=== PATIENT | female | born 1940 | race Caucasian/White ===

== ENCOUNTER → 2016-12-28 | Outpatient (REF) | payer MEDICARE | LOC: M LAB REF 08:30 | PROVIDERS: ATTEND Podiatrist | DX: E11.51 Type 2 diabetes mellitus with diabetic peripheral angiopathy without gangrene (principal) ==

== ENCOUNTER → 2017-03-21 | Outpatient (REF) | payer MEDICARE | LOC: M LAB REF 13:59 | PROVIDERS: ATTEND Internal Medicine Nephrology | DX: N39.0 Urinary tract infection, site not specified (principal) ==

== ENCOUNTER → 2017-03-23 | Outpatient (CLI) | payer MEDICARE ==
[2017-03-23 19:10] LABS: CALCIUM LEVEL 9.7 MG/DL (8.8-10.2); CREATININE FOR GFR 1.75 MG/DL (0.55-1.02); POTASSIUM SERUM 4.7 MEQ/L (3.5-5.1)
== END ==
LOC: M SMT 14:33
PROVIDERS: ATTEND Nurse Practitioner Women's Health
DX: R31.0 Gross hematuria (principal)
CPT/HCPCS: 36415; 80048; G0463

== ENCOUNTER → 2017-04-10 | Outpatient (REF) | payer MEDICARE | LOC: M SMT 17:11 | PROVIDERS: ATTEND Urology | DX: R31.0 Gross hematuria (principal) ==

== ENCOUNTER → 2017-11-16 | Outpatient (REF) | payer MEDICARE | LOC: M LAB REF 13:34 | DX: N39.0 Urinary tract infection, site not specified (principal) | CPT/HCPCS: 87086 ==

== ENCOUNTER → 2019-05-29 | Outpatient (REF) | payer MEDICARE | LOC: M LAB REF 13:35 | PROVIDERS: ATTEND Nurse Practitioner Family | DX: D50.9 Iron deficiency anemia, unspecified (principal); N18.3 Chronic kidney disease, stage 3 (moderate) ==

== ENCOUNTER → 2019-08-28 | Outpatient (REF) | payer MEDICARE | LOC: M LAB REF 16:33 | PROVIDERS: ATTEND Nurse Practitioner Family | DX: N39.0 Urinary tract infection, site not specified (principal) ==

== ENCOUNTER 2020-05-15 19:56 | Emergency (ER) | payer MEDICARE ==
[~2020-05-15] VITALS: Ht 157.5 cm; Wt 94.5 kg
[2020-05-15 23:05] VITALS: BP 160/90
== END 2020-05-15 23:11 | disposition home or self-care (01) ==
LOC: M ED 21:11
DX: F43.0 Acute stress reaction (principal); F33.9 Major depressive disorder, recurrent, unspecified; I11.0 Hypertensive heart disease with heart failure; E11.9 Type 2 diabetes mellitus without complications; J44.9 Chronic obstructive pulmonary disease, unspecified; Z88.0 Allergy status to penicillin

== ENCOUNTER → 2020-06-07 | Outpatient (CLI) | payer MEDICARE | LOC: M LABSMTC 10:26 | PROVIDERS: ATTEND Internal Medicine Cardiovascular Disease | DX: Z20.822 Contact with and (suspected) exposure to COVID-19 (principal) ==

== ENCOUNTER → 2020-06-29 | Outpatient (REF) | payer MEDICARE | LOC: M LAB REF 15:10 | PROVIDERS: ATTEND Podiatrist | DX: M79.672 Pain in left foot (principal); L03.039 Cellulitis of unspecified toe ==

== ENCOUNTER 2020-08-21 12:18 | Observation (INO) | payer MEDICARE ==
[~2020-08-21] VITALS: Ht 154.9 cm; Wt 86.5 kg
[2020-08-21] MEDS ORDERED: TRAD5TAB PO ×2 (12:45→14:43)
[2020-08-21] MEDS ORDERED: CLOP75TA2 PO (12:45)
[2020-08-21] MEDS ORDERED: WARF-58 (12:45)
[2020-08-21] MEDS ORDERED: CALC1CAP31 PO (12:45)
[2020-08-21] MEDS ORDERED: BUSP1TAB PO (12:45)
[2020-08-21] MEDS ORDERED: ALLO100T PO (12:45)
[2020-08-21] MEDS ORDERED: HUMA100I3 SC (12:45)
[2020-08-21] MEDS ORDERED: CARV6.25 PO (12:45)
[2020-08-21] MEDS ORDERED: LEVO100T5 PO (12:45)
[2020-08-21] MEDS ORDERED: OMEP-218 PO (12:45)
[2020-08-21] MEDS ORDERED: DOXY100C (12:45)
[2020-08-21] MEDS ORDERED: VALS40TA9 PO (12:45)
[2020-08-21] MEDS ORDERED: ATOR80TA59 PO (12:45)
[2020-08-21] MEDS ORDERED: PREG75CA2 PO (12:45)
[2020-08-21] MEDS ORDERED: BUME1TAB3 PO (12:45)
--- NOTE | 2020-08-21 12:50 | REP ---
INDICATION: left sided weakness. COMPARISON: Comparison is made with MRI images of the brain from August 27, 2013.. TECHNIQUE: Helical scanning is acquired. 5 mm axial images were reformatted. Coronal MPR images were generated. 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 Bone window settings demonstrate intact bony calvarium. Visualized paranasal sinuses are clear. Vascular calcification is noted heavily involving the carotid siphons bilaterally. On soft tissue window settings, there is moderate generalized volume loss. There are areas of old encephalomalacia in the right and left parietal and bilateral frontal lobes corresponding with areas of encephalomalacia on the August 27, 2013 MRI study. Through consistent with old infarcts. There is also a focal area of encephalomalacia in the right occipital lobe consistent with a lacunar infarct in this location also old. There is no evidence of intracranial hemorrhage. No definite acute infarct is seen. No extra-axial fluid collection or midline shift is observed. IMPRESSION: Diffuse atrophy vascular calcification and multiple old cortical infarcts as above. No acute infarct, hemorrhage, or mass seen.. <Electronically signed by Dennis Christian > 08/21/20 [id number]
[2020-08-21 13:09] LABS: BASO % 0.5 % (0.0-1.0); EOS # 0.2 10^3/uL (0.0-0.5); EOS % 2.4 % (0.0-3.0); HEMATOCRIT 39.9 % (36.0-47.0); HEMOGLOBIN 12.5 g/dl (12.0-15.5); LYMPH % 12.9 % (24.0-44.0); MEAN CORPUSCULAR HEMOGLOBIN 31.1 pg (27.0-33.0); MEAN CORPUSCULAR HGB CONC 31.3 g/dl (32.0-36.5); MEAN CORPUSCULAR VOLUME 99.3 fl (80.0-96.0); MONO # 0.7 10^3/uL (0.0-0.8); MONO % 8.5 % (2.0-8.0); NEUTROPHILS % 75.2 % (36.0-66.0); PLATELET COUNT, AUTOMATED 173 10^3/uL (150-450); RED BLOOD COUNT 4.02 10^6/uL (4.00-5.40)
[2020-08-21 13:21] LABS: PARTIAL THROMBOPLASTIN TIME 41.9 SECONDS (24.2-38.5); PROTHROMBIN TIME 63.5 SECONDS (12.5-14.3)
[2020-08-21 13:37] LABS: INR 7.21
[2020-08-21 13:43] LABS: ALBUMIN 3.3 GM/DL (3.2-5.2); BILIRUBIN,DIRECT 0.5 MG/DL (0.0-0.2); CALCIUM LEVEL 9.7 MG/DL (8.8-10.2); CK-MB VALUE MASS 2.1 NG/ML (<3.6); CREATININE FOR GFR 1.3 MG/DL (0.55-1.30); POTASSIUM SERUM 4.6 MEQ/L (3.5-5.1); THYROID STIMULATING HORMONE 5.34 uIU/ML (0.358-3.740); TOTAL PROTEIN 6.8 GM/DL (6.4-8.2); TROPONIN I 0.05 NG/ML (< 0.10)
--- NOTE | 2020-08-21 13:47 | REP ---
INDICATION: Altered Mental Status. COMPARISON: None. TECHNIQUE: Portable FINDINGS: The technique utilized in obtaining the radiograph has magnified the cardiac silhouette and accentuated the interstitial markings. There is cardiomegaly accentuated by technique. There has been previous median sternotomy. There is a dual chamber bipolar pacemaker device in place. There is a subtle diffuse increase in the interstitial markings throughout the lung masters with a haziness seen throughout the pulmonary vascularity. The osseous structures are intact. IMPRESSION: 1. Cardiomegaly. 2. Mild fibrotic changes with or without mild interstitial edema. The examination is portable and there are no priors for comparison. <Electronically signed by Shant Lynch > 08/21/20 [id number]
[2020-08-21] MEDS ORDERED: WARF4TAB52 PO ×2 (14:43→14:45)
[2020-08-21] MEDS ORDERED: ASPI81TA26 PO (14:45)
[2020-08-21] MEDS ORDERED: CARVedilol 6.25 MG TAB PO ONE (15:50)
[2020-08-21] MEDS ORDERED: VALSARTAN 40MG TABLET (DIOVAN) PO ONE (15:50)
[2020-08-21] MEDS ORDERED: MAALOX 30 ML SUSP *UDC PO PRN (16:15)
[2020-08-21] MEDS ORDERED: MOM 30ML SUSPENSION UDC PO PRN (16:15)
[2020-08-21] MEDS ORDERED: ACETAMINOPHEN TAB 650MG DOSE (2X325MG) PO PRN (16:15)
[2020-08-21] MEDS ORDERED: TOUJ1.2I SC (16:33)
[2020-08-21] MEDS ORDERED: GLUCAGON INJ 1MG VIAL SC PRN (16:50)
[2020-08-21] MEDS ORDERED: GLUCOSE 4GM CHEW TABLET PO PRN (16:50)
[2020-08-21] MEDS ORDERED: DEXTROSE 50% 50 ML SYRINGE IV PRN (16:50)
[2020-08-21] MEDS: HumaLOG INSULIN (NovoLOG) PER UNIT SC SCH (17:30)
--- NOTE | 2020-08-21 18:26 | HPEPDOC ---
[facility] Medical History & Physical Date of Admission Aug 21, 2020 Date of Service: Aug 21, 2020 Primary Care Physician: Akash Cm MD Attending Physician: SHARON TAVAREZ MD History and Physical CHIEF COMPLAINT: Episode of disorientation HISTORY OF PRESENT ILLNESS: Patient is a 80 y/o F with MHx of CAD (s/p multiple stents placements: done in 2014,2016, 2018, followed by Dr. Sotomayor at [facility] cardiology), Chronic A-fib (s/p pacemaker in 12/23/2014), systolic CHF (last echo 05/2020, LVEF 40-50%), CKD, DM2, HLD, CARTER (not on CPAP due to fitting issues, on 2L/min O2 28/11), valvular heart disease (s/p mitral valve replacement and tricuspid valve repair in 2014, on coumadin with INR goal of 2.5-3.5), hx of TIA and CVA, presenting to the ED via EMS c/o episode of disorientation. Per patient, around 1120am today, she was getting in the car and maneuvering her ambulatory oxygen tank between front passenger seats when she suddenly developed an acute episode disorientation/dizziness, prompting patient to call for her daughter. Her daughter reported that she then found patient sitting in the car confused, lips and face turning purple, slumping towards her left side, drooling and unable to respond to questions, prompting daughter to call for EMS. Daughter denied patient with loss of consciousness, shaking movement, loss of bowel or bladder control, fall or head injury during this episode. The episode lasted for 15 minutes and patient returned back to baseline spontaneously (foggy at first but fully recover). She was subsequently brought to ED for evaluation by EMS. Patient reported that she has had 2 other similar episodes over the past 2-3 yrs, most recently in 05/2020, pt was found by her daughter with similar symptoms of confusion, lips turning purple, drooling and unable to respond to questions in the bathroom, with spontaneous recover after approx. 15 minutes, she also sustained an injury in her L foot at that time. Pt did not seek emergency medical evaluation for her prior episodes because she returned to her baseline afterwards. Patient reported that she has no recollection of her episodes. Patient also denied recent fever, chills, CP, cough, palpitation, flu like symptoms, blood in sputum, urine or stool. She reported her BPs were usually in 130s/80s during clinic visits and denied dizziness upon getting up or standing. Of note, patient was recently started on 100mg doxycycline BID two weeks ago for her unhealed L big toe ulcer that was 2/2 injury she sustained during her 05/2020 confusion episode. Patient took Abx for 5 days but was then found with supratherapeutic INR of 8.0. Patient was instructed to stop her coumadin and took 1x5mg Vitamin K on 08/16. Patient reported her INR subsequently improved to 3 on re-evaluation. She has not taken any more Vitamin K since 08/16. Patient is followed by Dr. Sotomayor at [place] and has extensive cardiac history. Her last visit was 1 month ago. Her last nuclear stress test was in 04/2020 showing po ssible lateral wall ischemia with EF of 33%, prompting cardiac catheterization in 05/2020 which revealed findings unchanged from previous. She had an unremarkable pacemaker interrogated in 01/2020 and her most recent echo was in 05/2020 showing LVEF 40-50%. In the ED, patient was at her mental baseline. She was found with supratherapeutic INR (7.21) with negative trop and otherwise unremarkable w orkup. Her head CT revealed no acute infarct, hemorrhage or mass seen. Her CXR was unremarkable. EKG showed atrial sensed paced rhythm at rate of 60 bpm. However, patient was found hypertensive (182/114). Patient was subsequently admitted for her episode of disorientation. PAST MEDICAL HISTORY: 1. CAD (s/p multiple stents placements: done in 2014,2016, 2018) 2. Chronic A-fib (s/p pacemaker in 12/23/2014) 2. Systolic CHF 3. CKD 4. DM2 5. Hypothyroidism 6. Hyperlipidemia 7. Glaucoma 8. CARTER (Pt was told CPAP does not fit her face, unable to use) 9. Valvular heart disease (s/p mitral valve replacement and tricuspid valve repair) 10. PAD 11. Hx of TIA and CVA PAST SURGICAL HISTORY: 1. Coronary angioplasty and stents placements: done in 2014,2016, 2018 2. Pacemaker placement in 12/23/2014 (no defibrillator) 3. Mitral valve replacement and tricuspid valve repair in 2014 4. Cataract extraction 5. Multiple cardiac catheterization (last done in 05/2020) 6. Cholecystectomy 7. Hysterectomy 8. Renal stone surgery 9. Oral surgery 10. Appendectomy 11. Tubal ligation SOCIAL HISTORY: Employment: Retired Tobacco use: Nonsmoker ETOH: Denied Illicit drug use: Denied IV drug use: Denied FAMILY HISTORY: Father: Heart disease with heart surgery Mother: Breast cancer Siblings: 4 sister and 2 brothers Children: 7 children ALLERGIES: Please see below. REVIEW OF SYSTEMS: CONSTITUTIONAL: Denies chills, fever, weakness, fatigue, unexpected weight change, loss of appetite HEENT: Denies headaches, vision changes, hearing changes or throat pain, noted dizziness episode CARDIOVASCULAR: Denies chest pain, palpitations, edema RESPIRATORY: Denies wheezing, dyspnea, cough or hemoptysis GASTROINTESTINAL: Denies nausea, vomiting, abdominal pain, diarrhea, constipation, melena, hematochezia GENITAOURINARY: Denies dysuria, hematuria, urinary frequency, incontinence or retention. SKIN: Denies skin changes, rash, lesions, jaundice, bruising MUSCULOSKELETAL: Denies weakness, muscle or joint pain. NEUROLOGICAL: Denies focal weakness, numbness, tingling, change in Speech PSYCHIATRIC: Denies SI, HI, audio/visual hallucination HEMATOLOGICAL: Denies bruising, excessive bleeding, petechiae HOME MEDICATIONS: Please see below. PHYSICAL EXAMINATION: VITAL SIGNS: See below GENERAL APPEARANCE: Revealed cheerful 80 y/o F sitting upright on ED cot, alert & oriented x3, in no Acute Distress. HEENT Exam: Normocephalic and atraumatic, PERRLA, conjunctiva & lids normal, EOMI, without sclera icteric, mucous membr. moist/pink, pharynx normal, nares patent. NECK: Supple without lymphadenopathy, JVD, thyromegaly LUNGS: Clear to auscultation bilaterally with full breath sounds without rales, wheezing, and crackles. CARDIOVASCULAR: Regular rate and rhythm, normal S1 & S2 without gallops, murmurs, rubs. Pacemaker noted. ABDOMEN: Obese abdomen, soft, non-tender, non-distended with normal bowel sounds. No masses or ecchymosis or hepatosplenomegaly. EXTREMITIES: 1+ pulses in all extremities. No clubbing, cyanosis, edema, tenderness. Ulceration noted on right side of the Left great toe with scab and surrounding warmth and erythema without discharge. 1+ pitting edema distal to L mid tibia, 2+ pitting edema distal to R mid tibia. SKIN: Normal turgor and temperature. Multiple small ecchymosis throughout the body. MUSCULOSKELETAL: Strength +5/5 in all extremities without tenderness. NEUROLOGICAL: Normal speech with intact sensation, cranial nerves III-XII normal, negative pronator drift. PSYCHIATRIC: Normal mood and affect LABORATORY DATA: See below. IMAGIN. CT Head without contrast 08/21/2020 Reported IMPRESSION: Diffuse atrophy vascular calcification and multiple old cortical infarcts as above. No acute infarct, hemorrhage, or mass seen. 2. PORTABLE CHEST X-RAY 08/21/2020 Reported IMPRESSION: 1. Cardiomegaly. 2. Mild fibrotic changes with or without mild interstitial edema. The examination is portable and there are no priors for comparison. MICROBIOLOGY: Please see below. ASSESSMENT: Patient is a 80 y/o F with MHx of CAD (s/p multiple stents placements: done in 2014,2016, 2018, followed by Dr. Sotomayor at [facility] cardiology), Chronic A-fib (s/p pacemaker in 12/23/2014), systolic CHF (last echo 05/2020, LVEF 40-50%), CKD, DM2, HLD, CARTER (not on CPAP due to fitting issues, on 2L/min O2 28/11), valvular heart disease (s/p mitral valve replacement and tricuspid valve repair, on coumadin with INR goal of 2.5-3.5), hx of TIA and CVA, presenting to the ED via EMS c/o episode of disorientation. In the ED, patient was at her mental baseline. She was found with supratherapeutic INR (7.21) with negative trop and otherwise unremarkable workup. Her head CT revealed no acute infarct, hemorrhage or mass seen. Her CXR was unremarkable. EKG showed atrial sensed paced rhythm at rate of 60 bpm. However, patient was found hypertensive (182/114). Patient was subsequently admitted for her episode of disorientation. PLAN: 1. Episode of confusion/ loss of awareness - CVA/TIA vs. possible seizure vs. Hypertensive encephalopathy vs. orthostatic hypertension - Patient was confused for 15 minutes, unable to respond to questioning - Given reported lost of awareness and supratherapeutic INR in ED, unlikely CVA/TIA - Patient's CT head negative for acute infarct, hemorrhage or mass. Contraindicated for MRI due to pacemaker. - EEG to r/o possible seizure given patient was witnessed in a post-ictal state. - EKG in ED showed atrial sensed paced rhythm at rate of 60bpm - Pacemaker interrogated 08/21 and revealed "dual chamber VVI paced, no arrhythmia, battery good for 10 years". - Nursing order for orthostatic hypotension assessment placed, if orthostat assessment negative, will focus on controlling hypertension. - Control hypertension with home dose coreg, Bumex and valsartan. - Echo not indicated since patient's last echo was in 05/2020 with LVEF 40-50% - Check B1, B12, folate level, lipid panel and Hgb a1c 2. Supratherapeutic INR - INR 7.2 in ED - Hold coumadin - No obvious signs of bleeding at this time and INR <9, vitamin K not indicated - Repeat coag panel in am. 3. Hypertension - Patient hypertensive in ED 182/114 but has not taken her morning BP medication - Patient reported baseline BP at 130s/80s - Patient received 1 dose of coreg and valsartan in the ED. - Cont home dose bumex, coreg and valsartan 4. Hx of CAD and valvular heart disease - s/p multiple stents placements: done in 2014,2017, 2019 - s/p mitral valve replacement and tricuspid valve repair in 2014 - s/p pacemaker in 12/23/2014 - Discontinue ASA - Cont atorvastatin and plavix 5. Systolic heart failure - last echo 05/2020, LVEF 40-50% - Cont bumex 6. DM2 - Hold linagliptin - Check Hgb a1c - Cont levemir 36 units qhs - Cont SSI 7. L great toe ulcer - Does not appear infected - Hold doxycycline 8. Hypothyroidism - TSH elevated at 5.34 - Cont levothyroxine, may need recheck outpatient adjustment 9. CARTER - Patient not using CPAP due to fitting issue, has home O2 24/7 prn at 2L/min - Patient O2 saturation at 95% on RA - Cont to monitor DVT Prophylaxis: Patient's INR supratherapeutic, JEANA stocking Diet: 2 gram sodium diet, consistent carbohydrate Baseline ambulatory status: Ambulatory with walker Code status: In discussion with the patient, patient expressed that she does not want to be resuscitated or intubated. After explanation of the procedures with her, she continued to confirm DNR/DNI status. Vital Signs Vital Signs Date Time Temp Pulse Resp B/P (MAP) Pulse Ox O2 Delivery O2 Flow Rate FiO2 08/21/20 15:46 60 95 08/21/20 15:31 232/121 (158) 08/21/20 13:48 16 Room Air 08/21/20 12:49 97.2 Laboratory Data Labs 24H Laboratory Tests 2 08/21/20 12:59: Immature Granulocyte % (Auto) 0.5, Neutrophils (%) (Auto) 75.2H, Lymphocytes (%) (Auto) 12.9L, Monocytes (%) (Auto) 8.5H, Eosinophils (%) (Auto) 2.4, Basophils (%) (Auto) 0.5, Neutrophils # (Auto) 6.0, Lymphocytes # (Auto) 1.0L, Monocytes # (Auto) 0.7, Eosinophils # (Auto) 0.2, Basophils # (Auto) 0.0, Nucleated Red Blood Cells % (auto) 0.0, Prothrombin Time 63.5H, Prothromb Time International Ratio 7.21*H, Activated Partial Thromboplast Time 41.9H, Anion Gap 4L, Glomerular Filtration Rate 42.0, Calcium Level 9.7, Total Bilirubin 1.0, Direct Bilirubin 0.5H, Aspartate Amino Transf (AST/SGOT) 20, Alanine Aminotransferase (ALT/SGPT) 18, Alkaline Phosphatase 210H, Total Creatine Kinase 105, Creatine Kinase MB 2.1, Creatine Kinase MB Relative Index 2.00, Troponin I 0.05, Total Protein 6.8, Albumin 3.3, Albumin/Globulin Ratio 0.9L, Thyroid Stimulating Hormone (TSH) 5.340H CBC/BMP Laboratory Tests 08/21/20 12:59 Microbiology Microbiology 08/21/20 Respiratory Virus Panel (PCR) ([facility]) - Final, Complete Home Medications Scheduled Allopurinol (Allopurinol) 100 Mg Tablet, 100 MG PO BID Aspirin (Aspirin EC) 81 Mg Tablet.dr, 81 MG PO DAILY Atorvastatin Calcium (Atorvastatin Calcium) 80 Mg Tablet, 80 MG PO QHS Bumetanide (Bumetanide) 1 Mg Tablet, 1 MG PO BID Buspirone HCl (Buspirone HCl) 7.5 Mg Tablet, 7.5 MG PO BID Calcitriol (Calcitriol) 0.25 Mcg Capsule, 0.25 MG PO DAILY Carvedilol (Carvedilol) 6.25 Mg Tablet, 6.25 MG PO BID Clopidogrel Bisulfate (Clopidogrel) 75 Mg Tablet, 75 MG PO DAILY Insulin Lispro (Humalog) 100 Unit/1 Ml Cartridge, 45 UNITS SC QHS Levothyroxine Sodium (Levothyroxine Sodium) 100 Mcg Tablet, 100 MCG PO DAILY Linagliptin (Tradjenta) 5 Mg Tablet, 5 MG PO QHS Omeprazole (Omeprazole) 20 Mg Capsule.dr, 20 MG PO DAILY Pregabalin (Pregabalin) 75 Mg Capsule, 75 MG PO BID Valsartan (Valsartan) 40 Mg Tablet, 40 MG PO DAILY Warfarin Sodium (Warfarin Sodium) 1 Mg Tablet, 3 MG PO 5XW monday, ,mon, mon,monday Warfarin Sodium (Warfarin Sodium) 1 Mg Tablet, 1 MG PO 2XW monday and monday Allergies Coded Allergies: Penicillins (Verified Allergy, Intermediate, N/V, 05/15/20) aloe vera (Verified Allergy, Intermediate, N/V skin burning, 05/15/20) A-FIB/CHADSVASC A-FIB History Current/History of A-Fib/PAF?: Yes Current PO Anticoag Therapy: Yes GME ATTESTATION GME ATTESTATION My faculty preceptor for this patient encounter was physically present during the encounter and was fully available. All aspects of the patient interview, examination, medical decision making process, and medical care plan development were reviewed and approved by the faculty preceptor. The faculty preceptor is aware and concurs with the plan as stated in the body of this note and will attest to such by his/her cosignature. KATIA GRANT OMS-3 Aug 21, 2020 18:18
[2020-08-21 19:20] VITALS: BP 139/59
--- NOTE | 2020-08-21 19:57 | ECGEPIP ---
[facility] - ED Test Date: 2020-08-21 Pat Name: TIFFANY CASTILLO Department: Room: - Gender: Female Clinical Biochemist: SHELDON : 1940 Requested By: PASQUALE Mar Order Number: [id number] Reading MD: Eloisa Patterson Measurements Intervals Helen Rate: 60 P: MO: 360 QRS: -85 QRSD: 204 T: 105 QT: 580 QTc: 580 Interpretive Statements Atrial-sensed ventricular-paced rhythm with prolonged AV conduction No prior Electronically Signed on 08-21-2020 19:57:52 EDT by Eloisa Patterson
[2020-08-21] MEDS: allopurinoL 100 MG TAB PO SCH (20:30)
[2020-08-21] MEDS: BUMETANIDE 1 MG TAB PO SCH (20:30)
[2020-08-21] MEDS: PREGABALIN 75 MG CAP(LYRICA) PO SCH (20:30)
[2020-08-21] MEDS: busPIRone 5 MG TAB PO SCH (20:31)
[2020-08-21] MEDS ORDERED: ATORVASTATIN 20 MG TAB PO SCH (21:00)
[2020-08-21] MEDS ORDERED: LEVEMIR (INSULIN DETEMIR) 1 UNITS/0.01ML SC SCH (21:00)
[2020-08-21] MEDS ORDERED: HumaLOG INSULIN (NovoLOG) PER UNIT SC SCH (21:00)
[2020-08-21] MEDS: CARVedilol 6.25 MG TAB PO SCH (21:00)
[2020-08-22] VITALS: BP 169/63
[2020-08-22 04:00] VITALS: BP_SYST 147; BP_SYST 190; BP_DIAS 65; BP_DIAS 77
[2020-08-22] MEDS ORDERED: VALSARTAN 80 MG TAB (DIOVAN) PO ONE (05:25)
[2020-08-22] MEDS: CARVedilol 6.25 MG TAB PO SCH (05:30)
[2020-08-22] MEDS ORDERED: VALSARTAN 40MG TABLET (DIOVAN) PO ONE (05:50)
[2020-08-22] MEDS ORDERED: LEVOTHYROXINE 100MCG TABLET (0.1MG) PO SCH (06:00)
[2020-08-22 06:15] VITALS: BP 195/78
[2020-08-22 06:39] LABS: HEMATOCRIT 36.5 % (36.0-47.0); HEMOGLOBIN 11.5 g/dl (12.0-15.5); MEAN CORPUSCULAR HEMOGLOBIN 31.3 pg (27.0-33.0); MEAN CORPUSCULAR HGB CONC 31.5 g/dl (32.0-36.5); MEAN CORPUSCULAR VOLUME 99.5 fl (80.0-96.0); PLATELET COUNT, AUTOMATED 158 10^3/uL (150-450); RED BLOOD COUNT 3.67 10^6/uL (4.00-5.40); WHITE BLOOD COUNT 6.4 10^3/uL (4.0-10.0)
[2020-08-22 06:49] LABS: PROTHROMBIN TIME 66.8 SECONDS (12.5-14.3)
[2020-08-22 06:55] LABS: INR 7.7
[2020-08-22 06:58] LABS: HEMOGLOBIN A1c 8.4 %
[2020-08-22 07:01] LABS: ALBUMIN 3.1 GM/DL (3.2-5.2); BILIRUBIN,TOTAL 0.9 MG/DL (0.2-1.0); CALCIUM LEVEL 8.6 MG/DL (8.8-10.2); CHOLESTEROL RISK RATIO 3.062 (<5); CREATININE FOR GFR 1.22 MG/DL (0.55-1.30); GLOMERULAR FILTRATION RATE 45.1 (>32); MAGNESIUM LEVEL 2.1 MG/DL (1.8-2.4)
[2020-08-22 08:00] VITALS: BP 141/66
[2020-08-22] MEDS: HumaLOG INSULIN (NovoLOG) PER UNIT SC SCH ×2 (08:32→12:43)
[2020-08-22] MEDS: BUMETANIDE 1 MG TAB PO SCH (08:33)
[2020-08-22] MEDS: busPIRone 5 MG TAB PO SCH (08:33)
[2020-08-22] MEDS: allopurinoL 100 MG TAB PO SCH (08:34)
[2020-08-22] MEDS: PREGABALIN 75 MG CAP(LYRICA) PO SCH (08:34)
[2020-08-22] MEDS ORDERED: OMEPRAZOLE 20 MG CAP PO SCH (09:00)
[2020-08-22] MEDS ORDERED: CLOPIDOGREL 75 MG TAB PO SCH (09:00)
[2020-08-22] MEDS ORDERED: VALSARTAN 80 MG TAB (DIOVAN) PO SCH (09:00)
[2020-08-22] MEDS ORDERED: CALCITRIOL 0.25 MCG CAP (S0169) PO SCH (09:00)
[2020-08-22 12:00] VITALS: BP_SYST 119; BP_SYST 201; BP_DIAS 63; BP_DIAS 77
[2020-08-22 16:00] VITALS: BP 162/72
--- NOTE | 2020-08-22 18:54 | DS.PDOC ---
Discharge Summary General Date of Admission Aug 21, 2020 at 12:19 Date of Discharge 08/22/2020 Attending Physician: DARREL SEARS MD Discharge Summary PROCEDURES PERFORMED DURING STAY: None. ADMITTING DIAGNOSES: - Episode of confusion/loss of awareness. CAD (s/p multiple stents placements: done in 2014,2016, 2018) Chronic A-fib (s/p pacemaker in 12/23/2014) Systolic CHF CKD DM2 Hypothyroidism Hyperlipidemia Glaucoma CARTER (Pt was told CPAP does not fit her face, unable to use) Valvular heart disease (s/p mitral valve replacement and tricuspid valve rep air) . PAD Hx of TIA and CVA DISCHARGE DIAGNOSES: CAD (s/p multiple stents placements: done in 2014,2016, 2018) Chronic A-fib (s/p pacemaker in 12/23/2014) Systolic CHF CKD DM2 Hypothyroidism Hyperlipidemia Glaucoma CARTER (Pt was told CPAP does not fit her face, unable to use) Valvular heart disease (s/p mitral valve replacement and tricuspid valve repair) . PAD Hx of TIA and CVA COMPLICATIONS/CHIEF COMPLAINT: Altered Consciousness Elevated Blood Pressure/Inr. HISTORY OF PRESENT ILLNESS: Carina is an 80-year-old female with past medical history of CAD status post multiple stent placement done in 2014, 2016, 2018, chronic A. fib status post pacemaker in 2014, systolic CHF last echo 2020 ejection fraction of 40-50%, CK 80, DM 2, HDL, CARTER, not on CPAP 2-15 issues on 2 L of oxygen, valvular heart disease, status post mitral valve replacement and tricuspid valve repair on Coumadin INR goal of 2.5-3.5, history of TIA and CVA presented to ED via EMS complaining of episodes of disorientation. In the ED patient was at her mental baseline. She was found with supratherapeutic INR of 7.2 and negative control present otherwise unremarkable workup. Heart head CT revealed no acute infarct, hemorrhage or mass. Chest CT was unremarkable. EKG shows atrial paced rhythm at a rate of 60. However patient was found hypertensive 1 82 x 1 14 and was subsequently admitted. HOSPITAL COURSE: After admission she was given her blood pressure medication Coreg 6.25, valsartan 40 mg and her blood pressure dropped to 120/80 mmHg up sequentially her night dose of medications were held. As a result of which overnight she had an high blood pressure which was treated by her morning dose o f blood pressure medication at 6:30 AM and her blood pressure was normal throughout the day and was subsequently decided to discharge her as her blood pressure stabilized. DISCHARGE MEDICATIONS: Please see below. ALLERGIES: Please see below. PHYSICAL EXAMINATION ON DISCHARGE: VITAL SIGNS: Please see below. General: to let and oriented 3, no acute distress, sitting in bed. Cardiac: Regular rate and rhythm, normal S1 and S2 heard, no murmurs or gallops appreciated. She does have a pacemaker in place. Respiratory: Clear to auscultation bilaterally, normal bed sounds appreciated, no wheezes or rhonchi. Abdomen: Soft, nontender to palpation, normal bowel sounds appreciated. Extremities: 1+ pulses and lower extremity, no pedal edema, she does have an ulcer on left great toe with scab and no surrounding redness or erythema and without any discharge. Neurological: Cranial nerves lll to Xll normal, 4+ strength in bilateral extremities. LABORATORY DATA: Please see below. IMAGING: Head CT done on 08/21/2020 reported as: Diffuse atrophic vascular calcification and multiple old cortical infarcts. No acute infarct, hemorrhage or masses seen Chest x-ray done on 08/21/2020 reported as: Cardiomegaly, mild fibrotic changes with or without mild interstitial edema. The exam is portable and there is no prior for comparison. PROGNOSIS: Good ACTIVITY: As tolerated. DIET: Consistent carbohydrate diet, 2 g sodium diet DISCHARGE PLAN: DISPOSITION: Home DISCHARGE INSTRUCTIONS: 1. Please follow with PCP in one week. 2. Follow with PCP for check of INR and restarting of Coumadin and aspirin. ITEMS TO FOLLOWUP ON ON OUTPATIENT: 1. Follow with PCP in one week 2. Continue taking medication medications regularly DISCHARGE CONDITION: Stable. TIME SPENT ON DISCHARGE: Greater than 30 minutes. Vital Signs/I&Os Vital Signs Date Time Temp Pulse Resp B/P (MAP) Pulse Ox O2 Delivery O2 Flow Rate FiO2 08/22/20 08:00 97.3 60 17 141/66 (91) 99 Nasal Cannula 2.0 I&O- Last 24 Hours up to 6 AM 08/22/20 06:00 Intake Total 0 ml Output Total 400 ml Balance -400 ml Laboratory Data Labs 24H Laboratory Tests 2 08/21/20 12:59: Immature Granulocyte % (Auto) 0.5, Neutrophils (%) (Auto) 75.2H, Lymphocytes (%) (Auto) 12.9L, Monocytes (%) (Auto) 8.5H, Eosinophils (%) (Auto) 2.4, Basophils (%) (Auto) 0.5, Neutrophils # (Auto) 6.0, Lymphocytes # (Auto) 1.0L, Monocytes # (Auto) 0.7, Eosinophils # (Auto) 0.2, Basophils # (Auto) 0.0, Nucleated Red Blood Cells % (auto) 0.0, Prothrombin Time 63.5H, Prothromb Time International Ratio 7.21*H, Activated Partial Thromboplast Time 41.9H, Anion Gap 4L, Glomerular Filtration Rate 42.0, Calcium Level 9.7, Total Bilirubin 1.0, Direct Bilirubin 0.5H, Aspartate Amino Transf (AST/SGOT) 20, Alanine Aminotransferase (ALT/SGPT) 18, Alkaline Phosphatase 210H, Total Creatine Kinase 105, Creatine Kinase MB 2.1, Creatine Kinase MB Relative Index 2.00, Troponin I 0.05, Total Protein 6.8, Albumin 3.3, Albumin/Globulin Ratio 0.9L, Thyroid Stimulating Hormone (TSH) 5.340H 08/21/20 20:04: Bedside Glucose (Misc Panel) 157H 08/22/20 06:01: Nucleated Red Blood Cells % (auto) 0.0, Prothrombin Time 66.8H, Prothromb Time International Ratio 7.70*H, Anion Gap 2L, Glomerular Filtration Rate 45.1, Calcium Level 8.6L, Total Bilirubin 0.9, Aspartate Amino Transf (AST/SGOT) 25, Alanine Aminotransferase (ALT/SGPT) 20, Alkaline Phosphatase 204H, Total Protein 6.0L, Albumin 3.1L, Albumin/Globulin Ratio 1.1L, Estimated Mean Plasma Glucose 194H, Hemoglobin A1c 8.4, Magnesium Level 2.1, Triglycerides Level 91, Total Cholesterol 98, LDL Cholesterol 48, Non-HDL Cholesterol (LDL + VLDL) 66, Total HDL Cholesterol 32L, Cholesterol/HDL Ratio 3.062 08/22/20 12:24: Bedside Glucose (Misc Panel) 104 CBC/BMP Laboratory Tests 08/21/20 12:59 08/22/20 06:01 FSBS Laboratory Tests Test 08/21/20 20:04 08/22/20 12:24 Range/Units Bedside Glucose (Misc Panel) 157 104 83-110 MG/DL Microbiology Microbiology 08/21/20 Respiratory Virus Panel (PCR) ([facility]) - Final, Complete Discharge Medications Scheduled Allopurinol (Allopurinol) 100 Mg Tablet, 100 MG PO BID, (Reported) Atorvastatin Calcium (Atorvastatin Calcium) 80 Mg Tablet, 80 MG PO QHS, (Reported) Bumetanide (Bumetanide) 1 Mg Tablet, 1 MG PO BID, (Reported) Buspirone HCl (Buspirone HCl) 7.5 Mg Tablet, 7.5 MG PO BID, (Reported) Calcitriol (Calcitriol) 0.25 Mcg Capsule, 0.25 MG PO DAILY, (Reported) Carvedilol (Carvedilol) 6.25 Mg Tablet, 6.25 MG PO BID, (Reported) Clopidogrel Bisulfate (Clopidogrel) 75 Mg Tablet, 75 MG PO DAILY, (Reported) Insulin Glargine,Hum.rec.anlog (Toujeo Solostar) 300 Unit/1 Ml Insuln.pen, 45 UNIT SC QHS, (Reported) Levothyroxine Sodium (Levothyroxine Sodium) 100 Mcg Tablet, 100 MCG PO DAILY, (Reported) Linagliptin (Tradjenta) 5 Mg Tablet, 5 MG PO QHS, (Reported) Omeprazole (Omeprazole) 20 Mg Capsule.dr, 20 MG PO DAILY, (Reported) Pregabalin (Pregabalin) 75 Mg Capsule, 75 MG PO BID, (Reported) Valsartan (Valsartan) 40 Mg Tablet, 40 MG PO DAILY, (Reported) Allergies Coded Allergies: Penicillins (Verified Allergy, Intermediate, N/V, 05/15/20) aloe vera (Verified Allergy, Intermediate, N/V skin burning, 05/15/20) GME ATTESTATION My faculty preceptor for this patient encounter was physically present during the encounter and was fully available. All aspects of the patient interview, examination, medical decision making process, and medical care plan development were reviewed and approved by the faculty preceptor. The faculty preceptor is aware and concurs with the plan as stated in the body of this note and will attest to such by his/her cosignature. ATTENDING NOTE I personally examined the patient and the clinical data and discussed the plan as noted by the resident physician detailed above. We are now discharging Ms Dent and emphasized medication compliance especially as her BP was labile with any missed doses. Marisa Fenton MD Aug 22, 2020 12:49 DARREL SEARS MD Aug 23, 2020 07:38
[2020-08-23] MEDS ORDERED: VALSARTAN 40MG TABLET (DIOVAN) PO SCH (09:00)
[2020-08-24 15:00] LABS: FOLATE 20.1 NG/ML
== END 2020-08-22 17:16 | disposition home or self-care (01) ==
LOC: M ED 12:18 → M ED INP 12:19 → ENRESERV 18:32 → M PCU 19:14
PROVIDERS: ADMIT Internal Medicine; ATTEND Internal Medicine
DX: R41.0 Disorientation, unspecified (principal); I25.10 Atherosclerotic heart disease of native coronary artery without angina pectoris; Z98.61 Coronary angioplasty status; I48.20 Chronic atrial fibrillation, unspecified; Z95.0 Presence of cardiac pacemaker; I50.20 Unspecified systolic (congestive) heart failure; N18.9 Chronic kidney disease, unspecified; I11.9 Hypertensive heart disease without heart failure; E11.9 Type 2 diabetes mellitus without complications; E78.49 Other hyperlipidemia; G47.33 Obstructive sleep apnea (adult) (pediatric); I73.9 Peripheral vascular disease, unspecified; Z86.73 Personal history of transient ischemic attack (TIA), and cerebral infarction without residual deficits; Z88.0 Allergy status to penicillin; Z79.4 Long term (current) use of insulin; Z79.01 Long term (current) use of anticoagulants; Z79.899 Other long term (current) drug therapy
CPT/HCPCS: 36415; 70450; 71045; 80048; 80053; 80061; 80076; 82550; 82553; 82607; 82746; 83036; 83735; 84425; 84443; 84484; 85025; 85027; 85610; 85730; 86850; 86900; 86901; 87798; 93005; 93041; 94760; 99285; G0378

== ENCOUNTER → 2021-02-01 | Outpatient (REF) | payer MEDICARE ==
[~2021-02-01] MED LIST: ALLO100T PO; ASPI81TA26 PO; ATOR80TA59 PO; BUME1TAB3 PO; BUSP1TAB PO; CALC1CAP31 PO; CARV6.25 PO; CLOP75TA2 PO; DOXY100C3; HUMA100I3 SC; LEVO100T5 PO; OMEP-218 PO; PREG75CA2 PO; TOUJ1.2I SC; TRAD5TAB PO; VALS40TA9 PO; WARF-58; WARF4TAB52 PO
== END ==
LOC: M LAB REF 16:35
PROVIDERS: ATTEND Surgery
DX: T14.8XXA Other injury of unspecified body region, initial encounter (principal)
CPT/HCPCS: 11044; 11730; 88304; 88311; G0463

== ENCOUNTER 2021-02-20 20:41 | Inpatient (IN) | payer MEDICARE ==
[~2021-02-20] VITALS: Ht 154.9 cm; Wt 84.5 kg
--- OUTSIDE RECORDS SUMMARY | 2021-02-20 20:46 | CCD | Continuity of Care Document ---
Author Author [facility] Organization Unknown Address [address] [place] [id number] Phone [phone] Care Team Providers Care Home Economics Expert Name Role Phone Akash Cm M.D. AUTM [phone] NAN SOTOMAYOR M.D. PMariferCMarifer AUTM [phone] Akash Cm M.D. PCP [phone] Social History Type Date Description Comments Sex Unknown Allergies, Adverse Reactions, Alerts Active Allergies Reaction Severity Comments Date Penicillin V 04/16/2020 Aloe Vera [place] Extract 04/16 Adhesives 04/16/2020 Medications Active Medications SIG Qnty Indications Ordering Provide r Date Potassium Chloride ER 10Meq Capsul es ER take one tablet by mouth twice daily 60caps Nan araiza M.D[facility] 10/20/2020 Ciprofloxacin HCL 250mg Tablets take one tablet by mouth bid x 1 week 14tabs Nan Sotomayor M.D[facility] 10/13/2020 Doxycycline Hyclate 100mg Capsules Take One Tablet By Mouth Twice Daily 20caps Johnnie Brown, P.C. 08/06/2020 Levofloxacin 500mg Tablets 1 by mouth every day 5tabs Nan Sotomayor M.D[facility] 020 Culturelle Capsules 1 by mouth twice a day 30caps Nan Sotomayor M[facility] 020 Valsartan 40mg Tablets 1 by mouth every day 90taflor Sotomayor M.D., P.C. 020 Lumigan 0.01% Solution Tristian Ward DR Simbrinza 1-0.2% Suspension Instill 1 Drop In Each Eye Two Times A Day Unknown Ketorolac Tromethamine 0.5% Soluti on Instill 1 Drop Into The Right Eye Four Times A Day as Directed For 5 Days Unknown BD Pen Needle/Short/Ultra-Fine/31G X 8mm 31G X 8 mm Misc Use as Directed Two Times A Day Unknown Sana Mckenna Solostar 300Unit/ML Solution Pen-Inject Inject 45 Units Under The Skin Once Daily Unknown Atorvastatin Calcium 80mg Tablets Take One Tablet By Mouth Every Day AT Bedtime 90tabs Nan araiza M.D[facility] Bumetanide 1mg Tablets Take One Tablet By Mouth Twice A Day 180tabs Nan Sotomayor M[facility] Calcitriol 0.25mcg Capsules Take One Capsule By Mouth Every Day Unknown Carvedilol 6.25mg Tablets Take One Tablet By Mouth AT Bedtime 180tabs Nan Sotomayor M[facility] Clopidogrel Bisulfate 75mg Tablets Take One Tablet By Mouth Every Day 90tabs Nan Sotomayor M.D. , P.C[facility] Omeprazole 20mg Capsules Akash Hernandez M.D. Levothyroxine Sodium 100mcg Tablets Akash Cm M.D. Buspirone HCL 7.5mg Tablets [facility] Allopurinol 100mg Tablets Trish DockeryBUD Warfarin Sodium 1mg Tablets take 3 mg qd with 1 mg one day of the week only Akash Cm M.D. Pregabalin 75mg Capsules Sol Vera Medications Administered in Office Medication SIG Qnty Indications Ordering Provider Date Lexiscan Injection Nan Sotomayor M.D[facility] 04/09/2020 Technetium TC 99M Sestamibi Injection Nan Sotomayor M.D[facility] 04/09/2020 Technetium TC 99M Sestamibi Injection Nan Sotomayor M.D[facility] 07/25/2017 Technetium TC 99M Sestamibi Injection Nan Sotomayor M.D[facility] 10/07/2016 Vital Signs Date Vital Result Comment 12/14/2020 2:02pm Height 60 inches 5'0" Body Temperature 98.1 F BP Systolic 94 mmHg by palp BP Diastolic 48 mmHg by palp Heart Rate 60 /min O2 % BldC Oximetry 98 % O2@2 L Respiratory Rate 22 /min 11/19/2020 11:15am Height 60 inches 5'0" Body Temperature 97.0 F BP Systolic 105 mmHg BP Diastolic 43 mmHg Heart Rate 60 /min O2 % BldC Oximetry 96 % Results Test Acquired Date Facility Test Result H/L Range Note Laboratory test finding 10/13/2020 [facility] [address] [place] [address] [phone] Magnesium Serum 2.2 mg/dL 1.7 - 2.2 Comprehensive Metabolic Panel 10/13/2020 [facility] [address] [place] [address] [phone] Comprehensive Metabo (SEE NOTE) 1 Sodium 139 mEq/L 134 - 153 Potassium 4.4 mEq/L 3.6 - 5.0 Chloride 96 mEq/L Low 98 - 107 Co2 36 mEq/L High 22 - 30 Glucose 126 mg/dL High 70 - 99 BUN 26 mg/dL High 7 - 21 Creatinine 1.2 mg/dL 0.7 - 1.5 BUN/Creat 22 8 - 27 Total Protein 5.6 g/dL Low 6.3 - 8.2 Albumin 3.4 g/dL Low 3.9 - 5.0 Globulin 2.2 GM/DL Low 2.4 - 3.2 A/G Ratio 1.5 0.8 - 2.0 Calcium 8.7 mg/dL 8.4 - 10.2 Total Bili 0.9 mg/dL 0.2 - 1.3 Alkaline Phos 292 U/L High 38 - 126 Sgot/Ast 17 U/L 5 - 40 SGPT/Alt 12 U/L 7 - 56 Anion Gap 7.0 mmol/L Low 8.0 - 16.0 Age 80 yrs Non-Aa GFR 46 mL/min Afr Amer GFR >60 2 CBC W/Automated Diff 10/13/[address] [address] [phone] CBC W/Automated Diff (SEE NOTE) 3 WBC 8.6 10^3/uL 4.2 - 11.0 RBC 3.74 10^6/uL Low 4.20 - 5.40 Hemoglobin 11.7 g/dL Low 12.0 - 16.0 Hematocrit 35.7 % Low 37.0 - 47.0 MCV 95.5 fL 81.0 - 101 MCH 31.3 pg 27.0 - 34.0 MCHC 32.8 g/dL 31.0 - 36.0 RDW 16.5 % High 11.5 - 14.5 Platelets 171 10^3/uL 150 - 450 MPV 11.5 fL High 7.4 - 10.4 Neut 70.1 % 37.0 - 80.0 Lymph 12.8 % Low 25.0 - 40.0 Lamoure 13.5 % High 3.0 - 8.0 Eos 3.1 % 0.0 - 7.0 Baso 0.3 % 0.0 - 2.5 %Ig 0.2 % High 0.0 - 0.0 %NRBC 0.0 % 0.0 - 0.0 #Neut 6.04 10^3/uL 2.00 - 6.90 #Lymph 1.10 10^3/uL 0.60 - 3.40 #Lamoure 1.16 10^3/uL High 0.00 - 0.90 #Eos 0.27 10^3/uL 0.00 - 0.70 #Baso 0.03 10^3/uL 0.00 - 0.20 #Ig 0.02 10^3/uL 0.00 - 0.10 #NRBC 0.00 10^3/uL 0.00 - 0.00 Manual Diff SEE BELOW Segs 72 % 37 - 80 %Lymph 13 % Low 25 - 40 %Lamoure 14 % High 3 - 8 %Eos 1 % 0 - 7 RBC Morph NOT INDICATED Protime 10/13/[address] [address] [phone] Protime 19.6 seconds High 11.0 - 15.5 Inr 1.64 High 0.93 - 1.23 4 Protime 10/12/[address] [address] [phone] Protime 20.8 seconds High 11.0 - 15.5 Inr 1.76 High 0.93 - 1.23 5 Laboratory test finding 10/12/2020 [facility] [address] [place] [phone] Magnesium Serum 1.9 mg/dL 1.7 - 2.2 Comprehensive Metabolic Panel 10/12/2020 [facility] [address] [place] [phone] Comprehensive Metabo (SEE NOTE) 6 Sodium 140 mEq/L 134 - 153 Potassium 4.0 mEq/L 3.6 - 5.0 Chloride 98 mEq/L 98 - 107 Co2 36 mEq/L High 22 - 30 Glucose 51 mg/dL Low 70 - 99 BUN 24 mg/dL High 7 - 21 Creatinine 1.3 mg/dL 0.7 - 1.5 BUN/Creat 18 8 - 27 Total Protein 5.6 g/dL Low 6.3 - 8.2 Albumin 3.3 g/dL Low 3.9 - 5.0 Globulin 2.3 GM/DL Low 2.4 - 3.2 A/G Ratio 1.4 0.8 - 2.0 Calcium 8.4 mg/dL 8.4 - 10.2 Total Bili 1.0 mg/dL 0.2 - 1.3 Alkaline Phos 244 U/L High 38 - 126 Sgot/Ast 16 U/L 5 - 40 SGPT/Alt 11 U/L 7 - 56 Anion Gap 6.0 mmol/L Low 8.0 - 16.0 Age 80 yrs Non-Aa GFR 42 mL/min Afr Amer GFR >60 7 CBC W/Automated Diff 10/12/[address] [address] [phone] CBC W/Automated Diff (SEE NOTE) 8 WBC 8.1 10^3/uL 4.2 - 11.0 RBC 3.78 10^6/uL Low 4.20 - 5.40 Hemoglobin 11.7 g/dL Low 12.0 - 16.0 Hematocrit 35.8 % Low 37.0 - 47.0 MCV 94.7 fL 81.0 - 101 MCH 31.0 pg 27.0 - 34.0 MCHC 32.7 g/dL 31.0 - 36.0 RDW 16.4 % High 11.5 - 14.5 Platelets 170 10^3/uL 150 - 450 MPV 11.0 fL High 7.4 - 10.4 Neut 66.6 % 37.0 - 80.0 Lymph 15.8 % Low 25.0 - 40.0 Lamoure 13.1 % High 3.0 - 8.0 Eos 3.9 % 0.0 - 7.0 Baso 0.5 % 0.0 - 2.5 %Ig 0.1 % High 0.0 - 0.0 %NRBC 0.0 % 0.0 - 0.0 #Neut 5.41 10^3/uL 2.00 - 6.90 #Lymph 1.28 10^3/uL 0.60 - 3.40 #Lamoure 1.06 10^3/uL High 0.00 - 0.90 #Eos 0.32 10^3/uL 0.00 - 0.70 #Baso 0.04 10^3/uL 0.00 - 0.20 #Ig 0.01 10^3/uL 0.00 - 0.10 #NRBC 0.00 10^3/uL 0.00 - 0.00 Manual Diff SEE BELOW Segs 62 % 37 - 80 Band 0 % 0 - 5 %Lymph 26 % 25 - 40 %Lamoure 9 % High 3 - 8 %Eos 3 % 0 - 7 %Baso 0 % 0 - 2 RBC Morph NOT INDICATED Comprehensive Metabolic Panel 10/11/2020 [facility] [address] [place] [address] [phone] Comprehensive Metabo (SEE NOTE) 9 Sodium 143 mEq/L 134 - 153 Potassium 3.9 mEq/L 3.6 - 5.0 Chloride 97 mEq/L Low 98 - 107 Co2 37 mEq/L High 22 - 30 Glucose 133 mg/dL High 70 - 99 BUN 21 mg/dL 7 - 21 Creatinine 1.3 mg/dL 0.7 - 1.5 BUN/Creat 16 8 - 27 Total Protein 6.1 g/dL Low 6.3 - 8.2 Albumin 3.6 g/dL Low 3.9 - 5.0 Globulin 2.5 GM/DL 2.4 - 3.2 A/G Ratio 1.4 0.8 - 2.0 Calcium 8.3 mg/dL Low 8.4 - 10.2 Total Bili 1.0 mg/dL 0.2 - 1.3 Alkaline Phos 280 U/L High 38 - 126 Sgot/Ast 21 U/L 5 - 40 SGPT/Alt 14 U/L 7 - 56 Anion Gap 9.0 mmol/L 8.0 - 16.0 Age 80 yrs Non-Aa GFR 42 mL/min Afr Amer GFR >60 10 Laboratory test finding 10/11/2020 [facility] [address] [place] [address] [phone] Iron 31 g/dL Low 42 - 135 Laboratory test finding 10/11/2020 [facility] [address] [place] [address] [phone] Magnesium Serum 2.0 mg/dL 1.7 - 2.2 Protime 10/11/2020 [place] [address] [phone] Protime 23.4 seconds High 11.0 - 15.5 Inr 2.05 High 0.93 - 1.23 11 CBC W/Automated Diff 10/11/2020 [place] [address] [phone] CBC W/Automated Diff (SEE NOTE) 12 WBC 7.8 10^3/uL 4.2 - 11.0 RBC 3.93 10^6/uL Low 4.20 - 5.40 Hemoglobin 12.3 g/dL 12.0 - 16.0 Hematocrit 37.7 % 37.0 - 47.0 MCV 95.9 fL 81.0 - 101 MCH 31.3 pg 27.0 - 34.0 MCHC 32.6 g/dL 31.0 - 36.0 RDW 16.8 % High 11.5 - 14.5 Platelets 184 10^3/uL 150 - 450 MPV 10.8 fL High 7.4 - 10.4 Neut 69.8 % 37.0 - 80.0 Lymph 15.2 % Low 25.0 - 40.0 Lamoure 11.7 % High 3.0 - 8.0 Eos 2.8 % 0.0 - 7.0 Baso 0.4 % 0.0 - 2.5 %Ig 0.1 % High 0.0 - 0.0 %NRBC 0.0 % 0.0 - 0.0 #Neut 5.42 10^3/uL 2.00 - 6.90 #Lymph 1.18 10^3/uL 0.60 - 3.40 #Lamoure 0.91 10^3/uL High 0.00 - 0.90 #Eos 0.22 10^3/uL 0.00 - 0.70 #Baso 0.03 10^3/uL 0.00 - 0.20 #Ig 0.01 10^3/uL 0.00 - 0.10 #NRBC 0.00 10^3/uL 0.00 - 0.00 Manual Diff NOT INDICATED RBC Morph NOT INDICATED Protime 10/10/2020 [place] [address] [phone] Protime 29.4 seconds High 11.0 - 15.5 Inr 2.74 High 0.93 - 1.23 13 Laboratory test finding 10/10/2020 [place] [address] [phone] D-Dimer 2.91 ug/mL High 0.27 - 0.50 CBC W/Automated Diff 10/10/2020 [place] [address] [phone] CBC W/Automated Diff (SEE NOTE) 14 WBC 7.1 10^3/uL 4.2 - 11.0 RBC 3.83 10^6/uL Low 4.20 - 5.40 Hemoglobin 12.0 g/dL 12.0 - 16.0 Hematocrit 37.2 % 37.0 - 47.0 MCV 97.1 fL 81.0 - 101 MCH 31.3 pg 27.0 - 34.0 MCHC 32.3 g/dL 31.0 - 36.0 RDW 17.0 % High 11.5 - 14.5 Platelets 185 10^3/uL 150 - 450 MPV 11.7 fL High 7.4 - 10.4 Neut 67.7 % 37.0 - 80.0 Lymph 14.4 % Low 25.0 - 40.0 Lamoure 13.5 % High 3.0 - 8.0 Eos 4.0 % 0.0 - 7.0 Baso 0.3 % 0.0 - 2.5 %Ig 0.1 % High 0.0 - 0.0 %NRBC 0.0 % 0.0 - 0.0 #Neut 4.78 10^3/uL 2.00 - 6.90 #Lymph 1.02 10^3/uL 0.60 - 3.40 #Lamoure 0.95 10^3/uL High 0.00 - 0.90 #Eos 0.28 10^3/uL 0.00 - 0.70 #Baso 0.02 10^3/uL 0.00 - 0.20 #Ig 0.01 10^3/uL 0.00 - 0.10 #NRBC 0.00 10^3/uL 0.00 - 0.00 Manual Diff NOT INDICATED RBC Morph NOT INDICATED Laboratory test finding 10/10/2020 [facility] [address] [place], [place] [id number] [phone] Magnesium Serum 2.2 mg/dL 1.7 - 2.2 Vitamin B12 Serum 587 pg/mL 232 - 1245 Pro-BNP 7701 pg/mL High 0 - 450 Iron 33 g/dL Low 42 - 135 Comprehensive Metabolic Panel 10/10/2020 [facility] [address] [place] [address] [phone] Comprehensive Metabo (SEE NOTE) 15 Sodium 144 mEq/L 134 - 153 Potassium 3.4 mEq/L Low 3.6 - 5.0 Chloride 98 mEq/L 98 - 107 Co2 40 mEq/L High 22 - 30 Glucose 87 mg/dL 70 - 99 BUN 22 mg/dL High 7 - 21 Creatinine 1.3 mg/dL 0.7 - 1.5 BUN/Creat 17 8 - 27 Total Protein 5.5 g/dL Low 6.3 - 8.2 Albumin 3.3 g/dL Low 3.9 - 5.0 Globulin 2.2 GM/DL Low 2.4 - 3.2 A/G Ratio 1.5 0.8 - 2.0 Calcium 8.2 mg/dL Low 8.4 - 10.2 Total Bili 0.7 mg/dL 0.2 - 1.3 Alkaline Phos 247 U/L High 38 - 126 Sgot/Ast 21 U/L 5 - 40 SGPT/Alt 14 U/L 7 - 56 Anion Gap 6.0 mmol/L Low 8.0 - 16.0 Age 80 yrs Non-Aa GFR 42 mL/min Afr Amer GFR >60 16 Cve Panel 10/10/2020 [place] [address] [phone] Cve Panel (SEE NOTE) 17 Cholesterol 83 mg/dL Low 131 - 200 Triglycerides 72 mg/dL 35 - 160 HDL 30 mg/dL 29 - 86 LDL 45 mg/dL Low 65 - 175 Risk Factor 2.8 Low 3.2 - 4.4 LDL/HDL 1.50 1.47 - 3.22 18 Laboratory test finding 10/10/[address] [address] [phone] Troponin T 0.06 NG/ML 0.00 - 0.10 19 TSH Highly Sensitive 16.18 uIU/mL High 0.47 - 5.01 T4 - Free 0.90 ng/dL Low 0.93 - 1.70 Protime 10/09/2020 [place] [address] [phone] Protime 29.0 seconds High 11.0 - 15.5 Inr 2.69 High 0.93 - 1.23 20 Laboratory test finding 10/09/[address] [address] [phone] Magnesium Serum 2.2 mg/dL 1.7 - 2.2 Hgba1c 8.7 % High 4.4 - 6.1 21 Troponin T 0.05 NG/ML 0.00 - 0.10 22 Culture Urine 10/09/[address] [address] [phone] Culture Urine (SEE NOTE) 23 1 COMPREHENSIVE METABOLIC PANE L 2 Male GFR Interprentation 20-49 yrs >60 mL/min Normal 50-59 yrs >56 mL/min Normal 60-69 yrs >49 mL/min Normal 70-79yrs >42 mL/min Normal 80 and above >35 mL/min Normal Female GFR Interpretation 20-39 yrs >60 mL/min Normal 40-49 yrs >58 mL/min Normal 50-59 yrs >51 mL/min Normal 60-69 yrs >45 mL/min Normal 70-79 yrs >39 mL/min Normal 80 and above >32 mL/min Normal 3 COMPLETE BLOOD COUNT 4 \\BLDo\\INR INTERPRETATION\\BLD x\\ Therapeutic range for Coumadin and related oral anticoagulants. -International Normalized Ratio (INR): 2 .0 - 3.0 for Venous Thrombosis, Pulmonary Embolus, Tissue heart valves, Acute PA, Atrial Fibrillation, Valvular heart disease and recurrent Systemic Embolism. -International Normalized Ratio (INR): 2 .5 - 3.5 for Mechanical Prosthetic valve. 5 \\BLDo\\INR INTERPRETATION\\BLD x\\ Therapeutic range for Coumadin and related oral anticoagulants. -International Normalized Ratio (INR): 2 .0 - 3.0 for Venous Thrombosis, Pulmonary Embolus, Tissue heart valves, Acute PA, Atrial Fibrillation, Valvular heart disease and recurrent Systemic Embolism. -International Normalized Ratio (INR): 2 .5 - 3.5 for Mechanical Prosthetic valve. 6 COMPREHENSIVE METABOLIC PANE L 7 Male GFR Interprentation 20-49 yrs >60 mL/min Normal 50-59 yrs >56 mL/min Normal 60-69 yrs >49 mL/min Normal 70-79yrs >42 mL/min Normal 80 and above >35 mL/min Normal Female GFR Interpretation 20-39 yrs >60 mL/min Normal 40-49 yrs >58 mL/min Normal 50-59 yrs >51 mL/min Normal 60-69 yrs >45 mL/min Normal 70-79 yrs >39 mL/min Normal 80 and above >32 mL/min Normal 8 COMPLETE BLOOD COUNT 9 COMPREHENSIVE METABOLIC PANE L 10 Male GFR Interprentation 20-49 yrs >60 mL/min Normal 50-59 yrs >56 mL/min Normal 60-69 yrs >49 mL/min Normal 70-79yrs >42 mL/min Normal 80 and above >35 mL/min Normal Female GFR Interpretation 20-39 yrs >60 mL/min Normal 40-49 yrs >58 mL/min Normal 50-59 yrs >51 mL/min Normal 60-69 yrs >45 mL/min Normal 70-79 yrs >39 mL/min Normal 80 and above >32 mL/min Normal 11 \\BLDo\\INR INTERPRETATION\\BLD x\\ Therapeutic range for Coumadin and related oral anticoagulants. -International Normalized Ratio (INR): 2 .0 - 3.0 for Venous Thrombosis, Pulmonary Embolus, Tissue heart valves, Acute PA, Atrial Fibrillation, Valvular heart disease and recurrent Systemic Embolism. -International Normalized Ratio (INR): 2 .5 - 3.5 for Mechanical Prosthetic valve. 12 COMPLETE BLOOD COUNT 13 \\BLDo\\INR INTERPRETATION\\BLD x\\ Therapeutic range for Coumadin and related oral anticoagulants. -International Normalized Ratio (INR): 2 .0 - 3.0 for Venous Thrombosis, Pulmonary Embolus, Tissue heart valves, Acute PA, Atrial Fibrillation, Valvular heart disease and recurrent Systemic Embolism. -International Normalized Ratio (INR): 2 .5 - 3.5 for Mechanical Prosthetic valve. 14 COMPLETE BLOOD COUNT 15 COMPREHENSIVE METABOLIC PANE L 16 Male GFR Interprentation 20-49 yrs >60 mL/min Normal 50-59 yrs >56 mL/min Normal 60-69 yrs >49 mL/min Normal 70-79yrs >42 mL/min Normal 80 and above >35 mL/min Normal Female GFR Interpretation 20-39 yrs >60 mL/min Normal 40-49 yrs >58 mL/min Normal 50-59 yrs >51 mL/min Normal 60-69 yrs >45 mL/min Normal 70-79 yrs >39 mL/min Normal 80 and above >32 mL/min Normal 17 LIPID PANEL 18 CVE RISK CHOL/HDL LDL/HDL MEN: 1/2 AVERAGE 3.43 1.00 AVERAGE 4.97 3.55 2X AVERAGE 9.55 6.25 3X AVERAGE 23.99 7.99 WOMEN: 1/2 AVERAGE 3.27 1.47 AVERAGE 4.44 3.22 2X AVERAGE 7.05 5.03 3X AVERAGE 11.04 6.14 19 TROPONIN T 0.1 ng/ml Recommended as the clinical th reshold value for Troponin T. 20 \\BLDo\\INR INTERPRETATION\\BLD x\\ Therapeutic range for Coumadin and related oral anticoagulants. -International Normalized Ratio (INR): 2 .0 - 3.0 for Venous Thrombosis, Pulmonary Embolus, Tissue heart valves, Acute PA, Atrial Fibrillation, Valvular heart disease and recurrent Systemic Embolism. -International Normalized Ratio (INR): 2 .5 - 3.5 for Mechanical Prosthetic valve. 21 {A1] {HB] 22 TROPONIN T 0.1 ng/ml Recommended as the clinical th reshold value for Troponin T. 23 _CULTURE URINE_ ^$[id number] ^^[id number] $$714479 ^^527640 $$662985 $$699116 $$629490 $$144637 $$512725 $$792620 $$586577 $$780521 $$340086 $$464880 $$424779 $$478267 $$240922 $$575894 $$128907 $$264954 $$569605 $$256087 $$598813 $$062637 $$878817 $$075789 $$705312 ^^285120 $$809571 $$095964 $$595724 -- Continued on next page -- Patient: ANNA [place] Order: Page 2 Culture: CULTURE URINE Status: Final -- Continued on next page -- Patient: ANNA [place] Order: Page 2 Culture: CULTURE URINE Status: Prelim $$[id number] $$[id number] REPORTED DATE/TIME: 10/13/2020 14:07 Culture: CULTURE URINE Status: Final Isolate 1 Escherichia coli Flag: A . . . . . . .1 10,000-25,000 colony forming units per m L Cefazolin <=4 ug/mL Cefazolin with an KACI <=16 predicts susceptibility to the oral agents cefaclor, cefdinir, cefpodoxime, cefprozil, cefuroxime, cephalexin, and loracarbef when used for therapy of uncomplicated urinary tract infections due to E. coli, Klebsiella pneumoniae, and Proteus mirabilis. Previous result entered on 10/12/2020 07:27 ET Gram negative rods Urine Culture,Comprehensive: P1 Escherichia coli Flag: A Patient: ANNA [place] Order: [id number] Page 3 Culture: CULTURE URINE Status: Final ISOLATE 1 Escherichia coli Isolate 1 Antibiotic KACI Int Units ug/mL Amoxicillin/Clavulanic Acid S S . . . . . .20-8 Ampicillin S S . . . . . .28-1 Cefepime S S . . . . . .6644-9 Ceftriaxone S S . . . . . .141-2 Cefuroxime S S . . . . . .145-3 Ciprofloxacin S S . . . . . .185-9 Ertapenem S S . . . . . .63560-1 Gentamicin S S . . . . . .267-5 Imipenem S S . . . . . .279-0 Levofloxacin S S . . . . . .53531-6 Meropenem S S . . . . . .6652-2 Nitrofurantoin S S . . . . . .363-2 Piperacillin/Tazobactam S S . . . . . .412-7 Tetracycline S S . . . . . .496-0 Tobramycin S S . . . . . .508-2 Trimethoprim/Sulfa S S . . . . . .516-5 P1 Test performed by: [facility] #: [id number] [address] [place] [address] [phone] [facility] [phone] Curriculum Development Specialist : Sae Pena MD NPI #: Locker Room Manager : 10/12/20.XMT.SENT REF 10/13/20.XMT.SENT REF 10/13/20. .to MANUEL HERRMANN via mode m 10/13/20. .to NAUN MTZ via fax Procedures Date Code Description Status 12/14/2020 29330 Office/Outpatient Established Lo w MDM 20-29 Min Completed 12/14/2020 70500 Pacemaker Inerrogation Completed 11/19/2020 37782 Office/Outpatient Established Mo d MDM 30-39 Min Completed 10/20/2020 50611 Office/Outpatient Established Mo d MDM 30-39 Min Completed 10/20/2020 80903 EKG Completed 10/13/2020 94643 Hospital Disch MGMT Completed 10/12/2020 52415 Hospital Care Low Completed 10/11/2020 62150 Hospital Care Low Completed 10/10/2020 15188 Hospital Care Moderate Completed 10/09/2020 32808 Hospital Care Initial Level 2 Co mpleted 09/10/2020 84851 Office/Outpatient Established Lo w MDM 20-29 Min Completed 09/10/2020 87963 Pacemaker Inerrogation Completed 08/06/2020 73044 Office/Outpatient Established Mo d MDM 30-39 Min Completed 07/15/2020 94703 Office/Outpatient Established Mo d MDM 30-39 Min Completed 07/15/2020 07112 EKG Completed Encounters Type Date Location Provider Dx Diagnosis Office Visit 12/14/2020 1:30p [facility] I11.9 Hypertensive heart disease without heart failure E11.9 Type 2 diabetes mellitus wit hout complications I95.9 Hypotension, unspecified Z95.0 Presence of cardiac pacemake r Office Visit 11/19/2020 11:15a [facility] I11.9 Hypertensive heart disease without heart failure E10.9 Type 1 diabetes mellitus wit hout complications I50.20 Unspecified systolic (conges tive) heart failure I34.0 Nonrheumatic mitral (valve) insufficiency Office Visit 10/20/2020 1:15p [facility] I50.20 Unspecified systolic (congestive) heart failure I48.0 Paroxysmal atrial fibrillati on I11.9 Hypertensive heart disease w ithout heart failure I49.49 Other premature depolarizati on Office Visit 09/10/2020 1:30p [facility] I11.9 Hypertensive heart disease without heart failure I48.0 Paroxysmal atrial fibrillati on G45.9 Transient cerebral ischemic attack, unspecified Z95.0 Presence of cardiac pacemake r Office Visit 08/06/2020 11:30a [facility] 466.0 Bronchitis Acute I48.0 Paroxysmal atrial fibrillati on E10.9 Type 1 diabetes mellitus wit hout complications I11.9 Hypertensive heart disease w [facility] heart failure Office Visit 07/15/2020 11:30a [facility] I48.0 Paroxysmal atrial fibrillation E10.9 Type 1 diabetes mellitus wit hout complications I11.9 Hypertensive heart disease w [facility] heart failure I50.20 Unspecified systolic (conges tive) heart failure I49.49 Other premature depolarizati on Assessments Date Code Description Provider 12/14/2020 I11.9 Hypertensive heart disease witho ut heart failure [facility] 12/14/2020 E11.9 Type 2 diabetes mellitus without complications [facility] 12/14/2020 I95.9 Hypotension, unspecified [facility] puentes [facility] 12/14/2020 Z95.0 Presence of cardiac pacemaker Mi susan [facility] 11/19/2020 I11.9 Hypertensive heart disease witho ut heart failure [facility] 11/19/2020 E10.9 Type 1 diabetes mellitus without complications [facility] 11/19/2020 I50.20 Unspecified systolic (congestive ) heart failure [facility] 11/19/2020 I34.0 Nonrheumatic mitral (valve) insu fficiency [facility] 10/20/2020 I50.20 Unspecified systolic (congestive ) heart failure [facility] 10/20/2020 I48.0 Paroxysmal atrial fibrillation Love [facility] 10/20/2020 I11.9 Hypertensive heart disease witho ut heart failure Nan [facility] 10/20/2020 I49.49 Other premature depolarization Love [facility] 10/13/2020 I50.20 Unspecified systolic (congestive ) heart failure Nan [facility] 10/13/2020 E11.9 Type 2 diabetes mellitus without complications Nan [facility]or [facility] 10/13/2020 I10 Essential (primary) hypertension Nan [facility]or [facility] 10/13/2020 I34.0 Nonrheumatic mitral (valve) insu fficiency Nan [facility]otomayor [facility] 10/12/2020 I50.20 Unspecified systolic (congestive ) heart failure Nan [facility]otomayor [facility] 10/12/2020 E11.9 Type 2 diabetes mellitus without complications Nan [facility]otomayor [facility] 10/12/2020 I10 Essential (primary) hypertension Nan [facility]otomayor [facility] 10/12/2020 I34.0 Nonrheumatic mitral (valve) insu fficiency Nan [facility]otomayor [facility] 10/11/2020 I50.20 Unspecified systolic (congestive ) heart failure Nan [facility] 10/11/2020 E11.9 Type 2 diabetes mellitus without complications Nan Sotomayor [facility] 10/11/2020 I10 Essential (primary) hypertension Nan Sotomayor [facility] 10/11/2020 I34.0 Nonrheumatic mitral (valve) insu fficiency Nan [facility]otomayor [facility] 10/10/2020 I50.20 Unspecified systolic (congestive ) heart failure Nan [facility] 10/10/2020 E11.9 Type 2 diabetes mellitus without complications Nan [facility]otomayor [facility] 10/10/2020 I10 Essential (primary) hypertension Nan Sotomayor [facility] 10/10/2020 I34.0 Nonrheumatic mitral (valve) insu fficiency Nan [facility]otomayor [facility] 10/09/2020 I50.20 Unspecified systolic (congestive ) heart failure Nan [facility]or [facility] 10/09/2020 E11.9 Type 2 diabetes mellitus without complications Nan Sotomayor [facility] 10/09/2020 I10 Essential (primary) hypertension Nan Sotomayor [facility] 10/09/2020 I34.0 Nonrheumatic mitral (valve) insu fficiency Nan [facility]or [facility] 09/10/2020 I11.9 Hypertensive heart disease witho ma heart failure Nan [facility]or [facility] 09/10/2020 I48.0 Paroxysmal atrial fibrillation Love Sotomayor [facility] 09/10/2020 G45.9 Transient cerebral ischemic juan antonio ck, unspecified Nan [facility]otomayor M[facility] 09/10/2020 Z95.0 Presence of cardiac pacemaker Mi susan Sotomayor M[facility] 08/06/2020 466.0 Bronchitis Acute Love [facility] 08/06/2020 I48.0 Paroxysmal atrial fibrillation [facility] 08/06/2020 E10.9 Type 1 diabetes mellitus without complications Nan [facility] 08/06/2020 I11.9 Hypertensive heart disease witho ma heart failure [facility] 07/15/2020 I48.0 Paroxysmal atrial fibrillation [facility] 07/15/2020 E10.9 Type 1 diabetes mellitus without complications [facility] 07/15/2020 I11.9 Hypertensive heart disease witho ut heart failure [facility] 07/15/2020 I50.20 Unspecified systolic (congestive ) heart failure [facility] 07/15/2020 I49.49 Other premature depolarization M maurilio [facility] Plan of Treatment Future Appointment(s):* 03/16/2021 1:30 pm - [facility] at [facility]
--- OUTSIDE RECORDS SUMMARY | 2021-02-20 20:46 | CCD ---
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 L97.524 Active confirmed [id number] ALLERGIES Allergen (clinical drug ingredient) Drug/Non Drug Allergy do cumented on EMR Reaction Allergy Type Onset Date Status Penicillin (For Allergies Use Only) Unknown Drug Allerg y Active NASID Unknown Non Drug Allergy Active Motrin Unknown Drug Allergy Active Aloe Unknown Drug Allergy Active Sulfa (for allergy use only) Unknown Drug Allergy Active ENCOUNTERS from 1940 to 2021-02-16 Encounter Location Date Provider Diagnosis [facility] [address] [facility] [phone] [place] [address] Feb, Jayro Cooper Atherosclerosis of [place] of left leg with ulceration of unspecified site I70.249 ; Non-pressure chronic ulcer of other part of left foot with necrosis of bone L97.524 and Tinea unguium B35.1 IMMUNIZATIONS No Information SOCIAL HISTORY Tobacco Use: Social History Observation Description Date Details (start date - stop date) Never Smoker Sex Assigned At : Social History Observation Description Sex Assigned At Unknown Language: Question Answer Notes Languages spoken: Chinese Presybeterian: Question Answer Notes Presybeterian No amish beliefs that would impact health care. Sexual Hx: Question Answer Notes Had sex in the last 12 months (vaginal, oral, or anal)? No LMP: hyster Have you ever had an STD? No Alcohol Screening: Question Answer Notes Did you have a drink containing alcohol in the past year? No Points 0 Interpretation Negative Tobacco Use: Question Answer Notes Are you a: never smoker REASON FOR REFERRAL No Information VITAL SIGNS Weight 189 lbs Feb, Weight-kg 85.73 kg Feb, Height 61 in Feb, BMI 35.71 kg/m2 Feb, Heart Rate 68 /min Feb, Respiratory Rate 20 /min Feb, Temperature 97.8 degrees Fahrenheit Feb, Oximetry 97% ON 2 L Feb, Blood pressure systolic 146 mm Hg Feb, Blood pressure diastolic 57 mm Hg Feb, MEDICATIONS Medication SIG (Take, Route, Frequency, Duration) Notes Start Da te End Date Status Albuterol Sulfate (2.5 MG/3ML) 0.083% 3 ml Inhalation Three times a d ay Active Vitamin C 500 MG Orally Active Plavix 75 MG 1 tablet Orally Once a day Active Potassium Chloride ER 10 MEQ 1 tablet with food Orally Twice a day Active Lumigan 0.01 % 1 drop into affected eye in the evening Ophthalm ic Once a day Active Ferrous Sulfate 324 (65 Fe) MG 1 tablet Orally Once a day Active Bumetanide 2 MG 1 tablet Orally Once a day Active Lyrica 75 MG 1 capsule Orally Twice a day Active Calcium 600-200 MG-UNIT Orally A ctive busPIRone HCl 7.5 MG 1 tablet Orally Twice a day Active Doxycycline Monohydrate 100 MG 1 capsule Orally every 12 hrs Active Tradjenta 5 MG 1 tablet Orally Once a day Active Omeprazole 20 MG 1 capsule Orally Once a day Active Lipitor 20 MG 1 tablet Orally Once a day Active Calcitriol 0.25 MCG 1 capsule Orally Once a day Active Co Q 10 100 MG 1 capsule with a meal Orally Once a day Active Vitamin D 1000 UNIT 1 tablet Orally Once a day Active ProAir HFA 108 (90 Base) mcg/act 2 puffs as needed Inhalation qid prn Active Toujeo SoloStar 300 UNIT/ML as directed Subcutaneous Active Carvedilol 6.25 MG Orally Active Valsartan 40 MG 1 tablet Orally Twice a day for 30 day(s) Active Warfarin Sodium 3 MG 1 tablet Orally Once a day for 30 day(s) Active Levothyroxine Sodium 100 MCG 1 tablet on an empty stom ach in the morning Orally Once a day Active Aspirin 81 MG 1 tablet Orally Once a day for 30 day(s) Active Nitrostat 0.4 MG Sublingual Active Allopurinol 100 MG 1 tablet Orally Once a day Active PROCEDURES from 1940 to 2021-02-16 Procedure Date Ordered Result Body Site Med: Cadexomer Iodine gel topical IODOSORB 10gm 2021-02-10 N/A Medication: 4% Lidocaine topical cream (Anecream) 5gm 2021-02-10 N/A RESULTS No Results REASON FOR VISIT LLE Wound MEDICAL (GENERAL) HISTORY Type Description Date Medical History chronic a-fib Medical History gout Medical History CHF Medical History HTN Medical History HAS PACEMAKER Medical History SPINAL STENOSIS Medical History HEARING LOSS Medical History CHRONIC KIDNEY DISEASE Medical History PVD Medical History DM Medical History SLEEP APNEA Medical History OA Surgical History TUBAL LIGATION 1970 Surgical History HYSTER Surgical History GALLLADDER REMOVED Surgical History BUNIONECTOMY Surgical History REPAIR OF ASD Surgical History MV REPLACEMENT Surgical History pace maker Surgical History Cystoscopy 04/10/17 Hospitalization History SURGERY RELATED Hospitalization History pneumonia/fluid build [facility] [place] No Information Health Concerns No Information MEDICAL EQUIPMENT No Information MENTAL STATUS No Information FUNCTIONAL STATUS No Information ASSESSMENTS Encounter Date Diagnosis Assessment Notes Treatment Notes Treatm ent Clinical Notes Feb, Atherosclerosis of [place] of left leg with ulceration of unspecified site (ICD-10 - I70.249) Feb, 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 (ICD-10 - L97.524) Feb, Tinea unguium (ICD-10 - B35.1) PLAN OF TREATMENT Next Appt Details 10 days Reason: Provider Name:Jayro Raglandjake, 08:45:00 AM, [address], , [place], [address], Insurance Providers Payer Name Payer Address Payer Phone Insured Name Patient Relati onship to Insured Coverage Start Date Coverage End Date [facility] [employer]IONS [facility] CLAIM DIV [address] [facility] [id number] TIFFANY CASTILLO MEDICARE Part A and B [address] [facility] [id number] [phone] TIFFANY CASTILLO self
--- OUTSIDE RECORDS SUMMARY | 2021-02-20 20:46 | CCD | Continuity of Care Document ---
Author Author Joy LOPEZ MD Organization Unknown Address [address] [place] [id number] Phone [phone] Care Team Providers Care Data Processing Specialist Name Role Phone Bolivar Sotomayor M.D. AUTM [phone] Akash Cm D.O. AUTM [phone] [facility] Care Everywhere AUTM Problems Active Problems Provider Date Carotid artery occlusion Bandar Grigsby M.D. Onset: 08/26/19 11 Cerebrovascular disease Bandar Grigsby M.D. Onset: 1 Peripheral vascular disease Bandar Grigsby M.D. Onset: 08/25 Sleep disorder Onset: 10/21/2011 Coronary arteriosclerosis Onset: 013 Abnormal results of cardiovascular function studies Onset: 08/08/2017 Acute on chronic systolic heart failure Onset: 11/09/2016 Body mass index 40+ - severely obese Ons et: 01/05/2017 Carotid artery occlusion Onset: 11/29/19 15 Cerebrovascular accident Onset: 12/18/19 21 Chronic kidney disease Onset: 12/17/2020 Note: Overview: renal calculi Chronic kidney disease stage 3 Onset: Congestive heart failure Onset: 01/07/20 17 Note: Overview: acute on chronic left an d right systolic and diastolic CHF Coronary arteriosclerosis Onset: 021 Coronary arteriosclerosis Onset: 015 Diabetes mellitus Onset: 12/17/2020 Note: Overview: Type 2, insulin requirin g Essential hypertension Onset: 12/17/2020 H/O: rheumatic fever Onset: 11/28/2014 Hearing loss Onset: 12/17/2020 Heart valve disorder Onset: 01/06/2017 Note: Overview: Mitral stenosis, aortic stenosis Hypertensive disorder Onset: 01/06/2017 Hypothyroidism Onset: 12/17/2020 Intermittent claudication Onset: 015 Long-term current use of anticoagulant O nset: 12/17/2020 Note: Overview: coumadin Mitral valve regurgitation Onset: 2014 Non-rheumatic mitral valve stenosis Onse t: 09/01/2017 Osteoarthritis Onset: 12/17/2020 Peripheral arterial disease Onset: 12/17 Peripheral vascular disease Onset: 01/06 Pulmonary hypertension Onset: 01/06/2017 Sciatica Onset: 11/28/2014 Sleep apnea Onset: 12/17/2020 Transient cerebral ischemia Onset: 01/05 Trauma and postoperative pulmonary insufficiency Onset: 03/27/2015 Urinary incontinence Onset: 12/17/2020 Social History Type Date Description Comments Sex Unknown ETOH Use Denies alcohol use Tobacco Use Reviewed: 01/22/21 Patient has never smoked Smoking Status Reviewed: 01/22/21 Patient has never smoked Allergies and adverse reactions Active Allergies Criticality Reaction | Severity Comments Date Penicillin Unable to assess criticality Nausea and Vomiting 10/14/2009 Aloe Unable to assess criticality Nausea and Vomiting 10/21/2011 Penicillins Unable to assess criticality Nausea Only 12/22/2020 Medications Active Medications SIG Qnty Indications Ordering Provide r Date Doxycycline Hyclate 100mg Capsules take one tab twice daily for 10 days 20caps L97.524 Johnnie Marshall 2021 Oxycodone HCL 5mg Tablets Take 1 tablet (5 mg total) by mouth every 4 (four) hours as needed Max Daily Amount: 30 mg 30tabs Unknown 12/19/2020 Hydrocodone-Acetaminophen 5-325mg Tablets 1 tablet by mouth every 4 hours as needed for pain Reference #:[id number] 30tabs Johnnie Lopez M.D. 12/15/2020 Levothyroxine Sodium 88mcg Tablets qd Bandar Grigsby M.D. 2016 Bumetanide 1mg Tablets Take 1 mg by mouth 2 (two) times a day Unknown Buspirone HCL 7.5mg Tablets Take 7.5 mg by mouth 2 (two) times a day Unknown Potassium Chloride Jaky ER 10Meq Tablets ER Take 10 mEq by mouth 2 (two) times a day Unknown Valsartan 40mg Tablets Take 40 mg by mouth daily Unknown Coenzyme Q10 100mg Capsules Take 1 mg by mouth daily Unknown Carvedilol 6.25mg Tablets Take 6.25 mg by mouth once daily Unknown Aspirin Ec Low Dose 81mg Tablets D R Take 81 mg by mouth daily Unknown Albuterol Sulfate (2 .5mg/3ML) 0.083% Nebulizer Take 2.5 mg by nebulization every 6 (six ) hours as needed for shortness of breath Unknown Clopidogrel Bisulfate 75mg Tablets Take 75 mg by mouth daily Unknown Oyster Shell Calcium/D 254-331mi-Yuzt Tablets Take 1 tablet by mouth 2 (two) times a day Unknown Calcitriol 0.25mcg Capsules Take 0.25 mcg by mouth daily Unknown Warfarin Sodium 3mg Tablets Take 3 mg by mouth 5 (five) times a week 5 times weekly on Monday, Monday, Monday, Monday, and Monday Unknown Ascorbic Acid 500mg Tablets Take 500 mg by mouth daily Unknown Nitroglycerin 0.4mg Tablets Sub Place 0.4 mg under the tongue every 5 (five) minutes as needed for chest pain Unknown Allopurinol 100mg Tablets Take 100 mg by mouth 2 (two) times a day Unknown Pregabalin 75mg Capsules Take 75 mg by mouth 2 (two) times a day Unknown [facility] D3 25mcg (1000 Ut) Capsules Take 2,000 Units by mouth daily Unknown Lumigan 0.01% Solution Administer 1 drop to both eyes nightly Unknown Quetiapine Fumarate 25mg Tablets bedtime as needed Unknown Acetaminophen 325mg Tablets take 2 tablets (650 mg total) by mouth every 4 (four) hours as needed Unknown Sana Hart 300U nit/ML Solution Pen-Inject Inject 40 Units Under The Skin Once Daily Unknown Omeprazole 20mg Capsules DR e very day Unknown Vitamin C 500mg Tablets 1 by mouth every day Unknown Vitamin D-3 2000Units Capsules 1 by mouth every day Unknown Atorvastatin Calcium 80mg Tablets every day Unknown Ferrous Gluconate 324(37.5Fe) mg T ablets 1 tab by mouth twice a day Unknown 000 Tradjenta 5mg Tablets every d ay Unknown Lyrica 75mg Capsules twice a day Unknown History Medications Amoxicillin/Clavulanate Potassium 875-125mg Tablets Take 1 tablet by mouth 2 (two) times a day for 10 days 40tabs Unknown 12/19/2020 - 01/19/2021 Doxycycline Hyclate 100mg Tablets 1 tab by mouth twice a day 14tabs Bandar Grigsby M.D. 11/23/2020 - 01/19/2021 Immunizations CPT Code Status Date Vaccine Lot # [id number] Given 01/06/2015 Influenza Virus Vaccine, Quadrivalent, Split, Preservative Free [id number] Given 02/05/2011 Pneumococcal Vaccine 2Yrs Or Older Vital Signs Date Vital Result Comment 2021 9:34am BP Systolic Left Arm 125 mmHg BP Diastolic Left Arm 60 mmHg Heart Rate 64 /min Height 61 inches 5'1" Weight 180.00 lb Weight 81.648 kg BMI (Body Mass Index) 34.0 kg/m2 12/19/2020 3:03pm Heart Rate 60 /min Body Temperature 98.8 F Respiratory Rate 18 /min O2 % BldC Oximetry 99 % Results Test Acquired Date Facility Test Result H/L Range Note Poct glucose 12/19/2020 N2N/CCD Import Glucose, Poc 180 mg/dL High 70 - 99 1 Protime-Inr 12/19/2020 N2N/CCD Import Protime 24.6 s High 9.20 - 11.90 Inr 2.47 2 BMP 12/19/2020 N2N/CCD Import Sodium 142 mmol/L 136 - 145 Potassium 4.2 mmol/L 3.6 - 5.2 Chloride 105 mmol/L 100 - 108 Co2 35 mmol/L High 22 - 31 Anion Gap 2 mmol/L Low 7 - 16 Urea nitrogen 25 mg/dL High 7 - 24 Creatinine 1.43 mg/dL High 0.60 - 1.00 BUN/Creatinine Ratio 17.5 10.0 - 20.0 Ratio Glucose 96 mg/dL 70 - 99 Calcium 8.9 mg/dL 8.4 - 10.2 GFR MDRD Non Af Amer 35 Low >59 ml/min/1.73m2 GFR MDRD Af Amer 43 Low >59 ml/min/1.73m2 Glom Filt Rate, Est See Notes 3 CBC 12/19/2020 N2N/CCD Import WBC 7.2 10*3/uL 4.10 - 11.00 RBC 3.52 10*6/uL Low 4.00 - 5.40 Hemoglobin 10.7 g/dL Low 12.0 - 16.0 Hematocrit 32.1 % Low 36.00 - 47.00 MCV 91.0 fL 80.0 - 95.0 MCH 30.5 pg 27.0 - 32.0 MCHC 33.5 g/dL 32 - 36 RDW 19.0 % High 10.5 - 14.5 Platelets 154 10*3/uL 150 - 450 MPV 9.6 fL 7.1 - 10.7 Type and screen 12/18/2020 N2N/CCD Import Specimen Expiration Date 12/21/2020 Patient Abo/Rh B Positive Antibody Screen Negative Testing site Performed AT [address] [place] [address] Blood bank comment See Notes 4 aPTT 12/18/2020 N2N/CCD Import aPTT 130.9 s Critical high 22.0 - 34.3 5 Covid/Flu AB/RSV PCR 12/17/2020 N2N/CCD Import Specimen Description Nasopharyngeal Influenza A Negative Negative Influenza B Negative Negative RSV Negative Negative Comment See Notes 6 Covid19 Result Not Detected Not Detected 7 First Test Unknown Employed In [employer] [facility] [employer] Unknown Symptomatic No Date Of Sympt Onset Not Applicable Hospitalized Yes Icu No Congregate Care Set Unknown No PT/PTT 12/11/2020 [facility] [address] [place] [address] [phone] Protime 29.8 seconds High 11.0 - 15.5 8 Inr 2.79 High 0.93 - 1.23 PTT 49.2 seconds High 24.8 - 36.7 9 CBC W/Automated Diff 12/11/2020 [facility] [address] [place] [address] [phone] CBC W/Automated Diff (SEE NOTE) 10 WBC 8.1 10^3/uL 4.2 - 11.0 RBC 3.62 10^6/uL Low 4.20 - 5.40 Hemoglobin 11.1 g/dL Low 12.0 - 16.0 Hematocrit 33.6 % Low 37.0 - 47.0 MCV 92.8 fL 81.0 - 101 MCH 30.7 pg 27.0 - 34.0 MCHC 33.0 g/dL 31.0 - 36.0 RDW 17.7 % High 11.5 - 14.5 Platelets 175 10^3/uL 150 - 450 MPV 11.7 fL High 7.4 - 10.4 Neut 69.3 % 37.0 - 80.0 Lymph 15.9 % Low 25.0 - 40.0 [place] 10.5 % High 3.0 - 8.0 Eos 3.6 % 0.0 - 7.0 Baso 0.5 % 0.0 - 2.5 %Ig 0.2 % High 0.0 - 0.0 %NRBC 0.0 % 0.0 - 0.0 #Neut 5.62 10^3/uL 2.00 - 6.90 #Lymph 1.29 10^3/uL 0.60 - 3.40 #[place] 0.85 10^3/uL 0.00 - 0.90 #Eos 0.29 10^3/uL 0.00 - 0.70 #Baso 0.04 10^3/uL 0.00 - 0.20 #Ig 0.02 10^3/uL 0.00 - 0.10 #NRBC 0.00 10^3/uL 0.00 - 0.00 Manual Diff NOT INDICATED RBC Morph NOT INDICATED Basic Metabolic Panel 12/11/2020 [facility] [address] [place] [address] [phone] Basic Metabolic Pane (SEE NOTE) 11 Sodium 139 mEq/L 134 - 153 Potassium 4.4 mEq/L 3.6 - 5.0 Chloride 95 mEq/L Low 98 - 107 Co2 34 mEq/L High 22 - 30 Glucose 226 mg/dL High 70 - 99 BUN 31 mg/dL High 7 - 21 Creatinine 1.5 mg/dL 0.7 - 1.5 BUN/Creat 21 8 - 27 Calcium 9.2 mg/dL 8.4 - 10.2 Anion Gap 10.0 mmol/L 8.0 - 16.0 Age 80 yrs Afr Amer GFR >60 Non-Aa GFR 36 mL/min 12 CBC W/Automated Diff 09/04/2020 [facility] [address] [place] [id number] [phone] CBC W/Automated Diff (SEE NOTE) 13 WBC 8.2 10^3/uL 4.2 - 11.0 RBC 3.84 10^6/uL Low 4.20 - 5.40 Hemoglobin 12.1 g/dL 12.0 - 16.0 Hematocrit 38.0 % 37.0 - 47.0 MCV 99.0 fL 81.0 - 101 MCH 31.5 pg 27.0 - 34.0 MCHC 31.8 g/dL 31.0 - 36.0 RDW 16.4 % High 11.5 - 14.5 Platelets 150 10^3/uL 150 - 450 MPV 11.8 fL High 7.4 - 10.4 Neut 69.3 % 37.0 - 80.0 Lymph 17.8 % Low 25.0 - 40.0 [place] 8.9 % High 3.0 - 8.0 Eos 3.2 % 0.0 - 7.0 Baso 0.4 % 0.0 - 2.5 %Ig 0.4 % High 0.0 - 0.0 %NRBC 0.0 % 0.0 - 0.0 #Neut 5.66 10^3/uL 2.00 - 6.90 #Lymph 1.45 10^3/uL 0.60 - 3.40 #[place] 0.73 10^3/uL 0.00 - 0.90 #Eos 0.26 10^3/uL 0.00 - 0.70 #Baso 0.03 10^3/uL 0.00 - 0.20 #Ig 0.03 10^3/uL 0.00 - 0.10 #NRBC 0.00 10^3/uL 0.00 - 0.00 Manual Diff NOT INDICATED RBC Morph NOT INDICATED [facility] [address] [place], [place] [id number] [phone] Protime 20.0 seconds High 11.0 - 15.5 Inr 1.62 High 0.93 - 1.23 PTT 38.6 seconds High 24.8 - 36.7 14 Basic Metabolic Panel 09/04/[address] [address] [phone] Basic Metabolic Pane (SEE NOTE) 15 Sodium 141 mEq/L 134 - 153 Potassium 4.3 mEq/L 3.6 - 5.0 Chloride 97 mEq/L Low 98 - 107 Co2 35 mEq/L High 22 - 30 Glucose 198 mg/dL High 70 - 99 BUN 25 mg/dL High 7 - 21 Creatinine 1.4 mg/dL 0.7 - 1.5 BUN/Creat 18 8 - 27 Calcium 9.7 mg/dL 8.4 - 10.2 Anion Gap 9.0 mmol/L 8.0 - 16.0 Age 80 yrs Afr Amer GFR >60 Non-Aa GFR 38 mL/min 16 Xray 08/03/2020 Main Office [phone] Arterial Ultrasound Lower Extremity Left <pending> [address] [facility] AFF 2 SUGGESTED THERAPEUTIC RANGES USING INR FOR STABILIZED ANTICOAGULATED PATIENTS: STANDARD DOSE THERAPY INR 2.0-3.0 DVT, PE, PREVENT DVT OR EMBOLISM HIGH DOSE THERAPY INR 2.5-3.5 PREVENT EMBOLISM FROM MECHANICAL HEART VALVE 3 NORMAL KIDNEY FUNCTION OR MILD DISEASE - GFR >OR= 60 CHRONIC KIDNEY DISEASE - GFR 15 - 59 RENAL FAILURE - GFR <15 Est. GFR calculation based on the MDRD study equation, which assumes a steady state for creatinine. Est. GFR should not be used for medication dosing. 4 BLOOD TYPE CONFIRMED. 5 ALERTED CRITICAL RESULT TO A LERTED CRITICAL RESULT TO ALONZO [id number] ON D4 [id number] [place] [id number] 6 SEE NOTE: THE [place] FDA HAS M SHERMAN THIS TEST AVAILABLE UNDER AN EMERGENCY USE AUTHORIZATION (EUA) FOR THE DETECTION AND/OR DIAGNOSIS OF THE VIRUS THAT CAUSES COVID-19. PERFORMED AT [address] [place] [address] 7 THIS ASSAY AMPLIFIES AND DET ECTS THE TARGET RNA USING REAL-TIME PCR. TESTING PERFORMED ON [employer] NEGATIVE 2019_NCOV RT-PCR RESULTS DO NOT PRECLUDE 2019_NCOV INFECTION AND SHOULD NOT BE USED THE SOLE BASIS FOR PATIENT MANAGEMENT DECISIONS. [address]K Cm(he follows her Coumadin) 9 \\BLDo\\INR INTERPRETATION\\BLD x\\ Therapeutic range for Coumadin and related oral anticoagulants. -International Normalized Ratio (INR): 2 .0 - 3.0 for Venous Thrombosis, Pulmonary Embolus, Tissue heart valves, Acute MD Atrial Fibrillation, Valvular heart disease and recurrent Systemic Embolism. -International Normalized Ratio (INR): 2 .5 - 3.5 for Mechanical Prosthetic valve. 10 COMPLETE BLOOD COUNT 11 BASIC METABOLIC PANEL 12 Male GFR Interprentation 20-49 yrs >60 mL/min Normal 50-59 yrs >56 mL/min Normal 60-69 yrs >49 mL/min Normal 70-79yrs >42 mL/min Normal 80 and above >35 mL/min Normal Female GFR Interpretation 20-39 yrs >60 mL/min Normal 40-49 yrs >58 mL/min Normal 50-59 yrs >51 mL/min Normal 60-69 yrs >45 mL/min Normal 70-79 yrs >39 mL/min Normal 80 and above >32 mL/min Normal 13 COMPLETE BLOOD COUNT 14 \\BLDo\\INR INTERPRETATION\\BLD x\\ Therapeutic range for Coumadin and related oral anticoagulants. -International Normalized Ratio (INR): 2 .0 - 3.0 for Venous Thrombosis, Pulmonary Embolus, Tissue heart valves, Acute MD Atrial Fibrillation, Valvular heart disease and recurrent Systemic Embolism. -International Normalized Ratio (INR): 2 .5 - 3.5 for Mechanical Prosthetic valve. 15 BASIC METABOLIC PANEL 16 Male GFR Interprentation 20-49 yrs >60 mL/min Normal 50-59 yrs >56 mL/min Normal 60-69 yrs >49 mL/min Normal 70-79yrs >42 mL/min Normal 80 and above >35 mL/min Normal Female GFR Interpretation 20-39 yrs >60 mL/min Normal 40-49 yrs >58 mL/min Normal 50-59 yrs >51 mL/min Normal 60-69 yrs >45 mL/min Normal 70-79 yrs >39 mL/min Normal 80 and above >32 mL/min Normal Procedures Date Code Description Status 2021 92662 Office/Outpatient Established Mo d MDM 30-39 Min Completed 12/18/2020 07082 Moderate Sedation Se rvices; Same Phys Intl 15 Mins; PT >= 5 Years Completed 12/18/2020 19989 Ultrasound Guidance Completed 12/18/2020 44015 Angiography-Extremity Unilateral Completed 12/18/2020 73297 Catheter Placement A rterial System Init 2ND Ord Abdom/Pel/Low Ext Completed 12/17/2020 14904 Electrocardiogram Tracing Only C ompleted 11/23/2020 24080 Office/Outpatient Established Mo d MDM 30-39 Min Completed 11/23/2020 86696 Duplex Scan Extracranial Arterie s, Complete Bilateral Study Completed 10/14/2020 64769 Office/Outpatient Established Lo w MDM 20-29 Min Completed 09/23/2020 87167 Office/Outpatient Established Lo w MDM 20-29 Min Completed 09/14/2020 16176 Moderate Sedation Se rvices; Same Phys Intl 15 Mins; PT >= 5 Years Completed 09/14/2020 57354 Angiography-Extremity Unilateral Completed 09/14/2020 89135 Femoral-Popliteal Angioplasty Co mpleted 08/03/2020 41241 Office/Outpatient Established Lo w MDM 20-29 Min Completed 08/03/2020 94130 Duplex Scan Lower Extremity, Fol low-Up Or Limited Completed 08/03/2020 54748 Duplex Scan Lower Extremity, Fol low-Up Or Limited Completed Medical Devices Description No Information Available Encounters Type Date Location Provider Dx Diagnosis Office Visit 2021 9:30a Main Office Johnnie Lopez M.D. L03.116 Cellulitis of left lower limb L97.524 Non-prs chronic ulcer oth pr t left foot w necrosis of bone Office Visit 11/23/2020 10:00a Main Office Bandar Grigsby M.D. I65.21 Occlusion and stenosis of right carotid artery I70.245 [place] [place] arteries of le ft leg w ulceration oth prt foot Office Visit 10/14/2020 10:15a Main Office Bandar Grigsby M.D. I70.26 2 [place]scl [place] arteries of extremities w gangrene, left leg Office Visit 09/23/2020 10:15a Main Office Bandar Grigsby M.D. Z95.82 0 Peripheral vascular angioplasty status w implants and grafts Office Visit 08/03/2020 9:30a Main Office Bandar Grigsby M.D. I70.21 2 [place]scl [place] arteries of extrm w intrmt walter, left leg I65.23 Occlusion and stenosis of bi lateral carotid arteries Z48.812 [facility] sys Assessments Date Code Description Provider 2021 L03.116 Cellulitis of left lower limb Johnnie Lopez M.D. 2021 L97.524 Non-pressure chronic ulcer of other part of left foot with necrosis of bone Johnnie Lopez M.D. 12/18/2020 I70.212 Atherosclerosis of n ative arteries of extremities with intermittent claudication, left leg Johnnie Lopez M.D. 11/23/2020 I65.21 Occlusion and stenosis of right carotid artery Bandar Grigsby M.D. 11/23/2020 I65.23 Occlusion and stenosis of bilate ral carotid arteries Bandar Grigsby M.D. 11/23/2020 I70.245 Atherosclerosis of n ative arteries of left leg with ulceration of other part of foot Bandar Grigsby M.D. 11/23/2020 I65.23 Occlusion and stenosis of bilate ral carotid arteries Vascular Lab 10/14/2020 I70.262 Atherosclerosis of n ative arteries of extremities with gangrene, left leg Bandar Grigsby M.D. 09/23/2020 Z95.820 Peripheral vascular angioplasty status with implants and grafts Bandar Grigsby M.D. 09/14/2020 I70.222 Atherosclerosis of n ative arteries of extremities with rest pain, left leg Johnnie Lopez M.D. 08/03/2020 I70.212 Atherosclerosis of n ative arteries of extremities with intermittent claudication, left leg Bandar Grigsby M.D. 08/03/2020 I70.212 Atherosclerosis of n ative arteries of extremities with intermittent claudication, left leg Bandar Grigsby M.D. 08/03/2020 I65.23 Occlusion and stenosis of bilate ral carotid arteries Bandar Grigsby M.D. 08/03/2020 I70.212 Atherosclerosis of n ative arteries of extremities with intermittent claudication, left leg Vascular Lab 08/03/2020 Z48.812 Encounter for surgic al aftercare following surgery on the circulatory system Bandar Grigsby M.D. 08/03/2020 Z48.812 Encounter for surgic al aftercare following surgery on the circulatory system Bandar Grigsby M.D. 08/03/2020 Z48.812 Encounter for surgic al aftercare following surgery on the circulatory system Vascular Lab Plan of Treatment 2021 - Johnnie Lopez M.D.* L03.116 Cellulitis of left lower limb * L97.524 Non-prs chronic ulcer oth prt left foot w necrosis of bone * * Follow up:* pt scheduled for surgery Functional Status Description No Information Available Mental Status Description No Information Available Referrals Description No Information Available
--- OUTSIDE RECORDS SUMMARY | 2021-02-20 20:46 | CCD ---
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 I70.249 Active confirmed 738162034 Problem Tinea unguium B35.1 Active confirmed 008041 005 Problem Gross hematuria R31.0 Active confirmed 1978 91989 Problem 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 Wound Care [address] [facility] [facility] [phone] [place] [address] Jan, Jayro Cooper Atherosclerosis of burns pai[place] ar teries of left leg with ulceration [...] Unknown Language: Question Answer Notes Languages spoken: Lithuanian Muslim: Question Answer Notes Muslim No mormon beliefs that would impact health care. Sexual [...] No Information VITAL SIGNS Weight 189 lbs Jan, Weight-kg 85.73 kg Jan, Height 61 in Jan, BMI 35.71 kg/m2 Jan, Heart Rate 76 /min Jan, Respiratory Rate 20 /min Jan, Temperature 98.4 degrees Fahrenheit Jan, Oximetry 96 on 2L Jan, Blood pressure systolic 93 mm Hg Jan, Blood pressure diastolic 40 mm Hg Jan, MEDICATIONS Medication SIG (Take, Route, Frequency, Duration) Notes Start Da te End Date Status Bumetanide 2 MG 1 tablet Orally Once a day Active ProAir HFA 108 (90 Base) mcg/act 2 puffs as needed Inhalation qid prn Active busPIRone HCl 7.5 MG 1 tablet Orally Twice a day Active Plavix 75 MG 1 tablet Orally Once a day Active Calcium 600-200 MG-UNIT Orally A ctive Potassium Chloride ER 10 MEQ 1 tablet with food Orally Twice a day Active Vitamin D 1000 UNIT 1 tablet Orally Once a day Active Lipitor 20 MG 1 tablet Orally Once a day Active Warfarin Sodium 3 MG 1 tablet Orally Once a day for 30 day(s) Active Nitrostat 0.4 MG Sublingual Active Co Q 10 100 MG 1 capsule with a meal Orally Once a day Active Vitamin C 500 MG Orally Active Omeprazole 20 MG 1 capsule Orally Once a day Active Valsartan 40 MG 1 tablet Orally Twice a day for 30 day(s) Active Carvedilol 6.25 MG Orally Active Doxycycline Monohydrate 100 MG 1 capsule Orally every 12 hrs Active Aspirin 81 MG 1 tablet Orally Once a day for 30 day(s) Active Toujeo SoloStar 300 UNIT/ML as directed Subcutaneous Active Lyrica 75 MG 1 capsule Orally Twice a day Active Lumigan 0.01 % 1 drop into affected eye in the evening Ophthalm ic Once a day Active Levothyroxine Sodium 100 MCG 1 tablet on an empty stom ach in the morning Orally Once a day Active Tradjenta 5 MG 1 tablet Orally Once a day Active Calcitriol 0.25 MCG 1 capsule Orally Once a day Active Allopurinol 100 MG 1 tablet Orally Once a day Active Ferrous Sulfate 324 (65 Fe) MG 1 tablet Orally Once a day Active Albuterol Sulfate (2.5 MG/3ML) 0.083% 3 ml Inhalation Three times a d ay Active PROCEDURES from 1940 to 2021-02-02 Procedure Date Ordered Result Body Site Medication: 2% Lidocaine intradermal 2021-02-01 N/A Medication: 4% Lidocaine topical cream (Anecream) 5gm 2021-02-01 N/A Medication: Silver Nitrate Stick topically 2021-02-01 N/A Med: Cadexomer Iodine gel topical IODOSORB 10gm 2021-02-01 N/A RESULTS No Results REASON FOR VISIT Left great toe MEDICAL (GENERAL) HISTORY Type Description Date Medical [...] History SURGERY RELATED Hospitalization History pneumonia/fluid build [facility] 08[facility]2020 Goals Section No Information Health Concerns No Information MEDICAL EQUIPMENT No Information MENTAL STATUS No Information FUNCTIONAL STATUS No Information ASSESSMENTS Encounter Date Diagnosis Assessment Notes Treatment Notes Treatm ent Clinical Notes Jan, 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 Cooper. I have reviewed the above order, written by Inge Cartwright, chakaibpolo, and I verify that it is accurate. 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 Cooper. I have reviewed the above order, written by kingsley James, and I verify that it is accurate.Iodosorb and Hydrofera Blue rope to be utilized 3 times a week to the left great toe covering foam dressing 4 x 4 Future Test Test Name Order Date Pathology Request For Service [id number] Next Appt Details 10 days Reason: Provider Name:Jayro Cooper, 08:15:00 AM, [address], , [place], [address], Provider Name:Jayro Cooper, 09:15:00 AM, [address], , [place], [address], Insurance Providers Payer Name Payer Address Payer Phone Insured Name Patient Relati onship to Insured Coverage Start Date Coverage End Date MEDICARE Part A and B [address] [facility] [phone] [facility] CLAIM DIV [address] [facility] [id number] TIFFANY CASTILLO
--- OUTSIDE RECORDS SUMMARY | 2021-02-20 20:46 | CCD | Continuity of Care Document ---
Author Author Joy LOPEZ MD Organization Unknown Address [address] [place] [address] Phone [phone] Care Team Providers Care Molding Technician Name Role Phone Bolivar Sotomayor M.D. AUTM [phone] Akash Cm D.O. AUTM [phone] [facility] Care Everywhere AUTM [phone] Problems Active Problems Provider Date Carotid artery [...] Status Reviewed: 01/22/21 Patient has never smoked Allergies, Adverse Reactions, Alerts Active Allergies Reaction Severity Comments Date Penicillin Nausea and Vomiting 10/15/19 10 Aloe Nausea and Vomiting 10/21/19 12 Penicillins Nausea Only 12/22/2020 Medications Active Medications SIG [...] 4 hours as needed for pain Reference #:[id number] 30tabs Johnnie Lopez M.D. 12/15/2020 Levothyroxine Sodium 88mcg Tablets qd Bandar Grigsby M.D. 2016 Allopurinol 100mg Tablets Take 100 mg by mouth 2 (two) times a day Unknown Ascorbic Acid 500mg Tablets Take 500 mg by mouth daily Unknown Warfarin Sodium 3mg Tablets Take 3 mg by mouth 5 (five) times a week 5 times weekly on Monday, Monday, Monday, Monday, and Monday Unknown Calcitriol 0.25mcg Capsules Take 0.25 mcg by mouth daily Unknown Oyster Shell Calcium/D [id number] Tablets Take 1 tablet by mouth 2 (two) times a day Unknown Clopidogrel Bisulfate 75mg Tablets Take 75 mg by mouth daily Unknown Albuterol Sulfate (2 .5mg/3ML) 0.083% Nebulizer Take 2.5 mg by nebulization every 6 (six ) hours as needed for shortness of breath Unknown Aspirin Ec Low Dose 81mg Tablets D R Take 81 mg by mouth daily Unknown Carvedilol 6.25mg Tablets Take 6.25 mg by mouth once daily Unknown Coenzyme Q10 100mg Capsules Take 1 mg by mouth daily Unknown Valsartan 40mg Tablets Take 40 mg by mouth daily Unknown Potassium Chloride Jaky ER 10Meq Tablets ER Take 10 mEq by mouth 2 (two) times a day Unknown Buspirone HCL 7.5mg Tablets Take 7.5 mg by mouth 2 (two) times a day Unknown Bumetanide 1mg Tablets Take 1 mg by mouth 2 (two) times a day Unknown Nitroglycerin 0.4mg Tablets Sub Place 0.4 mg under the tongue every 5 (five) minutes as needed for chest pain Unknown Pregabalin 75mg Capsules Take 75 mg [...] Once Daily Unknown Omeprazole 20mg Capsules DR cuellar Unknown Vitamin C 500mg Tablets 1 by [...] CPT Code Status Date Vaccine Lot # [id number] Given 01/06/2015 Influenza Virus Vaccine, Quadrivalent, Split, Preservative Free [id number] Given 02/05/2011 Pneumococcal Vaccine 2Yrs Or Older [...] Antibody Screen Negative Testing site Performed AT [address] [place] [address] Blood bank comment See Notes 4 aPTT 12/18/2020 N2N/CCD Import aPTT 130.9 s Critical high 22.0 - 34.3 5 Covid/Flu AB/RSV PCR 12/17/2020 N2N/CCD Import Specimen Description Nasopharyngeal Influenza A Negative Negative Influenza B Negative Negative RSV Negative Negative Comment See Notes 6 Covid19 Result Not Detected Not Detected 7 First Test Unknown [facility]ed [facility] Unknown Symptomatic No Date Of Sympt Onset Not Applicable Hospitalized Yes Icu No Congregate Care Set Unknown No PT/PTT 12/11/2020 [facility] [address] [place] [address] [phone] Protime 29.8 seconds High 11.0 - 15.5 8 Inr 2.79 High 0.93 - 1.23 PTT 49.2 seconds High 24.8 - 36.7 9 CBC W/Automated Diff 12/11/2020 [facility] [address] [place] [address] [phone] CBC W/Automated Diff (SEE NOTE) 10 WBC [...] Lymph 15.9 % Low 25.0 - 40.0 Beaver 10.5 % High 3.0 - 8.0 Eos 3.6 % 0.0 - 7.0 Baso 0.5 % 0.0 - 2.5 %Ig 0.2 % High 0.0 - 0.0 %NRBC 0.0 % 0.0 - 0.0 #Neut 5.62 10^3/uL 2.00 - 6.90 #Lymph 1.29 10^3/uL 0.60 - 3.40 #Beaver 0.85 10^3/uL 0.00 - 0.90 #Eos 0.29 10^3/uL 0.00 - 0.70 #Baso 0.04 10^3/uL 0.00 - 0.20 #Ig 0.02 10^3/uL 0.00 - 0.10 #NRBC 0.00 10^3/uL 0.00 - 0.00 Manual Diff NOT INDICATED RBC Morph NOT INDICATED Basic Metabolic Panel 12/11/2020 [facility] [address] [place] [id number] [phone] Basic Metabolic Pane (SEE NOTE) 11 Sodium [...] 36 mL/min 12 CBC W/Automated Diff 09/04/2020 [facility] [address] [place] [address] [phone] CBC W/Automated Diff (SEE NOTE) 13 WBC [...] Lymph 17.8 % Low 25.0 - 40.0 Beaver 8.9 % High 3.0 - 8.0 Eos 3.2 % 0.0 - 7.0 Baso 0.4 % 0.0 - 2.5 %Ig 0.4 % High 0.0 - 0.0 %NRBC 0.0 % 0.0 - 0.0 #Neut 5.66 10^3/uL 2.00 - 6.90 #Lymph 1.45 10^3/uL 0.60 - 3.40 #Beaver 0.73 10^3/uL 0.00 - 0.90 #Eos 0.26 10^3/uL 0.00 - 0.70 #Baso 0.03 10^3/uL 0.00 - 0.20 #Ig 0.03 10^3/uL 0.00 - 0.10 #NRBC 0.00 10^3/uL 0.00 - 0.00 Manual Diff NOT INDICATED RBC Morph NOT INDICATED [facility] [address] [place] [address] [phone] Protime 20.0 seconds High 11.0 - 15.5 Inr 1.62 High 0.93 - 1.23 PTT 38.6 seconds High 24.8 - 36.7 14 Basic Metabolic Panel 09/04/2020 [facility] [address] [place] [address] [phone] Basic Metabolic Pane (SEE NOTE) 15 Sodium [...] 38 mL/min 16 Xray 08/03/2020 Main Office [phone] Arterial Ultrasound Lower Extremity Left <pending> 1 PERFORMED BY [facility] 2 SUGGESTED THERAPEUTIC RANGES USING INR FOR [...] TO A LERTED CRITICAL RESULT TO ALONZO [id number] [place] D4 [id number] [id number] 6 SEE NOTE: THE [place] FDA HAS M SHERMAN THIS TEST AVAILABLE UNDER AN EMERGENCY USE AUTHORIZATION (EUA) FOR THE DETECTION AND/OR DIAGNOSIS OF THE VIRUS THAT CAUSES COVID-19. PERFORMED AT [address] [place] [address] 7 THIS ASSAY AMPLIFIES AND DET ECTS THE TARGET RNA USING REAL-TIME PCR. TESTING PERFORMED ON Fib[employer] NEGATIVE 2019_NCOV RT-PCR RESULTS DO NOT PRECLUDE 2019_NCOV INFECTION AND SHOULD NOT BE USED THE SOLE BASIS FOR PATIENT MANAGEMENT DECISIONS. [address]K Cm(he follows her Coumadin) 9 \\BLDo\\INR INTERPRETATION\\BLD x\\ Therapeutic range for Coumadin and related oral anticoagulants. -International Normalized Ratio (INR): 2 .0 - 3.0 for Venous Thrombosis, Pulmonary Embolus, Tissue heart valves, Acute MT Atrial Fibrillation, Valvular heart disease and recurrent [...] Thrombosis, Pulmonary Embolus, Tissue heart valves, Acute MT Atrial Fibrillation, Valvular heart disease and recurrent [...] mL/min Normal Procedures Date Code Description Status 12/18/2020 95033 Moderate Sedation Se rvices; Same Phys Intl 15 Mins; PT >= 5 Years Completed 12/18/2020 85497 Ultrasound Guidance Completed 12/18/2020 39339 Angiography-Extremity Unilateral Completed 12/18/2020 50834 Catheter Placement A rterial System Init 2ND Ord Abdom/Pel/Low Ext Completed 12/17/2020 41755 Electrocardiogram Tracing Only C ompleted 11/23/2020 27860 Duplex Scan Extracranial Arterie s, Complete Bilateral Study Completed 09/14/2020 34072 Moderate Sedation Se rvices; Same Phys Intl 15 Mins; PT >= 5 Years Completed 09/14/2020 30641 Angiography-Extremity Unilateral Completed 09/14/2020 89493 Femoral-Popliteal Angioplasty Co mpleted 08/03/2020 57110 Duplex Scan Lower Extremity, Fol low-Up Or Limited Completed 08/03/2020 89994 Duplex Scan Lower Extremity, Fol low-Up Or Limited Completed Medical Devices Description No Information Available Encounters Type Date Location Provider Dx Diagnosis Office Visit 11/23/2020 10:00a Main Office Bandar Grigsby M.D. I65.21 Occlusion and stenosis of right carotid artery I70.245 [facility] [place] arteries of le ft leg w ulceration oth prt foot Office Visit 10/14/2020 10:15a Main Office Bandar Grigsby M.D. 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 Z95.82 0 Peripheral vascular angioplasty status w implants and grafts Office Visit 08/03/2020 9:30a Main Office Bandar Grigsby M.D. I70.21 2 [facility] [place] arteries of extrm w intrmt walter, left leg I65.23 Occlusion and stenosis of bi lateral carotid arteries Z48.812 Encntr for surgical aftcr fo llowing surgery on the circ sys Assessments Date [...] Vascular Lab Plan of Treatment 2021 - Love Marshall.D.* L03.116 Cellulitis of left lower limb * L97.524 Non-prs chronic ulcer oth prt left foot w necrosis of bone * * Follow up:* pt scheduled for surgery Functional Status Description No Information Available Mental Status Description No Information Available Referrals Description No Information Available
--- OUTSIDE RECORDS SUMMARY | 2021-02-20 20:46 | CCD | Continuity of Care Document ---
Author Author [facility] Organization Unknown Address [address] [place] [address] Phone [phone] Care Team Providers Care Hvac Manager Name Role Phone Akash Cm M.D. AUTM [phone] NAN SOTOMAYOR M.D. PMariferCMarifer AUTM [phone] Akash Cm M.D. PCP [phone] Social History Type Date Description Comments Sex Unknown Allergies, Adverse Reactions, Alerts Active Allergies Reaction Severity Comments Date Penicillin V 04/16/2020 Aloe Vera [place] Extract 04/16 Adhesives 04/16/2020 Medications Active Medications [...] M.D. Buspirone HCL 7.5mg Tablets Trish Dockery [facility] Allopurinol 100mg Tablets Trish DockeryBUD [...] H/L Range Note Laboratory test finding 10/13/2020 [facility] [address] [place] [address] [phone] Magnesium Serum 2.2 mg/dL 1.7 - 2.2 Comprehensive Metabolic Panel 10/13/2020 [facility] [address] [place] [address] [phone] Comprehensive Metabo (SEE NOTE) 1 Sodium 139 [...] GFR >60 2 CBC W/Automated Diff 10/13/[address] [address] [phone] CBC W/Automated Diff (SEE NOTE) 3 WBC [...] Lymph 12.8 % Low 25.0 - 40.0 [place] 13.5 % High 3.0 - 8.0 Eos 3.1 % 0.0 - 7.0 Baso 0.3 % 0.0 - 2.5 %Ig 0.2 % High 0.0 - 0.0 %NRBC 0.0 % 0.0 - 0.0 #Neut 6.04 10^3/uL 2.00 - 6.90 #Lymph 1.10 10^3/uL 0.60 - 3.40 #[place] 1.16 10^3/uL High 0.00 - 0.90 #Eos 0.27 10^3/uL 0.00 - 0.70 #Baso 0.03 10^3/uL 0.00 - 0.20 #Ig 0.02 10^3/uL 0.00 - 0.10 #NRBC 0.00 10^3/uL 0.00 - 0.00 Manual Diff SEE BELOW Segs 72 % 37 - 80 %Lymph 13 % Low 25 - 40 %[place] 14 % High 3 - 8 %Eos 1 % 0 - 7 RBC Morph NOT INDICATED Protime 10/13/[address] [address] [phone] Protime 19.6 seconds High 11.0 - 15.5 Inr 1.64 High 0.93 - 1.23 4 Protime 10/12/[address] [address] [phone] Protime 20.8 seconds High 11.0 - 15.5 Inr 1.76 High 0.93 - 1.23 5 Laboratory test finding 10/12/2020 [facility] [address] [place] [address] [phone] Magnesium Serum 1.9 mg/dL 1.7 - 2.2 Comprehensive Metabolic Panel 10/12/2020 [facility] [address] [place] [address] [phone] Comprehensive Metabo (SEE NOTE) 6 Sodium 140 [...] GFR >60 7 CBC W/Automated Diff 10/12/[address] [address] [phone] CBC W/Automated Diff (SEE NOTE) 8 WBC [...] Lymph 15.8 % Low 25.0 - 40.0 [place] 13.1 % High 3.0 - 8.0 Eos 3.9 % 0.0 - 7.0 Baso 0.5 % 0.0 - 2.5 %Ig 0.1 % High 0.0 - 0.0 %NRBC 0.0 % 0.0 - 0.0 #Neut 5.41 10^3/uL 2.00 - 6.90 #Lymph 1.28 10^3/uL 0.60 - 3.40 #[place] 1.06 10^3/uL High 0.00 - 0.90 #Eos 0.32 10^3/uL 0.00 - 0.70 #Baso 0.04 10^3/uL 0.00 - 0.20 #Ig 0.01 10^3/uL 0.00 - 0.10 #NRBC 0.00 10^3/uL 0.00 - 0.00 Manual Diff SEE BELOW Segs 62 % 37 - 80 Band 0 % 0 - 5 %Lymph 26 % 25 - 40 %[place] 9 % High 3 - 8 %Eos 3 % 0 - 7 %Baso 0 % 0 - 2 RBC Morph NOT INDICATED Comprehensive Metabolic Panel 10/11/2020 [facility] [address] [place] [address] [phone] Comprehensive Metabo (SEE NOTE) 9 Sodium 143 [...] GFR >60 10 Laboratory test finding 10/11/2020 [facility] [address] [place] [address] [phone] Iron 31 g/dL Low 42 - 135 Laboratory test finding 10/11/2020 [facility] [address] [place] [address] [phone] Magnesium Serum 2.0 mg/dL 1.7 - 2.2 Protime 10/11/2020 [place] [address] [phone] Protime 23.4 seconds High 11.0 - 15.5 Inr 2.05 High 0.93 - 1.23 11 CBC W/Automated Diff 10/11/2020 [place] [address] [phone] CBC W/Automated Diff (SEE NOTE) 12 WBC [...] Lymph 15.2 % Low 25.0 - 40.0 [place] 11.7 % High 3.0 - 8.0 Eos 2.8 % 0.0 - 7.0 Baso 0.4 % 0.0 - 2.5 %Ig 0.1 % High 0.0 - 0.0 %NRBC 0.0 % 0.0 - 0.0 #Neut 5.42 10^3/uL 2.00 - 6.90 #Lymph 1.18 10^3/uL 0.60 - 3.40 #[place] 0.91 10^3/uL High 0.00 - 0.90 #Eos 0.22 10^3/uL 0.00 - 0.70 #Baso 0.03 10^3/uL 0.00 - 0.20 #Ig 0.01 10^3/uL 0.00 - 0.10 #NRBC 0.00 10^3/uL 0.00 - 0.00 Manual Diff NOT INDICATED RBC Morph NOT INDICATED Protime 10/10/2020 [place] [address] [phone] Protime 29.4 seconds High 11.0 - 15.5 Inr 2.74 High 0.93 - 1.23 13 Laboratory test finding 10/10/2020 [place] [address] [phone] D-Dimer 2.91 ug/mL High 0.27 - 0.50 CBC W/Automated Diff 10/10/2020 [place] [address] [phone] CBC W/Automated Diff (SEE NOTE) 14 WBC [...] Lymph 14.4 % Low 25.0 - 40.0 [place] 13.5 % High 3.0 - 8.0 Eos 4.0 % 0.0 - 7.0 Baso 0.3 % 0.0 - 2.5 %Ig 0.1 % High 0.0 - 0.0 %NRBC 0.0 % 0.0 - 0.0 #Neut 4.78 10^3/uL 2.00 - 6.90 #Lymph 1.02 10^3/uL 0.60 - 3.40 #[place] 0.95 10^3/uL High 0.00 - 0.90 #Eos 0.28 10^3/uL 0.00 - 0.70 #Baso 0.02 10^3/uL 0.00 - 0.20 #Ig 0.01 10^3/uL 0.00 - 0.10 #NRBC 0.00 10^3/uL 0.00 - 0.00 Manual Diff NOT INDICATED RBC Morph NOT INDICATED Laboratory test finding 10/10/2020 [facility] [address] [place], [place] [address] [phone] Magnesium Serum 2.2 mg/dL 1.7 - 2.2 Vitamin B12 Serum 587 pg/mL 232 - 1245 Pro-BNP 7701 pg/mL High 0 - 450 Iron 33 g/dL Low 42 - 135 Comprehensive Metabolic Panel 10/10/2020 [facility] [address] [place] [address] [phone] Comprehensive Metabo (SEE NOTE) 15 Sodium 144 [...] Amer GFR >60 16 Cve Panel 10/10/2020 [place] [address] [phone] Cve Panel (SEE NOTE) 17 Cholesterol 83 mg/dL Low 131 - 200 Triglycerides 72 mg/dL 35 - 160 HDL 30 mg/dL 29 - 86 LDL 45 mg/dL Low 65 - 175 Risk Factor 2.8 Low 3.2 - 4.4 LDL/HDL 1.50 1.47 - 3.22 18 Laboratory test finding 10/10/[address] [address] [phone] Troponin T 0.06 NG/ML 0.00 - 0.10 19 TSH Highly Sensitive 16.18 uIU/mL High 0.47 - 5.01 T4 - Free 0.90 ng/dL Low 0.93 - 1.70 Protime 10/09/2020 [place] [address] [phone] Protime 29.0 seconds High 11.0 - 15.5 Inr 2.69 High 0.93 - 1.23 20 Laboratory test finding 10/09/[address] [address] [phone] Magnesium Serum 2.2 mg/dL 1.7 - 2.2 Hgba1c 8.7 % High 4.4 - 6.1 21 Troponin T 0.05 NG/ML 0.00 - 0.10 22 Culture Urine 10/09/[address] [address] [phone] Culture Urine (SEE NOTE) 23 1 COMPREHENSIVE [...] Thrombosis, Pulmonary Embolus, Tissue heart valves, Acute MT, Atrial Fibrillation, Valvular heart disease and recurrent Systemic Embolism. -International Normalized Ratio (INR): 2 .5 - 3.5 for Mechanical Prosthetic valve. 5 \\BLDo\\INR INTERPRETATION\\BLD x\\ Therapeutic range for Coumadin and related oral anticoagulants. -International Normalized Ratio (INR): 2 .0 - 3.0 for Venous Thrombosis, Pulmonary Embolus, Tissue heart valves, Acute MT, Atrial Fibrillation, Valvular heart disease and recurrent [...] Thrombosis, Pulmonary Embolus, Tissue heart valves, Acute MT, Atrial Fibrillation, Valvular heart disease and recurrent Systemic Embolism. -International Normalized Ratio (INR): 2 .5 - 3.5 for Mechanical Prosthetic valve. 12 COMPLETE BLOOD COUNT 13 \\BLDo\\INR INTERPRETATION\\BLD x\\ Therapeutic range for Coumadin and related oral anticoagulants. -International Normalized Ratio (INR): 2 .0 - 3.0 for Venous Thrombosis, Pulmonary Embolus, Tissue heart valves, Acute MT, Atrial Fibrillation, Valvular heart disease and recurrent [...] Thrombosis, Pulmonary Embolus, Tissue heart valves, Acute MT, Atrial Fibrillation, Valvular heart disease and recurrent Systemic Embolism. -International Normalized Ratio (INR): 2 .5 - 3.5 for Mechanical Prosthetic valve. 21 {A1] {HB] 22 TROPONIN T 0.1 ng/ml Recommended as the clinical th reshold value for Troponin T. 23 _CULTURE URINE_ ^$[id number] ^^032129 $$792494 ^^421295 $$807011 $$545998 $$008968 $$076881 $$522116 $$171224 $$570956 $$437750 $$293492 $$220654 $$206955 $$072615 $$989025 $$239220 $$650071 $$282219 $$997807 $$233026 $$800348 $$876079 $$046131 $$171629 $$704332 ^^656517 $$336044 $$948074 $$860120 -- Continued on next page -- Patient: ANNA Medina Order: Page 2 Culture: CULTURE URINE Status: Final -- Continued on next page -- Patient: ANNA Medina Order: Page 2 Culture: CULTURE URINE Status: Prelim $$[id number] $$[id number] REPORTED DATE/TIME: 10/13/2020 14:07 Culture: CULTURE URINE [...] coli Flag: A Patient: ANNA Medina Order: [id number] Page 3 Culture: CULTURE URINE Status: Final [...] S S . . . . . .12190-7 Gentamicin S S . . . . . .267-5 Imipenem S S . . . . . .279-0 Levofloxacin S S . . . . . .25468-5 Meropenem S S . . . . . .6652-2 Nitrofurantoin S S . . . . . .363-2 Piperacillin/Tazobactam S S . . . . . .412-7 Tetracycline S S . . . . . .496-0 Tobramycin S S . . . . . .508-2 Trimethoprim/Sulfa S S . . . . . .516-5 P1 Test performed by: [facility] #: [id number] [address] [place] [address] [id number] [facility] [address] Rn Rehab : Sae Pena MD NPI #: Hospitalist Nocturnist Physician : 10/12/20.XMT.SENT REF 10/13/20.XMT.SENT REF 10/13/20. .to MANUEL HERRMANN via mode m 10/13/20. .to NAUN MTZ via fax Procedures Date Code Description Status 11/19/2020 66861 Office/Outpatient Established Mo d MDM 30-39 Min Completed 10/20/2020 40060 Office/Outpatient Established Mo d MDM 30-39 Min Completed 10/20/2020 85555 EKG Completed 10/13/2020 23094 Hospital Disch MGMT Completed 10/12/2020 39199 Hospital Care Low Completed 10/11/2020 09013 Hospital Care Low Completed 10/10/2020 30409 Hospital Care Moderate Completed 10/09/2020 90313 Hospital Care Initial Level 2 Co mpleted 09/10/2020 61071 Office/Outpatient Established Lo w MDM 20-29 Min Completed 09/10/2020 50669 Pacemaker Inerrogation Completed 08/06/2020 05389 Office/Outpatient Established Mo d MDM 30-39 Min Completed 07/15/2020 22566 Office/Outpatient Established Mo d MDM 30-39 Min Completed 07/15/2020 43629 EKG Completed 06/17/2020 70467 Office/Outpatient Established Mo d MDM 30-39 Min Completed Encounters Type Date Location Provider Dx Diagnosis Office Visit 11/19/2020 11:15a [facility] Nan [facility]ayor [facility] I11.9 Hypertensive heart disease without heart failure E10.9 Type 1 diabetes mellitus wit hout complications I50.20 Unspecified systolic (conges tive) heart failure I34.0 Nonrheumatic mitral (valve) insufficiency Office Visit 10/20/2020 1:15p [facility] Nan [facility]otomayor M[facility] I50.20 Unspecified systolic (congestive) heart failure I48.0 Paroxysmal atrial fibrillati on I11.9 Hypertensive heart disease w ithout heart failure I49.49 Other premature depolarizati on Office Visit 09/10/2020 1:30p [facility] Nan Sotomayor M[facility] I11.9 Hypertensive heart disease without heart failure I48.0 Paroxysmal atrial fibrillati on G45.9 Transient cerebral ischemic attack, unspecified Z95.0 Presence of cardiac pacemake r Office Visit 08/06/2020 11:30a [facility] Nan [facility]ayor M[facility] 466.0 Bronchitis Acute I48.0 Paroxysmal atrial fibrillati on E10.9 Type 1 diabetes mellitus wit hout complications I11.9 Hypertensive heart disease w [facility] heart failure Office Visit 07/15/2020 11:30a [facility] Nan Sotomayor M[facility] I48.0 Paroxysmal atrial fibrillation E10.9 Type 1 diabetes mellitus wit hout complications I11.9 Hypertensive heart disease w [facility] heart failure I50.20 Unspecified systolic (conges tive) heart failure I49.49 Other premature depolarizati on Office Visit 06/17/2020 10:00a [facility] Nan Sotomayor M[facility] .[facility] I48.0 Paroxysmal atrial fibrillation E10.9 Type 1 diabetes mellitus wit hout complications I11.9 Hypertensive heart disease w [facility] heart failure E78.5 Hyperlipidemia, unspecified Assessments Date Code Description Provider 11/19/2020 I11.9 Hypertensive heart disease witho ut [...] P.C. 09/10/2020 I11.9 Hypertensive heart disease witho sd heart failure Nan Sotomayor M.D[facility] 09/10/2020 I48.0 Paroxysmal atrial fibrillation Love Sotomayor M.D[facility] 09/10/2020 G45.9 Transient cerebral ischemic juan antonio ck, unspecified Nan Sotomayor M.D[facility] 09/10/2020 Z95.0 Presence of cardiac pacemaker Jonelle Sotomayor M.D., P.C. 08/06/2020 466.0 Bronchitis Acute Love Brown, P.C. 08/06/2020 I48.0 Paroxysmal atrial fibrillation Love Sotomayor M.D[facility] 08/06/2020 E10.9 Type 1 diabetes mellitus without complications Nan Sotomayor M.D[facility] 08/06/2020 I11.9 Hypertensive heart disease witho sd heart failure Nan Sotomayor M.D[facility] 07/15/2020 I48.0 Paroxysmal atrial fibrillation Love Sotomayor M.D[facility] 07/15/2020 E10.9 Type 1 diabetes mellitus without complications Nan Sotomayor M.D[facility] 07/15/2020 I11.9 Hypertensive heart disease witho sd heart failure Nan Sotomayor M.D[facility] 07/15/2020 I50.20 Unspecified systolic (congestive ) heart failure Nan Sotomayor M.D[facility] 07/15/2020 I49.49 Other premature depolarization Love Sotomayor M.D[facility] 06/17/2020 I48.0 Paroxysmal atrial fibrillation Love Sotomayor M.D[facility] 06/17/2020 E10.9 Type 1 diabetes mellitus without complications Nan Sotomayor M.D[facility] 06/17/2020 I11.9 Hypertensive heart disease witho ut heart failure Nan Sotomayor M.D[facility] 06/17/2020 E78.5 Hyperlipidemia, unspecified Renetta Sotomayor M.D[facility] P.C[facility] Plan of Treatment Future Appointment(s):* 03/16/2021 1:30 pm - Nan S[facility]or [facility] at [facility]
--- OUTSIDE RECORDS SUMMARY | 2021-02-20 20:46 | CCD ---
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 Active confirmed 485393813 ALLERGIES Allergen (clinical drug ingredient) Drug/Non Drug Allergy do cumented on EMR Reaction Allergy Type Onset Date Status Penicillin (For Allergies Use Only) Unknown Drug Allerg y Active NASID Unknown Non Drug Allergy Active Motrin Unknown Drug Allergy Active Aloe Unknown Drug Allergy Active Sulfa (for allergy use only) Unknown Drug Allergy Active ENCOUNTERS from 1940 to 2021-02-02 Encounter Location Date Provider Diagnosis [facility] [address] [facility] [phone] [place] [address] Jan, Jayro Cooper IMMUNIZATIONS No Information SOCIAL HISTORY Tobacco Use: Social History Observation Description Date Details (start date - stop date) Never Smoker Sex Assigned At : Social History Observation Description Sex Assigned At Unknown Language: Question Answer Notes Languages spoken: Cymraes Hindu: Question Answer Notes Hindu No yarsani beliefs that would impact health care. Sexual [...] REASON FOR REFERRAL No Information VITAL SIGNS No information MEDICATIONS Medication SIG (Take, Route, Frequency, Duration) [...] Three times a d ay Active PROCEDURES No Information RESULTS No Results REASON FOR VISIT Packing fell out MEDICAL (GENERAL) HISTORY Type Description Date Medical [...] History SURGERY RELATED Hospitalization History pneumonia/fluid build up-[place] [facility] 08/2020 Goals Section No Information Health Concerns No Information MEDICAL EQUIPMENT No Information MENTAL STATUS No Information FUNCTIONAL STATUS No Information ASSESSMENTS No Information PLAN OF TREATMENT Next Appt Details Provider Name:Jayro Cooper, 08:15:00 AM, [address], , [place], [address], Provider Name:Jayro Cooper, 09:15:00 AM, [address], , [place], [address], Insurance Providers Payer Name Payer Address Payer Phone Insured Name Patient Relati onship to Insured Coverage Start Date Coverage End Date MEDICARE Part A and B [address] [facility] [phone] TI[employer] [facility] OPTIONS [facility] CLAIM [facility] [address] [facility] [phone] TIFFANY CASTILLO
--- OUTSIDE RECORDS SUMMARY | 2021-02-20 20:46 | CCD ---
Author Author [facility] Organization [facility] Address Unknown Phone Unavailable Care Team Providers Care Brimming Machine Operator Name Role Phone Jayro Cooper Unavailable PROBLEMS Type Condition ICD9-CM Code [id number] Code Onset Dates Condition S tatus W/U Status Risk SNOMED Code Notes Problem Gross hematuria R31.0 Active confirmed 197805 ALLERGIES Allergen (clinical drug ingredient) Drug/Non Drug Allergy do cumented on EMR Reaction Allergy Type Onset Date Status Sulfa (for allergy use only) Unknown Drug Allergy Active Penicillin (For Allergies Use Only) Unknown Drug Allerg y Active Motrin Unknown Drug Allergy Active Aloe Unknown Drug Allergy Active ENCOUNTERS from 1940 to 2020-12-24 Encounter Location Date Provider Diagnosis [facility] [address] [facility] [phone] [place] [address] Dec, Jayro Cooper IMMUNIZATIONS No Information SOCIAL HISTORY Tobacco Use: Social History Observation Description Date Details (start date - stop date) Never Smoker Sex Assigned At : Social History Observation Description Sex Assigned At Unknown Sexual Hx: Question Answer Notes Had sex [...] Notes Start Da te End Date Status Vitamin D 1000 UNIT 1 tablet Orally Once a day Active Omeprazole 20 MG 1 capsule Orally Once a day Active Calcitriol 0.25 MCG 1 capsule Orally Once a day Active Mupirocin 2 % 1 application to affected area Externally Three times a day Active Doxycycline Monohydrate 100 MG 1 capsule Orally every 12 hrs Active Plavix 75 MG 1 tablet Orally Once a day Active HumaLOG Mix 75/25 (75-25) 100 UNIT/ML Subcutaneous Active Carvedilol 6.25 MG Orally Active Bumetanide 2 MG 1 tablet Orally Once a day Active Nitrostat 0.4 MG Sublingual Active Ramipril 2.5 MG 1 capsule Orally Once a day Active Lumigan 0.01 % 1 drop into affected eye in the evening Ophthalm ic Once a day Active Ferrous Sulfate 324 (65 Fe) MG 1 tablet Orally Once a day Active Lyrica 75 MG 1 capsule Orally Twice a day Active Potassium Chloride ER 10 MEQ 1 tablet with food Orally Twice a day Active Cipro 500 MG 1 tablet Orally as directed- 1 hour prior to cystoscopy for 1 dose(s) Mar, Active Levothyroxine Sodium 88 MCG 1 tablet on an empty stoma ch in the morning Orally Once a day Active Vitamin C 500 MG Orally Active CPAP Machine Not-Taking Co Q 10 100 MG 1 capsule with a meal Orally Once a day Active Glimepiride 1 MG 1 tablet with breakfast or t he first main meal of the day Orally Once a day Active Calcium 600-200 MG-UNIT Orally A ctive Coumadin 1 MG 1 tablet Orally Once a day Active Tradjenta 5 MG 1 tablet Orally Once a day Active Folic Acid 1 MG 1 tablet Orally Once a day Active Cipro 500 MG 1 tablet Orally Twice a day for 3 days Active Lipitor 20 MG 1 tablet Orally Once a day Active ProAir HFA 108 (90 Base) mcg/act 2 puffs as needed Inhalation qid prn Active Allopurinol 100 MG 1 tablet Orally Once a day Active Albuterol Sulfate (2.5 MG/3ML) 0.083% 3 ml Inhalation Three times a d ay Active PROCEDURES No Information RESULTS No Results REASON FOR VISIT OUTREACH ASSISTANT REFERRAL [facility] MEDICAL (GENERAL) HISTORY Type Description Date Medical [...] History Cystoscopy 04/10/17 Hospitalization History SURGERY RELATED Goals Section No Information Health Concerns No Information MEDICAL EQUIPMENT No Information MENTAL STATUS No Information FUNCTIONAL STATUS No Information ASSESSMENTS No Information PLAN OF TREATMENT Medication Medication Name Sig Start Date Stop Date Cipro 500 MG 1 tablet Orally Twice a day for 3 days Insurance Providers Payer Name Payer Address Payer Phone Insured Name Patient Relati onship to Insured Coverage Start Date Coverage End Date MEDICARE Part A and B [address] [facility] [id number] [phone] TIFFANY CASTILLO [facility] HEALTH CARE OPTIONS [facility] CLAIM DIV [id number] [facility] [phone] TIFFANY CASTILLO
--- OUTSIDE RECORDS SUMMARY | 2021-02-20 20:46 | CCD | Continuity of Care Document ---
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 AUTM [phone] Akash Cm D.O. AUTM [phone] [facility] Care Everywhere AUTM Problems Active Problems [...] Use Denies alcohol use Tobacco Use Reviewed: 11/23/20 Patient has never smoked Smoking Status Reviewed: 11/23/20 Patient has never smoked Allergies, Adverse Reactions, Alerts Active Allergies Reaction Severity Comments Date Penicillin Nausea and Vomiting 10/15/19 10 Aloe Nausea and Vomiting 10/21/19 12 Penicillins Nausea Only 12/22/2020 Medications Active Medications SIG Qnty Indications Ordering Provide r Date Oxycodone HCL 5mg Tablets Take 1 tablet (5 mg total) by mouth every 4 (four) hours as needed Max Daily Amount: 30 mg 30tabs Unknown 12/19/2020 Amoxicillin/Clavulanate Potassium 875-125mg Tablets Take 1 tablet by mouth 2 (two) times a day for 10 days 40tabs Unknown 12/19/2020 Hydrocodone-Acetaminophen 5-325mg Tablets 1 tablet by mouth every 4 hours as needed for pain Reference #[id number] 30tabs Johnnie Lopez M.D. 12/15/2020 Doxycycline Hyclate 100mg Tablets 1 tab by mouth twice a day 14tabs Bandar Grigsby M.D. 11/23/2020 Levothyroxine Sodium 88mcg Tablets qd Bandar Grigsby M.D. 2016 Tradjenta 5mg Tablets Take 5 mg by mouth daily Unknown Allopurinol 100mg Tablets Take 100 mg by mouth 2 (two) times a day Unknown Ascorbic Acid 500mg Tablets Take 500 mg by mouth daily Unknown Warfarin Sodium 1mg Tablets Take 1 mg by mouth 2 (two) times a week With 3 mg on Monday and Unknown Warfarin Sodium 3mg Tablets Take 3 mg by mouth 5 (five) times a week 5 times weekly on Monday, Monday, Monday, Monday, and Monday Unknown Calcitriol 0.25mcg Capsules Take 0.25 mcg by mouth daily Unknown Atorvastatin Calcium 80mg Tablets Take 80 mg by mouth daily Unknown Levothyroxine Sodium 100mcg Tablet s Take 100 mcg by mouth daily Unknown 0 Ferrous Gluconate 324(37.5Fe) mg T ablets Take 324 mg by mouth 2 (two) times a day Unknown Oyster Shell Calcium/D [id number] Tablets Take 1 tablet by mouth 2 [...] Take 1 mg by mouth daily Unknown Omeprazole Magnesium 20.6(20Base) mg Capsules DR Take 20 mg by mouth daily Unknown Valsartan 40mg Tablets Take 40 mg by mouth daily Unknown Potassium Chloride Jaky ER 10Meq Tablets ER Take 10 mEq by mouth 2 (two) times a day Unknown Acetaminophen 325mg Tablets Take 650 mg by mouth every 6 (six) hours as needed for pain Unk nown Buspirone HCL 7.5mg Tablets Take 7.5 mg by mouth 2 (two) times a day Unknown Bumetanide 1mg Tablets Take 1 mg by mouth 2 (two) times a day Unknown Plavix 75mg Tablets 1 po qd 30tabs Unknown Lyrica 75mg Capsules twice a day Unknown Tradjenta 5mg Tablets every d ay Unknown Ferrous Gluconate 324(37.5Fe) mg T ablets 1 tab by mouth twice a day Unknown Atorvastatin Calcium 80mg Tablets every day Unknown Vitamin D-3 2000Units Capsules 1 by mouth every day Unknown Vitamin C 500mg Tablets 1 by mouth every day Unknown Allopurinol 100mg Tablets bid Unknown Warfarin Sodium 5mg Tablets every day, as directed Akash Cm D.O. Calcitriol 0.25mcg Capsules e Unknown Omeprazole 20mg Capsules DR cuellar Unknown Aspirin [address] rollins Unknown Carvedilol 6.25mg Tablets twi Unknown Toualex Solostar 300U nit/ML Solution Pen-Inject Inject 40 Units Under The Skin Once Daily Unknown Buspirone HCL 7.5mg Tablets take 1 tablet (7.5 mg total) by mouth twice daily after meals Unknown Acetaminophen 325mg Tablets take 2 tablets (650 mg total) by mouth every 4 (four) hours as needed Unknown Quetiapine Fumarate 25mg Tablets bedtime as needed Unknown Albuterol Sulfate (2 .5mg/3ML) 0.083% Nebulizer 1 unit dose via nebulizer every 6 hours for sob or wheezing Unknown Lumigan 0.01% Solution Administer 1 drop to both eyes nightly Unknown [facility] D3 25mcg (1000 Ut) Capsules Take 2,000 Units by mouth daily Unknown Pregabalin 75mg Capsules Take 75 mg by mouth 2 (two) times a day Unknown Nitroglycerin 0.4mg Tablets Sub Place 0.4 mg under the tongue every 5 (five) minutes as needed for chest pain Unknown Immunizations CPT Code Status Date Vaccine Lot # [id number] Given 01/06/2015 Influenza Virus Vaccine, Quadrivalent, Split, Preservative Free [id number] Given 02/05/2011 Pneumococcal Vaccine 2Yrs Or Older Vital Signs Date Vital Result Comment 12/19/2020 3:03pm Heart Rate 60 /min Body Temperature 98.8 F Respiratory Rate 18 /min O2 % BldC Oximetry 99 % 12/17/2020 7:00pm Height 60.98 inches 5'0.98" Weight 180.06 lb Weight 81.700 kg BMI (Body Mass Index) 34.03 kg/m2 Results Test Acquired Date Facility Test Result [...] Antibody Screen Negative Testing site Performed AT [address] [place] [address] Blood bank comment See Notes 4 aPTT 12/18/2020 N2N/CCD Import aPTT 130.9 s Critical high 22.0 - 34.3 5 Covid/Flu AB/RSV PCR 12/17/2020 N2N/CCD Import Specimen Description Nasopharyngeal Influenza A Negative Negative Influenza B Negative Negative RSV Negative Negative Comment See Notes 6 Covid19 Result Not Detected Not Detected 7 First Test Unknown Employed In [employer] Unknown Symptomatic No Date Of Sympt Onset Not Applicable Hospitalized Yes Icu No Congregate Care Set Unknown No PT/PTT 12/11/2020 [facility] [address] [place] [address] [phone] Protime 29.8 seconds High 11.0 - 15.5 8 Inr 2.79 High 0.93 - 1.23 PTT 49.2 seconds High 24.8 - 36.7 9 CBC W/Automated Diff 12/11/2020 [facility] [address] [place] [address] [phone] CBC W/Automated Diff (SEE NOTE) 10 WBC [...] Lymph 15.9 % Low 25.0 - 40.0 Rush 10.5 % High 3.0 - 8.0 Eos 3.6 % 0.0 - 7.0 Baso 0.5 % 0.0 - 2.5 %Ig 0.2 % High 0.0 - 0.0 %NRBC 0.0 % 0.0 - 0.0 #Neut 5.62 10^3/uL 2.00 - 6.90 #Lymph 1.29 10^3/uL 0.60 - 3.40 #Rush 0.85 10^3/uL 0.00 - 0.90 #Eos 0.29 10^3/uL 0.00 - 0.70 #Baso 0.04 10^3/uL 0.00 - 0.20 #Ig 0.02 10^3/uL 0.00 - 0.10 #NRBC 0.00 10^3/uL 0.00 - 0.00 Manual Diff NOT INDICATED RBC Morph NOT INDICATED Basic Metabolic Panel 12/11/2020 [facility] [address] [place] [phone] Basic Metabolic Pane (SEE NOTE) 11 Sodium [...] 36 mL/min 12 CBC W/Automated Diff [facility] [address] [place] [address] [phone] CBC W/Automated Diff (SEE NOTE) 13 WBC [...] Lymph 17.8 % Low 25.0 - 40.0 Rush 8.9 % High 3.0 - 8.0 Eos 3.2 % 0.0 - 7.0 Baso 0.4 % 0.0 - 2.5 %Ig 0.4 % High 0.0 - 0.0 %NRBC 0.0 % 0.0 - 0.0 #Neut 5.66 10^3/uL 2.00 - 6.90 #Lymph 1.45 10^3/uL 0.60 - 3.40 #Rush 0.73 10^3/uL 0.00 - 0.90 #Eos 0.26 10^3/uL 0.00 - 0.70 #Baso 0.03 10^3/uL 0.00 - 0.20 #Ig 0.03 10^3/uL 0.00 - 0.10 #NRBC 0.00 10^3/uL 0.00 - 0.00 Manual Diff NOT INDICATED RBC Morph NOT INDICATED PT/PTT 09/04/2020 [facility] [address] [place] [address] [phone] Protime 20.0 seconds High 11.0 - 15.5 Inr 1.62 High 0.93 - 1.23 PTT 38.6 seconds High 24.8 - 36.7 14 Basic Metabolic Panel 09/04/2020 [facility] [address] [place] [phone] Basic Metabolic Pane (SEE NOTE) 15 Sodium [...] 38 mL/min 16 Xray 08/03/2020 Main Office [phone] Arterial Ultrasound Lower Extremity Left <pending> 1 PERFORMED BY [facility] 2 SUGGESTED THERAPEUTIC RANGES [...] TO A LERTED CRITICAL RESULT TO ALONZO [id number] ON D4 [id number] [place] [id number] 6 SEE NOTE: THE [place] FDA HAS M SHERMAN THIS TEST AVAILABLE UNDER AN EMERGENCY USE AUTHORIZATION (EUA) FOR THE DETECTION AND/OR DIAGNOSIS OF THE VIRUS THAT CAUSES COVID-19. PERFORMED AT [address] [place] [address] 7 THIS ASSAY AMPLIFIES AND DET ECTS THE TARGET RNA USING REAL-TIME PCR. TESTING PERFORMED ON [employer] NEGATIVE 2019_NCOV RT-PCR RESULTS DO NOT PRECLUDE 2019_NCOV INFECTION AND SHOULD NOT BE USED THE SOLE BASIS FOR PATIENT MANAGEMENT DECISIONS. [address]K Cm(he follows her Coumadin) 9 \\BLDo\\INR INTERPRETATION\\BLD x\\ Therapeutic range for Coumadin and related oral anticoagulants. -International Normalized Ratio (INR): 2 .0 - 3.0 for Venous Thrombosis, Pulmonary Embolus, Tissue heart valves, Acute [place] Atrial Fibrillation, Valvular heart disease and recurrent [...] Thrombosis, Pulmonary Embolus, Tissue heart valves, Acute [place] Atrial Fibrillation, Valvular heart disease and recurrent [...] Normal Procedures Date Code Description Status 12/18/2020 42549 Moderate Sedation Se rvices; Same Phys Intl 15 Mins; PT >= 5 Years Completed 12/18/2020 01774 Ultrasound Guidance Completed 12/18/2020 70407 Angiography-Extremity Unilateral Completed 12/18/2020 99202 Catheter Placement A rterial System Init 2ND Ord Abdom/Pel/Low Ext Completed 12/17/2020 25423 Electrocardiogram Tracing Only C ompleted 11/23/2020 45807 Duplex Scan Extracranial Arterie s, Complete Bilateral Study Completed 09/14/2020 10939 Moderate Sedation Se rvices; Same Phys Intl 15 Mins; PT >= 5 Years Completed 09/14/2020 70901 Angiography-Extremity Unilateral Completed 09/14/2020 63023 Femoral-Popliteal Angioplasty Co mpleted 08/03/2020 21776 Duplex Scan Lower Extremity, Fol low-Up Or Limited Completed 08/03/2020 67366 Duplex Scan Lower Extremity, Fol low-Up Or Limited Completed Medical Devices Description No Information Available Encounters Type Date Location Provider Dx Diagnosis Office Visit 11/23/2020 10:00a Main Office Bandar Grigsby M.D. I65.21 Occlusion and stenosis of right carotid artery I70.245 [facility] [place] [facility] of le ft leg w ulceration oth prt foot Office Visit 10/14/2020 10:15a Main Office Bandar Grigsby M.D. 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 Z95.82 0 Peripheral vascular angioplasty status w implants and grafts Office Visit 08/03/2020 9:30a Main Office Bandar Grigsby M.D. I70.21 2 [facility] [place] [facility] of extrm w intrmt walter, left leg I65.23 Occlusion and stenosis of bi lateral carotid arteries Z48.812 Encntr for surgical aftcr fo llowing surgery on the circ sys Assessments Date Code Description Provider 12/18/2020 I70.212 Atherosclerosis of n ative arteries [...] circulatory system Vascular Lab Plan of Treatment Future Appointment(s):* 2021 9:30 am - Johnnie Lopez M.D. at Main Office 11/23/2020 - Bandar Grigbsy M.D.* I65.21 Occlusion and stenosis of right carotid artery * I70.245 [facility] [place] [facility] of left leg w ulceration oth prt foot * Functional Status Description No Information Available Mental Status Description No Information Available Referrals Description No Information Available
--- OUTSIDE RECORDS SUMMARY | 2021-02-20 20:47 | CCD | Continuity of Care Document ---
Author Author Joy BROWN M[facility] P.[facility] 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 AUTM [phone] NAN SOTOMAYOR M.D. PMariferCMarifer AUTM [phone] Akash Cm M.D. PCP [phone] Social History Type Date Description Comments Sex Unknown Allergies, Adverse Reactions, Alerts Active Allergies Reaction Severity Comments Date Penicillin V 04/16/2020 Aloe Vera Economy Extract 04/16 Adhesives 04/16/2020 Medications Active Medications [...] 6.25mg Tablets Take One Tablet By Mouth Twice A Day 180tabs Nan Sotomayor M[facility] Clopidogrel Bisulfate 75mg Tablets Take One Tablet By Mouth Every Day 90tabs Nan Sotomayor M[facility] , P.C[facility] Omeprazole 20mg Capsules Akash Hernandez M.D. Levothyroxine Sodium 100mcg Tablets Akash Cm M.D. Buspirone HCL 7.5mg Tablets [facility]ish [facility] Allopurinol 100mg Tablets Trish DockeryBUD Warfarin Sodium 1mg Tablets take 3 mg qd with 1 mg one day of the week only Akash Cm M.D. Pregabalin 75mg Capsules Sol Vera Medications Administered in Office Medication SIG Qnty Indications Ordering Provider Date Lexiscan Injection Nan Sotomayor M.D[facility] 04/09/2020 Technetium TC 99M Sestamibi Injection Nan Sootmayor M.D., P.C. 04/09/2020 Technetium TC 99M Sestamibi Injection Nan Sotomayor M[facility] 07/25/2017 Technetium TC 99M Sestamibi Injection Nan Sotomayor M.D[facility] P.[facility] 10/07/2016 Vital Signs Date Vital Result Comment 11/19/2020 11:15am Height 60 inches 5'0" Body Temperature 97.0 F BP Systolic 105 mmHg BP Diastolic 43 mmHg Heart Rate 60 /min O2 % BldC Oximetry 96 % 10/20/2020 1:29pm Height 60 inches 5'0" Weight 200.00 lb stated BMI (Body Mass Index) 39.1 kg/m2 Body Temperature 97.7 F BP Systolic 151 mmHg BP Diastolic 67 mmHg Heart Rate 60 /min O2 % BldC Oximetry 98 % Results Test Acquired Date Facility Test Result H/L Range Note Laboratory test finding 10/13/2020 [facility] [address] [place] [address] [phone] Magnesium Serum 2.2 mg/dL 1.7 - 2.2 Comprehensive Metabolic Panel 10/13/2020 [facility] [address] [place] [address] [phone] Comprehensive Metabo (SEE NOTE) 1 Sodium 139 [...] GFR >60 2 CBC W/Automated Diff 10/13/[address] [address] [phone] CBC W/Automated Diff (SEE NOTE) 3 WBC [...] Lymph 12.8 % Low 25.0 - 40.0 Coles 13.5 % High 3.0 - 8.0 Eos 3.1 % 0.0 - 7.0 Baso 0.3 % 0.0 - 2.5 %Ig 0.2 % High 0.0 - 0.0 %NRBC 0.0 % 0.0 - 0.0 #Neut 6.04 10^3/uL 2.00 - 6.90 #Lymph 1.10 10^3/uL 0.60 - 3.40 #Coles 1.16 10^3/uL High 0.00 - 0.90 #Eos 0.27 10^3/uL 0.00 - 0.70 #Baso 0.03 10^3/uL 0.00 - 0.20 #Ig 0.02 10^3/uL 0.00 - 0.10 #NRBC 0.00 10^3/uL 0.00 - 0.00 Manual Diff SEE BELOW Segs 72 % 37 - 80 %Lymph 13 % Low 25 - 40 %Coles 14 % High 3 - 8 %Eos 1 % 0 - 7 RBC Morph NOT INDICATED Protime 10/13/[address] [address] [phone] Protime 19.6 seconds High 11.0 - 15.5 Inr 1.64 High 0.93 - 1.23 4 Protime 10/12/[address] [address] [phone] Protime 20.8 seconds High 11.0 - 15.5 Inr 1.76 High 0.93 - 1.23 5 Laboratory test finding 10/12/2020 [facility] [address] [place] [address] [phone] Magnesium Serum 1.9 mg/dL 1.7 - 2.2 Comprehensive Metabolic Panel 10/12/2020 [facility] [address] [place] [address] [phone] Comprehensive Metabo (SEE NOTE) 6 Sodium 140 [...] GFR >60 7 CBC W/Automated Diff 10/12/[address] [address] [phone] CBC W/Automated Diff (SEE NOTE) 8 WBC [...] Lymph 15.8 % Low 25.0 - 40.0 Coles 13.1 % High 3.0 - 8.0 Eos 3.9 % 0.0 - 7.0 Baso 0.5 % 0.0 - 2.5 %Ig 0.1 % High 0.0 - 0.0 %NRBC 0.0 % 0.0 - 0.0 #Neut 5.41 10^3/uL 2.00 - 6.90 #Lymph 1.28 10^3/uL 0.60 - 3.40 #Coles 1.06 10^3/uL High 0.00 - 0.90 #Eos 0.32 10^3/uL 0.00 - 0.70 #Baso 0.04 10^3/uL 0.00 - 0.20 #Ig 0.01 10^3/uL 0.00 - 0.10 #NRBC 0.00 10^3/uL 0.00 - 0.00 Manual Diff SEE BELOW Segs 62 % 37 - 80 Band 0 % 0 - 5 %Lymph 26 % 25 - 40 %Coles 9 % High 3 - 8 %Eos 3 % 0 - 7 %Baso 0 % 0 - 2 RBC Morph NOT INDICATED Comprehensive Metabolic Panel 10/11/2020 [facility] [address] [place], [place] [id number] [phone] Comprehensive Metabo (SEE NOTE) 9 Sodium 143 [...] GFR >60 10 Laboratory test finding 10/11/2020 [facility] [address] [place] [address] [phone] Iron 31 g/dL Low 42 - 135 Laboratory test finding 10/11/2020 [facility] [address] [place] [address] [phone] Magnesium Serum 2.0 mg/dL 1.7 - 2.2 Protime 10/11/2020 [place] [address] [phone] Protime 23.4 seconds High 11.0 - 15.5 Inr 2.05 High 0.93 - 1.23 11 CBC W/Automated Diff 10/11/2020 [place] [address] [phone] CBC W/Automated Diff (SEE NOTE) 12 WBC [...] Lymph 15.2 % Low 25.0 - 40.0 Coles 11.7 % High 3.0 - 8.0 Eos 2.8 % 0.0 - 7.0 Baso 0.4 % 0.0 - 2.5 %Ig 0.1 % High 0.0 - 0.0 %NRBC 0.0 % 0.0 - 0.0 #Neut 5.42 10^3/uL 2.00 - 6.90 #Lymph 1.18 10^3/uL 0.60 - 3.40 #Coles 0.91 10^3/uL High 0.00 - 0.90 #Eos 0.22 10^3/uL 0.00 - 0.70 #Baso 0.03 10^3/uL 0.00 - 0.20 #Ig 0.01 10^3/uL 0.00 - 0.10 #NRBC 0.00 10^3/uL 0.00 - 0.00 Manual Diff NOT INDICATED RBC Morph NOT INDICATED Protime 10/10/2020 [place] [address] [phone] Protime 29.4 seconds High 11.0 - 15.5 Inr 2.74 High 0.93 - 1.23 13 Laboratory test finding 10/10/2020 [place] [address] [phone] D-Dimer 2.91 ug/mL High 0.27 - 0.50 CBC W/Automated Diff 10/10/2020 [place] [address] [phone] CBC W/Automated Diff (SEE NOTE) 14 WBC [...] Lymph 14.4 % Low 25.0 - 40.0 Coles 13.5 % High 3.0 - 8.0 Eos 4.0 % 0.0 - 7.0 Baso 0.3 % 0.0 - 2.5 %Ig 0.1 % High 0.0 - 0.0 %NRBC 0.0 % 0.0 - 0.0 #Neut 4.78 10^3/uL 2.00 - 6.90 #Lymph 1.02 10^3/uL 0.60 - 3.40 #Coles 0.95 10^3/uL High 0.00 - 0.90 #Eos 0.28 10^3/uL 0.00 - 0.70 #Baso 0.02 10^3/uL 0.00 - 0.20 #Ig 0.01 10^3/uL 0.00 - 0.10 #NRBC 0.00 10^3/uL 0.00 - 0.00 Manual Diff NOT INDICATED RBC Morph NOT INDICATED Laboratory test finding 10/10/2020 [facility] [address] [place] [address] [phone] Magnesium Serum 2.2 mg/dL 1.7 - 2.2 Vitamin B12 Serum 587 pg/mL 232 - 1245 Pro-BNP 7701 pg/mL High 0 - 450 Iron 33 g/dL Low 42 - 135 Comprehensive Metabolic Panel 10/10/2020 [facility] [address] [place] [address] [phone] Comprehensive Metabo (SEE NOTE) 15 Sodium 144 [...] Amer GFR >60 16 Cve Panel 10/10/2020 [place] [address] [phone] Cve Panel (SEE NOTE) 17 Cholesterol 83 mg/dL Low 131 - 200 Triglycerides 72 mg/dL 35 - 160 HDL 30 mg/dL 29 - 86 LDL 45 mg/dL Low 65 - 175 Risk Factor 2.8 Low 3.2 - 4.4 LDL/HDL 1.50 1.47 - 3.22 18 Laboratory test finding 10/10/[address] [address] [phone] Troponin T 0.06 NG/ML 0.00 - 0.10 19 TSH Highly Sensitive 16.18 uIU/mL High 0.47 - 5.01 T4 - Free 0.90 ng/dL Low 0.93 - 1.70 Protime 10/09/[address] [address] [phone] Protime 29.0 seconds High 11.0 - 15.5 Inr 2.69 High 0.93 - 1.23 20 Laboratory test finding 10/09/[address] [address] [phone] Magnesium Serum 2.2 mg/dL 1.7 - 2.2 Hgba1c 8.7 % High 4.4 - 6.1 21 Troponin T 0.05 NG/ML 0.00 - 0.10 22 Culture Urine 10/09/[address] [address] [phone] Culture Urine (SEE NOTE) 23 1 COMPREHENSIVE [...] Thrombosis, Pulmonary Embolus, Tissue heart valves, Acute DE, Atrial Fibrillation, Valvular heart disease and recurrent Systemic Embolism. -International Normalized Ratio (INR): 2 .5 - 3.5 for Mechanical Prosthetic valve. 5 \\BLDo\\INR INTERPRETATION\\BLD x\\ Therapeutic range for Coumadin and related oral anticoagulants. -International Normalized Ratio (INR): 2 .0 - 3.0 for Venous Thrombosis, Pulmonary Embolus, Tissue heart valves, Acute DE, Atrial Fibrillation, Valvular heart disease and recurrent [...] Thrombosis, Pulmonary Embolus, Tissue heart valves, Acute DE, Atrial Fibrillation, Valvular heart disease and recurrent Systemic Embolism. -International Normalized Ratio (INR): 2 .5 - 3.5 for Mechanical Prosthetic valve. 12 COMPLETE BLOOD COUNT 13 \\BLDo\\INR INTERPRETATION\\BLD x\\ Therapeutic range for Coumadin and related oral anticoagulants. -International Normalized Ratio (INR): 2 .0 - 3.0 for Venous Thrombosis, Pulmonary Embolus, Tissue heart valves, Acute DE, Atrial Fibrillation, Valvular heart disease and recurrent [...] Thrombosis, Pulmonary Embolus, Tissue heart valves, Acute DE, Atrial Fibrillation, Valvular heart disease and recurrent Systemic Embolism. -International Normalized Ratio (INR): 2 .5 - 3.5 for Mechanical Prosthetic valve. 21 {A1] {HB] 22 TROPONIN T 0.1 ng/ml Recommended as the clinical th reshold value for Troponin T. 23 _CULTURE URINE_ ^$[id number] ^^711123 $$217841 ^^578750 $$309680 $$870553 $$566450 $$882624 $$501750 $$010143 $$000891 $$585125 $$625980 $$281469 $$807247 $$844437 $$157073 $$609025 $$396278 $$373373 $$041859 $$274757 $$342362 $$219459 $$078822 $$554593 $$489147 ^^485193 $$177341 $$231335 $$219328 -- Continued on next page -- Patient: ANNA Medina Order: Page 2 Culture: CULTURE URINE Status: Final -- Continued on next page -- Patient: ANNA Medina Order: Page 2 Culture: CULTURE URINE Status: Prelim $$[id number] $$[id number] REPORTED DATE/TIME: 10/13/2020 14:07 Culture: CULTURE URINE [...] coli Flag: A Patient: ANNA Medina Order: [id number] Page 3 Culture: CULTURE URINE Status: Final [...] S S . . . . . .89135-3 Gentamicin S S . . . . . .267-5 Imipenem S S . . . . . .279-0 Levofloxacin S S . . . . . .45681-9 Meropenem S S . . . . . .6652-2 Nitrofurantoin S S . . . . . .363-2 Piperacillin/Tazobactam S S . . . . . .412-7 Tetracycline S S . . . . . .496-0 Tobramycin S S . . . . . .508-2 Trimethoprim/Sulfa S S . . . . . .516-5 P1 Test performed by: [facility] SANDERS #: [id number] [address] [place] [phone] [facility] [address] Intellectual Property Counsel : Sea Pena MD NPI #: Diver Pumper : 10/12/[email or web address].SENT REF 10/13/20.1419.XMT.SENT REF 10/13/20. .to MANUEL HERRMANN via mode m 10/13/20. .to NAUN CHAIDEZJASSON via fax Procedures Date Code Description Status 11/19/2020 92622 Office/Outpatient Established Mo d MDM 30-39 Min Completed 10/20/2020 72677 Office/Outpatient Established Mo d MDM 30-39 Min Completed 10/20/2020 89377 EKG Completed 10/13/2020 73872 Hospital Disch MGMT Completed 10/12/2020 23281 Hospital Care Low Completed 10/11/2020 13605 Hospital Care Low Completed 10/10/2020 48977 Hospital Care Moderate Completed 10/09/2020 18845 Hospital Care Initial Level 2 Co mpleted 09/10/2020 60163 Office/Outpatient Established Lo w MDM 20-29 Min Completed 09/10/2020 19424 Pacemaker Inerrogation Completed 08/06/2020 22227 Office/Outpatient Established Mo d MDM 30-39 Min Completed 07/15/2020 75672 Office/Outpatient Established Mo d MDM 30-39 Min Completed 07/15/2020 12344 EKG Completed 06/17/2020 91452 Office/Outpatient Established Mo d MDM 30-39 Min Completed Encounters Type Date Location Provider Dx Diagnosis Office Visit 11/19/2020 11:15a [facility] Nan Sotomayor M[facility] .[facility] I11.9 Hypertensive heart disease without heart failure E10.9 Type 1 diabetes mellitus wit hout complications I50.20 Unspecified systolic (conges tive) heart failure I34.0 Nonrheumatic mitral (valve) insufficiency Office Visit 10/20/2020 1:15p [facility] Nan Sotomayor M[facility] .[facility] I50.20 Unspecified systolic (congestive) heart failure I48.0 Paroxysmal atrial fibrillati on I11.9 Hypertensive heart disease w ithout heart failure I49.49 Other premature depolarizati on Office Visit 09/10/2020 1:30p [facility] Nan Sotomayor M.D[facility] .[facility] 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 466.0 Bronchitis Acute I48.0 Paroxysmal atrial fibrillati on E10.9 Type 1 diabetes mellitus wit hout complications I11.9 Hypertensive heart disease w [facility] heart failure Office Visit 07/15/2020 11:30a [facility] Nan Sotomayor M.D[facility] .[facility] I48.0 Paroxysmal atrial fibrillation E10.9 Type 1 diabetes mellitus wit hout complications I11.9 Hypertensive heart disease w [facility] heart failure I50.20 Unspecified systolic (conges tive) heart failure I49.49 Other premature depolarizati on Office Visit 06/17/2020 10:00a [facility] Nan Sotomayor M.D[facility] .[facility] I48.0 Paroxysmal atrial fibrillation E10.9 Type 1 diabetes mellitus wit hout complications I11.9 Hypertensive heart disease w [facility] heart failure E78.5 Hyperlipidemia, unspecified Assessments Date Code Description Provider 11/19/2020 I11.9 Hypertensive heart disease witho ms heart failure Nan Sotomayor M.D[facility]. 11/19/2020 [...] P.C. 09/10/2020 I11.9 Hypertensive heart disease witho ms heart failure Nan Sotomayor M.D[facility]. 09/10/2020 [...] P.C. 08/06/2020 I11.9 Hypertensive heart disease witho ms heart failure Nan Sotomayor M.D[facility] 07/15/2020 I48.0 Paroxysmal atrial fibrillation Love Sotomayor M.D., P.C. 07/15/2020 E10.9 Type 1 diabetes mellitus without complications Nan Sotomayor M.D[facility] 07/15/2020 I11.9 Hypertensive heart disease witho ms heart failure Nan Sotomayor M.D[facility]. 07/15/2020 [...] M.D., P.C. Plan of Treatment Future Appointment(s):* 12/22/2020 11:30 am - Nan Sotomayor [facility] at [facility] * 12/14/2020 1:30 pm - Nan Sotomayor M[facility] at [facility]
--- OUTSIDE RECORDS SUMMARY | 2021-02-20 20:47 | CCD | Continuity of Care Document ---
Author Author Joy GARCIA Organization Unknown Address [address] [place] [address] Phone [phone] Care Team Providers Care Md Do [facility] Name Role Phone Sol Vera AUTM [phone] Problems Description No Information Available Social History Type Date Description Comments Sex Unknown Tobacco Use Start: Unknown Never Smoked Cigarettes Tobacco Use Start: Unknown Non-smoker, Non-drinker, Non-mary g User Smoking Status Reviewed: 11/27/20 Non-smoker, Non-drinker, Non- drug User Tobacco Use Start: Unknown Patient has never smoked Exercise Type/Frequency Does not exercise Allergies, Adverse Reactions, Alerts Active Allergies Reaction Severity Comments Date Penicillin V 11/27/2020 Aloe Extract 11/27/2020 sulfa 11/27/2020 NSAIDS 11/27/2020 Medications Active Medications SIG Qnty Indications Ordering Provide r Date Pregabalin 75 MG. Twice A Day Unknown 00/00/ 0000 Immunizations Description No Information Available Vital Signs Date Vital Result Comment 11/27/2020 2:26pm BP Systolic 108 mmHg BP Diastolic 60 mmHg Height 58 inches 4'10" Weight 178.00 lb BMI (Body Mass Index) 37.2 kg/m2 BSA (Body Surface Area) 1.73 m2 Results Description No Information Available Procedures Date Code Description Status 11/27/2020 93690 Office/Outpatient New Moderate M DM 45-59 Minutes Completed Medical Devices Description No Information Available Encounters Type Date Location Provider Dx Diagnosis Office Visit 11/27/2020 2:00p [facility] code and test clerk Purvi Garcia MD N9 5.0 Postmenopausal bleeding N95.2 Postmenopausal atrophic vagi nitis Z91.89 Oth personal risk factors, n ot elsewhere classified R15.9 Full incontinence of feces K64.8 Other hemorrhoids N32.81 Overactive bladder N39.41 Urge incontinence R35.1 Nocturia Assessments Date Code Description Provider 11/27/2020 N95.0 Postmenopausal bleeding Purvi Garcia MD 11/27/2020 N95.2 Postmenopausal atrophic vaginiti s Purvi Garcia MD 11/27/2020 Z91.89 Other specified pers onal risk factors, not elsewhere classified Purvi Garcia MD 11/27/2020 R15.9 Full incontinence of feces Purvi Lainez MD 11/27/2020 K64.8 Other hemorrhoids Purvi Garcia MD 11/27/2020 N32.81 Overactive bladder Paul Garcia i, MD 11/27/2020 N39.41 Urge incontinence Purvi Garcia MD 11/27/2020 R35.1 Nocturia Purvi Garcia Plan of Treatment Future Appointment(s):* 02/26/2021 2:30 pm - Purvi Garcia MD at [facility] code and test clerk 11/27/2020 - Purvi Garcia MD* N95.0 Postmenopausal bleeding * N95.2 Postmenopausal atrophic vaginitis * Z91.89 Other specified personal risk factors, not elsewhere classified * R15.9 Full incontinence of feces * K64.8 Other hemorrhoids * N32.81 Overactive bladder * N39.41 Urge incontinence * R35.1 Nocturia Functional Status Description No Information Available Mental Status Description No Information Available Referrals Description No Information Available
--- OUTSIDE RECORDS SUMMARY | 2021-02-20 20:47 | CCD | Continuity of Care Document ---
Author Author Joy GARCIA Organization Unknown Address [address] [place] [address] Phone [phone] Care Team Providers Care Automobile Bumper Straightener Name Role Phone Jody Sol BRETT AUTM [phone] Problems Description No Information Available Social History Type Date Description Comments Sex Unknown Tobacco Use Start: Unknown Never Smoked Cigarettes Tobacco Use Start: Unknown Non-smoker, Non-drinker, Non-mary g User Smoking Status Reviewed: 11/27/20 Non-smoker, Non-drinker, Non- drug User Exercise Type/Frequency Does not exercise Allergies, Adverse [...] m2 Results Description No Information Available Procedures Description No Information Available Medical Devices Description No Information Available Encounters Description No Information Available Assessments Description No Information Available Plan of Treatment Future Appointment(s):* 02/26/2021 2:30 pm - Purvi Garcia MD at [facility] stunt man Functional Status Description No Information Available Mental Status Description No Information Available Referrals Description No Information Available
--- OUTSIDE RECORDS SUMMARY | 2021-02-20 20:47 | CCD | Continuity of Care Document ---
Author Author Joy GARCIA Organization Unknown Address [address] [place] [address] Phone [phone] Care Team Providers Care Office Chair Assembler Name Role Phone Sol Vera AUTM [phone] Problems Description No Information Available Social History [...] BSA (Body Surface Area) 1.73 m2 Results Test Acquired Date Facility Test Result H/L Range Note Thinprep W/Reflex HR HPV If Asc-US 11/27/2020 Propa th TP Reflex HPV ASCUS Normal Normal 1 TP Reflex HPV ASCUS SEE IMAGE 1 SPECIME N PART A. 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 SPECIMEN ADEQUACY:Satisfactory for evaluation. Endocervical/transformation zone component present. ADDITIONAL FINDINGS:Fungal organisms consistent with Mirian spp. Procedures Date Code Description Status 11/27/2020 97384 Office/Outpatient New Moderate M DM 45-59 Minutes Completed Medical Devices Description No Information Available Encounters Type Date Location Provider Dx Diagnosis Office Visit 11/27/2020 2:00p [facility] printed circuit board drafter Purvi Garcia MD N9 5.0 Postmenopausal bleeding [...] 2:30 pm - Purvi Garcia MD at [facility] printed circuit board drafter 11/27/2020 - Purvi Garcia MD* N95.0 Postmenopausal [...]
--- OUTSIDE RECORDS SUMMARY | 2021-02-20 20:53 | CCD ---
Author Author [facility] Address Unknown Phone Unavailable Care Team Providers Care Hand Marker Name Role Phone KIRSCHMAN, L JOSELIN DIRECTOR SKILLS Unavailable Unavailable KIRSCHMAN, L JOSELIN DIRECTOR SKILLS Unavailable Unavailable KIRSCHMAN, L JOSELIN DIRECTOR SKILLS Unavailable Unavailable KIRSCHMAN, L JOSELIN DIRECTOR SKILLS Unavailable Unavailable KIRSCHMAN, L JOSELIN DIRECTOR SKILLS Unavailable Unavailable KIRSCHMAN, L JOSELIN DIRECTOR SKILLS Unavailable Unavailable KIRSCHMAN, L JOSELIN DIRECTOR SKILLS Unavailable Unavailable KIRSCHMAN, L JOSELIN DIRECTOR SKILLS Unavailable Unavailable KIRSCHMAN, L JOSELIN DIRECTOR SKILLS Unavailable Unavailable KIRSCHMAN, L JOSELIN DIRECTOR SKILLS Unavailable Unavailable KIRSCHMAN, L JOSELIN DIRECTOR SKILLS Unavailable Unavailable KIRSCHMAN, L JOSELIN DIRECTOR SKILLS Unavailable Unavailable KIRSCHMAN, L JOSELIN DIRECTOR SKILLS Unavailable Unavailable KIRSCHMAN, L JOSELIN DIRECTOR SKILLS Unavailable Unavailable KIRSCHMAN, L JOSELIN DIRECTOR SKILLS Unavailable Unavailable KIRSCHMAN, L JOSELIN DIRECTOR SKILLS Unavailable Unavailable KIRSCHMAN, L JOSELIN DIRECTOR SKILLS Unavailable Unavailable KIRSCHMAN, L JOSELIN DIRECTOR SKILLS Unavailable Unavailable KIRSCHMAN, L JOSELIN DIRECTOR SKILLS Unavailable Unavailable KIRSCHMAN, L JOSELIN DIRECTOR SKILLS Unavailable Unavailable KIRSCHMAN, L JOSELIN DIRECTOR SKILLS Unavailable Unavailable KIRSCHMAN, L JOSELIN DIRECTOR SKILLS Unavailable Unavailable KIRSCHMAN, L JOSELIN DIRECTOR SKILLS Unavailable Unavailable KIRSCHMAN, L JOSELIN DIRECTOR SKILLS Unavailable Unavailable KIRSCHMAN, L JOSELIN DIRECTOR SKILLS Unavailable Unavailable KIRSCHMAN, L JOSELIN DIRECTOR SKILLS Unavailable Unavailable KIRSCHMAN, L JOSELIN DIRECTOR SKILLS Unavailable Unavailable KIRSCHMAN, L JOSELIN DIRECTOR SKILLS Unavailable Unavailable KIRSCHMAN, L JOSELIN DIRECTOR SKILLS Unavailable Unavailable KIRSCHMAN, L JOSELIN DIRECTOR SKILLS Unavailable Unavailable KIRSCHMAN, L JOSELIN DIRECTOR SKILLS Unavailable Unavailable KIRSCHMAN, L JOSELIN DIRECTOR SKILLS Unavailable Unavailable KIRSCHMAN, L JOSELIN DIRECTOR SKILLS Unavailable Unavailable KIRSCHMAN, L JOSELIN DIRECTOR SKILLS Unavailable Unavailable KIRSCHMAN, L JOSELIN DIRECTOR SKILLS Unavailable Unavailable KIRSCHMAN, L JOSELIN DIRECTOR SKILLS Unavailable Unavailable KIRSCHMAN, L JOSELIN DIRECTOR SKILLS Unavailable Unavailable KIRSCHMAN, L JOSELIN DIRECTOR SKILLS Unavailable Unavailable KIRSCHMAN, L JOSELIN DIRECTOR SKILLS Unavailable Unavailable KIRSCHMAN, L JOSELIN DIRECTOR SKILLS Unavailable Unavailable KIRSCHMAN, L JOSELIN DIRECTOR SKILLS Unavailable Unavailable KIRSCHMAN, L JOSELIN DIRECTOR SKILLS Unavailable Unavailable KIRSCHMAN, L JOSELIN DIRECTOR SKILLS Unavailable Unavailable KIRSCHMAN, L JOSELIN DIRECTOR SKILLS Unavailable Unavailable KIRSCHMAN, L JOSELIN DIRECTOR SKILLS Unavailable Unavailable KIRSCHMAN, L JOSELIN DIRECTOR SKILLS Unavailable Unavailable KIRSCHMAN, L JOSELIN DIRECTOR SKILLS Unavailable Unavailable Trickey, J Sol PA Unavailable Unavailable Trickey, J Sol PA Unavailable Unavailable Trickey, J Sol PA Unavailable Unavailable Trickey, J Sol PA Unavailable Unavailable Trickey, J Sol PA Unavailable Unavailable Trickey, J Sol PA Unavailable Unavailable Trickey, J Sol PA Unavailable Unavailable Trickey, J Sol PA Unavailable Unavailable Trickey, J Sol PA Unavailable Unavailable Trickey, J Sol PA Unavailable Unavailable Trickey, J Sol PA Unavailable Unavailable Trickey, J Sol PA Unavailable Unavailable Trickey, J Sol PA Unavailable Unavailable Trickey, J Sol PA Unavailable Unavailable Trickey, J Sol PA Unavailable Unavailable Trickey, J Sol PA Unavailable Unavailable Trickey, J Sol PA Unavailable Unavailable Trickey, J Sol PA Unavailable Unavailable Trickey, J Sol PA Unavailable Unavailable Trickey, J Sol PA Unavailable Unavailable Trickey, J Sol PA Unavailable Unavailable Trickey, J Sol PA Unavailable Unavailable Trickey, J Sol PA Unavailable Unavailable Trickey, J Sol PA Unavailable Unavailable Trickey, J Sol PA Unavailable Unavailable Trickey, J Sol PA Unavailable Unavailable Trickey, J Sol PA Unavailable Unavailable Trickey, J Sol PA Unavailable Unavailable Trickey, J Sol PA Unavailable Unavailable Trickey, J Sol PA Unavailable Unavailable Trickey, J Sol PA Unavailable Unavailable Trickey, J Sol PA Unavailable Unavailable Trickey, J Sol PA Unavailable Unavailable Trickey, J Sol PA Unavailable Unavailable Trickey, J Sol PA Unavailable Unavailable Trickey, J Sol PA Unavailable Unavailable Trickey, J Slo PA Unavailable Unavailable Trickey, J Sol PA Unavailable Unavailable Trickey, J Sol PA Unavailable Unavailable Trickey, J Sol PA Unavailable Unavailable Trickey, J Sol PA Unavailable Unavailable Trickey, J Sol PA Unavailable Unavailable Trickey, J Sol PA Unavailable Unavailable Trickey, J Sol PA Unavailable Unavailable Trickey, J Sol PA Unavailable Unavailable Trickey, J Sol PA Unavailable Unavailable Trickey, J Sol PA Unavailable Unavailable Trickey, J Sol PA Unavailable Unavailable Trickey, J Sol PA Unavailable Unavailable Yanna GARCIA MD Unavailable Unavailable Yanna GARCIA MD Unavailable Unavailable Yanna GARCIA MD Unavailable Unavailable Yanna GARCIA MD Unavailable Unavailable Yanna GARCIA MD Unavailable Unavailable Yanna GARCIA MD Unavailable Unavailable Yanna GARCIA MD Unavailable Unavailable Yanna GARCIA MD Unavailable Unavailable Yanna GARCIA MD Unavailable Unavailable Yanna GARCIA MD Unavailable Unavailable Yanna GARCIA MD Unavailable Unavailable Yanna GARCIA MD Unavailable Unavailable Yanna GARCIA MD Unavailable Unavailable Yanna GARCIA MD Unavailable Unavailable Yanna GARCIA MD Unavailable Unavailable Yanna GARCIA MD Unavailable Unavailable Yanna GARCIA MD Unavailable Unavailable Yanna GARCIA MD Unavailable Unavailable Yanna GARCIA MD Unavailable Unavailable Yanna GARCIA MD Unavailable Unavailable Yanna GARCIA MD Unavailable Unavailable Yanan GARCIA MD Unavailable Unavailable Yanna GARCIA MD Unavailable Unavailable Yanna GARCIA MD Unavailable Unavailable Yanna GARCIA MD Unavailable Unavailable Yanna GARCIA MD Unavailable Unavailable Yanna GARCIA MD Unavailable Unavailable Yanna GARCIA MD Unavailable Unavailable Yanna GARCIA MD Unavailable Unavailable Yanna GARCIA MD Unavailable Unavailable Yanna GARCIA MD Unavailable Unavailable Yanna GARCIA MD Unavailable Unavailable Yanna GARCIA MD Unavailable Unavailable Yanna GARCIA MD Unavailable Unavailable Yanna AGRCIA MD Unavailable Unavailable Yanna GARCIA MD Unavailable Unavailable Yanna GARCIA MD Unavailable Unavailable Yanna GARCIA MD Unavailable Unavailable Yanna GARCIA MD Unavailable Unavailable Yanna GARCIA MD Unavailable Unavailable Yanna GARCIA MD Unavailable Unavailable Yanna GARCIA MD Unavailable Unavailable Yanna GARCIA MD Unavailable Unavailable Yanna GARCIA MD Unavailable Unavailable Yanna GARCIA MD Unavailable Unavailable Bandar, N Deal Unavailable Unavailable Bandar, N Deal Unavailable Unavailable Trickey, J Sol PA Unavailable Unavailable Trickey, J Sol PA Unavailable Unavailable Trickey, J Sol PA Unavailable Unavailable Trickey, J Sol PA Unavailable Unavailable Trickey, J Sol PA Unavailable Unavailable Trickey, J Sol PA Unavailable Unavailable Trickey, J Sol PA Unavailable Unavailable Trickey, J Sol PA Unavailable Unavailable Trickey, J Sol PA Unavailable Unavailable Trickey, J Sol PA Unavailable Unavailable Trickey, J Sol PA Unavailable Unavailable Trickey, J Sol PA Unavailable Unavailable Trickey, J Sol PA Unavailable Unavailable Trickey, J Sol PA Unavailable Unavailable Trickey, J Sol PA Unavailable Unavailable Trickey, J Sol PA Unavailable Unavailable Trickey, J Sol PA Unavailable Unavailable Trickey, J Sol PA Unavailable Unavailable Trickey, J Sol PA Unavailable Unavailable Trickey, J Sol PA Unavailable Unavailable Trickey, J Sol PA Unavailable Unavailable Trickey, J Sol PA Unavailable Unavailable Trickey, J Sol PA Unavailable Unavailable Trickey, J Sol PA Unavailable Unavailable Trickey, J Sol PA Unavailable Unavailable Trickey, J Sol PA Unavailable Unavailable Trickey, J Sol PA Unavailable Unavailable Trickey, J Sol PA Unavailable Unavailable Trickey, J Sol PA Unavailable Unavailable Trickey, J Sol PA Unavailable Unavailable Trickey, J Sol PA Unavailable Unavailable Trickey, J Sol PA Unavailable Unavailable Trickey, J Sol PA Unavailable Unavailable Trickey, J Sol PA Unavailable Unavailable Trickey, J Sol PA Unavailable Unavailable Trickey, J Sol PA Unavailable Unavailable Trickey, J Sol PA Unavailable Unavailable Trickey, J Sol PA Unavailable Unavailable Trickey, J Sol PA Unavailable Unavailable Trickey, J Sol PA Unavailable Unavailable Trickey, J Sol PA Unavailable Unavailable Trickey, J Sol PA Unavailable Unavailable Trickey, J Sol PA Unavailable Unavailable Trickey, J Sol PA Unavailable Unavailable Trickey, J Sol PA Unavailable Unavailable Trickey, J Sol PA Unavailable Unavailable Trickey, J Sol PA Unavailable Unavailable Trickey, J Sol PA Unavailable Unavailable Trickey, J Sol PA Unavailable Unavailable MANUEL, MAQBOOL BOLIVAR MD Unavailable Unavailable MANUEL, MAQBOOL BOLIVAR MD Unavailable Unavailable MANUEL, MAQBOOL BOLIVAR MD Unavailable Unavailable MANUEL, MAQBOOL BOLIVAR MD Unavailable Unavailable MANUEL, MAQBOOL BOLIVAR MD Unavailable Unavailable MANUEL, MAQBOOL BOLIVAR MD Unavailable Unavailable MANUEL, MAQBOOL BOLIVAR MD Unavailable Unavailable MANUEL, MAQBOOL BOLIVAR MD Unavailable Unavailable MANUEL, MAQBOOL BOLIVAR MD Unavailable Unavailable MANUEL, MAQBOOL BOLIVAR MD Unavailable Unavailable MANUEL, MAQBOOL BOLIVAR MD Unavailable Unavailable MANUEL, MAQBOOL BOLIVAR MD Unavailable Unavailable MANUEL, MAQBOOL BOLIVAR MD Unavailable Unavailable MANUEL, MAQBOOL BOLIVAR MD Unavailable Unavailable MANUEL, MAQBOOL BOLIVAR MD Unavailable Unavailable MANUEL, MAQBOOL BOLIVAR MD Unavailable Unavailable MANUEL, MAQBOOL BOLIVAR MD Unavailable Unavailable MANUEL, MAQBOOL BOLIVAR MD Unavailable Unavailable MANUEL, MAQBOOL BOLIVAR MD Unavailable Unavailable MANUEL, MAQBOOL BOLIVAR MD Unavailable Unavailable MANUEL, MAQBOOL BOLIVAR MD Unavailable Unavailable MANUEL, MAQBOOL BOLIVAR MD Unavailable Unavailable MANUEL, MAQBOOL BOLIVAR MD Unavailable Unavailable MANUEL, MAQBOOL BOLIVAR MD Unavailable Unavailable MANUEL, MAQBOOL BOLIVAR MD Unavailable Unavailable MANUEL, MAQBOOL BOLIVAR MD Unavailable Unavailable MANUEL, MAQBOOL BOLIVAR MD Unavailable Unavailable MANUEL, MAQBOOL BOLIVAR MD Unavailable Unavailable MANUEL, MAQBOOL BOLIVAR MD Unavailable Unavailable MANUEL, MAQBOOL BOLIVAR MD Unavailable Unavailable MANUEL, MAQBOOL BOLIVAR MD Unavailable Unavailable MANUEL, MAQBOOL BOLIVAR MD Unavailable Unavailable MANUEL, MAQBOOL BOLIVAR MD Unavailable Unavailable MANUEL, MAQBOOL BOLIVAR MD Unavailable Unavailable MANUEL, MAQBOOL BOLIVAR MD Unavailable Unavailable MANUEL, MAQBOOL BOLIVAR MD Unavailable Unavailable MANUEL, MAQBOOL BOLIVAR MD Unavailable Unavailable MANUEL, MAQBOOL BOLIVAR MD Unavailable Unavailable MANUEL, MAQBOOL BOLIVAR MD Unavailable Unavailable MANUEL, MAQBOOL BOLIVAR MD Unavailable Unavailable MANUEL, MAQBOOL BOLIVAR MD Unavailable Unavailable MANUEL, MAQBOOL BOLIVAR MD Unavailable Unavailable MANUEL, MAQBOOL BOLIVAR MD Unavailable Unavailable MANUEL, MAQBOOL BOLIVAR MD Unavailable Unavailable MANUEL, MAQBOOL BOLIVAR MD Unavailable Unavailable MANUEL, MAQBOOL BOLIVAR MD Unavailable Unavailable MANUEL, MAQBOOL BOLIVAR MD Unavailable Unavailable MANUEL, MAQBOOL BOLIVAR MD Unavailable Unavailable MANUEL, MAQBOOL BOLIVAR MD Unavailable Unavailable MANUEL, MAQBOOL BOLIVAR MD Unavailable Unavailable MANUEL, MAQBOOL BOLIVAR MD Unavailable Unavailable MANUEL, MAQBOOL BOLIVAR MD Unavailable Unavailable MANUEL, MAQBOOL BOLIVAR MD Unavailable Unavailable MANUEL, MAQBOOL BOLIVAR MD Unavailable Unavailable MANUEL, MAQBOOL BOLIVAR MD Unavailable Unavailable MANUEL, MAQBOOL BOLIVAR MD Unavailable Unavailable MANUEL, MAQBOOL BOLIVAR MD Unavailable Unavailable MANUEL, MAQBOOL BOLIVAR MD Unavailable Unavailable MANUEL, MAQBOOL BOLIVAR MD Unavailable Unavailable MANUEL, MAQBOOL BOLIVAR MD Unavailable Unavailable MANUEL, MAQBOOL BOLIVAR MD Unavailable Unavailable MANUEL, MAQBOOL BOLIVAR MD Unavailable Unavailable MANUEL, MAQBOOL BOLIVAR MD Unavailable Unavailable MANUEL, MAQBOOL BOLIVAR MD Unavailable Unavailable MANUEL, MAQBOOL BOLIVAR MD Unavailable Unavailable MANUEL, MAQBOOL BOLIVAR MD Unavailable Unavailable MANUEL, MAQBOOL BOLIVAR MD Unavailable Unavailable MANUEL, MAQBOOL BOLIVAR MD Unavailable Unavailable MANUEL, MAQBOOL BOLIVAR MD Unavailable Unavailable MANUEL, MAQBOOL BOLIVAR MD Unavailable Unavailable MANUEL, MAQBOOL BOLIVAR MD Unavailable Unavailable MANUEL, MAQBOOL BOLIVAR MD Unavailable Unavailable MANUEL, MAQBOOL BOLIVAR MD Unavailable Unavailable MANUEL, MAQBOOL BOLIVAR MD Unavailable Unavailable MANUEL, MAQBOOL BOLIVAR MD Unavailable Unavailable MANUEL, MAQBOOL BOLIVAR MD Unavailable Unavailable MANUEL, MAQBOOL BOLIVAR MD Unavailable Unavailable MANUEL, MAQBOOL BOLIVAR MD Unavailable Unavailable Calista, N Bandar MD Unavailable Unavailable Calista, N Bandar MD Unavailable Unavailable Calista, N Bandar MD Unavailable Unavailable Calista N Bandar MD Unavailable Unavailable Calista N Bandar MD Unavailable Unavailable Calista N Bandar MD Unavailable Unavailable Calista N Bandar MD Unavailable Unavailable Calista N Bandar MD Unavailable Unavailable Calista N Bandar MD Unavailable Unavailable Calista N Bandar MD Unavailable Unavailable Calista N Bandar MD Unavailable Unavailable Calista, N Bandar MD Unavailable Unavailable Calista N Bandar MD Unavailable Unavailable Calista N Bandar MD Unavailable Unavailable Calista N Bandar MD Unavailable Unavailable Calista N Bandar MD Unavailable Unavailable Calista N Bandar MD Unavailable Unavailable Calista N Bandar MD Unavailable Unavailable Calista, N Bandar MD Unavailable Unavailable Calista N Bandar MD Unavailable Unavailable Calista N Bandar MD Unavailable Unavailable Calista N Bandar MD Unavailable Unavailable Calista N Bandar MD Unavailable Unavailable Calista N Bandar MD Unavailable Unavailable Calista N Bandar MD Unavailable Unavailable Calista, N Bandar MD Unavailable Unavailable Calista N Bandar MD Unavailable Unavailable Calista N Bandar MD Unavailable Unavailable Calista N Bandar MD Unavailable Unavailable Calista N Bandar MD Unavailable Unavailable Calista, N Bandar MD Unavailable Unavailable Calista N Bandar MD Unavailable Unavailable Calista, N Bandar MD Unavailable Unavailable Calista, N Bandar MD Unavailable Unavailable Calista N Bandar MD Unavailable Unavailable Calista N Bandar MD Unavailable Unavailable Calista N Bandar MD Unavailable Unavailable Calista N Bandar MD Unavailable Unavailable Calista, N Bandar MD Unavailable Unavailable Calista N Bandar MD Unavailable Unavailable Calista, N Bandar MD Unavailable Unavailable Calista N Bandar MD Unavailable Unavailable Calista N Bandar MD Unavailable Unavailable Calista N Bandar MD Unavailable Unavailable Calista, N Bandar MD Unavailable Unavailable Tiffanie Grigsby Bandar MD Unavailable Unavailable Tiffanie Grigsby Bandar MD Unavailable Unavailable iTffanie Grigsby Bandar MD Unavailable Unavailable Tiffanie Grigsby Bandar MD Unavailable Unavailable Tiffanie Grigsby Bandar MD Unavailable Unavailable Tiffanie Grigsby Bandar MD Unavailable Unavailable Tiffanie Grigsby Bandar MD Unavailable Unavailable Tiffanie Grigsby Bandar MD Unavailable Unavailable Tiffanie Grigsby Bandar MD Unavailable Unavailable Tiffanie Grigsby Bandar MD Unavailable Unavailable Tiffanie Grigsby Bandar MD Unavailable Unavailable Tiffanie Grigsby Bandar MD Unavailable Unavailable Tiffanie Grigsby Bandar MD Unavailable Unavailable Calista N Bandar MD Unavailable Unavailable Calitsa N Bandar MD Unavailable Unavailable Calista N Bandar MD Unavailable Unavailable Tiffanie Grigsby Bandar MD Unavailable Unavailable Tiffanie Grigsby Bandar MD Unavailable Unavailable Tiffanie Grigsby Bandar MD Unavailable Unavailable Tiffanie Grigsby Bandar MD Unavailable Unavailable Calista N Bandar MD Unavailable Unavailable Calista N Bandar MD Unavailable Unavailable Tiffanie Grigsby Bandar MD Unavailable Unavailable Tiffanie Grigsby Bandar MD Unavailable Unavailable Tiffanie Grigsby Bandar MD Unavailable Unavailable Tiffanie Grigsby Bandar MD Unavailable Unavailable Calista N Bandar MD Unavailable Unavailable Tiffanie Grigsby Bandar MD Unavailable Unavailable Calista N Bandar MD Unavailable Unavailable Tiffanie Grigsby Bandar MD Unavailable Unavailable Tiffanie Grigsby Bandar MD Unavailable Unavailable Tiffanie Grigsby Bandar MD Unavailable Unavailable Tiffanie Grigsby Bandar MD Unavailable Unavailable Tiffanie Grigsby Bandar MD Unavailable Unavailable Tiffanie Grigsby Bandar MD Unavailable Unavailable Tiffanie Grigsby Bandar MD Unavailable Unavailable Tiffanie Grigsby Bandar MD Unavailable Unavailable Tiffanie Grigsby Bandar MD Unavailable Unavailable Calista N Bandar MD Unavailable Unavailable Feola, T Mary PA Unavailable Unavailable Feola, T Mary PA Unavailable Unavailable Feola, T Mary PA Unavailable Unavailable Feola, T Mary PA Unavailable Unavailable Feola, T Mary PA Unavailable Unavailable Feola, T Mary PA Unavailable Unavailable Feola, T Mary PA Unavailable Unavailable Feola, T Mary PA Unavailable Unavailable Feola, T Mary PA Unavailable Unavailable Feola, T Mary PA Unavailable Unavailable Feola, T Mary PA Unavailable Unavailable Feola, T Mary PA Unavailable Unavailable Feola, T Mary PA Unavailable Unavailable Feola, T Mary PA Unavailable Unavailable Feola, T Mary PA Unavailable Unavailable Feola, T Mary PA Unavailable Unavailable Feola, T Mary PA Unavailable Unavailable Feola, T Mary PA Unavailable Unavailable Feola, T Mary PA Unavailable Unavailable Feola, T Mary PA Unavailable Unavailable Feola, T Mary PA Unavailable Unavailable Feola, T Mary PA Unavailable Unavailable Feola, T Mary PA Unavailable Unavailable Feola, T Mary PA Unavailable Unavailable Feola, T Mary PA Unavailable Unavailable Feola, T Mary PA Unavailable Unavailable Feola, T Mary PA Unavailable Unavailable Feola, T Mary PA Unavailable Unavailable Feola, T Mary PA Unavailable Unavailable Feola, T Mary PA Unavailable Unavailable Feola, T Mary PA Unavailable Unavailable Feola, T Mary PA Unavailable Unavailable Feola, T Mary PA Unavailable Unavailable Feola, T Mary PA Unavailable Unavailable Feola, T Mary PA Unavailable Unavailable Feola, T Mary PA Unavailable Unavailable Feola, T Mary PA Unavailable Unavailable Feola, T Mary PA Unavailable Unavailable Feola, T Mary PA Unavailable Unavailable Feola, T Mary PA Unavailable Unavailable Feola, T Mary PA Unavailable Unavailable MANUEL, MAQBOOL BOLIVAR MD Unavailable Unavailable MANUEL, MAQBOOL BOLIVAR MD Unavailable Unavailable MANUEL, MAQBOOL BOLIVAR MD Unavailable Unavailable MANUEL, MAQBOOL BOLIVAR MD Unavailable Unavailable MANUEL, MAQBOOL BOLIVAR MD Unavailable Unavailable MANUEL, MAQBOOL BOLIVAR MD Unavailable Unavailable MANUEL, MAQBOOL BOLIVAR MD Unavailable Unavailable MANUEL, MAQBOOL BOLIVAR MD Unavailable Unavailable MANUEL, MAQBOOL BOLIVAR MD Unavailable Unavailable MANUEL, MAQBOOL BOLIVAR MD Unavailable Unavailable MANUEL, MAQBOOL BOLIVAR MD Unavailable Unavailable MANUEL, MAQBOOL BOLIVAR MD Unavailable Unavailable MANUEL, MAQBOOL BOLIVAR MD Unavailable Unavailable MANUEL, MAQBOOL BOLIVAR MD Unavailable Unavailable MANUEL, MAQBOOL BOLIVAR MD Unavailable Unavailable MANUEL, MAQBOOL BOLIVAR MD Unavailable Unavailable MANUEL, MAQBOOL BOLIVAR MD Unavailable Unavailable MANUEL, MAQBOOL BOLIVAR MD Unavailable Unavailable MANUEL, MAQBOOL BOLIVAR MD Unavailable Unavailable MANUEL, MAQBOOL BOLIVAR MD Unavailable Unavailable MANUEL, MAQBOOL BOLIVAR MD Unavailable Unavailable MANUEL, MAQBOOL BOLIVAR MD Unavailable Unavailable MANUEL, MAQBOOL BOLIVAR MD Unavailable Unavailable MANUEL, MAQBOOL BOLIVAR MD Unavailable Unavailable MANUEL, MAQBOOL BOLIVAR MD Unavailable Unavailable MANUEL, MAQBOOL BOLIVAR MD Unavailable Unavailable MANUEL, MAQBOOL BOLIVAR MD Unavailable Unavailable MANUEL, MAQBOOL BOLIVAR MD Unavailable Unavailable MANUEL, MAQBOOL BOLIVAR MD Unavailable Unavailable MANUEL, MAQBOOL BOLIVAR MD Unavailable Unavailable MANUEL, MAQBOOL BOLIVAR MD Unavailable Unavailable MANUEL, MAQBOOL BOLIVAR MD Unavailable Unavailable MANUEL, MAQBOOL BOLIVAR MD Unavailable Unavailable MANUEL, MAQBOOL BOLIVAR MD Unavailable Unavailable MANUEL, MAQBOOL BOLIVAR MD Unavailable Unavailable MANUEL, MAQBOOL BOLIVAR MD Unavailable Unavailable MANUEL, MAQBOOL BOLIVAR MD Unavailable Unavailable MANUEL, MAQBOOL BOLIVAR MD Unavailable Unavailable MANUEL, MAQBOOL BOLIVAR MD Unavailable Unavailable MANUEL, MAQBOOL BOLIVAR MD Unavailable Unavailable MANUEL, MAQBOOL BOLIVAR MD Unavailable Unavailable MANUEL, MAQBOOL BOLIVAR MD Unavailable Unavailable MANUEL, MAQBOOL BOLIVAR MD Unavailable Unavailable MANUEL, MAQBOOL BOLIVAR MD Unavailable Unavailable MANUEL, MAQBOOL BOLIVAR MD Unavailable Unavailable MANUEL, MAQBOOL BOLIVAR MD Unavailable Unavailable MANUEL, MAQBOOL BOLIVAR MD Unavailable Unavailable MANUEL, MAQBOOL BOLIVAR MD Unavailable Unavailable MANUEL, MAQBOOL BOLIVAR MD Unavailable Unavailable MANUEL, MAQBOOL BOLIVAR MD Unavailable Unavailable MANUEL, MAQBOOL BOLIVAR MD Unavailable Unavailable MANUEL, MAQBOOL BOLIVAR MD Unavailable Unavailable MANUEL, MAQBOOL BOLIVAR MD Unavailable Unavailable MANUEL, MAQBOOL BOLIVAR MD Unavailable Unavailable MANUEL, MAQBOOL BOLIVAR MD Unavailable Unavailable MANUEL, MAQBOOL BOLIVAR MD Unavailable Unavailable MANUEL, MAQBOOL BOLIVAR MD Unavailable Unavailable MANUEL, MAQBOOL BOLIVAR MD Unavailable Unavailable MANUEL, MAQBOOL BOLIVAR MD Unavailable Unavailable MANUEL, MAQBOOL BOLIVAR MD Unavailable Unavailable MANUEL, MAQBOOL BOLIVAR MD Unavailable Unavailable MANUEL, MAQBOOL BOLIVAR MD Unavailable Unavailable MANUEL, MAQBOOL BOLIVAR MD Unavailable Unavailable MANUEL, MAQBOOL BOLIVAR MD Unavailable Unavailable MANUEL, MAQBOOL BOLIVAR MD Unavailable Unavailable MANUEL, MAQBOOL BOLIVAR MD Unavailable Unavailable MANUEL, MAQBOOL BOLIVAR MD Unavailable Unavailable MANUEL, MAQBOOL BOLIVAR MD Unavailable Unavailable MANUEL, MAQBOOL BOLIVAR MD Unavailable Unavailable MANUEL, MAQBOOL BOLIVAR MD Unavailable Unavailable MANUEL, MAQBOOL BOLIVAR MD Unavailable Unavailable MANUEL, MAQBOOL BOLIVAR MD Unavailable Unavailable AMNUEL, MAQBOOL BOLIVAR MD Unavailable Unavailable MANUEL, MAQBOOL BOLIVAR MD Unavailable Unavailable MANUEL, MAQBOOL BOLIVAR MD Unavailable Unavailable MANUEL, MAQBOOL BOLIVAR MD Unavailable Unavailable MANUEL, MAQBOOL BOLIVAR MD Unavailable Unavailable MANUEL, MAQBOOL BOLIVAR MD Unavailable Unavailable Sandy Zamora INFANTRY INDIRECT FIRE CREWMEMBER Unavailable Unavailable TURRIN, SIRIA Unavailable Unavailable TURRIN, SIRIA Unavailable Unavailable TURRIN, SIRIA Unavailable Unavailable TURRIN, SIRIA Unavailable Unavailable Tiffanie Grigsby MD Unavailable Unavailable Tiffanie Grigsby MD Unavailable Unavailable Tiffanie Grigsby MD Unavailable Unavailable Tiffanie Grigsby MD Unavailable Unavailable Tiffanie Grigbsy MD Unavailable Unavailable Tiffanie Grigsby MD Unavailable Unavailable Tiffanie Grigsby MD Unavailable Unavailable Tiffanie Grigsby MD Unavailable Unavailable Tiffanie Grigsby MD Unavailable Unavailable Tiffanie Grigsby MD Unavailable Unavailable Tiffanie Grigsby MD Unavailable Unavailable Tiffanie Grigsby MD Unavailable Unavailable Tiffanie Grigsby Bandarhaider BANG Unavailable Unavailable Tiffanie Grigsby MD Unavailable Unavailable Tiffanie Grigsby MD Unavailable Unavailable Tiffanie Grigsby MD Unavailable Unavailable Tiffanie Grigsby MD Unavailable Unavailable Tiffanie Grigsby MD Unavailable Unavailable Tiffanie Grigsby MD Unavailable Unavailable Tiffanie Grigsby MD Unavailable Unavailable Tiffanie Grigsby MD Unavailable Unavailable Tiffanie Grigsby MD Unavailable Unavailable Tiffanie Grigsby Bandarhaider BANG Unavailable Unavailable Calista, N Bandar MD Unavailable Unavailable Calista, N Bandar MD Unavailable Unavailable Calista, N Bandar MD Unavailable Unavailable Calista, N Bandar MD Unavailable Unavailable Calista, N Bandar MD Unavailable Unavailable Calista, N Bandar MD Unavailable Unavailable Calista, N Bandar MD Unavailable Unavailable Calista, N Bandar MD Unavailable Unavailable Calista, N Bandar MD Unavailable Unavailable Calista, N Bandar MD Unavailable Unavailable Calista, N Bandar MD Unavailable Unavailable Calista, N Bandar MD Unavailable Unavailable Calista, N Bandar MD Unavailable Unavailable Calista, N Bandar MD Unavailable Unavailable Calista, N Bandar MD Unavailable Unavailable Calista, N Bandar MD Unavailable Unavailable Calista, N Bandar MD Unavailable Unavailable Calista, N Bandar MD Unavailable Unavailable Calista, N Bandar MD Unavailable Unavailable Calista, N Bandar MD Unavailable Unavailable Calista, N Bandar MD Unavailable Unavailable Calista, N Bandar MD Unavailable Unavailable Calista, N Bandar MD Unavailable Unavailable Calista, N Bandar MD Unavailable Unavailable Calista, N Bandar MD Unavailable Unavailable Calista, N Bandar MD Unavailable Unavailable Calista, N Bandar MD Unavailable Unavailable Calista, N Bandar MD Unavailable Unavailable Calista, N Bandar MD Unavailable Unavailable Calista, N Bandar MD Unavailable Unavailable Calista, N Bandar MD Unavailable Unavailable Calista, N Bandar MD Unavailable Unavailable Calista, N Bandar MD Unavailable Unavailable Calista, N Bandar MD Unavailable Unavailable Calista, N Bandar MD Unavailable Unavailable Calista, N Bandar MD Unavailable Unavailable Calista, N Bandar MD Unavailable Unavailable Calista, N Bandar MD Unavailable Unavailable Calista, N Bandar MD Unavailable Unavailable Calista, N Bandar MD Unavailable Unavailable Calista, N Bandar MD Unavailable Unavailable Calista, N Bandar MD Unavailable Unavailable Calista, N Bandar MD Unavailable Unavailable Calista, N Bandar MD Unavailable Unavailable Calista, N Bandar MD Unavailable Unavailable Calista, N Bandar MD Unavailable Unavailable Calista, N Bandar MD Unavailable Unavailable Calista, N Bandar MD Unavailable Unavailable Calista, N Bandar MD Unavailable Unavailable Calista, N Bandar MD Unavailable Unavailable Calista, N Badnar MD Unavailable Unavailable Calista, N Bandar MD Unavailable Unavailable Calista, N Bandar MD Unavailable Unavailable Calista, N Bandar MD Unavailable Unavailable Calista, N Bandar MD Unavailable Unavailable Calista, N Bandar MD Unavailable Unavailable Calista, N Bandar MD Unavailable Unavailable Tiffanie Grigsby MD Unavailable Unavailable Tiffanie Grigsby MD Unavailable Unavailable Tiffanie Grigsby MD Unavailable Unavailable Tiffanie Grigsby MD Unavailable Unavailable Randy Lopez MD Unavailable Unavailable Randy Lopez MD Unavailable Unavailable Randy Lopez MD Unavailable Unavailable Randy Lopez MD Unavailable Unavailable Randy Lopze MD Unavailable Unavailable Randy Lopez MD Unavailable Unavailable Randy Lopez MD Unavailable Unavailable Randy Lopez MD Unavailable Unavailable Randy Lopez MD Unavailable Unavailable Randy Lopez MD Unavailable Unavailable Randy Lopez MD Unavailable Unavailable Randy Lopez MD Unavailable Unavailable Randy Lopez MD Unavailable Unavailable Randy Lopez MD Unavailable Unavailable Randy Lopez MD Unavailable Unavailable Randy Lopez MD Unavailable Unavailable Randy Lopez MD Unavailable Unavailable Randy Lopez MD Unavailable Unavailable Randy Lopez MD Unavailable Unavailable Randy Lopez MD Unavailable Unavailable Randy Lopez MD Unavailable Unavailable Randy Lopez MD Unavailable Unavailable Randy Lopez MD Unavailable Unavailable Randy Lopez MD Unavailable Unavailable Randy Lopez MD Unavailable Unavailable Randy Lopez MD Unavailable Unavailable Randy Lopez MD Unavailable Unavailable Randy Lopez MD Unavailable Unavailable Randy Lopez MD Unavailable Unavailable Randy Lopez MD Unavailable Unavailable Randy Lopez MD Unavailable Unavailable Randy Lopez MD Unavailable Unavailable Randy Loepz MD Unavailable Unavailable Randy Lopez MD Unavailable Unavailable Randy Lopez MD Unavailable Unavailable Randy Lopez MD Unavailable Unavailable Randy Lopez MD Unavailable Unavailable Randy Lopez MD Unavailable Unavailable Randy Lopez MD Unavailable Unavailable Randy Lopez MD Unavailable Unavailable Randy Lopez MD Unavailable Unavailable Randy Lopez MD Unavailable Unavailable Randy Lopez MD Unavailable Unavailable Randy Lopez MD Unavailable Unavailable Randy Lopez MD Unavailable Unavailable Randy Lopez MD Unavailable Unavailable Randy Lopez MD Unavailable Unavailable Randy Lopez MD Unavailable Unavailable Randy Lopez MD Unavailable Unavailable Randy Lopez MD Unavailable Unavailable Randy Lopez MD Unavailable Unavailable Randy Lopez MD Unavailable Unavailable Randy Lopez MD Unavailable Unavailable Randy Lopez MD Unavailable Unavailable Randy Lopez MD Unavailable Unavailable Randy Lopez MD Unavailable Unavailable Randy Lopez MD Unavailable Unavailable Randy Lopez MD Unavailable Unavailable Randy Lopez MD Unavailable Unavailable Randy Lopez MD Unavailable Unavailable Randy Lopez MD Unavailable Unavailable Randy Lopez MD Unavailable Unavailable Randy Lopez MD Unavailable Unavailable Randy Lopez MD Unavailable Unavailable Randy Lopez MD Unavailable Unavailable Randy Lopez MD Unavailable Unavailable Randy Lopez MD Unavailable Unavailable Randy Lopez MD Unavailable Unavailable Randy Lopez MD Unavailable Unavailable Randy Lopez MD Unavailable Unavailable Randy Lopez MD Unavailable Unavailable Randy Lopez MD Unavailable Unavailable Randy Lopez MD Unavailable Unavailable Randy Lopez MD Unavailable Unavailable Randy Lopez MD Unavailable Unavailable Fish, J Akash Unavailable Unavailable Fish, J Akash Unavailable Unavailable Fish, J Akash Unavailable Unavailable Fish, J Akash Unavailable Unavailable Fish, J Akash Unavailable Unavailable Fish, J Akash Unavailable Unavailable Fish, J Akash Unavailable Unavailable Fish, J Akash Unavailable Unavailable Fish, J Akash Unavailable Unavailable Fish, J Akash Unavailable Unavailable Fish, J Akash Unavailable Unavailable Fish, J Akash Unavailable Unavailable Fish, J Akash Unavailable Unavailable Fish, J Akash Unavailable Unavailable Fish, J Akash Unavailable Unavailable Fish, J Akash Unavailable Unavailable Fish, J Akash Unavailable Unavailable Fish, J Akash Unavailable Unavailable Fish, J Akash Unavailable Unavailable Fish, J Akash Unavailable Unavailable Fish, J Akash Unavailable Unavailable Fish, J Akash Unavailable Unavailable Fish, J Akash Unavailable Unavailable Fish, J Akash Unavailable Unavailable Fish, J Akash Unavailable Unavailable Fish, J Akash Unavailable Unavailable Fish, J Akash Unavailable Unavailable Fish, J Akash Unavailable Unavailable Fish, J Akash Unavailable Unavailable Fish, J Akash Unavailable Unavailable Fish, J Akash Unavailable Unavailable Fish, J Akash Unavailable Unavailable Fish, J Akash Unavailable Unavailable Fish, J Akash Unavailable Unavailable Fish, J Akash Unavailable Unavailable Fish, J Akash Unavailable Unavailable Fish, J Akash Unavailable Unavailable Fish, J Akash Unavailable Unavailable Fish, J Akash Unavailable Unavailable Fish, J Akash Unavailable Unavailable Fish, J Akash Unavailable Unavailable Fish, J Akash Unavailable Unavailable Fish, J Akash Unavailable Unavailable Fish, J Akash Unavailable Unavailable Fish, J Akash Unavailable Unavailable Fish, J Akash Unavailable Unavailable Fish, J Akash Unavailable Unavailable Fish, J Akash Unavailable Unavailable Fish, J Akash Unavailable Unavailable Fish, J Akash Unavailable Unavailable Fish, J Akash Unavailable Unavailable Fish, J Akash Unavailable Unavailable Fish, J Akash Unavailable Unavailable Fish, J Akash Unavailable Unavailable Fish, J Akash Unavailable Unavailable Fish, J Akash Unavailable Unavailable Fish, J Akash Unavailable Unavailable Fish, J Akash Unavailable Unavailable Fish, J Akash Unavailable Unavailable Fish, J Akash Unavailable Unavailable Fish, J Akash Unavailable Unavailable Fish, J Akash Unavailable Unavailable Fish, J Akash Unavailable Unavailable Fish, J Akash Unavailable Unavailable Fish, J Akash Unavailable Unavailable Fish, J Akash Unavailable Unavailable Fish, J Akash Unavailable Unavailable Fish, J Akash Unavailable Unavailable Fish, J Akash Unavailable Unavailable Fish, J Akash Unavailable Unavailable Fish, J Akash Unavailable Unavailable Fish, J Akash Unavailable Unavailable Fish, J Akash Unavailable Unavailable Fish, J Akash Unavailable Unavailable Fish, J Akash Unavailable Unavailable Fish, J Akahs Unavailable Unavailable Fish, J Akash Unavailable Unavailable Fish, J Akash Unavailable Unavailable Fish, J Akash Unavailable Unavailable Fish, J Akash Unavailable Unavailable Fish, J Akash Unavailable Unavailable Fish, J Akash Unavailable Unavailable Fish, J Akash Unavailable Unavailable Fish, J Akash Unavailable Unavailable Randy Lopez MD Unavailable Unavailable Randy Lopez MD Unavailable Unavailable Randy Lopez MD Unavailable Unavailable Randy Lopez MD Unavailable Unavailable Randy Lopez MD Unavailable Unavailable Randy Lopez MD Unavailable Unavailable Randy Lopez MD Unavailable Unavailable Randy Lopez MD Unavailable Unavailable Randy Lopez MD Unavailable Unavailable Randy Lopez MD Unavailable Unavailable Randy Lopez MD Unavailable Unavailable Randy Lopez MD Unavailable Unavailable Randy Lopez MD Unavailable Unavailable Randy Lopez MD Unavailable Unavailable Randy Lopez MD Unavailable Unavailable Randy Lopez MD Unavailable Unavailable Randy Lopez MD Unavailable Unavailable Randy Lopez MD Unavailable Unavailable Randy Lopez MD Unavailable Unavailable Randy Lopez MD Unavailable Unavailable Randy Lopez MD Unavailable Unavailable Randy Lopez MD Unavailable Unavailable Randy Lopez MD Unavailable Unavailable Randy Lopez MD Unavailable Unavailable Randy Lopez MD Unavailable Unavailable Randy Lopez MD Unavailable Unavailable Randy Lopez MD Unavailable Unavailable Randy Lopez MD Unavailable Unavailable Randy Lopez MD Unavailable Unavailable Randy Lopez MD Unavailable Unavailable Randy Lopez MD Unavailable Unavailable Randy Lopez MD Unavailable Unavailable Randy Lopez MD Unavailable Unavailable Randy Lopez MD Unavailable Unavailable Randy Lopez MD Unavailable Unavailable Randy Lopez MD Unavailable Unavailable Randy Lopez MD Unavailable Unavailable Randy Lopez MD Unavailable Unavailable Randy Lopez MD Unavailable Unavailable Randy Lopez MD Unavailable Unavailable Randy Lopez MD Unavailable Unavailable Randy Lopez MD Unavailable Unavailable Randy Lopez MD Unavailable Unavailable Randy Lopez MD Unavailable Unavailable Randy Lopez MD Unavailable Unavailable Randy Lopez MD Unavailable Unavailable Randy Lopez MD Unavailable Unavailable Randy Lopez MD Unavailable Unavailable Randy Lopez MD Unavailable Unavailable Randy Lopez MD Unavailable Unavailable Randy Lopez MD Unavailable Unavailable Randy Lopez MD Unavailable Unavailable Randy Lopez MD Unavailable Unavailable Randy Lopez MD Unavailable Unavailable Randy Lopez MD Unavailable Unavailable Randy Lopez MD Unavailable Unavailable Randy Lopez MD Unavailable Unavailable Randy Lopez MD Unavailable Unavailable Randy Lopez MD Unavailable Unavailable Randy Lopez MD Unavailable Unavailable aRndy Lopez MD Unavailable Unavailable Randy Lopez MD Unavailable Unavailable Randy Lopez MD Unavailable Unavailable Randy Lopez MD Unavailable Unavailable Randy Lopez MD Unavailable Unavailable Randy Lopez MD Unavailable Unavailable Randy Lopez MD Unavailable Unavailable Randy Lopez MD Unavailable Unavailable Randy Lopez MD Unavailable Unavailable Randy Lopez MD Unavailable Unavailable Randy Lopez MD Unavailable Unavailable Randy Lopez MD Unavailable Unavailable Randy Lopez MD Unavailable Unavailable Randy Lopez MD Unavailable Unavailable Randy Lopez MD Unavailable Unavailable Fish, J Akash Unavailable Unavailable Fish, J Akash Unavailable Unavailable Fish, J Akash Unavailable Unavailable Fish, J Akash Unavailable Unavailable Fish, J Akash Unavailable Unavailable Fish, J Akash Unavailable Unavailable Fish, J Akash Unavailable Unavailable Fish, J Akash Unavailable Unavailable Fish, J Akash Unavailable Unavailable Fish, J Akash Unavailable Unavailable Fish, J Akash Unavailable Unavailable Fish, J Akash Unavailable Unavailable Fish, J Akash Unavailable Unavailable Fish, J Akash Unavailable Unavailable Fish, J Akash Unavailable Unavailable Fish, J Akash Unavailable Unavailable Fish, J Akash Unavailable Unavailable Fish, J Akash Unavailable Unavailable Fish, J Akash Unavailable Unavailable Fish, J Akash Unavailable Unavailable Fish, J Akash Unavailable Unavailable Fish, J Akash Unavailable Unavailable Fish, J Akash Unavailable Unavailable Fish, J Akash Unavailable Unavailable Fish, J Akash Unavailable Unavailable Fish, J Akash Unavailable Unavailable Fish, J Akash Unavailable Unavailable Fish, J Akash Unavailable Unavailable Fish, J Akash Unavailable Unavailable Fish, J Akash Unavailable Unavailable Fish, J Akash Unavailable Unavailable Fish, J Akash Unavailable Unavailable Fish, J Akash Unavailable Unavailable Fish, J Akash Unavailable Unavailable Fish, J Akash Unavailable Unavailable Fish, J Akash Unavailable Unavailable Fish, J Akash Unavailable Unavailable Fish, J Akash Unavailable Unavailable Fish, J Akash Unavailable Unavailable Fish, J Akash Unavailable Unavailable Fish, J Akash Unavailable Unavailable Fish, J Akash Unavailable Unavailable Fish, J Akash Unavailable Unavailable Fish, J Akash Unavailable Unavailable Fish, J Akash Unavailable Unavailable Fish, J Akash Unavailable Unavailable Fish, J Akash Unavailable Unavailable Fish, J Akash Unavailable Unavailable Fish, J Akash Unavailable Unavailable Fish, J Akash Unavailable Unavailable Fish, J Akash Unavailable Unavailable Fish, J Akash Unavailable Unavailable Fish, J Akash Unavailable Unavailable Fish, J Akash Unavailable Unavailable Fish, J Akash Unavailable Unavailable Fish, J Akash Unavailable Unavailable Fish, J Akash Unavailable Unavailable Fish, J Akash Unavailable Unavailable Fish, J Akash Unavailable Unavailable Fish, J Akash Unavailable Unavailable Fish, J Akash Unavailable Unavailable Fish, J Akash Unavailable Unavailable Fish, J Akash Unavailable Unavailable Fish, J Akash Unavailable Unavailable Fish, J Akash Unavailable Unavailable Fish, J Akash Unavailable Unavailable Fish, J Akash Unavailable Unavailable Fish, J Akash Unavailable Unavailable Fish, J Akash Unavailable Unavailable Fish, J Akash Unavailable Unavailable Fish, J Akash Unavailable Unavailable Fish, J Akash Unavailable Unavailable Fish, J Akash Unavailable Unavailable Fish, J Akash Unavailable Unavailable Fish, J Akash Unavailable Unavailable Fish, J Akash Unavailable Unavailable Fish, J Akash Unavailable Unavailable Fish, J Akash Unavailable Unavailable Fish, J Akash Unavailable Unavailable Fish, J Akash Unavailable Unavailable Fish, J Akash Unavailable Unavailable Fish, J Akash Unavailable Unavailable Fish, J Akash Unavailable Unavailable Fish, J Akash Unavailable Unavailable Charlie EVANS MD Unavailable Unavailable Charlie EVANS MD Unavailable Unavailable Charlie EVANS MD Unavailable Unavailable Charlie EVANS MD Unavailable Unavailable Charlie EVANS MD Unavailable Unavailable Charlie EVANS MD Unavailable Unavailable Charlie EVANS MD Unavailable Unavailable ERICKCharlie VELARDE MD Unavailable Unavailable Charlie EVANS MD Unavailable Unavailable Charlie EVANS MD Unavailable Unavailable ERICKCharlie VELARDE MD Unavailable Unavailable ERICKCharlie VELARDE MD Unavailable Unavailable ERICKCharlie VELARDE MD Unavailable Unavailable ERICKCharlie VELARDE MD Unavailable Unavailable Charlie EVANS MD Unavailable Unavailable Charlie EVANS MD Unavailable Unavailable ERICKCharlie VELARDE MD Unavailable Unavailable ERICK, S BENJAMIN BANG Unavailable Unavailable ERICK, S BENJAMIN BANG Unavailable Unavailable ERICK, S BENJAMIN BANG Unavailable Unavailable ERICKCharlie VELARDE MD Unavailable Unavailable ERICKCharlie VELARDE MD Unavailable Unavailable ERICKCharlie VELARDE MD Unavailable Unavailable ERICK, S BENJAMIN BANG Unavailable Unavailable ERICKCharlie VELARDE MD Unavailable Unavailable ERICK, S BENJAMIN BANG Unavailable Unavailable ERICKCharlie VELARDE MD Unavailable Unavailable ERICK, S BENJAMIN BANG Unavailable Unavailable ERICK, S AYMAN MD Unavailable Unavailable ERICK, S AYMAN MD Unavailable Unavailable ERICK, S AYMAN MD Unavailable Unavailable ERICK, S AYMAN MD Unavailable Unavailable ERICK, S AYMAN MD Unavailable Unavailable ERICK, S AYMAN MD Unavailable Unavailable ERICK, S AYMAN MD Unavailable Unavailable ERICK, S AYMAN MD Unavailable Unavailable ERICK, S AYMAN MD Unavailable Unavailable ERICK, S AYMAN MD Unavailable Unavailable ERICK, S AYMAN MD Unavailable Unavailable ERICK, S AYMAN MD Unavailable Unavailable ERICK, S AYMAN MD Unavailable Unavailable ERICK, S AYMAN MD Unavailable Unavailable ERICK, S AYMAN MD Unavailable Unavailable ERICK, S AYMAN MD Unavailable Unavailable ERIKC, S AYMAN MD Unavailable Unavailable ERICK, S AYMAN MD Unavailable Unavailable ERICK, S AYMAN MD Unavailable Unavailable ERICK, S AYMAN MD Unavailable Unavailable ERICK, S AYMAN MD Unavailable Unavailable ERICK, S AYMAN MD Unavailable Unavailable ERICK, S AYMAN MD Unavailable Unavailable ERICK, S AYMAN MD Unavailable Unavailable ERICK, S AYMAN MD Unavailable Unavailable ERICK, S AYMAN MD Unavailable Unavailable ERICK, S AYMAN MD Unavailable Unavailable ERICK, S AYMAN MD Unavailable Unavailable ERICK, S AYMAN MD Unavailable Unavailable ERICK, S AYMAN MD Unavailable Unavailable ERICK, S AYMAN MD Unavailable Unavailable ERICK, S AYMAN MD Unavailable Unavailable ERICK, S AYMAN MD Unavailable Unavailable ERICK, S AYMAN MD Unavailable Unavailable ERICK, S AYMAN MD Unavailable Unavailable ERICK, S AYMAN MD Unavailable Unavailable ERICK, S AYMAN MD Unavailable Unavailable ERICK, S AYMAN MD Unavailable Unavailable ERICK, S AYMAN MD Unavailable Unavailable ERICK, S AYMAN MD Unavailable Unavailable ERICK, S AYMAN MD Unavailable Unavailable ERICK, S AYMAN MD Unavailable Unavailable ERICK, S AYMAN MD Unavailable Unavailable ERICK, S AYMAN MD Unavailable Unavailable ERICK, S AYMAN MD Unavailable Unavailable ERICK, S AYMAN MD Unavailable Unavailable ERICK, S AYMAN MD Unavailable Unavailable ERICK, S AYMAN MD Unavailable Unavailable ERICK, S AYMAN MD Unavailable Unavailable ERICK, S AYMAN MD Unavailable Unavailable ERICK, S AYMAN MD Unavailable Unavailable ERICK, S AYMAN MD Unavailable Unavailable ERICK, S AYMAN MD Unavailable Unavailable ERICK, S AYMAN MD Unavailable Unavailable ERICK, S AYMAN MD Unavailable Unavailable ERICK, S AYMAN MD Unavailable Unavailable ERICK, S AYMAN MD Unavailable Unavailable ERICK, S AYMAN MD Unavailable Unavailable ERICK, S AYMAN MD Unavailable Unavailable CHANLIECCO, C AMARA MD Unavailable Unavailable CHANLIECCO, C AMARA MD Unavailable Unavailable CHANLIECCO, C AMARA MD Unavailable Unavailable CHANLIECCO, C AMARA MD Unavailable Unavailable CHANLIECCO, C AMARA MD Unavailable Unavailable CHANLIECCO, C AMARA MD Unavailable Unavailable CHANLIECCO, C AMARA MD Unavailable Unavailable CHANLIECCO, C AMARA MD Unavailable Unavailable CHANLIECCO, C AMARA MD Unavailable Unavailable CHANLIECCO, C AMARA MD Unavailable Unavailable CHANLIECCO, C AMARA MD Unavailable Unavailable Re-disclosure Warning The records that you are about to access may contain information from federally-assisted alcohol or drug abuse programs. If such information is present, then the following federally mandated warning applies: This information has been disclosed to you from records protected by federal confidentiality rules (42 CFR part 2). The federal rules prohibit you from making any further disclosure of this information unless further disclosure is expressly permitted by the written consent of the person to whom it pertains or as otherwise permitted by 42 CFR part 2. A general authorization for the release of medical or other information is NOT sufficient for this purpose. The Federal rules restrict any use of the information to criminally investigate or prosecute any alcohol or drug abuse patient.The records that you are about to access may contain highly sensitive health information, the redisclosure of which is protected by Article 27-F of the [place] [facility] Public [employer] law. If you continue you may have access to information: Regarding HIV / AIDS; Provided by facilities licensed or operated by the [facility] Office of Mental Health; or Provided by the [facility] Office for People With Developmental Disabilities. If such information is present, then the following [facility] mandated warning applies: This information has been disclosed to you from confidential records which are protected by state law. State law prohibits you from making any further disclosure of this information without the specific written consent of the person to whom it pertains, or as otherwise permitted by law. Any unauthorized further disclosure in violation of state law may result in a fine or usp sentence or both. A general authorization for the release of medical or other information is NOT sufficient authorization for further disc losure. Allergies and Adverse Reactions Type Description Substance Reaction Status Data Source(s ) Propensity to adverse reactions ALOE VERA ALOE VERA [facility] Propensity to adverse reactions PENICILLINS (CLASS) PENICILLINS (CLAS S) [facility] Family History Family Member Name Family Member Gender Family Member Status Date o f Status Description Data Source(s) Unknown Male Problem MEDENT ([facility]) () Unknown Male Problem [facility] ([facility] () Encounters Encounter Providers Location Date Indications Data Source(s ) ([id number]) For Template [place] [address] [place] [address] 02/10/2021 12:00:00 AM EDT eCW1 ([facility]) Unknown [address] [facility] [address] 02/02/2021 12:00:00 AM EDT eCW1 ([facility]) (WND NP120) New Patient [address] [place] [address] 02/01/2021 12:00:00 AM EDT eCW1 ([facility]) Outpatient Attender: Toyin Lopez MD Main Office 2021 09:30:00 AM EDT [facility] ([facility]) Unknown [address] [facility] [address] 12/24/2020 12:00:00 AM EDT eCW1 ([facility]) Inpatient Attender: Toyin Lopez MDAdmitter: Toyin cisneros MD [id number] 12/17/2020 11:58:00 AM EDT - 12/19/2020 05:09:00 PM EDT [facility] Patient discharged. Outpatient Attender: BOLIVAR SOTOMAYOR MD Medical Building 12/14 01:30:00 PM EDT [facility] (Bolivar Sotomayor MD) Outpatient Attender: Bandar Aldana melia: Toyin SyedConsultant: Akash Cm 12/11/2020 10:41:00 AM EDT - 12/11/2020 11:41:00 AM EDT [facility] Outpatient Attender: JYOTI GARCIA MD [facility]/photographer 02:00:00 PM EDT [facility] ([facility]) Outpatient Attender: Bandar Grigsby MD Main Office 11/23/2020 10:00:00 AM EDT [facility] ([facility]) Outpatient Attender: BOLIVAR SOTOMAYOR MD Medical [facility] 11/19 11:15:00 AM EDT [facility] (Bolivar Sotomayor MD) Outpatient Attender: BOLIVAR SOTOMAYOR MD Medical [facility] 10/20 01:15:00 PM EDT [facility] (Bolivar Sotomayor MD) Outpatient Attender: Bandar Grigsby MD Main Office 10/14/2020 10:15:00 AM EDT [facility] ([facility]) Inpatient Attender: BOLIVAR Temple george: AMARA MACIAS MDConsultant: Akash Cm 10/09/2020 03:14:00 PM EDT - 10/13/2020 01:00:00 PM EDT [facility] Patient discharged. Emergency Attender: AMARA MACIAS MD 10/09/2020 12:19:00 PM EDT - 10/09/2020 03:14:00 PM EDT [facility] Outpatient Attender: Bandar Grigsby MD Main Office 09/23/2020 10:15:00 AM EDT [facility] ([facility]) Outpatient Attender: BOLIVAR SOTOMAYOR MD Medical [facility] 09/10 01:30:00 PM EDT [facility] ([facility]olivar Sotomayor MD) Outpatient Attender: Mary WEST 021 10:08:13 AM EDT - 09/09/2020 10:25:46 AM EDT [facility] ([facility] ) Outpatient Attender: Bandar Grigsby MDConsultant: Akashmarie Cm 09/04/2020 10:36:00 AM EDT - 09/04/2020 11:36:00 AM EDT [facility] [place] Outpatient Attender: Toyin Lopez MDAdmitter: Toyin cisneros MD [id number] 08/27/2020 02:05:28 PM EDT - 09/14/2020 06:15:00 PM EDT [facility] Patient discharged. Outpatient Attender: BOLIVAR SOTOMAYOR MD Medical [facility] 08/06 11:30:00 AM EDT [facility] (Bolivar Sotomayor MD) Outpatient Attender: Bandar Grigsby MD Main Office 08/03/2020 09:30:00 AM EDT [facility] ([facility]) Outpatient Attender: BOLIVAR SOTOMAYOR MD Medical [facility] 07/15 10:30:00 AM EST [facility] (Bolivar Sotomayor MD) Outpatient Attender: BOLIVAR SOTOMAYOR MD Medical [facility] 06/17 09:00:00 AM EST [facility] ([facility]olivar Sotomayor MD) Outpatient Attender: BENJAMIN EVANS MDAdmitter: BENJAMIN GUEVARA MD [id number] 06/12/2020 09:59:00 AM EST - 06/12/2020 04:37:00 PM EST [facility] Patient discharged. Outpatient Attender: Akash CmConsultant: Akash Cm 06/10/2020 11:30:00 AM EST - 06/10/2020 12:30:00 PM EST [facility] [place] Outpatient Attender: Monse Zamora LMSWConsultant: Akash Cm 06/02/2020 09:04:00 AM EST - 06/02/2020 09:04:00 AM EST [facility] Outpatient Attender: BOLIVAR SOTOMAYOR MD Medical [facility] 05/21 01:45:00 PM EST [facility] (Bolivar Sotomayor MD) Outpatient Attender: JOSELIN LEON DIRECTOR SKILLS Referrer: BOLIVAR SOTOMAYOR MDConsultant: Akash Fish 05/19/2020 10:54:00 AM EST - 05/19/2020 11:54:00 AM [facility] Inpatient Attender: AMARA Messina MDAttender: BOLIVAR SOTOMAYOR MDConsultant: Akash Fish 05/09/2020 06:50:00 PM EST - 05/15/2020 07:17:00 PM [facility] Patient discharged. Outpatient Attender: BOLIVAR SOTOMAYOR MD 2019 04:16:00 PM EST - 05/09/2020 06:50:00 PM [facility] Outpatient 03/29/2020 06:05:00 AM [facility] Inpatient Attender: BOLIVAR SOTOMAYOR MDAtt george: SIRIA EAVNSConsultant: Akash Fish 03/25/2020 09:00:00 AM [facility] - 03/30/2020 01:38:00 PM [facility] Patient discharged. Outpatient Attender: BOLIVAR SOTOMAYOR MD 2019 02:25:00 PM EST - 03/25/2020 09:00:00 AM [facility] Outpatient Attender: Sol WEST [facility] office - [facility] 03/09/2020 09:00:00 AM EST [facility] ([facility], ) Outpatient Attender: Akash Cm [place] Office 02/04/2020 10:30:0 0 AM EDT [facility] ([facility] Outpatient Attender: BOLIVAR SOTOMAYOR MD [facility] 01/27 02:30:00 PM EDT [facility] (Bolivar Sotomayor MD) Outpatient Attender: Sol Vera PAConsultant: Akash Fis h 12/11/2019 12:47:10 PM EDT - 12/12/2019 09:31:00 AM EDT [facility] Patient discharged. Immunizations Vaccine Date Status Description Data Source(s) COVID-19 VACCINE Moderna 07/28/2020 12:00:00 AM EDT completed [facility] Vaccine Series Complete: YESThis Data wa s Submitted to [facility] Via [email or web address]. COVID-19 VACCINE Moderna 07/03/2020 12:00:00 AM EST completed [facility] Vaccine Series Complete: NOThis Data was Submitted to [facility] Via [employer] in 2013. IIV4 02/04/2020 11:18:00 AM EDT completed [facility] ([facility] Medications Medication Brand Name Start Date Product Form Dose Route Admi nistrative Instructions Pharmacy Instructions Status Indications Reaction Description Data Source(s) doxycycline hyclate 100 MG Oral Capsule DOXYCYCLINE HYCLATE 2021 12:00:00 AM EDT capsule 20 TAKE ONE CAPSULE BY MOUTH TW ICE A DAY FOR 10 DAYS TAKE ONE CAPSULE BY MOUTH TWICE A DAY FOR 10 DAYS SOLD: 01/24/2021 [facility] doxycycline hyclate 100 MG Oral Capsule Doxycycline Hyclate 2021 12:00:00 AM EDT active [facility] ([facility]) Calcitriol 0.80806 MG Oral Capsule 0.25 mcg CALCITRIOL 01/13/2021 12:00:00 AM EDT capsule 90 TAKE ONE CAPSULE BY MOUTH EV ART DAY TAKE ONE CAPSULE BY MOUTH EVERY DAY SOLD: 01/14/2021 [facility] Potassium Chloride 10 MEQ Extended Release Oral Tablet POTAS SIUM CHLORIDE 01/13/2021 12:00:00 AM EDT tablet extended release 60 TAKE ONE TABLET BY MOUTH TWICE A DAY TAKE ONE TABLET BY MOUTH TWICE A DAY SOLD: 01/14/2021 [facility] 75 mg 01/13/2021 12:00:00 AM EDT tablet 90 TAKE ONE TABLET BY MOUTH EVERY DAY TAKE ONE TABLET BY MOUTH EVERY DAY SOLD: 01/14/2021 [facility] Bumetanide 1 MG Oral Tablet BUMETANIDE 01/13/2021 12:00:00 AM EDT tabl et 180 TAKE ONE TABLET BY MOUTH TWICE A DAY TAKE ONE TABLET BY MOUTH TWICE A DAY SOLD: 01/14/2021 [facility] 80 mg 01/13/2021 12:00:00 AM EDT tablet 90 TAKE ONE TABLET BY MOUTH EVERY DAY AT BEDTIME TAKE ONE TABLET BY MOUTH EVERY DAY AT BEDTIME SOLD: 01/14/2021 [facility] carvedilol 6.25 MG Oral Tablet CARVEDILOL 01/13/2021 12:00:00 AM EDT tablet 180 TAKE ONE TABLET BY MOUTH TWICE A DAY TAKE ONE TABLET BY MOUT H TWICE A DAY SOLD: 01/14/2021 [facility] 100 mcg 01/11/2021 12:00:00 AM EDT tablet 90 TAKE ONE TABLET BY MOUTH EVERY DAY TAKE ONE TABLET BY MOUTH EVERY DAY SOLD: 01/14/2021 [facility] 100 mg 01/09/2021 12:00:00 AM EDT tablet 180 TAKE 1 TABLET BY MOUTH TWICE A DAY TAKE 1 TABLET BY MOUTH TWICE A DAY SOLD: 01/14/2021 [facility] 20 mg 01/09/2021 12:00:00 AM EDT capsule,delayed release (DR/EC) 90 TAKE 1 CAPSULE BY MOUTH EVERY DAY TAKE 1 CAPSULE BY MOUTH EVERY DAY SOLD: 01/14/2021 [facility] 5 mg 12/20/2020 12:00:00 AM EDT tablet 30 TAKE ONE TABLET BY MOUTH EVERY 4 HOURS NEEDED MAXIMUM DAILY DOSE = 6 TABLETS TAKE ONE TABLET BY MOUTH EVERY 4 HOURS NEEDED MAXIMUM DAILY DOSE = 6 TABLETS SOLD: 12/20/2020 [employer] [facility] Insulin Glargine 100 UNT/ML Injectable S olution [Lantus] insulin glargine (LANTUS) injection 8 Units insulin glargine (LANTUS) injection 8 Units 12/19/2020 09:00:00 PM EDT 8 U Subcutaneous active 8 Units, Subcutaneous, Nightly (Lantus), First dose (after last modification) on 12/19/20 at 2100
Basal Insulin (Lantus) Adjustments based on AM Blood Glucose Blood Glucose&nbs p; Adjustment Less than 70 mg/dl Nursing to initiate hypoglycemia protocol 70 to 100 mg/dl &nb sp; Pharmacy to decrease total daily dose by 20% 101 to 200 mg/dl &nb sp; No Change
[facility] Medication administered onsite atorvastatin 80 MG Oral Tablet atorvastatin (LIPITOR) tablet 80 mg atorvastatin (LIPITOR) tablet 80 mg 12/19/2020 09:00:00 AM EDT 80 mg Oral active 80 mg, Oral, Daily, First dose (after last modification) on 12/19/20 at 0900
As per home regimen
[facility] Medication administered onsite Oxycodone Hydrochloride 5 MG Oral Tablet oxyCODONE (ROXICODONE) 5 MG immediate release tablet oxyCODONE (ROXICODONE) 5 MG immediate release tablet 0 12/19/2020 12:00:00 AM EDT 5 mg Oral active Take 1 tablet (5 mg total) by mouth every 4 (four) hours as needed Max Daily Amount: 30 mg [facility] Amoxicillin 875 MG / Clavulanate 125 MG Oral Tablet amoxicillin-clavulanate (AUGMENTIN) 875-125 MG per tablet amoxicillin-clavulanate (AUGMENTIN) 875- 125 MG per tablet 12/19/2020 12:00:00 AM EDT 1 {tbl} Oral activ e Take 1 tablet by mouth 2 (two) times a day for 10 days [facility] Oxycodone Hydrochloride 5 MG Oral Tablet Oxycodone HCL 12/19/2020 12:00:00 AM EDT ORAL active [facility] ([facility]) Amoxicillin 875 MG / Clavulanate 125 MG Oral Tablet Am oxicillin/Clavulanate Potassium 12/19/2020 12:00:00 AM EDT ORAL completed [facility] ([facility]) Amoxicillin 875 MG / Clavulanate 125 MG Oral Tablet 87 5-125 mg AMOXICILLIN/POTASSIUM CLAV 12/19/2020 12:00:00 AM EDT tablet 40 TAKE ONE TABLET BY MOUTH TWICE A DAY FOR 10 DAYS TAKE ONE TABLET BY MOUTH TWICE A DAY FOR 10 DAYS SOLD: 12/20/2020 [facility] Insulin Glargine 100 UNT/ML Injectable S olution [Lantus] insulin glargine (LANTUS) injection 10 Units insulin glargine (LANTUS) injection 10 Units 12/18/2020 09:00:00 PM EDT 10 U Subcutaneous aborted 10 Units, Subcutaneous, Nightly (Lantus), First dose (after last modification) on Mon12/18/20 at 2100
Basal Insulin (Lantus) Adjustments based on AM Blood Glucose Blood Glucose&nbs p; Adjustment Less than 70 mg/dl Nursing to initiate hypoglycemia protocol 70 to 100 mg/dl &nb sp; Pharmacy to decrease total daily dose by 20% 101 to 200 mg/dl &nb sp; No Change
[facility] Medication administered onsite piperacillin-tazobactam (ZOSYN) 3.375 g in sodium chloride (NS) 0.9 % 100 mL IV pigtail 12/18/2020 03:00:00 PM EDT 3.375 g Intravenous active Skin and Soft Tissue Infection 3.375 g, Intravenous, Admini ster over 4 Hours, Every 8 hours (relative), First dose (after last modification) on Mon12/18/20 at 1500
Extended infusion: administer each dose over 4 hours
[facility] Skin and Soft Tissue Infection Medication administered onsite iodixanol (VISIPAQUE) 320 MG/ML injection 200 mL [id number] 12/18/2020 02:25:38 PM EDT 200 mL Intra-arterial completed 200 mL, Intra-arterial, Once in imaging, contrast, Starting on Mon12/18/20 at 1425, For 1 dose [facility] Medication administered onsite 2 ML Midazolam 1 MG/ML Injection midazolam (VERSED) in jection midazolam (VERSED) injection 12/18/2020 02:06:34 PM EDT Intravenous co mpleted Intravenous, Code/trauma/sedation medication, Starting on Mon12/18/20 at 1406 [facility] Medication administered onsite fentaNYL Citrate (PF) (SUBLIMAZE) injection 2848-3433-70 12/18/2020 02:06:28 PM EDT Intravenous completed In travenous, Code/trauma/sedation medication, Starting on Mon12/18/20 at 1406 [facility] Medication administered onsite Insulin Lispro 100 UNT/ML Injectable Analisa ution insulin lispro (HumaLOG) injection 1-8 Units insulin lispro (HumaLOG) injection 1-8 Units 12:00:00 PM EDT U Subcutaneous active 1-8 Units, Subcutaneous, MEALSS, First dose on Mon12/18/20 at 1200
4 units Nutritional and Correction Insulin Scale Blood Glucose (mg/dl) <70 start hypoglycemia protocol Glucose &nbsp ; Eats >=50% Eats <50%& amp;nbsp; Eats Nothing (mg/dl) of meal of meal or NPO &am p;nbsp;70- 120 3 units 1 units 0 units 121-170 & amp;nbsp; 4 units 2 units 0 units 171-220 & nbsp; 5 units 3 units 1 units 221-270 &nbsp ; 5 units 3 units 1 units 271- 320 6 u nits 4 units 2 units 321- 370 7 units 5 units 3 units 371- 420 7 units 5 units 3 units >420 call MD 8 units 6 units 4 units Test glucose within 30 minutes of insulin administration. Administer insulin within 15 minutes (before or after) of the patient starting to eat. For patients that are NPO, use the NPO (correction) scale to cover POC glucose at 08:00, 12:00, 17:00.
[facility] Medication administered onsite dextrose 10 % infusion [id number] 12/18/2020 11:00:00 AM EDT 50 mL/h Intravenous aborted 50 mL/hr, Int ravenous, at 50 mL/hr, Continuous, Starting on Mon12/18/20 at 1100 [facility] Medication administered onsite Acetaminophen 500 MG Oral Tablet acetaminophen (TYLENO L) tablet 1,000 mg acetaminophen (TYLENOL) tablet 1,000 mg 12/18/2020 11:00:00 AM EDT 1000 mg Oral active 1,000 mg, Oral , Every 6 hours PRN, mild pain (1-3), Starting on Mon12/18/20 at 1100
"Maximum dose of acetaminophen is 4,000 mg from all sources in 24 hours."
[facility] Medication administered onsite Levothyroxine Sodium 0.1 MG Oral Tablet levothyroxine (SYNTHROID, LEVOTHROID) tablet 100 mcg levothyroxine (SYNTHROID, LEVOTHROID) tablet 100 mcg 0 12/18/2020 09:00:00 AM EDT 100 ug Oral active 100 mcg, Oral, Daily, First dose on Mon12/18/20 at 0900 [facility] Medication administered onsite clopidogrel 75 MG Oral Tablet clopidogrel (PLAVIX) tab let 75 mg clopidogrel (PLAVIX) tablet 75 mg 12/18/2020 09:00:00 AM EDT 75 mg Oral active 75 mg, Oral, Daily, First dose on Mon12/18/20 at 0900 [facility] Medication administered onsite Aspirin 81 MG Delayed Release Oral Tablet aspirin EC t ablet 81 mg aspirin EC tablet 81 mg 12/18/2020 09:00:00 AM EDT 81 mg Oral activ e 81 mg, Oral, Daily, First dose on Mon12/18/20 at 0900 [facility] Medication administered onsite Docusate Sodium 50 MG / sennosides, PRISON 8.6 MG Oral Tablet senna-docusate (PERICOLACE) 8.6-50 MG 2 tablet senna-docusate (PERICOLACE) 8.6-50 MG 2 tablet 12/17/2020 09:00:00 PM EDT 2 {tbl} Oral active 2 tablet, Oral, Nightly, First dose on Mon12/17/20 at 2100
hold for loose stools
[facility] Medication administered onsite Insulin Glargine 100 UNT/ML Injectable S olution [Lantus] insulin glargine (LANTUS) injection 25 Units insulin glargine (LANTUS) injection 25 Units 12/17/2020 09:00:00 PM EDT 25 U Subcutaneous aborted 25 Units, Subcutaneous, Nightly (Lantus), First dose on Mon12/17/20 at 2100
Basal Insulin (Lantus) Adjustments based on AM Blood Glucose Blood Glucose&nbs p; Adjustment Less than 70 mg/dl Nursing to initiate hypoglycemia protocol 70 to 100 mg/dl &nb sp; Pharmacy to decrease total daily dose by 20% 101 to 200 mg/dl &nb sp; No Change
[facility] Medication administered onsite carvedilol 6.25 MG Oral Tablet carvedilol (COREG) tabl et 6.25 mg carvedilol (COREG) tablet 6.25 mg 12/17/2020 09:00:00 PM EDT 6.25 mg Oral active 6.25 mg, Oral, 2 times daily, First dose on Mon12/17/20 at 2100 [facility] Medication administered onsite quetiapine 25 MG Oral Tablet QUEtiapine (SEROquel) tab let 25 mg QUEtiapine (SEROquel) tablet 25 mg 12/17/2020 09:00:00 PM EDT 25 mg Oral aborted 25 mg, Oral, Nightly, First dose on Sherrie 12/17/20 at 2100 [facility] Medication administered onsite potassium chloride SA (K-DUR,KLOR-CON) CR tablet 10 mEq [id number] 12/17/2020 09:00:00 PM EDT 10 meq Oral active 10 mEq, Oral, 2 times daily, First dose on Sherrie 12/17/20 at 2100 [facility] Medication administered onsite pregabalin 75 MG Oral Capsule pregabalin (LYRICA) caps ule 75 mg pregabalin (LYRICA) capsule 75 mg 12/17/2020 09:00:00 PM EDT 75 mg Oral active 75 mg, Oral, 2 times daily, First dose on Mon12/17/20 at 2100, For 7 days [facility] Medication administered onsite latanoprost 0.05 MG/ML Ophthalmic Soluti on latanoprost (XALATAN) 0.005 % ophthalmic solution 1 drop latanoprost (XALATAN) 0.005 % ophthalmic solution 1 drop 12/17/2020 09:00:00 PM EDT 1 [drp] active 1 drop, Both Eyes, Nightly, First dose on Sherrie 12/17/20 at 2100
Therapeutic substitution for home medication: JAYDEN
[facility] Medication administered onsite Allopurinol 100 MG Oral Tablet allopurinol (ZYLOPRIM) tablet 100 mg allopurinol (ZYLOPRIM) tablet 100 mg 12/17/2020 09:00:00 PM EDT 100 mg Oral active 100 mg, Oral, 2 times daily, First dose on Sherrie 12/17/20 at 2100 [facility] Medication administered onsite ferrous gluconate 324 MG Oral Tablet ferrous gluconate (FERGON) tablet 324 mg ferrous gluconate (FERGON) tablet 324 mg 12/17/2020 09:00:00 PM EDT 324 mg Oral active 324 mg, Oral, 2 times daily, First dose on Sherrie 12/17/20 at 2100
separate as far as possible from antacids, take with food
[facility] Medication administered onsite Calcium Carbonate 1250 MG / Cholecalcife rol 200 UNT Oral Tablet calcium-vitamin D (OSCAL-500) 500-200 MG-UNIT per tablet 1 tablet calcium-vitamin D (OSCAL-500) 500-200 MG-UNIT per tablet 1 tablet 12/17/2020 09:00:00 PM EDT 1 {tbl } Oral active 1 tablet, Oral, 2 times lia y, First dose on Sherrie 12/17/20 at 2100 [facility] Medication administered onsite 500 ML heparin sodium, porcine 50 UNT/ML Injection heparin infusion 25,000 units in 500 mL 0.45% NaCl heparin infusion 25,000 units in 500 mL 0.45% NaCl 12/17/2020 08:00:00 PM EDT 9 U/kg/h Intravenous aborted 9 Units/kg/hr 81.7 kg (14.706 mL/hr, rounded to 14.7 mL/hr), Intravenous, at 14.7 mL/hr, Continuous, Starting on Sherrie 12/17/20 at 2000
For Cardiac/BridgeaPTT (seconds) Heparin Dose (weight based)< 34 Bolus: 60 units/kg IV (Maximum bolus: 5,000 units) and increase infusion 3 units/kg/hr IV34 - 50 Bolus: 30 units/kg IV (Maximum bolus: 5,000 units) and increase infusion 2 units/kg/hr IV50.1 - 58 No bolus. Increase infusion 1 unit/kg/hr IV58.1 - 87 Therapeutic, No Gppkil70.1 - 97 Decrease infusion 1 unit/kg/hr IV 97.1 - 110Hold infusion for 30 minutes & decrease infusion 2 units/kg/hr IV> 110 Call MD if patient is bleeding. Hold infusion for 60 minutes & decrease infusion 3 units/kg/hr IVInitial heparin IV infusion rate:Do not exceed 1000 units/hr or 12 units/kg/hr initially (whichever is less)Infuse this medication only through single port tubing ([facility] Infusion Set ref [id number]). Medication and tubing is to be discarded if infusion off for 4 hours.
[facility] Medication administered onsite Insulin Lispro 100 UNT/ML Injectable Analisa ution insulin lispro (HumaLOG) injection 1-16 Units insulin lispro (HumaLOG) injection 1-16 Units 12/18/19 05:00:00 PM EDT U Subcutaneous aborted 1-1 6 Units, Subcutaneous, MEALSS, First dose on Sherrie 12/17/20 at 1700
8 units Nutritional and Correction Insulin Scale Blood Glucose (mg/dl) <70 start hypoglycemia protocol Glucose &nbsp ; Eats >=50% Eats <50%& amp;nbsp; Eats Nothing (mg/dl) of meal of meal or NPO &am p;nbsp;70- 120 5 units 3 units 0 units 121-170 & amp;nbsp; 8 units 4 units 0 units 171-220 & nbsp; 9 units 5 units 1 units 221-270 &nbsp ; 11 units 7 units 3 units 271- 320 12 units 8 units 4 units 321- 370 13 units 9 units 5 units 371-420 &n bsp; 15 units 11 units 7 units >420 call MD 16 units 12 units 8 units Test glucose within 30 minutes of insulin administration.&n bsp;Administer insulin within 15 minutes (before or after) of the patient starting to eat. For patients that are NPO, use the NPO (correction) scale to cover POC glucose at 08:00, 12:00, 17:00.
[facility] Medication administered onsite valsartan 80 MG Oral Tablet valsartan (DIOVAN) tablet 40 mg valsartan (DIOVAN) tablet 40 mg 12/17/2020 03:00:00 PM EDT 40 mg Oral activ e 40 mg, Oral, Daily, First dose on Sherrie 12/17/20 at 1500 [facility] Medication administered onsite Calcitriol 0.65723 MG Oral Capsule calcitriol (ROCALTR OL) capsule 0.25 mcg calcitriol (ROCALTROL) capsule 0.25 mcg 12/17/2020 03:00:00 PM EDT 0.25 ug Oral active 0.25 mcg, Oral, Lia y, First dose on Sherrie 12/17/20 at 1500 [facility] Medication administered onsite atorvastatin 80 MG Oral Tablet atorvastatin (LIPITOR) tablet 80 mg atorvastatin (LIPITOR) tablet 80 mg 12/17/2020 03:00:00 PM EDT 80 mg Oral aborted 80 mg, Oral, Daily, First dose on Sherrie 12/17/20 at 1500 [facility] Medication administered onsite pantoprazole 40 MG Delayed Release Oral Tablet pantoprazole (PROTONIX) EC tablet 40 mg pantoprazole (PROTONIX) EC tablet 40 mg 12/17/2020 03:00:00 PM E DT 40 mg Oral active Gastroesophageal Reflux Diseas e 40 mg, Oral, Daily, Indications: Gastroesophageal Reflux Disease, First dose on Sherrie 12/17/20 at 1500
Therapeutic substitution for home medication: omeprazole
[facility] Gastroesophageal Reflux Disease Medication administered onsite piperacillin-tazobactam (ZOSYN) 3.375 g in sodium chloride (NS) 0.9 % 100 mL IV pigtail 12/17/2020 03:00:00 PM EDT 3.375 g Intravenous aborted Skin and Soft Tissue Infection 3.375 g, Intravenous, Admini ster over 30 Minutes, Every 6 hours (relative), First dose on Sherrie 12/17/20 at 1500 [facility] Skin and Soft Tissue Infection Medication administered onsite Oxycodone Hydrochloride 5 MG Oral Tablet oxyCODONE (ROXICODONE) immediate release tablet 5 mg oxyCODONE (ROXICODONE) immediate release tablet 5 mg 12/17/2020 02:43:41 PM EDT 5 mg Oral active 5 mg, Oral, Every 4 hours PRN, moderate pain (4-6), severe pain (7-10), Starting on Sherrie 12/17/20 at 1443, For 7 days [facility] Medication administered onsite normal saline flush 0.9 % injection 3 mL [id number] 12/17/2020 02:00:00 PM EDT 3 mL Intravenous active 3 mL , Intravenous, Every 8 hours (scheduled), First dose on Sherrie 12/17/20 at 1400
flush per protocol, D/C Main IV fluid if appropriate
[facility] Medication administered onsite sodium chloride 0.9% (NS) infusion [id number] 12/17/2020 02:00:00 P M EDT Intravenous aborted at 50 mL/hr, Intravenous, Continuous, Starting on Sherrie 12/17/20 at 1400 [facility] Medication administered onsite Nitroglycerin 0.4 MG Sublingual Tablet n itroglycerin (NITROSTAT) SL tablet 0.4 mg nitroglycerin (NITROSTAT) SL tablet 0.4 mg 12/17/2020 01:55:32 P M EDT 0.4 mg Sublingual active 0.4 mg, S ublingual, Every 5 min PRN, chest pain, Starting on Sherrie 12/17/20 at 1355
May administer up to 3 doses per episode.
[facility] Medication administered onsite Albuterol 0.83 MG/ML Inhalant Solution a lbuterol (PROVENTIL) nebulizer solution 2.5 mg albuterol (PROVENTIL) nebulizer solution 2.5 mg 2020 01:55:14 PM EDT 2.5 mg active 2.5 mg, Nebulization, Every 6 hours PRN, shortness of breath, Starting on Sherrie 12/17/20 at 1355 [facility] Medication administered onsite Bisacodyl 10 MG Rectal Suppository bisacodyl (DULCOLAX ) suppository 10 mg bisacodyl (DULCOLAX) suppository 10 mg 12/17/2020 01:18:58 PM EDT 10 mg Rectal active 10 mg, Rectal, Daily PRN, constipation, Starting on Sherrie 12/17/20 at 1318
Hold for BM. If senna-docusate and milk of magnesia are not effective
[facility] Medication administered onsite ondansetron (ZOFRAN) injection 4 mg [id number] 12/17/2020 01:18:5 8 PM EDT 4 mg Intravenous active 4 mg, In travenous, Every 4 hours PRN, nausea, vomiting, Starting on Sherrie 12/17/20 at 1318 [facility] Medication administered onsite Acetaminophen 325 MG / Hydrocodone Bitartrate 5 MG Ora l Tablet Hydrocodone-Acetaminophen 12/15/2020 12:00:00 AM EDT ORAL active [facility] ([facility]) Acetaminophen 325 MG / Hydrocodone Bitartrate 5 MG Ora l Tablet 5-325 mg HYDROCODONE/ACETAMINOPHEN 12/15/2020 12:00:00 AM EDT tablet 30 TAKE ONE TABLET BY MOUTH EVERY 4 HOURS NEEDED FOR PAIN MAXIMUM DAILY DOSE = 6 TAKE ONE TABLET BY MOUTH EVERY 4 HOURS NEEDED FOR PAIN MAXIMUM DAILY DOSE = 6 SOLD: 12/20/2020 [facility] doxycycline hyclate 100 MG Oral Tablet Doxycycline Hyclate 0 11/23/2020 12:00:00 AM EDT ORAL completed [facility] ([facility]) doxycycline hyclate 100 MG Oral Tablet DOXYCYCLINE HYCLATE 0 11/23/2020 12:00:00 AM EDT tablet 14 TAKE ONE TABLET BY MOUTH TWI CE A DAY TAKE ONE TABLET BY MOUTH TWICE A DAY SOLD: 11/24/2020 [facility] 40 mg 10/22/2020 12:00:00 AM EDT tablet 90 TAKE ONE TABLET BY MOUTH EVERY DAY TAKE ONE TABLET BY MOUTH EVERY DAY SOLD: 01/24/2021 [facility] 5 mg 10/22/2020 12:00:00 AM EDT tablet 30 TAKE ONE TABLET BY MOUTH EVERY DAY TAKE ONE TABLET BY MOUTH EVERY DAY SOLD: 01/24/2021 [facility] 5 mg 10/22/2020 12:00:00 AM EDT tablet 30 TAKE ONE TABLET BY MOUTH EVERY DAY TAKE ONE TABLET BY MOUTH EVERY DAY SOLD: 12/20/2020 [facility] 40 mg 10/22/2020 12:00:00 AM EDT tablet 90 TAKE ONE TABLET BY MOUTH EVERY DAY TAKE ONE TABLET BY MOUTH EVERY DAY SOLD: 10/24/2020 [facility] 5 mg 10/22/2020 12:00:00 AM EDT tablet 30 TAKE ONE TABLET BY MOUTH EVERY DAY TAKE ONE TABLET BY MOUTH EVERY DAY SOLD: 11/14/2020 [facility] 5 mg 10/22/2020 12:00:00 AM EDT tablet 30 TAKE ONE TABLET BY MOUTH EVERY DAY TAKE ONE TABLET BY MOUTH EVERY DAY SOLD: 10/24/2020 [facility] Potassium Chloride 10 MEQ Extended Release Oral Capsule Pota ssium Chloride ER 10/20/2020 12:00:00 AM EDT ORAL active [facility] (Bolivar Sotomayor MD) Potassium Chloride 10 MEQ Extended Release Oral Capsule POTA SSIUM CHLORIDE 10/20/2020 12:00:00 AM EDT capsule, extended release 60 TAKE ONE CAPSULE BY MOUTH TWICE A DAY TAKE ONE CAPSULE BY MOUTH TWICE A DAY SOLD: 12/20/2020 [facility] Potassium Chloride 10 MEQ Extended Release Oral Capsule POTA SSIUM CHLORIDE 10/20/2020 12:00:00 AM EDT capsule, extended release 60 TAKE ONE CAPSULE BY MOUTH TWICE A DAY TAKE ONE CAPSULE BY MOUTH TWICE A DAY SOLD: 11/14/2020 [facility] Potassium Chloride 10 MEQ Extended Release Oral Capsule POTA SSIUM CHLORIDE 10/20/2020 12:00:00 AM EDT capsule, extended release 60 TAKE ONE CAPSULE BY MOUTH TWICE A DAY TAKE ONE CAPSULE BY MOUTH TWICE A DAY SOLD: 10/21/2020 [facility] 7.5 mg 10/17/2020 12:00:00 AM EDT tablet 180 TAKE 1 TABLET BY MOUTH TWICE A DAY TAKE 1 TABLET BY MOUTH TWICE A DAY SOLD: 10/20/2020 [facility] 7.5 mg 10/17/2020 12:00:00 AM EDT tablet 180 TAKE 1 TABLET BY MOUTH TWICE A DAY TAKE 1 TABLET BY MOUTH TWICE A DAY SOLD: 01/14/2021 [facility] carvedilol 6.25 MG Oral Tablet CARVEDILOL 10/14/2020 12:00:00 AM EDT tablet 180 TAKE ONE TABLET BY MOUTH TWICE A DAY TAKE ONE TABLET BY MOUT H TWICE A DAY SOLD: 10/16/2020 [facility] 250 mg 10/14/2020 12:00:00 AM EDT tablet 14 TAKE 1 TABLET BY MOUTH TWICE A DAY FOR ONE WEEK TAKE 1 TABLET BY MOUTH TWICE A DAY FOR ONE WEEK SOLD: 10/16/2020 [facility] 80 mg 10/14/2020 12:00:00 AM EDT tablet 90 TAKE ONE TABLET BY MOUTH EVERY DAY AT BEDTIME TAKE ONE TABLET BY MOUTH EVERY DAY AT BEDTIME SOLD: 10/16/2020 [facility] Ciprofloxacin 250 MG Oral Tablet Ciprofloxacin HCL 10/13/2020 12:00 :00 AM EDT ORAL active MEDENT (Bolivar Sotomayor MD) 100 mg 10/12/2020 12:00:00 AM EDT tablet 180 TAKE ONE TABLET BY MOUTH TWICE A DAY TAKE ONE TABLET BY MOUTH TWICE A DAY SOLD: 10/16/2020 [facility] 20 mg 10/12/2020 12:00:00 AM EDT capsule,delayed release (DR/EC) 90 TAKE ONE CAPSULE BY MOUTH EVERY DAY TAKE ONE CAPSULE BY MOUTH EVERY DAY SOLD: 10/16/2020 [facility] 100 mcg 10/12/2020 12:00:00 AM EDT tablet 90 TAKE ONE TABLET BY MOUTH EVERY DAY TAKE ONE TABLET BY MOUTH EVERY DAY SOLD: 10/16/2020 [facility] 75 mg 09/24/2020 12:00:00 AM EDT capsule 180 TAKE ONE CAPSULE BY MOUTH TWICE A DAY, MAXIMUM DAILY DOSE = 2 CAPSULES TAKE ONE CAPSULE BY MOUTH TWICE A DAY, MAXIMUM DAILY DOSE = 2 CAPSULES SOLD: 12/31/2020 [facility] 75 mg 09/24/2020 12:00:00 AM EDT capsule 180 TAKE ONE CAPSULE BY MOUTH TWICE A DAY, MAXIMUM DAILY DOSE = 2 CAPSULES TAKE ONE CAPSULE BY MOUTH TWICE A DAY, MAXIMUM DAILY DOSE = 2 CAPSULES SOLD: 09/26/2020 [facility] sodium chloride 0.9% (NS) infusion 9488-3192-94 09/14/2020 02:00:00 P M EDT Intravenous active at 100 mL/hr, Intravenous, Continuous, Starting on Mon09/14/20 at 1400, Pre-op [facility] Medication administered onsite iodixanol (VISIPAQUE) 320 MG/ML injection 150 mL [id number] 09/14/2020 12:21:01 PM EDT 150 mL Intra-arterial completed 150 mL, Intra-arterial, Once in imaging, contrast, Starting on Mon09/14/20 at 1221, For 1 dose [facility] Medication administered onsite protamine injection [id number] 09/14/2020 12:05:31 PM EDT completed Code/trauma/sedation medication, Startin g on Mon09/14/20 at 1205 [facility] Medication administered onsite heparin (porcine) injection 41277-688-29 09/14/2020 11:45:23 AM EDT completed Code/trauma/sedation medication, Starting on Mon09/14/20 at 1145 [facility] Medication administered onsite 2 ML Midazolam 1 MG/ML Injection midazolam (VERSED) in jection midazolam (VERSED) injection 09/14/2020 11:38:47 AM EDT Intravenous co mpleted Intravenous, Code/trauma/sedation medication, Starting on Mon09/14/20 at 1138 [facility] Medication administered onsite fentaNYL Citrate (PF) (SUBLIMAZE) injection [id number] 09/14/2020 11:38:43 AM EDT Intravenous completed In travenous, Code/trauma/sedation medication, Starting on Mon09/14/20 at 1138 [facility] Medication administered onsite sodium chloride 0.9% (NS) infusion 8352-7501-13 09/14/2020 10:00:00 A M EDT Intravenous active at 75 mL/hr, Intravenous, Continuous, Starting on Mon09/14/20 at 1000, Pre-op [facility] Medication administered onsite normal saline flush 0.9 % injection 3 mL [id number] 09/14/2020 10:00:00 AM EDT 3 mL Intravenous active 3 mL , Intravenous, Every 8 hours (scheduled), First dose on Mon09/14/20 at 1000, Pre-op
Rapid push positive pressure flushing shall be performed with a 10 cc normal saline syringe to check the PATENCY of a PIV site prior to any infusion therapy initiation unless resistance is met.
[facility] Medication administered onsite 1 % 09/08/2020 12:00:00 AM EDT cream 50 APPLY TOPICALLY TO ULCER TWO TIMES A DAY APPLY TOPICALLY TO ULCER TWO TIMES A DAY SOLD: 09/10/2020 [facility] Vitamin K 1 5 MG Oral Tablet PHYTONADIONE (VIT K1) 08/16/2020 12 :00:00 AM EDT tablet 2 TAKE ONE TABLET BY MOUTH NOW AND TAKE ONE TOMMOROW TAKE ONE TABLET BY MOUTH NOW AND TAKE ONE TOMMOROW SOLD: 08/16/2020 [facility] doxycycline hyclate 100 MG Oral Capsule DOXYCYCLINE HYCLATE 08/06/2020 12:00:00 AM EDT capsule 20 TAKE ONE CAPSULE BY MOUTH TW ICE A DAY TAKE ONE CAPSULE BY MOUTH TWICE A DAY SOLD: 08/08/2020 [facility] doxycycline hyclate 100 MG Oral Capsule Doxycycline Hyclate 08/06/2020 12:00:00 AM EDT active MEDENT (Jonelle Sotomayor MD) 1 mg 07/28/2020 12:00:00 AM EDT tablet 180 TAKE 3MG ( 3 TABLETS) BY MOUTH ONCE DAILY TAKE 3MG ( 3 TABLETS) BY MOUTH ONCE DAILY SOLD: 08/04/2020 [facility] 3 mg 07/19/2020 12:00:00 AM EST tablet 120 TAKE THREE TABLETS BY MOUTH EVERY DAY MAXIMUM DAILY DOSE = 3 TABLETS TAKE THREE TABLETS BY MOUTH EVERY DAY MAXIMUM DAILY DOSE = 3 TABLETS SOLD: 07/21/2020 [facility] 3 mg 07/19/2020 12:00:00 AM EST tablet 120 TAKE THREE TABLETS BY MOUTH EVERY DAY MAXIMUM DAILY DOSE = 3 TABLETS TAKE THREE TABLETS BY MOUTH EVERY DAY MAXIMUM DAILY DOSE = 3 TABLETS SOLD: 11/14/2020 [facility] 75 mg 07/17/2020 12:00:00 AM EST tablet 90 TAKE ONE TABLET BY MOUTH EVERY DAY TAKE ONE TABLET BY MOUTH EVERY DAY SOLD: 07/21/2020 [facility] 80 mg 07/17/2020 12:00:00 AM EST tablet 90 TAKE ONE TABLET BY MOUTH EVERY DAY AT BEDTIME TAKE ONE TABLET BY MOUTH EVERY DAY AT BEDTIME SOLD: 07/21/2020 [facility] Bumetanide 1 MG Oral Tablet BUMETANIDE 07/17/2020 12:00:00 AM EST tabl et 180 TAKE ONE TABLET BY MOUTH TWICE A DAY TAKE ONE TABLET BY MOUTH TWICE A DAY SOLD: 07/21/2020 [facility] Bumetanide 1 MG Oral Tablet BUMETANIDE 07/17/2020 12:00:00 AM EST tabl et 180 TAKE ONE TABLET BY MOUTH TWICE A DAY TAKE ONE TABLET BY MOUTH TWICE A DAY SOLD: 10/20/2020 [facility] carvedilol 6.25 MG Oral Tablet CARVEDILOL 07/17/2020 12:00:00 AM EST tablet 180 TAKE ONE TABLET BY MOUTH TWICE A DAY TAKE ONE TABLET BY MOUT H TWICE A DAY SOLD: 07/21/2020 [facility] 75 mg 07/17/2020 12:00:00 AM EST tablet 90 TAKE ONE TABLET BY MOUTH EVERY DAY TAKE ONE TABLET BY MOUTH EVERY DAY SOLD: 10/20/2020 [facility] Sulfamethoxazole 800 MG / Trimethoprim 160 MG Oral Tab let 800-160 mg SULFAMETHOXAZOLE/TRIMETHOPRIM 06/29/2020 12:00:00 AM EST tablet 20 TAKE ONE TABLET BY MOUTH TWICE A DAY TAKE ONE TABLET BY MOUTH TWICE A DAY SOLD: 07/01/2020 [facility] 75 mg 06/26/2020 12:00:00 AM EST capsule 180 TAKE ONE CAPSULE BY MOUTH TWICE A DAY MAXIMUM DAILY DOSE = 2 TAKE ONE CAPSULE BY MOUTH TWICE A DAY SANTY MIRANDA DAILY DOSE = 2 SOLD: 06/28/2020 [facility] normal saline flush 0.9 % injection 3 mL [id number] 06/12/2020 02:00:00 PM EST 3 mL Intravenous active 3 mL , Intravenous, Every 8 hours (scheduled), First dose on Mon06/12/20 at 1400, Pre-op
Rapid push positive pressure flushing shall be performed with a 10 cc normal saline syringe to check the PATENCY of a PIV site prior to any infusion therapy initiation unless resistance is met.
[facility] Medication administered onsite normal saline flush 0.9 % injection 3 mL [id number] 06/12/2020 02:00:00 PM EST 3 mL Intravenous active 3 mL , Intravenous, PROTOCOL, First dose on Mon06/12/20 at 1400, Pre-op
flush per protocol, D/C Main IV fluid if appropriate
[facility] Medication administered onsite iopamidol (ISOVUE-370) 76 % [id number] 06/12/2020 01:05:15 PM EST active As needed, Starting Mon06/12/20 at 1305, Intra-Procedur e [facility] Medication administered onsite lidocaine 1 % injection [id number] 06/12/2020 12:50:16 PM EST active As needed, Starting Mon06/12/20 a t 1250, Intra-Procedure [facility] Medication administered onsite fentaNYL Citrate (PF) (SUBLIMAZE) injection [id number] 06/12/2020 12:49:27 PM EST active As neede d, Starting Mon06/12/20 at 1249, Intra-Procedure [facility] Medication administered onsite 2 ML Midazolam 1 MG/ML Injection midazolam (VERSED) in jection midazolam (VERSED) injection 06/12/2020 12:49:08 PM EST active As needed, Starting Mon06/12/20 at 1249, Intra-Procedure [facility] Medication administered onsite sodium chloride 0.9% (NS) infusion [id number] 06/12/2020 11:00:00 AM EST 100 mL/h Intravenous active at 100 m L/hr, 100 mL/hr, Intravenous, Continuous, Starting Mon06/12/20 at 1100, Pre-op
Start two hours prior to scheduled start time
[facility] Medication administered onsite Acetaminophen 325 MG Oral Tablet acetaminophen (TYLENO L) 325 MG tablet 650 mg acetaminophen (TYLENOL) 325 MG tablet 650 mg 06/12/2020 10:07:53 AM EST 650 mg Oral active 650 mg, Or al, Every 4 hours PRN, headaches, and non cardiac pain, Starting Mon06/12/20 at 1007, Pre-op
"Maximum dose of acetaminophen is 4,000 mg from all sources in 24 hours."
[facility] Medication administered onsite clopidogrel 75 MG Oral Tablet [Plavix] Plavix 06/02/2020 12:00:00 AM EST ORAL active [facility] ([facility]) 2 % 05/29/2020 12:00:00 AM EST cream 60 APPLY TO RASH ON GROIN TWO TIMES A DAY APPLY TO RASH ON GROIN TWO TIMES A DAY SOLD: 05/29/2020 [facility] Potassium Chloride 10 MEQ Extended Release Oral Capsule POTA SSIUM CHLORIDE 05/16/2020 12:00:00 AM EST capsule, extended release 90 TAKE ONE CAPSULE BY MOUTH THREE TIMES A DAY WITH MEALS TAKE ONE CAPSULE BY MOUTH THREE TIMES A DAY WITH MEALS SOLD: 05/16/2020 [facility] 25 mg 05/16/2020 12:00:00 AM EST tablet 30 TAKE ONE TABLET BY MOUTH EVERY DAY AT BEDTIME NEEDED FOR AGITATION/PARANOIA TAKE ONE TABLET BY MOUTH EVERY DAY AT BEDTIME NEEDED FOR AGITATION/PARANOIA SOLD: 05/16/2020 [facility] doxycycline hyclate 100 MG Oral Capsule DOXYCYCLINE HYCLATE 05/16/2020 12:00:00 AM EST capsule 14 TAKE ONE CAPSULE BY MOUTH TW ICE A DAY FOR 7 DAYS TAKE ONE CAPSULE BY MOUTH TWICE A DAY FOR 7 DAYS SOLD: 05/16/2020 [facility] 20 mg 04/22/2020 12:00:00 AM EST capsule,delayed release (DR/EC) 90 TAKE ONE CAPSULE BY MOUTH EVERY DAY TAKE ONE CAPSULE BY MOUTH EVERY DAY SOLD: 04/26/2020 [facility] 100 mcg 04/22/2020 12:00:00 AM EST tablet 90 TAKE ONE TABLET BY MOUTH EVERY DAY TAKE ONE TABLET BY MOUTH EVERY DAY SOLD: 04/26/2020 [facility] 100 mg 04/19/2020 12:00:00 AM EST tablet 180 TAKE ONE TABLET BY MOUTH TWICE A DAY TAKE ONE TABLET BY MOUTH TWICE A DAY SOLD: 04/26/2020 [facility] Calcitriol 0.06182 MG Oral Capsule 0.25 mcg CALCITRIOL 04/19/2020 12:00:00 AM EST capsule 90 TAKE ONE CAPSULE BY MOUTH EV ART DAY TAKE ONE CAPSULE BY MOUTH EVERY DAY SOLD: 07/21/2020 [facility] 0.25 mcg 04/19/2020 12:00:00 AM EST capsule 90 TAKE ONE CAPSULE BY MOUTH EVERY DAY TAKE ONE CAPSULE BY MOUTH EVERY DAY SOLD: 10/20/2020 [facility] 0.25 mcg 04/19/2020 12:00:00 AM EST capsule 90 TAKE ONE CAPSULE BY MOUTH EVERY DAY TAKE ONE CAPSULE BY MOUTH EVERY DAY SOLD: 04/26/2020 [facility] 80 mg 04/19/2020 12:00:00 AM EST tablet 90 TAKE ONE TABLET BY MOUTH EVERY DAY AT BEDTIME TAKE ONE TABLET BY MOUTH EVERY DAY AT BEDTIME SOLD: 04/26/2020 [facility] carvedilol 6.25 MG Oral Tablet CARVEDILOL 04/19/2020 12:00:00 AM EST tablet 180 TAKE ONE TABLET BY MOUTH TWICE A DAY TAKE ONE TABLET BY MOUT H TWICE A DAY SOLD: 04/26/2020 [facility] Technetium TC 99M Sestamibi 04/09/2020 12:00:00 AM EST completed [facility] (Bolivar Sotomayor MD) Medication administered onsite Lexiscan 04/09/2020 12:00:00 AM EST completed [facility] (Bolivar Sotomayor MD) Medication administered onsite 40 mg 03/31/2020 12:00:00 AM EST tablet 90 TAKE ONE TABLET BY MOUTH EVERY DAY TAKE ONE TABLET BY MOUTH EVERY DAY SOLD: 04/09/2020 [facility] 40 mg 03/31/2020 12:00:00 AM EST tablet 90 TAKE ONE TABLET BY MOUTH EVERY DAY TAKE ONE TABLET BY MOUTH EVERY DAY SOLD: 07/21/2020 [facility] Levofloxacin 500 MG Oral Tablet Levofloxacin 03/30/2020 12:00:[address] ORAL active [facility] (Jonelle Sotomayor MD) Lactobacillus rhamnosus GG [id number] UNT Oral Capsule Cult urelle 03/30/2020 12:00:00 AM EST ORAL active M [facility] (Bolivar Sotomayor MD) valsartan 40 MG Oral Tablet Valsartan 03/30/2020 12:00:00 AM EST ORAL active [facility] (Bolivar Sotomayor MD) 500 mg 03/30/2020 12:00:00 AM EST tablet 5 TAKE ONE TABLET BY MOUTH EVERY DAY TAKE ONE TABLET BY MOUTH EVERY DAY SOLD: 04/01/2020 [facility] 100 mcg 01/27/2020 12:00:00 AM EDT tablet 90 TAKE ONE TABLET BY MOUTH EVERY DAY TAKE ONE TABLET BY MOUTH EVERY DAY SOLD: 01/28/2020 [facility] 20 mg 01/27/2020 12:00:00 AM EDT capsule,delayed release (DR/EC) 90 TAKE ONE CAPSULE BY MOUTH EVERY DAY TAKE ONE CAPSULE BY MOUTH EVERY DAY SOLD: 01/28/2020 [facility] 100 mg 01/26/2020 12:00:00 AM EDT tablet 180 TAKE ONE TABLET BY MOUTH TWICE A DAY TAKE ONE TABLET BY MOUTH TWICE A DAY SOLD: 01/28/2020 [facility] 31 gauge x 5/16" 01/26/2020 12:00:00 AM EDT needle 200 USE DIRECTED TO INJECT INSULIN DAILY USE DIRECTED TO INJECT INSULIN DAILY SOLD: 10/20/2020 [facility] 31 gauge x 5/16" 01/26/2020 12:00:00 AM EDT needle 100 USE DIRECTED TO INJECT INSULIN DAILY USE DIRECTED TO INJECT INSULIN DAILY SOLD: 01/28/2020 [facility] 7.5 mg 01/26/2020 12:00:00 AM EDT tablet 180 TAKE ONE TABLET BY MOUTH TWICE A DAY TAKE ONE TABLET BY MOUTH TWICE A DAY SOLD: 07/21/2020 [facility] 7.5 mg 01/26/2020 12:00:00 AM EDT tablet 180 TAKE ONE TABLET BY MOUTH TWICE A DAY TAKE ONE TABLET BY MOUTH TWICE A DAY SOLD: 04/26/2020 [facility] 31 gauge x 5/16" 01/26/2020 12:00:00 AM EDT needle 200 USE DIRECTED TO INJECT INSULIN DAILY USE DIRECTED TO INJECT INSULIN DAILY SOLD: 07/21/2020 [facility] 7.5 mg 01/26/2020 12:00:00 AM EDT tablet 180 TAKE ONE TABLET BY MOUTH TWICE A DAY TAKE ONE TABLET BY MOUTH TWICE A DAY SOLD: 01/28/2020 [facility] 31 gauge x 5/16" 01/26/2020 12:00:00 AM EDT needle 100 USE DIRECTED TO INJECT INSULIN DAILY USE DIRECTED TO INJECT INSULIN DAILY SOLD: 04/26/2020 [facility] BD Pen Needle/Short/Ultra-Fine/31G X 8mm 01/24/2020 12:00:00 AM EDT active [facility] ([facility] Bumetanide 1 MG Oral Tablet BUMETANIDE 01/14/2020 12:00:00 AM EDT tabl et 180 TAKE ONE TABLET BY MOUTH TWICE A DAY TAKE ONE TABLET BY MOUTH TWICE A DAY SOLD: 01/23/2020 [facility] 80 mg 01/14/2020 12:00:00 AM EDT tablet 90 TAKE ONE TABLET BY MOUTH EVERY DAY AT BEDTIME TAKE ONE TABLET BY MOUTH EVERY DAY AT BEDTIME SOLD: 01/23/2020 [facility] 75 mg 01/14/2020 12:00:00 AM EDT tablet 90 TAKE ONE TABLET BY MOUTH EVERY DAY TAKE ONE TABLET BY MOUTH EVERY DAY SOLD: 04/26/2020 [facility] 75 mg 01/14/2020 12:00:00 AM EDT tablet 90 TAKE ONE TABLET BY MOUTH EVERY DAY TAKE ONE TABLET BY MOUTH EVERY DAY SOLD: 01/23/2020 [facility] Bumetanide 1 MG Oral Tablet BUMETANIDE 01/14/2020 12:00:00 AM EDT tabl et 180 TAKE ONE TABLET BY MOUTH TWICE A DAY TAKE ONE TABLET BY MOUTH TWICE A DAY SOLD: 04/26/2020 [facility] carvedilol 6.25 MG Oral Tablet CARVEDILOL 01/14/2020 12:00:00 AM EDT tablet 180 TAKE ONE TABLET BY MOUTH TWICE A DAY TAKE ONE TABLET BY MOUT H TWICE A DAY SOLD: 01/23/2020 [facility] 75 mg 12/06/2019 12:00:00 AM EDT capsule 180 TAKE ONE CAPSULE BY MOUTH TWICE A DAY - MAXIMUM DAILY DOSE = 2 TAKE ONE CAPSULE BY MOUTH TWICE A DAY - MAXIMUM DAILY DOSE = 2 SOLD: 03/07/2020 [facility] Warfarin Sodium 1 MG Oral Tablet WARFARIN SODIUM 10/21/2019 12:0 0:00 AM EDT tablet 120 TAKE THREE TABLETS BY MOUTH EVER Y DAY TAKE THREE TABLETS BY MOUTH EVERY DAY SOLD: 01/10/2020 [facility] 1 mg 10/21/2019 12:00:00 AM EDT tablet 120 TAKE THREE TABLETS BY MOUTH EVERY DAY TAKE THREE TABLETS BY MOUTH EVERY DAY SOLD: 04/09/2020 [facility] 1 mg 10/21/2019 12:00:00 AM EDT tablet 120 TAKE THREE TABLETS BY MOUTH EVERY DAY TAKE THREE TABLETS BY MOUTH EVERY DAY SOLD: 05/29/2020 [facility] 1 mg 10/21/2019 12:00:00 AM EDT tablet 120 TAKE THREE TABLETS BY MOUTH EVERY DAY TAKE THREE TABLETS BY MOUTH EVERY DAY SOLD: 02/18/2020 [facility] 300 unit/mL (3 mL) 10/09/2019 12:00:00 AM EDT insulin pen 12 INJECT 45 UNITS UNDER THE SKIN ONCE DAILY INJECT 45 UNITS UNDER THE SKIN ONCE DAILY SOLD: 04/30/2020 [facility] 300 unit/mL (3 mL) 10/09/2019 12:00:00 AM EDT insulin pen 12 INJECT 45 UNITS UNDER THE SKIN ONCE DAILY INJECT 45 UNITS UNDER THE SKIN ONCE DAILY SOLD: 01/04/2020 [facility] Calcitriol 0.82620 MG Oral Capsule 0.25 mcg CALCITRIOL 07/22/2019 12:00:00 AM EDT capsule 90 TAKE ONE CAPSULE BY MOUTH EV ART DAY TAKE ONE CAPSULE BY MOUTH EVERY DAY SOLD: 01/23/2020 [facility] torsemide 10 MG Oral Tablet torsemide (DEMADEX) 10 MG tablet torsemide (DEMADEX) 10 MG tablet 40 mg Oral aborted Ta ke 40 mg by mouth 2 (two) times a day [facility] quetiapine 25 MG Oral Tablet QUEtiapine (SEROQUEL) 25 MG tablet QUEtiapine (SEROQUEL) 25 MG tablet 25 mg Oral aborted Take 25 mg by mouth nightly [facility] Insurance Providers Payer name Policy type / Coverage type Policy ID Covered constitution party ID Covered constitution party's relationship to estrella Policy Estrella Plan Information Medicare Medicare Primary [id number] Family Dependent [id number] Medicare Medicare Primary [id number] .[id number] Family Dependent [id number] Medicare Medicare Primary [id number] Family Dependent [id number] MEDICARE [id number] xxxxxxxxxxx [id number] Medicare Medicare Primary [id number] Family Dependent [id number] MEDICARE [id number] Keerthi [id number] A MEDICARE [id number] Keerthi [id number] Medicare Medicare Primary [id number] .[id number] Family Dependent [id number] MEDICARE A [id number] Self [id number] A [facility] HEALTH CARE OPTIONS [id number] SP [id number] [facility] [id number] Keerthi [id number] [facility] 2 [id number] 1 [id number] 1 [facility] [id number] xxxxxxxxxxx [id number] AAR U [id number] Self [id number] [employer] [id number] Self [id number] [employer] [id number] Self [id number] [employer] [id number] Self [id number] [employer] [id number] Self [id number] [employer] [id number] Self [id number] [facility] [employer] [id number] Self [id number] [place] Medicare Part B [id number] Self [id number] INSURANCE COVID-19 COVID Keerthi C OVID MEDICARE C [id number] S [id number] A [facility] Medigap Part B [id number] Self [id number] Medicare Part B Medicare Primary [id number] Self [id number] [facility] PI PI MEDICARE PI PI [employer] Medigap Part B [id number] Family Dependent [id number] [facility] Health Care Options Medigap Part B [id number] Self [id number] [place] Part A [place] Primary [id number] .[id number] Self [id number] [employer] [place] [place] [id number] 18 [id number] MEDICARE PART A [facility] [id number] 18 [id number] [employer] Medigap Part B [id number] Family Dependent [id number] [employer] Medigap Part B [id number] 1255.0 Self [id number] Medicare Part B Medicare Primary [id number] Self [id number] [employer] Medigap Part B [id number] 1255.0 Self [id number] Medicare Part B Medicare Primary [id number] Self [id number] [employer] [id number] Self Medicare Part B Medicare Primary [id number] Self MEDICARE [id number] SP [id number] MEDICARE -O/P [id number] 18 [id number] SELF PAY UNAVAILABLE UNAVAILA BLE MEDICARE PART A -RECURRING [id number] 18 [id number] [employer] OPTIONS [id number] SP [id number] SELF PAY 2 UNAVAILABLE 1 UNAVAILA BLE MEDICARE -RECURRING [id number] 18 [id number] [employer] OPTIONS [id number] SP [id number] MEDICARE PART A-O/P [id number] 18 [id number] [employer] C[employer] OPTIONS-O/P [id number] 18 [id number] MEDICARE PART A -I/P [id number] 18 [id number] [facility] [id number] 18 [id number] MEDICARE [place] [id number] 18 [id number] MEDICARE PART A [facility] [id number] 18 [id number] MEDICARE PART A-O/P [id number] 18 [id number] [facility] Part B [id number] 1255.0 Self [id number] Medicare Part B Medicare Primary [id number] Self [id number] MEDICARE -RECURRING [id number] 18 [id number] [facility] HEALTH CARE OPTIONS -RECURRING [id number] 18 [id number] [facility] Part B [id number] Family Dependent [id number] MEDICARE -SWING BED [id number] 18 [id number] [facility] Part B [id number] Family Dependent [id number] MEDICARE PART A -I/P [id number] 18 [id number] [facility] Part B [id number] 1255.0 Self [id number] Medicare Part B Medicare Primary [id number] Self [id number] [facility] Part B [id number] Family Dependent [id number] MEDICARE [id number] SP [id number] A AAR O [id number] S [id number] Problems, Conditions, and Diagnoses Code Display Name Description Problem Type Effective Dates Data Source(s) I73.9 Peripheral vascular disease, unspecified Peripheral vascular disease, unspecified Diagnosis 12/17/2020 11:58:00 AM EDT [facility] I99.8 Other disorder of circulatory system Other disor emlia of circulatory system Diagnosis 12/17/2020 11:58:[address] [facility] I6523 Occlusion and stenosis of bilateral rao tid arteries Occlusion and stenosis of bilateral carotid arteries Diagnosis 12/11/2020 10:41:00 A M EDT [facility] D698 Other specified hemorrhagic conditions O ther specified hemorrhagic conditions Diagnosis 12/11/2020 10:41:00 AM EDT [facility] [id number] Encounter for other preprocedural examin ation Encounter for other preprocedural examination Diagnosis 12/11/2020 10:41:00 AM EDT [facility] E039 Hypothyroidism, unspecified Hypothyroidism, unspecifie d Diagnosis 10/09/2020 03:14:00 PM EDT [facility] [id number] Muscle weakness (generalized) Muscle weakness (general ized) Diagnosis 10/09/2020 03:14:00 PM EDT [facility] I2510 Atherosclerotic heart diseas e of [place] coronary artery without angina pectoris Atherosclerotic heart disease of [place] coronary artery without angina pectoris Diagnosis 10/09/2020 03:14:00 PM EDT [facility] Z794 ambulatory care (current) use of insulin ambulatory care (cu rrent) use of insulin Diagnosis 10/09/2020 03:14:00 PM EDT [facility] E119 Type 2 diabetes mellitus without complic ations Type 2 diabetes mellitus without complications Diagnosis 10/09/2020 03:14:00 PM EDT [facility] J449 Chronic obstructive pulmonary disease, u nspecified Chronic obstructive pulmonary disease, unspecified Diagnosis 10/09/2020 03:14:00 PM EDT [facility] Z952 Presence of prosthetic heart valve Presence of p rosthetic heart valve Diagnosis 10/09/2020 03:14:00 PM EDT [facility] I110 Hypertensive heart disease with heart fa ilure Hypertensive heart disease with heart failure Diagnosis 10/09/2020 03:14:00 PM EDT [facility] L308 Other specified dermatitis Other specified dermatitis Diagnosis 10/09/2020 03:14:00 PM EDT [facility] [id number] Unspecified atherosclerosis of [place] arteries of extremities, unspecified extremity Unspecified atherosclerosis of [place] ar teries of extremities, unspecified extremity Diagnosis 10/09/2020 03:14:00 PM ED T [facility] E785 Hyperlipidemia, unspecified Hyperlipidemia, unspecifie d Diagnosis 10/09/2020 03:14:00 PM EDT [facility] I5020 Unspecified systolic (congestive) heart failure Unspecified systolic (congestive) heart failure Diagnosis 10/09/2020 03:14:00 PM EDT [facility] I509 Heart failure, unspecified Heart failure, unspecified Diagnosis 10/09/2020 03:14:00 PM EDT [facility] Z1152 ENCOUNTER FOR SCREENING FOR COVID-19 ENCOUNTER F OR SCREENING FOR COVID-19 Diagnosis 10/09/2020 12:19:00 PM EDT [facility] M7989 Other specified soft tissue disorders Ot her specified soft tissue disorders Diagnosis 10/09/2020 12:19:00 PM EDT [facility] I5021 Acute systolic (congestive) heart failur e Acute systolic (congestive) heart failure Diagnosis 10/09/2020 12:19:00 PM EDT [facility] 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, left leg Atherosclerosis of [place] arteries of ex Diagnosis 09/14/2020 09:19:00 AM EDT [facility] R94.39 Abnormal result of other cardiovascular function study Abnormal result of other cardiovascular Diagnosis 06/12/2020 09:59:00 AM [facility] 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 Acute on chronic combined systolic (antoinette Diagnosis 06/12/2020 09:59:00 AM EST [facility] 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, thoracic region Other intervertebral disc degeneration, thoracic region Diagnosis 07/2020 11:30:00 AM [facility] 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, lumbar region Other intervertebral disc degeneration, lumbar region Diagnosis 06/10/2020 11:30:00 AM [facility] M8588 Other specified disorders of bone densit y and structure, other site Other specified disorders of bone density and structure, other site Diagnosis 06/10/2020 11:30:00 AM [facility] Z711 Person with feared health complaint in w cathleen no diagnosis is made Person with feared health complaint in whom no diagnosis is made Diagnosis 06/02/2020 09:04:00 AM [facility] Z7901 retirement (current) use of anticoagulant s ambulatory care (current) use of anticoagulants Diagnosis 05/19/2020 10:54:00 AM [facility] I4891 Unspecified atrial fibrillation Unspecified atrial fib rillation Diagnosis 05/19/2020 10:54:00 AM [facility] N390 Urinary tract infection, site not specif ied Urinary tract infection, site not specified Diagnosis 05/19/2020 10:54:00 AM [facility] Z9981 Dependence on supplemental oxygen Dependence on supplemental oxygen Diagnosis 05/09/2020 06:50:00 PM [facility] B9629 Other Escherichia coli [E. c dirk] as the cause of diseases classified elsewhere Other Escherichia coli [E. coli] as the cause of diseases classified elsewhere Diagnosis 05/09/2020 06:50:00 PM [facility] G4700 Insomnia, unspecified Insomnia, unspecified Diagnosis 05/09/2020 06:50:00 PM [facility] F22 Delusional disorders Delusional disorders Diagnosis 05/09/2020 06:50:00 PM [facility] J189 Pneumonia, unspecified organism Pneumonia, unspecified organism Diagnosis 05/09/2020 06:50:00 PM [facility] E876 Hypokalemia Hypokalemia Diagnosis 05/06/2020 04:16:00 PM [facility] E559 Vitamin D deficiency, unspecified Vitamin D defi ciency, unspecified Diagnosis 05/06/2020 04:16:00 PM [facility] K17538 Atherosclerotic heart diseas e of [place] coronary artery with other forms of angina pectoris 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 of angina pectoris Diagnosis 05/06/2020 04:16:00 PM [facility] E7800 Pure hypercholesterolemia, unspecified P ure hypercholesterolemia, unspecified Diagnosis 05/06/2020 04:16:00 PM [facility] M109 Gout, unspecified Gout, unspecified Diagnosis 03/25/2020 09:00:00 AM [facility] Z950 Presence of cardiac pacemaker Presence of cardiac pace maker Diagnosis 03/25/2020 09:00:00 AM [facility] J181 Lobar pneumonia, unspecified organism Lo bar pneumonia, unspecified organism Diagnosis 03/25/2020 09:00:00 AM [facility] E1165 Type 2 diabetes mellitus with hyperglyce luis Type 2 diabetes mellitus with hyperglycemia Diagnosis 03/23/2020 02:25:00 PM [facility] L97.524 [id number] Non-pressure chronic ulcer of other part of left foot with necrosis of bone Problem 02/01/2021 12:00:00 AM EDT eCW1 ([facility]) B35.1 [id number] Tinea unguium Problem 02/01/2021 12:00:00 AM EDT eCW1 ([facility]) I70.249 [id number] Atherosclerosis of n ative arteries of left leg with ulceration of unspecified site Problem 02/01/2021 12:00:00 AM EDT eCW1 ([facility]) [id number] Urinary incontinence Urinary incontinence Problem 12/17/2020 12:00:00 AM EDT [facility] ([facility]) [id number] Sleep apnea Sleep apnea Problem 12/17/2020 12:00:00 AM EDT [facility] ([facility]) [id number] Peripheral arterial disease Peripheral arterial diseas e Problem 12/17/2020 12:00:00 AM EDT [facility] ([facility]) [id number] Osteoarthritis Osteoarthritis Problem 12/17/2020 12:00: 00 AM EDT [facility] ([facility]) [id number] Long-term current use of anticoagulant L gayathri-term current use of anticoagulant Problem 12/17/2020 12:00:00 AM EDT [facility] ([facility]) Note: Overview: coumadin [id number] Hypothyroidism Hypothyroidism Problem 12/17/2020 12:00: 00 AM EDT [facility] ([facility]) [id number] Hearing loss Hearing loss Problem 12/17/2020 12:00:00 A M EDT [facility] ([facility]) 03249054 Essential hypertension Essential hypertension Problem 12/17/2020 12:00:00 AM EDT [facility] ([facility]) 72186908 Diabetes mellitus Diabetes mellitus Problem 12/17/2020 12:00:00 AM EDT [facility] ([facility]) Note: Overview: Type 2, insulin requirin g [id number] Coronary arteriosclerosis Coronary arteriosclerosis Pr oblem 12/17/2020 12:00:00 AM EDT [facility] ([facility]) [id number] Chronic kidney disease Chronic kidney disease Problem 12/17/2020 12:00:00 AM EDT [facility] ([facility]) Note: Overview: renal calculi [id number] Cerebrovascular accident Cerebrovascular accident Prob lore 12/17/2020 12:00:00 AM EDT [facility] ([facility]) N18.9 Chronic kidney disease Chronic kidney disease 08162940 12/17/2020 12:00:00 AM EDT [facility] E03.9 Hypothyroidism Hypothyroidism 03250101 12/17/2020 12:00: 00 AM EDT [facility] R32 Urinary incontinence Urinary incontinence 67293545 12/17/2020 12:00:00 AM EDT [facility] Z79.01 ambulatory care current use of anticoagulant L gayathri term current use of anticoagulant 65268150 12/17/2020 12:00:00 AM EDT [facility] I63.9 Stroke Stroke 98441265 12/17/2020 12:00:00 AM ED T [facility] H91.90 Hearing loss Hearing loss 85926417 12/17/2020 12:00:00 A M EDT [facility] G47.30 Sleep apnea Sleep apnea 94291512 12/17/2020 12:00:00 AM EDT [facility] M19.90 Osteoarthritis Osteoarthritis 91550235 12/17/2020 12:00: 00 AM EDT [facility] E11.9 Diabetes mellitus Diabetes mellitus 89539662 12/17/2020 12:00:00 AM EDT [facility] I10 Hypertension, essential Hypertension, essential 923769 12/17/2020 12:00:00 AM EDT [facility] I25.10 Coronary artery disease Coronary artery disease 480339 01 12/17/2020 12:00:00 AM EDT [facility] I73.9 PAD (peripheral artery disease) PAD (peripheral artery disease) 08079532 12/17/2020 12:00:00 AM EDT [facility] 92800508 Type 2 diabetes mellitus Type 2 diabetes mellitus Prob lore 02/04/2020 12:00:00 AM EDT [facility] ([facility] ) Surgeries/Procedures Procedure Description Date Indications Data Source(s) FINE NEEDLE ASPIRATION W/O IMAGING GUIDANCE 02/10/2021 12:00:00 AM EDT eCW1 ([facility]) Med: Cadexomer Iodine gel topical IODOSORB 10 2020 12:00:00 AM EDT eCW1 ([facility]) Med: Cadexomer Iodine gel topical IODOSORB 10 2020 12:00:00 AM EDT eCW1 ([facility]) Medication: Silver Nitrate Stick topically 02/01/2021 12:00:00 AM EDT eCW1 ([facility]) FINE NEEDLE ASPIRATION W/O IMAGING GUIDANCE 02/01/2021 12:00:00 AM EDT eCW1 ([facility]) Medication: 2% Lidocaine intradermal 02/01/2021 12:00: 00 AM EDT eCW1 ([facility]) OFFICE OUTPATIENT VISIT 25 MINUTES 2021 12:00:00 AM EDT [facility] ([facility]) GLUC BLD GLUC MNTR DEV CLEARED FDA SPEC HOME USE <td>P OCT GLUCOSE</td><td>Routine</td><td>12/19/2020 1:59 PM EDT</td><td></td><td> </td> 12/19/2020 01:59:00 PM EDT [facility] GLUC BLD GLUC MNTR DEV CLEARED FDA SPEC HOME USE <td>P OCT GLUCOSE</td><td>Routine</td><td>12/19/2020 9:44 AM EDT</td><td></td><td> </td> 12/19/2020 09:44:00 AM EDT [facility] PROTHROMBIN TIME <td>PROTIME-INR</td><td>Rout ine</td><td>12/19/2020 9:14 AM EDT</td><td></td><td> </td> 12/19/2020 09:14:00 AM EDT [facility] BLOOD COUNT COMPLETE AUTOMATED <td>CBC</td><td>Timed</ td><td>12/19/2020 9:14 AM EDT</td><td></td><td> </td> 12/19/2020 09:14:00 AM EDT [facility] BASIC METABOLIC PANEL CALCIUM TOTAL <td>BASIC METABOLI C PANEL</td><td>Timed</td><td>12/19/2020 9:14 AM EDT</td><td></td><td> </td> 12/19/2020 09:14:00 AM EDT [facility] GLUC BLD GLUC MNTR DEV CLEARED FDA SPEC HOME USE <td>P OCT GLUCOSE</td><td>Routine</td><td>12/18/2020 6:41 PM EDT</td><td></td><td> </td> 12/18/2020 06:41:00 PM EDT [facility] GLUC BLD GLUC MNTR DEV CLEARED FDA SPEC HOME USE <td>P OCT GLUCOSE</td><td>Routine</td><td>12/18/2020 4:11 PM EDT</td><td></td><td> </td> 12/18/2020 04:11:00 PM EDT [facility] US VASC ACCESS SITS VSL PATENCY NDL ENTRY <td>IR IS AR TERIOGRAM EXTREMITY SINGLE LEFT</td><td>Routine</td><td>12/18/2020 2:24 PM EDT</td><td></td><td> </td> 12/18/2020 02:24:58 PM EDT [facility] GLUC BLD GLUC MNTR DEV CLEARED FDA SPEC HOME USE <td>P OCT GLUCOSE</td><td>Routine</td><td>12/18/2020 11:19 AM EDT</td><td></td><td> </td> 12/18/2020 11:19:00 AM EDT [facility] GLUC BLD GLUC MNTR DEV CLEARED FDA SPEC HOME USE <td>P OCT GLUCOSE</td><td>Routine</td><td>12/18/2020 10:54 AM EDT</td><td></td><td> </td> 12/18/2020 10:54:00 AM EDT [facility] GLUC BLD GLUC MNTR DEV CLEARED FDA SPEC HOME USE <td>P OCT GLUCOSE</td><td>Routine</td><td>12/18/2020 10:35 AM EDT</td><td></td><td> </td> 12/18/2020 10:35:00 AM EDT [facility] GLUC BLD GLUC MNTR DEV CLEARED FDA SPEC HOME USE <td>P OCT GLUCOSE</td><td>Routine</td><td>12/18/2020 10:12 AM EDT</td><td></td><td> </td> 12/18/2020 10:12:00 AM EDT [facility] GLUC BLD GLUC MNTR DEV CLEARED FDA SPEC HOME USE <td>P OCT GLUCOSE</td><td>Routine</td><td>12/18/2020 9:51 AM EDT</td><td></td><td> </td> 12/18/2020 09:51:00 AM EDT [facility] THROMBOPLASTIN TIME PARTIAL PLASMA/WHOLE BLOOD <td>APTT</td><td>STAT</td><td>12/18/2020 7:27 AM EDT</td><td></td><td> </td> 12/18/2020 07:27:00 AM EDT [facility] PROTHROMBIN TIME <td>PROTIME-INR</td><td>Add- On</td><td>12/18/2020 7:27 AM EDT</td><td></td><td> </td> 12/18/2020 07:27:00 AM EDT [facility] BLOOD COUNT COMPLETE AUTOMATED <td>CBC</td><td>Timed</ td><td>12/18/2020 7:27 AM EDT</td><td></td><td> </td> 12/18/2020 07:27:00 AM EDT [facility] BLOOD TYPING ABO <td>TYPE AND SCREEN</td><td> Routine</td><td>12/18/2020 7:27 AM EDT</td><td></td><td> </td> 12/18/2020 07:27:00 AM EDT [facility] BASIC METABOLIC PANEL CALCIUM TOTAL <td>BASIC METABOLI C PANEL</td><td>Timed</td><td>12/18/2020 7:27 AM EDT</td><td></td><td> </td> 12/18/2020 07:27:00 AM EDT [facility] Catheter Placement Arterial System Init 2ND Ord Abdom/Pel/Lo w Ext 12/18/2020 12:00:00 AM EDT [facility]) Angiography-Extremity Unilateral 12/18/2020 12:00:00 A M EDT [facility] ([facility]) Ultrasound Guidance 12/18/2020 12:00:00 AM EDT [facility] ([facility]) Moderate Sedation Services; Same Phys Intl 15 Mins; PT >= 5 Years 12/18/2020 12:00:00 AM EDT [facility] ([facility]) HEMOGLOBIN GLYCOSYLATED A1C <td>HEMOGLOBIN A1C</td><td>Routine</td><td>12/17/2020 8:29 PM EDT</td><td></td><td> </td> 12/17/2020 08:29:00 PM EDT [facility] THROMBOPLASTIN TIME PARTIAL PLASMA/WHOLE BLOOD <td>APTT</td><td>Routine</td><td>12/17/2020 8:28 PM EDT</td><td></td><td> </td> 12/17/2020 08:28:00 PM EDT [facility] COVID/FLU AB/RSV PCR <td>COVID/FLU AB/RSV PCR</td ><td>STAT</td><td>12/17/2020 3:10 PM EDT</td><td></td><td> </td> 12/17/2020 03:10:00 PM EDT [facility] ECG ROUTINE ECG W/LEAST 12 LDS TRCG ONLY W/O I&R <td>E CG 12- LEAD</td><td>Routine</td><td>12/17/2020 3:02 PM EDT</td><td></td><td></td> 12/17/2020 03:02:25 PM EDT [facility] THROMBOPLASTIN TIME PARTIAL PLASMA/WHOLE BLOOD <td>APTT</td><td>Routine</td><td>12/17/2020 1:36 PM EDT</td><td></td><td> </td> 12/17/2020 01:36:00 PM EDT [facility] PROTHROMBIN TIME <td>PROTIME-INR</td><td>Rout ine</td><td>12/17/2020 1:36 PM EDT</td><td></td><td> </td> 12/17/2020 01:36:00 PM EDT [facility] BLOOD COUNT COMPLETE AUTOMATED <td>CBC</td><td>Routine </td><td>12/17/2020 1:36 PM EDT</td><td></td><td> </td> 12/17/2020 01:36:00 PM EDT [facility] HEMOGLOBIN GLYCOSYLATED A1C <td>HEMOGLOBIN A1C</td><td >Add-On</td><td>12/17/2020 1:36 PM EDT</td><td></td><td> </td> 12/17/2020 01:36:00 PM EDT [facility] BASIC METABOLIC PANEL CALCIUM TOTAL <td>BASIC METABOLI C PANEL</td><td>Routine</td><td>12/17/2020 1:36 PM EDT</td><td></td><td> </td> 12/17/2020 01:36:00 PM EDT [facility] Electrocardiogram Tracing Only 12/17/2020 12:00:00 AM EDT [facility] ([facility]) INTERROGATION EVAL IN PERSON 1/DUAL/PATIENT FINANCIAL SERVICES MANAGER LEAD PM 2020 12:00:00 AM EDT [facility] ([facility]) OFFICE OUTPATIENT VISIT 15 MINUTES 12/14/2020 12:00:00 AM EDT [facility] ([facility]) OFFICE OUTPATIENT NEW 45 MINUTES 11/27/2020 12:00:00 A M EDT [facility] ([facility] DIEM INTERPRETER) DUPLEX SCAN EXTRACRANIAL ART COMPL BI STUDY 11/23/2020 12:00:00 AM EDT [facility] ([facility]) OFFICE OUTPATIENT VISIT 25 MINUTES 11/23/2020 12:00:00 AM EDT [facility] ([facility]) OFFICE OUTPATIENT VISIT 25 MINUTES 11/19/2020 12:00:00 AM EDT [facility] ([facility]) ECG ROUTINE ECG W/LEAST 12 LDS W/I&R 10/20/2020 12:00: 00 AM EDT [facility] ([facility]) OFFICE OUTPATIENT VISIT 25 MINUTES 10/20/2020 12:00:00 AM EDT [facility] ([facility]) OFFICE OUTPATIENT VISIT 15 MINUTES 10/14/2020 12:00:00 AM EDT [facility] ([facility]) HOSPITAL DISCHARGE DAY MANAGEMENT 30 MIN/< 10/13/2020 12:00:00 AM EDT [facility] ([facility] Sotomayor MD) [facility] HOSPITAL CARE/DAY 15 MINUTES 10/12/2020 12:00:00 AM EDT [facility] ([facility] Sotomayor MD) [facility] HOSPITAL CARE/DAY 15 MINUTES 10/11/2020 12:00:00 AM EDT [facility] ([facility] Sotomayor MD) Plain Radiography of Chest Plain Radiography of Chest 2020 12:00:00 AM EDT [facility] HOSPITAL CARE/DAY 25 MINUTES 10/10/2020 12:00:00 AM EDT [facility] ([facility]) INITIAL HOSPITAL CARE/DAY 50 MINUTES 10/09/2020 12:00: 00 AM EDT [facility] ([facility]) Monitoring of Cardiac Electrical Activity, External Ap proach Monitoring of Cardiac Electrical Activity, External Approach 10/09/2020 12:00:00 AM EDT [facility] Introduction of Vasopressor into Peripheral Vein, Perc utaneous Approach Introduction of Vasopressor into Peripheral Vein, Percutaneous Approach 10/09/2020 12:00:00 AM EDT [facility] OFFICE OUTPATIENT VISIT 15 MINUTES 09/23/2020 12:00:00 AM EDT [facility] ([facility]) SLCTV CATHJ 2ND ORDER ABDL PEL/LXTR ART BRNCH <td>IR I S ARTERIOGRAM EXTREMITY SINGLE LEFT</td><td>Routine</td><td>09/14/2020 12:20 PM EDT</td><td> Atherosclerosis of [place] arteries of extremities with intermittent claudication, left leg</td><td> </td> 09/14/2020 12:20:36 PM EDT Atherosclerosis of [place] arteries of ex tremities with intermittent claudication, left leg [facility] Atherosclerosis of [place] arteries of ex tremities with intermittent claudication, left leg GLUC BLD GLUC MNTR DEV CLEARED FDA SPEC HOME USE <td>P OCT GLUCOSE</td><td>Routine</td><td>09/14/2020 10:13 AM EDT</td><td></td><td> </td> 09/14/2020 10:13:00 AM EDT [facility] PROTHROMBIN TIME <td>POCT INR</td><td>Routine </td><td>09/14/2020 10:00 AM EDT</td><td></td><td> </td> 09/14/2020 10:00:00 AM EDT [facility] Femoral-Popliteal Angioplasty 09/14/2020 12:00:00 AM E DT [facility] ([facility]) Angiography-Extremity Unilateral 09/14/2020 12:00:00 A M EDT [facility] ([facility]) Moderate Sedation Services; Same Phys Intl 15 Mins; PT >= 5 Years 09/14/2020 12:00:00 AM EDT [facility] ([facility]) INTERROGATION EVAL IN PERSON 1/DUAL/PATIENT FINANCIAL SERVICES MANAGER LEAD PM 2020 12:00:00 AM EDT [facility] ([facility]) OFFICE OUTPATIENT VISIT 15 MINUTES 09/10/2020 12:00:00 AM EDT [facility] ([facility]) OFFICE OUTPATIENT VISIT 25 MINUTES 08/06/2020 12:00:00 AM EDT [facility] ([facility]) DUP-SCAN LXTR ART/ARTL BPGS UNI/LMTD STUDY 08/03/2020 12:00:00 AM EDT [facility] ([facility]) DUP-SCAN LXTR ART/ARTL BPGS UNI/LMTD STUDY 08/03/2020 12:00:00 AM EDT [facility] ([facility]) OFFICE OUTPATIENT VISIT 15 MINUTES 08/03/2020 12:00:00 AM EDT [facility] ([facility]) ECG ROUTINE ECG W/LEAST 12 LDS W/I&R 07/15/2020 12:00: 00 AM EST [facility] ([facility]) OFFICE OUTPATIENT VISIT 25 MINUTES 07/15/2020 12:00:00 AM EST [facility] ([facility]) OFFICE OUTPATIENT VISIT 25 MINUTES 06/17/2020 12:00:00 AM EST [facility] ([facility]) CARDIAC CATHETERIZATION <td>CARDIAC CATHETERIZATION</td><td>Routine</td><td>06/12/2020 1:07 PM EST</td><td> Abnormal result of other cardiovascular function study</td><td> </td> 06/12/2020 06:07:27 PM EST Abnormal result of other cardiovascular function study [facility] Abnormal result of other cardiovascular function study GLUC BLD GLUC MNTR DEV CLEARED FDA SPEC HOME USE <td>P OCT GLUCOSE</td><td>Routine</td><td>06/12/2020 10:34 AM EST</td><td></td><td> </td> 06/12/2020 03:34:00 PM EST [facility] PROTHROMBIN TIME <td>POCT INR</td><td>Routine </td><td>06/12/2020 10:33 AM EST</td><td></td><td> </td> 06/12/2020 03:33:00 PM EST [facility] ECG ROUTINE ECG W/LEAST 12 LDS TRCG ONLY W/O I&R <td>E CG 12- LEAD</td><td>Routine</td><td>06/12/2020 10:25 AM EST</td><td></td><td></td> 06/12/2020 03:25:30 PM EST [facility] Left Heart Cath W/Wo LV & Coronary Angiography 021 12:00:00 AM EST [facility] ([facility]) Interactive Complexity 06/02/2020 12:00:00 AM EST [facility] ([facility]) Psychiatric Diagnostic Evaluation 06/02/2020 12:00:00 AM EST [facility] ([facility]) OFFICE OUTPATIENT VISIT 15 MINUTES 05/21/2020 12:00:00 AM EST [facility] ([facility]) HOSPITAL DISCHARGE DAY MANAGEMENT 30 MIN/< 05/14/2020 12:00:00 AM EST [facility] ([facility]otomayor [facility]) [facility] HOSPITAL CARE/DAY 15 MINUTES 05/13/2020 12:00:00 AM EST [facility] ([facility]) [facility] HOSPITAL CARE/DAY 15 MINUTES 05/12/2020 12:00:00 AM EST [facility] ([facility]) [facility]PITAL CARE/DAY 15 MINUTES 05/11/2020 12:00:00 AM EST [facility] ([facility]) [facility] CARE/DAY 15 MINUTES 05/10/2020 12:00:00 AM EST [facility] ([facility]) [facility]PITAL CARE/DAY 15 MINUTES 05/09/2020 12:00:00 AM EST [facility] ([facility]) Computerized Tomography (CT Scan) of Head Computerized Tomography (CT Scan) of Head 05/09/2020 12:00:00 AM [facility] Introduction of Other Anti-infective int o Peripheral Vein, Percutaneous Approach Introduction of Other Anti-infective int o Peripheral Vein, Percutaneous Approach 05/09/2020 12:00:00 AM [facility] HOSPITAL CARE/DAY 15 MINUTES 05/08/2020 12:00:00 AM EST [facility] ([facility]ol[facility]ar Sotomayor MD) [facility]PITAL CARE/DAY 25 MINUTES 05/07/2020 12:00:00 AM EST [facility] ([facility] S[facility]ayor [facility]) INITIAL HOSPITAL CARE/DAY 50 MINUTES 05/06/2020 12:00: 00 AM EST [facility] ([facility] Sotomayor [facility]) MYOCARDIAL SPECT MULTIPLE STUDIES 04/09/2020 12:00:00 AM EST [facility] ([facility]) Computerized Tomography (CT Scan) of Chest and Abdomen Computerized Tomography (CT Scan) of Chest and Abdomen 03/25/2020 12:00:00 AM [facility] Capillary Blood Collection Finger, Heel, Ear Stick 03/10/2020 12:00:00 AM EST [facility] ([facility] FALLS RISK ASSESSMENT DOCUMENTED 03/09/2020 12:00:00 A M EST [facility] ([facility]) Capillary Blood Collection Finger, Heel, Ear Stick 02/04/2020 12:00:00 AM EDT [facility] ([facility] ) INTERROGATION EVAL IN PERSON 1/DUAL/PATIENT FINANCIAL SERVICES MANAGER LEAD PM 2019 12:00:00 AM EDT [facility] ([facility]) Results ID Date Data Source [id number] 01/12/2021 09:49:02 AM [facility]FORMATION[facility] MRN Name Date of Age Gend*PT [id number] Joy Dent 1940 80 years F IPPT Location Admission Date/Time Visit ID Attending [id number] 12/17/20 1158 --- --- EPI ID CSN Admitting Prov ider [id number] Toyin Lopez MD([id number])NAME: Joy Dent Skinny#: [id number] #: [id number] DATE: 12/18/2020 PT TYPE: C SHONDAT #: [id number] : 1940 SEX: femaleReferring Physician:Primary Care Physician: AKASH CM, MDDISCHARGE DATE: 12/18/2020URGEON: Toyin Lopez [facility]ORTSSISTANT: NonePREOPERATIVE DX:left lower extremity arterial atherosclerosis with lifelimiting claudication.POSTOPERATIVE DX:left lower extremity arterial atherosclerosis with lifelimiting claudication.PROCEDURE:1.right common femoral artery ultrasound-guided access.2. Aortogram.3. left lower extremity runoff.4. Closure of right common femoral artery using Mynx closure device.ANESTHESIA: Monitored sedation (Duration 45 minutes).COMPLICATIONS: None.SPECIMEN: None.ESTIMATED BLOOD LOSS: MinimalINDICATION: This is a 80 years year old female with a history of left lowerextremity arterial atherosclerosis with life limiti ng claudication and wasplanned for angiogram and possible endovascular intervention.DESCRIPTION OF PROCEDURE: After explaining the procedure to the patient andtaking written consent, the patient was taken to the endovascular suite.Patient was placed under conscious sedation using IV Versed and IV fentanyl.The right common femoral artery was accessed using 5-Japanese micropuncture kit,which was switched to a 5-Japanese sheath and Omni flush catheter was placed intothe aorta. Aortogram was performed, which showed patent distal aorta,patent bilateral common, internal, and external iliac artery. The catheter wasplaced up and over the bifurcation into the left common femoral artery. leftleg runoff was done, which showed patent common femoral, patent profunda femorisartery. The superficial femoral artery is diseased but patent. The poplitealartery is patent with a 2 -vessel runoff distally which is calcified anddiseased. Moderate pedal disease is present.A Mynx closure device was used to close the right groin arteriotomy. There wasnobleeding or hematoma present. Patient was stable throughout the procedure Muriel was present throughout.Toyin Lopez MD Name Value Range Interpretation Code Description Data Vivian rce(s) Supporting Document(s) ID Date Data Source [id number] 12/20/2020 08:26:05 AM [facility]T [facility] INFORMATIONPatient MRN Name Date of Age Gend*PT [id number] Joy Dent 1940 80 years F IPPT Location Admission Date/Time Visit ID Attending [id number] 12/17/20 1158 --- --- EPI ID CSN Admitting Prov ider [id number] Toyin Lopez MD([id number]) Attestation signed by Toyin Lopez MD at 12/20/2020 8:26 AMI saw and evaluated the patient and reviewed note. I agree with the history,physical and medical decision makingSignature: EDUARDO Huangate: December 20, 2020Time: 8:25 AM --Surgical Discharge Vinnie Carol DentMRN: [id number] date: 021Admitting Physician: EDUARDO Huangischarge date and time: Pt being discharged on December 19, 2020 to home.Discharge Physician: Greg Wood Diagnosis: PAD (peripheral artery disease) right great toe woundAdmission H&P:HPI:80 years White or female with a past medical history significantfor peripheral vascular disease, DM 2, CAD, hypertension, osteoarthritis, sleepapnea, hearing loss, prior CVA, CHF, pulmonaryhypertension, prostetic mitral valve, tricuspid repaired, pacemaker inplace, right carotid stenosis, on Coumadin presents with complaints of ongoingworsening pain, redness, and smell from the left great toe. Wound has been present for several months and in the past 1 to 2 weeks it hasdeveloped a foul smell. She has not recently been on antibiotics due to itsinteraction with Coumadin according to the patient. She previously underwentangio in September of this year with successful revascularization of the left lowerextremity at that time (SFA stenting). She reports that the foot had beenfeeling much better at that time, but now is again painful, burning, aching.She generally is able to ambulate with the assistance of a walker and the toecauses only mild difficulty with that. Arterial US 11/25 with common femoralartery stenosis 50 to 79%Prior vascular procedure history: Left common femoralartery & SFA 12/04/14, Left SFA angioplasty 01/07/17. Left superficialfemoral artery stent 12/17/18. Left SFA angioplasty 09/14/20." Hospital Course:Admitted to the vascular surgery service, started on a heparin drip. Betadinepainting to the left great toe. Started on Zosyn. The morning of 12/18 underwentangiogram, no obstruction found.Coumadin held, to resume on discharge. Peripheral vascular disease with left lower extremity pain, patent vessels foundon angiogram today, pain attributed to pedal disease, no interventionPlaced on heparin drip on admission, taken to the angio suite, no obstructivedisease found. Treated with IV Zosyn.Heparin drip discontinued after angiogram. she reported improved pain in thefoot postprocedure, then intermittent overnight and the next day. Willdischarge with prescription for oxycodone to be used as needed for pain.+ Pulses on Doppler, mild edema/erythema of the foot.Continued on Plavix and aspirin Left great toe ulcerDischarged on Augmentin x2 weeks with follow up in local wound center.Painted with Betadine, provided with betadine to have daughter apply to thewound daily on discharge. May leave open to air or cover for comfort.CHF/hypertension/hyperlipidemia/CAD /history of ME/history of mitral valvereplacement/history of CVACoumadin on hold post procedure. Resume tonight. Will take 1mg nightly untilfollow up INR Monday. Monitor closely while on abx.INR 2.47 today after held 3 days.Home meds ordered:Carvedilol, Diovan, atorvastatin FT0Caiizpi of asymptomatic hypoglycemia 12/18. Glucose 180 at the time of admissionafter receiving lantus 10U at bedtime. Tolerating a diet, feeling well.Resume home meds. Normally takes toujeo 45 u bid.A1c 9.3. Needs close f/u with PCP on d/c CKDCreatinine 1.43, at baseline. 1.65 on admission. Chronic anemiaContinue home ironStable Pulmonary hypertension/sleep apneaNo events on admission.HypothyroidismHome levothyroxine 100 mcg Case management to assist with follow up in wound care center near [place].F/u with Dr Lopez/ Calista in 1-2 months or as needed. Secondary Diagnoses:Active Hospital Problems Diagnosis Date Noted Pulmonary hypertension 01/06/2017 ambulatory care current use of anticoagulant coumadin Urinary incontinence Hypothyroidism Chronic kidney disease renal calculi Acute on chronic systolic congestive heart failure 11/09/2016 Mitral regurgitation 04/09/2015 PAD (peripheral artery disease) Coronary artery disease Hypertension, essential Diabetes mellitus Type 2, insulin requiring Sleep apnea Osteoarthritis Hearing loss Stroke Coronary artery disease involving point hope ira heart without angina vqmfxpeh63/17/2015Resolved Hospital ProblemsNo resolved problems to display.Discharge Medications:Your medication listSTART taking these medications Instructions Last Dose Given Morning Afternoon Evening Bedtime As Neededamoxicillin-clavulanate 875-125 MG per tabletCommonly known as: AUGMENTIN Take 1 tablet by mouth 2 (two) times a day for 10 daysoxyCODONE 5 MG immediate release tabletCommonly known as: ROXICODONE Take 1 tablet (5 mg total) by mouth every 4 (four) hours as needed Max DailyAmount: 30 mgCONTINUE taking these medications Instructions Last Dose Given Morning Afternoon Evening Bedtime As Neededacetaminophen 325 MG tabletCommonly known as: TYLENOL Take 650 mg by mouth every 6 (six) hours as needed for painalbuterol (2.5 MG/3ML) 0.083% nebulizer solutionCommonly known as: PROVENTIL Take 2.5 mg by nebulization every 6 (six) hours as needed for shortness ofbreathallopurinol 100 MG tabletCommonly known as: ZYLOPRIM Take 100 mg by mouth 2 (two) times a dayascorbic acid 500 MG tabletCommonly known as: VITAMIN C Take 500 mg by mouth dailyaspirin EC 81 MG EC tablet Take 81 mg by mouth dailyatorvastatin 80 MG tabletCommonly known as: LIPITOR Take 80 mg by mouth dailybimatoprost 0.01 % SolnCommonly known as: LUMIGAN Administer 1 drop to both eyes nightlybumetanide 1 MG tabletCommonly known as: BUMEX Take 1 mg by mouth 2 (two) times a daybusPIRone 7.5 MG tabletCommonly known as: BUSPAR Take 7.5 mg by mouth 2 (two) times a daycalcitriol 0.25 MCG capsuleCommonly known as: ROCALTROL Take 0.25 mcg by mouth dailycalcium-vitamin D 500-400 MG-UNIT per tabletCommonly known as: OSCAL- 500 Take 1 tablet by mouth 2 (two) times a daycarvedilol 6.25 MG tabletCommonly known as: COREG Take 6.25 mg by mouth once dailycholecalciferol 25 MCG (1000 UT) capsuleCommonly known as: VITAMIN D3 Take 2,000 Units by mouth dailyclopidogrel 75 MG tabletCommonly known as: PLAVIX Take 75 mg by mouth dailyCoQ-10 100 MG Caps Take 1 mg by mouth dailyferrous gluconate 324 MG tabletCommonly known as: FERGON Take 324 mg by mouth 2 (two) times a daylevothyroxine 100 MCG tabletCommonly known as: SYNTHROID, LEVOTHROID Take 100 mcg by mouth dailynitroglycerin 0.4 MG SL tabletCommonly known as: NITROSTAT Place 0.4 mg under the tongue every 5 (five) minutes as needed for chest painomeprazole 20 MG capsuleCommonly known as: PriLOSEC Take 20 mg by mouth dailypotassium chloride SA 10 MEQ tabletCommonly known as: K-DUR,KLOR-CON Take 10 mEq by mouth 2 (two) times a daypregabalin 75 MG capsuleCommonly known as: LYRICA Take 75 mg by mouth 2 (two) times a dayTOUJEO SOLOSTAR SC Inject 45 Units under the skin nightlyTradjenta 5 MG TabsGeneric drug: linaGLIPtin Take 5 mg by mouth dailyvalsartan 40 MG tabletCommonly known as: DIOVAN Take 40 mg by mouth dailywarfarin 1 MG tabletCommonly known as: COUMADIN Take 1 mg by mouth 2 (two) times a week With 3 mg on Monday and warfarin 3 MG tabletCommonly known as: COUMADIN Take 3 mg by mouth 5 (five) times a week 5 times weekly on Monday, Monday,Monday, Monday, and MondayWhere to Get Your MedicationsThese medications were sent to [facility] [address] [place] [phone] amoxicillin-clavulanate 875-125 MG per tablet oxyCODONE 5 MG immediate release tabletPast Medical History:Past Medical History:Diagnosis Date BMI 40.0-44.9, adult CHF (congestive heart failure) acute on chronic left and right systolic and diastolic CHF Chronic kidney disease renal calculi CKD (chronic kidney disease) stage 3, GFR 30-59 ml/min Claudication Coronary artery disease Diabetes mellitus Type 2, 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 History of rheumatic fever Hypertension Hypothyroidism on replacement retirement current use of anticoagulant coumadin Osteoarthritis PAD (peripheral artery disease) Peripheral vascular disease Pulmonary hypertension 01/06/2017 Sciatica Sleep apnea does not tolerate CPAP Sleep apnea does not use CPAP Stroke residual left upper extrem weakness TIA (transient ischemic attack) Urinary incontinence Valvular disease Mitral stenosis, aortic stenosisSignificant Diagnostic Studies:IR VS Arteriogram Extremity Single LEFTThis exam is not reported by a radiologist and is not available in PACS.Please see Operative Reports in [facility] for reports on this exam.Labs:BMP:Lab ResultsComponent Value Date NA 142 12/19/2020 K 4.2 12/19/2020 CL 105 12/19/2020 CO2 35 (H) 12/19/2020 ANIONGAP 2 (L) 12/19/2020 CALCIUM 8.9 12/19/2020 GLU 96 12/19/2020 BUN 25 (H) 12/19/2020 CREATININE 1.43 (H) 12/19/2020 GFRAA 43 (L) 12/19/2020 GFRNONAA 35 (L) 12/19/2020BC Brief:Lab ResultsComponent Value Date WBC 7.2 12/19/2020 HGB 10.7 (L) 12/19/2020 HCT 32.1 (L) 12/19/2020 PLT 154 12/19/2020oags:Lab ResultsComponent Value Date PROTIME 24.6 (H) 12/19/2020 INR 2.47 12/19/2020 APTT 130.9 (HH) 12/18/2020ischarge Exam:Most Recent Vital SignsTemp: [96.6 F-99.7 F] 98 FHeart Rate: [60] 60Resp: [9-30] 15BP: (113-170)/(51-72) 132/69Physical Exam:General: WDWN 80 years White or female, comfortable eating in bedHead: NC/AT, without obvious deformity.Heart: RRR S1S2, without audible M/R/G.Lungs: CTAB without W/R/R or cough. Without increased inspiratory effort. Not onSPO2.Abdomen: Soft, NT, ND.Right groin dressing clean. No ecchymosis.Extremities:R: warm and well perfusedL: erythema of the great toe to the midfoot. 2 ulcerations on the great toepainted with betadine. Necrotic black tissue in the base, wet. Not tender.Normal sensory/motor.DP/PT bilaterallyNeuro: AAOx3, answers questions appropriatelyDischarged Condition:goodDisposition: Home or Self CareSignature: NAKIA Woodate: December 19, 2020Time: 7:51 AM Name Value Range Interpretation Code Description Data Vivian rce(s) Supporting Document(s) ID Date Data Source [id number] 12/19/2020 06:01:00 PM EDT [facility] ([facility]) Name Value Range Interpretation Code Description Data Vivian rce(s) Supporting Document(s) Laboratory test finding (navigational concept) 180 mg/dL 70-99 [facility] ([facility]) PERFORMED BY [facility]INICAL STAFF ID Date Data Source [id number] 12/19/2020 04:08:00 PM EDT [facility] ([facility]) Name Value Range Interpretation Code Description Data Viivan rce(s) Supporting Document(s) Prothrombin time (PT) in control Platelet poor plasma by Coagulation assay 24.6 s 9.20-11.90 [facility] ([facility]) INR in Platelet poor plasma by Coagulation assay 2.47 [facility] ([facility]) SUGGESTED THERAPEUTIC RANGES USING INR F OR STABILIZED ANTICOAGULATED PATIENTS: STANDARD DOSE THERAPY INR 2.0-3.0 DVT, PE, PREVENT DVT OR EMBOLISM HIGH DOSE THERAPY INR 2.5-3.5 PREVENT EMBOLISM FROM MECHANICAL HEART VALVE ID Date Data Source [id number] 12/19/2020 04:01:00 PM EDT [facility] ([facility]) Name Value Range Interpretation Code Description Data Vivian rce(s) Supporting Document(s) Sodium [Moles/volume] in Serum or Plasma 142 mmol/L 136-145 [facility] ([facility]) Potassium [Moles/volume] in Serum or Plasma 4.2 mmol/L 3.6-5.2 [facility] ([facility]) Chloride [Moles/volume] in Serum or Plasma 105 mmol/L 100-108 [facility] ([facility]) Urea nitrogen [Mass/volume] in Serum or Plasma 25 mg/dL 7-24 [facility] ([facility]) Anion gap in Serum or Plasma 2 mmol/L 7-16 [facility] ([facility]) Carbon dioxide, total [Moles/volume] in Serum or Plasma 35 mmol/L 22 -31 [facility] ([facility]) Creatinine [Mass/volume] in Serum or Plasma 1.43 mg/dL 0.60-1.00 [facility] ([facility]) Urea nitrogen/Creatinine [Mass Ratio] in Serum or Plasma 17.5 1 0.0-20.0 [facility] ([facility]) Calcium [Mass/volume] in Serum or Plasma 8.9 mg/dL 8.4-10.2 [facility] ([facility]) Glucose [Mass/volume] in Serum or Plasma 96 mg/dL 70-99 [facility] ([facility]) Glomerular filtration rate/1.73 sq M pre dicted among non-blacks [Volume Rate/Area] in Serum or Plasma by Creatinine-based formula (MDRD) 35 [facility] ([facility]) Glomerular filtration rate/1.73 sq M pre dicted among blacks [Volume Rate/Area] in Serum or Plasma by Creatinine-based formula (MDRD) 43 [facility] Glomerular filtration rate/1.73 sq M pre dicted among non-blacks [Volume Rate/Area] in Serum or Plasma by Creatinine-based formula (MDRD) Laboratory test result [facility] ([facility]) -- NORMAL KIDNEY FUNCTION OR MILD DISEASE - GFR >OR= 60 CHRONIC KIDNEY DISEASE - GFR 15 - 59 RENAL FAILURE - GFR <15 Est. GFR calculation based on the MDRD study equation, which assumes a steady state for creatinine. Est. GFR should not be used for medication dosing. ID Date Data Source [id number] 12/19/2020 03:29:00 PM EDT [facility]) Name Value Range Interpretation Code Description Data Vivian rce(s) Supporting Document(s) Leukocytes [#/volume] in Blood by Automated count 7.2 10*3/uL 4.10-11 .00 [facility] ([facility]) Erythrocytes [#/volume] in Blood by Automated count 3.52 10*6/uL 4.00 -5.40 [facility]) Hemoglobin [Mass/volume] in Blood 10.7 g/dL 12.0-16.0 [facility] ([facility]) Erythrocyte mean corpuscular hemoglobin [Entitic mass] by Automated count 30.5 pg 27.0-32.0 [facility] ([facility]) Erythrocyte mean corpuscular volume [Entitic volume] by Auto mated count 91.0 fL 80.0-95.0 [facility] ([facility] ) Hematocrit [Volume Fraction] of Blood by Automated count 32.1 % 3 6.00-47.00 [facility] ([facility]) Erythrocyte mean corpuscular hemoglobin concentration [Mass/volume] by Automated count 33.5 g/dL 32-36 [facility] ([facility]) Erythrocyte distribution width [Ratio] by Automated count 19.0 % 10.5-14.5 [facility] ([facility]) Platelet mean volume [Entitic volume] in Blood by Ann 9.6 fL 7.1-10.7 [facility] ([facility]) Platelets [#/volume] in Blood by Automated count 154 10*3/uL 150-450 [facility] ([facility]) ID Date Data Source [id number] 12/19/2020 02:02:28 PM EDT [facility] Name Value Range Interpretation Code Description Data Vivian rce(s) Supporting Document(s) POC NOVA GLU 180 mg/dL (70-99) H [facility] [place] PERFORMED BY [facility] CLINICAL STAFF ID Date Data Source [id number] 12/19/2020 09:48:23 AM EDT [facility] Name Value Range Interpretation Code Description Data Vivian rce(s) Supporting Document(s) POC NOVA GLU 95 mg/dL (70-99) [facility] [place] [facility]FOR[facility]IN[facility] STAFF ID Date Data Source [id number] 12/19/2020 12:09:01 PM EDT [facility] Name Value Range Interpretation Code Description Data Vivian rce(s) Supporting Document(s) PT 24.6 s (9.2-11.9) H [facility] INR 2.47 [facility] SUGGESTED THERAPEUTIC RANGES USING INR F ORSTABILIZED ANTICOAGULATED PATIENTS:STANDARD DOSE THERAPY INR 2.0-3.0 DVT, PE, PREVENT DVT OR EMBOLISMHIGH DOSE THERAPY INR 2.5-3.5 PREVENT EMBOLISM FROM MECHANICAL HEART VALVE ID Date Data Source [id number] 12/19/2020 12:01:40 PM EDT [facility] Name Value Range Interpretation Code Description Data Vivian rce(s) Supporting Document(s) SODIUM 142 mmol/L (136-145) [facility] POTASSIUM 4.2 mmol/L (3.6-5.2) [facility] CHLORIDE 105 mmol/L (100-108) [facility] CO2 35 mmol/L (22-31) H [facility] ANION GAP 2 mmol/L (7-16) L [facility] UREA NITROGEN 25 mg/dL (7-24) H [facility] CREATININE 1.43 mg/dL (0.60-1.00) H [facility] BUN/CREAT RATIO 17.5 RATIO (10.0-20.0) [facility] GLUCOSE 96 mg/dL (70-99) [facility] CALCIUM 8.9 mg/dL (8.4-10.2) [facility] GFR 35 ml/min/1.73m2 (>59) L [facility] GFR ( AMER) 43 ml/min/1.73m2 (>59) L [facility] GFR INTERPRETATION [facility] --NORMAL KIDNEY FUNCTION OR MILD DISEASE - GFR >OR= 60CHRONIC KIDNEY DISEASE - GFR 15 - 59RENAL FAILURE - GFR <15 Est. GFR calculation based on the MDRDstudy equation, which assumes a steadystate for creatinine. Est. GFR should notbe used for medication dosing. ID Date Data Source [id number] 12/19/2020 11:29:47 AM EDT [facility] Name Value Range Interpretation Code Description Data Vivian rce(s) Supporting Document(s) WBC 7.2 10*3/uL (4.1-11.0) [facility] [place] RBC 3.52 10*6/uL (4.00-5.40) L [facility] HGB 10.7 g/dL (12.0-16.0) L [facility] HCT 32.1 % (36.0-47.0) L [facility] MCV 91.0 fL (80.0-95.0) [facility] MCH 30.5 pg (27.0-32.0) [facility] MCHC 33.5 g/dL (32.0-36.0) [facility] RDW 19.0 % (10.5-14.5) H [facility] PLT 154 10*3/uL (150-450) [facility] MPV 9.6 fL (7.1-10.7) [facility] ID Date Data Source [id number] 12/18/2020 06:45:05 PM EDT [facility] Name Value Range Interpretation Code Description Data Vivian rce(s) Supporting Document(s) POC NOVA GLU 138 mg/dL (70-99) H [facility] [place] PERFORMED BY [facility]INICAL STAFF ID Date Data Source [id number] 12/18/2020 04:14:32 PM EDT [facility] Name Value Range Interpretation Code Description Data Vivian rce(s) Supporting Document(s) POC NOVA GLU 94 mg/dL (70-99) [facility] [place] PERFOR[facility]IN[facility] STAFF ID Date Data Source [id number] 12/18/2020 04:10:00 PM EDT [facility] ([facility]) Name Value Range Interpretation Code Description Data Vivian rce(s) Supporting Document(s) Patient Abo/Rh Laboratory test result [facility] ([facility]) Specimen Expiration Date Laboratory test result [facility] ([facility]) Antibody Screen Laboratory test result M [facility] ([facility]) Testing site Laboratory test result [facility] NT ([facility]) Blood bank comment Laboratory test result [facility] ([facility]) BLOOD TYPE CONFIRMED. ID Date Data Source [id number] 12/18/2020 03:31:00 PM EDT [facility] ([facility]) Name Value Range Interpretation Code Description Data Vivian rce(s) Supporting Document(s) aPTT in Platelet poor plasma by Coagulation assay 130.9 s 22.0-34.3 Above upper panic limits [facility] ([facility]) ALERTED CRITICAL RESULT TO ALERTED CRITI MILLIE RESULT TO ALONZO [id number] [place] D4 [id number] [id number] ID Date Data Source [id number] 12/18/2020 02:36:54 PM EDT [facility] Name Value Range Interpretation Code Description Data Vivian rce(s) Supporting Document(s) IR IS ARTERIOGRAM EXTREMITY SINGLE LEFT [facility] ID Date Data Source [id number] 12/18/2020 01:11:27 PM EDT [facility] Name Value Range Interpretation Code Description Data Vivian rce(s) Supporting Document(s) POC NOVA GLU 89 mg/dL (70-99) [facility] [place] [facility]IN[facility] STAFF ID Date Data Source [id number] 12/18/2020 01:10:57 PM EDT [facility] Name Value Range Interpretation Code Description Data Vivian rce(s) Supporting Document(s) POC NOVA GLU 72 mg/dL (70-99) [facility] [place] [facility] STAFF ID Date Data Source [id number] 12/18/2020 10:38:25 AM EDT [facility] Name Value Range Interpretation Code Description Data Vivian rce(s) Supporting Document(s) POC NOVA GLU 67 mg/dL (70-99) L [facility] [place] [facility]IN[facility] STAFF ID Date Data Source [id number] 12/18/2020 10:15:23 AM EDT [facility] Name Value Range Interpretation Code Description Data Vivian rce(s) Supporting Document(s) POC NOVA GLU 62 mg/dL (70-99) L [facility] [place] [facility] STAFF ID Date Data Source [id number] 12/18/2020 09:55:00 AM EDT [facility] Name Value Range Interpretation Code Description Data Vivian rce(s) Supporting Document(s) POC NOVA GLU 64 mg/dL (70-99) L [facility] [place] [facility] STAFF ID Date Data Source [id number] 12/18/2020 02:05:42 PM EDT [facility] Name Value Range Interpretation Code Description Data Vivian rce(s) Supporting Document(s) SODIUM 143 mmol/L (136-145) [facility] POTASSIUM 3.7 mmol/L (3.6-5.2) [facility] CHLORIDE 104 mmol/L (100-108) [facility] CO2 32 mmol/L (22-31) H [facility] ANION GAP 7 mmol/L (7-16) [facility] UREA NITROGEN 30 mg/dL (7-24) H [facility] CREATININE 1.37 mg/dL (0.60-1.00) H [facility] BUN/CREAT RATIO 21.9 RATIO (10.0-20.0) H [facility] GLUCOSE 36 mg/dL (70-99) L [facility] ALERTED CRITICAL RESULT HOLLIE([id number]) ON D.4([id number]) AT 1402 ON [id number] BY [id number] CALCIUM 8.6 mg/dL (8.4-10.2) [facility] GFR 37 ml/min/1.73m2 (>59) L [facility] GFR ( AMER) 45 ml/min/1.73m2 (>59) L [facility] GFR INTERPRETATION [facility] --NORMAL KIDNEY FUNCTION OR MILD DISEASE - GFR >OR= 60CHRONIC KIDNEY DISEASE - GFR 15 - 59RENAL FAILURE - GFR <15 Est. GFR calculation based on the MDRDstudy equation, which assumes a steadystate for creatinine. Est. GFR should notbe used for medication dosing. ID Date Data Source [id number] 12/18/2020 12:35:41 PM EDT [facility] Name Value Range Interpretation Code Description Data Vivian rce(s) Supporting Document(s) PT 25.4 s (9.2-11.9) H [facility] INR 2.55 [facility] SUGGESTED THERAPEUTIC RANGES USING INR F ORSTABILIZED ANTICOAGULATED PATIENTS:STANDARD DOSE THERAPY INR 2.0-3.0 DVT, PE, PREVENT DVT OR EMBOLISMHIGH DOSE THERAPY INR 2.5-3.5 PREVENT EMBOLISM FROM MECHANICAL HEART VALVE ID Date Data Source [id number] 12/18/2020 12:10:53 PM EDT Max Vogel SPEC EXP DATE 1PATI ENT ABO/Rh B POSITIVEANTIBODY SCREEN NEGATIVETESTING SITE PERFORMED AT [address] [place], [place] [address]BLOOD BANK COMMENT BLOOD TYPE CONFIRMED. Name Value Range Interpretation Code Description Data Vivian rce(s) Supporting Document(s) TYPE AND SCREEN [facility] ID Date Data Source [id number] 12/18/2020 12:03:29 PM EDT [facility] Name Value Range Interpretation Code Description Data Vivian rce(s) Supporting Document(s) APTT 130.9 s (22.0-34.3) H [facility] ALERTED CRITICAL RESULT TOALERTED CRITIC AL RESULT [place]NA [id number] ON D4 [id number] ID Date Data Source [id number] 12/18/2020 10:57:24 AM EDT [facility] Name Value Range Interpretation Code Description Data Vivian rce(s) Supporting Document(s) WBC 8.8 10*3/uL (4.1-11.0) [facility] [place] RBC 3.57 10*6/uL (4.00-5.40) L [facility] HGB 10.8 g/dL (12.0-16.0) L [facility] HCT 32.5 % (36.0-47.0) L [facility] MCV 91.1 fL (80.0-95.0) [facility] MCH 30.3 pg (27.0-32.0) [facility] MCHC 33.3 g/dL (32.0-36.0) [facility] RDW 18.7 % (10.5-14.5) H [facility] PLT 173 10*3/uL (150-450) [facility] MPV 9.7 fL (7.1-10.7) [facility] ID Date Data Source [id number] 12/17/2020 10:03:40 PM EDT [facility] Name Value Range Interpretation Code Description Data Vivian rce(s) Supporting Document(s) HEMOGLOBIN A1C @ 9.6 % (4.0-6.0) H [facility] Performed using Siemens [place] immuno[employer] y.Care must be taken when interpreting KuD0tokqgadc in patients with a hemoglobin variantor decreased erythrocyte lifespan. Values 5.7 - 6.4% suggest prediabetes.Values >=6.5% are diagnostic for diabetes.REFERENCE: DIABETES CARE 2018: 41(S13-S27).PERFORMED AT [address] [place] [address] 21717 EST AVERAGE GLUCOSE 229 mg/dL [facility] ID Date Data Source [id number] 12/17/2020 09:27:21 PM EDT [facility] Name Value Range Interpretation Code Description Data Vivian rce(s) Supporting Document(s) APTT 37.3 s (22.0-34.3) H Lab [facility] ID Date Data Source [id number] 12/17/2020 08:24:00 PM EDT [facility]) Name Value Range Interpretation Code Description Data Vivian rce(s) Supporting Document(s) Specimen Description Laboratory test result [facility] ([facility]) Influenza virus A Ab [Titer] in Serum by Complement fi xation Laboratory test result [facility] ([facility]) Respiratory syncytial virus Ab [Titer] in Serum by Com plement fixation Laboratory test result [facility] ([facility]) Influenza virus B Ab [Titer] in Serum by Complement fi xation Laboratory test result [facility] ([facility]) Laboratory comment [Text] in Report Narrative Laboratory test result [facility] ([facility]) SEE NOTE: THE U.S. FDA HAS MADE THIS CHARITO T AVAILABLE UNDER AN EMERGENCY USE AUTHORIZATION (EUA) FOR THE DETECTION AND/OR DIAGNOSIS OF THE VIRUS THAT CAUSES COVID-19. PERFORMED AT [address] [place] [address] Laboratory test finding (navigational concept) Laboratory test result [facility] ([facility]) THIS ASSAY AMPLIFIES AND DETECTS THE TAR GET RNA USING REAL-TIME PCR. TESTING PERFORMED ON [employer] NEGATIVE 2019_NCOV RT-PCR RESULTS DO NOT PRECLUDE 2019_NCOV INFECTION AND SHOULD NOT BE USED THE SOLE BASIS FOR PATIENT MANAGEMENT DECISIONS. First Test Laboratory test result [facility] ([facility]) Employed In [facility] Laboratory test result [facility] ([facility]) Illness or injury onset date and time Laboratory test result [facility] ([facility]) Symptomatic Laboratory test result MEDEN T ([facility]) Icu Laboratory test result [facility] ([facility]) Hospitalized Laboratory test result [facility]E NT ([facility]) Laboratory test result [facility] ([facility]) Congregate Care Set Laboratory test result [facility] ([facility]) ID Date Data Source [id number] 12/17/2020 07:18:14 PM EDT [facility] NT INFORMATIONPatient MRN Name Date of Age Gend*PT [id number] Joy Dent 1940 80 years F IPPT Location Admission Date/Time Visit ID Attending [id number] 12/17/20 1158 --- Toyin Lopez MD([id number]) EPI ID CSN Admitting Provider [id number] Toyin Lopez MD([id number]) Attestation signed by Toyin Lopez MD at 12/17/2020 7:18 PMI saw and evaluated the patient and reviewed note. I agree with the history,physical and medical decision makingSignature: Toyin Lopez MDDate: December 17, 2020Time: 7:18 PM VASCULAR SURGERYADMISSION HISTORY AND PHYSICALJoy Carol DentMRN:[id number]: 1940Informant: The patient who is reliable as well as old medical recordsPrimary Care Provider: AKASH CM MDAttending: TEJAS HuangubjectiveCC: Left lower extremity ischemia with great toe gangreneHPI:80 years White or female with a past medical history significantfor peripheral vascular disease, DM 2, CAD, hypertension, osteoarthritis, sleepapnea, hearing loss, prior CVA, CHF, pulmonary hypertension, prostetic mitralvalve, tricuspid repaired, pacemaker in place, right carotid stenosis, onCoumadin presents with complaints of ongoing worsening pain, redness, and smellfrom the left great toe.Wound has been present for several months and in the past 1 to 2 weeks it hasdeveloped a foul smell. She has not recently been on antibiotics due to itsinteraction with Coumadin according to the patient. She previously underwentangio in September of this year with successful revascularization of the left lowerextremity at that time (SFA stenting). She reports that the foot had beenfeeling much better at that time, but now is again painful, burning, aching.She generally is able to ambulate with the assistance of a walker and the toecauses only mild difficulty with that.Arterial US 11/25 with common femoral artery stenosis 50 to 79%.Prior vascular procedure history: Left common femoral artery & SFA 12/04/14, LeftSFA angioplasty 01/07/17. Left superficialfemoral artery stent 12/17/18. Left SFA angioplasty 09/14/20.Last echo with ejection fraction of 33% in May per previous cardiologynotes. 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 History of rheumatic fever Hypertension Hypothyroidism on replacement ambulatory care current use of anticoagulant coumadin Osteoarthritis PAD (peripheral artery disease) Peripheral vascular disease Pulmonary hypertension 01/06/2017 Sciatica Sleep apnea does not tolerate CPAP Sleep apnea does not use CPAP Stroke residual left upper extrem weakness TIA (transient ischemic attack) Urinary incontinence Valvular disease Mitral stenosis, aortic stenosisPast Surgical History:Past Surgical History:Procedure Laterality Date ABDOMINAL SURGERY APPENDECTOMY CARDIAC CATHETERIZATION CARDIAC CATHETERIZATION N/A 08/08/2017 Procedure: Cardiac catheterization; Surgeon: Robbie Vallecillo MD; Laterality:N/A; CARDIAC CATHETERIZATION N/A 08/08/2017 Procedure: Angioplasty-coronary; Surgeon: Robbie Vallecillo MD; Laterality: N/A; CARDIAC CATHETERIZATION N/A 06/12/2020 Procedure: CATHETERIZATION, HEART, LEFT; Surgeon: Benjamin Evans MD;Laterality: N/A; CARDIAC PACEMAKER PLACEMENT CARDIAC VALVE SURGERY N/A 03/25/2015 Procedure: median sternotomy, REPLACE MITRAL VALVE #29mm mosaic, repairtricuspid valve, atrial septal defect closure, ROB; Surgeon: Elda Dinero MD; Location: [facility]; Service: Cardiac/ Open Heart; Laterality: N/A; cataract extractions 2003 and 2004 CHOLECYSTECTOMY CORONARY ANGIOPLASTY CORONARY STENT PLACEMENT CFX, RCA, LAD and PDA; most recent is PDA on EYE SURGERY cataract removaql with IOL's HYSTERECTOMY KIDNEY STONE SURGERY MULTIPLE TOOTH EXTRACTIONS full upper and lower dentures REFRACTIVE SURGERY TUBAL LIGATION VASCULAR SURGERY WISDOM TOOTH EXTRACTION [id number]:Medications Prior to AdmissionMedication Sig Dispense Refill Last Dose acetaminophen (TYLENOL) 325 MG tablet Take 650 mg by mouth every 6 (six) hoursas needed for pain albuterol (PROVENTIL) (2.5 MG/3ML) 0.083% nebulizer solution Take 2.5 mg bynebulization every 6 (six) hours as needed for shortness of breath allopurinol (ZYLOPRIM) 100 MG tablet Take 100 mg by mouth 2 (two) times a day ascorbic acid (VITAMIN C) 500 MG tablet Take 500 mg by mouth daily aspirin EC 81 MG EC tablet Take 81 mg by mouth daily atorvastatin (LIPITOR) 80 MG tablet Take 80 mg by mouth daily bimatoprost (LUMIGAN) 0.01 % SOLN Administer 1 drop to both eyes nightly calcitriol (ROCALTROL) 0.25 MCG capsule Take 0.25 mcg by mouth daily calcium-vitamin D (OSCAL-500) 500-400 MG-UNIT per tablet Take 1 tablet bymouth 2 (two) times a day carvedilol (COREG) 6.25 MG tablet Take 6.25 mg by mouth 2 (two) times a day cholecalciferol (VITAMIN D3) 1000 UNITS capsule Take 2,000 Units by mouthdaily clopidogrel (PLAVIX) 75 MG tablet Take 75 mg by mouth daily Coenzyme Q10 (COQ-10) 100 MG CAPS Take 1 mg by mouth daily ferrous gluconate (FERGON) 324 MG tablet Take 324 mg by mouth 2 (two) times aday Insulin Glargine (TOUZO SOLOSTAR SC) Inject 40 Units under the skin 2 (two)times a day levothyroxine (SYNTHROID, LEVOTHROID) 88 MCG tablet Take 100 mcg by mouthdaily Linagliptin (TRADJENTA) 5 MG TABS Take 5 mg by mouth daily nitroglycerin (NITROSTAT) 0.[address] 0.4 mg under the tongue every5 (five) minutes as needed for chest pain OMEPRAZOLE PO Take 20 mg by mouth daily potassium chloride SA (K-DUR,KLOR-CON) 10 MEQ tablet Take 10 mEq by mouth 2(two) times a day pregabalin (LYRICA) 75 MG capsule Take 75 mg by mouth 2 (two) times a day QUEtiapine (SEROQUEL) 25 MG tablet Take 25 mg by mouth nightly valsartan (DIOVAN) 80 MG tablet Take 40 mg by mouth daily warfarin (COUMADIN) 1 MG tablet Take 2 mg by mouth 2 times weekly on Mondayand Monday warfarin (COUMADIN) 1 MG tablet Take 3.5 mg by mouth 5 times weekly on Monday,Monday, Monday, , and MondayAllergies:Aloe, Penicillins, and Adhesive tapeFamily History:Family HistoryProblem Relation Age of Onset Breast cancer Mother Heart disease FatherSocial History:Social HistoryTobacco Use Smoking status: Never Smoker Smokeless tobacco: Never UsedVaping Use Vaping Use: Never usedSubstance Use Topics Alcohol use: No Drug use: NoReview of SystemsConstitutional: Denies fever, chills, night sweats and weight changes.HEENT: Denies visual changes, hearing limited, stableExtremities/Musculoskeletal: Intermittent back pain/sciaticaRespiratory: Denies cough, shortness of breath,wheezing, chronic cough or sputumproduction, no hemoptysis.Cardiovascular: Denies chest pain, pressure, tightness, heaviness discomfort andpalpitation.Gastrointestinal: Denies nausea, vomiting, abdominal pain, diarrhea,constipation or blood in stool or vomit.Genitourinary: Denies urinary urgency, frequency, odor and pain.Skin: Denies rashes or lesions other than the left toeNeurological: Denies dizziness, seizures, speech difficulty, weakness,light-headedness, numbness. Prior history of stroke/TIAEndocrine: She does have diabetes and hypothyroidismHematological: On Coumadin bleeds moderately easyPhysical ExamVital Signs: BP 124/54 (BP Location: Left upper arm, Patient Position: Sitting)| Temp 97.8 F (Oral) | Resp 16 | LMP (LMP Unknown) | SpO2 98%General Appearance: well appearing 80 years female who is in no acute distress,appears state age, pleasant and cooperative.Skin: Warm, dry, unremarkable.HEENT:Head: NC/AT.Eyes: PERRLA/EOMI. Sclerae anicteric, conjunctivae clear.Ears: Hearing is intact,external ears normal.Nose: Patent, without deviated septum.Mouth/Throat: Dentition is in good repair, oropharynx is without exudates orlesionsNeck: Supple without masses. Trachea is midline. Thyroid is not palpable, noJVD, no lymphadenopathy, No carotid bruits appreciated.Lungs: clear to auscultation, respiratory effort is good, no adventitious soundsHeart: regular rate and rhythm. Faint murmurAbdomen: Obese, non-tender, non distended, no masses, no organomegalyappreciated no pulsatile masses, positive bowel soundsPalpable femoral pulses bilaterally, no scarring in the groin, deep groincreases due to obesity. Did you get your epic set up in your phoneExtremities:Normal right lower extremity with normal sensation and motor function,well-perfused.Left lower extremity: There is edema in the foot, it is erythematous to themidfoot. Not significantly tender. 2 ulcerations on the great toe anterior andmedial 1.5 cm each. Black in the base very foul-smelling.Pulses:RLE: DP: Biphasic. PT: BiphasicLLE: DP: Biphasic. PT: BiphasicNeurological: Alert and oriented x 3, speech clear, cranial nerves II-XII aregrossly intact. Sensation is intact.Media InformationDocument InformationMisc Administration: Patient PhotoLeft foot12/17/2020 13:30Attached To:Hospital Encounter on 12/17/20SoBRETT Rollins [facility] Surgery UnitPhoto taken with patient's verbal consent.Imagining and other DiagnosticsDiagnostic tests reviewed:Lab ResultsComponent Value Date WBC 9.8 09/02/2017 HGB 14.0 09/02/2017 HCT 41.3 09/02/2017 PLT 127 (L) 09/02/2017 ALT 25 09/01/2017 AST 22 09/01/2017 NA 139 09/02/2017 K 4.3 09/02/2017 CL 96 (L) 09/02/2017 CREATININE 1.57 (H) 09/02/2017 BUN 35 (H) 09/02/2017 CO2 32 (H) 09/02/2017 INR 1.3 09/14/2020 HGBA1C 7.7 (H) US1. 50-75% left METAL BUILDINGS ASSEMBLER stenosis (204 cm/s).2. Areas of mildly increased velocities throughout the left SFA suggestive of<50% stenosis.3. Mildly increased velocities proximal popliteal artery suggestive of <50%stenosis.4. Runoff via DATA BASE ADMINISTRATOR and peroneal arteries. Anterior tibial artery visualized midcalf, but not distally.5. Areas of calcific shadowing and nonvisualization throughout the left lowerextremity.Assessment and PlanJoy Dent is a 80 years female who presents to the hospital today with left toegangrene.Active Problems: Coronary artery disease involving [place] heart without angina pectoris PAD (peripheral artery disease) Coronary artery disease Hypertension, essential Diabetes mellitus Osteoarthritis Sleep apnea Hearing loss Stroke Mitral regurgitation Acute on chronic systolic congestive heart failure retirement current use of anticoagulant Urinary incontinence Hypothyroidism Chronic kidney disease Pulmonary hypertensionPeripheral vascular disease with left lower extremity ischemia with worseningrest painUltrasound at last clinic visit in November indicates METAL BUILDINGS ASSEMBLER stenosis+ Pulses on Doppler, mild edema of the foot.Plan for left lower extremity angiogram tomorrow.N.p.o. after midnight, IV hydration to mitigate contrast burdenOn Plavix and aspirinPain control with Tylenol and oxycodoneLeft great toe ulcerPainted with Betadine and wrapped with dry gauzeZosynCHF/hypertension/hyperlipidemia/CAD /history of ME/history of mitral valvereplacement/history of CVACoumadin on hold. INR 2.38 todayHome meds ordered:Carvedilol, Diovan, khvxtduosqgjFV4Ldvhmwm over 200 on admission, on home insulinSliding scale insulin, Lantus with home meds on nfgrI9l in the morningCKDCreatinine 1.65 on admission, GFR 30BMP daily, monitor closely, avoid nephrotoxinsMild hyponatremia, will treat with normal saline IV 50 cc/h.Chronic anemiaContinue home ironStable, admission H&H 11.5/34.8Pulmonary hypertension/s leep apneaSupplemental oxygen as needed patient does not have home device with her.hypothyroidismHome levothyroxine 100 mcgDVT Prophylaxis: sub q heparin for DVT prophylaxis.Code Status: FullADOD: unknownPatient condition and plan of care discussed with Toyin Lopez MD and maria g. Further adjustments to the plan will come from him.Signature: BRETT Wood-CDepartment of Vascular SurgeryDate: December 17, 2020Time: 1:49 PM Name Value Range Interpretation Code Description Data Vivian rce(s) Supporting Document(s) ID Date Data Source [id number] 12/17/2020 03:10:00 PM EDT [facility] Name Value Range Interpretation Code Description Data Vivian rce(s) Supporting Document(s) SARS coronavirus 2 RNA [Presence] in Res piratory specimen by KIET with probe detection NOT DETECTED [facility] This lab was reported by [facility]. ID Date Data Source [id number] 12/17/2020 04:25:18 PM EDT [facility] Name Value Range Interpretation Code Description Data Vivian rce(s) Supporting Document(s) SPECIMEN DESCRIPTION [facility] INFLUENZA A (NEG) [facility] INFLUENZA B (NEG) [facility] RSV (NEG) [facility] COMMENT [facility] THE U.S. FDA HAS MADE THIS TEST AVAILABL EUNDER AN EMERGENCY USE AUTHORIZATION(EUA) FOR THE DETECTION AND/OR DIAGNOSISOF THE VIRUS THAT CAUSES COVID-19.PERFORMED AT [address] [place] [address] COVID19 RESULT (NDET) [facility] THIS ASSAY AMPLIFIES AND DETECTSTHE TARG ET RNA USING REAL-TIME PCR.TESTING PERFORMED ON [employer] GENEXPERTNEGATIVE 2019_NCOV RT-PCR RESULTS DONOT PRECLUDE 2019_NCOV INFECTION ANDSHOULD NOT BE USED THE SOLE BASISFOR PATIENT MANAGEMENT DECISIONS. FIRST TEST [facility] EMPLOYED IN THCARE [facility] SYMPTOMATIC [facility] DATE OF SYMPT ONSET [facility] HOSPITALIZED [facility] [place] [facility] CONGREGATE CARE SET [facility] ID Date Data Source [id number] 12/17/2020 03:05:45 PM EDT [facility] Name Value Range Interpretation Code Description Data Vivian rce(s) Supporting Document(s) EKG [facility] UIXKKs1sGvGIEwMbz6XjFxIrGYSaXG6otmp2U8R8iLKoZ1CmeBKcv1tmN8IqR0IyAOMwHLYHWW7BeMRd jb2 [file] 4/fvz3/eF//blue 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 clerk//pX//8L//63/+ViU518//zz//6r3/Sr1gS9/sD72tSx//lP//V2hKe2g+ff/cPw605 [file] EQV/BQF4ce8IKVqg+PsJxkBz8xLbjH/j2Zyr41qBxAe/thjzeiz1G3/H3tUmgOG6x8ID/brusher machine/9PNI1Dr [file] bmRvYmoKeHJlZgogICAgIDAgICAgMjQKMDAwMDAwMD DaMHE4OJTfFHGgDJuaAIDnRKC9DFX7ROWhHFDbGE6kFdKtPLAsUAB8SFQaDDVvAZKokqUVIMHoOZZiVV O7KVNzVRXySMFaCDguTCAfQONzYPOyUPG9KCC0YBRmVfXjNXBuEJSdLVEeHPUsMTBdanOZRIWoSNBoQF F8KYHvXVAwRXPfBJvpBFEvNXGdMUmeFSPiLCMkJB6a BeGwAJBjKTAeYFfkGYLfSMVnuoJUUFFhJTKqELOxBVAcWRYiDVDjUCfvKFOpTOMaOBDdWYHoTFZbFK8j QhCvOIJkYEE4APYfIDNwCRVlepCRLDPbIPLbBHs6RKSxTDNuHWXqNRrwSYLkGRQcHLS5AUWwIVRtCB2l AjZqEUZjKUC6DvJhLHVgLKByyxPRJOBuJSVnRDL4Wt KyNWDtDHFoKZzcESJqPVCgQMzeUFPtVQCeGY6fNyAjFLEaSGHuVGnbHRPqTVDuapWOIELfDVOwGOApLz NcHRXxIBPcXZojYQPrGAJ2Kab3FUEgQXMbCH4sXkJxMAEsVKR7PCvhBDNxLMCdllNRPAUjHTIkRPqiVX VkNCBeICIqZRbqORLwKTAjBZG8YQEmLDIpHV0dHpKc QMTfECFmIISuHyZ5CoTzAvRBrIGnlCwkaly7BMgwP7x2XDKaWZjkWW0wlfOyGMPuIgjaTg5wiES0MLRn AgsWJp8Jc6AvtzG3qqVsQzMsGAn9AirpHIUGNp== ID Date Data Source [id number] 12/17/2020 08:31:39 PM EDT [facility] Name Value Range Interpretation Code Description Data Vivian rce(s) Supporting Document(s) HEMOGLOBIN A1C @ 9.3 % (4.0-6.0) H [facility] Performed using [employer] [employer] y.Care must be taken when interpreting YyU3ivjtmvsc in patients with a hemoglobin variantor decreased erythrocyte lifespan. Values 5.7 - 6.4% suggest prediabetes.Values >=6.5% are diagnostic for diabetes.REFERENCE: DIABETES CARE 2018: 41(S13-S27).PERFORMED AT [address] [place] [address] EST AVERAGE GLUCOSE 220 mg/dL [facility] ID Date Data Source [id number] 12/17/2020 02:40:26 PM EDT [facility] Name Value Range Interpretation Code Description Data [facility] [place](s) Supporting Document(s) SODIUM 135 mmol/L (136-145) L [facility] POTASSIUM 4.9 mmol/L (3.6-5.2) [facility] CHLORIDE 96 mmol/L (100-108) L [facility] CO2 36 mmol/L (22-31) H [facility] ANION GAP 3 mmol/L (7-16) L [facility] UREA NITROGEN 36 mg/dL (7-24) H [facility] CREATININE 1.65 mg/dL (0.60-1.00) H [facility] BUN/CREAT RATIO 21.8 RATIO (10.0-20.0) H [facility] GLUCOSE 216 mg/dL (70-99) H [facility] CALCIUM 8.9 mg/dL (8.4-10.2) [facility] GFR 30 ml/min/1.73m2 (>59) L [facility] GFR ( AMER) 36 ml/min/1.73m2 (>59) L [facility] GFR INTERPRETATION [facility] --NORMAL KIDNEY FUNCTION OR MILD DISEASE - GFR >OR= 60CHRONIC KIDNEY DISEASE - GFR 15 - 59RENAL FAILURE - GFR <15 Est. GFR calculation based on the MDRDstudy equation, which assumes a steadystate for creatinine. Est. GFR should notbe used for medication dosing. ID Date Data Source [id number] 12/17/2020 02:16:38 PM EDT [facility] Name Value Range Interpretation Code Description Data Vivian rce(s) Supporting Document(s) APTT 37.8 s (22.0-34.3) H [facility] ID Date Data Source [id number] 12/17/2020 02:16:38 PM EDT [facility] Name Value Range Interpretation Code Description Data Vivian rce(s) Supporting Document(s) PT 23.8 s (9.2-11.9) H [facility] INR 2.38 [facility] SUGGESTED THERAPEUTIC RANGES USING INR F ORSTABILIZED ANTICOAGULATED PATIENTS:STANDARD DOSE THERAPY INR 2.0-3.0 DVT, PE, PREVENT DVT OR EMBOLISMHIGH DOSE THERAPY INR 2.5-3.5 PREVENT EMBOLISM FROM MECHANICAL HEART VALVE ID Date Data Source [id number] 12/17/2020 02:07:30 PM EDT [facility] Name Value Range Interpretation Code Description Data Vivian rce(s) Supporting Document(s) WBC 8.6 10*3/uL (4.1-11.0) [facility] [place] RBC 3.85 10*6/uL (4.00-5.40) L [facility] HGB 11.5 g/dL (12.0-16.0) L [facility] HCT 34.8 % (36.0-47.0) L [facility] MCV 90.5 fL (80.0-95.0) [facility] MCH 30.0 pg (27.0-32.0) [facility] MCHC 33.1 g/dL (32.0-36.0) [facility] RDW 18.6 % (10.5-14.5) H [facility] PLT 179 10*3/uL (150-450) [facility] MPV 9.4 fL (7.1-10.7) [facility] ID Date Data Source [id number] 12/11/2020 10:47:00 AM EDT [facility] ([facility]) Name Value Range Interpretation Code Description Data Vivian rce(s) Supporting Document(s) Laboratory test finding (navigational concept) Laboratory test result [facility] ([facility]) Sent to DR.K Cm(he follows her Coumadi n) Sodium 139 meq/L 134-153 [facility]) Sent to DR.K Cm(he follows her Coumadi n) Potassium 4.4 meq/L 3.6-5.0 [facility]) Sent to DR.K Cm(he follows her Coumadi n) Glucose 226 mg/dL 70-99 [facility] ([facility]) Sent to DR.K Cm(he follows her Coumadi n) Chloride 95 meq/L 98-107 [facility]) Sent to DR.K Cm(he follows her Coumadi n) Co2 34 meq/L 22-30 [facility]) Sent to DR.K Cm(he follows her Coumadi n) BUN 31 mg/dL 7-21 [facility] ([facility]) Sent to DR.K Cm(he follows her Coumadi n) Creatinine 1.5 mg/dL 0.7-1.5 [facility] ([facility]) Sent to DR.K Cm(he follows her Coumadi n) Calcium 9.2 mg/dL 8.4-10.2 [facility] ([facility] Sent to DR.K Cm(he follows her Coumadi n) BUN/Creat 21 8-27 [facility] ([facility]) Sent to DR.K Cm(he follows her Coumadi n) Anion Gap 10.0 mmol/L 8.0-16.0 [facility] ([facility]) Sent to DR.K Cm(he follows her Coumadi n) Laboratory test finding (navigational concept) Laboratory test result [facility] ([facility]) Sent to DR.K Cm(he follows her Coumadi n) Laboratory test finding (navigational concept) 80 yrs [facility] ([facility]) Sent to DR.K Cm(he follows her Coumadi n) Laboratory test finding (navigational concept) 36 mL/min [facility] ([facility]) Sent to DR.K Cm(he follows her Coumadi n) ID Date Data Source [id number] 12/11/2020 10:47:00 AM EDT [facility] ([facility]) Name Value Range Interpretation Code Description Data Vivian rce(s) Supporting Document(s) Laboratory test finding (navigational concept) Laboratory test result [facility] ([facility]) Sent to DR.K Cm(he follows her Coumadi n) WBC 8.1 10^3/uL 4.2-11.0 [facility] ([facility]) Sent to DR.K Cm(he follows her Coumadi n) Hemoglobin 11.1 g/dL 12.0-16.0 [facility] ([facility]) Sent to DR.K Cm(he follows her Coumadi n) Hematocrit 33.6 % 37.0-47.0 [facility] ([facility]) Sent to DR.K Cm(he follows her Coumadi n) RBC 3.62 10^6/uL 4.20-5.40 [facility] ([facility]) Sent to DR.K Cm(he follows her Coumadi n) MCV 92.8 fL 81.0-101 [facility] ([facility]) Sent to DR.K Cm(he follows her Coumadi n) MCH 30.7 pg 27.0-34.0 [facility] ([facility]) Sent to DR.K Cm(he follows her Coumadi n) MCHC 33.0 g/dL 31.0-36.0 [facility] ([facility]) Sent to DR.K Cm(he follows her Coumadi n) Platelets 175 10^3/uL 150-450 [facility] ([facility]) Sent to DR.K Cm(he follows her Coumadi n) RDW 17.7 % 11.5-14.5 [facility] ([facility] Sent to DR.K Cm(he follows her Coumadi n) Neut 69.3 % 37.0-80.0 [facility] ([facility]) Sent to DR.K Cm(he follows her Coumadi n) MPV 11.7 fL 7.4-10.4 [facility] ([facility]) Sent to DR.K Cm(he follows her Coumadi n) Lymph 15.9 % 25.0-40.0 [facility] ([facility] Sent to DR.K Cm(he follows her Coumadi n) Mcnairy 10.5 % 3.0-8.0 [facility] ([facility] Sent to DR.K Cm(he follows her Coumadi n) Eos 3.6 % 0.0-7.0 [facility] ([facility] Sent to DR.K Cm(he follows her Coumadi n) Laboratory test finding (navigational concept) 0.0 % 0.0-0.0 [facility] ([facility]) Sent to DR.K Cm(he follows her Coumadi n) Baso 0.5 % 0.0-2.5 [facility] ([facility] Sent to DR.K Cm(he follows her Coumadi n) Laboratory test finding (navigational concept) 0.2 % 0.0-0.0 [facility] ([facility]) Sent to DR.K Cm(he follows her Coumadi n) Laboratory test finding (navigational concept) 5.62 10^3/uL 2.00-6.90 [facility] ([facility]) Sent to DR.K Cm(he follows her Coumadi n) Laboratory test finding (navigational concept) 1.29 10^3/uL 0.60-3.40 [facility] ([facility]) Sent to DR.K Cm(he follows her Coumadi n) Laboratory test finding (navigational concept) 0.29 10^3/uL 0.00-0.70 [facility] ([facility]) Sent to DR.K Cm(he follows her Coumadi n) Laboratory test finding (navigational concept) 0.04 10^3/uL 0.00-0.20 [facility] ([facility] Sent to DR.K Cm(he follows her Coumadi n) Laboratory test finding (navigational concept) 0.85 10^3/uL 0.00-0.90 [facility] ([facility] Sent to DR.K Cm(he follows her Coumadi n) Laboratory test finding (navigational concept) 0.02 10^3/uL 0.00-0.10 [facility] ([facility]) Sent to DR.K Cm(he follows her Coumadi n) Laboratory test finding (navigational concept) 0.00 10^3/uL 0.00-0.00 [facility] ([facility]) Sent to DR.K Cm(he follows her Coumadi n) Manual Diff Laboratory test result [facility] ([facility]) Sent to DR.K Cm(he follows her Coumadi n) Laboratory test finding (navigational concept) Laboratory test result [facility] ([facility]) Sent to DR.K Cm(he follows her Coumadi n) ID Date Data Source [id number] 12/11/2020 10:47:00 AM EDT [facility] ([facility]) Name Value Range Interpretation Code Description Data Vivian rce(s) Supporting Document(s) Protime 29.8 s 11.0-15.5 [facility] ([facility]) Sent to DR.K Cm(he follows her Coumadi n) Inr 2.79 0.93-1.23 [facility] ([facility] Sent to DR.K Cm(he follows her Coumadi n) PTT 49.2 s 24.8-36.7 [facility] ([facility]) Sent to DR.K Cm(he follows her Coumadi n) ID Date Data Source [id number] 12/11/2020 11:31:00 AM EDT [facility] Name Value Range Interpretation Code Description Data Vivian rce(s) Supporting Document(s) BASIC METABOLIC PANEL [facility] BASIC METABOLIC PANEL Sodium [Moles/volume] in Serum or Plasma 139 mEq/L 134 - 153 [facility] Potassium [Moles/volume] in Serum or Plasma 4.4 mEq/L 3.6 - 5.0 [facility] Chloride [Moles/volume] in Serum or Plasma 95 mEq/L 98 - 107 L [facility] Carbon dioxide, total [Moles/volume] in Serum or Plasma 34 MEQ/L 22 - 30 H [facility] Glucose [Mass/volume] in Serum or Plasma 226 MG/DL 70 - 99 H [facility] BUN 31 MG/DL 7 - 21 [facility] Creatinine [Mass/volume] in Serum or Plasma 1.5 MG/DL 0.7 - 1.5 [facility] BUN/CREAT 21 8 - 27 [facility] Calcium [Mass/volume] in Serum or Plasma 9.2 MG/DL 8.4 - 10.2 [facility] Anion gap 3 in Serum or Plasma 10.0 mmol/L 8.0 - 16.0 [facility] AGE 80 yrs [facility] AFR AMER GFR >60 [facility] NON-AA GFR 36 mL/min [facility] Male GFR Inter prentation 20-49 yrs >60 mL/min Normal 50-59 yrs >56 mL/min Normal 60-69 yrs >49 mL/min Normal 70-79yrs >42 mL/min Normal 80 and above >35 mL/min Normal Female GFR Interpretation 20-39 yrs >60 mL/min Normal 40-49 yrs >58 mL/min Normal 50-59 yrs >51 mL/min Normal 60-69 yrs >45 mL/min Normal 70-79 yrs >39 mL/min Normal 80 and above >32 mL/min Normal ID Date Data Source [id number] 12/11/2020 11:09:00 AM EDT [facility] Name Value Range Interpretation Code Description Data Vivian rce(s) Supporting Document(s) CBC W/AUTOMATED DIFF [facility] COMPLETE BLOOD COUNT Leukocytes [#/volume] in Blood by Automated count 8.1 10^3/uL 4.2 - 1 1.0 [facility] Erythrocytes [#/volume] in Blood by Automated count 3.62 10^6/uL 4. 20 - 5.40 L [facility] Hemoglobin [Mass/volume] in Blood 11.1 g/dL 12.0 - 16.0 L [facility] Hematocrit [Volume Fraction] of Blood by Automated count 33.6 % 3 7.0 - 47.0 L [facility] Erythrocyte mean corpuscular volume [Entitic volume] by Auto mated count 92.8 fL 81.0 - 101 [facility] Erythrocyte mean corpuscular hemoglobin [Entitic mass] by Automated count 30.7 pg 27.0 - 34.0 [facility] Erythrocyte mean corpuscular hemoglobin concentration [Mass/volume] by Automated count 33.0 g/dL 31.0 - 36.0 [facility] Erythrocyte distribution width [Ratio] by Automated count 17.7 % 11.5 - 14.5 H [facility] Platelets [#/volume] in Blood by Automated count 175 10^3/uL 150 - 45 0 [facility] Platelet mean volume [Entitic volume] in Blood by Automated count 11.7 fL 7.4 - 10.4 H [facility] Neutrophils/100 leukocytes in Blood by Automated count 69.3 % 37. 0 - 80.0 [facility] Lymphocytes/100 leukocytes in Blood by Manual count 15.9 % 25.0 - 40.0 L [facility] Monocytes/100 leukocytes in Blood by Automated count 10.5 % 3.0 - 8.0 H [facility] Eosinophils/100 leukocytes in Blood by Automated count 3.6 % 0.0 - 7.0 [facility] Basophils/100 leukocytes in Blood by Automated count 0.5 % 0.0 - 2.5 [facility] %IG 0.2 % 0.0 - 0.0 [facility] %NRBC 0.0 % 0.0 - 0.0 [facility] Neutrophils [#/volume] in Blood by Automated count 5.62 10^3/uL 2.00 - 6.90 [facility] Lymphocytes [#/volume] in Blood by Automated count 1.29 10^3/uL 0.60 - 3.40 [facility] Monocytes [#/volume] in Blood by Automated count 0.85 10^3/uL 0.00 - 0.90 [facility] Eosinophils [#/volume] in Blood by Automated count 0.29 10^3/uL 0.00 - 0.70 [facility] Basophils [#/volume] in Blood by Automated count 0.04 10^3/uL 0.00 - 0.20 [facility] #IG 0.02 10^3/uL 0.00 - 0.10 [facility] #NRBC 0.00 10^3/uL 0.00 - 0.00 [facility] MANUAL DIFF NOT INDICATED [facility] RBC MORPH NOT INDICATED [facility] spital ID Date Data Source [id number] 12/11/2020 11:18:00 AM EDT [facility] Name Value Range Interpretation Code Description Data Vivian rce(s) Supporting Document(s) Prothrombin time (PT) 29.8 SECONDS 11.0 - 15.5 H [facility] INR in Platelet poor plasma by Coagulation assay 2.79 0.93 - 1. 23 H [facility] aPTT in Blood by Coagulation assay 49.2 SECONDS 24.8 - 36.7 H [facility] \\BLDo\\INR INTERPRETATION\\BLDx\\ Therapeutic range for Coumadin and related oral anticoagulants. - International Normalized Ratio (INR): 2.0 - 3.0 for Venous Thrombosis, Pulmonary Embolus, Tissue heart valves, Acute ME Atrial Fibrillation, Valvular heart disease and recurrent Systemic Embolism. - International Normalized Ratio (INR): 2.5 - 3.5 for Mechanical Prosthetic valve. ID Date Data Source [id number] 11/27/2020 12:00:00 PM EDT [facility] ([facility] Deepak PER DIEM INTERPRETER) Name Value Range Interpretation Code Description Data Vivian rce(s) Supporting Document(s) TP Reflex HPV ASCUS Laboratory test result [facility] ([facility] PER DIEM INTERPRETER) SPECIMEN PART------ A. Cervical, Endocervical, ThinPrep Pap (Purchasing Supervisor) CYTOLOGY HX-------- Other Information: Post-menopausal FINAL DIAGNOSIS---- INTERPRETATION: Negative for Intraepithelial Lesion or Malignancy. SPECIMEN ADEQUACY:Satisfactory for evaluation. Endocervical/transformation zone component present. ADDITIONAL FINDINGS:Fungal organisms consistent with Mirian spp. TP Reflex HPV ASCUS Laboratory test result [facility] ([facility] Woman PER DIEM INTERPRETER) ID Date Data Source [id number] 10/12/2020 09:42:00 [place] [address] PROGRESS NOTENAME: ANNA Medina ROOM#: [id number] OF : 1940 MR#: [id number] DATE: 10/09/20 OF SERVICE: 10/12/2020UBJECTIVE:Patient has known congestive heart failure. Dyspnea has improved. Denies any chest pain. Orthopneahas improved. She is quite deconditioned. ROS: Does not notice any dizziness, syncope, diplopia,headache. No orthopnea or paroxysmal nocturnal dyspnea. No chills or fever. No cough or hemoptysis.No bowel disturbance. No ankle edema.OBJECTIVE:On exam, moderately built. Blood pressure 130/80. Head is normal. Heart regular sinus rhythm. Noedema of the leg.LABORATORY DATA:Blood test was done. Sodium 140, potassium 4, BUN 24, creatinine 1.3, hemoglobin 11.7. Iron was 31.ASSESSMENT/PLAN:The patient has the following issues:1. Congestive heart failure. Patient is on Lasix 40 mg bid IV.2. Her iron is low, last hemoglobin was 11.7. We will give IV Venofer to improve that.3. PT/OT is being done. Once she is ambulating, we will do discharge planning.DD: Bolivar Sotomayor MD, 10/12/20 09:06DT: [facility] 10/12/20 09:42DS: Bolivar Sotomayor MD, PC 10/26/20 08:33 1 Name Value Range Interpretation Code Description Data Vivian rce(s) Supporting Document(s) ID Date Data Source [id number] 10/13/2020 02:15:00 [place] [address] DISCHARGE SUMMARYNAME: ANNA Medina ROOM#: [id number] OF : 1940 MR#: [id number] PHYS: Bolivar Sotomayor MD, PC DATE: 10/09/20 DISCHARGED: 10/13/20HISTORY OF PRESENT ILLNESS:This is an 80-year-old white female who presented with dyspnea, orthopnea, marked fatigue, anddizziness. This patient had been for one week short of breath. She could hardly walk. She hadorthopnea and paroxysmal nocturnal dyspnea. She had some ankle edema. She has known peripheralvascular disease and goes to Dr. Grigsby. She also had a small ulcer on the left big toe. On my exam,blood pressure was 150/80. Head was normal. Heart rate was 70. Lungs had rales at the bases. Neckveins were d istended. Admission impression was congestive heart failure, systolic, history of mitralvalve prosthesis, diabetes, hypertension.LABORATORY STUDIES:Lab tests showed that the EKG showed paced rhythm. CAT scan of the chest was negative for PE, butsmall bilateral pleural effusions were noted. Troponin was normal. INR 2.54, hemoglobin 12.7, [id number], potassium 4.2, BUN 26, creatinine 1.4. Repeat INR was 2.69. On 10/13, sodium 139, potassium4.4, BUN 26, creatinine 1.2, mag level 2.2, INR 1.64.COURSE DURING HOSPITALIZATION:Patient was put on Telemetry monitoring. Was given Coreg 6.25 bid, Entresto 25 bid. Patient wasmaintained on Lasix drip on 10 mg/hour IV. She diuresed very well and lost 5 pounds of weight.Lungs became clear. She was treated with beta-lily, Entresto, diuretic, JASMIN inhibitors. On 10/13,she was discharged stable to follow in the office.DISCHARGE MEDICATIONS:1. Albuterol inhaler with handheld nebulized treatment.2. Allopurinol 100 mg bid.3. Ascorbic acid 500 mg daily.4. Aspirin 81 mg daily.5. Lipitor 80 mg daily.6. Bumex 1 mg bid.7. Plavix 75 mg daily.8. Coreg 6.25 mg bid.9. Synthroid 100 mcg daily.10. Lyrica 75 mg daily.11. Prilosec 20 mg daily.12. Potassium daily.13. Seroquel 25 mg at bedtime.14. Toujeo insulin 40 units daily.15. Tradjenta 5 mg daily.16. Valsartan 40 mg daily. 1 [place] [address] DISCHARGE SUMMARYNAME: ANNA Medina ROOM#: [id number] OF : 1940 MR#: [id number] PHYS: Bolivar Sotomayor MD, DATE: 10/09/20 DISCHARGED: 10/13/20 17. Warfarin 1 mg Monday, Monday, Monday. 18. Warfarin 3 mg Monday, Monday, , Monday. 19. Buspirone 7.5 mg bid.DISCHARGE PLAN:Follow up in two weeks by primary physician.FINAL DIAGNOSES:1. CONGESTIVE HEART FAILURE, SYSTOLIC, EJECTION FRACTION 30-40%.2. 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 HISTORY OF DIABETES.4. HISTORY OF HYPERTENSION.5. HISTORY OF CORONARY ARTERY DISEASE.6. HISTORY OF PERIPHERAL ARTERY DISEASE.7. 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 HISTORY OF HYPERLIPIDEMIA.DD: Bolivar Sotomayor MD, 10/13/20 12:25DT: [facility] 10/13/20 14:15DS: Bolivar Sotomayor MD, PC 10/26/20 08:33 2 Name Value Range Interpretation Code Description Data Vivian rce(s) Supporting Document(s) ID Date Data Source [id number] 10/19/2020 11:42:00 [place] [address] PHONE: [phone] FAX: [phone] Name .................. : ANNA Medina Acct Number.................. : [id number] ROOM. ................. : 107-1 MR Number ................... : [id number] Stay type ............. : I/P Discharge Date......... ... : Admit Date ......... : 10/09/20 Admit Phys .................... : MANUEL HERRMANN Date of ....... : 1940 Family Phys ................... : NAUN MTZ Phone .................. : [phone] Age ................................ : 80 Film# .................. .:[id number] Sex ................................. : F Unsigned transcriptions are preliminary reports and do not represent a medical or legal document CHEST 2 VIEWS 37919 COMPLETE:10/11/20 06:31 RLB [id number] Reason for Exam: CHF CHEST X-RAY: 2-VIEWS INDICATION: 80-year-old female with shortness of breath. COMPARISON: May 2020 FINDINGS: Frontal and lateral views of the chest were obtained. The lungs are free of consolidation with no effusion or pneumothorax. Scarring along the right minor fissure, unchanged. Stable cardiomegaly. Pacemaker leads intact, unchanged in location. Prior midline sternotomy. Mild fullness of the hilar vessels. No evidence of bony fracture. IMPRESSION: Stable cardiomegaly. Possible mild central vascular congestion. Lung otherwise clear. Elect ronically Reviewed and Signed By Srinivas Lazo MD , 10/19/20 11:42, MAMADOU Transcribe Initials: MILLY , Transcribe Date: 10/11/20 08:41, Dictation Date: Copy for: 710 [facility] REC DISCHARGED Page 1 of 1 Name Value Range Interpretation Code Description Data Vivian rce(s) Supporting Document(s) ID Date Data Source [id number] 10/13/2020 10:14:00 AM EDT [facility] [address] [place] [address] PHONE: [phone] FAX: [phone] Name .................. : ANNA Medina Acct Number.................. : [id number] ROOM. ................. : 107 MR Number ................... : [id number] Stay type ............. : I/P Discharge Date......... ... : Admit Date ......... : 10/09/20 Admit Phys .................... : MANUEL ALIZE Date of ....... : 1940 Family Phys ................... : NAUN MTZ Phone .................. : [phone] Age ................................ : 80 Film# .................. .:[id number] Sex ................................. : F Unsigned transcriptions are preliminary reports and do not represent a medical or legal document CHEST 2 VIEWS 13021 COMPLETE:10/12/20 06:22 RLB [id number] Reason for Exam: CHF CHEST X-RAY: 2-VIEWS COMPARISON: 10/11/20 FINDINGS: There is worsening pulmonary vascular congestion. There is both sides bilateral pleural effusion. The heart is enlarged. There is no hilar adenopathy, although the hilar region is prominent and some of it is vascular. The aorta is unfolded, tortuous and calcified. There are small size bilateral pleural effusions. The bones are demineralized with degenerative changes. A left-sided permanent pacemaker remains in place. Upper spine median sternotomy. IMPRESSION: Worsening pulmonary vascular congestion. Electronically Reviewed and Signed By Florencio Luciano MD , 10/13/20 10:14, AML Transcribe Initials: DZ , Transcribe Date: 10/12/20 16:38, Dictation Date: Copy for: 002 [facility] Copy for: 710 MED REC Page 1 of 1 Name Value Range Interpretation Code Description Data Vivian rce(s) Supporting Document(s) ID Date Data Source [id number] 10/13/2020 05:46:00 AM EDT [facility] (Bolivar Sotomayor MD) Name Value Range Interpretation Code Description Data Vivian rce(s) Supporting Document(s) Laboratory test finding (navigational concept) 19.6 s 1 1.0-15.5 Above high normal [facility] (Bolivar Sotomayor MD) Laboratory test finding (navigational concept) 1.64 0 .93-1.23 Above high normal [facility] (Bolivar Sotomayor MD) \\BLDo\\INR INTERPRETATION\\BLDx\\ Therapeutic range for Coumadin and related oral anticoagulants. -International Normalized Ratio (INR): 2 .0 - 3.0 for Venous Thrombosis, Pulmonary Embolus, Tissue heart valves, Acute ME, Atrial Fibrillation, Valvular heart disease and recurrent Systemic Embolism. -International Normalized Ratio (INR): 2 .5 - 3.5 for Mechanical Prosthetic valve. ID Date Data Source [id number] 10/13/2020 05:46:00 AM EDT [facility] (Bolivar Sotomayor MD) Name Value Range Interpretation Code Description Data Vivian rce(s) Supporting Document(s) Laboratory test finding (navigational concept) 8.6 10^3/uL 4.2-11.0 [facility] (Bolivar Sotomayor MD) Laboratory test finding (navigational concept) Laboratory test result [facility] (Bolivar Sotomayor MD) COMPLETE BLOOD COUNT Laboratory test finding (navigational concept) 3.74 10^6/uL 4 .20-5.40 Below low normal [facility] (Bolivar Sotomayor MD) Laboratory test finding (navigational concept) 11.7 g/dL 1 2.0-16.0 Below low normal [facility] (Bolivar Sotomayor MD) Laboratory test finding (navigational concept) 95.5 fL 81.0-101 [facility] (Bolivar Sotomayor MD) Laboratory test finding (navigational concept) 35.7 % 3 7.0-47.0 Below low normal [facility] (Bolivar Sotomayor MD) Laboratory test finding (navigational concept) 32.8 g/dL 31.0-36.0 [facility] (Bolivar Sotomayor MD) Laboratory test finding (navigational concept) 31.3 pg 27.0-34.0 [facility] (Bolivar Sotomayor MD) Laboratory test finding (navigational concept) 11.5 fL 7 .4-10.4 Above high normal [facility] (Bolivar Sotomayor MD) Laboratory test finding (navigational concept) 171 10^3/uL 150-450 [facility] (Bolivar Sotomayor MD) Laboratory test finding (navigational concept) 16.5 % 1 1.5-14.5 Above high normal [facility] (Bolivar Sotomayor MD) Laboratory test finding (navigational concept) 12.8 % 2 5.0-40.0 Below low normal [facility] (Bolivar Sotomayor MD) Laboratory test finding (navigational concept) 70.1 % 37.0-80.0 [facility] (Bolivar Sotomayor MD) Laboratory test finding (navigational concept) 13.5 % 3.0-8.0 Above high normal [facility] (Bolivar Sotomayor MD) Laboratory test finding (navigational concept) 3.1 % 0.0-7.0 [facility] (Bolivar Sotomayor MD) Laboratory test finding (navigational concept) 0.0 % 0.0-0.0 [facility] (Bolivar Sotomayor MD) Laboratory test finding (navigational concept) 0.3 % 0.0-2.5 [facility] (Bolivar Sotomayor MD) Laboratory test finding (navigational concept) 0.2 % 0.0-0.0 Above high normal [facility] (Bolivar Sotomayor MD) Laboratory test finding (navigational concept) 6.04 10^3/uL 2.00-6.90 [facility] (Bolivar Sotomayor MD) Laboratory test finding (navigational concept) 1.10 10^3/uL 0.60-3.40 [facility] (Bolivar Sotomayor MD) Laboratory test finding (navigational concept) 1.16 10^3/uL 0 .00-0.90 Above high normal [facility] (Bolivar Sotomayor MD) Laboratory test finding (navigational concept) 0.27 10^3/uL 0.00-0.70 [facility] (Bolivar Sotomayor MD) Laboratory test finding (navigational concept) 0.02 10^3/uL 0.00-0.10 [facility] (Bolivar Sotomayor MD) Laboratory test finding (navigational concept) 0.00 10^3/uL 0.00-0.00 [facility] (Bolivar Sotomayor MD) Laboratory test finding (navigational concept) 0.03 10^3/uL 0.00-0.20 [facility] (Bolivar Sotomayor MD) Laboratory test finding (navigational concept) Laboratory test result [facility] (Bolivar Sotomayor MD) Laboratory test finding (navigational concept) 72 % 37-80 [facility] (Bolivar Sotomayor MD) Laboratory test finding (navigational concept) 13 % 25-40 Below low normal [facility] (Bolivar Sotomayor MD) Laboratory test finding (navigational concept) 14 % 3-8 Above high normal [facility] (Bolivar Sotomayor MD) Laboratory test finding (navigational concept) Laboratory test result [facility] (Bolivar Sotomayor MD) Laboratory test finding (navigational concept) 1 % 0-7 [facility] (Bolivar Sotomayor MD) ID Date Data Source [id number] 10/13/2020 05:46:00 AM EDT [facility] (Bolivar Sotomayor MD) Name Value Range Interpretation Code Description Data Vivian rce(s) Supporting Document(s) Laboratory test finding (navigational concept) Laboratory test result [facility] (Bolivar Sotomayor MD) COMPREHENSIVE METABOLIC PANEL Laboratory test finding (navigational concept) 139 meq/L 134-153 [facility] (Bolivar Sotomayor MD) Laboratory test finding (navigational concept) 4.4 meq/L 3.6-5.0 [facility] (Bolivar Sotomayor MD) Laboratory test finding (navigational concept) 96 meq/L 98-107 Below low normal [facility] (Bolivar Sotomayor MD) Laboratory test finding (navigational concept) 36 meq/L 22-30 Above high normal [facility] (Bolivar Sotomayor MD) Laboratory test finding (navigational concept) 26 mg/dL 7-21 Above high normal [facility] (Bolivar Sotomayor MD) Laboratory test finding (navigational concept) 126 mg/dL 7 0-99 Above high normal [facility] (Bolivar Sotomayor MD) Laboratory test finding (navigational concept) 1.2 mg/dL 0.7-1.5 [facility] (Bolivar Sotomayor MD) Laboratory test finding (navigational concept) 22 8-27 [facility] (Bolivar Sotomayor MD) Laboratory test finding (navigational concept) 5.6 g/dL 6 .3-8.2 Below low normal [facility] (Bolivar Sotomayor MD) Laboratory test finding (navigational concept) 3.4 g/dL 3 .9-5.0 Below low normal [facility] (Bolivar Sotomayor MD) Laboratory test finding (navigational concept) 2.2 GM/DL 2 .4-3.2 Below low normal [facility] (Bolivar Sotomayor MD) Laboratory test finding (navigational concept) 1.5 0.8-2.0 [facility] (oBlivar Sotomayor MD) Laboratory test finding (navigational concept) 0.9 mg/dL 0.2-1.3 [facility] (Bolivar Sotomayor MD) Laboratory test finding (navigational concept) 8.7 mg/dL 8.4-10.2 [facility] (Bolivar Sotomayor MD) Laboratory test finding (navigational concept) 292 U/L 38-126 Above high normal [facility] (Bolivar Sotomayor MD) Laboratory test finding (navigational concept) 12 U/L 7-56 [facility] (Bolivar Sotomayor MD) Laboratory test finding (navigational concept) 17 U/L 5-40 [facility] (Bolivar Sotomayor MD) Laboratory test finding (navigational concept) 80 yrs [facility] (Bolivar Sotomayor MD) Laboratory test finding (navigational concept) 7.0 mmol/L 8 .0-16.0 Below low normal [facility] (Bolivar Sotomayor MD) Laboratory test finding (navigational concept) 46 mL/min [facility] (Bolivar Sotomayor MD) Laboratory test finding (navigational concept) Laboratory test result [facility] (Bolivar Sotomayor MD) Male GFR Interprentation 20-49 yrs >60 mL/min Normal 50-59 yrs >56 mL/min Normal 60-69 yrs >49 mL/min Normal 70-79yrs >42 mL/min Normal 80 and above >35 mL/min Normal Female GFR Interpretation 20-39 yrs >60 mL/min Normal 40-49 yrs >58 mL/min Normal 50-59 yrs >51 mL/min Normal 60-69 yrs >45 mL/min Normal 70-79 yrs >39 mL/min Normal 80 and above >32 mL/min Normal ID Date Data Source [id number] 10/13/2020 05:46:00 AM EDT [facility] (Bolivar Sotomayor MD) Name Value Range Interpretation Code Description Data Vivian rce(s) Supporting Document(s) Magnesium [Mass/volume] in Serum or Plasma 2.2 mg/dL 1.7-2.2 [facility] (Bolivar Sotomayor MD) ID Date Data Source [id number] 10/13/2020 07:15:00 AM EDT [facility] Name Value Range Interpretation Code Description Data Vivian rce(s) Supporting Document(s) CBC W/AUTOMATED DIFF [facility] COMPLETE BLOOD COUNT Leukocytes [#/volume] in Blood by Automated count 8.6 10^3/uL 4.2 - 1 1.0 [facility] Erythrocytes [#/volume] in Blood by Automated count 3.74 10^6/uL 4. 20 - 5.40 L [facility] Hemoglobin [Mass/volume] in Blood 11.7 g/dL 12.0 - 16.0 L [facility] Hematocrit [Volume Fraction] of Blood by Automated count 35.7 % 3 7.0 - 47.0 L [facility] Erythrocyte mean corpuscular volume [Entitic volume] by Auto mated count 95.5 fL 81.0 - 101 [facility] Erythrocyte mean corpuscular hemoglobin [Entitic mass] by Automated count 31.3 pg 27.0 - 34.0 [facility] Erythrocyte mean corpuscular hemoglobin concentration [Mass/volume] by Automated count 32.8 g/dL 31.0 - 36.0 [facility] Erythrocyte distribution width [Ratio] by Automated count 16.5 % 11.5 - 14.5 H [facility] Platelets [#/volume] in Blood by Automated count 171 10^3/uL 150 - 45 0 [facility] Platelet mean volume [Entitic volume] in Blood by Automated count 11.5 fL 7.4 - 10.4 H [facility] Neutrophils/100 leukocytes in Blood by Automated count 70.1 % 37. 0 - 80.0 [facility] Lymphocytes/100 leukocytes in Blood by Manual count 12.8 % 25.0 - 40.0 L [facility] Monocytes/100 leukocytes in Blood by Automated count 13.5 % 3.0 - 8.0 H [facility] Eosinophils/100 leukocytes in Blood by Automated count 3.1 % 0.0 - 7.0 [facility] Basophils/100 leukocytes in Blood by Automated count 0.3 % 0.0 - 2.5 [facility] %IG 0.2 % 0.0 - 0.0 [facility] %NRBC 0.0 % 0.0 - 0.0 [facility] al Neutrophils [#/volume] in Blood by Automated count 6.04 10^3/uL 2.00 - 6.90 [facility] Lymphocytes [#/volume] in Blood by Automated count 1.10 10^3/uL 0.60 - 3.40 [facility] Monocytes [#/volume] in Blood by Automated count 1.16 10^3/uL 0.00 - 0.90 H [facility] Eosinophils [#/volume] in Blood by Automated count 0.27 10^3/uL 0.00 - 0.70 [facility] Basophils [#/volume] in Blood by Automated count 0.03 10^3/uL 0.00 - 0.20 [facility] #IG 0.02 10^3/uL 0.00 - 0.10 [facility] #NRBC 0.00 10^3/uL 0.00 - 0.00 [facility]ital MANUAL DIFF SEE BELOW [facility] ital Segmented neutrophils/100 leukocytes in Blood by Manual count 72 % 37 - 80 [facility] %LYMPH 13 % 25 - 40 L [facility] al %MONO 14 % 3 - 8 [facility] %EOS 1 % 0 - 7 [facility] al RBC MORPH NOT INDICATED [facility] ID Date Data Source [id number] 10/13/2020 07:14:00 AM EDT [facility] Name Value Range Interpretation Code Description Data Vivian rce(s) Supporting Document(s) COMPREHENSIVE METABOLIC PANEL [facility] COMPREHENSIVE METABOLIC PANEL Sodium [Moles/volume] in Serum or Plasma 139 mEq/L 134 - 153 [facility] Potassium [Moles/volume] in Serum or Plasma 4.4 mEq/L 3.6 - 5.0 [facility] Chloride [Moles/volume] in Serum or Plasma 96 mEq/L 98 - 107 L [facility] Carbon dioxide, total [Moles/volume] in Serum or Plasma 36 MEQ/L 22 - 30 H [facility] Glucose [Mass/volume] in Serum or Plasma 126 MG/DL 70 - 99 H [facility] BUN 26 MG/DL 7 - 21 H [facility] al Creatinine [Mass/volume] in Serum or Plasma 1.2 MG/DL 0.7 - 1.5 [facility] BUN/CREAT 22 8 - 27 [facility] al Protein [Mass/volume] in Serum or Plasma 5.6 G/DL 6.3 - 8.2 L [facility] Albumin [Mass/volume] in Serum or Plasma 3.4 G/DL 3.9 - 5.0 L [facility] Globulin [Mass/volume] in Serum by calculation 2.2 GM/DL 2.4 - 3.2 L [facility] A/G RATIO 1.5 0.8 - 2.0 [facility] Calcium [Mass/volume] in Serum or Plasma 8.7 MG/DL 8.4 - 10.2 [facility] Bilirubin.total [Mass/volume] in Serum or Plasma 0.9 MG/DL 0.2 - 1.3 [facility] Alkaline phosphatase [Enzymatic activity/volume] in Serum or Plasma 292 U/L 38 - 126 H [facility] Aspartate aminotransferase [Enzymatic activity/volume] in Serum or Plasma 17 U/L 5 - 40 [facility] Alanine aminotransferase [Enzymatic activity/volume] in Seru m or Plasma 12 U/L 7 - 56 [facility] Anion gap 3 in Serum or Plasma 7.0 mmol/L 8.0 - 16.0 L [facility] AGE 80 yrs [facility] NON-AA GFR 46 mL/min [facility] iggy AFR AMER GFR >60 [facility] Male GFR In terprentation 20-49 yrs >60 mL/min Normal 50-59 yrs >56 mL/min Normal 60-69 yrs >49 mL/min Normal 70-79yrs >42 mL/min Normal 80 and above >35 mL/min Normal Female GFR Interpretation 20-39 yrs >60 mL/min Normal 40-49 yrs >58 mL/min Normal 50-59 yrs >51 mL/min Normal 60-69 yrs >45 mL/min Normal 70-79 yrs >39 mL/min Normal 80 and above >32 mL/min Normal ID Date Data Source [id number] 10/13/2020 07:13:00 AM [facility] Name Value Range Interpretation Code Description Data Vivian rce(s) Supporting Document(s) Magnesium [Mass/volume] in Serum or Plasma 2.2 MG/DL 1.7 - 2.2 [facility] ID Date Data Source [id number] 10/13/2020 06:40:00 AM [facility] Name Value Range Interpretation Code Description Data Vivian rce(s) Supporting Document(s) Prothrombin time (PT) 19.6 SECONDS 11.0 - 15.5 H [facility] INR in Platelet poor plasma by Coagulation assay 1.64 0.93 - 1. 23 H [facility] \\BLDo\\INR INTERPRETATION\\BLDx\\ Therapeutic range for Coumadin and related oral anticoagulants. - International Normalized Ratio (INR): 2.0 - 3.0 for Venous Thrombosis, Pulmonary Embolus, Tissue heart valves, Acute ME, Atrial Fibrillation, Valvular heart disease and recurrent Systemic Embolism. -International Normalized Ratio (INR): 2.5 - 3.5 for Mechanical Prosthetic valve. ID Date Data Source [id number] 10/12/2020 07:08:00 [place] [address] RESPIRATORY CARE REPORT ==== ---------NAME------- NUMBER SEX AGE ADMIT DISC. XRAY# F/C BRENNON Medina [id number] F 80 10/09/20 [id number] M4 I/P DATE OF : 1940 M/R# [id number] PH#: [phone] [id number] LOCATION: EMERGENCY DEPT EKG [id number] COMP LETE:10/12/20 08:[address] [place] [address] PHYSICIAN: MANUEL HERRMANN Name Value Range Interpretation Code Description Data Vivian rce(s) Supporting Document(s) ID Date Data Source [id number] 10/12/2020 10:12:00 [place] [address] PHONE: [phone] FAX: [phone] Name .................. : ANNA Medina Acct Number.................. : [id number] ROOM. ................. : 107-1 Number ................... : [id number] Stay type ............. : I/P Discharge Date......... ... : Admit Date ......... : 10/09/20 Admit Phys .................... : MANUEL HERRMANN Date of ....... : 1940 Family Phys ................... : NAUN MTZ Phone .................. : [phone] Age ................................ : 80 Film# .................. .:[id number] Sex ................................. : F Unsigned transcriptions are preliminary reports and do not represent a medical or legal document CT CTA CHEST NON-CORONARY W 19098 COMPLETE:10/09/20 15:44 MICHELLE [address]76 Reason(s): shortness of breath elevated d dimer r/o PE CTA OF THE CHEST WITH CONTRAST: INDICATION: Shortness of breath and elevated D-dimer. FINDINGS: The neck base is clear. Evaluation of the lungs is limited due to expiratory phase of the examination and respiratory motion artifact. There are small bilateral pleural effusions, right greater than left. The heart is enlarged. There is no pulmonary embolism. Severe coronary artery calcifications are noted. No lymphadenopathy. The visualized upper abdomen demonstrates a cirrhotic liver and mild ascites. No acute osseous abnormality. IMPRESSION: 1. No pulmonary embolism. 2. Small bilateral pleural effusions, right greater than left. 3. Cardiomegaly, coronary artery disease. 4. Partially visualized cirrhosis and mild ascites. While performing the above CT examination, radiation dose reduction was accomplished utilizing automated exposure control, adjusting of the mA and kV based on the patient's body size and/or the use of imperative reconstructive techniques. CT dose: 864.5 mGycm Contrast agent in mL: 75 Isovue 370 Page 1 of 2 [facility] [address] [place] [address] [place] [address] PHONE: [phone] FAX: [phone] Name .................. : ANNA Medina Acct Number.................. : [id number] ROOM. ................. : 107- 1 MR Number ................... : [id number] Stay type ............. : I/P Discharge Date......... ... : Admit Date ......... : 10/09/20 Admit Phys .................... : MANUEL ALIZE Date of ....... : 1940 Family Phys ................... : [facility] Phone .................. : [phone] Age ................................ : 80 Film# .................. .:[id number] Sex ................................. : F Unsigned transcriptions are preliminary reports and do not represent a medical or legal document CT CTA CHEST NON- CORONARY W C [id number] COMPLETE:10/09/20 15:44 MICHELLE [address]81 Reason(s): shortness of breath elevated d dimer r/o PE Method of administration: Intravenous Electronically Reviewed and Signed By Anselmo Bernstein M.D. , 10/12/20 10:12, [place] Transcribe Initials: MILLY , Transcribe Date: 10/09/20 18:24, Dictation Date: Copy for: 002 [facility] Copy for: 710 MED REC Page 2 of 2 Name Value Range Interpretation Code Description Data Vivian rce(s) Supporting Document(s) ID Date Data Source [id number] 10/11/2020 10:07:00 PM EDT [address] [address] PROGRESS NOTENAME: ANNA Medina ROOM#: [id number] OF : 1940 MR#: [id number] DATE: 10/09/20 OF SERVICE: 10/11/20SUBJECTIVE: This patient came in with congestive heart failure. The dyspnea and wheezing haveimproved. She is on a Lasix drip. Plan is to discontinue the Lasix drip as the dyspnea has improved. Sheappears more cheerful. ROS: There is no history of any dizziness, syncope, visual loss, diplopia or headache.There is no orthopnea or paroxysmal nocturnal dyspnea. No chills or fever. No cough or hemoptysis. Nobowel disturbance. No urinary problem. No ankle edema.OBJECTIVE: On exam, moderately built. Blood pressure is 140/80. Head is normal. Heart is regular sinusrhythm. Lungs are clear. Abdomen is soft. Extremities are normal.LABORATORY DATA: Patient's INR is 2.05. Hemoglobin is 12.3. Magnesium is 2.0. BUN is 20.Creatinine is 1.3.ASSESSMENT/PLAN: Patient has the following issues:1. Congestive heart failure. She responded well. She diuresed well and lost 5 pounds of weight. Plan to discontinue the Lasix drip and give her Lasix 40 mg b.i.d. IV and see the response to that. A repeat x- ray of the chest will be done tomorrow.DD: oBlivar Sotomayor MD, PC 10/11/20 11:10DT: JAMEE 10/11/20 22:02DS: Bolivar Sotomayor MD, PC 10/12/20 09:22 1 Name Value Range Interpretation Code Description Data Vivian rce(s) Supporting Document(s) ID Date Data Source [id number] 10/11/2020 02:37:00 AM EDT [address] [place] [address] PROGRESS NOTENAME: ANNA Medina ROOM#: [id number] OF : 1940 MR#: [id number] DATE: 10/09/20 OF SERVICE: 10/10/20SUBJECTIVE: This patient came in with congestive heart failure. She has bilateral pleural effusion. Thedyspnea and wheezing is better. She denies any chest pain. She has some orthopnea and paroxysmal nocturnaldyspnea. ROS: There is no history of any dizziness, syncope, visual loss, diplopia or headache. She hasorthopnea. No chest pain. No chills or fever. No cough or hemoptysis. No bowel disturbance. No urinaryproblem. No ankle edema. She has a rash on the legs, possible dermatitis.OBJECTIVE: On exam, blood pressure is 147/60. Head is normal. Heart is regular sinus rhythm. Lungs areclear. Abdomen is soft. Patient has redness over the legs, possible cellulitis. Hemoglobin was 12. Thyroidpanel was done and her TSH is high at 16.18. T4 is low, being 0.09.ASSESSMENT/PLAN: Patient has the following issues:1. Congestive heart failure. Plan to continue Lasix drip 20 mg/hr IV.2. Dermatitis to both legs. Plan to give 0.05% betamethasone ointment on both legs.3. Hypothyroidism. Will give Synthroid 100 mcg daily.DD: Bolivar Sotomayor MD, PC 10/10/20 11:24DT: DMZ 10/11/20 02:33DS: Bolivar Sotomayor MD, PC 10/12/20 09:22 1 Name Value Range Interpretation Code Description Data Vivian rce(s) Supporting Document(s) ID Date Data Source [id number] 10/10/2020 05:28:00 [place] [address] HISTORY AND PHYSICALNAME: ANNA Medina ROOM#: [id number] OF : 1940 MR#: [id number] PHYS: Bolivar Sotomayor MD, PC DATE: 10/09/20CHIEF COMPLAINT: This 80-year-old white female presented with severe dyspnea, orthopnea, markedfatigue, dizziness.HISTORY OF PRESENT ILLNESS:This patient has not been doing well for the last one week. She is short of breath. She hardly can walk. She hasorthopnea and paroxysmal nocturnal dyspnea. She also has some ankle edema. She also has peripheralvascular disease and goes to Dr. Grigsby, the vascular surgery. She has a possible small ulcer on the left big toefrom PAD. The patient complains of tiredness and fatigue. She has history of coronary artery disease,coronary angioplasty, cardiac surgery, ICD device, pacemaker, stent to the left leg, aortic valve prosthesis.There is no history of any chest pain. No chills or fever. No cough or hemoptysis. She cannot lie flat. She hassignificant orthopnea and paroxysmal nocturnal dyspnea.PAST MEDICAL HISTORY:The patient has COPD. She has known congestive heart failure, COPD, cystitis, atrial fibrillation,nephropathy.MEDICATIONS: 1. Iron 324 mg daily 2. Lipitor 80 mg daily 3. Lyrica 75 mg b.i.d. 4. Prilosec 20 mg daily 5. Plavix 75 mg daily 6. Synthroid 100 mcg daily 7. Toujeo insulin 36 daily 8. Vitamin C 9. Vitamin D 10. Warfarin 3 mg dailyREVIEW OF SYSTEMS:The patient denies any chest pain. She has tightness in the chest, orthopnea, paroxysmal nocturnaldyspnea. No chills or fever. No cough or hemoptysis. No bowel disturbance. No urinary problem. Nohematemesis or melena. No hematuria.PERSONAL HISTORY:Nonsmoker.FAMILY HISTORY: [address] [place] [address] HISTORY AND PHYSICALNAME: ANNA Medina ROOM#: [id number] OF : 1940 MR#: [id number] PHYS: Bolivar Sotomayor MD, PC [facility] [id number] DATE: 10/09/20Father of hypertension and stroke. Mother of hypertension and cancer of the breast, tobaccoabuse.PAST SURGICAL HISTORY:The patient has history of tubal ligation in 1969, hysterectomy in the past, cholecystectomy,bunionectomy in 1999, cataract surgery left eye in 2003 and on the right in 2004, coronary angiogramon 04/08/07 and 05/21/2009, coronary stent in 04/08/07. She had a repeat and 2 stents in 10/2012,sigmoidoscopy, left common femoral artery angioplasty in 11/2014, left superficial femoral arteryangioplasty, mitral valve replacement on 08/23/14, tricuspid valve repair and repair of ASD, cardiacsurgery, diabetes, hyperlipidemia, hypertension.PHYSICAL EXAMINATION:GENERAL: Moderately-built.VITAL SIGNS: Blood pressure is 150/80. Pulse was 60. Temperature 98. Respirations 18. [id number] is 98%.HEENT: Head is normal. Pupils and fundus reveal grade 2 changes. Mouth normal. Tongue dry.NECK: Supple. No lymphadenopathy. Thyroid not enlarged. Neck veins are distended. No carotidbruits.CHEST: Symmetrical.HEART: Regular sinus rhythm. No murmur or gallop.LUNGS: Rales at the bases.ABDOMEN: Soft and nontender. No visceromegaly.EXTREMITIES: Some cellulitis of the left leg noted. There is a small ulcer on the big toe due to PAD.Peripheral artery is not palpable.NEUROLOGICAL: There is dullness to pinprick in the distal toes and dullness to filament. Reflexes arenormal.LABORATORY DATA:Lab tests with the CT scan of the chest showed no PE. INR is 2.54. Sodium is 141, potassium is 4.2, BU N 26,creatinine is 1.4. White count is 8.6.IMPRESSION: 1. Congestive heart failure, systolic ejection fraction of 30-40%. 2. History of mitral valve prosthesis status post tricuspid valve repair. 3. History of diabetes. 4. History of hypertension. 5. History of carotid artery disease. 6. History of PAD. [address] [place] [address] HISTORY AND PHYSICALNAME: ANNA Medina ROOM#: [id number] OF : 1940 MR#: [id number] PHYS: Bolivar Sotomayor MD, PC [facility] [id number] DATE: 10/09/20 7. History of stent to the left common femoral artery and superficial artery. 8. History of hyperlipidemia.PLAN:This patient will be put on a Lasix drip at 10 mg/hr. Vasodilator therapy will be used. Probably we will useEntresto to improve cardiac function as a vasodilator and Coreg will be used too.DD: Bolivar Sotomayor MD, PC 10/09/20 18:07DT: JAMEE 10/10/20 04:38DS: Bolivar Sotomayor MD, PC 10/12/20 09:22 3 Name Value Range Interpretation Code Description Data Vivian rce(s) Supporting Document(s) ID Date Data Source [id number] 10/12/2020 05:43:00 AM EDT [facility] (Bolivar Sotomayor MD) Name Value Range Interpretation Code Description Data Vivian rce(s) Supporting Document(s) Laboratory test finding (navigational concept) Laboratory test result [facility] (Bolivar Sotomayor MD) COMPLETE BLOOD COUNT Laboratory test finding (navigational concept) 8.1 10^3/uL 4.2-11.0 [facility] (Bolivar Sotomayor MD) Laboratory test finding (navigational concept) 11.7 g/dL 1 2.0-16.0 Below low normal [facility] (Bolivar Sotomayor MD) Laboratory test finding (navigational concept) 3.78 10^6/uL 4 .20-5.40 Below low normal [facility] (Bolivar Sotomayor MD) Laboratory test finding (navigational concept) 94.7 fL 81.0-101 [facility] (Bolivar Sotomayor MD) Laboratory test finding (navigational concept) 35.8 % 3 7.0-47.0 Below low normal [facility] (Bolivar Sotomayor MD) Laboratory test finding (navigational concept) 31.0 pg 27.0-34.0 [facility] (Bolivar Sotomayor MD) Laboratory test finding (navigational concept) 32.7 g/dL 31.0-36.0 [facility] (Bolivar Sotomayor MD) Laboratory test finding (navigational concept) 16.4 % 1 1.5-14.5 Above high normal [facility] (Bolivar Sotomayor MD) Laboratory test finding (navigational concept) 170 10^3/uL 150-450 [facility] (Bolivar Sotomayor MD) Laboratory test finding (navigational concept) 15.8 % 2 5.0-40.0 Below low normal [facility] (Bolivar Sotomayor MD) Laboratory test finding (navigational concept) 66.6 % 37.0-80.0 [facility] (Bolivar Sotomayor MD) Laboratory test finding (navigational concept) 11.0 fL 7 .4-10.4 Above high normal [facility] (Bolivar Sotomayor MD) Laboratory test finding (navigational concept) 13.1 % 3.0-8.0 Above high normal [facility] (Bolivar Sotomayor MD) Laboratory test finding (navigational concept) 3.9 % 0.0-7.0 [facility] (Bolivar Sotomayor MD) Laboratory test finding (navigational concept) 0.1 % 0.0-0.0 Above high normal [facility] (Bolivar Sotomayor MD) Laboratory test finding (navigational concept) 0.5 % 0.0-2.5 [facility] (Bolivar Sotomayor MD) Laboratory test finding (navigational concept) 5.41 10^3/uL 2.00-6.90 [facility] (Bolivar Sotomayor MD) Laboratory test finding (navigational concept) 0.0 % 0.0-0.0 [facility] (Bolivar Sotomayor MD) Laboratory test finding (navigational concept) 1.28 10^3/uL 0.60-3.40 [facility] (Bolivar Sotomayor MD) Laboratory test finding (navigational concept) 1.06 10^3/uL 0 .00-0.90 Above high normal [facility] (Bolivar Sotomayor MD) Laboratory test finding (navigational concept) 0.32 10^3/uL 0.00-0.70 [facility] (Bolivar Sotomayor MD) Laboratory test finding (navigational concept) 0.04 10^3/uL 0.00-0.20 [facility] (Bolivar Sotomayor MD) Laboratory test finding (navigational concept) 0.01 10^3/uL 0.00-0.10 [facility] (Bolivar Sotomayor MD) Laboratory test finding (navigational concept) 0.00 10^3/uL 0.00-0.00 [facility] (Bolivar Sotomayor MD) Laboratory test finding (navigational concept) Laboratory test result [facility] (Bolivar Sotomayor MD) Laboratory test finding (navigational concept) 62 % 37-80 [facility] (Bolivar Sotomayor MD) Laboratory test finding (navigational concept) 0 % 0-5 [facility] (Bolivar Sotomayor MD) Laboratory test finding (navigational concept) 26 % 25-40 [facility] (Bolivar Sotomayor MD) Laboratory test finding (navigational concept) 9 % 3-8 Above high normal [facility] (Bolivar Sotomayor MD) Laboratory test finding (navigational concept) 3 % 0-7 [facility] (Bolivar Sotomayor MD) Laboratory test finding (navigational concept) Laboratory test result [facility] (Bolivar Sotomayor MD) Laboratory test finding (navigational concept) 0 % 0-2 [facility] (Bolivar Sotomayor MD) ID Date Data Source [id number] 10/12/2020 05:43:00 AM EDT [facility] (Bolivar Sotomayor MD) Name Value Range Interpretation Code Description Data Vivian rce(s) Supporting Document(s) Laboratory test finding (navigational concept) Laboratory test result [facility] (Bolivar Sotomayor MD) COMPREHENSIVE METABOLIC PANEL Laboratory test finding (navigational concept) 140 meq/L 134-153 [facility] (Bolivar Sotomayor MD) Laboratory test finding (navigational concept) 98 meq/L 98-107 [facility] (Bolivar Sotomayor MD) Laboratory test finding (navigational concept) 4.0 meq/L 3.6-5.0 [facility] (Bolivar Sotomayor MD) Laboratory test finding (navigational concept) 36 meq/L 22-30 Above high normal [facility] (Bolivar Sotomayor MD) Laboratory test finding (navigational concept) 51 mg/dL 70-99 Below low normal [facility] (Bolivar Sotomayor MD) Laboratory test finding (navigational concept) 24 mg/dL 7-21 Above high normal [facility] (Bolivar Sotomayor MD) Laboratory test finding (navigational concept) 1.3 mg/dL 0.7-1.5 [facility] (Bolivar Sotomayor MD) Laboratory test finding (navigational concept) 18 8-27 [facility] (Bolivar Sotomayor MD) Laboratory test finding (navigational concept) 5.6 g/dL 6 .3-8.2 Below low normal [facility] (Bolivar Sotomayor MD) Laboratory test finding (navigational concept) 3.3 g/dL 3 .9-5.0 Below low normal [facility] (Bolivar Sotomayor MD) Laboratory test finding (navigational concept) 2.3 GM/DL 2 .4-3.2 Below low normal [facility] (Bolivar Sotomayor MD) Laboratory test finding (navigational concept) 1.4 0.8-2.0 [facility] (Bolivar Sotomayor MD) Laboratory test finding (navigational concept) 8.4 mg/dL 8.4-10.2 [facility] (Bolivar Sotomayor MD) Laboratory test finding (navigational concept) 244 U/L 38-126 Above high normal [facility] (Bolivar Sotomayor MD) Laboratory test finding (navigational concept) 1.0 mg/dL 0.2-1.3 [facility] (Bolivar Sotomayor MD) Laboratory test finding (navigational concept) 16 U/L 5-40 [facility] (Bolivar Sotomayor MD) Laboratory test finding (navigational concept) 11 U/L 7-56 [facility] (Bolivar Sotomayor MD) Laboratory test finding (navigational concept) 6.0 mmol/L 8 .0-16.0 Below low normal [facility] (Bolivar Sotomayor MD) Laboratory test finding (navigational concept) 42 mL/min [facility] (Bolivar Sotomayor MD) Laboratory test finding (navigational concept) 80 yrs [facility] (Bolivar Sotomayor MD) Laboratory test finding (navigational concept) Laboratory test result [facility] (Bolivar Sotomayor MD) Male GFR Interprentation 20-49 yrs >60 mL/min Normal 50-59 yrs >56 mL/min Normal 60-69 yrs >49 mL/min Normal 70-79yrs >42 mL/min Normal 80 and above >35 mL/min Normal Female GFR Interpretation 20-39 yrs >60 mL/min Normal 40-49 yrs >58 mL/min Normal 50-59 yrs >51 mL/min Normal 60-69 yrs >45 mL/min Normal 70-79 yrs >39 mL/min Normal 80 and above >32 mL/min Normal ID Date Data Source [id number] 10/12/2020 05:43:00 AM EDT [facility] (Bolivar Sotomayor MD) Name Value Range Interpretation Code Description Data Vivian rce(s) Supporting Document(s) Magnesium [Mass/volume] in Serum or Plasma 1.9 mg/dL 1.7-2.2 [facility] (Bolivar Sotomayor MD) ID Date Data Source [id number] 10/12/2020 05:43:00 AM EDT [facility] (Bolivar Sotomayor MD) Name Value Range Interpretation Code Description Data Vivian rce(s) Supporting Document(s) Laboratory test finding (navigational concept) 1.76 0 .93-1.23 Above high normal [facility] (Bolivar Sotomayor MD) \\BLDo\\INR INTERPRETATION\\BLDx\\ Therapeutic range for Coumadin and related oral anticoagulants. -International Normalized Ratio (INR): 2 .0 - 3.0 for Venous Thrombosis, Pulmonary Embolus, Tissue heart valves, Acute ME, Atrial Fibrillation, Valvular heart disease and recurrent Systemic Embolism. -International Normalized Ratio (INR): 2 .5 - 3.5 for Mechanical Prosthetic valve. Laboratory test finding (navigational concept) 20.8 s 1 1.0-15.5 Above high normal [facility] (Bolivar Sotomayor MD) ID Date Data Source [id number] 10/12/2020 07:47:00 AM T [facility] Name Value Range Interpretation Code Description Data Vivian e(s) Supporting Document(s) CBC W/AUTOMATED DIFF [facility] COMPLETE BLOOD COUNT Leukocytes [#/volume] in Blood by Automated count 8.1 10^3/uL 4.2 - 1 1.0 [facility] Erythrocytes [#/volume] in Blood by Automated count 3.78 10^6/uL 4. 20 - 5.40 L [facility] Hemoglobin [Mass/volume] in Blood 11.7 g/dL 12.0 - 16.0 L [facility] Hematocrit [Volume Fraction] of Blood by Automated count 35.8 % 3 7.0 - 47.0 L [facility] Erythrocyte mean corpuscular volume [Entitic volume] by Auto mated count 94.7 fL 81.0 - 101 [facility] Erythrocyte mean corpuscular hemoglobin [Entitic mass] by Automated count 31.0 pg 27.0 - 34.0 [facility] Erythrocyte mean corpuscular hemoglobin concentration [Mass/volume] by Automated count 32.7 g/dL 31.0 - 36.0 [facility] Erythrocyte distribution width [Ratio] by Automated count 16.4 % 11.5 - 14.5 H [facility] Platelets [#/volume] in Blood by Automated count 170 10^3/uL 150 - 45 0 [facility] Platelet mean volume [Entitic volume] in Blood by Automated count 11.0 fL 7.4 - 10.4 H [facility] Neutrophils/100 leukocytes in Blood by Automated count 66.6 % 37. 0 - 80.0 [facility] Lymphocytes/100 leukocytes in Blood by Manual count 15.8 % 25.0 - 40.0 L [facility] Monocytes/100 leukocytes in Blood by Automated count 13.1 % 3.0 - 8.0 H [facility] Eosinophils/100 leukocytes in Blood by Automated count 3.9 % 0.0 - 7.0 [facility] 0.5 %IG 0.1 % 0.0 - 0.0 H [facility] %NRBC 0.0 % 0.0 - 0.0 [facility] al Neutrophils [#/volume] in Blood by Automated count 5.41 10^3/uL 2.00 - 6.90 [facility] Lymphocytes [#/volume] in Blood by Automated count 1.28 10^3/uL 0.60 - 3.40 [facility] Monocytes [#/volume] in Blood by Automated count 1.06 10^3/uL 0.00 - 0.90 H [facility] Eosinophils [#/volume] in Blood by Automated count 0.32 10^3/uL 0.00 - 0.70 [facility] Basophils [#/volume] in Blood by Automated count 0.04 10^3/uL 0.00 - 0.20 [facility] #IG 0.01 10^3/uL 0.00 - 0.10 [facility] ospital #NRBC 0.00 10^3/uL 0.00 - 0.00 [facility] MANUAL DIFF SEE BELOW [facility] Segmented neutrophils/100 leukocytes in Blood by Manual count 62 % 37 - 80 [facility] BAND 0 % 0 - 5 [facility] %LYMPH 26 % 25 - 40 [facility] al %MONO 9 % 3 - 8 H [facility] al %EOS 3 % 0 - 7 [facility] al 0 RBC MORPH NOT INDICATED [facility] spital ID Date Data Source [id number] 10/12/2020 07:32:00 AM EDT [facility] Name Value Range Interpretation Code Description Data Vivian rce(s) Supporting Document(s) COMPREHENSIVE METABOLIC PANEL [facility] COMPREHENSIVE METABOLIC PANEL Sodium [Moles/volume] in Serum or Plasma 140 mEq/L 134 - 153 [facility] Potassium [Moles/volume] in Serum or Plasma 4.0 mEq/L 3.6 - 5.0 [facility] Chloride [Moles/volume] in Serum or Plasma 98 mEq/L 98 - 107 [facility] Carbon dioxide, total [Moles/volume] in Serum or Plasma 36 MEQ/L 22 - 30 H [facility] Glucose [Mass/volume] in Serum or Plasma 51 MG/DL 70 - 99 L [facility] BUN 24 MG/DL 7 - 21 H [facility] al Creatinine [Mass/volume] in Serum or Plasma 1.3 MG/DL 0.7 - 1.5 [facility] BUN/CREAT 18 8 - 27 [facility] al Protein [Mass/volume] in Serum or Plasma 5.6 G/DL 6.3 - 8.2 L [facility] Albumin [Mass/volume] in Serum or Plasma 3.3 G/DL 3.9 - 5.0 L [facility] Globulin [Mass/volume] in Serum by calculation 2.3 GM/DL 2.4 - 3.2 L [facility] A/G RATIO 1.4 0.8 - 2.0 [facility] Calcium [Mass/volume] in Serum or Plasma 8.4 MG/DL 8.4 - 10.2 [facility] Bilirubin.total [Mass/volume] in Serum or Plasma 1.0 MG/DL 0.2 - 1.3 [facility] Alkaline phosphatase [Enzymatic activity/volume] in Serum or Plasma 244 U/L 38 - 126 H [facility] Aspartate aminotransferase [Enzymatic activity/volume] in Serum or Plasma 16 U/L 5 - 40 [facility] Alanine aminotransferase [Enzymatic activity/volume] in Seru m or Plasma 11 U/L 7 - 56 [facility] Anion gap 3 in Serum or Plasma 6.0 mmol/L 8.0 - 16.0 L [facility] AGE 80 yrs [facility] NON-AA GFR 42 mL/min [facility] iggy AFR AMER GFR >60 [facility] Male GFR In terprentation 20-49 yrs >60 mL/min Normal 50-59 yrs >56 mL/min Normal 60-69 yrs >49 mL/min Normal 70-79yrs >42 mL/min Normal 80 and above >35 mL/min Normal Female GFR Interpretation 20-39 yrs >60 mL/min Normal 40-49 yrs >58 mL/min Normal 50-59 yrs >51 mL/min Normal 60-69 yrs >45 mL/min Normal 70-79 yrs >39 mL/min Normal 80 and above >32 mL/min Normal ID Date Data Source [id number] 10/12/2020 07:12:00 AM EDT [facility] Name Value Range Interpretation Code Description Data Vivian rce(s) Supporting Document(s) Magnesium [Mass/volume] in Serum or Plasma 1.9 MG/DL 1.7 - 2.2 [facility] ID Date Data Source [id number] 10/12/2020 06:32:00 AM [facility] Name Value Range Interpretation Code Description Data Vivian rce(s) Supporting Document(s) Prothrombin time (PT) 20.8 SECONDS 11.0 - 15.5 H [facility] INR in Platelet poor plasma by Coagulation assay 1.76 0.93 - 1. 23 H [facility] \\BLDo\\INR INTERPRETATION\\BLDx\\ Therapeutic range for Coumadin and related oral anticoagulants. - International Normalized Ratio (INR): 2.0 - 3.0 for Venous Thrombosis, Pulmonary Embolus, Tissue heart valves, Acute ME, Atrial Fibrillation, Valvular heart disease and recurrent Systemic Embolism. -International Normalized Ratio (INR): 2.5 - 3.5 for Mechanical Prosthetic valve. ID Date Data Source [id number] 10/11/2020 01:10:00 [place] [address] RESPIRATORY CARE REPORT ==== ---------NAME------- NUMBER SEX AGE ADMIT DISC. XRAY# F/C BRENNON Medina [id number] F 80 10/09/20 [id number] M4 I/P DATE OF : 1940 M/R# [id number] PH#: [phone] LOCATION: EMERGENCY DEPT EKG [id number] COMP LETE:10/11/20 08:31 [facility] [id number] PHYSICIAN: MANUEL HERRMANN Name Value Range Interpretation Code Description Data Vivian rce(s) Supporting Document(s) ID Date Data Source [id number] 10/11/2020 12:25:00 [place] [address] RESPIRATORY CARE REPORT ==== ---------NAME------- NUMBER SEX AGE ADMIT DISC. XRAY# F/C BRENNON Medina [id number] F 80 10/09/20 [id number] M4 I/P DATE OF : 1940 M/R# [id number] PH#: [phone] LOCATION: EMERGENCY DEPT EKG [id number] COMP LETE:10/09/20 14:14 [facility] [address] PHYSICIAN: MANUEL MACIAS Name Value Range Interpretation Code Description Data Vivian rce(s) Supporting Document(s) ID Date Data Source [id number] 10/11/2020 06:39:00 AM EDT [facility] (Bolivar Sotomayor MD) Name Value Range Interpretation Code Description Data Vivian rce(s) Supporting Document(s) Laboratory test finding (navigational concept) 7.8 10^3/uL 4.2-11.0 [facility] (Bolivar Sotomayor MD) Laboratory test finding (navigational concept) Laboratory test result [facility] (Bolivar Sotomayor MD) COMPLETE BLOOD COUNT Laboratory test finding (navigational concept) 37.7 % 37.0-47.0 [facility] (Bolivar Sotomayor MD) Laboratory test finding (navigational concept) 3.93 10^6/uL 4 .20-5.40 Below low normal [facility] (Bolivar Sotomayor MD) Laboratory test finding (navigational concept) 12.3 g/dL 12.0-16.0 [facility] (Bolivar Sotomayor MD) Laboratory test finding (navigational concept) 31.3 pg 27.0-34.0 [facility] (Bolivar Sotomayor MD) Laboratory test finding (navigational concept) 95.9 fL 81.0-101 [facility] (Bolivar Sotomayor MD) Laboratory test finding (navigational concept) 32.6 g/dL 31.0-36.0 [facility] (Bolivar Sotomayor MD) Laboratory test finding (navigational concept) 16.8 % 1 1.5-14.5 Above high normal [facility] (Bolivar Sotomayor MD) Laboratory test finding (navigational concept) 184 10^3/uL 150-450 [facility] (Bolivar Sotomayor MD) Laboratory test finding (navigational concept) 10.8 fL 7 .4-10.4 Above high normal [facility] (Bolivar Sotomayor MD) Laboratory test finding (navigational concept) 15.2 % 2 5.0-40.0 Below low normal [facility] (Bolivar Sotomayor MD) Laboratory test finding (navigational concept) 11.7 % 3.0-8.0 Above high normal [facility] (Bolivar Sotomayor MD) Laboratory test finding (navigational concept) 69.8 % 37.0-80.0 [facility] (Bolivar Sotomayor MD) Laboratory test finding (navigational concept) 0.4 % 0.0-2.5 [facility] (Bolivar Sotomayor MD) Laboratory test finding (navigational concept) 2.8 % 0.0-7.0 [facility] (Bolivar Sotomayor MD) Laboratory test finding (navigational concept) 0.0 % 0.0-0.0 [facility] (Bolivar Sotomayor MD) Laboratory test finding (navigational concept) 0.1 % 0.0-0.0 Above high normal [facility] (Bolivar Sotomayor MD) Laboratory test finding (navigational concept) 5.42 10^3/uL 2.00-6.90 [facility] (Bolivar Sotomayor MD) Laboratory test finding (navigational concept) 1.18 10^3/uL 0.60-3.40 [facility] (Bolivar Sotomayor MD) Laboratory test finding (navigational concept) 0.91 10^3/uL 0 .00-0.90 Above high normal [facility] (Bolivar Sotomayor MD) Laboratory test finding (navigational concept) 0.22 10^3/uL 0.00-0.70 [facility] (Bolivar Sotomayor MD) Laboratory test finding (navigational concept) 0.03 10^3/uL 0.00-0.20 [facility] (Bolivar Sotomayor MD) Laboratory test finding (navigational concept) 0.01 10^3/uL 0.00-0.10 [facility] (Bolivar Sotomayor MD) Laboratory test finding (navigational concept) Laboratory test result [facility] (Bolivar Sotomayor MD) Laboratory test finding (navigational concept) 0.00 10^3/uL 0.00-0.00 [facility] (Bolivar Sotomayor MD) Laboratory test finding (navigational concept) Laboratory test result [facility] (Bolivar Sotomayor MD) ID Date Data Source [id number] 10/11/2020 06:39:00 AM EDT [facility] (Bolivar Sotomayor MD) Name Value Range Interpretation Code Description Data Vivian rce(s) Supporting Document(s) Laboratory test finding (navigational concept) 2.05 0 .93-1.23 Above high normal [facility] (Bolivar Sotomayor MD) \\BLDo\\INR INTERPRETATION\\BLDx\\ Therapeutic range for Coumadin and related oral anticoagulants. -International Normalized Ratio (INR): 2 .0 - 3.0 for Venous Thrombosis, Pulmonary Embolus, Tissue heart valves, Acute ME, Atrial Fibrillation, Valvular heart disease and recurrent Systemic Embolism. -International Normalized Ratio (INR): 2 .5 - 3.5 for Mechanical Prosthetic valve. Laboratory test finding (navigational concept) 23.4 s 1 1.0-15.5 Above high normal [facility] (Bolivar Sotomayor MD) ID Date Data Source [id number] 10/11/2020 06:39:00 AM EDT [facility] (Bolivar Sotomayor MD) Name Value Range Interpretation Code Description Data Vivian rce(s) Supporting Document(s) Magnesium [Mass/volume] in Serum or Plasma 2.0 mg/dL 1.7-2.2 [facility] (Bolivar Sotomayor MD) ID Date Data Source [id number] 10/11/2020 06:39:00 AM EDT [facility] (Bolivar Sotomayor MD) Name Value Range Interpretation Code Description Data Vivian rce(s) Supporting Document(s) Iron [Mass/volume] in Serum or Plasma 31 ug/dL 42-135 Below low normal [facility] (Bolivar Sotomayor MD) ID Date Data Source [id number] 10/11/2020 06:39:00 AM EDT [facility] (Bolivar Sotomayor MD) Name Value Range Interpretation Code Description Data Vivian rce(s) Supporting Document(s) Laboratory test finding (navigational concept) Laboratory test result [facility] (Bolivar Sotomayor MD) COMPREHENSIVE METABOLIC PANEL Laboratory test finding (navigational concept) 143 meq/L 134-153 [facility] (Bolivar Sotomayor MD) Laboratory test finding (navigational concept) 37 meq/L 22-30 Above high normal [facility] (Bolivar Sotomayor MD) Laboratory test finding (navigational concept) 3.9 meq/L 3.6-5.0 [facility] (Bolivar Sotomayor MD) Laboratory test finding (navigational concept) 97 meq/L 98-107 Below low normal [facility] (Bolivar Sotomayor MD) Laboratory test finding (navigational concept) 133 mg/dL 7 0-99 Above high normal [facility] (Bolivar Sotomayor MD) Laboratory test finding (navigational concept) 21 mg/dL 7-21 [facility] (Bolivar Sotomayor MD) Laboratory test finding (navigational concept) 1.3 mg/dL 0.7-1.5 [facility] (Bolivar Sotomayor MD) Laboratory test finding (navigational concept) 16 8-27 [facility] (Bolivar Sotomayor MD) Laboratory test finding (navigational concept) 3.6 g/dL 3 .9-5.0 Below low normal [facility] (Bolivar Sotomayor MD) Laboratory test finding (navigational concept) 6.1 g/dL 6 .3-8.2 Below low normal [facility] (Bolivar Sotomayor MD) Laboratory test finding (navigational concept) 2.5 GM/DL 2.4-3.2 [facility] (Bolivar Sotomayor MD) Laboratory test finding (navigational concept) 8.3 mg/dL 8 .4-10.2 Below low normal [facility] (Bolivar Sotomayor MD) Laboratory test finding (navigational concept) 1.4 0.8-2.0 [facility] (Bolivar Sotomayor MD) Laboratory test finding (navigational concept) 280 U/L 38-126 Above high normal [facility] (Bolivar Sotomayor MD) Laboratory test finding (navigational concept) 1.0 mg/dL 0.2-1.3 [facility] (Bolivar Sotomayor MD) Laboratory test finding (navigational concept) 14 U/L 7-56 [facility] (Bolivar Sotomayor MD) Laboratory test finding (navigational concept) 21 U/L 5-40 [facility] (Bolivar Sotomayor MD) Laboratory test finding (navigational concept) 42 mL/min [facility] (Bolivar Sotomayor MD) Laboratory test finding (navigational concept) 9.0 mmol/L 8.0-16.0 [facility] (Bolivar Sotomayor MD) Laboratory test finding (navigational concept) 80 yrs [facility] (Bolivar Sotomayor MD) Laboratory test finding (navigational concept) Laboratory test result [facility] (Bolivar Sotomayor MD) Male GFR Interprentation 20-49 yrs >60 mL/min Normal 50-59 yrs >56 mL/min Normal 60-69 yrs >49 mL/min Normal 70-79yrs >42 mL/min Normal 80 and above >35 mL/min Normal Female GFR Interpretation 20-39 yrs >60 mL/min Normal 40-49 yrs >58 mL/min Normal 50-59 yrs >51 mL/min Normal 60-69 yrs >45 mL/min Normal 70-79 yrs >39 mL/min Normal 80 and above >32 mL/min Normal ID Date Data Source [id number] 10/11/2020 12:12:00 PM EDT [facility] Name Value Range Interpretation Code Description Data Vivian rce(s) Supporting Document(s) Iron [Mass/volume] in Serum or Plasma 31 UG/DL 42 - 135 L [facility] ID Date Data Source [id number] 10/11/2020 07:43:00 AM EDT [facility] Name Value Range Interpretation Code Description Data Vivian rce(s) Supporting Document(s) COMPREHENSIVE METABOLIC PANEL [facility] COMPREHENSIVE METABOLIC PANEL Sodium [Moles/volume] in Serum or Plasma 143 mEq/L 134 - 153 [facility] Potassium [Moles/volume] in Serum or Plasma 3.9 mEq/L 3.6 - 5.0 [facility] Chloride [Moles/volume] in Serum or Plasma 97 mEq/L 98 - 107 L [facility] Carbon dioxide, total [Moles/volume] in Serum or Plasma 37 MEQ/L 22 - 30 H [facility] Glucose [Mass/volume] in Serum or Plasma 133 MG/DL 70 - 99 H [facility] BUN 21 MG/DL 7 - 21 [facility] Creatinine [Mass/volume] in Serum or Plasma 1.3 MG/DL 0.7 - 1.5 [facility] BUN/CREAT 16 8 - 27 [facility] Protein [Mass/volume] in Serum or Plasma 6.1 G/DL 6.3 - 8.2 L [facility] Albumin [Mass/volume] in Serum or Plasma 3.6 G/DL 3.9 - 5.0 L [facility] Globulin [Mass/volume] in Serum by calculation 2.5 GM/DL 2.4 - 3.2 [facility] A/G RATIO 1.4 0.8 - 2.0 [facility] Calcium [Mass/volume] in Serum or Plasma 8.3 MG/DL 8.4 - 10.2 L [facility] Bilirubin.total [Mass/volume] in Serum or Plasma 1.0 MG/DL 0.2 - 1.3 [facility] Alkaline phosphatase [Enzymatic activity/volume] in Serum or Plasma 280 U/L 38 - 126 H [facility] Aspartate aminotransferase [Enzymatic activity/volume] in Serum or Plasma 21 U/L 5 - 40 [facility] Alanine aminotransferase [Enzymatic activity/volume] in Seru m or Plasma 14 U/L 7 - 56 [facility] Anion gap 3 in Serum or Plasma 9.0 mmol/L 8.0 - 16.0 [facility] AGE 80 yrs [facility] al NON-AA GFR 42 mL/min [facility] iggy AFR AMER GFR >60 [facility] Male GFR In terprentation 20-49 yrs >60 mL/min Normal 50-59 yrs >56 mL/min Normal 60-69 yrs >49 mL/min Normal 70-79yrs >42 mL/min Normal 80 and above >35 mL/min Normal Female GFR Interpretation 20-39 yrs >60 mL/min Normal 40-49 yrs >58 mL/min Normal 50-59 yrs >51 mL/min Normal 60-69 yrs >45 mL/min Normal 70-79 yrs >39 mL/min Normal 80 and above >32 mL/min Normal ID Date Data Source [id number] 10/11/2020 07:40:00 AM EDT [facility] Name Value Range Interpretation Code Description Data Vivian rce(s) Supporting Document(s) Magnesium [Mass/volume] in Serum or Plasma 2.0 MG/DL 1.7 - 2.2 [facility] ID Date Data Source [id number] 10/11/2020 07:13:00 AM EDT [facility] Name Value Range Interpretation Code Description Data Vivian rce(s) Supporting Document(s) Prothrombin time (PT) 23.4 SECONDS 11.0 - 15.5 [facility] INR in Platelet poor plasma by Coagulation assay 2.05 0.93 - 1. 23 H [facility] \\BLDo\\INR INTERPRETATION\\BLDx\\ Therapeutic range for Coumadin and related oral anticoagulants. - International Normalized Ratio (INR): 2.0 - 3.0 for Venous Thrombosis, Pulmonary Embolus, Tissue heart valves, Acute ME, Atrial Fibrillation, Valvular heart disease and recurrent Systemic Embolism. -International Normalized Ratio (INR): 2.5 - 3.5 for Mechanical Prosthetic valve. ID Date Data Source [id number] 10/11/2020 07:11:00 AM EDT [facility] Name Value Range Interpretation Code Description Data [facility](s) Supporting Document(s) CBC W/AUTOMATED DIFF [facility] COMPLETE BLOOD COUNT Leukocytes [#/volume] in Blood by Automated count 7.8 10^3/uL 4.2 - 1 1.0 [facility] Erythrocytes [#/volume] in Blood by Automated count 3.93 10^6/uL 4. 20 - 5.40 L [facility] Hemoglobin [Mass/volume] in Blood 12.3 g/dL 12.0 - 16.0 [facility] Hematocrit [Volume Fraction] of Blood by Automated count 37.7 % 3 7.0 - 47.0 [facility] Erythrocyte mean corpuscular volume [Entitic volume] by Auto mated count 95.9 fL 81.0 - 101 [facility] Erythrocyte mean corpuscular hemoglobin [Entitic mass] by Automated count 31.3 pg 27.0 - 34.0 [facility] Erythrocyte mean corpuscular hemoglobin concentration [Mass/volume] by Automated count 32.6 g/dL 31.0 - 36.0 [facility] Erythrocyte distribution width [Ratio] by Automated count 16.8 % 11.5 - 14.5 H [facility] Platelets [#/volume] in Blood by Automated count 184 10^3/uL 150 - 45 0 [facility] Platelet mean volume [Entitic volume] in Blood by Automated count 10.8 fL 7.4 - 10.4 H [facility] Neutrophils/100 leukocytes in Blood by Automated count 69.8 % 37. 0 - 80.0 [facility] Lymphocytes/100 leukocytes in Blood by Manual count 15.2 % 25.0 - 40.0 L [facility] Monocytes/100 leukocytes in Blood by Automated count 11.7 % 3.0 - 8.0 H [facility] Eosinophils/100 leukocytes in Blood by Automated count 2.8 % 0.0 - 7.0 [facility] Basophils/100 leukocytes in Blood by Automated count 0.4 % 0.0 - 2.5 [facility] %IG 0.1 % 0.0 - 0.0 H [facility] %NRBC 0.0 % 0.0 - 0.0 [facility] al Neutrophils [#/volume] in Blood by Automated count 5.42 10^3/uL 2.00 - 6.90 [facility] Lymphocytes [#/volume] in Blood by Automated count 1.18 10^3/uL 0.60 - 3.40 [facility] Monocytes [#/volume] in Blood by Automated count 0.91 10^3/uL 0.00 - 0.90 H [facility] Eosinophils [#/volume] in Blood by Automated count 0.22 10^3/uL 0.00 - 0.70 [facility] Basophils [#/volume] in Blood by Automated count 0.03 10^3/uL 0.00 - 0.20 [facility] #IG 0.01 10^3/uL 0.00 - 0.10 [facility] ospital #NRBC 0.00 10^3/uL 0.00 - 0.00 [facility] MANUAL DIFF NOT INDICATED [facility] RBC MORPH NOT INDICATED [facility] spital ID Date Data Source [id number] 10/10/2020 06:31:00 AM EDT [facility] (Bolivar Sotomayor MD) Name Value Range Interpretation Code Description Data [facility](s) Supporting Document(s) Troponin T.cardiac [Mass/volume] in Serum or Plasma 0.06 ng/mL 0.00-0 .10 [facility] (Bolivar Sotomayor MD) TROPONIN T 0.1 ng/ml Recommended as the clinical th reshold value for Troponin T. Thyrotropin [Units/volume] in Serum or Plasma by Detec tion limit <= 0.005 mIU/L 16.18 uIU/mL 0.47-5.01 Above high normal [facility] (Bolivar Sotomayor MD) Thyroxine (T4) free [Mass/volume] in Serum or Plasma 0.90 ng/dL 0.93-1.70 Below low normal [facility] (Bolivar Sotomayor MD) ID Date Data Source [id number] 10/10/2020 06:31:00 AM EDT [facility] (Bolivar Sotomayor MD) Name Value Range Interpretation Code Description Data [facility](s) Supporting Document(s) Laboratory test finding (navigational concept) Laboratory test result [facility] (Bolivar Sotomayor MD) LIPID PANEL Laboratory test finding (navigational concept) 83 mg/dL 1 31-200 Below low normal [facility] (Bolivar Sotomayor MD) Laboratory test finding (navigational concept) 72 mg/dL 35-160 [facility] (Bolivar Sotomayor MD) Laboratory test finding (navigational concept) 30 mg/dL 29-86 [facility] (Bolivar Sotomayor MD) Laboratory test finding (navigational concept) 45 mg/dL 65-175 Below low normal [facility] (Bolivar Sotomayor MD) Laboratory test finding (navigational concept) 1.50 1.47-3.22 [facility] (Bolivar Sotomayor MD) CVE RISK CHOL/HDL LDL/HDL MEN: 1/2 AVERAGE 3.43 1.00 AVERAGE 4.97 3.55 2X AVERAGE 9.55 6.25 3X AVERAGE 23.99 7.99 WOMEN: 1/2 AVERAGE 3.27 1.47 AVERAGE 4.44 3.22 2X AVERAGE 7.05 5.03 3X AVERAGE 11.04 6.14 Laboratory test finding (navigational concept) 2.8 3.2-4.4 Below low normal [facility] (Bolivar Sotomayor MD) ID Date Data Source [id number] 10/10/2020 06:31:00 AM EDT [facility] (Bolivar Sotomayor MD) Name Value Range Interpretation Code Description Data Vivian rce(s) Supporting Document(s) Laboratory test finding (navigational concept) Laboratory test result [facility] (Bolivar Sotomayor MD) COMPREHENSIVE METABOLIC PANEL Laboratory test finding (navigational concept) 3.4 meq/L 3 .6-5.0 Below low normal [facility] (Bolivar Sotomayor MD) Laboratory test finding (navigational concept) 144 meq/L 134-153 [facility] (Bolivar Sotomayor MD) Laboratory test finding (navigational concept) 40 meq/L 22-30 Above high normal [facility] (Bolivar Sotomayor MD) Laboratory test finding (navigational concept) 98 meq/L 98-107 [facility] (Bolivar Sotomayor MD) Laboratory test finding (navigational concept) 87 mg/dL 70-99 [facility] (Bolivar Sotomayor MD) Laboratory test finding (navigational concept) 1.3 mg/dL 0.7-1.5 [facility] (Bolivar Sotomayor MD) Laboratory test finding (navigational concept) 22 mg/dL 7-21 Above high normal [facility] (Bolivar Sotomayor MD) Laboratory test finding (navigational concept) 5.5 g/dL 6 .3-8.2 Below low normal [facility] (Bolivar Sotomayor MD) Laboratory test finding (navigational concept) 17 8-27 [facility] (Bolivar Sotomayor MD) Laboratory test finding (navigational concept) 2.2 GM/DL 2 .4-3.2 Below low normal [facility] (Bolivar Sotomayor MD) Laboratory test finding (navigational concept) 3.3 g/dL 3 .9-5.0 Below low normal [facility] (Bolivar Sotomayor MD) Laboratory test finding (navigational concept) 8.2 mg/dL 8 .4-10.2 Below low normal [facility] (Bolivar Sotomayor MD) Laboratory test finding (navigational concept) 1.5 0.8-2.0 [facility] (Bolivar Sotomayor MD) Laboratory test finding (navigational concept) 0.7 mg/dL 0.2-1.3 [facility] (Bolivar Sotomayor MD) Laboratory test finding (navigational concept) 247 U/L 38-126 Above high normal [facility] (Bolivar Sotomayor MD) Laboratory test finding (navigational concept) 21 U/L 5-40 [facility] (Bolivar Sotomayor MD) Laboratory test finding (navigational concept) 14 U/L 7-56 [facility] (Bolivar Sotomayor MD) Laboratory test finding (navigational concept) 6.0 mmol/L 8 .0-16.0 Below low normal [facility] (Bolivar Sotomayor MD) Laboratory test finding (navigational concept) 80 yrs [facility] (Bolivar Sotomayor MD) Laboratory test finding (navigational concept) 42 mL/min [facility] (Bolivar Sotomayor MD) Laboratory test finding (navigational concept) Laboratory test result [facility] (Bolivar Sotomayor MD) Male GFR Interprentation 20-49 yrs >60 mL/min Normal 50-59 yrs >56 mL/min Normal 60-69 yrs >49 mL/min Normal 70-79yrs >42 mL/min Normal 80 and above >35 mL/min Normal Female GFR Interpretation 20-39 yrs >60 mL/min Normal 40-49 yrs >58 mL/min Normal 50-59 yrs >51 mL/min Normal 60-69 yrs >45 mL/min Normal 70-79 yrs >39 mL/min Normal 80 and above >32 mL/min Normal ID Date Data Source [id number] 10/10/2020 06:31:00 AM EDT [facility] (Bolivar Sotomayor MD) Name Value Range Interpretation Code Description Data Vivian rce(s) Supporting Document(s) Natriuretic peptide.B prohormone N-Terminal [Mass/volu me] in Serum or Plasma 7701 pg/mL 0-450 Above high normal [facility] (Bolivar Sotomayor MD) Cobalamin (Vitamin B12) [Mass/volume] in Serum or Plasma 587 pg/mL 2 32-1245 [facility] (Bolivar Sotomayor MD) Magnesium [Mass/volume] in Serum or Plasma 2.2 mg/dL 1.7-2.2 [facility] (Bolivar Sotomayor MD) Iron [Mass/volume] in Serum or Plasma 33 ug/dL 42-135 Below low normal [facility] (Bolivar Sotomayor MD) ID Date Data Source [id number] 10/10/2020 06:31:00 AM EDT [facility] (Bolivar Sotomayor MD) Name Value Range Interpretation Code Description Data Vivian rce(s) Supporting Document(s) Laboratory test finding (navigational concept) Laboratory test result [facility] (Bolivar Sotomayor MD) COMPLETE BLOOD COUNT Laboratory test finding (navigational concept) 3.83 10^6/uL 4 .20-5.40 Below low normal [facility] (Bolivar Sotomayor MD) Laboratory test finding (navigational concept) 7.1 10^3/uL 4.2-11.0 [facility] (Bolivar Sotomayor MD) Laboratory test finding (navigational concept) 12.0 g/dL 12.0-16.0 [facility] (Bolivar Sotomayor MD) Laboratory test finding (navigational concept) 37.2 % 37.0-47.0 [facility] (Bolivar Sotomayor MD) Laboratory test finding (navigational concept) 97.1 fL 81.0-101 [facility] (Bolivar Sotomayor MD) Laboratory test finding (navigational concept) 31.3 pg 27.0-34.0 [facility] (Bolivar Sotomayor MD) Laboratory test finding (navigational concept) 32.3 g/dL 31.0-36.0 [facility] (Bolivar Sotomayor MD) Laboratory test finding (navigational concept) 17.0 % 1 1.5-14.5 Above high normal [facility] (Bolivar Sotomayor MD) Laboratory test finding (navigational concept) 185 10^3/uL 150-450 [facility] (Bolivar Sotomayor MD) Laboratory test finding (navigational concept) 67.7 % 37.0-80.0 [facility] (Bolivar Sotomayor MD) Laboratory test finding (navigational concept) 11.7 fL 7 .4-10.4 Above high normal [facility] (Bolivar Sotomayor MD) Laboratory test finding (navigational concept) 14.4 % 2 5.0-40.0 Below low normal [facility] (Bolivar Sotomayor MD) Laboratory test finding (navigational concept) 13.5 % 3.0-8.0 Above high normal [facility] (Bolivar Sotomayor MD) Laboratory test finding (navigational concept) 0.3 % 0.0-2.5 [facility] (Bolivar Sotomayor MD) Laboratory test finding (navigational concept) 4.0 % 0.0-7.0 [facility] (Bolivar Sotomayor MD) Laboratory test finding (navigational concept) 0.0 % 0.0-0.0 [facility] (Bolivar Sotomayor MD) Laboratory test finding (navigational concept) 4.78 10^3/uL 2.00-6.90 [facility] (Bolivar Sotomayor MD) Laboratory test finding (navigational concept) 0.1 % 0.0-0.0 Above high normal [facility] (Bolivar Sotomayor MD) Laboratory test finding (navigational concept) 1.02 10^3/uL 0.60-3.40 [facility] (Bolivar Sotomayor MD) Laboratory test finding (navigational concept) 0.95 10^3/uL 0 .00-0.90 Above high normal [facility] (Bolivar Sotomayor MD) Laboratory test finding (navigational concept) 0.28 10^3/uL 0.00-0.70 [facility] (Bolivar Sotomayor MD) Laboratory test finding (navigational concept) 0.02 10^3/uL 0.00-0.20 [facility] (Bolivar Sotomayor MD) Laboratory test finding (navigational concept) 0.01 10^3/uL 0.00-0.10 [facility] (Bolivar Sotomayor MD) Laboratory test finding (navigational concept) 0.00 10^3/uL 0.00-0.00 [facility] (Bolivar Sotomayor MD) Laboratory test finding (navigational concept) Laboratory test result [facility] (Bolivar Sotomayor MD) Laboratory test finding (navigational concept) Laboratory test result [facility] (Bolivar Sotomayor MD) ID Date Data Source [id number] 10/10/2020 06:31:00 AM EDT [facility] (Bolivar Sotomayor MD) Name Value Range Interpretation Code Description Data Vivian rce(s) Supporting Document(s) Fibrin D-dimer [Presence] in Platelet poor plasma 2.91 ug/mL 0.27-0.50 Above high normal [facility] (Bolivar Sotomayor MD) ID Date Data Source [id number] 10/10/2020 06:31:00 AM EDT [facility] (Bolivar Sotomayor MD) Name Value Range Interpretation Code Description Data Vivina rce(s) Supporting Document(s) Laboratory test finding (navigational concept) 29.4 s 1 1.0-15.5 Above high normal [facility] (Bolivar Sotomayor MD) Laboratory test finding (navigational concept) 2.74 0 .93-1.23 Above high normal [facility] (Bolivar Sotomayor MD) \\BLDo\\INR INTERPRETATION\\BLDx\\ Therapeutic range for Coumadin and related oral anticoagulants. -International Normalized Ratio (INR): 2 .0 - 3.0 for Venous Thrombosis, Pulmonary Embolus, Tissue heart valves, Acute ME, Atrial Fibrillation, Valvular heart disease and recurrent Systemic Embolism. -International Normalized Ratio (INR): 2 .5 - 3.5 for Mechanical Prosthetic valve. ID Date Data Source [id number] 10/10/2020 11:06:00 AM EDT [facility] Name Value Range Interpretation Code Description Data Vivian rce(s) Supporting Document(s) Thyroxine (T4) free index in Serum or Plasma by calculation 0.90 NG/DL 0.93 - 1.70 L [facility] ID Date Data Source [id number] 10/10/2020 11:06:00 AM T [facility] Value Range Interpretation Code Description Data Vivian rce(s) Supporting Document(s) Thyrotropin [Units/volume] in Serum or Plasma by Detec tion limit <= 0.05 mIU/L 16.18 uIU/mL 0.47 - 5.01 H [facility] ID Date Data Source [id number] 10/10/2020 08:09:00 AM EDT [facility] Value Range Interpretation Code Description Data Vivian rce(s) Supporting Document(s) TROPONIN T 0.06 NG/ML 0.00 - 0.10 [facility] TROPONIN T0.1 ng/ml Recommended as the c linical threshold value forTroponin T. ID Date Data Source [id number] 10/10/2020 07:57:00 AM T [facility] Name Value Range Interpretation Code Description Data Vivian rce(s) Supporting Document(s) BNP 7701 PG/ML 0 - 450 H [facility] ID Date Data Source [id number] 10/10/2020 07:57:00 AM EDT [facility] Name Value Range Interpretation Code Description Data Vivian rce(s) Supporting Document(s) COMPREHENSIVE METABOLIC PANEL [facility] COMPREHENSIVE METABOLIC PANEL Sodium [Moles/volume] in Serum or Plasma 144 mEq/L 134 - 153 [facility] Potassium [Moles/volume] in Serum or Plasma 3.4 mEq/L 3.6 - 5.0 L [facility] Chloride [Moles/volume] in Serum or Plasma 98 mEq/L 98 - 107 [facility] Carbon dioxide, total [Moles/volume] in Serum or Plasma 40 MEQ/L 22 - 30 H [facility] Glucose [Mass/volume] in Serum or Plasma 87 MG/DL 70 - 99 [facility] BUN 22 MG/DL 7 - 21 H [facility] al Creatinine [Mass/volume] in Serum or Plasma 1.3 MG/DL 0.7 - 1.5 [facility] BUN/CREAT 17 8 - 27 [facility] Protein [Mass/volume] in Serum or Plasma 5.5 G/DL 6.3 - 8.2 L [facility] Albumin [Mass/volume] in Serum or Plasma 3.3 G/DL 3.9 - 5.0 L [facility] Globulin [Mass/volume] in Serum by calculation 2.2 GM/DL 2.4 - 3.2 L [facility] A/G RATIO 1.5 0.8 - 2.0 [facility] Calcium [Mass/volume] in Serum or Plasma 8.2 MG/DL 8.4 - 10.2 L [facility] Bilirubin.total [Mass/volume] in Serum or Plasma 0.7 MG/DL 0.2 - 1.3 [facility] Alkaline phosphatase [Enzymatic activity/volume] in Serum or Plasma 247 U/L 38 - 126 H [facility] Aspartate aminotransferase [Enzymatic activity/volume] in Serum or Plasma 21 U/L 5 - 40 [facility] Alanine aminotransferase [Enzymatic activity/volume] in Seru m or Plasma 14 U/L 7 - 56 [facility] Anion gap 3 in Serum or Plasma 6.0 mmol/L 8.0 - 16.0 L [facility] AGE 80 yrs [facility] al NON-AA GFR 42 mL/min [facility] AFR AMER GFR >60 [facility] Male GFR In terprentation 20-49 yrs >60 mL/min Normal 50-59 yrs >56 mL/min Normal 60-69 yrs >49 mL/min Normal 70-79yrs >42 mL/min Normal 80 and above >35 mL/min Normal Female GFR Interpretation 20-39 yrs >60 mL/min Normal 40-49 yrs >58 mL/min Normal 50-59 yrs >51 mL/min Normal 60-69 yrs >45 mL/min Normal 70-79 yrs >39 mL/min Normal 80 and above >32 mL/min Normal ID Date Data Source [id number] 10/10/2020 07:57:00 AM EDT [facility] Name Value Range Interpretation Code Description Data Vivian rce(s) Supporting Document(s) CVE PANEL [facility] al LIPID PANEL Cholesterol [Mass/volume] in Serum or Plasma 83 MG/DL 131 - 200 L [facility] Deprecated Triglyceride [Mass/volume] in Serum or Plasma 72 MG/DL 3 5 - 160 [facility] HDL 30 MG/DL 29 - 86 [facility] Cholesterol in LDL [Mass/volume] in Serum or Plasma by Direc t assay 45 mg/dL 65 - 175 L [facility] Cholesterol.total/Cholesterol in HDL [Mass Ratio] in Serum o r Plasma 2.8 3.2 - 4.4 L [facility] LDL/HDL 1.50 1.47 - 3.22 [facility] ital CVE RISK CHOL/HDL LDL/HDLMEN: 1/2 AVERAGE 3.43 1.00 AVERAGE 4.97 3.55 2X AVERAGE 9.55 6.25 3X AVERAGE 23.99 7.99WOMEN: 1/2 AVERAGE 3.27 1.47 AVERAGE 4.44 3.22 2X AVERAGE 7.05 5.03 3X AVERAGE 11.04 6.14 ID Date Data Source [id number] 10/10/2020 07:57:00 AM EDT [facility] Name Value Range Interpretation Code Description Data Vivian rce(s) Supporting Document(s) Iron [Mass/volume] in Serum or Plasma 33 UG/DL 42 - 135 L [facility] ID Date Data Source [id number] 10/10/2020 07:51:00 AM EDT [facility] Name Value Range Interpretation Code Description Data Vivian rce(s) Supporting Document(s) Cobalamin (Vitamin B12) [Mass/volume] in Serum or Plasma 587 PG/ML 232 - 1245 [facility] ID Date Data Source [id number] 10/10/2020 07:44:00 AM EDT [facility] Name Value Range Interpretation Code Description Data Vivian rce(s) Supporting Document(s) Magnesium [Mass/volume] in Serum or Plasma 2.2 MG/DL 1.7 - 2.2 [facility] ID Date Data Source [id number] 10/10/2020 07:21:00 AM EDT [facility] Name Value Range Interpretation Code Description Data Vivian rce(s) Supporting Document(s) CBC W/AUTOMATED DIFF [facility] COMPLETE BLOOD COUNT Leukocytes [#/volume] in Blood by Automated count 7.1 10^3/uL 4.2 - 1 1.0 [facility] Erythrocytes [#/volume] in Blood by Automated count 3.83 10^6/uL 4. 20 - 5.40 L [facility] Hemoglobin [Mass/volume] in Blood 12.0 g/dL 12.0 - 16.0 [facility] Hematocrit [Volume Fraction] of Blood by Automated count 37.2 % 3 7.0 - 47.0 [facility] Erythrocyte mean corpuscular volume [Entitic volume] by Auto mated count 97.1 fL 81.0 - 101 [facility] Erythrocyte mean corpuscular hemoglobin [Entitic mass] by Automated count 31.3 pg 27.0 - 34.0 [facility] Erythrocyte mean corpuscular hemoglobin concentration [Mass/volume] by Automated count 32.3 g/dL 31.0 - 36.0 [facility] Erythrocyte distribution width [Ratio] by Automated count 17.0 % 11.5 - 14.5 H [facility] Platelets [#/volume] in Blood by Automated count 185 10^3/uL 150 - 45 0 [facility] Platelet mean volume [Entitic volume] in Blood by Automated count 11.7 fL 7.4 - 10.4 H [facility] Neutrophils/100 leukocytes in Blood by Automated count 67.7 % 37. 0 - 80.0 [facility] Lymphocytes/100 leukocytes in Blood by Manual count 14.4 % 25.0 - 40.0 L [facility] Monocytes/100 leukocytes in Blood by Automated count 13.5 % 3.0 - 8.0 H [facility] Eosinophils/100 leukocytes in Blood by Automated count 4.0 % 0.0 - 7.0 [facility] Basophils/100 leukocytes in Blood by Automated count 0.3 % 0.0 - 2.5 [facility] %IG 0.1 % 0.0 - 0.0 H [facility] %NRBC 0.0 % 0.0 - 0.0 [facility] al Neutrophils [#/volume] in Blood by Automated count 4.78 10^3/uL 2.00 - 6.90 [facility] Lymphocytes [#/volume] in Blood by Automated count 1.02 10^3/uL 0.60 - 3.40 [facility] Monocytes [#/volume] in Blood by Automated count 0.95 10^3/uL 0.00 - 0.90 H [facility] Eosinophils [#/volume] in Blood by Automated count 0.28 10^3/uL 0.00 - 0.70 [facility] Basophils [#/volume] in Blood by Automated count 0.02 10^3/uL 0.00 - 0.20 [facility] #IG 0.01 10^3/uL 0.00 - 0.10 [facility]ital #NRBC 0.00 10^3/uL 0.00 - 0.00 [facility] MANUAL DIFF NOT INDICATED [facility] RBC MORPH NOT INDICATED [facility] ID Date Data Source [id number] 10/10/2020 07:20:00 AM EDT [facility] Name Value Range Interpretation Code Description Data Vivian rce(s) Supporting Document(s) Fibrin D-dimer FEU [Mass/volume] in Platelet poor plasma 2.91 ug /mL 0.27 - 0.50 H [facility] ID Date Data Source [id number] 10/10/2020 07:20:00 AM EDT [facility] Name Value Range Interpretation Code Description Data Vivian rce(s) Supporting Document(s) Prothrombin time (PT) 29.4 SECONDS 11.0 - 15.5 H [facility] INR in Platelet poor plasma by Coagulation assay 2.74 0.93 - 1. 23 H [facility] \\BLDo\\INR INTERPRETATION\\BLDx\\ Therapeutic range for Coumadin and related oral anticoagulants. - International Normalized Ratio (INR): 2.0 - 3.0 for Venous Thrombosis, Pulmonary Embolus, Tissue heart valves, Acute ME, Atrial Fibrillation, Valvular heart disease and recurrent Systemic Embolism. -International Normalized Ratio (INR): 2.5 - 3.5 for Mechanical Prosthetic valve. ID Date Data Source [id number] 10/09/2020 06:55:00 PM EDT [facility] (Bolivar Sotomayor MD) Name Value Range Interpretation Code Description Data Vivian rce(s) Supporting Document(s) Laboratory test finding (navigational concept) Laboratory test result [facility] (Bolivar Sotomayor MD) <content>_CULTURE URINE_</content>
<content>^$526036</content>
<content>^^368580</content>
<content>$$968468</content>
<content>^^360950</content>
<content>$$ 167875</content>
<content>$$926532</content>
<content>$$944095</content>
<content>$$ 131475</content>
<content>$$105981</content>
<content>$$408038</content>
<content> $$512311</content>
<content>$$113228</content>
<content>$$395485</conten t>
<content>$$481165</content>
<content>$$758109</content>
<content> $$901632</content>
<content>$$792820</content>
<content>$$243655</content>
<content>$$54030 0</content>
<content>$$180508</content>
<content>$$446780</content>
<content>$$892194</content>
<content>$$705495</content>
<content>$$882921</content>
<content>$$ 900845</content>
<content>$$890466</content>
<content>$$357116</content>
<content> ^^332621</content>
<content>$$778355</content>
<content>$$592167</conten t>
<content>$$807809</content>
<content></content>
<content>-- Continued on next page --</content>
<content>Patient: ANNA TOLigia Medina Order: [id number] Page 2</content>
<content>Culture: CULTURE URINE Status: Final</keira nt>
<content> < /content>
<content></content>
<content></content>
<content>-- Continued on next page --</content>
<content>Patient: ANNA ALLEN Carol Order: [id number] Page 2</content>
<content>Culture: CULTURE URINE Status: Prelim</content>
<content> < /content>
<content></content>
<content>$$749958</content>
<content>$ $886528</content>
<content></content>
<content>REPORTED DATE/TIME: 10/13/2020 14:07</content>
<content>Culture: CULTURE URINE Status: Final</content>
<content></content>
<content>Isolate 1 Escherichia coli Flag: A . . . . . . .1</content>
<content>10,000-25,000 colony forming units per mL</content>
<content>Cefazolin <=4 ug/mL</content>
<content>Cefazolin with an KACI <=16 predicts susceptibility to the oral agents</content>
<content>cefaclor, cefdinir, cefpodoxime, cefprozil, cefuroxime, cephalexin,</content>
<content>and loracarbef when used for therapy of uncomplicated urinary tract</content>
<content>infections due to E. coli, Klebsiella pneumoniae, and Proteus</content>
<content>mirabilis.</content>
<content> Previous result entered on 10/12/2020 07:27 ET </content>
<content>Gram negative rods</content>
<content>Urine Culture,Comprehensive: P1</content>
<content>Escherichia coli Flag: A</content>
<content></content>
<content></content>
<content> Patient: ANNA Medina Order: [id number] Page 3</content>
<content>Culture: CULTURE URINE Status: Final</content>
<content> < /content>
<content></content>
<content>ISOLATE 1 Escherichia coli</content>
<content></content>
<content>Isolate 1</content>
<content>Antibiotic KACI Int</content>
<content>Units ug/mL</content>
<content> < /content>
<content></content>
<content>Amoxicillin/Clavulanic Acid S S . . . . . .20-8</content>
<content>Ampicillin S S . . . . . .28-1</content>
<content>Cefepime S S . . . . . .6644-9</content>
<content>Ceftriaxone S S . . . . . .141-2</content>
<content>Cefuroxime S S . . . . . .145-3</content>
<content>Ciprofloxacin S S . . . . . .185-9</content>
<content>Ertapenem S S . . . . . .66706-1</content>
<content>Gentamicin S S . . . . . .267-5</content>
<content>Imipenem S S . . . . . .279-0</content>
<content>Levofloxacin S S . . . . . .21982-6</content>
<content>Meropenem S S . . . . . .6652-2</content>
<content>Nitrofurantoin S S . . . . . .363-2</content>
<content>Piperacillin/Tazobactam S S . . . . . .412-7</content>
<content>Tetracycline S S . . . . . .496-0</content>
<content>Tobramycin S S . . . . . .508-2</content>
<content>Trimethoprim/Sulfa S S . . . . . .516-5</content>
<content></content>
<content>P1 Test performed by: [facility] Karla SANDERS #: [id number]</content>
<content>[address]</content>
<content>[id number]</content>
<content>[place] [id number]</content>
<content>[employer] : Sae Pena MD NPI #:</content>
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
<content>10/12/20.28.XMT.SENT REF</content>
<content>10/13/20.1418.XMT.SENT REF</content>
<content>10/13/20.1418. .to MANUEL HERRMANN via modem</content>
<content>10/13/20.1418. .to NAUN MTZ via fax</content>
<content></content>
<content></content> ID Date Data Source [id number] 10/09/2020 06:55:00 PM EDT [facility] (Bolivar Sotomayor MD) Name Value Range Interpretation Code Description Data Vivian rce(s) Supporting Document(s) Hemoglobin A1c/Hemoglobin.total in Blood 8.7 % 4.4-6.1 Above high normal [facility] (Bolivar Sotomayor MD) {A1] {HB] Magnesium [Mass/volume] in Serum or Plasma 2.2 mg/dL 1.7-2.2 [facility] (Bolivar Sotomayor MD) Troponin T.cardiac [Mass/volume] in Serum or Plasma 0.05 ng/mL 0.00-0 .10 [facility] (Bolivar Sotomayor MD) TROPONIN T 0.1 ng/ml Recommended as the clinical th reshold value for Troponin T. ID Date Data Source [id number] 10/09/2020 06:55:00 PM EDT [facility] (Bolivar Sotomayor MD) Name Value Range Interpretation Code Description Data Vivian rce(s) Supporting Document(s) Laboratory test finding (navigational concept) 29.0 s 1 1.0-15.5 Above high normal [facility] (Bolivar Sotomayor MD) Laboratory test finding (navigational concept) 2.69 0 .93-1.23 Above high normal [facility] (Bolivar Sotomayor MD) \\BLDo\\INR INTERPRETATION\\BLDx\\ Therapeutic range for Coumadin and related oral anticoagulants. -International Normalized Ratio (INR): 2 .0 - 3.0 for Venous Thrombosis, Pulmonary Embolus, Tissue heart valves, Acute ME, Atrial Fibrillation, Valvular heart disease and recurrent Systemic Embolism. -International Normalized Ratio (INR): 2 .5 - 3.5 for Mechanical Prosthetic valve. ID Date Data Source [id number] 10/13/2020 02:19:00 PM EDT [facility] Name Value Range Interpretation Code Description Data Vivian rce(s) Supporting Document(s) CULTURE URINE [facility] spital _CULTURE URINE_$$[id number]$$[id number]$$[id number]$$448845$$123116$$348691$$844362$$612111$$470223$$ 757924$$824189$$446605$$712762$$663417$$858470$$520418$$213516$$588698$$182005$$ 432808$$843791$$211870$$363566$$339187$$049316$$798535$$292458 -- Continued on next page --Patient: ANNA Medina Order: Page 2Culture: CULTURE URINE Status: Final ==== -- Continued on next page --Patient: ANNA Medina Order: Page 2Culture: CULTURE URINE Status: Prelim =====$$[id number]$$[id number] DATE/TIME: 10/13/2020 14:07Culture: CULTURE URINE Status: FinalIsolate 1 Escherichia coli Flag: A . . . . . . .110,000-25,000 colony forming units per mLCefazolin <=4 ug/mLCefazolin with an KACI <=16 predicts susceptibility to the oral agentscefaclor, cefdinir, cefpodoxime, cefprozil, cefuroxime, cephalexin,and loracarbef when used for therapy of uncomplicated urinary tractinfections due to E. coli, Klebsiella pneumoniae, and Proteusmirabilis. Previous result entered on 10/12/2020 07:27 ET Gram negative rodsUrine Culture,Comprehensive: [id number] coli Flag: APatient: ANNA Medina Order: Page 3Culture: CULTURE URINE Status: Final ISOLATE 1 Escherichia coli Isolate 1Antibiotic KACI IntUnits ug/mL ----Amoxicillin/Clavulanic Acid S S . . . . . .20-8Ampicillin S S . . . . . .28-1Cefepime S S . . . . . .6644-9Ceftriaxone S S . . . . . .141-2Cefuroxime S S . . . . . .145- 3Ciprofloxacin S S . . . . . .185-9Ertapenem S S . . . . . .62789-1Rbrwmkvczg S S . . . . . .267-5Imipenem S S . . . . . .279-0Levofloxacin S S . . . . . .17395-2Vyzlsjwrq S S . . . . . .6652-2Nitrofurantoin S S . . . . . .363-2Piperacillin/Tazobactam S S . . . . . .412-7Tetracycline S S . . . . . .496-0Tobramycin S S . . . . . .508-2Trimethoprim/Sulfa S S . . . . . 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 .to MANUEL HERRMANN via modem 10/13/20 .to NAUN MTZ via fax ID Date Data Source [id number] 10/09/2020 07:45:00 PM EDT [facility] Name Value Range Interpretation Code Description Data Vivian rce(s) Supporting Document(s) TROPONIN T 0.05 NG/ML 0.00 - 0.10 [facility] spital TROPONIN T0.1 ng/ml Recommended as the c linical threshold value forTroponin T. ID Date Data Source [id number] 10/09/2020 07:45:00 PM EDT [facility] Name Value Range Interpretation Code Description Data Vivian rce(s) Supporting Document(s) Hemoglobin A1c/Hemoglobin.total in Blood 8.7 % 4.4 - 6.1 H [facility] {A1]{HB] ID Date Data Source [id number] 10/09/2020 07:32:00 PM EDT [facility] Name Value Range Interpretation Code Description Data Vivian rce(s) Supporting Document(s) Magnesium [Mass/volume] in Serum or Plasma 2.2 MG/DL 1.7 - 2.2 [facility] ID Date Data Source [id number] 10/09/2020 07:27:00 PM EDT [facility] Name Value Range Interpretation Code Description Data Vivian rce(s) Supporting Document(s) Prothrombin time (PT) 29.0 SECONDS 11.0 - 15.5 H [facility] INR in Platelet poor plasma by Coagulation assay 2.69 0.93 - 1. 23 H [facility] \\BLDo\\INR INTERPRETATION\\BLDx\\ Therapeutic range for Coumadin and related oral anticoagulants. - International Normalized Ratio (INR): 2.0 - 3.0 for Venous Thrombosis, Pulmonary Embolus, Tissue heart valves, Acute ME, Atrial Fibrillation, Valvular heart disease and recurrent Systemic Embolism. -International Normalized Ratio (INR): 2.5 - 3.5 for Mechanical Prosthetic valve. ID Date Data Source [id number] 10/09/2020 01:49:00 PM EDT [facility] [address] [place] [address] PHONE: [phone] FAX: [phone] Name .................. : ANNA Medina Acct Number.................. : [id number] ROOM. ................. : [facility]02 MR Number ................... : [id number] Stay type ............. : E/R Discharge Date......... ... : Admit Date ......... : 10/09/20 Admit Phys .................... : SHALONDA Date of ....... : 1940 Family Phys ................... : [facility] Phone .................. : [phone] Age ................................ : 80 Film# .................. .:[id number] Sex ................................. : F Unsigned transcriptions are preliminary reports and do not represent a medical or legal document CHEST PORTABLE [id number] COMPLETE:10/09/20 12:36 04115 Reason(s): shortnessof breath CHEST PORTABLE, 10/09/20: INDICATION: Shortness of breath. Comparison 05/06/20. FINDINGS: No infiltrate or effusion. Stable mild cardiomegaly. Left-sided pacemaker. Patient is status post sternotomy. Atherosclerotic changes along the aorta. IMPRESSION: No significant change. No acute infiltrate. Stable cardiomegaly. Electronically Reviewed and Signed By Angel Luis Novoa DO , 10/09/20 13:49, TOÑA Transcribe Initials: SSR, Transcribe Date: 10/09/20 13:24, Dictation Date: Copy for: 010 EMERGENCY SRV Copy for: NAUN HARTLEY via fax Copy for: EMERGENCY DEPT via modem Copy for: [facility] REC Page 1 of 1 Name Value Range Interpretation Code Description Data Vivian rce(s) Supporting Document(s) ID Date Data Source [id number] 10/09/2020 12:19:00 PM EDT [facility] 1 OrderSheet [facility] Emergency Department [address] [place] [address] Phone #: ext- [phone] 10/09/2020 12:18 Patient: JOY DENT Sex: F : 1940 Age: 80yWEIGHT:94.3 kg (M) HEIGHT:61 inches BMI:39.3ALLERGIES: Aloe, PCN, PenicillinsCHIEF COMPLAINT: dyspnea, CHFDIAGNOSIS: Congestive heart failureLAB ORDERSOrder Description Priority Entered Acknowledged InitialedCBC w Diff STAT 12:36 10/09/2020 12:41 Gilberto Long Victoria John R.N. ;CMP STAT 12:36 10/09/2020 12:41 Gilberto Long Victoria John R.N. ;Lipase ST AT 12:36 10/09/2020 12:41 Gilberto Long Victoria John R.N. ;PT/PTT STAT 12:36 10/09/2020 12:41 Gilberto Long Victoria John R.N. ;Troponin-T STAT 12:36 10/09/2020 12:41 Gilberto Long Victoria John R.N. ;D- Dimer STAT 12:36 10/09/2020 12:41 Gilberto Long Victoria John R.N. ;BNP STAT 12:36 10/09/2020 12:41 Gilberto Long Victoria John R.N. 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 Amara Macias R.N.(Yes)) ; Reason for Study: shortnessof breathUS Lower Ext STAT 12:37 10/09/2020 12:41 Ethan,Venous Left Amara Macias R.N.(Oxygen? (Yes)) ; Reason for Study: Discolored Extremity, Swelling, LimbCT CTA CHEST STAT 13:39 10/09/2020 14:19 Ethan,(NONCOR) W CON Amara Macias R.N.INC PP (Oxygen? ;(Yes)) (IV?(Yes)) Reason for Study: shortness of breath elevaed d dimer r/o PEMEDICATION/IV/DRIP/FLUID ORDERSOrder Description Priority Entered Acknowledged InitialedLasix IVP 40 mg 14:26 10/09/2020 14:33 Ethan(NOW) Amara Macias R.N. ;GENERAL ORDERSOrder Description Priority Entered Acknowledged InitialedBlood Pressure 12:36 10/09/2020 12:37 Amara [facility] ; [id number] Monitor 12:36 10/09/2020 12:37 [place] [facility](continuous) [facility] ; [id number] 12:36 10/09/2020 12:37 [place] [facility] ; [id number] 12:36 10/09/2020 12:40 Gilberto Mcfarland Victoria Lisa RN ;Obtain Old EKG 12:36 10/09/2020 12:40 Gilberto Mcfarland Victoria Lisa RN ;Obtain Old Records 12:36 10/09/2020 12:40 Bartolo, 3 OrderSheet [facility] Emergency Department [address] [place] [address] Phone #: ext- [phone] 10/09/2020 12:18 Patient: JOY DENT Sex: F : 1940 Age: 80y Amara Macias RN ;Oxygen (2 L/min) 12:36 10/09/2020 12:41 Ethan(NC) (Titrate to O2 Amara Macias R.N.Sat >95%) ;Oxygen titrate to 12:10/09/2020 12:41 Ethan,92% Amara Macias R.N. ;Pulse oximeter 12:36 10/09/2020 12:41 Ethan(Continuous) Amara Macias R.N. ;Saline Lock 12:36 10/09/2020 12:42 Gilberto Long Victoria John R.N. ;Vitals 12:10/09/2020 12:37 [place] ED Amara Macias [facility] ER ; Tech1[Electronically signed by Srinivas Long R.N. (16:27 10/09/2020)][Electronically signed by Amara Macias (16:44 10/09/2020)][Electronically locked by Srinivas Long R.N. (16:27 10/09/2020)] Name Value Range Interpretation Code Description Data Vivian rce(s) Supporting Document(s) ID Date Data Source [id number] 10/09/2020 12:19:00 PM EDT [facility] 1 Medication Reconciliation Report [facility] Emergency Department [address] [place] [address] Phone #: ext- [phone] 10/09/2020 12:18 Patient: JOY DENT Sex: F : 1940 Age: 80yWeight: 94.3 kgHeight/Length: 61 in.BMI: 39.3ALLERGIES: Aloe, PCN, PenicillinsThe patient's Home Medications are listed below:THE FOLLOWING MEDICATIONS NEED TO BE RECONCILED: Allopurinol Oral 100 mg, 2x a day Aspirin Oral 81 mg, daily Bumetanide Oral (1 mg) 1 tablet, 2x a day busPIR one HCl Oral (7.5 mg) 1 tablet, 2x a day Calcitriol Oral (0.25 mcg) 1 capsule, daily Carvedilol Oral (6.25 mg) 1 tablet, 2x a day CoQ-10 Oral (100 mg) 1 capsule, daily Ferrous Gluconate Oral (324 (38 Fe) mg) 1 tablet, 2x a day Lipitor Oral (80 mg) 1 tablet, daily, at bedtime Lyrica Oral (75 mg) 1 capsule, 2x a day Omeprazole Oral 20 mg, daily Plavix Oral 75 mg, daily Synthroid Oral (100 mcg) 1 tablet, daily Toujeo SoloStar Subcutaneous (300 unit/mL) 35 units, daily Vitamin c Oral (500 mg) 1 tablet, daily 2 Medication Reconciliation Report [facility] Emergency Department [address] [place] [address] Phone #: ext- [phone] 10/09/2020 12:18 [id number] Sex: F : 1940 Age: 80y Vitamin D-3 Oral 2000, daily Warfarin Sodium Oral (3 mg) 1 tablet, dailyThe source(s) of the original Home Medication information:patientEMSThe following Medications were given to the patient in the Emergency Department:Lasix [IVP] IVP 40 mg, administered: 14:33 10/09/2020The following Medications were prescribed to the patient:None. Name Value Range Interpretation Code Description Data Vivian rce(s) Supporting Document(s) ID Date Data Source [id number] 10/09/2020 12:19:00 PM EDT [facility] 1 Medication Administration Record [facility] Emergency Department [address] [place] [address] Phone #: ext- [phone] 10/09/2020 12:18 Patient: JOY DENT Sex: F : 1940 Age: 80yWeight: 94.3 kgHeight/Length: 61 inBMI: 39.3ALLERGIES: Aloe, PCN, Penicillins Date/Time Medication Administered Medication OrderedGiven LASIX [IVP] Lasix IVP 40 mg (NOW)14:33 10/09/2020 Dose: 40 mg Srinivas Yoo R.N. Site: 1 [facility] Name Value Range Interpretation Code Description Data Vivian rce(s) Supporting Document(s) ID Date Data Source [id number] 10/09/2020 12:19:00 PM EDT [facility] 1 General Instructions [facility] Emergency Department [address] [place] [address] Phone #: ext- [phone] 10/09/2020 12:18 Patient: JOY DENT Sex: F : 1940 Age: 80yAcute moderate systolic, left ventricular congestive heart failure.(Electronically signed by Amara Macias 10/09/2020 16:44) Name Value Range Interpretation Code Description Data Vivian rce(s) Supporting Document(s) ID Date Data Source [id number] 10/09/2020 12:19:00 PM EDT [place] [address] Clinical Report - Nurses [facility] Emergency Department [address] [place] [address] Phone #: [phone]- [phone] 10/09/2020 12:18 Patient: JOY DENT Sex: F : 1940 Age: 80yTRIAGEArrived by EMS. Historian: patient. ( pt arrives via [facility]. Pt c/o SOB and some confusion x a fw dayswith worsening sx today. Pt has some b/l lower ext edema present. Pt also c/o dizziness with movement. Ptarrives with a 20g inright AC.).Triage time: 12:20 10/09/2020. Acuity: LEVEL 2.Chief Complaint: SHORTNESS OF BREATH.Alert. No acute distress.Onset. (a few days but worse today). ( pt alert and oriented. pt has paced rhythm noted on monitor).Treatment DATA BASE ADMINISTRATOR:None. --12:26 10/09/20 Leni Parks RDulce Maria12:20 10/09/20. BP: 153/47. HR: 60. RR: 13. O2 saturation: 98%. Temp: 96.9 F. Pain level now 0/10.--12:26 10/09/20 Leni Parks R.N.Weight: 94.3 kg measured. Height/Length: 61 inches. BMI: 39.3. --12:20 10/09/20 Leni Parks R.N.MedicationsAllopurinol Oral 100 mg, 2x a day. --12:23 10/09/20 Leni Parks R.N. Aspirin Oral 81 mg, daily. Bumetanide Oral (Tablet 1 mg) 1 tablet, 2x a day. busPIRone HCl Oral (Tablet 7.5 mg) 1 tablet, 2x a day. Calcitriol Oral (Capsule 0.25 mcg) 1 capsule, daily. Carvedilol Oral (Tablet 6.25 mg) 1 tablet, 2x a day. CoQ-10 Oral (Capsule 100 mg) 1 capsule, daily. Ferrous Gluconate Oral (Tablet 324 (38 Fe) mg) 1 tablet, 2x a day. Lipitor Oral (Tablet 80 mg) 1 tablet, daily at bedtime. Lyrica Oral (Capsule 75 mg) 1 capsule, 2x a day. Omeprazole Oral 20 mg, daily. Plavix Oral 75 mg, daily. Synthroid Oral (Tablet 100 mcg) 1 tablet, daily. Toujeo SoloStar Subcutaneous (Solution Pen-injector 300 unit/mL) 35 units, daily. Vitamin c Oral (Tablet 500 mg) 1 tablet, daily. Vitamin D-3 Oral 2000, daily. Warfarin Sodium Oral (Tablet 3 mg) 1 tablet, daily. --12:23 10/09/20 Leni Parks R.N.AllergiesAloe. 2 Clinical Report - Nurses [facility] Emergency Department [address] [place] [address] Phone #: ext- [phone] 10/09/2020 12:18 [id number] Sex[facility] F : 1940 Age: 80y PCN. Penicillins. --12:23 10/09/20 Leni Parks R.N. Medication/allergy information source: the patient and patient's previous visit record and EMS. --12:26 10/09/20 Leni Parks R.N. History PAST MEDICAL HX: Immunizations: status is unknown. SOCIAL HX: Never smoker. No alcohol use or drug use. She was offered HIV testing but declined and hepatitis C testing but declined. She has not traveled outside the [place] Infectious disease exposure: No infectious disease exposure. SELF HARM ASSESSMENT: Self harm assessment was performed. The patient answered "no" to the question(s) "Have you recently felt down, depressed, or hopeless?", "Do you have thoughts of harming or killing yourself?", "Do you have a plan for harming or killing yourself?", "Have you recently had thoughts about harming or killing others?", "Do you have any dangerous items in your possession?", "Have you noticed less interest or pleasure in doing things?", "Are you here because you tried to hurt yourself?" and "Have you ever tried to hurt yourself before today?". ABUSE ASSESSMENT: Abuse assessment. No suspicion of abuse. No report of abuse. NUTRITIONAL RISK ASSESSMENT: The nutritional risk assessment revealed no deficiencies. FUNCTIONAL ASSESSMENT: Functional assessment: no impairments noted. LEARNING NEEDS ASSESSMENT: The learning needs assessment revealed no barriers. FALL RISK ASSESSMENT: Fall risk assessment completed per protocol; uses walker at home. SKIN INTEGRITY ASSESSMENT: Skin integrity risk assessment completed. No skin integrity risk identified. --12:26 10/09/20 Leni Parks R.N.PHYSICAL ASSESSMENTGENERAL / NEURO / PSYCH: Alert. Oriented X 4. Appears in no acute distress.RESPIRATORY: Mild respiratory distress. Respirations not labored. Breath sounds within normal limits.CVS: Cardiac rhythm: ventricular pacing.SKIN: Skin is warm and dry. --12:31 10/09/20 Srinivas Long R.N.NURSING PROGRESS NOTESThe plan of care for this patient has been created. Monitoring of patient in place. Patient gowned. Headof bed elevated. Reassurance given. Two patient identifiers checked. Call light placed in reach. Siderails up x 1. Bed placed in lowest position. Brakes of bed on. Patient ready for evaluation. --12: Leni Parks R.N. 3 Clinical Report - Nurses [facility] Emergency Department [address] [place] [address] Phone #: ext- [phone] 10/09/2020 12:18 Patient: JOY DENT Sex: F : 1940 Age: 80yReassurance given to the patient. The patient is calm and resting quietly. ( found both pedal pulses withdoppler left leg feels warmer than right.).RESPIRATORY: No respiratory distress. Call light placed in reach of patient. Bed placed in lowestposition. Brakes of chair on. --12:43 10/09/20 Srinivas Long R.N.12:43 10/09/20. BP: 153/47. MAP: 82. HR: 60. RR: 16. O2 saturation: 99% at 2 liters/minute. Temp:deferred. Pain level now: 0/10. --12:43 10/09/20 Srinivas Long R.N.13:17 10/09/20. BP: 161/90. MAP: 113. HR: 60. RR: 15. O2 saturation: 100%. --13:18 10/09/20 Milka Oliva ER Ybdn433:26 10/09/20. BP: 165/56. MAP: 92. HR: 60. RR: 14. O2 saturation: 100%. --13:26 10/09/20 Milka Oliva ER Icoi1Osa patient is calm and resting quietly. Overall patient status is the same- she states feels the same.Side rails up x 2. Bed placed in lowest position. --13:44 10/09/20 Srinivas Long R.N.13:57 10/09/20. HR: 60. RR: 17. O2 saturation: 100%. --13:58 10/09/20 [facility] [id number] is resting quietly and sleeping. Overall patient status is improved. --14:24 10/09/20 Srinivas Long R.N.14:33 10/09/2020 Site #1 started prior to arrival by EMS via IV in the left antecubital space with an 20gangiocath; one attempt. --14:33 10/09/20 Srinivas Long R.N.14:33 10/09/2020 Lasix IVP 40 mg given over 3 minute(s) via site #1. --14:33 10/09/20 Srinivas Long R.N.14:35 10/09/20. BP: 109/53. MAP: 71. HR: 60. RR: 13. O2 saturation: 100%. --14:35 10/09/20 [facility] Milka, ER Tech1( up to restorrom with ass). --14:47 10/09/20 Srinivas Long R.N.15:01 10/09/20. BP: 162/80. MAP: 107. HR: 60. RR: 12. O2 saturation: 100%. --15:01 10/09/20 [facility], ER Copp325:30 10/09/20. BP: 164/67. MAP: 99. HR: 66. RR: 13. O2 saturation: 100%. --15:53 10/09/20 [facility] Milka, ER Njka329:58 10/09/20. BP: 159/74. MAP: 102. HR: 60. RR: 19. O2 saturation: 97%. --15:58 10/09/20 [facility] Milka ER Tech1.Intake OutputUrine output: 250 mL with return of yellow-colored urine. --14:59 10/09/20 Srinivas Lnog R.N. 4 Clinical Report - Nurses [facility] Emergency Department [address] [place] [address] Phone #: ext- [phone] 10/09/2020 12:18 - [facility]: [id number] Sex: F : 1940 Age: 80yDISPOSITION / DISCHARGE Report was given to a nurse in person. Report included information regarding patient's treatment and condition including: recent changes and current vital signs. Report included treatment information regarding medications given or pending. All questions were answered. Report was acknowledged. --16:27 10/09/20 Srinivas Long R.N. 16:26 10/09/20. BP: 114/74. MAP: 87. HR: 60. RR: 16. O2 saturation: 98% at 2 liters/minute. Temp: deferred. Pain level now: 0/10. --16:27 10/09/20 Srinivas Long R.N. Departure time: 16:27 10/09/2020. --16:27 10/09/20 Srinivas Long R.N.Locked/Released at 10/09/2020 16:27 by Srinivas Long R.N. Name Value Range Interpretation Code Description Data Vivian rce(s) Supporting Document(s) ID Date Data Source [id number] 10/09/2020 12:19:00 PM EDT [facility] 1 Clinical Report - Physicians/Mid Levels [facility] Emergency Department [address] [place] [address] Phone #: ext- [phone] 10/09/2020 12:18 [facility]: [id number] Sex: F : 1940 Age: 80y Time Seen: 12:31 10/09/2020; initial patient contact, initial documentation. Arrived- By ambulance. Historian- patient and EMS personnel. Disposition decision: 14:31 10/09/2020.HISTORY OF PRESENT ILLNESS Chief Complaint: DYSPNEA and HISTORY OF CONGESTIVE HEART FAILURE. 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 It was gradual in onset and has been constant. The dyspnea is described as moderate and is worsened by cough and is improved with oxygen. The patient has had a cough, chest discomfort, dyspnea on exertion, foot swelling and paroxysmal nocturnal dyspnea. No sputum production, fever, sweating episodes, wheezing or chills. No calf pain, anxiety, dizziness, tingling or numbness. (patient has a history of CHF and is on 2 liters of o2 daily has been increasing shortnessof breath x 1 week and has been confused x 2 weeks when she wakes up in the morning. she denies any chest pains. she states that her legs were also swollen left > right and is warm to touch. she is not ambulatory).REVIEW OF SYSTEMSThe patient has not had weight loss. No muscle aches, eye irritation, sore throat, sinus drainage ornausea. No vomiting, abdominal pain, diarrhea, black stools or bloody stools. No headache, faintingepisodes, blurred vision, difficulty with urination or excessive urination. No skin rash, joint pain, missedperiods, abnormal bleeding or irregular periods. Denies current . All other systems reviewedand are negative.PAST HISTORYSee nurses notes. Problems: Dizziness. Diabetes Mellitus. Cystitis. Arrhythmia. 8 cardiac stents. Anxiety Reaction. Carotid artery occlusion. Congestive Heart Failure. Chest Pain. Neurological Disease. Nephropathy. Peripheral Vascular Disease. Renal Failure. Heart Disease. Fever. 2 Clinical Report - Physicians/Mid Levels [facility] Emergency Department [address] [place] [address] Phone #: ext- [phone] 10/09/2020 12:18 Patient: JOY DENT Sex: F : 1940 Age: 80y Emphysema. Hypercholesterolemia. Lung Disease. Irregular heart rate. Hypertension. Additional Surgeries: Angioplasty of vein. (Left leg) Cardiac stents 10. Cardiac Surgery. (Stents) Cholecystectomy. Hysterectomy. Pacemaker. PPM. Stents in left leg [12/18/2018]. Valve Replacement. Medications: Aspirin Oral 81 mg, daily. Bumetanide Oral (Tablet 1 mg) 1 tablet, 2x a day. busPIRone HCl Oral (Tablet 7.5 mg) 1 tablet, 2x a day. Calcitriol Oral (Capsule 0.25 mcg) 1 capsule, daily. Carvedilol Oral (Tablet 6.25 mg) 1 tablet, 2x a day. CoQ-10 Oral (Capsule 100 mg) 1 capsule, daily. Ferrous Gluconate Oral (Tablet 324 (38 Fe) mg) 1 tablet, 2x a day. Lipitor Oral (Tablet 80 mg) 1 tablet, daily at bedtime. Lyrica Oral (Capsule 75 mg) 1 capsule, 2x a day. Omeprazole Oral 20 mg, daily. Plavix Oral 75 mg, daily. Synthroid Oral (Tablet 100 mcg) 1 tablet, daily. Toujeo SoloStar Subcutaneous (Solution Pen-injector 300 unit/mL) 35 units, daily. Vitamin c Oral (Tablet 500 mg) 1 tablet, daily. Vitamin D-3 Oral 2000, daily. Warfarin Sodium Oral (Tablet 3 mg) 1 tablet, daily. Allopurinol Oral 100 mg, 2x a day. Allergies: Aloe. PCN. Penicillins.SOCIAL HISTORYNever smoker. No alcohol use or drug use.ADDITIONAL NOTES 3 Clinical Report - Physicians/Mid Levels [facility] Emergency Department [address] [place] [address] Phone #: ext- [phone] 10/09/2020 12:18 Patient: JOY DENT Sex: F : 1940 Age: 80y The nursing notes have been reviewed.PHYSICAL EXAMVital Signs: 10/09/2020 12:43 BP: 153/47. MAP: 82. HR: 60. RR: 16. O2 saturation: 99% at 2liters/minute. Pain level now: 0/10.10/09/2020 12:20 BP: 153/47. MAP: 82. HR: 60. RR: 13. O2 saturation: 98%. Temp: 96.9 F. Have beenreviewed. Oxygen saturation normal.Appearance: Alert. No acute distress.Eyes: Pupils equal, round and reactive to light. Eyes normal inspection.Neck: Normal inspection. No jugular venous distention. Neck supple.CVS: Normal heart rate and rhythm. Heart sounds normal. Pulses normal.Respiratory: No respiratory distress. Mildly decreased air movement in the bases bilaterally. Painlessinspiration. No splinting, wheezes, stridor, crackles or chest wall tenderness.Abdomen: Soft and nontender. No organomegaly. Obese.Back: Normal inspection. No CVA tenderness.Skin: Skin warm and dry. Normal skin color. No rash. Normal skin turgor.Extremities: Extremities exhibit normal ROM. (the left lower extremity is warmer compared to the right.this is also more swollen. intact dorsalis pedis B/l. no calf tenderness).Neuro: Oriented X 3. No motor deficit. No sensory deficit.LABS, X- RAYS, AND EKGEKG: EKG time: 12:25 10/09/2020. ventricular paced @ 60/min. EKG unchanged when compared withprior EKG. (05/07/2020). The study has been interpreted contemporaneously by me. The EKG appearsto be a good tracing. The study has not been independently viewed by me. Interpretation time: 12:.Chest X-ray: (Bright garcia Brian - 10/09/2020 1:12:16 PM No significant change. No infiltrate. Stable mild cardiomegaly). The X-rays were interpreted by the radiologist. CTA Pulmonary Arteries: Jorge tabares Neal - 10/09/2020 2:22:09 PM 1. No pulmonary embolism 2. Small bilateral pleural effusions, right greater than left. 3. Cardiomegaly, coronary disease 4. Partially visualized cirrhosis and mild ascites. The study was interpreted by the radiologist. Laboratory Tests: US Lower Ext Venous Left: (KATELYN: 10/09/2020 12:37) ( MsgRcvd 10/09/2020 13:51) Final results Exam* * [place] [address] PHONE: [phone] FAX: [phone] Clinical Report - Physicians/Mid Levels [facility] Emergency Department [address] [place] [address] Phone #: ext- [phone] 10/09/2020 12:18 Patient: JOY DENT Sex: F : 1940 Age: 80y Name .................. : ANNA Medina Acct Number.................. : [id number] ROOM. ................. : TR- 02 MR Number ................... : [id number] Stay type ............. : E/R Discharge Date......... ... : Admit Date ......... : 10/09/20 Admit Phys .................... : GILBERTO Date of ....... : 1940 Family Phys ................... : NAUN MTZ Phone .................. : [phone] Age ................................ : 80 Film# .................. .:[id number] Sex ................................. : F Unsigned transcriptions are preliminary reports and do not represent a medical or legal document US DOPPLER UNILATERAL VENOUS [id number] COMPLETE:10/09/20 13:06 KNB [id number] Reason(s): Discolored Extremity Swelling, Limb LEFT LEG VENOUS DOPPLER, 10/09/20: INDICATION: Discolored extremity, swelling. Comparison 07/08/14. FINDINGS: There is normal compressibility of the deep venous system from the external iliac through the popliteal vein with normal augmentation identified. IMPRESSION: No evidence for any underlying DVT. Electronically Reviewed and Signed By Angel Luis Novoa DO , 10/09/20 13:49, TOÑA Transcribe Initials: SSR, Transcribe Date: 10/09/20 13:22, Dictation Date: Copy for: 010 EMERGENCY SRV Copy for: NAUN HARTLEY via fax Copy for: EMERGENCY DEPT via modem Copy for: [facility] MED REC Page 1of 1CBC w Diff: (KATELYN: 10/09/2020 12:44) ( MsgRcvd 10/09/2020 13:03) Final results Test Result Flag Units (Reference) CBC W/AUTOMATED DIFF COMPLETE BLOOD COUNT WBC 8.3 10/uL (4.2 - 11.0) RBC 4.08 L 10/uL (4.20 - 5.40) HEMOGLOBIN 12.7 g/dL (12.0 - 16.0) HEMATOCRIT 39.3 % (37.0 - 47.0) MCV 96.3 fL (81.0 - 101) MCH 31.1 pg (27.0 - 34.0) MCHC 32.3 g/dL (31.0 - 36.0) 5 Clinical Report - Physicians/Mid Levels [facility] Emergency Department [address] [place] [address] Phone #: ext- [phone] 10/09/2020 12:18 Patient: JOY DENT Sex: F : 1940 Age: 80y RDW 16.9 H % (11.5 - 14.5) PLATELETS 187 10/uL (150 - 450) MPV 11.6 H fL (7.4 - 10.4) NEUT 73.7 % (37.0 - 80.0) LYMPH 13.8 L % (25.0 - 40.0) MONO 10.8 H % (3.0 - 8.0) EOS 0.5 % (0.0 - 7.0) BASO 0.5 % (0.0 - 2.5) %IG 0.7 H % (0.0 - 0.0) %NRBC 0.0 % (0.0 - 0.0) #NEUT 6.12 10/uL (2.00 - 6.90) #LYMPH 1.15 10/uL (0.60 - 3.40) #MONO 0.90 10/uL (0.00 - 0.90) #EOS 0.04 10/uL (0.00 - 0.70) #BASO 0.04 10/uL (0.00 - 0.20) #IG 0.06 10/uL (0.00 - 0.10) #NRBC 0.00 10/uL (0.00 - 0.00) MANUAL DIFF NOT INDICATED RBC MORPH NOT INDICATEDCMP: (KATELYN: 10/09/2020 12:44) ( MsgRcvd 10/09/2020 13:41) Final results Test Result Flag Units (Reference) COMPREHENSIVE METABOLIC PANEL COMPREHENSIVE METABOLIC PANEL SODIUM 141 mEq/L (134 - 153) POTASSIUM 4.2 mEq/L (3.6 - 5.0) CHLORIDE 96 L mEq/L (98 - 107) CO2 35 H MEQ/L (22 - 30) GLUCOSE 140 H MG/DL (70 - 99) BUN 26 H MG/DL (7 - 21) CREATININE 1.4 MG/DL (0.7 - 1.5) BUN /CREAT 19 (8 - 27) TOTAL PROTEIN 6.0 L G/DL (6.3 - 8.2) ALBUMIN 3.8 L G/DL (3.9 - 5.0) GLOBULIN 2.2 L GM/DL (2.4 - 3.2) A/G RATIO 1.7 (0.8 - 2.0) CALCIUM 8.8 MG/DL (8.4 - 10.2) TOTAL BILI 0.9 MG/DL (0.2 - 1.3) ALKALINE PHOS 304 H U/L (38 - 126) SGOT/AST 28 U/L (5 - 40) SGPT/ALT 17 U/L (7 - 56) ANION GAP 10.0 mmol/L (8.0 - 16.0) AGE 80 yrs NON-AA GFR 38 mL/min AFR AMER GFR >60 Male GFR Interprentation 20-49 yrs >60 mL/min Uarkgz49-95 yrs >56 mL/min Normal 60-69 yrs >49 mL/min Normal 70-79yrs>42 mL/min Normal 80 and above >35 mL/min Normal Female GFRInterpretation 20-39 yrs >60 mL/min Normal 40-49 yrs >58 mL/minNormal 50-59 yrs >51 mL/min Normal 60-69 yrs >45 mL/min Mqbksu74-00 yrs >39 mL/min Normal 80 and above >32 mL/min NormalLipase: (KATELYN: 10/09/2020 12:44) ( MsgRcvd 10/09/2020 13:36) Final results Test Result Flag Units (Reference) LIPASE 18 U/L (13 - 60)PT/PTT: (KATELYN: 10/09/2020 12:44) ( MsgRcvd 10/09/2020 13:03) Final results 6 Clinical Report - Physicians/Mid Levels [facility] Emergency Department [address] [place] [address] Phone #: ext- [phone] 10/09/2020 12:18 Patient: JOY DENT Sex: F : 1940 Age: 80y Test Result Flag Units (Reference) PROTIME 27.7 H SECONDS (11.0 - 15.5) INR 2.54 H (0.93 - 1.23) PTT 45.4 H SECONDS (24.8 - 36.7) \\BLDo\\INR INTERPRETATION\\BLDx\\ Therapeutic range for Coumadin andrelated oral anticoagulants. -International Normalized Ratio (INR): 2.0 - 3.0 for VenousThrombosis, Pulmonary Embolus, Tissue heart valves, Acute ME Atrial Fibrillation, Valvular heart diseaseand recurrent Systemic E mbolism. -International Normalized Ratio (INR): 2.5 - 3.5 forMechanical Prosthetic valve.Troponin-T: (KATELYN: 10/09/2020 12:44) ( [facility] 10/09/2020 13:10) Final results Test Result Flag Units (Reference) TROPONIN T 0.05 NG/ML (0.00 - 0.10) TROPONIN T0.1 ng/ml Recommended as the clinical threshold value forTroponin T.D-Dimer: (KATELYN: 10/09/2020 12:44) ( [facility] 10/09/2020 13:03) Final results Test Result Flag Units (Reference) D- DIMER QUANT 3.05 H ug/mL (0.27 - 0.50)BNP: (KATELYN: 10/09/2020 12:44) ( [facility] 10/09/2020 13:42) Final results Test Result Flag Units (Reference) BNP 9595 H PG/ML (0 - 450)Chest Portable 1 View: (KATELYN: 10/09/2020 12:36) ( MsgRcvd 10/09/2020 13:51) Final results Exam CHEST PORTABLE [facility] [address] [place] [address] PHONE: [phone] FAX: [phone] Name .................. : ANNA Medina Acct Number.................. : [id number] ROOM. ................. : TR-02 MR Number ................... : [id number] Stay type ............. : E/R Discharge Date......... ... : Admit Date ......... : 10/09/20 [facility] Date of ....... : 1940 Family Phys ................... : NAUN MTZ Phone .................. : [phone] Age ................................ : 80 Film# .................. .:[id number] Sex ................................. : F Unsigned transcriptions are preliminary reports and do not represent a medical or legal document CHEST PORTABLE [id number] COMPLETE:08/26 12:36 [id number] Reason(s): shortnessof breath CHEST PORTABLE, 10/09/20: INDICATION: Shortness of breath. Comparison 05/06/20. FINDINGS: No infiltrate or effusion. Stable mild cardiomegaly. Left-sided pacemaker. Patient is status post sternotomy. Atherosclerotic changes along the aorta. IMPRESSION: 7 Clinical Report - Physicians/Mid Levels [facility] Emergency Department [address] [place] [address] Phone #: ext- [phone] 10/09/2020 12:18 Patient: JOY DENT Sex: F : 1940 Age: 80y No significant change. No acute infiltrate. Stable cardiomegaly. Electronically Reviewed and Signed By Angel Luis Novoa DO , 10/09/20 13:49, TOÑA Transcribe Initials: SSR, Transcribe Date: 10/09/20 13:24, Dictation Date: Copy for: 010 EMERGENCY SRV Copy for: NAUN CONLEYH via fax Copy for: EMERGENCY DEPT via modem Copy for: 710 MED REC Page 1 of 1.PROGRESS AND PROCEDURESCourse of Care: 12:58 10/09/20. states that she had angioplasty on the left leg recently 14:26 10/09/20. patient has an elevated BNP as well as d dimer Us of the left lower extremity did not show DVT. sent her for CTA of the chest and given lasix 40 mg IVP 14:30 10/09/20. CTA showed B/l plural effusion r>left no PE. will call Dr Condon to admit the patient. Critical care performed (45 minutes). Time is exclusive of separately billable procedures. Time includes: direct patient care, patient reassessment, interpretation of data (pulse oximetry and chest xrays), review of patient's medical records, medical consultation, family consultation regarding treatment decisions and documentation of patient care- see progress notes. Disposition: Observation in the Acute Inpatient Unit, Monitored. UTI (catheter associated) was not present prior to being placed in observation. Surgical site infection was not present prior to being placed in observation. Blood incompatibility was not present prior to being placed in observation. Condition: good and stable. Observation decision based on lack of improvement, further evaluation and monitoring.CLINICAL IMPRESSION Acute moderate systolic, left ventricular congestive heart failure. 8 Clinical Report - Physicians/Mid Levels [facility] Emergency Department [address] [place] [address] Phone #: ext- [phone] 10/09/2020 12:18 Patient: JOY DENT Sex: F : 1940 Age: 80y(Electronically signed by Amara Macias 10/09/2020 16:44) Name Value Range Interpretation Code Description Data Vivian rce(s) Supporting Document(s) ID Date Data Source [id number] 10/09/2020 12:19:00 PM EDT [facility] Addenda for JOY DENT Carol Aleman RN: [id number] VisitID: [id number] Date: 15:27faxed med rec to remote solutions @ 15:25 with T systems ovewrview(Electronically signed by Hai Fung 10/09/2020 15:27)10/09/2020 16:19faxed med rec with T system over view @ 15:38(Electronically signed by Hai Fung 10/09/2020 16:19) Name Value Range Interpretation Code Description Data Vivian rce(s) Supporting Document(s) ID Date Data Source [id number] 10/09/2020 02:38:00 PM EDT [facility] Name Value Range Interpretation Code Description Data Vivian rce(s) Supporting Document(s) COVID19 Case rprt NOT DETECTED [facility] This lab was ordered by [facility] and reported by [facility]. ID Date Data Source [id number] 10/09/2020 02:59:00 PM EDT [facility] NOT DETECTEDNOT DETECTED{ PROC EDURAL CONTROL VALID KIT LOT # _[id number] 10/09/20.1458.DW . KIT EXP DATE _26-34-13 10/09/20.1458.DW . NORMAL RANGE IS NOT DETECTEDNEGATIVE RESULTS SHOULD BE TREATED PRESUMPTIVE AND, IF INCONSISTENT WITHCLINICAL SIGNS AND SYMPTOMS OR NECESSARY FOR PATIENT MANAGEMENT, SHOULD BETESTED WITH DIFFERENT AUTHORIZED OR CLEARED MOLECULAR TESTS. NEGATIVE RESULTSDO NOT PRECLUDE SARS-CoV-2 INFECTION AND SHOULD NOT BE USED THE SOLE BASISFOR PATIENT MANAGEMENT DECISIONS. Name Value Range Interpretation Code Description Data Vivian rce(s) Supporting Document(s) ID Date Data Source [id number] 10/09/2020 01:49:00 PM EDT [facility] [address] [place] [address] PHONE: [phone] FAX: [phone] Name .................. : ANNA Medina Acct Number.................. : [id number] ROOM. ................. : TR-02 Number ................... : [id number] Stay type ............. : E/R Discharge Date......... ... : Admit Date ......... : 10/09/20 Admit Phys .................... : GILBERTO Date of ....... : 1940 Family Phys ................... : NAUN MTZ Phone .................. : [phone] Age ................................ : 80 Film# .................. .:[id number] Sex ................................. : F Unsigned transcriptions are preliminary reports and do not represent a medical or legal document DOPPLER UNILATERAL VENOUS [id number] COMPLETE:10/09/20 13:06 KNB [id number] Reason(s): Discolored Ext remity LEFT LEG VENOUS DOPPLER, 10/09/20: INDICATION: Discolored extremity, swelling. Comparison 07/08/14. FINDINGS: There is normal compressibility of the deep venous system from the external iliac through the popliteal vein with normal augmentation identified. IMPRESSION: No evidence for any underlying DVT. Electronically Reviewed and Signed By Angel Luis Novoa DO , 10/09/20 13:49, TOÑA Transcribe Initials: [place], Transcribe Date: 10/09/20 13:22, Dictation Date: Copy for: 010 EMERGENCY SRV Copy for: NAUN HARTLEY via fax Copy for: EMERGENCY DEPT via modem Copy for: [facility] MED REC Page 1 of 1 Name Value Range Interpretation Code Description Data Vivian rce(s) Supporting Document(s) ID Date Data Source [id number] 10/09/2020 01:41:00 PM EDT [facility] Name Value Range Interpretation Code Description Data Vivian rce(s) Supporting Document(s) BNP 9595 PG/ML 0 - 450 H [facility] ID Date Data Source [id number] 10/09/2020 01:41:00 PM EDT [facility] Name Value Range Interpretation Code Description Data Vivian rce(s) Supporting Document(s) COMPREHENSIVE METABOLIC PANEL [facility] COMPREHENSIVE METABOLIC PANEL Sodium [Moles/volume] in Serum or Plasma 141 mEq/L 134 - 153 [facility] Potassium [Moles/volume] in Serum or Plasma 4.2 mEq/L 3.6 - 5.0 [facility] Chloride [Moles/volume] in Serum or Plasma 96 mEq/L 98 - 107 L [facility] Carbon dioxide, total [Moles/volume] in Serum or Plasma 35 MEQ/L 22 - 30 H [facility] Glucose [Mass/volume] in Serum or Plasma 140 MG/DL 70 - 99 H [facility] BUN 26 MG/DL 7 - 21 H [facility] Creatinine [Mass/volume] in Serum or Plasma 1.4 MG/DL 0.7 - 1.5 [facility] BUN/CREAT 19 8 - 27 [facility] al Protein [Mass/volume] in Serum or Plasma 6.0 G/DL 6.3 - 8.2 L [facility] Albumin [Mass/volume] in Serum or Plasma 3.8 G/DL 3.9 - 5.0 L [facility] Globulin [Mass/volume] in Serum by calculation 2.2 GM/DL 2.4 - 3.2 L [facility] A/G RATIO 1.7 0.8 - 2.0 [facility] Calcium [Mass/volume] in Serum or Plasma 8.8 MG/DL 8.4 - 10.2 [facility] Bilirubin.total [Mass/volume] in Serum or Plasma 0.9 MG/DL 0.2 - 1.3 [facility] Alkaline phosphatase [Enzymatic activity/volume] in Serum or Plasma 304 U/L 38 - 126 H [facility] Aspartate aminotransferase [Enzymatic activity/volume] in Serum or Plasma 28 U/L 5 - 40 [facility] Alanine aminotransferase [Enzymatic activity/volume] in Seru m or Plasma 17 U/L 7 - 56 [facility] Anion gap 3 in Serum or Plasma 10.0 mmol/L 8.0 - 16.0 [facility]GE 80 [facility]rs [facility] NON-AA [facility] 38 mL/min [facility] AFR AMER GFR >60 [facility] Male GFR In terprentation 20-49 yrs >60 mL/min Normal 50-59 yrs >56 mL/min Normal 60-69 yrs >49 mL/min Normal 70-79yrs >42 mL/min Normal 80 and above >35 mL/min Normal Female GFR Interpretation 20-39 yrs >60 mL/min Normal 40-49 yrs >58 mL/min Normal 50-59 yrs >51 mL/min Normal 60-69 yrs >45 mL/min Normal 70-79 yrs >39 mL/min Normal 80 and above >32 mL/min Normal ID Date Data Source [id number] 10/09/2020 01:36:00 PM EDT [facility] Name Value Range Interpretation Code Description Data Vivian rce(s) Supporting Document(s) Lipase [Enzymatic activity/volume] in Serum or Plasma 18 U/L 13 - 60 [facility] ID Date Data Source [id number] 10/09/2020 01:09:00 PM EDT [facility] Name Value Range Interpretation Code Description Data Vivian rce(s) Supporting Document(s) TROPONIN T 0.05 NG/ML 0.00 - 0.10 [facility] spital TROPONIN T0.1 ng/ml Recommended as the c linical threshold value forTroponin T. ID Date Data Source [id number] 10/09/2020 01:03:00 PM EDT [facility] Name Value Range Interpretation Code Description Data Vivian rce(s) Supporting Document(s) CBC W/AUTOMATED DIFF [facility] COMPLETE BLOOD COUNT Leukocytes [#/volume] in Blood by Automated count 8.3 10^3/uL 4.2 - 1 1.0 [facility] Erythrocytes [#/volume] in Blood by Automated count 4.08 10^6/uL 4. 20 - 5.40 L [facility] Hemoglobin [Mass/volume] in Blood 12.7 g/dL 12.0 - 16.0 [facility] Hematocrit [Volume Fraction] of Blood by Automated count 39.3 % 3 7.0 - 47.0 [facility] Erythrocyte mean corpuscular volume [Entitic volume] by Auto mated count 96.3 fL 81.0 - 101 [facility] Erythrocyte mean corpuscular hemoglobin [Entitic mass] by Automated count 31.1 pg 27.0 - 34.0 [facility] Erythrocyte mean corpuscular hemoglobin concentration [Mass/volume] by Automated count 32.3 g/dL 31.0 - 36.0 [facility] Erythrocyte distribution width [Ratio] by Automated count 16.9 % 11.5 - 14.5 H [facility] Platelets [#/volume] in Blood by Automated count 187 10^3/uL 150 - 45 0 [facility] Platelet mean volume [Entitic volume] in Blood by Automated count 11.6 fL 7.4 - 10.4 H [facility] Neutrophils/100 leukocytes in Blood by Automated count 73.7 % 37. 0 - 80.0 [facility] Lymphocytes/100 leukocytes in Blood by Manual count 13.8 % 25.0 - 40.0 L [facility] Monocytes/100 leukocytes in Blood by Automated count 10.8 % 3.0 - 8.0 H [facility] Eosinophils/100 leukocytes in Blood by Automated count 0.5 % 0.0 - 7.0 [facility] Basophils/100 leukocytes in Blood by Automated count 0.5 % 0.0 - 2.5 [facility] %IG 0.7 % 0.0 - 0.0 H [facility] %NRBC 0.0 % 0.0 - 0.0 [facility] al Neutrophils [#/volume] in Blood by Automated count 6.12 10^3/uL 2.00 - 6.90 [facility] Lymphocytes [#/volume] in Blood by Automated count 1.15 10^3/uL 0.60 - 3.40 [facility] Monocytes [#/volume] in Blood by Automated count 0.90 10^3/uL 0.00 - 0.90 [facility] Eosinophils [#/volume] in Blood by Automated count 0.04 10^3/uL 0.00 - 0.70 [facility] Basophils [#/volume] in Blood by Automated count 0.04 10^3/uL 0.00 - 0.20 [facility] #IG 0.06 10^3/uL 0.00 - 0.10 [facility] ospital #NRBC 0.00 10^3/uL 0.00 - 0.00 [facility] ospital MANUAL DIFF NOT INDICATED [facility] RBC MORPH NOT INDICATED [facility] spital ID Date Data Source [id number] 10/09/2020 01:03:00 PM EDT [facility] Name Value Range Interpretation Code Description Data Vivian rce(s) Supporting Document(s) Fibrin D-dimer FEU [Mass/volume] in Platelet poor plasma 3.05 ug /mL 0.27 - 0.50 H [facility] ID Date Data Source [id number] 10/09/2020 01:02:00 PM EDT [facility] Name Value Range Interpretation Code Description Data Vivian rce(s) Supporting Document(s) Prothrombin time (PT) 27.7 SECONDS 11.0 - 15.5 H [facility] INR in Platelet poor plasma by Coagulation assay 2.54 0.93 - 1. 23 H [facility] aPTT in Blood by Coagulation assay 45.4 SECONDS 24.8 - 36.7 H [facility] \\BLDo\\INR INTERPRETATION\\BLDx\\ Therapeutic range for Coumadin and related oral anticoagulants. - International Normalized Ratio (INR): 2.0 - 3.0 for Venous Thrombosis, Pulmonary Embolus, Tissue heart valves, Acute ME Atrial Fibrillation, Valvular heart disease and recurrent Systemic Embolism. - International Normalized Ratio (INR): 2.5 - 3.5 for Mechanical Prosthetic valve. ID Date Data Source [id number] 10/01/2020 08:39:42 AM EDT [facility] INFORMATIONPatient MRN Name Date of Age Gend*PT [id number] Joy Dent 1940 80 years F HOPPT Location Admission Date/Time Visit ID Attending Provider09/14/20 0919 --- --- EPI ID CSN Admitting Provider [id number] Toyin Lopez MD([id number])NAME: Joy Babb#: [id number] #: DATE: 09/14/2020 PT TYPE: C SURACCT #: [id number] : 1940 SEX: femaleReferring Physician:Primary Care Physician: AKASH CM, MDDISCHARGE DATE: 09/14/2020URGEON: Toyin Lopez MDASSISTANT: NonePREOPERATIVE DX: left lower extremity arterial atherosclerosis with rest pain.POSTOPERATIVE DX: left lower extremity arterial atherosclerosis with rest pain.PROCEDURE:1. right common femoral artery ultrasound-guided access.2. left lower extremity runoff.3. left superficial femoral artery balloon angioplasty, 4 mm balloon.4. left superficial femoral artery balloon angioplasty drug alluding ballloon, 4x 80 mm balloon.5. Completion angiogram.6. Closure of right common femoral artery using Mynx closure device.ANESTHESIA: Monitored sedation (Duration 30 minutes).COMPLICATIONS: None.SPECIMEN: None.ESTIMATED BLOOD LOSS: MinimalINDICATION: This is a 80 years year old female with a history of left arterialatherosclerosis, who presented with rest pain and was planned for angiogram andpossible endovascular intervention.DESCRIPTION OF PROCEDURE: After explaining the procedure to the patient andtaking written consent, the patient was taken to the endovascular suite.Patient was placed under conscious sedation using IV Versed and IV fentanyl.The right common femoral artery was accessed using 5-Japanese micropuncture kit,which was switched to a 5-Japanese sheath and Omni flush catheter was placed upand over the bifurcation into the left common femoral artery. left leg runoffwas done, which showed patent common femoral, patent profunda femoris artery.The superficial femoral artery has a proximal highly diseased area with 85%stenosi. The popliteal artery is diseased with a 2 -vessel diseased runoffdistally. Patient was given 5000 units ofheparin and up and over 5-Japanese sheath was placed and wire access was obtainedthrough the diseased region intothe left above-knee popliteal artery. Left superficial femoral artery balloonangioplasty was done with 4 mm balloon. Left superficial femoral artery balloonangioplasty was repeated with drug alluding ballloon, 4 x 80 mm balloon.Completion film showed resolution ofthat diseased area, patent popliteal artery with unchanged distal runoff. Thesheath was exchanged for a short 5-Japanese sheath. A Mynxclosure device was used to close the right groin arteriotomy. There was nobleeding or hematoma present. Patient was stable throughout the procedure Muriel was present throughout.Contrast : 14 Sandra Lopez MD Name Value Range Interpretation Code Description Data Vivian rce(s) Supporting Document(s) ID Date Data Source [id number] 09/14/2020 12:22:31 PM EDT [facility] Name Value Range Interpretation Code Description Data Vivian rce(s) Supporting Document(s) IR IS ARTERIOGRAM EXTREMITY SINGLE LEFT [facility] ID Date Data Source [id number] 09/14/2020 10:15:15 AM EDT [facility] Name Value Range Interpretation Code Description Data Vivian rce(s) Supporting Document(s) POC NOVA GLU 222 mg/dL (70-99) H [facility] [place] PERFORMED BY [facility] CLINICAL STAFF ID Date Data Source [id number] 09/14/2020 10:10:47 AM EDT [facility] Name Value Range Interpretation Code Description Data Vivian rce(s) Supporting Document(s) POC PTINR 1.3 [facility] judah CROOK SUGGESTED THERAPEUTIC RANGES USING INR F ORSTABILIZED ANTICOAGULATED PATIENTS:STANDARD DOSE THERAPY INR 2.0-3.0 DVT, PE, PREVENT DVT OR EMBOLISMHIGH DOSE THERAPY INR 2.5-3.5 PREVENT EMBOLISM FROM [facility]AN[facility]PER[facility] BY [facility] CLINICAL STAFF ID Date Data Source [id number] 09/10/2020 09:01:00 AM EDT [facility] Name Value Range Interpretation Code Description Data Vivian rce(s) Supporting Document(s) COVID-19 RT-PCR NASAL SWAB Not Detected Not Detected [facility] A not detected (negative) test result fo r this test means that SARS-CoV-2 RNA was not present in the specimen above the limit ofdetection. Laboratory test results should always be considered in thecontext of clinical observations and epidemiological data in making afinal diagnosis and patient management decisions. Results will bereported to government agencies as required.This test has received Emergency Use Authorization (EUA). We will continue to follow federal and state requirements for COVID-19 reporting. This test has been authorized only for the detection of RNAfrom SARS-CoV-2 virus and diagnosis of SARS-CoV-2 virus infection, notfor any other viruses or pathogens. This test is only authorized for the duration of the declaration that circumstances exist justifying the authorization of the emergency use of in vitro diagnostic tests for detection of SARS-CoV-2 virus and/or diagnosis of SARS-CoV-2 virusinfection under section 564(b)(1) of the Act, 21 U.S.C. section 360bbb-3(b)(1), unless the authorization is terminated or revoked sooner. We will continue to follow federal and state requirements for both notification of results and any confirmatory testing that is required by another agency. This test was developed and its performance characteristics determined by [facility] and verified at [employer]. It has not been cleared or approved by the U.S. Food and Drug Administration for diagnostic use. This test has been authorized by FDA under an EUA for use by authorized laboratories. Results should be used in conjunction with clinical findings, and should not form the sole basis for a diagnosis or treatment decision. Methods: SARS-CoV-2 Multiplex RT-PCR Assay ID Date Data Source [id number] 09/09/2020 10:15:00 AM EDT [facility] Name Value Range Interpretation Code Description Data Vivian rce(s) Supporting Document(s) SARS-CoV-2 (COVID-19) N gene [Presence] in Respiratory specimen by KIET with probe detection NEGATIVE [facility] This lab was ordered by Enrique Brock and reported by [employer]. ID Date Data Source [id number] 09/04/2020 10:41:00 AM EDT [facility] ([facility]) Name Value Range Interpretation Code Description Data Vivian rce(s) Supporting Document(s) Laboratory test finding (navigational concept) Laboratory test result [facility] ([facility]) BASIC METABOLIC PANEL Sodium 141 meq/L 134-153 [facility] ([facility] Chloride 97 meq/L 98-107 [facility] ([facility] Potassium 4.3 meq/L 3.6-5.0 [facility] ([facility] Co2 35 meq/L 22-30 [facility] ([facility] Glucose 198 mg/dL 70-99 [facility] ([facility] Creatinine 1.4 mg/dL 0.7-1.5 [facility] ([facility] BUN 25 mg/dL 7-21 [facility] ([facility] BUN/Creat 18 8-27 [facility] ([facility] Calcium 9.7 mg/dL 8.4-10.2 [facility] ([facility] Anion Gap 9.0 mmol/L 8.0-16.0 [facility] ([facility] Laboratory test finding (navigational concept) Laboratory test result [facility] ([facility]) Laboratory test finding (navigational concept) 80 yrs [facility] ([facility]) Laboratory test finding (navigational concept) 38 mL/min [facility] ([facility]) Male GFR Interprentation 20-49 yrs >60 mL/min Normal 50-59 yrs >56 mL/min Normal 60-69 yrs >49 mL/min Normal 70-79yrs >42 mL/min Normal 80 and above >35 mL/min Normal Female GFR Interpretation 20-39 yrs >60 mL/min Normal 40-49 yrs >58 mL/min Normal 50-59 yrs >51 mL/min Normal 60-69 yrs >45 mL/min Normal 70-79 yrs >39 mL/min Normal 80 and above >32 mL/min Normal ID Date Data Source [id number] 09/04/2020 10:41:00 AM EDT [facility]) Name Value Range Interpretation Code Description Data Vivian rce(s) Supporting Document(s) Protime 20.0 s 11.0-15.5 [facility] ([facility] PTT 38.6 s 24.8-36.7 [facility] ([facility]) \\BLDo\\INR INTERPRETATION\\BLDx\\ Therapeutic range for Coumadin and related oral anticoagulants. -International Normalized Ratio (INR): 2 .0 - 3.0 for Venous Thrombosis, Pulmonary Embolus, Tissue heart valves, Acute ME Atrial Fibrillation, Valvular heart disease and recurrent Systemic Embolism. -International Normalized Ratio (INR): 2 .5 - 3.5 for Mechanical Prosthetic valve. Inr 1.62 0.93-1.23 [facility] ([facility] ID Date Data Source [id number] 09/04/2020 10:41:00 AM EDT [facility] ([facility]) Name Value Range Interpretation Code Description Data Vivian rce(s) Supporting Document(s) Laboratory test finding (navigational concept) Laboratory test result [facility] ([facility]) COMPLETE BLOOD COUNT WBC 8.2 10^3/uL 4.2-11.0 [facility] ([facility] RBC 3.84 10^6/uL 4.20-5.40 [facility] ([facility]) Hemoglobin 12.1 g/dL 12.0-16.0 [facility] ([facility]) Hematocrit 38.0 % 37.0-47.0 [facility] ([facility] MCV 99.0 fL 81.0-101 [facility] ([facility] MCH 31.5 pg 27.0-34.0 [facility] ([facility] MCHC 31.8 g/dL 31.0-36.0 [facility] ([facility] RDW 16.4 % 11.5-14.5 [facility] ([facility] Neut 69.3 % 37.0-80.0 [facility] ([facility] MPV 11.8 fL 7.4-10.4 [facility] ([facility] Platelets 150 10^3/uL 150-450 [facility] ([facility]) Mcnairy 8.9 % 3.0-8.0 [facility] ([facility] Eos 3.2 % 0.0-7.0 [facility] ([facility] Lymph 17.8 % 25.0-40.0 [facility] ([facility] Baso 0.4 % 0.0-2.5 [facility] ([facility]) Laboratory test finding (navigational concept) 0.4 % 0.0-0.0 [facility] ([facility]) Laboratory test finding (navigational concept) 0.0 % 0.0-0.0 [facility] ([facility]) Laboratory test finding (navigational concept) 0.73 10^3/uL 0.00-0.90 [facility] ([facility]) Laboratory test finding (navigational concept) 1.45 10^3/uL 0.60-3.40 [facility] ([facility]) Laboratory test finding (navigational concept) 5.66 10^3/uL 2.00-6.90 [facility] ([facility]) Laboratory test finding (navigational concept) 0.03 10^3/uL 0.00-0.10 [facility] ([facility]) Laboratory test finding (navigational concept) 0.03 10^3/uL 0.00-0.20 [facility] ([facility]) Laboratory test finding (navigational concept) 0.26 10^3/uL 0.00-0.70 [facility] ([facility]) Laboratory test finding (navigational concept) Laboratory test result [facility] ([facility]) Laboratory test finding (navigational concept) 0.00 10^3/uL 0.00-0.00 [facility] ([facility]) Manual Diff Laboratory test result [facility] ([facility]) ID Date Data Source [id number] 09/04/2020 11:47:00 AM EDT [facility] Name Value Range Interpretation Code Description Data Vivian rce(s) Supporting Document(s) BASIC METABOLIC PANEL [facility] BASIC METABOLIC PANEL Sodium [Moles/volume] in Serum or Plasma 141 mEq/L 134 - 153 [facility] Potassium [Moles/volume] in Serum or Plasma 4.3 mEq/L 3.6 - 5.0 [facility] Chloride [Moles/volume] in Serum or Plasma 97 mEq/L 98 - 107 L [facility] Carbon dioxide, total [Moles/volume] in Serum or Plasma 35 MEQ/L 22 - 30 H [facility] Glucose [Mass/volume] in Serum or Plasma 198 MG/DL 70 - 99 H [facility] BUN 25 MG/DL 7 - 21 H [facility] Creatinine [Mass/volume] in Serum or Plasma 1.4 MG/DL 0.7 - 1.5 [facility] BUN/CREAT 18 8 - 27 [facility] Calcium [Mass/volume] in Serum or Plasma 9.7 MG/DL 8.4 - 10.2 [facility] Anion gap 3 in Serum or Plasma 9.0 mmol/L 8.0 - 16.0 [facility] AGE 80 yrs [facility] AFR AMER GFR >60 [facility] NON-AA GFR 38 mL/min [facility] Male GFR Inter prentation 20-49 yrs >60 mL/min Normal 50-59 yrs >56 mL/min Normal 60-69 yrs >49 mL/min Normal 70-79yrs >42 mL/min Normal 80 and above >35 mL/min Normal Female GFR Interpretation 20-39 yrs >60 mL/min Normal 40-49 yrs >58 mL/min Normal 50-59 yrs >51 mL/min Normal 60-69 yrs >45 mL/min Normal 70-79 yrs >39 mL/min Normal 80 and above >32 mL/min Normal ID Date Data Source [id number] 09/04/2020 11:02:00 AM EDT [facility] Name Value Range Interpretation Code Description Data Vivian rce(s) Supporting Document(s) Prothrombin time (PT) 20.0 SECONDS 11.0 - 15.5 H [facility] INR in Platelet poor plasma by Coagulation assay 1.62 0.93 - 1. 23 H [facility] aPTT in Blood by Coagulation assay 38.6 SECONDS 24.8 - 36.7 H [facility] \\BLDo\\INR INTERPRETATION\\BLDx\\ Therapeutic range for Coumadin and related oral anticoagulants. - International Normalized Ratio (INR): 2.0 - 3.0 for Venous Thrombosis, Pulmonary Embolus, Tissue heart valves, Acute ME Atrial Fibrillation, Valvular heart disease and recurrent Systemic Embolism. - International Normalized Ratio (INR): 2.5 - 3.5 for Mechanical Prosthetic valve. ID Date Data Source [id number] 09/04/2020 10:51:00 AM EDT [facility] Name Value Range Interpretation Code Description Data [facility]) Supporting Document(s) CBC W/AUTOMATED DIFF [facility] COMPLETE BLOOD COUNT Leukocytes [#/volume] in Blood by Automated count 8.2 10^3/uL 4.2 - 1 1.0 [facility] Erythrocytes [#/volume] in Blood by Automated count 3.84 10^6/uL 4. 20 - 5.40 L [facility] Hemoglobin [Mass/volume] in Blood 12.1 g/dL 12.0 - 16.0 [facility] Hematocrit [Volume Fraction] of Blood by Automated count 38.0 % 3 7.0 - 47.0 [facility] Erythrocyte mean corpuscular volume [Entitic volume] by Auto mated count 99.0 fL 81.0 - 101 [facility] Erythrocyte mean corpuscular hemoglobin [Entitic mass] by Automated count 31.5 pg 27.0 - 34.0 [facility] Erythrocyte mean corpuscular hemoglobin concentration [Mass/volume] by Automated count 31.8 g/dL 31.0 - 36.0 [facility] Erythrocyte distribution width [Ratio] by Automated count 16.4 % 11.5 - 14.5 H [facility] Platelets [#/volume] in Blood by Automated count 150 10^3/uL 150 - 45 0 [facility] Platelet mean volume [Entitic volume] in Blood by Automated count 11.8 fL 7.4 - 10.4 H [facility] Neutrophils/100 leukocytes in Blood by Automated count 69.3 % 37. 0 - 80.0 [facility] Lymphocytes/100 leukocytes in Blood by Manual count 17.8 % 25.0 - 40.0 L [facility] Monocytes/100 leukocytes in Blood by Automated count 8.9 % 3.0 - 8.0 H [facility] Eosinophils/100 leukocytes in Blood by Automated count 3.2 % 0.0 - 7.0 [facility] Basophils/100 leukocytes in Blood by Automated count 0.4 % 0.0 - 2.5 [facility] %IG 0.4 % 0.0 - 0.0 [facility] %NRBC 0.0 % 0.0 - 0.0 [facility] Neutrophils [#/volume] in Blood by Automated count 5.66 10^3/uL 2.00 - 6.90 [facility] Lymphocytes [#/volume] in Blood by Automated count 1.45 10^3/uL 0.60 - 3.40 [facility] Monocytes [#/volume] in Blood by Automated count 0.73 10^3/uL 0.00 - 0.90 [facility] Eosinophils [#/volume] in Blood by Automated count 0.26 10^3/uL 0.00 - 0.70 [facility] Basophils [#/volume] in Blood by Automated count 0.03 10^3/uL 0.00 - 0.20 [facility] #IG 0.03 10^3/uL 0.00 - 0.10 [facility] #NRBC 0.00 10^3/uL 0.00 - 0.00 [facility] MANUAL DIFF NOT INDICATED [facility] RBC MORPH NOT INDICATED [facility] ID Date Data Source [id number] 08/21/2020 01:49:00 PM EDT [facility] Name Value Range Interpretation Code Description Data Vivian rce(s) Supporting Document(s) SARS-CoV-2 (COVID 19) NEGATIVE - SARS-CoV-2 (COVID19) [facility] This lab was ordered by [facility] a nd reported by . ID Date Data Source [id number] 08/03/2020 10:28:00 AM EDT [facility] ([facility]) Name Value Range Interpretation Code Description Data Vivian rce(s) Supporting Document(s) Arterial Ultrasound Lower Extremity Left Laboratory test result [facility] ([facility]) ID Date Data Source [id number] 06/12/2020 01:22:23 PM EST [facility] Name Value Range Interpretation Code Description Data Vivian rce(s) Supporting Document(s) &PDF [facility] WVSNMh4eOcUPRjBv05/KODroTJDpm8UdWKynTEe6TWkqJSXhS7TumQmcRQZVBMpsIi9IMSSaVUZiCfGs gU3 [file] /5b9IuaKUbpMAHS2AU6qh9YJKBiHFI909uk/ZxG [file] JzOtkoLSpvRcgmPi9oXZPGVh0+JUztkJCtuZexHTHLOcq1YwhnXSivTWJYMm1M ID Date Data Source [id number] 06/12/2020 11:30:20 AM EST [facility]E NT INFORMATIONPatient MRN Name Date of Age Gend*PT [id number] Joy Dent 1940 80 years F HOPPT Location Admission Date/Time Visit ID Attending ProviderCV-27 06/12/20 0959 --- Benjamin Evans MD([id number]) EPI ID CSN Admitting Provider [id number] Benjamin Evans MD([id number])Updated H&PPlease see the scanned/dictated outpatient note.I have reviewed the note, clinical history and physical exam findings. Therehave been no significant changes.Plan as outlined in the outpatient note.Risk/benifit/alternative of cardiac catheterization was discussed withpatient/family. Risks included, but not limited to; ME, CVA, , renalimpairment, vascular complication, and need for emergency surgery were discussedand accepted by patient.Benjamin Evans MD, [facility] [employer] Name Value Range Interpretation Code Description Data Vivian rce(s) Supporting Document(s) ID Date Data Source [id number] 06/12/2020 11:24:05 AM EST [facility] Name Value Range Interpretation Code Description Data Vivian rce(s) Supporting Document(s) EKG [facility] SOLWIt4vSbEZJmTnj0OcAyPvDUGzJB8whjz7O7Q7kFWlP7ElfCMgk0gyW1DmU1HiLYFlWFSDEA2OmNZi jb2 [file] z4HPf3/+wx38z7/+3d/++n/+9p//dG9//vY//vp production///kZdD6hFC8/Watch Mechanic///sv/+QpGwnfp52///xzhjM/ [file] wTw7SFJOtyxkpF6Q+Robert+b+84gtQI4YzlcgIGrUqlVkxzx7UI6BGxtFRQKs37Z2ee1spri3fspj4osrsC gMrWN1ION1ggSeA11hzuOJDP6XxDZk4uhhZuO+bCA0hXu1JkX2rKNf9lccPbq2YNtXhBxQ6SsT7UsFTS cTfIJ1zXWm+cQQM/8Ld8KK7uIo6aGzluui77Tj8x0L kOrNNBGiH9o9V/j+vgs2H0d233TF+g8O8nUJIL3XY4H8jgTQq3lfQvn20Eb9S0xIQIX0cxoBl0PxdInp Rnv1dIJXlifMtWh6VITMPdzEkWVTvyOudGhjXPpcDpPBTxdM8SIpKj5MmAbCyOTDE4vpk8TGHTbfVpAh y1XGFJph012OzVRurMDp78yaGdvREOrOVWqF2sCXXS MnW9aPsa/Twun5WZ2EXQPxfDjoZNiYzZ6t9pFT73PoYzCmKxIUrhjMFxRngWUtc/6z//z3//xP6hhC5i /ff//vu//lf5v//++//9+x//rb7cH/60Tl/uD6f/Uhl4Du06Uc9urux+vd/m819W+WH5+lx1vLN64D1O +VJ4RxA1S/1lkz+3jJ2QXCPQ3DGG0EK0zk7RLxPtof iS53O2644o5RKZRGIbQ/MRCWXp8HvX4XMiYVyjQfhVujeA3psZ2lRgx0mo5+a+8YA3ajwaFkzBbb1+We GVbeBT5Q2tW/z69wJPQvF1UrBkMBN/A/l1gC3M10nm5il0Ysz5D/BBLAYT1Yrh+jl32FS2ln29/hPrvL C/C/u7sL8L+0ebixz0u9R/C/f2gX2a8yhvAV2tw999 uI1sI5x516j0nuCogke8Zx+1Vjyt6ERhM9gvkle1dOV+Q9vRWVC4SQ67MY5A9/2R63cMMOlBVnIjoM+6 HT/wrFyjwt0v0vw7C7CyT/73HHekOCl+JYeA+ZO4quES5KFsLpFD67nrhQ3Gfk9RaJKzfdXO+la7ZxDK +U26qCg87/ns1s1cbI+m5Pgvv/qoSjnPL7/0kYu7ty +/+fz9y1l227Mq9Mo5A37hFve9mJy4ydSZthawg9Nl/GRr5wpv5Ux+kB4N9A5+Veey/i3cc6WyW92K78 w/8gYa2MqFZ3i1a/jSLSWFL7+qrVqp+rC07Duyy7n+R26P30qD/g2Gi7Vkqp5Zgq80poUK7re2W7cW/K q6p/f4kGqDO/jW6fUtd+q+5rvOXXuU/XzlTPr29LmW COTTON AGENT/s39gy2FMmdeS47YbaAncTisal/tjyI3g6WyyEV1F4BlYQp7Adiy/tNJx2obEEpaT/95xc5NTnAk9z +zOoO20NjFddb+uQ/MrXJ7/6fFWT/o77fYH+qS/3h9a/A3Tf2iyCE/YA1lvGkr+Tyckpe1Yyyhar6vPN OsfVmie/NmTxqf6XlG7hv6R2I53T4ddTb4I0D/mVzn q1YU69Mba5E/dHsxp/4fw27qJNl/tyf1Qp/ft33M+Vf+1D7XCp36ofOouYx2wt+bzpuvhoUfvPfbk/et P8SuYw5uFMGS/HrTn/jRw9dm2v20zp+F70BC6LRu12g89+2k/CBngO4tE+uS/353XPuSW/+jCsP/fl/i p1IjnmTe6Gk5txbixfv+3R490vX8gSRPZe5Ub5lyrl n02vX2gnXjkXIbdTfqAD09MmCJmc7y5OviscC+mg+Stkek8oifml/vkdLS5B6yH1TEhpHfm3Y+6zjw37 m/RK5i3fB54P1Op5zhKe5oqc9LQphVqqROdR7Vsc67D1QObgZtuDym7IG3xHEs2fgqOB+BuR3gh/I9IZ 4W9T+gD2KRfCvV+A1Ecdd6QHfcvZp/LfLV+PRnOR7V Ag0hXzmfpiSQaJavuxocTrlKuUGYYYywuG361+7xPY5NuKS6Lr1DK6xrnEnyJ+cjt0Z9S/cV/nY43VK7 w/8spvG4UEZ2rYhVq2N/vaQ3PtfwQlZ5NO134i/cB9Ju6/PZ41sv4C4AY3MX/5qlm+Ix1mvoOJ3ZE6Nz 8bupFj5EU1jZ5dY1hGSeGqdusD9fzCCba3UO1ai9lA 0o/kk8YcS2QyfHlekm/EhGTd86bklfLZa73q3HRKI+yLotU3XBrLVrNlDLajI5mRxwgY4zxP2yBxu3En a1d+yjACQjMj9VxkI6/yc+x1DHavjZ5Tam6uG3/p9IS7Vz2bGNzscouabZ1M65L+8WPv4p9v3Uop0kmw l3FrtIuh42I4tt20xkNwCt6c90w4syfSnoif+FV+C9 Ps4VjSLBtEmIy4qSA8qsPgf4q6dFL6JfN+l3LxVj4E2GXz/Nzphmmw7F6QS8Dx0IzzS72Anw5nr09FcN UAfauc93wF8fIOr/kEnUVn8PNl5mLSYbI35f16UTI+O+V29f3+6ywL2ht5l0+b+3J/zrrus/P+379N0/ +HEbY/9+S87FCr1nZrda7/hf+9payu6/W1uB6Z1ct3 TZv/2xNhuhPl5Mn4r92+B+J3jeN104n5J/dn0/af+3J/HjHvmfarNdTHu/30r17u/nbzq7x/uQE1R2wv Tzt/v04NPc7NNexer4aVEq2BxzuM+nrP0AnpmQH/Rw/OC1NLO35/m+YlhQDjNIlC7tqy/OSZFEl/dAPd Qee4U3+w9166j87hwO6+VMn3yBQzpQmbXi+DvuXwtO aq8xhqoqYpjOX/OiA3TF0ZJ9Jq7/Obb97Pdko8ctH4PUQ/Tck8p0hX8iwdNl6LN06l9GKa7zE6O/dnkf TvV25P+30a1eRal84Dau89iH6Qt6minlg/PGiek+RXkm/Bxg27tWnp3dcKf6s1d1tmXyxX7Ic2f4fnCx cVHEFx2Z60Ku5BcJkBq/dSTY11Un6XW/xtjqvzk/qg 6Mq32UukyfOQaqKu16h6QEN4Y2yi9Ze6XghLOglPH/8Tb3DAyf1wL6g/Lq4Nat7Q+s+G9D5Xfbhh+srt fV+5vW+cZ+mDer/21UPTMm/dtku+4bZxZ4kN39zm21dd+8jy3X0zQ3gVzKrS/95/831wIEOF6FO4Sh91 9KuX4BWiPoxOml/kqzz/Q/VP4TA96fjoq+s++z4L7F vB4gqRwE5Ly4e78U74vZVFTP/keUDZQ5w0tPe85qQGzsp/v6M2/BzKmQ6nO+Kahb+3jp2MiAG0pY8ZMG RQHSlX1YP2QX/Q+9V6htPjJ4y+0tyVlk37BP6thZ1Uz/J3OQwKnsQTRHiDX+ukEFrX2eAebFsfUMucRe Eqsi6vjl7y+7i73sfCF+gKuoHuoAdojDuxv/PqZUP2 sdOIOR7AdepmOQVTtuNoWIj3quNuCrKUsWn/WuFhZ54SD216D6Xpx063Jhetn10m+4A+ODb2V/wqec58 1l7O313K81aUS79WzlNrcRqyPSuIysMrTAk9wzKPHiZR8mvCD++dOiSai0b93W+o3w9gjFpcIUbEQ/yD M+66C4VN6y9A38dce/typ/EwoegC14hjhI0O8w9da5 +br9206fFGn0t+ZW/KwUHoW38b92u0j2Oo9yq22afnv6910i68OK/Ge42Bpj/lii5lShp4uc8dLervpj 0CiM0k7e8sj6zKma2o65eb7g4jQx2qYk+x6yQp3EGLHhr8ba+xcIOUAiyhix7okpikz3curo4bf6Ahf+ 911m/6KHl5/6F1Vv/tlNtTZpiyt+y7F5Xx5e1kv1Vi Sx/QVek2y2e9Trj06+/6KmRlz6OVgrAusDyjq2Le83+quJim3q5BTsxgrT1zQ+aiG0tN321Hu5/Z2/Vc tfeXqhx9gYx19AyogPM3m/lmVW8SwI7Z7p80zk87dj6sgR+yt+p1zYm06q1xyt+kW45P3jp/SnRP2QY/ k2Ak4ruA27tg2anWJ/u6Uwhrjq921XSOFqXv45siWH 1eQaA4zm1ujn23039L4i7tsrIbj/SXzlokYcvB41sq57mqyA/Z2/TaVbV1d/495XbNU/o0gJAD3M52/r MGf59sIFXRgqQMzL26WId34yz/boK9bvOqr0pQwTd7zq6y3wyXfu/AB9xc7X/kKkY0WA85jz1lkhJijj fX25xA77wrhj/ayd934sMnn1lrT7T8b71vlLqNO0gZ +xi2p37YNLt9mt723393l58S7ndur56/2XE5aTeHsPUbRF8vN3P/Wv1+NykbW2nz4+Dq9/u7+gA9QS/Q X75j0cYlQZuuHyuYoyeNt1mYpDYfLl3eGQ2vQX6epjklX/PKdWte+/QSf8L1iLm0e4g94XG/Cy96ixEe ahusF3scgwtXxtxpGbeRebFZdMrpp0xrjvW/sLevje jjRbEPjfsenrM7fgNnayfXQ/rtxL4hH4NJ2LJr/d3P/V5i5By4m/WFrJRk+EOENo1nEklwgVnt9Zd16k 17+5s5qlFjmayG75z273oGlkxb5YRtNosZzvT64XS0hk2ofz389iOf62wOHxPy5J4g0mWVt/qZcD4Ko4 +20ldfS35MY17BE16CM28HW20ur/5b7C/q1Vg35f03 [file] Pvv/787k9+uw21jL6x/iVz96nkIO206B523A46Be46C06gmw7qdi/v3may8huSC16tFj3/6QI724UztG X28z8KcK4/TTcYKe095Y3Vhxf0A7iCc1/u754/e3Jz +D076e9pl6cqyi4yHY6b05i+c/6441sE9+uXp/N/3hU3C55int4tsIY2+smXd0+ePr2+f/L82Z/s+/zk PO/08lT9m897+O500j/+uvt5n11/vi2v7iMvT+//4uJBsp7uDm7//OX0gx/+evjw/hBf1C/GNUvpKvLV aYJy/c0f+cnDnermVe416gqsUg2rK3viNv3t834Q0x O+t+zt5fj4/6M3Rs5f3/z43zZU3rM56ehpJ22b8OdnMOJDuPT4PcR3vxmW3F1efsXfzKpjuw684yipol 2sQSAop0g2lwieda56tt9wbQF0Q+AZs2ehyxU+yxc95Nmgp20wn2gdgyxm8E083JOdB1p/m7nb0bXf8i Dm/a+blue 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 clerk/7Pw9s/2vhuvfhde8/UW1uk/unuZ+O3dy8P P/36Ib2Qh/ef7n/UVn6yf+1ia/v2/otv71+h/kR3E8Tw8x6owA7b9Q1SIHsaIeWZzr2OcuK6jJP7iWf6 010s537mev73pdh4d3f521j//BW8o6csvXulH0bnHK/98JfT0/j3jz/63WGe57J8+zK6o8gKS1l6eG52 +I9Lpv2cFk1/bA2nO7j7+VIl2yz7C7E7xxkI+umHV1 c83/HtUdqXc/P961c/v3/z9oZXu1WP70qa3hXzustuay1Wr4+atZk0tuXBoa+rFw//en1Ihw//PPBwZy Bphq0va0On5W58nnkh9on7Pf6JKbwfiC9fl5tEz88+4ZZR0KT2l/H9a2vkjT6QUi3vvAa6+/8HqvnOAQ zeepTlbTWtTT3NLD2tg0UpTkC7NCJdc8CsGKifDPe3 fLShVWbkzeIzl7YbaiyyF9Nkg6ZaUqYbYRSfNmLkDrz4NKWpQiK5vASoBrZmZXXjH7TfSOCsPiW0VdRx EAYSZD3GUCAsqcUvBcEnBED+IxRrDX5kuyblKIXfm4HyWLjlCNcpKJRlF3L0uJzvUBCeP9BirO51TXEq R7WldgR4NEJ2FNVoPcKeQTVoyUWmONQoIQN+PmVuZG 0hnbrvIPCag0MxURnvROB4bX9uTOqIVRPQUSqKBGibHkU1d74rfvNSBKJhGKExYJ9BfaVzoRrkewOelR PxTJV1PdOaTJTpCPOyEZU4LCQILRLtYMXgHQCbBADdH2DtjKjjEXwVTCKDNCtRPDbzBwUzl5E6GKBflo JWDSQhSIEBW5rhAVCfGNjaNIo7FAGxZ0ZjzrYyrMKm ZEWCVNjfZpeuLFApqM9arOsfX7LqXDD0p7XqOA8DP4SdAUMgTVFUYQA2t4TbKYBjyjujendgIiBoVITq AMEvNKZcYF1Kzf1qzNGjshEfXUBJUMgiWszsGE7prLbhztxrJ8NmbTWqAZB+UkViLI2oiv1+CjEgMCBv Mps4FNFtRCuqWKJkZCEkFTPjJ6svGVAuUaJvEUOsLo ZdAS7Yo7YdeTCsJq2kkgRkKsjYeYEsCyrtWVJeERWxYJPnYmFJZCEsPEUnMHFqORW8UUYzDJXhZTcoXG IqGZT0DFq3ARCaQRCnXD9bDwViLQDmPND3MRyaDEXsHTJbnjQQFLSyFWG4DfmhKbVcELHmSQMyZWogHF PlGEZjGAZfWRM2SFI6YTMqAuOaDVEnTFCtWCPmOGPn USKksnZHIUUlLIYmLEB1NIYjVRLeDEBoKPqvILZpQXZhQDfhEAOqRAWaDX9wCnNhSOGnKWSmVCxyPCBr QIFxdaXXRWJlUNCoSXEjGNJnZJCfTVWaXYvdQJNbZTCnZLFgUOJxOKZkGD2bZmPfQAXwWEY3PMSpNAId AIRnnhGZBIThLHBrGZe7ZIPaWQZkBURhSOvkGFLjYA CsKDS0WELmZKFnKV4qHxEoCCJrJUB0WeNgWKNnRTHegmLNSTWgERVnZHZ5IyRbCLJcQMHqYVbeEHIsCP OnFHkfSTBdEKUcLH8yTgVnJBXxLORmDCcaBVNoYBTphsYUHRVqTLQjTVZdPiAgHYQsSBLpRAdhJVWiTL V2IsJ7VAPhHBOyNH6wCxBcXAZaISO3GWhqFXQwUTFc lhBPBGXpFHQsKXmqAGQsXQPpYVFiOXsxFDGjVTFfLUF2UXZsHLXvDX4iLnNaQEVxZJMuWVEuRgR1FaSr PtMYrDFyfPxgeca7SXajH6l0FUYoZZmqYM0fidOnGJIpXfazSo0dqOF6CPZqBcsIQw0Mb7OblmO2jfYa OxS7ZMW1XhDkGU1E ID Date Data Source [id number] 06/12/2020 10:35:57 AM EST [facility] Name Value Range Interpretation Code Description Data Vivian rce(s) Supporting Document(s) POC NOVA GLU 79 mg/dL (70-99) [facility] [place] PERFORMED BY [facility] CLINICAL STAFF ID Date Data Source [id number] 06/12/2020 10:36:28 AM EST [facility] Name Value Range Interpretation Code Description Data Vivian rce(s) Supporting Document(s) POC PTINR 1.4 [facility] SUGGESTED THERAPEUTIC RANGES USING INR F ORSTABILIZED ANTICOAGULATED PATIENTS:STANDARD DOSE THERAPY INR 2.0-3.0 DVT, PE, PREVENT DVT OR EMBOLISMHIGH DOSE THERAPY INR 2.5-3.5 PREVENT EMBOLISM FROM [facility] CLIN[facility] STAFF ID Date Data Source [id number] 06/11/2020 09:53:00 AM EST [facility] [address] [place] [address] PHONE: [phone] FAX: [phone] Name .................. : ANNA JOY Medina Acct Number.................. : [id number] ROOM. ................. : Number ................... : [id number] Stay type ............. : O/P Discharge Date......... ... : 06/10/20 Admit Date ......... : 06/10/20 Admit Phys .................... : NAUN MTZ Date of ....... : 1940 Family Phys ................... : NAUN MTZ Phone .................. : [phone] Age ................................ : 80 Film# .................. .:[id number] Sex ................................. : F Unsigned transcriptions are preliminary reports and do not represent a medical or legal document SPINE THORACIC [id number] COMPLETE:06/10/20 11:34 5589 (SPINE PROC REASON: PAIN THORACIC SPINE, 06/10/20: FINDINGS: Status post median sternotomy. Pacer leads in good position. 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 IMPRESSION: DJD. No definite fracture seen. Electronically Reviewed and Signed By KVNG CABRERA MD , 06/11/20 09:53, [facility] Transcribe Initials: SSR, Transcribe Date: 06/10/20 14:45, Dictation Date: Copy for: NAUN HARTLEY via fax Copy for: 71 [phone] [facility] REC Page 1 of 1 Name Value Range Interpretation Code Description Data Vivian rce(s) Supporting Document(s) ID Date Data Source [id number] 06/11/2020 09:37:00 AM EST [facility] [address] [place] [address] PHONE: [phone] FAX: [phone] Name .................. : ANNA Medina Acct Number.................. : [id number] ROOM. ................. : MR Number ................... : [id number] Stay type ............. : O/P Discharge Date......... ... : 06/10/20 Admit Date ......... : 06/10/20 Admit Phys .................... : NAUN MTZ Date of ....... : 1940 Family Phys ................... : NAUN MTZ Phone .................. : [phone] Age ................................ : 80 Film# .................. .:[id number] Sex ................................. : F Unsigned transcriptions are preliminary reports and do not represent a medical or legal document SPINE LS COMPLETE [id number] COMPLETE:06/10/20 11:34 3548 (SPINE PROC REASON: PAIN LUMBAR SPINE SERIES: COMPARISON: 07/06/18 FINDINGS: The bones are osteopenic. No fracture or dislocation is identified. Severe spurring is present at T12 through L3. There is some moderate spurring at L4. The spurring appears worse. There is severe disc space narrowing at T12-L1 and at L2-3. There is anterolisthesis of L4 on L5 by about 0.3 cm, which is stable. Moderate disc space narrowing is present at L5-S1. Severe calcified plaque is seen in the aorta. Median sternotomy wires are present. A pacemaker lead is seen at the level of the right ventricle. IMPRESSION: No fracture or dislocation. Osteopenia. Mild anterolisthesis of L4 on L5. Severe degenerative disc disease of the lumbar spine and lower thoracic spine. Electronically Reviewed and Signed By Sushil Carlton MD , 06/11/20 09:37, [facility] Transcribe Initials: MILLY , Transcribe Date: 06/10/20 17:37, Dictation Date: Copy for: NAUN HARTLEY via fax Copy for: [address] [place] [address] REC Page 1 of 1 Name Value Range Interpretation Code Description Data Vivian rce(s) Supporting Document(s) ID Date Data Source [id number] 06/07/2020 10:45:00 AM EST [facility] ([facility]) Name Value Range Interpretation Code Description Data Vivian rce(s) Supporting Document(s) Laboratory test finding (navigational concept) Laboratory test result [facility] ([facility]) This nucleic acid amplification test was developed and its performance characteristics determined by [employer]. Nucleic acid amplification tests include RT- PCR and TMA. This test has not been FDA cleared or approved. This test has been authorized by FDA under an Emergency Use Authorization (EUA). This test is only authorized for the duration of time the declaration that circumstances exist justifying the authorization of the emergency use of in vitro diagnostic tests for detection of SARS-CoV-2 virus and/or diagnosis of COVID-19 infection under section 564(b)(1) of the Act, 21 U.S.C. 360bbb-3(b) (1), unless the authorization is termina pat or revoked sooner. When diagnostic testing is negative, the possibility of a false negative result should be considered in the context of a patient's recent exposures and the presence of clinical signs and symptoms consistent with COVID-19. An individual without symptoms of COVID-19 and who is not shedding SARS-CoV-2 virus would expect to have a negative (not detected) result in this assay. Performed at: [facility] [address] [id number] [employer]er: Clara Quevedo MD, Phone: [phone] Not Detected ID Date Data Source [id number] 06/07/2020 10:45:00 AM EST [facility] Name Value Range Interpretation Code Description Data Vivian rce(s) Supporting Document(s) SARS coronavirus 2 RNA Not Detected [facility] This lab was ordered by [facility] and reported by [facility]. ID Date Data Source [id number] 05/19/2020 11:00:00 AM EST [facility] ([facility]) Name Value Range Interpretation Code Description Data Vivian rce(s) Supporting Document(s) Laboratory test finding (navigational concept) Laboratory test result [facility] ([facility] Sotomayor MD) COMPREHENSIVE METABOLIC PANEL Laboratory test finding (navigational concept) 138 meq/L 134-153 [facility] ([facility] Sotomayor [facility]) Laboratory test finding (navigational concept) 4.9 meq/L 3.6-5.0 [facility] ([facility]) Laboratory test finding (navigational concept) 36 meq/L 22-30 Above high normal [facility] ([facility]otomay[facility]) Laboratory test finding (navigational concept) 95 meq/L 98-107 Below low normal [facility] ([facility]otom[facility]) Laboratory test finding (navigational concept) 259 mg/dL 6 5-110 Above high normal [facility] ([facility] Sotomayor MD) Laboratory test finding (navigational concept) 26 mg/dL 7-21 Above high normal [facility] ([facility] Sotomayor [facility]) Laboratory test finding (navigational concept) 1.5 mg/dL 0.7-1.5 [facility] ([facility] Sotom[facility]) Laboratory test finding (navigational concept) 3.8 g/dL 3 .9-5.0 Below low normal [facility] ([facility] Sotomayor [facility]) Laboratory test finding (navigational concept) 6.2 g/dL 6 .3-8.2 Below low normal [facility] ([facility] Sotomay[facility]) Laboratory test finding (navigational concept) 17 8-27 [facility] ([facility] Sotomay[facility]) Laboratory test finding (navigational concept) 9.4 mg/dL 8.4-10.2 [facility] ([facility] Sotomayor MD) Laboratory test finding (navigational concept) 2.4 GM/DL 2.4-3.2 [facility] ([facility] Sotomayor MD) Laboratory test finding (navigational concept) 1.6 0.8-2.0 [facility] ([facility] Sotomayor MD) Laboratory test finding (navigational concept) 27 U/L 5-40 [facility] ([facility] Sotomayor MD) Laboratory test finding (navigational concept) 1.3 mg/dL 0.2-1.3 [facility] ([facility] Sotomayor [facility]) Laboratory test finding (navigational concept) 209 U/L 38-126 Above high normal [facility] ([facility] Sotomayor [facility]) Laboratory test finding (navigational concept) 7.0 mmol/L 8 .0-16.0 Below low normal [facility] ([facility] Sotomayor [facility]) Laboratory test finding (navigational concept) 80 yrs [facility] ([facility] Sotomay[facility]) Laboratory test finding (navigational concept) 18 U/L 7-56 [facility] ([facility] Sotomayor MD) Laboratory test finding (navigational concept) 36 mL/min [facility] ([facility] Sotomayor MD) Laboratory test finding (navigational concept) Laboratory test result [facility] ([facility] Sotomayor MD) Male GFR Interprentation 20-49 yrs >60 mL/min Normal 50-59 yrs >56 mL/min Normal 60-69 yrs >49 mL/min Normal 70-79yrs >42 mL/min Normal 80 and above >35 mL/min Normal Female GFR Interpretation 20-39 yrs >60 mL/min Normal 40-49 yrs >58 mL/min Normal 50-59 yrs >51 mL/min Normal 60-69 yrs >45 mL/min Normal 70-79 yrs >39 mL/min Normal 80 and above >32 mL/min Normal ID Date Data Source [id number] 05/19/2020 11:00:00 AM EST [facility] ([facility]) Name Value Range Interpretation Code Description Data Vivian rce(s) Supporting Document(s) Laboratory test finding (navigational concept) Laboratory test result [facility] ([facility] Sotomayor MD) COMPLETE BLOOD COUNT Laboratory test finding (navigational concept) 10.4 10^3/uL 4.2-11.0 [facility] ([facility] Sotomayor MD) Laboratory test finding (navigational concept) 4.83 10^6/uL 4.20-5.40 [facility] ([facility] Sotomayor MD) Laboratory test finding (navigational concept) 44.9 % 37.0-47.0 [facility] ([facility] Sotomayor MD) Laboratory test finding (navigational concept) 14.8 g/dL 12.0-16.0 [facility] ([facility] Sotomayor MD) Laboratory test finding (navigational concept) 93.0 fL 81.0-101 [facility] ([facility] Sotomayor MD) Laboratory test finding (navigational concept) 30.6 pg 27.0-34.0 [facility] ([facility]ar Sotomayor MD) Laboratory test finding (navigational concept) 33.0 g/dL 31.0-36.0 [facility] ([facility] Sotomayor MD) Laboratory test finding (navigational concept) 11.7 fL 7 .4-10.4 Above high normal [facility] ([facility] Sotomayor MD) Laboratory test finding (navigational concept) 195 10^3/uL 150-450 [facility] ([facility] Sotomayor MD) Laboratory test finding (navigational concept) 16.2 % 1 1.5-14.5 Above high normal [facility] ([facility] Sotomayor MD) ID Date Data Source [id number] 05/19/2020 11:00:00 AM EST [facility] ([facility] Sotomay[facility]) Name Value Range Interpretation Code Description Data Vivian rce(s) Supporting Document(s) Laboratory test finding (navigational concept) 2.69 0 .93-1.23 Above high normal [facility] ([facility] Sotomayor MD) \\BLDo\\INR INTERPRETATION\\BLDx\\ Therapeutic range for Coumadin and related oral anticoagulants. -International Normalized Ratio (INR): 2 .0 - 3.0 for Venous Thrombosis, Pulmonary Embolus, Tissue heart valves, Acute ME, Atrial Fibrillation, Valvular heart disease and recurrent Systemic Embolism. -International Normalized Ratio (INR): 2 .5 - 3.5 for Mechanical Prosthetic valve. Laboratory test finding (navigational concept) 29.9 s 1 1.0-15.5 Above high normal [facility] ([facility]ivar Sotomayor MD) ID Date Data Source [id number] 05/19/2020 12:04:00 PM [facility] Name Value Range Interpretation Code Description Data Vivian rce(s) Supporting Document(s) COMPREHENSIVE METABOLIC PANEL [facility] COMPREHENSIVE METABOLIC PANEL Sodium [Moles/volume] in Serum or Plasma 138 mEq/L 134 - 153 [facility] Potassium [Moles/volume] in Serum or Plasma 4.9 mEq/L 3.6 - 5.0 [facility] Chloride [Moles/volume] in Serum or Plasma 95 mEq/L 98 - 107 L [facility] Carbon dioxide, total [Moles/volume] in Serum or Plasma 36 MEQ/L 22 - 30 H [facility] Glucose [Mass/volume] in Serum or Plasma 259 MG/DL 65 - 110 H [facility] BUN 26 MG/DL 7 - 21 H [facility] Creatinine [Mass/volume] in Serum or Plasma 1.5 MG/DL 0.7 - 1.5 [facility] BUN/CREAT 17 8 - 27 [facility] Protein [Mass/volume] in Serum or Plasma 6.2 G/DL 6.3 - 8.2 L [facility] Albumin [Mass/volume] in Serum or Plasma 3.8 G/DL 3.9 - 5.0 L [facility] Globulin [Mass/volume] in Serum by calculation 2.4 GM/DL 2.4 - 3.2 [facility] A/G RATIO 1.6 0.8 - 2.0 [facility] Calcium [Mass/volume] in Serum or Plasma 9.4 MG/DL 8.4 - 10.2 [facility] Bilirubin.total [Mass/volume] in Serum or Plasma 1.3 MG/DL 0.2 - 1.3 [facility] Alkaline phosphatase [Enzymatic activity/volume] in Serum or Plasma 209 U/L 38 - 126 H [facility] Aspartate aminotransferase [Enzymatic activity/volume] in Serum or Plasma 27 U/L 5 - 40 [facility] Alanine aminotransferase [Enzymatic activity/volume] in Seru m or Plasma 18 U/L 7 - 56 [facility] Anion gap 3 in Serum or Plasma 7.0 mmol/L 8.0 - 16.0 L [facility] AGE 80 yrs [facility] al NON-AA GFR 36 mL/min [facility] iggy AFR AMER GFR >60 [facility] Male GFR In terprentation 20-49 yrs >60 mL/min Normal 50-59 yrs >56 mL/min Normal 60-69 yrs >49 mL/min Normal 70-79yrs >42 mL/min Normal 80 and above >35 mL/min Normal Female GFR Interpretation 20-39 yrs >60 mL/min Normal 40-49 yrs >58 mL/min Normal 50-59 yrs >51 mL/min Normal 60-69 yrs >45 mL/min Normal 70-79 yrs >39 mL/min Normal 80 and above >32 mL/min Normal ID Date Data Source [id number] 05/19/2020 11:38:00 AM EST [facility] Name Value Range Interpretation Code Description Data Vivian rce(s) Supporting Document(s) CBC NO DIFF [facility] ital COMPLETE BLOOD COUNT Leukocytes [#/volume] in Blood by Automated count 10.4 10^3/uL 4.2 - 11.0 [facility] Erythrocytes [#/volume] in Blood by Automated count 4.83 10^6/uL 4. 20 - 5.40 [facility] Hemoglobin [Mass/volume] in Blood 14.8 g/dL 12.0 - 16.0 [facility] Hematocrit [Volume Fraction] of Blood by Automated count 44.9 % 3 7.0 - 47.0 [facility] Erythrocyte mean corpuscular volume [Entitic volume] by Auto mated count 93.0 fL 81.0 - 101 [facility] Erythrocyte mean corpuscular hemoglobin [Entitic mass] by Automated count 30.6 pg 27.0 - 34.0 [facility] Erythrocyte mean corpuscular hemoglobin concentration [Mass/volume] by Automated count 33.0 g/dL 31.0 - 36.0 [facility] Erythrocyte distribution width [Ratio] by Automated count 16.2 % 11.5 - 14.5 H [facility] Platelets [#/volume] in Blood by Automated count 195 10^3/uL 150 - 45 0 [facility] Platelet mean volume [Entitic volume] in Blood by Automated count 11.7 fL 7.4 - 10.4 H [facility] ID Date Data Source [id number] 05/19/2020 11:38:00 AM [facility] Name Value Range Interpretation Code Description Data Vivian rce(s) Supporting Document(s) Prothrombin time (PT) 29.9 SECONDS 11.0 - 15.5 H [facility] INR in Platelet poor plasma by Coagulation assay 2.69 0.93 - 1. 23 H [facility] \\BLDo\\INR INTERPRETATION\\BLDx\\ Therapeutic range for Coumadin and related oral anticoagulants. - International Normalized Ratio (INR): 2.0 - 3.0 for Venous Thrombosis, Pulmonary Embolus, Tissue heart valves, Acute ME, Atrial Fibrillation, Valvular heart disease and recurrent Systemic Embolism. -International Normalized Ratio (INR): 2.5 - 3.5 for Mechanical Prosthetic valve. ID Date Data Source [id number] 05/12/2020 02:44:00 PM [facility] [address] [place] [address] PROGRESS NOTENAME: ANNA Medina ROOM#: [id number] OF : 1940 MR#: [id number] DATE: 05/09/20 OF SERVICE: 05/12/2020The patient is very irritated. Does not want to take any medication. With a can of soda she tried to cutboth of her wrists, so there is a small superficial laceration on the right wrist, scratch on the left wrist,scratch on the right side of the neck. She is very agitated and does not want to take any medicine, sherefuses all the medicine. She was taking Lyrica 75 bid, which she has not been taking for the last 48hours. It is possible this is withdrawal side-effect so will give Valium 5 mg po STAT and see how sheresponds. If she cannot take po medicine, we will 5 mg IM. She also pulled her IV out. [facility] tendencies. I spoke to the ER doctor [facility].DD: Bolivar Sotomayor MD, PC 05/12/20 14:19DT: SSR 05/12/20 14:43DS: Bolivar Sotomayor MD, PC 05/19/20 09:33 1 Name Value Range Interpretation Code Description Data Vivian rce(s) Supporting Document(s) ID Date Data Source [id number] 05/11/2020 10:43:00 [place] [address] PROGRESS NOTENAME: ANNA Medina ROOM#: [id number] OF : 1940 MR#: [id number] DATE: 05/09/20 OF SERVICE: 05/11/2020UBJECTIVE:This patient came with congestive heart failure with pleural effusion, which is getting better. Patient isnow confused and irritated, agitated at times. She wants to go home. She did not sleep well the last twonights. ROS: The patient has dyspnea on exertion. She has orthopnea and paroxysmal nocturnaldyspnea. No chills or fever. No cough or hemoptysis. No bowel disturbance. No urinary problems. Noankle edema.OBJECTIVE:On exam, moderately built. Blood pressure was 115/50. Head is normal. Heart regular sinus rhythm.Lungs are diminished at the right base. Abdomen soft. Extremities normal.LABORATORY DATA:On 05/10, WBC 13.1, RBC 4.51, hemoglobin 13.8, hematocrit 41.0, MCV 90.9, MCH 30.6, MCHC33.7, RDW 16.0, platelets 183, MPV 11.9. On 05/10, sodium 138, potassium 3.8, chloride 93, CO2 38,glucose 168, BUN 34, creatinine 1.1, BUN/creatinine ratio 31, total protein 5.8, albumin 3.8, globulin2.0, A/G ratio 1.9, calcium 9.2.ASSESSM ENT/PLAN:Patient has the following problems:1. Congestive heart failure. We will continue the furosemide 40 mg daily IV. She has lost some weight. Edema in her leg is better.2. Pneumonic infiltrate. Patient is on IV antibiotic.3. She is quite agitated. Seroquel 25 mg po has been given today. She had insomnia, could not sleep, and is quite agitated.DD: Bolivar Sotomayor MD, PC 05/11/20 09:38DT: SSR 05/11/20 10:43DS: Bolivar Sotomayor MD, PC 05/19/20 09:33 1 [place] [address] PROGRESS NOTENAME: ANNA Medina ROOM#: [id number] OF : 1940 MR#: [id number] DATE: 05/09/20 2 Name Value Range Interpretation Code Description Data Vivian rce(s) Supporting Document(s) ID Date Data Source [id number] 05/07/2020 11:07:00 [place] [address] PROGRESS NOTENAME: ANNA Medina ROOM#: [id number] OF : 1940 MR#: [id number] DATE: 05/06/20 OF SERVICE: 05/07/2020SUBJECTIVE:This patient came with chest pain and congestive heart failure. Patient came to the emergency roomcomplaining that she had chest pressure and she was short of breath, she was dizzy. ROS: Dizziness isslightly better, she is on Lasix drip. Patient has some orthopnea and paroxysmal nocturnal dyspnea. Nochills or fever. No cough or hemoptysis. No bowel disturbance. There is 1+ ankle edema. The patientpreviously had coronary stents, pacemaker.OBJECTIVE:On exam, moderately built. Blood pressure 130/80. Head is normal. Heart regular sinus rhythm. Lungshave bibasilar rales at the bases. Abdomen soft. Extremities normal, 1+ edema.LABORATORY DATA:Lab tests showed BNP 9000, magnesium 1.8. Sodium 141, potassium 3.2, BUN 21, creatinine 1.2.TSH was high.ASSESSMENT:Patient has the following issues:1. Angina pectoris, stable.2. Congestive heart failure, ejection fraction 30-40%.PLAN:The plan is to give her Lasix drip 10 mg/hour IV. Serum potassium is on the low side, patient will begiven KCL 10 mEq tid. We will add valsartan 40 mg daily for congestive heart failure as ACEinhibitor. We will also get a CAT scan of the chest for pleural fluid. A Barrow catheter is also beinginserted to monitor the urine output. Her TSH is high. We will give Synthroid 0.05 mg daily po.DD: Bolivar Sotomayor MD, 05/07/20 09:47DT: [facility] 05/07/20 11:07DS: Bolivar Sotomayor MD, PC 05/19/20 09:33 1 [place] [address] PROGRESS NOTENAME: ANNA Medina ROOM#: [id number] OF : 1940 MR#: [id number] DATE: 05/06/20 2 Name Value Range Interpretation Code Description Data Vivian rce(s) Supporting Document(s) ID Date Data Source [id number] 05/14/2020 11:19:00 [place] [address] PROGRESS NOTENAME: ANNA Medina ROOM#: [id number] OF : 1940 MR#: [id number] DATE: 05/09/20 OF SERVICE: 05/14/20SUBJECTIVE: She was initially admitted with CHF. During her course here, she became quite paranoid. Shebegan refusing food, refusing medications. Urinalysis was clear and clean, but was sent for a culture. She wasa net negative. Her weight had gone down 7 pounds, but as previously noted, she became extremely paranoidto the point where she would not eat or drink. She had ripped out all her IVs and ultimately had taken the lidof a soda can and superficially cut her inner forearms. Her family has been with her. She had agreed to restarther medications. Her home medication bottles and medications were brought in, identified and she is takingthem without difficulty. Her Lyrica has been restarted, atorvastatin, aspirin, her buspirone, Plavix, Coreg, iron,levothyroxine and insulin. She is eating much better. Her INR had dropped secondary to refusing herCoumadin. It has improved. Urine culture came back today 50,000 E. coli and as she is on Coumadin, we didnot use Levaquin. Will give her doxycycline, as it is sensitive.LABORATORY STUDIES: White count up slightly at 13.2, hemoglobin 15.1, hematocrit 45.1, [id number]. Sodium is 144, potassium 3.7, chloride 101, CO2 is 33, glucose is 129. BUN is elevated at 46. Creatinineis 1.5. Her diuretic is being held and p.o. fluids encouraged. Total bilirubin was 2.5; it is down to 1.7. Patientis less paranoid today. I asked her if she had any thoughts of suicide ideations, feelings she no longer wantedto be here and she says at this time and that she was feeling much better. The family is with her. Plan ongetting a psych evaluation before discharge as well as she has been set up for outpatient behavioral health. Shehas a history of a positive nuclear test and will arrange for cardiac catheterization when she is felt to be stableto go for this.OBJECTIVE: Blood pressure today is 128/58. Pulse 60. Respirations 20. O2 saturation is 95% on room air.Patient is alert and oriented x3 today. Pupils equal and reactive to light. EOMs are intact. Pharynx, tongue, andgums pink and moist. Tongue is midline. Neck is supple without lymphadenopathy. No thyromegaly or goiter.Carotids 2+ without bruit. Chest is clear to auscultation without wheezes or retraction. Decreased breathsounds in the base. Heart is regular. Abdomen is benign. Bowel sounds positive. /rectal: Not done.Extremities: No cyanosis, clubbing or edema.ASSESSMENT/PLAN:1. Paranoia, improved. No suicidal ideations or tendencies at this time. Plan psychiatric evaluation.2. CHF, improved. Will get follow up chest x-ray. Hold di uretic as BUN is elevated. Encourage p.o. intake. Monitor I&O.3. UTI with E. coli 50,000. Antibiotics and probiotic.4. Hypertension, stable.5. History of atrial fibrillation, history of valve replacement. INR is increasing. It is up to 1.88. Will give 6 mg of Coumadin today. Recheck INR in the AM. If therapeutic in the AM, will resume her 3 mg a day. 1 [place] [address] PROGRESS NOTENAME: ANNA Medina ROOM#: 108-1DATE OF : 1940 MR#: [id number] DATE: 05/09/20 6. Noninsulin dependent diabetes type 2. Continue to monitor blood sugars. 7. Continue medications as ordered.DD: MARTHA Tobar 05/14/20 19:23DT: JAMEE 05/14/20 23:01DS: MARTHA Tobar 05/18/20 21:01 2 Name Value Range Interpretation Code Description Data Vivian rce(s) Supporting Document(s) ID Date Data Source [id number] 05/13/2020 11:05:00 [place] [address] PROGRESS NOTENAME: ANNA Medina ROOM#: 108-1DATE OF : 1940 MR#: [id number] DATE: 05/09/20 OF SERVICE: 05/13/20SUBJECTIVE: She was initially admitted with CHF. She diuresed well. She became very paranoid. Shewould not take any medication. She was paranoid that they were not hers. She was quite agitated. At onepoint, she took a flip top lid from a soda can and put superficial scratches on her arms. She has a sitter now.She is no longer stating or trying to make any harm to herself as we have her family sitting with her. She had apositive nuclear test and when stabilized, does need to have a cardiac catheterization. We have got her to takeher medications now that her family is with her and hopefully she will have an improved mentation. She didallow labs to be drawn today. White count was normal at 9.4, hemoglobin 15.3, hematocrit 45.5, platelets 205.Sodium is 137, potassium is 3.8, chloride 92, CO2 29, BUN 45, creatinine 1.2. Will stop her diuretic.Nonfasting glucose was 274. CPK is 216. BNP is 6,888. TSH was therapeutic at 4.47. She has no complaintsof increased shortness of breath, only trace bilateral lower extremity edema. She has history of atrialfibrillation and mitral valve replacement. Her protime was slightly low at 1.77. Will order an extra dose ofwarfarin.OBJECTIVE: Blood pressure is 115/62. Pulse 60. Respirations 16. O2 saturation is 95% on room air. Patientis alert and oriented to person and place. More cooperative, but still paranoid. Pharynx, tongue, and gums pinkand moist. Tongue is midline. Neck is supple without lymphadenopathy. No thyromegaly or goiter. Chest hasdecreased breath sounds. No wheeze or retraction. Heart is regular. Abdomen is benign. Bowel soundspositive. /rectal: Not done. Extremities: Trace cyanosis and clubbing. No edema.ASSESSMENT/PLAN:1. CHF, improving. Patient slightly dry from having not taken p.o. well for 2 days. Hold diuretic today. Get follow up chest x-ray. Weight is down 7 pounds.2. Diabetes. Fingerstick blood sugar-she did allow us to check it before lunch and it was 150. Will continue to monitor. If she begins taking more in by mouth, will reinstitute long acting insulin.3. Paranoid behavior. Try Seroquel.4. Questionable suicide attempt with superficial lacerations to the wrists. Will have a sitter until patient can be evaluated.5. Follow up chest x-ray in the AM.6. Continue other medications without change.DD: MARTHA Tobar 05/13/20 20:59DT: [facility] 05/13/20 22:51DS: Joselin Leon, MARTHA 05/18/20 21:01 1 Name Value Range Interpretation Code Description Data Vivian rce(s) Supporting Document(s) ID Date Data Source [id number] 05/15/2020 07:09:00 [place] [address] DISCHARGE SUMMARYNAME: ANNA Medina ROOM#: 108-1DATE OF : 1940 MR#: [id number] PHYS: Bolivar Sotomayor MD, PC DATE: 05/09/20 DISCHARGED:HISTORY OF PRESENT ILLNESS:This is an 80-year-old female who presented to the emergency room with lightheadedness and shortness ofbreath. She is O2 dependent. She normally wears O2 at 2 liters. She got out of the shower, she feltlightheaded, very short of breath, called EMS, came to the emergency room. O2 saturation was 88%. Work upand assessment were done and patient was admitted to the service of Dr. Sotomayor for CHF. She was started on aLasix drip, daily weights, case monitor, 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 She had had a positive nuclear test, but hadwanted to wait until after the holidays for further work up and cardiac catheterization. She states she has hadno chest pain, just the shortness of breath. She has history of valve replacement, history of atrial fibrillation.She continues on Coumadin. She has history of hypercholesteremia, on a statin, coronary artery disease onaspirin and Plavix, history of COPD on O2 and p.r.n. Albuterol for shortness of breath, history of Vitamin Don supplement, history of insulin dependent diabetes on Toujeo and history of hypertension.LABORATORY STUDIES:White count on admission was 7.6, hemoglobin 13.2, hematocrit 40.5. Platelets were slightly low at 135.Serial CBCs were done. On the , white count was up slightly at 13.1. Patient had had some confusion andaltered mental status, paranoia. Urine for culture had been sent. Urinalysis looked fairly clear, but culturecame back E. coli. Patient placed on antibiotic and on day of transfer/discharge, white count is 6.8,hemoglobin 15, hematocrit 44.4 and platelets improved to 166. On admission, sodium was 134, potassium was4.6, chloride 91, CO2 36, nonfasting glucose 304, BUN was 23, creatinine was 1.3. Total bilirubin was 1.5,alkaline phosphatase 257. BNP was 8942. Serial CMPs were done. Initial TSH was 8.43. She continued on herlevothyroxine and recheck TSH on 05/12 was 4.47. Magnesium was 1.9 on the , 1.8 on the , 1.9 on thet, 2.1 on the . It remained stable. Serial Troponins were done and were less than 0.01. Ammonia level wasnormal. Serial PT/INRs were done and her INR had dipped low when she had refused her Coumadin for 2days and it is now back up to 2.01 and she continues on 3 mg a day. Hemoglobin A1C was 10.7 and bloodsugars have been monitored. The importance of consistent carbs was explained to the family and patient. Lasixdrip was continued. BNP improved to 5359.RADIOLOGY STUDIES:Portable chest on 05/[address] of the thorax without contrast on the showed cardiomegaly withmild right pleural effusion, ground glass attenuation right upper lobe with increased markings throughout thelungs. Diagnostic considerations were acute inflammatory disease and/or congestive heart failure. CT of thehead was done on the as patient was having paranoia and some altered mental status and it showed noevidence for intracranial hemorrhage, mass, lesion, abnormal fluid collection or acute large vessel tertiaryischemia. Mild patchy periventricular and subcortical white matter low attenuation, nonspecific but mostlycommonly the sequelae of small vessel ischemic disease. 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 Chest x-ray 2- view on the showed CHF, cardiomegaly, underlying COPD. Follow up chest x-ray showedimproving CHF. 1 [place] [id number] DISCHARGE SUMMARYNAME: ANNA Medina ROOM#: [id number] OF : 1940 MR#: [id number] PHYS: Bolivar Sotomayor MD, PC [facility] [id number] DATE: 05/09/20 DISCHARGED:HOSPITAL COURSE:The patient was admitted, placed on a Lasix drip, monitored. She continued to show paced rhythm. On kvd32ms, she had no chest pain. Ejection fraction on her echo was 30-40%. On the 1st, she was feeling well, sittingup in the chair, felt her breathing was getting back to baseline. Weight was down 4 pounds. She was slightlyhypokalemic, but potassium was replaced. She was net negative about 3 liters. Treatments were continued.On the , she had become quite paranoid. She was given a dose of Seroquel, which she spit out. She was stilloriented to person and place, but inappropriate when discussing why she did not take her medications. Shewas vague, she wanted to go home. She felt everyone was spying on her. She did take her IV antibiotics andbreathing treatments, but refused the rest of her medications. CT of the head was done. She was cooperativefor it. It showed no abnormalities. On the , congestive heart failure was getting better, but she continued tohave periods of confusion, irritated, agitated at times, wanted to go home. She did not sleep well. Shecontinued to be agitated. Edema in her legs was better. On the , she was very irritated. With a can of sodalid, she tried to cut both her wrists. Small superficial lacerations on the right wrist and the left wrist. She had ascratch on the right side of her neck. She did not want to take any medications. She was assessed also by . She was given Valium 5. Her family was asked in as they calmed her. On the , her family wassitting with her. She was no longer trying to harm herself. She was having no chest pain. Her breathing wasimproved. Her home medications had been brought in and she was willing to take them and she had nocomplaints of chest pain. Her O2 saturations were 95%. Weight was now down 7 pounds. Diuretic was onhold. For paranoid behavior, Seroquel was tried. A sitter was still in place for evaluation after havingsuperficial lacerations to the wrists. She was denying that she was any longer suicidal. On the , her weightremained down. She was less paranoid. She had restarted her medications. She was eating better. Hermentation was improving. Urine culture had shown 50,000 of E. coli. She was on Doxycycline. When asked iftash had any thoughts of suicide ideations or feeling she "no longer wanted to be here", she says not at thistime. She was feeling much better. She was set up for outpatient behavioral health and we were investigating apsych evaluation before discharge. INR was improving. Today the , she is again improved. She is feelingbetter. She has no suicidal ideations. Her and her are going to go to her daughter's house for theweekend upon discharge. Discussed with Dr. Sotomayor. She will follow up with him next week in the office ifcleared for discharge by psych. She states her breathing is excellent. It is at baseline. Vitals have been stable.Labs are improving. Chest x-ray is improving. Discussed with ER, Dr. Garcia andsocial worker and the ER behavioral health and patient will be transferred for psych evaluation and if deemedsafe to go home, will be discharged to home. Patient will be transferred via ambulance. Patient is agreeable.DISCHARGE/TRANSFER DIAGNOSIS: 1. CHF, improved. 2. Altered mental status, improved. 3. Paranoia, improved. No suicidal ideations. 4. Insulin dependent diabetes type 2, continue diet, medication, insulin and fingersticks. 5. Hypertension, stable. 2 [place] [address] DISCHARGE SUMMARYNAME: ANNA Medina ROOM#: [id number] OF : 1940 MR#: [id number] PHYS: Bolivar Sotomayor MD, PC DATE: 05/09/20 DISCHARGED: 6. Coronary artery disease. Follow up with Dr. Sotomayor. Ultimately schedule for cardiac catheterization. 7. History of atrial fibrillation, history of pacemaker. Continues on Coumadin. PT/INR is ordered. 8. UTI. Finish Doxycycline.Patient will be transferred to [facility] via ambulance.TRANSFER/DISCHARGE PLANS:1. Transfer to [facility].2. Follow up with Dr. Sotomayor on Monday.3. Follow up 06/02/20 at 9 AM with behavioral health.4. Activity as tolerated.5. Call the office of Dr. Cm for a one week follow up.6. Labs on Monday: Protime, CBC, CMP.DISCHARGE MEDICATIONS: 1. Aspirin 81 mg p.o. daily 2. Lyrica 75 mg p.o. twice a day 3. Vitamin D 1000 units daily 4. Albuterol 0.83% 1 inhalation q 6 hours p.r.n. shortness of breath or wheeze 5. Allopurinol 100 mg p.o. twice a day 6. Ascorbic acid 500 mg p.o. daily 7. Coreg 6.25 mg p.o. twice a day 8. Atorvastatin 80 mg p.o. at bedtime 9. Calcitriol 0.25 mcg p.o. daily 10. Plavix 75 mg p.o. daily 11. Ferrous gluconate 325 mg p.o. daily 12. Levothyroxine 100 mcg p.o. daily 13. Tylenol 650 mg p.o. daily 14. Toujeo 40 units subcutaneous at bedtime 15. Warfarin sodium 3 mg daily in the evening 16. Buspirone 7.5 mg p.o. twice a day 17. Omeprazole 20 mg p.o. daily 18. Valsartan 40 mg p.o. q h.s. 19. Lumigan 0.01% 1 drop each eye daily 20. Doxycycline 100 mg p.o. twice a day for 7 days 21. Potassium 10 mEq 3x a day 22. Seroquel 25 mg at bedtime as needed 23. Tradjenta 5 mg p.o. daily 3 [place] [address] DISCHARGE SUMMARYNAME: ANNA Medina ROOM#: [id number] OF : 1940 MR#: [id number] PHYS: Bolivar Sotomayor MD, PC DATE: 05/09/20 DISCHARGED:No diuretic at this time. BUN is still elevated at 40, creatinine is 1.3.Patient transferred in stable condition.DD: Joselin Raines Edward, MARTHA 05/15/20 18:33DT: DMJewell 05/15/20 18:39DS: Joselin Raines Shawnaalo, MANAGER OF BROADCAST CONTENT 05/18/20 21:01 4 Name Value Range Interpretation Code Description Data Vivian rce(s) Supporting Document(s) ID Date Data Source [id number] 05/15/2020 11:45:00 AM EST [facility] [address] [place] [address] [place] [address] PHONE: [phone] FAX: [phone] Name .................. : ANNA Medina Acct Number.................. : [id number] ROOM. ................. : 108-1 MR Number ................... : [id number] Stay type ............. : I/P Discharge Date......... ... : Admit Date ......... : 05/09/20 Admit Phys .................... : MANUEL HERRMANN Date of ....... : 1940 Family Phys ................... : NAUN MTZ Phone .................. : [phone] Age ................................ : 80 Film# .................. .:[id number] Sex ................................. : F Unsigned transcriptions are preliminary reports and do not represent a medical or legal document CHEST 2 VIEWS [id number] COMPLETE:05/14/20 22:38 DLA 1688 (REASON FOR CHEST: f/u chf CHEST X-RAY: 2-VIEWS INDICATION: Follow up CHF. FINDINGS: There is improving CHF. Mild pulmonary vascular congestion is still noted. The cardiac silhouette is enlarged. There is evidence of prior cardiac surgery. A left-sided cardiac conduction device is visualized. No acute osseous abnormality. IMPRESSION: Improving CHF. Electronically Reviewed and Signed By Anselmo Bernstein M.D. , 05/15/20 11:45, DCLigia Transcribe Initials: MILLY , Transcribe Date: 05/15/20 00:57, Dictation Date: Copy for: 002 MSP Copy for: 710 MED REC Page 1 of 1 Name Value Range Interpretation Code Description Data Vivian rce(s) Supporting Document(s) ID Date Data Source [id number] 05/15/2020 05:33:00 AM EST [facility] (Bolivar Sotomayor MD) Name Value Range Interpretation Code Description Data Vivian rce(s) Supporting Document(s) Laboratory test finding (navigational concept) 139 meq/L 134-153 [facility] (Bolivar Sotomayor MD) Laboratory test finding (navigational concept) Laboratory test result [facility] (Bolivar Sotomayor MD) COMPREHENSIVE METABOLIC PANEL Laboratory test finding (navigational concept) 97 meq/L 98-107 Below low normal [facility] (Bolivar Sotomayor MD) Laboratory test finding (navigational concept) 3.6 meq/L 3.6-5.0 [facility] (Bolivar Sotomayor MD) Laboratory test finding (navigational concept) 35 meq/L 22-30 Above high normal [facility] (Bolivar Sotomayor MD) Laboratory test finding (navigational concept) 145 mg/dL 6 5-110 Above high normal [facility] (Bolivar Sotomayor MD) Laboratory test finding (navigational concept) 40 mg/dL 7-21 Above high normal [facility] (Bolivar Sotomayor MD) Laboratory test finding (navigational concept) 31 8-27 Above high normal [facility] (Bolivar Sotomayor MD) Laboratory test finding (navigational concept) 5.4 g/dL 6 .3-8.2 Below low normal [facility] (Bolivar Sotomayor MD) Laboratory test finding (navigational concept) 1.3 mg/dL 0.7-1.5 [facility] (Bolivar Sotomayor MD) Laboratory test finding (navigational concept) 2.0 GM/DL 2 .4-3.2 Below low normal [facility] (Bolivar Sotomayor MD) Laboratory test finding (navigational concept) 3.4 g/dL 3 .9-5.0 Below low normal [facility] (Bolivar Sotomayor MD) Laboratory test finding (navigational concept) 1.7 0.8-2.0 [facility] (Bolivar Sotomayor MD) Laboratory test finding (navigational concept) 8.7 mg/dL 8.4-10.2 [facility] (Bolivar Sotomayor MD) Laboratory test finding (navigational concept) 182 U/L 38-126 Above high normal [facility] (Bolivar Sotomayor MD) Laboratory test finding (navigational concept) 1.3 mg/dL 0.2-1.3 [facility] (Bolivar Sotomayor MD) Laboratory test finding (navigational concept) 7.0 mmol/L 8 .0-16.0 Below low normal [facility] (Bolivar Sotomayor MD) Laboratory test finding (navigational concept) 25 U/L 5-40 [facility] (Bolivar Sotomayor MD) Laboratory test finding (navigational concept) 12 U/L 7-56 [facility] (Bolivar Sotomayor MD) Laboratory test finding (navigational concept) Laboratory test result [facility] (Bolivar Sotomayor MD) Male GFR Interprentation 20-49 yrs >60 mL/min Normal 50-59 yrs >56 mL/min Normal 60-69 yrs >49 mL/min Normal 70-79yrs >42 mL/min Normal 80 and above >35 mL/min Normal Female GFR Interpretation 20-39 yrs >60 mL/min Normal 40-49 yrs >58 mL/min Normal 50-59 yrs >51 mL/min Normal 60-69 yrs >45 mL/min Normal 70-79 yrs >39 mL/min Normal 80 and above >32 mL/min Normal Laboratory test finding (navigational concept) 80 yrs [facility] (Bolivar Sotomayor MD) Laboratory test finding (navigational concept) 42 mL/min [facility] (Bolivar Sotomayor MD) ID Date Data Source [id number] 05/15/2020 05:33:00 AM EST [facility] (Bolivar Sotomayor MD) Name Value Range Interpretation Code Description Data Vivian rce(s) Supporting Document(s) Laboratory test finding (navigational concept) Laboratory test result [facility] (Bolivar Sotomayor MD) COMPLETE BLOOD COUNT Laboratory test finding (navigational concept) 6.8 10^3/uL 4.2-11.0 [facility] (Bolivar Sotomayor MD) Laboratory test finding (navigational concept) 4.84 10^6/uL 4.20-5.40 [facility] (Bolivar Sotomayor MD) Laboratory test finding (navigational concept) 44.4 % 37.0-47.0 [facility] (Bolivar Sotomayor MD) Laboratory test finding (navigational concept) 15.0 g/dL 12.0-16.0 [facility] (Bolivar Sotomayor MD) Laboratory test finding (navigational concept) 31.0 pg 27.0-34.0 [facility] (Bolivar Sotomayor MD) Laboratory test finding (navigational concept) 33.8 g/dL 31.0-36.0 [facility] (Bolivar Sotomayor MD) Laboratory test finding (navigational concept) 91.7 fL 81.0-101 [facility] (Bolivar Sotomayor MD) Laboratory test finding (navigational concept) 166 10^3/uL 150-450 [facility] (Bolivar Sotomayor MD) Laboratory test finding (navigational concept) 16.7 % 1 1.5-14.5 Above high normal [facility] (Bolivar Sotomayor MD) Laboratory test finding (navigational concept) 11.9 fL 7 .4-10.4 Above high normal [facility] (Bolivar Sotomayor MD) Laboratory test finding (navigational concept) 22.7 % 2 5.0-40.0 Below low normal [facility] (Bolivar Sotomayor MD) Laboratory test finding (navigational concept) 9.7 % 3.0-8.0 Above high normal [facility] (Bolivar Sotomayor MD) Laboratory test finding (navigational concept) 60.6 % 37.0-80.0 [facility] (Bolivar Sotomayor MD) Laboratory test finding (navigational concept) 6.2 % 0.0-7.0 [facility] (Bolivar Sotomayor MD) Laboratory test finding (navigational concept) 0.4 % 0.0-2.5 [facility] (Bolivar Sotomayor MD) Laboratory test finding (navigational concept) 4.10 10^3/uL 2.00-6.90 [facility] (Bolivar Sotomayor MD) Laboratory test finding (navigational concept) 0.4 % 0.0-0.0 Above high normal [facility] (Bolivar Sotomayor MD) Laboratory test finding (navigational concept) 0.0 % 0.0-0.0 [facility] (Bolivar Sotomayor MD) Laboratory test finding (navigational concept) 0.42 10^3/uL 0.00-0.70 [facility] (Bolivar Sotomayor MD) Laboratory test finding (navigational concept) 1.54 10^3/uL 0.60-3.40 [facility] (Bolivar Sotomayor MD) Laboratory test finding (navigational concept) 0.66 10^3/uL 0.00-0.90 [facility] (Bolivar Sotomayor MD) Laboratory test finding (navigational concept) 0.03 10^3/uL 0.00-0.10 [facility] (Bolivar Sotomayor MD) Laboratory test finding (navigational concept) 0.00 10^3/uL 0.00-0.00 [facility] (Bolivar Sotomayor MD) Laboratory test finding (navigational concept) 0.03 10^3/uL 0.00-0.20 [facility] (Bolivar Sotomayor MD) Laboratory test finding (navigational concept) Laboratory test result [facility] (Bolivar Sotomayor MD) Laboratory test finding (navigational concept) Laboratory test result [facility] (Bolivar Sotomayor MD) ID Date Data Source [id number] 05/15/2020 05:33:00 AM EST [facility] (Bolivar Sotomayor MD) Name Value Range Interpretation Code Description Data Vivian rce(s) Supporting Document(s) Laboratory test finding (navigational concept) 23.7 s 1 1.0-15.5 Above high normal [facility] (Bolivar Sotomayor MD) Laboratory test finding (navigational concept) 2.01 0 .93-1.23 Above high normal [facility] (Bolivar Sotomayor MD) \\BLDo\\INR INTERPRETATION\\BLDx\\ Therapeutic range for Coumadin and related oral anticoagulants. -International Normalized Ratio (INR): 2 .0 - 3.0 for Venous Thrombosis, Pulmonary Embolus, Tissue heart valves, Acute ME, Atrial Fibrillation, Valvular heart disease and recurrent Systemic Embolism. -International Normalized Ratio (INR): 2 .5 - 3.5 for Mechanical Prosthetic valve. ID Date Data Source [id number] 05/15/2020 07:20:00 AM EST [facility] Name Value Range Interpretation Code Description Data [facility](s) Supporting Document(s) COMPREHENSIVE METABOLIC PANEL [facility] COMPREHENSIVE METABOLIC PANEL Sodium [Moles/volume] in Serum or Plasma 139 mEq/L 134 - 153 [facility] Potassium [Moles/volume] in Serum or Plasma 3.6 mEq/L 3.6 - 5.0 [facility] Chloride [Moles/volume] in Serum or Plasma 97 mEq/L 98 - 107 L [facility] Carbon dioxide, total [Moles/volume] in Serum or Plasma 35 MEQ/L 22 - 30 H [facility] Glucose [Mass/volume] in Serum or Plasma 145 MG/DL 65 - 110 H [facility] BUN 40 MG/DL 7 - 21 H [facility] Creatinine [Mass/volume] in Serum or Plasma 1.3 MG/DL 0.7 - 1.5 [facility] BUN/CREAT 31 8 - 27 H [facility] Protein [Mass/volume] in Serum or Plasma 5.4 G/DL 6.3 - 8.2 L [facility] Albumin [Mass/volume] in Serum or Plasma 3.4 G/DL 3.9 - 5.0 L [facility] Globulin [Mass/volume] in Serum by calculation 2.0 GM/DL 2.4 - 3.2 L [facility] A/G RATIO 1.7 0.8 - 2.0 [facility] Calcium [Mass/volume] in Serum or Plasma 8.7 MG/DL 8.4 - 10.2 [facility] Bilirubin.total [Mass/volume] in Serum or Plasma 1.3 MG/DL 0.2 - 1.3 [facility] Alkaline phosphatase [Enzymatic activity/volume] in Serum or Plasma 182 U/L 38 - 126 H [facility] Aspartate aminotransferase [Enzymatic activity/volume] in Serum or Plasma 25 U/L 5 - 40 [facility] Alanine aminotransferase [Enzymatic activity/volume] in Seru m or Plasma 12 U/L 7 - 56 [facility] Anion gap 3 in Serum or Plasma 7.0 mmol/L 8.0 - 16.0 L [facility] AGE 80 yrs [facility] al NON-AA GFR 42 mL/min [facility] iggy AFR AMER GFR >60 [facility] Male GFR In terprentation 20-49 yrs >60 mL/min Normal 50-59 yrs >56 mL/min Normal 60-69 yrs >49 mL/min Normal 70-79yrs >42 mL/min Normal 80 and above >35 mL/min Normal Female GFR Interpretation 20-39 yrs >60 mL/min Normal 40-49 yrs >58 mL/min Normal 50-59 yrs >51 mL/min Normal 60-69 yrs >45 mL/min Normal 70-79 yrs >39 mL/min Normal 80 and above >32 mL/min Normal ID Date Data Source [id number] 05/15/2020 06:58:00 AM EST [facility] Name Value Range Interpretation Code Description Data Vivian rce(s) Supporting Document(s) CBC W/AUTOMATED DIFF [facility] COMPLETE BLOOD COUNT Leukocytes [#/volume] in Blood by Automated count 6.8 10^3/uL 4.2 - 1 1.0 [facility] Erythrocytes [#/volume] in Blood by Automated count 4.84 10^6/uL 4. 20 - 5.40 [facility] Hemoglobin [Mass/volume] in Blood 15.0 g/dL 12.0 - 16.0 [facility] Hematocrit [Volume Fraction] of Blood by Automated count 44.4 % 3 7.0 - 47.0 [facility] Erythrocyte mean corpuscular volume [Entitic volume] by Auto mated count 91.7 fL 81.0 - 101 [facility] Erythrocyte mean corpuscular hemoglobin [Entitic mass] by Automated count 31.0 pg 27.0 - 34.0 [facility] Erythrocyte mean corpuscular hemoglobin concentration [Mass/volume] by Automated count 33.8 g/dL 31.0 - 36.0 [facility] Erythrocyte distribution width [Ratio] by Automated count 16.7 % 11.5 - 14.5 H [facility] Platelets [#/volume] in Blood by Automated count 166 10^3/uL 150 - 45 0 [facility] Platelet mean volume [Entitic volume] in Blood by Automated count 11.9 fL 7.4 - 10.4 H [facility] Neutrophils/100 leukocytes in Blood by Automated count 60.6 % 37. 0 - 80.0 [facility] Lymphocytes/100 leukocytes in Blood by Manual count 22.7 % 25.0 - 40.0 L [facility] Monocytes/100 leukocytes in Blood by Automated count 9.7 % 3.0 - 8.0 H [facility] Eosinophils/100 leukocytes in Blood by Automated count 6.2 % 0.0 - 7.0 [facility] Basophils/100 leukocytes in Blood by Automated count 0.4 % 0.0 - 2.5 [facility] %IG 0.4 % 0.0 - 0.0 H [facility] al %NRBC 0.0 % 0.0 - 0.0 [facility] al Neutrophils [#/volume] in Blood by Automated count 4.10 10^3/uL 2.00 - 6.90 [facility] Lymphocytes [#/volume] in Blood by Automated count 1.54 10^3/uL 0.60 - 3.40 [facility] Monocytes [#/volume] in Blood by Automated count 0.66 10^3/uL 0.00 - 0.90 [facility] Eosinophils [#/volume] in Blood by Automated count 0.42 10^3/uL 0.00 - 0.70 [facility] Basophils [#/volume] in Blood by Automated count 0.03 10^3/uL 0.00 - 0.20 [facility] #IG 0.03 10^3/uL 0.00 - 0.10 [facility] #NRBC 0.00 10^3/uL 0.00 - 0.00 [facility] ospital MANUAL DIFF NOT INDICATED [facility] RBC MORPH NOT INDICATED [facility] ID Date Data Source [id number] 05/15/2020 06:57:00 AM EST [facility] Name Value Range Interpretation Code Description Data Vivian rce(s) Supporting Document(s) Prothrombin time (PT) 23.7 SECONDS 11.0 - 15.5 H [facility] INR in Platelet poor plasma by Coagulation assay 2.01 0.93 - 1. 23 H [facility] \\BLDo\\INR INTERPRETATION\\BLDx\\ Therapeutic range for Coumadin and related oral anticoagulants. - International Normalized Ratio (INR): 2.0 - 3.0 for Venous Thrombosis, Pulmonary Embolus, Tissue heart valves, Acute ME, Atrial Fibrillation, Valvular heart disease and recurrent Systemic Embolism. -International Normalized Ratio (INR): 2.5 - 3.5 for Mechanical Prosthetic valve. ID Date Data Source [id number] 05/14/2020 05:26:00 AM EST [facility] (Bolivar Sotomayor MD) Name Value Range Interpretation Code Description Data Vivian rce(s) Supporting Document(s) Laboratory test finding (navigational concept) Laboratory test result [facility] (Bolivar Sotomayor MD) COMPREHENSIVE METABOLIC PANEL Laboratory test finding (navigational concept) 3.7 meq/L 3.6-5.0 [facility] (Bolivar Sotomayor MD) Laboratory test finding (navigational concept) 144 meq/L 134-153 [facility] (Bolivar Sotomayor MD) Laboratory test finding (navigational concept) 33 meq/L 22-30 Above high normal [facility] (Bolivar Sotomayor MD) Laboratory test finding (navigational concept) 101 meq/L 98-107 [facility] (Bolivar Sotomayor MD) Laboratory test finding (navigational concept) 1.5 mg/dL 0.7-1.5 [facility] (Bolivar Sotomayor MD) Laboratory test finding (navigational concept) 46 mg/dL 7-21 Above high normal [facility] (Bolivar Sotomayor MD) Laboratory test finding (navigational concept) 129 mg/dL 6 5-110 Above high normal [facility] (Bolivar Sotomayor MD) Laboratory test finding (navigational concept) 31 8-27 Above high normal [facility] (Bolivar Sotomayor MD) Laboratory test finding (navigational concept) 5.5 g/dL 6 .3-8.2 Below low normal [facility] (Bolivar Sotomayor MD) Laboratory test finding (navigational concept) 3.5 g/dL 3 .9-5.0 Below low normal [facility] (Bolivar Sotomayor MD) Laboratory test finding (navigational concept) 2.0 GM/DL 2 .4-3.2 Below low normal [facility] (Bolivar Sotomayor MD) Laboratory test finding (navigational concept) 1.8 0.8-2.0 [facility] (Bolivar Sotomayor MD) Laboratory test finding (navigational concept) 9.0 mg/dL 8.4-10.2 [facility] (Bolivar Sotomayor MD) Laboratory test finding (navigational concept) 197 U/L 38-126 Above high normal [facility] (Bolivar Sotomayor MD) Laboratory test finding (navigational concept) 1.7 mg/dL 0 .2-1.3 Above high normal [facility] (Bolivar Sotomayor MD) Laboratory test finding (navigational concept) 14 U/L 7-56 [facility] (Bolivar Sotomayor MD) Laboratory test finding (navigational concept) 30 U/L 5-40 [facility] (Bolivar Sotomayor MD) Laboratory test finding (navigational concept) 10.0 mmol/L 8.0-16.0 [facility] (Bolivar Sotomayor MD) Laboratory test finding (navigational concept) 80 yrs [facility] (Bolivar Sotomayor MD) Laboratory test finding (navigational concept) Laboratory test result [facility] (Bolivar Sotomayor MD) Male GFR Interprentation 20-49 yrs >60 mL/min Normal 50-59 yrs >56 mL/min Normal 60-69 yrs >49 mL/min Normal 70-79yrs >42 mL/min Normal 80 and above >35 mL/min Normal Female GFR Interpretation 20-39 yrs >60 mL/min Normal 40-49 yrs >58 mL/min Normal 50-59 yrs >51 mL/min Normal 60-69 yrs >45 mL/min Normal 70-79 yrs >39 mL/min Normal 80 and above >32 mL/min Normal Laboratory test finding (navigational concept) 36 mL/min [facility] (Bolivar Sotomayor MD) ID Date Data Source [id number] 05/14/2020 05:26:00 AM EST [facility] (Bolivar Sotomayor MD) Name Value Range Interpretation Code Description Data Vivian rce(s) Supporting Document(s) Laboratory test finding (navigational concept) Laboratory test result [facility] (Bolivar Sotomayor MD) COMPLETE BLOOD COUNT Laboratory test finding (navigational concept) 5.02 10^6/uL 4.20-5.40 [facility] (Bolivar Sotomayor MD) Laboratory test finding (navigational concept) 13.2 10^3/uL 4 .2-11.0 Above high normal [facility] (Bolivar Sotomayor MD) Laboratory test finding (navigational concept) 45.1 % 37.0-47.0 [facility] (Bolivar Sotomayor MD) Laboratory test finding (navigational concept) 89.8 fL 81.0-101 [facility] (Bolivar Sotomayor MD) Laboratory test finding (navigational concept) 15.1 g/dL 12.0-16.0 [facility] (Bolivar Sotomayor MD) Laboratory test finding (navigational concept) 30.1 pg 27.0-34.0 [facility] (Bolivar Sotomayor MD) Laboratory test finding (navigational concept) 16.4 % 1 1.5-14.5 Above high normal [facility] (Bolivar Sotomayor MD) Laboratory test finding (navigational concept) 33.5 g/dL 31.0-36.0 [facility] (Bolivar Sotomayor MD) Laboratory test finding (navigational concept) 198 10^3/uL 150-450 [facility] (Bolivar Sotomayor MD) Laboratory test finding (navigational concept) 12.2 fL 7 .4-10.4 Above high normal [facility] (Bolivar Sotomayor MD) Laboratory test finding (navigational concept) 77.3 % 37.0-80.0 [facility] (Bolivar Sotomayor MD) Laboratory test finding (navigational concept) 8.9 % 3.0-8.0 Above high normal [facility] (Bolivar Sotomayor MD) Laboratory test finding (navigational concept) 11.3 % 2 5.0-40.0 Below low normal [facility] (Bolivar Sotomayor MD) Laboratory test finding (navigational concept) 2.1 % 0.0-7.0 [facility] (Bolivar Sotomayor MD) Laboratory test finding (navigational concept) 0.2 % 0.0-0.0 Above high normal [facility] (Bolivar Sotomayor MD) Laboratory test finding (navigational concept) 0.0 % 0.0-0.0 [facility] (Bolivar Sotomayor MD) Laboratory test finding (navigational concept) 0.2 % 0.0-2.5 [facility] (Bolivar Sotomayor MD) Laboratory test finding (navigational concept) 1.49 10^3/uL 0.60-3.40 [facility] (Bolivar Sotomayor MD) Laboratory test finding (navigational concept) 10.19 10^3/uL 2 .00-6.90 Above high normal [facility] (Bolivar Sotomayor MD) Laboratory test finding (navigational concept) 1.18 10^3/uL 0 .00-0.90 Above high normal [facility] (Bolivar Sotomayor MD) Laboratory test finding (navigational concept) 0.03 10^3/uL 0.00-0.20 [facility] (Bolivar Sotomayor MD) Laboratory test finding (navigational concept) 0.28 10^3/uL 0.00-0.70 [facility] (Bolivar Sotomayor MD) Laboratory test finding (navigational concept) Laboratory test result [facility] (Bolivar Sotomayor MD) Laboratory test finding (navigational concept) 0.03 10^3/uL 0.00-0.10 [facility] (Bolivar Sotomayor MD) Laboratory test finding (navigational concept) 0.00 10^3/uL 0.00-0.00 [facility] (Bolivar Sotomayor MD) Laboratory test finding (navigational concept) 85 % 37-80 Above high normal [facility] (Bolivar Sotomayor MD) Laboratory test finding (navigational concept) 5 % 3-8 [facility] (Bolivar Sotomayor MD) Laboratory test finding (navigational concept) 9 % 25-40 Below low normal [facility] (Bolivar Sotomayor MD) Laboratory test finding (navigational concept) Laboratory test result [facility] (Bolivar Sotomayor MD) Laboratory test finding (navigational concept) 1 % 0-7 [facility] (Bolivar Sotomayor MD) Laboratory test finding (navigational concept) Laboratory test r esult Abnormal (applies to non-numeric results) [facility] (Bolivar Sotomayor MD ) Laboratory test finding (navigational concept) Laboratory test r esult Abnormal (applies to non-numeric results) [facility] (Bolivar Sotomayor MD ) { SICKLE CELL (NORMAL: NONE SEEN ) Laboratory test finding (navigational concept) Laboratory test r esult Abnormal (applies to non-numeric results) [facility] (Bolivar Sotomayor MD ) Laboratory test finding (navigational concept) Laboratory test result [facility] (Bolivar Sotomayor MD) COMMENT: Laboratory test finding (navigational concept) Laboratory test r esult Abnormal (applies to non-numeric results) [facility] (Bolivar Sotomayor MD ) ID Date Data Source [id number] 05/14/2020 05:26:00 AM EST [facility] (Bolivar Sotomayor MD) Name Value Range Interpretation Code Description Data Vivian rce(s) Supporting Document(s) Laboratory test finding (navigational concept) 1.82 0 .93-1.23 Above high normal [facility] (Bolivar Sotomayor MD) \\BLDo\\INR INTERPRETATION\\BLDx\\ Therapeutic range for Coumadin and related oral anticoagulants. -International Normalized Ratio (INR): 2 .0 - 3.0 for Venous Thrombosis, Pulmonary Embolus, Tissue heart valves, Acute ME, Atrial Fibrillation, Valvular heart disease and recurrent Systemic Embolism. -International Normalized Ratio (INR): 2 .5 - 3.5 for Mechanical Prosthetic valve. Laboratory test finding (navigational concept) 22.0 s 1 1.0-15.5 Above high normal [facility] (Bolivar Sotomayor MD) ID Date Data Source [id number] 05/14/2020 08:11:00 AM [facility] Name Value Range Interpretation Code Description Data Vivian e(s) Supporting Document(s) CBC W/AUTOMATED DIFF [facility] COMPLETE BLOOD COUNT Leukocytes [#/volume] in Blood by Automated count 13.2 10^3/uL 4.2 - 11.0 H [facility] Erythrocytes [#/volume] in Blood by Automated count 5.02 10^6/uL 4. 20 - 5.40 [facility] Hemoglobin [Mass/volume] in Blood 15.1 g/dL 12.0 - 16.0 [facility] Hematocrit [Volume Fraction] of Blood by Automated count 45.1 % 3 7.0 - 47.0 [facility] Erythrocyte mean corpuscular volume [Entitic volume] by Auto mated count 89.8 fL 81.0 - 101 [facility] Erythrocyte mean corpuscular hemoglobin [Entitic mass] by Automated count 30.1 pg 27.0 - 34.0 [facility] Erythrocyte mean corpuscular hemoglobin concentration [Mass/volume] by Automated count 33.5 g/dL 31.0 - 36.0 [facility] Erythrocyte distribution width [Ratio] by Automated count 16.4 % 11.5 - 14.5 H [facility] Platelets [#/volume] in Blood by Automated count 198 10^3/uL 150 - 45 0 [facility] Platelet mean volume [Entitic volume] in Blood by Automated count 12.2 fL 7.4 - 10.4 H [facility] Neutrophils/100 leukocytes in Blood by Automated count 77.3 % 37. 0 - 80.0 [facility] Lymphocytes/100 leukocytes in Blood by Manual count 11.3 % 25.0 - 40.0 L [facility] Monocytes/100 leukocytes in Blood by Automated count 8.9 % 3.0 - 8.0 H [facility] Eosinophils/100 leukocytes in Blood by Automated count 2.1 % 0.0 - 7.0 [facility] Basophils/100 leukocytes in Blood by Automated count 0.2 % 0.0 - 2.5 [facility] %IG 0.2 % 0.0 - 0.0 [facility] %NRBC 0.0 % 0.0 - 0.0 [facility] al Neutrophils [#/volume] in Blood by Automated count 10.19 10^3/uL 2. 00 - 6.90 H [facility] Lymphocytes [#/volume] in Blood by Automated count 1.49 10^3/uL 0.60 - 3.40 [facility] Monocytes [#/volume] in Blood by Automated count 1.18 10^3/uL 0.00 - 0.90 H [facility] Eosinophils [#/volume] in Blood by Automated count 0.28 10^3/uL 0.00 - 0.70 [facility] Basophils [#/volume] in Blood by Automated count 0.03 10^3/uL 0.00 - 0.20 [facility] #IG 0.03 10^3/uL 0.00 - 0.10 [facility] #NRBC 0.00 10^3/uL 0.00 - 0.00 [facility] MANUAL DIFF SEE BELOW [facility] ital Segmented neutrophils/100 leukocytes in Blood by Manual count 85 % 37 - 80 H [facility] %LYMPH 9 % 25 - 40 L [facility] %MONO 5 % 3 - 8 [facility] %EOS 1 % 0 - 7 [facility] RBC MORPH SEE BELOW [facility] Anisocytosis [Presence] in Blood by Light microscopy 1+ MARITA L: NONE SEEN A [facility] Poikilocytosis [Presence] in Blood by Light microscopy 1+ NOR MAL: NONE SEEN A [facility] { SICKLE CELL (NORMAL: NONE SEEN ) Cadni cells [Presence] in Blood by Light microscopy 1+ NORMAL: NONE SEEN A [facility] Acanthocytes [Presence] in Blood by Light microscopy 1+ MARITA L: NONE SEEN A [facility] Platelet adequacy [Presence] in Blood by Light microscopy NORMAL NORMAL: NORMAL [facility] COMMENT: ID Date Data Source [id number] 05/14/2020 07:47:00 AM EST [facility] Name Value Range Interpretation Code Description Data Vivian rce(s) Supporting Document(s) COMPREHENSIVE METABOLIC PANEL [facility] COMPREHENSIVE METABOLIC PANEL Sodium [Moles/volume] in Serum or Plasma 144 mEq/L 134 - 153 [facility] Potassium [Moles/volume] in Serum or Plasma 3.7 mEq/L 3.6 - 5.0 [facility] Chloride [Moles/volume] in Serum or Plasma 101 mEq/L 98 - 107 [facility] Carbon dioxide, total [Moles/volume] in Serum or Plasma 33 MEQ/L 22 - 30 H [facility] Glucose [Mass/volume] in Serum or Plasma 129 MG/DL 65 - 110 H [facility] BUN 46 MG/DL 7 - 21 H [facility] Creatinine [Mass/volume] in Serum or Plasma 1.5 MG/DL 0.7 - 1.5 [facility] BUN/CREAT 31 8 - 27 H [facility] Protein [Mass/volume] in Serum or Plasma 5.5 G/DL 6.3 - 8.2 L [facility] Albumin [Mass/volume] in Serum or Plasma 3.5 G/DL 3.9 - 5.0 L [facility] Globulin [Mass/volume] in Serum by calculation 2.0 GM/DL 2.4 - 3.2 L [facility] A/G RATIO 1.8 0.8 - 2.0 [facility] Calcium [Mass/volume] in Serum or Plasma 9.0 MG/DL 8.4 - 10.2 [facility] Bilirubin.total [Mass/volume] in Serum or Plasma 1.7 MG/DL 0.2 - 1.3 H [facility] Alkaline phosphatase [Enzymatic activity/volume] in Serum or Plasma 197 U/L 38 - 126 H [facility] Aspartate aminotransferase [Enzymatic activity/volume] in Serum or Plasma 30 U/L 5 - 40 [facility] Alanine aminotransferase [Enzymatic activity/volume] in Seru m or Plasma 14 U/L 7 - 56 [facility] Anion gap 3 in Serum or Plasma 10.0 mmol/L 8.0 - 16.0 [facility] AGE 80 yrs [facility] NON-AA GFR 36 mL/min [facility] iggy AFR AMER GFR >60 [facility] Male GFR In terprentation 20-49 yrs >60 mL/min Normal 50-59 yrs >56 mL/min Normal 60-69 yrs >49 mL/min Normal 70-79yrs >42 mL/min Normal 80 and above >35 mL/min Normal Female GFR Interpretation 20-39 yrs >60 mL/min Normal 40-49 yrs >58 mL/min Normal 50-59 yrs >51 mL/min Normal 60-69 yrs >45 mL/min Normal 70-79 yrs >39 mL/min Normal 80 and above >32 mL/min Normal ID Date Data Source [id number] 05/14/2020 07:06:00 AM [facility] Name Value Range Interpretation Code Description Data Vivian rce(s) Supporting Document(s) Prothrombin time (PT) 22.0 SECONDS 11.0 - 15.5 H [facility] INR in Platelet poor plasma by Coagulation assay 1.82 0.93 - 1. 23 H [facility] \\BLDo\\INR INTERPRETATION\\BLDx\\ Therapeutic range for Coumadin and related oral anticoagulants. - International Normalized Ratio (INR): 2.0 - 3.0 for Venous Thrombosis, Pulmonary Embolus, Tissue heart valves, Acute ME, Atrial Fibrillation, Valvular heart disease and recurrent Systemic Embolism. -International Normalized Ratio (INR): 2.5 - 3.5 for Mechanical Prosthetic valve. ID Date Data Source [id number] 05/12/2020 11:48:00 [place] [address] PROGRESS NOTENAME: ANNA Medina ROOM#: [id number] OF : 1940 MR#: [id number] DATE: 05/09/20 OF SERVICE: 05/12/20SUBJECTIVE: She was admitted with CHF. She has a history of a positive nuclear test. She did not want tohave a cardiac catheterization until after the holidays. She developed CHF, was admitted and diuresed. Shethen began experiencing paranoia and refusal to take her medications, refusal to keep an IV in. She would nottake any Seroquel. For the last 48 hours, she has not taken any of her medications. She has taken 600 in [place]. She did urinate out 1000 cc. She has allowed us to check her oxygen saturation twice and it is 97-99%.Blood pressure is 164/67. She would only let us take it once. She has refused for 2 days her Allopurinol,aspirin, atorvastatin, Buspirone, iron. She has refused her insulin. She has not taken any food. She refused hervalsartan and her warfarin. She refused her Lasix, her levothyroxine, her potassium, her Lyrica. Today, herhusband came in. We allowed him to come in as she was so paranoid and uncooperative and was becomingaggressive toward herself and the nurses. She tried to cut herself with a soda can flip top and had a superficialscratch. Dr. Sotomayor was in. She did receive Valium, which calmed her some. The granddaughter is with her.She is more calm. Patient is with her granddaughter now and agrees to a lab draw. Will at least try and get aPT/INR as she is on Coumadin, CBC, CMP, Troponin to ascertain medical status. Will get an ammonia andrule out metabolic encephalopathy. Will try Haldol 1 mg IM if she becomes agitated again. Will try and ensuremedical stabilization and then consider transfer for psych evaluation. Will attempt to see if she will allow us achest x-ray. She is not complaining of any shortness of breath or chest pain.OBJECTIVE: She allowed only a limited examination. She was alert, oriented to person and place. Neckwas supple without lymphadenopathy. Chest had decreased breath sounds. No wheeze or retraction, rales orrhonchi. Heart is regular. Abdomen is benign. Bowel sounds are positive. /rectal: Not done. Extremities:Trace bilateral lower extremity pedal edema.ASSESSMENT/PLAN:1. CHF. No shortness of breath. Adequate O2 saturation.2. Hypertension. Blood pressure elevated secondary to not having taken medications.3. Will follow up on current STAT labs that were just drawn.4. She has a history of atrial fibrillation and a permanent pacemaker. She has history of a mitral valve prosthesis. Will see what her current Coumadin level is.5. Will continue to attempt to see if she will take her medications.DD: MARTHA Tobar 05/12/20 18:59DT: JAMEE 05/12/20 23:37DS: MARTHA Tobar 05/13/20 19:07 1 Name Value Range Interpretation Code Description Data Vivian rce(s) Supporting Document(s) ID Date Data Source [id number] 05/10/2020 09:33:00 [place] [address] PROGRESS NOTENAME: ANNA Medina ROOM#: [id number] OF : 1940 MR#: [id number] DATE: 05/09/20 OF SERVICE: 05/10/20SUBJECTIVE: She was admitted with CHF. She has been on a Lasix drip. She is down 4 pounds. L[place]vening, she became quite paranoid. She was given a dose of Seroquel, which she spit out. She is oriented toperson and place, but is inappropriate when discussing why she could not take her medications. She is veryvague. States that she wants to go home. Feels that everyone is spying on her. We have been unable to get herto take her meds this evening. She did take her IV antibiotic and her breathing treatments, but she has refusedthe rest of her medications. I tried to explain to her that she needed her blood thinner. She verbalizedunderstanding and still refused. CT of her head was done which showed no evidence for intracranialhemorrhage, mass lesion, abnormal fluid collection or acute large vessel tertiary ischemia. 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 CT of her chest on the showed cardiomegaly with mild right pleural effusion, ground glassattenuation in the right upper lobe, increased markings throughout the lungs. Diagnostic considerationsinclude acute inflammatory disease and congestive heart failure. She has been on a Lasix drip withimprovement in her breathing. Feel she is reaching her dry weight. Chest x-ray today shows CHF orpneumonic infiltrates, underlying COPD. She has been on an IV Lasix drip since the . Will go to bolus IVin the AM if she allows us to restart her IV.LABORATORY STUDIES: White count is 13.1, hemoglobin is 13.8, hematocrit 41, platelets 183. Sodiumis 138, potassium 3.8, chloride 93. CO2 is improved. It was 43 and 39 and now it is 38. BUN is elevated up to34. I feel she is approaching her dry weight. Have stopped the drip and will start bolus Lasix 40 IV in the AM.BNP is improved from 9000 down to 5300. Blood sugar this morning was 168. Continue her Levemir.OBJECTIVE: Patient is alert and oriented to person and place, but is paranoid, wants to go home, is refusingher medications. Will continue to attempt to administer them. Blood pressure is 116/58. Pulse 60. [id number]. Temperature 97.8. O2 saturation is 96% on 2 liters. Patient is alert and oriented to person and place.Pharynx, tongue, and gums pink and moist. Tongue is midline. Neck is supple without lymphadenopathy. Nothyromegaly or goiter. Chest has decreased breath sounds. No wheeze or retraction. Heart is regular. Abdomenis benign. Bowel sounds positive. /rectal: Not done. Extremities: Trace bilateral lower extremity edema.Peripheral pulses equal and palpable bilaterally.ASSESSMENT/PLAN:1. CHF, improving. Approaching dry weight. Will stop the drip and start bolus Lasix in the AM.2. Paranoia, refusing her medications. Continue to monitor. Give Seroquel. CT scan of her head negative. Urinalysis is clear.3. Pneumonia. Coverage with Levaquin, DuoNebs.4. Hypertension, stable.5. Diabetes. Continue to monitor blood sugars. Continue Levemir and coverage as needed.DD: MARTHA Tobar 05/10/20 20:18 1 [place] [address] PROGRESS NOTENAME: ANNA Medina ROOM#: [id number] OF : 1940 MR#: [id number] DATE: 05/09/20 : JAMEE 05/10/20 21:22DS: MARTHA Tobar 05/13/20 19:07 2 Name Value Range Interpretation Code Description Data Vivian rce(s) Supporting Document(s) ID Date Data Source [id number] 05/09/2020 11:55:00 [place] [address] PROGRESS NOTENAME: ANNA Medina ROOM#: [id number] OF : 1940 MR#: [id number] DATE: 05/06/20 OF SERVICE: 05/09/20SUBJECTIVE: She was admitted with CHF. Her weight is down 4 pounds. She continues on a Lasix drip.LABORATORY STUDIES: White count is 8.3. Hemoglobin is 13.8. Hematocrit is 41.6. Platelets are 173.Sodium is 137, potassium is 4.1, chloride 91, CO2 is improved to 32. Blood sugar was high at 348. Coveragewas given. BUN was elevated at 28. Creatinine 1.2. Will stop her IV Lasix drip as she is approaching dryweight. Will place her on bolus Lasix to start tomorrow. Yesterday, she was net negative approximately 1700.She states she is feeling much better, less short of breath. There is no lower extremity edema. Late evening,she became slightly confused and slightly paranoid. STAT CT head was ordered for altered mental status. INRtoday was 1.6. Gave an extra 5 mg of warfarin.ASSESSMENT: Follow up on CT scan. Recheck PT/INR in the AM. Discontinue Lasix drip and start bolusLasix.DD: MARTHA Tobar 05/09/19 23:16DT: JAMEE 05/09/20 23:51DS: MARTHA Tobar 05/13/20 19:07 1 Name Value Range Interpretation Code Description Data Vivian rce(s) Supporting Document(s) ID Date Data Source [id number] 05/08/2020 11:55:00 [place] [address] PROGRESS NOTENAME: ANNA Medina ROOM#: [id number] OF : 1940 MR#: [id number] DATE: 05/06/20 OF SERVICE: 05/08/20SUBJECTIVE: She is admitted with CHF. She states she fells well. She was sitting up in the chair. She feelsher breathing is about back to baseline.LABORATORY STUDIES: White count is 6.9. Hemoglobin is 12.9. Hematocrit is 39.3. Platelets are 155.Sodium is 142. Potassium is 3.4, replacement was given. Chloride is 96. CO2 43. Blood sugar 130. BUN was21. Creatinine was 1.2. BNP is down to 5,359. Magnesium is 1.9. INR is 1.94. O2 saturation at 2 liters showspH is 7.47, pCO2 is 51.4, pO2 is 98. O2 saturation is 98.2. Her weight is down 4 pounds.OBJECTIVE: Blood pressure is 135/56. Pulse 60. Respirations 18. Temperature 98.2. O2 saturation is 98%on 2 liters. Patient is alert and oriented x3. Pupils equal and reactive to light. EOMs are intact. Corneas andsclerae are clear. Conjunctivae are normal. No facial asymmetry. Pharynx, tongue, and gums pink and moist.Tongue is midline. Neck is supple without lymphadenopathy. No thyromegaly or goiter. Chest has decreasedbreath sounds. No wheeze or retraction. Heart is regular. Abdomen is benign. Bowel sounds positive./rectal: Not done. Extremities: +1 bilateral lower extremity edema. Peripheral pulses equal and palpablebilaterally.ASSESSMENT/PLAN:1. CHF. Net negative approximately 3 liters. Weight down 4 pounds. Will continue IV Lasix.2. Hypokalemia. Replaced potassium.3. Hypertension, stable.4. Continue IV Lasix.DD: MARTHA Tobar 05/08/20 23:12DT: JAMEE 05/08/20 23:49DS: MARTHA Tobar 05/13/20 19:07 1 Name Value Range Interpretation Code Description Data Vivian rce(s) Supporting Document(s) ID Date Data Source [id number] 05/06/2020 12:07:00 [place] [address] HISTORY AND PHYSICALNAME: ANNA Medina ROOM#: [id number] OF : 1940 MR#: [id number] PHYS: Bolivar Sotomayor MD, PC DATE: 05/06/20CHIEF COMPLAINT: Lightheadedness and shortness of breath.HISTORY OF PRESENT ILLNESS:This is an 80-year-old female who was at home. She normally wears O2 at 2 liters chronically. She states shehad got out of the shower and that she felt lightheaded and short of breath. EMS was called. Upon arrival, shewas not on her oxygen and O2 saturation was 88% on room air. She had diminished lung sounds. She wasbrought to the emergency room today. Upon arrival, blood pressure was 144/92. Heart rate was 60.Respirations 20. O2 saturation was 99%. Temperature was 97.6. EKG was done which showed paced rhythm.LABORATORY STUDIES:White count was 7.6, hemoglobin 13.2, hematocrit 40.5, platelets 135. Sodium was 134, potassium 4.6,chloride 91, CO2 36, nonfasting glucose 304, BUN 23, creatinine 1.3. Total bilirubin was 1.5. BNP was 8942.Lipase 28. Magnesium 1.9. INR was 2.06. VBG showed a pH of 7.39.RADIOLOGY STUDIES:Chest x-ray showed CHF. Troponin was less than 0.01. Per ER physician, she gave Lasix 40 mg IV push.Assessment was done and patient will be admitted observation status to the service of Dr. Sotomayor for CHF. Shewill be placed on telemetry, IV Lasix drip, continued monitoring and 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ALLERGIES:PENICILLIN and ALOE VERA.SOCIAL HISTORY:She is . She lives with her . She does not drink alcohol. She does not smoke cigarettes. She hashad no recent travel. She is on home oxygen. She uses a walker.PAST MEDICAL HISTORY: 1. Cardiovascular disease. She had 4 stents on 03/07/18. She has had a recent Lexiscan nuclear at the office of Dr. Sotomayor. She was advised just before that she needed a cardiac catheterization. She stated she would wait until after the holidays and then go. The risks and benefits to include cardiac arrest were explained, but she continued to defer to go until after the holidays. 2. History of hypertension. 3. History of COPD, on O2. 4. History of insulin dependent diabetes. 5. History of renal failure. 6. History of hypertension. 7. History of hypothyroidism. 8. History of gout. 1 [place] [address] HISTORY AND PHYSICALNAME: ANNA Medina ROOM#: [id number] OF : 1940 MR#: [id number] PHYS: Bolivar Sotomayor MD, PC [facility] [id number] DATE: 05/06/20PAST SURGICAL HISTORY: 1. She has had cardiac stents, mitral valve replacement. She is on Coumadin. 2. History of atrial fibrillation. 3. History of hysterectomy. 4. She has a cardiac pacemaker.HOME MEDICATIONS: 1. Albuterol sulfate 0.083 inhalation solution 1 vial q 6 hours p.r.n. for shortness of breath or wheeze. 2. Allopurinol 100 mg p.o. twice a day 3. Ascorbic acid 1 p.o. daily 4. Aspirin 81 mg p.o. daily 5. Atorvastatin 80 mg p.o. daily at bedtime 6. Bumetanide 1 mg p.o. twice a day 7. Ferrous gluconate 325 mg p.o. daily 8. Lyrica 75 mg p.o. b.i.d. 9. Buspirone 7.5 mg p.o. twice a day 10. Calcitriol 0.25 mcg p.o. daily 11. Clopidogrel 75 mg p.o. daily 12. Coreg 6.25 mg p.o. b.i.d. 13. Tylenol 650 mg p.o. q 4 hours p.r.n. pain, headache or temperature greater than 100.5. 14. Omeprazole 20 mg p.o. daily 15. Toujeo 40 units subcutaneous q h.s. 16. Valsartan 40 mg p.o. q h.s. 17. Vitamin D 1000 units p.o. daily 18. Warfarin 3 mg p.o. daily in the eveningREVIEW OF SYSTEMS:Ten systems review was done and other than the shortness of breath and the slight lightheadedness and shealso complained of lower extremity edema.PHYSICAL EXAMINATION:GENERAL: 80-year-old obese female in no acute distress. Weight is 207 pounds. Height is 61 inches. BMI is39.24.VITAL SIGNS: Patient is alert and oriented x3.HEENT: Pupils equal and reactive to l ight. EOMs are intact. Corneas and sclerae are clear. Conjunctivae arenormal. No facial asymmetry. Pharynx, tongue, and gums pink and moist. Tongue is midline.NECK: Supple without lymphadenopathy. No thyromegaly or goiter. Carotids 2+ without bruit. [address] [place] [address] HISTORY AND PHYSICALNAME: ANNA Medina ROOM#: [id number] OF : 1940 MR#: [id number] PHYS: Bolivar Sotomayor MD, PC DATE: 05/06/20venous pressure is at 2-4 at 45 degrees.CHEST: Decreased breath sounds, bibasilar rales. No wheeze. No retraction.HEART: Regular.ABDOMEN: Benign. Bowel sounds positive./RECTAL: Not done.EXTREMITIES: 1-2+ bilateral lower extremity pedal, ankle and tibial edema.IMPRESSION/PLAN: 1. Patient will be admitted to the service of Dr. Sotomayor observation status for CHF. She will be placed on a Lasix drip, daily weights, case monitor, 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 Patient had a recent cardiac nuclear scan. Will stabilize her and transfer for cardiac catheterization. 2. History of insulin dependent diabetes. Monitor blood sugars. Continue Toujeo. Coverage as needed. 3. History of hypertension. 4. History of valve replacement and atrial fibrillation. Continue Coumadin. Monitor PT/INR. 5. History of hypercholesteremia. Continue statin. 6. Coronary artery disease. Continue aspirin and Plavix. 7. History of COPD. Continue O2 and p.r.n. Albuterol for shortness of breath. 8. History of Vitamin D deficiency. Will continue supplement.Patient will be admitted to the service of Dr. Sotomayor observation status.DD: MARTHA Tobar [birth year] 21:19DT: JAMEE 05/06/20 23:47DS: MARTHA Tobar 05/13/20 19:07 3 Name Value Range Interpretation Code Description Data [facility](s) Supporting Document(s) ID Date Data Source [id number] 05/12/2020 06:28:00 PM EST [facility] (Bolivar Sotomayor MD) Name Value Range Interpretation Code Description Data [facility](s) Supporting Document(s) C reactive protein [Mass/volume] in Serum or Plasma by High sensitivity method 7.31 mg/L 1.00-3.00 Above high normal [facility] (Bolivar Sotomayor MD) <content>CDC/S HS-CRP CUT-OFF: RELATIVE RISK:</content>
<content><1.0 mg/L Low</content>
<content>1.0 - 3.0 mg/L Average</keira nt>
<content>>3.0 mg/L High</content>
<content>Optimally, the average of HS-CRP results repeated</content>
<content>two weeks apart should be used for risk assessment.</content>
<content></content> Thyroxine (T4) free [Mass/volume] in Serum or Plasma 1.28 ng/dL 0.93- 1.70 [facility] (Bolivar Sotomayor MD) Thyrotropin [Units/volume] in Serum or Plasma by Detec tion limit <= 0.005 mIU/L 4.47 uIU/mL 0.47-5.01 [facility] (Bolivar Sotomayor MD) Creatine kinase [Enzymatic activity/volume] in Serum or Plasma 2 16 U/L 30-170 Above high normal [facility] (Bolivar Sotomayor MD) Natriuretic peptide.B prohormone N-Terminal [Mass/volu me] in Serum or Plasma 6888 pg/mL 0-450 Above high normal [facility] (Bolivar Sotomayor MD) ID Date Data Source [id number] 05/12/2020 06:28:00 PM EST [facility] (Bolivar Sotomayor MD) Name Value Range Interpretation Code Description Data [facility](s) Supporting Document(s) Laboratory test finding (navigational concept) Laboratory test result [facility] (Bolivar Sotomayor MD) COMPREHENSIVE METABOLIC PANEL Laboratory test finding (navigational concept) 137 meq/L 134-153 [facility] (Bolivar Sotomayor MD) Laboratory test finding (navigational concept) 3.8 meq/L 3.6-5.0 [facility] (Bolivar Sotomayor MD) Laboratory test finding (navigational concept) 29 meq/L 22-30 [facility] (Bolivar Sotomayor MD) Laboratory test finding (navigational concept) 92 meq/L 98-107 Below low normal [facility] (Bolivar Sotomayor MD) Laboratory test finding (navigational concept) 274 mg/dL 6 5-110 Above high normal [facility] (Bolivar Sotomayor MD) Laboratory test finding (navigational concept) 45 mg/dL 7-21 Above high normal [facility] (Bolivar Sotomayor MD) Laboratory test finding (navigational concept) 5.9 g/dL 6 .3-8.2 Below low normal [facility] (Bolivar Sotomayor MD) Laboratory test finding (navigational concept) 1.2 mg/dL 0.7-1.5 [facility] (Bolivar Sotomayor MD) Laboratory test finding (navigational concept) 38 8-27 Above high normal [facility] (Bolivar Sotomayor MD) Laboratory test finding (navigational concept) 3.9 g/dL 3.9-5.0 [facility] (Bolivar Sotomayor MD) Laboratory test finding (navigational concept) 2.0 GM/DL 2 .4-3.2 Below low normal [facility] (Bolivar Sotomayor MD) Laboratory test finding (navigational concept) 9.0 mg/dL 8.4-10.2 [facility] (Bolivar Sotomayor MD) Laboratory test finding (navigational concept) 2.0 0.8-2.0 [facility] (Bolivar Sotomayor MD) Laboratory test finding (navigational concept) 2.5 mg/dL 0 .2-1.3 Above high normal [facility] (Bolivar Sotomayor MD) Laboratory test finding (navigational concept) 30 U/L 5-40 [facility] (Bolivar Sotomayor MD) Laboratory test finding (navigational concept) 214 U/L 38-126 Above high normal [facility] (Bolivar Sotomayor MD) Laboratory test finding (navigational concept) 14 U/L 7-56 [facility] (Bolivar Sotomayor MD) Laboratory test finding (navigational concept) 16.0 mmol/L 8.0-16.0 [facility] (Bolivar Sotomayor MD) Laboratory test finding (navigational concept) 80 yrs [facility] (Bolivar Sotomayor MD) Laboratory test finding (navigational concept) Laboratory test result [facility] (Bolivar Sotomayor MD) Male GFR Interprentation 20-49 yrs >60 mL/min Normal 50-59 yrs >56 mL/min Normal 60-69 yrs >49 mL/min Normal 70-79yrs >42 mL/min Normal 80 and above >35 mL/min Normal Female GFR Interpretation 20-39 yrs >60 mL/min Normal 40-49 yrs >58 mL/min Normal 50-59 yrs >51 mL/min Normal 60-69 yrs >45 mL/min Normal 70-79 yrs >39 mL/min Normal 80 and above >32 mL/min Normal Laboratory test finding (navigational concept) 46 mL/min [facility] (Bolivar Sotomayor MD) ID Date Data Source [id number] 05/12/2020 06:28:00 PM EST [facility] (Bolivar Sotomayor MD) Name Value Range Interpretation Code Description Data Vivian r[facility](s) Supporting Document(s) Magnesium [Mass/volume] in Serum or Plasma 2.1 mg/dL 1.7-2.2 [facility] (Bolivar Sotomayor MD) Troponin T.cardiac [Mass/volume] in Serum or Plasma Laborato ry test result 0.00-0.10 [facility] (Bolivar Sotomayor MD) TROPONIN T 0.1 ng/ml Recommended as the clinical th reshold value for Troponin T. ID Date Data Source [id number] 05/12/2020 06:28:00 PM EST [facility] (Bolivar Sotomayor MD) Name Value Range Interpretation Code Description Data [facility](s) Supporting Document(s) Laboratory test finding (navigational concept) 4.93 10^6/uL 4.20-5.40 [facility] (Bolivar Sotomayor MD) Laboratory test finding (navigational concept) Laboratory test result [facility] (Bolivar Sotomayor MD) COMPLETE BLOOD COUNT Laboratory test finding (navigational concept) 9.4 10^3/uL 4.2-11.0 [facility] (Bolivar Sotomayor MD) Laboratory test finding (navigational concept) 92.3 fL 81.0-101 [facility] (Bolivar Sotomayor MD) Laboratory test finding (navigational concept) 15.3 g/dL 12.0-16.0 [facility] (Bolivar Sotomayor MD) Laboratory test finding (navigational concept) 45.5 % 37.0-47.0 [facility] (Bolivar Sotomayor MD) Laboratory test finding (navigational concept) 31.0 pg 27.0-34.0 [facility] (Bolivar Sotomayor MD) Laboratory test finding (navigational concept) 33.6 g/dL 31.0-36.0 [facility] (Bolivar Sotomayor MD) Laboratory test finding (navigational concept) 12.0 fL 7 .4-10.4 Above high normal [facility] (Bolivar Sotomayor MD) Laboratory test finding (navigational concept) 16.5 % 1 1.5-14.5 Above high normal [facility] (Bolivar Sotomayor MD) Laboratory test finding (navigational concept) 205 10^3/uL 150-450 [facility] (Bolivar Sotomayor MD) Laboratory test finding (navigational concept) 15.7 % 2 5.0-40.0 Below low normal [facility] (Bolivar Sotomayor MD) Laboratory test finding (navigational concept) 9.9 % 3.0-8.0 Above high normal [facility] (Bolivar Sotomayor MD) Laboratory test finding (navigational concept) 73.4 % 37.0-80.0 [facility] (Bolivar Sotomayor MD) Laboratory test finding (navigational concept) 0.3 % 0.0-2.5 [facility] (Bolivar Sotomayor MD) Laboratory test finding (navigational concept) 0.5 % 0.0-0.0 Above high normal [facility] (Bolivar Sotomayor MD) Laboratory test finding (navigational concept) 0.2 % 0.0-7.0 [facility] (Bolivar Sotomayor MD) Laboratory test finding (navigational concept) 6.85 10^3/uL 2.00-6.90 [facility] (Bolivar Sotomayor MD) Laboratory test finding (navigational concept) 0.0 % 0.0-0.0 [facility] (Bolivar Sotomayor MD) Laboratory test finding (navigational concept) 0.93 10^3/uL 0 .00-0.90 Above high normal [facility] (Bolivar Sotomayor MD) Laboratory test finding (navigational concept) 1.47 10^3/uL 0.60-3.40 [facility] (Bolivar Sotomayor MD) Laboratory test finding (navigational concept) 0.02 10^3/uL 0.00-0.70 [facility] (Bolivar Sotomayor MD) Laboratory test finding (navigational concept) 0.00 10^3/uL 0.00-0.00 [facility] (Bolivar Sotomayor MD) Laboratory test finding (navigational concept) 0.03 10^3/uL 0.00-0.20 [facility] (Bolivar Sotomayor MD) Laboratory test finding (navigational concept) 0.05 10^3/uL 0.00-0.10 [facility] (Bolivar Sotomayor MD) Laboratory test finding (navigational concept) Laboratory test result [facility] (Bolivar Sotomayor MD) Laboratory test finding (navigational concept) Laboratory test result [facility] (Bolivar Sotomayor MD) ID Date Data Source [id number] 05/12/2020 06:28:00 PM EST [facility] (Bolivar Sotomayor MD) Name Value Range Interpretation Code Description Data [facility](s) Supporting Document(s) Ammonia [Moles/volume] in Serum 74.0 ug/dL 18.7-86.9 [facility] (Bolivar Sotomayor MD) ID Date Data Source [id number] 05/12/2020 06:28:00 PM EST [facility] (Bolivar Sotomayor MD) Name Value Range Interpretation Code Description Data [facility](s) Supporting Document(s) Laboratory test finding (navigational concept) 21.5 s 1 1.0-15.5 Above high normal [facility] (Bolivar Sotomayor MD) Laboratory test finding (navigational concept) 1.77 0 .93-1.23 Above high normal [facility] (Bolivar Sotomayor MD) \\BLDo\\INR INTERPRETATION\\BLDx\\ Therapeutic range for Coumadin and related oral anticoagulants. -International Normalized Ratio (INR): 2 .0 - 3.0 for Venous Thrombosis, Pulmonary Embolus, Tissue heart valves, Acute ME, Atrial Fibrillation, Valvular heart disease and recurrent Systemic Embolism. -International Normalized Ratio (INR): 2 .5 - 3.5 for Mechanical Prosthetic valve. ID Date Data Source [id number] 05/12/2020 07:37:00 PM [facility] Name Value Range Interpretation Code Description Data Vivian rce(s) Supporting Document(s) BNP 6888 PG/ML 0 - 450 H [facility] ID Date Data Source [id number] 05/12/2020 07:32:00 PM [facility] Name Value Range Interpretation Code Description Data [facility](s) Supporting Document(s) Thyroxine (T4) free index in Serum or Plasma by calculation 1.28 NG/DL 0.93 - 1.70 [facility] ID Date Data Source [id number] 05/12/2020 07:32:00 PM [facility] Name Value Range Interpretation Code Description Data Vivian rce(s) Supporting Document(s) Thyrotropin [Units/volume] in Serum or Plasma by Detec tion limit <= 0.05 mIU/L 4.47 uIU/mL 0.47 - 5.01 [facility] ID Date Data Source [id number] 05/12/2020 07:23:00 PM [facility] Name Value Range Interpretation Code Description Data [facility](s) Supporting Document(s) Creatine kinase [Enzymatic activity/volume] in Serum or Plasma 2 16 U/L 30 - 170 H [facility] ID Date Data Source [id number] 05/12/2020 07:23:00 PM [facility] Value Range Interpretation Code Description Data Vivian rce(s) Supporting Document(s) C reactive protein [Mass/volume] in Serum or Plasma by High sensitivity method 7.31 MG/L 1.00 - 3.[address] [facility]/S HS-CRP CUT-OFF: RELATIVE RISK: <1.0 mg/L Low 1.0 - 3.0 mg/L Average >3.0 mg/L High Optimally, the average of HS-CRP results repeated two weeks apart should be used for risk assessment. ID Date Data Source [id number] 05/12/2020 07:23:00 PM [facility] Name Value Range Interpretation Code Description Data Vivian rce(s) Supporting Document(s) COMPREHENSIVE METABOLIC PANEL [facility] COMPREHENSIVE METABOLIC PANEL Sodium [Moles/volume] in Serum or Plasma 137 mEq/L 134 - 153 [facility] Potassium [Moles/volume] in Serum or Plasma 3.8 mEq/L 3.6 - 5.0 [facility] Chloride [Moles/volume] in Serum or Plasma 92 mEq/L 98 - 107 L [facility] Carbon dioxide, total [Moles/volume] in Serum or Plasma 29 MEQ/L 22 - 30 [facility] Glucose [Mass/volume] in Serum or Plasma 274 MG/DL 65 - 110 H [facility] BUN 45 MG/DL 7 - 21 H [facility] al Creatinine [Mass/volume] in Serum or Plasma 1.2 MG/DL 0.7 - 1.5 [facility] BUN/CREAT 38 8 - 27 H [facility] al Protein [Mass/volume] in Serum or Plasma 5.9 G/DL 6.3 - 8.2 L [facility] Albumin [Mass/volume] in Serum or Plasma 3.9 G/DL 3.9 - 5.0 [facility] Globulin [Mass/volume] in Serum by calculation 2.0 GM/DL 2.4 - 3.2 L [facility] A/G RATIO 2.0 0.8 - 2.0 [facility] Calcium [Mass/volume] in Serum or Plasma 9.0 MG/DL 8.4 - 10.2 [facility] Bilirubin.total [Mass/volume] in Serum or Plasma 2.5 MG/DL 0.2 - 1.3 H [facility] Alkaline phosphatase [Enzymatic activity/volume] in Serum or Plasma 214 U/L 38 - 126 H [facility] Aspartate aminotransferase [Enzymatic activity/volume] in Serum or Plasma 30 U/L 5 - 40 [facility] Alanine aminotransferase [Enzymatic activity/volume] in Seru m or Plasma 14 U/L 7 - 56 [facility] Anion gap 3 in Serum or Plasma 16.0 mmol/L 8.0 - 16.0 [facility] AGE 80 yrs [facility] NON-AA GFR 46 mL/min [facility] AFR AMER GFR >60 [facility] Male GFR In terprentation 20-49 yrs >60 mL/min Normal 50-59 yrs >56 mL/min Normal 60-69 yrs >49 mL/min Normal 70-79yrs >42 mL/min Normal 80 and above >35 mL/min Normal Female GFR Interpretation 20-39 yrs >60 mL/min Normal 40-49 yrs >58 mL/min Normal 50-59 yrs >51 mL/min Normal 60-69 yrs >45 mL/min Normal 70-79 yrs >39 mL/min Normal 80 and above >32 mL/min Normal ID Date Data Source [id number] 05/12/2020 07:21:00 PM [facility] Name Value Range Interpretation Code Description Data Viv[facility](s) Supporting Document(s) Magnesium [Mass/volume] in Serum or Plasma 2.1 MG/DL 1.7 - 2.2 [facility] ID Date Data Source [id number] 05/12/2020 07:20:00 PM [facility] Name Value Range Interpretation Code Description Data Vivian rce(s) Supporting Document(s) TROPONIN T <0.01 NG/ML 0.00 - 0.10 [facility]ital TROPONIN T0.1 ng/ml Recommended as the c linical threshold value forTroponin T. ID Date Data Source [id number] 05/12/2020 07:09:00 PM [facility] Name Value Range Interpretation Code Description Data Vivian rce(s) Supporting Document(s) CBC W/AUTOMATED DIFF [facility] COMPLETE BLOOD COUNT Leukocytes [#/volume] in Blood by Automated count 9.4 10^3/uL 4.2 - 1 1.0 [facility] Erythrocytes [#/volume] in Blood by Automated count 4.93 10^6/uL 4. 20 - 5.40 [facility] Hemoglobin [Mass/volume] in Blood 15.3 g/dL 12.0 - 16.0 [facility] Hematocrit [Volume Fraction] of Blood by Automated count 45.5 % 3 7.0 - 47.0 [facility] Erythrocyte mean corpuscular volume [Entitic volume] by Auto mated count 92.3 fL 81.0 - 101 [facility] Erythrocyte mean corpuscular hemoglobin [Entitic mass] by Automated count 31.0 pg 27.0 - 34.0 [facility] Erythrocyte mean corpuscular hemoglobin concentration [Mass/volume] by Automated count 33.6 g/dL 31.0 - 36.0 [facility] Erythrocyte distribution width [Ratio] by Automated count 16.5 % 11.5 - 14.5 H [facility] Platelets [#/volume] in Blood by Automated count 205 10^3/uL 150 - 45 0 [facility] Platelet mean volume [Entitic volume] in Blood by Automated count 12.0 fL 7.4 - 10.4 H [facility] Neutrophils/100 leukocytes in Blood by Automated count 73.4 % 37. 0 - 80.0 [facility] Lymphocytes/100 leukocytes in Blood by Manual count 15.7 % 25.0 - 40.0 L [facility] Monocytes/100 leukocytes in Blood by Automated count 9.9 % 3.0 - 8.0 H [facility] Eosinophils/100 leukocytes in Blood by Automated count 0.2 % 0.0 - 7.0 [facility] Basophils/100 leukocytes in Blood by Automated count 0.3 % 0.0 - 2.5 [facility] %IG 0.5 % 0.0 - 0.0 H [facility] al %NRBC 0.0 % 0.0 - 0.0 [facility] al Neutrophils [#/volume] in Blood by Automated count 6.85 10^3/uL 2.00 - 6.90 [facility] Lymphocytes [#/volume] in Blood by Automated count 1.47 10^3/uL 0.60 - 3.40 [facility] Monocytes [#/volume] in Blood by Automated count 0.93 10^3/uL 0.00 - 0.90 H [facility] Eosinophils [#/volume] in Blood by Automated count 0.02 10^3/uL 0.00 - 0.70 [facility] Basophils [#/volume] in Blood by Automated count 0.03 10^3/uL 0.00 - 0.20 [facility] #IG 0.05 10^3/uL 0.00 - 0.10 [facility]ital #NRBC 0.00 10^3/uL 0.00 - 0.00 [facility] MANUAL DIFF NOT INDICATED [facility] RBC MORPH NOT INDICATED [facility] ID Date Data Source [id number] 05/12/2020 07:11:00 PM EST [facility] Name Value Range Interpretation Code Description Data [facility] rce(s) Supporting Document(s) Ammonia [Mass/volume] in Plasma 74.0 UG/DL 18.7 - 86.9 [facility] ID Date Data Source [id number] 05/12/2020 07:09:00 PM [facility] Name Value Range Interpretation Code Description Data [facility] rce(s) Supporting Document(s) Prothrombin time (PT) 21.5 SECONDS 11.0 - 15.5 H [facility] INR in Platelet poor plasma by Coagulation assay 1.77 0.93 - 1. 23 H [facility] \\BLDo\\INR INTERPRETATION\\BLDx\\ Therapeutic range for Coumadin and related oral anticoagulants. - International Normalized Ratio (INR): 2.0 - 3.0 for Venous Thrombosis, Pulmonary Embolus, Tissue heart valves, Acute ME, Atrial Fibrillation, Valvular heart disease and recurrent Systemic Embolism. -International Normalized Ratio (INR): 2.5 - 3.5 for Mechanical Prosthetic valve. ID Date Data Source [id number] 05/11/2020 09:25:00 [place] [address] PHONE: [phone] FAX: [phone] Name .................. : ANNA Medina Acct Number.................. : [id number] ROOM. ................. : 108-1 Number ................... : [id number] Stay type ............. : I/P Discharge Date......... ... : Admit Date ......... : 05/09/20 Admit Phys .................... : MANUEL HERRMANN Date of ....... : 1940 Family Phys ................... : FISH KENNE Phone .................. : [phone] Age ................................ : 80 Film# .................. .:[id number] Sex ................................. : F Unsigned transcriptions are preliminary reports and do not represent a medical or legal document CHEST 2 VIEWS [id number] COMPLETE:05/10/20 88:88 1326 (REASON FOR CHEST: SHORTNESS OF BREATH CHEST X-RAY: 2-VIEWS COMPARISON: 03/30/20 TECHNIQUE: Frontal and lateral views of the chest are performed. Underlying COPD changes are present. Bilateral air space disease suggestive of CHF and/or pneumonic infiltrates are noted. There is unchanged cardiomegaly with pacemaker leads in the right atrium and right ventricle. There is no pneumothorax or pleural effusion. IMPRESSION: CHF and/or pneumonic infiltrates. Cardiomegaly. Underlying COPD. Electronically Reviewed and Signed By Danish Ordonez MD , 05/11/20 09:25, KG Transcribe Initials: DZ , Transcribe Date: 05/10/20 08:36, Dictation Date: Copy for: 002 [facility] Copy for: [address] [place] [address] REC Page 1 of 1 Name Value Range Interpretation Code Description Data Vivian rce(s) Supporting Document(s) ID Date Data Source [id number] 05/11/2020 08:55:00 AM EST [facility] [address] [place] [address] PHONE: [phone] FAX: [phone] Name .................. : ANNA Medina Acct Number.................. : [id number] ROOM. ................. : 108-1 MR Number ................... : [id number] Stay type ............. : O/P Discharge Date......... ... : Admit Date ......... : 05/06/20 Admit Phys .................... : MANUEL ALIZE Date of ....... : 1940 Family Phys ................... : NAUN Etonkids Phone .................. : [phone] Age ................................ : 80 Film# .................. .:[id number] Sex ................................. : F Unsigned transcriptions are preliminary reports and do not represent a medical or legal document CT THORAX W/O CONTRAST [id number] COMPLETE:05/07/20 11:20 JEFFREY 1201 (REASON FOR CHEST: CHF CT THORAX WITHOUT CONTRAST, 05/07/20: INDICATION: CHF. Comparison previous 03/25/20. FINDINGS: The heart is enlarged. There is a mild right pleural effusion. There is ground-glass attenuation in the right upper lobe. There are increased markings throughout the lungs. Diagnostic considerations include acute inflammatory disease versus congestive heart failure. The soft tissues are intact. IMPRESSION: Cardiomegaly with mild right pleural effusion. There is ground-glass attenuation in the right upper lobe with increased markings throughout the lungs. Diagnostic considerations include acute inflammatory disease and/or congestive heart failure. While performing the above CT examination, radiation dose reduction was accomplished utilizing automated exposure control, adjusting of the mA and kV based on the patient's body size and/or the use of imperative reconstructive techniques. CT dose 629.4 mGycm. Page 1 of 2 [facility] [address] [place] [address] PHONE: [phone] FAX: [phone] Name .................. : ANNA Medina Acct Number.................. : [id number] ROOM. ................. : 108-1 MR Number ................... : [id number] Stay type ............. : O/P Discharge Date......... ... : Admit Date ......... : 05/06/20 Admit Phys .................... : MANUEL ALIZE Date of ....... : 1940 Family Phys ................... : NAUN MTZ Phone .................. : [phone] Age ................................ : 80 Film# .................. .:[id number] Sex ................................. : F Unsigned transcriptions are preliminary reports and do not represent a medical or legal document CT THORAX W/O CONTRAST [id number] COMPLETE:05/07/20 11:20 JEFFREY 1201 (REASON FOR CHEST: CHF Electronically Reviewed and Signed By Philipp Davis MD , 05/11/20 08:55, MRA Transcribe Initials: SSR, Transcribe Date: 05/07/20 13:09, Dictation Date: Copy for: 002 [facility] Copy for: 710 [facility] REC Page 2 of 2 Name Value Range Interpretation Code Description Data Vivian rce(s) Supporting Document(s) ID Date Data Source [id number] 05/10/2020 01:30:00 PM EST [facility] (Bolivar Sotomayor MD) Name Value Range Interpretation Code Description Data Vivian rce(s) Supporting Document(s) Laboratory test finding (navigational concept) Laboratory test result [facility] (Bolivar Sotomayor MD) {SOURCE: Random Void~NURSE COLLECTED? N Laboratory test finding (navigational concept) Laboratory test result [facility] (Bolivar Sotomayor MD) {SOURCE: Random Void~NURSE COLLECTED? N Laboratory test finding (navigational concept) Laboratory test result [facility] (Bolivar Sotomayor MD) {SOURCE: Random Void~NURSE COLLECTED? N Laboratory test finding (navigational concept) 1.010 1.001-1.030 [facility] (Bolivar Sotomayor MD) {SOURCE: Random Void~NURSE COLLECTED? N Laboratory test finding (navigational concept) 8 5-9 [facility] (Bolivar Sotomaoyr MD) {SOURCE: Random Void~NURSE COLLECTED? N Laboratory test finding (navigational concept) Laboratory test result [facility] (Bolivar Sotomayor MD) {SOURCE: Random Void~NURSE COLLECTED? N Laboratory test finding (navigational concept) Laboratory test result [facility] (Bolivar Sotomayor MD) {SOURCE: Random Void~NURSE COLLECTED? N Laboratory test finding (navigational concept) Laboratory test result [facility] (Bolivar Sotomayor MD) {SOURCE: Random Void~NURSE COLLECTED? N Laboratory test finding (navigational concept) Laboratory test result [facility] (Bolivar Sotoamyor MD) {SOURCE: Random Void~NURSE COLLECTED? N Laboratory test finding (navigational concept) Laboratory test result [facility] (Bolivar Sotomayor MD) {SOURCE: Random Void~NURSE COLLECTED? N Laboratory test finding (navigational concept) Laboratory test result [facility] (Bolivar Sotomayor MD) {SOURCE: Random Void~NURSE COLLECTED? N Laboratory test finding (navigational concept) Laboratory test result [facility] (Bolivar Sotomayor MD) {SOURCE: Random Void~NURSE COLLECTED? N Laboratory test finding (navigational concept) Laboratory test result [facility] (Bolivar Sotomayor MD) {SOURCE: Random Void~NURSE COLLECTED? N Laboratory test finding (navigational concept) Laboratory test result [facility] (Bolivar Sotomayor MD) {SOURCE: Random Void~NURSE COLLECTED? N Laboratory test finding (navigational concept) Laboratory test result [facility] (Bolivar Sotomayor MD) {SOURCE: Random Void~NURSE COLLECTED? N ID Date Data Source [id number] 05/10/2020 02:12:00 PM EST [facility] Name Value Range Interpretation Code Description Data Vivian rce(s) Supporting Document(s) URINALYSIS [facility] URINALYSIS SOURCE Clean Catch [facility] COLOR yellow NORMAL: Yellow [facility] CLARITY clear NORMAL: Clear [facility] Specific gravity of Urine by Test strip 1.010 1.001 - 1.030 [facility] pH 8 5 - 9 [facility] Glucose [Mass/volume] in Urine by Test strip NORM NORMAL: Negat [facility] Bilirubin.total [Presence] in Urine by Test strip NEG NORMAL: Negative [facility] Ketones [Presence] in Urine by Test strip NEG NORMAL: Negative [facility] Protein [Mass/volume] in Urine by Test strip NEG NORMAL: Negat [facility] Nitrite [Presence] in Urine by Test strip NEG NORMAL: Negative [facility] BLOOD NEG NORMAL: Negative [facility] Leukocyte esterase [Presence] in Urine by Test strip NEG MARITA L: Negative [facility] Urobilinogen [Mass/volume] in Urine by Test strip NOR less silvino n 1.0 mg/dL [facility] MICROSCOPIC Not Indicate [facility] ID Date Data Source [id number] 05/10/2020 01:20:00 PM EST [facility] (Bolivar Sotomayor MD) Name Value Range Interpretation Code Description Data Vivian rce(s) Supporting Document(s) Bacteria identified in Urine by Culture Laboratory test result [facility] (Bolivar Sotomayor MD) {SPECIMEN TYPE: CATH URINE ID Date Data Source [id number] 05/14/2020 04:11:00 PM EST [facility] Name Value Range Interpretation Code Description Data Vivian rce(s) Supporting Document(s) CULTURE URINE [facility] _CULTURE URINE_$$[id number]$$[id number]$$[id number]$$377698$$449770$$327587$$519877$$770993$$692407$$ 310249$$882251$$736284$$572098$$723591$$722917$$530686$$788428$$942520$$159189$$ 520156$$625205$$076425$$880105$$243325$$908418$$540668$$449980 -- Continued on next page --Patient: ANNA Medina Order: Page 2Culture: CULTURE URINE Status: Final ==== -- Continued on next page --Patient: ANNA Medina Order: Page 2Culture: CULTURE URINE Status: Prelim =====$$[id number] DATE/TIME: 05/14/2020 14:06Culture: CULTURE URINE Status: FinalIsolate 1 Escherichia coli Flag: A . . . . . . .150,000-100,000 colony forming units per mLCefazolin <=4 ug/mLCefazolin with an KACI <=16 predicts susceptibility to the oral agentscefaclor, cefdinir, cefpodoxime, cefprozil, cefuroxime, cephalexin,and loracarbef when used for therapy of uncomplicated urinary tractinfections due to E. coli, Klebsiella pneumoniae, and Proteusmirabilis. Previous result entered on 05/12/2020 23:36 ET Escherichia coliUrine Culture,Comprehensive: [id number] coli Flag: APatient: ANNA Medina Order: [id number] Page 3Culture: CULTURE URINE Status: Final ISOLATE 1 Escherichia coli Isolate 1Antibiotic KACI IntUnits ug/mL ----Amoxicillin/Clavulanic Acid S S . . . . . .20-8Ampicillin S S . . . . . .28-1Cefepime S S . . . . . .6644-9Ceftriaxone S S . . . . . .141-2Cefuroxime S S . . . . . .145- 3Ciprofloxacin S S . . . . . .185-9Ertapenem S S . . . . . .32950-1Rdhzqyzxjr S S . . . . . .267-5Imipenem S S . . . . . .279-0Levofloxacin S S . . . . . .92244-6Pcmpntcdw S S . . . . . .6652-2Nitrofurantoin S S . . . . . .363-2Piperacillin/Tazobactam S S . . . . . .412-7Tetracycline S S . . . . . .496-0Tobramycin S S . . . . . .508-2Trimethoprim/Sulfa S S . . . . . .516-5P1 Test performed by: Kami SANDERS #: [id number] [address] [place] [address] [id number] [facility] [id number] Director : Sae Pena MD NPI #:[employer] : 05/13/20.0713.XMT.SENT REF 05/14/20.1611.RASHIT.SENT REF 05/14/20.1611. .to [facility] modem ID Date Data Source [id number] 05/10/2020 06:19:00 AM EST [facility] (Bolivar Sotomayor MD) Name Value Range Interpretation Code Description Data Vivian rce(s) Supporting Document(s) Laboratory test finding (navigational concept) Laboratory test result [facility] (Bolivar Sotomayor MD) COMPREHENSIVE METABOLIC PANEL Laboratory test finding (navigational concept) 138 meq/L 134-153 [facility] (Bolivar Sotomayor MD) Laboratory test finding (navigational concept) 93 meq/L 98-107 Below low normal [facility] (Bolivar Sotomayor MD) Laboratory test finding (navigational concept) 3.8 meq/L 3.6-5.0 [facility] (Bolivar Sotomayor MD) Laboratory test finding (navigational concept) 34 mg/dL 7-21 Above high normal [facility] (Bolivar Sotomayor MD) Laboratory test finding (navigational concept) 168 mg/dL 6 5-110 Above high normal [facility] (Bolivar Sotomayor MD) Laboratory test finding (navigational concept) 38 meq/L 22-30 Above high normal [facility] (Bolivar Sotomayor MD) Laboratory test finding (navigational concept) 31 8-27 Above high normal [facility] (Bolivar Sotomayor MD) Laboratory test finding (navigational concept) 1.1 mg/dL 0.7-1.5 [facility] (Bolivar Sotomayor MD) Laboratory test finding (navigational concept) 5.8 g/dL 6 .3-8.2 Below low normal [facility] (Bolivar Sotomayor MD) Laboratory test finding (navigational concept) 3.8 g/dL 3 .9-5.0 Below low normal [facility] (Bolivar Sotomayor MD) Laboratory test finding (navigational concept) 2.0 GM/DL 2 .4-3.2 Below low normal [facility] (Bolivar Sotomayor MD) Laboratory test finding (navigational concept) 9.2 mg/dL 8.4-10.2 [facility] (Bolivar Sotomayor MD) Laboratory test finding (navigational concept) 1.9 0.8-2.0 [facility] (Bolivar Sotomayor MD) Laboratory test finding (navigational concept) 1.2 mg/dL 0.2-1.3 [facility] (Bolivar Sotomayor MD) Laboratory test finding (navigational concept) 10 U/L 7-56 [facility] (Bolivar Sotomayor MD) Laboratory test finding (navigational concept) 16 U/L 5-40 [facility] (Bolivar Sotomayor MD) Laboratory test finding (navigational concept) 224 U/L 38-126 Above high normal [facility] (Bolivar Sotomayor MD) Laboratory test finding (navigational concept) 7.0 mmol/L 8 .0-16.0 Below low normal [facility] (Bolivar Sotomayor MD) Laboratory test finding (navigational concept) 80 yrs [facility] (Bolivar Sotomayor MD) Laboratory test finding (navigational concept) 51 mL/min [facility] (Bolivar Sotomayor MD) Laboratory test finding (navigational concept) Laboratory test result [facility] (Bolivar Sotomayor MD) Male GFR Interprentation 20-49 yrs >60 mL/min Normal 50-59 yrs >56 mL/min Normal 60-69 yrs >49 mL/min Normal 70-79yrs >42 mL/min Normal 80 and above >35 mL/min Normal Female GFR Interpretation 20-39 yrs >60 mL/min Normal 40-49 yrs >58 mL/min Normal 50-59 yrs >51 mL/min Normal 60-69 yrs >45 mL/min Normal 70-79 yrs >39 mL/min Normal 80 and above >32 mL/min Normal ID Date Data Source [id number] 05/10/2020 06:19:00 AM EST [facility] (Bolivar Sotomayor MD) Name Value Range Interpretation Code Description Data Vivian rce(s) Supporting Document(s) Laboratory test finding (navigational concept) Laboratory test result [facility] (Bolivar Sotomayor MD) COMPLETE BLOOD COUNT Laboratory test finding (navigational concept) 4.51 10^6/uL 4.20-5.40 [facility] (Bolivar Sotomayor MD) Laboratory test finding (navigational concept) 13.1 10^3/uL 4 .2-11.0 Above high normal [facility] (Bolivar Sotomayor MD) Laboratory test finding (navigational concept) 13.8 g/dL 12.0-16.0 [facility] (Bolivar Sotomayor MD) Laboratory test finding (navigational concept) 90.9 fL 81.0-101 [facility] (Bolivar Sotomayor MD) Laboratory test finding (navigational concept) 41.0 % 37.0-47.0 [facility] (Bolivar Sotomayor MD) Laboratory test finding (navigational concept) 30.6 pg 27.0-34.0 [facility] (Bolivar Sotomayor MD) Laboratory test finding (navigational concept) 16.0 % 1 1.5-14.5 Above high normal [facility] (Bolivar Sotomayor MD) Laboratory test finding (navigational concept) 33.7 g/dL 31.0-36.0 [facility] (Bolivar Sotomayor MD) Laboratory test finding (navigational concept) 11.9 fL 7 .4-10.4 Above high normal [facility] (Bolivar Sotomayor MD) Laboratory test finding (navigational concept) 183 10^3/uL 150-450 [facility] (Bolivar Sotomayor MD) Laboratory test finding (navigational concept) 84.9 % 3 7.0-80.0 Above high normal [facility] (Bolivar Sotomayor MD) Laboratory test finding (navigational concept) 0.1 % 0.0-7.0 [facility] (Bolivar Sotomayor MD) Laboratory test finding (navigational concept) 7.8 % 25.0-40 .0 Below low normal [facility] (Bolivar Sotomayor MD) Laboratory test finding (navigational concept) 6.6 % 3.0-8.0 [facility] (Bolivar Sotomayor MD) Laboratory test finding (navigational concept) 0.5 % 0.0-0.0 Above high normal [facility] (Bolivar Sotomayor MD) Laboratory test finding (navigational concept) 0.1 % 0.0-2.5 [facility] (Bolivar Sotomayor MD) Laboratory test finding (navigational concept) 11.15 10^3/uL 2 .00-6.90 Above high normal [facility] (Bolivar Sotomayor MD) Laboratory test finding (navigational concept) 0.0 % 0.0-0.0 [facility] (Bolivar Sotomayor MD) Laboratory test finding (navigational concept) 1.03 10^3/uL 0.60-3.40 [facility] (Bolivar Sotomayor MD) Laboratory test finding (navigational concept) 0.87 10^3/uL 0.00-0.90 [facility] (Bolivar Sotomayor MD) Laboratory test finding (navigational concept) 0.01 10^3/uL 0.00-0.70 [facility] (Bolivar Sotomayor MD) Laboratory test finding (navigational concept) 0.00 10^3/uL 0.00-0.00 [facility] (Bolivar Sotomayor MD) Laboratory test finding (navigational concept) 0.06 10^3/uL 0.00-0.10 [facility] (Bolivar Sotomayor MD) Laboratory test finding (navigational concept) 0.01 10^3/uL 0.00-0.20 [facility] (Bolivar Sotomayor MD) Laboratory test finding (navigational concept) Laboratory test result [facility] (Bolivar Sotomayor MD) Laboratory test finding (navigational concept) Laboratory test result [facility] (Bolivar Sotomayor MD) ID Date Data Source [id number] 05/10/2020 06:19:00 AM EST [facility] (Bolivar Sotomayor MD) Name Value Range Interpretation Code Description Data Vivian rce(s) Supporting Document(s) Laboratory test finding (navigational concept) 19.6 s 1 1.0-15.5 Above high normal [facility] (Bolivar Sotomayor MD) Laboratory test finding (navigational concept) 1.58 0 .93-1.23 Above high normal [facility] (Bolivar Sotomayor MD) \\BLDo\\INR INTERPRETATION\\BLDx\\ Therapeutic range for Coumadin and related oral anticoagulants. -International Normalized Ratio (INR): 2 .0 - 3.0 for Venous Thrombosis, Pulmonary Embolus, Tissue heart valves, Acute ME, Atrial Fibrillation, Valvular heart disease and recurrent Systemic Embolism. -International Normalized Ratio (INR): 2 .5 - 3.5 for Mechanical Prosthetic valve. ID Date Data Source [id number] 05/10/2020 07:38:00 AM EST [facility] Name Value Range Interpretation Code Description Data Vivian rce(s) Supporting Document(s) COMPREHENSIVE METABOLIC PANEL [facility] COMPREHENSIVE METABOLIC PANEL Sodium [Moles/volume] in Serum or Plasma 138 mEq/L 134 - 153 [facility] Potassium [Moles/volume] in Serum or Plasma 3.8 mEq/L 3.6 - 5.0 [facility] Chloride [Moles/volume] in Serum or Plasma 93 mEq/L 98 - 107 L [facility] Carbon dioxide, total [Moles/volume] in Serum or Plasma 38 MEQ/L 22 - 30 H [facility] Glucose [Mass/volume] in Serum or Plasma 168 MG/DL 65 - 110 H [facility] BUN 34 MG/DL 7 - 21 H [facility] Creatinine [Mass/volume] in Serum or Plasma 1.1 MG/DL 0.7 - 1.5 [facility] BUN/CREAT 31 8 - 27 H [facility] al Protein [Mass/volume] in Serum or Plasma 5.8 G/DL 6.3 - 8.2 L [facility] Albumin [Mass/volume] in Serum or Plasma 3.8 G/DL 3.9 - 5.0 L [facility] Globulin [Mass/volume] in Serum by calculation 2.0 GM/DL 2.4 - 3.2 L [facility] A/G RATIO 1.9 0.8 - 2.0 [facility] Calcium [Mass/volume] in Serum or Plasma 9.2 MG/DL 8.4 - 10.2 [facility] Bilirubin.total [Mass/volume] in Serum or Plasma 1.2 MG/DL 0.2 - 1.3 [facility] Alkaline phosphatase [Enzymatic activity/volume] in Serum or Plasma 224 U/L 38 - 126 H [facility] Aspartate aminotransferase [Enzymatic activity/volume] in Serum or Plasma 16 U/L 5 - 40 [facility] Alanine aminotransferase [Enzymatic activity/volume] in Seru m or Plasma 10 U/L 7 - 56 [facility] Anion gap 3 in Serum or Plasma 7.0 mmol/L 8.0 - 16.0 L [facility] AGE 80 yrs [facility] NON-AA GFR 51 mL/min [facility] AFR AMER GFR >60 [facility] Male GFR In terprentation 20-49 yrs >60 mL/min Normal 50-59 yrs >56 mL/min Normal 60-69 yrs >49 mL/min Normal 70-79yrs >42 mL/min Normal 80 and above >35 mL/min Normal Female GFR Interpretation 20-39 yrs >60 mL/min Normal 40-49 yrs >58 mL/min Normal 50-59 yrs >51 mL/min Normal 60-69 yrs >45 mL/min Normal 70-79 yrs >39 mL/min Normal 80 and above >32 mL/min Normal ID Date Data Source [id number] 05/10/2020 07:25:00 AM EST [facility] Name Value Range Interpretation Code Description Data Vivian rce(s) Supporting Document(s) CBC W/AUTOMATED DIFF [facility] COMPLETE BLOOD COUNT Leukocytes [#/volume] in Blood by Automated count 13.1 10^3/uL 4.2 - 11.0 H [facility] Erythrocytes [#/volume] in Blood by Automated count 4.51 10^6/uL 4. 20 - 5.40 [facility] Hemoglobin [Mass/volume] in Blood 13.8 g/dL 12.0 - 16.0 [facility] Hematocrit [Volume Fraction] of Blood by Automated count 41.0 % 3 7.0 - 47.0 [facility] Erythrocyte mean corpuscular volume [Entitic volume] by Auto mated count 90.9 fL 81.0 - 101 [facility] Erythrocyte mean corpuscular hemoglobin [Entitic mass] by Automated count 30.6 pg 27.0 - 34.0 [facility] Erythrocyte mean corpuscular hemoglobin concentration [Mass/volume] by Automated count 33.7 g/dL 31.0 - 36.0 [facility] Erythrocyte distribution width [Ratio] by Automated count 16.0 % 11.5 - 14.5 H [facility] Platelets [#/volume] in Blood by Automated count 183 10^3/uL 150 - 45 0 [facility] Platelet mean volume [Entitic volume] in Blood by Automated count 11.9 fL 7.4 - 10.4 H [facility] Neutrophils/100 leukocytes in Blood by Automated count 84.9 % 37. 0 - 80.0 H [facility] Lymphocytes/100 leukocytes in Blood by Manual count 7.8 % 25.0 - 40.0 L [facility] Monocytes/100 leukocytes in Blood by Automated count 6.6 % 3.0 - 8.0 [facility] Eosinophils/100 leukocytes in Blood by Automated count 0.1 % 0.0 - 7.0 [facility] Basophils/100 leukocytes in Blood by Automated count 0.1 % 0.0 - 2.5 [facility] %IG 0.5 % 0.0 - 0.0 H [facility] %NRBC 0.0 % 0.0 - 0.0 [facility] al Neutrophils [#/volume] in Blood by Automated count 11.15 10^3/uL 2. 00 - 6.90 H [facility] Lymphocytes [#/volume] in Blood by Automated count 1.03 10^3/uL 0.60 - 3.40 [facility] Monocytes [#/volume] in Blood by Automated count 0.87 10^3/uL 0.00 - 0.90 [facility] Eosinophils [#/volume] in Blood by Automated count 0.01 10^3/uL 0.00 - 0.70 [facility] Basophils [#/volume] in Blood by Automated count 0.01 10^3/uL 0.00 - 0.20 [facility] #IG 0.06 10^3/uL 0.00 - 0.10 [facility]ital #NRBC 0.00 10^3/uL 0.00 - 0.00 [facility] MANUAL DIFF NOT INDICATED [facility] RBC MORPH NOT INDICATED [facility] spital ID Date Data Source [id number] 05/10/2020 07:24:00 AM EST [facility] Name Value Range Interpretation Code Description Data Vivian rce(s) Supporting Document(s) Prothrombin time (PT) 19.6 SECONDS 11.0 - 15.5 H [facility] INR in Platelet poor plasma by Coagulation assay 1.58 0.93 - 1. 23 H [facility] \\BLDo\\INR INTERPRETATION\\BLDx\\ Therapeutic range for Coumadin and related oral anticoagulants. - International Normalized Ratio (INR): 2.0 - 3.0 for Venous Thrombosis, Pulmonary Embolus, Tissue heart valves, Acute ME, Atrial Fibrillation, Valvular heart disease and recurrent Systemic Embolism. -International Normalized Ratio (INR): 2.5 - 3.5 for Mechanical Prosthetic valve. ID Date Data Source [id number] 05/10/2020 12:08:00 AM EST [facility] [address] [place] [address] ---------NAME--------- NUMBER SEX AGE ADMIT DISC. XRAY# F/C TYPE ANNA Medina [id number] F 80 05/06/20 [id number] MB4 O/P DATE OF : 1940 M/R# [id number] PH#: [phone] LOCATION: EMERGENCY DEPT TRANSCRIBED: 05/10/[address] HEAD W/O CONTRAST [id number] COMPLETED:05/09/20 22:51 KJE 1328 {REASON FOR PROCEDURE :ALTERED MENTAL STATUS PHYSICIAN: MANUEL LEON ======== R A D I O L O G Y R E P O R T PATIENT HISTORY:ALTERED MENTAL STATUS ACC DLP- 759.1mGy*cmPT HX OF HYSTERECTOMY. VERIFIED 2 IDENTIFIERS. Exam has been sent to [facility] - If further informationis needed, the number is . Report will be faxed to ED and/or Xray.KJE / BRAIN (DICOM Hx)EXAM: CT Head Without IV contrast.CLINICAL HISTORY:ALTERED MENTAL STATUS ACC DLP- 759.1mGy*cm PT HX OFHYSTERECTOMY. VERIFIED 2 IDENTIFIERS. Exam has been sent to [facility] - If further information is needed, the number is .Report will be faxed to ED and/or Xray. KJETECHNIQUE: Axial computed tomography images of the head/brain withoutintravenous contrast.COMPARISON:None provided.FINDINGS:BRAIN:No evidence for intracranial hemorrhage, mass lesion, abnormal fluidcollection, or acute large vessel territory ischemia. MRI with diffusion imagingis more sensitive in the assessment of acute infarction. Mild patchyperiventricular and subcortical white matter low attenuation is nonspecific butmost commonly the sequelae of chronic small vessel ischemic disease. 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 No evidence for intracranial hemorrhage, mass lesion, abnormal fluidcollection, or acute large vessel territory ischemia. MRI with diffusion imagingis more sensitive in the assessment of acute infarction.2. Mild patchy periventricular and subcortical white matter low attenuation isnonspecific but most commonly the sequelae of chronic small vessel ischemicdisease.3. 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.While performing the above CT examination, radiation dose reduction wasaccomplished utilizing automated exposure control, adjusting of the mA and kVbased on the patient's body size and/or the use of imperative reconstructivetechniques.Electronically Signed By:Andreas Doshi MD , RadiologistDate/Time: 05/10/20 00:08 Name Value Range Interpretation Code Description Data Vivian rce(s) Supporting Document(s) ID Date Data Source [id number] 05/09/2020 11:34:00 AM EST [facility] (Bolivar Sotomayor MD) Name Value Range Interpretation Code Description Data Vivian rce(s) Supporting Document(s) Laboratory test finding (navigational concept) 517 mg/dL 6 5-110 Above upper panic limits [facility] (Bolivar Sotomayor MD) Is patient fasting? N~STAT READ PLEASE Laboratory test finding (navigational concept) Laboratory test result [facility] (Bolivar Sotomayor MD) Is patient fasting? N~STAT READ PLEASE Laboratory test finding (navigational concept) Laboratory test result [facility] (Bolivar Sotomayor MD) Is patient fasting? N~STAT READ PLEASE Laboratory test finding (navigational concept) Laboratory test result [facility] (Bolivar Sotomayor MD) Is patient fasting? N~STAT READ PLEASE ID Date Data Source [id number] 05/09/2020 12:12:00 PM [facility] Name Value Range Interpretation Code Description Data Vivian rce(s) Supporting Document(s) Glucose [Mass/volume] in Serum or Plasma 517 MG/DL 65 - 110 [facility] CALL/ READ BACK CARLY DOLAN [facility] BY: LARRY [facility] DATE/TIME 05.09.20 121 [facility] ID Date Data Source [id number] 05/09/2020 06:28:00 AM EST [facility] (Bolivar Sotomayor MD) Name Value Range Interpretation Code Description Data Vivian rce(s) Supporting Document(s) Laboratory test finding (navigational concept) 1.63 0 .93-1.23 Above high normal [facility] (Bolivar Sotomayor MD) Laboratory test finding (navigational concept) 20.1 s 1 1.0-15.5 Above high normal [facility] (Bolivar Sotomayor MD) Laboratory test finding (navigational concept) 40.2 s 2 4.8-36.7 Above high normal [facility] (Bolivar Sotomayor MD) \\BLDo\\INR INTERPRETATION\\BLDx\\ Therapeutic range for Coumadin and related oral anticoagulants. -International Normalized Ratio (INR): 2 .0 - 3.0 for Venous Thrombosis, Pulmonary Embolus, Tissue heart valves, Acute ME Atrial Fibrillation, Valvular heart disease and recurrent Systemic Embolism. -International Normalized Ratio (INR): 2 .5 - 3.5 for Mechanical Prosthetic valve. ID Date Data Source [id number] 05/09/2020 06:28:00 AM EST [facility] (Bolivar Sotomayor MD) Name Value Range Interpretation Code Description Data Vivian rce(s) Supporting Document(s) Laboratory test finding (navigational concept) Laboratory test result [facility] (Bolivar Sotomayor MD) COMPLETE BLOOD COUNT Laboratory test finding (navigational concept) 8.3 10^3/uL 4.2-11.0 [facility] (Bolivar Sotomayor MD) Laboratory test finding (navigational concept) 13.8 g/dL 12.0-16.0 [facility] (Bolivar Sotomayor MD) Laboratory test finding (navigational concept) 4.52 10^6/uL 4.20-5.40 [facility] (Bolivar Sotomayor MD) Laboratory test finding (navigational concept) 41.6 % 37.0-47.0 [facility] (Bolivar Sotomayor MD) Laboratory test finding (navigational concept) 92.0 fL 81.0-101 [facility] (Bolivar Sotomayor MD) Laboratory test finding (navigational concept) 30.5 pg 27.0-34.0 [facility] (Bolivar Sotomayor MD) Laboratory test finding (navigational concept) 16.1 % 1 1.5-14.5 Above high normal [facility] (Bolivar Sotomayor MD) Laboratory test finding (navigational concept) 33.2 g/dL 31.0-36.0 [facility] (Bolivar Sotomayor MD) Laboratory test finding (navigational concept) 12.7 fL 7 .4-10.4 Above high normal [facility] (Bolivar Sotomayor MD) Laboratory test finding (navigational concept) 173 10^3/uL 150-450 [facility] (Bolivar Sotomayor MD) Laboratory test finding (navigational concept) 84.4 % 3 7.0-80.0 Above high normal [facility] (Bolivar Sotomayor MD) Laboratory test finding (navigational concept) 2.0 % 3.0-8.0 Below low normal [facility] (Bolivar Sotomayor MD) Laboratory test finding (navigational concept) 11.0 % 2 5.0-40.0 Below low normal [facility] (Bolivar Sotomayor MD) Laboratory test finding (navigational concept) 2.3 % 0.0-7.0 [facility] (Bolivar Sotomayor MD) Laboratory test finding (navigational concept) 0.1 % 0.0-2.5 [facility] (Bolivar Sotomayor MD) Laboratory test finding (navigational concept) 0.2 % 0.0-0.0 Above high normal [facility] (Bolivar Sotomayor MD) Laboratory test finding (navigational concept) 0.91 10^3/uL 0.60-3.40 [facility] (Bolivar Sotomayor MD) Laboratory test finding (navigational concept) 0.0 % 0.0-0.0 [facility] (Bolivar Sotomayor MD) Laboratory test finding (navigational concept) 7.01 10^3/uL 2 .00-6.90 Above high normal [facility] (Bolivar Sotomayor MD) Laboratory test finding (navigational concept) 0.17 10^3/uL 0.00-0.90 [facility] (Bolivar Sotomayor MD) Laboratory test finding (navigational concept) 0.19 10^3/uL 0.00-0.70 [facility] (Bolivar Sotomayor MD) Laboratory test finding (navigational concept) 0.02 10^3/uL 0.00-0.10 [facility] (Bolivar Sotomayor MD) Laboratory test finding (navigational concept) 0.01 10^3/uL 0.00-0.20 [facility] (Bolivar Sotomayor MD) Laboratory test finding (navigational concept) 82 % 37-80 Above high normal [facility] (Bolivar Sotomayor MD) Laboratory test finding (navigational concept) 0.00 10^3/uL 0.00-0.00 [facility] (Bolivar Sotomayor MD) Laboratory test finding (navigational concept) Laboratory test result [facility] (Bolivar Sotomayor MD) Laboratory test finding (navigational concept) 16 % 25-40 Below low normal [facility] (Bolivar Sotomayor MD) Laboratory test finding (navigational concept) 2 % 3-8 Below low normal [facility] (Bolivar Sotoamyor MD) Laboratory test finding (navigational concept) Laboratory test result [facility] (Bolivar Sotomayor MD) Laboratory test finding (navigational concept) Laboratory test result [facility] (Bolivar Sotomayor MD) COMMENT: Laboratory test finding (navigational concept) Laboratory test r esult Abnormal (applies to non-numeric results) [facility] (Bolivar Sotomayor MD ) { SICKLE CELL (NORMAL: NONE SEEN ) ID Date Data Source [id number] 05/09/2020 06:28:00 AM EST [facility] (Bolivar Sotomayor MD) Name Value Range Interpretation Code Description Data Vivian rce(s) Supporting Document(s) Laboratory test finding (navigational concept) Laboratory test result [facility] (Bolivar Sotomayor MD) COMPREHENSIVE METABOLIC PANEL Laboratory test finding (navigational concept) 4.1 meq/L 3.6-5.0 [facility] (Bolivar Sotomayor MD) Laboratory test finding (navigational concept) 137 meq/L 134-153 [facility] (Bolivar Sotomayor MD) Laboratory test finding (navigational concept) 39 meq/L 22-30 Above high normal [facility] (Boilvar Sotomayor MD) Laboratory test finding (navigational concept) 91 meq/L 98-107 Below low normal [facility] (Bolivar Sotomayor MD) Laboratory test finding (navigational concept) 348 mg/dL 6 5-110 Above high normal [facility] (Bolivar Sotomayor MD) Laboratory test finding (navigational concept) 1.2 mg/dL 0.7-1.5 [facility] (Bolivar Sotomayor MD) Laboratory test finding (navigational concept) 28 mg/dL 7-21 Above high normal [facility] (Bolivar Sotomayor MD) Laboratory test finding (navigational concept) 23 8-27 [facility] (Bolivar Sotomayor MD) Laboratory test finding (navigational concept) 3.9 g/dL 3.9-5.0 [facility] (Bolivar Sotomayor MD) Laboratory test finding (navigational concept) 5.9 g/dL 6 .3-8.2 Below low normal [facility] (Bolivar Sotomayor MD) Laboratory test finding (navigational concept) 9.0 mg/dL 8.4-10.2 [facility] (Bolivar Sotomayor MD) Laboratory test finding (navigational concept) 2.0 GM/DL 2 .4-3.2 Below low normal [facility] (Bolivar Sotomayor MD) Laboratory test finding (navigational concept) 2.0 0.8-2.0 [facility] (Bolivar Sotomayor MD) Laboratory test finding (navigational concept) 261 U/L 38-126 Above high normal [facility] (Bolivar Sotomayor MD) Laboratory test finding (navigational concept) 1.4 mg/dL 0 .2-1.3 Above high normal [facility] (Bolivar Sotomayor MD) Laboratory test finding (navigational concept) 12 U/L 7-56 [facility] (Bolivar Sotomayor MD) Laboratory test finding (navigational concept) 19 U/L 5-40 [facility] (Bolivar Sotomayor MD) Laboratory test finding (navigational concept) 7.0 mmol/L 8 .0-16.0 Below low normal [facility] (Bolivar Sotomayor MD) Laboratory test finding (navigational concept) 46 mL/min [facility] (Bolivar Sotomayor MD) Laboratory test finding (navigational concept) 80 yrs [facility] (Bolivar Sotomayor MD) Laboratory test finding (navigational concept) Laboratory test result [facility] (Bolivar Sotomayor MD) Male GFR Interprentation 20-49 yrs >60 mL/min Normal 50-59 yrs >56 mL/min Normal 60-69 yrs >49 mL/min Normal 70-79yrs >42 mL/min Normal 80 and above >35 mL/min Normal Female GFR Interpretation 20-39 yrs >60 mL/min Normal 40-49 yrs >58 mL/min Normal 50-59 yrs >51 mL/min Normal 60-69 yrs >45 mL/min Normal 70-79 yrs >39 mL/min Normal 80 and above >32 mL/min Normal ID Date Data Source [id number] 05/09/2020 08:11:00 AM EST [facility] Name Value Range Interpretation Code Description Data Vivian rce(s) Supporting Document(s) CBC W/AUTOMATED DIFF [facility] COMPLETE BLOOD COUNT Leukocytes [#/volume] in Blood by Automated count 8.3 10^3/uL 4.2 - 1 1.0 [facility] Erythrocytes [#/volume] in Blood by Automated count 4.52 10^6/uL 4. 20 - 5.40 [facility] Hemoglobin [Mass/volume] in Blood 13.8 g/dL 12.0 - 16.0 [facility] Hematocrit [Volume Fraction] of Blood by Automated count 41.6 % 3 7.0 - 47.0 [facility] Erythrocyte mean corpuscular volume [Entitic volume] by Auto mated count 92.0 fL 81.0 - 101 [facility] Erythrocyte mean corpuscular hemoglobin [Entitic mass] by Automated count 30.5 pg 27.0 - 34.0 [facility] Erythrocyte mean corpuscular hemoglobin concentration [Mass/volume] by Automated count 33.2 g/dL 31.0 - 36.0 [facility] Erythrocyte distribution width [Ratio] by Automated count 16.1 % 11.5 - 14.5 H [facility] Platelets [#/volume] in Blood by Automated count 173 10^3/uL 150 - 45 0 [facility] Platelet mean volume [Entitic volume] in Blood by Automated count 12.7 fL 7.4 - 10.4 H [facility] Neutrophils/100 leukocytes in Blood by Automated count 84.4 % 37. 0 - 80.0 H [facility] Lymphocytes/100 leukocytes in Blood by Manual count 11.0 % 25.0 - 40.0 L [facility] Monocytes/100 leukocytes in Blood by Automated count 2.0 % 3.0 - 8.0 L [facility] Eosinophils/100 leukocytes in Blood by Automated count 2.3 % 0.0 - 7.0 [facility] Basophils/100 leukocytes in Blood by Automated count 0.1 % 0.0 - 2.5 [facility] %IG 0.2 % 0.0 - 0.0 H [facility] %NRBC 0.0 % 0.0 - 0.0 [facility] Neutrophils [#/volume] in Blood by Automated count 7.01 10^3/uL 2.00 - 6.90 H [facility] Lymphocytes [#/volume] in Blood by Automated count 0.91 10^3/uL 0.60 - 3.40 [facility] Monocytes [#/volume] in Blood by Automated count 0.17 10^3/uL 0.00 - 0.90 [facility] Eosinophils [#/volume] in Blood by Automated count 0.19 10^3/uL 0.00 - 0.70 [facility] Basophils [#/volume] in Blood by Automated count 0.01 10^3/uL 0.00 - 0.20 [facility] #IG 0.02 10^3/uL 0.00 - 0.10 [facility] #NRBC 0.00 10^3/uL 0.00 - 0.00 [facility] MANUAL DIFF SEE BELOW [facility] ital Segmented neutrophils/100 leukocytes in Blood by Manual count 82 % 37 - 80 H [facility] %LYMPH 16 % 25 - 40 L [facility] %MONO 2 % 3 - 8 L [facility] RBC MORPH SEE BELOW [facility] Poikilocytosis [Presence] in Blood by Light microscopy 1+ NOR MAL: NONE SEEN A [facility] { SICKLE CELL (NORMAL: NONE SEEN ) Platelet adequacy [Presence] in Blood by Light microscopy NORMAL NORMAL: NORMAL [facility] COMMENT: ID Date Data Source [id number] 05/09/2020 07:56:00 AM EST [facility] Name Value Range Interpretation Code Description Data Vivian rce(s) Supporting Document(s) COMPREHENSIVE METABOLIC PANEL [facility] COMPREHENSIVE METABOLIC PANEL Sodium [Moles/volume] in Serum or Plasma 137 mEq/L 134 - 153 [facility] Potassium [Moles/volume] in Serum or Plasma 4.1 mEq/L 3.6 - 5.0 [facility] Chloride [Moles/volume] in Serum or Plasma 91 mEq/L 98 - 107 L [facility] Carbon dioxide, total [Moles/volume] in Serum or Plasma 39 MEQ/L 22 - 30 H [facility] Glucose [Mass/volume] in Serum or Plasma 348 MG/DL 65 - 110 H [facility] BUN 28 MG/DL 7 - 21 [facility] Creatinine [Mass/volume] in Serum or Plasma 1.2 MG/DL 0.7 - 1.5 [facility] BUN/CREAT 23 8 - 27 [facility] Protein [Mass/volume] in Serum or Plasma 5.9 G/DL 6.3 - 8.2 L [facility] Albumin [Mass/volume] in Serum or Plasma 3.9 G/DL 3.9 - 5.0 [facility] Globulin [Mass/volume] in Serum by calculation 2.0 GM/DL 2.4 - 3.2 L [facility] A/G RATIO 2.0 0.8 - 2.0 [facility] Calcium [Mass/volume] in Serum or Plasma 9.0 MG/DL 8.4 - 10.2 [facility] Bilirubin.total [Mass/volume] in Serum or Plasma 1.4 MG/DL 0.2 - 1.3 H [facility] Alkaline phosphatase [Enzymatic activity/volume] in Serum or Plasma 261 U/L 38 - 126 H [facility] Aspartate aminotransferase [Enzymatic activity/volume] in Serum or Plasma 19 U/L 5 - 40 [facility] Alanine aminotransferase [Enzymatic activity/volume] in Seru m or Plasma 12 U/L 7 - 56 [facility] Anion gap 3 in Serum or Plasma 7.0 mmol/L 8.0 - 16.0 L [facility] AGE 80 yrs [facility] al NON-AA GFR 46 mL/min [facility] iggy AFR AMER GFR >60 [facility] Male GFR In terprentation 20-49 yrs >60 mL/min Normal 50-59 yrs >56 mL/min Normal 60-69 yrs >49 mL/min Normal 70-79yrs >42 mL/min Normal 80 and above >35 mL/min Normal Female GFR Interpretation 20-39 yrs >60 mL/min Normal 40-49 yrs >58 mL/min Normal 50-59 yrs >51 mL/min Normal 60-69 yrs >45 mL/min Normal 70-79 yrs >39 mL/min Normal 80 and above >32 mL/min Normal ID Date Data Source [id number] 05/09/2020 07:38:00 AM EST [facility] Name Value Range Interpretation Code Description Data Vivian rce(s) Supporting Document(s) Prothrombin time (PT) 20.1 SECONDS 11.0 - 15.5 H [facility] INR in Platelet poor plasma by Coagulation assay 1.63 0.93 - 1. 23 H [facility] aPTT in Blood by Coagulation assay 40.2 SECONDS 24.8 - 36.7 H [facility] \\BLDo\\INR INTERPRETATION\\BLDx\\ Therapeutic range for Coumadin and related oral anticoagulants. - International Normalized Ratio (INR): 2.0 - 3.0 for Venous Thrombosis, Pulmonary Embolus, Tissue heart valves, Acute ME Atrial Fibrillation, Valvular heart disease and recurrent Systemic Embolism. - International Normalized Ratio (INR): 2.5 - 3.5 for Mechanical Prosthetic valve. ID Date Data Source [id number] 05/08/2020 12:50:00 PM EST [facility] (Bolivar Sotomayor MD) Name Value Range Interpretation Code Description Data Vivian rce(s) Supporting Document(s) Laboratory test finding (navigational concept) Laboratory test r esult Abnormal (applies to non-numeric results) [facility] (Bolivar Sotomayor MD) Laboratory test finding (navigational concept) Laboratory test result [facility] (Bolivar Sotomayor MD) Laboratory test finding (navigational concept) Laboratory test result [facility] (Bolivar Sotomayor MD) Laboratory test finding (navigational concept) 51.4 mm/HG 3 2.0-42.0 Above high normal [facility] (Bolivar Sotomayor MD) Laboratory test finding (navigational concept) 98.3 mm/HG 75.0-100 [facility] (Bolivar Sotomayor MD) Laboratory test finding (navigational concept) 7.47 7 .34-7.44 Above high normal [facility] (Bolivar Sotomayor MD) Laboratory test finding (navigational concept) 10.7 Above high normal [facility] (Bolivar Sotomayor MD) Laboratory test finding (navigational concept) 37.8 meq/L 2 1.0-25.0 Above high normal [facility] (Bolivar Sotomayor MD) Laboratory test finding (navigational concept) 36.2 meq/L 2 0.0-24.0 Above high normal [facility] (Bolivar Sotomayor MD) Laboratory test finding (navigational concept) 98.2 % 9 5.0-98.0 Above high normal [facility] (Bolivar Sotomayor MD) ID Date Data Source [id number] 05/08/2020 01:13:00 PM EST [facility] Name Value Range Interpretation Code Description Data Vivian rce(s) Supporting Document(s) ANCA TEST POSITIVE [facility] FiO2 2 LPM3 [facility] SITE RADIAL RT [facility] pH of Arterial blood 7.47 7.34 - 7.44 [facility] Carbon dioxide [Partial pressure] in Blood 51.4 mm/HG 32.0 - 42.0 H [facility] Oxygen [Partial pressure] in Blood 98.3 mm/HG 75.0 - 100 [facility] Bicarbonate [Moles/volume] in Blood 36.2 meq/L 20.0 - 24.0 H [facility] TCO2 37.8 meq/L 21.0 - 25.0 H [facility] Base excess in Blood by calculation 10.7 -2.0 - 2.0 H [facility] O2 SAT 98.2 % 95.0 - 98.0 H [facility] ital ID Date Data Source [id number] 05/08/2020 06:17:00 AM EST [facility] (Bolivar Sotomayor MD) Name Value Range Interpretation Code Description Data Vivian rce(s) Supporting Document(s) Natriuretic peptide.B prohormone N-Terminal [Mass/volu me] in Serum or Plasma 5359 pg/mL 0-450 Above high normal [facility] (Bolivar Sotomayor MD) Magnesium [Mass/volume] in Serum or Plasma 1.9 mg/dL 1.7-2.2 [facility] (Bolivar Sotomayor MD) ID Date Data Source [id number] 05/08/2020 06:17:00 AM EST [facility] (Bolivar Sotomayor MD) Name Value Range Interpretation Code Description Data Vivian rce(s) Supporting Document(s) Laboratory test finding (navigational concept) 142 meq/L 134-153 [facility] (Bolivar Sotomayor MD) Laboratory test finding (navigational concept) 3.4 meq/L 3 .6-5.0 Below low normal [facility] (Bolivar Sotomayor MD) Laboratory test finding (navigational concept) Laboratory test result [facility] (Bolivar Sotomayor MD) COMPREHENSIVE METABOLIC PANEL Laboratory test finding (navigational concept) 96 meq/L 98-107 Below low normal [facility] (Bolivar Sotomayor MD) Laboratory test finding (navigational concept) 43 meq/L 2 2-30 Above upper panic limits [facility] (Bolivar Sotomayor MD) Laboratory test finding (navigational concept) Laboratory test result [facility] (Bolivar Sotomayor MD) Laboratory test finding (navigational concept) Laboratory test result [facility] (Bolivar Sotomayor MD) Laboratory test finding (navigational concept) Laboratory test result [facility] (Bolivar Sotomayor MD) Laboratory test finding (navigational concept) 130 mg/dL 6 5-110 Above high normal [facility] (Bolivar Sotomayor MD) Laboratory test finding (navigational concept) 21 mg/dL 7-21 [facility] (Bolivar Sotomayor MD) Laboratory test finding (navigational concept) 5.5 g/dL 6 .3-8.2 Below low normal [facility] (Bolivar Sotomayor MD) Laboratory test finding (navigational concept) 18 8-27 [facility] (Bolivar Sotomayor MD) Laboratory test finding (navigational concept) 1.2 mg/dL 0.7-1.5 [facility] (Bolivar Sotomayor MD) Laboratory test finding (navigational concept) 3.7 g/dL 3 .9-5.0 Below low normal [facility] (Bolivar Sotomayor MD) Laboratory test finding (navigational concept) 2.1 0.8-2.0 Above high normal [facility] (Bolivar Sotomayor MD) Laboratory test finding (navigational concept) 1.8 GM/DL 2 .4-3.2 Below low normal [facility] (Bolivar Sotomayor MD) Laboratory test finding (navigational concept) 1.2 mg/dL 0.2-1.3 [facility] (Bolivar Sotomayor MD) Laboratory test finding (navigational concept) 8.8 mg/dL 8.4-10.2 [facility] (Bolivar Sotomayor MD) Laboratory test finding (navigational concept) 238 U/L 38-126 Above high normal [facility] (Bolivar Sotomayor MD) Laboratory test finding (navigational concept) 11 U/L 7-56 [facility] (Bolivar Sotomayor MD) Laboratory test finding (navigational concept) 20 U/L 5-40 [facility] (Bolivar Sotomayor MD) Laboratory test finding (navigational concept) 80 yrs [facility] (Bolivar Sotomayor MD) Laboratory test finding (navigational concept) 3.0 mmol/L 8 .0-16.0 Below low normal [facility] (Bolivar Sotomayor MD) Laboratory test finding (navigational concept) 46 mL/min [facility] (Bolivar Sotomayor MD) Laboratory test finding (navigational concept) Laboratory test result [facility] (Bolivar Sotomayor MD) Male GFR Interprentation 20-49 yrs >60 mL/min Normal 50-59 yrs >56 mL/min Normal 60-69 yrs >49 mL/min Normal 70-79yrs >42 mL/min Normal 80 and above >35 mL/min Normal Female GFR Interpretation 20-39 yrs >60 mL/min Normal 40-49 yrs >58 mL/min Normal 50-59 yrs >51 mL/min Normal 60-69 yrs >45 mL/min Normal 70-79 yrs >39 mL/min Normal 80 and above >32 mL/min Normal ID Date Data Source [id number] 05/08/2020 06:17:00 AM EST [facility] (Bolivar Sotomayor MD) Name Value Range Interpretation Code Description Data Vivian rce(s) Supporting Document(s) Laboratory test finding (navigational concept) 1.94 0 .93-1.23 Above high normal [facility] (Bolivar Sotomayor MD) Laboratory test finding (navigational concept) 23.1 s 1 1.0-15.5 Above high normal [facility] (Bolivar Sotomayor MD) Laboratory test finding (navigational concept) 40.9 s 2 4.8-36.7 Above high normal [facility] (Bolivar Sotomayor MD) \\BLDo\\INR INTERPRETATION\\BLDx\\ Therapeutic range for Coumadin and related oral anticoagulants. -International Normalized Ratio (INR): 2 .0 - 3.0 for Venous Thrombosis, Pulmonary Embolus, Tissue heart valves, Acute ME Atrial Fibrillation, Valvular heart disease and recurrent Systemic Embolism. -International Normalized Ratio (INR): 2 .5 - 3.5 for Mechanical Prosthetic valve. ID Date Data Source [id number] 05/08/2020 06:17:00 AM EST [facility] (Bolivar Sotomayor MD) Name Value Range Interpretation Code Description Data Vivian rce(s) Supporting Document(s) Laboratory test finding (navigational concept) 4.20 10^6/uL 4.20-5.40 [facility] (Bolivar Sotomayor MD) Laboratory test finding (navigational concept) Laboratory test result [facility] (Bolivar Sotomayor MD) COMPLETE BLOOD COUNT Laboratory test finding (navigational concept) 6.9 10^3/uL 4.2-11.0 [facility] (Bolivar Sotomayor MD) Laboratory test finding (navigational concept) 39.3 % 37.0-47.0 [facility] (Bolivar Sotomayor MD) Laboratory test finding (navigational concept) 93.6 fL 81.0-101 [facility] (Bolivar Sotomayor MD) Laboratory test finding (navigational concept) 12.9 g/dL 12.0-16.0 [facility] (Bolivar Sotomayor MD) Laboratory test finding (navigational concept) 32.8 g/dL 31.0-36.0 [facility] (Bolivar Sotomayor MD) Laboratory test finding (navigational concept) 30.7 pg 27.0-34.0 [facility] (Bolivar Sotomayor MD) Laboratory test finding (navigational concept) 12.6 fL 7 .4-10.4 Above high normal [facility] (Bolivar Sotomayor MD) Laboratory test finding (navigational concept) 155 10^3/uL 150-450 [facility] (Bolivar Sotomayor MD) Laboratory test finding (navigational concept) 16.5 % 1 1.5-14.5 Above high normal [facility] (Bolivar Sotomayor MD) Laboratory test finding (navigational concept) 10.2 % 3.0-8.0 Above high normal [facility] (Bolivar Sotomayor MD) Laboratory test finding (navigational concept) 69.2 % 37.0-80.0 [facility] (Bolivar Sotomayor MD) Laboratory test finding (navigational concept) 16.9 % 2 5.0-40.0 Below low normal [facility] (Bolivar Sotomayor MD) Laboratory test finding (navigational concept) 0.1 % 0.0-0.0 Above high normal [facility] (Bolivar Sotomayor MD) Laboratory test finding (navigational concept) 3.2 % 0.0-7.0 [facility] (Bolivar Sotomayor MD) Laboratory test finding (navigational concept) 0.4 % 0.0-2.5 [facility] (Bolivar Sotomayor MD) Laboratory test finding (navigational concept) 1.16 10^3/uL 0.60-3.40 [facility] (Bolivar Sotomayor MD) Laboratory test finding (navigational concept) 4.74 10^3/uL 2.00-6.90 [facility] (Bolivar Sotomayor MD) Laboratory test finding (navigational concept) 0.0 % 0.0-0.0 [facility] (Bolivar Sotomayor MD) Laboratory test finding (navigational concept) 0.22 10^3/uL 0.00-0.70 [facility] (Bolivar Sotomayor MD) Laboratory test finding (navigational concept) 0.70 10^3/uL 0.00-0.90 [facility] (Bolivar Sotomayor MD) Laboratory test finding (navigational concept) 0.01 10^3/uL 0.00-0.10 [facility] (Bolivar Sotomayor MD) Laboratory test finding (navigational concept) 0.00 10^3/uL 0.00-0.00 [facility] (Bolivar Sotomayor MD) Laboratory test finding (navigational concept) 0.03 10^3/uL 0.00-0.20 [facility] (Bolivar Sotomayor MD) Laboratory test finding (navigational concept) Laboratory test result [facility] (Bolivar Sotomayor MD) Laboratory test finding (navigational concept) Laboratory test result [facility] (Bolivar Sotomayor MD) ID Date Data Source [id number] 05/08/2020 07:21:00 AM EST [facility] Name Value Range Interpretation Code Description Data Vivian rce(s) Supporting Document(s) COMPREHENSIVE METABOLIC PANEL [facility] COMPREHENSIVE METABOLIC PANEL Sodium [Moles/volume] in Serum or Plasma 142 mEq/L 134 - 153 [facility] Potassium [Moles/volume] in Serum or Plasma 3.4 mEq/L 3.6 - 5.0 L [facility] Chloride [Moles/volume] in Serum or Plasma 96 mEq/L 98 - 107 L [facility] Carbon dioxide, total [Moles/volume] in Serum or Plasma 43 MEQ/L 22 - 30 HH [facility] CALL/ READ BACK CARLY JOHNSON RN [facility] BY: LARRY [facility] DATE/TIME 05.08.20719 [facility] Glucose [Mass/volume] in Serum or Plasma 130 MG/DL 65 - 110 H [facility] BUN 21 MG/DL 7 - 21 [facility] Creatinine [Mass/volume] in Serum or Plasma 1.2 MG/DL 0.7 - 1.5 [facility] BUN/CREAT 18 8 - 27 [facility] Protein [Mass/volume] in Serum or Plasma 5.5 G/DL 6.3 - 8.2 L [facility] Albumin [Mass/volume] in Serum or Plasma 3.7 G/DL 3.9 - 5.0 L [facility] Globulin [Mass/volume] in Serum by calculation 1.8 GM/DL 2.4 - 3.2 L [facility] A/G RATIO 2.1 0.8 - 2.0 H [facility] Calcium [Mass/volume] in Serum or Plasma 8.8 MG/DL 8.4 - 10.2 [facility] Bilirubin.total [Mass/volume] in Serum or Plasma 1.2 MG/DL 0.2 - 1.3 [facility] Alkaline phosphatase [Enzymatic activity/volume] in Serum or Plasma 238 U/L 38 - 126 H [facility] Aspartate aminotransferase [Enzymatic activity/volume] in Serum or Plasma 20 U/L 5 - 40 [facility] Alanine aminotransferase [Enzymatic activity/volume] in Seru m or Plasma 11 U/L 7 - 56 [facility] Anion gap 3 in Serum or Plasma 3.0 mmol/L 8.0 - 16.0 L [facility] AGE 80 yrs [facility] NON-AA GFR 46 mL/min [facility] ig[facility] AFR AMER GFR >60 [facility] Male GFR In terprentation 20-49 yrs >60 mL/min Normal 50-59 yrs >56 mL/min Normal 60-69 yrs >49 mL/min Normal 70-79yrs >42 mL/min Normal 80 and above >35 mL/min Normal Female GFR Interpretation 20-39 yrs >60 mL/min Normal 40-49 yrs >58 mL/min Normal 50-59 yrs >51 mL/min Normal 60-69 yrs >45 mL/min Normal 70-79 yrs >39 mL/min Normal 80 and above >32 mL/min Normal ID Date Data Source [id number] 05/08/2020 07:17:00 AM [facility] Name Value Range Interpretation Code Description Data Vivian rce(s) Supporting Document(s) Magnesium [Mass/volume] in Serum or Plasma 1.9 MG/DL 1.7 - 2.2 [facility] ID Date Data Source [id number] 05/08/2020 07:14:00 AM [facility] Name Value Range Interpretation Code Description Data Vivian rce(s) Supporting Document(s) BNP 5359 PG/ML 0 - 450 H [facility] ID Date Data Source [id number] 05/08/2020 07:04:00 AM [facility] Name Value Range Interpretation Code Description Data Vivian rce(s) Supporting Document(s) CBC W/AUTOMATED DIFF [facility] COMPLETE BLOOD COUNT Leukocytes [#/volume] in Blood by Automated count 6.9 10^3/uL 4.2 - 1 1.0 [facility] Erythrocytes [#/volume] in Blood by Automated count 4.20 10^6/uL 4. 20 - 5.40 [facility] Hemoglobin [Mass/volume] in Blood 12.9 g/dL 12.0 - 16.0 [facility] Hematocrit [Volume Fraction] of Blood by Automated count 39.3 % 3 7.0 - 47.0 [facility] Erythrocyte mean corpuscular volume [Entitic volume] by Auto mated count 93.6 fL 81.0 - 101 [facility] Erythrocyte mean corpuscular hemoglobin [Entitic mass] by Automated count 30.7 pg 27.0 - 34.0 [facility] Erythrocyte mean corpuscular hemoglobin concentration [Mass/volume] by Automated count 32.8 g/dL 31.0 - 36.0 [facility] Erythrocyte distribution width [Ratio] by Automated count 16.5 % 11.5 - 14.5 H [facility] Platelets [#/volume] in Blood by Automated count 155 10^3/uL 150 - 45 0 [facility] Platelet mean volume [Entitic volume] in Blood by Automated count 12.6 fL 7.4 - 10.4 H [facility] Neutrophils/100 leukocytes in Blood by Automated count 69.2 % 37. 0 - 80.0 [facility] Lymphocytes/100 leukocytes in Blood by Manual count 16.9 % 25.0 - 40.0 L [facility] Monocytes/100 leukocytes in Blood by Automated count 10.2 % 3.0 - 8.0 H [facility] Eosinophils/100 leukocytes in Blood by Automated count 3.2 % 0.0 - 7.0 [facility] Basophils/100 leukocytes in Blood by Automated count 0.4 % 0.0 - 2.5 [facility] %IG 0.1 % 0.0 - 0.0 [facility] %NRBC 0.0 % 0.0 - 0.0 [facility] al Neutrophils [#/volume] in Blood by Automated count 4.74 10^3/uL 2.00 - 6.90 [facility] Lymphocytes [#/volume] in Blood by Automated count 1.16 10^3/uL 0.60 - 3.40 [facility] Monocytes [#/volume] in Blood by Automated count 0.70 10^3/uL 0.00 - 0.90 [facility] Eosinophils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 day. Lipitor Oral (Tablet 80 mg) 1 tablet, daily at bedtime. Lyrica Oral (Capsule 75 mg) 1 capsule, 2x a day. Omeprazole Oral 20 mg, daily. Plavix Oral 75 mg, daily. Synthroid Oral (Tablet 100 mcg) 1 tablet, daily. Toujeo SoloStar Subcutaneous (Solution Pen-injector 300 unit/mL) 35 units, daily. Vitamin c Oral (Tablet 500 mg) 1 tablet, daily. Vitamin D-3 Oral 2000, daily. Warfarin Sodium Oral (Tablet 3 mg) 1 tablet, daily. Allergies: Aloe. PCN. Penicillins.SOCIAL HISTORYNever smoker. No alcohol use or drug use.ADDITIONAL NOTESThe nursing notes have been reviewed.PHYSICAL EXAM 3 Clinical Report - Physicians/Mid Levels [facility] Emergency Department [address] [place] [address] Phone #: ext- [phone] 05/06/2020 16:15 Patient: JOY DENT Sex: F : 1940 Age: 80y Vital Signs: 05/06/2020 16:17 BP: 144/92. MAP: 109. HR: 60. RR: 20. O2 saturation: 99%. Temp: 97.6 F. Oxygen saturation: on 2 liters of O2- oxygen saturation normal. Appearance: Alert. No acute distress. Anxious. Eyes: Pupils equal, round and reactive to light. No nystagmus. Extraocular movements normal. ENT: Normal ENT inspection. Moist mucous membranes. Pharynx normal. Neck: Normal inspection. Neck supple. CVS: Normal heart rate and rhythm. Heart sounds normal. Respiratory: No respiratory distress. Painless inspiration. Crackles present in the bases bilaterally. No wheezes or rhonchi. Abdomen: Soft and nontender. No organomegaly. Obese. Back: Normal inspection. CVA tenderness. Skin: Skin warm and dry. Normal skin color. No rash. Normal skin turgor. Extremities: Bilateral 1+ edema of the lower extremities involving both feet, both ankles and both lower legs. Extremities exhibit normal ROM. Neuro: Alert. Oriented X 3. Cranial nerves normal (as tested). No cerebellar findings. No motor deficit. No sensory deficit.LABS, X-RAYS, AND EKGEKG: EKG time: 16:05/06/2020. ventricular-paced rhythm. EKG unchanged when compared withprior EKG. (Mar 23). The study has been interpreted contemporaneously by me. The study hasbeen independently viewed by me. I agree with and confirm the computer reading of the EKG.Interpretation time: 16:05/06/2020.Chest X-ray: (Vic yadav Mike - [facility]06[facility]2020 [facility]47[facility] The X-rays were interpreted by the radiologist.Laboratory Tests: CBC w Diff: (KATELYN: 05/06/2020 16:35) ( MsgRcvd 05/06/2020 16:54) Final results Test Result Flag Units (Reference) CBC W/AUTOMATED DIFF COMPLETE BLOOD COUNT WBC 7.6 10/uL (4.2 - 11.0) RBC 4.30 10/uL (4.20 - 5.40) HEMOGLOBIN 13.2 g/dL (12.0 - 16.0) HEMATOCRIT 40.5 % (37.0 - 47.0) MCV 94.2 fL (81.0 - 101) MCH 30.7 pg (27.0 - 34.0) MCHC 32.6 g/dL (31.0 - 36.0) RDW 16.5 H % (11.5 - 14.5) PLATELETS 135 L 10/uL (150 - 450) MPV 11.7 H fL (7.4 - 10.4) NEUT 74.9 % (37.0 - 80.0) LYMPH 15.2 L % (25.0 - 40.0) MONO 9.0 H % (3.0 - 8.0) EOS 0.4 % (0.0 - 7.0) BASO 0.4 % (0.0 - 2.5) %IG 0.1 H % (0.0 - 0.0) %NRBC 0.0 % (0.0 - 0.0) #NEUT 5.67 10/uL (2.00 - 6.90) #LYMPH 1.15 10/uL (0.60 - 3.40) #MONO 0.68 10/uL (0.00 - 0.90) #EOS 0.03 10/uL (0.00 - 0.70) 4 Clinical Report - Physicians/Mid Levels [facility] Emergency Department [address] [place] [address] Phone #: ext- [phone] 05/06/2020 16:15 Patient: JOY DENT Sex: F : 1940 Age: 80y #BASO 0.03 10/uL (0.00 - 0.20) #IG 0.01 10/uL (0.00 - 0.10) #NRBC 0.00 10/uL (0.00 - 0.00) MANUAL DIFF NOT INDICATED RBC MORPH NOT INDICATEDCMP: (KATELYN: 05/06/2020 16:35) ( MsgRcvd 05/06/2020 17:22) Final results Test Result Flag Units (Reference) COMPREHENSIVE METABOLIC PANEL COMPREHENSIVE METABOLIC PANEL SODIUM 134 mEq/L (134 - 153) POTASSIUM 4.6 mEq/L (3.6 - 5.0) CHLORIDE 91 L mEq/L (98 - 107) CO2 36 H MEQ/L (22 - 30) GLUCOSE 304 H MG/DL (65 - 110) BUN 23 H MG/DL (7 - 21) CREATININE 1.3 MG/DL (0.7 - 1.5) BUN/CREAT 18 (8 - 27) TOTAL PROTEIN 6.0 L G/DL (6.3 - 8.2) ALBUMIN 4.1 G/DL (3.9 - 5.0) GLOBULIN 1.9 L GM/DL (2.4 - 3.2) A/G RATIO 2.2 H (0.8 - 2.0) CALCIUM 8.9 MG/DL (8.4 - 10.2) TOTAL BILI 1.5 H MG/DL (0.2 - 1.3) ALKALINE PHOS 257 H U/L (38 - 126) SGOT/AST 23 U/L (5 - 40) SGPT/ALT 13 U/L (7 - 56) ANION GAP 7.0 L mmol/L (8.0 - 16.0) AGE 80 yrs NON-AA GFR 42 mL/min AFR AMER GFR >60 Male GFR Interprentation 20-49 yrs >60 mL/min Nvpfon51-84 yrs >56 mL/min Normal 60-69 yrs >49 mL/min Normal 70-79yrs>42 mL/min Normal 80 and above >35 mL/min Normal Female GFRInterpretation 20-39 yrs >60 mL/min Normal 40-49 yrs >58 mL/minNormal 50-59 yrs >51 mL/min Normal 60-69 yrs >45 mL/min Tmudad19-94 yrs >39 mL/min Normal 80 and above >32 mL/min NormalLipase: (KATELYN: 05/06/2020 16:35) ( [facility] 05/06[facility] 17:21) Final results Test Result Flag Units (Reference) LIPASE 28 U/L (13 - 60)Troponin-T: (KATELYN: 05/06/2020 16:35) ( MsgRcvd 05/06/2020 17:21) Final results Test Result Flag Units (Reference) TROPONIN T <0.01 NG/ML (0.00 - 0.10) TROPONIN T0.1 ng/ml Recommended as the clinical threshold value forTroponin T.BNP: (KATELYN: 05/06/2020 16:35) ( MsgRcvd 05/06/2020 17:21) Final results Test Result Flag Units (Reference) BNP 8942 H PG/ML (0 - 450)PT/INR: (KATELYN: 05/06/2020 16 :35) ( [facility] 05/06/2020 17:15) Final results Test Result Flag Units (Reference) PROTIME 24.2 H SECONDS (11.0 - 15.5) 5 Clinical Report - Physicians/Mid Levels [facility] Emergency Department [address] [place] [address] Phone #: ext- [phone] 05/06/2020 16:15 Patient: JOY DENT Sex: F : 1940 Age: 80y INR 2.06 H (0.93 - 1.23) \\BLDo\\INR INTERPRETATION\\BLDx\\ Therapeutic range for Coumadin and related oral anticoagulants. -International Normalized Ratio (INR): 2.0 - 3.0 for Venous Thrombosis, Pulmonary Embolus, Tissue heart valves, Acute ME, Atrial Fibrillation, Valvular heart disease and recurrent Systemic Embolism. -International Normalized Ratio (INR): 2.5 - 3.5 for Mechanical Prosthetic valve. Chest Portable 1 View: (KATELYN: 05/06/2020 16:26) ( [facility] 05/06/2020 17:06) In Progress CHEST PORTABLE Reason(s): Chest Pain TRANSPORTATION: P IV? O2? Oxygen?(Yes) Room: E Venous Blood Gas: (KATELYN: 05/06/2020 16:35) ( [facility] 05/06/2020 17:02) Final results Test * *Result Flag Units (Reference) pH V 7.39 (7.32 - 7.43) pCO2 V 61.5 H mm/HG (38.0 - 51.0) pO2 V 34.3 mm/HG (30.0 - 55.0) HCO3 V 36.5 H meq/L (22.0 - 29.0) TCO2 V 38.4 H meq/L (22.0 - 29.0) BASE EXCESS 9.3 H (-2.0 - 2.0) O2 SAT V 67.1 % (40.0 - 85.0).PROGRESS AND PROCEDURESCourse of Care: 17:28 05/06/20. Patient noted to have elevated BNP, troponin normal. CXR w showedCHF. will give lasix 40 mg IVP. I called Dr Sotomayor who wanted me to call Joselin. Critical care performed (60 minutes). Time is exclusive of separately billable procedures. Time includes: direct patient care, patient reassessment, coordination of patient care, interpretation of data (laboratory data and chest xrays), review of patient's medical records, medical consultation and documentation of patient care- see progress notes. Discussed case with on-call health care provider. Reviewed test results. Agreed upon treatment plan and decision to place in observation. Health care provider will see patient in hospital. Disposition: Observation decision based on further evaluation, monitoring and IV therapy.CLINICAL IMPRESSION Acute dizziness. Acute moderate systolic, left ventricular congestive heart failure. 6 Clinical Report - Physicians/Mid Levels [facility] Emergency Department [address] [place] [address] Phone #: ext- [phone] 05/06/2020 16:15 Patient: JOY DENT Sex: F : 1940 Age: 80y(Electronically signed by Amara Macias 05/06/2020 22:28) Name Value Range Interpretation Code Description Data Vivian rce(s) Supporting Document(s) ID Date Data Source [id number] 05/06/2020 04:16:00 PM [facility] Addenda for JOY DENT MR N: [id number] VisitID: [id number] Date: 17:45MED REC REQUEST FAXED TO [employer] WITH [employer] @ 7041(Electronically signed by Hai Fung 05/06/2020 17:45) Name Value Range Interpretation Code Description Data Vivian rce(s) Supporting Document(s) ID Date Data Source [id number] 05/07/2020 05:37:00 AM EST [facility] (Bolivra Sotomayor MD) Name Value Range Interpretation Code Description Data [facility] rce(s) Supporting Document(s) Natriuretic peptide.B prohormone N-Terminal [Mass/volu me] in Serum or Plasma 9000 pg/mL 0-450 Above high normal [facility] (Bolivar Sotomayor MD) Thyroxine (T4) free [Mass/volume] in Serum or Plasma 1.40 ng/dL 0.93- 1.70 [facility] (Bolivar Sotomayor MD) Hemoglobin A1c/Hemoglobin.total in Blood 10.7 % 4.4-6.1 Above high normal [facility] (Bolivar Sotomayor MD) {A1] {HB] ID Date Data Source [id number] 05/07/2020 05:37:00 AM EST [facility] (Bolivar Sotomayor MD) Name Value Range Interpretation Code Description Data [facility] rce(s) Supporting Document(s) Laboratory test finding (navigational concept) Laboratory test result [facility] (Bolivar Sotomayor MD) LIPID PANEL Laboratory test finding (navigational concept) 90 mg/dL 1 31-200 Below low normal [facility] (Bolivar Sotomayor MD) Laboratory test finding (navigational concept) 89 mg/dL 35-160 [facility] (Bolivar Sotomayor MD) Laboratory test finding (navigational concept) 30 mg/dL 29-86 [facility] (Bolivar Sotomayor MD) Laboratory test finding (navigational concept) 1.50 1.47-3.22 [facility] (Bolivar Sotomayor MD) CVE RISK CHOL/HDL LDL/HDL MEN: 1/2 AVERAGE 3.43 1.00 AVERAGE 4.97 3.55 2X AVERAGE 9.55 6.25 3X AVERAGE 23.99 7.99 WOMEN: 1/2 AVERAGE 3.27 1.47 AVERAGE 4.44 3.22 2X AVERAGE 7.05 5.03 3X AVERAGE 11.04 6.14 Laboratory test finding (navigational concept) 45 mg/dL 65-175 Below low normal [facility] (Bolivar Sotomayor MD) Laboratory test finding (navigational concept) 3.0 3.2-4.4 Below low normal [facility] (Bolivar Sotomayor MD) ID Date Data Source [id number] 05/07/2020 05:37:00 AM EST [facility] (Bolivar Sotomayor MD) Name Value Range Interpretation Code Description Data Vivian rce(s) Supporting Document(s) Magnesium [Mass/volume] in Serum or Plasma 1.8 mg/dL 1.7-2.2 [facility] (Bolivar Sotomayor MD) ID Date Data Source [id number] 05/07/2020 05:37:00 AM EST [facility] (Bolivar Sotomayor MD) Name Value Range Interpretation Code Description Data Vivian rce(s) Supporting Document(s) Laboratory test finding (navigational concept) Laboratory test result [facility] (Bolivar Sotomayor MD) COMPREHENSIVE METABOLIC PANEL Laboratory test finding (navigational concept) 141 meq/L 134-153 [facility] (Bolivar Sotomayor MD) Laboratory test finding (navigational concept) 3.2 meq/L 3 .6-5.0 Below low normal [facility] (Bolivar Sotomayor MD) Laboratory test finding (navigational concept) 96 meq/L 98-107 Below low normal [facility] (Bolivar Sotomayor MD) Laboratory test finding (navigational concept) 93 mg/dL 65-110 [facility] (Bolivar Sotomayor MD) Laboratory test finding (navigational concept) 40 meq/L 22-30 Above high normal [facility] (Bolivar Sotomayor MD) Laboratory test finding (navigational concept) 1.2 mg/dL 0.7-1.5 [facility] (Bolivar Sotomayor MD) Laboratory test finding (navigational concept) 21 mg/dL 7-21 [facility] (Bolivar Sotomayor MD) Laboratory test finding (navigational concept) 18 8-27 [facility] (Bolivar Sotomayor MD) Laboratory test finding (navigational concept) 3.7 g/dL 3 .9-5.0 Below low normal [facility] (Bolivar oStomayor MD) Laboratory test finding (navigational concept) 5.4 g/dL 6 .3-8.2 Below low normal [facility] (Bolivar Sotomayor MD) Laboratory test finding (navigational concept) 1.7 GM/DL 2 .4-3.2 Below low normal [facility] (Bolivar Sotomayor MD) Laboratory test finding (navigational concept) 2.2 0.8-2.0 Above high normal [facility] (Bolivar Sotomayor MD) Laboratory test finding (navigational concept) 8.4 mg/dL 8.4-10.2 [facility] (Bolivar Sotomayor MD) Laboratory test finding (navigational concept) 1.5 mg/dL 0 .2-1.3 Above high normal [facility] (Bolivar Sotomayor MD) Laboratory test finding (navigational concept) 223 U/L 38-126 Above high normal [facility] (Bolivar Sotomayor MD) Laboratory test finding (navigational concept) 20 U/L 5-40 [facility] (Bolivar Sotomayor MD) Laboratory test finding (navigational concept) 80 yrs [facility] (Bolivar Sotomayor MD) Laboratory test finding (navigational concept) 5.0 mmol/L 8 .0-16.0 Below low normal [facility] (Bolivar Sotomayor MD) Laboratory test finding (navigational concept) 10 U/L 7-56 [facility] (Bolivar Sotomayor MD) Laboratory test finding (navigational concept) Laboratory test result [facility] (Bolivar Sotomayor MD) Male GFR Interprentation 20-49 yrs >60 mL/min Normal 50-59 yrs >56 mL/min Normal 60-69 yrs >49 mL/min Normal 70-79yrs >42 mL/min Normal 80 and above >35 mL/min Normal Female GFR Interpretation 20-39 yrs >60 mL/min Normal 40-49 yrs >58 mL/min Normal 50-59 yrs >51 mL/min Normal 60-69 yrs >45 mL/min Normal 70-79 yrs >39 mL/min Normal 80 and above >32 mL/min Normal Laboratory test finding (navigational concept) 46 mL/min [facility] (Bolivar Sotomayor MD) ID Date Data Source [id number] 05/07/2020 05:37:00 AM EST [facility] (Bolivar Sotomayor MD) Name Value Range Interpretation Code Description Data Vivian rce(s) Supporting Document(s) Laboratory test finding (navigational concept) Laboratory test result [facility] (Bolivar Sotomayor MD) COMPLETE BLOOD COUNT Laboratory test finding (navigational concept) 12.3 g/dL 12.0-16.0 [facility] (Bolivar Sotomayor MD) Laboratory test finding (navigational concept) 3.97 10^6/uL 4 .20-5.40 Below low normal [facility] (Bolivar Sotomayor MD) Laboratory test finding (navigational concept) 6.2 10^3/uL 4.2-11.0 [facility] (Bolivar Sotomayor MD) Laboratory test finding (navigational concept) 93.2 fL 81.0-101 [facility] (Bolivar Sotomayor MD) Laboratory test finding (navigational concept) 37.0 % 37.0-47.0 [facility] (Bolivar Sotomayor MD) Laboratory test finding (navigational concept) 31.0 pg 27.0-34.0 [facility] (Bolivar Sotomayor MD) Laboratory test finding (navigational concept) 16.2 % 1 1.5-14.5 Above high normal [facility] (Bolivar Sotoamyor MD) Laboratory test finding (navigational concept) 33.2 g/dL 31.0-36.0 [facility] (Bolivar Sotomayor MD) Laboratory test finding (navigational concept) 12.4 fL 7 .4-10.4 Above high normal [facility] (Bolivar Sotomayor MD) Laboratory test finding (navigational concept) 64.7 % 37.0-80.0 [facility] (Bolivar Sotomayor MD) Laboratory test finding (navigational concept) 133 10^3/uL 1 50-450 Below low normal [facility] (Bolivar Sotomayor MD) Laboratory test finding (navigational concept) 19.4 % 2 5.0-40.0 Below low normal [facility] (Bolivar Sotomayor MD) Laboratory test finding (navigational concept) 11.7 % 3.0-8.0 Above high normal [facility] (Bolivar Sotomayor MD) Laboratory test finding (navigational concept) 3.5 % 0.0-7.0 [facility] (Bolivar Sotomayor MD) Laboratory test finding (navigational concept) 0.5 % 0.0-2.5 [facility] (Bolivar Sotomayor MD) Laboratory test finding (navigational concept) 0.2 % 0.0-0.0 Above high normal [facility] (Bolivar Sotomayor MD) Laboratory test finding (navigational concept) 1.21 10^3/uL 0.60-3.40 [facility] (Bolivar Sotomayor MD) Laboratory test finding (navigational concept) 4.03 10^3/uL 2.00-6.90 [facility] (Bolivar Sotomayor MD) Laboratory test finding (navigational concept) 0.0 % 0.0-0.0 [facility] (Bolivar Sotomayor MD) Laboratory test finding (navigational concept) 0.03 10^3/uL 0.00-0.20 [facility] (Bolivar Sotomayor MD) Laboratory test finding (navigational concept) 0.22 10^3/uL 0.00-0.70 [facility] (Bolivar Sotomayor MD) Laboratory test finding (navigational concept) 0.73 10^3/uL 0.00-0.90 [facility] (Bolivar Sotomayor MD) Laboratory test finding (navigational concept) Laboratory test result [facility] (Bolivar Sotomayor MD) Laboratory test finding (navigational concept) 0.01 10^3/uL 0.00-0.10 [facility] (Bolivar Sotomayor MD) Laboratory test finding (navigational concept) 0.00 10^3/uL 0.00-0.00 [facility] (Bolivar Sotomayor MD) Laboratory test finding (navigational concept) Laboratory test result [facility] (Bolivar Sotomayor MD) ID Date Data Source [id number] 05/07/2020 05:37:00 AM EST [facility] (Bolivar Sotomayor MD) Name Value Range Interpretation Code Description Data Vivian rce(s) Supporting Document(s) Laboratory test finding (navigational concept) 23.1 s 1 1.0-15.5 Above high normal [facility] (Bolivar Sotomayor MD) Laboratory test finding (navigational concept) 1.94 0 .93-1.23 Above high normal [facility] (Bolivar Sotomayor MD) \\BLDo\\INR INTERPRETATION\\BLDx\\ Therapeutic range for Coumadin and related oral anticoagulants. -International Normalized Ratio (INR): 2 .0 - 3.0 for Venous Thrombosis, Pulmonary Embolus, Tissue heart valves, Acute ME, Atrial Fibrillation, Valvular heart disease and recurrent Systemic Embolism. -International Normalized Ratio (INR): 2 .5 - 3.5 for Mechanical Prosthetic valve. ID Date Data Source [id number] 05/07/2020 02:26:00 PM [facility] Name Value Range Interpretation Code Description Data Vivian rce(s) Supporting Document(s) Hemoglobin A1c/Hemoglobin.total in Blood 10.7 % 4.4 - 6.1 H [facility] {A1]{HB] ID Date Data Source [id number] 05/07/2020 06:50:00 AM [facility] Name Value Range Interpretation Code Description Data Vivian rce(s) Supporting Document(s) BNP 9000 PG/ML 0 - 450 H [facility] ID Date Data Source [id number] 05/07/2020 06:47:00 AM [facility] Name Value Range Interpretation Code Description Data Vivian rce(s) Supporting Document(s) Thyroxine (T4) free index in Serum or Plasma by calculation 1.40 NG/DL 0.93 - 1.70 [facility] ID Date Data Source [id number] 05/07/2020 06:43:00 AM [facility] Name Value Range Interpretation Code Description Data Vivian rce(s) Supporting Document(s) CVE PANEL [facility] al LIPID PANEL Cholesterol [Mass/volume] in Serum or Plasma 90 MG/DL 131 - 200 L [facility] Deprecated Triglyceride [Mass/volume] in Serum or Plasma 89 MG/DL 3 5 - 160 [facility] HDL 30 MG/DL 29 - 86 [facility] al Cholesterol in LDL [Mass/volume] in Serum or Plasma by Direc t assay 45 mg/dL 65 - 175 L [facility] Cholesterol.total/Cholesterol in HDL [Mass Ratio] in Serum o r Plasma 3.0 3.2 - 4.4 L [facility] LDL/HDL 1.50 1.47 - 3.22 [facility] ital CVE RISK CHOL/HDL LDL/HDLMEN: 1/2 AVERAGE 3.43 1.00 AVERAGE 4.97 3.55 2X AVERAGE 9.55 6.25 3X AVERAGE 23.99 7.99WOMEN: 1/2 AVERAGE 3.27 1.47 AVERAGE 4.44 3.22 2X AVERAGE 7.05 5.03 3X AVERAGE 11.04 6.14 ID Date Data Source [id number] 05/07/2020 06:43:00 AM EST [facility] Name Value Range Interpretation Code Description Data Vivian rce(s) Supporting Document(s) COMPREHENSIVE METABOLIC PANEL [facility] COMPREHENSIVE METABOLIC PANEL Sodium [Moles/volume] in Serum or Plasma 141 mEq/L 134 - 153 [facility] Potassium [Moles/volume] in Serum or Plasma 3.2 mEq/L 3.6 - 5.0 L [facility] Chloride [Moles/volume] in Serum or Plasma 96 mEq/L 98 - 107 L [facility] Carbon dioxide, total [Moles/volume] in Serum or Plasma 40 MEQ/L 22 - 30 H [facility] Glucose [Mass/volume] in Serum or Plasma 93 MG/DL 65 - 110 [facility] BUN 21 MG/DL 7 - 21 [facility] al Creatinine [Mass/volume] in Serum or Plasma 1.2 MG/DL 0.7 - 1.5 [facility] BUN/CREAT 18 8 - 27 [facility] Protein [Mass/volume] in Serum or Plasma 5.4 G/DL 6.3 - 8.2 L [facility] Albumin [Mass/volume] in Serum or Plasma 3.7 G/DL 3.9 - 5.0 L [facility] Globulin [Mass/volume] in Serum by calculation 1.7 GM/DL 2.4 - 3.2 L [facility] A/G RATIO 2.2 0.8 - 2.0 H [facility] Calcium [Mass/volume] in Serum or Plasma 8.4 MG/DL 8.4 - 10.2 [facility] Bilirubin.total [Mass/volume] in Serum or Plasma 1.5 MG/DL 0.2 - 1.3 H [facility] Alkaline phosphatase [Enzymatic activity/volume] in Serum or Plasma 223 U/L 38 - 126 H [facility] Aspartate aminotransferase [Enzymatic activity/volume] in Serum or Plasma 20 U/L 5 - 40 [facility] Alanine aminotransferase [Enzymatic activity/volume] in Seru m or Plasma 10 U/L 7 - 56 [facility] Anion gap 3 in Serum or Plasma 5.0 mmol/L 8.0 - 16.0 L [facility] AGE 80 yrs [facility] NON-AA GFR 46 mL/min [facility] AFR AMER GFR >60 [facility] Male GFR In terprentation 20-49 yrs >60 mL/min Normal 50-59 yrs >56 mL/min Normal 60-69 yrs >49 mL/min Normal 70-79yrs >42 mL/min Normal 80 and above >35 mL/min Normal Female GFR Interpretation 20-39 yrs >60 mL/min Normal 40-49 yrs >58 mL/min Normal 50-59 yrs >51 mL/min Normal 60-69 yrs >45 mL/min Normal 70-79 yrs >39 mL/min Normal 80 and above >32 mL/min Normal ID Date Data Source [id number] 05/07/2020 06:42:00 AM EST [facility] Name Value Range Interpretation Code Description Data Vivian rce(s) Supporting Document(s) CBC W/AUTOMATED DIFF [facility] COMPLETE BLOOD COUNT Leukocytes [#/volume] in Blood by Automated count 6.2 10^3/uL 4.2 - 1 1.0 [facility] Erythrocytes [#/volume] in Blood by Automated count 3.97 10^6/uL 4. 20 - 5.40 L [facility] Hemoglobin [Mass/volume] in Blood 12.3 g/dL 12.0 - 16.0 [facility] Hematocrit [Volume Fraction] of Blood by Automated count 37.0 % 3 7.0 - 47.0 [facility] Erythrocyte mean corpuscular volume [Entitic volume] by Auto mated count 93.2 fL 81.0 - 101 [facility] Erythrocyte mean corpuscular hemoglobin [Entitic mass] by Automated count 31.0 pg 27.0 - 34.0 [facility] Erythrocyte mean corpuscular hemoglobin concentration [Mass/volume] by Automated count 33.2 g/dL 31.0 - 36.0 [facility] Erythrocyte distribution width [Ratio] by Automated count 16.2 % 11.5 - 14.5 H [facility] Platelets [#/volume] in Blood by Automated count 133 10^3/uL 150 - 45 0 L [facility] Platelet mean volume [Entitic volume] in Blood by Automated count 12.4 fL 7.4 - 10.4 H [facility] Neutrophils/100 leukocytes in Blood by Automated count 64.7 % 37. 0 - 80.0 [facility] Lymphocytes/100 leukocytes in Blood by Manual count 19.4 % 25.0 - 40.0 L [facility] Monocytes/100 leukocytes in Blood by Automated count 11.7 % 3.0 - 8.0 H [facility] Eosinophils/100 leukocytes in Blood by Automated count 3.5 % 0.0 - 7.0 [facility] Basophils/100 leukocytes in Blood by Automated count 0.5 % 0.0 - 2.5 [facility] %IG 0.2 % 0.0 - 0.0 [facility] %NRBC 0.0 % 0.0 - 0.0 [facility] al Neutrophils [#/volume] in Blood by Automated count 4.03 10^3/uL 2.00 - 6.90 [facility] Lymphocytes [#/volume] in Blood by Automated count 1.21 10^3/uL 0.60 - 3.40 [facility] Monocytes [#/volume] in Blood by Automated count 0.73 10^3/uL 0.00 - 0.90 [facility] Eosinophils [#/volume] in Blood by Automated count 0.22 10^3/uL 0.00 - 0.70 [facility] Basophils [#/volume] in Blood by Automated count 0.03 10^3/uL 0.00 - 0.20 [facility] #IG 0.01 10^3/uL 0.00 - 0.10 [facility]ital #NRBC 0.00 10^3/uL 0.00 - 0.00 [facility] ospital MANUAL DIFF NOT INDICATED [facility] RBC MORPH NOT INDICATED [facility] spital ID Date Data Source [id number] 05/07/2020 06:41:00 AM [facility] Name Value Range Interpretation Code Description Data Vivian rce(s) Supporting Document(s) Magnesium [Mass/volume] in Serum or Plasma 1.8 MG/DL 1.7 - 2.2 [facility] ID Date Data Source [id number] 05/07/2020 06:20:00 AM [facility] Name Value Range Interpretation Code Description Data Vivian rce(s) Supporting Document(s) Prothrombin time (PT) 23.1 SECONDS 11.0 - 15.5 H [facility] INR in Platelet poor plasma by Coagulation assay 1.94 0.93 - 1. 23 H [facility] \\BLDo\\INR INTERPRETATION\\BLDx\\ Therapeutic range for Coumadin and related oral anticoagulants. - International Normalized Ratio (INR): 2.0 - 3.0 for Venous Thrombosis, Pulmonary Embolus, Tissue heart valves, Acute ME, Atrial Fibrillation, Valvular heart disease and recurrent Systemic Embolism. -International Normalized Ratio (INR): 2.5 - 3.5 for Mechanical Prosthetic valve. ID Date Data Source [id number] 05/06/2020 07:47:00 PM EST [facility] Name Value Range Interpretation Code Description Data Vivian rce(s) Supporting Document(s) COVID-19 [place] This lab was ordered by [facility] and reported by [facility]. ID Date Data Source [id number] 05/06/2020 07:47:00 PM EST [facility] Name Value Range Interpretation Code Description Data Vivian rce(s) Supporting Document(s) COVID-19 [place] This lab was ordered by [facility] and reported by [facility]. ID Date Data Source [id number] 05/06/2020 08:16:00 PM [facility] Name Value Range Interpretation Code Description Data Vivian rce(s) Supporting Document(s) COVID-19 NOT DETECTED [facility] COVID-19 [facility] NOT DETECTED [facility] { PROCEDURAL CONTROL VALID KIT LOT # _[id number] 05/06/20.TAD. KIT EXP DATE _8.21 05/06/20.TAD. NORMAL RANGE IS NOT DETECTEDNEGATIVE RESULTS SHOULD BE TREATED PREUMPTIVE AND, IF INCONSISTENT WITHCLINICAL SIGNS AND SYMPTOMS OR NECESSARY FOR PATIENT MANAGEMENT, SHOULD BETESTED WITH DIFFERENT AUTHORIZED OR CLEARED MOLECULAR TESTS. NEGATIVE RESULTSDO NOT PRECLUDE SARS-CoV-2 INFECTION AND SHOULD NOT BE USED THE SOLE BASISFOR PATIENT MANAGEMENT DECISIONS. ID Date Data Source [id number] 05/06/2020 04:35:00 PM EST [facility] (Bolivar Sotomayor MD) Name Value Range Interpretation Code Description Data Vivian rce(s) Supporting Document(s) Magnesium [Mass/volume] in Serum or Plasma 1.9 mg/dL 1.7-2.2 [facility] (Bolivar Sotomayor MD) can run on today blood Thyrotropin [Units/volume] in Serum or Plasma by Detec tion limit <= 0.005 mIU/L 8.43 uIU/mL 0.47-5.01 Above high normal [facility] (Bolivar Sotomayor MD) can run on blood ID Date Data Source [id number] 05/07/2020 01:44:00 AM [facility] Name Value Range Interpretation Code Description Data Vivian rce(s) Supporting Document(s) Thyrotropin [Units/volume] in Serum or Plasma by Detec tion limit <= 0.05 mIU/L 8.43 uIU/mL 0.47 - 5.01 H [facility] ID Date Data Source [id number] 05/06/2020 08:40:00 PM [facility] Name Value Range Interpretation Code Description Data Vivian rce(s) Supporting Document(s) Magnesium [Mass/volume] in Serum or Plasma 1.9 MG/DL 1.7 - 2.2 [facility] ID Date Data Source [id number] 05/06/2020 05:21:00 PM [facility] Name Value Range Interpretation Code Description Data Vivian rce(s) Supporting Document(s) COMPREHENSIVE METABOLIC PANEL [facility] COMPREHENSIVE METABOLIC PANEL Sodium [Moles/volume] in Serum or Plasma 134 mEq/L 134 - 153 [facility] Potassium [Moles/volume] in Serum or Plasma 4.6 mEq/L 3.6 - 5.0 [facility] Chloride [Moles/volume] in Serum or Plasma 91 mEq/L 98 - 107 L [facility] Carbon dioxide, total [Moles/volume] in Serum or Plasma 36 MEQ/L 22 - 30 H [facility] Glucose [Mass/volume] in Serum or Plasma 304 MG/DL 65 - 110 H [facility] BUN 23 MG/DL 7 - 21 H [facility] al Creatinine [Mass/volume] in Serum or Plasma 1.3 MG/DL 0.7 - 1.5 [facility] BUN/CREAT 18 8 - 27 [facility] al Protein [Mass/volume] in Serum or Plasma 6.0 G/DL 6.3 - 8.2 L [facility] Albumin [Mass/volume] in Serum or Plasma 4.1 G/DL 3.9 - 5.0 [facility] Globulin [Mass/volume] in Serum by calculation 1.9 GM/DL 2.4 - 3.2 L [facility] A/G RATIO 2.2 0.8 - 2.0 H [facility] Calcium [Mass/volume] in Serum or Plasma 8.9 MG/DL 8.4 - 10.2 [facility] Bilirubin.total [Mass/volume] in Serum or Plasma 1.5 MG/DL 0.2 - 1.3 H [facility] Alkaline phosphatase [Enzymatic activity/volume] in Serum or Plasma 257 U/L 38 - 126 H [facility] Aspartate aminotransferase [Enzymatic activity/volume] in Serum or Plasma 23 U/L 5 - 40 [facility] Alanine aminotransferase [Enzymatic activity/volume] in Seru m or Plasma 13 U/L 7 - 56 [facility] Anion gap 3 in Serum or Plasma 7.0 mmol/L 8.0 - 16.0 L [facility] AGE 80 yrs [facility] NON-AA GFR 42 mL/min [facility] iggy AFR AMER GFR >60 [facility] Male GFR In terprentation 20-49 yrs >60 mL/min Normal 50-59 yrs >56 mL/min Normal 60-69 yrs >49 mL/min Normal 70-79yrs >42 mL/min Normal 80 and above >35 mL/min Normal Female GFR Interpretation 20-39 yrs >60 mL/min Normal 40-49 yrs >58 mL/min Normal 50-59 yrs >51 mL/min Normal 60-69 yrs >45 mL/min Normal 70-79 yrs >39 mL/min Normal 80 and above >32 mL/min Normal ID Date Data Source [id number] 05/06/2020 05:21:00 PM [facility] Value Range Interpretation Code Description Data Vivian rce(s) Supporting Document(s) BNP 8942 PG/ML 0 - 450 H [facility] iggy ID Date Data Source [id number] 05/06/2020 05:21:00 PM [facility] Value Range Interpretation Code Description Data Vivian rce(s) Supporting Document(s) Lipase [Enzymatic activity/volume] in Serum or Plasma 28 U/L 13 - 60 [facility] ID Date Data Source [id number] 05/06/2020 05:21:00 PM [facility] Value Range Interpretation Code Description Data Vivian rce(s) Supporting Document(s) TROPONIN T <0.01 NG/ML 0.00 - 0.10 [facility] ospital TROPONIN T0.1 ng/ml Recommended as the c linical threshold value forTroponin T. ID Date Data Source [id number] 05/06/2020 05:15:00 PM [facility] Value Range Interpretation Code Description Data Vivian rce(s) Supporting Document(s) Prothrombin time (PT) 24.2 SECONDS 11.0 - 15.5 [facility] INR in Platelet poor plasma by Coagulation assay 2.06 0.93 - 1. 23 H [facility] \\BLDo\\INR INTERPRETATION\\BLDx\\ Therapeutic range for Coumadin and related oral anticoagulants. - International Normalized Ratio (INR): 2.0 - 3.0 for Venous Thrombosis, Pulmonary Embolus, Tissue heart valves, Acute ME, Atrial Fibrillation, Valvular heart disease and recurrent Systemic Embolism. -International Normalized Ratio (INR): 2.5 - 3.5 for Mechanical Prosthetic valve. ID Date Data Source [id number] 05/06/2020 05:02:00 PM [facility] Value Range Interpretation Code Description Data Vivian rce(s) Supporting Document(s) pH of Serum or Plasma 7.39 7.32 - 7.43 [facility] pCO2 V 61.5 mm/HG 38.0 - 51.0 H [facility] pO2 V 34.3 mm/HG 30.0 - 55.0 [facility] pital Bicarbonate [Moles/volume] in Venous blood 36.5 meq/L 22.0 - 29.0 H [facility] TCO2 V 38.4 meq/L 22.0 - 29.0 H [facility] Base excess in Blood by calculation 9.3 -2.0 - 2.0 H [facility] O2 SAT V 67.1 % 40.0 - 85.0 [facility] ID Date Data Source [id number] 05/06/2020 04:54:00 PM EST [facility] Name Value Range Interpretation Code Description Data Vivian rce(s) Supporting Document(s) CBC W/AUTOMATED DIFF [facility] COMPLETE BLOOD COUNT Leukocytes [#/volume] in Blood by Automated count 7.6 10^3/uL 4.2 - 1 1.0 [facility] Erythrocytes [#/volume] in Blood by Automated count 4.30 10^6/uL 4. 20 - 5.40 [facility] Hemoglobin [Mass/volume] in Blood 13.2 g/dL 12.0 - 16.0 [facility] Hematocrit [Volume Fraction] of Blood by Automated count 40.5 % 3 7.0 - 47.0 [facility] Erythrocyte mean corpuscular volume [Entitic volume] by Auto mated count 94.2 fL 81.0 - 101 [facility] Erythrocyte mean corpuscular hemoglobin [Entitic mass] by Automated count 30.7 pg 27.0 - 34.0 [facility] Erythrocyte mean corpuscular hemoglobin concentration [Mass/volume] by Automated count 32.6 g/dL 31.0 - 36.0 [facility] Erythrocyte distribution width [Ratio] by Automated count 16.5 % 11.5 - 14.5 H [facility] Platelets [#/volume] in Blood by Automated count 135 10^3/uL 150 - 45 0 L [facility] Platelet mean volume [Entitic volume] in Blood by Automated count 11.7 fL 7.4 - 10.4 H [facility] Neutrophils/100 leukocytes in Blood by Automated count 74.9 % 37. 0 - 80.0 [facility] Lymphocytes/100 leukocytes in Blood by Manual count 15.2 % 25.0 - 40.0 L [facility] Monocytes/100 leukocytes in Blood by Automated count 9.0 % 3.0 - 8.0 H [facility] Eosinophils/100 leukocytes in Blood by Automated count 0.4 % 0.0 - 7.0 [facility] Basophils/100 leukocytes in Blood by Automated count 0.4 % 0.0 - 2.5 [facility] %IG 0.1 % 0.0 - 0.0 H [facility] al %NRBC 0.0 % 0.0 - 0.0 [facility] Neutrophils [#/volume] in Blood by Automated count 5.67 10^3/uL 2.00 - 6.90 [facility] Lymphocytes [#/volume] in Blood by Automated count 1.15 10^3/uL 0.60 - 3.40 [facility] Monocytes [#/volume] in Blood by Automated count 0.68 10^3/uL 0.00 - 0.90 [facility] Eosinophils [#/volume] in Blood by Automated count 0.03 10^3/uL 0.00 - 0.70 [facility] Basophils [#/volume] in Blood by Automated count 0.03 10^3/uL 0.00 - 0.20 [facility] #IG 0.01 10^3/uL 0.00 - 0.10 [facility] #NRBC 0.00 10^3/uL 0.00 - 0.00 [facility] MANUAL DIFF NOT INDICATED [facility] RBC MORPH NOT INDICATED [facility] ID Date Data Source [id number] 03/27/2020 09:42:00 AM EST [facility] [address] [place] [id number] PROGRESS NOTENAME: ANNA Medina ROOM#: [id number] OF : 1940 MR#: [id number] DATE: 03/25/20 OF SERVICE: 03/27/2020SUBJECTIVE:Patient feels dyspneic. Denied any chest pain. ROS: No chills or fever. She has cough. She has someorthopnea. No bowel disturbance. No urinary problem. No ankle edema. She does not have anyexpectoration.OBJECTIVE:On exam, moderately built. Blood pressure was 140/80. Head is normal. Neck is supple. Heart regularsinus rhythm. Lungs have scattered rhonchi. Abdomen soft. Extremities no pitting edema of the leg.LABORATORY DATA:Lab tests showed white count 6.9, hemoglobin 13.2, potassium 5, BUN 34, creatinine 1.3, CO2 venouswas 41, which is high. CAT scan of the chest does show a moderate infiltrate in the right lower lobe,some mild infiltrate in the right middle lobe and lingula.ASSESSMENT/PLAN:Patient has the following issues:1. Pneumonia right lung. Plan is to add Levaquin 750 mg IV q48 hours, doxycycline 100 mg bid IV. Sputum culture will be obtained.2. Decreased saturation with ambulation. PT/OT will be done.3. Plan to continue L asix. Increase Lasix to 40 mg bid IV. We will get a lactic acid tomorrow.DD: Bolivar Sotomayor MD, PC 03/27/20 09:09DT: [place] 03/27/20 09:42DS: Bolivar Sotomayor MD, PC 04/07/20 09:10 1 Name Value Range Interpretation Code Description Data Vivian rce(s) Supporting Document(s) ID Date Data Source [id number] 03/30/2020 10:16:00 [place] [address] DISCHARGE SUMMARYNAME: ANNA Medina ROOM#: [id number] OF : 1940 MR#: [id number] PHYS: Bolivar Sotomayor MD, PC DATE: 03/25/20 DISCHARGED:HISTORY OF PRESENT ILLNESS:This is an 80-year-old white female came with dyspnea, orthopnea, paroxysmal nocturnal dyspnea. Shehas a known history of COPD. She complained of dyspnea, orthopnea. She came in with congestiveheart failure, COPD, and pneumonia right lung. On exam, blood pressure was 155/68, pulse was 61,respirations 20. SaO2 was on 2 liters 92%. Head was normal. Neck supple. Neck veins distended.Heart rate was 70. Lungs had scattered rhonchi. Abdomen soft. Extremities had 2+ edema. There wererales in the mid lung field.[place] BORATORY STUDIES:X-ray of the chest showed congestive heart failure, right pleural effusion. CAT scan showedpneumonia right middle lobe moderate, right lower lobe and lingula mild. Repeat x-ray did show muchclearing. On 03/23, her white count was 8.4, hemoglobin 13.7, sodium 139, potassium 5.3, blood , BNP 5816, magnesium 2.1. On 03/24, potassium was 3.7, troponin was normal. On 03/24,hemoglobin was 12.9, white count 9.0, INR 2.06. She was in atrial fibrillation on a permanentpacemaker. On 03/25, white count 11.9. On 03/26, LDL 51, cholesterol 99. On 03/27, sodium 142,blood sugar 180, CO2 41. On 03/30, sodium 139, potassium 4.2, blood sugar 286, BUN 33, creatinine1.5, hemoglobin 12.7, CO2 40. EKG previously done.COURSE DURING HOSPITALIZATION:Patient was given Lasix 80 mg bid IV, put on potassium 20 mEq bid, and put on Diovan 40 mg daily.She was put on antibiotic, Levaquin 70 IV for 48 hours, and 48-hour doxycycline for pneumonia rightlung. She did very well and improved. She was also on Coreg 6.25 mg bid. So, she was given Lasix,Coreg, and Diovan 40, a combination of ARBS and beta-lily for congestive heart failure withejection fraction was 40-50%. She improved, and is being discharged to follow in the office. Diet:Diabetic diet.DISCHARGE MEDICATIONS:1. Handheld DuoNeb with albuterol.2. Allopurinol 100 mg daily.3. Ascorbic acid 500 mg daily.4. Aspirin 81 mg daily.5. Lipitor 80 mg at bedtime.6. Bumex 1 mg bid.7. Plavix 75 mg daily.8. Coreg 6.125 mg bid.9. Ferrous gluconate one tablet daily, 325.10. Synthroid 100 mcg daily.11. Lumigan eye drops for glaucoma. [address] [place] [address] DISCHARGE SUMMARYNAME: ANNA Medina ROOM#: [id number] OF : 1940 MR#: [id number] PHYS: Bolivar Sotomayor MD, PC DATE: 03/25/20 DISCHARGED: 12. Lyrica 75 mg bid for leg aches. 13. Toujeo insulin 40 mg daily. 14. Warfarin 10 mg daily. 15. BuSpar 7.5 mg bid. 16. Levaquin 500 mg daily for five days. 17. Probiotic bid. 18. Diovan 40 mg daily.DISCHARGE PLAN:An echo and nuclear stress have been scheduled for Lexiscan, and follow up in three weeks.FINAL DIAGNOSES:1. CONGESTIVE HEART FAILURE, SYSTOLIC EJECTION FRACTION 40-50%.2. PNEUMONIA RIGHT LOWER LOBE, RIGHT MIDDLE LOBE AND LINGULA.3. HISTORY OF DIABETES.4. HISTORY OF HYPERTENSION.5. HISTORY OF ATRIAL FIBRILLATION WITH PERMANENT PACEMAKER.6. HISTORY OF CORONARY ARTERY DISEASE.7. HISTORY OF MITRAL VALVE PROSTHESIS.8. HISTORY OF HYPOTHYROIDISM.9. HISTORY OF GOUT.DD: Bolivar Sotomayor MD, 03/30/20 09:14DT: [facility] 03/30/20 10:15DS: Bolivar Sotomayor MD, PC 04/07/20 09:10 2 Name Value Range Interpretation Code Description Data Vivian rce(s) Supporting Document(s) ID Date Data Source [id number] 03/29/2020 08:50:00 [place] [address] PROGRESS NOTENAME: ANNA Medina ROOM#: [id number] OF : 1940 MR#: [id number] DATE: 03/25/20 OF SERVICE: 03/29/20UBJECTIVE: She was admitted with CHF and has pneumonia. She is feeling much better. Her lung soundsare greatly improved. X-ray still shows consolidation. Will add Acapella. She is not wheezing.LABORATORY STUDIES: Today, white count is 6.4, hemoglobin is 12.7, hematocrit is 38.6, platelets [id number]. Sodium is 139, potassium is 4.3, chloride is 93. CO2 was elevated at 42. BUN is 33. Creatinine is 1.4.She has been afebrile. O2 saturation has been 94-96% on 2 liters. She is net negative 1200. Weight is down 3pounds. No complaints of chest pain.OBJECTIVE: Blood pressure is 138/78. Pulse 60. Respirations 18. Temperature is 98. O2 saturation is 96%on 2 liters. Patient is alert and oriented x3. Pupils equal and reactive to light. EOMs are intact. Corneas andsclerae are clear. Conjunctivae are normal. No facial asymmetry. Pharynx, tongue, and gums pink and moist.Tongue is midline. Neck is supple without lymphadenopathy. No thyromegaly or goiter. Heart is regular.Chest has decreased breath sounds, no wheeze or retraction. Abdomen is benign. Bowel sounds positive./rectal: Not done. Extremities: Trace bilateral lower extremity edema. Peripheral pulses equal and palpablebilaterally.ASSESSMENT:1. CHF, improving.2. Pneumonia, improving.PLAN: Continue respiratory treatments, IV Lasix and antibiotics. Follow up chest x-ray.DD: MARTHA Tobar 03/29/20 20:31DT: JAMEE 03/29/20 20:42DS: MARTHA Tobar 04/06/20 10:11 1 Name Value Range Interpretation Code Description Data Vivian rce(s) Supporting Document(s) ID Date Data Source [id number] 03/28/2020 11:21:00 [place] [address] PROGRESS NOTENAME: ANNA Medina ROOM#: [id number] OF : 1940 MR#: [id number] DATE: 03/25/20 OF SERVICE: 03/28/20UBJECTIVE: Admitted with CHF. Most recent chest CT showed also some pneumonia. She is onDoxycycline and levofloxacin. Will follow up on sputum culture. White count had been 11.9. It is down to7.4. H&H is 13.2, hematocrit is 39.2. Platelets slightly low at 148. Will monitor. Sodium is 139, potassium3.9, chloride 94, CO2 is 40. Nonfasting glucose is 201. BUN is 31. INR on the was 2.71. She continues onCoumadin. Will recheck PT/INR in the AM. Serial Troponins were 0.01. She states her breathing is doingbetter. No complaints of shortness of breath or chest pain. She is sitting in the chair comfortable. Respirationsare even and unlabored. Her weight is down 3 pounds.OBJECTIVE: Patient is alert and oriented x3. Temperature is 97.6. Pulse 60-74, sinus rhythm. Bloodpressure is 121/65. Pulse 60. Respirations 20. O2 saturation is 97% on 2 liters nasal cannula. Pupils equal andreactive to light. EOMs are intact. Pharynx, tongue, and gums pink and moist. Tongue is midline. Neck issupple without lymphadenopathy. No thyromegaly or goiter. Carotids 2+ without bruit. Chest has decreasedbreath sounds. No wheeze or retraction. Heart is regular. Abdomen is benign. Bowel sounds positive./rectal: Not done. Extremities: Trace edema. Peripheral pulses equal and palpable bilaterally.ASSESSMENT/PLAN:1. CHF. Weight down 3 pounds. Continue IV Lasix.2. Pneumonia. Continue antibiotics. Continue DuoNeb treatments. Start Acapella. Follow up on sputum culture. Will get chest x-ray in the AM.3. Diabetes. Will continue Basaglar as ordered and sliding scale insulin coverage.4. Hypertension, stable.5. Hypercholesteremia, on statin.DD: MARTHA Tobar 03/28/20 20:06DT: JAMEE 03/28/20 23:12DS: MARTHA Tobar 04/06/20 10:11 1 Name Value Range Interpretation Code Description Data Vivian rce(s) Supporting Document(s) ID Date Data Source [id number] 03/30/2020 12:03:00 PM [facility] [address] [place] [address] PHONE: [phone] FAX: [phone] Name .................. : ANNA Medina Acct Number.................. : [id number] ROOM. ................. : CCU1 MR Number ................... : [id number] Stay type ............. : I/P Discharge Date......... ... : Admit Date ......... : 03/25/20 Admit Phys .................... : MANUEL ALIZE Date of ....... : 1940 Family Phys ................... : [facility] Phone ..... ............. : [phone] Age ................................ : 80 Film# .................. .:[id number] Sex ................................. : F Unsigned t ranscriptions are preliminary reports and do not represent a medical or legal document CHEST 2 VIEWS [id number] COMPLETE:03/29/20 07:29 [facility] [id number] (REASON FOR CHEST: PNEUMONIA CHEST X-RAY: 2-VIEWS INDICATION: Pneumonia. FINDINGS: The lungs are well- expanded with mild chronic interstitial changes. There is a retrocardiac pneumonia in the left lower lobe. The cardiac silhouette is enlarged. There is evidence of prior cardiac surgery. A left-sided cardiac conduction device is noted. No acute osseous abnormality. IMPRESSION: Dense left lower lobe pneumonia. Mild cardiomegaly. Electronically Reviewed and Signed By Anselmo Bernstein M.D. , 03/30/20 12:03, [place] Transcribe Initials: DZ , Transcribe Date: 03/29/20 09:53, Dictation Date: Copy for: 002 [facility] Copy for: 710 [facility] REC Page 1 of 1 Name Value Range Interpretation Code Description Data Vivian rce(s) Supporting Document(s) ID Date Data Source [id number] 03/30/2020 11:25:00 AM EST [facility] [address] [place] [address] PHONE: [phone] FAX: [phone] Name .................. : ANNA ALLEN Carol Acct Number.................. : [id number] ROOM. ................. : CCU1 MR Number ................... : [id number] Stay type ............. : I/P Discharge Date......... ... : Admit Date ......... : 03/25/20 Admit Phys .................... : MANUEL ALIZE Date of ....... : 1940 Family Phys ................... : NAUN MTZ Phone .................. : [phone] Age ................................ : 80 Film# .................. .:[id number] Sex ................................. : F Unsigned transcriptions are preliminary reports and do not represent a medical or legal document CHEST 2 VIEWS 68007 COMPLETE:03/30/20 06:56 [facility] [id number] (REASON FOR CHEST: f/u RLL,f/u LLL pneumonia, f/uchf CHEST TWO VIEWS, 03/30/20: INDICATION: Pneumonia. FINDINGS: Two views of the chest were submitted for evaluation. There is new mild diffuse pulmonary edema. Smaller left lower lung opacity. Cardiac silhouette within normal limits. Patient is status post sternotomy. Left-sided pacemaker. IMPRESSION: New pulmonary edema. Left lower lung infiltrate. Electronically Reviewed and Signed By Angel Luis Novoa MD , 03/30/20 11:25, [place] Transcribe Initials: [place], Transcribe Date: 03/30/20 07:04, Dictation Date: Copy for: 002 [facility] Copy for: 710 [facility] REC Page 1 of 1 Name Value Range Interpretation Code Description Data Vivian rce(s) Supporting Document(s) ID Date Data Source [id number] 03/30/2020 05:09:00 AM EST [facility] (Bolivar Sotomayor MD) Name Value Range Interpretation Code Description Data Vivian rce(s) Supporting Document(s) Laboratory test finding (navigational concept) Laboratory test result [facility] (Bolivar Sotmoayor MD) COMPREHENSIVE METABOLIC PANEL Laboratory test finding (navigational concept) 139 meq/L 134-153 [facility] (Bolivar Sotomayor MD) Laboratory test finding (navigational concept) 4.2 meq/L 3.6-5.0 [facility] (Bolivar Sotomayor MD) Laboratory test finding (navigational concept) 40 meq/L 22-30 Above high normal [facility] (Boliavr Sotomayor MD) Laboratory test finding (navigational concept) 93 meq/L 98-107 Below low normal [facility] (Bolivar Sotomayor MD) Laboratory test finding (navigational concept) 286 mg/dL 6 5-110 Above high normal [facility] (Bolivar Sotomayor MD) Laboratory test finding (navigational concept) 33 mg/dL 7-21 Above high normal [facility] (Bolivar Sotomayor MD) Laboratory test finding (navigational concept) 1.5 mg/dL 0.7-1.5 [facility] (Bolivar Sotomayor MD) Laboratory test finding (navigational concept) 3.8 g/dL 3 .9-5.0 Below low normal [facility] (Bolivar Sotomayor MD) Laboratory test finding (navigational concept) 22 8-27 [facility] (Bolivar Sotomayor MD) Laboratory test finding (navigational concept) 5.9 g/dL 6 .3-8.2 Below low normal [facility] (Bolivar Sotomayor MD) Laboratory test finding (navigational concept) 1.8 0.8-2.0 [facility] (Bolivar Sotomayor MD) Laboratory test finding (navigational concept) 2.1 GM/DL 2 .4-3.2 Below low normal [facility] (Bolivar Sotomayor MD) Laboratory test finding (navigational concept) 229 U/L 38-126 Above high normal [facility] (Bolivar Sotomayor MD) Laboratory test finding (navigational concept) 1.1 mg/dL 0.2-1.3 [facility] (Bolivar Sotomayor MD) Laboratory test finding (navigational concept) 10.0 mg/dL 8.4-10.2 [facility] (Bolivar Sotomayor MD) Laboratory test finding (navigational concept) 17 U/L 7-56 [facility] (Bolivar Sotomayor MD) Laboratory test finding (navigational concept) 24 U/L 5-40 [facility] (Bolivar Sotomayor MD) Laboratory test finding (navigational concept) 6.0 mmol/L 8 .0-16.0 Below low normal [facility] (Bolivar Sotomayor MD) Laboratory test finding (navigational concept) 36 mL/min [facility] (Bolivar Sotomayor MD) Laboratory test finding (navigational concept) 80 yrs [facility] (Bolivar Sotomayor MD) Laboratory test finding (navigational concept) Laboratory test result [facility] (Bolivar Sotomayor MD) Male GFR Interprentation 20-49 yrs >60 mL/min Normal 50-59 yrs >56 mL/min Normal 60-69 yrs >49 mL/min Normal 70-79yrs >42 mL/min Normal 80 and above >35 mL/min Normal Female GFR Interpretation 20-39 yrs >60 mL/min Normal 40-49 yrs >58 mL/min Normal 50-59 yrs >51 mL/min Normal 60-69 yrs >45 mL/min Normal 70-79 yrs >39 mL/min Normal 80 and above >32 mL/min Normal ID Date Data Source [id number] 03/30/2020 05:09:00 AM EST [facility] (Bolivar Sotomayor MD) Name Value Range Interpretation Code Description Data Vivian rce(s) Supporting Document(s) Laboratory test finding (navigational concept) 6.6 10^3/uL 4.2-11.0 [facility] (Bolivar Sotomayor MD) Laboratory test finding (navigational concept) Laboratory test result [facility] (Bolivar Sotomayor MD) COMPLETE BLOOD COUNT Laboratory test finding (navigational concept) 4.09 10^6/uL 4 .20-5.40 Below low normal [facility] (Bolivar Sotomayor MD) Laboratory test finding (navigational concept) 12.7 g/dL 12.0-16.0 [facility] (Bolivar Sotomayor MD) Laboratory test finding (navigational concept) 38.4 % 37.0-47.0 [facility] (Bolivar Sotomayor MD) Laboratory test finding (navigational concept) 93.9 fL 81.0-101 [facility] (Bolivar Sotomayor MD) Laboratory test finding (navigational concept) 31.1 pg 27.0-34.0 [facility] (Bolivar Sotomayor MD) Laboratory test finding (navigational concept) 33.1 g/dL 31.0-36.0 [facility] (Bolivar Sotomayor MD) Laboratory test finding (navigational concept) 140 10^3/uL 1 50-450 Below low normal [facility] (Bolivar Sotomayor MD) Laboratory test finding (navigational concept) 17.2 % 1 1.5-14.5 Above high normal [facility] (Bolivar Sotomayor MD) Laboratory test finding (navigational concept) 65.3 % 37.0-80.0 [facility] (Bolivar Sotomayor MD) Laboratory test finding (navigational concept) 12.3 fL 7 .4-10.4 Above high normal [facility] (Bolivar Sotomayor MD) Laboratory test finding (navigational concept) 17.0 % 2 5.0-40.0 Below low normal [facility] (Bolivar Sotomayor MD) Laboratory test finding (navigational concept) 11.6 % 3.0-8.0 Above high normal [facility] (Bolivar Sotomayor MD) Laboratory test finding (navigational concept) 5.3 % 0.0-7.0 [facility] (Bolivar Sotomayor MD) Laboratory test finding (navigational concept) 0.5 % 0.0-2.5 [facility] (Bolivar Sotomayor MD) Laboratory test finding (navigational concept) 0.3 % 0.0-0.0 Above high normal [facility] (Bolivar Sotomayor MD) Laboratory test finding (navigational concept) 0.0 % 0.0-0.0 [facility] (Bolivar Sotomayor MD) Laboratory test finding (navigational concept) 4.29 10^3/uL 2.00-6.90 [facility] (Bolivar Sotomayor MD) Laboratory test finding (navigational concept) 0.76 10^3/uL 0.00-0.90 [facility] (Bolivar Sotomayor MD) Laboratory test finding (navigational concept) 0.35 10^3/uL 0.00-0.70 [facility] (Bolivar Sotomayor MD) Laboratory test finding (navigational concept) 1.12 10^3/uL 0.60-3.40 [facility] (Bolivar Sotomayor MD) Laboratory test finding (navigational concept) 0.03 10^3/uL 0.00-0.20 [facility] (Bolivar Sotomayor MD) Laboratory test finding (navigational concept) 0.02 10^3/uL 0.00-0.10 [facility] (Bolivar Sotomayor MD) Laboratory test finding (navigational concept) Laboratory test result [facility] (Bolivar Sotomayor MD) Laboratory test finding (navigational concept) Laboratory test result [facility] (Bolivar Sotomayor MD) Laboratory test finding (navigational concept) 0.00 10^3/uL 0.00-0.00 [facility] (Bolivar Sotomayor MD) ID Date Data Source [id number] 03/30/2020 07:05:00 AM EST [facility] Name Value Range Interpretation Code Description Data Vivian rce(s) Supporting Document(s) COMPREHENSIVE METABOLIC PANEL [facility] COMPREHENSIVE METABOLIC PANEL Sodium [Moles/volume] in Serum or Plasma 139 mEq/L 134 - 153 [facility] Potassium [Moles/volume] in Serum or Plasma 4.2 mEq/L 3.6 - 5.0 [facility] Chloride [Moles/volume] in Serum or Plasma 93 mEq/L 98 - 107 L [facility] Carbon dioxide, total [Moles/volume] in Serum or Plasma 40 MEQ/L 22 - 30 H [facility] Glucose [Mass/volume] in Serum or Plasma 286 MG/DL 65 - 110 H [facility] BUN 33 MG/DL 7 - 21 H [facility] al Creatinine [Mass/volume] in Serum or Plasma 1.5 MG/DL 0.7 - 1.5 [facility] BUN/CREAT 22 8 - 27 [facility] al Protein [Mass/volume] in Serum or Plasma 5.9 G/DL 6.3 - 8.2 L [facility] Albumin [Mass/volume] in Serum or Plasma 3.8 G/DL 3.9 - 5.0 L [facility] Globulin [Mass/volume] in Serum by calculation 2.1 GM/DL 2.4 - 3.2 L [facility] A/G RATIO 1.8 0.8 - 2.0 [facility] Calcium [Mass/volume] in Serum or Plasma 10.0 MG/DL 8.4 - 10.2 [facility] Bilirubin.total [Mass/volume] in Serum or Plasma 1.1 MG/DL 0.2 - 1.3 [facility] Alkaline phosphatase [Enzymatic activity/volume] in Serum or Plasma 229 U/L 38 - 126 H [facility] Aspartate aminotransferase [Enzymatic activity/volume] in Serum or Plasma 24 U/L 5 - 40 [facility] Alanine aminotransferase [Enzymatic activity/volume] in Seru m or Plasma 17 U/L 7 - 56 [facility] Anion gap 3 in Serum or Plasma 6.0 mmol/L 8.0 - 16.0 L [facility] AGE 80 yrs [facility] NON[facility] GFR 36 mL/min [facility] AFR AMER GFR >60 [facility] Male GFR In terprentation 20-49 yrs >60 mL/min Normal 50-59 yrs >56 mL/min Normal 60-69 yrs >49 mL/min Normal 70-79yrs >42 mL/min Normal 80 and above >35 mL/min Normal Female GFR Interpretation 20-39 yrs >60 mL/min Normal 40-49 yrs >58 mL/min Normal 50-59 yrs >51 mL/min Normal 60-69 yrs >45 mL/min Normal 70-79 yrs >39 mL/min Normal 80 and above >32 mL/min Normal ID Date Data Source [id number] 03/30/2020 06:42:00 AM EST [facility] Name Value Range Interpretation Code Description Data Vivian rce(s) Supporting Document(s) CBC W/AUTOMATED DIFF [facility] COMPLETE BLOOD COUNT Leukocytes [#/volume] in Blood by Automated count 6.6 10^3/uL 4.2 - 1 1.0 [facility] Erythrocytes [#/volume] in Blood by Automated count 4.09 10^6/uL 4. 20 - 5.40 L [facility] Hemoglobin [Mass/volume] in Blood 12.7 g/dL 12.0 - 16.0 [facility] Hematocrit [Volume Fraction] of Blood by Automated count 38.4 % 3 7.0 - 47.0 [facility] Erythrocyte mean corpuscular volume [Entitic volume] by Auto mated count 93.9 fL 81.0 - 101 [facility] Erythrocyte mean corpuscular hemoglobin [Entitic mass] by Automated count 31.1 pg 27.0 - 34.0 [facility] Erythrocyte mean corpuscular hemoglobin concentration [Mass/volume] by Automated count 33.1 g/dL 31.0 - 36.0 [facility] Erythrocyte distribution width [Ratio] by Automated count 17.2 % 11.5 - 14.5 H [facility] Platelets [#/volume] in Blood by Automated count 140 10^3/uL 150 - 45 0 L [facility] Platelet mean volume [Entitic volume] in Blood by Automated count 12.3 fL 7.4 - 10.4 H [facility] Neutrophils/100 leukocytes in Blood by Automated count 65.3 % 37. 0 - 80.0 [facility] Lymphocytes/100 leukocytes in Blood by Manual count 17.0 % 25.0 - 40.0 L [facility] Monocytes/100 leukocytes in Blood by Automated count 11.6 % 3.0 - 8.0 H [facility] Eosinophils/100 leukocytes in Blood by Automated count 5.3 % 0.0 - 7.0 [facility] Basophils/100 leukocytes in Blood by Automated count 0.5 % 0.0 - 2.5 [facility] %IG 0.3 % 0.0 - 0.0 H [facility] %NRBC 0.0 % 0.0 - 0.0 [facility] al Neutrophils [#/volume] in Blood by Automated count 4.29 10^3/uL 2.00 - 6.90 [facility] Lymphocytes [#/volume] in Blood by Automated count 1.12 10^3/uL 0.60 - 3.40 [facility] Monocytes [#/volume] in Blood by Automated count 0.76 10^3/uL 0.00 - 0.90 [facility] Eosinophils [#/volume] in Blood by Automated count 0.35 10^3/uL 0.00 - 0.70 [facility] Basophils [#/volume] in Blood by Automated count 0.03 10^3/uL 0.00 - 0.20 [facility] #IG 0.02 10^3/uL 0.00 - 0.10 [facility] ospital #NRBC 0.00 10^3/uL 0.00 - 0.00 [facility] ospital MANUAL DIFF NOT INDICATED [facility] RBC MORPH NOT INDICATED [facility] spital ID Date Data Source [id number] 03/29/2020 08:52:00 AM EST [facility] Faxed to [facility] 03/29 @6012a. [facility] Name Value Range Interpretation Code Description Data Vivian rce(s) Supporting Document(s) Prothrombin Time (Patient) 19.3 s 9.6-12.3 Above high normal [facility] INR 1.9 0.9-1.1 Above high normal [facility] THE INR IS OPERATIONALLY DEFINED FOR ENA SH PLASMA FROMPATIENTS STABILIZED ON ORAL ANTICOAGULANTS.ROUTINE ANTICOAGULANT THERAPY 2.0-3.0RECURRENT SYSTEMIC EMBOLISM/HEART VALVE REPLACEMENT 2.5-3.5 ID Date Data Source [id number] 03/29/2020 06:05:00 AM EST [facility] (Bolivar Sotomayor MD) Name Value Range Interpretation Code Description Data Vivian rce(s) Supporting Document(s) Laboratory test finding (navigational concept) 19.3 s 1 1.0-15.5 Above high normal [facility] (Bolivar Sotomayor MD) TEST PERFORMED AT [facility] [address] [place] [address] CLIA# [id number] SEE SCANNED REPORT Laboratory test finding (navigational concept) 1.90 0 .93-1.23 Above high normal [facility] (Bolivar Sotomayor MD) \\BLDo\\INR INTERPRETATION\\BLDx\\ Therapeutic range for Coumadin and related oral anticoagulants. -International Normalized Ratio (INR): 2 .0 - 3.0 for Venous Thrombosis, Pulmonary Embolus, Tissue heart valves, Acute ME, Atrial Fibrillation, Valvular heart disease and recurrent Systemic Embolism. -International Normalized Ratio (INR): 2 .5 - 3.5 for Mechanical Prosthetic valve. ID Date Data Source [id number] 03/29/2020 06:05:00 AM EST [facility] (Bolivar Sotomayor MD) Name Value Range Interpretation Code Description Data Vivian rce(s) Supporting Document(s) Laboratory test finding (navigational concept) Laboratory test result [facility] (Bolivar Sotomayor MD) Is patient fasting? Y Laboratory test finding (navigational concept) 4.12 10^6/uL 4 .20-5.40 Below low normal [facility] (Bolivar Sotomayor MD) Is patient fasting? Y Laboratory test finding (navigational concept) 6.4 10^3/uL 4.2-11.0 [facility] (Bolivar Sotomayor MD) Is patient fasting? Y Laboratory test finding (navigational concept) 38.6 % 37.0-47.0 [facility] (Bolivar Sotomayor MD) Is patient fasting? Y Laboratory test finding (navigational concept) 12.7 g/dL 12.0-16.0 [facility] (Bolivar Sotomayor MD) Is patient fasting? Y Laboratory test finding (navigational concept) 93.7 fL 81.0-101 [facility] (Bolivar Sotomayor MD) Is patient fasting? Y Laboratory test finding (navigational concept) 30.8 pg 27.0-34.0 [facility] (Bolivar Sotomayor MD) Is patient fasting? Y Laboratory test finding (navigational concept) 32.9 g/dL 31.0-36.0 [facility] (Bolivar Sotomayor MD) Is patient fasting? Y Laboratory test finding (navigational concept) 17.0 % 1 1.5-14.5 Above high normal [facility] (Bolivar Sotomayor MD) Is patient fasting? Y Laboratory test finding (navigational concept) 150 10^3/uL 150-450 [facility] (Bolivar Sotomayor MD) Is patient fasting? Y Laboratory test finding (navigational concept) 12.8 fL 7 .4-10.4 Above high normal [facility] (Bolivar Sotomayor MD) Is patient fasting? Y Laboratory test finding (navigational concept) 17.0 % 2 5.0-40.0 Below low normal [facility] (Bolivar Sotomayor MD) Is patient fasting? Y Laboratory test finding (navigational concept) 64.6 % 37.0-80.0 [facility] (Bolivar Sotomayor MD) Is patient fasting? Y Laboratory test finding (navigational concept) 11.2 % 3.0-8.0 Above high normal [facility] (Bolivar Sotomayor MD) Is patient fasting? Y Laboratory test finding (navigational concept) 0.5 % 0.0-2.5 [facility] (Bolivar Sotomayor MD) Is patient fasting? Y Laboratory test finding (navigational concept) 6.4 % 0.0-7.0 [facility] (Bolivar Sotomayor MD) Is patient fasting? Y Laboratory test finding (navigational concept) 0.0 % 0.0-0.0 [facility] (Bolivar Sotomayor MD) Is patient fasting? Y Laboratory test finding (navigational concept) 0.3 % 0.0-0.0 Above high normal [facility] (Bolivar Sotomayor MD) Is patient fasting? Y Laboratory test finding (navigational concept) 4.15 10^3/uL 2.00-6.90 [facility] (Bolivar Sotomayor MD) Is patient fasting? Y Laboratory test finding (navigational concept) 1.09 10^3/uL 0.60-3.40 [facility] (Bolivar Sotomayor MD) Is patient fasting? Y Laboratory test finding (navigational concept) 0.72 10^3/uL 0.00-0.90 [facility] (Bolivar Sotomayor MD) Is patient fasting? Y Laboratory test finding (navigational concept) 0.41 10^3/uL 0.00-0.70 [facility] (Bolivar Sotomayor MD) Is patient fasting? Y Laboratory test finding (navigational concept) 0.03 10^3/uL 0.00-0.20 [facility] (Bolivar Sotomayor MD) Is patient fasting? Y Laboratory test finding (navigational concept) 0.02 10^3/uL 0.00-0.10 [facility] (Bolivar Sotomayor MD) Is patient fasting? Y Laboratory test finding (navigational concept) 0.00 10^3/uL 0.00-0.00 [facility] (Bolivar Sotomayor MD) Is patient fasting? Y Laboratory test finding (navigational concept) Laboratory test result [facility] (Bolivar Sotomayor MD) Is patient fasting? Y Laboratory test finding (navigational concept) Laboratory test result [facility] (Bolivar Sotomayor MD) Is patient fasting? Y ID Date Data Source [id number] 03/29/2020 06:05:00 AM EST [facility] (Bolivar Sotomayor MD) Name Value Range Interpretation Code Description Data Vivian rce(s) Supporting Document(s) Laboratory test finding (navigational concept) Laboratory test result [facility] (Bolivar Sotomayor MD) Is patient fasting? Y Laboratory test finding (navigational concept) 139 meq/L 134-153 [facility] (Bolivar Sotomayor MD) Is patient fasting? Y Laboratory test finding (navigational concept) 93 meq/L 98-107 Below low normal [facility] (Bolivar Sotomayor MD) Is patient fasting? Y Laboratory test finding (navigational concept) 4.3 meq/L 3.6-5.0 [facility] (Bolivar Sotomayor MD) Is patient fasting? Y Laboratory test finding (navigational concept) 42 meq/L 2 2-30 Above upper panic limits [facility] (Bolivar Sotomayor MD) Is patient fasting? Y Laboratory test finding (navigational concept) Laboratory test result [facility] (Bolivar Sotomayor MD) Is patient fasting? Y Laboratory test finding (navigational concept) Laboratory test result [facility] (Bolivar Sotomayor MD) Is patient fasting? Y Laboratory test finding (navigational concept) Laboratory test result [facility] (Bolivar Sotomayor MD) Is patient fasting? Y Laboratory test finding (navigational concept) 33 mg/dL 7-21 Above high normal [facility] (Bolivar Sotomayor MD) Is patient fasting? Y Laboratory test finding (navigational concept) 239 mg/dL 6 5-110 Above high normal [facility] (Bolivar Sotomayor MD) Is patient fasting? Y Laboratory test finding (navigational concept) 24 8-27 [facility] (Bolivar Sotomayor MD) Is patient fasting? Y Laboratory test finding (navigational concept) 1.4 mg/dL 0.7-1.5 [facility] (Bolivar Sotomayor MD) Is patient fasting? Y Laboratory test finding (navigational concept) 3.6 g/dL 3 .9-5.0 Below low normal [facility] (Bolivar Sotomayor MD) Is patient fasting? Y Laboratory test finding (navigational concept) 5.7 g/dL 6 .3-8.2 Below low normal [facility] (Bolivar Sotomayor MD) Is patient fasting? Y Laboratory test finding (navigational concept) 2.1 GM/DL 2 .4-3.2 Below low normal [facility] (Bolivar Sotomayor MD) Is patient fasting? Y Laboratory test finding (navigational concept) 1.7 0.8-2.0 [facility] (Bolivar Sotomayor MD) Is patient fasting? Y Laboratory test finding (navigational concept) 1.2 mg/dL 0.2-1.3 [facility] (Bolivar Sotomayor MD) Is patient fasting? Y Laboratory test finding (navigational concept) 9.8 mg/dL 8.4-10.2 [facility] (Bolivar Sotomayor MD) Is patient fasting? Y Laboratory test finding (navigational concept) 215 U/L 38-126 Above high normal [facility] (Bolivar Sotomayor MD) Is patient fasting? Y Laboratory test finding (navigational concept) 15 U/L 7-56 [facility] (Bolivar Sotomayor MD) Is patient fasting? Y Laboratory test finding (navigational concept) 21 U/L 5-40 [facility] (Bolivar Sotomayor MD) Is patient fasting? Y Laboratory test finding (navigational concept) 4.0 mmol/L 8 .0-16.0 Below low normal [facility] (Bolivar Sotomayor MD) Is patient fasting? Y Laboratory test finding (navigational concept) 80 yrs [facility] (Bolivar Sotomayor MD) Is patient fasting? Y Laboratory test finding (navigational concept) 38 mL/min [facility] (Bolivar Sotomayor MD) Is patient fasting? Y Laboratory test finding (navigational concept) Laboratory test result [facility] (Bolivar Sotomayor MD) Is patient fasting? Y ID Date Data Source [id number] 03/29/2020 10:16:00 AM [facility] Name Value Range Interpretation Code Description Data Vivian rce(s) Supporting Document(s) Prothrombin time (PT) 19.3 SECONDS 11.0 - 15.5 H [facility] [place] [address] CLIA# [id number] SEE SCANNED REPORT INR in Platelet poor plasma by Coagulation assay 1.90 0.93 - 1. 23 H [facility] \\BLDo\\INR INTERPRETATION\\BLDx\\ Therapeutic range for Coumadin and related oral anticoagulants. - International Normalized Ratio (INR): 2.0 - 3.0 for Venous Thrombosis, Pulmonary Embolus, Tissue heart valves, Acute ME, Atrial Fibrillation, Valvular heart disease and recurrent Systemic Embolism. -International Normalized Ratio (INR): 2.5 - 3.5 for Mechanical Prosthetic valve. ID Date Data Source [id number] 03/29/2020 07:40:00 AM [facility] Name Value Range Interpretation Code Description Data Vivian rce(s) Supporting Document(s) CBC W/AUTOMATED DIFF [facility] COMPLETE BLOOD COUNT Leukocytes [#/volume] in Blood by Automated count 6.4 10^3/uL 4.2 - 1 1.0 [facility] Erythrocytes [#/volume] in Blood by Automated count 4.12 10^6/uL 4. 20 - 5.40 L [facility] Hemoglobin [Mass/volume] in Blood 12.7 g/dL 12.0 - 16.0 [facility] Hematocrit [Volume Fraction] of Blood by Automated count 38.6 % 3 7.0 - 47.0 [facility] Erythrocyte mean corpuscular volume [Entitic volume] by Auto mated count 93.7 fL 81.0 - 101 [facility] Erythrocyte mean corpuscular hemoglobin [Entitic mass] by Automated count 30.8 pg 27.0 - 34.0 [facility] Erythrocyte mean corpuscular hemoglobin concentration [Mass/volume] by Automated count 32.9 g/dL 31.0 - 36.0 [facility] Erythrocyte distribution width [Ratio] by Automated count 17.0 % 11.5 - 14.5 H [facility] Platelets [#/volume] in Blood by Automated count 150 10^3/uL 150 - 45 0 [facility] Platelet mean volume [Entitic volume] in Blood by Automated count 12.8 fL 7.4 - 10.4 H [facility] Neutrophils/100 leukocytes in Blood by Automated count 64.6 % 37. 0 - 80.0 [facility] Lymphocytes/100 leukocytes in Blood by Manual count 17.0 % 25.0 - 40.0 L [facility] Monocytes/100 leukocytes in Blood by Automated count 11.2 % 3.0 - 8.0 H [facility] Eosinophils/100 leukocytes in Blood by Automated count 6.4 % 0.0 - 7.0 [facility] Basophils/100 leukocytes in Blood by Automated count 0.5 % 0.0 - 2.5 [facility] %IG 0.3 % 0.0 - 0.0 H [facility] %NRBC 0.0 % 0.0 - 0.0 [facility] al Neutrophils [#/volume] in Blood by Automated count 4.15 10^3/uL 2.00 - 6.90 [facility] Lymphocytes [#/volume] in Blood by Automated count 1.09 10^3/uL 0.60 - 3.40 [facility] Monocytes [#/volume] in Blood by Automated count 0.72 10^3/uL 0.00 - 0.90 [facility] Eosinophils [#/volume] in Blood by Automated count 0.41 10^3/uL 0.00 - 0.70 [facility] Basophils [#/volume] in Blood by Automated count 0.03 10^3/uL 0.00 - 0.20 [facility] #IG 0.02 10^3/uL 0.00 - 0.10 [facility] ospital #NRBC 0.00 10^3/uL 0.00 - 0.00 [facility] MANUAL DIFF NOT INDICATED [facility] RBC MORPH NOT INDICATED [facility] spital ID Date Data Source [id number] 03/29/2020 07:34:00 AM EST [facility] Name Value Range Interpretation Code Description Data Vivian rce(s) Supporting Document(s) COMPREHENSIVE METABOLIC PANEL [facility] COMPREHENSIVE METABOLIC PANEL Sodium [Moles/volume] in Serum or Plasma 139 mEq/L 134 - 153 [facility] Potassium [Moles/volume] in Serum or Plasma 4.3 mEq/L 3.6 - 5.0 [facility] Chloride [Moles/volume] in Serum or Plasma 93 mEq/L 98 - 107 L [facility] Carbon dioxide, total [Moles/volume] in Serum or Plasma 42 MEQ/L 22 - 30 HH [facility] CALL/ READ BACK OLIVER CARROLL [facility] BY: LARRY [facility] DATE/TIME 03.29.20 0735 [facility] Glucose [Mass/volume] in Serum or Plasma 239 MG/DL 65 - 110 H [facility] BUN 33 MG/DL 7 - 21 H [facility] Creatinine [Mass/volume] in Serum or Plasma 1.4 MG/DL 0.7 - 1.5 [facility] BUN/CREAT 24 8 - 27 [facility] Protein [Mass/volume] in Serum or Plasma 5.7 G/DL 6.3 - 8.2 L [facility] Albumin [Mass/volume] in Serum or Plasma 3.6 G/DL 3.9 - 5.0 L [facility] Globulin [Mass/volume] in Serum by calculation 2.1 GM/DL 2.4 - 3.2 L [facility] A/G RATIO 1.7 0.8 - 2.0 [facility] Calcium [Mass/volume] in Serum or Plasma 9.8 MG/DL 8.4 - 10.2 [facility] Bilirubin.total [Mass/volume] in Serum or Plasma 1.2 MG/DL 0.2 - 1.3 [facility] Alkaline phosphatase [Enzymatic activity/volume] in Serum or Plasma 215 U/L 38 - 126 H [facility] Aspartate aminotransferase [Enzymatic activity/volume] in Serum or Plasma 21 U/L 5 - 40 [facility] Alanine aminotransferase [Enzymatic activity/volume] in Seru m or Plasma 15 U/L 7 - 56 [facility] Anion gap 3 in Serum or Plasma 4.0 mmol/L 8.0 - 16.0 L [facility] AGE 80 yrs [facility] NON-AA GFR 38 mL/min [facility] AFR AMER GFR >60 [facility] Male GFR In terprentation 20-49 yrs >60 mL/min Normal 50-59 yrs >56 mL/min Normal 60-69 yrs >49 mL/min Normal 70-79yrs >42 mL/min Normal 80 and above >35 mL/min Normal Female GFR Interpretation 20-39 yrs >60 mL/min Normal 40-49 yrs >58 mL/min Normal 50-59 yrs >51 mL/min Normal 60-69 yrs >45 mL/min Normal 70-79 yrs >39 mL/min Normal 80 and above >32 mL/min Normal ID Date Data Source [id number] 03/28/2020 06:07:00 AM EST [facility] (Bolivar Sotomayor MD) Name Value Range Interpretation Code Description Data Vivian rce(s) Supporting Document(s) Lactate [Mass/volume] in Serum or Plasma 1.4 mmol/L 0.2-2.2 [facility] (Bolivar Sotomayor MD) ID Date Data Source [id number] 03/28/2020 06:07:00 AM EST [facility] (Bolivar Sotomayor MD) Name Value Range Interpretation Code Description Data Vivian rce(s) Supporting Document(s) Laboratory test finding (navigational concept) Laboratory test result [facility] (Bolivar Sotomayor MD) COMPREHENSIVE METABOLIC PANEL Laboratory test finding (navigational concept) 139 meq/L 134-153 [facility] (Bolivar Sotomayor MD) Laboratory test finding (navigational concept) 3.9 meq/L 3.6-5.0 [facility] (Bolivar Sotomayor MD) Laboratory test finding (navigational concept) 94 meq/L 98-107 Below low normal [facility] (Bolivar Sotomayor MD) Laboratory test finding (navigational concept) 201 mg/dL 6 5-110 Above high normal [facility] (Bolivar Sotomayor MD) Laboratory test finding (navigational concept) 40 meq/L 22-30 Above high normal [facility] (Bolivar Sotomayor MD) Laboratory test finding (navigational concept) 31 mg/dL 7-21 Above high normal [facility] (Bolivar Sotomayor MD) Laboratory test finding (navigational concept) 26 8-27 [facility] (Bolivar Sotomayor MD) Laboratory test finding (navigational concept) 1.2 mg/dL 0.7-1.5 [facility] (Bolivar Sotomayor MD) Laboratory test finding (navigational concept) 5.6 g/dL 6 .3-8.2 Below low normal [facility] (Bolivar Sotomayor MD) Laboratory test finding (navigational concept) 3.6 g/dL 3 .9-5.0 Below low normal [facility] (Bolivar Sotomayor MD) Laboratory test finding (navigational concept) 1.8 0.8-2.0 [facility] (Bolivar Sotomayor MD) Laboratory test finding (navigational concept) 2.0 GM/DL 2 .4-3.2 Below low normal [facility] (Bolivar Sotomayor MD) Laboratory test finding (navigational concept) 9.8 mg/dL 8.4-10.2 [facility] (Bolivar Sotomayor MD) Laboratory test finding (navigational concept) 1.1 mg/dL 0.2-1.3 [facility] (Bolivar Sotomayor MD) Laboratory test finding (navigational concept) 213 U/L 38-126 Above high normal [facility] (Bolivar Sotomayor MD) Laboratory test finding (navigational concept) 21 U/L 5-40 [facility] (Bolivar Sotomayor MD) Laboratory test finding (navigational concept) 14 U/L 7-56 [facility] (Bolivar Sotomayor MD) Laboratory test finding (navigational concept) 5.0 mmol/L 8 .0-16.0 Below low normal [facility] (Bolivar Sotomayor MD) Laboratory test finding (navigational concept) 80 yrs [facility] (Bolivar Sotomayor MD) Laboratory test finding (navigational concept) 46 mL/min [facility] (Bolivar Sotomayor MD) Laboratory test finding (navigational concept) Laboratory test result [facility] (Bolivar Sotomayor MD) Male GFR Interprentation 20-49 yrs >60 mL/min Normal 50-59 yrs >56 mL/min Normal 60-69 yrs >49 mL/min Normal 70-79yrs >42 mL/min Normal 80 and above >35 mL/min Normal Female GFR Interpretation 20-39 yrs >60 mL/min Normal 40-49 yrs >58 mL/min Normal 50-59 yrs >51 mL/min Normal 60-69 yrs >45 mL/min Normal 70-79 yrs >39 mL/min Normal 80 and above >32 mL/min Normal ID Date Data Source [id number] 03/28/2020 06:07:00 AM EST [facility] (Bolivar Sotomayor MD) Name Value Range Interpretation Code Description Data Vivian rce(s) Supporting Document(s) Laboratory test finding (navigational concept) 7.4 10^3/uL 4.2-11.0 [facility] (Bolivar Sotomayor MD) Laboratory test finding (navigational concept) Laboratory test result [facility] (Bolivar Sotomayor MD) COMPLETE BLOOD COUNT Laboratory test finding (navigational concept) 4.17 10^6/uL 4 .20-5.40 Below low normal [facility] (Bolivar Sotomayor MD) Laboratory test finding (navigational concept) 94.0 fL 81.0-101 [facility] (Bolivar Sotomayor MD) Laboratory test finding (navigational concept) 13.2 g/dL 12.0-16.0 [facility] (Bolivar Sotomayor MD) Laboratory test finding (navigational concept) 39.2 % 37.0-47.0 [facility] (Bolivar Sotomayor MD) Laboratory test finding (navigational concept) 31.7 pg 27.0-34.0 [facility] (Bolivar Sotomayor MD) Laboratory test finding (navigational concept) 33.7 g/dL 31.0-36.0 [facility] (Bolivar Sotomayor MD) Laboratory test finding (navigational concept) 17.2 % 1 1.5-14.5 Above high normal [facility] (Bolivar Sotomayor MD) Laboratory test finding (navigational concept) 12.1 fL 7 .4-10.4 Above high normal [facility] (Bolivar Sotomayor MD) Laboratory test finding (navigational concept) 148 10^3/uL 1 50-450 Below low normal [facility] (Bolivar Sotomayor MD) Laboratory test finding (navigational concept) 70.4 % 37.0-80.0 [facility] (Bolivar Sotomayor MD) Laboratory test finding (navigational concept) 14.2 % 2 5.0-40.0 Below low normal [facility] (Bolivar Sotomayor MD) Laboratory test finding (navigational concept) 8.6 % 3.0-8.0 Above high normal [facility] (Bolivar Sotomayor MD) Laboratory test finding (navigational concept) 0.4 % 0.0-2.5 [facility] (Bolivar Sotomayor MD) Laboratory test finding (navigational concept) 6.0 % 0.0-7.0 [facility] (Bolivar Sotomayor MD) Laboratory test finding (navigational concept) 0.0 % 0.0-0.0 [facility] (Bolivar Sotomayor MD) Laboratory test finding (navigational concept) 0.4 % 0.0-0.0 Above high normal [facility] (Bolivar Sotomayor MD) Laboratory test finding (navigational concept) 5.23 10^3/uL 2.00-6.90 [facility] (Bolivar Sotomayor MD) Laboratory test finding (navigational concept) 0.64 10^3/uL 0.00-0.90 [facility] (Bolivar Sotomayor MD) Laboratory test finding (navigational concept) 1.06 10^3/uL 0.60-3.40 [facility] (Bolivar Sotomayor MD) Laboratory test finding (navigational concept) 0.03 10^3/uL 0.00-0.20 [facility] (Bolivar Sotomayor MD) Laboratory test finding (navigational concept) 0.45 10^3/uL 0.00-0.70 [facility] (Bolivar Sotomayor MD) Laboratory test finding (navigational concept) 0.03 10^3/uL 0.00-0.10 [facility] (Bolivar Sotomayor MD) Laboratory test finding (navigational concept) 0.00 10^3/uL 0.00-0.00 [facility] (Bolivar Sotomayor MD) Laboratory test finding (navigational concept) Laboratory test result [facility] (Bolivar Sotomayor MD) Laboratory test finding (navigational concept) Laboratory test result [facility] (Bolivar Sotomayor MD) ID Date Data Source [id number] 03/28/2020 07:23:00 AM [facility] Name Value Range Interpretation Code Description Data Vivian rce(s) Supporting Document(s) Lactate [Moles/volume] in Serum or Plasma 1.4 MMOL/L 0.2 - 2.2 [facility] ID Date Data Source [id number] 03/28/2020 07:23:00 AM [facility] Name Value Range Interpretation Code Description Data Vivian rce(s) Supporting Document(s) COMPREHENSIVE METABOLIC PANEL [facility] COMPREHENSIVE METABOLIC PANEL Sodium [Moles/volume] in Serum or Plasma 139 mEq/L 134 - 153 [facility] Potassium [Moles/volume] in Serum or Plasma 3.9 mEq/L 3.6 - 5.0 [facility] Chloride [Moles/volume] in Serum or Plasma 94 mEq/L 98 - 107 L [facility] Carbon dioxide, total [Moles/volume] in Serum or Plasma 40 MEQ/L 22 - 30 H [facility] Glucose [Mass/volume] in Serum or Plasma 201 MG/DL 65 - 110 H [facility] BUN 31 MG/DL 7 - 21 H [facility] Creatinine [Mass/volume] in Serum or Plasma 1.2 MG/DL 0.7 - 1.5 [facility] BUN/CREAT 26 8 - 27 [facility] Protein [Mass/volume] in Serum or Plasma 5.6 G/DL 6.3 - 8.2 L [facility] Albumin [Mass/volume] in Serum or Plasma 3.6 G/DL 3.9 - 5.0 L [facility] Globulin [Mass/volume] in Serum by calculation 2.0 GM/DL 2.4 - 3.2 L [facility] A/G RATIO 1.8 0.8 - 2.0 [facility] Calcium [Mass/volume] in Serum or Plasma 9.8 MG/DL 8.4 - 10.2 [facility] Bilirubin.total [Mass/volume] in Serum or Plasma 1.1 MG/DL 0.2 - 1.3 [facility] Alkaline phosphatase [Enzymatic activity/volume] in Serum or Plasma 213 U/L 38 - 126 H [facility] Aspartate aminotransferase [Enzymatic activity/volume] in Serum or Plasma 21 U/L 5 - 40 [facility] Alanine aminotransferase [Enzymatic activity/volume] in Seru m or Plasma 14 U/L 7 - 56 [facility] Anion gap 3 in Serum or Plasma 5.0 mmol/L 8.0 - 16.0 L [facility] AGE 80 yrs [facility] NON-AA GFR 46 mL/min [facility] iggy AFR AMER GFR >60 [facility] Male GFR In terprentation 20-49 yrs >60 mL/min Normal 50-59 yrs >56 mL/min Normal 60-69 yrs >49 mL/min Normal 70-79yrs >42 mL/min Normal 80 and above >35 mL/min Normal Female GFR Interpretation 20-39 yrs >60 mL/min Normal 40-49 yrs >58 mL/min Normal 50-59 yrs >51 mL/min Normal 60-69 yrs >45 mL/min Normal 70-79 yrs >39 mL/min Normal 80 and above >32 mL/min Normal ID Date Data Source [id number] 03/28/2020 07:12:00 AM EST [facility] Name Value Range Interpretation Code Description Data Vivian rce(s) Supporting Document(s) CBC W/AUTOMATED DIFF [facility] COMPLETE BLOOD COUNT Leukocytes [#/volume] in Blood by Automated count 7.4 10^3/uL 4.2 - 1 1.0 [facility] Erythrocytes [#/volume] in Blood by Automated count 4.17 10^6/uL 4. 20 - 5.40 L [facility] Hemoglobin [Mass/volume] in Blood 13.2 g/dL 12.0 - 16.0 [facility] Hematocrit [Volume Fraction] of Blood by Automated count 39.2 % 3 7.0 - 47.0 [facility] Erythrocyte mean corpuscular volume [Entitic volume] by Auto mated count 94.0 fL 81.0 - 101 [facility] Erythrocyte mean corpuscular hemoglobin [Entitic mass] by Automated count 31.7 pg 27.0 - 34.0 [facility] Erythrocyte mean corpuscular hemoglobin concentration [Mass/volume] by Automated count 33.7 g/dL 31.0 - 36.0 [facility] Erythrocyte distribution width [Ratio] by Automated count 17.2 % 11.5 - 14.5 H [facility] Platelets [#/volume] in Blood by Automated count 148 10^3/uL 150 - 45 0 L [facility] Platelet mean volume [Entitic volume] in Blood by Automated count 12.1 fL 7.4 - 10.4 H [facility] Neutrophils/100 leukocytes in Blood by Automated count 70.4 % 37. 0 - 80.0 [facility] Lymphocytes/100 leukocytes in Blood by Manual count 14.2 % 25.0 - 40.0 L [facility] Monocytes/100 leukocytes in Blood by Automated count 8.6 % 3.0 - 8.0 H [facility] Eosinophils/100 leukocytes in Blood by Automated count 6.0 % 0.0 - 7.0 [facility] Basophils/100 leukocytes in Blood by Automated count 0.4 % 0.0 - 2.5 [facility] %IG 0.4 % 0.0 - 0.0 H [facility] %NRBC 0.0 % 0.0 - 0.0 [facility] Neutrophils [#/volume] in Blood by Automated count 5.23 10^3/uL 2.00 - 6.90 [facility] Lymphocytes [#/volume] in Blood by Automated count 1.06 10^3/uL 0.60 - 3.40 [facility] Monocytes [#/volume] in Blood by Automated count 0.64 10^3/uL 0.00 - 0.90 [facility] Eosinophils [#/volume] in Blood by Automated count 0.45 10^3/uL 0.00 - 0.70 [facility] Basophils [#/volume] in Blood by Automated count 0.03 10^3/uL 0.00 - 0.20 [facility] #IG 0.03 10^3/uL 0.00 - 0.10 [facility] #NRBC 0.00 10^3/uL 0.00 - 0.00 [facility] MANUAL DIFF NOT INDICATED [facility] RBC MORPH NOT INDICATED [facility] spital ID Date Data Source [id number] 03/26/2020 09:52:00 AM EST [facility] [address] [place] [address] PROGRESS NOTENAME: ANNA Medina ROOM#: [id number] OF : 1940 MR#: [id number] DATE: 03/25/20 OF SERVICE: 03/26/2020SUBJECTIVE:This patient came with congestive heart failure. She is feeling better. She is ambulating better.Dyspnea and orthopnea are better. ROS: Denies any dizziness, syncope, blurred vision, diplopia,headache. No orthopnea or paroxysmal nocturnal dyspnea. No bowel disturbance. No urinary problem.Ankle edema has improved.OBJECTIVE:On exam, moderately built. Blood pressure was 144/56. Head is normal. Neck is supple, neck veins notdistended. Heart is regular sinus rhythm, no murmur or gallop. Lungs clear. Abdomen soft. Extremitiesnormal.LABORATORY DATA:Lab tests showed hemoglobin 12.4, white count 8.4, hemoglobin A1c 8.8, INR 2.71, BUN 36,cr eatinine 1.4, potassium 4.7.ASSESSMENT/PLAN:History of heart failure, systolic, ejection fraction 40-50%. Patient is getting Lasix 40 mg daily. She isdiuresing better. Urine output was 1500 cc for the last 24 hours. She lost 2 pounds of weight.DD: Bolivar Sotomayor MD, PC 03/26/20 09:18DT: SSR 03/26/20 09:52DS: Bolivar Sotomayor MD, PC 03/27/20 09:20 1 Name Value Range Interpretation Code Description Data Vivian rce(s) Supporting Document(s) ID Date Data Source [id number] 03/25/2020 09:34:00 [place] [address] PROGRESS NOTENAME: ANNA Medina ROOM#: [id number] OF : 1940 MR#: [id number] DATE: 03/23/20 OF SERVICE: 03/25/2020SUBJECTIVE:Patient came with congestive heart failure, dyspnea. Dyspnea has improved. Orthopnea has improved.ROS: Does not notice any dizziness, syncope, blurred vision, diplopia, headache. There are no chills orfever. No cough or hemoptysis. No bowel disturbance. No urinary problem. Has some ankle edema.OBJECTIVE:On exam, moderately built. Blood pressure was 110/80. Head is normal. Neck is supple. Heart rate is70. Lungs mostly clear. Abdomen soft. Extremities have 1+ pitting edema.LABORATORY DATA:Lab tests showed white count 11.9, hemoglobin 13.1, INR 2.60, sodium 142, potassium 4.4, bloodsugar 330, BUN 32, creatinine 1.3.ASSESSMENT/PLAN:Patient has the following problems:1. Congestive heart failure. Patient was on Lasix 80 mg bid. Her blood pressure dropped to 100 systolic. The plan is to give Lasix only 40 mg daily IV.2. Uncontrolled diabetes. Blood sugar today is 330. She will take Levemir insulin 10 units daily. Plan to increase the Levemir insulin to 20 units at bedtime subcu and we will do the sliding scale coverage insulin protocol with regular insulin four times a day.3. A CAT scan of the chest is also being obtained for congestive heart failure. Patient's troponin is normal, there is no evidence of ME.4. We have add Diovan 40 mg daily as an ARBS inhibitor for congestive heart failure. See if a combination of Coreg and Diovan will work for the congestive heart failure. Ejection fraction is 40%.DD: Bolivar Sotomayor MD, PC 03/25/20 09:14DT: SSR 03/25/20 09:33DS: Bolivar Sotomayor MD, PC 03/27/20 09:20 [address] [place] [address] PROGRESS NOTENAME: ANNA Medina ROOM#: [id number] OF : 1940 MR#: [id number] DATE: 03/23/20 2 Name Value Range Interpretation Code Description Data Vivian rce(s) Supporting Document(s) ID Date Data Source [id number] 03/24/2020 09:11:00 [place] [address] PROGRESS NOTENAME: ANNA Medina ROOM#: [id number] OF : 1940 MR#: [id number] DATE: 03/23/20 OF SERVICE: 03/24/2020SUBJECTIVE:Patient came with congestive heart failure. Dyspnea and wheezing better today. ROS: There is nodizziness, syncope, blurred vision, diplopia, headache. She does have orthopnea and paroxysmalnocturnal dyspnea. No chills or fever. No cough or hemoptysis. No bowel disturbance. No urinaryproblem. Has ankle edema.OBJECTIVE:On exam, moderately built. Blood pressure is 150/60. Head is normal. Neck is supple, neck veins aredistended. Heart rate is 60. Lungs bibasilar rales. Abdomen soft. Extremities have 1+ edema.LABORATORY DATA:Lab tests showed sodium 140, potassium 3.4, BUN 27, creatinine 1.3, glucose 216.ASSESSMENT/PLAN: Patient has the following issues:1. Congestive heart failure. Plan to continue Lasix 80 bid.2. Hypokalemia, potassium 3.4. Add KCL 20 mEq bid. We will do a daily CMP panel.We will obtain an echo and see ejection fraction. Plan further therapy after evaluation of ejectionfraction.DD: Bolivar Sotomayor MD, PC 03/24/20 08:48DT: SSR 03/24/20 09:11DS: Bolivar Sotomayor MD, PC 03/27/20 09:20 1 Name Value Range Interpretation Code Description Data Vivian rce(s) Supporting Document(s) ID Date Data Source [id number] 03/27/2020 05:04:00 AM EST [facility] (Bolivar Sotomayor MD) Name Value Range Interpretation Code Description Data Vivian rce(s) Supporting Document(s) Laboratory test finding (navigational concept) Laboratory test result [facility] (Bolivar Sotomayor MD) COMPREHENSIVE METABOLIC PANEL Laboratory test finding (navigational concept) 142 meq/L 134-153 [facility] (Bolivar Sotomayor MD) Laboratory test finding (navigational concept) 5.0 meq/L 3.6-5.0 [facility] (Bolivar Sotomayor MD) Laboratory test finding (navigational concept) 41 meq/L 2 2-30 Above upper panic limits [facility] (Bolivar Sotomayor MD) Laboratory test finding (navigational concept) 96 meq/L 98-107 Below low normal [facility] (Bolivar Sotomayor MD) Laboratory test finding (navigational concept) Laboratory test result [facility] (Bolivar Sotomayor MD) Laboratory test finding (navigational concept) Laboratory test result [facility] (Bolivar Sotomayor MD) Laboratory test finding (navigational concept) Laboratory test result [facility] (Bolivar Sotomayor MD) Laboratory test finding (navigational concept) 180 mg/dL 6 5-110 Above high normal [facility] (Bolivar Sotomayor MD) Laboratory test finding (navigational concept) 1.3 mg/dL 0.7-1.5 [facility] (Bolivar Sotomayor MD) Laboratory test finding (navigational concept) 34 mg/dL 7-21 Above high normal [facility] (Bolivar Sotomayor MD) Laboratory test finding (navigational concept) 3.7 g/dL 3 .9-5.0 Below low normal [facility] (Bolivar Sotomayor MD) Laboratory test finding (navigational concept) 6.0 g/dL 6 .3-8.2 Below low normal [facility] (Bolivar Sotomayor MD) Laboratory test finding (navigational concept) 26 8-27 [facility] (Bolivar Sotomayor MD) Laboratory test finding (navigational concept) 2.3 GM/DL 2 .4-3.2 Below low normal [facility] (Bolivar Sotomayor MD) Laboratory test finding (navigational concept) 1.1 mg/dL 0.2-1.3 [facility] (Bolivar Sotomayor MD) Laboratory test finding (navigational concept) 1.6 0.8-2.0 [facility] (Bolivar Sotomayor MD) Laboratory test finding (navigational concept) 9.8 mg/dL 8.4-10.2 [facility] (Bolivar Sotomayor MD) Laboratory test finding (navigational concept) 237 U/L 38-126 Above high normal [facility] (Bolivar Sotomayor MD) Laboratory test finding (navigational concept) 20 U/L 5-40 [facility] (Bolivar Sotomayor MD) Laboratory test finding (navigational concept) 5.0 mmol/L 8 .0-16.0 Below low normal [facility] (Bolivar Sotomayor MD) Laboratory test finding (navigational concept) 16 U/L 7-56 [facility] (Bolivar Sotomayor MD) Laboratory test finding (navigational concept) Laboratory test result [facility] (Bolivar Sotomayor MD) Male GFR Interprentation 20-49 yrs >60 mL/min Normal 50-59 yrs >56 mL/min Normal 60-69 yrs >49 mL/min Normal 70-79yrs >42 mL/min Normal 80 and above >35 mL/min Normal Female GFR Interpretation 20-39 yrs >60 mL/min Normal 40-49 yrs >58 mL/min Normal 50-59 yrs >51 mL/min Normal 60-69 yrs >45 mL/min Normal 70-79 yrs >39 mL/min Normal 80 and above >32 mL/min Normal Laboratory test finding (navigational concept) 42 mL/min [facility] (Bolivar Sotomayor MD) Laboratory test finding (navigational concept) 80 yrs [facility] (Bolivar Sotomayor MD) ID Date Data Source [id number] 03/27/2020 05:04:00 AM EST [facility] (Bolivar Sotomayor MD) Name Value Range Interpretation Code Description Data Vivian rce(s) Supporting Document(s) Laboratory test finding (navigational concept) Laboratory test result [facility] (Bolivar Sotomayor MD) COMPLETE BLOOD COUNT Laboratory test finding (navigational concept) 6.9 10^3/uL 4.2-11.0 [facility] (Bolivar Sotomayor MD) Laboratory test finding (navigational concept) 4.24 10^6/uL 4.20-5.40 [facility] (Bolivar Sotomayor MD) Laboratory test finding (navigational concept) 40.5 % 37.0-47.0 [facility] (Bolivar Sotomayor MD) Laboratory test finding (navigational concept) 13.2 g/dL 12.0-16.0 [facility] (Bolivar Sotomayor MD) Laboratory test finding (navigational concept) 95.5 fL 81.0-101 [facility] (Bolivar Sotomayor MD) Laboratory test finding (navigational concept) 31.1 pg 27.0-34.0 [facility] (Bolivar Sotomayor MD) Laboratory test finding (navigational concept) 17.5 % 1 1.5-14.5 Above high normal [facility] (Bolivar Sotomayor MD) Laboratory test finding (navigational concept) 156 10^3/uL 150-450 [facility] (Bolivar Sotomayor MD) Laboratory test finding (navigational concept) 32.6 g/dL 31.0-36.0 [facility] (Bolivar Sotomayor MD) Laboratory test finding (navigational concept) 65.7 % 37.0-80.0 [facility] (Bolivar Sotomayor MD) Laboratory test finding (navigational concept) 12.3 fL 7 .4-10.4 Above high normal [facility] (Bolivar Sotomayor MD) Laboratory test finding (navigational concept) 15.5 % 2 5.0-40.0 Below low normal [facility] (Bolivar Sotomayor MD) Laboratory test finding (navigational concept) 11.6 % 3.0-8.0 Above high normal [facility] (Bolivar Sotomayor MD) Laboratory test finding (navigational concept) 6.5 % 0.0-7.0 [facility] (Bolivar Sotomayor MD) Laboratory test finding (navigational concept) 0.6 % 0.0-2.5 [facility] (Bolivar Sotomayor MD) Laboratory test finding (navigational concept) 0.0 % 0.0-0.0 [facility] (Bolivar Sotomayor MD) Laboratory test finding (navigational concept) 0.1 % 0.0-0.0 Above high normal [facility] (Bolivar Sotomayor MD) Laboratory test finding (navigational concept) 4.52 10^3/uL 2.00-6.90 [facility] (Bolivar Sotomayor MD) Laboratory test finding (navigational concept) 1.07 10^3/uL 0.60-3.40 [facility] (Bolivar Sotomayor MD) Laboratory test finding (navigational concept) 0.45 10^3/uL 0.00-0.70 [facility] (Bolivar Sotomayor MD) Laboratory test finding (navigational concept) 0.80 10^3/uL 0.00-0.90 [facility] (Bolivar Sotomayor MD) Laboratory test finding (navigational concept) 0.01 10^3/uL 0.00-0.10 [facility] (Bloivar Sotomayor MD) Laboratory test finding (navigational concept) 0.04 10^3/uL 0.00-0.20 [facility] (Bolivar Sotomayor MD) Laboratory test finding (navigational concept) 0.00 10^3/uL 0.00-0.00 [facility] (Bolivar Sotomayor MD) Laboratory test finding (navigational concept) Laboratory test result [facility] (Bolivar Sotomayor MD) Laboratory test finding (navigational concept) Laboratory test result [facility] (Bolivar Sotomayor MD) ID Date Data Source [id number] 03/27/2020 07:33:00 AM EST [facility] Name Value Range Interpretation Code Description Data Vivian rce(s) Supporting Document(s) COMPREHENSIVE METABOLIC PANEL [facility] COMPREHENSIVE METABOLIC PANEL Sodium [Moles/volume] in Serum or Plasma 142 mEq/L 134 - 153 [facility] Potassium [Moles/volume] in Serum or Plasma 5.0 mEq/L 3.6 - 5.0 [facility] Chloride [Moles/volume] in Serum or Plasma 96 mEq/L 98 - 107 L [facility] Carbon dioxide, total [Moles/volume] in Serum or Plasma 41 MEQ/L 22 - 30 HH [facility] CALL/ READ BACK ALEIDA ON [facility] BY: CM [facility] DATE/TIME 03/27/20 0729 [facility] spital Glucose [Mass/volume] in Serum or Plasma 180 MG/DL 65 - 110 H [facility] BUN 34 MG/DL 7 - 21 H [facility] Creatinine [Mass/volume] in Serum or Plasma 1.3 MG/DL 0.7 - 1.5 [facility] BUN/CREAT 26 8 - 27 [facility] Protein [Mass/volume] in Serum or Plasma 6.0 G/DL 6.3 - 8.2 L [facility] Albumin [Mass/volume] in Serum or Plasma 3.7 G/DL 3.9 - 5.0 L [facility] Globulin [Mass/volume] in Serum by calculation 2.3 GM/DL 2.4 - 3.2 L [facility] A/G RATIO 1.6 0.8 - 2.0 [facility] Calcium [Mass/volume] in Serum or Plasma 9.8 MG/DL 8.4 - 10.2 [facility] Bilirubin.total [Mass/volume] in Serum or Plasma 1.1 MG/DL 0.2 - 1.3 [facility] Alkaline phosphatase [Enzymatic activity/volume] in Serum or Plasma 237 U/L 38 - 126 H [facility] Aspartate aminotransferase [Enzymatic activity/volume] in Serum or Plasma 20 U/L 5 - 40 [facility] Alanine aminotransferase [Enzymatic activity/volume] in Seru m or Plasma 16 U/L 7 - 56 [facility] Anion gap 3 in Serum or Plasma 5.0 mmol/L 8.0 - 16.0 L [facility] AGE 80 yrs [facility] NON-AA GFR 42 mL/min [facility] iggy AFR AMER GFR >60 [facility] Male GFR In terprentation 20-49 yrs >60 mL/min Normal 50-59 yrs >56 mL/min Normal 60-69 yrs >49 mL/min Normal 70-79yrs >42 mL/min Normal 80 and above >35 mL/min Normal Female GFR Interpretation 20-39 yrs >60 mL/min Normal 40-49 yrs >58 mL/min Normal 50-59 yrs >51 mL/min Normal 60-69 yrs >45 mL/min Normal 70-79 yrs >39 mL/min Normal 80 and above >32 mL/min Normal ID Date Data Source [id number] 03/27/2020 06:33:00 AM EST [facility] Name Value Range Interpretation Code Description Data Vivian rce(s) Supporting Document(s) CBC W/AUTOMATED DIFF [facility] COMPLETE BLOOD COUNT Leukocytes [#/volume] in Blood by Automated count 6.9 10^3/uL 4.2 - 1 1.0 [facility] Erythrocytes [#/volume] in Blood by Automated count 4.24 10^6/uL 4. 20 - 5.40 [facility] Hemoglobin [Mass/volume] in Blood 13.2 g/dL 12.0 - 16.0 [facility] Hematocrit [Volume Fraction] of Blood by Automated count 40.5 % 3 7.0 - 47.0 [facility] Erythrocyte mean corpuscular volume [Entitic volume] by Auto mated count 95.5 fL 81.0 - 101 [facility] Erythrocyte mean corpuscular hemoglobin [Entitic mass] by Automated count 31.1 pg 27.0 - 34.0 [facility] Erythrocyte mean corpuscular hemoglobin concentration [Mass/volume] by Automated count 32.6 g/dL 31.0 - 36.0 [facility] Erythrocyte distribution width [Ratio] by Automated count 17.5 % 11.5 - 14.5 H [facility] Platelets [#/volume] in Blood by Automated count 156 10^3/uL 150 - 45 0 [facility] Platelet mean volume [Entitic volume] in Blood by Automated count 12.3 fL 7.4 - 10.4 H [facility] Neutrophils/100 leukocytes in Blood by Automated count 65.7 % 37. 0 - 80.0 [facility] Lymphocytes/100 leukocytes in Blood by Manual count 15.5 % 25.0 - 40.0 L [facility] Monocytes/100 leukocytes in Blood by Automated count 11.6 % 3.0 - 8.0 H [facility] Eosinophils/100 leukocytes in Blood by Automated count 6.5 % 0.0 - 7.0 [facility] Basophils/100 leukocytes in Blood by Automated count 0.6 % 0.0 - 2.5 [facility] %IG 0.1 % 0.0 - 0.0 [facility] %NRBC 0.0 % 0.0 - 0.0 [facility] Neutrophils [#/volume] in Blood by Automated count 4.52 10^3/uL 2.00 - 6.90 [facility] Lymphocytes [#/volume] in Blood by Automated count 1.07 10^3/uL 0.60 - 3.40 [facility] Monocytes [#/volume] in Blood by Automated count 0.80 10^3/uL 0.00 - 0.90 [facility] Eosinophils [#/volume] in Blood by Automated count 0.45 10^3/uL 0.00 - 0.70 [facility] Basophils [#/volume] in Blood by Automated count 0.04 10^3/uL 0.00 - 0.20 [facility] #IG 0.01 10^3/uL 0.00 - 0.10 [facility] #NRBC 0.00 10^3/uL 0.00 - 0.00 [facility] MANUAL DIFF NOT INDICATED [facility] RBC MORPH NOT INDICATED [facility] spital ID Date Data Source [id number] 03/26/2020 02:12:00 PM EST [facility] [address] [place] [address] PHONE: [phone] FAX: [phone] Name .................. : ANNA Markham Number.................. : [id number] ROOM. ................. : CCU1 Number ................... : [id number] Stay type ............. : I/P Discharge Date......... ... : Admit Date ......... : 03/25/20 Admit Phys .................... : MANUEL ALIZE Date of ....... : 1940 Family Phys ................... : NAUN MTZ Phone .................. : [phone] Age ................................ : 80 Film# .................. .:[id number] Sex ................................. : F Unsigned transcriptions are preliminary reports and do not represent a medical or legal document CT THORAX W/O CONTRAST [id number] COMPLETE:03/25/20 10:48 JEFFREY [id number] (REASON FOR CHEST: CHF CT OF THE CHEST WITHOUT CONTRAST: COMPARISON: 05/30/19 FINDINGS: There is cardiomegaly. No pericardial effusion is identified. There is moderate to severe calcified plaque present within the thoracic aorta without focal aneurysm. There is a stable enlarged right paratracheal node measuring about 1.3 cm. A small right- sided pleural effusion has developed. There is some mild to moderate infiltrate at the right lower lobe with some mild infiltrate/atelectasis at the right middle lobe and lingula. No pneumothorax is identified. There is no atelectasis at the left lower lobe. The airways are patent. Median sternotomy wires are present. At the upper abdomen, a small amount of free fluid is seen around the liver and spleen. A left-sided pacemaker is present with leads at the right atrium and ventricle. There is some severe spurring at the lower thoracic spine/upper lumbar spine. IMPRESSION: Cardiomegaly. Small right side pleural effusion. Stable enlarged right paratracheal lymph node. Moderate infiltrate at the right lower lobe. There is some mild infiltrate/atelectasis at the right middle lobe and lingula. Minimal atelectasis at the left lower lobe. Small amount of free fluid in the upper abdomen. While performing the above CT examination, radiation dose reduction was accomplished utilizing automated exposure control, adjusting of the mA and kV based on the patient's body size and/or the use of imperative reconstructive techniques. CT dose: 763.0 mGycm Electronically Reviewed and Signed By Sushil Carlton MD , 03/26/20 14:12, TDS Page 1 of 2 [facility] [address] [place] [address] [place] [address] PHONE: [phone] FAX: [phone] Name .................. : ANNA Carol Acct Number.................. : [id number] ROOM. ................. : CCU1 Number ................... : [id number] Stay type ............. : I/P Discharge Date......... ... : Admit Date ......... : 03/25/20 Admit Phys .................... : MANUEL HERRMANN Date of ....... : 1940 Family Phys ................... : NAUN MTZ Phone .................. : [phone] Age ................................ : 80 Film# .................. .:[id number] Sex ................................. : F Unsigned transcriptions are preliminary reports and do not represent a medical or legal document CT THORAX W/O CONTRAST [id number] COMPLETE:03/25/20 10:48 JEFFREY [id number] (REASON FOR CHEST: CHF Transcribe Initials: DZ , Transcribe Date: 03/26/20 00:55, Dictation Date: Copy for: 002 MSP Copy for: 710 MED REC Page 2 of 2 Name Value Range Interpretation Code Description Data Vivian rce(s) Supporting Document(s) ID Date Data Source [id number] 03/26/2020 05:12:00 AM EST [facility] (Bolivar Sotomayor MD) Name Value Range Interpretation Code Description Data Vivian rce(s) Supporting Document(s) Laboratory test finding (navigational concept) 2.71 0 .93-1.23 Above high normal [facility] (Bolivar Sotomayor MD) \\BLDo\\INR INTERPRETATION\\BLDx\\ Therapeutic range for Coumadin and related oral anticoagulants. -International Normalized Ratio (INR): 2 .0 - 3.0 for Venous Thrombosis, Pulmonary Embolus, Tissue heart valves, Acute ME, Atrial Fibrillation, Valvular heart disease and recurrent Systemic Embolism. -International Normalized Ratio (INR): 2 .5 - 3.5 for Mechanical Prosthetic valve. Laboratory test finding (navigational concept) 29.2 s 1 1.0-15.5 Above high normal [facility] (Bolivar Sotomayor MD) ID Date Data Source [id number] 03/26/2020 05:12:00 AM EST [facility] (Bolivar Sotomayor MD) Name Value Range Interpretation Code Description Data Vivian rce(s) Supporting Document(s) Laboratory test finding (navigational concept) Laboratory test result [facility] (Bolivar Sotomayor MD) COMPLETE BLOOD COUNT Laboratory test finding (navigational concept) 8.4 10^3/uL 4.2-11.0 [facility] (Bolivar Sotomayor MD) Laboratory test finding (navigational concept) 4.02 10^6/uL 4 .20-5.40 Below low normal [facility] (Bolivar Sotomayor MD) Laboratory test finding (navigational concept) 12.4 g/dL 12.0-16.0 [facility] (Bolivar Sotomayor MD) Laboratory test finding (navigational concept) 38.2 % 37.0-47.0 [facility] (Bolivar Sotomayor MD) Laboratory test finding (navigational concept) 30.8 pg 27.0-34.0 [facility] (Bolivar Sotomayor MD) Laboratory test finding (navigational concept) 95.0 fL 81.0-101 [facility] (Bolivar Sotomayor MD) Laboratory test finding (navigational concept) 32.5 g/dL 31.0-36.0 [facility] (Bolivar Sotomayor MD) Laboratory test finding (navigational concept) 17.4 % 1 1.5-14.5 Above high normal [facility] (Bolivar Sotomayor MD) Laboratory test finding (navigational concept) 160 10^3/uL 150-450 [facility] (Bolivar Sotomayor MD) Laboratory test finding (navigational concept) 67.7 % 37.0-80.0 [facility] (Bolivar Sotomayor MD) Laboratory test finding (navigational concept) 12.0 fL 7 .4-10.4 Above high normal [facility] (Bolivar Sotomayor MD) Laboratory test finding (navigational concept) 11.0 % 3.0-8.0 Above high normal [facility] (Bolivar Sotomayor MD) Laboratory test finding (navigational concept) 15.1 % 2 5.0-40.0 Below low normal [facility] (Bolivar Sotomayor MD) Laboratory test finding (navigational concept) 0.5 % 0.0-2.5 [facility] (Bolivar Sotomayor MD) Laboratory test finding (navigational concept) 5.5 % 0.0-7.0 [facility] (Bolivar Sotomayor MD) Laboratory test finding (navigational concept) 0.2 % 0.0-0.0 Above high normal [facility] (Bolivar Sotomayor MD) Laboratory test finding (navigational concept) 0.0 % 0.0-0.0 [facility] (Bolivar Sotomayor MD) Laboratory test finding (navigational concept) 0.92 10^3/uL 0 .00-0.90 Above high normal [facility] (Bolivar Sotomayor MD) Laboratory test finding (navigational concept) 5.68 10^3/uL 2.00-6.90 [facility] (Bolivar Sotomayor MD) Laboratory test finding (navigational concept) 1.27 10^3/uL 0.60-3.40 [facility] (Bolivar Sotomayor MD) Laboratory test finding (navigational concept) 0.46 10^3/uL 0.00-0.70 [facility] (Bolivar Sotomayor MD) Laboratory test finding (navigational concept) 0.04 10^3/uL 0.00-0.20 [facility] (Bolivar Sotomayor MD) Laboratory test finding (navigational concept) 0.00 10^3/uL 0.00-0.00 [facility] (Bolivar Sotomayor MD) Laboratory test finding (navigational concept) 0.02 10^3/uL 0.00-0.10 [facility] (Bolivar Sotomayor MD) Laboratory test finding (navigational concept) Laboratory test result [facility] (Bolivar Sotomayor MD) Laboratory test finding (navigational concept) Laboratory test result [facility] (Bolivar Sotomayor MD) ID Date Data Source [id number] 03/26/2020 05:12:00 AM EST [facility] (Bolivar Sotomayor MD) Name Value Range Interpretation Code Description Data Vivian rce(s) Supporting Document(s) Laboratory test finding (navigational concept) 140 meq/L 134-153 [facility] (Bolivar Sotomayor MD) Laboratory test finding (navigational concept) Laboratory test result [facility] (Bolivar Sotomayor MD) COMPREHENSIVE METABOLIC PANEL Laboratory test finding (navigational concept) 98 meq/L 98-107 [facility] (Bolivar Sotomayor MD) Laboratory test finding (navigational concept) 4.7 meq/L 3.6-5.0 [facility] (Bolivar Sotomayor MD) Laboratory test finding (navigational concept) 37 meq/L 22-30 Above high normal [facility] (Bolivar Sotomayor MD) Laboratory test finding (navigational concept) 198 mg/dL 6 5-110 Above high normal [facility] (Bolivar Sotomayor MD) Laboratory test finding (navigational concept) 36 mg/dL 7-21 Above high normal [facility] (Bolivar Sotomayor MD) Laboratory test finding (navigational concept) 1.4 mg/dL 0.7-1.5 [facility] (Bolivar Sotomayor MD) Laboratory test finding (navigational concept) 26 8-27 [facility] (Bolivar Sotomayor MD) Laboratory test finding (navigational concept) 5.8 g/dL 6 .3-8.2 Below low normal [facility] (Bolivar Sotomayor MD) Laboratory test finding (navigational concept) 3.6 g/dL 3 .9-5.0 Below low normal [facility] (Bolivar Sotomayor MD) Laboratory test finding (navigational concept) 2.2 GM/DL 2 .4-3.2 Below low normal [facility] (Bolivar Sotomayor MD) Laboratory test finding (navigational concept) 9.6 mg/dL 8.4-10.2 [facility] (Bolivar Sotomayor MD) Laboratory test finding (navigational concept) 1.6 0.8-2.0 [facility] (Bolivar Sotomayor MD) Laboratory test finding (navigational concept) 1.0 mg/dL 0.2-1.3 [facility] (Bolivar Sotomayor MD) Laboratory test finding (navigational concept) 231 U/L 38-126 Above high normal [facility] (Bolivar Sotomayor MD) Laboratory test finding (navigational concept) 23 U/L 5-40 [facility] (Bolivar Sotomayor MD) Laboratory test finding (navigational concept) 5.0 mmol/L 8 .0-16.0 Below low normal [facility] (Bolivar Sotomayor MD) Laboratory test finding (navigational concept) 16 U/L 7-56 [facility] (Bolivar Sotomayor MD) Laboratory test finding (navigational concept) 38 mL/min [facility] (Bolivar Sotomayor MD) Laboratory test finding (navigational concept) 80 yrs [facility] (Bolivar Sotomayor MD) Laboratory test finding (navigational concept) Laboratory test result [facility] (Bolivar Sotomayor MD) Male GFR Interprentation 20-49 yrs >60 mL/min Normal 50-59 yrs >56 mL/min Normal 60-69 yrs >49 mL/min Normal 70-79yrs >42 mL/min Normal 80 and above >35 mL/min Normal Female GFR Interpretation 20-39 yrs >60 mL/min Normal 40-49 yrs >58 mL/min Normal 50-59 yrs >51 mL/min Normal 60-69 yrs >45 mL/min Normal 70-79 yrs >39 mL/min Normal 80 and above >32 mL/min Normal ID Date Data Source [id number] 03/26/2020 05:12:00 AM EST [facility] (Bolivar Sotomayor MD) Name Value Range Interpretation Code Description Data Vivian rce(s) Supporting Document(s) Natriuretic peptide.B prohormone N-Terminal [Mass/volu me] in Serum or Plasma 4552 pg/mL 0-450 Above high normal [facility] (Bolivar Sotomayor MD) ID Date Data Source [id number] 03/26/2020 05:12:00 AM EST [facility] (Bolivar Sotomayor MD) Name Value Range Interpretation Code Description Data Vivian rce(s) Supporting Document(s) Laboratory test finding (navigational concept) Laboratory test result [facility] (Bolivar Sotomayor MD) LIPID PANEL Laboratory test finding (navigational concept) 99 mg/dL 1 31-200 Below low normal [facility] (Bolivar Sotomayor MD) Laboratory test finding (navigational concept) 110 mg/dL 35-160 [facility] (Bolivar Sotomayor MD) Laboratory test finding (navigational concept) 31 mg/dL 29-86 [facility] (Bolivar Sotomayor MD) Laboratory test finding (navigational concept) 3.2 3.2-4.4 Below low normal [facility] (Bolivar Sotomayor MD) Laboratory test finding (navigational concept) 51 mg/dL 65-175 Below low normal [facility] (Bolivar Sotomayor MD) Laboratory test finding (navigational concept) 1.65 1.47-3.22 [facility] (Bolivar Sotomayor MD) CVE RISK CHOL/HDL LDL/HDL MEN: 1/2 AVERAGE 3.43 1.00 AVERAGE 4.97 3.55 2X AVERAGE 9.55 6.25 3X AVERAGE 23.99 7.99 WOMEN: 1/2 AVERAGE 3.27 1.47 AVERAGE 4.44 3.22 2X AVERAGE 7.05 5.03 3X AVERAGE 11.04 6.14 ID Date Data Source [id number] 03/26/2020 05:12:00 AM EST [facility] (Bolivar Sotomayor MD) Name Value Range Interpretation Code Description Data Vivian rce(s) Supporting Document(s) Hemoglobin A1c/Hemoglobin.total in Blood 8.8 % 4.4-6.1 Above high normal [facility] (Bolivar Sotomayor MD) {A1] {HB] ID Date Data Source [id number] 03/26/2020 08:06:00 AM [facility] Name Value Range Interpretation Code Description Data Vivian rce(s) Supporting Document(s) Hemoglobin A1c/Hemoglobin.total in Blood 8.8 % 4.4 - 6.1 H [facility] {A1]{HB] ID Date Data Source [id number] 03/26/2020 08:06:00 AM [facility] Name Value Range Interpretation Code Description Data Vivian rce(s) Supporting Document(s) CVE PANEL [facility] LIPID PANEL Cholesterol [Mass/volume] in Serum or Plasma 99 MG/DL 131 - 200 L [facility] Deprecated Triglyceride [Mass/volume] in Serum or Plasma 110 MG/DL 3 5 - 160 [facility] HDL 31 MG/DL 29 - 86 [facility] Cholesterol in LDL [Mass/volume] in Serum or Plasma by Direc t assay 51 mg/dL 65 - 175 L [facility] Cholesterol.total/Cholesterol in HDL [Mass Ratio] in Serum o r Plasma 3.2 3.2 - 4.4 L [facility] LDL/HDL 1.65 1.47 - 3.22 [facility] ital CVE RISK CHOL/HDL LDL/HDLMEN: 1/2 AVERAGE 3.43 1.00 AVERAGE 4.97 3.55 2X AVERAGE 9.55 6.25 3X AVERAGE 23.99 7.99WOMEN: 1/2 AVERAGE 3.27 1.47 AVERAGE 4.44 3.22 2X AVERAGE 7.05 5.03 3X AVERAGE 11.04 6.14 ID Date Data Source [id number] 03/26/2020 07:15:00 AM [facility] Name Value Range Interpretation Code Description Data Vivian rce(s) Supporting Document(s) COMPREHENSIVE METABOLIC PANEL [facility] COMPREHENSIVE METABOLIC PANEL Sodium [Moles/volume] in Serum or Plasma 140 mEq/L 134 - 153 [facility] Potassium [Moles/volume] in Serum or Plasma 4.7 mEq/L 3.6 - 5.0 [facility] Chloride [Moles/volume] in Serum or Plasma 98 mEq/L 98 - 107 [facility] Carbon dioxide, total [Moles/volume] in Serum or Plasma 37 MEQ/L 22 - 30 H [facility] Glucose [Mass/volume] in Serum or Plasma 198 MG/DL 65 - 110 H [facility] BUN 36 MG/DL 7 - 21 H [facility] Creatinine [Mass/volume] in Serum or Plasma 1.4 MG/DL 0.7 - 1.5 [facility] BUN/CREAT 26 8 - 27 [facility] Protein [Mass/volume] in Serum or Plasma 5.8 G/DL 6.3 - 8.2 L [facility] Albumin [Mass/volume] in Serum or Plasma 3.6 G/DL 3.9 - 5.0 L [facility] Globulin [Mass/volume] in Serum by calculation 2.2 GM/DL 2.4 - 3.2 L [facility] A/G RATIO 1.6 0.8 - 2.0 [facility] Calcium [Mass/volume] in Serum or Plasma 9.6 MG/DL 8.4 - 10.2 [facility] Bilirubin.total [Mass/volume] in Serum or Plasma 1.0 MG/DL 0.2 - 1.3 [facility] Alkaline phosphatase [Enzymatic activity/volume] in Serum or Plasma 231 U/L 38 - 126 H [facility] Aspartate aminotransferase [Enzymatic activity/volume] in Serum or Plasma 23 U/L 5 - 40 [facility] Alanine aminotransferase [Enzymatic activity/volume] in Seru m or Plasma 16 U/L 7 - 56 [facility] Anion gap 3 in Serum or Plasma 5.0 mmol/L 8.0 - 16.0 L [facility] AGE 80 yrs [facility] NON-AA GFR 38 mL/min [facility] ig[facility] AFR AMER GFR >60 [facility] Male GFR In terprentation 20-49 yrs >60 mL/min Normal 50-59 yrs >56 mL/min Normal 60-69 yrs >49 mL/min Normal 70-79yrs >42 mL/min Normal 80 and above >35 mL/min Normal Female GFR Interpretation 20-39 yrs >60 mL/min Normal 40-49 yrs >58 mL/min Normal 50-59 yrs >51 mL/min Normal 60-69 yrs >45 mL/min Normal 70-79 yrs >39 mL/min Normal 80 and above >32 mL/min Normal ID Date Data Source [id number] 03/26/2020 07:15:00 AM [facility] Name Value Range Interpretation Code Description Data Vivian rce(s) Supporting Document(s) BNP 4552 PG/ML 0 - 450 H [facility] ID Date Data Source [id number] 03/26/2020 07:07:00 AM [facility] Name Value Range Interpretation Code Description Data Vivian rce(s) Supporting Document(s) CBC W/AUTOMATED DIFF [facility] COMPLETE BLOOD COUNT Leukocytes [#/volume] in Blood by Automated count 8.4 10^3/uL 4.2 - 1 1.0 [facility] Erythrocytes [#/volume] in Blood by Automated count 4.02 10^6/uL 4. 20 - 5.40 L [facility] Hemoglobin [Mass/volume] in Blood 12.4 g/dL 12.0 - 16.0 [facility] Hematocrit [Volume Fraction] of Blood by Automated count 38.2 % 3 7.0 - 47.0 [facility] Erythrocyte mean corpuscular volume [Entitic volume] by Auto mated count 95.0 fL 81.0 - 101 [facility] Erythrocyte mean corpuscular hemoglobin [Entitic mass] by Automated count 30.8 pg 27.0 - 34.0 [facility] Erythrocyte mean corpuscular hemoglobin concentration [Mass/volume] by Automated count 32.5 g/dL 31.0 - 36.0 [facility] Erythrocyte distribution width [Ratio] by Automated count 17.4 % 11.5 - 14.5 H [facility] Platelets [#/volume] in Blood by Automated count 160 10^3/uL 150 - 45 0 [facility] Platelet mean volume [Entitic volume] in Blood by Automated count 12.0 fL 7.4 - 10.4 H [facility] Neutrophils/100 leukocytes in Blood by Automated count 67.7 % 37. 0 - 80.0 [facility] Lymphocytes/100 leukocytes in Blood by Manual count 15.1 % 25.0 - 40.0 L [facility] Monocytes/100 leukocytes in Blood by Automated count 11.0 % 3.0 - 8.0 H [facility] Eosinophils/100 leukocytes in Blood by Automated count 5.5 % 0.0 - 7.0 [facility] Basophils/100 leukocytes in Blood by Automated count 0.5 % 0.0 - 2.5 [facility] %IG 0.2 % 0.0 - 0.0 H [facility] %NRBC 0.0 % 0.0 - 0.0 [facility] al Neutrophils [#/volume] in Blood by Automated count 5.68 10^3/uL 2.00 - 6.90 [facility] Lymphocytes [#/volume] in Blood by Automated count 1.27 10^3/uL 0.60 - 3.40 [facility] Monocytes [#/volume] in Blood by Automated count 0.92 10^3/uL 0.00 - 0.90 H [facility] Eosinophils [#/volume] in Blood by Automated count 0.46 10^3/uL 0.00 - 0.70 [facility] Basophils [#/volume] in Blood by Automated count 0.04 10^3/uL 0.00 - 0.20 [facility] #IG 0.02 10^3/uL 0.00 - 0.10 [facility] ospital #NRBC 0.00 10^3/uL 0.00 - 0.00 [facility] ospital MANUAL DIFF NOT INDICATED [facility] RBC MORPH NOT INDICATED [facility] ID Date Data Source [id number] 03/26/2020 07:03:00 AM EST [facility] Name Value Range Interpretation Code Description Data Vivian rce(s) Supporting Document(s) Prothrombin time (PT) 29.2 SECONDS 11.0 - 15.5 H [facility] INR in Platelet poor plasma by Coagulation assay 2.71 0.93 - 1. 23 H [facility] \\BLDo\\INR INTERPRETATION\\BLDx\\ Therapeutic range for Coumadin and related oral anticoagulants. - International Normalized Ratio (INR): 2.0 - 3.0 for Venous Thrombosis, Pulmonary Embolus, Tissue heart valves, Acute ME, Atrial Fibrillation, Valvular heart disease and recurrent Systemic Embolism. -International Normalized Ratio (INR): 2.5 - 3.5 for Mechanical Prosthetic valve. ID Date Data Source [id number] 03/25/2020 05:10:00 AM EST [facility] (Bolivar Sotomayor MD) Name Value Range Interpretation Code Description Data Vivian rce(s) Supporting Document(s) Laboratory test finding (navigational concept) Laboratory test result [facility] (Bolivar Sotomayor MD) COMPREHENSIVE METABOLIC PANEL Laboratory test finding (navigational concept) 142 meq/L 134-153 [facility] (Bolivar Sotomayor MD) Laboratory test finding (navigational concept) 4.4 meq/L 3.6-5.0 [facility] (Bolivar Sotomayor MD) Laboratory test finding (navigational concept) 97 meq/L 98-107 Below low normal [facility] (Bolivar Sotomayor MD) Laboratory test finding (navigational concept) 39 meq/L 22-30 Above high normal [facility] (Bolivar Sotomayor MD) Laboratory test finding (navigational concept) 330 mg/dL 6 5-110 Above high normal [facility] (Bolivar Sotomayor MD) Laboratory test finding (navigational concept) 32 mg/dL 7-21 Above high normal [facility] (Bolivar Sotomayor MD) Laboratory test finding (navigational concept) 1.3 mg/dL 0.7-1.5 [facility] (Bolivar Sotomayor MD) Laboratory test finding (navigational concept) 25 8-27 [facility] (Bolivar Sotomayor MD) Laboratory test finding (navigational concept) 6.2 g/dL 6 .3-8.2 Below low normal [facility] (Bolivar Sotomayor MD) Laboratory test finding (navigational concept) 4.1 g/dL 3.9-5.0 [facility] (Bolivar Sotomayor MD) Laboratory test finding (navigational concept) 2.1 GM/DL 2 .4-3.2 Below low normal [facility] (Bolivar Sotomayor MD) Laboratory test finding (navigational concept) 2.0 0.8-2.0 [facility] (Bolivar Sotomayor MD) Laboratory test finding (navigational concept) 9.8 mg/dL 8.4-10.2 [facility] (Bolivar Sotomayor MD) Laboratory test finding (navigational concept) 1.1 mg/dL 0.2-1.3 [facility] (Bolivar Sotomayor MD) Laboratory test finding (navigational concept) 244 U/L 38-126 Above high normal [facility] (Bolivar Sotomayor MD) Laboratory test finding (navigational concept) 27 U/L 5-40 [facility] (Bolivar Sotomayor MD) Laboratory test finding (navigational concept) 17 U/L 7-56 [facility] (Bolivar Sotomayor MD) Laboratory test finding (navigational concept) 6.0 mmol/L 8 .0-16.0 Below low normal [facility] (Bolivar Sotomayor MD) Laboratory test finding (navigational concept) 80 yrs [facility] (Bolivar Sotomayor MD) Laboratory test finding (navigational concept) 42 mL/min [facility] (Bolivar Sotomayor MD) Laboratory test finding (navigational concept) Laboratory test result [facility] (Bolivar Sotomayor MD) Male GFR Interprentation 20-49 yrs >60 mL/min Normal 50-59 yrs >56 mL/min Normal 60-69 yrs >49 mL/min Normal 70-79yrs >42 mL/min Normal 80 and above >35 mL/min Normal Female GFR Interpretation 20-39 yrs >60 mL/min Normal 40-49 yrs >58 mL/min Normal 50-59 yrs >51 mL/min Normal 60-69 yrs >45 mL/min Normal 70-79 yrs >39 mL/min Normal 80 and above >32 mL/min Normal ID Date Data Source [id number] 03/25/2020 05:10:00 AM EST [facility] (Bolivar Sotomayor MD) Name Value Range Interpretation Code Description Data Vivian rce(s) Supporting Document(s) Laboratory test finding (navigational concept) Laboratory test result [facility] (Bolivar Sotomayor MD) COMPLETE BLOOD COUNT Laboratory test finding (navigational concept) 11.9 10^3/uL 4 .2-11.0 Above high normal [facility] (Bolivar Sotomayor MD) Laboratory test finding (navigational concept) 4.18 10^6/uL 4 .20-5.40 Below low normal [facility] (Bolivar Sotomayor MD) Laboratory test finding (navigational concept) 39.7 % 37.0-47.0 [facility] (Bolivar Sotomayor MD) Laboratory test finding (navigational concept) 13.1 g/dL 12.0-16.0 [facility] (Bolivar Sotomayor MD) Laboratory test finding (navigational concept) 95.0 fL 81.0-101 [facility] (Bolivar Sotomayor MD) Laboratory test finding (navigational concept) 31.3 pg 27.0-34.0 [facility] (Bolivar Sotomayor MD) Laboratory test finding (navigational concept) 17.5 % 1 1.5-14.5 Above high normal [facility] (Bolivar Sotomayor MD) Laboratory test finding (navigational concept) 33.0 g/dL 31.0-36.0 [facility] (Bolivar Sotomayor MD) Laboratory test finding (navigational concept) 175 10^3/uL 150-450 [facility] (Bolivar Sotomayor MD) Laboratory test finding (navigational concept) 12.5 fL 7 .4-10.4 Above high normal [facility] (Bloivar Sotomayor MD) Laboratory test finding (navigational concept) 84.6 % 3 7.0-80.0 Above high normal [facility] (Bolivar Sotomayor MD) Laboratory test finding (navigational concept) 7.4 % 25.0-40 .0 Below low normal [facility] (Bolivar Sotomayor MD) Laboratory test finding (navigational concept) 0.0 % 0.0-7.0 [facility] (Bolivar Sotomayor MD) Laboratory test finding (navigational concept) 7.6 % 3.0-8.0 [facility] (Bolivar Sotomayor MD) Laboratory test finding (navigational concept) 0.3 % 0.0-0.0 Above high normal [facility] (Bolivar Sotomayor MD) Laboratory test finding (navigational concept) 0.1 % 0.0-2.5 [facility] (Bolivar Sotomayor MD) Laboratory test finding (navigational concept) 0.0 % 0.0-0.0 [facility] (Bolivar Sotomayor MD) Laboratory test finding (navigational concept) 10.08 10^3/uL 2 .00-6.90 Above high normal [facility] (Bolivar Sotomayor MD) Laboratory test finding (navigational concept) 0.88 10^3/uL 0.60-3.40 [facility] (Bolivar Sotomayor MD) Laboratory test finding (navigational concept) 0.90 10^3/uL 0.00-0.90 [facility] (Bolivar Sotomayor MD) Laboratory test finding (navigational concept) 0.00 10^3/uL 0.00-0.70 [facility] (Bolivar Sotomayor MD) Laboratory test finding (navigational concept) 0.01 10^3/uL 0.00-0.20 [facility] (Bolivar Sotomayor MD) Laboratory test finding (navigational concept) 0.00 10^3/uL 0.00-0.00 [facility] (Bolivar Sotomayor MD) Laboratory test finding (navigational concept) 0.04 10^3/uL 0.00-0.10 [facility] (Bolivar Sotomayor MD) Laboratory test finding (navigational concept) Laboratory test result [facility] (Bolivar Sotomayor MD) Laboratory test finding (navigational concept) Laboratory test result [facility] (Bolivar Sotomayor MD) ID Date Data Source [id number] 03/25/2020 05:10:00 AM EST [facility] (Bolivar Sotomayor MD) Name Value Range Interpretation Code Description Data Vivian rce(s) Supporting Document(s) Laboratory test finding (navigational concept) 28.2 s 1 1.0-15.5 Above high normal [facility] (Bolivar Sotomayor MD) Laboratory test finding (navigational concept) 2.60 0 .93-1.23 Above high normal [facility] (Bolivar Sotomayor MD) \\BLDo\\INR INTERPRETATION\\BLDx\\ Therapeutic range for Coumadin and related oral anticoagulants. -International Normalized Ratio (INR): 2 .0 - 3.0 for Venous Thrombosis, Pulmonary Embolus, Tissue heart valves, Acute ME, Atrial Fibrillation, Valvular heart disease and recurrent Systemic Embolism. -International Normalized Ratio (INR): 2 .5 - 3.5 for Mechanical Prosthetic valve. ID Date Data Source [id number] 03/25/2020 07:31:00 AM EST [facility] Name Value Range Interpretation Code Description Data Vivian rce(s) Supporting Document(s) CBC W/AUTOMATED DIFF [facility] COMPLETE BLOOD COUNT Leukocytes [#/volume] in Blood by Automated count 11.9 10^3/uL 4.2 - 11.0 H [facility] Erythrocytes [#/volume] in Blood by Automated count 4.18 10^6/uL 4. 20 - 5.40 L [facility] Hemoglobin [Mass/volume] in Blood 13.1 g/dL 12.0 - 16.0 [facility] Hematocrit [Volume Fraction] of Blood by Automated count 39.7 % 3 7.0 - 47.0 [facility] Erythrocyte mean corpuscular volume [Entitic volume] by Auto mated count 95.0 fL 81.0 - 101 [facility] Erythrocyte mean corpuscular hemoglobin [Entitic mass] by Automated count 31.3 pg 27.0 - 34.0 [facility] Erythrocyte mean corpuscular hemoglobin concentration [Mass/volume] by Automated count 33.0 g/dL 31.0 - 36.0 [facility] Erythrocyte distribution width [Ratio] by Automated count 17.5 % 11.5 - 14.5 H [facility] Platelets [#/volume] in Blood by Automated count 175 10^3/uL 150 - 45 0 [facility] Platelet mean volume [Entitic volume] in Blood by Automated count 12.5 fL 7.4 - 10.4 H [facility] Neutrophils/100 leukocytes in Blood by Automated count 84.6 % 37. 0 - 80.0 H [facility] Lymphocytes/100 leukocytes in Blood by Manual count 7.4 % 25.0 - 40.0 L [facility] Monocytes/100 leukocytes in Blood by Automated count 7.6 % 3.0 - 8.0 [facility] Eosinophils/100 leukocytes in Blood by Automated count 0.0 % 0.0 - 7.0 [facility] Basophils/100 leukocytes in Blood by Automated count 0.1 % 0.0 - 2.5 [facility] %IG 0.3 % 0.0 - 0.0 H [facility] al %NRBC 0.0 % 0.0 - 0.0 [facility] al Neutrophils [#/volume] in Blood by Automated count 10.08 10^3/uL 2. 00 - 6.90 H [facility] Lymphocytes [#/volume] in Blood by Automated count 0.88 10^3/uL 0.60 - 3.40 [facility] Monocytes [#/volume] in Blood by Automated count 0.90 10^3/uL 0.00 - 0.90 [facility] Eosinophils [#/volume] in Blood by Automated count 0.00 10^3/uL 0.00 - 0.70 [facility] Basophils [#/volume] in Blood by Automated count 0.01 10^3/uL 0.00 - 0.20 [facility] #IG 0.04 10^3/uL 0.00 - 0.10 [facility] #NRBC 0.00 10^3/uL 0.00 - 0.00 [facility] MANUAL DIFF NOT INDICATED [facility] RBC MORPH NOT INDICATED [facility] spital ID Date Data Source [id number] 03/25/2020 07:31:00 AM EST [facility] Name Value Range Interpretation Code Description Data Vivian rce(s) Supporting Document(s) COMPREHENSIVE METABOLIC PANEL [facility] COMPREHENSIVE METABOLIC PANEL Sodium [Moles/volume] in Serum or Plasma 142 mEq/L 134 - 153 [facility] Potassium [Moles/volume] in Serum or Plasma 4.4 mEq/L 3.6 - 5.0 [facility] Chloride [Moles/volume] in Serum or Plasma 97 mEq/L 98 - 107 L [facility] Carbon dioxide, total [Moles/volume] in Serum or Plasma 39 MEQ/L 22 - 30 H [facility] Glucose [Mass/volume] in Serum or Plasma 330 MG/DL 65 - 110 H [facility] BUN 32 MG/DL 7 - 21 H [facility] al Creatinine [Mass/volume] in Serum or Plasma 1.3 MG/DL 0.7 - 1.5 [facility] BUN/CREAT 25 8 - 27 [facility] al Protein [Mass/volume] in Serum or Plasma 6.2 G/DL 6.3 - 8.2 L [facility] Albumin [Mass/volume] in Serum or Plasma 4.1 G/DL 3.9 - 5.0 [facility] Globulin [Mass/volume] in Serum by calculation 2.1 GM/DL 2.4 - 3.2 L [facility] A/G RATIO 2.0 0.8 - 2.0 [facility] Calcium [Mass/volume] in Serum or Plasma 9.8 MG/DL 8.4 - 10.2 [facility] Bilirubin.total [Mass/volume] in Serum or Plasma 1.1 MG/DL 0.2 - 1.3 [facility] Alkaline phosphatase [Enzymatic activity/volume] in Serum or Plasma 244 U/L 38 - 126 H [facility] Aspartate aminotransferase [Enzymatic activity/volume] in Serum or Plasma 27 U/L 5 - 40 [facility] Alanine aminotransferase [Enzymatic activity/volume] in Seru m or Plasma 17 U/L 7 - 56 [facility] Anion gap 3 in Serum or Plasma 6.0 mmol/L 8.0 - 16.0 L [facility] AGE 80 yrs [facility] al NON-AA GFR 42 mL/min [facility] iggy AFR AMER GFR >60 [facility] Male GFR In terprentation 20-49 yrs >60 mL/min Normal 50-59 yrs >56 mL/min Normal 60-69 yrs >49 mL/min Normal 70-79yrs >42 mL/min Normal 80 and above >35 mL/min Normal Female GFR Interpretation 20-39 yrs >60 mL/min Normal 40-49 yrs >58 mL/min Normal 50-59 yrs >51 mL/min Normal 60-69 yrs >45 mL/min Normal 70-79 yrs >39 mL/min Normal 80 and above >32 mL/min Normal ID Date Data Source [id number] 03/25/2020 06:45:00 AM EST [facility] Name Value Range Interpretation Code Description Data Vivian rce(s) Supporting Document(s) Prothrombin time (PT) 28.2 SECONDS 11.0 - 15.5 H [facility] INR in Platelet poor plasma by Coagulation assay 2.60 0.93 - 1. 23 H [facility] \\BLDo\\INR INTERPRETATION\\BLDx\\ Therapeutic range for Coumadin and related oral anticoagulants. - International Normalized Ratio (INR): 2.0 - 3.0 for Venous Thrombosis, Pulmonary Embolus, Tissue heart valves, Acute ME, Atrial Fibrillation, Valvular heart disease and recurrent Systemic Embolism. -International Normalized Ratio (INR): 2.5 - 3.5 for Mechanical Prosthetic valve. ID Date Data Source [id number] 03/24/2020 07:38:00 [place] [address] RESPIRATORY CARE REPORT ==== ---------NAME------- NUMBER SEX AGE ADMIT DISC. XRAY# F/C JODEECLEMENCIA Medina [id number] F 80 03/23/20 [id number] O/P DATE OF : 1940 M/R# [id number] #: [id number] CCU1 LOCATION: EMERGENCY DEPT EKG [id number] COMPLET E:03/24/20 01:08 GLENDA [id number] PHYSICIAN: MANUEL CHAVEZ Name Value Range Interpretation Code Description Data Vivian rce(s) Supporting Document(s) ID Date Data Source [id number] 03/24/2020 01:37:00 [place] [address] HISTORY AND PHYSICALNAME: ANNA JOY Medina ROOM#: [id number] OF : 1940 MR#: [id number] PHYS: Bolivar Sotomayor MD, PC DATE: 03/23/20CHIEF COMPLAINT: Shortness of breath.HISTORY OF PRESENT ILLNESS:This is an 80-year-old female who uses O2 at 2 liters of oxygen at home. She has a history of CHF, COPD,hypercholesteremia, hypertension, insulin dependent diabetes. She has a cardiac pacemaker. She states she hashad increasing shortness of breath over the last 2 days. She came to the emergency room. Upon arrival, bloodpressure was 151/120. Heart rate was 58. Respirations 22. EKG was done which showed a paced rhythm. Shewas given a DuoNeb treatment, 125 mg of Solu-Medrol, a half inch of topical nitroglycerin, 40 of Lasix IV.She had a repeat half inch of nitroglycerin at 17:07. Chest x-ray was done which showed pulmonary vascularcongestion with cardiomegaly. Blood pressure improved with the Lasix and nitroglycerin. Assessment wasdone and decision was made to admit patient observation status for CHF to the service of Dr. Sotomayor for IVLasix, further treatment and work up. She will be placed on a monitored bed.ALLERGIES:PENICILLIN, ALOE VERA.SOCIAL HISTORY:She is . She lives with her . She does not drink alcohol. She does not smoke cigarettes. She hashad no recent travel. She is on home oxygen. She uses a walker.PAST MEDICAL HISTORY: 1. Cardiovascular disease. She has had 4 stents on 03/07/18. 2. History of hypertension 3. History of COPD 4. History of insulin dependent diabetes 5. History of renal failure 6. History of hypertension 7. Hypothyroidism 8. GoutPAST SURGICAL HISTORY: 1. Cardiovascular stents 2. Cholecystectomy 3. Heart valve replacement. She is on Coumadin. 4. History of hysterectomy 5. Cardiac pacemakerHOME MEDICATIONS: 1 [place] [address] HISTORY AND PHYSICALNAME: ANNA Medina ROOM#: [id number] OF : 1940 MR#: [id number] PHYS: Bolivar Sotomayor MD, PC DATE: 03/23/20 1. Albuterol 1 inhalation q 6 hours p.r.n. shortness of breath or wheeze 2. Allopurinol 100 mg twice a day 3. Ascorbic acid 500 mg daily 4. Aspirin 81 mg p.o. daily 5. Atorvastatin 80 mg p.o. daily 6. Bumetanide 1 mg p.o. twice a day 7. Buspirone 7.5 mg twice a day 8. Calcitriol 0.25 mcg 1 p.o. daily 9. Clopidogrel 75 mg p.o. daily 10. Coreg 6.125 mg twice a day 11. Iron 325 mg p.o. daily 12. Levothyroxine 100 mcg daily 13. Lumigan 0.01% ophthalmic solution 1 drop both eyes at bedtime 14. Lyrica 75 mg p.o. daily 15. Toujeo 40 mg q h.s., which she states that has just started. Prior to that, she was on 20 mg twice a day. She says the 40 at night was just recently started, but she has been low in the AM, very low, she says. 16. Vitamin D 2000 units p.o. daily 17. Warfarin 3 mg q eveningLABORATORY STUDIES:In the emergency room, white count was 8.4, hemoglobin 13.7, hematocrit 41.3, platelets were 153. Sodiumwas 139, potassium was 5.3, chloride 95, CO2 38, nonfasting glucose was 149, BUN 25, creatinine 1.3. BNPwas 5816. Magnesium was 2.1. INR was 2.4. Troponin was less than 0.01.REVIEW OF SYSTEMS:Eleven systems review was done and other than the increasing shortness of breath, was unremarkable.PHYSICAL EXAMINATION:GENERAL: 80-year-old obese female, cooperative. Weight is 219 pounds. Height 61 inches. BMI 41.38.VITAL SIGNS: Patient is alert and oriented x3. Blood pressure is 155/68. Pulse 61. Respirations 20. D4kaenvaadyi on 2 liters is 92%.HEENT: Pupils equal and reactive to light. EOMs are intact. Corneas and sclerae are clear. Conjunctivae arenormal. No facial asymmetry. Pharynx, tongue, and gums pink and moist. Tongue is midline.NECK: Supple without lymphadenopathy. No thyromegaly or goiter. Carotids 2+ without bruit. Jugularvenous pressure is at 2-4 at 60 degrees.CHEST: Bibasilar rales. No wheeze or retraction.HEART: Regular.ABDOMEN: Benign. Bowel sounds positive. [address] [place] [address] HISTORY AND PHYSICALNAME: ANNA Medina ROOM#: [id number] OF : 1940 M R#: [id number] PHYS: Bolivar Sotomayor MD, PC DATE: 03/23/20GU/RECTAL: Not done.EXTREMITIES: Ankles have trace to lower extremity edema. Peripheral pulses equal and palpablebilaterally. Skin is warm and dry.IMPRESSION/PLAN: 1. Patient will be admitted to the service of Dr. Sotomayor observation status for CHF. Will be placed on a monitor. IV Lasix. I&O. Daily weights. 2. History of insulin dependent diabetes type 2. Monitor blood sugars. 3. History of hypertension. Continue Coreg. 4. History of valve replacement. Continue Coumadin. Monitor PT/INR. 5. History of hypercholesteremia. Continue Lipitor. 6. Patient will be admitted on telemetry observation status.DD: MARTHA Tobar 03/24/20 12:32DT: JAMEE 03/24/20 01:10DS: MARTHA Tobar 03/24/20 16:15 3 Name Value Range Interpretation Code Description Data Vivian rce(s) Supporting Document(s) ID Date Data Source [id number] 03/24/2020 03:46:00 PM [facility] [address] [place] [address] PHONE: [phone] FAX: [phone] Name .................. : ANNA Medina Acct Number.................. : [id number] ROOM. ................. : CCU1 Number ................... : [id number] Stay type ............. : O/P Discharge Date......... ... : Admit Date ......... : 03/23/20 Admit Phys .................... : MANUEL HERRMANN Date of ....... : 1940 Family Phys ................... : NAUN MTZ Phone .................. : [phone] Age ................................ : 80 Film# .................. .:[id number] Sex ................................. : F Unsigned transcriptions are preliminary reports and do not represent a medical or legal document CHEST PORTABLE [id number] COMPLETE:03/23/20 15:25 [facility] [place] [facility] [place] [address] Reason(s): CHF PORTABLE CHEST X- RAY: INDICATION: CHF, shortness of breath. COMPARISON: 03/07/18 FINDINGS: Portable AP sitting chest submitted. Pulmonary vascular congestion. Cardiomegaly. Left-sided pacemaker. Patient status post sternotomy. The osseous structures are unremarkable. IMPRESSION: Pulmonary vascular congestion with cardiomegaly. Possible CHF. Electronically Reviewed and Signed By Angel Luis Novoa MD , 03/24/20 15:46, TOÑA Transcribe Initials: MILLY , Transcribe Date: 03/23/20 18:53, Dictation Date: Copy for: NAUN HARTLEY via fax Copy for: EMERGENCY DEPT via modem Copy for: 710 MED REC Page 1 of 1 Name Value Range Interpretation Code Description Data Vivian rce(s) Supporting Document(s) ID Date Data Source [id number] 03/24/2020 09:28:00 AM EST [facility] (Bolivar Sotomayor MD) Name Value Range Interpretation Code Description Data Vivian rce(s) Supporting Document(s) Troponin T.cardiac [Mass/volume] in Serum or Plasma Laborato ry test result 0.00-0.10 [facility] (Bolivar Sotomayor MD) TROPONIN T 0.1 ng/ml Recommended as the clinical th reshold value for Troponin T. ID Date Data Source [id number] 03/24/2020 10:11:00 AM EST [facility] Name Value Range Interpretation Code Description Data Vivian rce(s) Supporting Document(s) TROPONIN T <0.01 NG/ML 0.00 - 0.10 [facility] TROPONIN T0.1 ng/ml Recommended as the c linical threshold value forTroponin T. ID Date Data Source [id number] 03/24/2020 03:51:00 AM EST [facility] (Bolivar Sotomayor MD) Name Value Range Interpretation Code Description Data Vivian rce(s) Supporting Document(s) Troponin T.cardiac [Mass/volume] in Serum or Plasma Laborato ry test result 0.00-0.10 [facility] (Bolivar Sotomayor MD) TROPONIN T 0.1 ng/ml Recommended as the clinical th reshold value for Troponin T. ID Date Data Source [id number] 03/24/2020 03:51:00 AM EST [facility] (Bolivar Sotomayor MD) Name Value Range Interpretation Code Description Data Vivian rce(s) Supporting Document(s) Natriuretic peptide.B prohormone N-Terminal [Mass/volu me] in Serum or Plasma 7929 pg/mL 0-450 Above high normal [facility] (Bolivar Sotomayor MD) Thyroxine (T4) free [Mass/volume] in Serum or Plasma 1.43 ng/dL 0.93- 1.70 [facility] (Bolivar Sotomayor MD) Thyrotropin [Units/volume] in Serum or Plasma by Detec tion limit <= 0.005 mIU/L 2.39 uIU/mL 0.47-5.01 [facility] (Bolivar Sotomayor MD) ID Date Data Source [id number] 03/24/2020 03:51:00 AM EST [facility] (Bolivar Sotomayor MD) Name Value Range Interpretation Code Description Data Vivian rce(s) Supporting Document(s) Laboratory test finding (navigational concept) 140 meq/L 134-153 [facility] (Bolivar Sotomayor MD) Laboratory test finding (navigational concept) Laboratory test result [facility] (Bolivar Sotomayor MD) BASIC METABOLIC PANEL Laboratory test finding (navigational concept) 3.4 meq/L 3 .6-5.0 Below low normal [facility] (Bolivar Sotomayor MD) Laboratory test finding (navigational concept) 37 meq/L 22-30 Above high normal [facility] (Bolivar Sotomayor MD) Laboratory test finding (navigational concept) 97 meq/L 98-107 Below low normal [facility] (Bolivar Sotomayor MD) Laboratory test finding (navigational concept) 27 mg/dL 7-21 Above high normal [facility] (Bolivar Sotomayor MD) Laboratory test finding (navigational concept) 216 mg/dL 6 5-110 Above high normal [facility] (Bolivar Sotomayor MD) Laboratory test finding (navigational concept) 8.8 mg/dL 8.4-10.2 [facility] (Bolivar Sotomayor MD) Laboratory test finding (navigational concept) 21 8-27 [facility] (Bolivar Sotomayor MD) Laboratory test finding (navigational concept) 1.3 mg/dL 0.7-1.5 [facility] (Bolivar Sotomayor MD) Laboratory test finding (navigational concept) 80 yrs [facility] (Bolivar Sotomayor MD) Laboratory test finding (navigational concept) 6.0 mmol/L 8 .0-16.0 Below low normal [facility] (Bolivar Sotomayor MD) Laboratory test finding (navigational concept) 42 mL/min [facility] (Bolivar Sotomayor MD) Male GFR Interprentation 20-49 yrs >60 mL/min Normal 50-59 yrs >56 mL/min Normal 60-69 yrs >49 mL/min Normal 70-79yrs >42 mL/min Normal 80 and above >35 mL/min Normal Female GFR Interpretation 20-39 yrs >60 mL/min Normal 40-49 yrs >58 mL/min Normal 50-59 yrs >51 mL/min Normal 60-69 yrs >45 mL/min Normal 70-79 yrs >39 mL/min Normal 80 and above >32 mL/min Normal Laboratory test finding (navigational concept) Laboratory test result [facility] (Bolivar Sotomayor MD) ID Date Data Source [id number] 03/24/2020 03:51:00 AM EST [facility] (Bolivar Sotomayor MD) Name Value Range Interpretation Code Description Data Vivian rce(s) Supporting Document(s) Magnesium [Mass/volume] in Serum or Plasma 2.0 mg/dL 1.7-2.2 [facility] (Bolivar Sotomayor MD) ID Date Data Source [id number] 03/24/2020 03:51:00 AM EST [facility] (Bolivar Sotomayor MD) Name Value Range Interpretation Code Description Data Vivian rce(s) Supporting Document(s) Laboratory test finding (navigational concept) 23.5 s 1 1.0-15.5 Above high normal [facility] (Bolivar Sotomayor MD) Laboratory test finding (navigational concept) 2.06 0 .93-1.23 Above high normal [facility] (Bolivar Sotomayor MD) \\BLDo\\INR INTERPRETATION\\BLDx\\ Therapeutic range for Coumadin and related oral anticoagulants. -International Normalized Ratio (INR): 2 .0 - 3.0 for Venous Thrombosis, Pulmonary Embolus, Tissue heart valves, Acute ME, Atrial Fibrillation, Valvular heart disease and recurrent Systemic Embolism. -International Normalized Ratio (INR): 2 .5 - 3.5 for Mechanical Prosthetic valve. ID Date Data Source [id number] 03/24/2020 03:51:00 AM EST [facility] (Bolivar Sotomayor MD) Name Value Range Interpretation Code Description Data Vivian rce(s) Supporting Document(s) Laboratory test finding (navigational concept) Laboratory test result [facility] (Bolivar Sotomayor MD) COMPLETE BLOOD COUNT Laboratory test finding (navigational concept) 4.16 10^6/uL 4 .20-5.40 Below low normal [facility] (Bolivar Sotomayor MD) Laboratory test finding (navigational concept) 12.9 g/dL 12.0-16.0 [facility] (Bolivar Sotomayor MD) Laboratory test finding (navigational concept) 9.0 10^3/uL 4.2-11.0 [facility] (Bolivar Sotomayor MD) Laboratory test finding (navigational concept) 39.1 % 37.0-47.0 [facility] (Bolivar Sotomayor MD) Laboratory test finding (navigational concept) 94.0 fL 81.0-101 [facility] (Bolivar Sotomayor MD) Laboratory test finding (navigational concept) 33.0 g/dL 31.0-36.0 [facility] (Bolivar Sotomayor MD) Laboratory test finding (navigational concept) 17.4 % 1 1.5-14.5 Above high normal [facility] (Bolivar Sotomayor MD) Laboratory test finding (navigational concept) 31.0 pg 27.0-34.0 [facility] (Bolivar Sotomayor MD) Laboratory test finding (navigational concept) 11.5 fL 7 .4-10.4 Above high normal [facility] (Bolivar Sotomayor MD) Laboratory test finding (navigational concept) 152 10^3/uL 150-450 [facility] (Bolivar Sotomayor MD) Laboratory test finding (navigational concept) 8.0 % 25.0-40 .0 Below low normal [facility] (Bolivar Sotomayor MD) Laboratory test finding (navigational concept) 90.6 % 3 7.0-80.0 Above high normal [facility] (Bolivar Sotomayor MD) Laboratory test finding (navigational concept) 0.3 % 0.0-7.0 [facility] (Bolivar Sotomayor MD) Laboratory test finding (navigational concept) 0.8 % 3.0-8.0 Below low normal [facility] (Bolivar Sotomayor MD) Laboratory test finding (navigational concept) 0.3 % 0.0-0.0 Above high normal [facility] (Bolivar Sotomayor MD) Laboratory test finding (navigational concept) 0.0 % 0.0-2.5 [facility] (Bolivar Sotomayor MD) Laboratory test finding (navigational concept) 0.0 % 0.0-0.0 [facility] (Bolivar Sotomayor MD) Laboratory test finding (navigational concept) 0.72 10^3/uL 0.60-3.40 [facility] (Bolivar Sotomayor MD) Laboratory test finding (navigational concept) 8.15 10^3/uL 2 .00-6.90 Above high normal [facility] (Bolivar Sotomayor MD) Laboratory test finding (navigational concept) 0.03 10^3/uL 0.00-0.70 [facility] (Bolivar Sotomayor MD) Laboratory test finding (navigational concept) 0.07 10^3/uL 0.00-0.90 [facility] (Bolivar Sotomayor MD) Laboratory test finding (navigational concept) 0.00 10^3/uL 0.00-0.20 [facility] (Bolivar Sotomayor MD) Laboratory test finding (navigational concept) 0.00 10^3/uL 0.00-0.00 [facility] (Bolivar Sotomayor MD) Laboratory test finding (navigational concept) 0.03 10^3/uL 0.00-0.10 [facility] (Bolivar Sotomayor MD) Laboratory test finding (navigational concept) Laboratory test result [facility] (Bolivar Sotomayor MD) Laboratory test finding (navigational concept) Laboratory test result [facility] (Bolivar Sotomayor MD) ID Date Data Source [id number] 03/24/2020 05:01:00 AM [facility] Value Range Interpretation Code Description Data Vivian rce(s) Supporting Document(s) Thyrotropin [Units/volume] in Serum or Plasma by Detec tion limit <= 0.05 mIU/L 2.39 uIU/mL 0.47 - 5.01 [facility] ID Date Data Source [id number] 03/24/2020 05:01:00 AM [facility] Value Range Interpretation Code Description Data Vivian rce(s) Supporting Document(s) BNP 7929 PG/ML 0 - 450 H [facility] ID Date Data Source [id number] 03/24/2020 05:01:00 AM [facility] Value Range Interpretation Code Description Data Vivian rce(s) Supporting Document(s) Thyroxine (T4) free index in Serum or Plasma by calculation 1.43 NG/DL 0.93 - 1.70 [facility] ID Date Data Source [id number] 03/24/2020 05:01:00 AM [facility] Value Range Interpretation Code Description Data Vivian rce(s) Supporting Document(s) TROPONIN T <0.01 NG/ML 0.00 - 0.10 [facility] ospital TROPONIN T0.1 ng/ml Recommended as the c linical threshold value forTroponin T. ID Date Data Source [id number] 03/24/2020 04:21:00 AM [facility] Name Value Range Interpretation Code Description Data Vivian rce(s) Supporting Document(s) BASIC METABOLIC PANEL [facility] BASIC METABOLIC PANEL Sodium [Moles/volume] in Serum or Plasma 140 mEq/L 134 - 153 [facility] Potassium [Moles/volume] in Serum or Plasma 3.4 mEq/L 3.6 - 5.0 L [facility] Chloride [Moles/volume] in Serum or Plasma 97 mEq/L 98 - 107 L [facility] Carbon dioxide, total [Moles/volume] in Serum or Plasma 37 MEQ/L 22 - 30 H [facility] Glucose [Mass/volume] in Serum or Plasma 216 MG/DL 65 - 110 H [facility] BUN 27 MG/DL 7 - 21 [facility] Creatinine [Mass/volume] in Serum or Plasma 1.3 MG/DL 0.7 - 1.5 [facility] BUN/CREAT 21 8 - 27 [facility] al Calcium [Mass/volume] in Serum or Plasma 8.8 MG/DL 8.4 - 10.2 [facility] Anion gap 3 in Serum or Plasma 6.0 mmol/L 8.0 - 16.0 L [facility] AGE 80 yrs [facility] AFR AMER GFR >60 [facility] NON-AA GFR 42 mL/min [facility] Male GFR Inter prentation 20-49 yrs >60 mL/min Normal 50-59 yrs >56 mL/min Normal 60-69 yrs >49 mL/min Normal 70-79yrs >42 mL/min Normal 80 and above >35 mL/min Normal Female GFR Interpretation 20-39 yrs >60 mL/min Normal 40-49 yrs >58 mL/min Normal 50-59 yrs >51 mL/min Normal 60-69 yrs >45 mL/min Normal 70-79 yrs >39 mL/min Normal 80 and above >32 mL/min Normal ID Date Data Source [id number] 03/24/2020 04:21:00 AM [facility] Name Value Range Interpretation Code Description Data Vivian rce(s) Supporting Document(s) Magnesium [Mass/volume] in Serum or Plasma 2.0 MG/DL 1.7 - 2.2 [facility] ID Date Data Source [id number] 03/24/2020 04:04:00 AM [facility] Name Value Range Interpretation Code Description Data Vivian rce(s) Supporting Document(s) Prothrombin time (PT) 23.5 SECONDS 11.0 - 15.5 H [facility] INR in Platelet poor plasma by Coagulation assay 2.06 0.93 - 1. 23 H [facility] \\BLDo\\INR INTERPRETATION\\BLDx\\ Therapeutic range for Coumadin and related oral anticoagulants. - International Normalized Ratio (INR): 2.0 - 3.0 for Venous Thrombosis, Pulmonary Embolus, Tissue heart valves, Acute ME, Atrial Fibrillation, Valvular heart disease and recurrent Systemic Embolism. -International Normalized Ratio (INR): 2.5 - 3.5 for Mechanical Prosthetic valve. ID Date Data Source [id number] 03/24/2020 03:56:00 AM [facility] Name Value Range Interpretation Code Description Data Vivian rce(s) Supporting Document(s) CBC W/AUTOMATED DIFF [facility] COMPLETE BLOOD COUNT Leukocytes [#/volume] in Blood by Automated count 9.0 10^3/uL 4.2 - 1 1.0 [facility] Erythrocytes [#/volume] in Blood by Automated count 4.16 10^6/uL 4. 20 - 5.40 L [facility] Hemoglobin [Mass/volume] in Blood 12.9 g/dL 12.0 - 16.0 [facility] Hematocrit [Volume Fraction] of Blood by Automated count 39.1 % 3 7.0 - 47.0 [facility] Erythrocyte mean corpuscular volume [Entitic volume] by Auto mated count 94.0 fL 81.0 - 101 [facility] Erythrocyte mean corpuscular hemoglobin [Entitic mass] by Automated count 31.0 pg 27.0 - 34.0 [facility] Erythrocyte mean corpuscular hemoglobin concentration [Mass/volume] by Automated count 33.0 g/dL 31.0 - 36.0 [facility] Erythrocyte distribution width [Ratio] by Automated count 17.4 % 11.5 - 14.5 H [facility] Platelets [#/volume] in Blood by Automated count 152 10^3/uL 150 - 45 0 [facility] Platelet mean volume [Entitic volume] in Blood by Automated count 11.5 fL 7.4 - 10.4 H [facility] Neutrophils/100 leukocytes in Blood by Automated count 90.6 % 37. 0 - 80.0 H [facility] Lymphocytes/100 leukocytes in Blood by Manual count 8.0 % 25.0 - 40.0 L [facility] Monocytes/100 leukocytes in Blood by Automated count 0.8 % 3.0 - 8.0 L [facility] Eosinophils/100 leukocytes in Blood by Automated count 0.3 % 0.0 - 7.0 [facility] Basophils/100 leukocytes in Blood by Automated count 0.0 % 0.0 - 2.5 [facility] %IG 0.3 % 0.0 - 0.0 [facility] %NRBC 0.0 % 0.0 - 0.0 [facility] Neutrophils [#/volume] in Blood by Automated count 8.15 10^3/uL 2.00 - 6.90 H [facility] Lymphocytes [#/volume] in Blood by Automated count 0.72 10^3/uL 0.60 - 3.40 [facility] Monocytes [#/volume] in Blood by Automated count 0.07 10^3/uL 0.00 - 0.90 [facility] Eosinophils [#/volume] in Blood by Automated count 0.03 10^3/uL 0.00 - 0.70 [facility] Basophils [#/volume] in Blood by Automated count 0.00 10^3/uL 0.00 - 0.20 [facility] #IG 0.03 10^3/uL 0.00 - 0.10 [facility]spital #NRBC 0.00 10^3/uL 0.00 - 0.00 [facility] MANUAL DIFF NOT INDICATED [facility] RBC MORPH NOT INDICATED [facility] spital ID Date Data Source [id number] 03/24/2020 12:38:00 AM EST [facility] (Bolivar Sotomayor MD) Name Value Range Interpretation Code Description Data Vivian rce(s) Supporting Document(s) Potassium [Moles/volume] in Serum or Plasma 3.7 meq/L 3.6-5.0 [facility] (Bolivar Sotomayor MD) can run on blood just drawn for mag evie l ID Date Data Source [id number] 03/24/2020 12:59:00 AM [facility] Name Value Range Interpretation Code Description Data Vivian rce(s) Supporting Document(s) Potassium [Moles/volume] in Serum or Plasma 3.7 mEq/L 3.6 - 5.0 [facility] ID Date Data Source [id number] 03/23/2020 10:00:00 PM EST [facility] (Bolivar Sotomayor MD) Name Value Range Interpretation Code Description Data Vivian rce(s) Supporting Document(s) Magnesium [Mass/volume] in Serum or Plasma 2.1 mg/dL 1.7-2.2 [facility] (Bolivar Sotomayor MD) ID Date Data Source [id number] 03/23/2020 11:12:00 PM [facility] Name Value Range Interpretation Code Description Data Vivian rce(s) Supporting Document(s) Magnesium [Mass/volume] in Serum or Plasma 2.1 MG/DL 1.7 - 2.2 [facility] ID Date Data Source [id number] 03/23/2020 09:08:00 PM EST [facility] (Bolivar Sotomayor MD) Name Value Range Interpretation Code Description Data Vivian rce(s) Supporting Document(s) Troponin T.cardiac [Mass/volume] in Serum or Plasma Laborato ry test result 0.00-0.10 [facility] (Bolivar Sotomayor MD) TROPONIN T 0.1 ng/ml Recommended as the clinical th reshold value for Troponin T. ID Date Data Source [id number] 03/23/2020 09:51:00 PM [facility] Name Value Range Interpretation Code Description Data Vivian rce(s) Supporting Document(s) TROPONIN T <0.01 NG/ML 0.00 - 0.10 [facility] TROPONIN T0.1 ng/ml Recommended as the c linical threshold value forTroponin T. ID Date Data Source [id number] 03/23/2020 02:25:00 PM [facility] 1 OrderSheet [facility] Emergency Department [address] [place] [address] Phone #: ext- [phone] 03/23/2020 14:17 [id number] Sex: F : 1940 Age: 80yWEIGHT:101.1 kg (M) HEIGHT:61 inches (S) BMI:42.1 STATUS:NoALLERGIES: Aloe, PCN, PenicillinsCHIEF COMPLAINT: dyspnea, COPD, CHFDIAGNOSIS: Congestive heart failureLAB ORDERSOrder Description Priority Entered Acknowledged InitialedCBC w Diff STAT 14:44 03/23/2020 14:49 Siria Mccarthy process plant operatorGiovanni M.D.; [id number] STAT 14:44 03/23/2020 14:49 Siria Mccarthy process plant operatorGiovanni M.D.; Jely9Flqslp STAT 14:44 03/23/2020 14:49 Siria Mccarthy process plant operatorGiovanni M.D.; Ksrk7SF/PTT STAT 14:44 03/23/2020 14:49 Alex Evans Siria process plant operatorGiovanni M.D.; Iybl5Jmilchec-B STAT 14:44 03/23/2020 14:49 Siria Mccarthy process plant operatorGiovanni M.D.; [id number] STAT 14:44 03/23/2020 14:49 Alex Evans Siria process plant operatorGiovanni M.D.; [id number] STUDY ORDERSOrder Description Priority Entered Acknowledged InitialedChest Portable 1 STAT 14:44 03/23/2020 14:49 Kp Long (Oxygen? Siria Evans R.N.(Yes)) Brenda; Reason for Study: CHF, COPD, Shortness of BreathMEDICATION/IV/DRIP/FLUID ORDERSOrder Description Priority Entered Acknowledged InitialedDuoNeb Neb Tx 3 14:44 03/23/2020 15:08 Ethan,Siria Hwang R.N., M.D.; 2 OrderSheet [facility] Emergency Department [address] [place] [address] Phone #: ext- [phone] 03/23/2020 14:17 Patient: JOY DENT Sex: F : 1940 Age: 80ySOLU-Medrol 125 14:44 03/23/2020 15:04 Dorismg IV X1 Dose: 125 Siria Evans RNmg (X1) M.DMarifer;NitroGLYCERIN 15:11 03/23/2020 15:25 Brooks LisaTopical Ointment Siria Evans RN0.5 in. M.DMarifer;Lasix IVP 40 mg 15:11 03/23/2020 15:25 Sol Guy Riccardo RN M.DMarifer;NitroGLYCERIN 17:07 03/23/2020 17:07 EthanTopical OintSrinivas Rojas R.N.; Srinivas Macias1 in. Verbal order per; Siria Evans M.D.GENERAL ORDERSOrder Description Prior ity Entered Acknowledged InitialedBlood Pressure 14:44 03/23/2020 14:49 BurnhamMonitor Siria Evans process plant operatorGiovanni Hatch M.D.; Fcwz4Kiqdgvs Monitor 14:44 03/23/2020 14:49 [place](continuous) Siria Evans process plant operatorGiovanni Hatch M.D.; Ytcf4NUU 14:44 03/23/2020 14:49 Alex Siria Evans process plant operatorGiovanni Hatch M.D.; Ihmn7LHV 14:44 03/23/2020 14:49 [place] Siria Evans process plant operatorGiovanni Hatch M.D.; Zgid8Oqnbso Old EKG 14:44 03/23/2020 14:49 [place] Tony Evanscardo process plant operatorGiovanni M.D.; Pczy4Ydmrba Old Records 14:44 03/23/2020 14:49 [place] Tony Evanscardo process plant operator, Giovanni OTERO M.D.; Grnt6Alflhu (2 L/min) 14:44 03/23/2020 14:49 Alex(NC) (Titrate to O2 Siria Evans process plant operatorGiovanni ERSat >92%) Brenda; Fatl0Ccmfdf titrate to 14:44 03/23/2020 14:49 Ucxyvba08% Vineet Evansdo process plant operatorGiovanni M.D.; Ekuy0Xtdxd oximeter 14:44 03/23/2020 14:49 [place](Continuous) Siria Evans process plant operatorGiovanni 3 OrderSheet [facility] Emergency Department [address] [place] [address] Phone #: ext- [phone] 03/23/2020 14:17 Patient: JOY DENT Sex: F : 1940 Age: 80y M.D.; Umre5Jvmjfs Lock 14:44 03/23/2020 14:50 Price Long Riccardo John R.N. M.D.;Vitals 14:44 03/23/2020 14:49 [place] Siria Evans ED, Jesse ER M.D.; Jyfw4Eskwdvk - 16:48 03/23/2020 16:56 BurnhamCardiologist Siria Evans process plant operatorGiovanni M.D.; Tech1[Electronically signed by Srinivas Long R.N. (20:25 03/23/2020)][Electronically signed by Siria Evans M.D. (20:36 03/23/2020)][Electronically locked by Srinivas Long R.N. (20:25 03/23/2020)] Name Value Range Interpretation Code Description Data Vivian rce(s) Supporting Document(s) ID Date Data Source [id number] 03/23/2020 02:25:00 PM EST [facility] 1 Medication Reconciliation Report [facility] Emergency Department [address] [place] [address] Phone #: ext- [phone] 03/23/2020 14:17 Patient: JOY DENT Sex: F : 1940 Age: 80yWeight: 101.1 kgHeight/Length: 61 in.BMI: 42.1ALLERGIES: Aloe, PCN, PenicillinsThe patient's Home Medications are listed below:THE FOLLOWING MEDICATIONS NEED TO BE RECONCILED: Allopurinol Oral 100 mg, 2x a day Aspirin Oral 81 mg, daily Bumetanide Oral (1 mg) 1 tablet, 2x a day busPI Jose HCl Oral (7.5 mg) 1 tablet, 2x a day Calcitriol Oral (0.25 mcg) 1 capsule, daily Carvedilol Oral (6.25 mg) 1 tablet, 2x a day CoQ-10 Oral (100 mg) 1 capsule, daily Ferrous Gluconate Oral (324 (38 Fe) mg) 1 tablet, 2x a day Lipitor Oral (80 mg) 1 tablet, daily, at bedtime Lyrica Oral (75 mg) 1 capsule, 2x a day Omeprazole Oral 20 mg, daily Plavix Oral 75 mg, daily Synthroid Oral (100 mcg) 1 tablet, daily Toujeo SoloStar Subcutaneous (300 unit/mL) 35 units, daily Vitamin c Oral (500 mg) 1 tablet, daily 2 Medication Reconciliation Report [facility] Emergency Department [address] [place] [address] Phone #: ext- [phone] 03/23/2020 14:17 Patient: JOY DENT Sex: F : 1940 Age: 80y Vitamin D-3 Oral 2000, daily Warfarin Sodium Oral (3 mg) 1 tablet, dailyThe source(s) of the original Home Medication information:Not obtained.The following Medications were given to the patient in the Emergency Department:Solu-Medrol [IVP] IVP 125 mg, administered: 03/23/2020 3:00:00 PMDuoneb [Neb Tx] Neb TX 1 unit dose, administered: 03/23/2020 3:08:00 PMNITROGLYCERIN [TOPICAL OINTMENT] Topical 0.5 in., administered: 03/23/2020 3:25:00 PMLasix [IVP] IVP 40 mg, administered: 03/23/2020 3:25:00 PMNITROGLYCERIN [TOPICAL OINTMENT] Topical 1 in., administered: 03/23/2020 5:07:00 PMThe following Medications were prescribed to the patient:None. Name Value Range Interpretation Code Description Data Vivian rce(s) Supporting Document(s) ID Date Data Source [id number] 03/23/2020 02:25:00 PM EST [facility] 1 Medication Administration Record [facility] Emergency Department [address] [place] [address] Phone #: ext- [phone] 03/23/2020 14:17 Patient: JOY DENT Sex: F : 1940 Age: 80yWeight: 101.1 kgHeight/Length: 61 inBMI: 42.1ALLERGIES: Aloe, PCN, Penicillins Date/Time Medication Administered Medication OrderedGiven DUONEB [NEB TX] DuoNeb Neb Tx 3 mL15:08 03/23/2020 Dose: 1 unit dose Nebulizer Neb Srinivas Goode, R.N.Given SOLU-MEDROL [IVP] SOLU-Medrol 125 mg IV X1 Dose:15:00 03/23/2020 (METHYLPREDNISOLONE SODIUM 125 mg (X1)Nancy Rose RN SUCC) Dose: 125 mg IVP Site: #1 right forearmGiven NITROGLYCERIN [TOPICAL OINTMENT] NitroGLYCERIN Pwlswks45:25 03/23/2020 Dose: 0.5 in. Topical Ointment 0.5 in.Sol Guy RNGiven LASIX [IVP] Lasix IVP 40 mg15:25 03/23/2020 Dose: 40 mg IVPBSol lyles RN Site: #1 right forearmGiven NITROGLYCERIN [TOPICAL OINTMENT] NitroGLYCERIN Dehjnww51:07 03/23/2020 Dose: 1 in. Ointment Topical Ointment 1 in.Srinivas Long R.N. Name Value Range Interpretation Code Description Data Vivina rce(s) Supporting Document(s) ID Date Data Source [id number] 03/23/2020 02:25:00 PM [facility] 1 General Instructions [facility] Emergency Department [address] [place] [address] Phone #: ext- [phone] 03/23/2020 14:17 Patient: JOY DENT Sex: F : 1940 Age: 80yAcute mild systolic, left ventricular congestive heart failure.(Electronically signed by Siria Evans M.D. 03/23/2020 20:36) Name Value Range Interpretation Code Description Data Vivian rce(s) Supporting Document(s) ID Date Data Source [id number] 03/23/2020 02:25:00 PM [facility] 1 Clinical Report - Nurses [facility] Emergency Department [address] [place] [address] Phone #: ext [phone] 03/23/2020 14:17 Patient: JOY DENT Sex: F : 1940 Age: 80yTRIAGEArrived by EMS. Historian: patient. Unaccompanied. ( wears 2 liters oxygen up to 4 liters per ems, sobwith movement).Acuity: LEVEL 3.Chief Complaint: SHORTNESS OF BREATH.Alert.Onset. (2 days). She has had a cough.SEPSIS SCREEN: SIRS Screen negative. Sepsis Screen negative. No suspected or confirmed signs ofinfection present. --14:22 03/23/20 Xiao Woody R.N.14:22 03/23/20. BP: 161/120 taken on the right arm. MAP: 133. HR: 58. RR: 22. O2 saturation: 97% onnasal cannula at 4 liters/minute. Temp: 97.2 F. Pain level now: 0/10. --14:25 03/23/20 Xiao Woody R.N.14:28 03/23/20. BP: 170/58. MAP: 95. --14:29 03/23/20 Xiao Woody R.N.Weight: 101.1 kg measured. Height/Length: 61 inches Per Patient. BMI: 42.1. --14:17 03/23/20 Xiao Woody R.N.MedicationsAllopurinol Oral 100 mg, 2x a day. Aspirin Oral 81 mg, daily. Calcitriol Oral (Capsule 0.25 mcg) 1 capsule, daily. Carvedilol Oral (Tablet 6.25 mg) 1 tablet, 2x a day. CoQ-10 Oral (Capsule 100 mg) 1 capsule, daily. Ferrous Gluconate Oral (Tablet 324 (38 Fe) mg) 1 tablet, 2x a day. Lyrica Oral (Capsule 75 mg) 1 capsule, 2x a day. Omepra zole Oral 20 mg, daily. Plavix Oral 75 mg, daily. Toujeo SoloStar Subcutaneous (Solution Pen-injector 300 unit/mL) 35 units, daily. Vitamin c Oral (Tablet 500 mg) 1 tablet, daily. Vitamin D-3 Oral 2000, daily. Warfarin Sodium Oral (Tablet 3 mg) 1 tablet, daily. --14:36 03/23/20 Nancy Rose RN Bumetanide Oral (Tablet 1 mg) 1 tablet, 2x a day. --14:37 03/23/20 Nancy Rose RN Lipitor Oral (Tablet 80 mg) 1 tablet, daily at bedtime. --14:38 03/23/20 Nancy Rose RN Synthroid Oral (Tablet 100 mcg) 1 tablet, daily. --14:38 03/23/20 Nancy Rose RN busPIRone HCl Oral (Tablet 7.5 mg) 1 tablet, 2x a day. --14:38 03/23/20 Nancy Rose RN.Allergies 2 Clinical Report - Nurses [facility] Emergency Department [address] [place] [address] Phone #: ext- [phone] 03/23/2020 14:17 [id number] Sex: [facility] : 1940 Age: 80yPCN. --14:21 03/23/20 Xiao Woody R.N.Aloe. --14:21 03/23/20 Xiao Woody R.N.Penicillins. --14:36 03/23/20 Nancy Rose RN.PROBLEMS:Hypercholesterolemia. --14:23 03/23/20 Xiao Woody R.N.Hypertension.Congestive Heart Failure.COPD - Chronic Obstructive Pulmonary Disease. --15:01 03/23/20 Siria Evans M.D.The following entry was modified by Siria Evans M.D., 15:01 03/23/20Hypertension. --14:23 03/23/20 Xiao Woody R.N.The following entry was modified by Siria Evans M.D., 15:03/23/20COPD - Chronic Obstructive Pulmonary Disease. --14:03/23/20 Xiao Woody R.N.The following entry was modified by Siria Evans M.D., 15:03/23/20Congestive Heart Failure. --14:03/23/20 Xiao Woody R.N..ADDITIONAL SURGERIES:Cardiac Surgery (Stents).Pacemaker. --14:03/23/20 Xiao Woody R.N.HistoryPAST MEDICAL HX: Immunizations: up-to-date. The patient is post-menopausal.SOCIAL HX: Never smoker. No alcohol use or drug use. She was offered HIV testing but declined andhepatitis C testing but declined.SELF HARM ASSESSMENT: Self harm assessment was performed. The patient answered "no" to thequestion(s) "Have you recently felt down, depressed, or hopeless?", "Do you have thoughts of harming orkilling yourself?", "Do you have a plan for harming or killing yourself?", "Have you recently had thoughtsabout harming or killing others?", "Do you have any dangerous items in your possession?", "Have younoticed less interest or pleasure in doing things?", "Are you here because you tried to hurt yourself?" and"Have you ever tried to hurt yourself before today?".ABUSE ASSESSMENT: Abuse assessment. Abuse denied. No suspicion of abuse. No report of abuse.NUTRITIONAL RISK ASSESSMENT: The nutritional risk assessment revealed no deficiencies.FUNCTIONAL ASSESSMENT: Functional assessment: no impairments noted.LEARNING NEEDS ASSESSMENT: The learning needs assessment revealed no barriers.FALL RISK ASSESSMENT: Fall risk assessment completed. No risk factors identified.SKIN INTEGRITY ASSESSMENT: Skin integrity risk assessment completed. No skin integrity risk 3 Clinical Report - Nurses [facility] Emergency Department [address] [place] [address] Phone #: ext- [phone] 03/23/2020 14:17 [id number] Sex: F : 1940 Age: 80y identified. --14:03/23/20 Xiao Woody R.N. SOCIAL HX: The patient has not traveled outside the [place] Infectious disease exposure: No infectious disease exposure. Patient is not a known carrier of tuberculosis, hepatitis, HIV, MRSA or VRE. Patient is not a known carrier of CRE. --14:03/23/20 Xiao Woody R.N. Interventions Identification band on patient. To treatment room. --14:03/23/20 Xiao Woody R.N.PHYSICAL ASSESSMENT( in no acute distress on arrival. C/o two hx of SOB).GENERAL / NEURO / PSYCH: Alert. Oriented X 4. Appears in no acute distress.RESPIRATORY: Mild respiratory distress. The patient can speak in full sentences.SKIN: Skin is warm and dry. --14:40 03/23/20 Srinivas Long R.N.NURSING PROGRESS NOTESCardiac monitor and NIBP monitor placed on patient; monitor alarms on. Patient gowned. Reassurancegiven. Two patient identifiers checked. Call light placed in reach. Side rails up x 2. Bed placed inlowest position. Brakes of bed on. Patient ready for evaluation- ED physician notified. --14:26 03/23/20Xiao Woody R.N. EKG time: (14:23 03/23/2020). EKG was performed by a tech and shown to the ED physician. . --14:27 03/23/20 [place] process plant operator, SHANNA Davila Tech1 14:57 03/23/2020 Site #1 started via IV in the right forearm with an 20g angiocath, with aseptic technique and good blood return; one attempt. Blood drawn: rainbow set. Labeled in the presence of the patient and sent to the lab. Saline lock flushed with 10 mL saline. --15:03 03/23/20 Nancy Rose RN 15:00 03/23/2020 Solu-Medrol (methylPREDNISolone Sodium Succ) IVP 125 mg given over 2 minute(s) via site #1. Allergies verified and confirmed 5 rights. IV patency established. IV site checked: no pain, redness, or swelling. IV flushed thoroughly pre- and post-medication administration. IVP given by RN. Information reviewed with patient including reason for taking this medication, signs of allergic reaction and precautions. Verbalizes understanding. --15:04 03/23/20 Nanyc Rose RN 15:03/23/2020 Duoneb Neb TX Nebulizer 1 unit dose given. --15:03/23/20 Srinivas Long R.N. Reassurance given to the patient. Side rails up x 2. Bed placed in lowest position. --15:12 03/23/20 Srinivas Long R.N. 15:03/23/20. BP: 152/50. MAP: 84. HR: 68. RR: 14. O2 saturation: 99% at 2 liters/minute. Temp: deferred. Pain level now: 0/10. --15:12 03/23/20 Srinivas Long R.N. 15:03/23/2020 NITROGLYCERIN Topical 0.5 inch given Applied to the right upper arm. Allergies verified and confirmed 5 rights. Information reviewed with patient including reason for taking this 4 Clinical Report - Nurses [facility] Emergency Department [address] [place] [address] Phone #: ext- [phone] 03/23/2020 14:17 Patient: JOY DENT Sex: F : 1940 Age: 80y medication. Verbalizes understanding. --15:03/23/20 Sol Guy RN 15:03/23/2020 Lasix IVP 40 mg given via site #1. Allergies verified and confirmed 5 rights. IV patency established. IV site checked: no pain, redness, or swelling. IV flushed thoroughly pre- and post-medication administration. IVP given by RN. Information reviewed with patient including reason for taking this medication. Verbalizes understanding. --15:25 03/23/20 Sol Guy RN 16:15 03/23/20. BP: 165/65. MAP: 98. HR: 74. RR: 18. O2 saturation: 98% at 2 liters/minute. Temp: deferred. Pain level now: 0/10. --16:16 03/23/20 Srinivas Long R.N. The patient is resting quietly and sleeping. --16:16 03/23/20 Srinivas Long R.N. 17:07 03/23/2020 NITROGLYCERIN Topical Ointment 1 inch given. --17:07 03/23/20 Srinivas Long R.N. ( Hosptialist here for eval and admission. Pt placed back on monitor after up to bedside commode on own.). --17:23 03/23/20 Srinivas Long R.N. 17:21 03/23/20. BP: 156/94. MAP: 114. HR: 64. RR: 16. O2 saturation: 97% at 2 liters/minute. Temp: deferred. Pain level now: 0/10. --17:23 03/23/20 Srinivas Long R.N. 18:24 03/23/20. BP: 161/71. MAP: 101. HR: 64. RR: 16. O2 saturation: 92%. Temp: deferred. Pain level now: 0/10. --18:24 03/23/20 [place] process plant operator, Giovanni, ER Tech1 Reassurance given to the patient. The patient reports no complaints and she is calm, resting quietly and sleeping. ( Awaiting bed for admission. Pt in no distress sleeping). --19:00 03/23/20 Srinivas Long R.N. Intake Output Urine output: 800 mL with return of yellow-colored urine. --17:21 03/23/20 Srinivas Long R.N.DISPOSITION / DISCHARGE Report was given to a nurse via a phone call. Report included information rega rding patient's condition including: recent changes, current vital signs and abnormal labs. All questions were answered. Report was acknowledged. --20:24 03/23/20 Srinivas Long R.N. 20:24 03/23/20. BP: 162/82. MAP: 108. HR: 64. RR: 18. O2 saturation: 97% at 2 liters/minute. Temp: deferred. Pain level now: 0/10. --20:25 03/23/20 Srinivas Long R.N.Locked/Released at 03/23/2020 20:25 by Srinivas Long R.N. 5 Clinical Report - Nurses [facility] Emergency Department [address] [place] [address] Phone #: ext- [phone] 03/23/2020 14:17 Patient: JOY DENT Sex: F : 1940 Age: 80y Name Value Range Interpretation Code Description Data Vivian rce(s) Supporting Document(s) ID Date Data Source [id number] 03/23/2020 02:25:00 PM EST [facility] 1 Clinical Report - Physicians/Mid Levels [facility] Emergency Department [address] [place] [address] Phone #: ext- [phone] 03/23/2020 14:17 Patient: JOY DENT Sex: F : 1940 Age: 80y Time Seen: 14:18 03/23/2020; initial patient contact. Arrived- By private vehicle. Historian- patient. Disposition decision: 16:46 03/23/2020.HISTORY OF PRESENT ILLNESS Chief Complaint: DYSPNEA and HISTORY OF CHRONIC OBSTRUCTIVE PULMONARY DISEASE and CONGESTIVE HEART FAILURE. This started 2 days ago and is still present and worsening. It was gradual in onset and has been intermittent. The dyspnea is described as moderate and is worsened by walking and is improved by rest. The patient has had a mild dry cough. No sputum production, fever, sweating episodes, wheezing or chills. No chest pain or discomfort, calf pain, foot swelling or anxiety. No dizziness, tingling, numbness or palpitations. Similar symptoms previously. Patient has had similar symptoms occasionally. ( has Hx of CHF and COPD). Recent medical care: Not recently seen/assessed.REVIEW OF SYSTEMSThe patient has not had weight loss. No muscle aches, eye irritation, sore throat, nasal discharge or sinusdrainage. No nausea, vomiting, abdominal pain, diarrhea or black stools. No bloody stools, headache,fainting episodes, blurred vision or difficulty with urination. No excessive urination, skin rash, enlargedlymph nodes or joint pain. All other systems reviewed and are negative.PAST HISTORYSee nurses notes. Problems: Coronary Artery Disease. Hypertension. Peripheral Vascular Disease. Congestive Heart Failure. 8 cardiac stents. Anxiety Reaction. COPD - Chronic Obstructive Pulmonary Disease. Diabetes Mellitus. CVA in 2007. Hypercholesterolemia. Additional Surgeries: Angioplasty of vein. Cardiac Surgery. Cholecystectomy. 2 Clinical Report - Physicians/Mid Levels [facility] Emergency Department [address] [place] [address] Phone #: ext- [phone] 03/23/2020 14:17 [id number] Sex[facility] F : 1940 Age: 80y Hysterectomy. Pacemaker. Stents in left leg [12/18/2018]. Valve Replacement. Medications: busPIRone HCl Oral (Tablet 7.5 mg) 1 tablet, 2x a day. Synthroid Oral (Tablet 100 mcg) 1 tablet, daily. Lipitor Oral (Tablet 80 mg) 1 tablet, daily at bedtime. Bumetanide Oral (Tablet 1 mg) 1 tablet, 2x a day. Allopurinol Oral 100 mg, 2x a day. Aspirin Oral 81 mg, daily. Calcitriol Oral (Capsule 0.25 mcg) 1 capsule, daily. Carvedilol Oral (Tablet 6.25 mg) 1 tablet, 2x a day. CoQ-10 Oral (Capsule 100 mg) 1 capsule, daily. Ferrous Gluconate Oral (Tablet 324 (38 Fe) mg) 1 tablet, 2x a day. Lyrica Oral (Capsule 75 mg) 1 capsule, 2x a day. Omeprazole Oral 20 mg, daily. Plavix Oral 75 mg, daily. Toujeo SoloStar Subcutaneous (Solution Pen-injector 300 unit/mL) 35 units, daily. Vitamin c Oral (Tablet 500 mg) 1 tablet, daily. Vitamin D-3 Oral 2000, daily. Warfarin Sodium Oral (Tablet 3 mg) 1 tablet, daily. Allergies: Aloe. PCN. Penicillins.SOCIAL HISTORYNever smoker. No alcohol use or drug use.ADDITIONAL NOTESThe nursing notes have been reviewed with agreement regarding the chief complaint, HPI, ROS, PMH andpatient medications and allergies.PHYSICAL EXAMVital Signs: 03/23/2020 14:28 BP: 170/58. MAP: 95.03/23/2020 14:22 BP: 161/120. MAP: 133. HR: 58. RR: 22. O2 saturation: 97% on nasal cannula at 4liters/minute. Temp: 97.2 F. Pain level now: 0/10. Have been reviewed. Oxygen saturation normal.Appearance: Alert. No acute distress.Eyes: Pupils equal, round and reactive to light. Eyes normal inspection.ENT: Ears normal. Nose normal. Pharynx normal. Uvula midline.Neck: Normal inspection. No jugular venous distention. Neck supple.CVS: Normal heart rate and rhythm. Heart sounds normal. Pulses normal. 3 Clinical Report - Physicians/Mid Levels [facility] Emergency Department [address] [place] [address] Phone #: ext- [phone] 03/23/2020 14:17 Patient: JOY DENT Sex: F : 1940 Age: 80y Respiratory: No respiratory distress. Mildly decreased air movement in the bases bilaterally. Painless inspiration. Mild crackles present in the bases bilaterally. Abdomen: Soft and nontender. No organomegaly. Moderately obese. Back: Normal inspection. Skin: Skin warm and dry. Normal skin color. Normal skin turgor. Extremities: Extremities exhibit normal ROM. No lower extremity edema. No lower extremity edema. Neuro: Oriented X 3. No motor deficit. No sensory deficit. Reflexes normal.LABS, X-RAYS, AND EKGEKG: No acute process. Continuous ventricular paced rhythm (60/min). EKG unchanged whencompared with prior EKG. (02-01-19). The study has been interpreted contemporaneously by me. TheEKG appears to be a good tracing. Interpretation time: 14:27 03/23/2020.Chest X-ray: Mild congestive heart failure present (early). Mild cardiomegaly. Views: AP (portable).The X-rays were interpreted by the radiologist. Interpretation time: 15:10 03/23/2020.Laboratory Tests: Laboratory tests have been ordered, with results reviewed and considered in themedical decision making process. CBC w Diff: (KATELYN: 03/23/2020 14:57) ( MsgRcvd 03/23/2020 15:07) Final results Test Result Flag Units (Reference) CBC W/AUTOMATED DIFF COMPLETE BLOOD COUNT WBC 8.4 10/uL (4.2 - 11.0) RBC 4.36 10/uL (4.20 - 5.40) HEMOGLOBIN 13.7 g/dL (12.0 - 16.0) HEMATOCRIT 41.3 % (37.0 - 47.0) MCV 94.7 fL (81.0 - 101) MCH 31.4 pg (27.0 - 34.0) MCHC 33.2 g/dL (31.0 - 36.0) RDW 17.7 H % (11.5 - 14.5) PLATELETS 153 10/uL (150 - 450) MPV 11.6 H fL (7.4 - 10.4) NEUT 74.0 % (37.0 - 80.0) LYMPH 13.7 L % (25.0 - 40.0) MONO 8.5 H % (3.0 - 8.0) EOS 3.1 % (0.0 - 7.0) BASO 0.5 % (0.0 - 2.5) %IG 0.2 H % (0.0 - 0.0) %NRBC 0.0 % (0.0 - 0.0) #NEUT 6.19 10/uL (2.00 - 6.90) #LYMPH 1.15 10/uL (0.60 - 3.40) #MONO 0.71 10/uL (0.00 - 0.90) #EOS 0.26 10/uL (0.00 - 0.70) #BASO 0.04 10/uL (0.00 - 0.20) #IG 0.02 10/uL (0.00 - 0.10) #NRBC 0.00 10/uL (0.00 - 0.00) MANUAL DIFF NOT INDICATED RBC MORPH NOT INDICATED CMP: (KATELYN: 03/23/2020 14:57) ( MsgRcvd 03/23/2020 15:37) Final results Test Result Flag Units (Reference) COMPREHENSIVE METABOLIC PANEL COMPREHENSIVE METABOLIC PANEL 4 Clinical Report - Physicians/Mid Levels [facility] Emergency Department [address] [place] [address] Phone #: ext- [phone] 03/23/2020 14:17 Patient: JOY DENT Sex: F : 1940 Age: 80y SODIUM 139 mEq/L (134 - 153) POTASSIUM 5.3 H mEq/L (3.6 - 5.0) CHLORIDE 95 L mEq/L (98 - 107) CO2 38 H MEQ/L (22 - 30) GLUCOSE 149 H MG/DL (65 - 110) BUN 25 H MG/DL (7 - 21) CREATININE 1.3 MG/DL (0.7 - 1.5) BUN/CREAT 19 (8 - 27) TOTAL PROTEIN 6.0 L G/DL (6.3 - 8.2) ALBUMIN 3.7 L G/DL (3.9 - 5.0) GLOBULIN 2.3 L GM/DL (2.4 - 3.2) A/G RATIO 1.6 (0.8 - 2.0) CALCIUM 9.0 MG/DL (8.4 - 10.2) TOTAL BILI 1.5 H MG/DL (0.2 - 1.3) ALKALINE PHOS 237 H U/L (38 - 126) SGOT/AST 36 U/L (5 - 40) SGPT/ALT 15 U/L (7 - 56) ANION GAP 6.0 L mmol/L (8.0 - 16.0) AGE 80 yrs NON-AA GFR 42 mL/min AFR AMER GFR >60 Male GFR Interprentation 20-49 yrs >60 mL/min Te[place]46-51 yrs >56 mL/min Normal 60-69 yrs >49 mL/min Normal 70-79yrs>42 mL/min Normal 80 and above >35 mL/min Normal Female GFRInterpretation 20-39 yrs >60 mL/min Normal 40-49 yrs >58 mL/minNormal 50-59 yrs >51 mL/min Normal 60-69 yrs >45 mL/min Evhslv05-01 yrs >39 mL/min Normal 80 and above >32 mL/min NormalLipase: (KATELYN: 03/23/2020 14:57) ( MsgRcvd 03/23/2020 15:37) Final results Test Result Flag Units (Reference) LIPASE 18 U/L (13 - 60)PT/PTT: (KATELYN: 03/23/2020 14:57) ( MsgRcvd 03/23/2020 15:20) Final results Test Result Flag Units (Reference) PROTIME 26.5 H SECONDS (11.0 - 15.5) INR 2.40 H (0.93 - 1.23) PTT 42.0 H SECONDS (24.8 - 36.7) \\BLDo\\INR INTERPRETATION\\BLDx\\ Therapeutic range for Coumadin andrelated oral anticoagulants. -International Normalized Ratio (INR): 2.0 - 3.0 for VenousThrombosis, Pulmonary Embolus, Tissue heart valves, Acute ME Atrial Fibrillation, Valvular heart diseaseand recurrent Systemic Embolism. -International Normalized Ratio (INR): 2.5 - 3.5 forMechanical Prosthetic valve.Troponin-T: (KATELYN: 03/23/2020 14:57) ( MsgRcvd 03/23/2020 15:33) Final results Test Result Flag Units (Reference) TROPONIN T <0.01 NG/ML (0.00 - 0.10) TROPONIN T0.1 ng/ml Recommended as the clinical threshold value forTroponin T.BNP: (KATELYN: 03/23/2020 14:57) ( MsgRcvd 03/23/2020 15:37) Final results Test Result Flag Units (Reference) BNP 5816 H PG/ML (0 - 450)Chest Portable 1 View: (KATELNY: 03/23/2020 14:44) ( [facility] [place] 5 Clinical Report - Physicians/Mid Levels [facility] Emergency Department [address] [place] [address] Phone #: [phone] 03/23/2020 14:17 Patient: JOY DENT Sex: F : 1940 Age: 80y Reason(s): CHF TRANSPORTATION: P IV? O2? Oxygen?(Yes) Room: E.PROGRESS AND PROCEDURESCourse of Care: 16:43 03/23/20. workup all in and reviewed, K slightly up, BNP elevated, 5816 today vs.3660 on 05-30-19, CXR shows CHF, we're treating accordingly, pt doing better, case discussed w , her agricultural engineer, who will admit 17:12 03/23/20. Joselin Alegria, DIRECTOR SKILLS hospitalist for Dr. Sotomayor, called back and will come and see pt in ER for admission; pt's BP was slightly so we increased her NTG paste to 1 in. Critical care performed (60 minutes). Time is exclusive of separately billable procedures. Time includes: direct patient care, patient reassessment, coordination of patient care, interpretation of data (laboratory data, chest xrays and prior electrocardiograms), medical consultation and documentation of patient care- see progress notes. Patient counseled in person regarding the patient's stable condition, test results, diagnosis and need for admission. Patient agrees with plan of care. Disposition: Condition: good and stable. Admit decision based on need for further evaluation, monitoring, telemetry, IV therapy and medications and stabilization of condition.CLINICAL IMPRESSION Acute mild systolic, left ventricular congestive heart failure.(Electronically signed by Siria Evans M.D. 03/23/2020 20:36) Name Value Range Interpretation Code Description Data Vivian rce(s) Supporting Document(s) ID Date Data Source [id number] 03/23/2020 02:25:00 PM [facility] for JOY DENT RN: [id number] VisitID: [id number] Date: 17:22Medication reconciliation request foaxed to remote solutions.(Electronically signed by Ramses Richard - 03/23/2020 17:22) Name Value Range Interpretation Code Description Data Vivian rce(s) Supporting Document(s) ID Date Data Source [id number] 03/23/2020 03:37:00 PM [facility] Name Value Range Interpretation Code Description Data Vivian rce(s) Supporting Document(s) Lipase [Enzymatic activity/volume] in Serum or Plasma 18 U/L 13 - 60 [facility] ID Date Data Source [id number] 03/23/2020 03:37:00 PM [facility] Name Value Range Interpretation Code Description Data Vivian rce(s) Supporting Document(s) COMPREHENSIVE METABOLIC PANEL [facility] COMPREHENSIVE METABOLIC PANEL Sodium [Moles/volume] in Serum or Plasma 139 mEq/L 134 - 153 [facility] Potassium [Moles/volume] in Serum or Plasma 5.3 mEq/L 3.6 - 5.0 H [facility] Chloride [Moles/volume] in Serum or Plasma 95 mEq/L 98 - 107 L [facility] Carbon dioxide, total [Moles/volume] in Serum or Plasma 38 MEQ/L 22 - 30 H [facility] Glucose [Mass/volume] in Serum or Plasma 149 MG/DL 65 - 110 H [facility] BUN 25 MG/DL 7 - 21 H [facility] al Creatinine [Mass/volume] in Serum or Plasma 1.3 MG/DL 0.7 - 1.5 [facility] BUN/CREAT 19 8 - 27 [facility] al Protein [Mass/volume] in Serum or Plasma 6.0 G/DL 6.3 - 8.2 L [facility] Albumin [Mass/volume] in Serum or Plasma 3.7 G/DL 3.9 - 5.0 L [facility] Globulin [Mass/volume] in Serum by calculation 2.3 GM/DL 2.4 - 3.2 L [facility] A/G RATIO 1.6 0.8 - 2.0 [facility] Calcium [Mass/volume] in Serum or Plasma 9.0 MG/DL 8.4 - 10.2 [facility] Bilirubin.total [Mass/volume] in Serum or Plasma 1.5 MG/DL 0.2 - 1.3 H [facility] Alkaline phosphatase [Enzymatic activity/volume] in Serum or Plasma 237 U/L 38 - 126 H [facility] Aspartate aminotransferase [Enzymatic activity/volume] in Serum or Plasma 36 U/L 5 - 40 [facility] Alanine aminotransferase [Enzymatic activity/volume] in Seru m or Plasma 15 U/L 7 - 56 [facility] Anion gap 3 in Serum or Plasma 6.0 mmol/L 8.0 - 16.0 L [facility]GE 80 yrs [facility] NON-AA [facility] 42 mL/min [facility] iggy AFR AMER GFR >60 [facility] Male GFR In terprentation 20-49 yrs >60 mL/min Normal 50-59 yrs >56 mL/min Normal 60-69 yrs >49 mL/min Normal 70-79yrs >42 mL/min Normal 80 and above >35 mL/min Normal Female GFR Interpretation 20-39 yrs >60 mL/min Normal 40-49 yrs >58 mL/min Normal 50-59 yrs >51 mL/min Normal 60-69 yrs >45 mL/min Normal 70-79 yrs >39 mL/min Normal 80 and above >32 mL/min Normal ID Date Data Source [id number] 03/23/2020 03:37:00 PM [facility] Name Value Range Interpretation Code Description Data Vivian rce(s) Supporting Document(s) BNP 5816 PG/ML 0 - 450 H [facility] ID Date Data Source [id number] 03/23/2020 03:33:00 PM [facility] Name Value Range Interpretation Code Description Data Vivian rce(s) Supporting Document(s) TROPONIN T <0.01 NG/ML 0.00 - 0.10 [facility] TROPONIN T0.1 ng/ml Recommended as the c linical threshold value forTroponin T. ID Date Data Source [id number] 03/23/2020 03:19:00 PM [facility] Name Value Range Interpretation Code Description Data Vivian rce(s) Supporting Document(s) Prothrombin time (PT) 26.5 SECONDS 11.0 - 15.5 H [facility] INR in Platelet poor plasma by Coagulation assay 2.40 0.93 - 1. 23 H [facility] aPTT in Blood by Coagulation assay 42.0 SECONDS 24.8 - 36.7 H [facility] \\BLDo\\INR INTERPRETATION\\BLDx\\ Therapeutic range for Coumadin and related oral anticoagulants. - International Normalized Ratio (INR): 2.0 - 3.0 for Venous Thrombosis, Pulmonary Embolus, Tissue heart valves, Acute ME Atrial Fibrillation, Valvular heart disease and recurrent Systemic Embolism. - International Normalized Ratio (INR): 2.5 - 3.5 for Mechanical Prosthetic valve. ID Date Data Source [id number] 03/23/2020 03:07:00 PM [facility] Name Value Range Interpretation Code Description Data Vivian rce(s) Supporting Document(s) CBC W/AUTOMATED DIFF [facility] COMPLETE BLOOD COUNT Leukocytes [#/volume] in Blood by Automated count 8.4 10^3/uL 4.2 - 1 1.0 [facility] Erythrocytes [#/volume] in Blood by Automated count 4.36 10^6/uL 4. 20 - 5.40 [facility] Hemoglobin [Mass/volume] in Blood 13.7 g/dL 12.0 - 16.0 [facility] Hematocrit [Volume Fraction] of Blood by Automated count 41.3 % 3 7.0 - 47.0 [facility] Erythrocyte mean corpuscular volume [Entitic volume] by Auto mated count 94.7 fL 81.0 - 101 [facility] Erythrocyte mean corpuscular hemoglobin [Entitic mass] by Automated count 31.4 pg 27.0 - 34.0 [facility] Erythrocyte mean corpuscular hemoglobin concentration [Mass/volume] by Automated count 33.2 g/dL 31.0 - 36.0 [facility] Erythrocyte distribution width [Ratio] by Automated count 17.7 % 11.5 - 14.5 H [facility] Platelets [#/volume] in Blood by Automated count 153 10^3/uL 150 - 45 0 [facility] Platelet mean volume [Entitic volume] in Blood by Automated count 11.6 fL 7.4 - 10.4 H [facility] Neutrophils/100 leukocytes in Blood by Automated count 74.0 % 37. 0 - 80.0 [facility] Lymphocytes/100 leukocytes in Blood by Manual count 13.7 % 25.0 - 40.0 L [facility] Monocytes/100 leukocytes in Blood by Automated count 8.5 % 3.0 - 8.0 H [facility] Eosinophils/100 leukocytes in Blood by Automated count 3.1 % 0.0 - 7.0 [facility] Basophils/100 leukocytes in Blood by Automated count 0.5 % 0.0 - 2.5 [facility] %IG 0.2 % 0.0 - 0.0 H [facility] %NRBC 0.0 % 0.0 - 0.0 [facility] al Neutrophils [#/volume] in Blood by Automated count 6.19 10^3/uL 2.00 - 6.90 [facility] Lymphocytes [#/volume] in Blood by Automated count 1.15 10^3/uL 0.60 - 3.40 [facility] Monocytes [#/volume] in Blood by Automated count 0.71 10^3/uL 0.00 - 0.90 [facility] Eosinophils [#/volume] in Blood by Automated count 0.26 10^3/uL 0.00 - 0.70 [facility] Basophils [#/volume] in Blood by Automated count 0.04 10^3/uL 0.00 - 0.20 [facility] #IG 0.02 10^3/uL 0.00 - 0.10 [facility] #NRBC 0.00 10^3/uL 0.00 - 0.00 [facility] MANUAL DIFF NOT INDICATED [facility] RBC MORPH NOT INDICATED [facility] ID Date Data Source [id number] 03/10/2020 10:57:00 AM EST [facility] ([facility] Name Value Range Interpretation Code Description Data Vivian rce(s) Supporting Document(s) PT 25.4 SEC 10.0-14.0 Above high normal [facility] ([facility] NORMAL RANGES Routine Non- Anticoagulant Therapy = 0.9 - 1.1 Routine Anticoagulat Therapy = 2.0 - 3.0 High Risk Anticoagulant Therapy = 3.0 - 4.5 Inr 2.1 # 0.9-1.1 Above high normal [facility] ([facility] NORMAL RANGES Routine Non- Anticoagulant Therapy = 0.9 - 1.1 Routine Anticoagulat Therapy = 2.0 - 3.0 High Risk Anticoagulant Therapy = 3.0 - 4.5 Comment Laboratory test result [facility] ([facility] NORMAL RANGES Routine Non- Anticoagulant Therapy = 0.9 - 1.1 Routine Anticoagulat Therapy = 2.0 - 3.0 High Risk Anticoagulant Therapy = 3.0 - 4.5 Recommendations [facility] NORMAL RANGES Routine Non- Anticoagulant Therapy = 0.9 - 1.1 Routine Anticoagulat Therapy = 2.0 - 3.0 High Risk Anticoagulant Therapy = 3.0 - 4.5 ID Date Data Source [id number] 02/04/2020 11:16:00 AM EDT [facility] ([facility] Name Value Range Interpretation Code Description Data Vivian rce(s) Supporting Document(s) Thyrotropin [Units/volume] in Serum or Plasma 3.625 ulU/mL 0.60-4.8 [facility] ([facility] ID Date Data Source [id number] 02/04/2020 11:16:00 AM EDT [facility] ([facility] Name Value Range Interpretation Code Description Data Vivian rce(s) Supporting Document(s) Glucose [Mass/volume] in Serum or Plasma 96 mg/dL 70-110 [facility] ([facility] CLASSIFICATION CHOLESTEROL FO R ADULTS CHILDREN/ADOLESCENTS* DESIRABLE: <200 MG/DL <170 MG/DL BORDER-LINE HIGH RISK: 200-239 MG/DL 170-199 MG/DL HIGH RISK: >240 MG/DL >200 MG/DL CLASS. FOR PRIMARY LDL CHOL PREVENTION: LDL CHOL-CHILD/ADOLESCENTS* DESIRABLE: <130 MG/DL <110 MG/DL BORDERLINE-HIGH RISK: 130-159 MG/DL 110-129 MG/DL HIGH RISK: >160 MG/DL >130 MG/DL *CHILDREN AND ADOLESCENTS REPRESENTS INDIVIDUALA AGED 2-19 YEARS EXCLUSIVE. Hemoglobin A1c/Hemoglobin.total in Blood 8.0 % 4.40-6.10 Above high normal [facility] ([facility] CLASSIFICATION CHOLESTEROL FO R ADULTS CHILDREN/ADOLESCENTS* DESIRABLE: <200 MG/DL <170 MG/DL BORDER-LINE HIGH RISK: 200-239 MG/DL 170-199 MG/DL HIGH RISK: >240 MG/DL >200 MG/DL CLASS. FOR PRIMARY LDL CHOL PREVENTION: LDL CHOL-CHILD/ADOLESCENTS* DESIRABLE: <130 MG/DL <110 MG/DL BORDERLINE-HIGH RISK: 130-159 MG/DL 110-129 MG/DL HIGH RISK: >160 MG/DL >130 MG/DL *CHILDREN AND ADOLESCENTS REPRESENTS INDIVIDUALA AGED 2-19 YEARS EXCLUSIVE. ID Date Data Source [id number] 02/04/2020 11:16:00 AM EDT [facility] ([facility] Name Value Range Interpretation Code Description Data Vivian rce(s) Supporting Document(s) Chol 88 mg/dL 0-200 [facility] ([facility] CLASSIFICATION CHOLESTEROL FO R ADULTS CHILDREN/ADOLESCENTS* DESIRABLE: <200 MG/DL <170 MG/DL BORDER-LINE HIGH RISK: 200-239 MG/DL 170-199 MG/DL HIGH RISK: >240 MG/DL >200 MG/DL CLASS. FOR PRIMARY LDL CHOL PREVENTION: LDL CHOL-CHILD/ADOLESCENTS* DESIRABLE: <130 MG/DL <110 MG/DL BORDERLINE-HIGH RISK: 130-159 MG/DL 110-129 MG/DL HIGH RISK: >160 MG/DL >130 MG/DL *CHILDREN AND ADOLESCENTS REPRESENTS INDIVIDUALA AGED 2-19 YEARS EXCLUSIVE. Trig 87 mg/dL 40-200 [facility] ([facility] CLASSIFICATION CHOLESTEROL FO R ADULTS CHILDREN/ADOLESCENTS* DESIRABLE: <200 MG/DL <170 MG/DL BORDER-LINE HIGH RISK: 200-239 MG/DL 170-199 MG/DL HIGH RISK: >240 MG/DL >200 MG/DL CLASS. FOR PRIMARY LDL CHOL PREVENTION: LDL CHOL-CHILD/ADOLESCENTS* DESIRABLE: <130 MG/DL <110 MG/DL BORDERLINE-HIGH RISK: 130-159 MG/DL 110-129 MG/DL HIGH RISK: >160 MG/DL >130 MG/DL *CHILDREN AND ADOLESCENTS REPRESENTS INDIVIDUALA AGED 2-19 YEARS EXCLUSIVE. LDL_C 37 Calc 75-129 Below low normal [facility] ( [facility] CLASSIFICATION CHOLESTEROL FO R ADULTS CHILDREN/ADOLESCENTS* DESIRABLE: <200 MG/DL <170 MG/DL BORDER-LINE HIGH RISK: 200-239 MG/DL 170-199 MG/DL HIGH RISK: >240 MG/DL >200 MG/DL CLASS. FOR PRIMARY LDL CHOL PREVENTION: LDL CHOL-CHILD/ADOLESCENTS* DESIRABLE: <130 MG/DL <110 MG/DL BORDERLINE-HIGH RISK: 130-159 MG/DL 110-129 MG/DL HIGH RISK: >160 MG/DL >130 MG/DL *CHILDREN AND ADOLESCENTS REPRESENTS INDIVIDUALA AGED 2-19 YEARS EXCLUSIVE. Cholesterol in HDL [Mass/volume] in Serum or Plasma 33 mg/dL 45-65 Below low normal [facility] ([facility] ) CLASSIFICATION CHOLESTEROL FO R ADULTS CHILDREN/ADOLESCENTS* DESIRABLE: <200 MG/DL <170 MG/DL BORDER-LINE HIGH RISK: 200-239 MG/DL 170-199 MG/DL HIGH RISK: >240 MG/DL >200 MG/DL CLASS. FOR PRIMARY LDL CHOL PREVENTION: LDL CHOL-CHILD/ADOLESCENTS* DESIRABLE: <130 MG/DL <110 MG/DL BORDERLINE-HIGH RISK: 130-159 MG/DL 110-129 MG/DL HIGH RISK: >160 MG/DL >130 MG/DL *CHILDREN AND ADOLESCENTS REPRESENTS INDIVIDUALA AGED 2-19 YEARS EXCLUSIVE. Cho/HDL Ratio 2.7 CALC [facility] ([facility] CLASSIFICATION CHOLESTEROL FO R ADULTS CHILDREN/ADOLESCENTS* DESIRABLE: <200 MG/DL <170 MG/DL BORDER-LINE HIGH RISK: 200-239 MG/DL 170-199 MG/DL HIGH RISK: >240 MG/DL >200 MG/DL CLASS. FOR PRIMARY LDL CHOL PREVENTION: LDL CHOL-CHILD/ADOLESCENTS* DESIRABLE: <130 MG/DL <110 MG/DL BORDERLINE-HIGH RISK: 130-159 MG/DL 110-129 MG/DL HIGH RISK: >160 MG/DL >130 MG/DL *CHILDREN AND ADOLESCENTS REPRESENTS INDIVIDUALA AGED 2-19 YEARS EXCLUSIVE. ID Date Data Source [id number] 02/04/2020 11:16:00 AM EDT [facility] ([facility] Name Value Range Interpretation Code Description Data Vivian rce(s) Supporting Document(s) Hemoglobin A1c/Hemoglobin.total in Blood 8.0 % 4.40-6.10 Above high normal MEDENT ([facility] CLASSIFICATION CHOLESTEROL FO R ADULTS CHILDREN/ADOLESCENTS* DESIRABLE: <200 MG/DL <170 MG/DL BORDER-LINE HIGH RISK: 200-239 MG/DL 170-199 MG/DL HIGH RISK: >240 MG/DL >200 MG/DL CLASS. FOR PRIMARY LDL CHOL PREVENTION: LDL CHOL-CHILD/ADOLESCENTS* DESIRABLE: <130 MG/DL <110 MG/DL BORDERLINE-HIGH RISK: 130-159 MG/DL 110-129 MG/DL HIGH RISK: >160 MG/DL >130 MG/DL *CHILDREN AND ADOLESCENTS REPRESENTS INDIVIDUALA AGED 2-19 YEARS EXCLUSIVE. ID Date Data Source [id number] 02/04/2020 11:15:00 AM EDT MEDENT ([facility] Name Value Range Interpretation Code Description Data Vivian rce(s) Supporting Document(s) PT 30.2 SEC 10.0-14.0 Above high normal MEDENT ([facility] NORMAL RANGES Routine Non- Anticoagulant Therapy = 0.9 - 1.1 Routine Anticoagulat Therapy = 2.0 - 3.0 High Risk Anticoagulant Therapy = 3.0 - 4.5 Inr 2.5 # 0.9-1.1 Above high normal MEDENT ([facility] NORMAL RANGES Routine Non- Anticoagulant Therapy = 0.9 - 1.1 Routine Anticoagulat Therapy = 2.0 - 3.0 High Risk Anticoagulant Therapy = 3.0 - 4.5 Recommendations Laboratory test result MEDENT ([facility] NORMAL RANGES Routine Non- Anticoagulant Therapy = 0.9 - 1.1 Routine Anticoagulat Therapy = 2.0 - 3.0 High Risk Anticoagulant Therapy = 3.0 - 4.5 Comment Laboratory test result MEDENT ([facility] NORMAL RANGES Routine Non- Anticoagulant Therapy = 0.9 - 1.1 Routine Anticoagulat Therapy = 2.0 - 3.0 High Risk Anticoagulant Therapy = 3.0 - 4.5 Procedure Social History Code Duration Value Status Description Data Source(s ) Smoking 02/15/2021 12:00:00 AM EDT Never Smoker completed Never S moker eCW1 ([facility]) Smoking 02/01/2021 12:00:00 AM EDT Never Smoker completed Never S moker eCW1 ([facility]) Smoking 02/01/2021 12:00:00 AM EDT Never Smoker completed Never S moker eCW1 ([facility]) Smoking 2021 12:00:00 AM EDT Patient has never smoked co mpleted Patient has never smoked MED[facility] ([facility]) Alcohol intake 12/17/2020 12:00:00 AM EDT Current non-d park of alcohol (finding) completed Current non-drinker of alcohol (finding) [facility] Smoking 11/27/2020 12:00:00 AM EDT Non-smoker, Non-drink er, Non-drug User completed Non-smoker, Non-drinker, Non-drug User MEDENT ([facility]) Alcohol intake 09/14/2020 12:00:00 AM EDT Current non-d park of alcohol (finding) completed Current non-drinker of alcohol (finding) [facility] Alcohol intake 06/12/2020 12:00:00 AM EST No completed [facility] Smoking 06/12/2020 12:00:00 AM EST Never smoker completed Never s moker [facility] Smoking 01/09/2020 12:00:00 AM EDT Patient has never smoked co mpleted Patient has never smoked [facility] ([facility] ) Vital Signs ID Date Data Source UNK Name Value Range Interpretation Code Description Data Source(s) Respiratory rate 20 /min 20 /min eCW1 ([facility]) Body weight 189 [lb_av] 189 [lb_av] eCW1 ([facility]) Body weight 85.73 kg 85.73 kg eCW1 ([facility]) Body height 61 [in_i] 61 [in_i] eCW1 ([facility]) Body mass index (BMI) [Ratio] 35.71 kg/m2 35.71 kg/m2 eCW1 ([facility]) Heart rate 68 /min 68 /min eCW1 ([facility]) Body temperature 97.8 [degF] 97.8 [degF] eCW1 ( [facility]) Systolic blood pressure 146 mm[Hg] 146 mm[Hg] e CW1 ([facility]) Diastolic blood pressure 57 mm[Hg] 57 mm[Hg] eCW1 ([facility]) Body weight 189 [lb_av] 189 [lb_av] eCW1 ([facility]) Body weight 85.73 kg 85.73 kg eCW1 ([facility]) Body height 61 [in_i] 61 [in_i] eCW1 ([facility]) Body mass index (BMI) [Ratio] 35.71 kg/m2 35.71 kg/m2 eCW1 ([facility]) Heart rate 76 /min 76 /min eCW1 ([facility]) Respiratory rate 20 /min 20 /min eCW1 ([facility]) Body temperature 98.4 [degF] 98.4 [degF] eCW1 ( [facility]) Systolic blood pressure 93 mm[Hg] 93 mm[Hg] e CW1 ([facility]) Diastolic blood pressure 40 mm[Hg] 40 mm[Hg] eCW1 ([facility]) Systolic blood pressure 125 mm[Hg] 125 mm[Hg] M EDENT ([facility]) Body mass index (BMI) [Ratio] 34.0 kg/m2 34.0 k g/m2 MED[facility] ([facility]) Diastolic blood pressure 60 mm[Hg] 60 mm[Hg] MED[facility] ([facility]) Heart rate 64 /min 64 /min [facility] ([facility] Body height 61 [in_i] 61 [in_i] [facility] ([facility] 5'1" Body weight 180.00 [lb_av] 180.00 [lb_av] MEDEN T ([facility]) Body weight 81.648 kg 81.648 kg [facility] ([facility]) Systolic blood pressure 151 mm[Hg] 151 mm[Hg] [facility] Body temperature 37.11 Jadyn 37.11 Jadyn [facility] Diastolic blood pressure 58 mm[Hg] 58 mm[Hg] [facility] Respiratory rate 18 /min 18 /min [facility] Heart rate 60 /min 60 /min [facility] Oxygen saturation in Arterial blood by Pulse oximetry 99 % 99 % [facility] Oxygen saturation in Arterial blood by Pulse oximetry 99 % 99 % MED[facility] ([facility]) Respiratory rate 18 /min 18 /min MED[facility] ( [facility]) Heart rate 60 /min 60 /min [facility] ([facility] Body temperature 98.8 [degF] 98.8 [degF] [facility] ([facility]) Body weight 81.7 kg 81.7 kg [facility] Body mass index (BMI) [Ratio] 34.03 kg/m2 34.03 kg/m2 [facility] Body height 154.9 cm 154.9 cm [facility] Body height 60.98 [in_i] 60.98 [in_i] [facility] ([facility] 5'0.98" Body weight 180.06 [lb_av] 180.06 [lb_av] MEDEN T ([facility]) Body weight 81.700 kg 81.700 kg [facility] ([facility] Body mass index (BMI) [Ratio] 34.03 kg/m2 34.03 kg/m2 [facility] ([facility]) Body height 60 [in_i] 60 [in_i] MED[facility] (Bolivar Sotomayor MD) 5'0" Body temperature 98.1 [degF] 98.1 [degF] [facility] (Bolivar Sotomayor MD) Systolic blood pressure 94 mm[Hg] 94 mm[Hg] M EDENT (Bolivar Sotomayor MD) by palp Diastolic blood pressure 48 mm[Hg] 48 mm[Hg] MED[facility] (Bolivar Sotomayor MD) by palp Heart rate 60 /min 60 /min MED[facility] (Bolivar Sotomayor MD) Oxygen saturation in Arterial blood by Pulse oximetry 98 % 98 % [facility] (Bolivar Sotomayor MD) O2@2 L Respiratory rate 22 /min 22 /min MEDENT ( Bolivar Sotomayor MD) Systolic blood pressure 108 mm[Hg] 108 mm[Hg] M EDENT ([facility]) Diastolic blood pressure 60 mm[Hg] 60 mm[Hg] [facility] ([facility]) Body surface area Derived from formula 1.73 m2 1.73 m2 [facility] ([facility]) Body height 58 [in_i] 58 [in_i] MED[facility] ([facility]) 4'10" Body weight 178.00 [lb_av] 178.00 [lb_av] MEDEN T ([facility]) Body mass index (BMI) [Ratio] 37.2 kg/m2 37.2 k g/m2 [facility] ([facility]) Body height 60 [in_i] 60 [in_i] MED[facility] (Bolivar Sotomayor MD) 5'0" Body temperature 97.0 [degF] 97.0 [degF] MED[facility] (Bolivar Sotomayor MD) Systolic blood pressure 105 mm[Hg] 105 mm[Hg] M EDENT (Bolivar Sotomayor MD) Diastolic blood pressure 43 mm[Hg] 43 mm[Hg] MED[facility] (Bolivar Sotomayor MD) Heart rate 60 /min 60 /min [facility] (Bolivar Sotomayor MD) Oxygen saturation in Arterial blood by Pulse oximetry 96 % 96 % [facility] (Bolivar Sotomayor MD) Diastolic blood pressure 67 mm[Hg] 67 mm[Hg] MED[facility] (Bolivar Sotomayor MD) Heart rate 60 /min 60 /min [facility] (Bolivar Sotomayor MD) Oxygen saturation in Arterial blood by Pulse oximetry 98 % 98 % MED[facility] (Bolivar Sotomayor MD) Body height 60 [in_i] 60 [in_i] MED[facility] (Bolivar Sotomayor MD) 5'0" Body weight 200.00 [lb_av] 200.00 [lb_av] MEDEN T (Bolivar Sotomayor MD) stated Body mass index (BMI) [Ratio] 39.1 kg/m2 39.1 k g/m2 [facility] (Bolivar Sotomayor MD) Body temperature 97.7 [degF] 97.7 [degF] MED[facility] (Bolivar Sotomayor MD) Systolic blood pressure 151 mm[Hg] 151 mm[Hg] M EDENT (Bolivar Sotomayor MD) Body weight 90.720 kg 90.720 kg [facility] ([facility] Body mass index (BMI) [Ratio] 37.8 kg/m2 37.8 k g/m2 [facility] ([facility]) Heart rate 80 /min 80 /min [facility] ([facility] Body temperature 96.4 [degF] 96.4 [degF] [facility] ([facility]) Body height 61 [in_i] 61 [in_i] [facility] ([facility] 5'1" Body weight 200.00 [lb_av] 200.00 [lb_av] MEDEN T ([facility]) Systolic blood pressure 120 mm[Hg] 120 mm[Hg] [facility] Body temperature 96.2 [degF] 96.2 [degF] MED[facility] ([facility]) Body height 61 [in_i] 61 [in_i] [facility] ([facility] 5'1" Systolic blood pressure 120 mm[Hg] 120 mm[Hg] [facility] Diastolic blood pressure 70 mm[Hg] 70 mm[Hg] [facility] Body temperature 36.67 Jadyn 36.67 Jadyn [facility] Respiratory rate 16 /min 16 /min [facility] Oxygen saturation in Arterial blood by Pulse oximetry 98 % 98 % [facility] Heart rate 62 /min 62 /min [facility] Body height 154.9 cm 154.9 cm [facility] Body weight 85.73 kg 85.73 kg [facility] Body mass index (BMI) [Ratio] 35.71 kg/m2 35.71 kg/m2 [facility] Body temperature 97.7 [degF] 97.7 [degF] MEDENT (Bolivar Sotomayor MD) Systolic blood pressure 92 mm[Hg] 92 mm[Hg] M ALLISON (Bolivar Sotomayor MD) Diastolic blood pressure 68 mm[Hg] 68 mm[Hg] YARI (Bolivar Sotomayor MD) Oxygen saturation in Arterial blood by Pulse oximetry 90 % 90 % YARI (Bolivar Sotomayor MD) Heart rate 60 /min 60 /min MEDROSARIO (Bolivar Sotomayor MD) Body temperature 96.8 [degF] 96.8 [degF] YARI (Bolivar Sotomayor MD) Systolic blood pressure 131 mm[Hg] 131 mm[Hg] M ALLISON (Bolivar Sotomayor MD) Diastolic blood pressure 61 mm[Hg] 61 mm[Hg] YARI (Bolivar Sotomayor MD) Oxygen saturation in Arterial blood by Pulse oximetry 93 % 93 % YARI (Bolivar Sotomayor MD) 2 L N/C Respiratory rate 20 /min 20 /min YARI ( Bolivar Sotomayor MD) Body height 60 [in_i] 60 [in_i] JULISSAENT (Bolivar Sotomayor MD) 5'0" Body weight 190.00 [lb_av] 190.00 [lb_av] MEDEN T (Bolivar Sotomayor MD) Body mass index (BMI) [Ratio] 37.1 kg/m2 37.1 k g/m2 YARI (Bolivar Sotomayor MD) Systolic blood pressure 220 mm[Hg] 220 mm[Hg] Love COOPER ([facility]) NC/doppler Body temperature 96.5 [degF] 96.5 [degF] YARI ([facility]) Body height 61 [in_i] 61 [in_i] MEDENT ([facility]) 5'1" Body weight 184.00 [lb_av] 184.00 [lb_av] MEDEN T ([facility]) Body weight 83.462 kg 83.462 kg [facility] ([facility]) Body mass index (BMI) [Ratio] 34.8 kg/m2 34.8 k g/m2 MED[facility] ([facility]) Diastolic blood pressure 72 mm[Hg] 72 mm[Hg] MED[facility] (Bolivar Sotomayor MD) Heart rate 61 /min 61 /min [facility] (Bolivar Sotomayor MD) Oxygen saturation in Arterial blood by Pulse oximetry 98 % 98 % [facility] (Bolivar Sotomayor MD) Body weight 186.00 [lb_av] 186.00 [lb_av] MEDEN T (Bolivar Sotomayor MD) Body mass index (BMI) [Ratio] 36.3 kg/m2 36.3 k g/m2 [facility] (Bolivar Sotomayor MD) Body temperature 97.7 [degF] 97.7 [degF] [facility] (Bolivar Sotomayor MD) Systolic blood pressure 134 mm[Hg] 134 mm[Hg] M ALLISON (Bolivar Sotomayor MD) Body height 60 [in_i] 60 [in_i] MED[facility] (Bolivar Sotomayor MD) 5'0" Body height 60 [in_i] 60 [in_i] MEDENT (Bolivar Sotomayor MD) 5'0" Body weight 190.00 [lb_av] 190.00 [lb_av] MEDEN T (Bolivar Sotomayor MD) reported by patient Body mass index (BMI) [Ratio] 37.1 kg/m2 37.1 k g/m2 [facility] (Bolivar Sotomayor MD) Body temperature 97.5 [degF] 97.5 [degF] MED[facility] (Bolivar Sotomayor MD) Systolic blood pressure 118 mm[Hg] 118 mm[Hg] M ALLISON (Bolivar Sotomayor MD) Diastolic blood pressure 68 mm[Hg] 68 mm[Hg] MED[facility] (Bolivar Sotomayor MD) Heart rate 60 /min 60 /min [facility] (Bolivar Sotomayor MD) Oxygen saturation in Arterial blood by Pulse oximetry 97 % 97 % [facility] (Bolivar Sotomayor MD) Systolic blood pressure 142 mm[Hg] 142 mm[Hg] [facility] pt moving arm during reading Diastolic blood pressure 106 mm[Hg] 106 mm[Hg] [facility] pt moving arm during reading Heart rate 60 /min 60 /min [facility] Body temperature 36.56 Jadyn 36.56 Jadyn [facility] Respiratory rate 18 /min 18 /min [facility] Oxygen saturation in Arterial blood by Pulse oximetry 91 % 91 % [facility] Respiratory rate 18 /min 18 /min MEDENT ( Bolivar Sotomayor MD) Body height 60 [in_i] 60 [in_i] MED[facility] (Bolivar Sotomayor MD) 5'0" Body weight 190.12 [lb_av] 190.12 [lb_av] MEDEN T (Bolivar Sotomayor MD) Body mass index (BMI) [Ratio] 37.1 kg/m2 37.1 k g/m2 [facility] (Bolivar Sotomayor MD) Body temperature 97.2 [degF] 97.2 [degF] [facility] (Bolivar Sotomayor MD) Heart rate 60 /min 60 /min [facility] (Bolivar Sotomayor MD) Oxygen saturation in Arterial blood by Pulse oximetry 99 % 99 % [facility] (Bolivar Sotomayor MD) Body height 60 [in_i] 60 [in_i] MED[facility] (Bolivar Sotomayor MD) 5'0" Body weight 208.00 [lb_av] 208.00 [lb_av] MEDEN T (Bolivar Sotomayor MD) Body mass index (BMI) [Ratio] 40.6 kg/m2 40.6 k g/m2 JULISSAENT (Bolivar Sotomayor MD) Body temperature 97.0 [degF] 97.0 [degF] [facility] (Bolivar Sotomayor MD) Systolic blood pressure 110 mm[Hg] 110 mm[Hg] M EDENT (Bolivar Sotomayor MD) Diastolic blood pressure 62 mm[Hg] 62 mm[Hg] [facility] (Bolivar Sotomayor MD) Heart rate 69 /min 69 /min [facility] (Bolivar Sotomayor MD) Oxygen saturation in Arterial blood by Pulse oximetry 88 % 88 % [facility] (Bolivar Sotomayor MD) 2 L/Min Systolic blood pressure 100 mm[Hg] 100 mm[Hg] M EDENT ([facility], ) Diastolic blood pressure 60 mm[Hg] 60 mm[Hg] MEDENT ([facility], ) Heart rate 64 /min 64 /min MEDENT ([facility], ) Respiratory rate 20 /min 20 /min MEDENT ( [facility], ) Respiratory rate 18 /min 18 /min MEDENT ( [facility] Systolic blood pressure 142 mm[Hg] 142 mm[Hg] EDENT ([facility] Diastolic blood pressure 78 mm[Hg] 78 mm[Hg] MED[facility] ([facility] Body temperature 98.4 [degF] 98.4 [degF] MED[facility] ([facility] Heart rate 88 /min 88 /min MED[facility] ([facility] Body height 61 [in_i] 61 [in_i] MEDENT ([facility] 5'1" Body weight 207.00 [lb_av] 207.00 [lb_av] MEDEN T ([facility] [place] body weight 105 [lb_av] 105 [lb_av] MEDEN T ([facility] Body mass index (BMI) [Ratio] 39.1 kg/m2 39.1 k g/m2 MED[facility] ([facility] Oxygen saturation in Arterial blood by Pulse oximetry 93 % 93 % YARI ([facility] (On O2 @ 2 LPM NC) ID Date Data Source [id number] 10/26/2020 08:34:48 AM EDT [facility] Name Value Range Interpretation Code Description Data Source(s) WEIGHT RECORDED 197.90 pounds 197.90 pounds [facility] Height 61 Inches 061 Inches [facility] Hospital ID Date Data Source [id number] 06/02/2020 09:05:15 AM [facility] Name Value Range Interpretation Code Description Data Source(s) WEIGHT RECORDED 192.[address] [facility] Height 61 Inches 061 Inches [facility] Hospital WEIGHT RECORDED 203.[address] [facility] Height 61 Inches 061 Inches [facility] Hospital ID Date Data Source [id number] 04/07/2020 09:11:50 AM [facility] Name Value Range Interpretation Code Description Data Source(s) WEIGHT RECORDED 212.[address] [facility] Height 61 Inches 061 Inches [facility] Hospital WEIGHT RECORDED 221.00 pounds 221.00 pounds [facility] Height 61 Inches 061 Inches [facility] Patient Treatment Plan of Care Planned Activity Planned Date Details Description Data Source (s) Insulin Glargine 100 UNT/ML Injectable Solution [Lantu s] 12/19/2020 09:00:00 PM EDT [facility] Amoxicillin 875 MG / Clavulanate 125 MG Oral Tablet 12/20/19 12:00:00 AM EDT [facility] Oxycodone Hydrochloride 5 MG Oral Tablet 12/19/2020 12:00:00 AM EDT [facility] Acetaminophen 500 MG Oral Tablet 12/18/2020 11:00:00 AM EDT [facility] Nitroglycerin 0.4 MG Sublingual Tablet 12/17/2020 01:55:32 PM EDT [facility] Albuterol 0.83 MG/ML Inhalant Solution 12/17/2020 01:55:14 PM EDT [facility] Bisacodyl 10 MG Rectal Suppository 12/17/2020 01:18:58 PM EDT [facility] ondansetron (ZOFRAN) injection 4 mg 12/17/2020 01:18:58 PM EDT [facility] sodium chloride 0.9% (NS) infusion 09/14/2020 02:00:00 PM EDT [facility] torsemide 10 MG Oral Tablet [facility] quetiapine 25 MG Oral Tablet [facility]
[2021-02-20 21:54] LABS: BASO % 0.1 % (0.0-1.0); HEMATOCRIT 32.1 % (36.0-47.0); HEMOGLOBIN 10.5 g/dl (12.0-15.5); LYMPH # 1.2 10^3/uL (1.5-5.0); LYMPH % 15.8 % (24.0-44.0); MEAN CORPUSCULAR HEMOGLOBIN 31.2 pg (27.0-33.0); MEAN CORPUSCULAR HGB CONC 32.7 g/dl (32.0-36.5); MEAN CORPUSCULAR VOLUME 95.3 fl (80.0-96.0); MONO # 0.9 10^3/uL (0.0-0.8); MONO % 11.8 % (2.0-8.0); NEUTROPHILS # 5.4 10^3/uL (1.5-8.5); PLATELET COUNT, AUTOMATED 124 10^3/uL (150-450); RED BLOOD COUNT 3.37 10^6/uL (4.00-5.40); WHITE BLOOD COUNT 7.5 10^3/uL (4.0-10.0)
--- OUTSIDE RECORDS SUMMARY | 2021-02-20 21:58 | CCD ---
Author Author [facility] Address Unknown Phone Unavailable Care Team Providers Care Marina Porter Name Role Phone KIRSCHMAN, L JOSELIN SUPERVISOR COLOR PASTE MIXING Unavailable Unavailable KIRSCHMAN, L JOSELIN SUPERVISOR COLOR PASTE MIXING Unavailable Unavailable KIRSCHMAN, L JOSELIN SUPERVISOR COLOR PASTE MIXING Unavailable Unavailable KIRSCHMAN, L JOSELIN SUPERVISOR COLOR PASTE MIXING Unavailable Unavailable KIRSCHMAN, L JOSELIN SUPERVISOR COLOR PASTE MIXING Unavailable Unavailable KIRSCHMAN, L JOSELIN SUPERVISOR COLOR PASTE MIXING Unavailable Unavailable KIRSCHMAN, L JOSELIN SUPERVISOR COLOR PASTE MIXING Unavailable Unavailable KIRSCHMAN, L JOSELIN SUPERVISOR COLOR PASTE MIXING Unavailable Unavailable KIRSCHMAN, L JOSELIN SUPERVISOR COLOR PASTE MIXING Unavailable Unavailable KIRSCHMAN, L JOSELIN SUPERVISOR COLOR PASTE MIXING Unavailable Unavailable KIRSCHMAN, L JOSELIN SUPERVISOR COLOR PASTE MIXING Unavailable Unavailable KIRSCHMAN, L JOSELIN SUPERVISOR COLOR PASTE MIXING Unavailable Unavailable KIRSCHMAN, L JOSELIN SUPERVISOR COLOR PASTE MIXING Unavailable Unavailable KIRSCHMAN, L JOSELIN SUPERVISOR COLOR PASTE MIXING Unavailable Unavailable KIRSCHMAN, L JOSELIN SUPERVISOR COLOR PASTE MIXING Unavailable Unavailable KIRSCHMAN, L JOSELIN SUPERVISOR COLOR PASTE MIXING Unavailable Unavailable KIRSCHMAN, L JOSELIN SUPERVISOR COLOR PASTE MIXING Unavailable Unavailable KIRSCHMAN, L JOSELIN SUPERVISOR COLOR PASTE MIXING Unavailable Unavailable KIRSCHMAN, L JOSELIN SUPERVISOR COLOR PASTE MIXING Unavailable Unavailable KIRSCHMAN, L JOSELIN SUPERVISOR COLOR PASTE MIXING Unavailable Unavailable KIRSCHMAN, L JOSELIN SUPERVISOR COLOR PASTE MIXING Unavailable Unavailable KIRSCHMAN, L JOSELIN SUPERVISOR COLOR PASTE MIXING Unavailable Unavailable KIRSCHMAN, L JOSELIN SUPERVISOR COLOR PASTE MIXING Unavailable Unavailable KIRSCHMAN, L JOSELIN SUPERVISOR COLOR PASTE MIXING Unavailable Unavailable KIRSCHMAN, L JOSELIN SUPERVISOR COLOR PASTE MIXING Unavailable Unavailable KIRSCHMAN, L JOSELIN SUPERVISOR COLOR PASTE MIXING Unavailable Unavailable KIRSCHMAN, L JOSELIN SUPERVISOR COLOR PASTE MIXING Unavailable Unavailable KIRSCHMAN, L JOSELIN SUPERVISOR COLOR PASTE MIXING Unavailable Unavailable KIRSCHMAN, L JOSELIN SUPERVISOR COLOR PASTE MIXING Unavailable Unavailable KIRSCHMAN, L JOSELIN SUPERVISOR COLOR PASTE MIXING Unavailable Unavailable KIRSCHMAN, L JOSELIN SUPERVISOR COLOR PASTE MIXING Unavailable Unavailable KIRSCHMAN, L JOSELIN SUPERVISOR COLOR PASTE MIXING Unavailable Unavailable KIRSCHMAN, L JOSELIN SUPERVISOR COLOR PASTE MIXING Unavailable Unavailable KIRSCHMAN, L JOSELIN SUPERVISOR COLOR PASTE MIXING Unavailable Unavailable KIRSCHMAN, L JOSELIN SUPERVISOR COLOR PASTE MIXING Unavailable Unavailable KIRSCHMAN, L JOSELIN SUPERVISOR COLOR PASTE MIXING Unavailable Unavailable KIRSCHMAN, L JOSELIN SUPERVISOR COLOR PASTE MIXING Unavailable Unavailable KIRSCHMAN, L JOSELIN SUPERVISOR COLOR PASTE MIXING Unavailable Unavailable KIRSCHMAN, L JOSELIN SUPERVISOR COLOR PASTE MIXING Unavailable Unavailable KIRSCHMAN, L JOSELIN SUPERVISOR COLOR PASTE MIXING Unavailable Unavailable KIRSCHMAN, L JOSELIN SUPERVISOR COLOR PASTE MIXING Unavailable Unavailable KIRSCHMAN, L JOSELIN SUPERVISOR COLOR PASTE MIXING Unavailable Unavailable KIRSCHMAN, L JOSELIN SUPERVISOR COLOR PASTE MIXING Unavailable Unavailable KIRSCHMAN, L JOSELIN SUPERVISOR COLOR PASTE MIXING Unavailable Unavailable KIRSCHMAN, L JOSELIN SUPERVISOR COLOR PASTE MIXING Unavailable Unavailable KIRSCHMAN, L JOSELIN SUPERVISOR COLOR PASTE MIXING Unavailable Unavailable KIRSCHMAN, L JOSELIN SUPERVISOR COLOR PASTE MIXING Unavailable Unavailable Trickey, J Sol PA Unavailable [...] MAQBOOL BOLIVAR MD Unavailable Unavailable MANUEL, MAQBOOL BOILVAR MD Unavailable Unavailable MANUEL, MAQBOOL BOLIVAR MD [...] Unavailable MANUEL, MAQBOOL BOLIVAR MD Unavailable Unavailable MNAUEL, MAQBOOL BOLIVAR MD Unavailable Unavailable MANUEL, MAQBOOL [...] MAQBOOL BOLIVAR MD Unavailable Unavailable MANUEL, MAQBOOL BOILVAR MD Unavailable Unavailable MANUEL, MAQBOOL BOLIVAR MD [...] Unavailable Calista, N Bandar MD Unavailable Unavailable Calsita N Bandar MD Unavailable Unavailable Calista, N [...] Unavailable Calitsa N Bandar MD Unavailable Unavailable Tiffaine Grigsby Bandar MD Unavailable Unavailable Tiffanie Grigsby [...] Unavailable MANUEL, MAQBOOL BOLIVAR MD Unavailable Unavailable MANULE, MAQBOOL BOLIVAR MD Unavailable Unavailable MANUEL, MAQBOOL [...] Unavailable MANUEL, MAQBOOL BOLIVAR MD Unavailable Unavailable MANEUL, MAQBOOL BOLIVAR MD Unavailable Unavailable MANUEL, MAQBOOL [...] MAQBOOL BOLIVAR MD Unavailable Unavailable Sandy Zamora COLLEGE ADMISSIONS COUNSELOR Unavailable Unavailable TURRIN, SIRIA Unavailable Unavailable TURRIN, SIRIA Unavailable Unavailable TURRIN, SRIIA Unavailable Unavailable TURRIN, SIRIA Unavailable Unavailable Tiffanie [...] Unavailable Unavailable Tiffanie Grigsby MD Unavailable Unavailable Tifafnie Grigsby MD Unavailable Unavailable Tiffanie Grigsby MD [...] Unavailable Calista, N Bandar MD Unavailable Unavailable Cailsta, N Bandar MD Unavailable Unavailable Calista, N Bandar MD Unavailable Unavailable Calista, N Bandar MD Unavailable Unavailable Calista, N Bandar MD Unavailable Unavailable Calista, N Bandar MD Unavailable Unavailable Calista, N Bandar MD Unavailable Unavailable Calista, N Bandar MD Unavailable Unavailable Calista, N Bandar MD Unavailable Unavailable Calista, N Bandar MD Unavailable Unavailable Calista, N Bandar MD Unavailable Unavailable Fish, J Akash Unavailable [...] Unavailable Unavailable Randy Lopez MD Unavailable Unavailable Jessica, Randy Deal MD Unavailable Unavailable Lopez, Randy Deal MD Unavailable Unavailable Jessica, Randy Deal MD Unavailable Unavailable Jessica, Randy Deal MD Unavailable Unavailable Jessica, Randy Deal MD Unavailable Unavailable Jessica, Randy Deal MD Unavailable Unavailable Jessica, Randy eDal MD Unavailable Unavailable Jessica, Randy Deal MD Unavailable Unavailable Lopez, Randy Deal MD Unavailable Unavailable Fish, J Akash Unavailable [...] Unavailable Unavailable Charlie EVANS MD Unavailable Unavailable hCarlie EVANS MD Unavailable Unavailable Charlie EVANS MD Unavailable Unavailable Charlie EVANS MD Unavailable Unavailable Charlie EVANS MD Unavailable Unavailable Charlie EVANS MD Unavailable Unavailable Charlie EVANS MD Unavailable Unavailable Charlie EVANS MD Unavailable Unavailable Charlie EVANS MD Unavailable Unavailable Charlie EVANS MD Unavailable Unavailable Charlie EVANS MD Unavailable Unavailable Charlie EVANS MD Unavailable Unavailable Charlie EVANS MD Unavailable Unavailable ERICK, S AYMAN MD [...] is protected by Article 27-F of the [facility] Public Health law. If you continue you may have access to information: Regarding HIV / AIDS; Provided by facilities licensed or operated by the [facility] Office of Mental Health; or Provided by the [facility] Office for People With Developmental Disabilities. If such information is present, then the following [facility] mandated warning applies: This information has been [...] law may result in a fine or snf sentence or both. A general authorization for the release of medical or other information is NOT sufficient authorization for further disc losure. Allergies and Adverse Reactions Type Description Substance Reaction Status Data Source(s ) Propensity to adverse reactions ALOE VERA ALOE VERA [facility] Propensity to adverse reactions PENICILLINS (CLASS) PENICILLINS (CLAS S) [facility] Family History Family Member Name Family Member Gender Family Member Status Date o f Status Description Data Source(s) Unknown Male Problem MEDENT ([facility]) () Unknown Male Problem MEDENT ([facility] () Encounters Encounter Providers Location Date Indications Data Source(s ) ([id number]) For Template [place] [address] [place] [address] 02/10/2021 12:00:00 AM EDT eCW1 ([facility]) Unknown [address] [facility] [address] 02/02/2021 12:00:00 AM EDT eCW1 ([facility]) (WND NP120) New Patient 120 Min [address] [place] [address] 02/01/2021 12:00:00 AM EDT eCW1 ([facility]) Outpatient Attender: Toyin Lopez MD Main Office 2021 09:30:00 AM EDT MEDENT ([facility]) Unknown [address] [facility] [address] 12/24/2020 12:00:00 AM EDT eCW1 ([facility]) Inpatient Attender: Toyin Lopez MDAdmitter: Toyin cisneros MD [id number] 12/17/2020 11:58:00 AM EDT - 12/19/2020 05:09:00 PM EDT [facility] Patient discharged. 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) Outpatient Attender: Bandar Grigsby MD Main Office 11/23/2020 10:00:00 AM EDT MEDENT ([facility]) Outpatient Attender: BOLIVAR SOTOMAYOR MD [facility] 11/19 11:15:00 AM EDT MEDENT ([facility]ar Sotomayor MD) Outpatient Attender: BOLIVAR SOTOMAYOR MD [facility] 10/20 01:15:00 PM EDT MEDENT ([facility] Sotomay[facility]) Outpatient Attender: Bandar Grigsby MD Main Office 10/14/2020 10:15:00 AM EDT MEDENT ([facility]) Inpatient Attender: BOLIVAR Temple george: AMARA MACIAS MDConsultant: Akash Cm 10/09/2020 03:14:00 PM EDT - 10/13/2020 01:00:00 PM EDT [facility] Patient discharged. Emergency Attender: AMARA MACIAS MD 10/09/2020 12:19:00 PM EDT - 10/09/2020 03:14:00 PM EDT [facility] Outpatient Attender: Bandar Grigsby MD Main Office 09/23/2020 10:15:00 AM EDT MEDENT ([facility]) Outpatient Attender: BOLIVAR SOTOMAYOR MD Medical [facility] 09/10 01:30:00 PM EDT MEDENT ([facility]) Outpatient Attender: Mary WEST 10:08:13 AM EDT - 09/09/2020 10:25:46 AM EDT [facility] ([facility] ) Outpatient Attender: Bandar Grigsby MDConsultant: Akash Cm 09/04/2020 10:36:00 AM EDT - 09/04/2020 11:36:00 AM EDT [facility] Outpatient Attender: Toyin Lopez MDAdmitter: Toyin cisneros MD [id number] 08/27/2020 02:05:28 PM EDT - 09/14/2020 06:15:00 PM EDT [facility] Patient discharged. Outpatient Attender: BOLIVAR SOTOMAYOR MD [facility] 08/06 11:30:00 AM EDT MEDENT ([facility] Sotomayor [facility]) Outpatient Attender: Bandar Grigsby MD Main Office 08/03/2020 09:30:00 AM EDT MEDENT ([facility]) Outpatient Attender: BOLIVAR SOTOMAYOR MD [facility] 07/15 10:30:00 AM EST [facility] ([facility] Sotomayor [facility]) Outpatient Attender: BOLIVAR SOTOMAYOR MD [facility] 06/17 09:00:00 AM EST [facility] ([facility]ay[facility]) Outpatient Attender: BENJAMIN EVANS MDAdmitter: BENJAMIN GUEVARA MD [id number] 06/12/2020 09:59:00 AM EST - 06/12/2020 04:37:00 PM EST [facility] Patient discharged. Outpatient Attender: Akash CmConsultant: Akash Cm 06/10/2020 11:30:00 AM EST - 06/10/2020 12:30:00 PM EST [facility] Outpatient Attender: Monse Palmergloria SULTANASWConsultant: Akash Fish 06/02/2020 09:04:00 AM EST - 06/02/2020 09:04:00 AM [facility] Outpatient Attender: BOLIVAR SOTOMAYOR MD Medical [facility] 05/21 01:45:00 PM EST MEDENT ([facility]olivar Sotomayor MD) Outpatient Attender: JOSELIN LEON SUPERVISOR COLOR PASTE MIXING Referrer: BOLIVAR SOTOMAYOR MDConsultant: Akash Cm 05/19/2020 10:54:00 AM EST - 05/19/2020 11:54:00 AM [facility] Inpatient Attender: AMARA Messina MDAttender: BOLIVAR SOTOMAYOR MDConsultant: Akash Cm 05/09/2020 06:50:00 PM EST - 05/15/2020 07:17:00 PM [facility] Patient discharged. Outpatient Attender: BOLIVAR SOTOMAYOR MD 2019 04:16:00 PM EST - 05/09/2020 06:50:00 PM [facility] Outpatient 03/29/2020 06:05:00 AM [facility] Inpatient Attender: BOLIVAR SOTOMAYOR MDAtt george: SIRIA EVANSConsultant: Akashmarie Cm 03/25/2020 09:00:[address] [facility] - 03/30/2020 01:38:00 PM [facility] Patient discharged. Outpatient Attender: BOLIVAR SOTOMAYOR MD 2019 02:25:00 PM EST - 03/25/2020 09:00:00 AM [facility] Outpatient Attender: Sol WEST Main office - [facility] 03/09/2020 09:00:00 AM EST MEDENT ([facility] TIAN daugherty) Outpatient Attender: Akash Cm [place] [facility] 02/04/2020 10:30:0 0 AM EDT MEDENT ([facility] Outpatient Attender: BOLIVAR SOTOMAYOR MD [facility] 01/27 02:30:00 PM EDT MEDENT ([facility]olivar Sotomayor MD) Outpatient Attender: Sol Vera PAConsultant: Akash [facility] 12/11/2019 12:47:10 PM EDT - 12/12/2019 09:31:00 AM EDT [facility] Patient discharged. Immunizations Vaccine Date Status Description Data Source(s) COVID-19 VACCINE Moderna 07/28/2020 12:00:00 AM EDT completed [place] Vaccine Series Complete: YESThis Data wa s Submitted to [facility] Via [employer]. COVID-19 VACCINE Moderna 07/03/2020 12:00:00 AM EST completed [place] Vaccine Series Complete: NOThis Data was Submitted to [facility] Via [employer]. New in 2013. IIV4 02/04/2020 11:18:00 AM EDT completed MEDENT ([facility] Medications Medication Brand Name Start [...] Hyclate 2021 12:00:00 AM EDT active [facility] Calcitriol 0.47276 MG Oral Capsule 0.25 mcg CALCITRIOL 01/13/2021 [...] DAILY DOSE = 6 TABLETS SOLD: 12/20/2020 [employer] Insulin Glargine 100 UNT/ML Injectable S olution [...] to 200 mg/dl &nb sp; No Change
[facility] Medication administered onsite atorvastatin 80 MG Oral Tablet atorvastatin (LIPITOR) tablet 80 mg atorvastatin (LIPITOR) tablet 80 mg 12/19/2020 09:00:00 AM EDT 80 mg Oral active 80 mg, Oral, Daily, First dose (after last modification) on 12/19/20 at 0900
As per home regimen
[facility] Medication administered onsite Oxycodone Hydrochloride 5 MG Oral Tablet oxyCODONE (ROXICODONE) 5 MG immediate release tablet oxyCODONE (ROXICODONE) 5 MG immediate release tablet 0 12/19/2020 12:00:00 AM EDT 5 mg Oral active Take 1 tablet (5 mg total) by mouth every 4 (four) hours as needed Max Daily Amount: 30 mg [facility] Amoxicillin 875 MG / Clavulanate 125 MG Oral Tablet amoxicillin-clavulanate (AUGMENTIN) 875-125 MG per tablet amoxicillin-clavulanate (AUGMENTIN) 875- 125 MG per tablet 12/19/2020 12:00:00 AM EDT 1 {tbl} Oral activ e Take 1 tablet by mouth 2 (two) times a day for 10 days [facility] Oxycodone Hydrochloride 5 MG Oral Tablet Oxycodone HCL 12/19/2020 12:00:00 AM EDT ORAL active [facility] Amoxicillin 875 MG / Clavulanate 125 MG Oral Tablet Am oxicillin/Clavulanate Potassium 12/19/2020 12:00:00 AM EDT ORAL completed MEDENT ([facility]) Amoxicillin 875 MG / Clavulanate 125 MG [...] to 200 mg/dl &nb sp; No Change
[facility] Medication administered onsite piperacillin-tazobactam (ZOSYN) 3.375 g in sodium chloride (NS) 0.9 % 100 mL IV pigtail 12/18/2020 03:00:00 PM EDT 3.375 g Intravenous active Skin and Soft Tissue Infection 3.375 g, Intravenous, Admini ster over 4 Hours, Every 8 hours (relative), First dose (after last modification) on Mon12/18/20 at 1500
Extended infusion: administer each dose over 4 hours
[facility] Skin and Soft Tissue Infection Medication administered onsite iodixanol (VISIPAQUE) 320 MG/ML injection 200 mL [id number] 12/18/2020 02:25:38 PM EDT 200 mL Intra-arterial completed 200 mL, Intra-arterial, Once in imaging, contrast, Starting on Mon12/18/20 at 1425, For 1 dose [facility] Medication administered onsite 2 ML Midazolam 1 MG/ML Injection midazolam (VERSED) in jection midazolam (VERSED) injection 12/18/2020 02:06:34 PM EDT Intravenous co mpleted Intravenous, Code/trauma/sedation medication, Starting on Mon12/18/20 at 1406 [facility] Medication administered onsite fentaNYL Citrate (PF) (SUBLIMAZE) injection 6587-3125-53 12/18/2020 02:06:28 PM EDT Intravenous completed In travenous, Code/trauma/sedation medication, Starting on Mon12/18/20 at 1406 [facility] Medication administered onsite Insulin Lispro 100 UNT/ML Injectable Analisa ution insulin lispro (HumaLOG) injection 1-8 Units insulin lispro (HumaLOG) injection 1-8 Units 1 12:00:00 PM EDT U Subcutaneous active 1-8 [...] cover POC glucose at 08:00, 12:00, 17:00.
[facility] Medication administered onsite dextrose 10 % infusion 2307-2672-80 12/18/2020 11:00:00 AM EDT 50 mL/h Intravenous aborted 50 mL/hr, Int ravenous, at 50 mL/hr, Continuous, Starting on Mon12/18/20 at 1100 [facility] Medication administered onsite Acetaminophen 500 MG Oral Tablet acetaminophen (TYLENO L) tablet 1,000 mg acetaminophen (TYLENOL) tablet 1,000 mg 12/18/2020 11:00:00 AM EDT 1000 mg Oral active 1,000 mg, Oral , Every 6 hours PRN, mild pain (1-3), Starting on Mon12/18/20 at 1100
"Maximum dose of acetaminophen is 4,000 mg from all sources in 24 hours."
[facility] Medication administered onsite Levothyroxine Sodium 0.1 MG Oral Tablet levothyroxine (SYNTHROID, LEVOTHROID) tablet 100 mcg levothyroxine (SYNTHROID, LEVOTHROID) tablet 100 mcg 0 12/18/2020 09:00:00 AM EDT 100 ug Oral active 100 mcg, Oral, Daily, First dose on Mon12/18/20 at 0900 [facility] Medication administered onsite clopidogrel 75 MG Oral Tablet clopidogrel (PLAVIX) tab let 75 mg clopidogrel (PLAVIX) tablet 75 mg 12/18/2020 09:00:00 AM EDT 75 mg Oral active 75 mg, Oral, Daily, First dose on Mon12/18/20 at 0900 [facility] Medication administered onsite Aspirin 81 MG Delayed Release Oral Tablet aspirin EC t ablet 81 mg aspirin EC tablet 81 mg 12/18/2020 09:00:00 AM EDT 81 mg Oral activ e 81 mg, Oral, Daily, First dose on Mon12/18/20 at 0900 [facility] Medication administered onsite Docusate Sodium 50 MG / sennosides, ALF 8.6 MG Oral Tablet senna-docusate (PERICOLACE) 8.6-50 MG 2 tablet senna-docusate (PERICOLACE) 8.6-50 MG 2 tablet 12/17/2020 09:00:00 PM EDT 2 {tbl} Oral active 2 tablet, Oral, Nightly, First dose on Sherrie 12/17/20 at 2100
hold for loose stools
[facility] Medication administered onsite Insulin Glargine 100 UNT/ML Injectable S olution [Lantus] insulin glargine (LANTUS) injection 25 Units insulin glargine (LANTUS) injection 25 Units 12/17/2020 09:00:00 PM EDT 25 U Subcutaneous aborted 25 Units, Subcutaneous, Nightly (Lantus), First dose on Sherrie 12/17/20 at 2100
Basal Insulin (Lantus) Adjustments based on AM Blood Glucose Blood Glucose&nbs p; Adjustment Less than 70 mg/dl Nursing to initiate hypoglycemia protocol 70 to 100 mg/dl &nb sp; Pharmacy to decrease total daily dose by 20% 101 to 200 mg/dl &nb sp; No Change
[facility] Medication administered onsite carvedilol 6.25 MG Oral Tablet carvedilol (COREG) tabl et 6.25 mg carvedilol (COREG) tablet 6.25 mg 12/17/2020 09:00:00 PM EDT 6.25 mg Oral active 6.25 mg, Oral, 2 times daily, First dose on Sherrie 12/17/20 at 2100 [facility] Medication administered onsite quetiapine 25 MG Oral Tablet QUEtiapine (SEROquel) tab let 25 mg QUEtiapine (SEROquel) tablet 25 mg 12/17/2020 09:00:00 PM EDT 25 mg Oral aborted 25 mg, Oral, Nightly, First dose on Sherrie 12/17/20 at 2100 [facility] Medication administered onsite potassium chloride SA (K-DUR,KLOR-CON) CR tablet 10 mEq [id number] 12/17/2020 09:00:00 PM EDT 10 meq Oral active 10 mEq, Oral, 2 times daily, First dose on Sherrie 12/17/20 at 2100 [facility] Medication administered onsite pregabalin 75 MG Oral Capsule pregabalin (LYRICA) caps ule 75 mg pregabalin (LYRICA) capsule 75 mg 12/17/2020 09:00:00 PM EDT 75 mg Oral active 75 mg, Oral, 2 times daily, First dose on Sherrie 12/17/20 at 2100, For 7 days [facility] Medication administered onsite latanoprost 0.05 MG/ML Ophthalmic Soluti on latanoprost (XALATAN) 0.005 % ophthalmic solution 1 drop latanoprost (XALATAN) 0.005 % ophthalmic solution 1 drop 12/17/2020 09:00:00 PM EDT 1 [drp] active 1 drop, Both Eyes, Nightly, First dose on Sherrie 12/17/20 at 2100
Therapeutic substitution for home medication: JAYDEN
[facility] Medication administered onsite Allopurinol 100 MG Oral Tablet allopurinol (ZYLOPRIM) tablet 100 mg allopurinol (ZYLOPRIM) tablet 100 mg 12/17/2020 09:00:00 PM EDT 100 mg Oral active 100 mg, Oral, 2 times daily, First dose on Sherrie 12/17/20 at 2100 [facility] Medication administered onsite ferrous gluconate 324 MG Oral Tablet ferrous gluconate (FERGON) tablet 324 mg ferrous gluconate (FERGON) tablet 324 mg 12/17/2020 09:00:00 PM EDT 324 mg Oral active 324 mg, Oral, 2 times daily, First dose on Sherrie 12/17/20 at 2100
separate as far as possible from antacids, take with food
[facility] Medication administered onsite Calcium Carbonate 1250 MG / Cholecalcife rol 200 UNT Oral Tablet calcium-vitamin D (OSCAL-500) 500-200 MG-UNIT per tablet 1 tablet calcium-vitamin D (OSCAL-500) 500-200 MG-UNIT per tablet 1 tablet 12/17/2020 09:00:00 PM EDT 1 {tbl } Oral active 1 tablet, Oral, 2 times lia y, First dose on Mon12/17/20 at 2100 [facility] Medication administered onsite 500 ML heparin [...] 1 unit/kg/hr IV58.1 - 87 Therapeutic, No Pmwuyi69.1 - 97 Decrease infusion 1 unit/kg/hr IV [...] single port tubing ([employer] Infusion Set ref [id number]). Medication and tubing is to be discarded if infusion off for 4 hours.
[facility] Medication administered onsite Insulin Lispro 100 [...] cover POC glucose at 08:00, 12:00, 17:00.
[facility] Medication administered onsite valsartan 80 MG Oral Tablet valsartan (DIOVAN) tablet 40 mg valsartan (DIOVAN) tablet 40 mg 12/17/2020 03:00:00 PM EDT 40 mg Oral activ e 40 mg, Oral, Daily, First dose on Sherrie 12/17/20 at 1500 [facility] Medication administered onsite Calcitriol 0.50970 MG Oral Capsule calcitriol (ROCALTR OL) capsule 0.25 mcg calcitriol (ROCALTROL) capsule 0.25 mcg 12/17/2020 03:00:00 PM EDT 0.25 ug Oral active 0.25 mcg, Oral, Lia y, First dose on Mon12/17/20 at 1500 [facility] Medication administered onsite atorvastatin 80 MG Oral Tablet atorvastatin (LIPITOR) tablet 80 mg atorvastatin (LIPITOR) tablet 80 mg 12/17/2020 03:00:00 PM EDT 80 mg Oral aborted 80 mg, Oral, Daily, First dose on Sherrie 12/17/20 at 1500 [facility] Medication administered onsite pantoprazole 40 MG Delayed Release Oral Tablet pantoprazole (PROTONIX) EC tablet 40 mg pantoprazole (PROTONIX) EC tablet 40 mg 12/17/2020 03:00:00 PM E DT 40 mg Oral active Gastroesophageal Reflux Diseas e 40 mg, Oral, Daily, Indications: Gastroesophageal Reflux Disease, First dose on Sherrie 12/17/20 at 1500
Therapeutic substitution for home medication: omeprazole
[facility] Gastroesophageal Reflux Disease Medication administered onsite piperacillin-tazobactam (ZOSYN) 3.375 g in sodium chloride (NS) 0.9 % 100 mL IV pigtail 12/17/2020 03:00:00 PM EDT 3.375 g Intravenous aborted Skin and Soft Tissue Infection 3.375 g, Intravenous, Admini ster over 30 Minutes, Every 6 hours (relative), First dose on Sherrie 12/17/20 at 1500 [facility] Skin and Soft Tissue Infection Medication administered onsite Oxycodone Hydrochloride 5 MG Oral Tablet oxyCODONE (ROXICODONE) immediate release tablet 5 mg oxyCODONE (ROXICODONE) immediate release tablet 5 mg 12/17/2020 02:43:41 PM EDT 5 mg Oral active 5 mg, Oral, Every 4 hours PRN, moderate pain (4-6), severe pain (7-10), Starting on Sherrie 12/17/20 at 1443, For 7 days [facility] Medication administered onsite normal saline flush 0.9 % injection 3 mL [id number] 12/17/2020 02:00:00 PM EDT 3 mL Intravenous active 3 mL , Intravenous, Every 8 hours (scheduled), First dose on Sherrie 12/17/20 at 1400
flush per protocol, D/C Main IV fluid if appropriate
[facility] Medication administered onsite sodium chloride 0.9% (NS) infusion 0097-9595-09 12/17/2020 02:00:00 P M EDT Intravenous aborted at 50 mL/hr, Intravenous, Continuous, Starting on Sherrie 12/17/20 at 1400 [facility] Medication administered onsite Nitroglycerin 0.4 MG Sublingual Tablet n itroglycerin (NITROSTAT) SL tablet 0.4 mg nitroglycerin (NITROSTAT) SL tablet 0.4 mg 12/17/2020 01:55:32 P M EDT 0.4 mg Sublingual active 0.4 mg, S ublingual, Every 5 min PRN, chest pain, Starting on Sherrie 12/17/20 at 1355
May administer up to 3 doses per episode.
[facility] Medication administered onsite Albuterol 0.83 MG/ML Inhalant Solution a lbuterol (PROVENTIL) nebulizer solution 2.5 mg albuterol (PROVENTIL) nebulizer solution 2.5 mg 2020 01:55:14 PM EDT 2.5 mg active 2.5 mg, Nebulization, Every 6 hours PRN, shortness of breath, Starting on Sherrie 12/17/20 at 1355 [facility] Medication administered onsite Bisacodyl 10 MG Rectal Suppository bisacodyl (DULCOLAX ) suppository 10 mg bisacodyl (DULCOLAX) suppository 10 mg 12/17/2020 01:18:58 PM EDT 10 mg Rectal active 10 mg, Rectal, Daily PRN, constipation, Starting on Sherire 12/17/20 at 1318
Hold for BM. If senna-docusate and milk of magnesia are not effective
[facility] Medication administered onsite ondansetron (ZOFRAN) injection 4 mg [id number] 12/17/2020 01:18:5 8 PM EDT 4 mg Intravenous active 4 mg, In travenous, Every 4 hours PRN, nausea, vomiting, Starting on Sherrie 12/17/20 at 1318 [facility] Medication administered onsite Acetaminophen 325 MG / Hydrocodone Bitartrate 5 MG Ora l Tablet Hydrocodone-Acetaminophen 12/15/2020 12:00:00 AM EDT ORAL active [facility] ([facility]) Acetaminophen 325 MG / Hydrocodone Bitartrate 5 [...] EDT ORAL completed [facility] ([facility]) doxycycline hyclate 100 MG Oral Tablet DOXYCYCLINE [...] [facility] sodium chloride 0.9% (NS) infusion [id number] 09/14/2020 02:00:00 P M EDT Intravenous active at 100 mL/hr, Intravenous, Continuous, Starting on Mon09/14/20 at 1400, Pre-op [facility] Medication administered onsite iodixanol (VISIPAQUE) 320 MG/ML injection 150 mL [id number] 09/14/2020 12:21:01 PM EDT 150 mL Intra-arterial completed 150 mL, Intra-arterial, Once in imaging, contrast, Starting on Mon09/14/20 at 1221, For 1 dose [facility] Medication administered onsite protamine injection [id number] 09/14/2020 12:05:31 PM EDT completed Code/trauma/sedation medication, Startin g on Mon09/14/20 at 1205 [facility] Medication administered onsite heparin (porcine) injection [id number] 09/14/2020 11:45:23 AM EDT completed Code/trauma/sedation medication, Starting on Mon09/14/20 at 1145 [facility] Medication administered onsite 2 ML Midazolam 1 MG/ML Injection midazolam (VERSED) in jection midazolam (VERSED) injection 09/14/2020 11:38:47 AM EDT Intravenous co mpleted Intravenous, Code/trauma/sedation medication, Starting on Mon09/14/20 at 1138 [facility] Medication administered onsite fentaNYL Citrate (PF) (SUBLIMAZE) injection [id number] 09/14/2020 11:38:43 AM EDT Intravenous completed In travenous, Code/trauma/sedation medication, Starting on Mon09/14/20 at 1138 [facility] Medication administered onsite sodium chloride 0.9% (NS) infusion [id number] 09/14/2020 10:00:00 A M EDT Intravenous active at 75 mL/hr, Intravenous, Continuous, Starting on Mon09/14/20 at 1000, Pre-op [facility] Medication administered onsite normal saline flush 0.9 % injection 3 mL [id number] 09/14/2020 10:00:00 AM EDT 3 mL Intravenous active 3 mL , Intravenous, Every 8 hours (scheduled), First dose on 09/14/20 at 1000, Pre-op
Rapid push positive pressure flushing shall be performed with a 10 cc normal saline syringe to check the PATENCY of a PIV site prior to any infusion therapy initiation unless resistance is met.
[facility] Medication administered onsite 1 % 09/08/2020 12:00:00 AM EDT cream 50 APPLY TOPICALLY TO ULCER TWO TIMES A DAY APPLY TOPICALLY TO ULCER TWO TIMES A DAY SOLD: 09/10/2020 [facility] Vitamin K 1 5 MG Oral Tablet PHYTONADIONE (VIT K1) 08/16/2020 12 :00:00 AM EDT tablet 2 TAKE ONE TABLET BY MOUTH NOW AND TAKE ONE TOMMOROW TAKE ONE TABLET BY MOUTH NOW AND TAKE ONE TOMMOROW SOLD: 08/16/2020 [facility] doxycycline hyclate 100 MG Oral Capsule DOXYCYCLINE HYCLATE 08/06/2020 12:00:00 AM EDT capsule 20 TAKE ONE CAPSULE BY MOUTH TW ICE A DAY TAKE ONE CAPSULE BY MOUTH TWICE A DAY SOLD: 08/08/2020 [facility] doxycycline hyclate 100 MG Oral Capsule Doxycycline Hyclate 08/06/2020 12:00:00 AM EDT active [facility] (Jonelle Sotomayro MD) 1 mg 07/28/2020 12:00:00 AM EDT tablet 180 TAKE 3MG ( 3 TABLETS) BY MOUTH ONCE DAILY TAKE 3MG ( 3 TABLETS) BY MOUTH ONCE DAILY SOLD: 08/04/2020 [facility] 3 mg 07/19/2020 12:00:00 AM EST [...] BY MOUTH EVERY DAY SOLD: 07/21/2020 [facility] 80 mg 07/17/2020 12:00:00 AM EST tablet 90 TAKE ONE TABLET BY MOUTH EVERY DAY AT BEDTIME TAKE ONE TABLET BY MOUTH EVERY DAY AT BEDTIME SOLD: 07/21/2020 [facility] Bumetanide 1 MG Oral Tablet BUMETANIDE 07/17/2020 12:00:00 AM EST tabl et 180 TAKE ONE TABLET BY MOUTH TWICE A DAY TAKE ONE TABLET BY MOUTH TWICE A DAY SOLD: 07/21/2020 [facility] Bumetanide 1 MG Oral Tablet BUMETANIDE 07/17/2020 12:00:00 AM EST tabl et 180 TAKE ONE TABLET BY MOUTH TWICE A DAY TAKE ONE TABLET BY MOUTH TWICE A DAY SOLD: 10/20/2020 [facility] carvedilol 6.25 MG Oral Tablet CARVEDILOL 07/17/2020 12:00:00 AM EST tablet 180 TAKE ONE TABLET BY MOUTH TWICE A DAY TAKE ONE TABLET BY MOUT H TWICE A DAY SOLD: 07/21/2020 [facility] 75 mg 07/17/2020 12:00:00 AM EST tablet 90 TAKE ONE TABLET BY MOUTH EVERY DAY TAKE ONE TABLET BY MOUTH EVERY DAY SOLD: 10/20/2020 [facility] Sulfamethoxazole 800 MG / Trimethoprim 160 MG Oral Tab let 800-160 mg SULFAMETHOXAZOLE/TRIMETHOPRIM 06/29/2020 12:00:00 AM EST tablet 20 TAKE ONE TABLET BY MOUTH TWICE A DAY TAKE ONE TABLET BY MOUTH TWICE A DAY SOLD: 07/01/2020 [facility] 75 mg 06/26/2020 12:00:00 AM EST capsule 180 TAKE ONE CAPSULE BY MOUTH TWICE A DAY MAXIMUM DAILY DOSE = 2 TAKE ONE CAPSULE BY MOUTH TWICE A DAY MA XIMUM DAILY DOSE = 2 SOLD: 06/28/2020 [facility] normal saline flush 0.9 % injection 3 mL [id number] 06/12/2020 02:00:00 PM EST 3 mL Intravenous active 3 mL , Intravenous, Every 8 hours (scheduled), First dose on Mon06/12/20 at 1400, Pre-op
Rapid push positive pressure flushing shall be performed with a 10 cc normal saline syringe to check the PATENCY of a PIV site prior to any infusion therapy initiation unless resistance is met.
[facility] Medication administered onsite normal saline flush 0.9 % injection 3 mL [id number] 06/12/2020 02:00:00 PM EST 3 mL Intravenous active 3 mL , Intravenous, PROTOCOL, First dose on Mon06/12/20 at 1400, Pre-op
flush per protocol, D/C Main IV fluid if appropriate
[facility] Medication administered onsite iopamidol (ISOVUE-370) 76 % 13701 06/12/2020 01:05:15 PM EST active As needed, Starting Mon06/12/20 at 1305, Intra-Procedur e [facility] Medication administered onsite lidocaine 1 % injection [id number] 06/12/2020 12:50:16 PM EST active As needed, Starting Mon06/12/20 a t 1250, Intra-Procedure [facility] Medication administered onsite fentaNYL Citrate (PF) (SUBLIMAZE) injection [id number] 06/12/2020 12:49:27 PM EST active As neede d, Starting Mon06/12/20 at 1249, Intra-Procedure [facility] Medication administered onsite 2 ML Midazolam 1 MG/ML Injection midazolam (VERSED) in jection midazolam (VERSED) injection 06/12/2020 12:49:08 PM EST active As needed, Starting Mon06/12/20 at 1249, Intra-Procedure [facility] Medication administered onsite sodium chloride 0.9% (NS) infusion [id number] 06/12/2020 11:00:00 AM EST 100 mL/h Intravenous active at 100 m L/hr, 100 mL/hr, Intravenous, Continuous, Starting Mon06/12/20 at 1100, Pre-op
Start two hours prior to scheduled start time
[facility] Medication administered onsite Acetaminophen 325 MG Oral Tablet acetaminophen (TYLENO L) 325 MG tablet 650 mg acetaminophen (TYLENOL) 325 MG tablet 650 mg 06/12/2020 10:07:53 AM EST 650 mg Oral active 650 mg, Or al, Every 4 hours PRN, headaches, and non cardiac pain, Starting Mon06/12/20 at 1007, Pre-op
"Maximum dose of acetaminophen is 4,000 mg from all sources in 24 hours."
[facility] Medication administered onsite clopidogrel 75 MG Oral Tablet [Plavix] Plavix 06/02/2020 12:00:00 AM EST ORAL active [facility] ([facility]) 2 % 05/29/2020 12:00:00 [...] A DAY SOLD: 04/26/2020 [facility] Calcitriol 0.17567 MG Oral Capsule 0.25 mcg CALCITRIOL 04/19/2020 [...] MOUT H TWICE A DAY SOLD: 04/26/2020 [facility] Technetium TC 99M Sestamibi 04/09/2020 12:00:00 AM EST completed [facility] (Bolivar Sotomayor MD) Medication administered onsite Lexiscan 04/09/2020 12:00:00 AM EST completed [facility] (Bolivar Sotomayor MD) Medication administered onsite 40 mg 03/31/2020 12:00:00 AM EST tablet 90 TAKE ONE TABLET BY MOUTH EVERY DAY TAKE ONE TABLET BY MOUTH EVERY DAY SOLD: 04/09/2020 [facility] 40 mg 03/31/2020 12:00:00 AM EST tablet 90 TAKE ONE TABLET BY MOUTH EVERY DAY TAKE ONE TABLET BY MOUTH EVERY DAY SOLD: 07/21/2020 [facility] Levofloxacin 500 MG Oral Tablet Levofloxacin 03/30/2020 12:00:[address] ORAL active [facility] (Jonelle Sotomayor MD) Lactobacillus rhamnosus GG [id number] UNT Oral Capsule Cult urelle 03/30/2020 12:00:00 AM EST ORAL active M EDENT (Bolivar Sotomayor MD) valsartan 40 MG Oral Tablet Valsartan 03/30/2020 12:00:00 AM EST ORAL active [facility] (Bolivar Sotomayor MD) 500 mg 03/30/2020 12:00:00 AM EST tablet 5 TAKE ONE TABLET BY MOUTH EVERY DAY TAKE ONE TABLET BY MOUTH EVERY DAY SOLD: 04/01/2020 [facility] 100 mcg 01/27/2020 12:00:00 AM EDT tablet 90 TAKE ONE TABLET BY MOUTH EVERY DAY TAKE ONE TABLET BY MOUTH EVERY DAY SOLD: 01/28/2020 [facility] 20 mg 01/27/2020 12:00:00 AM EDT [...] 12:00:00 AM EDT active [facility] ([facility] Bumetanide 1 MG Oral Tablet BUMETANIDE 01/14/2020 12:00:00 AM EDT tabl et 180 TAKE ONE TABLET BY MOUTH TWICE A DAY TAKE ONE TABLET BY MOUTH TWICE A DAY SOLD: 01/23/2020 [facility] 80 mg 01/14/2020 12:00:00 AM EDT [...] TABLETS BY MOUTH EVERY DAY SOLD: 02/18/2020 [facility] 300 unit/mL (3 mL) 10/09/2019 12:00:00 AM EDT insulin pen 12 INJECT 45 UNITS UNDER THE SKIN ONCE DAILY INJECT 45 UNITS UNDER THE SKIN ONCE DAILY SOLD: 04/30/2020 [facility] 300 unit/mL (3 mL) 10/09/2019 12:00:00 AM EDT insulin pen 12 INJECT 45 UNITS UNDER THE SKIN ONCE DAILY INJECT 45 UNITS UNDER THE SKIN ONCE DAILY SOLD: 01/04/2020 [facility] Calcitriol 0.67333 MG Oral Capsule 0.25 mcg CALCITRIOL 07/22/2019 12:00:00 AM EDT capsule 90 TAKE ONE CAPSULE BY MOUTH EV ART DAY TAKE ONE CAPSULE BY MOUTH EVERY DAY SOLD: 01/23/2020 [facility] torsemide 10 MG Oral Tablet torsemide (DEMADEX) 10 MG tablet torsemide (DEMADEX) 10 MG tablet 40 mg Oral aborted Ta ke 40 mg by mouth 2 (two) times a day [facility] quetiapine 25 MG Oral Tablet QUEtiapine (SEROQUEL) 25 MG tablet QUEtiapine (SEROQUEL) 25 MG tablet 25 mg Oral aborted Take 25 mg by mouth nightly [facility] Insurance Providers Payer name Policy type / Coverage type Policy ID Covered democrat ID Covered democrat's relationship to estrella Policy Estrella Plan Information Medicare Medicare Primary [id number] Family Dependent [id number] Medicare Medicare Primary [id number] Family Dependent [id number] Medicare Medicare Primary [id number] Family Dependent [id number] MEDICARE [id number] xxxxxxxxxxx [id number] Medicare Medicare Primary [id number] Family Dependent [id number] MEDICARE [id number] Keerthi [id number] A MEDICARE [id number] Keerthi [id number] Medicare Medicare Primary [id number] Family Dependent [id number] MEDICARE A [id number] Self [id number] A [employer] C[employer] OPTIONS [id number] SP [id number] [facility] [id number] Keerthi [id number] [facility] 2 [id number] 1 [id number] 1 [facility] [id number] xxxxxxxxxxx [id number] AAR U [id number] Self [id number] [employer] [id number] Self [id number] [employer] [id number] Self [id number] [employer] [id number]. [id number] Self [id number] [employer] [id number]. [id number] Self [id number] [employer] [id number]. [id number] Self [id number] [facility] [employer] [id number] Self [id number] [place] Part B [id number] Self [id number] INSURANCE COVID-19 COVID Keerthi C TESUQUE MEDICARE C [id number] S [id number] A Aar Medigap Part B [id number] 1255.0 Self [id number] Medicare Part B Medicare Primary [id number] Self [id number] [facility] PI PI MEDICARE PI PI [employer] Medigap Part B [id number] Family Dependent [id number] [employer] Options Medigap Part B [id number] Self [id number] Medicare Part A [place] Medicare Primary [id number] Self [id number] [employer] [place] [place] [id number] [id number] [facility] [id number] 18 [id number] [employer] Medigap Part B [id number] Family Dependent [id number] [employer] Medigap Part B [id number] 1255.0 Self [id number] Medicare Part B Medicare Primary [id number] Self [id number] [employer] Medigap Part B [id number] 1255.0 Self [id number] Medicare Part B Medicare Primary [id number] Self [id number] [employer] [id number] Self Medicare Part B Medicare Primary [id number] Self MEDICARE [id number] SP [id number] J06 MEDICARE -O/P [id number] 18 [id number] SELF PAY UNAVAILABLE UNAVAILA BLE MEDICARE PART A -RECURRING [id number] 18 [id number] [employer] C[employer] OPTIONS [id number] SP [id number] SELF PAY 2 UNAVAILABLE 1 UNAVAILA BLE MEDICARE -RECURRING [id number] 18 [id number] [employer] OPTIONS [id number] SP [id number] MEDICARE PART A-O/P [id number] 18 [id number] [facility] HEALTH CARE OPTIONS-O/P [id number] 18 [id number] MEDICARE PART A -I/P [id number] 18 [id number] [facility] HEALTHCARE [id number] 18 [id number] MEDICARE CO [id number] 18 [id number] [facility] [id number] 18 [id number] MEDICARE PART A-O/P [id number] 18 [id number] [facility] Medigap Part B [id number] 1255.0 Self [id number] Medicare Part B Medicare Primary [id number] Self [id number] MEDICARE -RECURRING [id number] 18 [id number] [facility] HEALTH CARE OPTIONS -RECURRING [id number] 18 [id number] [facility] [id number] Family Dependent [id number] MEDICARE -SWING BED [id number] 18 [id number] Aar Medigap Part B [id number] Family Dependent [id number] MEDICARE PART A -I/P [id number] 18 [id number] [facility] Medigap Part B [id number] 1255.0 Self [id number] Medicare Part B Medicare Primary [id number] Self [id number] Aar Medigap Part B [id number] Family Dependent [id number] MEDICARE [id number] SP [id number] A AARP O [id number] S [id number] Problems, Conditions, and Diagnoses Code Display Name Description Problem Type Effective Dates Data Source(s) I73.9 Peripheral vascular disease, unspecified Peripheral vascular disease, unspecified Diagnosis 12/17/2020 11:58:00 AM EDT [facility] I99.8 Other disorder of circulatory system Other disor melia of circulatory system Diagnosis 12/17/2020 11:58:00 AM EDT [facility] I6523 Occlusion and stenosis of bilateral rao tid arteries Occlusion and stenosis of bilateral carotid arteries Diagnosis 12/11/2020 10:41:00 A M EDT [facility] D698 Other specified hemorrhagic conditions O ther specified hemorrhagic conditions Diagnosis 12/11/2020 10:41:00 AM EDT [facility] [id number] Encounter for other preprocedural examin ation Encounter for other preprocedural examination Diagnosis 12/11/2020 10:41:00 AM EDT [facility] E039 Hypothyroidism, unspecified Hypothyroidism, unspecifie d Diagnosis 10/09/2020 03:14:00 PM EDT [facility] M6281 Muscle weakness (generalized) Muscle weakness (general ized) Diagnosis 10/09/2020 03:14:00 PM EDT [facility] 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 Diagnosis 10/09/2020 03:14:00 PM EDT [facility] 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 Diagnosis 10/09/2020 03:14:00 PM EDT [facility] E119 Type 2 diabetes mellitus without complic ations Type 2 diabetes mellitus without complications Diagnosis 10/09/2020 03:14:00 PM EDT [facility] J449 Chronic obstructive pulmonary disease, u nspecified Chronic obstructive pulmonary disease, unspecified Diagnosis 10/09/2020 03:14:00 PM EDT [facility] Z952 Presence of prosthetic heart valve Presence of p rosthetic heart valve Diagnosis 10/09/2020 03:14:00 PM EDT [facility] I110 Hypertensive heart disease with heart fa ilure Hypertensive heart disease with heart failure Diagnosis 10/09/2020 03:14:00 PM EDT [facility] L308 Other specified dermatitis Other specified dermatitis Diagnosis 10/09/2020 03:14:00 PM EDT [facility] A58458 Unspecified atherosclerosis of [place] arteries of extremities, unspecified extremity Unspecified atherosclerosis of [place] ar teries of extremities, unspecified extremity Diagnosis 10/09/2020 03:14:00 PM ED T [facility] E785 Hyperlipidemia, unspecified Hyperlipidemia, unspecifie d Diagnosis 10/09/2020 03:14:00 PM EDT [facility] I5020 Unspecified systolic (congestive) heart failure Unspecified systolic (congestive) heart failure Diagnosis 10/09/2020 03:14:00 PM EDT [facility] I509 Heart failure, unspecified Heart failure, unspecified Diagnosis 10/09/2020 03:14:00 PM EDT [facility] Z1152 ENCOUNTER FOR SCREENING FOR COVID-19 ENCOUNTER F OR SCREENING FOR COVID-19 Diagnosis 10/09/2020 12:19:00 PM EDT [facility] M7989 Other specified soft tissue disorders Ot her specified soft tissue disorders Diagnosis 10/09/2020 12:19:00 PM EDT [facility] I5021 Acute systolic (congestive) heart failur e Acute systolic (congestive) heart failure Diagnosis 10/09/2020 12:19:00 PM EDT [facility] I70.212 Atherosclerosis of [place] ar teries of extremities with intermittent claudication, left leg Atherosclerosis of [place] arteries of ex Diagnosis 09/14/2020 09:19:00 AM EDT [facility] R94.39 Abnormal result of other cardiovascular function study Abnormal result of other cardiovascular Diagnosis 06/12/2020 09:59:00 AM EST [facility] 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 Acute on chronic combined systolic (antoinette Diagnosis 06/12/2020 09:59:00 AM EST [facility] 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, thoracic region Other intervertebral disc degeneration, thoracic region Diagnosis 07/2020 11:30:00 AM [facility] 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, lumbar region Other intervertebral disc degeneration, lumbar region Diagnosis 06/10/2020 11:30:00 AM [facility] M8588 Other specified disorders of bone densit y and structure, other site Other specified disorders of bone density and structure, other site Diagnosis 06/10/2020 11:30:00 AM [facility] Z711 Person with feared health complaint in w cathleen no diagnosis is made Person with feared health complaint in whom no diagnosis is made Diagnosis 06/02/2020 09:04:00 AM [facility] 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 c dirk] as the cause of diseases classified elsewhere Other Escherichia coli [E. coli] as the cause of diseases classified elsewhere Diagnosis 05/09/2020 06:50:00 PM [facility] G4700 Insomnia, unspecified Insomnia, unspecified Diagnosis 05/09/2020 06:50:00 PM [facility] F22 Delusional disorders Delusional disorders Diagnosis 05/09/2020 06:50:00 PM [facility] J189 Pneumonia, unspecified organism Pneumonia, unspecified organism Diagnosis 05/09/2020 06:50:00 PM [facility] E876 Hypokalemia Hypokalemia Diagnosis 05/06/2020 04:16:00 PM [facility] E559 Vitamin D deficiency, unspecified Vitamin D defi ciency, unspecified Diagnosis 05/06/2020 04:16:00 PM [facility] G43544 Atherosclerotic heart diseas e of [place] coronary artery with other forms of angina pectoris Atherosclerotic heart disease of [place] coronary artery with other forms of angina pectoris Diagnosis 05/06/2020 04:16:00 PM [facility] E7800 Pure hypercholesterolemia, unspecified P ure hypercholesterolemia, unspecified Diagnosis 05/06/2020 04:16:00 PM [facility] M109 Gout, unspecified Gout, unspecified Diagnosis 03/25/2020 09:00:00 AM [facility] Z950 Presence of cardiac pacemaker Presence of cardiac pace maker Diagnosis 03/25/2020 09:00:00 AM [facility] J181 Lobar pneumonia, unspecified organism Lo bar pneumonia, unspecified organism Diagnosis 03/25/2020 09:00:00 AM [facility] E1165 Type 2 diabetes mellitus with hyperglyce luis Type 2 diabetes mellitus with hyperglycemia Diagnosis 03/23/2020 02:25:00 PM [facility] L97.524 [id number] Non-pressure chronic ulcer of other part of left foot with necrosis of bone Problem 02/01/2021 12:00:00 AM EDT eCW1 ([facility]) B35.1 [id number] Tinea unguium Problem 02/01/2021 12:00:00 AM EDT eCW1 ([facility]) I70.249 [id number] Atherosclerosis of n ative arteries of left leg with ulceration of unspecified site Problem 02/01/2021 12:00:00 AM EDT eCW1 ([facility]) [id number] Urinary incontinence Urinary incontinence Problem 12/17/2020 12:00:00 AM EDT MEDENT ([facility]) [id number] Sleep apnea Sleep apnea Problem 12/17/2020 12:00:00 AM EDT MED[facility] ([facility]) [id number] Peripheral arterial disease Peripheral arterial diseas e Problem 12/17/2020 12:00:00 AM EDT MEDENT ([facility]) [id number] Osteoarthritis Osteoarthritis Problem 12/17/2020 12:00: 00 AM EDT MEDENT ([facility]) [id number] Long-term current use of anticoagulant L gayathri-term current use of anticoagulant Problem 12/17/2020 12:00:00 AM EDT MED[facility] ([facility]) Note: Overview: coumadin [id number] Hypothyroidism Hypothyroidism Problem 12/17/2020 12:00: 00 AM EDT MEDENT ([facility]) [id number] Hearing loss Hearing loss Problem 12/17/2020 12:00:00 A M EDT MED[facility] ([facility]) [id number] Essential hypertension Essential hypertension Problem 12/17/2020 12:00:00 AM EDT MED[facility] ([facility]) [id number] Diabetes mellitus Diabetes mellitus Problem 12/17/2020 12:00:00 AM EDT MED[facility] ([facility]) Note: Overview: Type 2, insulin requirin g [id number] Coronary arteriosclerosis Coronary arteriosclerosis Pr oblem 12/17/2020 12:00:00 AM EDT MED[facility] ([facility]) [id number] Chronic kidney disease Chronic kidney disease Problem 12/17/2020 12:00:00 AM EDT MED[facility] ([facility]) Note: Overview: renal calculi [id number] Cerebrovascular accident Cerebrovascular accident Prob lore 12/17/2020 12:00:00 AM EDT MED[facility] ([facility]) N18.9 Chronic kidney disease Chronic kidney disease [id number] 12/17/2020 12:00:00 AM EDT [facility] E03.9 Hypothyroidism Hypothyroidism 16690047 12/17/2020 12:00: 00 AM EDT [facility] R32 Urinary incontinence Urinary incontinence [id number] 12/17/2020 12:00:00 AM EDT [facility] Z79.01 FDC current use of anticoagulant L gayathri term current use of anticoagulant [id number] 12/17/2020 12:00:00 AM EDT [facility] I63.9 Stroke Stroke [id number] 12/17/2020 12:00:00 AM ED T [facility] H91.90 Hearing loss Hearing loss [id number] 12/17/2020 12:00:00 A M EDT [facility] G47.30 Sleep apnea Sleep apnea [id number] 12/17/2020 12:00:00 AM EDT [facility] M19.90 Osteoarthritis Osteoarthritis 11186637 12/17/2020 12:00: 00 AM EDT [facility] E11.9 Diabetes mellitus Diabetes mellitus 48189169 12/17/2020 12:00:00 AM EDT [facility] I10 Hypertension, essential Hypertension, essential 122797 12/17/2020 12:00:00 AM EDT [facility] I25.10 Coronary artery disease Coronary artery disease 854840 12/17/2020 12:00:00 AM EDT [facility] I73.9 PAD (peripheral artery disease) PAD (peripheral artery disease) 60621185 12/17/2020 12:00:00 AM EDT [facility] [id number] Type 2 diabetes mellitus Type 2 diabetes mellitus Prob lore 02/04/2020 12:00:00 AM EDT MEDROSARIO ([facility] ) Surgeries/Procedures Procedure Description Date Indications Data Source(s) FINE NEEDLE ASPIRATION W/O IMAGING GUIDANCE 02/10/2021 12:00:00 AM EDT eCW1 ([facility]) Med: Cadexomer Iodine gel topical IODOSORB 10 2020 12:00:00 AM EDT eCW1 ([facility]) Med: Cadexomer Iodine gel topical IODOSORB 10 2020 12:00:00 AM EDT eCW1 ([facility]) Medication: Silver Nitrate Stick topically 02/01/2021 12:00:00 AM EDT eCW1 ([facility]) FINE NEEDLE ASPIRATION W/O IMAGING GUIDANCE 02/01/2021 12:00:00 AM EDT eCW1 ([facility]) Medication: 2% Lidocaine intradermal 02/01/2021 12:00: 00 AM EDT eCW1 ([facility]) OFFICE OUTPATIENT VISIT 25 MINUTES 2021 12:00:00 AM EDT YARI ([facility]) GLUC BLD GLUC MNTR DEV CLEARED FDA SPEC HOME USE <td>P OCT GLUCOSE</td><td>Routine</td><td>12/19/2020 1:59 PM EDT</td><td></td><td> </td> 12/19/2020 01:59:00 PM EDT [facility] GLUC BLD GLUC MNTR DEV CLEARED FDA SPEC HOME USE <td>P OCT GLUCOSE</td><td>Routine</td><td>12/19/2020 9:44 AM EDT</td><td></td><td> </td> 12/19/2020 09:44:00 AM EDT [facility] PROTHROMBIN TIME <td>PROTIME-INR</td><td>Rout ine</td><td>12/19/2020 9:14 AM EDT</td><td></td><td> </td> 12/19/2020 09:14:00 AM EDT [facility] BLOOD COUNT COMPLETE AUTOMATED <td>CBC</td><td>Timed</ td><td>12/19/2020 9:14 AM EDT</td><td></td><td> </td> 12/19/2020 09:14:00 AM EDT [facility] BASIC METABOLIC PANEL CALCIUM TOTAL <td>BASIC METABOLI C PANEL</td><td>Timed</td><td>12/19/2020 9:14 AM EDT</td><td></td><td> </td> 12/19/2020 09:14:00 AM EDT [facility] GLUC BLD GLUC MNTR DEV CLEARED FDA SPEC HOME USE <td>P OCT GLUCOSE</td><td>Routine</td><td>12/18/2020 6:41 PM EDT</td><td></td><td> </td> 12/18/2020 06:41:00 PM EDT [facility] GLUC BLD GLUC MNTR DEV CLEARED FDA SPEC HOME USE <td>P OCT GLUCOSE</td><td>Routine</td><td>12/18/2020 4:11 PM EDT</td><td></td><td> </td> 12/18/2020 04:11:00 PM EDT [facility] US VASC ACCESS SITS VSL PATENCY NDL ENTRY <td>IR IS AR TERIOGRAM EXTREMITY SINGLE LEFT</td><td>Routine</td><td>12/18/2020 2:24 PM EDT</td><td></td><td> </td> 12/18/2020 02:24:58 PM EDT [facility] GLUC BLD GLUC MNTR DEV CLEARED FDA SPEC HOME USE <td>P OCT GLUCOSE</td><td>Routine</td><td>12/18/2020 11:19 AM EDT</td><td></td><td> </td> 12/18/2020 11:19:00 AM EDT [facility] GLUC BLD GLUC MNTR DEV CLEARED FDA SPEC HOME USE <td>P OCT GLUCOSE</td><td>Routine</td><td>12/18/2020 10:54 AM EDT</td><td></td><td> </td> 12/18/2020 10:54:00 AM EDT [facility] GLUC BLD GLUC MNTR DEV CLEARED FDA SPEC HOME USE <td>P OCT GLUCOSE</td><td>Routine</td><td>12/18/2020 10:35 AM EDT</td><td></td><td> </td> 12/18/2020 10:35:00 AM EDT [facility] GLUC BLD GLUC MNTR DEV CLEARED FDA SPEC HOME USE <td>P OCT GLUCOSE</td><td>Routine</td><td>12/18/2020 10:12 AM EDT</td><td></td><td> </td> 12/18/2020 10:12:00 AM EDT [facility] GLUC BLD GLUC MNTR DEV CLEARED FDA SPEC HOME USE <td>P OCT GLUCOSE</td><td>Routine</td><td>12/18/2020 9:51 AM EDT</td><td></td><td> </td> 12/18/2020 09:51:00 AM EDT [facility] THROMBOPLASTIN TIME PARTIAL PLASMA/WHOLE BLOOD <td>APTT</td><td>STAT</td><td>12/18/2020 7:27 AM EDT</td><td></td><td> </td> 12/18/2020 07:27:00 AM EDT [facility] PROTHROMBIN TIME <td>PROTIME-INR</td><td>Add- On</td><td>12/18/2020 7:27 AM EDT</td><td></td><td> </td> 12/18/2020 07:27:00 AM EDT [facility] BLOOD COUNT COMPLETE AUTOMATED <td>CBC</td><td>Timed</ td><td>12/18/2020 7:27 AM EDT</td><td></td><td> </td> 12/18/2020 07:27:00 AM EDT [facility] BLOOD TYPING ABO <td>TYPE AND SCREEN</td><td> Routine</td><td>12/18/2020 7:27 AM EDT</td><td></td><td> </td> 12/18/2020 07:27:00 AM EDT [facility] BASIC METABOLIC PANEL CALCIUM TOTAL <td>BASIC METABOLI C PANEL</td><td>Timed</td><td>12/18/2020 7:27 AM EDT</td><td></td><td> </td> 12/18/2020 07:27:00 AM EDT [facility] Catheter Placement Arterial System Init 2ND Ord Abdom/Pel/Lo w Ext 12/18/2020 12:00:00 AM EDT MEDENT ([facility]) Angiography-Extremity Unilateral 12/18/2020 12:00:00 A M EDT MEDENT ([facility]) Ultrasound Guidance 12/18/2020 12:00:00 AM EDT MEDENT ([facility]) Moderate Sedation Services; Same Phys Intl 15 Mins; PT >= 5 Years 12/18/2020 12:00:00 AM EDT MED[facility] ([facility]) HEMOGLOBIN GLYCOSYLATED A1C <td>HEMOGLOBIN A1C</td><td>Routine</td><td>12/17/2020 8:29 PM EDT</td><td></td><td> </td> 12/17/2020 08:29:00 PM EDT [facility] THROMBOPLASTIN TIME PARTIAL PLASMA/WHOLE BLOOD <td>APTT</td><td>Routine</td><td>12/17/2020 8:28 PM EDT</td><td></td><td> </td> 12/17/2020 08:28:00 PM EDT [facility] COVID/FLU AB/RSV PCR <td>COVID/FLU AB/RSV PCR</td ><td>STAT</td><td>12/17/2020 3:10 PM EDT</td><td></td><td> </td> 12/17/2020 03:10:00 PM EDT [facility] ECG ROUTINE ECG W/LEAST 12 LDS TRCG ONLY W/O I&R <td>E CG 12- LEAD</td><td>Routine</td><td>12/17/2020 3:02 PM EDT</td><td></td><td></td> 12/17/2020 03:02:25 PM EDT [facility] THROMBOPLASTIN TIME PARTIAL PLASMA/WHOLE BLOOD <td>APTT</td><td>Routine</td><td>12/17/2020 1:36 PM EDT</td><td></td><td> </td> 12/17/2020 01:36:00 PM EDT [facility] PROTHROMBIN TIME <td>PROTIME-INR</td><td>Rout ine</td><td>12/17/2020 1:36 PM EDT</td><td></td><td> </td> 12/17/2020 01:36:00 PM EDT [facility] BLOOD COUNT COMPLETE AUTOMATED <td>CBC</td><td>Routine </td><td>12/17/2020 1:36 PM EDT</td><td></td><td> </td> 12/17/2020 01:36:00 PM EDT [facility] HEMOGLOBIN GLYCOSYLATED A1C <td>HEMOGLOBIN A1C</td><td >Add-On</td><td>12/17/2020 1:36 PM EDT</td><td></td><td> </td> 12/17/2020 01:36:00 PM EDT [facility] BASIC METABOLIC PANEL CALCIUM TOTAL <td>BASIC METABOLI C PANEL</td><td>Routine</td><td>12/17/2020 1:36 PM EDT</td><td></td><td> </td> 12/17/2020 01:36:00 PM EDT [facility] Electrocardiogram Tracing Only 12/17/2020 12:00:00 AM EDT MEDENT ([facility]) INTERROGATION EVAL IN PERSON 1/DUAL/SENIOR PHARMACY TECHNICIAN LEAD PM 2020 12:00:00 AM EDT MEDENT (Bolivar Sotomayor MD) OFFICE OUTPATIENT VISIT 15 MINUTES 12/14/2020 12:00:00 AM EDT MEDENT (Bolivar Sotomayor MD) OFFICE OUTPATIENT NEW 45 MINUTES 11/27/2020 12:00:00 A M EDT MEDENT ([facility]) DUPLEX SCAN EXTRACRANIAL ART COMPL BI STUDY 11/23/2020 12:00:00 AM EDT MEDENT ([facility]) OFFICE OUTPATIENT VISIT 25 MINUTES 11/23/2020 12:00:00 AM EDT [facility] ([facility]) OFFICE OUTPATIENT VISIT 25 MINUTES 11/19/2020 12:00:00 AM EDT MEDENT (Bolivar Sotomayor MD) ECG ROUTINE ECG W/LEAST 12 LDS W/I&R 10/20/2020 12:00: 00 AM EDT MEDROSARIO (Bolivar Sotomayor MD) OFFICE OUTPATIENT VISIT 25 MINUTES 10/20/2020 12:00:00 AM EDT MEDENT (Bolivar Sotomayor MD) OFFICE OUTPATIENT VISIT 15 MINUTES 10/14/2020 12:00:00 AM EDT MEDENT ([facility]) HOSPITAL DISCHARGE DAY MANAGEMENT 30 MIN/< 10/13/2020 12:00:00 AM EDT MEDENT (Bolivar Sotomayor MD) [facility] HOSPITAL CARE/DAY 15 MINUTES 10/12/2020 12:00:00 AM EDT MEDENT (Bolivar Sotomayor MD) [facility] HOSPITAL CARE/DAY 15 MINUTES 10/11/2020 12:00:00 AM EDT MEDENT (Bolivar Sotomayor MD) Plain Radiography of Chest Plain Radiography of Chest 2020 12:00:00 AM EDT [facility] HOSPITAL CARE/DAY 25 MINUTES 10/10/2020 12:00:00 AM EDT YARI (Bolivar Sotomayor MD) INITIAL HOSPITAL CARE/DAY 50 MINUTES 10/09/2020 12:00: 00 AM EDT YARI (Bolivar Sotomayor MD) Monitoring of Cardiac Electrical Activity, External Ap proach Monitoring of Cardiac Electrical Activity, External Approach 10/09/2020 12:00:00 AM EDT [facility] Introduction of Vasopressor into Peripheral Vein, Perc utaneous Approach Introduction of Vasopressor into Peripheral Vein, Percutaneous Approach 10/09[facility] 09/23/2020 12:00:00 AM EDT YARI ([facility]) SLCTV CATHJ 2ND ORDER ABDL PEL/LXTR ART BRNCH <td>IR I S ARTERIOGRAM EXTREMITY SINGLE LEFT</td><td>Routine</td><td>09/14/2020 12:20 PM EDT</td><td> Atherosclerosis of [place] arteries of extremities with intermittent claudication, left leg</td><td> </td> 09/14/2020 12:20:36 PM EDT Atherosclerosis of [place] arteries of ex tremities with intermittent claudication, left leg [facility] Atherosclerosis of [place] arteries of ex tremities with intermittent claudication, left leg GLUC BLD GLUC MNTR DEV CLEARED FDA SPEC HOME USE <td>P OCT GLUCOSE</td><td>Routine</td><td>09/14/2020 10:13 AM EDT</td><td></td><td> </td> 09/14/2020 10:13:00 AM EDT [facility] PROTHROMBIN TIME <td>POCT INR</td><td>Routine </td><td>09/14/2020 10:00 AM EDT</td><td></td><td> </td> 09/14/2020 10:00:00 AM EDT [facility] Femoral-Popliteal Angioplasty 09/14/2020 12:00:00 AM E DT MEDENT ([facility]) Angiography-Extremity Unilateral 09/14/2020 12:00:00 A M EDT MEDENT ([facility]) Moderate Sedation Services; Same Phys Intl 15 Mins; PT >= 5 Years 09/14/2020 12:00:00 AM EDT MED[facility] ([facility]) INTERROGATION EVAL IN PERSON 1/DUAL/SENIOR PHARMACY TECHNICIAN LEAD PM 2020 12:00:00 AM EDT MED[facility] (Bolivar Sotomayor MD) OFFICE OUTPATIENT VISIT 15 MINUTES 09/10/2020 12:00:00 AM EDT MED[facility] (Bolivar Sotomayor MD) OFFICE OUTPATIENT VISIT 25 MINUTES 08/06/2020 12:00:00 AM EDT MED[facility] (Bolivar Sotomayor MD) DUP-SCAN LXTR ART/ARTL BPGS UNI/LMTD STUDY 08/03/2020 12:00:00 AM EDT [facility] ([facility]) DUP-SCAN LXTR ART/ARTL BPGS UNI/LMTD STUDY 08/03/2020 12:00:00 AM EDT MED[facility] ([facility]) OFFICE OUTPATIENT VISIT 15 MINUTES 08/03/2020 12:00:00 AM EDT MEDENT ([facility]) ECG ROUTINE ECG W/LEAST 12 LDS W/I&R [...] Abnormal result of other cardiovascular function study [facility] Abnormal result of other cardiovascular function study GLUC BLD GLUC MNTR DEV CLEARED FDA SPEC HOME USE <td>P OCT GLUCOSE</td><td>Routine</td><td>06/12/2020 10:34 AM EST</td><td></td><td> </td> 06/12/2020 03:34:00 PM EST [facility] PROTHROMBIN TIME <td>POCT INR</td><td>Routine </td><td>06/12/2020 10:33 AM EST</td><td></td><td> </td> 06/12/2020 03:33:00 PM EST [facility] ECG ROUTINE ECG W/LEAST 12 LDS TRCG ONLY W/O I&R <td>E CG 12- LEAD</td><td>Routine</td><td>06/12/2020 10:25 AM EST</td><td></td><td></td> 06/12/2020 03:25:30 PM EST [facility] Left Heart Cath W/Wo LV & Coronary Angiography 021 12:00:00 AM EST MEDENT ([facility]) Interactive Complexity 06/02/2020 12:00:00 AM EST MEDENT ([facility]) Psychiatric Diagnostic Evaluation 06/02/2020 12:00:00 AM EST MEDENT ([facility]) OFFICE OUTPATIENT VISIT 15 MINUTES 05/21/2020 12:00:00 AM EST MEDENT (Bolivar Sotomayor MD) HOSPITAL DISCHARGE DAY MANAGEMENT 30 MIN/< 05/14/2020 12:00:00 AM EST MEDENT (Bolivar Sotomayor MD) [facility] HOSPITAL CARE/DAY 15 MINUTES 05/13/2020 12:00:00 AM EST [facility] (Bolivar Sotomayor MD) [facility] HOSPITAL CARE/DAY 15 MINUTES 05/12/2020 12:00:00 AM EST [facility] (Bolivar Sotomayor MD) [facility] HOSPITAL CARE/DAY 15 MINUTES 05/11/2020 12:00:00 AM EST [facility] (Bolivar Sotomayor MD) [facility] HOSPITAL CARE/DAY 15 MINUTES 05/10/2020 12:00:00 AM EST [facility] (Bolivar Sotomayor MD) [facility] HOSPITAL CARE/DAY 15 MINUTES 05/09/2020 12:00:00 AM EST MED[facility] (Bolivar Sotomayor MD) Computerized Tomography (CT Scan) of Head Computerized Tomography (CT Scan) of Head 05/09/2020 12:00:00 AM [facility] Introduction of Other Anti-infective int o Peripheral Vein, Percutaneous Approach Introduction of Other Anti-infective int o Peripheral Vein, Percutaneous Approach 05/09/2020 12:00:00 AM [facility] HOSPITAL CARE/DAY 15 MINUTES 05/08/2020 12:00:00 AM EST MEDENT (Bolivar Sotomayor MD) [facility] HOSPITAL CARE/DAY 25 MINUTES 05/07/2020 12:00:00 AM EST [facility] (Bolivar Sotomayor MD) INITIAL HOSPITAL CARE/DAY 50 MINUTES 05/06/2020 12:00: 00 AM EST [facility] (Bolivar Sotomayor MD) MYOCARDIAL SPECT MULTIPLE STUDIES 04/09/2020 12:00:00 AM EST [facility] (Bolivar Sotomayor MD) Computerized Tomography (CT Scan) of Chest and Abdomen Computerized Tomography (CT Scan) of Chest and Abdomen 03/25/2020 12:00:00 AM [facility] Capillary Blood Collection Finger, Heel, Ear Stick 03/10/2020 12:00:00 AM EST MEDENT ([facility] FALLS RISK ASSESSMENT DOCUMENTED 03/09/2020 12:00:00 A M EST MEDENT ([facility]) Capillary Blood Collection Finger, Heel, Ear Stick 02/04/2020 12:00:00 AM EDT MEDENT ([facility] ) INTERROGATION EVAL IN PERSON 1/DUAL/SENIOR PHARMACY TECHNICIAN LEAD PM 2019 12:00:00 AM EDT MEDENT (Bolivar Sotomayor MD) Results ID Date Data Source [id number] 01/12/2021 09:49:[facility] Name Date of Age Gend*PT [id number] Joy Dent 1940 80 years F IPPT Location Admission Date/Time Visit ID Attending [id number] 12/17/20 1158 --- --- EPI ID CSN Admitting Prov ider [id number] Toyin Lopez MD([id number])NAME: Joy Maryjewell Babb#: [id number] #: [id number] DATE: 12/18/2020 PT TYPE: C SURACCT #: [id number] : 1940 SEX: femaleReferring Physician:Primary Care Physician: AKASH CM, MDDISCHARGE DATE: 12/18/2020URGEON: Toyin Lopez MDASSISTANT: NonePREOPERATIVE DX:left lower extremity arterial atherosclerosis with [...] right common femoral artery was accessed using 5-Djiboutian micropuncture kit,which was switched to a 5-Djiboutian sheath and Omni flush catheter was placed [...] rce(s) Supporting Document(s) ID Date Data Source [id number] 12/20/2020 08:26:05 AM [facility]T [facility] Name Date of Age Gend*PT [id number] Joy Dent 1940 80 years F IPPT Location Admission Date/Time Visit ID Attending [id number] 12/17/20 1158 --- --- EPI ID CSN Admitting Prov ider [id number] Toyin Lopez MD([id number]) Attestation signed by Toyin Lopez MD at 12/20/2020 8:26 AMI saw and evaluated the patient and reviewed note. I agree with the history,physical and medical decision makingSignature: EDUARDO Huangate: December 20, 2020Time: 8:25 AM --Surgical Discharge SummaryJoy MaryjewellMRN: [id number] date: 021Admitting Physician: EDUARDO Huangischarge date and [...] air or cover for comfort.CHF/hypertension/hyperlipidemia/CAD /history of [place]/history of mitral valvereplacement/history of CVACoumadin on hold post procedure. Resume tonight. Will take 1mg nightly untilfollow up INR Monday. Monitor closely while on abx.INR 2.47 today after held 3 days.Home meds ordered:Carvedilol, Diovan, atorvastatin [id number] of asymptomatic hypoglycemia 12/18. Glucose 180 at [...] follow up in wound care center near [place].F/u with Dr Lopez/ Calista in 1-2 months or as needed. 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 Urinary incontinence Hypothyroidism Chronic kidney disease renal calculi Acute on chronic systolic congestive heart failure 11/09/2016 Mitral regurgitation 04/09/2015 PAD (peripheral artery disease) Coronary artery disease Hypertension, essential Diabetes mellitus Type 2, insulin requiring Sleep apnea Osteoarthritis Hearing loss Stroke Coronary artery disease involving [place] heart without angina gnuyacrw90/17/2015Resolved Hospital ProblemsNo resolved problems to display.Discharge Medications:Your [...] Get Your MedicationsThese medications were sent to [facility] [address] [id number] amoxicillin-clavulanate 875-125 MG per tablet oxyCODONE 5 [...] of rheumatic fever Hypertension Hypothyroidism 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 Osteoarthritis PAD [...] available in PACS.Please see Operative Reports in EPIC for reports on this exam.Labs:BMP:Lab ResultsComponent Value [...] Code Description Data Vivian e(s) Supporting Document(s) ID Date Data Source [id number] 12/19/2020 06:01:00 PM EDT [facility] ([facility]) Name Value Range Interpretation Code Description Data Vivian rce(s) Supporting Document(s) Laboratory test finding (navigational concept) 180 mg/dL 70-99 [facility] ([facility]) PERFORMED BY [facility] CLINICAL STAFF ID Date Data Source [id number] 12/19/2020 04:08:00 PM EDT [facility] ([facility]) Name Value Range Interpretation Code Description Data Vivian rce(s) Supporting Document(s) Prothrombin time (PT) in control Platelet poor plasma by Coagulation assay 24.6 s 9.20-11.90 [facility] ([facility]) INR in Platelet poor plasma by Coagulation assay 2.47 [facility] ([facility]) SUGGESTED THERAPEUTIC RANGES USING INR F OR STABILIZED ANTICOAGULATED PATIENTS: STANDARD DOSE THERAPY INR 2.0-3.0 DVT, PE, PREVENT DVT OR EMBOLISM HIGH DOSE THERAPY INR 2.5-3.5 PREVENT EMBOLISM FROM MECHANICAL HEART VALVE ID Date Data Source [id number] 12/19/2020 04:01:00 PM EDT [facility] ([facility]) Name Value Range Interpretation Code Description Data Vivian rce(s) Supporting Document(s) Sodium [Moles/volume] in Serum or Plasma 142 mmol/L 136-145 [facility] ([facility]) Potassium [Moles/volume] in Serum or Plasma 4.2 mmol/L 3.6-5.2 [facility] ([facility]) Chloride [Moles/volume] in Serum or Plasma 105 mmol/L 100-108 [facility] ([facility]) Urea nitrogen [Mass/volume] in Serum or Plasma 25 mg/dL 7-24 [facility] ([facility]) Anion gap in Serum or Plasma 2 mmol/L 7-16 [facility] ([facility]) Carbon dioxide, total [Moles/volume] in Serum or Plasma 35 mmol/L 22 -31 [facility] ([facility] Creatinine [Mass/volume] in Serum or Plasma 1.43 mg/dL 0.60-1.00 [facility] ([facility]) Urea nitrogen/Creatinine [Mass Ratio] in Serum or Plasma 17.5 1 0.0-20.0 [facility] ([facility]) Calcium [Mass/volume] in Serum or Plasma 8.9 mg/dL 8.4-10.2 [facility] ([facility]) Glucose [Mass/volume] in Serum or Plasma 96 mg/dL 70-99 [facility] ([facility]) Glomerular filtration rate/1.73 sq M pre dicted among non-blacks [Volume Rate/Area] in Serum or Plasma by Creatinine-based formula (MDRD) 35 [facility] ([facility]) Glomerular filtration rate/1.73 sq M pre dicted among blacks [Volume Rate/Area] in Serum or Plasma by Creatinine-based formula (MDRD) 43 [facility] ([facility]) Glomerular filtration rate/1.73 sq M pre dicted among non-blacks [Volume Rate/Area] in Serum or Plasma by Creatinine-based formula (MDRD) Laboratory test result [facility] ([facility]) -- NORMAL KIDNEY FUNCTION OR MILD DISEASE - GFR >OR= 60 CHRONIC KIDNEY DISEASE - GFR 15 - 59 RENAL FAILURE - GFR <15 Est. GFR calculation based on the MDRD study equation, which assumes a steady state for creatinine. Est. GFR should not be used for medication dosing. ID Date Data Source [id number] 12/19/2020 03:29:00 PM EDT [facility]) Name Value Range Interpretation Code Description Data Vivian rce(s) Supporting Document(s) Leukocytes [#/volume] in Blood by Automated count 7.2 10*3/uL 4.10-11 .00 [facility] ([facility]) Erythrocytes [#/volume] in Blood by Automated count 3.52 10*6/uL 4.00 -5.40 [facility]) Hemoglobin [Mass/volume] in Blood 10.7 g/dL 12.0-16.0 [facility] ([facility]) Erythrocyte mean corpuscular hemoglobin [Entitic mass] by Automated count 30.5 pg 27.0-32.0 [facility] ([facility]) Erythrocyte mean corpuscular volume [Entitic volume] by Auto mated count 91.0 fL 80.0-95.0 [facility] ([facility] ) Hematocrit [Volume Fraction] of Blood by Automated count 32.1 % 3 6.00-47.00 MED[facility] ([facility]) Erythrocyte mean corpuscular hemoglobin concentration [Mass/volume] by Automated count 33.5 g/dL 32-36 [facility] ([facility]) Erythrocyte distribution width [Ratio] by Automated count 19.0 % 10.5-14.5 [facility] ([facility]) Platelet mean volume [Entitic volume] in Blood by Shawn-Geraldo 9.6 fL 7.1-10.7 [facility] ([facility]) Platelets [#/volume] in Blood by Automated count 154 10*3/uL 150-450 [facility] ([facility]) ID Date Data Source [id number] 12/19/2020 02:02:28 PM EDT [facility] Name Value Range Interpretation Code Description Data Vivian rce(s) Supporting Document(s) POC NOVA GLU 180 mg/dL (70-99) H [facility] [place] PERFORMED BY [facility] CLINICAL STAFF ID Date Data Source [id number] 12/19/2020 09:48:23 AM EDT [facility] Name Value Range Interpretation Code Description Data Vivian rce(s) Supporting Document(s) POC NOVA GLU 95 mg/dL (70-99) [facility] [place] [facility] STAFF ID Date Data Source [id number] 12/19/2020 12:09:01 PM EDT [facility] Name Value Range Interpretation Code Description Data Vivian rce(s) Supporting Document(s) PT 24.6 s (9.2-11.9) H [facility] INR 2.47 [facility] SUGGESTED THERAPEUTIC RANGES USING INR F ORSTABILIZED ANTICOAGULATED PATIENTS:STANDARD DOSE THERAPY INR 2.0-3.0 DVT, PE, PREVENT DVT OR EMBOLISMHIGH DOSE THERAPY INR 2.5-3.5 PREVENT EMBOLISM FROM MECHANICAL HEART VALVE ID Date Data Source [id number] 12/19/2020 12:01:40 PM EDT [facility] Name Value Range Interpretation Code Description Data Vivian rce(s) Supporting Document(s) SODIUM 142 mmol/L (136-145) [facility] POTASSIUM 4.2 mmol/L (3.6-5.2) [facility] CHLORIDE 105 mmol/L (100-108) [facility] CO2 35 mmol/L (22-31) H [facility] ANION GAP 2 mmol/L (7-16) L [facility] UREA NITROGEN 25 mg/dL (7-24) H [facility] CREATININE 1.43 mg/dL (0.60-1.00) H [facility] BUN/CREAT RATIO 17.5 RATIO (10.0-20.0) [facility] GLUCOSE 96 mg/dL (70-99) [facility] CALCIUM 8.9 mg/dL (8.4-10.2) [facility] GFR 35 ml/min/1.73m2 (>59) L [facility] GFR ( AMER) 43 ml/min/1.73m2 (>59) L [facility] GFR INTERPRETATION [facility] --NORMAL KIDNEY FUNCTION OR MILD DISEASE - GFR >OR= 60CHRONIC KIDNEY DISEASE - GFR 15 - 59RENAL FAILURE - GFR <15 Est. GFR calculation based on the MDRDstudy equation, which assumes a steadystate for creatinine. Est. GFR should notbe used for medication dosing. ID Date Data Source [id number] 12/19/2020 11:29:47 AM EDT [facility] Name Value Range Interpretation Code Description Data Vivian rce(s) Supporting Document(s) WBC 7.2 10*3/uL (4.1-11.0) [facility] [place] RBC 3.52 10*6/uL (4.00-5.40) L [facility] HGB 10.7 g/dL (12.0-16.0) L [facility] HCT 32.1 % (36.0-47.0) L [facility] MCV 91.0 fL (80.0-95.0) [facility] MCH 30.5 pg (27.0-32.0) [facility] MCHC 33.5 g/dL (32.0-36.0) [facility] RDW 19.0 % (10.5-14.5) H [facility] PLT 154 10*3/uL (150-450) [facility] MPV 9.6 fL (7.1-10.7) [facility] ID Date Data Source [id number] 12/18/2020 06:45:05 PM EDT [facility] Name Value Range Interpretation Code Description Data Vivian rce(s) Supporting Document(s) POC NOVA GLU 138 mg/dL (70-99) H [facility] [place] [facility] CL[facility]ICAL STAFF ID Date Data Source [id number] 12/18/2020 04:14:32 PM EDT [facility] Name Value Range Interpretation Code Description Data Vivian rce(s) Supporting Document(s) POC NOVA GLU 94 mg/dL (70-99) [facility] [place] [facility] CL[facility]ICAL STAFF ID Date Data Source [id number] 12/18/2020 04:10:00 PM EDT [facility] ([facility]) Name Value Range Interpretation Code Description Data Vivian rce(s) Supporting Document(s) Patient Abo/Rh Laboratory test result ME DENT ([facility]) Specimen Expiration Date Laboratory test result [facility] ([facility]) Antibody Screen Laboratory test result M EDENT ([facility]) Testing site Laboratory test result MEDE NT ([facility]) Blood bank comment Laboratory test result [facility] ([facility]) BLOOD TYPE CONFIRMED. ID Date Data Source [id number] 12/18/2020 03:31:00 PM EDT [facility] ([facility]) Name Value Range Interpretation Code Description Data Vivian rce(s) Supporting Document(s) aPTT in Platelet poor plasma by Coagulation assay 130.9 s 22.0-34.3 Above upper panic limits [facility] ([facility]) ALERTED CRITICAL RESULT TO ALERTED CRITI MILLIE RESULT TO ALONZO [id number] ON D4 [id number] [id number] ID Date Data Source [id number] 12/18/2020 02:36:54 PM EDT [facility] Name Value Range Interpretation Code Description Data Vivian rce(s) Supporting Document(s) IR IS ARTERIOGRAM EXTREMITY SINGLE LEFT [facility] ID Date Data Source [id number] 12/18/2020 01:11:27 PM EDT [facility] Name Value Range Interpretation Code Description Data Vivian rce(s) Supporting Document(s) POC NOVA GLU 89 mg/dL (70-99) [facility] [place] [facility] STAFF ID Date Data Source [id number] 12/18/2020 01:10:57 PM EDT [facility] Name Value Range Interpretation Code Description Data Vivian rce(s) Supporting Document(s) POC NOVA GLU 72 mg/dL (70-99) [facility] [place] [facility] STA[facility] ID Date Data Source [id number] 12/18/2020 10:38:25 AM EDT [facility] Name Value Range Interpretation Code Description Data Vivian rce(s) Supporting Document(s) POC NOVA GLU 67 mg/dL (70-99) L [facility] [place] [facility] STA[facility] ID Date Data Source [id number] 12/18/2020 10:15:23 AM EDT [facility] Name Value Range Interpretation Code Description Data Vivian rce(s) Supporting Document(s) POC NOVA GLU 62 mg/dL (70-99) L [facility] [place] [facility] ID Date Data Source [id number] 12/18/2020 09:55:00 AM EDT [facility] Name Value Range Interpretation Code Description Data Vivian rce(s) Supporting Document(s) POC NOVA GLU 64 mg/dL (70-99) L [facility] [place] [facility] ID Date Data Source [id number] 12/18/2020 02:05:42 PM EDT [facility] Name Value Range Interpretation Code Description Data Vivian rce(s) Supporting Document(s) SODIUM 143 mmol/L (136-145) [facility] POTASSIUM 3.7 mmol/L (3.6-5.2) [facility] CHLORIDE 104 mmol/L (100-108) [facility] CO2 32 mmol/L (22-31) H [facility] ANION GAP 7 mmol/L (7-16) [facility] UREA NITROGEN 30 mg/dL (7-24) H [facility] CREATININE 1.37 mg/dL (0.60-1.00) H [facility] BUN/CREAT RATIO 21.9 RATIO (10.0-20.0) H [facility] GLUCOSE 36 mg/dL (70-99) L [facility] ALERTED CRITICAL RESULT HOLLIE([id number]) ON D.4(93636) AT 1402 ON 899091 [place] [address] CALCIUM 8.6 mg/dL (8.4-10.2) [facility] GFR 37 ml/min/1.73m2 (>59) L [facility] GFR ( AMER) 45 ml/min/1.73m2 (>59) L [facility] GFR INTERPRETATION [facility] --NORMAL KIDNEY FUNCTION OR MILD DISEASE - GFR >OR= 60CHRONIC KIDNEY DISEASE - GFR 15 - 59RENAL FAILURE - GFR <15 Est. GFR calculation based on the MDRDstudy equation, which assumes a steadystate for creatinine. Est. GFR should notbe used for medication dosing. ID Date Data Source [id number] 12/18/2020 12:35:41 PM EDT [facility] Name Value Range Interpretation Code Description Data Viivan rce(s) Supporting Document(s) PT 25.4 s (9.2-11.9) H [facility] INR 2.55 [facility] SUGGESTED THERAPEUTIC RANGES USING INR F ORSTABILIZED ANTICOAGULATED PATIENTS:STANDARD DOSE THERAPY INR 2.0-3.0 DVT, PE, PREVENT DVT OR EMBOLISMHIGH DOSE THERAPY INR 2.5-3.5 PREVENT EMBOLISM FROM MECHANICAL HEART VALVE ID Date Data Source [id number] 12/18/2020 12:10:53 PM EDT [facility] SPEC EXP DATE 12/21/2020ATI ENT ABO/Rh B POSITIVEANTIBODY SCREEN NEGATIVETESTING SITE PERFORMED AT [address] [place] [address] [id number] COMMENT BLOOD TYPE CONFIRMED. Name Value Range Interpretation Code Description Data Vivian rce(s) Supporting Document(s) TYPE AND SCREEN [facility] ID Date Data Source [id number] 12/18/2020 12:03:29 PM EDT [facility] Name Value Range Interpretation Code Description Data Vivian rce(s) Supporting Document(s) APTT 130.9 s (22.0-34.3) H [facility] ALERTED CRITICAL RESULT TOALERTED CRITIC AL RESULT TORAMONA [id number] [place] D4 [id number] [id number] ID Date Data Source [id number] 12/18/2020 10:57:24 AM EDT [facility] Name Value Range Interpretation Code Description Data Vivian rce(s) Supporting Document(s) WBC 8.8 10*3/uL (4.1-11.0) [facility] [place] RBC 3.57 10*6/uL (4.00-5.40) L [facility] HGB 10.8 g/dL (12.0-16.0) L [facility] HCT 32.5 % (36.0-47.0) L [facility] MCV 91.1 fL (80.0-95.0) [facility] MCH 30.3 pg (27.0-32.0) [facility] MCHC 33.3 g/dL (32.0-36.0) [facility] RDW 18.7 % (10.5-14.5) H [facility] PLT 173 10*3/uL (150-450) [facility] MPV 9.7 fL (7.1-10.7) [facility] ID Date Data Source [id number] 12/17/2020 10:03:40 PM EDT [facility] Name Value Range Interpretation Code Description Data Vivian rce(s) Supporting Document(s) HEMOGLOBIN A1C @ 9.6 % (4.0-6.0) H Lab [facility] Performed using Siemens Deland immunoassa y.Care must be taken when interpreting [id number] in patients with a hemoglobin variantor decreased erythrocyte lifespan. Values 5.7 - 6.4% suggest prediabetes.Values >=6.5% are diagnostic for diabetes.REFERENCE: DIABETES CARE 2018: 41(S13-S27).PERFORMED AT [address] [facility] [address] EST AVERAGE GLUCOSE 229 mg/dL Lab [facility] ID Date Data Source [id number] 12/17/2020 09:27:21 PM EDT Lab [facility] Name Value Range Interpretation Code Description Data Vivian rce(s) Supporting Document(s) APTT 37.3 s (22.0-34.3) H Lab [facility] ID Date Data Source [id number] 12/17/2020 08:24:00 PM EDT [facility] ([facility]) Name Value Range Interpretation Code Description Data Vivian rce(s) Supporting Document(s) Specimen Description Laboratory test result [facility] ([facility]) Influenza virus A Ab [Titer] in Serum by Complement fi xation Laboratory test result [facility] ([facility]) Respiratory syncytial virus Ab [Titer] in Serum by Com plement fixation Laboratory test result [facility] ([facility]) Influenza virus B Ab [Titer] in Serum by Complement fi xation Laboratory test result [facility] ([facility]) Laboratory comment [Text] in Report Narrative Laboratory test result [facility] ([facility]) SEE NOTE: THE U.S. FDA HAS MADE THIS CHARITO T AVAILABLE UNDER AN EMERGENCY USE AUTHORIZATION (EUA) FOR THE DETECTION AND/OR DIAGNOSIS OF THE VIRUS THAT CAUSES COVID-19. PERFORMED AT [address] [place] [id number] Laboratory test finding (navigational concept) Laboratory test result [facility] ([facility]) THIS ASSAY AMPLIFIES AND DETECTS THE TAR GET RNA USING REAL-TIME PCR. TESTING PERFORMED ON [employer] NEGATIVE 2019_NCOV RT-PCR RESULTS DO NOT PRECLUDE 2019_NCOV INFECTION AND SHOULD NOT BE USED THE SOLE BASIS FOR PATIENT MANAGEMENT DECISIONS. First Test Laboratory test result [facility] ([facility]) [facility] test result [facility] ([facility]) Illness or injury onset date and time Laboratory test result [facility] ([facility]) Symptomatic Laboratory test result MEDEN T ([facility]) Icu Laboratory test result [facility] ([facility]) Hospitalized Laboratory test result MEDE NT ([facility]) Laboratory test result [facility] ([facility]) Congregate Care Set Laboratory test result [facility] ([facility]) ID Date Data Source [id number] 12/17/2020 07:18:14 PM [facility] Name Date of Age Gend*PT [id number] Joy Dent 1940 80 years F IPPT Location Admission Date/Time Visit ID Attending [id number] 12/17/20 1158 --- Toyin Lopez MD([id number]) EPI ID CSN Admitting Provider [id number] Toyin Lopez MD([id number]) Attestation signed by Toyin Lopez MD at 12/17/2020 7:18 PMI saw and evaluated the patient and reviewed note. I agree with the history,physical and medical decision makingSignature: Toyin Lopez MDDate: December 17, 2020Time: 7:18 PM VASCULAR SURGERYADMISSION HISTORY AND PHYSICALJoy Carol Montes:[id number]: 1940Informant: The patient who is reliable as well as old medical recordsPrimary Care Provider: Maverick SRIVASTAVAending: TEJAS HuangubjectiveCC: Left lower extremity ischemia with [...] of rheumatic fever Hypertension Hypothyroidism on replacement FDC current use of anticoagulant coumadin Osteoarthritis PAD [...] closure, ROB; Surgeon: Elda Dinero MD; Location: [facility]; Service: Cardiac/ Open Heart; Laterality: N/A; cataract extractions 2003 and 2004 CHOLECYSTECTOMY CORONARY ANGIOPLASTY CORONARY STENT PLACEMENT CFX, RCA, LAD and PDA; most recent is PDA on EYE SURGERY cataract removaql with IOL's HYSTERECTOMY KIDNEY STONE SURGERY MULTIPLE TOOTH EXTRACTIONS full upper and lower dentures REFRACTIVE SURGERY TUBAL LIGATION VASCULAR SURGERY WISDOM TOOTH EXTRACTION [id number]:Medications Prior to AdmissionMedication Sig Dispense Refill Last [...] mouth 2 (two) times aday Insulin Glargine (TOUJEO SOLOSTAR SC) Inject 40 Units under the [...] Patient PhotoLeft foot12/17/2020 13:30Attached To:Hospital Encounter on 12/17/20BRETT Sharma | [facility] Cardiovascular Surgery UnitPhoto taken with patient's verbal [...] 09/14/2020 HGBA1C 7.7 (H) US1. 50-75% left WET MIX OPERATOR stenosis (204 cm/s).2. Areas of mildly increased velocities throughout the left SFA suggestive of<50% stenosis.3. Mildly increased velocities proximal popliteal artery suggestive of <50%stenosis.4. Runoff via DIRECT CARE SPECIALIST and peroneal arteries. Anterior tibial artery visualized midcalf, but not distally.5. 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 after midnight, IV hydration to mitigate contrast burdenOn Plavix and aspirinPain control with Tylenol and oxycodoneLeft great toe ulcerPainted with Betadine and wrapped with dry gauzeZosynCHF/hypertension/hyperlipidemia/CAD /history of [place]/history of mitral valvereplacement/history of CVACoumadin on hold. INR 2.38 todayHome meds ordered:Carvedilol, Diovan, xbjjfbflrdnoFF7Zokewgg over 200 on admission, on home insulinSliding scale insulin, Lantus with home meds on ntiyQ2i in the morningCKDCreatinine 1.65 on admission, GFR [...] rce(s) Supporting Document(s) ID Date Data Source [id number] 12/17/2020 03:10:00 PM EDT [facility] Name Value Range Interpretation Code Description Data Vivian rce(s) Supporting Document(s) SARS coronavirus 2 RNA [Presence] in Res piratory specimen by KIET with probe detection NOT DETECTED [place]OH This lab was reported by [facility]. ID Date Data Source [id number] 12/17/2020 04:25:18 PM EDT [facility] Name Value Range Interpretation Code Description Data Vivian rce(s) Supporting Document(s) SPECIMEN DESCRIPTION [facility] INFLUENZA A (NEG) [facility] INFLUENZA B (NEG) [facility] RSV (NEG) [facility] COMMENT [facility] THE U.S. FDA HAS MADE THIS TEST AVAILABL EUNDER AN EMERGENCY USE AUTHORIZATION(EUA) FOR THE DETECTION AND/OR DIAGNOSISOF THE VIRUS THAT CAUSES COVID-19.PERFORMED AT [address] [place] [id number] COVID19 RESULT (NDET) [facility] THIS ASSAY AMPLIFIES AND DETECTSTHE TARG ET RNA USING REAL-TIME PCR.TESTING PERFORMED ON [employer] GENEXPERTNEGATIVE 2019_NCOV RT-PCR RESULTS DONOT PRECLUDE 2019_NCOV INFECTION ANDSHOULD NOT BE USED THE SOLE BASISFOR PATIENT MANAGEMENT DECISIONS. FIRST TEST [facility] EMPLOYED IN HLTHCARE [facility] SYMPTOMATIC [facility] DATE OF SYMPT ONSET [facility] HOSPITALIZED [facility] [place] ICU [facility] CONGREGATE CARE SET [facility] ID Date Data Source [id number] 12/17/2020 03:05:45 PM EDT [facility] Name Value Range Interpretation Code Description Data Vivian rce(s) Supporting Document(s) EKG [facility] ESUTXk7xWjEEOwZjf8PlDsCjJAZaVS1djaj9N9J6zGXzF6HtyHUjr8esF7PfL7YwDYGwIMQUKE1DkINf jb2 [file] 4/fvz3/eF//chrome tanner//pX//8L//63/+SvT386//zz//6r3/Sr1gS9/cO40kEy//lP//P6fFs6t+ff/uMl948 [file] EQV/NBH0zn8ECXwz+BpBefWl2oEvtJ/n9Don37qCfYq/txlihho9U6/J9nEbyYG2n0HV/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 [file] bmRvYmoKeHJlZgogICAgIDAgICAgMjQKMDAwMDAwMD XsLPL5MOMyGRUhJHlwUHNrLQU7KIT1CEGlMPYqCL3cXnJySSVdYUU6LWJrLWBxGXQumgOQQORqTFGcLX B4UAHtMPZqQCQeUHbeJIHxIDXdWKOsHMJ4CHU0BFNxNxLsHQTpVJXqBXTrVGEzURKjbgESKXZwLYUqKR K7WEAqRPQbWPOzQRnwLNNiHHZtGEmwYZDoYRSrOH0t BlMxZIKhWZNfKYhtBGEpATBbuiVYSMVbNIPfGMOnQTTuEDPjDWHsYVbvGZBwHZWtONVgXVGkBIEuTK9k StYrJBMpESI1QKYqDHTeFZImctMNCUIsQJUcTPt8FQDuIBYxBMOzGArcYMCwNLYyUYZ3NTUuVFWhLL9s CbGaWVXlSOJ1FbAxHOAgOJYwunORYDCyUJUoARZ1Mn VkLNTfTKBdTCzpZNPtWOOaJSgcUFXlFQKqLS2sNlVeHKXlJJRtFBzbWBVrIJHiaeHYRADsCHLtDOAyKv KlRKBcKIYjAKmaNDVrSFP0Rvx5OKDcDEHtJH7mOaVoPBIzNXR0WCwgFIRdTJLpxjFTKEOuMGImMOviFA XhPBTsWRDwUIxuBJThQPYiTZJ5YODrELOiVF7fKaIl FKFyGMReEHPqSnU5SdTvUsFIkJAejIvjxmj3VPuoV5h2GKHrIEtdZU8chpWsQMDcKqrpYj4iiCQ4GICq CabVRg4Yp2BpahZ0szHpBmEnVGc4RzcvLELFGm== ID Date Data Source [id number] 12/17/2020 08:31:39 PM EDT [facility] Name Value Range Interpretation Code Description Data Vivian rce(s) Supporting Document(s) HEMOGLOBIN A1C @ 9.3 % (4.0-6.0) H [facility] Performed using Siemens Deland immunoassa y.Care must be taken when interpreting KoQ9tygzcdqz in patients with a hemoglobin variantor decreased erythrocyte lifespan. Values 5.7 - 6.4% suggest prediabetes.Values >=6.5% are diagnostic for diabetes.REFERENCE: DIABETES CARE 2018: 41(S13-S27).PERFORMED AT [address] [place] [address] EST AVERAGE GLUCOSE 220 mg/dL [facility] ID Date Data Source [id number] 12/17/2020 02:40:26 PM EDT [facility] Name Value Range Interpretation Code Description Data Vivian rce(s) Supporting Document(s) SODIUM 135 mmol/L (136-145) L [facility] POTASSIUM 4.9 mmol/L (3.6-5.2) [facility] CHLORIDE 96 mmol/L (100-108) L [facility] CO2 36 mmol/L (22-31) H [facility] ANION GAP 3 mmol/L (7-16) L [facility] UREA NITROGEN 36 mg/dL (7-24) H [facility] CREATININE 1.65 mg/dL (0.60-1.00) H [facility] BUN/CREAT RATIO 21.8 RATIO (10.0-20.0) H [facility] GLUCOSE 216 mg/dL (70-99) H [facility] CALCIUM 8.9 mg/dL (8.4-10.2) [facility] GFR 30 ml/min/1.73m2 (>59) L [facility] GFR ( AMER) 36 ml/min/1.73m2 (>59) L [facility] judah CROOK GFR INTERPRETATION [facility] --NORMAL KIDNEY FUNCTION OR MILD DISEASE - GFR >OR= 60CHRONIC KIDNEY DISEASE - GFR 15 - 59RENAL FAILURE - GFR <15 Est. GFR calculation based on the MDRDstudy equation, which assumes a steadystate for creatinine. Est. GFR should notbe used for medication dosing. ID Date Data Source [id number] 12/17/2020 02:16:38 PM EDT [facility] Name Value Range Interpretation Code Description Data Vivian rce(s) Supporting Document(s) APTT 37.8 s (22.0-34.3) H [facility] ID Date Data Source [id number] 12/17/2020 02:16:38 PM EDT [facility] Name Value Range Interpretation Code Description Data Vivian rce(s) Supporting Document(s) PT 23.8 s (9.2-11.9) H [facility] INR 2.38 [facility]OOK SUGGESTED THERAPEUTIC RANGES USING INR F ORSTABILIZED ANTICOAGULATED PATIENTS:STANDARD DOSE THERAPY INR 2.0-3.0 DVT, PE, PREVENT DVT OR EMBOLISMHIGH DOSE THERAPY INR 2.5-3.5 PREVENT EMBOLISM FROM MECHANICAL HEART VALVE ID Date Data Source [id number] 12/17/2020 02:07:30 PM EDT [facility] jud[facility]OOK Name Value Range Interpretation Code Description Data Vivian rce(s) Supporting Document(s) WBC 8.6 10*3/uL (4.1-11.0) [facility] [place] RBC 3.85 10*6/uL (4.00-5.40) L [facility] HGB 11.5 g/dL (12.0-16.0) L [facility] HCT 34.8 % (36.0-47.0) L [facility] MCV 90.5 fL (80.0-95.0) [facility] MCH 30.0 pg (27.0-32.0) [facility] MCHC 33.1 g/dL (32.0-36.0) [facility] RDW 18.6 % (10.5-14.5) H [facility] PLT 179 10*3/uL (150-450) [facility] MPV 9.4 fL (7.1-10.7) [facility] ID Date Data Source [id number] 12/11/2020 10:47:00 AM EDT [facility] ([facility]) Name Value Range Interpretation Code Description Data Vivian rce(s) Supporting Document(s) Laboratory test finding (navigational concept) Laboratory test result [facility] ([facility]) Sent to DR.K Cm(he follows her Coumadi [...] mg/dL 0.7-1.5 [facility] ([facility]) Sent to DR.K Cm(he follows her Coumadi n) Calcium 9.2 mg/dL 8.4-10.2 [facility] ([facility]) Sent to DR.K Cm(he follows her Coumadi n) BUN/Creat 21 8-27 [facility] ([facility]) Sent to DR.K Cm(he follows her Coumadi n) Anion Gap 10.0 mmol/L 8.0-16.0 [facility] ([facility]) Sent to DR.K Cm(he follows her Coumadi n) Laboratory test finding (navigational concept) Laboratory test result [facility] ([facility]) Sent to DR.K Cm(he follows her Coumadi n) Laboratory test finding (navigational concept) 80 yrs [facility] ([facility]) Sent to DR.K Cm(he follows her Coumadi n) Laboratory test finding (navigational concept) 36 mL/min [facility] ([facility]) Sent to DR.K Cm(he follows her Coumadi n) ID Date Data Source [id number] 12/11/2020 10:47:00 AM EDT [facility] ([facility]) Name Value Range Interpretation Code Description Data Vivian rce(s) Supporting Document(s) Laboratory test finding (navigational concept) Laboratory test result [facility] ([facility]) Sent to DR.K Cm(he follows her Coumadi n) WBC 8.1 10^3/uL 4.2-11.0 [facility] ([facility]) Sent to DR.K Cm(he follows her Coumadi n) Hemoglobin 11.1 g/dL 12.0-16.0 [facility] ([facility]) Sent to DR.K Cm(he follows her Coumadi n) Hematocrit 33.6 % 37.0-47.0 [facility] ([facility]) Sent to DR.K Cm(he follows her Coumadi n) RBC 3.62 10^6/uL 4.20-5.40 [facility] ([facility]) Sent to DR.K Cm(he follows her Coumadi n) MCV 92.8 fL 81.0-101 [facility] ([facility]) Sent to DR.K Cm(he follows her Coumadi n) MCH 30.7 pg 27.0-34.0 [facility] ([facility]) Sent to DR.K Cm(he follows her Coumadi n) MCHC 33.0 g/dL 31.0-36.0 [facility] ([facility]) Sent to DR.K Cm(he follows her Coumadi n) Platelets 175 10^3/uL 150-450 [facility] ([facility]) Sent to DR.K Cm(he follows her Coumadi n) RDW 17.7 % 11.5-14.5 [facility] ([facility] Sent to DR.K Cm(he follows her Coumadi n) Neut 69.3 % 37.0-80.0 [facility] ([facility] Sent to DR.K mC(he follows her Coumadi n) MPV 11.7 fL 7.4-10.4 [facility] ([facility] Sent to DR.K Cm(he follows her Coumadi n) Lymph 15.9 % 25.0-40.0 [facility] ([facility] Sent to DR.K Cm(he follows her Coumadi n) Henderson 10.5 % 3.0-8.0 [facility] ([facility] Victor M [...] 0.29 10^3/uL 0.00-0.70 [facility] ([facility]) Sent to DR.K Cm(he follows her Coumadi n) Laboratory test finding (navigational concept) 0.04 10^3/uL 0.00-0.20 [facility] ([facility]) Sent to DR.K Cm(he follows her Coumadi n) Laboratory test finding (navigational concept) 0.85 10^3/uL 0.00-0.90 [facility] ([facility]) Sent to DR.K Cm(he follows her Coumadi n) Laboratory test finding (navigational concept) 0.02 10^3/uL 0.00-0.10 [facility] ([facility]) Sent to DR.K Cm(he follows her Coumadi n) Laboratory test finding (navigational concept) 0.00 10^3/uL 0.00-0.00 [facility] ([facility]) Sent to DR.K Cm(he follows her Coumadi n) Manual Diff Laboratory test result [facility]EN T ([facility]) Sent to DR.K Cm(he follows her Coumadi n) Laboratory test finding (navigational concept) Laboratory test result [facility] ([facility]) Sent to DR.K Cm(he follows her Coumadi n) ID Date Data Source [id number] 12/11/2020 10:47:00 AM EDT [facility] ([facility]) Name Value Range Interpretation Code Description Data Vivian rce(s) Supporting Document(s) Protime 29.8 s 11.0-15.5 [facility] ([facility]) Sent to DR.K Cm(he follows her Coumadi n) Inr 2.79 0.93-1.23 [facility] ([facility]) Sent to DR.K Cm(he follows her Coumadi n) PTT 49.2 s 24.8-36.7 [facility] ([facility]) Sent to DR.K Cm(he follows her Coumadi n) ID Date Data Source [id number] 12/11/2020 11:31:00 AM EDT [facility] Name Value Range Interpretation Code Description Data Vivian rce(s) Supporting Document(s) BASIC METABOLIC PANEL [facility] BASIC METABOLIC PANEL Sodium [Moles/volume] in Serum or Plasma 139 mEq/L 134 - 153 [facility] Potassium [Moles/volume] in Serum or Plasma 4.4 mEq/L 3.6 - 5.0 [facility] Chloride [Moles/volume] in Serum or Plasma 95 mEq/L 98 - 107 L [facility] Carbon dioxide, total [Moles/volume] in Serum or Plasma 34 MEQ/L 22 - 30 H [facility] Glucose [Mass/volume] in Serum or Plasma 226 MG/DL 70 - 99 H [facility] BUN 31 MG/DL 7 - 21 [facility] Creatinine [Mass/volume] in Serum or Plasma 1.5 MG/DL 0.7 - 1.5 [facility] BUN/CREAT 21 8 - 27 [facility] Calcium [Mass/volume] in Serum or Plasma 9.2 MG/DL 8.4 - 10.2 [facility] Anion gap 3 in Serum or Plasma 10.0 mmol/L 8.0 - 16.0 [facility] [address] [facility] AMER GFR >60 [facility] NON-AA GFR 36 mL/min [facility] Male GFR Inter prentation 20-49 yrs [...] >32 mL/min Normal ID Date Data Source [id number] 12/11/2020 11:09:00 AM EDT [facility] Name Value Range Interpretation Code Description Data Vivian rce(s) Supporting Document(s) CBC W/AUTOMATED DIFF [facility] COMPLETE BLOOD COUNT Leukocytes [#/volume] in Blood by Automated count 8.1 10^3/uL 4.2 - 1 1.0 [facility] Erythrocytes [#/volume] in Blood by Automated count 3.62 10^6/uL 4. 20 - 5.40 L [facility] Hemoglobin [Mass/volume] in Blood 11.1 g/dL 12.0 - 16.0 L [facility] Hematocrit [Volume Fraction] of Blood by Automated count 33.6 % 3 7.0 - 47.0 L [facility] Erythrocyte mean corpuscular volume [Entitic volume] by Auto mated count 92.8 fL 81.0 - 101 [facility] Erythrocyte mean corpuscular hemoglobin [Entitic mass] by Automated count 30.7 pg 27.0 - 34.0 [facility] Erythrocyte mean corpuscular hemoglobin concentration [Mass/volume] by Automated count 33.0 g/dL 31.0 - 36.0 [facility] Erythrocyte distribution width [Ratio] by Automated count 17.7 % 11.5 - 14.5 H [facility] Platelets [#/volume] in Blood by Automated count 175 10^3/uL 150 - 45 0 [facility] Platelet mean volume [Entitic volume] in Blood by Automated count 11.7 fL 7.4 - 10.4 H [facility] Neutrophils/100 leukocytes in Blood by Automated count 69.3 % 37. 0 - 80.0 [facility] Lymphocytes/100 leukocytes in Blood by Manual count 15.9 % 25.0 - 40.0 L [facility] Monocytes/100 leukocytes in Blood by Automated count 10.5 % 3.0 - 8.0 H [facility] Eosinophils/100 leukocytes in Blood by Automated count 3.6 % 0.0 - 7.0 [facility] Basophils/100 leukocytes in Blood by Automated count 0.5 % 0.0 - 2.5 [facility] %IG 0.2 % 0.0 - 0.[address] %NRBC 0.0 % 0.0 - 0.0 [facility] Neutrophils [#/volume] in Blood by Automated count 5.62 10^3/uL 2.00 - 6.90 [facility] Lymphocytes [#/volume] in Blood by Automated count 1.29 10^3/uL 0.60 - 3.40 [facility] Monocytes [#/volume] in Blood by Automated count 0.85 10^3/uL 0.00 - 0.90 [facility] Eosinophils [#/volume] in Blood by Automated count 0.29 10^3/uL 0.00 - 0.70 [facility] Basophils [#/volume] in Blood by Automated count 0.04 10^3/uL 0.00 - 0.20 [facility] #IG 0.02 10^3/uL 0.00 - 0.10 [facility] #NRBC 0.00 10^3/uL 0.00 - 0.00 [facility] MANUAL DIFF NOT INDICATED [facility] RBC MORPH NOT INDICATED [facility] sp[facility] ID Date Data Source [id number] 12/11/2020 11:18:00 AM EDT [facility] Name Value Range Interpretation Code Description Data [facility] Supporting Document(s) Prothrombin time (PT) 29.8 SECONDS 11.0 - 15.5 [facility] INR in Platelet poor plasma by Coagulation assay 2.79 0.93 - 1. 23 H [facility] aPTT in Blood by Coagulation assay 49.2 SECONDS 24.8 - 36.7 H [facility] \\BLDo\\INR INTERPRETATION\\BLDx\\ Therapeutic range for Coumadin and related oral anticoagulants. - International Normalized Ratio (INR): 2.0 - 3.0 for Venous Thrombosis, Pulmonary Embolus, Tissue heart valves, Acute [place] Atrial Fibrillation, Valvular heart disease and recurrent Systemic Embolism. - International Normalized Ratio (INR): 2.5 - 3.5 for Mechanical Prosthetic valve. ID Date Data Source [id number] 11/27/2020 12:00:00 PM EDT [facility] (Larios Deepak [employer]) Name Value Range Interpretation Code Description Data [facility](s) Supporting Document(s) TP Reflex HPV ASCUS Laboratory test result [facility] (Larios Woman [employer]) SPECIMEN PART------ A. Cervical, Endocervical, ThinPrep Pap (Sewer Connector) CYTOLOGY HX-------- Other Information: Post-menopausal FINAL DIAGNOSIS---- INTERPRETATION: Negative for Intraepithelial Lesion or Malignancy. SPECIMEN ADEQUACY:Satisfactory for evaluation. Endocervical/transformation zone component present. ADDITIONAL FINDINGS:Fungal organisms consistent with Mirian spp. TP Reflex HPV ASCUS Laboratory test result [facility] (Larios Woman [employer]) ID Date Data Source [id number] 10/12/2020 09:42:00 [place] [address] PROGRESS NOTENAME: ANNA Medina ROOM#: 107-1DATE OF : 1940 MR#: [id number] DATE: 10/09/20 OF SERVICE: 10/12/2020UBJECTIVE:Patient has known [...] will do discharge planning.DD: Bolivar Sotomayor MD, PC 10/12/20 09:06DT: [place] 10/12/20 09:42DS: Bolivar Sotomayor MD, PC 10/26/20 08:33 1 Name Value Range Interpretation Code Description Data Vivian rce(s) Supporting Document(s) ID Date Data Source [id number] 10/13/2020 02:15:00 [place] [address] DISCHARGE SUMMARYNAME: ANNA Medina ROOM#: 107-1DATE OF : 1940 MR#: [id number] PHYS: Bolivar Sotomayor MD, PC DATE: 10/09/20 [...] Troponin was normal. INR 2.54, hemoglobin 12.7, [id number], potassium 4.2, BUN 26, creatinine 1.4. Repeat [...] mg daily.16. Valsartan 40 mg daily. [address] [place] [address] DISCHARGE SUMMARYNAME: ANNA Medina ROOM#: 107-1DATE OF : 1940 MR#: [id number] PHYS: Bolivar Sotomayor MD, DATE: 10/09/20 DISCHARGED: [...] OF HYPERLIPIDEMIA.DD: Bolivar Sotomayor MD, 10/13/20 12:25DT: [facility] 10/13/20 14:15DS: Bolivar Sotomayor MD, 10/26/20 08:33 2 Name Value Range Interpretation Code Description Data Vivian rce(s) Supporting Document(s) ID Date Data Source [id number] 10/19/2020 11:42:00 [place] [address] PHONE: [phone] FAX: [phone] Name .................. : ANNA Medina Acct Number.................. : [id number] ROOM. ................. : 107-1 MR Number ................... : [id number] Stay type ............. : I/P Discharge Date......... ... : Admit Date ......... : 10/09/20 Admit Phys .................... : MANUEL ALIZE Date of ....... : 1940 Family Phys ................... : NAUN [employer] Phone .................. : [phone] Age ................................ : 80 Film# .................. .:[id number] Sex ................................. : F Unsigned transcriptions are preliminary reports and do not represent a medical or legal document CHEST 2 VIEWS 00349 COMPLETE:10/11/20 06:31 RLB 83530 Reason for Exam: CHF CHEST X-RAY: 2-VIEWS [...] MD , 10/19/20 11:42, MAMADOU Transcribe Initials: DZ , Transcribe Date: 10/11/20 08:41, Dictation Date: Copy for: 710 MED REC DISCHARGED Page 1 of 1 Name Value Range Interpretation Code Description Data Vivian rce(s) Supporting Document(s) ID Date Data Source [id number] 10/13/2020 10:14:00 [place] [address] PHONE: [phone] FAX: [phone] Name .................. : ANNA Medina Acct Number.................. : [id number] ROOM. ................. : 107-1 MR Number ................... : [id number] Stay type ............. : I/P Discharge Date......... ... : Admit Date ......... : 10/09/20 Admit Phys .................... : MANUEL ALIZE Date of ....... : 1940 Family Phys ................... : NAUN CHAIDEZJASSON Phone .................. : [phone] Age ................................ : 80 Film# .................. .:[id number] Sex ................................. : F Unsigned transcriptions are preliminary reports and do not represent a medical or legal document CHEST 2 VIEWS 43298 COMPLETE:10/12/20 06:22 RLB [id number] Reason for Exam: CHF CHEST X-RAY: 2-VIEWS [...] 10/12/20 16:38, Dictation Date: Copy for: 002 [facility] Copy for: 710 MED REC Page 1 of 1 Name Value Range Interpretation Code Description Data Vivian rce(s) Supporting Document(s) ID Date Data Source [id number] 10/13/2020 05:46:00 AM EDT [facility] (Bolivra Sotomayor [facility]) Name Value Range Interpretation [...] Thrombosis, Pulmonary Embolus, Tissue heart valves, Acute [place], Atrial Fibrillation, Valvular heart disease and recurrent Systemic Embolism. -International Normalized Ratio (INR): 2 .5 - 3.5 for Mechanical Prosthetic valve. ID Date Data Source [id number] 10/13/2020 05:46:00 AM EDT [facility] (Bolivar Sotomayor [...] (Bolivar Sotomayor MD) ID Date Data Source [id number] 10/13/2020 05:46:00 AM EDT [facility] (Bolivar Sotomayor [...] >32 mL/min Normal ID Date Data Source [id number] 10/13/2020 05:46:00 AM EDT [facility] (Bolivar Sotomayor MD) Name Value Range Interpretation Code Description Data Vivian e(s) Supporting Document(s) Magnesium [Mass/volume] in Serum or Plasma 2.2 mg/dL 1.7-2.2 [facility] (Bolivar Sotomayor MD) ID Date Data Source [id number] 10/13/2020 07:15:00 AM EDT [facility] Name Value Range Interpretation Code Description Data Vivian rce(s) Supporting Document(s) CBC W/AUTOMATED DIFF [facility] COMPLETE BLOOD COUNT Leukocytes [#/volume] in Blood by Automated count 8.6 10^3/uL 4.2 - 1 1.0 [facility] Erythrocytes [#/volume] in Blood by Automated count 3.74 10^6/uL 4. 20 - 5.40 L [facility] Hemoglobin [Mass/volume] in Blood 11.7 g/dL 12.0 - 16.0 L [facility] Hematocrit [Volume Fraction] of Blood by Automated count 35.7 % 3 7.0 - 47.0 L [facility] Erythrocyte mean corpuscular volume [Entitic volume] by Auto mated count 95.5 fL 81.0 - 101 [facility] Erythrocyte mean corpuscular hemoglobin [Entitic mass] by Automated count 31.3 pg 27.0 - 34.0 [facility] Erythrocyte mean corpuscular hemoglobin concentration [Mass/volume] by Automated count 32.8 g/dL 31.0 - 36.0 [facility] Erythrocyte distribution width [Ratio] by Automated count 16.5 % 11.5 - 14.5 H [facility] Platelets [#/volume] in Blood by Automated count 171 10^3/uL 150 - 45 0 [facility] Platelet mean volume [Entitic volume] in Blood by Automated count 11.5 fL 7.4 - 10.4 H [facility] Neutrophils/100 leukocytes in Blood by Automated count 70.1 % 37. 0 - 80.0 [facility] Lymphocytes/100 leukocytes in Blood by Manual count 12.8 % 25.0 - 40.0 L [facility] Monocytes/100 leukocytes in Blood by Automated count 13.5 % 3.0 - 8.0 H [facility] Eosinophils/100 leukocytes in Blood by Automated count 3.1 % 0.0 - 7.0 [facility] Basophils/100 leukocytes in Blood by Automated count 0.3 % 0.0 - 2.5 [facility] %IG 0.2 % 0.0 - 0.[address] [facility] %NRBC 0.0 % 0.0 - 0.0 [facility] al Neutrophils [#/volume] in Blood by Automated count 6.04 10^3/uL 2.00 - 6.90 [facility] Lymphocytes [#/volume] in Blood by Automated count 1.10 10^3/uL 0.60 - 3.40 [facility] Monocytes [#/volume] in Blood by Automated count 1.16 10^3/uL 0.00 - 0.90 H [facility] Eosinophils [#/volume] in Blood by Automated count 0.27 10^3/uL 0.00 - 0.70 [facility] Basophils [#/volume] in Blood by Automated count 0.03 10^3/uL 0.00 - 0.20 [facility] #IG 0.02 10^3/uL 0.00 - 0.10 [facility] #NRBC 0.00 10^3/uL 0.00 - 0.00 [facility] MANUAL DIFF SEE BELOW [facility] ital Segmented neutrophils/100 leukocytes in Blood by Manual count 72 % 37 - 80 [facility] %LYMPH 13 % 25 - 40 L [facility] al %MONO 14 % 3 - 8 H [facility] %EOS 1 % 0 - 7 [facility] al RBC MORPH NOT INDICATED [facility] ID Date Data Source [id number] 10/13/2020 07:14:00 AM EDT [facility] Name Value Range Interpretation Code Description Data Vivian rce(s) Supporting Document(s) COMPREHENSIVE METABOLIC PANEL [facility] COMPREHENSIVE METABOLIC PANEL Sodium [Moles/volume] in Serum or Plasma 139 mEq/L 134 - 153 [facility] Potassium [Moles/volume] in Serum or Plasma 4.4 mEq/L 3.6 - 5.0 [facility] Chloride [Moles/volume] in Serum or Plasma 96 mEq/L 98 - 107 L [facility] Carbon dioxide, total [Moles/volume] in Serum or Plasma 36 MEQ/L 22 - 30 H [facility] Glucose [Mass/volume] in Serum or Plasma 126 MG/DL 70 - 99 H [facility] BUN 26 MG/DL 7 - [address] [facility] Creatinine [Mass/volume] in Serum or Plasma 1.2 MG/DL 0.7 - 1.5 [facility] BUN/CREAT 22 8 - 27 [facility] Protein [Mass/volume] in Serum or Plasma 5.6 G/DL 6.3 - 8.2 L [facility] Albumin [Mass/volume] in Serum or Plasma 3.4 G/DL 3.9 - 5.0 L [facility] Globulin [Mass/volume] in Serum by calculation 2.2 GM/DL 2.4 - 3.2 L [facility] A/G RATIO 1.5 0.8 - 2.0 [facility] Calcium [Mass/volume] in Serum or Plasma 8.7 MG/DL 8.4 - 10.2 [facility] Bilirubin.total [Mass/volume] in Serum or Plasma 0.9 MG/DL 0.2 - 1.3 [facility] Alkaline phosphatase [Enzymatic activity/volume] in Serum or Plasma 292 U/L 38 - 126 H [facility] Aspartate aminotransferase [Enzymatic activity/volume] in Serum or Plasma 17 U/L 5 - 40 [facility] Alanine aminotransferase [Enzymatic activity/volume] in Seru m or Plasma 12 U/L 7 - 56 [facility] Anion gap 3 in Serum or Plasma 7.0 mmol/L 8.0 - 16.0 L [facility] AGE 80 yrs [facility] NON-AA GFR 46 mL/min [facility] AFR AMER GFR >60 [facility] Male GFR In terprentation [...] >32 mL/min Normal ID Date Data Source [id number] 10/13/2020 07:13:00 AM EDT [facility] Name Value Range Interpretation Code Description Data Vivian rce(s) Supporting Document(s) Magnesium [Mass/volume] in Serum or Plasma 2.2 MG/DL 1.7 - 2.2 [facility] ID Date Data Source [id number] 10/13/2020 06:40:00 AM EDT [facility] Name Value Range Interpretation Code Description Data Vivian rce(s) Supporting Document(s) Prothrombin time (PT) 19.6 SECONDS 11.0 - 15.5 [facility] INR in Platelet poor plasma by Coagulation assay 1.64 0.93 - 1. 23 H [facility] \\BLDo\\INR INTERPRETATION\\BLDx\\ Therapeutic range for Coumadin and related oral anticoagulants. - International Normalized Ratio (INR): 2.0 - 3.0 for Venous Thrombosis, Pulmonary Embolus, Tissue heart valves, Acute [place], Atrial Fibrillation, Valvular heart disease and recurrent Systemic Embolism. -International Normalized Ratio (INR): 2.5 - 3.5 for Mechanical Prosthetic valve. ID Date Data Source [id number] 10/12/2020 07:08:00 [place] [address] RESPIRATORY CARE REPORT ==== ---------NAME------- NUMBER SEX AGE ADMIT DISC. XRAY# F/C BRENNON Medina [id number] F 80 10/09/20 [id number] M4 I/P DATE OF : 1940 M/R# [id number] #: [id number] 107-1 LOCATION: EMERGENCY DEPT EKG 70296 COMP LETE:10/12/20 08:[address] [place] [address] PHYSICIAN: MANUEL HERRMANN Name Value Range Interpretation Code Description Data Vivian rce(s) Supporting Document(s) ID Date Data Source [id number] 10/12/2020 10:12:00 [place] [address] PHONE: [phone] FAX: [phone] Name .................. : ANNA Medina Acct Number.................. : [id number] ROOM. ................. : 107-1 MR Number ................... : [id number] Stay type ............. : I/P Discharge Date......... ... : Admit Date ......... : 10/09/20 Admit Phys .................... : MANUEL ALIZE Date of ....... : 1940 Family Phys ................... : NAUN [employer] Phone .................. : [phone] Age ................................ : 80 Film# .................. .:[id number] Sex ................................. : F Unsigned transcriptions are preliminary reports and do not represent a medical or legal document CT CTA CHEST NON-CORONARY W C 39743 COMPLETE:10/09/20 15:44 MICHELLE 98211 Reason(s): shortness of breath elevated d dimer [...] [address] [place] [address] PHONE: [phone] FAX: [phone] Name .................. : ANNA ALLEN Carol Acct Number.................. : [id number] ROOM. ................. : 107- MR Number ................... : [id number] Stay type ............. : I/P Discharge Date......... ... : Admit Date ......... : 10/09/20 Admit Phys .................... : MANUEL HERRMANN Date of ....... : 1940 Family Phys ................... : NAUN MTZ Phone .................. : [phone] Age ................................ : 80 Film# .................. .:[id number] Sex ................................. : F Unsigned transcriptions are preliminary reports and do not represent a medical or legal document CT CTA CHEST NON- CORONARY Giorgi Bartolo [id number] COMPLETE:10/09/20 15:44 MICHELLE [id number] Reason(s): shortness of breath elevated d dimer r/o PE Method of administration: Intravenous Electronically Reviewed and Signed By Anselmo Bernstein M.D. , 10/12/20 10:12, [place] Transcribe Initials: MILLY , Transcribe Date: 10/09/20 18:24, Dictation Date: Copy for: 002 [facility] Copy for: 710 [facility] REC Page 2 of 2 Name Value Range Interpretation Code Description Data Vivian rce(s) Supporting Document(s) ID Date Data Source [id number] 10/11/2020 10:07:00 [place] [address] PROGRESS NOTENAME: ANNA Medina ROOM#: 107-1DATE OF : 1940 MR#: [id number] DATE: 10/09/20 OF SERVICE: 10/11/20SUBJECTIVE: This patient [...] of the chest will be done tomorrow.DD: Bolivar Sotomayor MD, PC 10/11/20 11:10DT: JAMEE 10/11/20 22:02DS: Bolivar Sotomayor MD, PC 10/12/20 09:22 1 Name Value Range Interpretation Code Description Data Vivian rce(s) Supporting Document(s) ID Date Data Source [id number] 10/11/2020 02:37:00 [place] [address] PROGRESS NOTENAME: ANNA Medina ROOM#: 107-1DATE OF : 1940 MR#: [id number] DATE: 10/09/20 OF SERVICE: 10/10/20SUBJECTIVE: This patient [...] daily.DD: Bolivar Sotomayor MD, PC 10/10/20 11:24DT: JAMEE 10/11/20 02:33DS: Bolivar Sotomayor MD, PC 10/12/20 09:22 1 Name Value Range Interpretation Code Description Data Vivian rce(s) Supporting Document(s) ID Date Data Source [id number] 10/10/2020 05:28:00 [place] [address] HISTORY AND PHYSICALNAME: ANNA Medina ROOM#: 107-1DATE OF : 1940 MR#: [id number] PHYS: Bolivar Sotomayor MD, PC [facility] [id number] DATE: 10/09/20CHIEF COMPLAINT: This 80-year-old white female [...] or melena. No hematuria.PERSONAL HISTORY:Nonsmoker.FAMILY HISTORY: [address] [place] [address] HISTORY AND PHYSICALNAME: ANNA Medina ROOM#: 107-1DATE OF : 1940 MR#: [id number] PHYS: Bolivar Sotomayor MD, PC DATE: 10/09/20Father of hypertension and stroke. Mother [...] Pulse was 60. Temperature 98. Respirations 18. O5kgdgbrshlf is 98%.HEENT: Head is normal. Pupils and [...] artery disease. 6. History of PAD. [address] [place] [address] HISTORY AND PHYSICALNAME: RITJewell Medina ROOM#: 107-1DATE OF : 1940 MR#: [id number] PHYS: Bolivar Sotomayor MD, PC DATE: 10/09/20 7. History of stent to the left common femoral artery and superficial artery. 8. History of hyperlipidemia.PLAN:This patient will be put on a Lasix drip at 10 mg/hr. Vasodilator therapy will be used. Probably we will useEntresto to improve cardiac function as a vasodilator and Coreg will be used too.DD: Bolivar Sotomayor MD, PC 10/09/20 18:07DT: DMJewell 10/10/20 04:38DS: Bolivar Sotomayor MD, PC 10/12/20 09:22 3 Name Value Range Interpretation Code Description Data Vivian rce(s) Supporting Document(s) ID Date Data Source [id number] 10/12/2020 05:43:00 AM EDT [facility] (Bolivar Sotomayor [...] (navigational concept) 0 % 0-2 [facility] (Bolivar Sotomyaor MD) ID Date Data Source [id number] 10/12/2020 05:43:00 AM EDT [facility] (Bolivar Sotomayor [...] >32 mL/min Normal ID Date Data Source [id number] 10/12/2020 05:43:00 AM EDT [facility] (Bolivar Sotomayor MD) Name Value Range Interpretation Code Description Data Vivian rce(s) Supporting Document(s) Magnesium [Mass/volume] in Serum or Plasma 1.9 mg/dL 1.7-2.2 [facility] (Bolivar Sotomayor MD) ID Date Data Source [id number] 10/12/2020 05:43:00 AM EDT [facility] (Bolivar Sotomayor MD) Name Value Range Interpretation Code Description Data Vivian rce(s) Supporting Document(s) Laboratory test finding (navigational concept) 1.76 0 .93-1.23 Above high normal [facility] (Bolivar Sotomayor MD) \\BLDo\\INR INTERPRETATION\\BLDx\\ Therapeutic range for Coumadin and related oral anticoagulants. -International Normalized Ratio (INR): 2 .0 - 3.0 for Venous Thrombosis, Pulmonary Embolus, Tissue heart valves, Acute [place], Atrial Fibrillation, Valvular heart disease and recurrent Systemic Embolism. -International Normalized Ratio (INR): 2 .5 - 3.5 for Mechanical Prosthetic valve. Laboratory test finding (navigational concept) 20.8 s 1 1.0-15.5 Above high normal [facility] (Bolivar Sotomayor MD) ID Date Data Source [id number] 10/12/2020 07:47:00 AM EDT [facility] Name Value Range Interpretation Code Description Data Vivian rce(s) Supporting Document(s) CBC W/AUTOMATED DIFF [facility] COMPLETE BLOOD COUNT Leukocytes [#/volume] in Blood by Automated count 8.1 10^3/uL 4.2 - 1 1.0 [facility] Erythrocytes [#/volume] in Blood by Automated count 3.78 10^6/uL 4. 20 - 5.40 L [facility] Hemoglobin [Mass/volume] in Blood 11.7 g/dL 12.0 - 16.0 L [facility] Hematocrit [Volume Fraction] of Blood by Automated count 35.8 % 3 7.0 - 47.0 L [facility] Erythrocyte mean corpuscular volume [Entitic volume] by Auto mated count 94.7 fL 81.0 - 101 [facility] Erythrocyte mean corpuscular hemoglobin [Entitic mass] by Automated count 31.0 pg 27.0 - 34.0 [facility] Erythrocyte mean corpuscular hemoglobin concentration [Mass/volume] by Automated count 32.7 g/dL 31.0 - 36.0 [facility] Erythrocyte distribution width [Ratio] by Automated count 16.4 % 11.5 - 14.5 H [facility] Platelets [#/volume] in Blood by Automated count 170 10^3/uL 150 - 45 0 [facility] Platelet mean volume [Entitic volume] in Blood by Automated count 11.0 fL 7.4 - 10.4 H [facility] Neutrophils/100 leukocytes in Blood by Automated count 66.6 % 37. 0 - 80.0 [facility] Lymphocytes/100 leukocytes in Blood by Manual count 15.8 % 25.0 - 40.0 L [facility] Monocytes/100 leukocytes in Blood by Automated count 13.1 % 3.0 - 8.0 H [facility] Eosinophils/100 leukocytes in Blood by Automated count 3.9 % 0.0 - 7.0 [facility] 0.5 %IG 0.1 % 0.0 - 0.[address] [facility] %NR[facility] 0.0 % 0.0 - 0.0 [facility] al Neutrophils [#/volume] in Blood by Automated count 5.41 10^3/uL 2.00 - 6.90 [facility] Lymphocytes [#/volume] in Blood by Automated count 1.28 10^3/uL 0.60 - 3.40 [facility] Monocytes [#/volume] in Blood by Automated count 1.06 10^3/uL 0.00 - 0.90 H [facility] Eosinophils [#/volume] in Blood by Automated count 0.32 10^3/uL 0.00 - 0.70 [facility] Basophils [#/volume] in Blood by Automated count 0.04 10^3/uL 0.00 - 0.20 [facility] #IG 0.01 10^3/uL 0.00 - 0.10 [facility] #NRBC 0.00 10^3/uL 0.00 - 0.00 [facility] MANUAL DIFF SEE BELOW [facility] ital Segmented neutrophils/100 leukocytes in Blood by Manual count 62 % 37 - 80 [facility] BAND 0 % 0 - 5 [facility] %LYMPH 26 % 25 - [facility] %MONO 9 % 3 - [address] [facility] %EOS 3 % 0 - 7 [facility] 0 RBC MORPH NOT INDICATED [facility] ID Date Data Source [id number] 10/12/2020 07:32:00 AM EDT [facility] Name Value Range Interpretation Code Description Data Vivian rce(s) Supporting Document(s) COMPREHENSIVE METABOLIC PANEL [facility] COMPREHENSIVE METABOLIC PANEL Sodium [Moles/volume] in Serum or Plasma 140 mEq/L 134 - 153 [facility] Potassium [Moles/volume] in Serum or Plasma 4.0 mEq/L 3.6 - 5.0 [facility] Chloride [Moles/volume] in Serum or Plasma 98 mEq/L 98 - 107 [facility] Carbon dioxide, total [Moles/volume] in Serum or Plasma 36 MEQ/L 22 - 30 H [facility] Glucose [Mass/volume] in Serum or Plasma 51 MG/DL 70 - 99 L [facility] BUN 24 MG/DL 7 - 21 H [facility] al Creatinine [Mass/volume] in Serum or Plasma 1.3 MG/DL 0.7 - 1.5 [facility] BUN/CREAT 18 8 - 27 [facility] al Protein [Mass/volume] in Serum or Plasma 5.6 G/DL 6.3 - 8.2 L [facility] Albumin [Mass/volume] in Serum or Plasma 3.3 G/DL 3.9 - 5.0 L [facility] Globulin [Mass/volume] in Serum by calculation 2.3 GM/DL 2.4 - 3.2 L [facility] A/G RATIO 1.4 0.8 - 2.0 [facility] Calcium [Mass/volume] in Serum or Plasma 8.4 MG/DL 8.4 - 10.2 [facility] Bilirubin.total [Mass/volume] in Serum or Plasma 1.0 MG/DL 0.2 - 1.3 [facility] Alkaline phosphatase [Enzymatic activity/volume] in Serum or Plasma 244 U/L 38 - 126 H [facility] Aspartate aminotransferase [Enzymatic activity/volume] in Serum or Plasma 16 U/L 5 - 40 [facility] Alanine aminotransferase [Enzymatic activity/volume] in Seru m or Plasma 11 U/L 7 - 56 [facility] Anion gap 3 in Serum or Plasma 6.0 mmol/L 8.0 - 16.0 L [facility] AGE 80 yrs [facility] al NON-AA GFR 42 mL/min [facility] AFR AMER GFR >60 [facility] Male GFR In terprentation [...] >32 mL/min Normal ID Date Data Source [id number] 10/12/2020 07:12:00 AM EDT [facility] Name Value Range Interpretation Code Description Data Vivian rce(s) Supporting Document(s) Magnesium [Mass/volume] in Serum or Plasma 1.9 MG/DL 1.7 - 2.2 [facility] ID Date Data Source [id number] 10/12/2020 06:32:00 AM EDT [facility] Name Value Range Interpretation Code Description Data Vivian rce(s) Supporting Document(s) Prothrombin time (PT) 20.8 SECONDS 11.0 - 15.5 [facility] INR in Platelet poor plasma by Coagulation assay 1.76 0.93 - 1. 23 [facility] \\BLDo\\INR INTERPRETATION\\BLDx\\ Therapeutic range for Coumadin and related oral anticoagulants. - International Normalized Ratio (INR): 2.0 - 3.0 for Venous Thrombosis, Pulmonary Embolus, Tissue heart valves, Acute [place], Atrial Fibrillation, Valvular heart disease and recurrent Systemic Embolism. -International Normalized Ratio (INR): 2.5 - 3.5 for Mechanical Prosthetic valve. ID Date Data Source [id number] 10/11/2020 01:10:00 PM EDT [address] [address] RESPIRATORY CARE REPORT ==== ---------NAME------- NUMBER SEX AGE ADMIT DISC. XRAY# F/C TYPERICLEMENCIA [place] [id number] F 80 10/09/20 [id number] M4 I/P DATE OF : 1940 M/R# [id number] #: [id number] LOCATION: EMERGENCY DEPT EKG [id number] COMP LETE:10/11/20 08:31 [facility] [id number] PHYSICIAN: MANUEL HERRMANN Name Value Range Interpretation Code Description Data Vivian rce(s) Supporting Document(s) ID Date Data Source [id number] 10/11/2020 12:25:00 PM EDT [address] [place] [address] RESPIRATORY CARE REPORT ==== ---------NAME------- NUMBER SEX AGE ADMIT DISC. XRAY# F/C BRENNON [place] [id number] F 80 10/09/20 [id number] M4 I/P DATE OF : 1940 M/R# [id number] #: [id number] LOCATION: EMERGENCY DEPT EKG [id number] COMP LETE:10/09/20 14:14 [facility] [id number] PHYSICIAN: MANUEL MACIAS Name Value Range Interpretation Code Description Data Vivian rce(s) Supporting Document(s) ID Date Data Source [id number] 10/11/2020 06:39:00 AM EDT [facility] (Bolivar Sotomayor [...] (Bolivar Sotomayor MD) ID Date Data Source [id number] 10/11/2020 06:39:00 AM EDT [facility] (Bolivar Sotomayor MD) Name Value Range Interpretation Code Description Data Vivian rce(s) Supporting Document(s) Laboratory test finding (navigational concept) 2.05 0 .93-1.23 Above high normal [facility] (Bolivar Sotomayor MD) \\BLDo\\INR INTERPRETATION\\BLDx\\ Therapeutic range for Coumadin and related oral anticoagulants. -International Normalized Ratio (INR): 2 .0 - 3.0 for Venous Thrombosis, Pulmonary Embolus, Tissue heart valves, Acute [place], Atrial Fibrillation, Valvular heart disease and recurrent Systemic Embolism. -International Normalized Ratio (INR): 2 .5 - 3.5 for Mechanical Prosthetic valve. Laboratory test finding (navigational concept) 23.4 s 1 1.0-15.5 Above high normal [facility] (Bolivar Sotomayor MD) ID Date Data Source [id number] 10/11/2020 06:39:00 AM EDT [facility] (Bolivar Sotomayor MD) Name Value Range Interpretation Code Description Data Vivian rce(s) Supporting Document(s) Magnesium [Mass/volume] in Serum or Plasma 2.0 mg/dL 1.7-2.2 [facility] (Bolivar Sotomayor MD) ID Date Data Source [id number] 10/11/2020 06:39:00 AM EDT [facility] (Bolivar Sotomayor MD) Name Value Range Interpretation Code Description Data Vivian rce(s) Supporting Document(s) Iron [Mass/volume] in Serum or Plasma 31 ug/dL 42-135 Below low normal [facility] (Bolivar Sotomayor MD) ID Date Data Source [id number] 10/11/2020 06:39:00 AM EDT [facility] (Bolivar Sotomayor [...] >32 mL/min Normal ID Date Data Source [id number] 10/11/2020 12:12:00 PM EDT [facility] Name Value Range Interpretation Code Description Data Vivian rce(s) Supporting Document(s) Iron [Mass/volume] in Serum or Plasma 31 UG/DL 42 - 135 L [facility] ID Date Data Source [id number] 10/11/2020 07:43:00 AM EDT [facility] Name Value Range Interpretation Code Description Data Vivian rce(s) Supporting Document(s) COMPREHENSIVE METABOLIC PANEL [facility] COMPREHENSIVE METABOLIC PANEL Sodium [Moles/volume] in Serum or Plasma 143 mEq/L 134 - 153 [facility] Potassium [Moles/volume] in Serum or Plasma 3.9 mEq/L 3.6 - 5.0 [facility] Chloride [Moles/volume] in Serum or Plasma 97 mEq/L 98 - 107 L [facility] Carbon dioxide, total [Moles/volume] in Serum or Plasma 37 MEQ/L 22 - 30 H [facility] Glucose [Mass/volume] in Serum or Plasma 133 MG/DL 70 - 99 H [facility] BUN 21 MG/DL 7 - 21 [facility] al Creatinine [Mass/volume] in Serum or Plasma 1.3 MG/DL 0.7 - 1.5 [facility] BUN/CREAT 16 8 - 27 [facility] Protein [Mass/volume] in Serum or Plasma 6.1 G/DL 6.3 - 8.2 L [facility] Albumin [Mass/volume] in Serum or Plasma 3.6 G/DL 3.9 - 5.0 L [facility] Globulin [Mass/volume] in Serum by calculation 2.5 GM/DL 2.4 - 3.2 [facility] A/G RATIO 1.4 0.8 - 2.0 [facility] Calcium [Mass/volume] in Serum or Plasma 8.3 MG/DL 8.4 - 10.2 L [facility] Bilirubin.total [Mass/volume] in Serum or Plasma 1.0 MG/DL 0.2 - 1.3 [facility] Alkaline phosphatase [Enzymatic activity/volume] in Serum or Plasma 280 U/L 38 - 126 H [facility] Aspartate aminotransferase [Enzymatic activity/volume] in Serum or Plasma 21 U/L 5 - 40 [facility] Alanine aminotransferase [Enzymatic activity/volume] in Seru m or Plasma 14 U/L 7 - 56 [facility] Anion gap 3 in Serum or Plasma 9.0 mmol/L 8.0 - 16.0 [facility] AGE 80 yrs [facility] al NON-AA GFR 42 mL/min [facility] AFR AMER GFR >60 [facility] Male GFR In terprentation [...] >32 mL/min Normal ID Date Data Source [id number] 10/11/2020 07:40:00 AM EDT [facility] Name Value Range Interpretation Code Description Data Vivian rce(s) Supporting Document(s) Magnesium [Mass/volume] in Serum or Plasma 2.0 MG/DL 1.7 - 2.2 [facility] ID Date Data Source [id number] 10/11/2020 07:13:00 AM EDT [facility] Name Value Range Interpretation Code Description Data Vivian rce(s) Supporting Document(s) Prothrombin time (PT) 23.4 SECONDS 11.0 - 15.5 [facility] INR in Platelet poor plasma by Coagulation assay 2.05 0.93 - 1. 23 H [facility] \\BLDo\\INR INTERPRETATION\\BLDx\\ Therapeutic range for Coumadin and related oral anticoagulants. - International Normalized Ratio (INR): 2.0 - 3.0 for Venous Thrombosis, Pulmonary Embolus, Tissue heart valves, Acute [place], Atrial Fibrillation, Valvular heart disease and recurrent Systemic Embolism. -International Normalized Ratio (INR): 2.5 - 3.5 for Mechanical Prosthetic valve. ID Date Data Source [id number] 10/11/2020 07:11:00 AM EDT [facility] Name Value Range Interpretation Code Description Data Vivian rce(s) Supporting Document(s) CBC W/AUTOMATED DIFF [facility] COMPLETE BLOOD COUNT Leukocytes [#/volume] in Blood by Automated count 7.8 10^3/uL 4.2 - 1 1.0 [facility] Erythrocytes [#/volume] in Blood by Automated count 3.93 10^6/uL 4. 20 - 5.40 L [facility] Hemoglobin [Mass/volume] in Blood 12.3 g/dL 12.0 - 16.0 [facility] Hematocrit [Volume Fraction] of Blood by Automated count 37.7 % 3 7.0 - 47.0 [facility] Erythrocyte mean corpuscular volume [Entitic volume] by Auto mated count 95.9 fL 81.0 - 101 [facility] Erythrocyte mean corpuscular hemoglobin [Entitic mass] by Automated count 31.3 pg 27.0 - 34.0 [facility] Erythrocyte mean corpuscular hemoglobin concentration [Mass/volume] by Automated count 32.6 g/dL 31.0 - 36.0 [facility] Erythrocyte distribution width [Ratio] by Automated count 16.8 % 11.5 - 14.5 H [facility] Platelets [#/volume] in Blood by Automated count 184 10^3/uL 150 - 45 0 [facility] Platelet mean volume [Entitic volume] in Blood by Automated count 10.8 fL 7.4 - 10.4 H [facility] Neutrophils/100 leukocytes in Blood by Automated count 69.8 % 37. 0 - 80.0 [facility] Lymphocytes/100 leukocytes in Blood by Manual count 15.2 % 25.0 - 40.0 L [facility] Monocytes/100 leukocytes in Blood by Automated count 11.7 % 3.0 - 8.0 H [facility] Eosinophils/100 leukocytes in Blood by Automated count 2.8 % 0.0 - 7.0 [facility] Basophils/100 leukocytes in Blood by Automated count 0.4 % 0.0 - 2.5 [facility] %IG 0.1 % 0.0 - 0.[address] %NRBC 0.0 % 0.0 - 0.0 [facility] al Neutrophils [#/volume] in Blood by Automated count 5.42 10^3/uL 2.00 - 6.90 [facility] Lymphocytes [#/volume] in Blood by Automated count 1.18 10^3/uL 0.60 - 3.40 [facility] Monocytes [#/volume] in Blood by Automated count 0.91 10^3/uL 0.00 - 0.90 H [facility] Eosinophils [#/volume] in Blood by Automated count 0.22 10^3/uL 0.00 - 0.70 [facility] Basophils [#/volume] in Blood by Automated count 0.03 10^3/uL 0.00 - 0.20 [facility] #IG 0.01 10^3/uL 0.00 - 0.10 [facility]ital #NRBC 0.00 10^3/uL 0.00 - 0.00 [facility] MANUAL DIFF NOT INDICATED [facility] RBC MORPH NOT INDICATED [facility] ID Date Data Source [id number] 10/10/2020 06:31:00 AM EDT [facility] (Bolivar Sotomayor MD) Name Value Range Interpretation Code Description Data Vivian rce(s) Supporting Document(s) Troponin T.cardiac [Mass/volume] in Serum or Plasma 0.06 ng/mL 0.00-0 .10 [facility] (Bolivar Sotomayor MD) [...] (Bolivar Sotomayor MD) ID Date Data Source [id number] 10/10/2020 06:31:00 AM EDT [facility] (Bolivar Sotomayor [...] (Bolivar Sotomayor MD) ID Date Data Source [id number] 10/10/2020 06:31:00 AM EDT [facility] (Bolivar Sotomayor [...] 40 meq/L 22-30 Above high normal [facility] (oBlivar Sotomayor MD) Laboratory test finding (navigational concept) 98 meq/L 98-107 [facility] (Bolivar Sotomayro MD) Laboratory test finding (navigational concept) 87 [...] >32 mL/min Normal ID Date Data Source [id number] 10/10/2020 06:31:00 AM EDT [facility] (Bolivar Sotomayor [...] (Bolivar Sotomayor MD) ID Date Data Source [id number] 10/10/2020 06:31:00 AM EDT [facility] (Bolivar Sotomayor [...] (Bolivar Sotomayor MD) ID Date Data Source [id number] 10/10/2020 06:31:00 AM EDT [facility] (Bolivar Sotomayor MD) Name Value Range Interpretation Code Description Data Vivian rce(s) Supporting Document(s) Fibrin D-dimer [Presence] in Platelet poor plasma 2.91 ug/mL 0.27-0.50 Above high normal [facility] (Bolivar Sotomayor MD) ID Date Data Source [id number] 10/10/2020 06:31:00 AM EDT [facility] (Bolivar Sotomayor [...] Thrombosis, Pulmonary Embolus, Tissue heart valves, Acute [place], Atrial Fibrillation, Valvular heart disease and recurrent Systemic Embolism. -International Normalized Ratio (INR): 2 .5 - 3.5 for Mechanical Prosthetic valve. ID Date Data Source [id number] 10/10/2020 11:06:00 AM [facility] Name Value Range Interpretation Code Description Data Vivian rce(s) Supporting Document(s) Thyroxine (T4) free index in Serum or Plasma by calculation 0.90 NG/DL 0.93 - 1.70 L [facility] ID Date Data Source [id number] 10/10/2020 11:06:00 AM [facility] Name Value Range Interpretation Code Description Data Vivian rce(s) Supporting Document(s) Thyrotropin [Units/volume] in Serum or Plasma by Detec tion limit <= 0.05 mIU/L 16.18 uIU/mL 0.47 - 5.01 H [facility] ID Date Data Source [id number] 10/10/2020 08:09:00 AM [facility] Name Value Range Interpretation Code Description Data Vivian rce(s) Supporting Document(s) TROPONIN T 0.06 NG/ML 0.00 - 0.10 [facility] TROPONIN T0.1 ng/ml Recommended as the c linical threshold value forTroponin T. ID Date Data Source [id number] 10/10/2020 07:57:00 AM EDT [facility] Name Value Range Interpretation Code Description Data Vivian rce(s) Supporting Document(s) BNP 7701 PG/ML 0 - 450 H [facility] ID Date Data Source [id number] 10/10/2020 07:57:00 AM EDT [facility] Name Value Range Interpretation Code Description Data Vivian rce(s) Supporting Document(s) COMPREHENSIVE METABOLIC PANEL [facility] COMPREHENSIVE METABOLIC PANEL Sodium [Moles/volume] in Serum or Plasma 144 mEq/L 134 - 153 [facility] Potassium [Moles/volume] in Serum or Plasma 3.4 mEq/L 3.6 - 5.0 L [facility] Chloride [Moles/volume] in Serum or Plasma 98 mEq/L 98 - 107 [facility] Carbon dioxide, total [Moles/volume] in Serum or Plasma 40 MEQ/L 22 - 30 H [facility] Glucose [Mass/volume] in Serum or Plasma 87 MG/DL 70 - 99 [facility] BUN 22 MG/DL 7 - 21 H [facility] al Creatinine [Mass/volume] in Serum or Plasma 1.3 MG/DL 0.7 - 1.5 [facility] BUN/CREAT 17 8 - 27 [facility] Protein [Mass/volume] in Serum or Plasma 5.5 G/DL 6.3 - 8.2 L [facility] Albumin [Mass/volume] in Serum or Plasma 3.3 G/DL 3.9 - 5.0 L [facility] Globulin [Mass/volume] in Serum by calculation 2.2 GM/DL 2.4 - 3.2 L [facility] A/G RATIO 1.5 0.8 - 2.0 [facility] Calcium [Mass/volume] in Serum or Plasma 8.2 MG/DL 8.4 - 10.2 L [facility] Bilirubin.total [Mass/volume] in Serum or Plasma 0.7 MG/DL 0.2 - 1.3 [facility] Alkaline phosphatase [Enzymatic activity/volume] in Serum or Plasma 247 U/L 38 - 126 H [facility] Aspartate aminotransferase [Enzymatic activity/volume] in Serum or Plasma 21 U/L 5 - 40 [facility] Alanine aminotransferase [Enzymatic activity/volume] in Seru m or Plasma 14 U/L 7 - 56 [facility] Anion gap 3 in Serum or Plasma 6.0 mmol/L 8.0 - 16.0 L [facility] AGE 80 yrs [facility] al NON-AA GFR 42 mL/min [facility] AFR AMER GFR >60 [facility] Male GFR In terprentation [...] >32 mL/min Normal ID Date Data Source [id number] 10/10/2020 07:57:00 AM EDT [facility] Name Value Range Interpretation Code Description Data Vivian rce(s) Supporting Document(s) CVE PANEL [facility] LIPID PANEL Cholesterol [Mass/volume] in Serum or Plasma 83 MG/DL 131 - 200 L [facility] Deprecated Triglyceride [Mass/volume] in Serum or Plasma 72 MG/DL 3 5 - 160 [facility] HDL 30 MG/DL 29 - 86 [facility] Cholesterol in LDL [Mass/volume] in Serum or Plasma by Direc t assay 45 mg/dL 65 - 175 L [facility] Cholesterol.total/Cholesterol in HDL [Mass Ratio] in Serum o r Plasma 2.8 3.2 - 4.4 L [facility] LDL/HDL 1.50 1.47 - 3.22 [facility] CVE RISK CHOL/HDL LDL/HDLMEN: 1/2 AVERAGE 3.43 1.00 AVERAGE 4.97 3.55 2X AVERAGE 9.55 6.25 3X AVERAGE 23.99 7.99WOMEN: 1/2 AVERAGE 3.27 1.47 AVERAGE 4.44 3.22 2X AVERAGE 7.05 5.03 3X AVERAGE 11.04 6.14 ID Date Data Source [id number] 10/10/2020 07:57:00 AM EDT [facility] Name Value Range Interpretation Code Description Data Vivian rce(s) Supporting Document(s) Iron [Mass/volume] in Serum or Plasma 33 UG/DL 42 - 135 L [facility] ID Date Data Source [id number] 10/10/2020 07:51:00 AM EDT [facility] Name Value Range Interpretation Code Description Data Vivian rce(s) Supporting Document(s) Cobalamin (Vitamin B12) [Mass/volume] in Serum or Plasma 587 PG/ML 232 - 1245 [facility] ID Date Data Source [id number] 10/10/2020 07:44:00 AM EDT [facility] Name Value Range Interpretation Code Description Data Vivian rce(s) Supporting Document(s) Magnesium [Mass/volume] in Serum or Plasma 2.2 MG/DL 1.7 - 2.2 [facility] ID Date Data Source [id number] 10/10/2020 07:21:00 AM EDT [facility] Name Value Range Interpretation Code Description Data Vivian rce(s) Supporting Document(s) CBC W/AUTOMATED DIFF [facility] COMPLETE BLOOD COUNT Leukocytes [#/volume] in Blood by Automated count 7.1 10^3/uL 4.2 - 1 1.0 [facility] Erythrocytes [#/volume] in Blood by Automated count 3.83 10^6/uL 4. 20 - 5.40 L [facility] Hemoglobin [Mass/volume] in Blood 12.0 g/dL 12.0 - 16.0 [facility] Hematocrit [Volume Fraction] of Blood by Automated count 37.2 % 3 7.0 - 47.0 [facility] Erythrocyte mean corpuscular volume [Entitic volume] by Auto mated count 97.1 fL 81.0 - 101 [facility] Erythrocyte mean corpuscular hemoglobin [Entitic mass] by Automated count 31.3 pg 27.0 - 34.0 [facility] Erythrocyte mean corpuscular hemoglobin concentration [Mass/volume] by Automated count 32.3 g/dL 31.0 - 36.0 [facility] Erythrocyte distribution width [Ratio] by Automated count 17.0 % 11.5 - 14.5 H [facility] Platelets [#/volume] in Blood by Automated count 185 10^3/uL 150 - 45 0 [facility] Platelet mean volume [Entitic volume] in Blood by Automated count 11.7 fL 7.4 - 10.4 H [facility] Neutrophils/100 leukocytes in Blood by Automated count 67.7 % 37. 0 - 80.0 [facility] Lymphocytes/100 leukocytes in Blood by Manual count 14.4 % 25.0 - 40.0 L [facility] Monocytes/100 leukocytes in Blood by Automated count 13.5 % 3.0 - 8.0 [facility] Eosinophils/100 leukocytes in Blood by Automated count 4.0 % 0.0 - 7.0 [facility] Basophils/100 leukocytes in Blood by Automated count 0.3 % 0.0 - 2.5 [facility] %IG 0.1 % 0.0 - 0.[address] [facility] %NRBC 0.0 % 0.0 - 0.0 [facility] al Neutrophils [#/volume] in Blood by Automated count 4.78 10^3/uL 2.00 - 6.90 [facility] Lymphocytes [#/volume] in Blood by Automated count 1.02 10^3/uL 0.60 - 3.40 [facility] Monocytes [#/volume] in Blood by Automated count 0.95 10^3/uL 0.00 - 0.90 [facility] Eosinophils [#/volume] in Blood by Automated count 0.28 10^3/uL 0.00 - 0.70 [facility] Basophils [#/volume] in Blood by Automated count 0.02 10^3/uL 0.00 - 0.20 [facility] #IG 0.01 10^3/uL 0.00 - 0.10 [facility] #NRBC 0.00 10^3/uL 0.00 - 0.00 [facility] MANUAL DIFF NOT INDICATED [facility] RBC MORPH NOT INDICATED [facility] ID Date Data Source [id number] 10/10/2020 07:20:00 AM EDT [facility] Name Value Range Interpretation Code Description Data Vivian rce(s) Supporting Document(s) Fibrin D-dimer FEU [Mass/volume] in Platelet poor plasma 2.91 ug /mL 0.27 - 0.50 [facility] ID Date Data Source [id number] 10/10/2020 07:20:00 AM EDT [facility] Name Value Range Interpretation Code Description Data Vivian rce(s) Supporting Document(s) Prothrombin time (PT) 29.4 SECONDS 11.0 - 15.5 [facility] INR in Platelet poor plasma by Coagulation assay 2.74 0.93 - 1. 23 [facility] \\BLDo\\INR INTERPRETATION\\BLDx\\ Therapeutic range for Coumadin and related oral anticoagulants. - International Normalized Ratio (INR): 2.0 - 3.0 for Venous Thrombosis, Pulmonary Embolus, Tissue heart valves, Acute [place], Atrial Fibrillation, Valvular heart disease and recurrent Systemic Embolism. -International Normalized Ratio (INR): 2.5 - 3.5 for Mechanical Prosthetic valve. ID Date Data Source [id number] 10/09/2020 06:55:00 PM EDT [facility] (Bolivar Sotomayor MD) Name Value Range Interpretation Code Description Data Vivian rce(s) Supporting Document(s) Laboratory test finding (navigational concept) Laboratory test result [facility] (Bolivar Sotomayor MD) <content>_CULTURE URINE_</content>
<content>^$456915</content>
<content>^^013581</content>
<content>$$373086</content>
<content>^^383513</content>
<content>$$ 882450</content>
<content>$$832558</content>
<content>$$273730</content>
<content>$$ 197773</content>
<content>$$915285</content>
<content>$$886663</content>
<content> $$865502</content>
<content>$$432381</content>
<content>$$168462</conten t>
<content>$$858878</content>
<content>$$107745</content>
<content> $$295022</content>
<content>$$383271</content>
<content>$$062848</content>
<content>$$13700 0</content>
<content>$$682808</content>
<content>$$110137</content>
<content>$$655274</content>
<content>$$425069</content>
<content>$$439421</content>
<content>$$ 049638</content>
<content>$$889346</content>
<content>$$715266</content>
<content> ^^460089</content>
<content>$$064738</content>
<content>$$535877</conten t>
<content>$$182761</content>
<content></content>
<content>-- Continued on next page --</content>
<content>Patient: ANNA eMdina Order: [id number] Page 2</content>
<content>Culture: CULTURE URINE Status: Final</keira nt>
<content> < /content>
<content></content>
<content></content>
<content>-- Continued on next page --</content>
<content>Patient: ANNA Medina Order: [id number] Page 2</content>
<content>Culture: CULTURE URINE Status: Prelim</content>
<content> < /content>
<content></content>
<content>$$782199</content>
<content>$ $064787</content>
<content></content>
<content>REPORTED DATE/TIME: 10/13/2020 14:07</content>
<content>Culture: CULTURE [...]
<content></content>
<content></content>
<content> Patient: ANNA Medina Order: [id number] Page 3</content>
<content>Culture: CULTURE URINE Status: Final</content>
[...] S S . . . . . .80932-7</content>
<content>Gentamicin S S . . . . . .267-5</content>
<content>Imipenem S S . . . . . .279-0</content>
<content>Levofloxacin S S . . . . . .91365-4</content>
<content>Meropenem S S . . . . . .6652-2</content>
<content>Nitrofurantoin S S . . . . . .363-2</content>
<content>Piperacillin/Tazobactam S S . . . . . .412-7</content>
<content>Tetracycline S S . . . . . .496-0</content>
<content>Tobramycin S S . . . . . .508-2</content>
<content>Trimethoprim/Sulfa S S . . . . . .516-5</content>
<content></content>
<content>P1 Test performed by: [facility] SANDERS #: [id number]</content>
<content>[address]</content>
<content>[id number]</content>
<content>Karla WOODS [address]</content>
<content>Kelp Cutter : Sae Pena MD NPI #:</content>
<content>Roller Coaster Operator :</content>
<content>10/12/20.0828.XMT.SENT REF</content>
<content>10/13/20.1419.XMT.SENT REF</content>
<content>10/13/20. .to MANUEL HERRMANN via modem</content>
<content>10/13/20. .to NAUN MTZ via fax</content>
<content></content>
<content></content> ID Date Data Source [id number] 10/09/2020 06:55:00 PM EDT [facility] (Bolivar Sotomayor [...] for Troponin T. ID Date Data Source [id number] 10/09/2020 06:55:00 PM EDT [facility] (Bolivar Sotomayor [...] Thrombosis, Pulmonary Embolus, Tissue heart valves, Acute [place], Atrial Fibrillation, Valvular heart disease and recurrent Systemic Embolism. -International Normalized Ratio (INR): 2 .5 - 3.5 for Mechanical Prosthetic valve. ID Date Data Source [id number] 10/13/2020 02:19:00 PM EDT [facility] Name Value Range Interpretation Code Description Data Vivian rce(s) Supporting Document(s) CULTURE URINE [facility]ital _CULTURE URINE_$$086351$$654931$$909812$$994251$$550385$$908202$$153912$$713841$$476953$$ 436761$$312909$$586403$$669748$$272502$$928786$$083932$$499644$$422858$$834608$$ 748484$$584001$$422099$$496536$$275606$$069186$$315740$$249111 -- Continued on next page --Patient: ANNA Medina Order: Page 2Culture: CULTURE URINE Status: Final ==== -- Continued on next page --Patient: ANNA Medina Order: Page 2Culture: CULTURE URINE Status: Prelim =====$$544710$$[id number] DATE/TIME: 10/13/2020 14:07Culture: CULTURE URINE Status: FinalIsolate [...] 10/12/2020 07:27 ET Gram negative rodsUrine Culture,Comprehensive: W8Crofxpcanqd coli Flag: APatient: ANNA Medina Order: [id number] Page 3Culture: CULTURE URINE Status: Final ISOLATE [...] S S . . . . . .12211-8Rudgkugzgi S S . . . . . .267-5Imipenem S S . . . . . .279-0Levofloxacin S S . . . . . .26180-7Mvuespwbx S S . . . . . .6652-2Nitrofurantoin S S . . . . . .363-2Piperacillin/Tazobactam S S . . . . . .412-7Tetracycline S S . . . . . .496-0Tobramycin S S . . . . . .508-2Trimethoprim/Sulfa S S . . . . . .516-5P1 Test performed by: Kami Acosta [facility] #: [id number] [address] [place] [address] [id number] [facility] [id number] Director : Sae Pena MD NPI #:Roller Coaster Operator : 10/12/20.0828.XMT.SENT REF 10/13/20.1419.XMT.SENT REF 10/13/20.141. .to MANUEL HERRMANN via modem 10/13/20141. .to NAUN MTZ via fax ID Date Data Source [id number] 10/09/2020 07:45:00 PM EDT [facility] Name Value Range Interpretation Code Description Data Vivian rce(s) Supporting Document(s) TROPONIN T 0.05 NG/ML 0.00 - 0.10 [facility] sp[facility] TROPONIN T0.1 ng/ml Recommended as the c linical threshold value forTroponin T. ID Date Data Source [id number] 10/09/2020 07:45:00 PM EDT [facility] Value Range Interpretation Code Description Data Vivian rce(s) Supporting Document(s) Hemoglobin A1c/Hemoglobin.total in Blood 8.7 % 4.4 - 6.1 [facility] {A1]{HB] ID Date Data Source [id number] 10/09/2020 07:32:00 PM EDT [facility] Name Value Range Interpretation Code Description Data Vivian rce(s) Supporting Document(s) Magnesium [Mass/volume] in Serum or Plasma 2.2 MG/DL 1.7 - 2.2 [facility] ID Date Data Source [id number] 10/09/2020 07:27:00 PM EDT [facility] Name Value Range Interpretation Code Description Data Vivian rce(s) Supporting Document(s) Prothrombin time (PT) 29.0 SECONDS 11.0 - 15.5 [facility] INR in Platelet poor plasma by Coagulation assay 2.69 0.93 - 1. 23 [facility] \\BLDo\\INR INTERPRETATION\\BLDx\\ Therapeutic range for Coumadin and related oral anticoagulants. - International Normalized Ratio (INR): 2.0 - 3.0 for Venous Thrombosis, Pulmonary Embolus, Tissue heart valves, Acute [place], Atrial Fibrillation, Valvular heart disease and recurrent Systemic Embolism. -International Normalized Ratio (INR): 2.5 - 3.5 for Mechanical Prosthetic valve. ID Date Data Source [id number] 10/09/2020 01:49:00 PM EDT [facility] [address] [place] [address] PHONE: [phone] FAX: [phone] Name .................. : ANNA Medina Acct Number.................. : [id number] ROOM. ................. : TR-02 MR Number ................... : [id number] Stay type ............. : E/R Discharge Date......... ... : Admit Date ......... : 10/09/20 Admit Phys .................... : [facility] Date of ....... : 1940 Family Phys ................... : NAUN MTZ Phone .................. : [phone] Age ................................ : 80 Film# .................. .:[id number] Sex ................................. : F Unsigned transcriptions are preliminary reports and do not represent a medical or legal document CHEST PORTABLE [id number] COMPLETE:10/09/20 12:36 92642 Reason(s): shortnessof breath CHEST PORTABLE, 10/09/20: INDICATION: Shortness of breath. Comparison 05/06/20. FINDINGS: No infiltrate or effusion. Stable mild cardiomegaly. Left-sided pacemaker. Patient is status post sternotomy. Atherosclerotic changes along the aorta. IMPRESSION: No significant change. No acute infiltrate. Stable cardiomegaly. Electronically Reviewed and Signed By Angel Luis Novoa DO , 10/09/20 13:49, TOÑA Transcribe Initials: [place], Transcribe Date: 10/09/20 13:24, Dictation Date: Copy for: 010 EMERGENCY SRV Copy for: NAUN HARTLEY via fax Copy for: EMERGENCY DEPT via modem Copy for: 710 MED REC Page 1 of 1 Name Value Range Interpretation Code Description Data Vivian rce(s) Supporting Document(s) ID Date Data Source [id number] 10/09/2020 12:19:00 PM EDT [facility] 1 OrderSheet [facility] Emergency Department [address] [place] [address] Phone #: ext- [phone] 10/09/2020 12:18 Patient: JOY DENT Sex: F [...] (Not) (NotResident inCongregate CareSetting) (Not 2 OrderSheet [facility] Emergency Department [address] [place] [address] Phone #: ext- [phone] 10/09/2020 12:18 Patient: JOY DENT Sandy cct#: [id number] Sex: F : 1940 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: 80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 [...] Entered Acknowledged InitialedBlood Pressure 12:36 10/09/2020 12:37 Candi EDMonitor [facility] [place], [facility] ; Cfsk3Twoywcm Monitor 12:36 10/09/2020 12:37 Candi ED(continuous) [facility] [place] ; Qill6NZZ 12:36 10/09/2020 12:37 Candi ED [facility] [place], [facility] ; Kbbw6ZQR 12:36 10/09/2020 12:40 Gilberto Mcfarland Victoria Lisa RN ;Obtain Old EKG 12:36 10/09/2020 12:40 Gilberto Mcfarland Victoria Lisa RN ;Obtain Old Records 12:36 10/09/2020 12:40 Bartolo, 3 OrderSheet [facility] Emergency Department [address] [place] [address] Phone #: ext- [phone] 10/09/2020 12:18 Patient: JOY DENT Sex: F : 1940 Age: 80y Amara Macias RN ;Oxygen (2 L/min) 12:36 10/09/2020 12:41 MARINO Long) (Titrate to O2 Amara Macias R.N.Sat >95%) ;Oxygen titrate to 12:36 10/09/2020 12:41 Ethan,92% Amara Macias R.N. ;Pulse oximeter 12:36 10/09/2020 12:41 Ethan(Continuous) Amara Macias R.N. ;Saline Lock 12:36 10/09/2020 12:42 Gilberto Long Victoria John R.N. ;Vitals 12:36 10/09/2020 12:37 [place] [facility] Amara Macias Tech, [facility] ; Tech1[Electronically signed by Srinivas Long R.N. (16:27 10/09/2020)][Electronically signed by Amara Macias (16:44 10/09/2020)][Electronically locked by Srinivas Long R.N. (16:27 10/09/2020)] Name Value Range Interpretation Code Description Data Vivian rce(s) Supporting Document(s) ID Date Data Source [id number] 10/09/2020 12:19:00 PM EDT [facility] 1 Medication Reconciliation Report [facility] Emergency Department [address] [place] [address] Phone #: ext- [phone] 10/09/2020 12:18 Patient: [...] 1 tablet, daily 2 Medication Reconciliation Report [facility] Emergency Department [address] [place] [address] Phone #: ext- [phone] 10/09/2020 12:18 Patient: [...] rce(s) Supporting Document(s) ID Date Data Source [id number] 10/09/2020 12:19:00 PM EDT [facility] 1 Medication Administration Record [facility] Emergency Department [address] [place] [address] Phone #: ext [phone] 10/09/2020 12:18 Patient: JOY DENT Sex: F : 1940 Age: 80yWeight: 94.3 kgHeight/Length: 61 inBMI: 39.3ALLERGIES: Aloe, PCN, Penicillins Date/Time Medication Administered Medication OrderedGiven LASIX [IVP] Lasix IVP 40 mg (NOW)14:33 10/09/2020 Dose: 40 mg Srinivas Yoo R.N. Site: #1 left Name Value Range Interpretation Code Description Data Vivian rce(s) Supporting Document(s) ID Date Data Source [id number] 10/09/2020 12:19:00 PM EDT [facility] 1 General Instructions [facility] Emergency Department [address] [place] [address] Phone #: ext- [phone] 10/09/2020 12:18 Patient: JOY DENT Sex: F : 1940 Age: 80yAcute moderate systolic, left ventricular congestive heart failure.(Electronically signed by Amara Macias 10/09/2020 16:44) Name Value Range Interpretation Code Description Data Vivian rce(s) Supporting Document(s) ID Date Data Source [id number] 10/09/2020 12:19:00 PM EDT [facility] 1 Clinical Report - Nurses [facility] Emergency Department [address] [place] [address] Phone #: ext- [phone] 10/09/2020 12:18 Patient: JOY DENT Sex: F [...] pt has paced rhythm noted on monitor).Treatment DIRECT CARE SPECIALIST:None. --12:10/09/20 Leni Parks R.N.12:10/09/20. BP: 153/47. HR: 60. RR: 13. O2 saturation: 98%. Temp: 96.9 F. Pain level now 0/10.--12:10/09/20 Leni Parks R.N.Weight: 94.3 kg measured. Height/Length: 61 inches. BMI: 39.3. --12:10/09/20 Leni Parks R.N.MedicationsAllopurinol Oral 100 mg, 2x a day. --12:10/09/20 Leni Parks R.N. Aspirin Oral 81 mg, [...] Oral (Tablet 3 mg) 1 tablet, daily. --12:10/09/20 Lessley, Leni, R.N.AllergiesAloe. 2 Clinical Report - Nurses [facility] Emergency Department [address] [place] [address] Phone #: ext- [phone] 10/09/2020 12:18 Patient: JOY DENT Sex: F : 1940 Age: 80y PCN. Penicillins. --12:23 10/09/20 Leni Parks R.N. Medication/allergy information source: the patient and patient's previous visit record and EMS. --12:10/09/20 Leni Parks R.N. History PAST MEDICAL HX: [...] assessment completed. No skin integrity risk identified. --12:10/09/20 Leni Parks R.N.PHYSICAL ASSESSMENTGENERAL / NEURO / [...] Parks R.N. 3 Clinical Report - Nurses [facility] Emergency Department [address] [place] [address] Phone #: ext- [phone] 10/09/2020 12:18 Patient: [...] RR: 15. O2 saturation: 100%. --13:18 10/09/20 [facility] Rxad428:26 10/09/20. BP: 165/56. MAP: 92. HR: 60. RR: 14. O2 saturation: 100%. --13:26 10/09/20 [facility]1The patient is calm and resting quietly. Overall patient status is the same- she states feels the same.Side rails up x 2. Bed placed in lowest position. --13:44 10/09/20 Srinivas Long R.N.13:57 10/09/20. HR: 60. RR: 17. O2 saturation: 100%. --13:58 10/09/20 [place] [address]The patient is resting quietly and sleeping. Overall [...] RR: 13. O2 saturation: 100%. --14:35 10/09/20 [facility]1( up to restorrom with ass). --14:47 10/09/20 Srinivas Long R.N.15:01 10/09/20. BP: 162/80. MAP: 107. HR: 60. RR: 12. O2 saturation: 100%. --15:01 10/09/20 [facility] Zzri817:30 10/09/20. BP: 164/67. MAP: 99. HR: 66. RR: 13. O2 saturation: 100%. --15:53 10/09/20 [facility] Mpbf547:58 10/09/20. BP: 159/74. MAP: 102. HR: 60. RR: 19. O2 saturation: 97%. --15:58 10/09/20 [facility] Tech1.Intake OutputUrine output: 250 mL with return of yellow-colored urine. --14:59 10/09/20 Srinivas Long R.N. 4 Clinical Report - Nurses [facility] Emergency Department [address] [place] [address] Phone #: ext- [phone] 10/09/2020 12:18 - Patient: JOY DENT Sex: F : 1940 Age: 80yDISPOSITION / [...] rce(s) Supporting Document(s) ID Date Data Source [id number] 10/09/2020 12:19:00 PM EDT [facility] 1 Clinical Report - Physicians/Mid Levels [facility] Emergency Department [address] [place] [address] Phone #: ext- [phone] 10/09/2020 12:18 Patient: JOY DENT Sex: F : 1940 Age: 80y Time Seen: 12:31 10/09/2020; initial patient contact, initial documentation. Arrived- By ambulance. Historian- patient and EMS personnel. Disposition decision: 14:31 10/09/2020.HISTORY OF PRESENT ILLNESS Chief Complaint: DYSPNEA and HISTORY OF CONGESTIVE HEART FAILURE. This started 1 week DIRECT CARE SPECIALIST and is still present and worsening. It [...] Disease. Fever. 2 Clinical Report - Physicians/[facility] Emergency Department [address] [place] [address] Phone #: ext- [phone] 10/09/2020 12:18 [id number] Sex: [facility] : 1940 Age: 80y Emphysema. [...] drug use.ADDITIONAL NOTES 3 Clinical Report - Physicians/[facility] Emergency Department [address] [place] [address] Phone #: ext- [phone] 10/09/2020 12:18 Patient: [...] * [place] [address] PHONE: [phone] FAX: [phone] Clinical Report - Physicians/Mid Levels [facility] Emergency Department [address] [place] [address] Phone #: ext- [phone] 10/09/2020 12:18 Patient: JOY DENT Sex: F : 1940 Age: 80y Name .................. : ANNA Medina Acct Number.................. : [id number] ROOM. ................. : TR- 02 MR Number ................... : [id number] Stay type ............. : E/R Discharge Date......... ... : Admit Date ......... : 10/09/20 Admit Phys .................... : GILBERTO Date of ....... : 1940 Family Phys ................... : NAUN MTZ Phone .................. : [phone] Age ................................ : 80 Film# .................. .:[id number] Sex ................................. : F Unsigned transcriptions are preliminary reports and do not represent a medical or legal document DOPPLER UNILATERAL VENOUS [id number] COMPLETE:10/09/20 13:06 KNB 57215 Reason(s): Discolored Extremity Swelling, Limb LEFT LEG [...] modem Copy for: 710 MED REC Page 1of 1CBC w Diff: [...] 36.0) 5 Clinical Report - Physicians/Mid Levels [facility] Emergency Department [address] [place] [address] Phone #: ext- [phone] 10/09/2020 12:18 Patient: JOY DENT Sex: F [...] Male GFR Interprentation 20-49 yrs >60 mL/min Uirlgg36-05 yrs >56 mL/min Normal 60-69 yrs >49 mL/min Normal 70-79yrs>42 mL/min Normal 80 and above >35 mL/min Normal Female GFRInterpretation 20-39 yrs >60 mL/min Normal 40-49 yrs >58 mL/minNormal 50-59 yrs >51 mL/min Normal 60-69 yrs >45 mL/min Fxmozq03-58 yrs >39 mL/min Normal 80 and above >32 mL/min NormalLipase: (KATELYN: 10/09/2020 12:44) ( MsgRcvd 10/09/2020 13:36) Final results Test Result Flag Units (Reference) LIPASE 18 U/L (13 - 60)PT/PTT: (KATELYN: 10/09/2020 12:44) ( [facility] 10/09/2020 13:03) Final results 6 Clinical Report - Physicians/Mid Levels [facility] Emergency Department [address] [place] [address] Phone #: ext- [phone] 10/09/2020 12:18 Patient: JOY DENT Sex: F : 1940 Age: 80y Test Result Flag Units (Reference) PROTIME 27.7 H SECONDS (11.0 - 15.5) INR 2.54 H (0.93 - 1.23) PTT 45.4 H SECONDS (24.8 - 36.7) \\BLDo\\INR INTERPRETATION\\BLDx\\ Therapeutic range for Coumadin andrelated oral anticoagulants. -International Normalized Ratio (INR): 2.0 - 3.0 for VenousThrombosis, Pulmonary Embolus, Tissue heart valves, Acute [place] Atrial Fibrillation, Valvular heart diseaseand recurrent Systemic E mbolism. -International Normalized Ratio (INR): 2.5 - 3.5 forMechanical Prosthetic valve.Troponin-T: (KATELYN: 10/09/2020 12:44) ( [facility] 10/09/2020 13:10) Final results Test Result Flag Units (Reference) TROPONIN T 0.05 NG/ML (0.00 - 0.10) TROPONIN T0.1 ng/ml Recommended as the clinical threshold value forTroponin T.D-Dimer: (KATELYN: 10/09/2020 12:44) ( [facility] 10/09/2020 13:03) Final results Test Result Flag Units (Reference) D- DIMER QUANT 3.05 H ug/mL (0.27 - 0.50)BNP: (KATELYN: 10/09/2020 12:44) ( MsgRcvd 10/09/2020 13:42) Final results Test Result Flag Units (Reference) BNP 9595 H PG/ML (0 - 450)Chest Portable 1 View: (KATELYN: 10/09/2020 12:36) ( MsgRcvd 10/09/2020 13:51) Final results Exam CHEST PORTABLE [facility] [address] [place] [address] PHONE: [phone] FAX: [phone] Name .................. : ANNA ALLEN Carol Acct Number.................. : [id number] ROOM. ................. : TR02 Number ................... : [id number] Stay type ............. : E/R Discharge Date......... ... : Admit Date ......... : 10/09/20 Admit Phys .................... : [facility] Date of ....... : 1940 Family Phys ................... : NAUN MTZ Phone .................. : [phone] Age ................................ : 80 Film# .................. .:[id number] Sex ................................. : F Unsigned transcriptions are preliminary reports and do not represent a medical or legal document CHEST PORTABLE [id number] COMPLETE:08/26 12:36 76184 Reason(s): shortnessof breath CHEST PORTABLE, 10/09/20: INDICATION: Shortness of breath. Comparison 05/06/20. FINDINGS: No infiltrate or effusion. Stable mild cardiomegaly. Left-sided pacemaker. Patient is status post sternotomy. Atherosclerotic changes along the aorta. IMPRESSION: 7 Clinical Report - Physicians/Mid Levels [facility] Emergency Department [address] [place] [address] Phone #: ext- [phone] 10/09/2020 12:18 Patient: JOY DENT Sex: F [...] failure. 8 Clinical Report - Physicians/Mid Levels [facility] Emergency Department [address] [place] [address] Phone #: ext- [phone] 10/09/2020 12:18 Patient: JOY DENT Sex: F : 1940 Age: 80y(Electronically signed by Amara Macias 10/09/2020 16:44) Name Value Range Interpretation Code Description Data Vivian e(s) Supporting Document(s) ID Date Data Source [id number] 10/09/2020 12:19:00 PM EDT [facility] Addenda for NIDHI DENTLigia Aleman RN: [id number] VisitID: [id number] Date: 15:27faxed med rec to [employer] @ 15:25 with T systems ovewrview(Electronically signed by Hai Fung 10/09/2020 15:27)10/09/2020 16:19faxed med rec with T system over view @ 15:38(Electronically signed by Hai Fung 10/09/2020 16:19) Name Value Range Interpretation Code Description Data Vivian rce(s) Supporting Document(s) ID Date Data Source [id number] 10/09/2020 02:38:00 PM EDT [facility] Name Value Range Interpretation Code Description Data [facility] rce(s) Supporting Document(s) COVID19 Case rprt NOT DETECTED [facility] This lab was ordered by [facility] TONY and reported by [facility]. ID Date Data Source [id number] 10/09/2020 02:59:00 PM EDT [facility] NOT DETECTEDNOT DETECTED{ PROC EDURAL CONTROL VALID KIT LOT # _[id number] 10/09/20.1459.DW . KIT EXP DATE _95-66-39 10/09/20.1459.DW . NORMAL RANGE IS NOT DETECTEDNEGATIVE RESULTS SHOULD BE TREATED PRESUMPTIVE AND, IF INCONSISTENT WITHCLINICAL SIGNS AND SYMPTOMS OR NECESSARY FOR PATIENT MANAGEMENT, SHOULD BETESTED WITH DIFFERENT AUTHORIZED OR CLEARED MOLECULAR TESTS. NEGATIVE RESULTSDO NOT PRECLUDE SARS-CoV-2 INFECTION AND SHOULD NOT BE USED THE SOLE BASISFOR PATIENT MANAGEMENT DECISIONS. Name Value Range Interpretation Code Description Data [facility] rce(s) Supporting Document(s) ID Date Data Source [id number] 10/09/2020 01:49:00 [place] [address] PHONE: [phone] FAX: [phone] Name .................. : ANNA Moreirat Number.................. : [id number] ROOM. ................. : TR-02 Number ................... : [id number] Stay type ............. : E/R Discharge Date......... ... : Admit Date ......... : 10/09/20 Admit Phys .................... : [facility] Date of ....... : 1940 Family Phys ................... : NAUN MTZ Phone .................. : [phone] Age ................................ : 80 Film# .................. .:[id number] Sex ................................. : F Unsigned transcriptions are preliminary reports and do not represent a medical or legal document DOPPLER UNILATERAL VENOUS [id number] COMPLETE:10/09/20 13:06 KNB [id number] Reason(s): Discolored Ext remity LEFT LEG VENOUS [...] rce(s) Supporting Document(s) ID Date Data Source [id number] 10/09/2020 01:41:00 PM EDT [facility] Name Value Range Interpretation Code Description Data Vivian rce(s) Supporting Document(s) BNP 9595 PG/ML 0 - 450 H [facility] ID Date Data Source [id number] 10/09/2020 01:41:00 PM EDT [facility] Name Value Range Interpretation Code Description Data Vivian rce(s) Supporting Document(s) COMPREHENSIVE METABOLIC PANEL [facility] COMPREHENSIVE METABOLIC PANEL Sodium [Moles/volume] in Serum or Plasma 141 mEq/L 134 - 153 [facility] Potassium [Moles/volume] in Serum or Plasma 4.2 mEq/L 3.6 - 5.0 [facility] Chloride [Moles/volume] in Serum or Plasma 96 mEq/L 98 - 107 L [facility] Carbon dioxide, total [Moles/volume] in Serum or Plasma 35 MEQ/L 22 - 30 H [facility] Glucose [Mass/volume] in Serum or Plasma 140 MG/DL 70 - 99 H [facility] BUN 26 MG/DL 7 - 21 H [facility] Creatinine [Mass/volume] in Serum or Plasma 1.4 MG/DL 0.7 - 1.5 [facility] BUN/CREAT 19 8 - 27 [facility] Protein [Mass/volume] in Serum or Plasma 6.0 G/DL 6.3 - 8.2 L [facility] Albumin [Mass/volume] in Serum or Plasma 3.8 G/DL 3.9 - 5.0 L [facility] Globulin [Mass/volume] in Serum by calculation 2.2 GM/DL 2.4 - 3.2 L [facility] A/G RATIO 1.7 0.8 - 2.0 [facility] Calcium [Mass/volume] in Serum or Plasma 8.8 MG/DL 8.4 - 10.2 [facility] Bilirubin.total [Mass/volume] in Serum or Plasma 0.9 MG/DL 0.2 - 1.3 [facility] Alkaline phosphatase [Enzymatic activity/volume] in Serum or Plasma 304 U/L 38 - 126 H [facility] Aspartate aminotransferase [Enzymatic activity/volume] in Serum or Plasma 28 U/L 5 - 40 [facility] Alanine aminotransferase [Enzymatic activity/volume] in Seru m or Plasma 17 U/L 7 - 56 [facility] Anion gap 3 in Serum or Plasma 10.0 mmol/L 8.0 - 16.0 [facility] AGE 80 yrs [facility] NON-AA GFR 38 mL/min [facility] AFR AMER GFR >60 [facility] Male GFR In terprentation [...] >32 mL/min Normal ID Date Data Source [id number] 10/09/2020 01:36:00 PM T [facility] Name Value Range Interpretation Code Description Data Vivian rce(s) Supporting Document(s) Lipase [Enzymatic activity/volume] in Serum or Plasma 18 U/L 13 - 60 [facility] ID Date Data Source [id number] 10/09/2020 01:09:00 PM EDT [facility] Name Value Range Interpretation Code Description Data Vivian rce(s) Supporting Document(s) TROPONIN T 0.05 NG/ML 0.00 - 0.10 [facility] TROPONIN T0.1 ng/ml Recommended as the c linical threshold value forTroponin T. ID Date Data Source [id number] 10/09/2020 01:03:00 PM [facility] Value Range Interpretation Code Description Data Vivian rce(s) Supporting Document(s) CBC W/AUTOMATED DIFF [facility] COMPLETE BLOOD COUNT Leukocytes [#/volume] in Blood by Automated count 8.3 10^3/uL 4.2 - 1 1.0 [facility] Erythrocytes [#/volume] in Blood by Automated count 4.08 10^6/uL 4. 20 - 5.40 L [facility] Hemoglobin [Mass/volume] in Blood 12.7 g/dL 12.0 - 16.0 [facility] Hematocrit [Volume Fraction] of Blood by Automated count 39.3 % 3 7.0 - 47.0 [facility] Erythrocyte mean corpuscular volume [Entitic volume] by Auto mated count 96.3 fL 81.0 - 101 [facility] Erythrocyte mean corpuscular hemoglobin [Entitic mass] by Automated count 31.1 pg 27.0 - 34.0 [facility] Erythrocyte mean corpuscular hemoglobin concentration [Mass/volume] by Automated count 32.3 g/dL 31.0 - 36.0 [facility] Erythrocyte distribution width [Ratio] by Automated count 16.9 % 11.5 - 14.5 H [facility] Platelets [#/volume] in Blood by Automated count 187 10^3/uL 150 - 45 0 [facility] Platelet mean volume [Entitic volume] in Blood by Automated count 11.6 fL 7.4 - 10.4 H [facility] Neutrophils/100 leukocytes in Blood by Automated count 73.7 % 37. 0 - 80.0 [facility] Lymphocytes/100 leukocytes in Blood by Manual count 13.8 % 25.0 - 40.0 L [facility] Monocytes/100 leukocytes in Blood by Automated count 10.8 % 3.0 - 8.0 H [facility] Eosinophils/100 leukocytes in Blood by Automated count 0.5 % 0.0 - 7.0 [facility] Basophils/100 leukocytes in Blood by Automated count 0.5 % 0.0 - 2.5 [facility] %IG 0.7 % 0.0 - 0.0 H [facility] al %NRBC 0.0 % 0.0 - 0.0 [facility] al Neutrophils [#/volume] in Blood by Automated count 6.12 10^3/uL 2.00 - 6.90 [facility] Lymphocytes [#/volume] in Blood by Automated count 1.15 10^3/uL 0.60 - 3.40 [facility] Monocytes [#/volume] in Blood by Automated count 0.90 10^3/uL 0.00 - 0.90 [facility] Eosinophils [#/volume] in Blood by Automated count 0.04 10^3/uL 0.00 - 0.70 [facility] Basophils [#/volume] in Blood by Automated count 0.04 10^3/uL 0.00 - 0.20 [facility] #IG 0.06 10^3/uL 0.00 - 0.10 [facility] #NRBC 0.00 10^3/uL 0.00 - 0.00 [facility] MANUAL DIFF NOT INDICATED [facility] RBC MORPH NOT INDICATED [facility] ID Date Data Source [id number] 10/09/2020 01:03:00 PM EDT [facility] Name Value Range Interpretation Code Description Data Vivian rce(s) Supporting Document(s) Fibrin D-dimer FEU [Mass/volume] in Platelet poor plasma 3.05 ug /mL 0.27 - 0.50 H [facility] ID Date Data Source [id number] 10/09/2020 01:02:00 PM EDT [facility] Name Value Range Interpretation Code Description Data Vivian rce(s) Supporting Document(s) Prothrombin time (PT) 27.7 SECONDS 11.0 - 15.5 [facility] INR in Platelet poor plasma by Coagulation assay 2.54 0.93 - 1. 23 H [facility] aPTT in Blood by Coagulation assay 45.4 SECONDS 24.8 - 36.7 H [facility] \\BLDo\\INR INTERPRETATION\\BLDx\\ Therapeutic range for Coumadin and related oral anticoagulants. - International Normalized Ratio (INR): 2.0 - 3.0 for Venous Thrombosis, Pulmonary Embolus, Tissue heart valves, Acute [place] Atrial Fibrillation, Valvular heart disease and recurrent Systemic Embolism. - International Normalized Ratio (INR): 2.5 - 3.5 for Mechanical Prosthetic valve. ID Date Data Source [id number] 10/01/2020 08:39:42 AM [facility]T [facility] Name Date of Age Gend*PT [id number] Joy Dent 1940 80 years F HOPPT Location Admission Date/Time Visit ID Attending Provider09/14/20918 --- --- EPI ID CSN Admitting Provider [id number] Toyin Lopez MD([id number])NAME: Joy Babb#: [id number] #: DATE: 09/14/2020 PT TYPE: C SURACCT #: [id number] : 1940 SEX: femaleReferring Physician:Primary Care Physician: [...] right common femoral artery was accessed using 5-Djiboutian micropuncture kit,which was switched to a 5-Djiboutian sheath and Omni flush catheter was placed upand over the bifurcation into the left common femoral artery. left leg runoffwas done, which showed patent common femoral, patent profunda femoris artery.The superficial femoral artery has a proximal highly diseased area with 85%stenosi. The popliteal artery is diseased with a 2 -vessel diseased runoffdistally. Patient was given 5000 units ofheparin and up and over 5-Djiboutian sheath was placed and wire access was obtainedthrough the diseased region intothe left above-knee popliteal artery. Left superficial femoral artery balloonangioplasty was done with 4 mm balloon. Left superficial femoral artery balloonangioplasty was repeated with drug alluding ballloon, 4 x 80 mm balloon.Completion film showed resolution ofthat diseased area, patent popliteal artery with unchanged distal runoff. Thesheath was exchanged for a short 5-Djiboutian sheath. A Mynxclosure device was used to close the right groin arteriotomy. There was nobleeding or hematoma present. Patient was stable throughout the procedure Muriel was present throughout.Contrast : 14 Sandra Lopez MD Name Value Range Interpretation Code Description Data Vivian rce(s) Supporting Document(s) ID Date Data Source [id number] 09/14/2020 12:22:31 PM EDT [facility] Name Value Range Interpretation Code Description Data Vivian rce(s) Supporting Document(s) IR IS ARTERIOGRAM EXTREMITY SINGLE LEFT [facility] ID Date Data Source [id number] 09/14/2020 10:15:15 AM EDT [facility] Name Value Range Interpretation Code Description Data Vivian rce(s) Supporting Document(s) POC NOVA GLU 222 mg/dL (70-99) H [facility] [place] PERFORMED BY [facility] ID Date Data Source [id number] 09/14/2020 10:10:47 AM EDT [facility] Name Value Range Interpretation Code Description Data Vivian rce(s) Supporting Document(s) POC PTINR 1.3 [facility] SUGGESTED THERAPEUTIC RANGES USING INR F ORSTABILIZED ANTICOAGULATED PATIENTS:STANDARD DOSE THERAPY INR 2.0-3.0 DVT, PE, PREVENT DVT OR EMBOLISMHIGH DOSE THERAPY INR 2.5-3.5 PREVENT EMBOLISM FROM MECHANICAL HEART VALVEPERFORMED BY [facility] ID Date Data Source [id number] 09/10/2020 09:01:00 AM EDT [facility] Name Value Range Interpretation Code Description Data Vivian rce(s) Supporting Document(s) COVID-19 RT-PCR NASAL SWAB Not Detected Not Detected [facility] A not detected (negative) test [...] developed and its performance characteristics determined by [employer] and verified at [employer]. It has not been cleared or approved by the U.S. Food and Drug Administration for diagnostic use. This test has been authorized by FDA under an EUA for use by authorized laboratories. Results should be used in conjunction with clinical findings, and should not form the sole basis for a diagnosis or treatment decision. Methods: SARS-CoV-2 Multiplex RT-PCR Assay ID Date Data Source [id number] 09/09/2020 10:15:00 AM EDT [facility] Name Value Range Interpretation Code Description Data Vivian rce(s) Supporting Document(s) SARS-CoV-2 (COVID-19) N gene [Presence] in Respiratory specimen by KIET with probe detection NEGATIVE [facility] This lab was ordered by Enrique Brock and reported by [employer]. ID Date Data Source [id number] 09/04/2020 10:41:00 AM EDT [facility] Name Value Range Interpretation Code Description Data Vivian rce(s) Supporting Document(s) Laboratory test finding (navigational concept) Laboratory test result [facility] ([facility]) BASIC METABOLIC PANEL Sodium 141 meq/L 134-153 [facility] Chloride 97 meq/L 98-107 [facility] Potassium 4.3 meq/L 3.6-5.0 [facility]) Co2 35 meq/L 22-30 [facility]) Glucose 198 mg/dL 70-99 [facility] Creatinine 1.4 mg/dL 0.7-1.5 [facility] BUN 25 mg/dL 7-21 [facility] ([facility]) BUN/Creat 18 8-27 [facility] ([facility]) Calcium 9.7 mg/dL 8.4-10.2 [facility] ([facility]) Anion Gap 9.0 mmol/L 8.0-16.0 [facility] Laboratory test finding (navigational concept) Laboratory test result [facility] ([facility]) Laboratory test finding (navigational concept) 80 yrs [facility] ([facility]) Laboratory test finding (navigational concept) 38 mL/min [facility] ([facility]) Male GFR Interprentation 20-49 yrs >60 mL/min [...] >32 mL/min Normal ID Date Data Source [id number] 09/04/2020 10:41:00 AM EDT [facility] Name Value Range Interpretation Code Description Data Vivian rce(s) Supporting Document(s) Protime 20.0 s 11.0-15.5 [facility] ([facility]) PTT 38.6 s 24.8-36.7 [facility] ([facility]) \\BLDo\\INR INTERPRETATION\\BLDx\\ Therapeutic range for Coumadin and related oral anticoagulants. -International Normalized Ratio (INR): 2 .0 - 3.0 for Venous Thrombosis, Pulmonary Embolus, Tissue heart valves, Acute [place] Atrial Fibrillation, Valvular heart disease and recurrent Systemic Embolism. -International Normalized Ratio (INR): 2 .5 - 3.5 for Mechanical Prosthetic valve. Inr 1.62 0.93-1.23 [facility]) ID Date Data Source [id number] 09/04/2020 10:41:00 AM EDT [facility] Name Value Range Interpretation Code Description Data Vivian rce(s) Supporting Document(s) Laboratory test finding (navigational concept) Laboratory test result [facility] ([facility]) COMPLETE BLOOD COUNT WBC 8.2 10^3/uL 4.2-11.0 [facility]) RBC 3.84 10^6/uL 4.20-5.40 [facility] ([facility]) Hemoglobin 12.1 g/dL 12.0-16.0 [facility] ([facility] [...] 150-450 [facility] Henderson 8.9 % 3.0-8.0 [facility] ([facility] [...] 1.45 10^3/uL 0.60-3.40 [facility] ([facility]) Laboratory test finding (navigational concept) 5.66 10^3/uL 2.00-6.90 [facility] ([facility]) Laboratory test finding (navigational concept) 0.03 10^3/uL 0.00-0.10 [facility] ([facility]) Laboratory test finding (navigational concept) 0.03 10^3/uL 0.00-0.20 [facility] ([facility]) Laboratory test finding (navigational concept) 0.26 10^3/uL 0.00-0.70 [facility] ([facility]) Laboratory test finding (navigational concept) Laboratory test result [facility] ([facility]) Laboratory test finding (navigational concept) 0.00 10^3/uL 0.00-0.00 [facility]) Manual Diff Laboratory test result [facility] ([facility]) ID Date Data Source [id number] 09/04/2020 11:47:00 AM EDT [facility] Name Value Range Interpretation Code Description Data Vivian rce(s) Supporting Document(s) BASIC METABOLIC PANEL [facility] BASIC METABOLIC PANEL Sodium [Moles/volume] in Serum or Plasma 141 mEq/L 134 - 153 [facility] Potassium [Moles/volume] in Serum or Plasma 4.3 mEq/L 3.6 - 5.0 [facility] Chloride [Moles/volume] in Serum or Plasma 97 mEq/L 98 - 107 L [facility] Carbon dioxide, total [Moles/volume] in Serum or Plasma 35 MEQ/L 22 - 30 H [facility] Glucose [Mass/volume] in Serum or Plasma 198 MG/DL 70 - 99 H [facility] BUN 25 MG/DL 7 - 21 H [facility] Creatinine [Mass/volume] in Serum or Plasma 1.4 MG/DL 0.7 - 1.5 [facility] BUN/CREAT 18 8 - 27 [facility] Calcium [Mass/volume] in Serum or Plasma 9.7 MG/DL 8.4 - 10.2 [facility] Anion gap 3 in Serum or Plasma 9.0 mmol/L 8.0 - 16.0 [facility] [address] [facility] AMER GFR >60 [facility] NON-AA GFR 38 mL/min [facility] Male GFR Inter prentation [...] >32 mL/min Normal ID Date Data Source [id number] 09/04/2020 11:02:00 AM EDT [facility] Name Value Range Interpretation Code Description Data Vivian rce(s) Supporting Document(s) Prothrombin time (PT) 20.0 SECONDS 11.0 - 15.5 [facility] INR in Platelet poor plasma by Coagulation assay 1.62 0.93 - 1. 23 H [facility] aPTT in Blood by Coagulation assay 38.6 SECONDS 24.8 - 36.7 H [facility] \\BLDo\\INR INTERPRETATION\\BLDx\\ Therapeutic range for Coumadin and related oral anticoagulants. - International Normalized Ratio (INR): 2.0 - 3.0 for Venous Thrombosis, Pulmonary Embolus, Tissue heart valves, Acute [place] Atrial Fibrillation, Valvular heart disease and recurrent Systemic Embolism. - International Normalized Ratio (INR): 2.5 - 3.5 for Mechanical Prosthetic valve. ID Date Data Source [id number] 09/04/2020 10:51:00 AM EDT [facility] Name Value Range Interpretation Code Description Data Vivian rce(s) Supporting Document(s) CBC W/AUTOMATED DIFF [facility] COMPLETE BLOOD COUNT Leukocytes [#/volume] in Blood by Automated count 8.2 10^3/uL 4.2 - 1 1.0 [facility] Erythrocytes [#/volume] in Blood by Automated count 3.84 10^6/uL 4. 20 - 5.40 L [facility] Hemoglobin [Mass/volume] in Blood 12.1 g/dL 12.0 - 16.0 [facility] Hematocrit [Volume Fraction] of Blood by Automated count 38.0 % 3 7.0 - 47.0 [facility] Erythrocyte mean corpuscular volume [Entitic volume] by Auto mated count 99.0 fL 81.0 - 101 [facility] Erythrocyte mean corpuscular hemoglobin [Entitic mass] by Automated count 31.5 pg 27.0 - 34.0 [facility] Erythrocyte mean corpuscular hemoglobin concentration [Mass/volume] by Automated count 31.8 g/dL 31.0 - 36.0 [facility] Erythrocyte distribution width [Ratio] by Automated count 16.4 % 11.5 - 14.5 H [facility] Platelets [#/volume] in Blood by Automated count 150 10^3/uL 150 - 45 0 [facility] Platelet mean volume [Entitic volume] in Blood by Automated count 11.8 fL 7.4 - 10.4 H [facility] Neutrophils/100 leukocytes in Blood by Automated count 69.3 % 37. 0 - 80.0 [facility] Lymphocytes/100 leukocytes in Blood by Manual count 17.8 % 25.0 - 40.0 L [facility] Monocytes/100 leukocytes in Blood by Automated count 8.9 % 3.0 - 8.0 H [facility] Eosinophils/100 leukocytes in Blood by Automated count 3.2 % 0.0 - 7.0 [facility] Basophils/100 leukocytes in Blood by Automated count 0.4 % 0.0 - 2.5 [facility] %IG 0.4 % 0.0 - 0.[address] [facility] %NRBC 0.0 % 0.0 - 0.0 [facility] al Neutrophils [#/volume] in Blood by Automated count 5.66 10^3/uL 2.00 - 6.90 [facility] Lymphocytes [#/volume] in Blood by Automated count 1.45 10^3/uL 0.60 - 3.40 [facility] Monocytes [#/volume] in Blood by Automated count 0.73 10^3/uL 0.00 - 0.90 [facility] Eosinophils [#/volume] in Blood by Automated count 0.26 10^3/uL 0.00 - 0.70 [facility] Basophils [#/volume] in Blood by Automated count 0.03 10^3/uL 0.00 - 0.20 [facility] #IG 0.03 10^3/uL 0.00 - 0.10 [facility] #NRBC 0.00 10^3/uL 0.00 - 0.00 [facility] MANUAL DIFF NOT INDICATED [facility] RBC MORPH NOT INDICATED [facility] ID Date Data Source [id number] 08/21/2020 01:49:00 PM EDT [facility] Name Value Range Interpretation Code Description Data Vivian rce(s) Supporting Document(s) SARS-CoV-2 (COVID 19) NEGATIVE - SARS-CoV-2 (COVID19) [facility] This lab was ordered by [facility] a nd reported by [facility]. ID Date Data Source [id number] 08/03/2020 10:28:00 AM EDT [facility] Name Value Range Interpretation Code Description Data Vivian rce(s) Supporting Document(s) Arterial Ultrasound Lower Extremity Left Laboratory test result [facility] ([facility]) ID Date Data Source [id number] 06/12/2020 01:22:23 PM EST [facility] Name Value Range Interpretation Code Description Data Vivian rce(s) Supporting Document(s) &PDF [facility] PLUSWk7yOsRGXoWi30/KBLvlURWjr1ZjGUvfSDz1UCvbTRNeM0KtyPhuPIOOUFwbFz5OMOXoFXSgHtGb gU3 [file] /0i0SksJVafXKJX7KN8eo7UOYNxNNF283et/ZxG [file] UsQjbaAOvcFbigPt7iWQZOEg1+OKqsfUAaeJimGZTJRkv6AvtoTPybAXFUWw9I ID Date Data Source [id number] 06/12/2020 11:30:20 AM EST [facility]FORMATION[facility] Name Date of Age Gend*PT [id number] Joy Dent 1940 80 years F HOPPT Location Admission Date/Time Visit ID Attending ProviderCV-27 06/12/20 0959 --- Benjamin Evans MD([id number]) EPI ID CSN Admitting Provider [id number] Benjamin Evans MD([id number])Updated H&PPlease see the scanned/dictated outpatient note.I have reviewed the note, clinical history and physical exam findings. Therehave been no significant changes.Plan as outlined in the outpatient note.Risk/benifit/alternative of cardiac catheterization was discussed withpatient/family. Risks included, but not limited to; [place], CVA, , renalimpairment, vascular complication, and need for emergency surgery were discussedand accepted by patient.Benjamin Evans MD, [facility] CITYAIInterventional Administrator [facility] Name Value Range Interpretation Code Description Data Vivian rce(s) Supporting Document(s) ID Date Data Source [id number] 06/12/2020 11:24:05 AM EST [facility] Name Value Range Interpretation Code Description Data Vivian rce(s) Supporting Document(s) EKG [facility] PTPNOb1jCqCKMsOzk2DeSoPtGRVdQK7hzwf8P9R1lHBbA2RwtDEjk1irI2CkN1WoNANzIZETZZ6GuOTd jb2 [file] z4HPf3/+wx38z7/+3d/++n/+9p//dG9//vY//evp operations///qDeG3tOQ3/Marketing Planning Manager///sv/+XoRcwyq78///xzhjM/ [file] tEk6UAQAhoswsR1S+Robert+b+99ckSB2QwqmoOPmMrfWukfn0WH3PWutQMCTx28R4uh2asko4ladc5rqklU rUbLD7GMR6qiCfF22ahnNQDM6ThQHh1fmoFjI+xKO0wFr4UfN7wLOr6nhqRye9MKoGhGvL4XsS5FaSQZ mFgGI4qNVu+cQQM/6Up8XQ8hFj0rSobspn75Hz6u6O dCyHIDEnK7q7W/j+ano0K9p482TO+a9Q7lYFXJ1VQ9K0uzETn8ulXmd85Sq0L4hLNVY4pxuLp8CsnUof Oci8kKVQobmPzEp3TDOIInfBzHKKlxCvrNvaDAtaNdBSUkwA1IDcWt6ZtZlImRIAC9dei1OOSJrdNcRz q4HWZYfj002CfWMchKPg19meLwcFNTuIXUcA1lHIFM SyZ9vPab/Qnrt9PJ7DMGXpjHegMPtMuG6b5xKD17HuZbJnKgZLokkHQyGmxHGix/6z//z3//jS2dzD2d /ff//vu//lf5v//++//9+x//rb7cH/60Tl/uD6f/Ymd2Jj46Wv6mmsg+vd/m819W+WH5+ol5gQF60R4U +HY1QfH6E/1lkz+5rU0ENHKH9JET1HF6at8FWuXehz lT10E5338v6AWNOZZlV/HHWVIs1GcI5TNlWLkbNvgRfwjF4gtQ6nIus9ed1+a+3FJ3gyzdGyeFwc4+We CRdpLK1A3zT/y01eUYQgY3ZbSfATY/A/k9vV1S33ff9dl7Lcc2C/TSAOYZ9Bkg+sm16JJ7mp11/hPrvL C/C/u7sL8L+5bljci0e5K/C/w4xL7d8copBV0pj852 gL5iR2n999u2xiFotyc2Ul+0Ktbe3GJeT2aixxc9gDI+K4lLIXZ7KT64FS0D0/2O60cQJEvRYkKuvL+6 HT/nhIhgpp2j4ko8E9HsS/73HHekOCl+JYeA+UM2dxIZ2INgVgKA18lmkN6Zid1OyFMmlmRO+xm3AlPE +A86sOn23/ei7f0kjL+m5Pgvv/qoSjnPL7/9fKp2qw +/+dm2l5a378Il3Ce3P37tCox1sMv1ohYFuwtzk3Oi/JNo5svc1Aj+iG6A1Q3+Veey/c8ap9YnK27Q17 w/2kVm2CqGD5a3d/jSLSWFL7+qrVqp+jQ31Rsrm6z+E45M98uG/g6Dz6Qigg1Byr56xpCP5ak3M9yT/K q6p/k0dGgNY/kY8jVyp+q+5rvOXXuU/DgkPIf34YiB [employer] MAKER/w37zx4QMlnhK18MpwPizRewxf/fhiQ2m6OviTN6T9VqHKe4Ehqg/iIFr5gtAEdhD/44dx4DUrMi2s +zFyZ32KwGdgo+uQ/MrXJ7/6fFWT/o77fYH+qS/3h9a/S2Fp1adDW/TO4ypSdr+Zwgxww6Rsnxgh7fVB OsfVmie/ByCntw2GhY6ga3S3V51C4fzVe4O4L/mVzn r4VC68Cet7U/dHsxp/9pa00sFYd/tyf1Qp/ft33M+Vf+7Q6EEf30dhKhrUl1ca+bzpuvhoUfvPfbk/et H0CoOn2rPRBT/HrTn/bDe4yn1g47wl+K60ZM7FGr64n03+2k/YTfmU8yP+uS/353XPuSW/+jCsP/fl/i i9IcbqEz7Gi3atlovjv+9X715jG4jKNTJu8Of7dbpg g13eI0zbMtmRElgBdjOK82ZgZMae3c8ZvpokL+mg+Ibmqh7ffhng/oyzLX3T0pM1WPjjSiq7Z+6zjw37 m/FV8t7dC15Y4Qu8inOk7xfz9DDiqJqwSLrS8Zez13F4IFkrAbtCkl0LO9oMDh1hxeTX+BuR3gh/I9IZ 4W9T+xU0EHqZiV+U1Wfxn7OYxjnDs/LfLV+YCiLU0Q Bq8uYelwpiDJmVdtqvpsDlrFzRIXEPjpjD605+8vSC9AjTG5Ty6AT3tycFabO+dgu6K5S/cV/mZ08NC2 w/5tnlY8CDI1oBeJh3K/znC0FaucPgA2XB066r/cB9Ju6/IH63dg0S6EG2ZZ/5qlm+Rk2gqzKC3QK5Vq 0ozaYz0KG6bW7kC0oBNoNmtluH4dtUDyv1FX2pu4qL 0o/qw2ZwB9AoiVvjdc/PoQVw84jhrjSUo17g1GEBE+sAtiX4ZEyWXuCjMBuvL6vDhnhF0ejB6fCjo3Wt a1d+vjDWQgFx5YfqA2/yc+f0QFjpmU4Uub3yN4/e1RS9Bb1dPWpalmuaiK4E39I+7CUh0h1w8Hcu3twi f4HlsMrc16C5ag71paPuXz4q60h1tlrUosfh+FV+C9 Dj5SgDCXbLrFg1qIZ5wkUxa8q9gKS6FeT+i2JgWk3M7IDl/Tmtgwhl5T4AI2Ln1BseZ80Spj3nf83RuU CTkisc33dW5aFDq/xGiZUi5RVc2yQOTfC80b36KCG+O+V29f3+3dmO2jj5m9+b+3J/zrrus/P+379N0/ +HEbY/9+Q96VMc1aQkiw7/hf+9payu6/Z4zN9H1ks1 TZv/9kJtinDw3Pw3r59+B+L8iyW169j9L/dn0/af+3J/HjHvmfarNdTHu/30r17u/nbzq7x/wIM5M7xr Tzt/v36HKw2IQrtis4fKUm9QvaxV+vfF4PdrjHF/Rw/LP5FNV73/m+WaiZPeYFuI7plf/OSZFEl/dAPd Qee4U3+c7994j53vkB0+LHd9tMNhnUhlPp+DvuXwtO no1trfnuBufTG/RlD6IR4TZ7Hp9/Gkl33Aase8vsM2UVI/Lgq7u2mG5jlcWm0IK73d8SEw5qV2W/dnkf TvV25P+96x7uKtg82Tdx61qE6Eh1amqca/PGiek+RXkm/Imr42zFjm4xqWg4v3d9efRkzU8Nx4b1stKy cNBLXh5A35Lq4SkPnHr/vKGN32Et0NF/xtjqvzk/qg 8Ad26LtwzsRHyqGw01o8JDX5K1bf9Mm0BsrFJpjZT/1Le8LZic0pQ3b/Nt8Rwu7U+s+J2M2Wyqdr+srt fV+5vW+cZ+mDer/21UPTMm/dtku+1cUoZ0sD84bs07qo+7ah3A8fB7nBnPsI/95/707gKQZY3ZG9Ac56 5GgI2QXgEkqFxx/kqzz/Q/BT0HF81qvpo+s++z4L7F aD4obZsV3Du5t59C41iGTQJK/wkGLZI7q2vNj32vWErig/v6M2/SmFjC4oG+Kahb+9zu3ToFK5kJ0NUO TKYFhS1KA4YB/Q+3H6dvVmC2n+0zbVmy18ZX7djQ3Om/E6GFjKpfXSASbOH+pwXOcM7bUtuPvcRVuxBp Kzlj2uku0m+9r88afFE+gKuoHuoAdojDuxv/PqZUP2 wqSSBG7WbcysOGZOyeCpGFm0jaHsSjZAzIt/JiLvA88VA335X9Puc457Dutsj76e+4A+ODb2V/wqec58 2e1S427A12yQE66FlcJuxMzkBFkJutHvQQu4gmIVKyJM7sbHT++eLyVsv7h74U+s5o2rnScdZXdKK/yD M+88Q2SW0c9X99uza/typ/BvbgsP39vlgZ4V5x5kj4 +on6224nXKa3u+ZW/BfDYnN06l46k7a2Ba6uo11aayt2718i49ET/Dd23Jbc/osl0sTkn2rd6vZvwoxc 5HvQ3j9v7yp9tRgo1u21vb5o4jTl8nZf+r4tZk2FGGYkr0mi+kkWISRwsgvk2jjevvn3fgzx3zj8Hjc+ 911m/6KHl5/6F1Vv/tlNtTZpiyt+r8W1Nh5t0fz2Af Sx/NLcs0x5q4Hsr38+/7JkYcy1OOfnNeyOarl9Te16+ruAsr4l3MGpfgaU6zN+pqD7aU415Dr9/Z2/Vc dupDpre9wCv47SqbzBC9l/pvFN8YcP3J7r66yz96py0rqY+yt+s0yYf43c0tnj+sJ45E8fz/WkBV6QI/ g6Jh8wmG38os0ovDC/l8Npjcal980TZZLcFt62hmVN 4dQtZ2xv9zrq58911T8a6jijHzv/EUilphHgrI02kx66ivzY/Z2/TzUxM9i/495XbNU/x2oPZH1V70/r TFk43qGNDOkdGPrP05ZFb32bx/hmN0eaHnu3iUnBm3tf9l9fvLmp/TC4gg3I/wSqU5SZ32yr8zfdUxwl sS32wE50wmou/ear728hMae6fxF6Q0y18oeXjPD0yY +za3q96BRCb4fe440633w82O9ucku01/6HS2kBjKsYLhUQ0jB6B/Wv1+ErinU7jn7+Dq9/u7+gA9QS/Q N41q9yCjINcuFvoVlcyNp3fYwMVyLh9jSD8fGO5rkgvgE/PKdWte+/BIe0T4pLh9u1k85GH/Tz17ueKp dhgbO3kgbsmYvpjzVaxOrzZWfRldo1zwprR/sLevje hdPuJFzifsqoY1xaCwhfuPO/pyrA8oP8BD3KYn/d3P/F7x9Yq8z/WFrJRk+YAXPu4eJzzhcGti6Id98b 17+1d0rkUbeuoY12w227jIupbz1PMfRiyXhhS37JM0bs2isf900mXj27tYQeWb3B3u0zCPo/mNeP8Xo1 +80islZ38BK76EC16HB80JW61wr/5b7C/q2Jz19s91 [file] Pvv/787k9+mc24uK8p/fSs39ofHJ498E052L87Yq03E71vgz6mvo/d2opf4qlYB28bLp5/7ZJ484JnwY A02j6TaD1/BYmOVa956I6Yuiq7V1fDz5/u754/e3Jz +M746q9he1ogbt0dUG3h82e+c/1905nD7+uXp/N/1yS9G09rav7idTD6+smXd0+ePr2+f/L82Z/s+/zk PO/40mF4g913+O500j/+xkq5k45/hh9j0dSoU+//7dVLhq7hRk1//OX0gx/+evjw/hBf1C/GNUvpKvLV aYJy/c0f+gvWbdnsRv014lwcCy3nI1kpIq8b012D2u O+t+zt5fj4/4B9Vo3d2/f01wFP3gN07kikX11r6BkmFADYaVE3KmM7qouJ2P8xnfUcwFlezq696lvyhp 3xKXCke5m2fhyjlx52wu3zwEC4A+SIn1ydzoX+xzd68Odqa07hj1dshoyd4R638PAuP3e/e4zo7wLa4p Dm/a+chrome tanner/7Pw9s/8yhklbuky5/UW1uk/unuZ+O3dy8P P/66Aw8In/ef7n/UVn6yf+1ia/v2/otv71+h/aQ2W2Ee3c2oxW0f9K9QGGhlAbMDxk9ZfhE5aSC8gOm3 470a666oqo54snu4p7s058b//GS6w8gteNvgU5qxKZ/98JfT0/j3jz/02ZHc02N5+pO3j0gNZ4l4nF32 +D1Qai8qPn5/pP7gJ8z7+HIj3qp6E2C7tpiF+umHV1 c83/HtUdqXc/P961c/v3/j9oJCh7CT87ok7yQysewgmc9At8+qeTy2aiHJqs+rFw//en1Ihw//PPBwZy Iuol5bt8Ro7T87fhep4gt6Ry8BTjnopA1gw6cXu33+6ORR1XL2l/G0y1qreW8KGt7rxZn8+/8HqvnOAQ erguXzaPZvBL7YZU5qd3ScWpY4JQEai4GyBGzoUSx1 jRCwNLhiwfHsh5SjcjmoY0Tgg7BrTrCgSYNkUwNqYlb5JKQgWrM4mBZsMjMqIKEiZ8WmXJKgLbW2LxSf USFEIK8MFJQkhlRhAvHlMOQ+UcEwDL2xqezeZCByn8SiEQmaMKbjSIBlS8L1mBwdMIUoZ7FspE00KZAq T1YkzhJ3YRO3RGYhEbHiNQUrkHVmVOEjEFW+PmVuZG 9lwnrsTGYtg8RlIZfoPAP5fO1qVSbETQVXGGhFIZmeNmD1t75ccwIEIVHkNDStLI0PwrOnhJsidxOlnR MmETU0NgZtMEAtBTFjLHF5MLKBBBCdACJxUYJoNPIxH0JtpBcvHJpLHKINSIvORKnqQoBhi4G7CFZzag VLDNDfPEKAH5twDGWuXPeyBQn0DYUfH9NpdiNwfBFu DRXQQBshRlxuQZUhoR4hiYykH4XfQDP5q5AvTC5KD6AyXUGsTYFULPM9j8BkMIJvxrmqvssvCrAmJMXx CAZsGCItDW8Gfp4ddSWssyHcDKQCURuyYucdNI8kwNmwbftiW8BskTWrISY+OzGtGR7jvv7+CjEgMCBv Rwr3MITiYTarLORdEDIpSOIkM8mjUUMeRhXpWUJeRo XiMQ9Ma3OpjXNjFf0ocaFmNosJfWThQmwzIGDkWTTfYVIzDxPMGQKuQDZmPESiPUN7ZELkTSMhBDtlYZ HbECJ6FMq2BMVlUUKxRT4bLiYsZPUxJHB1KUidBMHyLTKglmYSYXOgPTZ6OkblDwQiYJHqFBCdGKvwWP QwAWRpUCZrXCJ1UEO9IDQhMkOjIJEeGRIjOAQlVCNx MPGidgBPRUEwCWApOUW8TOFkRSKlICZxCQwwAOEuUEBqBUftJFJmWPHoHR5hCnGfXWYgDHNfGLyrOHFd QKGeiqXMGPMkPVPlBTMaPKMtJTQzYQQsVDwkVJXbZXPrZJXpOHUvFLHqJM5qHeFiVKReHAZ2ZKEpSOFl QIHourIIAXHrLPDyQAr8FKLoVBKzIZOkMAezPTSbXD EbAEZ6EKOsOKUfZZ3fQmPzPQCuLCM8XuIbTTBhRPMjpeIXTGJvRTZbTZL6FaYdYFYcVHObWGvlBSGyQL RuFUhdDZIaAQWyYK5iGjNjWWUzJXEjNOafCOWzHNFmdwSSCINeJJJyEPCcLpHgSZDpACEdURxyCIMrXQ H0DbH1MRBlHAMnXF3zStQbQUNaZFX3VOmxBGIgTZKi uyKJVQPmZJFnAEegUNKdQELzEIGtZGyzHJXfQLEaHTV9FJOnVECoSF2vMhAcYBShUBMeIKWpRzD5BpQt PaAGhZWfuPtglof4WNorJ0p4KDHcAIpjPT8phdAxSTGsWqudMb2xoWT1UWBcJmfYLh5Lt0ObgxT0ylZf HfO9SWR8YdPtAJ5E ID Date Data Source [id number] 06/12/2020 10:35:57 AM EST [facility] Name Value Range Interpretation Code Description Data Vivian rce(s) Supporting Document(s) POC NOVA GLU 79 mg/dL (70-99) [facility] PERFOR[facility] BY [facility] CLINICAL STAFF ID Date Data Source [id number] 06/12/2020 10:36:28 AM EST [facility] Name Value Range Interpretation Code Description Data Vivian rce(s) Supporting Document(s) POC PTINR 1.4 [facility] SUGGESTED THERAPEUTIC RANGES USING INR F ORSTABILIZED ANTICOAGULATED PATIENTS:STANDARD DOSE THERAPY INR 2.0-3.0 DVT, PE, PREVENT DVT OR EMBOLISMHIGH DOSE THERAPY INR 2.5-3.5 PREVENT EMBOLISM FROM MECHANICAL HEART VALVEPERFORMED BY [facility] ID Date Data Source [id number] 06/11/2020 09:53:00 AM EST [facility] [address] [place] [address] PHONE: [phone] FAX: [phone] Name .................. : ANNA Medina Acct Number.................. : [id number] ROOM. ................. : MR Number ................... : [id number] Stay type ............. : O/P Discharge Date......... ... : 06/10/20 Admit Date ......... : 06/10/20 Admit Phys .................... : NAUN MTZ Date of ....... : 1940 Family Phys ................... : NAUN MTZ Phone .................. : [phone] Age ................................ : 80 Film# .................. .:[id number] Sex ................................. : F Unsigned transcriptions are preliminary reports and do not represent a medical or legal document SPINE THORACIC [id number] COMPLETE:06/10/20 11:34 3549 (SPINE PROC REASON: PAIN THORACIC SPINE, 06/10/20: FINDINGS: Status post median sternotomy. Pacer leads in good position. 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 IMPRESSION: DJD. No definite fracture seen. Electronically Reviewed and Signed By KVNG CABRERA MD , 06/11/20 09:53, [facility] Transcribe Initials: [facility], Transcribe Date: 06/10/20 14:45, Dictation Date: Copy for: NAUN HARTLEY via fax Copy for: [address] [facility] REC Page 1 of 1 Name Value Range Interpretation Code Description Data Vivian rce(s) Supporting Document(s) ID Date Data Source [id number] 06/11/2020 09:37:00 [place] [address] PHONE: [phone] FAX: [phone] Name .................. : ANNA Medina Acct Number.................. : [id number] ROOM. ................. : Number ................... : [id number] Stay type ............. : O/P Discharge Date......... ... : 06/10/20 Admit Date ......... : 06/10/20 Admit Phys .................... : NAUN MTZ Date of ....... : 1940 Family Phys ................... : NAUN MTZ Phone .................. : [phone] Age ................................ : 80 Film# .................. .:[id number] Sex ................................. : F Unsigned transcriptions are preliminary reports and do not represent a medical or legal document SPINE LS COMPLETE [id number] COMPLETE:06/10/20 11:34 3548 (SPINE PROC REASON: PAIN [...] for: NAUN HARTLEY via fax Copy for: [address] [place] [address] REC Page 1 of 1 Name Value Range Interpretation Code Description Data Vivian rce(s) Supporting Document(s) ID Date Data Source [id number] 06/07/2020 10:45:00 AM EST [facility] ([facility]) Name Value Range Interpretation Code Description Data Vivian rce(s) Supporting Document(s) Laboratory test finding (navigational concept) Laboratory test result [facility] ([facility]) This nucleic acid amplification test was developed and its performance characteristics determined by [employer]. Nucleic acid amplification tests include RT- PCR [...] detected) result in this assay. Performed at: [place] [id number] [employer] Operator: Clara Quevedo MD, Phone: [phone] Not Detected ID Date Data Source [id number] 06/07/2020 10:45:00 AM EST [facility] Name Value Range Interpretation Code Description Data Vivian rce(s) Supporting Document(s) SARS coronavirus 2 RNA Not Detected [facility] [place] This lab was ordered by [facility] and reported by [facility]. ID Date Data Source [id number] 05/19/2020 11:00:00 AM EST [facility] ([facility] [...] >32 mL/min Normal ID Date Data Source [id number] 05/19/2020 11:00:00 AM EST [facility] ([facility] [...] (Bolivar Sotomayor MD) ID Date Data Source [id number] 05/19/2020 11:00:00 AM EST [facility] ([facility] Sotomay[facility] MD) Name Value Range Interpretation Code Description Data Vivian rce(s) Supporting Document(s) Laboratory test finding (navigational concept) 2.69 0 .93-1.23 Above high normal [facility] ([facility] Sotomayor MD) \\BLDo\\INR INTERPRETATION\\BLDx\\ Therapeutic range for Coumadin and related oral anticoagulants. -International Normalized Ratio (INR): 2 .0 - 3.0 for Venous Thrombosis, Pulmonary Embolus, Tissue heart valves, Acute [place], Atrial Fibrillation, Valvular heart disease and recurrent Systemic Embolism. -International Normalized Ratio (INR): 2 .5 - 3.5 for Mechanical Prosthetic valve. Laboratory test finding (navigational concept) 29.9 s 1 1.0-15.5 Above high normal [facility] ([facility] Sotomayor MD) ID Date Data Source [id number] 05/19/2020 12:04:00 PM [facility] Name Value Range Interpretation Code Description Data Vivian rce(s) Supporting Document(s) COMPREHENSIVE METABOLIC PANEL [facility] COMPREHENSIVE METABOLIC PANEL Sodium [Moles/volume] in Serum or Plasma 138 mEq/L 134 - 153 [facility] Potassium [Moles/volume] in Serum or Plasma 4.9 mEq/L 3.6 - 5.0 [facility] Chloride [Moles/volume] in Serum or Plasma 95 mEq/L 98 - 107 L [facility] Carbon dioxide, total [Moles/volume] in Serum or Plasma 36 MEQ/L 22 - 30 H [facility] Glucose [Mass/volume] in Serum or Plasma 259 MG/DL 65 - 110 H [facility] BUN 26 MG/DL 7 - 21 H [facility] Creatinine [Mass/volume] in Serum or Plasma 1.5 MG/DL 0.7 - 1.5 [facility] BUN/CREAT 17 8 - 27 [facility] Protein [Mass/volume] in Serum or Plasma 6.2 G/DL 6.3 - 8.2 L [facility] Albumin [Mass/volume] in Serum or Plasma 3.8 G/DL 3.9 - 5.0 L [facility] Globulin [Mass/volume] in Serum by calculation 2.4 GM/DL 2.4 - 3.2 [facility] A/G RATIO 1.6 0.8 - 2.0 [facility] Calcium [Mass/volume] in Serum or Plasma 9.4 MG/DL 8.4 - 10.2 [facility] Bilirubin.total [Mass/volume] in Serum or Plasma 1.3 MG/DL 0.2 - 1.3 [facility] Alkaline phosphatase [Enzymatic activity/volume] in Serum or Plasma 209 U/L 38 - 126 H [facility] Aspartate aminotransferase [Enzymatic activity/volume] in Serum or Plasma 27 U/L 5 - 40 [facility] Alanine aminotransferase [Enzymatic activity/volume] in Seru m or Plasma 18 U/L 7 - 56 [facility] Anion gap 3 in Serum or Plasma 7.0 mmol/L 8.0 - 16.0 L [facility] AGE 80 yrs [facility] al NON-AA GFR 36 mL/min [facility] AMER GFR >60 [facility] Male GFR In terprentation [...] >32 mL/min Normal ID Date Data Source [id number] 05/19/2020 11:38:00 AM [facility] Name Value Range Interpretation Code Description Data Vivian rce(s) Supporting Document(s) CBC NO DIFF [facility] ital COMPLETE BLOOD COUNT Leukocytes [#/volume] in Blood by Automated count 10.4 10^3/uL 4.2 - 11.0 [facility] Erythrocytes [#/volume] in Blood by Automated count 4.83 10^6/uL 4. 20 - 5.40 [facility] Hemoglobin [Mass/volume] in Blood 14.8 g/dL 12.0 - 16.0 [facility] Hematocrit [Volume Fraction] of Blood by Automated count 44.9 % 3 7.0 - 47.0 [facility] Erythrocyte mean corpuscular volume [Entitic volume] by Auto mated count 93.0 fL 81.0 - 101 [facility] Erythrocyte mean corpuscular hemoglobin [Entitic mass] by Automated count 30.6 pg 27.0 - 34.0 [facility] Erythrocyte mean corpuscular hemoglobin concentration [Mass/volume] by Automated count 33.0 g/dL 31.0 - 36.0 [facility] Erythrocyte distribution width [Ratio] by Automated count 16.2 % 11.5 - 14.5 H [facility] Platelets [#/volume] in Blood by Automated count 195 10^3/uL 150 - 45 0 [facility] Platelet mean volume [Entitic volume] in Blood by Automated count 11.7 fL 7.4 - 10.4 H [facility] ID Date Data Source [id number] 05/19/2020 11:38:00 AM [facility] Name Value Range Interpretation Code Description Data Vivian rce(s) Supporting Document(s) Prothrombin time (PT) 29.9 SECONDS 11.0 - 15.5 [facility] INR in Platelet poor plasma by Coagulation assay 2.69 0.93 - 1. 23 H [facility] \\BLDo\\INR INTERPRETATION\\BLDx\\ Therapeutic range for Coumadin and related oral anticoagulants. - International Normalized Ratio (INR): 2.0 - 3.0 for Venous Thrombosis, Pulmonary Embolus, Tissue heart valves, Acute [place], Atrial Fibrillation, Valvular heart disease and recurrent Systemic Embolism. -International Normalized Ratio (INR): 2.5 - 3.5 for Mechanical Prosthetic valve. ID Date Data Source [id number] 05/12/2020 02:44:00 [place] [address] PROGRESS NOTENAME: ANNA Medina ROOM#: [id number] OF : 1940 MR#: [id number] DATE: 05/09/20 OF SERVICE: 05/12/2020The patient is [...] also pulled [facility] IV out. [facility]. I spoke to the ER doctor [facility].DD: Bolivar Sotomayor MD, PC 05/12/20 14:19DT: SSR 05/12/20 14:43DS: Bolivar Sotomayor MD, PC 05/19/20 09:33 1 Name Value Range Interpretation Code Description Data Vivian rce(s) Supporting Document(s) ID Date Data Source [id number] 05/11/2020 10:43:00 [place] [address] PROGRESS NOTENAME: ANNA Medina ROOM#: 108-1DATE OF : 1940 MR#: [id number] DATE: 05/09/20 OF SERVICE: 05/11/2020UBJECTIVE:This patient came [...] and is quite agitated.DD: Bolivar Sotomayor MD, 05/11/20 09:38DT: SSR 05/11/20 10:43DS: Bolivar Sotomayor MD, PC 05/19/20 09:33 1 [place] [address] PROGRESS NOTENAME: ANNA Medina ROOM#: [id number] OF : 1940 MR#: [id number] DATE: 05/09/20 2 Name Value Range Interpretation Code Description Data Vivian rce(s) Supporting Document(s) ID Date Data Source [id number] 05/07/2020 11:07:00 [place] [address] PROGRESS NOTENAME: ANNA BRUMFIELD#: 108-1DATE OF : 1940 MR#: [id number] DATE: 05/06/20 OF SERVICE: 05/07/2020SUBJECTIVE:This patient came [...] 0.05 mg daily po.DD: Bolivar Sotomayor MD, PC 05/07/20 09:47DT: SSR 05/07/20 11:07DS: Bolivar Sotomayor MD, PC 05/19/20 09:33 1 [place] [address] PROGRESS NOTENAME: ANNA Medina ROOM#: [id number] OF : 1940 MR#: [id number] DATE: 05/06/20 2 Name Value Range Interpretation Code Description Data Vivian rce(s) Supporting Document(s) ID Date Data Source [id number] 05/14/2020 11:19:00 [place] [address] PROGRESS NOTENAME: ANNA Medina ROOM#: 108-1DATE OF : 1940 MR#: [id number] DATE: 05/09/20 OF SERVICE: 05/14/20SUBJECTIVE: She was [...] slightly at 13.2, hemoglobin 15.1, hematocrit 45.1, [id number]. Sodium is 144, potassium 3.7, chloride 101, [...] resume her 3 mg a day. 1 [place] [address] PROGRESS NOTENAME: ANNA Medina ROOM#: 108-1DATE OF : 1940 MR#: [id number] DATE: 05/09/20 6. Noninsulin dependent diabetes type 2. Continue to monitor blood sugars. 7. Continue medications as ordered.DD: MARTHA Tobar 05/14/20 19:23DT: JAMEE 05/14/20 23:01DS: MARTHA Tobar 05/18/20 21:01 2 Name Value Range Interpretation Code Description Data Viivan rce(s) Supporting Document(s) ID Date Data Source [id number] 05/13/2020 11:05:00 [place] [address] PROGRESS NOTENAME: ANNA Medina ROOM#: 108-1DATE OF : 1940 MR#: [id number] DATE: 05/09/20 OF SERVICE: 05/13/20SUBJECTIVE: She was [...] MARTHA Tobar 05/13/20 20:59DT: DMZ 05/13/20 22:51DS: MARTHA Tobar 05/18/20 21:01 1 Name Value Range Interpretation Code Description Data Vivian rce(s) Supporting Document(s) ID Date Data Source [id number] 05/15/2020 07:09:00 [place] [address] DISCHARGE SUMMARYNAME: ANNA Medina ROOM#: 108-1DATE OF : 1940 MR#: [id number] PHYS: Bolivar Sotomayor MD, PC DATE: 05/09/20 [...] was started on aLasix drip, daily weights, 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 She had had a positive [...] , 1.8 on the , 1.9 on the1s, 2.1 on the . It remained stable. [...] demonstrated. Chest x-ray 2- view on the 3rd showed CHF, cardiomegaly, underlying COPD. Follow up chest x-ray showedimproving CHF. 1 [place] [address] DISCHARGE SUMMARYNAME: ANNA Medina ROOM#: 108-1DATE OF : 1940 MR#: [id number] PHYS: Bolivar Sotomayor MD, PC DATE: 05/09/20 DISCHARGED:HOSPITAL COURSE:The patient was admitted, placed on a Lasix drip, monitored. She continued to show paced rhythm. On xqr96ur, she had no chest pain. Ejection fraction [...] in her legs was better. On the 5th, she was very irritated. With a can [...] coli. She was on Doxycycline. When asked ifluise had any thoughts of suicide ideations or [...] [facility] Discussed with Dr. Sotomayor. She will follow up with him next week in the office ifcleared for discharge by psych. She states her breathing is excellent. It is at baseline. Vitals have been stable.Labs are improving. Chest x-ray is improving. Discussed with [facility], Dr. Garcia andsocial worker and the [...] insulin and fingersticks. 5. Hypertension, stable. [address] [place] [address] DISCHARGE SUMMARYNAME: ANNA Medina ROOM#: 108-1DATE OF : 1940 MR#: [id number] PHYS: Bolivar Sotomayor MD, PC DATE: 05/09/20 DISCHARGED: 6. Coronary artery disease. Follow up with Dr. Sotomayor. Ultimately schedule for cardiac catheterization. 7. History of atrial fibrillation, history of pacemaker. Continues on Coumadin. PT/INR is ordered. 8. UTI. Finish Doxycycline.Patient will be transferred to [facility] via ambulance.TRANSFER/DISCHARGE PLANS:1. Transfer to [facility].2. Follow up with Dr. Sotomayor on Monday.3. [...] 23. Tradjenta 5 mg p.o. daily [address] [place] [address] DISCHARGE SUMMARYNAME: ANNA Medina ROOM#: 108-1DATE OF : 1940 MR#: [id number] PHYS: Bolivar Sotomayor MD, PC DATE: 05/09/20 DISCHARGED:No diuretic at this time. BUN is still elevated at 40, creatinine is 1.3.Patient transferred in stable condition.DD: MARTHA Tobar 05/15/20 18:33DT: DMZ 05/15/20 18:39DS: MARTHA Tobar 05/18/20 21:01 4 Name Value Range Interpretation Code Description Data Vivain rce(s) Supporting Document(s) ID Date Data Source [id number] 05/15/2020 11:45:00 [place] [address] PHONE: [phone] FAX: [phone] Name .................. : ANNA Medina Acct Number.................. : [id number] ROOM. ................. : 108-1 MR Number ................... : [id number] Stay type ............. : I/P Discharge Date......... ... : Admit Date ......... : 05/09/20 Admit Phys .................... : MANUEL HERRMANN Date of ....... : 1940 Family Phys ................... : NAUN MTZ Phone .................. : [phone] Age ................................ : 80 Film# .................. .:[id number] Sex ................................. : F Unsigned transcriptions are preliminary reports and do not represent a medical or legal document CHEST 2 VIEWS [id number] COMPLETE:05/14/20 22:38 DLA 1688 (REASON FOR CHEST: [...] By Anselmo Bernstein M.D. , 05/15/20 11:45, [facility] Transcribe Initials: DZ , Transcribe Date: 05/15/20 00:57, Dictation Date: Copy for: 002 [facility] Copy for: 710 MED REC Page 1 of 1 Name Value Range Interpretation Code Description Data Vivian rce(s) Supporting Document(s) ID Date Data Source [id number] 05/15/2020 05:33:00 AM EST [facility] (Bolivar Sotomayor [...] (Bolivar Sotomayor MD) ID Date Data Source [id number] 05/15/2020 05:33:00 AM EST [facility] (Bolivar Sotomayor [...] (Bolivar Sotomayor MD) ID Date Data Source [id number] 05/15/2020 05:33:00 AM EST [facility] (Bolivar Sotomayor [...] Thrombosis, Pulmonary Embolus, Tissue heart valves, Acute [place], Atrial Fibrillation, Valvular heart disease and recurrent Systemic Embolism. -International Normalized Ratio (INR): 2 .5 - 3.5 for Mechanical Prosthetic valve. ID Date Data Source [id number] 05/15/2020 07:20:00 AM [facility] Name Value Range Interpretation Code Description Data [facility](s) Supporting Document(s) COMPREHENSIVE METABOLIC PANEL [facility] COMPREHENSIVE METABOLIC PANEL Sodium [Moles/volume] in Serum or Plasma 139 mEq/L 134 - 153 [facility] Potassium [Moles/volume] in Serum or Plasma 3.6 mEq/L 3.6 - 5.0 [facility] Chloride [Moles/volume] in Serum or Plasma 97 mEq/L 98 - 107 L [facility] Carbon dioxide, total [Moles/volume] in Serum or Plasma 35 MEQ/L 22 - 30 H [facility] Glucose [Mass/volume] in Serum or Plasma 145 MG/DL 65 - 110 H [facility] BUN 40 MG/DL 7 - 21 [facility] Creatinine [Mass/volume] in Serum or Plasma 1.3 MG/DL 0.7 - 1.5 [facility] BUN/CREAT 31 8 - 27 H [facility] Protein [Mass/volume] in Serum or Plasma 5.4 G/DL 6.3 - 8.2 L [facility] Albumin [Mass/volume] in Serum or Plasma 3.4 G/DL 3.9 - 5.0 L [facility] Globulin [Mass/volume] in Serum by calculation 2.0 GM/DL 2.4 - 3.2 L [facility] A/G RATIO 1.7 0.8 - 2.0 [facility] Calcium [Mass/volume] in Serum or Plasma 8.7 MG/DL 8.4 - 10.2 [facility] Bilirubin.total [Mass/volume] in Serum or Plasma 1.3 MG/DL 0.2 - 1.3 [facility] Alkaline phosphatase [Enzymatic activity/volume] in Serum or Plasma 182 U/L 38 - 126 H [facility] Aspartate aminotransferase [Enzymatic activity/volume] in Serum or Plasma 25 U/L 5 - 40 [facility] Alanine aminotransferase [Enzymatic activity/volume] in Seru m or Plasma 12 U/L 7 - 56 [facility] Anion gap 3 in Serum or Plasma 7.0 mmol/L 8.0 - 16.0 L [facility] AGE 80 yrs [facility] al NON-AA GFR 42 mL/min [facility] A[facility] AMER GFR >60 [facility] Male GFR In terprentation [...] >32 mL/min Normal ID Date Data Source [id number] 05/15/2020 06:58:00 AM EST [facility] Name Value Range Interpretation Code Description Data Vivian rce(s) Supporting Document(s) CBC W/AUTOMATED DIFF [facility] COMPLETE BLOOD COUNT Leukocytes [#/volume] in Blood by Automated count 6.8 10^3/uL 4.2 - 1 1.0 [facility] Erythrocytes [#/volume] in Blood by Automated count 4.84 10^6/uL 4. 20 - 5.40 [facility] Hemoglobin [Mass/volume] in Blood 15.0 g/dL 12.0 - 16.0 [facility] Hematocrit [Volume Fraction] of Blood by Automated count 44.4 % 3 7.0 - 47.0 [facility] Erythrocyte mean corpuscular volume [Entitic volume] by Auto mated count 91.7 fL 81.0 - 101 [facility] Erythrocyte mean corpuscular hemoglobin [Entitic mass] by Automated count 31.0 pg 27.0 - 34.0 [facility] Erythrocyte mean corpuscular hemoglobin concentration [Mass/volume] by Automated count 33.8 g/dL 31.0 - 36.0 [facility] Erythrocyte distribution width [Ratio] by Automated count 16.7 % 11.5 - 14.5 H [facility] Platelets [#/volume] in Blood by Automated count 166 10^3/uL 150 - 45 0 [facility] Platelet mean volume [Entitic volume] in Blood by Automated count 11.9 fL 7.4 - 10.4 H [facility] Neutrophils/100 leukocytes in Blood by Automated count 60.6 % 37. 0 - 80.0 [facility] Lymphocytes/100 leukocytes in Blood by Manual count 22.7 % 25.0 - 40.0 L [facility] Monocytes/100 leukocytes in Blood by Automated count 9.7 % 3.0 - 8.0 H [facility] Eosinophils/100 leukocytes in Blood by Automated count 6.2 % 0.0 - 7.0 [facility] Basophils/100 leukocytes in Blood by Automated count 0.4 % 0.0 - 2.5 [facility] %IG 0.4 % 0.0 - 0.[address] %NRBC 0.0 % 0.0 - 0.0 [facility] al Neutrophils [#/volume] in Blood by Automated count 4.10 10^3/uL 2.00 - 6.90 [facility] Lymphocytes [#/volume] in Blood by Automated count 1.54 10^3/uL 0.60 - 3.40 [facility] Monocytes [#/volume] in Blood by Automated count 0.66 10^3/uL 0.00 - 0.90 [facility] Eosinophils [#/volume] in Blood by Automated count 0.42 10^3/uL 0.00 - 0.70 [facility] Basophils [#/volume] in Blood by Automated count 0.03 10^3/uL 0.00 - 0.20 [facility] #IG 0.03 10^3/uL 0.00 - 0.10 [facility] #NRBC 0.00 10^3/uL 0.00 - 0.00 [facility] MANUAL DIFF NOT INDICATED [facility] RBC MORPH NOT INDICATED [facility] spital ID Date Data Source [id number] 05/15/2020 06:57:00 AM EST [facility] Name Value Range Interpretation Code Description Data Vivian rce(s) Supporting Document(s) Prothrombin time (PT) 23.7 SECONDS 11.0 - 15.5 [facility] INR in Platelet poor plasma by Coagulation assay 2.01 0.93 - 1. 23 H [facility] \\BLDo\\INR INTERPRETATION\\BLDx\\ Therapeutic range for Coumadin and related oral anticoagulants. - International Normalized Ratio (INR): 2.0 - 3.0 for Venous Thrombosis, Pulmonary Embolus, Tissue heart valves, Acute [place], Atrial Fibrillation, Valvular heart disease and recurrent Systemic Embolism. -International Normalized Ratio (INR): 2.5 - 3.5 for Mechanical Prosthetic valve. ID Date Data Source [id number] 05/14/2020 05:26:00 AM EST [facility] (Bolivar Sotomayor MD) Name Value Range Interpretation Code Description Data Vivian rce(s) Supporting Document(s) Laboratory test finding (navigational concept) Laboratory test result [facility] (Bolivar Sotomayor MD) COMPREHENSIVE METABOLIC PANEL Laboratory test finding (navigational concept) 3.7 meq/L 3.6-5.0 [facility] (Bolivar Sotomayor MD) Laboratory test finding (navigational [...] (Bolivar Sotomayor MD) ID Date Data Source [id number] 05/14/2020 05:26:00 AM EST [facility] (Bolivar Sotomayor [...] % 3.0-8.0 Above high normal [facility] (Bolivar Sootmayor MD) Laboratory test finding (navigational concept) 11.3 [...] Sotomayor MD ) ID Date Data Source [id number] 05/14/2020 05:26:00 AM EST [facility] (Bolivar Sotomayor MD) Name Value Range Interpretation Code Description Data Vivian rce(s) Supporting Document(s) Laboratory test finding (navigational concept) 1.82 0 .93-1.23 Above high normal [facility] (Bolivar Sotomayor MD) \\BLDo\\INR INTERPRETATION\\BLDx\\ Therapeutic range for Coumadin and related oral anticoagulants. -International Normalized Ratio (INR): 2 .0 - 3.0 for Venous Thrombosis, Pulmonary Embolus, Tissue heart valves, Acute [place], Atrial Fibrillation, Valvular heart disease and recurrent Systemic Embolism. -International Normalized Ratio (INR): 2 .5 - 3.5 for Mechanical Prosthetic valve. Laboratory test finding (navigational concept) 22.0 s 1 1.0-15.5 Above high normal [facility] (Bolivar Sotomayor MD) ID Date Data Source [id number] 05/14/2020 08:11:00 AM [facility] Name Value Range Interpretation Code Description Data Vivian e(s) Supporting Document(s) CBC W/AUTOMATED DIFF [facility] COMPLETE BLOOD COUNT Leukocytes [#/volume] in Blood by Automated count 13.2 10^3/uL 4.2 - 11.0 H [facility] Erythrocytes [#/volume] in Blood by Automated count 5.02 10^6/uL 4. 20 - 5.40 [facility] Hemoglobin [Mass/volume] in Blood 15.1 g/dL 12.0 - 16.0 [facility] Hematocrit [Volume Fraction] of Blood by Automated count 45.1 % 3 7.0 - 47.0 [facility] Erythrocyte mean corpuscular volume [Entitic volume] by Auto mated count 89.8 fL 81.0 - 101 [facility] Erythrocyte mean corpuscular hemoglobin [Entitic mass] by Automated count 30.1 pg 27.0 - 34.0 [facility] Erythrocyte mean corpuscular hemoglobin concentration [Mass/volume] by Automated count 33.5 g/dL 31.0 - 36.0 [facility] Erythrocyte distribution width [Ratio] by Automated count 16.4 % 11.5 - 14.5 H [facility] Platelets [#/volume] in Blood by Automated count 198 10^3/uL 150 - 45 0 [facility] Platelet mean volume [Entitic volume] in Blood by Automated count 12.2 fL 7.4 - 10.4 H [facility] Neutrophils/100 leukocytes in Blood by Automated count 77.3 % 37. 0 - 80.0 [facility] Lymphocytes/100 leukocytes in Blood by Manual count 11.3 % 25.0 - 40.0 L [facility] Monocytes/100 leukocytes in Blood by Automated count 8.9 % 3.0 - 8.0 H [facility] Eosinophils/100 leukocytes in Blood by Automated count 2.1 % 0.0 - 7.0 [facility] Basophils/100 leukocytes in Blood by Automated count 0.2 % 0.0 - 2.5 [facility] %IG 0.2 % 0.0 - 0.[address] [facility] %NRBC 0.0 % 0.0 - 0.0 [facility] al Neutrophils [#/volume] in Blood by Automated count 10.19 10^3/uL 2. 00 - 6.90 H [facility] Lymphocytes [#/volume] in Blood by Automated count 1.49 10^3/uL 0.60 - 3.40 [facility] Monocytes [#/volume] in Blood by Automated count 1.18 10^3/uL 0.00 - 0.90 H [facility] Eosinophils [#/volume] in Blood by Automated count 0.28 10^3/uL 0.00 - 0.70 [facility] Basophils [#/volume] in Blood by Automated count 0.03 10^3/uL 0.00 - 0.20 [facility] #IG 0.03 10^3/uL 0.00 - 0.10 [facility] #NRBC 0.00 10^3/uL 0.00 - 0.00 [facility] MANUAL DIFF SEE BELOW [facility] Segmented neutrophils/100 leukocytes in Blood by Manual count 85 % 37 - 80 H [facility] %LYMPH 9 % 25 - 40 L [facility] %MONO 5 % 3 - 8 [facility] %EOS 1 % 0 - 7 [facility] RBC MORPH SEE BELOW [facility] Anisocytosis [Presence] in Blood by Light microscopy 1+ MARITA L: NONE SEEN A [facility] Poikilocytosis [Presence] in Blood by Light microscopy 1+ NOR MAL: NONE SEEN A [facility] { SICKLE CELL (NORMAL: NONE SEEN ) Candi cells [Presence] in Blood by Light microscopy 1+ NORMAL: NONE SEEN A [facility] Acanthocytes [Presence] in Blood by Light microscopy 1+ MARITA L: NONE SEEN A [facility] Platelet adequacy [Presence] in Blood by Light microscopy NORMAL NORMAL: NORMAL [facility] COMMENT: ID Date Data Source [id number] 05/14/2020 07:47:00 AM EST [facility] Name Value Range Interpretation Code Description Data Vivian rce(s) Supporting Document(s) COMPREHENSIVE METABOLIC PANEL [facility] COMPREHENSIVE METABOLIC PANEL Sodium [Moles/volume] in Serum or Plasma 144 mEq/L 134 - 153 [facility] Potassium [Moles/volume] in Serum or Plasma 3.7 mEq/L 3.6 - 5.0 [facility] Chloride [Moles/volume] in Serum or Plasma 101 mEq/L 98 - 107 [facility] Carbon dioxide, total [Moles/volume] in Serum or Plasma 33 MEQ/L 22 - 30 H [facility] Glucose [Mass/volume] in Serum or Plasma 129 MG/DL 65 - 110 H [facility] BUN 46 MG/DL 7 - 21 H [facility] al Creatinine [Mass/volume] in Serum or Plasma 1.5 MG/DL 0.7 - 1.5 [facility] BUN/CREAT 31 8 - 27 H [facility] Protein [Mass/volume] in Serum or Plasma 5.5 G/DL 6.3 - 8.2 L [facility] Albumin [Mass/volume] in Serum or Plasma 3.5 G/DL 3.9 - 5.0 L [facility] Globulin [Mass/volume] in Serum by calculation 2.0 GM/DL 2.4 - 3.2 L [facility] A/G RATIO 1.8 0.8 - 2.0 [facility] Calcium [Mass/volume] in Serum or Plasma 9.0 MG/DL 8.4 - 10.2 [facility] Bilirubin.total [Mass/volume] in Serum or Plasma 1.7 MG/DL 0.2 - 1.3 H [facility] Alkaline phosphatase [Enzymatic activity/volume] in Serum or Plasma 197 U/L 38 - 126 H [facility] Aspartate aminotransferase [Enzymatic activity/volume] in Serum or Plasma 30 U/L 5 - 40 [facility] Alanine aminotransferase [Enzymatic activity/volume] in Seru m or Plasma 14 U/L 7 - 56 [facility] Anion gap 3 in Serum or Plasma 10.0 mmol/L 8.0 - 16.0 [facility] [address] [facility] 36 mL/min [facility] AFR AMER GFR >60 [facility] Male GFR In terprentation [...] >32 mL/min Normal ID Date Data Source [id number] 05/14/2020 07:06:00 AM [facility] Name Value Range Interpretation Code Description Data Vivian rce(s) Supporting Document(s) Prothrombin time (PT) 22.0 SECONDS 11.0 - 15.5 [facility] INR in Platelet poor plasma by Coagulation assay 1.82 0.93 - 1. 23 H [facility] \\BLDo\\INR INTERPRETATION\\BLDx\\ Therapeutic range for Coumadin and related oral anticoagulants. - International Normalized Ratio (INR): 2.0 - 3.0 for Venous Thrombosis, Pulmonary Embolus, Tissue heart valves, Acute [place], Atrial Fibrillation, Valvular heart disease and recurrent Systemic Embolism. -International Normalized Ratio (INR): 2.5 - 3.5 for Mechanical Prosthetic valve. ID Date Data Source [id number] 05/12/2020 11:48:00 [place] [address] PROGRESS NOTENAME: ANNA Medina ROOM#: [id number] OF : 1940 MR#: [id number] DATE: 05/09/20 OF SERVICE: 05/12/20SUBJECTIVE: She was [...] her levothyroxine, her potassium, her Lyrica. Today, jeannie came in. We allowed him to come [...] MARTHA Tobar 05/12/20 18:59DT: JAMEE 05/12/20 23:37DS: Joselin Leon, DERRICK ENGINEER 05/13/20 19:07 1 Name Value Range Interpretation Code Description Data Vivian rce(s) Supporting Document(s) ID Date Data Source [id number] 05/10/2020 09:33:00 [place] [address] PROGRESS NOTENAME: ANNA Medina ROOM#: [id number] OF : 1940 MR#: [id number] DATE: 05/09/20 OF SERVICE: 05/10/20SUBJECTIVE: She was [...] them. Blood pressure is 116/58. Pulse 60. [id number]. Temperature 97.8. O2 saturation is 96% on [...] negative. Urinalysis is clear.3. Pneumonia. Coverage with [facility] DuoNebs.4. Hypertension, stable.5. Diabetes. Continue to monitor blood sugars. Continue Levemir and coverage as needed.DD: MARTHA Tobar 05/10/20 20:18 1 [place] [address] PROGRESS NOTENAME: ANNA Medina ROOM#: [id number] OF : 1940 MR#: [id number] DATE: 05/09/20 : JAMEE 05/10/20 21:22DS: MARTHA Tobar 05/13/20 19:07 2 Name Value Range Interpretation Code Description Data Vivian rce(s) Supporting Document(s) ID Date Data Source [id number] 05/09/2020 11:55:[address] [place] [address] PROGRESS NOTENAME: ANNA Medina ROOM#: [id number] OF : 1940 MR#: [id number] DATE: 05/06/20 OF SERVICE: 05/09/20SUBJECTIVE: She was [...] rce(s) Supporting Document(s) ID Date Data Source [id number] 05/08/2020 11:55:00 [place] [address] PROGRESS NOTENAME: ANNA Medina ROOM#: [id number] OF : 1940 MR#: [id number] DATE: 05/06/20 OF SERVICE: 05/08/20SUBJECTIVE: She is [...] rce(s) Supporting Document(s) ID Date Data Source [id number] 05/06/2020 12:07:00 [place] [address] HISTORY AND PHYSICALNAME: ANNA Medina ROOM#: 108-1DATE OF : 1940 MR#: [id number] PHYS: Bolivar Sotomayor MD, PC DATE: 05/06/20CHIEF [...] of hypothyroidism. 8. History of gout. 1 [facility] [address] [place] [address] HISTORY AND PHYSICALNAME: ANNA Medina ROOM#: [id number] OF : 1940 MR#: [id number] PHYS: Bolivar Sotomayor MD, PC DATE: 05/06/20PAST SURGICAL HISTORY: 1. She has [...] goiter. Carotids 2+ without bruit. Jugular 2 [place] [address] HISTORY AND PHYSICALNAME: ANNA Medina ROOM#: [id number] OF : 1940 MR#: [id number] PHYS: Bolivar Sotomayor MD, PC DATE: 05/06/20venous [...] placed on a Lasix drip, daily weights, 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 Patient had a recent cardiac [...] rce(s) Supporting Document(s) ID Date Data Source [id number] 05/12/2020 06:28:00 PM EST [facility] (Bolivar Sotomayor [...] (Bolivar Sotomayor MD) ID Date Data Source [id number] 05/12/2020 06:28:00 PM EST [facility] (Bolivar Sotomayor [...] (Bolivar Sotomayor MD) ID Date Data Source [id number] 05/12/2020 06:28:00 PM EST [facility] (Bolivar Sotomayor [...] for Troponin T. ID Date Data Source [id number] 05/12/2020 06:28:00 PM EST [facility] (Bolivar Sotomayor MD) Name Value Range Interpretation Code Description Data Vivian rce(s) Supporting Document(s) Laboratory test finding (navigational concept) 4.93 10^6/uL 4.20-5.40 [facility] (Bolivar Sotomayor MD) Laboratory test finding (navigational concept) Laboratory test result [facility] (Boliavr Sotomayor MD) COMPLETE BLOOD COUNT Laboratory test [...] (Bolivar Sotomayor MD) ID Date Data Source [id number] 05/12/2020 06:28:00 PM EST [facility] (Bolivar Sotomayor MD) Name Value Range Interpretation Code Description Data Vivian rce(s) Supporting Document(s) Ammonia [Moles/volume] in Serum 74.0 ug/dL 18.7-86.9 [facility] (Bolivar Sotomayor MD) ID Date Data Source [id number] 05/12/2020 06:28:00 PM EST [facility] (Bolivar Sotomayor [...] Thrombosis, Pulmonary Embolus, Tissue heart valves, Acute [place], Atrial Fibrillation, Valvular heart disease and recurrent Systemic Embolism. -International Normalized Ratio (INR): 2 .5 - 3.5 for Mechanical Prosthetic valve. ID Date Data Source [id number] 05/12/2020 07:37:00 PM [facility] Value Range Interpretation Code Description Data Vivian rce(s) Supporting Document(s) BNP 6888 PG/ML 0 - 450 H [facility] ID Date Data Source [id number] 05/12/2020 07:32:00 PM [facility] Value Range Interpretation Code Description Data Vivian rce(s) Supporting Document(s) Thyroxine (T4) free index in Serum or Plasma by calculation 1.28 NG/DL 0.93 - 1.70 [facility] ID Date Data Source [id number] 05/12/2020 07:32:00 PM [facility] Value Range Interpretation Code Description Data Vivian rce(s) Supporting Document(s) Thyrotropin [Units/volume] in Serum or Plasma by Detec tion limit <= 0.05 mIU/L 4.47 uIU/mL 0.47 - 5.01 [facility] ID Date Data Source [id number] 05/12/2020 07:23:00 PM [facility] Value Range Interpretation Code Description Data Vivian rce(s) Supporting Document(s) Creatine kinase [Enzymatic activity/volume] in Serum or Plasma 2 16 U/L 30 - 170 H [facility] ID Date Data Source [id number] 05/12/2020 07:23:00 PM [facility] Value Range Interpretation Code Description Data Vivian rce(s) Supporting Document(s) C reactive protein [Mass/volume] in Serum or Plasma by High sensitivity method 7.31 MG/L 1.00 - 3.00 H [facility]/S HS-CRP CUT-OFF: RELATIVE RISK: <1.0 mg/L Low 1.0 - 3.0 mg/L Average >3.0 mg/L High Optimally, the average of HS-CRP results repeated two weeks apart should be used for risk assessment. ID Date Data Source [id number] 05/12/2020 07:23:00 PM EST [facility] Name Value Range Interpretation Code Description Data Vivian rce(s) Supporting Document(s) COMPREHENSIVE METABOLIC PANEL [facility] COMPREHENSIVE METABOLIC PANEL Sodium [Moles/volume] in Serum or Plasma 137 mEq/L 134 - 153 [facility] Potassium [Moles/volume] in Serum or Plasma 3.8 mEq/L 3.6 - 5.0 [facility] Chloride [Moles/volume] in Serum or Plasma 92 mEq/L 98 - 107 L [facility] Carbon dioxide, total [Moles/volume] in Serum or Plasma 29 MEQ/L 22 - 30 [facility] Glucose [Mass/volume] in Serum or Plasma 274 MG/DL 65 - 110 H [facility] BUN 45 MG/DL 7 - 21 H [facility] Creatinine [Mass/volume] in Serum or Plasma 1.2 MG/DL 0.7 - 1.5 [facility] BUN/CREAT 38 8 - 27 H [facility] Protein [Mass/volume] in Serum or Plasma 5.9 G/DL 6.3 - 8.2 L [facility] Albumin [Mass/volume] in Serum or Plasma 3.9 G/DL 3.9 - 5.0 [facility] Globulin [Mass/volume] in Serum by calculation 2.0 GM/DL 2.4 - 3.2 L [facility] A/G RATIO 2.0 0.8 - 2.0 [facility] Calcium [Mass/volume] in Serum or Plasma 9.0 MG/DL 8.4 - 10.2 [facility] Bilirubin.total [Mass/volume] in Serum or Plasma 2.5 MG/DL 0.2 - 1.3 H [facility] Alkaline phosphatase [Enzymatic activity/volume] in Serum or Plasma 214 U/L 38 - 126 H [facility] Aspartate aminotransferase [Enzymatic activity/volume] in Serum or Plasma 30 U/L 5 - 40 [facility] Alanine aminotransferase [Enzymatic activity/volume] in Seru m or Plasma 14 U/L 7 - 56 [facility] Anion gap 3 in Serum or Plasma 16.0 mmol/L 8.0 - 16.0 [facility] AGE 80 yrs [facility] NON-AA GFR 46 mL/min [facility] AFR AMER GFR >60 [facility] Male GFR In terprentation [...] >32 mL/min Normal ID Date Data Source [id number] 05/12/2020 07:21:00 PM [facility] Name Value Range Interpretation Code Description Data Vivian rce(s) Supporting Document(s) Magnesium [Mass/volume] in Serum or Plasma 2.1 MG/DL 1.7 - 2.2 [facility] ID Date Data Source [id number] 05/12/2020 07:20:00 PM [facility] Name Value Range Interpretation Code Description Data Vivian rce(s) Supporting Document(s) TROPONIN T <0.01 NG/ML 0.00 - 0.10 [facility] TROPONIN T0.1 ng/ml Recommended as the c linical threshold value forTroponin T. ID Date Data Source [id number] 05/12/2020 07:09:00 PM [facility] Name Value Range Interpretation Code Description Data Vivian rce(s) Supporting Document(s) CBC W/AUTOMATED DIFF [facility] COMPLETE BLOOD COUNT Leukocytes [#/volume] in Blood by Automated count 9.4 10^3/uL 4.2 - 1 1.0 [facility] Erythrocytes [#/volume] in Blood by Automated count 4.93 10^6/uL 4. 20 - 5.40 [facility] Hemoglobin [Mass/volume] in Blood 15.3 g/dL 12.0 - 16.0 [facility] Hematocrit [Volume Fraction] of Blood by Automated count 45.5 % 3 7.0 - 47.0 [facility] Erythrocyte mean corpuscular volume [Entitic volume] by Auto mated count 92.3 fL 81.0 - 101 [facility] Erythrocyte mean corpuscular hemoglobin [Entitic mass] by Automated count 31.0 pg 27.0 - 34.0 [facility] Erythrocyte mean corpuscular hemoglobin concentration [Mass/volume] by Automated count 33.6 g/dL 31.0 - 36.0 [facility] Erythrocyte distribution width [Ratio] by Automated count 16.5 % 11.5 - 14.5 H [facility] Platelets [#/volume] in Blood by Automated count 205 10^3/uL 150 - 45 0 [facility] Platelet mean volume [Entitic volume] in Blood by Automated count 12.0 fL 7.4 - 10.4 H [facility] Neutrophils/100 leukocytes in Blood by Automated count 73.4 % 37. 0 - 80.0 [facility] Lymphocytes/100 leukocytes in Blood by Manual count 15.7 % 25.0 - 40.0 L [facility] Monocytes/100 leukocytes in Blood by Automated count 9.9 % 3.0 - 8.0 H [facility] Eosinophils/100 leukocytes in Blood by Automated count 0.2 % 0.0 - 7.0 [facility] Basophils/100 leukocytes in Blood by Automated count 0.3 % 0.0 - 2.5 [facility] %IG 0.5 % 0.0 - 0.0 H [facility] al %NRBC 0.0 % 0.0 - 0.0 [facility] al Neutrophils [#/volume] in Blood by Automated count 6.85 10^3/uL 2.00 - 6.90 [facility] Lymphocytes [#/volume] in Blood by Automated count 1.47 10^3/uL 0.60 - 3.40 [facility] Monocytes [#/volume] in Blood by Automated count 0.93 10^3/uL 0.00 - 0.90 H [facility] Eosinophils [#/volume] in Blood by Automated count 0.02 10^3/uL 0.00 - 0.70 [facility] Basophils [#/volume] in Blood by Automated count 0.03 10^3/uL 0.00 - 0.20 [facility] #IG 0.05 10^3/uL 0.00 - 0.10 [facility] #NRBC 0.00 10^3/uL 0.00 - 0.00 [facility] MANUAL DIFF NOT INDICATED [facility] RBC MORPH NOT INDICATED [facility] ID Date Data Source [id number] 05/12/2020 07:11:00 PM [facility] Name Value Range Interpretation Code Description Data Vivian rce(s) Supporting Document(s) Ammonia [Mass/volume] in Plasma 74.0 UG/DL 18.7 - 86.9 [facility] ID Date Data Source [id number] 05/12/2020 07:09:00 PM [facility] Name Value Range Interpretation Code Description Data Vivian rce(s) Supporting Document(s) Prothrombin time (PT) 21.5 SECONDS 11.0 - 15.5 [facility] INR in Platelet poor plasma by Coagulation assay 1.77 0.93 - 1. 23 H [facility] \\BLDo\\INR INTERPRETATION\\BLDx\\ Therapeutic range for Coumadin and related oral anticoagulants. - International Normalized Ratio (INR): 2.0 - 3.0 for Venous Thrombosis, Pulmonary Embolus, Tissue heart valves, Acute [place], Atrial Fibrillation, Valvular heart disease and recurrent Systemic Embolism. -International Normalized Ratio (INR): 2.5 - 3.5 for Mechanical Prosthetic valve. ID Date Data Source [id number] 05/11/2020 09:25:00 AM [facility] [address] [place] [address] PHONE: [phone] FAX: [phone] Name .................. : ANNA Medina Acct Number.................. : [id number] ROOM. ................. : 108-1 Number ................... : [id number] Stay type ............. : I/P Discharge Date......... ... : Admit Date ......... : 05/09/20 Admit Phys .................... : MANUEL ALIZE Date of ....... : 1940 Family Phys ................... : NAUN MTZ Phone .................. : [phone] Age ................................ : 80 Film# .................. .:[id number] Sex ................................. : F Unsigned transcriptions are preliminary reports and do not represent a medical or legal document CHEST 2 VIEWS [id number] COMPLETE:05/10/20 88:88 1326 (REASON FOR CHEST: SHORTNESS [...] By Danish Ordonez MD , 05/11/20 09:25, KGG Transcribe Initials: MILLY , Transcribe Date: 05/10/20 08:36, Dictation Date: Copy for: 002 [facility] Copy for: 710 [facility] REC Page 1 of 1 Name Value Range Interpretation Code Description Data Vivian rce(s) Supporting Document(s) ID Date Data Source [id number] 05/11/2020 08:55:00 [place] [address] PHONE: [phone] FAX: [phone] Name .................. : ANNA Medina Acct Number.................. : [id number] ROOM. ................. : 108[facility] Number ................... : [id number] Stay type ............. : O/P Discharge Date......... ... : Admit Date ......... : 05/06/20 Admit Phys .................... : MANUEL ALIZE Date of ....... : 1940 Family Phys ................... : NAUN TMZ Phone .................. : [phone] Age ................................ : 80 Film# .................. .:[id number] Sex ................................. : F Unsigned transcriptions are preliminary reports and do not represent a medical or legal document CT THORAX W/O CONTRAST [id number] COMPLETE:05/07/20 11:20 JEFFREY 1201 (REASON FOR CHEST: [...] dose 629.4 mGycm. Page 1 of [address] [place] [address] PHONE: [phone] FAX: [phone] Name .................. : ANNA Medina Acct Number.................. : [id number] ROOM. ................. : 108-1 MR Number ................... : [id number] Stay type ............. : O/P Discharge Date......... ... : Admit Date ......... : 05/06/20 Admit Phys .................... : MANUEL MIR Date of ....... : 1940 Family Phys ................... : NAUN MTZ Phone .................. : [phone] Age ................................ : 80 Film# .................. .:[id number] Sex ................................. : F Unsigned transcriptions are preliminary reports and do not represent a medical or legal document CT THORAX W/O CONTRAST [id number] COMPLETE:05/07/20 11:20 JEFFREY 1201 (REASON FOR CHEST: CHF Electronically Reviewed and Signed By Philipp Davis MD , 05/11/20 08:55, MRA Transcribe Initials: SSR, Transcribe Date: 05/07/20 13:09, Dictation Date: Copy for: 002 [facility] Copy for: 710 [facility] REC Page 2 of 2 Name Value Range Interpretation Code Description Data Vivian rce(s) Supporting Document(s) ID Date Data Source [id number] 05/10/2020 01:30:00 PM EST [facility] (Bolivar Sotomayor [...] finding (navigational concept) 8 5-9 [facility] (Bolivar Sotomayor MD) {SOURCE: Random Void~NURSE [...] Void~NURSE COLLECTED? N ID Date Data Source [id number] 05/10/2020 02:12:00 PM EST [facility] Name Value Range Interpretation Code Description Data Vivian rce(s) Supporting Document(s) URINALYSIS [facility] URINALYSIS SOURCE Clean Catch [facility] ital COLOR yellow NORMAL: Yellow [facility] CLARITY clear NORMAL: Clear [facility] Specific gravity of Urine by Test strip 1.010 1.001 - 1.030 [facility] pH 8 5 - [facility] Glucose [Mass/volume] in Urine by Test strip NORM NORMAL: Negat [facility] Bilirubin.total [Presence] in Urine by Test strip NEG NORMAL: Negative [facility] Ketones [Presence] in Urine by Test strip NEG NORMAL: Negative [facility] Protein [Mass/volume] in Urine by Test strip NEG NORMAL: Negat [facility] Nitrite [Presence] in Urine by Test strip NEG NORMAL: Negative [facility] BLOOD NEG NORMAL: Negative [facility] Leukocyte esterase [Presence] in Urine by Test strip NEG MARITA L: Negative [facility] Urobilinogen [Mass/volume] in Urine by Test strip NOR less silvino n 1.0 mg/dL [facility] MICROSCOPIC Not Indicate [facility] ID Date Data Source [id number] 05/10/2020 01:20:00 PM EST [facility] (Bolivar Sotomayor MD) Name Value Range Interpretation Code Description Data Vivian rce(s) Supporting Document(s) Bacteria identified in Urine by Culture Laboratory test result [facility] (Bolivar Sotomayor MD) {SPECIMEN TYPE: CATH URINE ID Date Data Source [id number] 05/14/2020 04:11:00 PM EST [facility] Name Value Range Interpretation Code Description Data Vivian rce(s) Supporting Document(s) CULTURE URINE [facility] _CULTURE URINE_$$[id number]$$718010$$912830$$227558$$699249$$571092$$576275$$702565$$650164$$ 362286$$935300$$673598$$611066$$471894$$090754$$336524$$764108$$611495$$233584$$ 992478$$018835$$160189$$213087$$213636$$749217$$016750$$623809 -- Continued on next page --Patient: ANNA ALLEN E Order: [id number] Page 2Culture: CULTURE URINE Status: Final ==== -- Continued on next page --Patient: ANNA ALLEN E Order: [id number] Page 2Culture: CULTURE URINE Status: Prelim =====$$[id number]$$[id number] DATE/TIME: 05/14/2020 14:06Culture: CULTURE URINE Status: FinalIsolate [...] on 05/12/2020 23:36 ET Escherichia coliUrine Culture,Comprehensive: B5Egrhkstywzc coli Flag: APatient: ANNA Medina Order: [id number] Page 3Culture: CULTURE URINE Status: Final ISOLATE [...] S S . . . . . .94720-7Shefmfroax S S . . . . . .267-5Imipenem S S . . . . . .279-0Levofloxacin S S . . . . . .58870-4Falperumz S S . . . . . .6652-2Nitrofurantoin S S . . . . . .363-2Piperacillin/Tazobactam S S . . . . . .412-7Tetracycline S S . . . . . .496-0Tobramycin S S . . . . . .508-2Trimethoprim/Sulfa S S . . . . . 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 .[facility] ID Date Data Source [id number] 05/10/2020 06:19:00 AM EST [facility] (Bolivar Sotomayor [...] >32 mL/min Normal ID Date Data Source [id number] 05/10/2020 06:19:00 AM EST [facility] (Bolivar Sotomayor [...] finding (navigational concept) Laboratory test result [facility] (oBlivar Sotomayor MD) ID Date Data Source [id number] 05/10/2020 06:19:00 AM EST [facility] (Bolivar Sotomayor MD) Name Value Range Interpretation Code Description Data Vivian rce(s) Supporting Document(s) Laboratory test finding (navigational concept) 19.6 s 1 1.0-15.5 Above high normal [facility] (Bolivar Sotomayor MD) Laboratory test finding ([facility]) 1.58 0 .93-1.23 Above high normal [facility] (Bolivar Sotomayor MD) \\BLDo\\INR INTERPRETATION\\BLDx\\ Therapeutic range for Coumadin and related oral anticoagulants. -International Normalized Ratio (INR): 2 .0 - 3.0 for Venous Thrombosis, Pulmonary Embolus, Tissue heart valves, Acute [place], Atrial Fibrillation, Valvular heart disease and recurrent Systemic Embolism. -International Normalized Ratio (INR): 2 .5 - 3.5 for Mechanical Prosthetic valve. ID Date Data Source [id number] 05/10/2020 07:38:00 AM EST [facility] Name Value Range Interpretation Code Description Data Vivian rce(s) Supporting Document(s) COMPREHENSIVE METABOLIC PANEL [facility] COMPREHENSIVE METABOLIC PANEL Sodium [Moles/volume] in Serum or Plasma 138 mEq/L 134 - 153 [facility] Potassium [Moles/volume] in Serum or Plasma 3.8 mEq/L 3.6 - 5.0 [facility] Chloride [Moles/volume] in Serum or Plasma 93 mEq/L 98 - 107 L [facility] Carbon dioxide, total [Moles/volume] in Serum or Plasma 38 MEQ/L 22 - 30 H [facility] Glucose [Mass/volume] in Serum or Plasma 168 MG/DL 65 - 110 H [facility] BUN 34 MG/DL 7 - [address] [facility] Creatinine [Mass/volume] in Serum or Plasma 1.1 MG/DL 0.7 - 1.5 [facility] BUN/CREAT 31 8 - [address] [facility] [facility] Protein [Mass/volume] in Serum or Plasma 5.8 G/DL 6.3 - 8.2 L [facility] Albumin [Mass/volume] in Serum or Plasma 3.8 G/DL 3.9 - 5.0 L [facility] Globulin [Mass/volume] in Serum by calculation 2.0 GM/DL 2.4 - 3.2 L [facility] A/G RATIO 1.9 0.8 - 2.0 [facility] al Calcium [Mass/volume] in Serum or Plasma 9.2 MG/DL 8.4 - 10.2 [facility] Bilirubin.total [Mass/volume] in Serum or Plasma 1.2 MG/DL 0.2 - 1.3 [facility] Alkaline phosphatase [Enzymatic activity/volume] in Serum or Plasma 224 U/L 38 - 126 H [facility] Aspartate aminotransferase [Enzymatic activity/volume] in Serum or Plasma 16 U/L 5 - 40 [facility] Alanine aminotransferase [Enzymatic activity/volume] in Seru m or Plasma 10 U/L 7 - 56 [facility] Anion gap 3 in Serum or Plasma 7.0 mmol/L 8.0 - 16.0 L [facility] AGE 80 yrs [facility] NON-AA GFR 51 mL/min [facility] AFR AMER GFR >60 [facility] Male GFR In terprentation [...] >32 mL/min Normal ID Date Data Source [id number] 05/10/2020 07:25:00 AM EST [facility] Name Value Range Interpretation Code Description Data Vivian rce(s) Supporting Document(s) CBC W/AUTOMATED DIFF [facility] COMPLETE BLOOD COUNT Leukocytes [#/volume] in Blood by Automated count 13.1 10^3/uL 4.2 - 11.0 H [facility] Erythrocytes [#/volume] in Blood by Automated count 4.51 10^6/uL 4. 20 - 5.40 [facility] Hemoglobin [Mass/volume] in Blood 13.8 g/dL 12.0 - 16.0 [facility] Hematocrit [Volume Fraction] of Blood by Automated count 41.0 % 3 7.0 - 47.0 [facility] Erythrocyte mean corpuscular volume [Entitic volume] by Auto mated count 90.9 fL 81.0 - 101 [facility] Erythrocyte mean corpuscular hemoglobin [Entitic mass] by Automated count 30.6 pg 27.0 - 34.0 [facility] Erythrocyte mean corpuscular hemoglobin concentration [Mass/volume] by Automated count 33.7 g/dL 31.0 - 36.0 [facility] Erythrocyte distribution width [Ratio] by Automated count 16.0 % 11.5 - 14.5 H [facility] Platelets [#/volume] in Blood by Automated count 183 10^3/uL 150 - 45 0 [facility] Platelet mean volume [Entitic volume] in Blood by Automated count 11.9 fL 7.4 - 10.4 H [facility] Neutrophils/100 leukocytes in Blood by Automated count 84.9 % 37. 0 - 80.0 H [facility] Lymphocytes/100 leukocytes in Blood by Manual count 7.8 % 25.0 - 40.0 L [facility] Monocytes/100 leukocytes in Blood by Automated count 6.6 % 3.0 - 8.0 [facility] Eosinophils/100 leukocytes in Blood by Automated count 0.1 % 0.0 - 7.0 [facility] Basophils/100 leukocytes in Blood by Automated count 0.1 % 0.0 - 2.5 [facility] %IG 0.5 % 0.0 - 0.[address] %NRBC 0.0 % 0.0 - 0.0 [facility] al Neutrophils [#/volume] in Blood by Automated count 11.15 10^3/uL 2. 00 - 6.90 H [facility] Lymphocytes [#/volume] in Blood by Automated count 1.03 10^3/uL 0.60 - 3.40 [facility] Monocytes [#/volume] in Blood by Automated count 0.87 10^3/uL 0.00 - 0.90 [facility] Eosinophils [#/volume] in Blood by Automated count 0.01 10^3/uL 0.00 - 0.70 [facility] Basophils [#/volume] in Blood by Automated count 0.01 10^3/uL 0.00 - 0.20 [facility] #IG 0.06 10^3/uL 0.00 - 0.10 [facility] #NRBC 0.00 10^3/uL 0.00 - 0.00 [facility] MANUAL DIFF NOT INDICATED [facility] RBC MORPH NOT INDICATED [facility] sp[facility] ID Date Data Source [id number] 05/10/2020 07:24:00 AM [facility] Name Value Range Interpretation Code Description Data Vivian rce(s) Supporting Document(s) Prothrombin time (PT) 19.6 SECONDS 11.0 - 15.5 H [facility] INR in Platelet poor plasma by Coagulation assay 1.58 0.93 - 1. 23 H [facility] \\BLDo\\INR INTERPRETATION\\BLDx\\ Therapeutic range for Coumadin and related oral anticoagulants. - International Normalized Ratio (INR): 2.0 - 3.0 for Venous Thrombosis, Pulmonary Embolus, Tissue heart valves, Acute [place], Atrial Fibrillation, Valvular heart disease and recurrent Systemic Embolism. -International Normalized Ratio (INR): 2.5 - 3.5 for Mechanical Prosthetic valve. ID Date Data Source [id number] 05/10/2020 12:08:00 [place] [address] ---------NAME--------- NUMBER SEX AGE ADMIT DISC. XRAY# F/C TYPE ANNA Medina [id number] F 80 05/06/20 [id number] MB4 O/P DATE OF : 1940 M/R# [id number] #: [id number] 108-1 LOCATION: EMERGENCY DEPT TRANSCRIBED: 05/10/[address] HEAD W/O CONTRAST [id number] COMPLETED:05/09/20 22:51 KJE 1328 {REASON FOR PROCEDURE :ALTERED MENTAL STATUS PHYSICIAN: MANUEL LEON ======== R A D I O L O G Y R E P O R T PATIENT HISTORY:ALTERED MENTAL STATUS ACC DLP- 759.1mGy*cmPT HX OF HYSTERECTOMY. VERIFIED 2 IDENTIFIERS. Exam has been sent to [facility] Radiology - If further informationis needed, the number is . Report will be faxed to ED and/or Xray.KJE / BRAIN (DICOM Hx)EXAM: CT Head Without IV contrast.CLINICAL HISTORY:ALTERED MENTAL STATUS ACC DLP- 759.1mGy*cm PT HX OFHYSTERECTOMY. VERIFIED 2 IDENTIFIERS. Exam has been sent to [facility] Radiology - If further information is needed, [...] rce(s) Supporting Document(s) ID Date Data Source [id number] 05/09/2020 11:34:00 AM EST [facility] (Bolivar Sotomayor [...] N~STAT READ PLEASE ID Date Data Source [id number] 05/09/2020 12:12:00 PM [facility] Name Value Range Interpretation Code Description Data Vivian rce(s) Supporting Document(s) Glucose [Mass/volume] in Serum or Plasma 517 MG/DL 65 - 110 [facility] CALL/ READ BACK CARLY DOLAN RN [facility] BY: L[facility]Y [facility]/TIME 05.09.201210 [facility] ital ID Date Data Source [id number] 05/09/2020 06:28:00 AM EST [facility] (Bolivar Sotomayor [...] Thrombosis, Pulmonary Embolus, Tissue heart valves, Acute [place] Atrial Fibrillation, Valvular heart disease and recurrent Systemic Embolism. -International Normalized Ratio (INR): 2 .5 - 3.5 for Mechanical Prosthetic valve. ID Date Data Source [id number] 05/09/2020 06:28:00 AM EST [facility] (Bolivar Sotomayor [...] % 3-8 Below low normal [facility] (Bolivar Sotomayor MD) Laboratory test finding (navigational concept) Laboratory test result [facility] (Bolivar Sotomayor MD) Laboratory test finding (navigational concept) Laboratory test result [facility] (Bolivar Sotomayor MD) COMMENT: Laboratory test finding (navigational concept) Laboratory test r esult Abnormal (applies to non-numeric results) [facility] (Bolivar Sotomayor MD ) { SICKLE CELL (NORMAL: NONE SEEN ) ID Date Data Source [id number] 05/09/2020 06:28:00 AM EST [facility] (Bolivar Sotomayor [...] 91 meq/L 98-107 Below low normal [facility] (Boilvar Sotomayor MD) Laboratory test [...] >32 mL/min Normal ID Date Data Source [id number] 05/09/2020 08:11:00 AM EST [facility] Name Value Range Interpretation Code Description Data Vivian rce(s) Supporting Document(s) CBC W/AUTOMATED DIFF [facility] COMPLETE BLOOD COUNT Leukocytes [#/volume] in Blood by Automated count 8.3 10^3/uL 4.2 - 1 1.0 [facility] Erythrocytes [#/volume] in Blood by Automated count 4.52 10^6/uL 4. 20 - 5.40 [facility] Hemoglobin [Mass/volume] in Blood 13.8 g/dL 12.0 - 16.0 [facility] Hematocrit [Volume Fraction] of Blood by Automated count 41.6 % 3 7.0 - 47.0 [facility] Erythrocyte mean corpuscular volume [Entitic volume] by Auto mated count 92.0 fL 81.0 - 101 [facility] Erythrocyte mean corpuscular hemoglobin [Entitic mass] by Automated count 30.5 pg 27.0 - 34.0 [facility] Erythrocyte mean corpuscular hemoglobin concentration [Mass/volume] by Automated count 33.2 g/dL 31.0 - 36.0 [facility] Erythrocyte distribution width [Ratio] by Automated count 16.1 % 11.5 - 14.5 H [facility] Platelets [#/volume] in Blood by Automated count 173 10^3/uL 150 - 45 0 [facility] Platelet mean volume [Entitic volume] in Blood by Automated count 12.7 fL 7.4 - 10.4 H [facility] Neutrophils/100 leukocytes in Blood by Automated count 84.4 % 37. 0 - 80.0 H [facility] Lymphocytes/100 leukocytes in Blood by Manual count 11.0 % 25.0 - 40.0 L [facility] Monocytes/100 leukocytes in Blood by Automated count 2.0 % 3.0 - 8.0 L [facility] Eosinophils/100 leukocytes in Blood by Automated count 2.3 % 0.0 - 7.0 [facility] Basophils/100 leukocytes in Blood by Automated count 0.1 % 0.0 - 2.5 [facility] %IG 0.2 % 0.0 - 0.0 H [facility] %NRBC 0.0 % 0.0 - 0.0 [facility] al Neutrophils [#/volume] in Blood by Automated count 7.01 10^3/uL 2.00 - 6.90 H [facility] Lymphocytes [#/volume] in Blood by Automated count 0.91 10^3/uL 0.60 - 3.40 [facility] Monocytes [#/volume] in Blood by Automated count 0.17 10^3/uL 0.00 - 0.90 [facility] Eosinophils [#/volume] in Blood by Automated count 0.19 10^3/uL 0.00 - 0.70 [facility] Basophils [#/volume] in Blood by Automated count 0.01 10^3/uL 0.00 - 0.20 [facility] #IG 0.02 10^3/uL 0.00 - 0.10 [facility] #NRBC 0.00 10^3/uL 0.00 - 0.00 [facility] MANUAL DIFF SEE BELOW [facility] ital Segmented neutrophils/100 leukocytes in Blood by Manual count 82 % 37 - 80 H [facility] %LYMPH 16 % 25 - 40 L [facility] %MONO 2 % 3 - 8 L [facility] RBC MORPH [facility] BELOW [facility] Poikilocytosis [Presence] in Blood by Light microscopy 1+ NOR MAL: NONE SEEN A [facility] { SICKLE CELL (NORMAL: NONE SEEN ) Platelet adequacy [Presence] in Blood by Light microscopy NORMAL NORMAL: NORMAL [facility] COMMENT: ID Date Data Source [id number] 05/09/2020 07:56:00 AM EST [facility] Name Value Range Interpretation Code Description Data Vivian rce(s) Supporting Document(s) COMPREHENSIVE METABOLIC PANEL [facility] COMPREHENSIVE METABOLIC PANEL Sodium [Moles/volume] in Serum or Plasma 137 mEq/L 134 - 153 [facility] Potassium [Moles/volume] in Serum or Plasma 4.1 mEq/L 3.6 - 5.0 [facility] Chloride [Moles/volume] in Serum or Plasma 91 mEq/L 98 - 107 L [facility] Carbon dioxide, total [Moles/volume] in Serum or Plasma 39 MEQ/L 22 - 30 H [facility] Glucose [Mass/volume] in Serum or Plasma 348 MG/DL 65 - 110 H [facility] BUN 28 MG/DL 7 - [address] [facility] Creatinine [Mass/volume] in Serum or Plasma 1.2 MG/DL 0.7 - 1.5 [facility] BUN/CREAT 23 8 - 27 [facility] al Protein [Mass/volume] in Serum or Plasma 5.9 G/DL 6.3 - 8.2 L [facility] Albumin [Mass/volume] in Serum or Plasma 3.9 G/DL 3.9 - 5.0 [facility] Globulin [Mass/volume] in Serum by calculation 2.0 GM/DL 2.4 - 3.2 L [facility] A/G RATIO 2.0 0.8 - 2.0 [facility] Calcium [Mass/volume] in Serum or Plasma 9.0 MG/DL 8.4 - 10.2 [facility] Bilirubin.total [Mass/volume] in Serum or Plasma 1.4 MG/DL 0.2 - 1.3 H [facility] Alkaline phosphatase [Enzymatic activity/volume] in Serum or Plasma 261 U/L 38 - 126 H [facility] Aspartate aminotransferase [Enzymatic activity/volume] in Serum or Plasma 19 U/L 5 - 40 [facility] Alanine aminotransferase [Enzymatic activity/volume] in Seru m or Plasma 12 U/L 7 - 56 [facility] Anion gap 3 in Serum or Plasma 7.0 mmol/L 8.0 - 16.0 L [facility] AGE 80 yrs [facility] al NON-AA GFR 46 mL/min [facility] AFR AMER GFR >60 [facility] Male GFR In terprentation [...] >32 mL/min Normal ID Date Data Source [id number] 05/09/2020 07:38:00 AM EST [facility] Name Value Range Interpretation Code Description Data Vivian rce(s) Supporting Document(s) Prothrombin time (PT) 20.1 SECONDS 11.0 - 15.5 [facility] INR in Platelet poor plasma by Coagulation assay 1.63 0.93 - 1. 23 H [facility] aPTT in Blood by Coagulation assay 40.2 SECONDS 24.8 - 36.7 H [facility] \\BLDo\\INR INTERPRETATION\\BLDx\\ Therapeutic range for Coumadin and related oral anticoagulants. - International Normalized Ratio (INR): 2.0 - 3.0 for Venous Thrombosis, Pulmonary Embolus, Tissue heart valves, Acute [place] Atrial Fibrillation, Valvular heart disease and recurrent Systemic Embolism. - International Normalized Ratio (INR): 2.5 - 3.5 for Mechanical Prosthetic valve. ID Date Data Source [id number] 05/08/2020 12:50:00 PM EST [facility] (Bolivar Sotomayor [...] (Bolivar Sotomayor MD) ID Date Data Source [id number] 05/08/2020 01:13:00 PM EST [facility] Name Value Range Interpretation Code Description Data Vivian rce(s) Supporting Document(s) ANCA TEST POSITIVE A [facility] FiO2 2 LPM3 [facility] SITE RADIAL RT [facility] pH of Arterial blood 7.47 7.34 - 7.44 H [facility] Carbon dioxide [Partial pressure] in Blood 51.4 mm/HG 32.0 - 42.0 H [facility] Oxygen [Partial pressure] in Blood 98.3 mm/HG 75.0 - 100 [facility] Bicarbonate [Moles/volume] in Blood 36.2 meq/L 20.0 - 24.0 H [facility] TCO2 37.8 meq/L 21.0 - 25.0 H [facility] Base excess in Blood by calculation 10.7 -2.0 - 2.0 H [facility] O2 SAT 98.2 % 95.0 - 98.0 H [facility] ID Date Data Source [id number] 05/08/2020 06:17:00 AM EST [facility] (Bolivar Sotomayor MD) Name Value Range Interpretation Code Description Data Vivian rce(s) Supporting Document(s) Natriuretic peptide.B prohormone N-Terminal [Mass/volu me] in Serum or Plasma 5359 pg/mL 0-450 Above high normal [facility] (Bolivar Sotomayor MD) Magnesium [Mass/volume] in Serum or Plasma 1.9 mg/dL 1.7-2.2 [facility] (Bolivar Sotomayor MD) ID Date Data Source [id number] 05/08/2020 06:17:00 AM EST [facility] (Bolivar Sotomayor [...] >32 mL/min Normal ID Date Data Source [id number] 05/08/2020 06:17:00 AM EST [facility] (Bolivar Sotomayor [...] Thrombosis, Pulmonary Embolus, Tissue heart valves, Acute [place] Atrial Fibrillation, Valvular heart disease and recurrent Systemic Embolism. -International Normalized Ratio (INR): 2 .5 - 3.5 for Mechanical Prosthetic valve. ID Date Data Source [id number] 05/08/2020 06:17:00 AM EST [facility] (Bolivar Sotomayor [...] (Bolivar Sotomayor MD) ID Date Data Source [id number] 05/08/2020 07:21:00 AM EST [facility] Name Value Range Interpretation Code Description Data Vivian rce(s) Supporting Document(s) COMPREHENSIVE METABOLIC PANEL [facility] COMPREHENSIVE METABOLIC PANEL Sodium [Moles/volume] in Serum or Plasma 142 mEq/L 134 - 153 [facility] Potassium [Moles/volume] in Serum or Plasma 3.4 mEq/L 3.6 - 5.0 L [facility] Chloride [Moles/volume] in Serum or Plasma 96 mEq/L 98 - 107 L [facility] Carbon dioxide, total [Moles/volume] in Serum or Plasma 43 MEQ/L 22 - 30 HH [facility] CALL/ READ BACK CARLY JOHNSON RN [facility] BY: [facility]/TIME 05.08.20719 [facility] Glucose [Mass/volume] in Serum or Plasma 130 MG/DL 65 - 110 H [facility] BUN 21 MG/DL 7 - 21 [facility] Creatinine [Mass/volume] in Serum or Plasma 1.2 MG/DL 0.7 - 1.5 [facility] BUN/CREAT 18 8 - 27 [facility] Protein [Mass/volume] in Serum or Plasma 5.5 G/DL 6.3 - 8.2 L [facility] Albumin [Mass/volume] in Serum or Plasma 3.7 G/DL 3.9 - 5.0 L [facility] Globulin [Mass/volume] in Serum by calculation 1.8 GM/DL 2.4 - 3.2 L [facility] A/G RATIO 2.1 0.8 - 2.0 [facility] Calcium [Mass/volume] in Serum or Plasma 8.8 MG/DL 8.4 - 10.2 [facility] Bilirubin.total [Mass/volume] in Serum or Plasma 1.2 MG/DL 0.2 - 1.3 [facility] Alkaline phosphatase [Enzymatic activity/volume] in Serum or Plasma 238 U/L 38 - 126 H [facility] Aspartate aminotransferase [Enzymatic activity/volume] in Serum or Plasma 20 U/L 5 - 40 [facility] Alanine aminotransferase [Enzymatic activity/volume] in Seru m or Plasma 11 U/L 7 - 56 [facility] Anion gap 3 in Serum or Plasma 3.0 mmol/L 8.0 - 16.0 L [facility] AGE [address] [facility] NON-AA GFR 46 mL/min [facility] AFR AMER GFR >60 [facility] Male GFR In terprentation [...] >32 mL/min Normal ID Date Data Source [id number] 05/08/2020 07:17:00 AM [facility] Name Value Range Interpretation Code Description Data Vivian rce(s) Supporting Document(s) Magnesium [Mass/volume] in Serum or Plasma 1.9 MG/DL 1.7 - 2.2 [facility] ID Date Data Source [id number] 05/08/2020 07:14:00 AM [facility] Name Value Range Interpretation Code Description Data Vivian rce(s) Supporting Document(s) BNP 5359 PG/ML 0 - 450 [facility] ID Date Data Source [id number] 05/08/2020 07:04:00 AM [facility] Name Value Range Interpretation Code Description Data Vivian rce(s) Supporting Document(s) CBC W/AUTOMATED DIFF [facility] COMPLETE BLOOD COUNT Leukocytes [#/volume] in Blood by Automated count 6.9 10^3/uL 4.2 - 1 1.0 [facility] Erythrocytes [#/volume] in Blood by Automated count 4.20 10^6/uL 4. 20 - 5.40 [facility] Hemoglobin [Mass/volume] in Blood 12.9 g/dL 12.0 - 16.0 [facility] Hematocrit [Volume Fraction] of Blood by Automated count 39.3 % 3 7.0 - 47.0 [facility] Erythrocyte mean corpuscular volume [Entitic volume] by Auto mated count 93.6 fL 81.0 - 101 [facility] Erythrocyte mean corpuscular hemoglobin [Entitic mass] by Automated count 30.7 pg 27.0 - 34.0 [facility] Erythrocyte mean corpuscular hemoglobin concentration [Mass/volume] by Automated count 32.8 g/dL 31.0 - 36.0 [facility] Erythrocyte distribution width [Ratio] by Automated count 16.5 % 11.5 - 14.5 H [facility] Platelets [#/volume] in Blood by Automated count 155 10^3/uL 150 - 45 0 [facility] Platelet mean volume [Entitic volume] in Blood by Automated count 12.6 fL 7.4 - 10.4 H [facility] Neutrophils/100 leukocytes in Blood by Automated count 69.2 % 37. 0 - 80.0 [facility] Lymphocytes/100 leukocytes in Blood by Manual count 16.9 % 25.0 - 40.0 L [facility] Monocytes/100 leukocytes in Blood by Automated count 10.2 % 3.0 - 8.0 H [facility] Eosinophils/100 leukocytes in Blood by Automated count 3.2 % 0.0 - 7.0 [facility] Basophils/100 leukocytes in Blood by Automated count 0.4 % 0.0 - 2.5 [facility] %IG 0.1 % 0.0 - 0.[address] [facility] %NRBC 0.0 % 0.0 - 0.0 [facility] Neutrophils [#/volume] in Blood by Automated count 4.74 10^3/uL 2.00 - 6.90 [facility] Lymphocytes [#/volume] in Blood by Automated count 1.16 10^3/uL 0.60 - 3.40 [facility] Monocytes [#/volume] in Blood by Automated count 0.70 10^3/uL 0.00 - 0.90 [facility] Eosinophils [#/volume] in Blood by Automated count 0.22 10^3/uL 0.00 - 0.70 [facility] Basophils [#/volume] in Blood by Automated count 0.03 10^3/uL 0.00 - 0.20 [facility] #IG 0.01 10^3/uL 0.00 - 0.10 [facility] #NRBC 0.00 10^3/uL 0.00 - 0.00 [facility] MANUAL DIFF NOT INDICATED [facility] RBC MORPH NOT INDICATED [facility] ID Date Data Source [id number] 05/08/2020 07:03:00 AM [facility] Name Value Range Interpretation Code Description Data Vivian rce(s) Supporting Document(s) Prothrombin time (PT) 23.1 SECONDS 11.0 - 15.5 H [facility] INR in Platelet poor plasma by Coagulation assay 1.94 0.93 - 1. 23 H [facility] aPTT in Blood by Coagulation assay 40.9 SECONDS 24.8 - 36.7 H [facility] \\BLDo\\INR INTERPRETATION\\BLDx\\ Therapeutic range for Coumadin and related oral anticoagulants. - International Normalized Ratio (INR): 2.0 - 3.0 for Venous Thrombosis, Pulmonary Embolus, Tissue heart valves, Acute [place] Atrial Fibrillation, Valvular heart disease and recurrent Systemic Embolism. - International Normalized Ratio (INR): 2.5 - 3.5 for Mechanical Prosthetic valve. ID Date Data Source [id number] 05/07/2020 01:28:00 PM [facility] [address] [place] [address] RESPIRATORY CARE REPORT ==== ---------NAME------- NUMBER SEX AGE ADMIT DISC. XRAY# F/C BRENNON Medina [id number] F 80 05/06/20 [id number] O/P DATE OF : 1940 M/R# [id number] #: [id number] LOCATION: EMERGENCY DEPT EKG 14609 COMP LETE:05/07/20 07:25 EWW [id number] PHYSICIAN: MANUEL LEON Name Value Range Interpretation Code Description Data Vivian rce(s) Supporting Document(s) ID Date Data Source [id number] 05/07/2020 01:27:00 [place] [address] RESPIRATORY CARE REPORT ==== ---------NAME------- NUMBER SEX AGE ADMIT DISC. XRAY# F/C TYPERICLEMENCIA JOY Medina [id number] F 80 05/06/20 [id number] MB4 O/P DATE OF : 1940 M/R# [id number] PH#: [phone] 108-1 LOCATION: [place] [address] COMP LETE:05/07/20 02:18 T 93690 PHYSICIAN: MANUEL MACIAS Name Value Range Interpretation Code Description Data Vivian rce(s) Supporting Document(s) ID Date Data Source [id number] 05/07/2020 09:31:00 [place] [address] PHONE: [phone] FAX: [phone] Name .................. : ANNA Medina Acct Number.................. : [id number] ROOM. ................. : [id number] Number ................... : [id number] Stay type ............. : O/P Discharge Date......... ... : Admit Date ......... : 05/06/20 Admit Phys .................... : MANUEL HERRMANN Date of ....... : 1940 Family Phys ................... : NAUN MTZ Phone ..... ............. : [phone] Age ................................ : 80 Film# .................. .:[id number] Sex ................................. : F Unsigned t ranscriptions are preliminary reports and do not represent a medical or legal document CHEST PORTABLE [id number] COMPLETE:05/06/20 17:06 [facility] 1159 Reason(s): Chest Pain [...] By Anselmo Bernstein M.D. , 05/07/20 09:31, [facility] Transcribe Initials: MILLY , Transcribe Date: 05/06/20 22:18, Dictation Date: Copy for: NAUN HARTLEY via fax Copy for: EMERGENCY DEPT via mode Copy for: [facility] REC Page 1 of 1 Name Value Range Interpretation Code Description Data Vivian rce(s) Supporting Document(s) ID Date Data Source [id number] 05/06/2020 04:16:00 PM EST [facility] 1 OrderSheet [facility] Emergency Department [address] [place] [address] Phone #: ext- [phone] 05/06/2020 16:15 Patient: JOY DENT Sex: F : 1940 Age: 80yWEIGHT:94.3 kg (S) HEIGHT:61 inches (S) BMI:39.3ALLERGIES: Aloe, PCN, PenicillinsCHIEF COMPLAINT: weakness, dizzinessDIAGNOSIS: Dizziness, Congestive heart failureLAB ORDERSOrder Description Priority Entered Acknowledged InitialedCBC w Diff STAT 16:26 05/06/2020 16:53 Gilberto Castañeda Victoria Jennifer R.N. ;CMP STAT 16:26 05/06/2020 16:53 Gilberto Castañeda Victoria Jennifer R.N. ;Lipase STAT 16:26 05/06/2020 16:53 Gilberto Castañeda Victoria Jennifer R.N. ;Troponin-T STAT 16:26 05/06/2020 16:53 Gilberto Castañeda Victoria Je nnifer R.NMarifer ;BNP STAT 16:26 05/06/2020 16:53 Gilberto Castañeda Victoria Jennifer R.N. ;PT/INR STAT 16:26 05/06/2020 16:53 Gilberto Castañeda Victoria Jennifer R.N. ;Venous Blood Gas STAT 16:26 05/06/2020 16:53 Gilberto Castañeda Victoria Jennifer R.N. ;COVID-19 CAH STAT 19:35 05/06/2020 19:53 Lesley Elkins(Symptomatic as Amara Macias R.N.Defined by CDC) ;() (FirstTest) (NotHospitalized) (Not) (NotResident inCongregate CareSetting) (NotEmployed in 2 OrderSheet [facility] Emergency Department [address] [place] [address] Phone #: ext- [phone] 05/06/2020 16:15 [id number] Sex[facility] F : 1940 Age: 80yHealthcare Setting)DIAGNOSTIC [...] 16:26 05/06/2020 16:44 Garry,Monitor Amara Macias R.N. ;Promotions Manager 16:05/06/2020 16:44 Garry,(continuous) Amara Macias R.N. ;EKG 16:26 05/06/2020 16:45 Gilberto Castañeda Victoria Jennifer R.N. ;NPO 16:26 05/06/2020 16:45 Gilberto Castañeda Victoria Jennifer R.N. ;Obtain Old EKG 16:26 05/06/2020 16:45 Gilebrto Castañeda Victoria Jennifer R.N. ;Obtain Old Records 16:05/06/2020 16:45 Gilberto Castañeda Victoria Jennifer R.N. ;Oxygen (2 L/min) 16:26 05/06/2020 16:45 Garry,([place]) Amara Macias R.N. ;Oxygen titrate to 16:05/06/2020 16:45 Garry,92% Amara Macias R.N. ;Pulse oximeter 16:26 05/06/2020 16:45 Grary, 3 OrderSheet [facility] Emergency Department [address] [place] [address] Phone #: ext- [phone] 05/06/2020 16:15 Patient: [...] rce(s) Supporting Document(s) ID Date Data Source [id number] 05/06/2020 04:16:00 PM EST [facility] 1 Medication Reconciliation Report [facility] Emergency Department [address] [place] [address] Phone #: ext- [phone] 05/06/2020 16:15 Patient: [...] 1 tablet, daily 2 Medication Reconciliation Report [facility] Emergency Department [address] [place] [address] Phone #: ext- [phone] 05/06/2020 16:15 Patient: JOY DENT Sex: F : 1940 Age: 80y Vitamin D-3 Oral 1999, daily Warfarin Sodium Oral (3 mg) 1 tablet, dailyThe source(s) of the original Home Medication information:EMSThe following Medications were given to the patient in the Emergency Department:Lasix [IVP] IVP 40 mg, administered: 18:42 05/06/2020The following Medications were prescribed to the patient:None. Name Value Range Interpretation Code Description Data Vivian rce(s) Supporting Document(s) ID Date Data Source [id number] 05/06/2020 04:16:00 PM [place] [address] Medication Administration Record [facility] Emergency Department [address] [place] [address] Phone #: ext- [phone] 05/06/2020 16:15 Patient: JOY DENT Sex: F : 1940 Age: 80yWeight: 94.3 kgHeight/Length: 61 inBMI: 39.3ALLERGIES: Aloe, PCN, Penicillins Date/Time Medication Administered Medication OrderedGiven LASIX [IVP] Lasix IVP 40 mg (NOW x1)18:42 05/06/2020 Dose: 40 mg Shanell Quinteros R.N. Site: #1 left forearm Name Value Range Interpretation Code Description Data Vivian rce(s) Supporting Document(s) ID Date Data Source [id number] 05/06/2020 04:16:00 PM [facility] 1 General Instructions [facility] Emergency Department [address] [place] [address] Phone #: ext [phone] 05/06/2020 16:15 Patient: JOY DENT Sex: F : 1940 Age: 80yAcute dizziness.Acute moderate systolic, left ventricular congestive heart failure.(Electronically signed by Amara Macias 05/06/2020 22:28) Name Value Range Interpretation Code Description Data Vivian rce(s) Supporting Document(s) ID Date Data Source [id number] 05/06/2020 04:16:00 PM [facility] 1 Clinical Report - Nurses [facility] Emergency Department [address] [place], [place] [address] Phone #: ext- [phone] 05/06/2020 16:15 Patient: JOY DENT Sex: F [...] stent? unknown if she needs kidney/cardiac stent).Treatment DIRECT CARE SPECIALIST:(Tylenol last dose 1430). --16:28 05/06/20 Shanell Castañeda [...] 2000, daily. 2 Clinical Report - Nurses [facility] Emergency Department [address] [place] [address] Phone #: wro- [phone] 05/06/2020 16:15 [id number] Sex: F : 1940 Age: 80yWarfarin Sodium [...] harming or 3 Clinical Report - Nurses [facility] Emergency Department [address] [place] [address] Phone #: ext- [phone] 05/06/2020 16:15 Patient: [...] 2 seconds. 4 Clinical Report - Nurses [facility] Emergency Department [address] [place] [address] Phone #: ext- [phone] 05/06/2020 16:15 Patient: JOY DENT Sex: F : 1940 Age: 80y GI / : Abdomen soft and nontender. SKIN: Skin is warm and dry. --16:44 05/06/20 Shanell Castañeda R.N.NURSING PROGRESS NOTESOxygen administered by nasal cannula at 2 liters. lathe mechanic, NIBP monitor and pulse oximeterplaced on patient; medical staff assistant- Lead II; monitor alarms on; monitor strip [...] with 10 mL saline. --16:53 05/06/20 Shanell Casatñeda R.N. Finger stick glucose: 273 mg/dL; performed [...] understanding. --18:42 5 Clinical Report - Nurses [facility] Emergency Department [address] [place] [address] Phone #: ext- [phone] 05/06/2020 16:15 Patient: [...] transferred and report given (Forrest Agrawal RN). --19:20 05/06/20 Shanell Castañeda R.N. Correction --19:28 05/06/20 Shanell Castañeda R.N. Care transferred and report given (Gary Cash RN). --19:28 05/06/20 Shanell Castañeda R.N. 19:00 05/06/20. BP: 154/49. [...] of the patient (Rapid COVID). --19:56 05/06/20 Lesley Agrawal R.N. 20:15 05/06/20. BP: 156/74. MAP: [...] Agrawal R.N. 6 Clinical Report - Nurses [facility] Emergency Department [address] [place] [address] Phone #: ext- [phone] 05/06/2020 16:15 ------ Patient: JOY DENT Sex: F : 1940 Age: 80y 20:25 05/06/20. Temp: 98 F. Pain level now: 010. --20:41 05/06/20 Lesley Agrawal R.N.Locked/Released at 05/07/2020 06:49 by Lesley Agrawal R.N. Name Value Range Interpretation Code Description Data Vivian rce(s) Supporting Document(s) ID Date Data Source [id number] 05/06/2020 04:16:00 PM EST [facility] 1 Clinical Report - Physicians/Mid Levels [facility] Emergency Department [address] [place] [address] Phone #: ext- [phone] 05/06/2020 16:15 Patient: [...] Oxygen. she was recently seen by her transmitter engineer in charge who suggested that she gets a stent). Recent medical care: The patient was seen recently in a clinic. ( her cone classifier tender who told her she has an abnormal [...] Disease. 2 Clinical Report - Physicians/Mid Levels [facility] Emergency Department [address] [place] [address] Phone #: ext- [phone] 05/06/2020 16:15 Patient: JOY DENT Sex: F : 1940 Age: 80y Irregular [...] EXAM 3 Clinical Report - Physicians/Mid Levels [facility] Emergency Department [address] [place] [address] Phone #: ext- [phone] 05/06/2020 16:15 Patient: [...] sensory deficit.LABS, X-RAYS, AND EKGEKG: EKG time: 16:23 05/06/2020. ventricular-paced rhythm. EKG unchanged when compared withprior EKG. (Mar 23). The study has been interpreted contemporaneously by me. The study hasbeen independently viewed by me. I agree with and confirm the computer reading of the EKG.Interpretation time: 16:23 05/06/2020.Chest X-ray: (Vic yadav Mike - 05/06/2020 4:47:46 [facility] jorge/donaldo). The X-rays were interpreted by the [...] 0.70) 4 Clinical Report - Physicians/Mid Levels [facility] Emergency Department [address] [place] [address] Phone #: ext- [phone] 05/06/2020 16:15 Patient: [...] Male GFR Interprentation 20-49 yrs >60 mL/min Vwpetx75-09 yrs >56 mL/min Normal 60-69 yrs >49 mL/min Normal 70-79yrs>42 mL/min Normal 80 and above >35 mL/min Normal Female GFRInterpretation 20-39 yrs >60 mL/min Normal 40-49 yrs >58 mL/minNormal 50-59 yrs >51 mL/min Normal 60-69 yrs >45 mL/min Nudsge26-10 yrs >39 mL/min Normal 80 and above >32 mL/min NormalLipase: (KATELYN: 05/06/2020 16:35) ( MsgRcvd 05/06/2020 17:21) Final results Test Result Flag Units (Reference) LIPASE 28 U/L (13 - 60)Troponin-T: (KATELYN: 05/06/2020 16:35) ( MsgRcvd 05/06/2020 17:21) Final results Test Result Flag Units (Reference) TROPONIN T <0.01 NG/ML (0.00 - 0.10) TROPONIN T0.1 ng/ml Recommended as the clinical threshold value forTroponin T.BNP: (KATELYN: 05/06/2020 16:35) ( PagRcvd 05/06/2020 17:21) Final results Test Result Flag Units (Reference) BNP 8942 H PG/ML (0 - 450)PT/INR: (KATELYN: 05/06/2020 16 :35) ( MsgRcvd 05/06/2020 17:15) Final results Test Result Flag Units (Reference) PROTIME 24.2 H SECONDS (11.0 - 15.5) 5 Clinical Report - Physicians/Mid Levels [facility] Emergency Department [address] [place] [address] Phone #: ext- [phone] 05/06/2020 16:15 Patient: JOY DENT Sex: F : 1940 Age: 80y INR 2.06 H (0.93 - 1.23) \\BLDo\\INR INTERPRETATION\\BLDx\\ Therapeutic range for Coumadin and related oral anticoagulants. -International Normalized Ratio (INR): 2.0 - 3.0 for Venous Thrombosis, Pulmonary Embolus, Tissue heart valves, Acute [place], Atrial Fibrillation, Valvular heart disease and recurrent Systemic Embolism. -International Normalized Ratio (INR): 2.5 - 3.5 for Mechanical Prosthetic valve. Chest Portable 1 View: (KATELYN: 05/06/2020 16:26) ( cvd 05/06/2020 17:06) In Progress CHEST PORTABLE Reason(s): Chest Pain TRANSPORTATION: P IV? O2? Oxygen?(Yes) Room: E Venous Blood Gas: (KATELYN: 05/06/2020 16:35) ( MsgRcvd 05/06/2020 17:02) Final results Test * *Result [...] failure. 6 Clinical Report - Physicians/Mid Levels [facility] Emergency Department [address] [place] [address] Phone #: ext- [phone] 05/06/2020 16:15 Patient: JOY DENT Sex: F : 1940 Age: 80y(Electronically signed by Amara Macias 05/06/2020 22:28) Name Value Range Interpretation Code Description Data Vivian rce(s) Supporting Document(s) ID Date Data Source [id number] 05/06/2020 04:16:00 PM EST [facility] JOY Lugo MR N: [id number] VisitID: [id number] Date: 17:45MED REC REQUEST FAXED TO [employer] WITH [employer] @ 4937(Electronically signed by Hai White - 05/06/2020 17:45) Name Value Range Interpretation Code Description Data Vivian rce(s) Supporting Document(s) ID Date Data Source [id number] 05/07/2020 05:37:00 AM EST [facility] (Bolivar Sotomayor [...] MD) {A1] {HB] ID Date Data Source [id number] 05/07/2020 05:37:00 AM EST [facility] (Bolivar Sotomayor [...] (Bolivar Sotomayor MD) ID Date Data Source [id number] 05/07/2020 05:37:00 AM EST [facility] (Bolivar Sotomayor MD) Name Value Range Interpretation Code Description Data Vivian rce(s) Supporting Document(s) Magnesium [Mass/volume] in Serum or Plasma 1.8 mg/dL 1.7-2.2 [facility] (Bolivar Sotomayor MD) ID Date Data Source [id number] 05/07/2020 05:37:00 AM EST [facility] (Bolivar Sotomayor [...] (Bolivar Sotomayor MD) ID Date Data Source [id number] 05/07/2020 05:37:00 AM EST [facility] (Bolivar Sotomayor [...] (Bolivar Sotomayor MD) ID Date Data Source [id number] 05/07/2020 05:37:00 AM EST [facility] (Bolivar Sotomayor [...] Thrombosis, Pulmonary Embolus, Tissue heart valves, Acute [place], Atrial Fibrillation, Valvular heart disease and recurrent Systemic Embolism. -International Normalized Ratio (INR): 2 .5 - 3.5 for Mechanical Prosthetic valve. ID Date Data Source [id number] 05/07/2020 02:26:00 PM [facility] Name Value Range Interpretation Code Description Data Vivian rce(s) Supporting Document(s) Hemoglobin A1c/Hemoglobin.total in Blood 10.7 % 4.4 - 6.1 H [facility] {A1]{HB] ID Date Data Source [id number] 05/07/2020 06:50:00 AM [facility] Name Value Range Interpretation Code Description Data Vivian rce(s) Supporting Document(s) BNP 9000 PG/ML 0 - [address] [facility] ID Date Data Source [id number] 05/07/2020 06:47:00 AM [facility] Name Value Range Interpretation Code Description Data Vivian rce(s) Supporting Document(s) Thyroxine (T4) free index in Serum or Plasma by calculation 1.40 NG/DL 0.93 - 1.70 [facility] ID Date Data Source [id number] 05/07/2020 06:43:00 AM [facility] Name Value Range Interpretation Code Description Data Vivian rce(s) Supporting Document(s) CVE PANEL [facility] LIPID PANEL Cholesterol [Mass/volume] in Serum or Plasma 90 MG/DL 131 - 200 L [facility] Deprecated Triglyceride [Mass/volume] in Serum or Plasma 89 MG/DL 3 5 - 160 [facility] HDL 30 MG/DL 29 - 86 [facility] Cholesterol in LDL [Mass/volume] in Serum or Plasma by Direc t assay 45 mg/dL 65 - 175 L [facility] Cholesterol.total/Cholesterol in HDL [Mass Ratio] in Serum o r Plasma 3.0 3.2 - 4.4 L [facility] LDL/HDL 1.50 1.47 - 3.22 [facility] CVE RISK CHOL/HDL LDL/HDLMEN: 1/2 AVERAGE 3.43 1.00 AVERAGE 4.97 3.55 2X AVERAGE 9.55 6.25 3X AVERAGE 23.99 7.99WOMEN: 1/2 AVERAGE 3.27 1.47 AVERAGE 4.44 3.22 2X AVERAGE 7.05 5.03 3X AVERAGE 11.04 6.14 ID Date Data Source [id number] 05/07/2020 06:43:00 AM EST [facility] Name Value Range Interpretation Code Description Data Vivian rce(s) Supporting Document(s) COMPREHENSIVE METABOLIC PANEL [facility] COMPREHENSIVE METABOLIC PANEL Sodium [Moles/volume] in Serum or Plasma 141 mEq/L 134 - 153 [facility] Potassium [Moles/volume] in Serum or Plasma 3.2 mEq/L 3.6 - 5.0 L [facility] Chloride [Moles/volume] in Serum or Plasma 96 mEq/L 98 - 107 L [facility] Carbon dioxide, total [Moles/volume] in Serum or Plasma 40 MEQ/L 22 - 30 H [facility] Glucose [Mass/volume] in Serum or Plasma 93 MG/DL 65 - 110 [facility] BUN 21 MG/DL 7 - 21 [facility] al Creatinine [Mass/volume] in Serum or Plasma 1.2 MG/DL 0.7 - 1.5 [facility] BUN/CREAT 18 8 - 27 [facility] al Protein [Mass/volume] in Serum or Plasma 5.4 G/DL 6.3 - 8.2 L [facility] Albumin [Mass/volume] in Serum or Plasma 3.7 G/DL 3.9 - 5.0 L [facility] Globulin [Mass/volume] in Serum by calculation 1.7 GM/DL 2.4 - 3.2 L [facility] A/G RATIO 2.2 0.8 - 2.[address] [facility] Calcium [Mass/volume] in Serum or Plasma 8.4 MG/DL 8.4 - 10.2 [facility] Bilirubin.total [Mass/volume] in Serum or Plasma 1.5 MG/DL 0.2 - 1.3 H [facility] Alkaline phosphatase [Enzymatic activity/volume] in Serum or Plasma 223 U/L 38 - 126 H [facility] Aspartate aminotransferase [Enzymatic activity/volume] in Serum or Plasma 20 U/L 5 - 40 [facility] Alanine aminotransferase [Enzymatic activity/volume] in Seru m or Plasma 10 U/L 7 - 56 [facility] Anion gap 3 in Serum or Plasma 5.0 mmol/L 8.0 - 16.0 L [facility] [address] [facility] 46 mL/min [facility] AFR AMER GFR >60 [facility] Male GFR In terprentation [...] >32 mL/min Normal ID Date Data Source [id number] 05/07/2020 06:42:00 AM EST [facility] Name Value Range Interpretation Code Description Data Vivian rce(s) Supporting Document(s) CBC W/AUTOMATED DIFF [facility] COMPLETE BLOOD COUNT Leukocytes [#/volume] in Blood by Automated count 6.2 10^3/uL 4.2 - 1 1.0 [facility] Erythrocytes [#/volume] in Blood by Automated count 3.97 10^6/uL 4. 20 - 5.40 L [facility] Hemoglobin [Mass/volume] in Blood 12.3 g/dL 12.0 - 16.0 [facility] Hematocrit [Volume Fraction] of Blood by Automated count 37.0 % 3 7.0 - 47.0 [facility] Erythrocyte mean corpuscular volume [Entitic volume] by Auto mated count 93.2 fL 81.0 - 101 [facility] Erythrocyte mean corpuscular hemoglobin [Entitic mass] by Automated count 31.0 pg 27.0 - 34.0 [facility] Erythrocyte mean corpuscular hemoglobin concentration [Mass/volume] by Automated count 33.2 g/dL 31.0 - 36.0 [facility] Erythrocyte distribution width [Ratio] by Automated count 16.2 % 11.5 - 14.5 H [facility] Platelets [#/volume] in Blood by Automated count 133 10^3/uL 150 - 45 0 L [facility] Platelet mean volume [Entitic volume] in Blood by Automated count 12.4 fL 7.4 - 10.4 H [facility] Neutrophils/100 leukocytes in Blood by Automated count 64.7 % 37. 0 - 80.0 [facility] Lymphocytes/100 leukocytes in Blood by Manual count 19.4 % 25.0 - 40.0 L [facility] Monocytes/100 leukocytes in Blood by Automated count 11.7 % 3.0 - 8.0 H [facility] Eosinophils/100 leukocytes in Blood by Automated count 3.5 % 0.0 - 7.0 [facility] Basophils/100 leukocytes in Blood by Automated count 0.5 % 0.0 - 2.5 [facility] %IG 0.2 % 0.0 - 0.0 [facility] al %NRBC 0.0 % 0.0 - 0.0 [facility] al Neutrophils [#/volume] in Blood by Automated count 4.03 10^3/uL 2.00 - 6.90 [facility] Lymphocytes [#/volume] in Blood by Automated count 1.21 10^3/uL 0.60 - 3.40 [facility] Monocytes [#/volume] in Blood by Automated count 0.73 10^3/uL 0.00 - 0.90 [facility] Eosinophils [#/volume] in Blood by Automated count 0.22 10^3/uL 0.00 - 0.70 [facility] Basophils [#/volume] in Blood by Automated count 0.03 10^3/uL 0.00 - 0.20 [facility] #IG 0.01 10^3/uL 0.00 - 0.10 [facility] #NRBC 0.00 10^3/uL 0.00 - 0.00 [facility] MANUAL DIFF NOT INDICATED [facility] RBC MORPH NOT INDICATED [facility] ID Date Data Source [id number] 05/07/2020 06:41:00 AM EST [facility] Name Value Range Interpretation Code Description Data Vivian rce(s) Supporting Document(s) Magnesium [Mass/volume] in Serum or Plasma 1.8 MG/DL 1.7 - 2.2 [facility] ID Date Data Source [id number] 05/07/2020 06:20:00 AM [facility] Name Value Range Interpretation Code Description Data Vivian rce(s) Supporting Document(s) Prothrombin time (PT) 23.1 SECONDS 11.0 - 15.5 [facility] INR in Platelet poor plasma by Coagulation assay 1.94 0.93 - 1. 23 H [facility] \\BLDo\\INR INTERPRETATION\\BLDx\\ Therapeutic range for Coumadin and related oral anticoagulants. - International Normalized Ratio (INR): 2.0 - 3.0 for Venous Thrombosis, Pulmonary Embolus, Tissue heart valves, Acute [place], Atrial Fibrillation, Valvular heart disease and recurrent Systemic Embolism. -International Normalized Ratio (INR): 2.5 - 3.5 for Mechanical Prosthetic valve. ID Date Data Source [id number] 05/06/2020 07:47:00 PM EST [facility] Name Value Range Interpretation Code Description Data Vivian rce(s) Supporting Document(s) COVID-19 [facility] This lab was ordered by [facility] and reported by [facility]. ID Date Data Source [id number] 05/06/2020 07:47:00 PM EST [facility] Name Value Range Interpretation Code Description Data Vivian rce(s) Supporting Document(s) COVID-19 [facility] This lab was ordered by [facility] and reported by [facility]. ID Date Data Source [id number] 05/06/2020 08:16:00 PM [facility] Name Value Range Interpretation Code Description Data Vivian rce(s) Supporting Document(s) COVID-19 NOT DETECTED [facility] COVID-19 [facility] NOT DETECTED [facility] { PROCEDURAL CONTROL VALID KIT LOT # _[id number] 05/06/20.TAD. KIT EXP DATE _08.13.20 05/06/20.TAD. NORMAL RANGE IS NOT DETECTEDNEGATIVE RESULTS SHOULD BE TREATED PREUMPTIVE AND, IF INCONSISTENT WITHCLINICAL SIGNS AND SYMPTOMS OR NECESSARY FOR PATIENT MANAGEMENT, SHOULD BETESTED WITH DIFFERENT AUTHORIZED OR CLEARED MOLECULAR TESTS. NEGATIVE RESULTSDO NOT PRECLUDE SARS-CoV-2 INFECTION AND SHOULD NOT BE USED THE SOLE BASISFOR PATIENT MANAGEMENT DECISIONS. ID Date Data Source [id number] 05/06/2020 04:35:00 PM EST [facility] (Bolivar Sotomayor MD) Name Value Range Interpretation Code Description Data Vivian rce(s) Supporting Document(s) Magnesium [Mass/volume] in Serum or Plasma 1.9 mg/dL 1.7-2.2 [facility] (Bolivar Sotomayor MD) can run on today blood Thyrotropin [Units/volume] in Serum or Plasma by Detec tion limit <= 0.005 mIU/L 8.43 uIU/mL 0.47-5.01 Above high normal [facility] (Bolivar Sotomayor MD) can run on todays blood ID Date Data Source [id number] 05/07/2020 01:44:00 AM [facility] Value Range Interpretation Code Description Data Vivian rce(s) Supporting Document(s) Thyrotropin [Units/volume] in Serum or Plasma by Detec tion limit <= 0.05 mIU/L 8.43 uIU/mL 0.47 - 5.01 H [facility] ID Date Data Source [id number] 05/06/2020 08:40:00 PM [facility] Value Range Interpretation Code Description Data Vivian rce(s) Supporting Document(s) Magnesium [Mass/volume] in Serum or Plasma 1.9 MG/DL 1.7 - 2.2 [facility] ID Date Data Source [id number] 05/06/2020 05:21:00 PM EST [facility] Name Value Range Interpretation Code Description Data Vivian rce(s) Supporting Document(s) COMPREHENSIVE METABOLIC PANEL [facility] COMPREHENSIVE METABOLIC PANEL Sodium [Moles/volume] in Serum or Plasma 134 mEq/L 134 - 153 [facility] Potassium [Moles/volume] in Serum or Plasma 4.6 mEq/L 3.6 - 5.0 [facility] Chloride [Moles/volume] in Serum or Plasma 91 mEq/L 98 - 107 L [facility] Carbon dioxide, total [Moles/volume] in Serum or Plasma 36 MEQ/L 22 - 30 H [facility] Glucose [Mass/volume] in Serum or Plasma 304 MG/DL 65 - 110 [facility] BUN 23 MG/DL 7 - [address] [facility] Creatinine [Mass/volume] in Serum or Plasma 1.3 MG/DL 0.7 - 1.5 [facility] BUN/CREAT 18 8 - 27 [facility] al Protein [Mass/volume] in Serum or Plasma 6.0 G/DL 6.3 - 8.2 L [facility] Albumin [Mass/volume] in Serum or Plasma 4.1 G/DL 3.9 - 5.0 [facility] Globulin [Mass/volume] in Serum by calculation 1.9 GM/DL 2.4 - 3.2 L [facility] A/G RATIO 2.2 0.8 - 2.0 [facility] Calcium [Mass/volume] in Serum or Plasma 8.9 MG/DL 8.4 - 10.2 [facility] Bilirubin.total [Mass/volume] in Serum or Plasma 1.5 MG/DL 0.2 - 1.3 H [facility] Alkaline phosphatase [Enzymatic activity/volume] in Serum or Plasma 257 U/L 38 - 126 H [facility] Aspartate aminotransferase [Enzymatic activity/volume] in Serum or Plasma 23 U/L 5 - 40 [facility] Alanine aminotransferase [Enzymatic activity/volume] in Seru m or Plasma 13 U/L 7 - 56 [facility] Anion gap 3 in Serum or Plasma 7.0 mmol/L 8.0 - 16.0 L [facility] AGE [address] [facility] NON-AA GFR 42 mL/min [facility] AFR AMER GFR >60 [facility] Male GFR In terprentation [...] >32 mL/min Normal ID Date Data Source [id number] 05/06/2020 05:21:00 PM [facility] Name Value Range Interpretation Code Description Data Vivian rce(s) Supporting Document(s) BNP 8942 PG/ML 0 - 450 [facility] ID Date Data Source [id number] 05/06/2020 05:21:00 PM [facility] Name Value Range Interpretation Code Description Data Vivian rce(s) Supporting Document(s) Lipase [Enzymatic activity/volume] in Serum or Plasma 28 U/L 13 - 60 [facility] ID Date Data Source [id number] 05/06/2020 05:21:00 PM [facility] Value Range Interpretation Code Description Data Vivian rce(s) Supporting Document(s) TROPONIN T <0.01 NG/ML 0.00 - 0.10 [facility] TROPONIN T0.1 ng/ml Recommended as the c linical threshold value forTroponin T. ID Date Data Source [id number] 05/06/2020 05:15:00 PM [facility] Value Range Interpretation Code Description Data Vivian rce(s) Supporting Document(s) Prothrombin time (PT) 24.2 SECONDS 11.0 - 15.5 [facility] INR in Platelet poor plasma by Coagulation assay 2.06 0.93 - 1. 23 H [facility] \\BLDo\\INR INTERPRETATION\\BLDx\\ Therapeutic range for Coumadin and related oral anticoagulants. - International Normalized Ratio (INR): 2.0 - 3.0 for Venous Thrombosis, Pulmonary Embolus, Tissue heart valves, Acute [place], Atrial Fibrillation, Valvular heart disease and recurrent Systemic Embolism. -International Normalized Ratio (INR): 2.5 - 3.5 for Mechanical Prosthetic valve. ID Date Data Source [id number] 05/06/2020 05:02:00 PM EST [facility] Name Value Range Interpretation Code Description Data Vivian rce(s) Supporting Document(s) pH of Serum or Plasma 7.39 7.32 - 7.43 [facility] pCO2 V 61.5 mm/HG 38.0 - 51.0 H [facility] pO2 V 34.3 mm/HG 30.0 - 55.0 [facility] Bicarbonate [Moles/volume] in Venous blood 36.5 meq/L 22.0 - 29.0 H [facility] TCO2 V 38.4 meq/L 22.0 - 29.[address] [facility] Base excess in Blood by calculation 9.3 -2.0 - 2.0 H [facility] O2 SAT V 67.1 % 40.0 - 85.0 [facility] ID Date Data Source [id number] 05/06/2020 04:54:00 PM EST [facility] Name Value Range Interpretation Code Description Data Vivian rce(s) Supporting Document(s) CBC W/AUTOMATED DIFF [facility] COMPLETE BLOOD COUNT Leukocytes [#/volume] in Blood by Automated count 7.6 10^3/uL 4.2 - 1 1.0 [facility] Erythrocytes [#/volume] in Blood by Automated count 4.30 10^6/uL 4. 20 - 5.40 [facility] Hemoglobin [Mass/volume] in Blood 13.2 g/dL 12.0 - 16.0 [facility] Hematocrit [Volume Fraction] of Blood by Automated count 40.5 % 3 7.0 - 47.0 [facility] Erythrocyte mean corpuscular volume [Entitic volume] by Auto mated count 94.2 fL 81.0 - 101 [facility] Erythrocyte mean corpuscular hemoglobin [Entitic mass] by Automated count 30.7 pg 27.0 - 34.0 [facility] Erythrocyte mean corpuscular hemoglobin concentration [Mass/volume] by Automated count 32.6 g/dL 31.0 - 36.0 [facility] Erythrocyte distribution width [Ratio] by Automated count 16.5 % 11.5 - 14.5 H [facility] Platelets [#/volume] in Blood by Automated count 135 10^3/uL 150 - 45 0 L [facility] Platelet mean volume [Entitic volume] in Blood by Automated count 11.7 fL 7.4 - 10.4 H [facility] Neutrophils/100 leukocytes in Blood by Automated count 74.9 % 37. 0 - 80.0 [facility] Lymphocytes/100 leukocytes in Blood by Manual count 15.2 % 25.0 - 40.0 L [facility] Monocytes/100 leukocytes in Blood by Automated count 9.0 % 3.0 - 8.0 H [facility] Eosinophils/100 leukocytes in Blood by Automated count 0.4 % 0.0 - 7.0 [facility] Basophils/100 leukocytes in Blood by Automated count 0.4 % 0.0 - 2.5 [facility] %IG 0.1 % 0.0 - 0.[address] [facility] %NRBC 0.0 % 0.0 - 0.0 [facility] al Neutrophils [#/volume] in Blood by Automated count 5.67 10^3/uL 2.00 - 6.90 [facility] Lymphocytes [#/volume] in Blood by Automated count 1.15 10^3/uL 0.60 - 3.40 [facility] Monocytes [#/volume] in Blood by Automated count 0.68 10^3/uL 0.00 - 0.90 [facility] Eosinophils [#/volume] in Blood by Automated count 0.03 10^3/uL 0.00 - 0.70 [facility] Basophils [#/volume] in Blood by Automated count 0.03 10^3/uL 0.00 - 0.20 [facility] #IG 0.01 10^3/uL 0.00 - 0.10 [facility] #NRBC 0.00 10^3/uL 0.00 - 0.00 [facility] MANUAL DIFF NOT INDICATED [facility] RBC MORPH NOT INDICATED [facility] sp[facility] ID Date Data Source [id number] 03/27/2020 09:42:00 [place] [address] PROGRESS NOTENAME: ANNA Medina ROOM#: [id number] OF : 1940 MR#: [id number] DATE: 03/25/20 OF SERVICE: 03/27/2020SUBJECTIVE:Patient feels dyspneic. [...] tomorrow.DD: Bolivar Sotomayor MD, PC 03/27/20 09:09DT: SSR 03/27/20 09:42DS: Bolivar Sotomayor MD, PC 04/07/20 09:10 1 Name Value Range Interpretation Code Description Data Vivian rce(s) Supporting Document(s) ID Date Data Source [id number] 03/30/2020 10:16:[address] [address] DISCHARGE SUMMARYNAME: ANNA Medina ROOM#: [id number] OF : 1940 MR#: [id number] PHYS: Bolivar Sotomayor MD, PC DATE: 03/25/20 [...] hemoglobin 13.7, sodium 139, potassium 5.3, blood gihox308, BNP 5816, magnesium 2.1. On 03/24, potassium [...] daily.11. [facility] eye drops for glaucoma. [address] [place] [address] DISCHARGE SUMMARYNAME: ANNA Medina ROOM#: [id number] OF : 1940 MR#: [id number] PHYS: Bolivar Sotomayor MD, PC DATE: 03/25/20 [...] HYPOTHYROIDISM.9. HISTORY OF GOUT.DD: Bolivar Sotomayor MD, PC 03/30/20 09:14DT: SSR 03/30/20 10:15DS: Bolivar Sotomayor MD, PC 04/07/20 09:10 2 Name Value Range Interpretation Code Description Data Vivian rce(s) Supporting Document(s) ID Date Data Source [id number] 03/29/2020 08:50:00 [place] [address] PROGRESS NOTENAME: ANNA Medina ROOM#: [id number] OF : 1940 MR#: [id number] DATE: 03/25/20 OF SERVICE: 03/29/20UBJECTIVE: She was admitted with CHF and has pneumonia. She is feeling much better. Her lung soundsare greatly improved. X-ray still shows consolidation. Will add Acapella. She is not wheezing.LABORATORY STUDIES: Today, white count is 6.4, hemoglobin is 12.7, hematocrit is 38.6, platelets yvw978. Sodium is 139, potassium is 4.3, chloride [...] rce(s) Supporting Document(s) ID Date Data Source [id number] 03/28/2020 11:21:00 [place] [address] PROGRESS NOTENAME: ANNA Medina ROOM#: [id number] OF : 1940 MR#: [id number] DATE: 03/25/20 OF SERVICE: 03/28/20UBJECTIVE: Admitted with [...] Hypercholesteremia, on statin.DD: MARTHA Tobar 03/28/20 20:06DT: LILIAZ 03/28/20 23:12DS: MARTHA Tobar 04/06/20 10:11 1 Name Value Range Interpretation Code Description Data Vivian rce(s) Supporting Document(s) ID Date Data Source [id number] 03/30/2020 12:03:00 PM EST [facility] [address] [place] [address] PHONE: [phone] FAX: [phone] Name .................. : ANNA Medina Acct Number.................. : [id number] ROOM. ................. : CCU1 MR Number ................... : [id number] Stay type ............. : I/P Discharge Date......... ... : Admit Date ......... : 03/25/20 Admit Phys .................... : MANUEL ALIZE Date of ....... : 1940 Family Phys ................... : NAUN MTZ Phone ..... ............. : [phone] Age ................................ : 80 Film# .................. .:[id number] Sex ................................. : F Unsigned t ranscriptions are preliminary reports and do not represent a medical or legal document CHEST 2 VIEWS 26610 COMPLETE:03/29/20 07:29 KJE [id number] (REASON FOR CHEST: PNEUMONIA CHEST X-RAY: 2-VIEWS [...] M.D. , 03/30/20 12:03, [place] Transcribe Initials: MILLY , Transcribe Date: 03/29/20 09:53, Dictation Date: Copy for: 002 [facility] Copy for: [facility] REC Page 1 of 1 Name Value Range Interpretation Code Description Data Vivian rce(s) Supporting Document(s) ID Date Data Source [id number] 03/30/2020 11:25:00 [place] [address] PHONE: [phone] FAX: [phone] Name .................. : ANNA ALLEN Carol Acct Number.................. : [id number] ROOM. ................. : CCU1 Number ................... : [id number] Stay type ............. : I/P Discharge Date......... ... : Admit Date ......... : 03/25/20 Admit Phys .................... : MANUEL ALIZE Date of ....... : 1940 Family Phys ................... : NAUN MTZ Phone .................. : [phone] Age ................................ : 80 Film# .................. .:[id number] Sex ................................. : F Unsigned transcriptions are preliminary reports and do not represent a medical or legal document CHEST 2 VIEWS 35415 COMPLETE:03/30/20 06:56 KJE 37498 (REASON FOR CHEST: f/u RLL,f/u LLL pneumonia, [...] MD , 03/30/20 11:25, TOÑA Transcribe Initials: SSR, Transcribe Date: 03/30/20 07:04, Dictation Date: Copy for: 002 [facility] Copy for: 710 [facility] REC Page 1 of 1 Name Value Range Interpretation Code Description Data Vivian rce(s) Supporting Document(s) ID Date Data Source [id number] 03/30/2020 05:09:00 AM EST [facility] (Bolivar Sotomayor [...] >32 mL/min Normal ID Date Data Source [id number] 03/30/2020 05:09:00 AM EST [facility] (Bolivar Sotomayor [...] test finding (navigational concept) 0.00 10^3/uL 0.00-0.00 [facility] (Bolivar Sotomayor MD) ID Date Data Source [id number] 03/30/2020 07:05:00 AM EST [facility] Name Value Range Interpretation Code Description Data Vivian rce(s) Supporting Document(s) COMPREHENSIVE METABOLIC PANEL [facility] COMPREHENSIVE METABOLIC PANEL Sodium [Moles/volume] in Serum or Plasma 139 mEq/L 134 - 153 [facility] Potassium [Moles/volume] in Serum or Plasma 4.2 mEq/L 3.6 - 5.0 [facility] Chloride [Moles/volume] in Serum or Plasma 93 mEq/L 98 - 107 L [facility] Carbon dioxide, total [Moles/volume] in Serum or Plasma 40 MEQ/L 22 - 30 H [facility] Glucose [Mass/volume] in Serum or Plasma 286 MG/DL 65 - 110 H [facility] BUN 33 MG/DL 7 - [address] [facility] Creatinine [Mass/volume] in Serum or Plasma 1.5 MG/DL 0.7 - 1.5 [facility] BUN/CREAT 22 8 - 27 [facility] al Protein [Mass/volume] in Serum or Plasma 5.9 G/DL 6.3 - 8.2 L [facility] Albumin [Mass/volume] in Serum or Plasma 3.8 G/DL 3.9 - 5.0 L [facility] Globulin [Mass/volume] in Serum by calculation 2.1 GM/DL 2.4 - 3.2 L [facility] A/G RATIO 1.8 0.8 - 2.0 [facility] al Calcium [Mass/volume] in Serum or Plasma 10.0 MG/DL 8.4 - 10.2 [facility] Bilirubin.total [Mass/volume] in Serum or Plasma 1.1 MG/DL 0.2 - 1.3 [facility] Alkaline phosphatase [Enzymatic activity/volume] in Serum or Plasma 229 U/L 38 - 126 H [facility] Aspartate aminotransferase [Enzymatic activity/volume] in Serum or Plasma 24 U/L 5 - 40 [facility] Alanine aminotransferase [Enzymatic activity/volume] in Seru m or Plasma 17 U/L 7 - 56 [facility] Anion gap 3 in Serum or Plasma 6.0 mmol/L 8.0 - 16.0 L [facility] AGE 80 yrs [facility] NON-AA GFR 36 mL/min [facility] iggy AFR AMER GFR >60 [facility] Male GFR In terprentation [...] >32 mL/min Normal ID Date Data Source [id number] 03/30/2020 06:42:00 AM EST [facility] Name Value Range Interpretation Code Description Data Vivian rce(s) Supporting Document(s) CBC W/AUTOMATED DIFF [facility] COMPLETE BLOOD COUNT Leukocytes [#/volume] in Blood by Automated count 6.6 10^3/uL 4.2 - 1 1.0 [facility] Erythrocytes [#/volume] in Blood by Automated count 4.09 10^6/uL 4. 20 - 5.40 L [facility] Hemoglobin [Mass/volume] in Blood 12.7 g/dL 12.0 - 16.0 [facility] Hematocrit [Volume Fraction] of Blood by Automated count 38.4 % 3 7.0 - 47.0 [facility] Erythrocyte mean corpuscular volume [Entitic volume] by Auto mated count 93.9 fL 81.0 - 101 [facility] Erythrocyte mean corpuscular hemoglobin [Entitic mass] by Automated count 31.1 pg 27.0 - 34.0 [facility] Erythrocyte mean corpuscular hemoglobin concentration [Mass/volume] by Automated count 33.1 g/dL 31.0 - 36.0 [facility] Erythrocyte distribution width [Ratio] by Automated count 17.2 % 11.5 - 14.5 H [facility] Platelets [#/volume] in Blood by Automated count 140 10^3/uL 150 - 45 0 L [facility] Platelet mean volume [Entitic volume] in Blood by Automated count 12.3 fL 7.4 - 10.4 H [facility] Neutrophils/100 leukocytes in Blood by Automated count 65.3 % 37. 0 - 80.0 [facility] Lymphocytes/100 leukocytes in Blood by Manual count 17.0 % 25.0 - 40.0 L [facility] Monocytes/100 leukocytes in Blood by Automated count 11.6 % 3.0 - 8.0 H [facility] Eosinophils/100 leukocytes in Blood by Automated count 5.3 % 0.0 - 7.0 [facility] Basophils/100 leukocytes in Blood by Automated count 0.5 % 0.0 - 2.5 [facility] %IG 0.3 % 0.0 - 0.[address] %NRBC 0.0 % 0.0 - 0.0 [facility] al Neutrophils [#/volume] in Blood by Automated count 4.29 10^3/uL 2.00 - 6.90 [facility] Lymphocytes [#/volume] in Blood by Automated count 1.12 10^3/uL 0.60 - 3.40 [facility] Monocytes [#/volume] in Blood by Automated count 0.76 10^3/uL 0.00 - 0.90 [facility] Eosinophils [#/volume] in Blood by Automated count 0.35 10^3/uL 0.00 - 0.70 [facility] Basophils [#/volume] in Blood by Automated count 0.03 10^3/uL 0.00 - 0.20 [facility] #IG 0.02 10^3/uL 0.00 - 0.10 [facility] #NRBC 0.00 10^3/uL 0.00 - 0.00 [facility] MANUAL DIFF NOT INDICATED [facility] RBC MORPH NOT INDICATED [facility] ID Date Data Source [id number] 03/29/2020 08:52:00 AM EST [facility] Faxed to [facility] 03/29 @0855a. [facility] Name Value Range Interpretation Code Description Data Vivian rce(s) Supporting Document(s) Prothrombin Time (Patient) 19.3 s 9.6-12.3 Above high normal [facility] INR 1.9 0.9-1.1 Above high normal [facility] THE INR IS OPERATIONALLY DEFINED FOR ENA SH PLASMA FROMPATIENTS STABILIZED ON ORAL ANTICOAGULANTS.ROUTINE ANTICOAGULANT THERAPY 2.0-3.0RECURRENT SYSTEMIC EMBOLISM/HEART VALVE REPLACEMENT 2.5-3.5 ID Date Data Source [id number] 03/29/2020 06:05:00 AM EST [facility] (Bolivar Sotomayor MD) Name Value Range Interpretation Code Description Data Vivian rce(s) Supporting Document(s) Laboratory test finding (navigational concept) 19.3 s 1 1.0-15.5 Above high normal [facility] (Bolivar Sotomayor MD) TEST PERFORMED AT [facility] [address] [place] [address] IA# [id number] SEE SCANNED REPORT Laboratory test finding (navigational concept) 1.90 0 .93-1.23 Above high normal [facility] (Bolivar Sotomayor MD) \\BLDo\\INR INTERPRETATION\\BLDx\\ Therapeutic range for Coumadin and related oral anticoagulants. -International Normalized Ratio (INR): 2 .0 - 3.0 for Venous Thrombosis, Pulmonary Embolus, Tissue heart valves, Acute [place], Atrial Fibrillation, Valvular heart disease and recurrent Systemic Embolism. -International Normalized Ratio (INR): 2 .5 - 3.5 for Mechanical Prosthetic valve. ID Date Data Source [id number] 03/29/2020 06:05:00 AM EST [facility] (Bolivar Sotomayor [...] patient fasting? Y ID Date Data Source [id number] 03/29/2020 06:05:00 AM EST [facility] (Bolivar Sotomayor [...] mg/dL 7-21 Above high normal [facility] (Bolivar Sotomayro MD) Is patient fasting? Y Laboratory test [...] patient fasting? Y ID Date Data Source [id number] 03/29/2020 10:16:00 AM EST [facility] Name Value Range Interpretation Code Description Data Vivian rce(s) Supporting Document(s) Prothrombin time (PT) 19.3 SECONDS 11.0 - 15.5 [facility] [place] [address] CLIA# [id number] SEE SCANNED REPORT INR in Platelet poor plasma by Coagulation assay 1.90 0.93 - 1. 23 [facility] \\BLDo\\INR INTERPRETATION\\BLDx\\ Therapeutic range for Coumadin and related oral anticoagulants. - International Normalized Ratio (INR): 2.0 - 3.0 for Venous Thrombosis, Pulmonary Embolus, Tissue heart valves, Acute [place], Atrial Fibrillation, Valvular heart disease and recurrent Systemic Embolism. -International Normalized Ratio (INR): 2.5 - 3.5 for Mechanical Prosthetic valve. ID Date Data Source [id number] 03/29/2020 07:40:00 AM EST [facility] Name Value Range Interpretation Code Description Data Vivian rce(s) Supporting Document(s) CBC W/AUTOMATED DIFF [facility] COMPLETE BLOOD COUNT Leukocytes [#/volume] in Blood by Automated count 6.4 10^3/uL 4.2 - 1 1.0 [facility] Erythrocytes [#/volume] in Blood by Automated count 4.12 10^6/uL 4. 20 - 5.40 L [facility] Hemoglobin [Mass/volume] in Blood 12.7 g/dL 12.0 - 16.0 [facility] Hematocrit [Volume Fraction] of Blood by Automated count 38.6 % 3 7.0 - 47.0 [facility] Erythrocyte mean corpuscular volume [Entitic volume] by Auto mated count 93.7 fL 81.0 - 101 [facility] Erythrocyte mean corpuscular hemoglobin [Entitic mass] by Automated count 30.8 pg 27.0 - 34.0 [facility] Erythrocyte mean corpuscular hemoglobin concentration [Mass/volume] by Automated count 32.9 g/dL 31.0 - 36.0 [facility] Erythrocyte distribution width [Ratio] by Automated count 17.0 % 11.5 - 14.5 H [facility] Platelets [#/volume] in Blood by Automated count 150 10^3/uL 150 - 45 0 [facility] Platelet mean volume [Entitic volume] in Blood by Automated count 12.8 fL 7.4 - 10.4 H [facility] Neutrophils/100 leukocytes in Blood by Automated count 64.6 % 37. 0 - 80.0 [facility] Lymphocytes/100 leukocytes in Blood by Manual count 17.0 % 25.0 - 40.0 L [facility] Monocytes/100 leukocytes in Blood by Automated count 11.2 % 3.0 - 8.0 H [facility] Eosinophils/100 leukocytes in Blood by Automated count 6.4 % 0.0 - 7.0 [facility] Basophils/100 leukocytes in Blood by Automated count 0.5 % 0.0 - 2.5 [facility] %IG 0.3 % 0.0 - 0.[address] [facility] %NRBC 0.0 % 0.0 - 0.0 [facility] al Neutrophils [#/volume] in Blood by Automated count 4.15 10^3/uL 2.00 - 6.90 [facility] Lymphocytes [#/volume] in Blood by Automated count 1.09 10^3/uL 0.60 - 3.40 [facility] Monocytes [#/volume] in Blood by Automated count 0.72 10^3/uL 0.00 - 0.90 [facility] Eosinophils [#/volume] in Blood by Automated count 0.41 10^3/uL 0.00 - 0.70 [facility] Basophils [#/volume] in Blood by Automated count 0.03 10^3/uL 0.00 - 0.20 [facility] #IG 0.02 10^3/uL 0.00 - 0.10 [facility] #NRBC 0.00 10^3/uL 0.00 - 0.00 [facility] MANUAL DIFF NOT INDICATED [facility] RBC MORPH NOT INDICATED [facility] ID Date Data Source [id number] 03/29/2020 07:34:00 AM EST [facility] Name Value Range Interpretation Code Description Data Vivian rce(s) Supporting Document(s) COMPREHENSIVE METABOLIC PANEL [facility] COMPREHENSIVE METABOLIC PANEL Sodium [Moles/volume] in Serum or Plasma 139 mEq/L 134 - 153 [facility] Potassium [Moles/volume] in Serum or Plasma 4.3 mEq/L 3.6 - 5.0 [facility] Chloride [Moles/volume] in Serum or Plasma 93 mEq/L 98 - 107 L [facility] Carbon dioxide, total [Moles/volume] in Serum or Plasma 42 MEQ/L 22 - 30 HH [facility] CALL/ READ BACK OLIVER CARROLL [facility] BY: L[facility]Y [facility] 03.29.20 0773 [facility] Glucose [Mass/volume] in Serum or Plasma 239 MG/DL 65 - 110 H [facility] BUN 33 MG/DL 7 - 21 H [facility] Creatinine [Mass/volume] in Serum or Plasma 1.4 MG/DL 0.7 - 1.5 [facility] BUN/CREAT 24 8 - 27 [facility] Protein [Mass/volume] in Serum or Plasma 5.7 G/DL 6.3 - 8.2 L [facility] Albumin [Mass/volume] in Serum or Plasma 3.6 G/DL 3.9 - 5.0 L [facility] Globulin [Mass/volume] in Serum by calculation 2.1 GM/DL 2.4 - 3.2 L [facility] A/G RATIO 1.7 0.8 - 2.0 [facility] Calcium [Mass/volume] in Serum or Plasma 9.8 MG/DL 8.4 - 10.2 [facility] Bilirubin.total [Mass/volume] in Serum or Plasma 1.2 MG/DL 0.2 - 1.3 [facility] Alkaline phosphatase [Enzymatic activity/volume] in Serum or Plasma 215 U/L 38 - 126 H [facility] Aspartate aminotransferase [Enzymatic activity/volume] in Serum or Plasma 21 U/L 5 - 40 [facility] Alanine aminotransferase [Enzymatic activity/volume] in Seru m or Plasma 15 U/L 7 - 56 [facility] Anion gap 3 in Serum or Plasma 4.0 mmol/L 8.0 - 16.0 L [facility] AGE 80 yrs [facility] al NON-AA GFR 38 mL/min [facility] AFR AMER GFR >60 [facility] Male GFR In terprentation [...] >32 mL/min Normal ID Date Data Source [id number] 03/28/2020 06:07:00 AM EST [facility] (Bolivar Sotomayor MD) Name Value Range Interpretation Code Description Data Vivian rce(s) Supporting Document(s) Lactate [Mass/volume] in Serum or Plasma 1.4 mmol/L 0.2-2.2 [facility] (Bolivar Sotomayor MD) ID Date Data Source [id number] 03/28/2020 06:07:00 AM EST [facility] (Bolivar Sotomayor [...] >32 mL/min Normal ID Date Data Source [id number] 03/28/2020 06:07:00 AM EST [facility] (Bolivar Sotomayor MD) Name [...] (Bolivar Sotomayor MD) ID Date Data Source [id number] 03/28/2020 07:23:00 AM [facility] Name Value Range Interpretation Code Description Data Vivian rce(s) Supporting Document(s) Lactate [Moles/volume] in Serum or Plasma 1.4 MMOL/L 0.2 - 2.2 [facility] ID Date Data Source [id number] 03/28/2020 07:23:00 AM [facility] Name Value Range Interpretation Code Description Data Vivian rce(s) Supporting Document(s) COMPREHENSIVE METABOLIC PANEL [facility] COMPREHENSIVE METABOLIC PANEL Sodium [Moles/volume] in Serum or Plasma 139 mEq/L 134 - 153 [facility] Potassium [Moles/volume] in Serum or Plasma 3.9 mEq/L 3.6 - 5.0 [facility] Chloride [Moles/volume] in Serum or Plasma 94 mEq/L 98 - 107 L [facility] Carbon dioxide, total [Moles/volume] in Serum or Plasma 40 MEQ/L 22 - 30 H [facility] Glucose [Mass/volume] in Serum or Plasma 201 MG/DL 65 - 110 H [facility] BUN 31 MG/DL 7 - 21 H [facility] al Creatinine [Mass/volume] in Serum or Plasma 1.2 MG/DL 0.7 - 1.5 [facility] BUN/CREAT 26 8 - 27 [facility] al Protein [Mass/volume] in Serum or Plasma 5.6 G/DL 6.3 - 8.2 L [facility] Albumin [Mass/volume] in Serum or Plasma 3.6 G/DL 3.9 - 5.0 L [facility] Globulin [Mass/volume] in Serum by calculation 2.0 GM/DL 2.4 - 3.2 L [facility] A/G RATIO 1.8 0.8 - 2.0 [facility] Calcium [Mass/volume] in Serum or Plasma 9.8 MG/DL 8.4 - 10.2 [facility] Bilirubin.total [Mass/volume] in Serum or Plasma 1.1 MG/DL 0.2 - 1.3 [facility] Alkaline phosphatase [Enzymatic activity/volume] in Serum or Plasma 213 U/L 38 - 126 H [facility] Aspartate aminotransferase [Enzymatic activity/volume] in Serum or Plasma 21 U/L 5 - 40 [facility] Alanine aminotransferase [Enzymatic activity/volume] in Seru m or Plasma 14 U/L 7 - 56 [facility] Anion gap 3 in Serum or Plasma 5.0 mmol/L 8.0 - 16.0 L [facility]GE [address] [facility] NON-[facility] GFR 46 mL/min [facility] AFR AMER GFR >60 [facility] Male GFR In terprentation [...] >32 mL/min Normal ID Date Data Source [id number] 03/28/2020 07:12:00 AM EST [facility] Name Value Range Interpretation Code Description Data Vivian rce(s) Supporting Document(s) CBC W/AUTOMATED DIFF [facility] COMPLETE BLOOD COUNT Leukocytes [#/volume] in Blood by Automated count 7.4 10^3/uL 4.2 - 1 1.0 [facility] Erythrocytes [#/volume] in Blood by Automated count 4.17 10^6/uL 4. 20 - 5.40 L [facility] Hemoglobin [Mass/volume] in Blood 13.2 g/dL 12.0 - 16.0 [facility] Hematocrit [Volume Fraction] of Blood by Automated count 39.2 % 3 7.0 - 47.0 [facility] Erythrocyte mean corpuscular volume [Entitic volume] by Auto mated count 94.0 fL 81.0 - 101 [facility] Erythrocyte mean corpuscular hemoglobin [Entitic mass] by Automated count 31.7 pg 27.0 - 34.0 [facility] Erythrocyte mean corpuscular hemoglobin concentration [Mass/volume] by Automated count 33.7 g/dL 31.0 - 36.0 [facility] Erythrocyte distribution width [Ratio] by Automated count 17.2 % 11.5 - 14.5 H [facility] Platelets [#/volume] in Blood by Automated count 148 10^3/uL 150 - 45 0 L [facility] Platelet mean volume [Entitic volume] in Blood by Automated count 12.1 fL 7.4 - 10.4 H [facility] Neutrophils/100 leukocytes in Blood by Automated count 70.4 % 37. 0 - 80.0 [facility] Lymphocytes/100 leukocytes in Blood by Manual count 14.2 % 25.0 - 40.0 L [facility] Monocytes/100 leukocytes in Blood by Automated count 8.6 % 3.0 - 8.0 H [facility] Eosinophils/100 leukocytes in Blood by Automated count 6.0 % 0.0 - 7.0 [facility] Basophils/100 leukocytes in Blood by Automated count 0.4 % 0.0 - 2.5 [facility] %IG 0.4 % 0.0 - 0.0 [facility] %NRBC 0.0 % 0.0 - 0.0 [facility] al Neutrophils [#/volume] in Blood by Automated count 5.23 10^3/uL 2.00 - 6.90 [facility] Lymphocytes [#/volume] in Blood by Automated count 1.06 10^3/uL 0.60 - 3.40 [facility] Monocytes [#/volume] in Blood by Automated count 0.64 10^3/uL 0.00 - 0.90 [facility] Eosinophils [#/volume] in Blood by Automated count 0.45 10^3/uL 0.00 - 0.70 [facility] Basophils [#/volume] in Blood by Automated count 0.03 10^3/uL 0.00 - 0.20 [facility] #IG 0.03 10^3/uL 0.00 - 0.10 [facility] #NRBC 0.00 10^3/uL 0.00 - 0.00 [facility] MANUAL DIFF NOT INDICATED [facility] RBC MORPH NOT INDICATED [facility] sp[facility] ID Date Data Source [id number] 03/26/2020 09:52:00 AM EST [facility] [address] [place] [address] PROGRESS NOTENAME: ANNA Medina ROOM#: [id number] OF : 1940 MR#: [id number] DATE: 03/25/20 OF SERVICE: 03/26/2020SUBJECTIVE:This patient came [...] MD, PC 03/26/20 09:18DT: SSR 03/26/20 09:52DS: Boilvar Sotomayor MD, PC 03/27/20 09:20 1 Name Value Range Interpretation Code Description Data Vivian rce(s) Supporting Document(s) ID Date Data Source [id number] 03/25/2020 09:34:00 [place] [address] PROGRESS NOTENAME: ANNA Medina ROOM#: [id number] OF : 1940 MR#: [id number] DATE: 03/23/20 OF SERVICE: 03/25/2020SUBJECTIVE:Patient came with [...] is normal, there is no evidence of NJ.4. We have add Diovan 40 mg daily as an ARBS inhibitor for congestive heart failure. See if a combination of Coreg and Diovan will work for the congestive heart failure. Ejection fraction is 40%.DD: Bolivar Sotomayor MD, PC 03/25/20 09:14DT: SSR 03/25/20 09:33DS: Bolivar Sotomayor MD, PC 03/27/20 09:20 1 [place] [address] PROGRESS NOTENAME: ANNA Medina ROOM#: [id number] OF : 1940 MR#: [id number] DATE: 03/23/20 2 Name Value Range Interpretation Code Description Data Vivian rce(s) Supporting Document(s) ID Date Data Source [id number] 03/24/2020 09:11:00 [place] [address] PROGRESS NOTENAME: ANNA Medina ROOM#: [id number] OF : 1940 MR#: [id number] DATE: 03/23/20 OF SERVICE: 03/24/2020SUBJECTIVE:Patient came with [...] rce(s) Supporting Document(s) ID Date Data Source [id number] 03/27/2020 05:04:00 AM EST [facility] (Bolivar Sotomayor MD) Name Value Range Interpretation Code Description Data Vivian rce(s) Supporting Document(s) Laboratory test finding (navigational concept) Laboratory test result [facility] (Bolivar Sotomayor MD) COMPREHENSIVE METABOLIC PANEL Laboratory test finding (navigational concept) 142 meq/L 134-153 [facility] (Bolivar Sootmayor MD) Laboratory test finding (navigational concept) 5.0 [...] (Bolivar Sotomayor MD) ID Date Data Source [id number] 03/27/2020 05:04:00 AM EST [facility] (Bolivar Sotomayor MD) Name Value Range Interpretation Code Description Data Vivian rce(s) Supporting Document(s) Laboratory test finding (navigational concept) Laboratory test result [facility] (Bolivar Sotomayro MD) COMPLETE BLOOD COUNT Laboratory test finding [...] (Bolivar Sotomayor MD) ID Date Data Source [id number] 03/27/2020 07:33:00 AM [facility] Name Value Range Interpretation Code Description Data Vivian rce(s) Supporting Document(s) COMPREHENSIVE METABOLIC PANEL [facility] COMPREHENSIVE METABOLIC PANEL Sodium [Moles/volume] in Serum or Plasma 142 mEq/L 134 - 153 [facility] Potassium [Moles/volume] in Serum or Plasma 5.0 mEq/L 3.6 - 5.0 [facility] Chloride [Moles/volume] in Serum or Plasma 96 mEq/L 98 - 107 L [facility] Carbon dioxide, total [Moles/volume] in Serum or Plasma 41 MEQ/L 22 - 30 HH [facility] CALL/ READ BACK [facility] BY: CM [facility] DATE/TIME 03/27/[address] [facility] sp[facility] Glucose [Mass/volume] in Serum or Plasma 180 MG/DL 65 - 110 H [facility] BUN 34 MG/DL 7 - 21 H [facility] Creatinine [Mass/volume] in Serum or Plasma 1.3 MG/DL 0.7 - 1.5 [facility] BUN/CREAT 26 8 - 27 [facility] al Protein [Mass/volume] in Serum or Plasma 6.0 G/DL 6.3 - 8.2 L [facility] Albumin [Mass/volume] in Serum or Plasma 3.7 G/DL 3.9 - 5.0 L [facility] Globulin [Mass/volume] in Serum by calculation 2.3 GM/DL 2.4 - 3.2 L [facility] A/G RATIO 1.6 0.8 - 2.0 [facility] Calcium [Mass/volume] in Serum or Plasma 9.8 MG/DL 8.4 - 10.2 [facility] Bilirubin.total [Mass/volume] in Serum or Plasma 1.1 MG/DL 0.2 - 1.3 [facility] Alkaline phosphatase [Enzymatic activity/volume] in Serum or Plasma 237 U/L 38 - 126 H [facility] Aspartate aminotransferase [Enzymatic activity/volume] in Serum or Plasma 20 U/L 5 - 40 [facility] Alanine aminotransferase [Enzymatic activity/volume] in Seru m or Plasma 16 U/L 7 - 56 [facility] Anion gap 3 in Serum or Plasma 5.0 mmol/L 8.0 - 16.0 L [facility] AGE 80 yrs [facility] NON-AA GFR 42 mL/min [facility]gy AFR AMER GFR >60 [facility] Male GFR In terprentation [...] >32 mL/min Normal ID Date Data Source [id number] 03/27/2020 06:33:00 AM EST [facility] Name Value Range Interpretation Code Description Data Vivian rce(s) Supporting Document(s) CBC W/AUTOMATED DIFF [facility] COMPLETE BLOOD COUNT Leukocytes [#/volume] in Blood by Automated count 6.9 10^3/uL 4.2 - 1 1.0 [facility] Erythrocytes [#/volume] in Blood by Automated count 4.24 10^6/uL 4. 20 - 5.40 [facility] Hemoglobin [Mass/volume] in Blood 13.2 g/dL 12.0 - 16.0 [facility] Hematocrit [Volume Fraction] of Blood by Automated count 40.5 % 3 7.0 - 47.0 [facility] Erythrocyte mean corpuscular volume [Entitic volume] by Auto mated count 95.5 fL 81.0 - 101 [facility] Erythrocyte mean corpuscular hemoglobin [Entitic mass] by Automated count 31.1 pg 27.0 - 34.0 [facility] Erythrocyte mean corpuscular hemoglobin concentration [Mass/volume] by Automated count 32.6 g/dL 31.0 - 36.0 [facility] Erythrocyte distribution width [Ratio] by Automated count 17.5 % 11.5 - 14.5 H [facility] Platelets [#/volume] in Blood by Automated count 156 10^3/uL 150 - 45 0 [facility] Platelet mean volume [Entitic volume] in Blood by Automated count 12.3 fL 7.4 - 10.4 H [facility] Neutrophils/100 leukocytes in Blood by Automated count 65.7 % 37. 0 - 80.0 [facility] Lymphocytes/100 leukocytes in Blood by Manual count 15.5 % 25.0 - 40.0 L [facility] Monocytes/100 leukocytes in Blood by Automated count 11.6 % 3.0 - 8.0 H [facility] Eosinophils/100 leukocytes in Blood by Automated count 6.5 % 0.0 - 7.0 [facility] Basophils/100 leukocytes in Blood by Automated count 0.6 % 0.0 - 2.5 [facility] %IG 0.1 % 0.0 - 0.0 H [facility] %NRBC 0.0 % 0.0 - 0.0 [facility] al Neutrophils [#/volume] in Blood by Automated count 4.52 10^3/uL 2.00 - 6.90 [facility] Lymphocytes [#/volume] in Blood by Automated count 1.07 10^3/uL 0.60 - 3.40 [facility] Monocytes [#/volume] in Blood by Automated count 0.80 10^3/uL 0.00 - 0.90 [facility] Eosinophils [#/volume] in Blood by Automated count 0.45 10^3/uL 0.00 - 0.70 [facility] Basophils [#/volume] in Blood by Automated count 0.04 10^3/uL 0.00 - 0.20 [facility] #IG 0.01 10^3/uL 0.00 - 0.10 [facility] #NRBC 0.00 10^3/uL 0.00 - 0.00 [facility] MANUAL DIFF NOT INDICATED [facility] RBC MORPH NOT INDICATED [facility] sp[facility] ID Date Data Source [id number] 03/26/2020 02:12:00 PM EST [facility] [address] [place] [address] PHONE: [phone] FAX: [phone] Name .................. : ANNA Medina Acct Number.................. : [id number] ROOM. ................. : [facility] MR Number ................... : [id number] Stay type ............. : I/P Discharge Date......... ... : Admit Date ......... : 03/25/20 Admit Phys .................... : MANUEL ALIZE Date of ....... : 1940 Family Phys ................... : Vascular Closure Phone .................. : [phone] Age ................................ : 80 Film# .................. .:[id number] Sex ................................. : F Unsigned transcriptions are preliminary reports and do not represent a medical or legal document CT THORAX W/O CONTRAST [id number] COMPLETE:03/25/20 10:48 JEFFREY [id number] (REASON FOR CHEST: CHF CT OF THE [...] 03/26/20 14:12, TDS [address] [place] [address] PHONE: [phone] FAX: [phone] Name .................. : ANNA Medina Acct Number.................. : [id number] ROOM. ................. : CCU1 Number ................... : [id number] Stay type ............. : I/P Discharge Date......... ... : Admit Date ......... : 03/25/20 Admit Phys .................... : MANUEL HERRMANN Date of ....... : 1940 Family Phys ................... : NAUN MTZ Phone .................. : [phone] Age ................................ : 80 Film# .................. .:[id number] Sex ................................. : F Unsigned transcriptions are preliminary reports and do not represent a medical or legal document CT THORAX W/O CONTRAST [id number] COMPLETE:03/25/20 10:48 JEFFREY [id number] (REASON FOR CHEST: CHF Transcribe Initials: DZ , Transcribe Date: 03/26/20 00:55, Dictation Date: Copy for: 002 MSP Copy for: 710 MED REC Page 2 of 2 Name Value Range Interpretation Code Description Data Vivian rce(s) Supporting Document(s) ID Date Data Source [id number] 03/26/2020 05:12:00 AM EST [facility] (Bolivar Sotomayor MD) Name Value Range Interpretation Code Description Data Vivian rce(s) Supporting Document(s) Laboratory test finding (navigational concept) 2.71 0 .93-1.23 Above high normal [facility] (Bolivar Sotomayor MD) \\BLDo\\INR INTERPRETATION\\BLDx\\ Therapeutic range for Coumadin and related oral anticoagulants. -International Normalized Ratio (INR): 2 .0 - 3.0 for Venous Thrombosis, Pulmonary Embolus, Tissue heart valves, Acute [place], Atrial Fibrillation, Valvular heart disease and recurrent Systemic Embolism. -International Normalized Ratio (INR): 2 .5 - 3.5 for Mechanical Prosthetic valve. Laboratory test finding (navigational concept) 29.2 s 1 1.0-15.5 Above high normal [facility] (Bolivar Sotomayor MD) ID Date Data Source [id number] 03/26/2020 05:12:00 AM EST [facility] (Bolivar Sotomayor [...] (Bolivar Sotomayor MD) ID Date Data Source [id number] 03/26/2020 05:12:00 AM EST [facility] (Bolivar Sotomayor [...] >32 mL/min Normal ID Date Data Source [id number] 03/26/2020 05:12:00 AM EST [facility] (Bolivar Sotomayor MD) Name Value Range Interpretation Code Description Data Vivian rce(s) Supporting Document(s) Natriuretic peptide.B prohormone N-Terminal [Mass/volu me] in Serum or Plasma 4552 pg/mL 0-450 Above high normal [facility] (Bolivar Sotomayor MD) ID Date Data Source [id number] 03/26/2020 05:12:00 AM EST [facility] (Bolivar Sotomayor [...] AVERAGE 11.04 6.14 ID Date Data Source [id number] 03/26/2020 05:12:00 AM EST [facility] (Bolivar Sotomayor MD) Name Value Range Interpretation Code Description Data Vivian rce(s) Supporting Document(s) Hemoglobin A1c/Hemoglobin.total in Blood 8.8 % 4.4-6.1 Above high normal [facility] (Bolivar Sotomayor MD) {A1] {HB] ID Date Data Source [id number] 03/26/2020 08:06:00 AM [facility] Name Value Range Interpretation Code Description Data Vivian rce(s) Supporting Document(s) Hemoglobin A1c/Hemoglobin.total in Blood 8.8 % 4.4 - 6.1 H [facility] {A1]{HB] ID Date Data Source [id number] 03/26/2020 08:06:00 AM [facility] Name Value Range Interpretation Code Description Data Vivian rce(s) Supporting Document(s) CVE [facility]EL [facility] LIPID PAN[facility] Cholesterol [Mass/volume] in Serum or Plasma 99 MG/DL 131 - 200 L [facility] Deprecated Triglyceride [Mass/volume] in Serum or Plasma 110 MG/DL 3 5 - 160 [facility] HDL 31 MG/DL 29 - 86 [facility] Cholesterol in LDL [Mass/volume] in Serum or Plasma by Direc t assay 51 mg/dL 65 - 175 L [facility] Cholesterol.total/Cholesterol in HDL [Mass Ratio] in Serum o r Plasma 3.2 3.2 - 4.4 L [facility] LDL/HDL 1.65 1.47 - 3.22 [facility] ital CVE RISK CHOL/HDL LDL/HDLMEN: 1/2 AVERAGE 3.43 1.00 AVERAGE 4.97 3.55 2X AVERAGE 9.55 6.25 3X AVERAGE 23.99 7.99WOMEN: 1/2 AVERAGE 3.27 1.47 AVERAGE 4.44 3.22 2X AVERAGE 7.05 5.03 3X AVERAGE 11.04 6.14 ID Date Data Source [id number] 03/26/2020 07:15:00 AM EST [facility] Name Value Range Interpretation Code Description Data Vivian rce(s) Supporting Document(s) COMPREHENSIVE METABOLIC PANEL [facility] COMPREHENSIVE METABOLIC PANEL Sodium [Moles/volume] in Serum or Plasma 140 mEq/L 134 - 153 [facility] Potassium [Moles/volume] in Serum or Plasma 4.7 mEq/L 3.6 - 5.0 [facility] Chloride [Moles/volume] in Serum or Plasma 98 mEq/L 98 - 107 [facility] Carbon dioxide, total [Moles/volume] in Serum or Plasma 37 MEQ/L 22 - 30 H [facility] Glucose [Mass/volume] in Serum or Plasma 198 MG/DL 65 - 110 H [facility] BUN 36 MG/DL 7 [facility] [address] [facility] Creatinine [Mass/volume] in Serum or Plasma 1.4 MG/DL 0.7 - 1.5 [facility] BUN/CREAT 26 8 - 27 [facility] al Protein [Mass/volume] in Serum or Plasma 5.8 G/DL 6.3 - 8.2 L [facility] Albumin [Mass/volume] in Serum or Plasma 3.6 G/DL 3.9 - 5.0 L [facility] Globulin [Mass/volume] in Serum by calculation 2.2 GM/DL 2.4 - 3.2 L [facility] A/G RATIO 1.6 0.8 - 2.0 [facility] al Calcium [Mass/volume] in Serum or Plasma 9.6 MG/DL 8.4 - 10.2 [facility] Bilirubin.total [Mass/volume] in Serum or Plasma 1.0 MG/DL 0.2 - 1.3 [facility] Alkaline phosphatase [Enzymatic activity/volume] in Serum or Plasma 231 U/L 38 - 126 H [facility] Aspartate aminotransferase [Enzymatic activity/volume] in Serum or Plasma 23 U/L 5 - 40 [facility] Alanine aminotransferase [Enzymatic activity/volume] in Seru m or Plasma 16 U/L 7 - 56 [facility] Anion gap 3 in Serum or Plasma 5.0 mmol/L 8.0 - 16.0 L [facility] [address] [facility] 38 mL/min [facility] AFR AMER GFR >60 [facility] Male GFR In terprentation [...] >32 mL/min Normal ID Date Data Source [id number] 03/26/2020 07:15:00 AM [facility] Name Value Range Interpretation Code Description Data Vivian rce(s) Supporting Document(s) BNP 4552 PG/ML 0 - 450 H [facility] ID Date Data Source [id number] 03/26/2020 07:07:00 AM [facility] Name Value Range Interpretation Code Description Data Vivian rce(s) Supporting Document(s) CBC W/AUTOMATED DIFF [facility] COMPLETE BLOOD COUNT Leukocytes [#/volume] in Blood by Automated count 8.4 10^3/uL 4.2 - 1 1.0 [facility] Erythrocytes [#/volume] in Blood by Automated count 4.02 10^6/uL 4. 20 - 5.40 L [facility] Hemoglobin [Mass/volume] in Blood 12.4 g/dL 12.0 - 16.0 [facility] Hematocrit [Volume Fraction] of Blood by Automated count 38.2 % 3 7.0 - 47.0 [facility] Erythrocyte mean corpuscular volume [Entitic volume] by Auto mated count 95.0 fL 81.0 - 101 [facility] Erythrocyte mean corpuscular hemoglobin [Entitic mass] by Automated count 30.8 pg 27.0 - 34.0 [facility] Erythrocyte mean corpuscular hemoglobin concentration [Mass/volume] by Automated count 32.5 g/dL 31.0 - 36.0 [facility] Erythrocyte distribution width [Ratio] by Automated count 17.4 % 11.5 - 14.5 H [facility] Platelets [#/volume] in Blood by Automated count 160 10^3/uL 150 - 45 0 [facility] Platelet mean volume [Entitic volume] in Blood by Automated count 12.0 fL 7.4 - 10.4 H [facility] Neutrophils/100 leukocytes in Blood by Automated count 67.7 % 37. 0 - 80.0 [facility] Lymphocytes/100 leukocytes in Blood by Manual count 15.1 % 25.0 - 40.0 L [facility] Monocytes/100 leukocytes in Blood by Automated count 11.0 % 3.0 - 8.0 H [facility] Eosinophils/100 leukocytes in Blood by Automated count 5.5 % 0.0 - 7.0 [facility] Basophils/100 leukocytes in Blood by Automated count 0.5 % 0.0 - 2.5 [facility] %IG 0.2 % 0.0 - 0.0 H [facility] %NRBC 0.0 % 0.0 - 0.[facility] Neutrophils [#/volume] in Blood by Automated count 5.68 10^3/uL 2.00 - 6.90 [facility] Lymphocytes [#/volume] in Blood by Automated count 1.27 10^3/uL 0.60 - 3.40 [facility] Monocytes [#/volume] in Blood by Automated count 0.92 10^3/uL 0.00 - 0.90 H [facility] Eosinophils [#/volume] in Blood by Automated count 0.46 10^3/uL 0.00 - 0.70 [facility] Basophils [#/volume] in Blood by Automated count 0.04 10^3/uL 0.00 - 0.20 [facility] #IG 0.02 10^3/uL 0.00 - 0.10 [facility] #NRBC 0.00 10^3/uL 0.00 - 0.00 [facility] MANUAL DIFF NOT INDICATED [facility] RBC MORPH NOT INDICATED [facility] sp[facility] ID Date Data Source [id number] 03/26/2020 07:03:00 AM EST [facility] Name Value Range Interpretation Code Description Data Vivian rce(s) Supporting Document(s) Prothrombin time (PT) 29.2 SECONDS 11.0 - 15.5 [facility] INR in Platelet poor plasma by Coagulation assay 2.71 0.93 - 1. 23 H [facility] \\BLDo\\INR INTERPRETATION\\BLDx\\ Therapeutic range for Coumadin and related oral anticoagulants. - International Normalized Ratio (INR): 2.0 - 3.0 for Venous Thrombosis, Pulmonary Embolus, Tissue heart valves, Acute [place], Atrial Fibrillation, Valvular heart disease and recurrent Systemic Embolism. -International Normalized Ratio (INR): 2.5 - 3.5 for Mechanical Prosthetic valve. ID Date Data Source [id number] 03/25/2020 05:10:00 AM EST [facility] (Bolivar Sotomayor [...] >32 mL/min Normal ID Date Data Source [id number] 03/25/2020 05:10:00 AM EST [facility] (Bolivar Sotomayor [...] (Bolivar Sotomayor MD) ID Date Data Source [id number] 03/25/2020 05:10:00 AM EST [facility] (Bolivar Sotomayor [...] Thrombosis, Pulmonary Embolus, Tissue heart valves, Acute [place], Atrial Fibrillation, Valvular heart disease and recurrent Systemic Embolism. -International Normalized Ratio (INR): 2 .5 - 3.5 for Mechanical Prosthetic valve. ID Date Data Source [id number] 03/25/2020 07:31:00 AM EST [facility] Name Value Range Interpretation Code Description Data Vivian rce(s) Supporting Document(s) CBC W/AUTOMATED DIFF [facility] COMPLETE BLOOD COUNT Leukocytes [#/volume] in Blood by Automated count 11.9 10^3/uL 4.2 - 11.0 H [facility] Erythrocytes [#/volume] in Blood by Automated count 4.18 10^6/uL 4. 20 - 5.40 L [facility] Hemoglobin [Mass/volume] in Blood 13.1 g/dL 12.0 - 16.0 [facility] Hematocrit [Volume Fraction] of Blood by Automated count 39.7 % 3 7.0 - 47.0 [facility] Erythrocyte mean corpuscular volume [Entitic volume] by Auto mated count 95.0 fL 81.0 - 101 [facility] Erythrocyte mean corpuscular hemoglobin [Entitic mass] by Automated count 31.3 pg 27.0 - 34.0 [facility] Erythrocyte mean corpuscular hemoglobin concentration [Mass/volume] by Automated count 33.0 g/dL 31.0 - 36.0 [facility] Erythrocyte distribution width [Ratio] by Automated count 17.5 % 11.5 - 14.5 H [facility] Platelets [#/volume] in Blood by Automated count 175 10^3/uL 150 - 45 0 [facility] Platelet mean volume [Entitic volume] in Blood by Automated count 12.5 fL 7.4 - 10.4 H [facility] Neutrophils/100 leukocytes in Blood by Automated count 84.6 % 37. 0 - 80.0 H [facility] Lymphocytes/100 leukocytes in Blood by Manual count 7.4 % 25.0 - 40.0 L [facility] Monocytes/100 leukocytes in Blood by Automated count 7.6 % 3.0 - 8.0 [facility] Eosinophils/100 leukocytes in Blood by Automated count 0.0 % 0.0 - 7.0 [facility] Basophils/100 leukocytes in Blood by Automated count 0.1 % 0.0 - 2.5 [facility] %IG 0.3 % 0.0 - 0.0 [facility] %NRBC 0.0 % 0.0 - 0.0 [facility] al Neutrophils [#/volume] in Blood by Automated count 10.08 10^3/uL 2. 00 - 6.90 H [facility] Lymphocytes [#/volume] in Blood by Automated count 0.88 10^3/uL 0.60 - 3.40 [facility] Monocytes [#/volume] in Blood by Automated count 0.90 10^3/uL 0.00 - 0.90 [facility] Eosinophils [#/volume] in Blood by Automated count 0.00 10^3/uL 0.00 - 0.70 [facility] Basophils [#/volume] in Blood by Automated count 0.01 10^3/uL 0.00 - 0.20 [facility] #IG 0.04 10^3/uL 0.00 - 0.10 [facility] #NRBC 0.00 10^3/uL 0.00 - 0.00 [facility] MANUAL DIFF NOT INDICATED [facility] RBC MORPH NOT INDICATED [facility] spital ID Date Data Source [id number] 03/25/2020 07:31:00 AM EST [facility] Name Value Range Interpretation Code Description Data Vivian rce(s) Supporting Document(s) COMPREHENSIVE METABOLIC PANEL [facility] COMPREHENSIVE METABOLIC PANEL Sodium [Moles/volume] in Serum or Plasma 142 mEq/L 134 - 153 [facility] Potassium [Moles/volume] in Serum or Plasma 4.4 mEq/L 3.6 - 5.0 [facility] Chloride [Moles/volume] in Serum or Plasma 97 mEq/L 98 - 107 L [facility] Carbon dioxide, total [Moles/volume] in Serum or Plasma 39 MEQ/L 22 - 30 H [facility] Glucose [Mass/volume] in Serum or Plasma 330 MG/DL 65 - 110 H [facility] BUN 32 MG/DL 7 - 21 H [facility] Creatinine [Mass/volume] in Serum or Plasma 1.3 MG/DL 0.7 - 1.5 [facility] BUN/CREAT 25 8 - 27 [facility] al Protein [Mass/volume] in Serum or Plasma 6.2 G/DL 6.3 - 8.2 L [facility] Albumin [Mass/volume] in Serum or Plasma 4.1 G/DL 3.9 - 5.0 [facility] Globulin [Mass/volume] in Serum by calculation 2.1 GM/DL 2.4 - 3.2 L [facility] A/G RATIO 2.0 0.8 - 2.0 [facility] Calcium [Mass/volume] in Serum or Plasma 9.8 MG/DL 8.4 - 10.2 [facility] Bilirubin.total [Mass/volume] in Serum or Plasma 1.1 MG/DL 0.2 - 1.3 [facility] Alkaline phosphatase [Enzymatic activity/volume] in Serum or Plasma 244 U/L 38 - 126 H [facility] Aspartate aminotransferase [Enzymatic activity/volume] in Serum or Plasma 27 U/L 5 - 40 [facility] Alanine aminotransferase [Enzymatic activity/volume] in Seru m or Plasma 17 U/L 7 - 56 [facility] Anion gap 3 in Serum or Plasma 6.0 mmol/L 8.0 - 16.0 L [facility] [address] [facility] 42 mL/min [facility] AFR AMER GFR >60 [facility] Male GFR In terprentation [...] >32 mL/min Normal ID Date Data Source [id number] 03/25/2020 06:45:00 AM [facility] Name Value Range Interpretation Code Description Data Vivian rce(s) Supporting Document(s) Prothrombin time (PT) 28.2 SECONDS 11.0 - 15.5 [facility] INR in Platelet poor plasma by Coagulation assay 2.60 0.93 - 1. 23 H [facility] \\BLDo\\INR INTERPRETATION\\BLDx\\ Therapeutic range for Coumadin and related oral anticoagulants. - International Normalized Ratio (INR): 2.0 - 3.0 for Venous Thrombosis, Pulmonary Embolus, Tissue heart valves, Acute [place], Atrial Fibrillation, Valvular heart disease and recurrent Systemic Embolism. -International Normalized Ratio (INR): 2.5 - 3.5 for Mechanical Prosthetic valve. ID Date Data Source [id number] 03/24/2020 07:38:00 [place] [address] RESPIRATORY CARE REPORT ==== ---------NAME------- NUMBER SEX AGE ADMIT DISC. XRAY# F/C BRENNON Medina [id number] F 80 03/23/20 [id number] O/P DATE OF : 1940 M/R# [id number] #: [id number] CCU1 LOCATION: EMERGENCY DEPT EKG [id number] COMPLET E:03/24/20 01:08 GLEN[place] [id number] PHYSICIAN: MANUEL CHAVEZ Name Value Range Interpretation Code Description Data Vivian rce(s) Supporting Document(s) ID Date Data Source [id number] 03/24/2020 01:37:00 [place] [address] HISTORY AND PHYSICALNAME: ANNA Medina ROOM#: [id number] OF : 1940 MR#: [id number] PHYS: [facility] Sotomayor MD, PC DATE: 03/23/20CHIEF [...] of hysterectomy 5. Cardiac pacemakerHOME MEDICATIONS: [address] [place] [address] HISTORY AND PHYSICALNAME: ANNA Medina ROOM#: [id number] OF : 1940 MR#: [id number] PHYS: [facility]ivar Sotomayor MD, PC DATE: 03/23/20 [...] pressure is 155/68. Pulse 61. Respirations 20. Y2uvtneqsivr on 2 liters is 92%.HEENT: Pupils equal [...] retraction.HEART: Regular.ABDOMEN: Benign. Bowel sounds positive. [address] [place] [address] HISTORY AND PHYSICALNAME: ANNA Medina ROOM#: [id number] OF : 1940 M R#: [id number] PHYS: [facility]ar Sotomayor MD, PC DATE: 03/23/20GU/RECTAL: [...] rce(s) Supporting Document(s) ID Date Data Source [id number] 03/24/2020 03:46:00 [place] [address] PHONE: [phone] FAX: [phone] Name .................. : ANNA ALLEN Carol Acct Number.................. : [id number] ROOM. ................. : CCU1 MR Number ................... : [id number] Stay type ............. : O/P Discharge Date......... ... : Admit Date ......... : 03/23/20 Admit Phys .................... : MANUEL ALIZE Date of ....... : 1940 Family Phys ................... : NAUN MTZ Phone .................. : [phone] Age ................................ : 80 Film# .................. .:[id number] Sex ................................. : F Unsigned transcriptions are preliminary reports and do not represent a medical or legal document CHEST PORTABLE [id number] COMPLETE:03/23/20 15:25 [facility] [place] [address] Reason(s): CHF PORTABLE CHEST X- RAY: INDICATION: [...] rce(s) Supporting Document(s) ID Date Data Source [id number] 03/24/2020 09:28:00 AM EST [facility] (Bolivar Sotomayor MD) Name Value Range Interpretation Code Description Data Vivian rce(s) Supporting Document(s) Troponin T.cardiac [Mass/volume] in Serum or Plasma Laborato ry test result 0.00-0.10 [facility] (Bolivar Sotomayor MD) TROPONIN T 0.1 ng/ml Recommended as the clinical th reshold value for Troponin T. ID Date Data Source [id number] 03/24/2020 10:11:00 AM EST [facility] Name Value Range Interpretation Code Description Data Vivian rce(s) Supporting Document(s) TROPONIN T <0.01 NG/ML 0.00 - 0.10 [facility] TROPONIN T0.1 ng/ml Recommended as the c linical threshold value forTroponin T. ID Date Data Source [id number] 03/24/2020 03:51:00 AM EST [facility] (Bolivar Sotomayor MD) Name Value Range Interpretation Code Description Data Vivian rce(s) Supporting Document(s) Troponin T.cardiac [Mass/volume] in Serum or Plasma Laborato ry test result 0.00-0.10 [facility] (Bolivar Sotomayor MD) TROPONIN T 0.1 ng/ml Recommended as the clinical th reshold value for Troponin T. ID Date Data Source [id number] 03/24/2020 03:51:00 AM EST [facility] (Bolivar Sotomayor [...] (Bolivar Sotomayor MD) ID Date Data Source [id number] 03/24/2020 03:51:00 AM EST [facility] (Bolivar Sotomayor [...] (Bolivar Sotomayor MD) ID Date Data Source [id number] 03/24/2020 03:51:00 AM EST [facility] (Bolivar Sotomayor MD) Name Value Range Interpretation Code Description Data Vivian rce(s) Supporting Document(s) Magnesium [Mass/volume] in Serum or Plasma 2.0 mg/dL 1.7-2.2 [facility] (Bolivar Sotomayor MD) ID Date Data Source [id number] 03/24/2020 03:51:00 AM EST [facility] (Bolivar Sotomayor [...] Thrombosis, Pulmonary Embolus, Tissue heart valves, Acute [place], Atrial Fibrillation, Valvular heart disease and recurrent Systemic Embolism. -International Normalized Ratio (INR): 2 .5 - 3.5 for Mechanical Prosthetic valve. ID Date Data Source [id number] 03/24/2020 03:51:00 AM EST [facility] (Bolivar Sotomayor [...] (Bolivar Sotomayor MD) ID Date Data Source [id number] 03/24/2020 05:01:00 AM [facility] Value Range Interpretation Code Description Data Vivian rce(s) Supporting Document(s) Thyrotropin [Units/volume] in Serum or Plasma by Detec tion limit <= 0.05 mIU/L 2.39 uIU/mL 0.47 - 5.01 [facility] ID Date Data Source [id number] 03/24/2020 05:01:00 AM [facility] Value Range Interpretation Code Description Data Vivian rce(s) Supporting Document(s) BNP 7929 PG/ML 0 - [address] [facility] ID Date Data Source [id number] 03/24/2020 05:01:00 AM [facility] Value Range Interpretation Code Description Data Vivian rce(s) Supporting Document(s) Thyroxine (T4) free index in Serum or Plasma by calculation 1.43 NG/DL 0.93 - 1.70 [facility] ID Date Data Source [id number] 03/24/2020 05:01:00 AM EST [facility] Name Value Range Interpretation Code Description Data Vivian rce(s) Supporting Document(s) TROPONIN T <0.01 NG/ML 0.00 - 0.10 [facility] TROPONIN T0.1 ng/ml Recommended as the c linical threshold value forTroponin T. ID Date Data Source [id number] 03/24/2020 04:21:00 AM [facility] Name Value Range Interpretation Code Description Data Vivian rce(s) Supporting Document(s) BASIC METABOLIC PANEL [facility] BASIC METABOLIC PANEL Sodium [Moles/volume] in Serum or Plasma 140 mEq/L 134 - 153 [facility] Potassium [Moles/volume] in Serum or Plasma 3.4 mEq/L 3.6 - 5.0 L [facility] Chloride [Moles/volume] in Serum or Plasma 97 mEq/L 98 - 107 L [facility] Carbon dioxide, total [Moles/volume] in Serum or Plasma 37 MEQ/L 22 - 30 H [facility] Glucose [Mass/volume] in Serum or Plasma 216 MG/DL 65 - 110 H [facility] BUN 27 MG/DL 7 - 21 H [facility] al Creatinine [Mass/volume] in Serum or Plasma 1.3 MG/DL 0.7 - 1.5 [facility] BUN/CREAT 21 8 - 27 [facility] Calcium [Mass/volume] in Serum or Plasma 8.8 MG/DL 8.4 - 10.2 [facility] Anion gap 3 in Serum or Plasma 6.0 mmol/L 8.0 - 16.0 L [facility] [address] [facility] A[facility] AMER GFR >60 [facility] NON-AA GFR 42 mL/min [facility] Male GFR Inter prentation 20-49 yrs [...] >32 mL/min Normal ID Date Data Source [id number] 03/24/2020 04:21:00 AM [facility] Name Value Range Interpretation Code Description Data Vivian rce(s) Supporting Document(s) Magnesium [Mass/volume] in Serum or Plasma 2.0 MG/DL 1.7 - 2.2 [facility] ID Date Data Source [id number] 03/24/2020 04:04:00 AM [facility] Name Value Range Interpretation Code Description Data Vivian rce(s) Supporting Document(s) Prothrombin time (PT) 23.5 SECONDS 11.0 - 15.5 [facility] INR in Platelet poor plasma by Coagulation assay 2.06 0.93 - 1. 23 H [facility] \\BLDo\\INR INTERPRETATION\\BLDx\\ Therapeutic range for Coumadin and related oral anticoagulants. - International Normalized Ratio (INR): 2.0 - 3.0 for Venous Thrombosis, Pulmonary Embolus, Tissue heart valves, Acute [place], Atrial Fibrillation, Valvular heart disease and recurrent Systemic Embolism. -International Normalized Ratio (INR): 2.5 - 3.5 for Mechanical Prosthetic valve. ID Date Data Source [id number] 03/24/2020 03:56:00 AM [facility] Name Value Range Interpretation Code Description Data Vivian rce(s) Supporting Document(s) CBC W/AUTOMATED DIFF [facility] COMPLETE BLOOD COUNT Leukocytes [#/volume] in Blood by Automated count 9.0 10^3/uL 4.2 - 1 1.0 [facility] Erythrocytes [#/volume] in Blood by Automated count 4.16 10^6/uL 4. 20 - 5.40 L [facility] Hemoglobin [Mass/volume] in Blood 12.9 g/dL 12.0 - 16.0 [facility] Hematocrit [Volume Fraction] of Blood by Automated count 39.1 % 3 7.0 - 47.0 [facility] Erythrocyte mean corpuscular volume [Entitic volume] by Auto mated count 94.0 fL 81.0 - 101 [facility] Erythrocyte mean corpuscular hemoglobin [Entitic mass] by Automated count 31.0 pg 27.0 - 34.0 [facility] Erythrocyte mean corpuscular hemoglobin concentration [Mass/volume] by Automated count 33.0 g/dL 31.0 - 36.0 [facility] Erythrocyte distribution width [Ratio] by Automated count 17.4 % 11.5 - 14.5 H [facility] Platelets [#/volume] in Blood by Automated count 152 10^3/uL 150 - 45 0 [facility] Platelet mean volume [Entitic volume] in Blood by Automated count 11.5 fL 7.4 - 10.4 H [facility] Neutrophils/100 leukocytes in Blood by Automated count 90.6 % 37. 0 - 80.0 H [facility] Lymphocytes/100 leukocytes in Blood by Manual count 8.0 % 25.0 - 40.0 L [facility] Monocytes/100 leukocytes in Blood by Automated count 0.8 % 3.0 - 8.0 L [facility] Eosinophils/100 leukocytes in Blood by Automated count 0.3 % 0.0 - 7.0 [facility] Basophils/100 leukocytes in Blood by Automated count 0.0 % 0.0 - 2.5 [facility] %IG 0.3 % 0.0 - 0.[address] [facility] %NRBC 0.0 % 0.0 - 0.0 [facility] al Neutrophils [#/volume] in Blood by Automated count 8.15 10^3/uL 2.00 - 6.90 H [facility] Lymphocytes [#/volume] in Blood by Automated count 0.72 10^3/uL 0.60 - 3.40 [facility] Monocytes [#/volume] in Blood by Automated count 0.07 10^3/uL 0.00 - 0.90 [facility] Eosinophils [#/volume] in Blood by Automated count 0.03 10^3/uL 0.00 - 0.70 [facility] Basophils [#/volume] in Blood by Automated count 0.00 10^3/uL 0.00 - 0.20 [facility] #IG 0.03 10^3/uL 0.00 - 0.10 [facility] #NRBC 0.00 10^3/uL 0.00 - 0.00 [facility] MANUAL DIFF NOT INDICATED [facility] RBC MORPH NOT INDICATED [facility] ID Date Data Source [id number] 03/24/2020 12:38:00 AM EST [facility] (Bolivar Sotomayor MD) Name Value Range Interpretation Code Description Data Vivian rce(s) Supporting Document(s) Potassium [Moles/volume] in Serum or Plasma 3.7 meq/L 3.6-5.0 [facility] (Bolivar Sotomayor MD) can run on blood just drawn for mag leve l ID Date Data Source [id number] 03/24/2020 12:59:00 AM EST [facility] Name Value Range Interpretation Code Description Data Vivian rce(s) Supporting Document(s) Potassium [Moles/volume] in Serum or Plasma 3.7 mEq/L 3.6 - 5.0 [facility] ID Date Data Source [id number] 03/23/2020 10:00:00 PM EST [facility] (Bolivar Sotomayor MD) Name Value Range Interpretation Code Description Data Vivian rce(s) Supporting Document(s) Magnesium [Mass/volume] in Serum or Plasma 2.1 mg/dL 1.7-2.2 [facility] (Bolivar Sotomayor MD) ID Date Data Source [id number] 03/23/2020 11:12:00 PM [facility] Name Value Range Interpretation Code Description Data Vivian rce(s) Supporting Document(s) Magnesium [Mass/volume] in Serum or Plasma 2.1 MG/DL 1.7 - 2.2 [facility] ID Date Data Source [id number] 03/23/2020 09:08:00 PM EST [facility] (Bolivar Sotomayor MD) Name Value Range Interpretation Code Description Data Vivian rce(s) Supporting Document(s) Troponin T.cardiac [Mass/volume] in Serum or Plasma Laborato ry test result 0.00-0.10 [facility] (Bolivar Sotomayor MD) TROPONIN T 0.1 ng/ml Recommended as the clinical th reshold value for Troponin T. ID Date Data Source [id number] 03/23/2020 09:51:00 PM [facility] Name Value Range Interpretation Code Description Data Vivian rce(s) Supporting Document(s) TROPONIN T <0.01 NG/ML 0.00 - 0.10 [facility] TROPONIN T0.1 ng/ml Recommended as the c linical threshold value forTroponin T. ID Date Data Source [id number] 03/23/2020 02:25:00 PM [facility] 1 OrderSheet [facility] Emergency Department [address] [place] [address] Phone #: ext- [phone] 03/23/2020 14:17 Patient: JOY DENT Sex: F : 1940 Age: 80yWEIGHT:101.1 kg (M) HEIGHT:61 inches (S) BMI:42.1 STATUS:NoALLERGIES: Aloe, PCN, PenicillinsCHIEF COMPLAINT: dyspnea, COPD, CHFDIAGNOSIS: Congestive heart failureLAB ORDERSOrder Description Priority Entered Acknowledged InitialedCBC w Diff STAT 14:44 03/23/2020 14:49 Siria Mccarthy respiratory therapy assistantGiovanni Hatch M.D.; Ohif8KNM STAT 14:44 03/23/2020 14:49 Siria Mccarthy respiratory therapy assistantGiovanni Hatch M.D.; Nraw6Hqndfa STAT 14:44 03/23/2020 14:49 Alex Evans [facility] Giovanni Hatch M.D.; Tfya0RC/PTT STAT 14:44 03/23/2020 14:49 Siria Mccarthy respiratory therapy assistantGiovanni Hatch M.D.; Zyjt9Hjryqepz-R STAT 14:44 03/23/2020 14:49 Vineet [facility]arthy[facility] Shawrespiratory therapy assistantGiovanni Hatch M.D.; Vbic7DGL STAT 14:44 03/23/2020 14:49 Siria Mccarthy respiratory therapy assistantGiovanni Hatch M.D.; Faxv7VFPJKGVZDZ STUDY ORDERSOrder Description Priority Entered Acknowledged InitialedChest Portable 1 STAT 14:44 03/23/2020 14:49 Kp Long (Oxygen? Siria Evans R.N.(Yes)) Brenda; Reason for Study: CHF, COPD, Shortness of BreathMEDICATION/IV/DRIP/FLUID ORDERSOrder Description Priority Entered Acknowledged InitialedDuoNeb Neb Tx 3 14:44 03/23/2020 15:08 Chinmay Long Riccardo John R.N. M.D.; 2 OrderSheet [facility] Emergency Department [address] [place] [address] Phone #: ext- [phone] 03/23/2020 14:17 Patient: JOY DENT Sex: F : 1940 Age: 80ySOLU-Medrol 125 14:44 03/23/2020 15:04 Dorismg IV X1 Dose: 125 Siria Evans RNmg (X1) M.D.;NitroGLYCERIN 15:11 03/23/2020 15:25 Aleena GuyaTopical Ointment Siria Evans RN0.5 in. M.DMarifer;Lasix IVP 40 mg 15:11 03/23/2020 15:25 Sol Guy Riccardo RN M.D.;NitroGLYCERIN 17:07 03/23/2020 17:07 EthanTopical Ointment Srinivas Long R.N.; Srinivas Macias1 in. Verbal order per; Siria Evans M.D.GENERAL ORDERSOrder Description Prior ity Entered Acknowledged InitialedBlood Pressure 14:44 03/23/2020 14:49 BurnhamMonitor Siria Evans respiratory therapy assistantGiovanni M.D.; Olps3Ikcxhwv Monitor 14:44 03/23/2020 14:49 Alex(continuous) Siria Evans respiratory therapy assistantGiovanni M.D.; Qcog1OEQ 14:44 03/23/2020 14:49 [place] Vineet EvansSelect [facility] Shawrespiratory therapy assistantGiovanni M.D.; Pvga8EJH 14:44 03/23/2020 14:49 [place] Price Siria respiratory therapy assistantGiovanni M.D.; Apuu5Fteubu Old EKG 14:44 03/23/2020 14:49 [place] Vineet Evansdo respiratory therapy assistantGiovanni M.D.; Alpf0Xgytss Old Records 14:44 03/23/2020 14:49 [place] Price Siria respiratory therapy assistant, Giovanni OTERO M.D.; Uiym5Ncxmbf (2 L/min) 14:44 03/23/2020 14:49 Alex(NC) (Titrate to O2 Price Siria respiratory therapy assistantGiovanni ERSat >92%) Brenda; Rcsh9Jabmjr titrate to 14:44 03/23/2020 14:49 Patrmmg09% Vineet Evansdo respiratory therapy assistantGiovanni M.D.; Fcgi7Ufzic oximeter 14:44 03/23/2020 14:49 [place](Continuous) Siria Evans respiratory therapy assistantJemGiovanni ER 3 OrderSheet [facility] Emergency Department [address] [place] [address] Phone #: ext- [phone] 03/23/2020 14:17 Patient: JOY DENT Sex: F : 1940 Age: 80y M.D.; Tfod2Clptou Lock 14:44 03/23/2020 14:50 Price Long Riccardo John R.N. M.D.;Vitals 14:44 03/23/2020 14:49 Siria Mccarthy respiratory therapy assistantGiovanni M.D.; Mtgs8Vliiseu - 16:48 03/23/2020 16:56 BurnhamCardiologist Siria Evans respiratory therapy assistantGiovanni Hatch M.D.; Tech1[Electronically signed by Srinivas Long R.N. (20:25 03/23/2020)][Electronically signed by Siria Evans M.D. (20:36 03/23/2020)][Electronically locked by Srinivas Long R.N. (20:25 03/23/2020)] Name Value Range Interpretation Code Description Data Vivian rce(s) Supporting Document(s) ID Date Data Source [id number] 03/23/2020 02:25:00 PM EST [facility] 1 Medication Reconciliation Report [facility] Emergency Department [address] [place] [address] Phone #: ext- [phone] 03/23/2020 14:17 Patient: JOY DENT Sex: F : 1940 Age: 80yWeight: 101.1 kgHeight/Length: 61 in.BMI: 42.1ALLERGIES: Altin, PCN, PenicillinsThe patient's Home Medications are listed [...] 1 tablet, daily 2 Medication Reconciliation Report [facility] Emergency Department [address] [place] [address] Phone #: ext- [phone] 03/23/2020 14:17 [id number] Sex: [facility] : 1940 Age: 80y Vitamin [...] rce(s) Supporting Document(s) ID Date Data Source [id number] 03/23/2020 02:25:00 PM EST [facility] 1 Medication Administration Record [facility] Emergency Department [address] [place] [address] Phone #: ext- [phone] 03/23/2020 14:17 Patient: JOY DENT Sex: F : 1940 Age: 80yWeight: 101.1 kgHeight/Length: 61 inBMI: 42.1ALLERGIES: Aloe, PCN, Penicillins Date/Time Medication Administered Medication OrderedGiven DUONEB [NEB TX] DuoNeb Neb Tx 3 mL15:08 03/23/2020 Dose: 1 unit dose Nebulizer Srinivas Duncan R.N.Given SOLU-MEDROL [IVP] SOLU-Medrol 125 mg IV X1 Dose:15:00 03/23/2020 (METHYLPREDNISOLONE SODIUM 125 mg (X1)Nancy Rose RN SUCC) Dose: 125 mg IVP Site: #1 right forearmGiven NITROGLYCERIN [TOPICAL OINTMENT] NitroGLYCERIN Znyowpt51:25 03/23/2020 Dose: 0.5 in. Topical Ointment 0.5 in.Sol Guy RNGiven LASIX [IVP] Lasix IVP 40 mg15:25 03/23/2020 Dose: 40 mg IVPBSol lyles RN Site: #1 right forearmGiven NITROGLYCERIN [TOPICAL OINTMENT] NitroGLYCERIN Nqvclsw15:07 03/23/2020 Dose: 1 in. Ointment Topical Ointment 1 in.Srinivas Long R.N. Name Value Range Interpretation Code Description Data Vivian rce(s) Supporting Document(s) ID Date Data Source [id number] 03/23/2020 02:25:00 PM EST [facility] 1 General Instructions [facility] Emergency Department [address] [place] [address] Phone #: ext- [phone] 03/23/2020 14:17 Patient: JOY DENT Sex: F : 1940 Age: 80yAcute mild systolic, left ventricular congestive heart failure.(Electronically signed by Siria Evans M.D. 03/23/2020 20:36) Name Value Range Interpretation Code Description Data Vivian rce(s) Supporting Document(s) ID Date Data Source [id number] 03/23/2020 02:25:00 PM EST [facility] 1 Clinical Report - Nurses [facility] Emergency Department [address] [place] [address] Phone #: [phone]- [phone] 03/23/2020 14:17 Patient: JOY DENT Sex: F [...] Rose RN.Allergies 2 Clinical Report - Nurses [facility] Emergency Department [address] [place] [address] Phone #: ext- [phone] 03/23/2020 14:17 [id number] Sex[facility] F : 1940 Age: 80yPCN. --14:21 03/23/20 Xiao Woody R.N.Aloe. --14:21 03/23/20 Xiao Woody R.N.Penicillins. --14:36 03/23/20 Nancy Rose RN.PROBLEMS:Hypercholesterolemia. --14:03/23/20 Xiao Woody R.N.Hypertension.Congestive Heart Failure.COPD - Chronic Obstructive Pulmonary Disease. --15:03/23/20 Siria Evans M.D.The following entry was modified by Siria Evans M.D., 15:03/23/20Hypertension. --14:03/23/20 Xiao Woody R.N.The following entry was [...] integrity risk 3 Clinical Report - Nurses [facility] Emergency Department [address] [place] [address] Phone #: ext- [phone] 03/23/2020 14:17 Patient: JOY DENT Sex: F : 1940 Age: 80y identified. [...] Patient ready for evaluation- ED physician notified. --14:03/23/20Xiao Woody R.N. EKG time: (14:23 03/23/2020). EKG was performed by a tech and shown to the ED physician. . --14:27 03/23/20 [facility] Giovanni Hatch ER TechThomas 14:57 03/23/2020 Site #1 started via IV [...] reaction and precautions. Verbalizes understanding. --15:04 03/23/20 Nancy Rose RN 15:08 03/23/2020 Duoneb Neb TX Nebulizer 1 unit dose given. --15:08 03/23/20 Srinivas Long R.N. Reassurance given to the patient. Side rails up x 2. Bed placed in lowest position. --15:12 03/23/20 Srinivas Long R.N. 15:08 03/23/20. BP: 152/50. MAP: 84. HR: 68. RR: 14. O2 saturation: 99% at 2 liters/minute. Temp: deferred. Pain level now: 0/10. --15:12 03/23/20 Srinivas Long R.N. 15:25 03/23/2020 NITROGLYCERIN Topical 0.5 inch given Applied to the right upper arm. Allergies verified and confirmed 5 rights. Information reviewed with patient including reason for taking this 4 Clinical Report - Nurses [facility] Emergency Department [address] [place] [address] Phone #: ext- [phone] 03/23/2020 14:17 [id number] Sex: F : 1940 Age: 80y medication. Verbalizes understanding. --15:25 03/23/20 Sol Guy RN 15:25 03/23/2020 Lasix IVP 40 mg given via site [...] deferred. Pain level now: 0/10. --18:24 03/23/20 [place] respiratory therapy assistant, Giovanni, ER Tech1 Reassurance given to the [...] Long R.N. 5 Clinical Report - Nurses [facility] Emergency Department [address] [place] [address] Phone #: ext- [phone] 03/23/2020 14:17 Patient: JOY DENT Sex: F : 1940 Age: 80y Name Value Range Interpretation Code Description Data Vivian rce(s) Supporting Document(s) ID Date Data Source [id number] 03/23/2020 02:25:00 PM EST [facility] 1 Clinical Report - Physicians/Mid Levels [facility] Emergency Department [address] [place] [address] Phone #: ext- [phone] 03/23/2020 14:17 Patient: JOY EDNT Sex: F : 1940 Age: 80y Time [...] Cholecystectomy. 2 Clinical Report - Physicians/Mid Levels [facility] Emergency Department [address] [place] [address] Phone #: ext- [phone] 03/23/2020 14:17 Patient: JOY DENT Sex: F : 1940 Age: 80y Hysterectomy. [...] normal. 3 Clinical Report - Physicians/Mid Levels [facility] Emergency Department [address] [place] [address] Phone #: ext- [phone] 03/23/2020 14:17 Patient: [...] PANEL 4 Clinical Report - Physicians/Mid Levels [facility] Emergency Department [address] [place] [address] Phone #: ext- [phone] 03/23/2020 14:17 [id number] Sex: F : 1940 Age: 80y SODIUM [...] Male GFR Interprentation 20-49 yrs >60 mL/min Evkwgq79-76 yrs >56 mL/min Normal 60-69 yrs >49 mL/min Normal 70-79yrs>42 mL/min Normal 80 and above >35 mL/min Normal Female GFRInterpretation 20-39 yrs >60 mL/min Normal 40-49 yrs >58 mL/minNormal 50-59 yrs >51 mL/min Normal 60-69 yrs >45 mL/min Kbumul18-61 yrs >39 mL/min Normal 80 and above [...] VenousThrombosis, Pulmonary Embolus, Tissue heart valves, Acute [place] Atrial Fibrillation, Valvular heart diseaseand recurrent Systemic Embolism. -International Normalized Ratio (INR): 2.5 - 3.5 forMechanical Prosthetic valve.Troponin-T: (KATELYN: 03/23/2020 14:57) ( [facility] 03/23/[place] 15:33) Final results Test Result Flag Units (Reference) TROPONIN T <0.01 NG/ML (0.00 - 0.10) TROPONIN T0.1 ng/ml Recommended as the clinical threshold value forTroponin T.BNP: (KATELYN: 03/23/2020 14:57) ( [facility] 03/23/2020 15:37) Final results Test Result Flag Units (Reference) BNP 5816 H PG/ML (0 - 450)Chest Portable 1 View: (KATELYN: 03/23/2020 14:44) ( [facility] 03/[facility] 15:25[facility] In [facility] PORTABLE 5 Clinical Report - Physicians/Mid Levels [facility] Emergency Department [address] [place] [address] Phone #: [phone]- [phone] 03/23/2020 14:17 Patient: JOY DENT Sex: F : 1940 Age: 80y Reason(s): CHF TRANSPORTATION: P IV? O2? Oxygen?(Yes) Room: E.PROGRESS AND PROCEDURESCourse of Care: 16:43 03/23/20. workup all in and reviewed, K slightly up, BNP elevated, 5816 today vs.3660 on 05-30-19, CXR shows CHF, we're treating accordingly, pt doing better, case discussed w , her cone classifier tender, who will admit 17:12 03/23/20. Joselin Alegria, SUPERVIS[employer] hospitalist for Dr. Sotomayor, called back and [...] rce(s) Supporting Document(s) ID Date Data Source [id number] 03/23/2020 02:25:00 PM [facility] for JOY DENT RN: [id number] VisitID: [id number] Date: 17:22Medication reconciliation request foaxed to remote [employer].(Electronically signed by Ramses Richard - 03/23/2020 17:22) Name Value Range Interpretation Code Description Data Vivian rce(s) Supporting Document(s) ID Date Data Source [id number] 03/23/2020 03:37:00 PM [facility] Name Value Range Interpretation Code Description Data Vivian rce(s) Supporting Document(s) Lipase [Enzymatic activity/volume] in Serum or Plasma 18 U/L 13 - 60 [facility] ID Date Data Source [id number] 03/23/2020 03:37:00 PM EST [facility] Name Value Range Interpretation Code Description Data Vivian rce(s) Supporting Document(s) COMPREHENSIVE METABOLIC PANEL [facility] COMPREHENSIVE METABOLIC PANEL Sodium [Moles/volume] in Serum or Plasma 139 mEq/L 134 - 153 [facility] Potassium [Moles/volume] in Serum or Plasma 5.3 mEq/L 3.6 - 5.0 H [facility] Chloride [Moles/volume] in Serum or Plasma 95 mEq/L 98 - 107 L [facility] Carbon dioxide, total [Moles/volume] in Serum or Plasma 38 MEQ/L 22 - 30 H [facility] Glucose [Mass/volume] in Serum or Plasma 149 MG/DL 65 - 110 H [facility] BUN 25 MG/DL 7 [facility] [address] [facility] Creatinine [Mass/volume] in Serum or Plasma 1.3 MG/DL 0.7 - 1.5 [facility] BUN/CREAT 19 8 - 27 [facility] al Protein [Mass/volume] in Serum or Plasma 6.0 G/DL 6.3 - 8.2 L [facility] Albumin [Mass/volume] in Serum or Plasma 3.7 G/DL 3.9 - 5.0 L [facility] Globulin [Mass/volume] in Serum by calculation 2.3 GM/DL 2.4 - 3.2 L [facility] A/G RATIO 1.6 0.8 - 2.0 [facility] Calcium [Mass/volume] in Serum or Plasma 9.0 MG/DL 8.4 - 10.2 [facility] Bilirubin.total [Mass/volume] in Serum or Plasma 1.5 MG/DL 0.2 - 1.3 H [facility] Alkaline phosphatase [Enzymatic activity/volume] in Serum or Plasma 237 U/L 38 - 126 H [facility] Aspartate aminotransferase [Enzymatic activity/volume] in Serum or Plasma 36 U/L 5 - 40 [facility] Alanine aminotransferase [Enzymatic activity/volume] in Seru m or Plasma 15 U/L 7 - 56 [facility] Anion gap 3 in Serum or Plasma 6.0 mmol/L 8.0 - 16.0 L [facility] AGE 80 yrs [facility] NON-AA GFR 42 mL/min [facility] iggy AFR AMER GFR >60 [facility] Male GFR In terprentation [...] >32 mL/min Normal ID Date Data Source [id number] 03/23/2020 03:37:00 PM [facility] Name Value Range Interpretation Code Description Data Ivvian rce(s) Supporting Document(s) BNP 5816 PG/ML 0 - 450 H [facility] ID Date Data Source [id number] 03/23/2020 03:33:00 PM [facility] Name Value Range Interpretation Code Description Data Vivian rce(s) Supporting Document(s) TROPONIN T <0.01 NG/ML 0.00 - 0.10 [facility] TROPONIN T0.1 ng/ml Recommended as the c linical threshold value forTroponin T. ID Date Data Source [id number] 03/23/2020 03:19:00 PM [facility] Name Value Range Interpretation Code Description Data Vivian rce(s) Supporting Document(s) Prothrombin time (PT) 26.5 SECONDS 11.0 - 15.5 H [facility] INR in Platelet poor plasma by Coagulation assay 2.40 0.93 - 1. 23 H [facility] aPTT in Blood by Coagulation assay 42.0 SECONDS 24.8 - 36.7 H [facility] \\BLDo\\INR INTERPRETATION\\BLDx\\ Therapeutic range for Coumadin and related oral anticoagulants. - International Normalized Ratio (INR): 2.0 - 3.0 for Venous Thrombosis, Pulmonary Embolus, Tissue heart valves, Acute [place] Atrial Fibrillation, Valvular heart disease and recurrent Systemic Embolism. - International Normalized Ratio (INR): 2.5 - 3.5 for Mechanical Prosthetic valve. ID Date Data Source [id number] 03/23/2020 03:07:00 PM EST [facility] Name Value Range Interpretation Code Description Data Vivian rce(s) Supporting Document(s) CBC W/AUTOMATED DIFF [facility] COMPLETE BLOOD COUNT Leukocytes [#/volume] in Blood by Automated count 8.4 10^3/uL 4.2 - 1 1.0 [facility] Erythrocytes [#/volume] in Blood by Automated count 4.36 10^6/uL 4. 20 - 5.40 [facility] Hemoglobin [Mass/volume] in Blood 13.7 g/dL 12.0 - 16.0 [facility] Hematocrit [Volume Fraction] of Blood by Automated count 41.3 % 3 7.0 - 47.0 [facility] Erythrocyte mean corpuscular volume [Entitic volume] by Auto mated count 94.7 fL 81.0 - 101 [facility] Erythrocyte mean corpuscular hemoglobin [Entitic mass] by Automated count 31.4 pg 27.0 - 34.0 [facility] Erythrocyte mean corpuscular hemoglobin concentration [Mass/volume] by Automated count 33.2 g/dL 31.0 - 36.0 [facility] Erythrocyte distribution width [Ratio] by Automated count 17.7 % 11.5 - 14.5 H [facility] Platelets [#/volume] in Blood by Automated count 153 10^3/uL 150 - 45 0 [facility] Platelet mean volume [Entitic volume] in Blood by Automated count 11.6 fL 7.4 - 10.4 H [facility] Neutrophils/100 leukocytes in Blood by Automated count 74.0 % 37. 0 - 80.0 [facility] Lymphocytes/100 leukocytes in Blood by Manual count 13.7 % 25.0 - 40.0 L [facility] Monocytes/100 leukocytes in Blood by Automated count 8.5 % 3.0 - 8.0 H [facility] Eosinophils/100 leukocytes in Blood by Automated count 3.1 % 0.0 - 7.0 [facility] Basophils/100 leukocytes in Blood by Automated count 0.5 % 0.0 - 2.5 [facility] %IG 0.2 % 0.0 - 0.0 H [facility] %NRBC 0.0 % 0.0 [facility] 0.[facility] Neutrophils [#/volume] in Blood by Automated count 6.19 10^3/uL 2.00 - 6.90 [facility] Lymphocytes [#/volume] in Blood by Automated count 1.15 10^3/uL 0.60 - 3.40 [facility] Monocytes [#/volume] in Blood by Automated count 0.71 10^3/uL 0.00 - 0.90 [facility] Eosinophils [#/volume] in Blood by Automated count 0.26 10^3/uL 0.00 - 0.70 [facility] Basophils [#/volume] in Blood by Automated count 0.04 10^3/uL 0.00 - 0.20 [facility] #IG 0.02 10^3/uL 0.00 - 0.10 [facility] #NRBC 0.00 10^3/uL 0.00 - 0.00 [facility] MANUAL DIFF NOT INDICATED [facility] RBC MORPH NOT INDICATED [facility] ID Date Data Source [id number] 03/10/2020 10:57:00 AM EST [facility] Name Value Range Interpretation Code Description Data Vivian rce(s) Supporting Document(s) PT 25.4 SEC 10.0-14.0 Above high normal [facility] ([facility] NORMAL RANGES Routine Non- Anticoagulant Therapy = 0.9 - 1.1 Routine Anticoagulat Therapy = 2.0 - 3.0 High Risk Anticoagulant Therapy = 3.0 - 4.5 Inr 2.1 # 0.9-1.1 Above high normal [facility] ([facility] NORMAL RANGES Routine Non- Anticoagulant Therapy = 0.9 - 1.1 Routine Anticoagulat Therapy = 2.0 - 3.0 High Risk Anticoagulant Therapy = 3.0 - 4.5 Comment Laboratory test result [facility] ([facility] NORMAL RANGES Routine Non- Anticoagulant Therapy = 0.9 - 1.1 Routine Anticoagulat Therapy = 2.0 - 3.0 High Risk Anticoagulant Therapy = 3.0 - 4.5 Recommendations Laboratory test result [facility] ([facility] NORMAL RANGES Routine Non- Anticoagulant Therapy = 0.9 - 1.1 Routine Anticoagulat Therapy = 2.0 - 3.0 High Risk Anticoagulant Therapy = 3.0 - 4.5 ID Date Data Source [id number] 02/04/2020 11:16:00 AM EDT [facility] Name Value Range Interpretation Code Description Data Vivian rce(s) Supporting Document(s) Thyrotropin [Units/volume] in Serum or Plasma 3.625 ulU/mL 0.60-4.8 [facility] ID Date Data Source [id number] 02/04/2020 11:16:00 AM EDT [facility] ([facility] Name Value Range Interpretation Code Description Data Vivian rce(s) Supporting Document(s) Glucose [Mass/volume] in Serum or Plasma 96 mg/dL 70-110 [facility] ([facility] CLASSIFICATION CHOLESTEROL FO R [...] 8.0 % 4.40-6.10 Above high normal [facility] ([facility] CLASSIFICATION CHOLESTEROL FO R [...] 2-19 YEARS EXCLUSIVE. ID Date Data Source [id number] 02/04/2020 11:16:00 AM EDT [facility] ([facility] Name Value Range Interpretation Code Description Data Vivian rce(s) Supporting Document(s) Chol 88 mg/dL 0-200 [facility] ([facility] CLASSIFICATION CHOLESTEROL FO R ADULTS [...] YEARS EXCLUSIVE. Trig 87 mg/dL 40-200 [facility] ([facility] CLASSIFICATION CHOLESTEROL FO R ADULTS [...] Calc 75-129 Below low normal [facility] ( [facility] CLASSIFICATION CHOLESTEROL FO [...] 33 mg/dL 45-65 Below low normal [facility] ([facility] ) CLASSIFICATION CHOLESTEROL [...] YEARS EXCLUSIVE. Cho/HDL Ratio 2.7 CALC [facility] ([facility] CLASSIFICATION CHOLESTEROL FO R [...] 2-19 YEARS EXCLUSIVE. ID Date Data Source [id number] 02/04/2020 11:16:00 AM EDT [facility] ([facility] [employer] [facility] Name Value Range Interpretation Code Description Data Vivian rce(s) Supporting Document(s) Hemoglobin A1c/Hemoglobin.total in Blood 8.0 % 4.40-6.10 Above high normal [facility] ([facility] CLASSIFICATION CHOLESTEROL FO [...] 2-19 YEARS EXCLUSIVE. ID Date Data Source [id number] 02/04/2020 11:15:00 AM EDT [facility] ([facility] Name Value Range Interpretation Code Description Data Vivian rce(s) Supporting Document(s) PT 30.2 SEC 10.0-14.0 Above high normal [facility] ([facility] NORMAL RANGES Routine Non- Anticoagulant Therapy = 0.9 - 1.1 Routine Anticoagulat Therapy = 2.0 - 3.0 High Risk Anticoagulant Therapy = 3.0 - 4.5 Inr 2.5 # 0.9-1.1 Above high normal [facility] NORMAL RANGES Routine Non- Anticoagulant Therapy = 0.9 - 1.1 Routine Anticoagulat Therapy = 2.0 - 3.0 High Risk Anticoagulant Therapy = 3.0 - 4.5 Recommendations Laboratory test result [facility] ([facility] NORMAL RANGES Routine Non- Anticoagulant Therapy = 0.9 - 1.1 Routine Anticoagulat Therapy = 2.0 - 3.0 High Risk Anticoagulant Therapy = 3.0 - 4.5 Comment Laboratory test result [facility] ([facility] NORMAL RANGES Routine Non- Anticoagulant Therapy = 0.9 - 1.1 Routine Anticoagulat Therapy = 2.0 - 3.0 High Risk Anticoagulant Therapy = 3.0 - 4.5 Procedure Social History Code Duration Value Status Description Data Source(s ) Smoking 02/15/2021 12:00:00 AM EDT Never Smoker completed Never S moker [email or web address] ([facility]) Smoking 02/01/2021 12:00:00 AM EDT Never Smoker completed Never S moker eCW1 ([facility]) Smoking 02/01/2021 12:00:00 AM EDT Never Smoker completed Never S moker eCW1 ([facility]) Smoking 2021 12:00:00 AM EDT Patient has never smoked co mpleted Patient has never smoked MEDENT ([facility]) Alcohol intake 12/17/2020 12:00:00 AM EDT Current non-d park of alcohol (finding) completed Current non-drinker of alcohol (finding) [facility] Smoking 11/27/2020 12:00:00 AM EDT Non-smoker, Non-drink er, Non-drug User completed Non-smoker, Non-drinker, Non-drug User MEDENT ([employer]) Alcohol intake 09/14/2020 12:00:00 AM EDT Current non-d park of alcohol (finding) completed Current non-drinker of alcohol (finding) [facility] Alcohol intake 06/12/2020 12:00:00 AM EST No completed [facility] Smoking 06/12/2020 12:00:00 AM EST Never smoker completed Never s stellaker [facility] Smoking 01/09/2020 12:00:00 AM EDT Patient has never smoked co mpleted Patient has never smoked MEDENT ([facility] ) Vital Signs ID Date Data Source UNK Name Value Range Interpretation Code Description Data Source(s) Body weight 189 [lb_av] 189 [lb_av] eCW1 ([facility]) Respiratory rate 20 /min 20 /min eCW1 ([facility]) Body temperature 97.8 [degF] 97.8 [degF] eCW1 ( [facility]) Systolic blood pressure 146 mm[Hg] 146 mm[Hg] e CW1 ([facility]) Diastolic blood pressure 57 mm[Hg] 57 mm[Hg] eCW1 ([facility]) Body weight 85.73 kg 85.73 kg eCW1 ([facility]) Body height 61 [in_i] 61 [in_i] eCW1 ([facility]) Body mass index (BMI) [Ratio] 35.71 kg/m2 35.71 kg/m2 eCW1 ([facility]) Heart rate 68 /min 68 /min eCW1 ([facility]) Body weight 189 [lb_av] 189 [lb_av] eCW1 ([facility]) Body weight 85.73 kg 85.73 kg eCW1 ([facility]) Body height 61 [in_i] 61 [in_i] eCW1 ([facility]) Body mass index (BMI) [Ratio] 35.71 kg/m2 35.71 kg/m2 W1 ([facility]) Heart rate 76 /min 76 /min eCW1 ([facility]) Respiratory rate 20 /min 20 /min eCW1 ([facility]) Body temperature 98.4 [degF] 98.4 [degF] eCW1 ( [facility]) Systolic blood pressure 93 mm[Hg] 93 mm[Hg] e CW1 ([facility]) Diastolic blood pressure 40 mm[Hg] 40 mm[Hg] eCW1 ([facility]) Systolic blood pressure 125 mm[Hg] 125 mm[Hg] M EDENT ([facility]) Diastolic blood pressure 60 mm[Hg] 60 mm[Hg] MEDENT ([facility]) Body mass index (BMI) [Ratio] 34.0 kg/m2 34.0 k g/m2 MEDENT ([facility]) Heart rate 64 /min 64 /min MED[facility] ([facility] Body height 61 [in_i] 61 [in_i] MEDENT ([facility] 5'1" Body weight 180.00 [lb_av] 180.00 [lb_av] MEDEN T ([facility]) Body weight 81.648 kg 81.648 kg MEDENT ([facility]) Systolic blood pressure 151 mm[Hg] 151 mm[Hg] [facility] Diastolic blood pressure 58 mm[Hg] 58 mm[Hg] [facility] Heart rate 60 /min 60 /min [facility] Respiratory rate 18 /min 18 /min [facility] Body temperature 37.11 Jadyn 37.11 Jadyn [facility] Oxygen saturation in Arterial blood by Pulse oximetry 99 % 99 % [facility] Respiratory rate 18 /min 18 /min MEDENT ( [facility]) Oxygen saturation in Arterial blood by Pulse oximetry 99 % 99 % MEDENT ([facility]) Heart rate 60 /min 60 /min MEDENT ([facility] Body temperature 98.8 [degF] 98.8 [degF] MEDENT ([facility]) Body height 154.9 cm 154.9 cm [facility] Body weight 81.7 kg 81.7 kg [facility] Body mass index (BMI) [Ratio] 34.03 kg/m2 34.03 kg/m2 [facility] Body height 60.98 [in_i] 60.98 [in_i] MEDENT ([facility] 5'0.98" Body weight 180.06 [lb_av] 180.06 [lb_av] MEDEN T ([facility]) Body weight 81.700 kg 81.700 kg MEDENT ([facility] Body mass index (BMI) [Ratio] 34.03 kg/m2 34.03 kg/m2 MEDENT ([facility]) Body height 60 [in_i] 60 [in_i] MEDENT [...] mm[Hg] 108 mm[Hg] M EDENT ([employer]) Diastolic blood pressure 60 mm[Hg] 60 mm[Hg] MEDENT ([employer]) Body height 58 [in_i] 58 [in_i] MEDENT ([employer]) 4'10" Body weight 178.00 [lb_av] 178.00 [lb_av] MEDEN T ([employer]) Body mass index (BMI) [Ratio] 37.2 kg/m2 37.2 k g/m2 MEDENT ([employer]) Body surface area Derived from formula 1.73 m2 1.73 m2 MEDENT ([employer]) Body height 60 [in_i] 60 [in_i] MEDENT [...] 90.720 kg MEDENT ([facility]) Body mass index (BMI) [Ratio] 37.8 kg/m2 37.8 k g/m2 [facility] Heart rate 80 /min 80 /min MED[facility] ([facility] Body temperature 96.4 [degF] 96.4 [degF] MEDENT ([facility]) Body height 61 [in_i] 61 [in_i] [facility] 5'1" Body weight 200.00 [lb_av] 200.00 [lb_av] MEDEN T ([facility]) Systolic blood pressure 120 mm[Hg] 120 mm[Hg] M EDENT ([facility]) Body temperature 96.2 [degF] 96.2 [degF] MEDENT ([facility]) Body height 61 [in_i] 61 [in_i] MEDENT ([facility] 5'1" Systolic blood pressure 120 mm[Hg] 120 mm[Hg] [facility] [place] Diastolic blood pressure 70 mm[Hg] 70 mm[Hg] [facility] Body temperature 36.67 Jadyn 36.67 Jadyn [facility] Respiratory rate 16 /min 16 /min [facility] Oxygen saturation in Arterial blood by Pulse oximetry 98 % 98 % [facility] Heart rate 62 /min 62 /min [facility] Body height 154.9 cm 154.9 cm [facility] Body weight 85.73 kg 85.73 kg [facility] Body mass index (BMI) [Ratio] 35.71 kg/m2 35.71 kg/m2 [facility] Body temperature 97.7 [degF] 97.7 [degF] MEDENT (Bolivar Sotomayor MD) Systolic blood pressure 92 mm[Hg] 92 mm[Hg] M EDENT (Bolivar Sotomayor MD) Diastolic blood pressure 68 mm[Hg] 68 mm[Hg] MEDENT (Bolivar Sotomayor MD) Oxygen saturation in Arterial blood by Pulse oximetry 90 % 90 % MEDENT (Bolivar Sotomayor MD) Body temperature 96.8 [degF] 96.8 [degF] MEDENT (Bolivar Sotomayor MD) Systolic blood pressure 131 mm[Hg] 131 mm[Hg] M EDROSARIO (Bolivar Sotomayor MD) Diastolic blood pressure 61 mm[Hg] 61 mm[Hg] MEDENT (Bolivar Sotomayor MD) Heart rate 60 /min 60 /min MEDENT (Bolivar Sotomayor MD) Oxygen saturation in Arterial blood by Pulse oximetry 93 % 93 % JULISSAENT (Bolivar Sotomayor MD) 2 L N/C Respiratory rate 20 /min 20 /min MEDENT ( Bolivar Sotomayor MD) Body height 60 [in_i] 60 [in_i] MEDENT (Bolivar Sotomayor MD) 5'0" Body weight 190.00 [lb_av] 190.00 [lb_av] MEDEN T (Bolivar Sotomayor MD) Body mass index (BMI) [Ratio] 37.1 kg/m2 37.1 k g/m2 MEDENT (Bolivar Sotomayor MD) Systolic blood pressure 220 mm[Hg] 220 mm[Hg] M ALLISON ([facility]) NC/doppler Body temperature 96.5 [degF] 96.5 [degF] MEDENT ([facility]) Body height 61 [in_i] 61 [in_i] MEDENT ([facility]) 5'1" Body weight 184.00 [lb_av] 184.00 [lb_av] MEDEN T ([facility]) Body weight 83.462 kg 83.462 kg MEDENT ([facility]) Body mass index (BMI) [Ratio] 34.8 kg/m2 34.8 k g/m2 MEDENT ([facility]) Body weight 186.00 [lb_av] 186.00 [lb_av] MEDEN T (Bolivar Sotomayor MD) Body mass index (BMI) [Ratio] 36.3 kg/m2 36.3 k g/m2 MEDENT (Bolivar Sotomayor MD) Body temperature 97.7 [degF] 97.7 [degF] MEDENT (Bolivar Sotomayor MD) Systolic blood pressure 134 mm[Hg] 134 mm[Hg] M EDENT (Bolivar Sotomayor MD) Diastolic blood pressure 72 mm[Hg] 72 mm[Hg] [...] blood pressure 118 mm[Hg] 118 mm[Hg] M EDENT (Bolivar Sotomayor MD) Diastolic blood pressure 68 mm[Hg] 68 mm[Hg] MEDENT (Bolivar Sotomayor MD) Heart rate 60 /min 60 /min MEDENT (Bolivar Sotomayor MD) Oxygen saturation in Arterial blood by Pulse oximetry 97 % 97 % MEDENT (Bolivar Sotomayor MD) Systolic blood pressure 142 mm[Hg] 142 mm[Hg] [facility] [place] pt moving arm during reading Diastolic blood pressure 106 mm[Hg] 106 mm[Hg] [facility] pt moving arm during reading Heart rate 60 /min 60 /min [facility] Body temperature 36.56 Jadyn 36.56 Jadyn [facility] Respiratory rate 18 /min 18 /min [facility] Oxygen saturation in Arterial blood by Pulse oximetry 91 % 91 % [facility] Respiratory rate 18 /min 18 /min [...] (BMI) [Ratio] 40.6 kg/m2 40.6 k g/m2 MEDENT (Bolivar Sotomayor MD) Body temperature 97.0 [degF] [...] blood pressure 60 mm[Hg] 60 mm[Hg] MEDENT ([facility] ) Heart rate 64 /min 64 /min MEDENT ([facility] ) Respiratory rate 20 /min 20 /min MEDENT ( [facility] ) Systolic blood pressure 142 mm[Hg] 142 mm[Hg] M EDENT ([facility] Respiratory rate 18 /min 18 /min MEDENT ( [facility] Diastolic blood pressure 78 mm[Hg] 78 mm[Hg] MEDENT ([facility] Body temperature 98.4 [degF] 98.4 [degF] MEDENT ([facility] Heart rate 88 /min 88 /min MEDENT ([facility] Body height 61 [in_i] 61 [in_i] MEDENT ([facility] 5'1" Body weight 207.00 [lb_av] 207.00 [lb_av] MEDEN T ([facility] [place] body weight 105 [lb_av] 105 [lb_av] MEDEN T ([facility] Body mass index (BMI) [Ratio] 39.1 kg/m2 39.1 k g/m2 MEDENT ([facility] Oxygen saturation in Arterial blood by Pulse oximetry 93 % 93 % YARI ([facility] (On O2 @ 2 LPM NC) ID Date Data Source [id number] 10/26/2020 08:34:48 AM EDT [facility] Name Value Range Interpretation Code Description Data Source(s) WEIGHT RECORDED 197.90 pounds 197.90 pounds [facility] Height 61 Inches 061 Inches [facility] ID Date Data Source [id number] 06/02/2020 09:05:15 AM [facility] Name Value Range Interpretation Code Description Data Source(s) WEIGHT RECORDED 192.30 pounds 192.30 pounds [facility] Height 61 Inches 061 Inches [facility] WEIGHT RECORDED 203.40 pounds 203.40 pounds [facility] Height 61 Inches 061 Inches [facility] ID Date Data Source [id number] 04/07/2020 09:11:50 AM [facility] Name Value Range Interpretation Code Description Data Source(s) WEIGHT RECORDED 212.00 pounds 212.00 pounds [facility] Height 61 Inches 061 Inches [facility] WEIGHT RECORDED 221.00 pounds 221.00 pounds [facility] Height 61 Inches 061 Inches [facility] Patient Treatment Plan of Care Planned Activity Planned Date Details Description Data Source (s) Insulin Glargine 100 UNT/ML Injectable Solution [Lantu s] 12/19/2020 09:00:00 PM EDT [facility] Amoxicillin 875 MG / Clavulanate 125 MG Oral Tablet 12/20/19 12:00:00 AM EDT [facility] Oxycodone Hydrochloride 5 MG Oral Tablet 12/19/2020 12:00:00 AM EDT [facility] Acetaminophen 500 MG Oral Tablet 12/18/2020 11:00:00 AM EDT [facility] Nitroglycerin 0.4 MG Sublingual Tablet 12/17/2020 01:55:32 PM EDT [facility] Albuterol 0.83 MG/ML Inhalant Solution 12/17/2020 01:55:14 PM EDT [facility] Bisacodyl 10 MG Rectal Suppository 12/17/2020 01:18:58 PM EDT [facility] ondansetron (ZOFRAN) injection 4 mg 12/17/2020 01:18:58 PM EDT [facility] sodium chloride 0.9% (NS) infusion 09/14/2020 02:00:00 PM EDT [facility] torsemide 10 MG Oral Tablet [facility] quetiapine 25 MG Oral Tablet [facility]
[2021-02-20 22:03] LABS: INR 2.28; PROTHROMBIN TIME 25.5 SECONDS (12.7-14.5)
[2021-02-20 22:04] LABS: PARTIAL THROMBOPLASTIN TIME 50.3 SECONDS (25.9-37.0)
[2021-02-20] MEDS ORDERED: POTA1TAB23 PO (22:27)
[2021-02-20] MEDS ORDERED: WARF-58 (22:27)
[2021-02-20] MEDS ORDERED: ASPI81CH33 PO (22:27)
[2021-02-20 22:41] LABS: ALBUMIN 2.8 GM/DL (3.2-5.2); ALT/SGPT 22 U/L (12-78); BILIRUBIN,DIRECT 0.4 MG/DL (0.0-0.2); BILIRUBIN,TOTAL 0.7 MG/DL (0.2-1.0); BLOOD UREA NITROGEN 39 MG/DL (7-18); CALCIUM LEVEL 8.1 MG/DL (8.8-10.2); CARBON DIOXIDE LEVEL 31 MEQ/L (21-32); CHLORIDE LEVEL 97 MEQ/L (98-107); CK-MB VALUE MASS < 1.0 NG/ML (<3.6); CPK CREATINE PHOSPHOKINASE 89 U/L (26-192); CREATININE FOR GFR 1.98 MG/DL (0.55-1.30); GLOMERULAR FILTRATION RATE 25.8 (>32); GLUCOSE, FASTING 265 MG/DL (70-100); MB/CK RELATIVE INDEX 1.12 (< OR =4); NT-PRO BNP 8577 PG/ML (<450); POTASSIUM SERUM 4.6 MEQ/L (3.5-5.1); SODIUM LEVEL 135 MEQ/L (136-145); TOTAL PROTEIN 6.3 GM/DL (6.4-8.2); TROPONIN I 0.06 NG/ML (< 0.10)
[2021-02-20] MEDS ORDERED: NS 500 ML IV ONE (23:15)
[2021-02-20] MEDS ORDERED: NS 1,000 ML IV SCH (23:15)
--- NOTE | 2021-02-20 23:37 | REPVR ---
PROCEDURE INFORMATION: Exam: XR Chest Exam date and time: 02/20/2021 9:47 PM Age: 81 years old Clinical indication: Dyspnea/cough TECHNIQUE: Imaging protocol: XR of the chest. Views: 1 view. COMPARISON: No relevant prior studies available. 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 Lungs: No focal areas of consolidation. Pleural spaces: No pleural effusion. No pneumothorax. Heart/Mediastinum: Cardiomegaly. Bones/joints: Median sternotomy wires in place. No acute fracture. IMPRESSION: 1. No acute cardiopulmonary findings. 2. Chronic findings, as above. Electronically signed by: Renny Salazar On 02/20/2021 23:36:32 PM
[2021-02-20] MEDS ORDERED: WARF4TAB52 PO (23:53)
[2021-02-20] MEDS ORDERED: WARF-58 PO (23:53)
[2021-02-20] MEDS ORDERED: HOME MED LIST COMPLETE! XX SCH (23:55)
--- NOTE | 2021-02-20 23:59 | HPEPDOC ---
[facility] Medical History & Physical Date of Admission Feb 20, 2021 Date of Service: Feb 20, 2021 Attending Physician: VALERIE AGARWAL MD History and Physical CHIEF COMPLAINT: [81 y/o female c/o sob x3 days] HISTORY OF PRESENT ILLNESS: [This is an 81 y/o female with a pmh of cva on warfarin, chf, cad s/p stenting x11 and pacer placement, ckd, gout, dm2, hypothyroidism who presents to our ED on 02/20 for evaluation of a cc of sob that began a few days ago. Patient states that she was concerned that she was having "a buildup of fluid" that was causing her shortness of breath. Patient tells me that her symptoms began with cold type symptoms like rhinorrhea, sneezing and cough that eventually progressed into shortness of breath. Patient was taking cold medicine and cough syrup at home to no relief. Patient tells me that her shortness of breath is much worse upon exertion. Patient tells me that her symptoms feels similar to how she has felt with chf in the past. Patient has continued to wear her chronic 2L of o2 at home and has not had to increase it. Patient, at the time of my exam, denies any fevers, chills, chest pain, hemoptysis, abd pain, n/v/d/c, calf pain, syncope, recent falls. Patient found to be covid+ in the ED despite vaccination. Also of note was an elevated bnp of >8000 and ami with a current cr of 1.98 from baseline 1.2] PAST MEDICAL HISTORY: 1. [See HPI PAST SURGICAL HISTORY: 1. [B/l cataract removal]. 2. [Pacer placement]. 3. [CABG 4. Cardiac stenting 5. Cholecystectomy 6. Appendectomy 7. Tubal ligation 8. Hysterectomy]. SOCIAL HISTORY: Tobacco use:[denies] ETOH: [denies] Illicit drug use: [denies] FAMILY HISTORY: Reviewed - none pertinent ALLERGIES: Please see below. REVIEW OF SYSTEMS: CONSTITUTIONAL: [See HPI]. HEENT: [See HPI]. CARDIOVASCULAR: [Denies chest pain, palpitations]. RESPIRATORY: [See HPI]. GASTROINTESTINAL: [Denies abd pain, n/v/d/c]. GENITOURINARY: [Denies dysuria]. SKIN: [Denies rash]. MUSCULOSKELETAL: [Denies acute joint/back pain]. NEUROLOGICAL: [Denies syncope, paresthesias]. ENDOCRINE: [Hx of DM]. HEMATOLOGIC/LYMPHATIC: [Denies hx of vte]. HOME MEDICATIONS: Please see below. PHYSICAL EXAMINATION: VITAL SIGNS: Please see below. GENERAL APPEARANCE: [This is a pleasant 81 y/o female who is alert and oriented to all questioning. She does not appear to be in any acute distress]. HEENT: [No mass or lesion. EOMI. No scleral icterus. Nares patent. Oral mucosa moist]. CARDIOVASCULAR: [Regular rate, rhythm. No murmurs, rubs, gallops]. LUNGS: [Coarse breath sounds diffusely with scattered rhonchi and crackles at b/l bases]. ABDOMEN: [Soft, nontender]. MUSCULOSKELETAL: [No joint deformity noted]. EXTREMITIES: [Trace edema to b/l lower extremities, left worse than right. Patient states that this the lle edema is chronically worse. Skin changes consistant with venous stasis noted. Pulses intact]. NEUROLOGICAL: [Speech clear. A+Ox3. No focal deficits]. PSYCHIATRIC: [Mood and affect appropriate]. LABORATORY DATA: See below. IMAGING: [CXR: FINDINGS: Tubes, catheters and devices: Left-sided cardiac pacemaker in place. Lungs: No focal areas of consolidation. Pleural spaces: No pleural effusion. No pneumothorax. Heart/Mediastinum: Cardiomegaly. Bones/joints: Median sternotomy wires in place. No acute fracture. IMPRESSION: 1. No acute cardiopulmonary findings. 2. Chronic findings, as above. ] MICROBIOLOGY: Please see below. ASSESSMENT: [This is an 81 y/o female with a pmh of cva on warfarin, chf, cad s/p stenting x11 and pacer placement, ckd, gout, dm2, hypothyroidism who presents to our ED on 02/20 for evaluation of a cc of sob that began a few days ago. Patient found to be covid+ in the ED despite vaccination. Also of note was an elevated bnp of >8000 and ami with a current cr of 1.98 from baseline 1.2]. . PLAN: 1. [AMI - pt cr acutely elevated to 1.98 from 1.2 - suspect possible congestive nephropathy. patient clinical presentation consistent with chf despite obvious pedal edema - pt received ivf in the ed - renal us ordered - ua, urine electrolytes ordered - holding arb at this time d/t decreased renal function - repeat kidney function in the am 2. CHF - decompensated. patient's history and lung sounds very consistent with volume overloaded induced sob - patient wears chronic 2L o2 at home for her severe heart disease. will continue. - will begin diuresis - 40mg iv lasix ordered in the ed, will begin 40mg iv lasix bid - daily weights, is and os, 1.8L fluid restrict - continue at home carvedilol, holding arb as stated above 3. COVID - pt not indicated for remdesevir/dexamethasone at this time d/t no hypoxia beyond patient's baseline, cxr findings indicative of pna - will trend inflammatory markers while in house - pt qualifies for monoclonals upon discharge 4. DM - continue at home basal insulin dose - sliding scale coverage - hypoglycemic protocol - continue pregabalin 5. CAD - continue plavix, asa 6. Hx of cva - continue warfarin - daily inr 7. HLD - continue atorvastatin 8. GERD - continue omeprazole 9. Hypothyroidism - continue synthroid 10. Gout - continue allopurinol DVT prophylaxis - pt on warfarin]. Vital Signs Vital Signs Date Time Temp Pulse Resp B/P (MAP) Pulse Ox O2 Delivery O2 Flow Rate FiO2 02/20/21 23:45 60 182/83 (116) 02/20/21 23:31 18 99 Nasal Cannula 2.0 02/20/21 22:28 98.5 Laboratory Data Labs 24H Laboratory Tests 2 02/20/21 21:12: Prothrombin Time 25.5H, Prothromb Time International Ratio 2.28, Activated Partial Thromboplast Time 50.3H 02/20/21 21:39: Immature Granulocyte % (Auto) 0.3, Neutrophils (%) (Auto) 72.0H, Lymphocytes (%) (Auto) 15.8L, Monocytes (%) (Auto) 11.8H, Eosinophils (%) (Auto) 0.0, Basophils (%) (Auto) 0.1, Neutrophils # (Auto) 5.4, Lymphocytes # (Auto) 1.2L, Monocytes # (Auto) 0.9H, Eosinophils # (Auto) 0.0, Basophils # (Auto) 0.0, Nucleated Red Blood Cells % (auto) 0.0, Anion Gap 7L, Glomerular Filtration Rate 25.8L, Lactic Acid Level 1.9, Calcium Level 8.1L, Total Bilirubin 0.7, Direct Bilirubin 0.4H, Aspartate Amino Transf (AST/SGOT) 39H, Alanine Aminotransferase (ALT/SGPT) 22, Alkaline Phosphatase 216H, Total Creatine Kinase 89, Creatine Kinase MB < 1.0, Creatine Kinase MB Relative Index 1.12, Troponin I 0.06, CF-[id number]-Type Natriuretic Peptide 8577H, Total Protein 6.3L, Albumin 2.8L, Albumin/Globulin Ratio 0.8L, Thyroid Stimulating Hormone (TSH) 1.290 CBC/BMP Laboratory Tests 02/20/21 21:39 Microbiology Microbiology 02/20/21 Respiratory Virus Panel (PCR) ([facility]) - Final, Complete SARS-CoV-2 (COVID 19) 02/20/21 Blood Culture, Received Pending Home Medications Scheduled Allopurinol (Allopurinol) 100 Mg Tablet, 100 MG PO BID Ascorbic Acid (Vitamin C) 500 Mg Capsule, 500 MG PO DAILY Aspirin (Aspirin) 81 Mg Tab.chew, 81 MG PO DAILY Atorvastatin Calcium (Atorvastatin Calcium) 80 Mg Tablet, 80 MG PO QHS Bumetanide (Bumetanide) 1 Mg Tablet, 1 MG PO BID Buspirone HCl (Buspirone HCl) 7.5 Mg Tablet, 7.5 MG PO BID Calcitriol (Calcitriol) 0.25 Mcg Capsule, 0.25 MG PO DAILY Carvedilol (Carvedilol) 6.25 Mg Tablet, 6.25 MG PO DAILY Cholecalciferol (Vitamin D3) (Vitamin D3) 1,000 Unit Tablet, 1,000 UNITS PO DAILY Clopidogrel Bisulfate (Clopidogrel) 75 Mg Tablet, 75 MG PO DAILY Ferrous Gluconate (Iron) 236 Mg Tablet, 27 MG PO BID Insulin Glargine,Hum.rec.anlog (Toujeo Solostar) 300 Unit/1 Ml Insuln.pen, 45 UNIT SC QHS Levothyroxine Sodium (Levothyroxine Sodium) 100 Mcg Tablet, 100 MCG PO DAILY Linagliptin (Tradjenta) 5 Mg Tablet, 5 MG PO QHS Omeprazole (Omeprazole) 20 Mg Capsule.dr, 20 MG PO DAILY Potassium Chloride (Potassium Chloride) 10 Meq Tablet.er, 10 MEQ PO BID Pregabalin (Pregabalin) 75 Mg Capsule, 75 MG PO BID Ubidecarenone/Vit E Acet (Co Q-10 100 mg Softgel) 1 Each Capsule, 100 MG PO DAILY Valsartan (Valsartan) 40 Mg Tablet, 40 MG PO DAILY Warfarin Sodium (Warfarin Sodium) 1 Mg Tablet, 4 MG PO 2XW MONDAY AND MONDAY Warfarin Sodium (Warfarin Sodium) 3 Mg Tablet, 3 MG PO 5XW MON,MON,MON,SAT,AND SUN Allergies Coded Allergies: Penicillins (Verified Allergy, Intermediate, N/V, 05/15/20) aloe vera (Verified Allergy, Intermediate, N/V skin burning, 05/15/20) A-FIB/CHADSVASC A-FIB History Current/History of A-Fib/PAF?: No HAYDEE LLANOS Feb 20, 2021 23:59
[2021-02-21] MEDS ORDERED: ACETAMINOPHEN TAB 650MG DOSE (2X325MG) PO PRN
[2021-02-21] MEDS ORDERED: guaiFENesin 200 MG TAB PO PRN
[2021-02-21] MEDS ORDERED: FUROSEMIDE 40MG/4ML VIAL (J1940) IV ONE
[2021-02-21] MEDS ORDERED: DEXTROSE 50% 50 ML SYRINGE IV PRN (00:05)
[2021-02-21] MEDS ORDERED: GLUCAGON INJ 1MG VIAL SC PRN (00:05)
[2021-02-21] MEDS ORDERED: GLUCOSE 4GM CHEW TABLET PO PRN (00:05)
[2021-02-21] MEDS ORDERED: CO Q100C10 PO (00:14)
[2021-02-21] MEDS ORDERED: D31000TA2 PO (00:14)
[2021-02-21] MEDS ORDERED: VITA500C24 PO (00:14)
[2021-02-21] MEDS ORDERED: IRON27TA2 PO (00:14)
--- OUTSIDE RECORDS SUMMARY | 2021-02-21 00:23 | CCD ---
Author Author [facility] Address Unknown Phone Unavailable Care Team Providers Care Environmental Protection Specialist Name Role Phone KIRSCHMAN, L JOSELIN STORY TELLER Unavailable Unavailable KIRSCHMAN, L JOSELIN STORY TELLER Unavailable Unavailable KIRSCHMAN, L JOSELIN STORY TELLER Unavailable Unavailable KIRSCHMAN, L JOSELIN STORY TELLER Unavailable Unavailable KIRSCHMAN, L JOSELIN STORY TELLER Unavailable Unavailable KIRSCHMAN, L JOSELIN STORY TELLER Unavailable Unavailable KIRSCHMAN, L JOSELIN STORY TELLER Unavailable Unavailable KIRSCHMAN, L JOSELIN STORY TELLER Unavailable Unavailable KIRSCHMAN, L JOSELIN STORY TELLER Unavailable Unavailable KIRSCHMAN, L JOSELIN STORY TELLER Unavailable Unavailable KIRSCHMAN, L JOSELIN STORY TELLER Unavailable Unavailable KIRSCHMAN, L JOSELIN STORY TELLER Unavailable Unavailable KIRSCHMAN, L JOSELIN STORY TELLER Unavailable Unavailable KIRSCHMAN, L JOSELIN STORY TELLER Unavailable Unavailable KIRSCHMAN, L JOSELIN STORY TELLER Unavailable Unavailable KIRSCHMAN, L JOSELIN STORY TELLER Unavailable Unavailable KIRSCHMAN, L JOSELIN STORY TELLER Unavailable Unavailable KIRSCHMAN, L JOSELIN STORY TELLER Unavailable Unavailable KIRSCHMAN, L JOSELIN STORY TELLER Unavailable Unavailable KIRSCHMAN, L JOSELIN STORY TELLER Unavailable Unavailable KIRSCHMAN, L JOSELIN STORY TELLER Unavailable Unavailable KIRSCHMAN, L JOSELIN STORY TELLER Unavailable Unavailable KIRSCHMAN, L JOSELIN STORY TELLER Unavailable Unavailable KIRSCHMAN, L JOSELIN STORY TELLER Unavailable Unavailable KIRSCHMAN, L JOSELIN STORY TELLER Unavailable Unavailable KIRSCHMAN, L JOSELIN STORY TELLER Unavailable Unavailable KIRSCHMAN, L JOSELIN STORY TELLER Unavailable Unavailable KIRSCHMAN, L JOSELIN STORY TELLER Unavailable Unavailable KIRSCHMAN, L JOSELIN STORY TELLER Unavailable Unavailable KIRSCHMAN, L JOSELIN STORY TELLER Unavailable Unavailable KIRSCHMAN, L JOSELIN STORY TELLER Unavailable Unavailable KIRSCHMAN, L JOSELIN STORY TELLER Unavailable Unavailable KIRSCHMAN, L JOSELIN STORY TELLER Unavailable Unavailable KIRSCHMAN, L JOSELIN STORY TELLER Unavailable Unavailable KIRSCHMAN, L JOSELIN STORY TELLER Unavailable Unavailable KIRSCHMAN, L JOSELIN STORY TELLER Unavailable Unavailable KIRSCHMAN, L JOSELIN STORY TELLER Unavailable Unavailable KIRSCHMAN, L JOSELIN STORY TELLER Unavailable Unavailable KIRSCHMAN, L JOSELIN STORY TELLER Unavailable Unavailable KIRSCHMAN, L JOSELIN STORY TELLER Unavailable Unavailable KIRSCHMAN, L JOSELIN STORY TELLER Unavailable Unavailable KIRSCHMAN, L JOSELIN STORY TELLER Unavailable Unavailable KIRSCHMAN, L JOSELIN STORY TELLER Unavailable Unavailable KIRSCHMAN, L JOSELIN STORY TELLER Unavailable Unavailable KIRSCHMAN, L JOSELIN STORY TELLER Unavailable Unavailable KIRSCHMAN, L JOSELIN STORY TELLER Unavailable Unavailable KIRSCHMAN, L JOSELIN STORY TELLER Unavailable Unavailable Trickey, J Sol PA Unavailable [...] J Sol PA Unavailable Unavailable Trickey, J Osl PA Unavailable Unavailable Trickey, J Sol PA [...] MAQBOOL BOLIVAR MD Unavailable Unavailable MANUEL, MAQBOOL BLOIVAR MD Unavailable Unavailable MANUEL, MAQBOOL BOLIVAR MD [...] Unavailable Tiffanie Grigsby Bandar MD Unavailable Unavailable Tiffanei Grigsby Bandar MD Unavailable Unavailable Calista N [...] MAQBOOL BOLIVAR MD Unavailable Unavailable Sandy Zamora FRENCH TRANSLATOR Unavailable Unavailable TURRIN, SIRIA Unavailable Unavailable TURRIN, [...] Unavailable Tiffanie Grigsby MD Unavailable Unavailable Tiffanie Grisgby MD Unavailable Unavailable Tiffanie Grigsby MD Unavailable [...] Fish, J Akash Unavailable Unavailable Fish, J Aksah Unavailable Unavailable Fish, J Akash Unavailable Unavailable [...] Unavailable Charlie EVANS MD Unavailable Unavailable Charlie EVNAS MD Unavailable Unavailable Charlie EVANS MD Unavailable [...] law may result in a fine or intermediate sentence or both. A general authorization for the release of medical or other information is NOT sufficient authorization for further disc losure. Allergies and Adverse Reactions Type Description Substance Reaction Status Data Source(s ) Propensity to adverse reactions ALOE VERA ALOE VERA [facility] Propensity to adverse reactions PENICILLINS (CLASS) PENICILLINS (CLAS S) [facility] Family History Family Member Name Family Member Gender Family Member Status Date o f Status Description Data Source(s) Unknown Male Problem MEDENT ([facility]) () Unknown Male Problem MEDENT ([facility] () Encounters Encounter Providers Location Date Indications Data Source(s ) ([id number]) For Template [place] [address] [place] [address] 02/10/2021 12:00:00 AM EDT eCW1 ([facility]) [place] [address] [address] 02/02/2021 12:00:00 AM EDT eCW1 ([facility]) (WND NP120) New Patient 120 [address] [place] [address] 02/01/2021 12:00:00 AM EDT eCW1 ([facility]) Outpatient Attender: Toyin Lopez MD Main Office 2021 09:30:00 AM EDT MEDENT ([facility]) [place] [address] [address] 12/24/2020 12:00:00 AM EDT eCW1 ([facility]) Inpatient Attender: Toyin Lopez MDAdmitter: Toyin cisneros MD [id number] 12/17/2020 11:58:00 AM EDT - 12/19/2020 05:09:00 PM EDT [facility] Patient discharged. Outpatient Attender: BOLIVAR SOTOMAYOR MD Medical [facility] 12/14 01:30:00 PM EDT MEDENT (Bolivar Sotomayor MD) Outpatient Attender: Bandar Aldana melia: Toyin PortilloConsultant: Akash Cm 12/11/2020 10:41:00 AM EDT - 12/11/2020 11:41:00 AM EDT [facility] Outpatient Attender: JYOTI GARCIA MD [facility] junior paralegal 02:00:00 PM EDT MEDENT ([facility] BOW TACKER) Outpatient Attender: Bandar Grigsby MD Main Office 11/23/2020 10:00:00 AM EDT MEDENT ([facility]) Outpatient Attender: BOLIVAR SOTOMAYOR MD [facility] 11/19 11:15:00 AM EDT MEDENT ([facility]ivar Sotomayor MD) Outpatient Attender: BOLIVAR SOTOMAYOR MD [facility] 10/20 01:15:00 PM EDT MEDENT ([facility] Sotomayor MD) Outpatient Attender: Bandar Grigsby MD Main Office 10/14/2020 10:15:00 AM EDT MEDENT ([facility]) Inpatient Attender: BOLIVAR Temple george: AMARA MACIAS MDConsultant: Akash Cm 10/09/2020 03:14:00 PM EDT - 10/13/2020 01:00:00 PM EDT [facility] Patient discharged. Emergency Attender: AMARA MACIAS MD 10/09/2020 12:19:00 PM EDT - 10/09/2020 03:14:00 PM EDT [facility] Outpatient Attender: Bandar Grigsby MD Main Office 09/23/2020 10:15:00 AM EDT MEDENT ([facility]) Outpatient Attender: BOLIVAR SOTOMAYOR MD Medical [facility] 09/10 01:30:00 PM EDT MEDENT ([facility] Sotomay[facility]) Outpatient Attender: Mary WEST 10:08:13 AM EDT - 09/09/2020 10:25:46 AM EDT [facility]uTap ([facility] ) Outpatient Attender: Bandar Grigsby MDConsultant: Akash Cm 09/04/2020 10:36:00 AM EDT - 09/04/2020 11:36:[address] [facility] Outpatient Attender: Toyin Lopez MDAdmitter: Toyin cisneros MD [id number] 08/27/2020 02:05:28 PM EDT - 09/14/2020 06:15:00 PM EDT [facility] Patient discharged. Outpatient Attender: BOLIVAR SOTOMAYOR MD [facility] 08/06 11:30:00 AM EDT MEDENT ([facility] Sotomayor [facility]) Outpatient Attender: Bandar Grigsby MD Main Office 08/03/2020 09:30:00 AM EDT MED[facility] ([facility]) Outpatient Attender: BOLIVAR SOTOMAYOR MD [facility] 07/15 10:30:00 AM EST MEDENT ([facility] Sotomayor MD) Outpatient Attender: BOLIVAR SOTOMAYOR MD [facility] 06/17 09:00:00 AM EST [facility] ([facility]) Outpatient Attender: BENJAMIN EVANS MDAdmitter: BENJAMIN GUEVARA MD [id number] 06/12/2020 09:59:00 AM EST - 06/12/2020 04:37:00 PM EST [facility] Patient discharged. Outpatient Attender: Akash CmConsultant: Akash Cm 06/10/2020 11:30:00 AM EST - 06/10/2020 12:30:00 PM EST [facility] Outpatient Attender: Monse Palmergloria SULTANASWConsultant: Akash Fish 06/02/2020 09:04:00 AM EST - 06/02/2020 09:04:00 AM [facility] Outpatient Attender: BOLIVAR SOTOMAYOR MD Medical [facility] 05/21 01:45:00 PM EST MEDENT (Bolivar Sotomayor MD) Outpatient Attender: JOSELIN LEON STORY TELLER Referrer: BOLIVAR SOTOMAYOR MDConsultant: Akash Cm 05/19/2020 10:54:00 AM EST - 05/19/2020 11:54:00 AM [facility] Inpatient Attender: AMARA Messina MDAttender: BOLIVAR SOTOMAYOR MDConsultant: Akash Cm 05/09/2020 06:50:00 PM EST - 05/15/2020 07:17:00 PM [facility] Patient discharged. Outpatient Attender: BOLIVAR SOTOMAYOR MD 2019 04:16:00 PM EST - 05/09/2020 06:50:00 PM [facility] Outpatient 03/29/2020 06:05:00 AM [facility] Inpatient Attender: BOLIVAR SOTOMAYRO MDAtt george: SIRIA EVANSConsultant: Akashmarie Cm 03/25/2020 09:00:00 AM [facility] - 03/30/2020 01:38:00 PM [facility] Patient discharged. Outpatient Attender: BOLIVAR SOTOMAYOR MD 2019 02:25:00 PM EST - 03/25/2020 09:00:00 AM [facility] Outpatient Attender: Sol WEST Main office - [facility] 03/09/2020 09:00:00 AM EST MEDENT ([facility] TIAN daugherty) Outpatient Attender: Akash Cm [facility] 02/04/2020 10:30:0 0 AM EDT MED[facility] ([facility] Outpatient Attender: BOLIVAR SOTOMAYOR MD [facility] 01/27 02:30:00 PM EDT MEDENT ([facility] Sotomayor MD) Outpatient Attender: Sol Vera PAConsultant: Akash [facility] h 12/11/2019 12:47:10 PM EDT - 12/12/2019 09:31:00 AM EDT [facility] Patient discharged. Immunizations Vaccine Date Status Description Data Source(s) COVID-19 VACCINE Moderna 07/28/2020 12:00:00 AM EDT completed [facility] Vaccine Series Complete: YESThis Data wa s Submitted to [facility] Via [facility]. COVID-19 VACCINE Moderna 07/03/2020 12:00:00 AM EST completed [place] Vaccine Series Complete: NOThis Data was Submitted to [facility] [employer]. New in 2013. IIV4 02/04/2020 11:18:00 AM [...] Hyclate 2021 12:00:00 AM EDT active [facility] Calcitriol 0.80149 MG Oral Capsule 0.25 mcg CALCITRIOL 01/13/2021 [...] DAILY DOSE = 6 TABLETS SOLD: 12/20/2020 [employer] Insulin Glargine 100 UNT/ML Injectable S olution [...] to 200 mg/dl &nb sp; No Change
[facility] Medication administered onsite atorvastatin 80 MG Oral Tablet atorvastatin (LIPITOR) tablet 80 mg atorvastatin (LIPITOR) tablet 80 mg 12/19/2020 09:00:00 AM EDT 80 mg Oral active 80 mg, Oral, Daily, First dose (after last modification) on 12/19/20 at 0900
As per home regimen
[facility] Medication administered onsite Oxycodone Hydrochloride 5 MG Oral Tablet oxyCODONE (ROXICODONE) 5 MG immediate release tablet oxyCODONE (ROXICODONE) 5 MG immediate release tablet 0 12/19/2020 12:00:00 AM EDT 5 mg Oral active Take 1 tablet (5 mg total) by mouth every 4 (four) hours as needed Max Daily Amount: 30 mg [facility] Amoxicillin 875 MG / Clavulanate 125 MG Oral Tablet amoxicillin-clavulanate (AUGMENTIN) 875-125 MG per tablet amoxicillin-clavulanate (AUGMENTIN) 875- 125 MG per tablet 12/19/2020 12:00:00 AM EDT 1 {tbl} Oral activ e Take 1 tablet by mouth 2 (two) times a day for 10 days [facility] Oxycodone Hydrochloride 5 MG Oral Tablet Oxycodone HCL 12/19/2020 12:00:00 AM EDT ORAL active [facility] ([facility] Amoxicillin 875 MG / Clavulanate 125 MG Oral Tablet Am oxicillin/Clavulanate Potassium 12/19/2020 12:00:00 AM EDT ORAL completed MED[facility] ([facility]) Amoxicillin 875 MG / Clavulanate 125 [...] to 200 mg/dl &nb sp; No Change
[facility] Medication administered onsite piperacillin-tazobactam (ZOSYN) 3.375 g in sodium chloride (NS) 0.9 % 100 mL IV pigtail 12/18/2020 03:00:00 PM EDT 3.375 g Intravenous active Skin and Soft Tissue Infection 3.375 g, Intravenous, Admini ster over 4 Hours, Every 8 hours (relative), First dose (after last modification) on Mon12/18/20 at 1500
Extended infusion: administer each dose over 4 hours
[facility] Skin and Soft Tissue Infection Medication administered onsite iodixanol (VISIPAQUE) 320 MG/ML injection 200 mL [id number] 12/18/2020 02:25:38 PM EDT 200 mL Intra-arterial completed 200 mL, Intra-arterial, Once in imaging, contrast, Starting on Mon12/18/20 at 1425, For 1 dose [facility] Medication administered onsite 2 ML Midazolam 1 MG/ML Injection midazolam (VERSED) in jection midazolam (VERSED) injection 12/18/2020 02:06:34 PM EDT Intravenous co mpleted Intravenous, Code/trauma/sedation medication, Starting on Mon12/18/20 at 1406 [facility] Medication administered onsite fentaNYL Citrate (PF) (SUBLIMAZE) injection 3202-9085-41 12/18/2020 02:06:28 PM EDT Intravenous completed In travenous, Code/trauma/sedation medication, Starting on Mon12/18/20 at 1406 [facility] Medication administered onsite Insulin Lispro [...] cover POC glucose at 08:00, 12:00, 17:00.
[facility] Medication administered onsite dextrose 10 % infusion [id number] 12/18/2020 11:00:00 AM EDT 50 mL/h Intravenous aborted 50 mL/hr, Int ravenous, at 50 mL/hr, Continuous, Starting on Mon12/18/20 at 1100 [facility] Medication administered onsite Acetaminophen 500 MG Oral Tablet acetaminophen (TYLENO L) tablet 1,000 mg acetaminophen (TYLENOL) tablet 1,000 mg 12/18/2020 11:00:00 AM EDT 1000 mg Oral active 1,000 mg, Oral , Every 6 hours PRN, mild pain (1-3), Starting on Mon12/18/20 at 1100
"Maximum dose of acetaminophen is 4,000 mg from all sources in 24 hours."
[facility] Medication administered onsite Levothyroxine Sodium 0.1 MG Oral Tablet levothyroxine (SYNTHROID, LEVOTHROID) tablet 100 mcg levothyroxine (SYNTHROID, LEVOTHROID) tablet 100 mcg 0 12/18/2020 09:00:00 AM EDT 100 ug Oral active 100 mcg, Oral, Daily, First dose on Mon12/18/20 at 0900 [facility] Medication administered onsite clopidogrel 75 MG Oral Tablet clopidogrel (PLAVIX) tab let 75 mg clopidogrel (PLAVIX) tablet 75 mg 12/18/2020 09:00:00 AM EDT 75 mg Oral active 75 mg, Oral, Daily, First dose on Mon12/18/20 at 0900 [facility] Medication administered onsite Aspirin 81 MG Delayed Release Oral Tablet aspirin EC t ablet 81 mg aspirin EC tablet 81 mg 12/18/2020 09:00:00 AM EDT 81 mg Oral activ e 81 mg, Oral, Daily, First dose on Mon12/18/20 at 0900 [facility] Medication administered onsite Docusate Sodium 50 MG / sennosides, SENIOR CARE 8.6 MG Oral Tablet senna-docusate (PERICOLACE) 8.6-50 MG 2 tablet senna-docusate (PERICOLACE) 8.6-50 MG 2 tablet 12/17/2020 09:00:00 PM EDT 2 {tbl} Oral active 2 tablet, Oral, Nightly, First dose on Sherrie 12/17/20 at 2100
hold for loose stools
[facility] Medication administered onsite Insulin Glargine [...] to 200 mg/dl &nb sp; No Change
[facility] Medication administered onsite carvedilol 6.25 MG Oral Tablet carvedilol (COREG) tabl et 6.25 mg carvedilol (COREG) tablet 6.25 mg 12/17/2020 09:00:00 PM EDT 6.25 mg Oral active 6.25 mg, Oral, 2 times daily, First dose on Sherrie 12/17/20 at 2100 [facility] Medication administered onsite quetiapine 25 MG Oral Tablet QUEtiapine (SEROquel) tab let 25 mg QUEtiapine (SEROquel) tablet 25 mg 12/17/2020 09:00:00 PM EDT 25 mg Oral aborted 25 mg, Oral, Nightly, First dose on Sherrie 12/17/20 at 2100 [facility] Medication administered onsite potassium chloride SA (K-DUR,KLOR-CON) CR tablet 10 mEq [id number] 12/17/2020 09:00:00 PM EDT 10 meq Oral active 10 mEq, Oral, 2 times daily, First dose on Sherrie 12/17/20 at 2100 [facility] Medication administered onsite pregabalin 75 MG Oral Capsule pregabalin (LYRICA) caps ule 75 mg pregabalin (LYRICA) capsule 75 mg 12/17/2020 09:00:00 PM EDT 75 mg Oral active 75 mg, Oral, 2 times daily, First dose on Sherrie 12/17/20 at 2100, For 7 days [facility] Medication administered onsite latanoprost 0.05 MG/ML Ophthalmic Soluti on latanoprost (XALATAN) 0.005 % ophthalmic solution 1 drop latanoprost (XALATAN) 0.005 % ophthalmic solution 1 drop 12/17/2020 09:00:00 PM EDT 1 [drp] active 1 drop, Both Eyes, Nightly, First dose on Sherrie 12/17/20 at 2100
Therapeutic substitution for home medication: JAYDEN
[facility] Medication administered onsite Allopurinol 100 MG Oral Tablet allopurinol (ZYLOPRIM) tablet 100 mg allopurinol (ZYLOPRIM) tablet 100 mg 12/17/2020 09:00:00 PM EDT 100 mg Oral active 100 mg, Oral, 2 times daily, First dose on Sherrie 12/17/20 at 2100 [facility] Medication administered onsite ferrous gluconate 324 MG Oral Tablet ferrous gluconate (FERGON) tablet 324 mg ferrous gluconate (FERGON) tablet 324 mg 12/17/2020 09:00:00 PM EDT 324 mg Oral active 324 mg, Oral, 2 times daily, First dose on Sherrie 12/17/20 at 2100
separate as far as possible from antacids, take with food
[facility] Medication administered onsite Calcium Carbonate 1250 MG / Cholecalcife rol 200 UNT Oral Tablet calcium-vitamin D (OSCAL-500) 500-200 MG-UNIT per tablet 1 tablet calcium-vitamin D (OSCAL-500) 500-200 MG-UNIT per tablet 1 tablet 12/17/2020 09:00:00 PM EDT 1 {tbl } Oral active 1 tablet, Oral, 2 times lia y, First dose on Mon12/17/20 at 2100 [facility] Medication administered onsite 500 ML [...] 1 unit/kg/hr IV58.1 - 87 Therapeutic, No Ruh[place]aw83.1 - 97 Decrease infusion 1 unit/kg/hr IV [...] single port tubing (Smart[employer] Infusion Set ref [id number]). Medication and tubing is to be discarded if infusion off for 4 hours.
[facility] Medication administered onsite Insulin Lispro [...] cover POC glucose at 08:00, 12:00, 17:00.
[facility] Medication administered onsite valsartan 80 MG Oral Tablet valsartan (DIOVAN) tablet 40 mg valsartan (DIOVAN) tablet 40 mg 12/17/2020 03:00:00 PM EDT 40 mg Oral activ e 40 mg, Oral, Daily, First dose on Sherrie 12/17/20 at 1500 [facility] Medication administered onsite Calcitriol 0.43053 MG Oral Capsule calcitriol (ROCALTR OL) capsule 0.25 mcg calcitriol (ROCALTROL) capsule 0.25 mcg 12/17/2020 03:00:00 PM EDT 0.25 ug Oral active 0.25 mcg, Oral, Lia y, First dose on Mon12/17/20 at 1500 [facility] Medication administered onsite atorvastatin 80 MG Oral Tablet atorvastatin (LIPITOR) tablet 80 mg atorvastatin (LIPITOR) tablet 80 mg 12/17/2020 03:00:00 PM EDT 80 mg Oral aborted 80 mg, Oral, Daily, First dose on Sherrie 12/17/20 at 1500 [facility] Medication administered onsite pantoprazole 40 MG Delayed Release Oral Tablet pantoprazole (PROTONIX) EC tablet 40 mg pantoprazole (PROTONIX) EC tablet 40 mg 12/17/2020 03:00:00 PM E DT 40 mg Oral active Gastroesophageal Reflux Diseas e 40 mg, Oral, Daily, Indications: Gastroesophageal Reflux Disease, First dose on Sherrie 12/17/20 at 1500
Therapeutic substitution for home medication: omeprazole
[facility] Gastroesophageal Reflux Disease Medication administered onsite piperacillin-tazobactam (ZOSYN) 3.375 g in sodium chloride (NS) 0.9 % 100 mL IV pigtail 12/17/2020 03:00:00 PM EDT 3.375 g Intravenous aborted Skin and Soft Tissue Infection 3.375 g, Intravenous, Admini ster over 30 Minutes, Every 6 hours (relative), First dose on Sherrie 12/17/20 at 1500 [facility] Skin and Soft Tissue Infection Medication administered onsite Oxycodone Hydrochloride 5 MG Oral Tablet oxyCODONE (ROXICODONE) immediate release tablet 5 mg oxyCODONE (ROXICODONE) immediate release tablet 5 mg 12/17/2020 02:43:41 PM EDT 5 mg Oral active 5 mg, Oral, Every 4 hours PRN, moderate pain (4-6), severe pain (7-10), Starting on Sherrie 12/17/20 at 1443, For 7 days [facility] Medication administered onsite normal saline flush 0.9 % injection 3 mL [id number] 12/17/2020 02:00:00 PM EDT 3 mL Intravenous active 3 mL , Intravenous, Every 8 hours (scheduled), First dose on Sherrie 12/17/20 at 1400
flush per protocol, D/C Main IV fluid if appropriate
[facility] Medication administered onsite sodium chloride 0.9% (NS) infusion 6157-3264-24 12/17/2020 02:00:00 P M EDT Intravenous aborted at 50 mL/hr, Intravenous, Continuous, Starting on Sherrie 12/17/20 at 1400 [facility] Medication administered onsite Nitroglycerin 0.4 MG Sublingual Tablet n itroglycerin (NITROSTAT) SL tablet 0.4 mg nitroglycerin (NITROSTAT) SL tablet 0.4 mg 12/17/2020 01:55:32 P M EDT 0.4 mg Sublingual active 0.4 mg, S ublingual, Every 5 min PRN, chest pain, Starting on Sherrie 12/17/20 at 1355
May administer up to 3 doses per episode.
[facility] Medication administered onsite Albuterol 0.83 MG/ML Inhalant Solution a lbuterol (PROVENTIL) nebulizer solution 2.5 mg albuterol (PROVENTIL) nebulizer solution 2.5 mg 2020 01:55:14 PM EDT 2.5 mg active 2.5 mg, Nebulization, Every 6 hours PRN, shortness of breath, Starting on Sherrie 12/17/20 at 1355 [facility] Medication administered onsite Bisacodyl 10 MG Rectal Suppository bisacodyl (DULCOLAX ) suppository 10 mg bisacodyl (DULCOLAX) suppository 10 mg 12/17/2020 01:18:58 PM EDT 10 mg Rectal active 10 mg, Rectal, Daily PRN, constipation, Starting on Sherrie 12/17/20 at 1318
Hold for BM. If senna-docusate and milk of magnesia are not effective
[facility] Medication administered onsite ondansetron (ZOFRAN) injection 4 mg [id number] 12/17/2020 01:18:5 8 PM EDT 4 mg Intravenous active 4 mg, In travenous, Every 4 hours PRN, nausea, vomiting, Starting on Sherrie 12/17/20 at 1318 [facility] Medication administered onsite Acetaminophen 325 [...] [facility] sodium chloride 0.9% (NS) infusion [id number] 09/14/2020 02:00:00 P M EDT Intravenous active at 100 mL/hr, Intravenous, Continuous, Starting on Mon09/14/20 at 1400, Pre-op [facility] Medication administered onsite iodixanol (VISIPAQUE) 320 MG/ML injection 150 mL [id number] 09/14/2020 12:21:01 PM EDT 150 mL Intra-arterial completed 150 mL, Intra-arterial, Once in imaging, contrast, Starting on Mon09/14/20 at 1221, For 1 dose [facility] Medication administered onsite protamine injection [id number] 09/14/2020 12:05:31 PM EDT completed Code/trauma/sedation medication, Startin g on Mon09/14/20 at 1205 [facility] Medication administered onsite heparin (porcine) injection [id number] 09/14/2020 11:45:23 AM EDT completed Code/trauma/sedation medication, Starting on Mon09/14/20 at 1145 [facility] Medication administered onsite 2 ML Midazolam 1 MG/ML Injection midazolam (VERSED) in jection midazolam (VERSED) injection 09/14/2020 11:38:47 AM EDT Intravenous co mpleted Intravenous, Code/trauma/sedation medication, Starting on Mon09/14/20 at 1138 [facility] Medication administered onsite fentaNYL Citrate (PF) (SUBLIMAZE) injection [id number] 09/14/2020 11:38:43 AM EDT Intravenous completed In travenous, Code/trauma/sedation medication, Starting on Mon09/14/20 at 1138 [facility] Medication administered onsite sodium chloride 0.9% (NS) infusion [id number] 09/14/2020 10:00:00 A M EDT Intravenous active at 75 mL/hr, Intravenous, Continuous, Starting on Mon09/14/20 at 1000, Pre-op [facility] Medication administered onsite normal saline flush 0.9 % injection 3 mL [id number] 09/14/2020 10:00:00 AM EDT 3 mL Intravenous active 3 mL , Intravenous, Every 8 hours (scheduled), First dose on 09/14/20 at 1000, Pre-op
Rapid push positive pressure flushing shall be performed with a 10 cc normal saline syringe to check the PATENCY of a PIV site prior to any infusion therapy initiation unless resistance is met.
[facility] Medication administered onsite 1 % 09/08/2020 12:00:00 AM EDT cream 50 APPLY TOPICALLY TO ULCER TWO TIMES A DAY APPLY TOPICALLY TO ULCER TWO TIMES A DAY SOLD: 09/10/2020 [facility] Vitamin K 1 5 MG Oral Tablet PHYTONADIONE (VIT K1) 08/16/2020 12 :00:00 AM EDT tablet 2 TAKE ONE TABLET BY MOUTH NOW AND TAKE ONE TOMMOROW TAKE ONE TABLET BY MOUTH NOW AND TAKE ONE TOMMOROW SOLD: 08/16/2020 [facility] doxycycline hyclate 100 MG Oral Capsule DOXYCYCLINE HYCLATE 08/06/2020 12:00:00 AM EDT capsule 20 TAKE ONE CAPSULE BY MOUTH TW ICE A DAY TAKE ONE CAPSULE BY MOUTH TWICE A DAY SOLD: 08/08/2020 [facility] doxycycline hyclate 100 MG Oral Capsule Doxycycline Hyclate 08/06/2020 12:00:00 AM EDT active MEDENT (Jonelle Sotomayor MD) 1 mg 07/28/2020 12:00:00 AM EDT tablet 180 TAKE 3MG ( 3 TABLETS) BY MOUTH ONCE DAILY TAKE 3MG ( 3 TABLETS) BY MOUTH ONCE DAILY SOLD: 08/04/2020 [facility] 3 mg 07/19/2020 12:00:00 AM EST [...] TABLET BY MOUTH EVERY DAY SOLD: 07/21/2020 [facility] 80 mg 07/17/2020 12:00:00 AM EST [...] saline flush 0.9 % injection 3 mL [id number] 06/12/2020 02:00:00 PM EST 3 mL Intravenous active 3 mL , Intravenous, Every 8 hours (scheduled), First dose on Mon06/12/20 at 1400, Pre-op
Rapid push positive pressure flushing shall be performed with a 10 cc normal saline syringe to check the PATENCY of a PIV site prior to any infusion therapy initiation unless resistance is met.
[facility] Medication administered onsite normal saline flush 0.9 % injection 3 mL [id number] 06/12/2020 02:00:00 PM EST 3 mL Intravenous active 3 mL , Intravenous, PROTOCOL, First dose on Mon06/12/20 at 1400, Pre-op
flush per protocol, D/C Main IV fluid if appropriate
[facility] Medication administered onsite iopamidol (ISOVUE-370) 76 % [id number] 06/12/2020 01:05:15 PM EST active As needed, Starting Mon06/12/20 at 1305, Intra-Procedur e [facility] Medication administered onsite lidocaine 1 % injection [id number] 06/12/2020 12:50:16 PM EST active As needed, Starting Mon06/12/20 a t 1250, Intra-Procedure [facility] Medication administered onsite fentaNYL Citrate (PF) (SUBLIMAZE) injection [id number] 06/12/2020 12:49:27 PM EST active As neede d, Starting Mon06/12/20 at 1249, Intra-Procedure [facility] Medication administered onsite 2 ML Midazolam 1 MG/ML Injection midazolam (VERSED) in jection midazolam (VERSED) injection 06/12/2020 12:49:08 PM EST active As needed, Starting Mon06/12/20 at 1249, Intra-Procedure [facility] Medication administered onsite sodium chloride 0.9% (NS) infusion [id number] 06/12/2020 11:00:00 AM EST 100 mL/h Intravenous active at 100 m L/hr, 100 mL/hr, Intravenous, Continuous, Starting Mon06/12/20 at 1100, Pre-op
Start two hours prior to scheduled start time
[facility] Medication administered onsite Acetaminophen 325 [...] mg from all sources in 24 hours."
[facility] Medication administered onsite clopidogrel 75 [...] A DAY SOLD: 04/26/2020 [facility] Calcitriol 0.06475 MG Oral Capsule 0.25 mcg CALCITRIOL 04/19/2020 [...] MEDENT (Jonelle Sotomayor MD) Lactobacillus rhamnosus GG [id number] UNT Oral Capsule Cult urelle 03/30/2020 12:00:00 [...] 12:00:00 AM EDT active [facility] ([facility] Bumetanide 1 MG Oral Tablet BUMETANIDE [...] ONCE DAILY SOLD: 01/04/2020 [facility] Calcitriol 0.70659 MG Oral Capsule 0.25 mcg CALCITRIOL 07/22/2019 12:00:00 AM EDT capsule 90 TAKE ONE CAPSULE BY MOUTH EV ART DAY TAKE ONE CAPSULE BY MOUTH EVERY DAY SOLD: 01/23/2020 [facility] torsemide 10 MG Oral Tablet torsemide (DEMADEX) 10 MG tablet torsemide (DEMADEX) 10 MG tablet 40 mg Oral aborted Ta ke 40 mg by mouth 2 (two) times a day [facility] quetiapine 25 MG Oral Tablet QUEtiapine (SEROQUEL) 25 MG tablet QUEtiapine (SEROQUEL) 25 MG tablet 25 mg Oral aborted Take 25 mg by mouth nightly [facility] Insurance Providers Payer name Policy type / Coverage type Policy ID Covered republican ID Covered republican's relationship to estrella Policy Estrella Plan Information Medicare Medicare Primary [id number] ..[id number] Family Dependent [id number] Medicare Medicare Primary [id number] .[id number]. [id number] Family Dependent [id number] Medicare Medicare Primary [id number] .[id number]. [id number] Family Dependent [id number] MEDICARE [id number] xxxxxxxxxxx [id number] Medicare Medicare Primary [id number] .[id number]. [id number] Family Dependent [id number] MEDICARE [id number] Keerthi [id number] A MEDICARE [id number] Keerthi [id number] Medicare Medicare Primary [id number]. [id number] Family Dependent [id number] MEDICARE A [id number] Self [id number] A [employer] OPTIONS [id number] SP [id number] [facility] [id number] Keerthi [id number] [facility] 2 [id number] 1 [id number] 1 [facility] [id number] xxxxxxxxxxx [id number] AAR U [id number] Self [id number] [employer] [id number]. [id number] Self [id number] [employer] [id number]. [id number] Self [id number] [employer] [id number]. [id number] Self [id number] [employer] [id number]. [id number] Self [id number] [employer] [id number] [id number]. [id number] Self [id number] [facility] [employer] [id number] Self [id number] [place] Medicare Part B [id number] Self [id number] INSURANCE COVID-19 COVID Keerthi C [place] MEDICARE C [id number] S [id number] A Aar Medigap Part B [id number] 1255.0 Self [id number] Medicare Part B Medicare Primary [id number] Self [id number] [facility] PI PI MEDICARE PI PI [employer] Medigap Part B [id number] Family Dependent [id number] [employer] Options Medigap Part B [id number] Self [id number] Medicare Part A [place] Primary [id number] Self [id number] [employer] [place] [id number] 18 [id number] MEDICARE PART A [facility] [id number] 18 [id number] [employer] Medigap Part B [id number] Family Dependent [id number] [employer] Medigap Part B [id number] 1255.0 Self [id number] Medicare Part B Medicare Primary [id number] Self [id number] [employer] Medigap Part B [id number] 1255.0 Self [id number] Medicare Part B Medicare Primary [id number] Self [id number] [employer] [id number] Self Medicare Part B Medicare Primary [id number] Self MEDICARE [id number] SP [id number] MEDICARE -O/P [id number] 18 [id number] SELF PAY UNAVAILABLE UNAVAILA BLE MEDICARE PART A -RECURRING [id number] 18 [id number] [employer] OPTIONS [id number] SP [id number] SELF PAY 2 UNAVAILABLE 1 UNAVAILA BLE MEDICARE -RECURRING [id number] 18 [id number] [employer] OPTIONS [id number] SP [id number] MEDICARE PART A-O/P [id number] 18 [id number] [facility] HEALTH CARE OPTIONS-O/P [id number] 18 [id number] MEDICARE PART A -I/P [id number] 18 [id number] [facility] HEALTHCARE [id number] 18 [id number] MEDICARE CO [id number] 18 [id number] MEDICARE PART A [facility] [id number] 18 [id number] MEDICARE PART A-O/P [id number] 18 [id number] [facility] Medigap Part B [id number] 1255.0 Self [id number] Medicare Part B Medicare Primary [id number] Self [id number] MEDICARE -RECURRING [id number] 18 [id number] [facility] HEALTH CARE OPTIONS -RECURRING [id number] 18 [id number] [facility] [id number] Family Dependent [id number] MEDICARE -SWING BED [id number] 18 [id number] Aar Medigap Part B [id number] Family Dependent [id number] MEDICARE PART A -I/P [id number] 18 [id number] [facility] Medigap Part B [id number] 1255.0 Self [id number] Medicare Part B Medicare Primary [id number] Self [id number] Aar Medigap Part B [id number] Family Dependent [id number] MEDICARE [id number] SP [id number] A AARP O [id number] S [id number] Problems, Conditions, and Diagnoses Code Display Name Description Problem Type Effective Dates Data Source(s) I73.9 Peripheral vascular disease, unspecified Peripheral vascular disease, unspecified Diagnosis 12/17/2020 11:58:00 AM EDT [facility] I99.8 Other disorder of circulatory system Other disor melia of circulatory system Diagnosis 12/17/2020 11:58:00 AM EDT [facility] I6523 Occlusion and stenosis of bilateral rao tid arteries Occlusion and stenosis of bilateral carotid arteries Diagnosis 12/11/2020 10:41:00 A M EDT [facility] D698 Other specified hemorrhagic conditions O ther specified hemorrhagic conditions Diagnosis 12/11/2020 10:41:00 AM EDT [facility] [id number] Encounter for other preprocedural examin ation Encounter for other preprocedural examination Diagnosis 12/11/2020 10:41:00 AM EDT [facility] E039 Hypothyroidism, unspecified Hypothyroidism, unspecifie d Diagnosis 10/09/2020 03:14:00 PM EDT [facility] M6281 Muscle weakness (generalized) Muscle weakness (general ized) Diagnosis 10/09/2020 03:14:00 PM EDT [facility] 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 Diagnosis 10/09/2020 03:14:00 PM EDT [facility] Z794 penitentiary (current) use of insulin vermin exterminator (cu rrent) use of insulin Diagnosis 10/09/2020 03:14:00 PM EDT [facility] E119 Type 2 diabetes mellitus without complic ations Type 2 diabetes mellitus without complications Diagnosis 10/09/2020 03:14:00 PM EDT [facility] J449 Chronic obstructive pulmonary disease, u nspecified Chronic obstructive pulmonary disease, unspecified Diagnosis 10/09/2020 03:14:00 PM EDT [facility] Z952 Presence of prosthetic heart valve Presence of p rosthetic heart valve Diagnosis 10/09/2020 03:14:00 PM EDT [facility] I110 Hypertensive heart disease with heart fa ilure Hypertensive heart disease with heart failure Diagnosis 10/09/2020 03:14:00 PM EDT [facility] L308 Other specified dermatitis Other specified dermatitis Diagnosis 10/09/2020 03:14:00 PM EDT [facility] G40035 Unspecified atherosclerosis of [place] arteries of extremities, unspecified extremity Unspecified atherosclerosis of [place] ar teries of extremities, unspecified extremity Diagnosis 10/09/2020 03:14:00 PM ED T [facility] E785 Hyperlipidemia, unspecified Hyperlipidemia, unspecifie d Diagnosis 10/09/2020 03:14:00 PM EDT [facility] I5020 Unspecified systolic (congestive) heart failure Unspecified systolic (congestive) heart failure Diagnosis 10/09/2020 03:14:00 PM EDT [facility] I509 Heart failure, unspecified Heart failure, unspecified Diagnosis 10/09/2020 03:14:00 PM EDT [facility] Z1152 ENCOUNTER FOR SCREENING FOR COVID-19 ENCOUNTER F OR SCREENING FOR COVID-19 Diagnosis 10/09/2020 12:19:00 PM EDT [facility] M7989 Other specified soft tissue disorders Ot her specified soft tissue disorders Diagnosis 10/09/2020 12:19:00 PM EDT [facility] I5021 Acute systolic (congestive) heart failur e Acute systolic (congestive) heart failure Diagnosis 10/09/2020 12:19:00 PM EDT [facility] I70.212 Atherosclerosis [place] ar teries of extremities with intermittent claudication, left leg Atherosclerosis of [place] arteries of ex Diagnosis 09/14/2020 09:19:00 AM EDT [facility] R94.39 Abnormal result of other cardiovascular function study Abnormal result of other cardiovascular Diagnosis 06/12/2020 09:59:00 AM EST [facility] 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 Acute on chronic combined systolic (antoinette Diagnosis 06/12/2020 09:59:00 AM EST [facility] 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 M8588 Other specified disorders of bone densit y and structure, other site Other specified disorders of bone density and structure, other site Diagnosis 06/10/2020 11:30:00 AM [facility] Z711 Person with feared health complaint in w cathleen no diagnosis is made Person with feared health complaint in whom no diagnosis is made Diagnosis 06/02/2020 09:04:00 AM 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 I4891 Unspecified atrial fibrillation Unspecified atrial fib rillation Diagnosis 05/19/2020 10:54:00 AM [facility] N390 Urinary tract infection, site not specif ied Urinary tract infection, site not specified Diagnosis 05/19/2020 10:54:00 AM [facility] Z9981 Dependence on supplemental oxygen Dependence on supplemental oxygen Diagnosis 05/09/2020 06:50:00 PM [facility] B9629 Other Escherichia coli [E. c dirk] as the cause of diseases classified elsewhere Other Escherichia coli [E. coli] as the cause of diseases classified elsewhere Diagnosis 05/09/2020 06:50:00 PM [facility] G4700 Insomnia, unspecified Insomnia, unspecified Diagnosis 05/09/2020 06:50:00 PM [facility] F22 Delusional disorders Delusional disorders Diagnosis 05/09/2020 06:50:00 PM [facility] J189 Pneumonia, unspecified organism Pneumonia, unspecified organism Diagnosis 05/09/2020 06:50:00 PM [facility] E876 Hypokalemia Hypokalemia Diagnosis 05/06/2020 04:16:00 PM [facility] E559 Vitamin D deficiency, unspecified Vitamin D defi ciency, unspecified Diagnosis 05/06/2020 04:16:00 PM [facility] I74872 Atherosclerotic heart diseas e [place] coronary artery with other forms of angina pectoris Atherosclerotic heart disease of [place] coronary artery with other forms of angina pectoris Diagnosis 05/06/2020 04:16:00 PM [facility] E7800 Pure hypercholesterolemia, unspecified P ure hypercholesterolemia, unspecified Diagnosis 05/06/2020 04:16:00 PM [facility] M109 Gout, unspecified Gout, unspecified Diagnosis 03/25/2020 09:00:00 AM [facility] Z950 Presence of cardiac pacemaker Presence of cardiac pace maker Diagnosis 03/25/2020 09:00:00 AM [facility] J181 Lobar pneumonia, unspecified organism Lo bar pneumonia, unspecified organism Diagnosis 03/25/2020 09:00:00 AM [facility] E1165 Type 2 diabetes mellitus with hyperglyce luis Type 2 diabetes mellitus with hyperglycemia Diagnosis 03/23/2020 02:25:00 PM [facility] L97.524 [id number] Non-pressure chronic ulcer of other part of left foot with necrosis of bone Problem 02/01/2021 12:00:00 AM EDT eCW1 ([facility]) B35.1 [id number] Tinea unguium Problem 02/01/2021 12:00:00 AM EDT eCW1 ([facility]) I70.249 [id number] Atherosclerosis of n ative arteries of left leg with ulceration of unspecified site Problem 02/01/2021 12:00:00 AM EDT eCW1 ([facility]) [id number] Urinary incontinence Urinary incontinence Problem 12/17/2020 12:00:00 AM EDT [facility] ([facility]) 83821234 Sleep apnea Sleep apnea Problem 12/17/2020 12:00:00 AM EDT [facility] ([facility]) [id number] Peripheral arterial disease Peripheral arterial diseas e Problem 12/17/2020 12:00:00 AM EDT [facility] ([facility]) [id number] Osteoarthritis Osteoarthritis Problem 12/17/2020 12:00: 00 AM EDT [facility] ([facility]) [id number] Long-term current use of anticoagulant L gayathri-term current use of anticoagulant Problem 12/17/2020 12:00:00 AM EDT [facility] ([facility]) Note: Overview: coumadin 79763632 Hypothyroidism Hypothyroidism Problem 12/17/2020 12:00: 00 AM EDT [facility] ([facility]) 75909732 Hearing loss Hearing loss Problem 12/17/2020 12:00:00 A M EDT [facility] ([facility]) 58804008 Essential hypertension Essential hypertension Problem 12/17/2020 12:00:00 AM EDT [facility] ([facility]) 21220318 Diabetes mellitus Diabetes mellitus Problem 12/17/2020 12:00:00 AM EDT [facility] ([facility]) Note: Overview: Type 2, insulin requirin g 62064278 Coronary arteriosclerosis Coronary arteriosclerosis Pr oblem 12/17/2020 12:00:00 AM EDT [facility] ([facility]) 044059607 Chronic kidney disease Chronic kidney disease Problem 12/17/2020 12:00:00 AM EDT [facility] ([facility]) Note: Overview: renal calculi 791849102 Cerebrovascular accident Cerebrovascular accident Prob lore 12/17/2020 12:00:00 AM EDT [facility] ([facility]) N18.9 Chronic kidney disease Chronic kidney disease 04613957 12/17/2020 12:00:00 AM EDT [facility] E03.9 Hypothyroidism Hypothyroidism 49490296 12/17/2020 12:00: 00 AM EDT [facility] R32 Urinary incontinence Urinary incontinence 73354417 12/17/2020 12:00:00 AM EDT [facility] Z79.01 penitentiary current use of anticoagulant L gayathri term current use of anticoagulant 44422806 12/17/2020 12:00:00 AM EDT [facility] I63.9 Stroke Stroke 47361118 12/17/2020 12:00:00 AM ED T [facility] H91.90 Hearing loss Hearing loss 49077715 12/17/2020 12:00:00 A M EDT [facility] G47.30 Sleep apnea Sleep apnea 22110274 12/17/2020 12:00:00 AM EDT [facility] M19.90 Osteoarthritis Osteoarthritis 73648415 12/17/2020 12:00: 00 AM EDT [facility] E11.9 Diabetes mellitus Diabetes mellitus 64531492 12/17/2020 12:00:00 AM EDT [facility] I10 Hypertension, essential Hypertension, essential 472700 12/17/2020 12:00:00 AM EDT [facility] I25.10 Coronary artery disease Coronary artery disease 358952 12/17/2020 12:00:00 AM EDT [facility] I73.9 PAD (peripheral artery disease) PAD (peripheral artery disease) 38924771 12/17/2020 12:00:00 AM EDT [facility] 99991157 Type 2 diabetes mellitus Type 2 diabetes mellitus Prob lore 02/04/2020 12:00:00 AM EDT MEDROSARIO ([facility] ) Surgeries/Procedures Procedure Description Date Indications Data Source(s) FINE NEEDLE ASPIRATION W/O IMAGING GUIDANCE 02/10/2021 12:00:00 AM EDT eCW1 ([facility]) Med: Cadexomer Iodine gel topical IODOSORB 10 2020 12:00:00 AM EDT eCW1 ([facility]) Med: Cadexomer Iodine gel topical IODOSORB 10 2020 12:00:00 AM EDT eCW1 ([facility]) Medication: Silver Nitrate Stick topically 02/01/2021 12:00:00 AM EDT eCW1 ([facility]) FINE NEEDLE ASPIRATION W/O IMAGING GUIDANCE 02/01/2021 12:00:00 AM EDT eCW1 ([facility]) Medication: 2% Lidocaine intradermal 02/01/2021 12:00: 00 AM EDT eCW1 ([facility]) OFFICE OUTPATIENT VISIT 25 MINUTES 2021 12:00:00 AM EDT YARI ([facility]) GLUC BLD GLUC MNTR DEV CLEARED FDA SPEC HOME USE <td>P OCT GLUCOSE</td><td>Routine</td><td>12/19/2020 1:59 PM EDT</td><td></td><td> </td> 12/19/2020 01:59:00 PM EDT [facility] GLUC BLD GLUC MNTR DEV CLEARED FDA SPEC HOME USE <td>P OCT GLUCOSE</td><td>Routine</td><td>12/19/2020 9:44 AM EDT</td><td></td><td> </td> 12/19/2020 09:44:00 AM EDT [facility] PROTHROMBIN TIME <td>PROTIME-INR</td><td>Rout ine</td><td>12/19/2020 9:14 AM EDT</td><td></td><td> </td> 12/19/2020 09:14:00 AM EDT [facility] BLOOD COUNT COMPLETE AUTOMATED <td>CBC</td><td>Timed</ td><td>12/19/2020 9:14 AM EDT</td><td></td><td> </td> 12/19/2020 09:14:00 AM EDT [facility] BASIC METABOLIC PANEL CALCIUM TOTAL <td>BASIC METABOLI C PANEL</td><td>Timed</td><td>12/19/2020 9:14 AM EDT</td><td></td><td> </td> 12/19/2020 09:14:00 AM EDT [facility] GLUC BLD GLUC MNTR DEV CLEARED FDA SPEC HOME USE <td>P OCT GLUCOSE</td><td>Routine</td><td>12/18/2020 6:41 PM EDT</td><td></td><td> </td> 12/18/2020 06:41:00 PM EDT [facility] GLUC BLD GLUC MNTR DEV CLEARED FDA SPEC HOME USE <td>P OCT GLUCOSE</td><td>Routine</td><td>12/18/2020 4:11 PM EDT</td><td></td><td> </td> 12/18/2020 04:11:00 PM EDT [facility] US VASC ACCESS SITS VSL PATENCY NDL ENTRY <td>IR IS AR TERIOGRAM EXTREMITY SINGLE LEFT</td><td>Routine</td><td>12/18/2020 2:24 PM EDT</td><td></td><td> </td> 12/18/2020 02:24:58 PM EDT [facility] GLUC BLD GLUC MNTR DEV CLEARED FDA SPEC HOME USE <td>P OCT GLUCOSE</td><td>Routine</td><td>12/18/2020 11:19 AM EDT</td><td></td><td> </td> 12/18/2020 11:19:00 AM EDT [facility] GLUC BLD GLUC MNTR DEV CLEARED FDA SPEC HOME USE <td>P OCT GLUCOSE</td><td>Routine</td><td>12/18/2020 10:54 AM EDT</td><td></td><td> </td> 12/18/2020 10:54:00 AM EDT [facility] GLUC BLD GLUC MNTR DEV CLEARED FDA SPEC HOME USE <td>P OCT GLUCOSE</td><td>Routine</td><td>12/18/2020 10:35 AM EDT</td><td></td><td> </td> 12/18/2020 10:35:00 AM EDT [facility] GLUC BLD GLUC MNTR DEV CLEARED FDA SPEC HOME USE <td>P OCT GLUCOSE</td><td>Routine</td><td>12/18/2020 10:12 AM EDT</td><td></td><td> </td> 12/18/2020 10:12:00 AM EDT [facility] GLUC BLD GLUC MNTR DEV CLEARED FDA SPEC HOME USE <td>P OCT GLUCOSE</td><td>Routine</td><td>12/18/2020 9:51 AM EDT</td><td></td><td> </td> 12/18/2020 09:51:00 AM EDT [facility] THROMBOPLASTIN TIME PARTIAL PLASMA/WHOLE BLOOD <td>APTT</td><td>STAT</td><td>12/18/2020 7:27 AM EDT</td><td></td><td> </td> 12/18/2020 07:27:00 AM EDT [facility] PROTHROMBIN TIME <td>PROTIME-INR</td><td>Add- On</td><td>12/18/2020 7:27 AM EDT</td><td></td><td> </td> 12/18/2020 07:27:00 AM EDT [facility] BLOOD COUNT COMPLETE AUTOMATED <td>CBC</td><td>Timed</ td><td>12/18/2020 7:27 AM EDT</td><td></td><td> </td> 12/18/2020 07:27:00 AM EDT [facility] BLOOD TYPING ABO <td>TYPE AND SCREEN</td><td> Routine</td><td>12/18/2020 7:27 AM EDT</td><td></td><td> </td> 12/18/2020 07:27:00 AM EDT [facility] BASIC METABOLIC PANEL CALCIUM TOTAL <td>BASIC METABOLI C PANEL</td><td>Timed</td><td>12/18/2020 7:27 AM EDT</td><td></td><td> </td> 12/18/2020 07:27:00 AM EDT [facility] Catheter Placement Arterial System Init 2ND Ord Abdom/Pel/Lo w Ext 12/18/2020 12:00:00 AM EDT MEDENT ([facility]) Angiography-Extremity Unilateral 12/18/2020 12:00:00 A M EDT [facility] ([facility]) Ultrasound Guidance 12/18/2020 12:00:00 AM EDT [facility] ([facility] [facility]) Moderate Sedation Services; Same Phys Intl 15 Mins; PT >= 5 Years 12/18/2020 12:00:00 AM EDT [facility] ([facility]) HEMOGLOBIN GLYCOSYLATED A1C <td>HEMOGLOBIN A1C</td><td>Routine</td><td>12/17/2020 8:29 PM EDT</td><td></td><td> </td> 12/17/2020 08:29:00 PM EDT [facility] THROMBOPLASTIN TIME PARTIAL PLASMA/WHOLE BLOOD <td>APTT</td><td>Routine</td><td>12/17/2020 8:28 PM EDT</td><td></td><td> </td> 12/17/2020 08:28:00 PM EDT [facility] COVID/FLU AB/RSV PCR <td>COVID/FLU AB/RSV PCR</td ><td>STAT</td><td>12/17/2020 3:10 PM EDT</td><td></td><td> </td> 12/17/2020 03:10:00 PM EDT [facility] ECG ROUTINE ECG W/LEAST 12 LDS TRCG ONLY W/O I&R <td>E CG 12- LEAD</td><td>Routine</td><td>12/17/2020 3:02 PM EDT</td><td></td><td></td> 12/17/2020 03:02:25 PM EDT [facility] THROMBOPLASTIN TIME PARTIAL PLASMA/WHOLE BLOOD <td>APTT</td><td>Routine</td><td>12/17/2020 1:36 PM EDT</td><td></td><td> </td> 12/17/2020 01:36:00 PM EDT [facility] PROTHROMBIN TIME <td>PROTIME-INR</td><td>Rout ine</td><td>12/17/2020 1:36 PM EDT</td><td></td><td> </td> 12/17/2020 01:36:00 PM EDT [facility] BLOOD COUNT COMPLETE AUTOMATED <td>CBC</td><td>Routine </td><td>12/17/2020 1:36 PM EDT</td><td></td><td> </td> 12/17/2020 01:36:00 PM EDT [facility] HEMOGLOBIN GLYCOSYLATED A1C <td>HEMOGLOBIN A1C</td><td >Add-On</td><td>12/17/2020 1:36 PM EDT</td><td></td><td> </td> 12/17/2020 01:36:00 PM EDT [facility] BASIC METABOLIC PANEL CALCIUM TOTAL <td>BASIC METABOLI C PANEL</td><td>Routine</td><td>12/17/2020 1:36 PM EDT</td><td></td><td> </td> 12/17/2020 01:36:00 PM EDT [facility] Electrocardiogram Tracing Only 12/17/2020 12:00:00 AM EDT [facility] ([facility]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 2020 12:00:00 AM EDT [facility] (Bolivar Sotomayor MD) OFFICE OUTPATIENT VISIT 15 MINUTES 12/14/2020 12:00:00 AM EDT [facility] (Bolivar Sotomayor MD) OFFICE OUTPATIENT NEW 45 MINUTES 11/27/2020 12:00:00 A M EDT [facility] (Ric Sotelo BOW TACKER) DUPLEX SCAN EXTRACRANIAL ART COMPL BI STUDY [...] 12:00:00 AM EDT [facility] (Bolivar Sotomayor MD) [facility] HOSPITAL CARE/DAY 15 MINUTES 10/12/2020 12:00:00 AM EDT [facility] (Bolivar Sotomayor MD) [facility] HOSPITAL CARE/DAY 15 MINUTES 10/11/2020 12:00:00 AM EDT [facility] (Bolivar Sotomayor MD) Plain Radiography of Chest Plain Radiography of Chest 2020 12:00:00 AM EDT [facility] HOSPITAL CARE/DAY 25 MINUTES 10/10/2020 12:00:00 AM EDT [facility] (Bolivar Sotomayor MD) INITIAL HOSPITAL CARE/DAY 50 MINUTES 10/09/2020 12:00: 00 AM EDT [facility] (Bolivar Sotomayor MD) Monitoring of Cardiac Electrical Activity, External Ap proach Monitoring of Cardiac Electrical Activity, External Approach 10/09/2020 12:00:00 AM EDT [facility] Introduction of Vasopressor into Peripheral Vein, Perc utaneous Approach Introduction of Vasopressor into Peripheral Vein, Percutaneous Approach 10[facility] 09/23/2020 12:00:00 AM EDT [facility] ([facility]) SLCTV CATHJ 2ND ORDER ABDL PEL/LXTR ART BRNCH <td>IR I S ARTERIOGRAM EXTREMITY SINGLE LEFT</td><td>Routine</td><td>09/14/2020 12:20 PM EDT</td><td> Atherosclerosis of [place] arteries of extremities with intermittent claudication, left leg</td><td> </td> 09/14/2020 12:20:36 PM EDT Atherosclerosis of [place] arteries of ex tremities with intermittent claudication, left leg [facility] Atherosclerosis of [place] arteries of ex tremities with intermittent claudication, left leg GLUC BLD GLUC MNTR DEV CLEARED FDA SPEC HOME USE <td>P OCT GLUCOSE</td><td>Routine</td><td>09/14/2020 10:13 AM EDT</td><td></td><td> </td> 09/14/2020 10:13:00 AM EDT [facility] PROTHROMBIN TIME <td>POCT INR</td><td>Routine </td><td>09/14/2020 10:00 AM EDT</td><td></td><td> </td> 09/14/2020 10:00:00 AM EDT [facility] Femoral-Popliteal Angioplasty 09/14/2020 12:00:00 AM E DT [facility] ([facility]) Angiography-Extremity Unilateral 09/14/2020 12:00:00 A M EDT [facility] ([facility]) Moderate Sedation Services; Same Phys Intl 15 Mins; PT >= 5 Years 09/14/2020 12:00:00 AM EDT [facility] ([facility]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 2020 12:00:00 AM EDT [facility] (Bolivar Sotomayor MD) OFFICE OUTPATIENT VISIT 15 MINUTES 09/10/2020 12:00:00 AM EDT [facility] (Bolivar Sotomayor MD) OFFICE OUTPATIENT VISIT 25 MINUTES 08/06/2020 12:00:00 AM EDT [facility] (Bolivar Sotomayor MD) DUP-SCAN LXTR ART/ARTL BPGS UNI/LMTD STUDY 08/03/2020 12:00:00 AM EDT [facility] ([facility]) DUP-SCAN LXTR ART/ARTL BPGS UNI/LMTD STUDY 08/03/2020 12:00:00 AM EDT [facility] ([facility]) OFFICE OUTPATIENT VISIT 15 MINUTES 08/03/2020 12:00:00 AM EDT [facility] ([facility]) ECG ROUTINE ECG W/LEAST 12 LDS [...] Abnormal result of other cardiovascular function study [facility] Abnormal result of other cardiovascular function study GLUC BLD GLUC MNTR DEV CLEARED FDA SPEC HOME USE <td>P OCT GLUCOSE</td><td>Routine</td><td>06/12/2020 10:34 AM EST</td><td></td><td> </td> 06/12/2020 03:34:00 PM EST [facility] PROTHROMBIN TIME <td>POCT INR</td><td>Routine </td><td>06/12/2020 10:33 AM EST</td><td></td><td> </td> 06/12/2020 03:33:00 PM EST [facility] ECG ROUTINE ECG W/LEAST 12 LDS TRCG ONLY W/O I&R <td>E CG 12- LEAD</td><td>Routine</td><td>06/12/2020 10:25 AM EST</td><td></td><td></td> 06/12/2020 03:25:30 PM EST [facility] Left Heart Cath W/Wo LV & Coronary Angiography 021 12:00:00 AM EST [facility] ([facility]) Interactive Complexity 06/02/2020 12:00:00 AM EST [facility] ([facility]) Psychiatric Diagnostic Evaluation 06/02/2020 12:00:00 AM EST [facility] ([facility]) OFFICE OUTPATIENT VISIT 15 MINUTES 05/21/2020 12:00:00 AM EST [facility] (Bolivar Sotomayor MD) HOSPITAL DISCHARGE DAY MANAGEMENT 30 MIN/< 05/14/2020 12:00:00 AM EST [facility] (Bolivar Sotomayor MD) [facility] HOSPITAL CARE/DAY 15 MINUTES 05/13/2020 12:00:00 AM EST [facility] (Bolivar Sotomayor MD) [facility] HOSPITAL CARE/DAY 15 MINUTES 05/12/2020 12:00:00 AM EST [facility] (Bolivar Sotomayor MD) [facility] HOSPITAL CARE/DAY 15 MINUTES 05/11/2020 12:00:00 AM EST [facility] (Bolivar Sotomayor MD) [facility] HOSPITAL CARE/DAY 15 MINUTES 05/10/2020 12:00:00 AM EST [facility] (Bolivar Sotomayor MD) [facility] HOSPITAL CARE/DAY 15 MINUTES 05/09/2020 12:00:00 AM EST [facility] (Bolivar Sotomayor MD) Computerized Tomography (CT Scan) of Head Computerized Tomography (CT Scan) of Head 05/09/2020 12:00:00 AM [facility] Introduction of Other Anti-infective int o Peripheral Vein, Percutaneous Approach Introduction of Other Anti-infective int o Peripheral Vein, Percutaneous Approach 05/09/2020 12:00:00 AM [facility] HOSPITAL CARE/DAY 15 MINUTES 05/08/2020 12:00:00 AM EST [facility] (Bolivar Sotomayor MD) [facility] HOSPITAL CARE/DAY 25 MINUTES 05/07/2020 12:00:00 AM EST [facility] (Bolivar Sotomayor MD) INITIAL HOSPITAL CARE/DAY 50 MINUTES 05/06/2020 12:00: 00 AM EST [facility] (Bolivar Sotomayor MD) MYOCARDIAL SPECT MULTIPLE STUDIES 04/09/2020 12:00:00 AM EST [facility] (Bolivar Sotomayor MD) Computerized Tomography (CT Scan) of Chest and Abdomen Computerized Tomography (CT Scan) of Chest and Abdomen 03/25/2020 12:00:00 AM [facility] Capillary Blood Collection Finger, Heel, Ear Stick 03/10/2020 12:00:00 AM EST [facility] ([facility] FALLS RISK ASSESSMENT DOCUMENTED 03/09/2020 12:00:00 A M EST [facility] ([facility]) Capillary Blood Collection Finger, Heel, Ear Stick 02/04/2020 12:00:00 AM EDT [facility] ([facility] 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 2019 12:00:00 AM EDT [facility] (Bolivar Sotomayor MD) Results ID Date Data Source [id number] 01/12/2021 09:49:02 AM EDT [facility]FORMATION[facility] MRN Name Date of Age Gend*PT [id number] Joy Dent 1940 80 years F IPPT Location Admission Date/Time Visit ID Attending [id number] 12/17/20 1158 --- --- EPI ID CSN Admitting Prov ider [id number] Toyin Lopez MD([id number])NAME: Joy Maryjewell Babb#: [id number] #: [id number] DATE: 12/18/2020 PT TYPE: C SURACCT #: [id number] : 1940 SEX: femaleReferring Physician:Primary Care Physician: [...] right common femoral artery was accessed using 5-Mauritian micropuncture kit,which was switched to a 5-Mauritian sheath and Omni flush catheter was placed [...] rce(s) Supporting Document(s) ID Date Data Source [id number] 12/20/2020 08:26:05 AM EDT [facility] MRN Name Date of Age Gend*PT [id number] Joy Dent 1940 80 years F IPPT Location Admission Date/Time Visit ID Attending [id number] 12/17/20 1158 --- --- EPI ID CSN Admitting Prov ider [id number] Toyin Lopez MD([id number]) Attestation signed by Toyin Lopez MD at 12/20/2020 8:26 AMI saw and evaluated the patient and reviewed note. I agree with the history,physical and medical decision makingSignature: EDUARDO Huangate: December 20, 2020Time: 8:25 AM --Surgical Discharge SummaryJoy MaryjewellMRN: [id number] date: 021Admitting Physician: EDUARDO Huangischarge date and [...] air or cover for comfort.CHF/hypertension/hyperlipidemia/CAD /history of CA/history of mitral valvereplacement/history of CVACoumadin on hold post procedure. Resume tonight. Will take 1mg nightly untilfollow up INR Monday. Monitor closely while on abx.INR 2.47 today after held 3 days.Home meds ordered:Carvedilol, Diovan, atorvastatin [id number] of asymptomatic hypoglycemia 12/18. Glucose 180 at [...] follow up in wound care center near [place].F/u with Dr Lopez/ Calista in 1-2 months or as needed. 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 Urinary incontinence Hypothyroidism Chronic kidney disease renal calculi Acute on chronic systolic congestive heart failure 11/09/2016 Mitral regurgitation 04/09/2015 PAD (peripheral artery disease) Coronary artery disease Hypertension, essential Diabetes mellitus Type 2, insulin requiring Sleep apnea Osteoarthritis Hearing loss Stroke Coronary artery disease involving [place] heart without angina bqnayzpu44/17/2015Resolved Hospital ProblemsNo resolved problems to display.Discharge Medications:Your [...] Get Your MedicationsThese medications were sent to [facility] [address] [id number] amoxicillin-clavulanate 875-125 MG per tablet oxyCODONE 5 [...] of rheumatic fever Hypertension Hypothyroidism 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 Osteoarthritis PAD [...] e(s) Supporting Document(s) ID Date Data Source [id number] 12/19/2020 06:01:00 PM EDT [facility] ([facility]) Name Value Range Interpretation Code Description Data Vivian rce(s) Supporting Document(s) Laboratory test finding (navigational concept) 180 mg/dL 70-99 [facility] ([facility]) PERFORMED BY [facility] CLINICAL STAFF ID Date Data Source [id number] 12/19/2020 04:08:00 PM EDT [facility] ([facility]) Name Value Range Interpretation Code Description Data Vivian rce(s) Supporting Document(s) Prothrombin time (PT) in control Platelet poor plasma by Coagulation assay 24.6 s 9.20-11.90 [facility] ([facility]) INR in Platelet poor plasma by Coagulation assay 2.47 [facility] ([facility]) SUGGESTED THERAPEUTIC RANGES USING INR F OR STABILIZED ANTICOAGULATED PATIENTS: STANDARD DOSE THERAPY INR 2.0-3.0 DVT, PE, PREVENT DVT OR EMBOLISM HIGH DOSE THERAPY INR 2.5-3.5 PREVENT EMBOLISM FROM MECHANICAL HEART VALVE ID Date Data Source [id number] 12/19/2020 04:01:00 PM EDT [facility] ([facility]) Name Value Range Interpretation Code Description Data Vivian rce(s) Supporting Document(s) Sodium [Moles/volume] in Serum or Plasma 142 mmol/L 136-145 [facility] ([facility]) Potassium [Moles/volume] in Serum or Plasma 4.2 mmol/L 3.6-5.2 [facility] ([facility]) Chloride [Moles/volume] in Serum or Plasma 105 mmol/L 100-108 [facility] ([facility]) Urea nitrogen [Mass/volume] in Serum or Plasma 25 mg/dL 7-24 [facility] ([facility]) Anion gap in Serum or Plasma 2 mmol/L 7-16 [facility] ([facility]) Carbon dioxide, total [Moles/volume] in Serum or Plasma 35 mmol/L 22 -31 [facility] ([facility]) Creatinine [Mass/volume] in Serum or Plasma 1.43 mg/dL 0.60-1.00 [facility] ([facility]) Urea nitrogen/Creatinine [Mass Ratio] in Serum or Plasma 17.5 1 0.0-20.0 [facility] ([facility]) Calcium [Mass/volume] in Serum or Plasma 8.9 mg/dL 8.4-10.2 [facility] ([facility]) Glucose [Mass/volume] in Serum or Plasma 96 mg/dL 70-99 [facility] ([facility]) Glomerular filtration rate/1.73 sq M pre dicted among non-blacks [Volume Rate/Area] in Serum or Plasma by Creatinine-based formula (MDRD) 35 [facility] ([facility]) Glomerular filtration rate/1.73 sq M pre dicted among blacks [Volume Rate/Area] in Serum or Plasma by Creatinine-based formula (MDRD) 43 [facility] ([facility]) Glomerular filtration rate/1.73 sq M pre dicted among non-blacks [Volume Rate/Area] in Serum or Plasma by Creatinine-based formula (MDRD) Laboratory test result [facility] ([facility]) -- NORMAL KIDNEY FUNCTION OR MILD DISEASE - GFR >OR= 60 CHRONIC KIDNEY DISEASE - GFR 15 - 59 RENAL FAILURE - GFR <15 Est. GFR calculation based on the MDRD study equation, which assumes a steady state for creatinine. Est. GFR should not be used for medication dosing. ID Date Data Source [id number] 12/19/2020 03:29:00 PM EDT [facility] Name Value Range Interpretation Code Description Data Vivian rce(s) Supporting Document(s) Leukocytes [#/volume] in Blood by Automated count 7.2 10*3/uL 4.10-11 .00 [facility] ([facility]) Erythrocytes [#/volume] in Blood by Automated count 3.52 10*6/uL 4.00 -5.40 [facility]) Hemoglobin [Mass/volume] in Blood 10.7 g/dL 12.0-16.0 [facility] ([facility]) Erythrocyte mean corpuscular hemoglobin [Entitic mass] by Automated count 30.5 pg 27.0-32.0 [facility] ([facility]) Erythrocyte mean corpuscular volume [Entitic volume] by Auto mated count 91.0 fL 80.0-95.0 [facility] ([facility] ) Hematocrit [Volume Fraction] of Blood by Automated count 32.1 % 3 6.00-47.00 [facility] ([facility]) Erythrocyte mean corpuscular hemoglobin concentration [Mass/volume] by Automated count 33.5 g/dL 32-36 [facility] ([facility]) Erythrocyte distribution width [Ratio] by Automated count 19.0 % 10.5-14.5 [facility] ([facility]) Platelet mean volume [Entitic volume] in Blood by Shawn-Geraldo 9.6 fL 7.1-10.7 [facility] ([facility]) Platelets [#/volume] in Blood by Automated count 154 10*3/uL 150-450 [facility] ([facility]) ID Date Data Source [id number] 12/19/2020 02:02:28 PM EDT [facility] Name Value Range Interpretation Code Description Data Vivian rce(s) Supporting Document(s) POC NOVA GLU 180 mg/dL (70-99) H [facility] [place] [facility] CL[facility] STAFF ID Date Data Source [id number] 12/19/2020 09:48:23 AM EDT [facility] Name Value Range Interpretation Code Description Data Vivian rce(s) Supporting Document(s) POC NOVA GLU 95 mg/dL (70-99) [facility] STAFF ID Date Data Source [id number] 12/19/2020 12:09:01 PM EDT [facility] Name Value Range Interpretation Code Description Data Vivian rce(s) Supporting Document(s) PT 24.6 s (9.2-11.9) H [facility] INR 2.47 [facility] SUGGESTED THERAPEUTIC RANGES USING INR F ORSTABILIZED ANTICOAGULATED PATIENTS:STANDARD DOSE THERAPY INR 2.0-3.0 DVT, PE, PREVENT DVT OR EMBOLISMHIGH DOSE THERAPY INR 2.5-3.5 PREVENT EMBOLISM FROM MECHANICAL HEART VALVE ID Date Data Source [id number] 12/19/2020 12:01:40 PM EDT [facility] Name Value Range Interpretation Code Description Data Vivian rce(s) Supporting Document(s) SODIUM 142 mmol/L (136-145) [facility] POTASSIUM 4.2 mmol/L (3.6-5.2) [facility] CHLORIDE 105 mmol/L (100-108) [facility] CO2 35 mmol/L (22-31) [facility] ANION GAP 2 mmol/L (7-16) L [facility] UREA NITROGEN 25 mg/dL (7-24) H [facility] CREATININE 1.43 mg/dL (0.60-1.00) H [facility] BUN/CREAT RATIO 17.5 RATIO (10.0-20.0) [facility] GLUCOSE 96 mg/dL (70-99) [facility] CALCIUM 8.9 mg/dL (8.4-10.2) [facility] GFR 35 ml/min/1.73m2 (>59) L [facility] GFR ( AMER) 43 ml/min/1.73m2 (>59) L [facility] GFR INTERPRETATION [facility] --NORMAL KIDNEY FUNCTION OR MILD DISEASE - GFR >OR= 60CHRONIC KIDNEY DISEASE - GFR 15 - 59RENAL FAILURE - GFR <15 Est. GFR calculation based on the MDRDstudy equation, which assumes a steadystate for creatinine. Est. GFR should notbe used for medication dosing. ID Date Data Source [id number] 12/19/2020 11:29:47 AM EDT [facility] Name Value Range Interpretation Code Description Data Vivian rce(s) Supporting Document(s) WBC 7.2 10*3/uL (4.1-11.0) [facility] [place] RBC 3.52 10*6/uL (4.00-5.40) L [facility] HGB 10.7 g/dL (12.0-16.0) L [facility] HCT 32.1 % (36.0-47.0) L [facility] MCV 91.0 fL (80.0-95.0) [facility] MCH 30.5 pg (27.0-32.0) [facility] MCHC 33.5 g/dL (32.0-36.0) [facility] RDW 19.0 % (10.5-14.5) [facility] PLT 154 10*3/uL (150-450) [facility] MPV 9.6 fL (7.1-10.7) [facility] ID Date Data Source [id number] 12/18/2020 06:45:05 PM EDT [facility] Name Value Range Interpretation Code Description Data Vivian rce(s) Supporting Document(s) POC NOVA GLU 138 mg/dL (70-99) H [facility] [place] [facility] STA[facility] ID Date Data Source [id number] 12/18/2020 04:14:32 PM EDT [facility] Name Value Range Interpretation Code Description Data Vivian rce(s) Supporting Document(s) POC NOVA GLU 94 mg/dL (70-99) [facility] [place] [facility] ID Date Data Source [id number] 12/18/2020 04:10:00 PM EDT [facility] ([facility]) Name Value Range Interpretation Code Description Data Vivian rce(s) Supporting Document(s) Patient Abo/Rh Laboratory test result [facility] ([facility]) Specimen Expiration Date Laboratory test result [facility] ([facility]) Antibody Screen Laboratory test result M EDENT ([facility]) Testing site Laboratory test result MEDE NT ([facility]) Blood bank comment Laboratory test result [facility] ([facility]) BLOOD TYPE CONFIRMED. ID Date Data Source [id number] 12/18/2020 03:31:00 PM EDT [facility] ([facility]) Name Value Range Interpretation Code Description Data Vivian rce(s) Supporting Document(s) aPTT in Platelet poor plasma by Coagulation assay 130.9 s 22.0-34.3 Above upper panic limits [facility] ([facility]) ALERTED CRITICAL RESULT TO ALERTED CRITI MILLIE RESULT TO ALONZO [id number] ON D4 [id number] [id number] ID Date Data Source [id number] 12/18/2020 02:36:54 PM EDT [facility] Name Value Range Interpretation Code Description Data Vivian rce(s) Supporting Document(s) IR IS ARTERIOGRAM EXTREMITY SINGLE LEFT [facility] ID Date Data Source [id number] 12/18/2020 01:11:27 PM EDT [facility] Name Value Range Interpretation Code Description Data Vivian rce(s) Supporting Document(s) POC NOVA GLU 89 mg/dL (70-99) [facility] [place] [facility] ID Date Data Source [id number] 12/18/2020 01:10:57 PM EDT [facility] Name Value Range Interpretation Code Description Data Vivian rce(s) Supporting Document(s) POC NOVA GLU 72 mg/dL (70-99) [facility] [place] [facility] ID Date Data Source [id number] 12/18/2020 10:38:25 AM EDT [facility] Name Value Range Interpretation Code Description Data Vivian rce(s) Supporting Document(s) POC NOVA GLU 67 mg/dL (70-99) L [facility] [place] [facility] ID Date Data Source [id number] 12/18/2020 10:15:23 AM EDT [facility] Name Value Range Interpretation Code Description Data Vivian rce(s) Supporting Document(s) POC NOVA GLU 62 mg/dL (70-99) L [facility] ID Date Data Source [id number] 12/18/2020 09:55:00 AM EDT [facility] Name Value Range Interpretation Code Description Data Vivian rce(s) Supporting Document(s) POC NOVA GLU 64 mg/dL (70-99) L [facility] [place] [facility] ID Date Data Source [id number] 12/18/2020 02:05:42 PM EDT [facility] Name Value Range Interpretation Code Description Data Vivian rce(s) Supporting Document(s) SODIUM 143 mmol/L (136-145) [facility] POTASSIUM 3.7 mmol/L (3.6-5.2) [facility] CHLORIDE 104 mmol/L (100-108) [facility] CO2 32 mmol/L (22-31) H [facility] ANION GAP 7 mmol/L (7-16) [facility] UREA NITROGEN 30 mg/dL (7-24) H [facility] CREATININE 1.37 mg/dL (0.60-1.00) H [facility] BUN/CREAT RATIO 21.9 RATIO (10.0-20.0) H [facility] GLUCOSE 36 mg/dL (70-99) L [facility] ALERTED CRITICAL RESULT HOLLIE([id number]) ON D.4([id number]) AT 1402 ON 143520 BY [address] CALCIUM 8.6 mg/dL (8.4-10.2) [facility] GFR 37 ml/min/1.73m2 (>59) L [facility] GFR ( AMER) 45 ml/min/1.73m2 (>59) L [facility] GFR INTERPRETATION [facility] --NORMAL KIDNEY FUNCTION OR MILD DISEASE - GFR >OR= 60CHRONIC KIDNEY DISEASE - GFR 15 - 59RENAL FAILURE - GFR <15 Est. GFR calculation based on the MDRDstudy equation, which assumes a steadystate for creatinine. Est. GFR should notbe used for medication dosing. ID Date Data Source [id number] 12/18/2020 12:35:41 PM EDT [facility] Name Value Range Interpretation Code Description Data Vivian rce(s) Supporting Document(s) PT 25.4 s (9.2-11.9) H [facility] INR 2.55 [facility] SUGGESTED THERAPEUTIC RANGES USING INR F ORSTABILIZED ANTICOAGULATED PATIENTS:STANDARD DOSE THERAPY INR 2.0-3.0 DVT, PE, PREVENT DVT OR EMBOLISMHIGH DOSE THERAPY INR 2.5-3.5 PREVENT EMBOLISM FROM MECHANICAL HEART VALVE ID Date Data Source [id number] 12/18/2020 12:10:53 PM EDT Lab [facility] SPEC EXP DATE 12/21/2020ATI ENT ABO/Rh B POSITIVEANTIBODY SCREEN NEGATIVETESTING SITE PERFORMED AT [address] [place] [address] [facility] [id number] BANK COMMENT BLOOD TYPE CONFIRMED. Name Value Range Interpretation Code Description Data Vivian rce(s) Supporting Document(s) TYPE AND SCREEN [facility] ID Date Data Source [id number] 12/18/2020 12:03:29 PM EDT [facility] Name Value Range Interpretation Code Description Data Vivian rce(s) Supporting Document(s) APTT 130.9 s (22.0-34.3) H [facility] ALERTED CRITICAL RESULT TOALERTED CRITIC AL RESULT TORAMONA [id number] ON D4 [id number] [place] [id number] ID Date Data Source [id number] 12/18/2020 10:57:24 AM EDT [facility] Name Value Range Interpretation Code Description Data Vivian rce(s) Supporting Document(s) WBC 8.8 10*3/uL (4.1-11.0) [facility] RBC 3.57 10*6/uL (4.00-5.40) L [facility] HGB 10.8 g/dL (12.0-16.0) L [facility] HCT 32.5 % (36.0-47.0) L [facility] MCV 91.1 fL (80.0-95.0) [facility] MCH 30.3 pg (27.0-32.0) [facility] MCHC 33.3 g/dL (32.0-36.0) [facility] RDW 18.7 % (10.5-14.5) H [facility] PLT 173 10*3/uL (150-450) [facility] MPV 9.7 fL (7.1-10.7) [facility] ID Date Data Source [id number] 12/17/2020 10:03:40 PM EDT [facility] Name Value Range Interpretation Code Description Data Vivian rce(s) Supporting Document(s) HEMOGLOBIN A1C @ 9.6 % (4.0-6.0) H Lab [facility] Performed using Siemens Liberty immunoassa y.Care must be taken when interpreting VzG4faestnsg in patients with a hemoglobin variantor decreased erythrocyte lifespan. Values 5.7 - 6.4% suggest prediabetes.Values >=6.5% are diagnostic for diabetes.REFERENCE: DIABETES CARE 2018: 41(S13-S27).PERFORMED AT [address] [facility] [address] EST AVERAGE GLUCOSE 229 mg/dL Lab [facility] ID Date Data Source [id number] 12/17/2020 09:27:21 PM EDT Lab [facility] Name Value Range Interpretation Code Description Data Vivian rce(s) Supporting Document(s) APTT 37.3 s (22.0-34.3) H Lab [facility] ID Date Data Source [id number] 12/17/2020 08:24:00 PM EDT [facility] ([facility]) Name Value Range Interpretation Code Description Data Vivian rce(s) Supporting Document(s) Specimen Description Laboratory test result [facility] ([facility]) Influenza virus A Ab [Titer] in Serum by Complement fi xation Laboratory test result [facility] ([facility]) Respiratory syncytial virus Ab [Titer] in Serum by Com plement fixation Laboratory test result [facility] ([facility] S urge[facility]) Influenza virus B Ab [Titer] in Serum by Complement fi xation Laboratory test result [facility] ([facility]) Laboratory comment [Text] in Report Narrative Laboratory test result [facility] ([facility]) SEE NOTE: THE U.S. FDA HAS MADE THIS CHARITO T AVAILABLE UNDER AN EMERGENCY USE AUTHORIZATION (EUA) FOR THE DETECTION AND/OR DIAGNOSIS OF THE VIRUS THAT CAUSES COVID-19. PERFORMED AT [address] [place] [address] Laboratory test finding (navigational concept) Laboratory test result [facility] ([facility]) THIS ASSAY AMPLIFIES AND DETECTS THE TAR GET RNA USING REAL-TIME PCR. TESTING PERFORMED ON [employer] [place] [place] RacersPERT NEGATIVE 2019_NCOV RT-PCR RESULTS DO NOT PRECLUDE 2019_NCOV INFECTION AND SHOULD NOT BE USED THE SOLE BASIS FOR PATIENT MANAGEMENT DECISIONS. First Test Laboratory test result [facility] ([facility]) [employer]ed In [employer] Laboratory test result [facility] ([facility] [...] [facility]) ID Date Data Source [id number] 12/17/2020 07:18:14 PM EDT [facility] NT INFORMATIONPatient MRN Name Date of Age Gend*PT [id number] Joy Dent 1940 80 years F IPPT Location Admission Date/Time Visit ID Attending [id number] 12/17/20 1158 --- Toyin Lopez MD([id number]) EPI ID CSN Admitting Provider [id number] Toyin Lopez MD([id number]) Attestation signed by Toyin Lopez MD at 12/17/2020 7:18 PMI saw and evaluated the patient and reviewed note. I agree with the history,physical and medical decision makingSignature: Toyin Lopez MDDate: December 17, 2020Time: 7:18 PM VASCULAR SURGERYADMISSION HISTORY AND PHYSICALJoy Carol Motnes:[id number]: 1940Informant: The patient who is reliable as [...] of rheumatic fever Hypertension Hypothyroidism on replacement penitentiary current use of anticoagulant coumadin Osteoarthritis PAD [...] closure, ROB; Surgeon: Elda Dinero MD; Location: [facility]; Service: Cardiac/ Open Heart; Laterality: N/A; cataract extractions 2003 and 2004 CHOLECYSTECTOMY CORONARY ANGIOPLASTY CORONARY STENT PLACEMENT CFX, RCA, LAD and PDA; most recent is PDA on EYE SURGERY cataract removaql with IOL's HYSTERECTOMY KIDNEY STONE SURGERY MULTIPLE TOOTH EXTRACTIONS full upper and lower dentures REFRACTIVE SURGERY TUBAL LIGATION VASCULAR SURGERY WISDOM TOOTH EXTRACTION [id number]:Medications Prior to AdmissionMedication Sig Dispense Refill Last [...] 13:30Attached To:Hospital Encounter on 12/17/20BRETT Sharma | [facility] Cardiovascular Surgery UnitPhoto taken with patient's verbal [...] 09/14/2020 HGBA1C 7.7 (H) US1. 50-75% left ANALYSIS ANALYST stenosis (204 cm/s).2. Areas of mildly increased velocities throughout the left SFA suggestive of<50% stenosis.3. Mildly increased velocities proximal popliteal artery suggestive of <50%stenosis.4. Runoff via WEATHER CLERK and peroneal arteries. Anterior tibial artery visualized midcalf, but not distally.5. 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 after midnight, IV hydration to mitigate contrast burdenOn Plavix and aspirinPain control with Tylenol and oxycodoneLeft great toe ulcerPainted with Betadine and wrapped with dry gauzeZosynCHF/hypertension/hyperlipidemia/CAD /history of CA/history of mitral valvereplacement/history of CVACoumadin on hold. INR 2.38 todayHome meds ordered:Carvedilol, Diovan, fmfnznumhpseHZ4Xgpwsst over 200 on admission, on home insulinSliding scale insulin, Lantus with home meds on lkizL9e in the morningCKDCreatinine 1.65 on admission, GFR [...] rce(s) Supporting Document(s) ID Date Data Source [id number] 12/17/2020 03:10:00 PM EDT [facility] Name Value Range Interpretation Code Description Data Vivian rce(s) Supporting Document(s) SARS coronavirus 2 RNA [Presence] in Res piratory specimen by KIET with probe detection NOT DETECTED [place] This lab was reported by Lab [facility]. ID Date Data Source [id number] 12/17/2020 04:25:18 PM EDT Lab [facility] Name Value Range Interpretation Code Description Data Vivian rce(s) Supporting Document(s) SPECIMEN DESCRIPTION Lab [facility] INFLUENZA A (NEG) [facility] INFLUENZA B (NEG) [facility] RSV (NEG) [facility] COMMENT Lab [facility] THE U.S. FDA HAS MADE THIS TEST AVAILABL EUNDER AN EMERGENCY USE AUTHORIZATION(EUA) FOR THE DETECTION AND/OR DIAGNOSISOF THE VIRUS THAT CAUSES COVID-19.PERFORMED AT [address] [place] [address] COVID19 RESULT (NDET) [facility] THIS ASSAY AMPLIFIES AND DETECTSTHE TARG ET RNA USING REAL-TIME PCR.TESTING PERFORMED ON [facility]ID GENEXPERTNEGATIVE 2019_NCOV RT-PCR RESULTS DONOT PRECLUDE 2019_NCOV INFECTION ANDSHOULD NOT BE USED THE SOLE BASISFOR PATIENT MANAGEMENT DECISIONS. FIRST TEST [facility] EMPLOYED IN HLTHCARE [facility] SYMPTOMATIC [facility] DATE OF SYMPT ONSET [facility] HOSPITALIZED [facility] [place] ICU [facility] CONGREGATE CARE SET [facility] ID Date Data Source [id number] 12/17/2020 03:05:45 PM EDT [facility] Name Value Range Interpretation Code Description Data Vivian rce(s) Supporting Document(s) EKG [facility] TWAUIp5yRrORRaCwb7GiVbCvMQBmGV5jdsj2H8A5wJTwW2CcnKPjk8epI0EnH8NzEVSeOIMXJK5ZsMRk jb2 [file] 4/fvz3/eF//hand picker//pX//8L//63/+AtW812//zz//6r3/Sr1gS9/sW58iUh//lP//V8xKy8h+ff/iPz509 [file] EQV/ARW6uc9CKWmx+FzBexZl1aXifT/n4Ibv77fUtAk/exkdltb0O2/L9fCqxYH4b2IA/wreath inspector/6EOV2Ba [file] bmRvYmoKeHJlZgogICAgIDAgICAgMjQKMDAwMDAwMD CcROJ7RPXqYPOaKOrsIPRnISJ6XGG3LHGgFZJpKT4nUrKvUPWdTHJ5JXFxZFSaVXWavsMWTJRuFIRjLU T6NGBpRVCoMPWwRBmlGNUkXTAbSXUyNEZ5OKX9BPMbYwDlENXeCWKiEJXxCNYeIMKscfMLUJZbSPFcOQ J9OVHsYVZmOXMaEYnoBEWxWGXoIEiaLCHuWRAtTF9t RyTfSRAuJCIlNPoaJTBrRJUtckWTMXEcNCQtOCQiQNOwFWVjQSYuTOliFEFqZYZzPFKjAYCeGQYqXQ3b ToGxTVXdFHQ3XEUfWBNnSFUoleALRMYoQDBlXVy4LVFgTRMdASFlYSegRXNlBATzMAW9WTJfKPBzEA2j IcFoOTCbTKR3UcKlVWSgABGutuRJVFBzEXThTOV9Sv OxKIXoYRIoKUphYRRnTGBbRIohPEJhVWZzJN8dWxAlECEuPLPqBDnlLKMvNNGuumSTHZYjIBUuBIGkBp IrQZYtBEZsDTysAWBiOAF0Tpw4NMWoBPTmFE4uRfLfAOYbOEK4IWdkTWZzGUJvtpDULZXwRIZwVEdyNY TnCYQkZTGqBSrwZFCsCWBgLXT3EBEuCBZqGX8lYkIh FGSjLEPmCWVkMaK0CtUtGvWYsYWuxOjiosc7EHxcL5z5YHUtNGzrYU3caaFjLUDyCmnuLd2drYD2FYWx EsmCZo1Nb0LmxpY0lzLaQwJuYWg1CbjhOWCFWd== ID Date Data Source [id number] 12/17/2020 08:31:39 PM EDT [facility] Name Value Range Interpretation Code Description Data Vivian rce(s) Supporting Document(s) HEMOGLOBIN A1C @ 9.3 % (4.0-6.0) H [facility] Performed using Siemens Liberty immunoassa y.Care must be taken when interpreting SaD5lxofgxvt in patients with a hemoglobin variantor decreased erythrocyte lifespan. Values 5.7 - 6.4% suggest prediabetes.Values >=6.5% are diagnostic for diabetes.REFERENCE: DIABETES CARE 2018: 41(S13-S27).PERFORMED AT [address] [place] [address] EST AVERAGE GLUCOSE 220 mg/dL [facility] ID Date Data Source [id number] 12/17/2020 02:40:26 PM EDT [facility] Name Value Range Interpretation Code Description Data Vivian rce(s) Supporting Document(s) SODIUM 135 mmol/L (136-145) L [facility] POTASSIUM 4.9 mmol/L (3.6-5.2) [facility] CHLORIDE 96 mmol/L (100-108) L [facility] CO2 36 mmol/L (22-31) H [facility] ANION GAP 3 mmol/L (7-16) L [facility] UREA NITROGEN 36 mg/dL (7-24) H [facility] CREATININE 1.65 mg/dL (0.60-1.00) H [facility] BUN/CREAT RATIO 21.8 RATIO (10.0-20.0) H [facility] GLUCOSE 216 mg/dL (70-99) H [facility] CALCIUM 8.9 mg/dL (8.4-10.2) [facility] GFR 30 ml/min/1.73m2 (>59) L [facility] GFR ( AMER) 36 ml/min/1.73m2 (>59) L Lab [facility] GFR INTERPRETATION [facility] --NORMAL KIDNEY FUNCTION OR MILD DISEASE - GFR >OR= 60CHRONIC KIDNEY DISEASE - GFR 15 - 59RENAL FAILURE - GFR <15 Est. GFR calculation based on the MDRDstudy equation, which assumes a steadystate for creatinine. Est. GFR should notbe used for medication dosing. ID Date Data Source [id number] 12/17/2020 02:16:38 PM EDT Lab [facility] Name Value Range Interpretation Code Description Data Vivian rce(s) Supporting Document(s) APTT 37.8 s (22.0-34.3) H [facility] ID Date Data Source [id number] 12/17/2020 02:16:38 PM EDT [facility] Name Value Range Interpretation Code Description Data Vivian rce(s) Supporting Document(s) PT 23.8 s (9.2-11.9) H [facility] INR 2.38 Lab [facility] SUGGESTED THERAPEUTIC RANGES USING INR F ORSTABILIZED ANTICOAGULATED PATIENTS:STANDARD DOSE THERAPY INR 2.0-3.0 DVT, PE, PREVENT DVT OR EMBOLISMHIGH DOSE THERAPY INR 2.5-3.5 PREVENT EMBOLISM FROM MECHANICAL HEART VALVE ID Date Data Source [id number] 12/17/2020 02:07:30 PM EDT Lab [facility] Name Value Range Interpretation Code Description Data Vivian rce(s) Supporting Document(s) WBC 8.6 10*3/uL (4.1-11.0) [facility] [place] RBC 3.85 10*6/uL (4.00-5.40) L [facility] HGB 11.5 g/dL (12.0-16.0) L [facility] HCT 34.8 % (36.0-47.0) L [facility] Y MCV 90.5 fL (80.0-95.0) [facility] MCH 30.0 pg (27.0-32.0) [facility] MCHC 33.1 g/dL (32.0-36.0) [facility] RDW 18.6 % (10.5-14.5) H [facility] PLT 179 10*3/uL (150-450) [facility] MPV 9.4 fL (7.1-10.7) [facility] ID Date Data Source [id number] 12/11/2020 10:47:00 AM EDT [facility] ([facility]) Name Value Range Interpretation Code Description Data Vivian rce(s) Supporting Document(s) Laboratory test finding (navigational concept) Laboratory test result [facility] ([facility]) Sent to DR.K Cm(he follows her [...] mmol/L 8.0-16.0 [facility] ([facility] S urge[facility]) Sent to DR.K Cm(he follows her Coumadi n) Laboratory test finding (navigational concept) Laboratory test result [facility] ([facility]) Sent to DR.K Cm(he follows her Coumadi n) Laboratory test finding (navigational concept) 80 yrs [facility] ([facility]) Sent to DR.K Cm(he follows her Coumadi n) Laboratory test finding (navigational concept) 36 mL/min [facility] ([facility]) Sent to DR.K Cm(he follows her Coumadi n) ID Date Data Source [id number] 12/11/2020 10:47:00 AM EDT [facility] ([facility]) Name Value Range Interpretation Code Description Data Vivian rce(s) Supporting Document(s) Laboratory test finding (navigational concept) Laboratory test result [facility] ([facility]) Sent to DR.K Cm(he follows her Coumadi n) WBC 8.1 10^3/uL 4.2-11.0 [facility] ([facility]) Sent to DR.K Cm(he follows her Coumadi n) Hemoglobin 11.1 g/dL 12.0-16.0 [facility] ([facility] Shook [facility]) Sent to DR.K Cm(he follows her Coumadi n) Hematocrit 33.6 % 37.0-47.0 [facility] ([facility]) Sent to DR.K Cm(he follows her Coumadi n) RBC 3.62 10^6/uL 4.20-5.40 [facility] ([facility]) Sent to DR.K Cm(he follows her Coumadi n) MCV 92.8 fL 81.0-101 [facility] ([facility] M [facility]) Sent to DR.K Cm(he follows her Coumadi n) MCH 30.7 pg 27.0-34.0 [facility] ([facility]) Sent to DR.K Cm(he follows her Coumadi n) MCHC 33.0 g/dL 31.0-36.0 [facility] ([facility]) Sent to DR.K Cm(he follows her [...] to DR.K mC(he follows her Coumadi n) Lymph 15.9 % 25.0-40.0 [facility] ([facility]) Sent to DR.K Cm(he follows her Coumadi n) [place] 10.5 % 3.0-8.0 [facility] ([facility] Victor M [...] 0.29 10^3/uL 0.00-0.70 [facility] ([facility]) Sent to DR.K Cm(he follows her Coumadi n) Laboratory test finding (navigational concept) 0.04 10^3/uL 0.00-0.20 [facility] ([facility]) Sent to DR.K Cm(he follows her Coumadi n) Laboratory test finding (navigational concept) 0.85 10^3/uL 0.00-0.90 [facility] ([facility]) Sent to DR.K Cm(he follows her Coumadi n) Laboratory test finding (navigational concept) 0.02 10^3/uL 0.00-0.10 [facility] ([facility]) Sent to DR.K Cm(he follows her Coumadi n) Laboratory test finding (navigational concept) 0.00 10^3/uL 0.00-0.00 [facility] ([facility]) Sent to DR.K Cm(he follows her Coumadi n) Manual Diff Laboratory test result [facility] T ([facility]) Sent to DR.K Cm(he follows her Coumadi n) Laboratory test finding (navigational concept) Laboratory test result [facility] ([facility]) Sent to DR.K Cm(he follows her Coumadi n) ID Date Data Source [id number] 12/11/2020 10:47:00 AM EDT [facility] ([facility]) Name Value Range Interpretation Code Description Data Vivian rce(s) Supporting Document(s) Protime 29.8 s 11.0-15.5 [facility] ([facility]) Sent to DR.K Cm(he follows her Coumadi n) Inr 2.79 0.93-1.23 [facility] ([facility]) Sent to DR.K Cm(he follows her Coumadi n) PTT 49.2 s 24.8-36.7 [facility] ([facility]) Sent to DR.K Cm(he follows her Coumadi n) ID Date Data Source [id number] 12/11/2020 11:31:00 AM EDT [facility] Name Value Range Interpretation Code Description Data Vivian rce(s) Supporting Document(s) BASIC METABOLIC PANEL [facility] BASIC METABOLIC PANEL Sodium [Moles/volume] in Serum or Plasma 139 mEq/L 134 - 153 [facility] Potassium [Moles/volume] in Serum or Plasma 4.4 mEq/L 3.6 - 5.0 [facility] Chloride [Moles/volume] in Serum or Plasma 95 mEq/L 98 - 107 L [facility] Carbon dioxide, total [Moles/volume] in Serum or Plasma 34 MEQ/L 22 - 30 H [facility] Glucose [Mass/volume] in Serum or Plasma 226 MG/DL 70 - 99 H [facility] BUN 31 MG/DL 7 - 21 H [facility] Creatinine [Mass/volume] in Serum or Plasma 1.5 MG/DL 0.7 - 1.5 [facility] BUN/CREAT 21 8 - 27 [facility] Calcium [Mass/volume] in Serum or Plasma 9.2 MG/DL 8.4 - 10.2 [facility] Anion gap 3 in Serum or Plasma 10.0 mmol/L 8.0 - 16.0 [facility]GE [address] [facility] AMER GFR >60 [facility] NON-AA GFR 36 mL/min [facility] Male GFR Inter prentation 20-49 yrs [...] >32 mL/min Normal ID Date Data Source [id number] 12/11/2020 11:09:00 AM EDT [facility] Name Value Range Interpretation Code Description Data Vivian rce(s) Supporting Document(s) CBC W/AUTOMATED DIFF [facility] COMPLETE BLOOD COUNT Leukocytes [#/volume] in Blood by Automated count 8.1 10^3/uL 4.2 - 1 1.0 [facility] Erythrocytes [#/volume] in Blood by Automated count 3.62 10^6/uL 4. 20 - 5.40 L [facility] Hemoglobin [Mass/volume] in Blood 11.1 g/dL 12.0 - 16.0 L [facility] Hematocrit [Volume Fraction] of Blood by Automated count 33.6 % 3 7.0 - 47.0 L [facility] Erythrocyte mean corpuscular volume [Entitic volume] by Auto mated count 92.8 fL 81.0 - 101 [facility] Erythrocyte mean corpuscular hemoglobin [Entitic mass] by Automated count 30.7 pg 27.0 - 34.0 [facility] Erythrocyte mean corpuscular hemoglobin concentration [Mass/volume] by Automated count 33.0 g/dL 31.0 - 36.0 [facility] Erythrocyte distribution width [Ratio] by Automated count 17.7 % 11.5 - 14.5 H [facility] Platelets [#/volume] in Blood by Automated count 175 10^3/uL 150 - 45 0 [facility] Platelet mean volume [Entitic volume] in Blood by Automated count 11.7 fL 7.4 - 10.4 H [facility] Neutrophils/100 leukocytes in Blood by Automated count 69.3 % 37. 0 - 80.0 [facility] Lymphocytes/100 leukocytes in Blood by Manual count 15.9 % 25.0 - 40.0 L [facility] Monocytes/100 leukocytes in Blood by Automated count 10.5 % 3.0 - 8.0 H [facility] Eosinophils/100 leukocytes in Blood by Automated count 3.6 % 0.0 - 7.0 [facility] Basophils/100 leukocytes in Blood by Automated count 0.5 % 0.0 - 2.5 [facility] %IG 0.2 % 0.0 - 0.[address] [facility] %NRBC 0.0 % 0.0 - 0.0 [facility] al Neutrophils [#/volume] in Blood by Automated count 5.62 10^3/uL 2.00 - 6.90 [facility] Lymphocytes [#/volume] in Blood by Automated count 1.29 10^3/uL 0.60 - 3.40 [facility] Monocytes [#/volume] in Blood by Automated count 0.85 10^3/uL 0.00 - 0.90 [facility] Eosinophils [#/volume] in Blood by Automated count 0.29 10^3/uL 0.00 - 0.70 [facility] Basophils [#/volume] in Blood by Automated count 0.04 10^3/uL 0.00 - 0.20 [facility] #IG 0.02 10^3/uL 0.00 - 0.10 [facility]ital #NRBC 0.00 10^3/uL 0.00 - 0.00 [facility] ospital MANUAL DIFF NOT INDICATED [facility] RBC MORPH NOT INDICATED [facility] spital ID Date Data Source [id number] 12/11/2020 11:18:00 AM EDT [facility] Name Value Range Interpretation Code Description Data [facility] Supporting Document(s) Prothrombin time (PT) 29.8 SECONDS 11.0 - 15.5 H [facility] INR in Platelet poor plasma by Coagulation assay 2.79 0.93 - 1. 23 H [facility] aPTT in Blood by Coagulation assay 49.2 SECONDS 24.8 - 36.7 H [facility] \\BLDo\\INR INTERPRETATION\\BLDx\\ Therapeutic range for Coumadin and related oral anticoagulants. - International Normalized Ratio (INR): 2.0 - 3.0 for Venous Thrombosis, Pulmonary Embolus, Tissue heart valves, Acute CA Atrial Fibrillation, Valvular heart disease and recurrent Systemic Embolism. - International Normalized Ratio (INR): 2.5 - 3.5 for Mechanical Prosthetic valve. ID Date Data Source [id number] 11/27/2020 12:00:00 PM EDT [facility] ([facility]) Name Value Range Interpretation Code Description Data [facility](s) Supporting Document(s) TP Reflex HPV ASCUS Laboratory test result [facility] (L[facility] Woman [facility]) SPECIMEN PART------ A. Cervical, Endocervical, ThinPrep Pap ([employer]) CYTOLOGY HX-------- Other Information: Post-menopausal FINAL DIAGNOSIS---- INTERPRETATION: Negative for Intraepithelial Lesion or Malignancy. SPECIMEN ADEQUACY:Satisfactory for evaluation. Endocervical/transformation zone component present. ADDITIONAL FINDINGS:Fungal organisms consistent with Mirian spp. TP Reflex HPV ASCUS Laboratory test result [facility] ([facility]) ID Date Data Source [id number] 10/12/2020 09:42:00 [place] [address] PROGRESS NOTENAME: ANNA Medina ROOM#: [id number] OF : 1940 MR#: [id number] DATE: 10/09/20 OF SERVICE: 10/12/2020UBJECTIVE:Patient has known [...] rce(s) Supporting Document(s) ID Date Data Source [id number] 10/13/2020 02:15:00 [place] [address] DISCHARGE SUMMARYNAME: ANNA Medina ROOM#: [id number] OF : 1940 MR#: [id number] PHYS: Bolivar Sotomayor MD, PC DATE: 10/09/20 [...] Troponin was normal. INR 2.54, hemoglobin 12.7, ktyutb913, potassium 4.2, BUN 26, creatinine 1.4. Repeat [...] mg daily.16. Valsartan 40 mg daily. [address] [place] [address] DISCHARGE SUMMARYNAME: ANNA Medina ROOM#: [id number] OF : 1940 MR#: [id number] PHYS: Bolivar Sotomayor MD, DATE: 10/09/20 DISCHARGED: [...] OF HYPERLIPIDEMIA.DD: Bolivar Sotomayor MD, 10/13/20 12:25DT: [facility] 10/13/20 14:15DS: Bolivar Sotomayor MD, 10/26/20 08:33 2 Name Value Range Interpretation Code Description Data Vivian rce(s) Supporting Document(s) ID Date Data Source [id number] 10/19/2020 11:42:00 [place] [address] PHONE: [phone] FAX: [phone] Name .................. : ANNA Medina Acct Number.................. : [id number] ROOM. ................. : [id number] MR Number ................... : [id number] Stay type ............. : I/P Discharge Date......... ... : Admit Date ......... : 10/09/20 Admit Phys .................... : MANUEL ALIZE Date of ....... : 1940 Family Phys ................... : NAUN [facility] Phone .................. : [phone] Age ................................ : 80 Film# .................. .:[id number] Sex ................................. : F Unsigned transcriptions are preliminary reports and do not represent a medical or legal document CHEST 2 VIEWS 65821 COMPLETE:10/11/20 06:31 RLB 76481 Reason for Exam: CHF CHEST X-RAY: 2-VIEWS [...] rce(s) Supporting Document(s) ID Date Data Source [id number] 10/13/2020 10:14:00 [place] [address] PHONE: [phone] FAX: [phone] Name .................. : ANNA Medina Acct Number.................. : [id number] ROOM. ................. : 107-1 MR Number ................... : [id number] Stay type ............. : I/P Discharge Date......... ... : Admit Date ......... : 10/09/20 Admit Phys .................... : MANUEL ALIZE Date of ....... : 1940 Family Phys ................... : NAUN CHAIDEZJASSON Phone .................. : [phone] Age ................................ : 80 Film# .................. .:[id number] Sex ................................. : F Unsigned transcriptions are preliminary reports and do not represent a medical or legal document CHEST 2 VIEWS 76104 COMPLETE:10/12/20 06:22 RLB [id number] Reason for Exam: CHF CHEST X-RAY: 2-VIEWS [...] 10/12/20 16:38, Dictation Date: Copy for: 002 [facility] Copy for: 710 MED REC Page 1 of 1 Name Value Range Interpretation Code Description Data Vivian rce(s) Supporting Document(s) ID Date Data Source [id number] 10/13/2020 05:46:00 AM EDT [facility]Bolivar Sotomayor MD[facility] Name Value Range [...] Thrombosis, Pulmonary Embolus, Tissue heart valves, Acute CA, Atrial Fibrillation, Valvular heart disease and recurrent Systemic Embolism. -International Normalized Ratio (INR): 2 .5 - 3.5 for Mechanical Prosthetic valve. ID Date Data Source [id number] 10/13/2020 05:46:00 AM EDT [facility] (Bolivar Sotomayor [...] (Bolivar Sotomayor MD) ID Date Data Source [id number] 10/13/2020 05:46:00 AM EDT [facility] (Bolivar Sotomayor MD) Name Value Range Interpretation Code Description Data Vivian rce(s) Supporting Document(s) Laboratory test finding (navigational concept) Laboratory test result [facility] (Bolivar Sotomayor MD) COMPREHENSIVE METABOLIC PANEL Laboratory test finding (navigational concept) 139 meq/L 134-153 [facility] (Bolivar Sotomayor MD) Laboratory test finding (navigational concept) 4.4 meq/L 3.6-5.0 [facility] (Bolivra Sotomayor MD) Laboratory test finding (navigational concept) [...] >32 mL/min Normal ID Date Data Source [id number] 10/13/2020 05:46:00 AM EDT [facility]Boliv[facility] Name Value Range Interpretation Code Description Data Vivian e(s) Supporting Document(s) Magnesium [Mass/volume] in Serum or Plasma 2.2 mg/dL 1.7-2.2 [facility] (Bolivar Sotomayor MD) ID Date Data Source [id number] 10/13/2020 07:15:00 AM EDT [facility] Name Value Range Interpretation Code Description Data Vivian rce(s) Supporting Document(s) CBC W/AUTOMATED DIFF [facility] COMPLETE BLOOD COUNT Leukocytes [#/volume] in Blood by Automated count 8.6 10^3/uL 4.2 - 1 1.0 [facility] Erythrocytes [#/volume] in Blood by Automated count 3.74 10^6/uL 4. 20 - 5.40 L [facility] Hemoglobin [Mass/volume] in Blood 11.7 g/dL 12.0 - 16.0 L [facility] Hematocrit [Volume Fraction] of Blood by Automated count 35.7 % 3 7.0 - 47.0 L [facility] Erythrocyte mean corpuscular volume [Entitic volume] by Auto mated count 95.5 fL 81.0 - 101 [facility] Erythrocyte mean corpuscular hemoglobin [Entitic mass] by Automated count 31.3 pg 27.0 - 34.0 [facility] Erythrocyte mean corpuscular hemoglobin concentration [Mass/volume] by Automated count 32.8 g/dL 31.0 - 36.0 [facility] Erythrocyte distribution width [Ratio] by Automated count 16.5 % 11.5 - 14.5 H [facility] Platelets [#/volume] in Blood by Automated count 171 10^3/uL 150 - 45 0 [facility] Platelet mean volume [Entitic volume] in Blood by Automated count 11.5 fL 7.4 - 10.4 H [facility] Neutrophils/100 leukocytes in Blood by Automated count 70.1 % 37. 0 - 80.0 [facility] Lymphocytes/100 leukocytes in Blood by Manual count 12.8 % 25.0 - 40.0 L [facility] Monocytes/100 leukocytes in Blood by Automated count 13.5 % 3.0 - 8.0 H [facility] Eosinophils/100 leukocytes in Blood by Automated count 3.1 % 0.0 - 7.0 [facility] Basophils/100 leukocytes in Blood by Automated count 0.3 % 0.0 - 2.5 [facility] %IG 0.2 % 0.0 - 0.[address] [facility] %NRBC 0.0 % 0.0 - 0.0 [facility] al Neutrophils [#/volume] in Blood by Automated count 6.04 10^3/uL 2.00 - 6.90 [facility] Lymphocytes [#/volume] in Blood by Automated count 1.10 10^3/uL 0.60 - 3.40 [facility] Monocytes [#/volume] in Blood by Automated count 1.16 10^3/uL 0.00 - 0.90 H [facility] Eosinophils [#/volume] in Blood by Automated count 0.27 10^3/uL 0.00 - 0.70 [facility] Basophils [#/volume] in Blood by Automated count 0.03 10^3/uL 0.00 - 0.20 [facility] #IG 0.02 10^3/uL 0.00 - 0.10 [facility]ital #NRBC 0.00 10^3/uL 0.00 - 0.00 [facility] ospital MANUAL DIFF SEE BELOW [facility] ital Segmented neutrophils/100 leukocytes in Blood by Manual count 72 % 37 - 80 [facility] %LYMPH 13 % 25 - 40 L [facility] al %MONO 14 % 3 - 8 H [facility] al %EOS 1 % 0 - 7 [facility] al RBC MORPH NOT INDICATED [facility] spital ID Date Data Source [id number] 10/13/2020 07:14:00 AM EDT [facility] Name Value Range Interpretation Code Description Data Vivian rce(s) Supporting Document(s) COMPREHENSIVE METABOLIC PANEL [facility] COMPREHENSIVE METABOLIC PANEL Sodium [Moles/volume] in Serum or Plasma 139 mEq/L 134 - 153 [facility] Potassium [Moles/volume] in Serum or Plasma 4.4 mEq/L 3.6 - 5.0 [facility] Chloride [Moles/volume] in Serum or Plasma 96 mEq/L 98 - 107 L [facility] Carbon dioxide, total [Moles/volume] in Serum or Plasma 36 MEQ/L 22 - 30 H [facility] Glucose [Mass/volume] in Serum or Plasma 126 MG/DL 70 - 99 H [facility] BUN 26 MG/DL 7 - [address] [facility] Creatinine [Mass/volume] in Serum or Plasma 1.2 MG/DL 0.7 - 1.5 [facility] BUN/CREAT 22 8 - 27 [facility] al Protein [Mass/volume] in Serum or Plasma 5.6 G/DL 6.3 - 8.2 L [facility] Albumin [Mass/volume] in Serum or Plasma 3.4 G/DL 3.9 - 5.0 L [facility] Globulin [Mass/volume] in Serum by calculation 2.2 GM/DL 2.4 - 3.2 L [facility] A/G RATIO 1.5 0.8 - 2.0 [facility] Calcium [Mass/volume] in Serum or Plasma 8.7 MG/DL 8.4 - 10.2 [facility] Bilirubin.total [Mass/volume] in Serum or Plasma 0.9 MG/DL 0.2 - 1.3 [facility] Alkaline phosphatase [Enzymatic activity/volume] in Serum or Plasma 292 U/L 38 - 126 H [facility] Aspartate aminotransferase [Enzymatic activity/volume] in Serum or Plasma 17 U/L 5 - 40 [facility] Alanine aminotransferase [Enzymatic activity/volume] in Seru m or Plasma 12 U/L 7 - 56 [facility] Anion gap 3 in Serum or Plasma 7.0 mmol/L 8.0 - 16.0 L [facility] AGE 80 yrs [facility] al NON-AA GFR 46 mL/min [facility] AFR AMER GFR >60 [facility] Male GFR In terprentation 20-49 [...] >32 mL/min Normal ID Date Data Source [id number] 10/13/2020 07:13:00 AM EDT [facility] Name Value Range Interpretation Code Description Data Vivian rce(s) Supporting Document(s) Magnesium [Mass/volume] in Serum or Plasma 2.2 MG/DL 1.7 - 2.2 [facility] ID Date Data Source [id number] 10/13/2020 06:40:00 AM EDT [facility] Name Value Range Interpretation Code Description Data Vivian rce(s) Supporting Document(s) Prothrombin time (PT) 19.6 SECONDS 11.0 - 15.5 H [facility] INR in Platelet poor plasma by Coagulation assay 1.64 0.93 - 1. 23 H [facility] \\BLDo\\INR INTERPRETATION\\BLDx\\ Therapeutic range for Coumadin and related oral anticoagulants. - International Normalized Ratio (INR): 2.0 - 3.0 for Venous Thrombosis, Pulmonary Embolus, Tissue heart valves, Acute CA, Atrial Fibrillation, Valvular heart disease and recurrent Systemic Embolism. -International Normalized Ratio (INR): 2.5 - 3.5 for Mechanical Prosthetic valve. ID Date Data Source [id number] 10/12/2020 07:08:00 [place] [address] RESPIRATORY CARE REPORT ==== ---------NAME------- NUMBER SEX AGE ADMIT DISC. XRAY# F/C BRENNON Medina [id number] F 80 10/09/20 [id number] M4 I/P DATE OF : 1940 M/R# [id number] #: [id number] LOCATION: EMERGENCY DEPT EKG [id number] COMP LETE:10/12/20 08:[address] [place] [address] PHYSICIAN: MANUEL HERRMANN Name Value Range Interpretation Code Description Data Vivian rce(s) Supporting Document(s) ID Date Data Source [id number] 10/12/2020 10:12:00 [place] [address] PHONE: [phone] FAX: [phone] Name .................. : ANNA Medina Acct Number.................. : [id number] ROOM. ................. : 107-1 MR Number ................... : [id number] Stay type ............. : I/P Discharge Date......... ... : Admit Date ......... : 10/09/20 Admit Phys .................... : MANUEL ALIZE Date of ....... : 1940 Family Phys ................... : NA[facility] Phone .................. : [phone] Age ................................ : 80 Film# .................. .:[id number] Sex ................................. : F Unsigned transcriptions are preliminary reports and do not represent a medical or legal document CT CTA CHEST NON-CORONARY W C 11924 COMPLETE:10/09/20 15:44 MICHELLE 98309 Reason(s): shortness of breath elevated d dimer [...] [address] 1 [address] 2 [place] [address] PHONE: [phone] FAX: [phone] Name .................. : ANNA ALLEN Carol Acct Number.................. : [id number] ROOM. ................. : 107- MR Number ................... : [id number] Stay type ............. : I/P Discharge Date......... ... : Admit Date ......... : 10/09/20 Admit Phys .................... : MANUEL HERRMANN Date of ....... : 1940 Family Phys ................... : NAUN MTZ Phone .................. : [phone] Age ................................ : 80 Film# .................. .:[id number] Sex ................................. : F Unsigned transcriptions are preliminary reports and do not represent a medical or legal document CT CTA CHEST NON- CORONARY Giorgi Bartolo 16375 COMPLETE:10/09/20 15:44 MICHELLE 85405 Reason(s): shortness of breath elevated d dimer r/o PE Method of administration: Intravenous Electronically Reviewed and Signed By Anselmo Bernstein M.D. , 10/12/20 10:12, [facility] Transcribe Initials: MILLY , Transcribe Date: 10/09/20 18:24, Dictation Date: Copy for: 002 [facility] Copy for: 710 [facility] REC Page 2 of 2 Name Value Range Interpretation Code Description Data Vivian rce(s) Supporting Document(s) ID Date Data Source [id number] 10/11/2020 10:07:00 [place] [address] PROGRESS NOTENAME: ANNA Medina ROOM#: 107-1DATE OF : 1940 MR#: [id number] DATE: 10/09/20 OF SERVICE: 10/11/20SUBJECTIVE: This patient [...] rce(s) Supporting Document(s) ID Date Data Source [id number] 10/11/2020 02:37:00 [place] [address] PROGRESS NOTENAME: ANNA Medina ROOM#: 107-1DATE OF : 1940 MR#: [id number] DATE: 10/09/20 OF SERVICE: 10/10/20SUBJECTIVE: This patient [...] rce(s) Supporting Document(s) ID Date Data Source [id number] 10/10/2020 05:28:00 [place] [address] HISTORY AND PHYSICALNAME: ANNA Medina ROOM#: 107-1DATE OF : 1940 MR#: [id number] PHYS: Bolivar Sotomayor MD, PC [facility] [id number] DATE: 10/09/20CHIEF COMPLAINT: This 80-year-old white female [...] or melena. No hematuria.PERSONAL HISTORY:Nonsmoker.FAMILY HISTORY: [address] [place] [address] HISTORY AND PHYSICALNAME: ANNA Medina ROOM#: 107-1DATE OF : 1940 MR#: [id number] PHYS: Bolivar Sotomayor MD, PC DATE: 10/09/20Father [...] Pulse was 60. Temperature 98. Respirations 18. O8ksqgsxoarj is 98%.HEENT: Head is normal. Pupils and [...] artery disease. 6. History of PAD. [address] [place] [address] HISTORY AND PHYSICALNAME: RITJewell Medina ROOM#: 107-1DATE OF : 1940 MR#: [id number] PHYS: Bolivar Sotomayor MD, PC DATE: 10/09/20 [...] rce(s) Supporting Document(s) ID Date Data Source [id number] 10/12/2020 05:43:00 AM EDT [facility] (Bolivar Sotomayor [...] (Bolivar Sotomayor MD) ID Date Data Source [id number] 10/12/2020 05:43:00 AM EDT [facility] (Bolivar Sotomayor [...] (navigational concept) 11 U/L 7-56 [facility] (Bolivar Sotomyaor MD) Laboratory test finding (navigational concept) 6.0 [...] >32 mL/min Normal ID Date Data Source [id number] 10/12/2020 05:43:00 AM EDT [facility] (Bolivar Sotomayor MD) Name Value Range Interpretation Code Description Data Vivian rce(s) Supporting Document(s) Magnesium [Mass/volume] in Serum or Plasma 1.9 mg/dL 1.7-2.2 [facility] (Bolivar Sotomayor MD) ID Date Data Source [id number] 10/12/2020 05:43:00 AM EDT [facility] (Bolivar Sotomayor MD) Name Value Range Interpretation Code Description Data Vivian rce(s) Supporting Document(s) Laboratory test finding (navigational concept) 1.76 0 .93-1.23 Above high normal [facility] (Bolivar Sotomayor MD) \\BLDo\\INR INTERPRETATION\\BLDx\\ Therapeutic range for Coumadin and related oral anticoagulants. -International Normalized Ratio (INR): 2 .0 - 3.0 for Venous Thrombosis, Pulmonary Embolus, Tissue heart valves, Acute CA, Atrial Fibrillation, Valvular heart disease and recurrent Systemic Embolism. -International Normalized Ratio (INR): 2 .5 - 3.5 for Mechanical Prosthetic valve. Laboratory test finding (navigational concept) 20.8 s 1 1.0-15.5 Above high normal [facility] (Bolivar Sotomayor MD) ID Date Data Source [id number] 10/12/2020 07:47:00 AM EDT [facility] Name Value Range Interpretation Code Description Data Vivian rce(s) Supporting Document(s) CBC W/AUTOMATED DIFF [facility] COMPLETE BLOOD COUNT Leukocytes [#/volume] in Blood by Automated count 8.1 10^3/uL 4.2 - 1 1.0 [facility] Erythrocytes [#/volume] in Blood by Automated count 3.78 10^6/uL 4. 20 - 5.40 L [facility] Hemoglobin [Mass/volume] in Blood 11.7 g/dL 12.0 - 16.0 L [facility] Hematocrit [Volume Fraction] of Blood by Automated count 35.8 % 3 7.0 - 47.0 L [facility] Erythrocyte mean corpuscular volume [Entitic volume] by Auto mated count 94.7 fL 81.0 - 101 [facility] Erythrocyte mean corpuscular hemoglobin [Entitic mass] by Automated count 31.0 pg 27.0 - 34.0 [facility] Erythrocyte mean corpuscular hemoglobin concentration [Mass/volume] by Automated count 32.7 g/dL 31.0 - 36.0 [facility] Erythrocyte distribution width [Ratio] by Automated count 16.4 % 11.5 - 14.5 H [facility] Platelets [#/volume] in Blood by Automated count 170 10^3/uL 150 - 45 0 [facility] Platelet mean volume [Entitic volume] in Blood by Automated count 11.0 fL 7.4 - 10.4 H [facility] Neutrophils/100 leukocytes in Blood by Automated count 66.6 % 37. 0 - 80.0 [facility] Lymphocytes/100 leukocytes in Blood by Manual count 15.8 % 25.0 - 40.0 L [facility] Monocytes/100 leukocytes in Blood by Automated count 13.1 % 3.0 - 8.0 H [facility] Eosinophils/100 leukocytes in Blood by Automated count 3.9 % 0.0 - 7.0 [facility] 0.5 %IG 0.1 % 0.0 - 0.[address] [facility] %NRBC 0.0 % 0.0 - 0.0 [facility] al Neutrophils [#/volume] in Blood by Automated count 5.41 10^3/uL 2.00 - 6.90 [facility] Lymphocytes [#/volume] in Blood by Automated count 1.28 10^3/uL 0.60 - 3.40 [facility] Monocytes [#/volume] in Blood by Automated count 1.06 10^3/uL 0.00 - 0.90 H [facility] Eosinophils [#/volume] in Blood by Automated count 0.32 10^3/uL 0.00 - 0.70 [facility] Basophils [#/volume] in Blood by Automated count 0.04 10^3/uL 0.00 - 0.20 [facility] #IG 0.01 10^3/uL 0.00 - 0.10 [facility]ital #NRBC 0.00 10^3/uL 0.00 - 0.00 [facility] MANUAL DIFF SEE BELOW [facility] ital Segmented neutrophils/100 leukocytes in Blood by Manual count 62 % 37 - 80 [facility] Hospital BAND 0 % 0 - 5 [facility] al %LYMPH 26 % 25 - 40 [facility] %MONO 9 % 3 - [address] [facility] %EOS 3 % 0 - 7 [facility] 0 RBC MORPH NOT INDICATED [facility] ID Date Data Source [id number] 10/12/2020 07:32:00 AM EDT [facility] Name Value Range Interpretation Code Description Data Vivian rce(s) Supporting Document(s) COMPREHENSIVE METABOLIC PANEL [facility] COMPREHENSIVE METABOLIC PANEL Sodium [Moles/volume] in Serum or Plasma 140 mEq/L 134 - 153 [facility] Potassium [Moles/volume] in Serum or Plasma 4.0 mEq/L 3.6 - 5.0 [facility] Chloride [Moles/volume] in Serum or Plasma 98 mEq/L 98 - 107 [facility] Carbon dioxide, total [Moles/volume] in Serum or Plasma 36 MEQ/L 22 - 30 H [facility] Glucose [Mass/volume] in Serum or Plasma 51 MG/DL 70 - 99 L [facility] BUN 24 MG/DL 7 - 21 H [facility] al Creatinine [Mass/volume] in Serum or Plasma 1.3 MG/DL 0.7 - 1.5 [facility] BUN/CREAT 18 8 - 27 [facility] al Protein [Mass/volume] in Serum or Plasma 5.6 G/DL 6.3 - 8.2 L [facility] Albumin [Mass/volume] in Serum or Plasma 3.3 G/DL 3.9 - 5.0 L [facility] Globulin [Mass/volume] in Serum by calculation 2.3 GM/DL 2.4 - 3.2 L [facility] A/G RATIO 1.4 0.8 - 2.0 [facility] Calcium [Mass/volume] in Serum or Plasma 8.4 MG/DL 8.4 - 10.2 [facility] Bilirubin.total [Mass/volume] in Serum or Plasma 1.0 MG/DL 0.2 - 1.3 [facility] Alkaline phosphatase [Enzymatic activity/volume] in Serum or Plasma 244 U/L 38 - 126 H [facility] Aspartate aminotransferase [Enzymatic activity/volume] in Serum or Plasma 16 U/L 5 - 40 [facility] Alanine aminotransferase [Enzymatic activity/volume] in Seru m or Plasma 11 U/L 7 - 56 [facility] Anion gap 3 in Serum or Plasma 6.0 mmol/L 8.0 - 16.0 L [facility] AGE 80 yrs [facility] al NON-AA GFR 42 mL/min [facility] AFR AMER GFR >60 [facility] Male GFR In terprentation 20-49 [...] >32 mL/min Normal ID Date Data Source [id number] 10/12/2020 07:12:00 AM EDT [facility] Name Value Range Interpretation Code Description Data Vivian rce(s) Supporting Document(s) Magnesium [Mass/volume] in Serum or Plasma 1.9 MG/DL 1.7 - 2.2 [facility] ID Date Data Source [id number] 10/12/2020 06:32:00 AM EDT [facility] Name Value Range Interpretation Code Description Data Vivian rce(s) Supporting Document(s) Prothrombin time (PT) 20.8 SECONDS 11.0 - 15.5 [facility] INR in Platelet poor plasma by Coagulation assay 1.76 0.93 - 1. 23 H [facility] \\BLDo\\INR INTERPRETATION\\BLDx\\ Therapeutic range for Coumadin and related oral anticoagulants. - International Normalized Ratio (INR): 2.0 - 3.0 for Venous Thrombosis, Pulmonary Embolus, Tissue heart valves, Acute CA, Atrial Fibrillation, Valvular heart disease and recurrent Systemic Embolism. -International Normalized Ratio (INR): 2.5 - 3.5 for Mechanical Prosthetic valve. ID Date Data Source [id number] 10/11/2020 01:10:00 PM EDT [address] [address] RESPIRATORY CARE REPORT ==== ---------NAME------- NUMBER SEX AGE ADMIT DISC. XRAY# F/C TYPERICLEMENCIA Medina [id number] F 80 10/09/20 [id number] M4 I/P DATE OF : 1940 M/R# [id number] #: [id number] LOCATION: EMERGENCY DEPT EKG 51659 COMP LETE:10/11/20 08:31 [facility] [address] PHYSICIAN: MANUEL HERRMANN Name Value Range Interpretation Code Description Data Vivian rce(s) Supporting Document(s) ID Date Data Source [id number] 10/11/2020 12:25:00 PM EDT [address] [place] [address] RESPIRATORY CARE REPORT ==== ---------NAME------- NUMBER SEX AGE ADMIT DISC. XRAY# F/C BRENNON Medina [id number] F 80 10/09/20 [id number] M4 I/P DATE OF : 1940 M/R# [id number] #: [id number] LOCATION: EMERGENCY DEPT EKG [id number] COMP LETE:10/09/20 14:14 [facility] [address] PHYSICIAN: MANUEL MACIAS Name Value Range Interpretation Code Description Data Vivian rce(s) Supporting Document(s) ID Date Data Source [id number] 10/11/2020 06:39:00 AM EDT [facility] (Bolivar Sotomayor [...] (Bolivar Sotomayor MD) ID Date Data Source [id number] 10/11/2020 06:39:00 AM EDT [facility] (Bolivar Sotomayor MD) Name Value Range Interpretation Code Description Data Vivian rce(s) Supporting Document(s) Laboratory test finding (navigational concept) 2.05 0 .93-1.23 Above high normal [facility] (Bolivar Sotomayor MD) \\BLDo\\INR INTERPRETATION\\BLDx\\ Therapeutic range for Coumadin and related oral anticoagulants. -International Normalized Ratio (INR): 2 .0 - 3.0 for Venous Thrombosis, Pulmonary Embolus, Tissue heart valves, Acute CA, Atrial Fibrillation, Valvular heart disease and recurrent Systemic Embolism. -International Normalized Ratio (INR): 2 .5 - 3.5 for Mechanical Prosthetic valve. Laboratory test finding (navigational concept) 23.4 s 1 1.0-15.5 Above high normal [facility] (Bolivar Sotomayor MD) ID Date Data Source [id number] 10/11/2020 06:39:00 AM EDT [facility] (Bolivar Sotomayor MD) Name Value Range Interpretation Code Description Data Vivian rce(s) Supporting Document(s) Magnesium [Mass/volume] in Serum or Plasma 2.0 mg/dL 1.7-2.2 [facility] (Bolivar Sotomayor MD) ID Date Data Source [id number] 10/11/2020 06:39:00 AM EDT [facility] (Bolivar Sotomayor MD) Name Value Range Interpretation Code Description Data Vivian rce(s) Supporting Document(s) Iron [Mass/volume] in Serum or Plasma 31 ug/dL 42-135 Below low normal [facility] (Bolivar Sotomayor MD) ID Date Data Source [id number] 10/11/2020 06:39:00 AM EDT [facility] (Bolivar Sotomayor [...] >32 mL/min Normal ID Date Data Source [id number] 10/11/2020 12:12:00 PM EDT [facility] Name Value Range Interpretation Code Description Data Vivian rce(s) Supporting Document(s) Iron [Mass/volume] in Serum or Plasma 31 UG/DL 42 - 135 L [facility] ID Date Data Source [id number] 10/11/2020 07:43:00 AM EDT [facility] Name Value Range Interpretation Code Description Data Vivian rce(s) Supporting Document(s) COMPREHENSIVE METABOLIC PANEL [facility] COMPREHENSIVE METABOLIC PANEL Sodium [Moles/volume] in Serum or Plasma 143 mEq/L 134 - 153 [facility] Potassium [Moles/volume] in Serum or Plasma 3.9 mEq/L 3.6 - 5.0 [facility] Chloride [Moles/volume] in Serum or Plasma 97 mEq/L 98 - 107 L [facility] Carbon dioxide, total [Moles/volume] in Serum or Plasma 37 MEQ/L 22 - 30 H [facility] Glucose [Mass/volume] in Serum or Plasma 133 MG/DL 70 - 99 H [facility] BUN 21 MG/DL 7 - 21 [facility] al Creatinine [Mass/volume] in Serum or Plasma 1.3 MG/DL 0.7 - 1.5 [facility] BUN/CREAT 16 8 - 27 [facility] Protein [Mass/volume] in Serum or Plasma 6.1 G/DL 6.3 - 8.2 L [facility] Albumin [Mass/volume] in Serum or Plasma 3.6 G/DL 3.9 - 5.0 L [facility] Globulin [Mass/volume] in Serum by calculation 2.5 GM/DL 2.4 - 3.2 [facility] A/G RATIO 1.4 0.8 - 2.0 [facility] Calcium [Mass/volume] in Serum or Plasma 8.3 MG/DL 8.4 - 10.2 L [facility] Bilirubin.total [Mass/volume] in Serum or Plasma 1.0 MG/DL 0.2 - 1.3 [facility] Alkaline phosphatase [Enzymatic activity/volume] in Serum or Plasma 280 U/L 38 - 126 H [facility] Aspartate aminotransferase [Enzymatic activity/volume] in Serum or Plasma 21 U/L 5 - 40 [facility] Alanine aminotransferase [Enzymatic activity/volume] in Seru m or Plasma 14 U/L 7 - 56 [facility] Anion gap 3 in Serum or Plasma 9.0 mmol/L 8.0 - 16.0 [facility] AGE 80 yrs [facility] al NON-AA GFR 42 mL/min [facility] A[facility] AMER GFR >60 [facility] Male GFR In terprentation 20-49 [...] >32 mL/min Normal ID Date Data Source [id number] 10/11/2020 07:40:00 AM EDT [facility] Name Value Range Interpretation Code Description Data Vivian rce(s) Supporting Document(s) Magnesium [Mass/volume] in Serum or Plasma 2.0 MG/DL 1.7 - 2.2 [facility] ID Date Data Source [id number] 10/11/2020 07:13:00 AM EDT [facility] Name Value Range Interpretation Code Description Data Vivian rce(s) Supporting Document(s) Prothrombin time (PT) 23.4 SECONDS 11.0 - 15.5 [facility] INR in Platelet poor plasma by Coagulation assay 2.05 0.93 - 1. 23 H [facility] \\BLDo\\INR INTERPRETATION\\BLDx\\ Therapeutic range for Coumadin and related oral anticoagulants. - International Normalized Ratio (INR): 2.0 - 3.0 for Venous Thrombosis, Pulmonary Embolus, Tissue heart valves, Acute CA, Atrial Fibrillation, Valvular heart disease and recurrent Systemic Embolism. -International Normalized Ratio (INR): 2.5 - 3.5 for Mechanical Prosthetic valve. ID Date Data Source [id number] 10/11/2020 07:11:00 AM EDT [facility] Name Value Range Interpretation Code Description Data Vivian rce(s) Supporting Document(s) CBC W/AUTOMATED DIFF [facility] COMPLETE BLOOD COUNT Leukocytes [#/volume] in Blood by Automated count 7.8 10^3/uL 4.2 - 1 1.0 [facility] Erythrocytes [#/volume] in Blood by Automated count 3.93 10^6/uL 4. 20 - 5.40 L [facility] Hemoglobin [Mass/volume] in Blood 12.3 g/dL 12.0 - 16.0 [facility] Hematocrit [Volume Fraction] of Blood by Automated count 37.7 % 3 7.0 - 47.0 [facility] Erythrocyte mean corpuscular volume [Entitic volume] by Auto mated count 95.9 fL 81.0 - 101 [facility] Erythrocyte mean corpuscular hemoglobin [Entitic mass] by Automated count 31.3 pg 27.0 - 34.0 [facility] Erythrocyte mean corpuscular hemoglobin concentration [Mass/volume] by Automated count 32.6 g/dL 31.0 - 36.0 [facility] Erythrocyte distribution width [Ratio] by Automated count 16.8 % 11.5 - 14.5 H [facility] Platelets [#/volume] in Blood by Automated count 184 10^3/uL 150 - 45 0 [facility] Platelet mean volume [Entitic volume] in Blood by Automated count 10.8 fL 7.4 - 10.4 H [facility] Neutrophils/100 leukocytes in Blood by Automated count 69.8 % 37. 0 - 80.0 [facility] Lymphocytes/100 leukocytes in Blood by Manual count 15.2 % 25.0 - 40.0 L [facility] Monocytes/100 leukocytes in Blood by Automated count 11.7 % 3.0 - 8.0 H [facility] Eosinophils/100 leukocytes in Blood by Automated count 2.8 % 0.0 - 7.0 [facility] Basophils/100 leukocytes in Blood by Automated count 0.4 % 0.0 - 2.5 [facility] %IG 0.1 % 0.0 - 0.[address] [facility] %NRBC 0.0 % 0.0 - 0.0 [facility] al Neutrophils [#/volume] in Blood by Automated count 5.42 10^3/uL 2.00 - 6.90 [facility] Lymphocytes [#/volume] in Blood by Automated count 1.18 10^3/uL 0.60 - 3.40 [facility] Monocytes [#/volume] in Blood by Automated count 0.91 10^3/uL 0.00 - 0.90 H [facility] Eosinophils [#/volume] in Blood by Automated count 0.22 10^3/uL 0.00 - 0.70 [facility] Basophils [#/volume] in Blood by Automated count 0.03 10^3/uL 0.00 - 0.20 [facility] #IG 0.01 10^3/uL 0.00 - 0.10 [facility] ospital #NRBC 0.00 10^3/uL 0.00 - 0.00 [facility] ospital MANUAL DIFF NOT INDICATED [facility] RBC MORPH NOT INDICATED [facility] spital ID Date Data Source [id number] 10/10/2020 06:31:00 AM EDT [facility] (Bolivar Sotomayor [...] (Bolivar Sotomayor MD) ID Date Data Source [id number] 10/10/2020 06:31:00 AM EDT [facility] (Bolivar Sotomayor [...] (Bolivar Sotomayor MD) ID Date Data Source [id number] 10/10/2020 06:31:00 AM EDT [facility] (Bolivar Sotomayor [...] >32 mL/min Normal ID Date Data Source [id number] 10/10/2020 06:31:00 AM EDT [facility] (Bolivar Sotomayor [...] (Bolivar Sotomayor MD) ID Date Data Source [id number] 10/10/2020 06:31:00 AM EDT [facility] (Bolivar Sotomayor [...] (Bolivar Sotomayor MD) ID Date Data Source [id number] 10/10/2020 06:31:00 AM EDT [facility] (Bolivar Sotomayor MD) Name Value Range Interpretation Code Description Data Vivian rce(s) Supporting Document(s) Fibrin D-dimer [Presence] in Platelet poor plasma 2.91 ug/mL 0.27-0.50 Above high normal [facility] (Bolivar Sotomayor MD) ID Date Data Source [id number] 10/10/2020 06:31:00 AM EDT [facility] (Bolivar Sotomayor [...] Thrombosis, Pulmonary Embolus, Tissue heart valves, Acute CA, Atrial Fibrillation, Valvular heart disease and recurrent Systemic Embolism. -International Normalized Ratio (INR): 2 .5 - 3.5 for Mechanical Prosthetic valve. ID Date Data Source [id number] 10/10/2020 11:06:00 AM [facility] Name Value Range Interpretation Code Description Data Vivian rce(s) Supporting Document(s) Thyroxine (T4) free index in Serum or Plasma by calculation 0.90 NG/DL 0.93 - 1.70 L [facility] ID Date Data Source [id number] 10/10/2020 11:06:00 AM [facility] Name Value Range Interpretation Code Description Data Vivian rce(s) Supporting Document(s) Thyrotropin [Units/volume] in Serum or Plasma by Detec tion limit <= 0.05 mIU/L 16.18 uIU/mL 0.47 - 5.01 H [facility] ID Date Data Source [id number] 10/10/2020 08:09:00 AM [facility] Name Value Range Interpretation Code Description Data Vivian rce(s) Supporting Document(s) TROPONIN T 0.06 NG/ML 0.00 - 0.10 [facility] TROPONIN T0.1 ng/ml Recommended as the c linical threshold value forTroponin T. ID Date Data Source [id number] 10/10/2020 07:57:00 AM EDT [facility] Name Value Range Interpretation Code Description Data Vivian rce(s) Supporting Document(s) BNP 7701 PG/ML 0 - 450 [facility] ID Date Data Source [id number] 10/10/2020 07:57:00 AM EDT [facility] Name Value Range Interpretation Code Description Data Vivian rce(s) Supporting Document(s) COMPREHENSIVE METABOLIC PANEL [facility] COMPREHENSIVE METABOLIC PANEL Sodium [Moles/volume] in Serum or Plasma 144 mEq/L 134 - 153 [facility] Potassium [Moles/volume] in Serum or Plasma 3.4 mEq/L 3.6 - 5.0 L [facility] Chloride [Moles/volume] in Serum or Plasma 98 mEq/L 98 - 107 [facility] Carbon dioxide, total [Moles/volume] in Serum or Plasma 40 MEQ/L 22 - 30 H [facility] Glucose [Mass/volume] in Serum or Plasma 87 MG/DL 70 - 99 [facility] BUN 22 MG/DL 7 - 21 H [facility] al Creatinine [Mass/volume] in Serum or Plasma 1.3 MG/DL 0.7 - 1.5 [facility] BUN/CREAT 17 8 - 27 [facility] Protein [Mass/volume] in Serum or Plasma 5.5 G/DL 6.3 - 8.2 L [facility] Albumin [Mass/volume] in Serum or Plasma 3.3 G/DL 3.9 - 5.0 L [facility] Globulin [Mass/volume] in Serum by calculation 2.2 GM/DL 2.4 - 3.2 L [facility] A/G RATIO 1.5 0.8 - 2.0 [facility] Calcium [Mass/volume] in Serum or Plasma 8.2 MG/DL 8.4 - 10.2 L [facility] Bilirubin.total [Mass/volume] in Serum or Plasma 0.7 MG/DL 0.2 - 1.3 [facility] Alkaline phosphatase [Enzymatic activity/volume] in Serum or Plasma 247 U/L 38 - 126 H [facility] Aspartate aminotransferase [Enzymatic activity/volume] in Serum or Plasma 21 U/L 5 - 40 [facility] Alanine aminotransferase [Enzymatic activity/volume] in Seru m or Plasma 14 U/L 7 - 56 [facility] Anion gap 3 in Serum or Plasma 6.0 mmol/L 8.0 - 16.0 L [facility] AGE 80 yrs [facility] al NON-AA GFR 42 mL/min [facility] AFR AMER GFR >60 [facility] Male GFR In terprentation 20-49 [...] >32 mL/min Normal ID Date Data Source [id number] 10/10/2020 07:57:00 AM EDT [facility] Name Value Range Interpretation Code Description Data Vivian rce(s) Supporting Document(s) CVE PANEL [facility] LIPID PANEL Cholesterol [Mass/volume] in Serum or Plasma 83 MG/DL 131 - 200 L [facility] Deprecated Triglyceride [Mass/volume] in Serum or Plasma 72 MG/DL 3 5 - 160 [facility] HDL 30 MG/DL 29 - 86 [facility] Cholesterol in LDL [Mass/volume] in Serum or Plasma by Direc t assay 45 mg/dL 65 - 175 L [facility] Cholesterol.total/Cholesterol in HDL [Mass Ratio] in Serum o r Plasma 2.8 3.2 - 4.4 L [facility] LDL/HDL 1.50 1.47 - 3.[address] [facility] CVE RISK CHOL/HDL LDL/HDLMEN: 1/2 AVERAGE 3.43 1.00 AVERAGE 4.97 3.55 2X AVERAGE 9.55 6.25 3X AVERAGE 23.99 7.99WOMEN: 1/2 AVERAGE 3.27 1.47 AVERAGE 4.44 3.22 2X AVERAGE 7.05 5.03 3X AVERAGE 11.04 6.14 ID Date Data Source [id number] 10/10/2020 07:57:00 AM EDT [facility] Name Value Range Interpretation Code Description Data Vivian rce(s) Supporting Document(s) Iron [Mass/volume] in Serum or Plasma 33 UG/DL 42 - 135 L [facility] ID Date Data Source [id number] 10/10/2020 07:51:00 AM EDT [facility] Name Value Range Interpretation Code Description Data Vivian rce(s) Supporting Document(s) Cobalamin (Vitamin B12) [Mass/volume] in Serum or Plasma 587 PG/ML 232 - 1245 [facility] ID Date Data Source [id number] 10/10/2020 07:44:00 AM EDT [facility] Name Value Range Interpretation Code Description Data Vivian rce(s) Supporting Document(s) Magnesium [Mass/volume] in Serum or Plasma 2.2 MG/DL 1.7 - 2.2 [facility] ID Date Data Source [id number] 10/10/2020 07:21:00 AM EDT [facility] Name Value Range Interpretation Code Description Data Vivian rce(s) Supporting Document(s) CBC W/AUTOMATED DIFF [facility] COMPLETE BLOOD COUNT Leukocytes [#/volume] in Blood by Automated count 7.1 10^3/uL 4.2 - 1 1.0 [facility] Erythrocytes [#/volume] in Blood by Automated count 3.83 10^6/uL 4. 20 - 5.40 L [facility] Hemoglobin [Mass/volume] in Blood 12.0 g/dL 12.0 - 16.0 [facility] Hematocrit [Volume Fraction] of Blood by Automated count 37.2 % 3 7.0 - 47.0 [facility] Erythrocyte mean corpuscular volume [Entitic volume] by Auto mated count 97.1 fL 81.0 - 101 [facility] Erythrocyte mean corpuscular hemoglobin [Entitic mass] by Automated count 31.3 pg 27.0 - 34.0 [facility] Erythrocyte mean corpuscular hemoglobin concentration [Mass/volume] by Automated count 32.3 g/dL 31.0 - 36.0 [facility] Erythrocyte distribution width [Ratio] by Automated count 17.0 % 11.5 - 14.5 H [facility] Platelets [#/volume] in Blood by Automated count 185 10^3/uL 150 - 45 0 [facility] Platelet mean volume [Entitic volume] in Blood by Automated count 11.7 fL 7.4 - 10.4 H [facility] Neutrophils/100 leukocytes in Blood by Automated count 67.7 % 37. 0 - 80.0 [facility] Lymphocytes/100 leukocytes in Blood by Manual count 14.4 % 25.0 - 40.0 L [facility] Monocytes/100 leukocytes in Blood by Automated count 13.5 % 3.0 - 8.0 H [facility] Eosinophils/100 leukocytes in Blood by Automated count 4.0 % 0.0 - 7.0 [facility] Basophils/100 leukocytes in Blood by Automated count 0.3 % 0.0 - 2.5 [facility] %IG 0.1 % 0.0 - 0.[address] %NRBC 0.0 % 0.0 - 0.0 [facility] al Neutrophils [#/volume] in Blood by Automated count 4.78 10^3/uL 2.00 - 6.90 [facility] Lymphocytes [#/volume] in Blood by Automated count 1.02 10^3/uL 0.60 - 3.40 [facility] Monocytes [#/volume] in Blood by Automated count 0.95 10^3/uL 0.00 - 0.90 H [facility] Eosinophils [#/volume] in Blood by Automated count 0.28 10^3/uL 0.00 - 0.70 [facility] Basophils [#/volume] in Blood by Automated count 0.02 10^3/uL 0.00 - 0.20 [facility] #IG 0.01 10^3/uL 0.00 - 0.10 [facility]sp[facility] #NRBC 0.00 10^3/uL 0.00 - 0.00 [facility] ospital MANUAL DIFF NOT INDICATED [facility] RBC MORPH NOT INDICATED [facility] sp[facility] ID Date Data Source [id number] 10/10/2020 07:20:00 AM EDT [facility] Name Value Range Interpretation Code Description Data Vivian rce(s) Supporting Document(s) Fibrin D-dimer FEU [Mass/volume] in Platelet poor plasma 2.91 ug /mL 0.27 - 0.50 H [facility] ID Date Data Source [id number] 10/10/2020 07:20:00 AM EDT [facility] Name Value Range Interpretation Code Description Data Vivian rce(s) Supporting Document(s) Prothrombin time (PT) 29.4 SECONDS 11.0 - 15.5 [facility] INR in Platelet poor plasma by Coagulation assay 2.74 0.93 - 1. 23 H [facility] \\BLDo\\INR INTERPRETATION\\BLDx\\ Therapeutic range for Coumadin and related oral anticoagulants. - International Normalized Ratio (INR): 2.0 - 3.0 for Venous Thrombosis, Pulmonary Embolus, Tissue heart valves, Acute CA, Atrial Fibrillation, Valvular heart disease and recurrent Systemic Embolism. -International Normalized Ratio (INR): 2.5 - 3.5 for Mechanical Prosthetic valve. ID Date Data Source [id number] 10/09/2020 06:55:00 PM EDT [facility] (Bolivar Sotomayor MD) Name Value Range Interpretation Code Description Data Vivian rce(s) Supporting Document(s) Laboratory test finding (navigational concept) Laboratory test result [facility] (Bolivar Sotomayor MD) <content>_CULTURE URINE_</content>
<content>^$535272</content>
<content>^^070843</content>
<content>$$538556</content>
<content>^^631886</content>
<content>$$ 692754</content>
<content>$$418292</content>
<content>$$499135</content>
<content>$$ 525130</content>
<content>$$239772</content>
<content>$$452612</content>
<content> $$450452</content>
<content>$$543593</content>
<content>$$672044</conten t>
<content>$$963485</content>
<content>$$682065</content>
<content> $$935749</content>
<content>$$527852</content>
<content>$$062534</content>
<content>$$06690 0</content>
<content>$$053117</content>
<content>$$276984</content>
<content>$$813677</content>
<content>$$683869</content>
<content>$$532936</content>
<content>$$ 296695</content>
<content>$$314580</content>
<content>$$118556</content>
<content> ^^157121</content>
<content>$$149183</content>
<content>$$536489</conten t>
<content>$$144727</content>
<content></content>
<content>-- Continued on next page --</content>
<content>Patient: ANNA Medina Order: [id number] Page 2</content>
<content>Culture: CULTURE URINE Status: Final</keira nt>
<content> < /content>
<content></content>
<content></content>
<content>-- Continued on next page --</content>
<content>Patient: ANNA Medina Order: [id number] Page 2</content>
<content>Culture: CULTURE URINE Status: Prelim</content>
<content> < /content>
<content></content>
<content>$$569400</content>
<content>$ $601169</content>
<content></content>
<content>REPORTED DATE/TIME: 10/13/2020 14:07</content>
<content>Culture: CULTURE [...]
<content></content>
<content></content>
<content> Patient: ANNA Medina Order: [id number] Page 3</content>
<content>Culture: CULTURE URINE Status: Final</content>
[...] S S . . . . . .30645-2</content>
<content>Gentamicin S S . . . . . .267-5</content>
<content>Imipenem S S . . . . . .279-0</content>
<content>Levofloxacin S S . . . . . .71744-7</content>
<content>Meropenem S S . . . . . .6652-2</content>
<content>Nitrofurantoin S S . . . . . .363-2</content>
<content>Piperacillin/Tazobactam S S . . . . . .412-7</content>
<content>Tetracycline S S . . . . . .496-0</content>
<content>Tobramycin S S . . . . . .508-2</content>
<content>Trimethoprim/Sulfa S S . . . . . .516-5</content>
<content></content>
<content>P1 Test performed by: [facility] #: [id number]</content>
<content>[address]</content>
<content>[id number]</content>
<content>[place]S [address]</content>
<content>Framing Manager : Sae Pena MD NPI #:</content>
<content>Door Closer :</content>
<content>10/12/20.0828.XMT.SENT REF</content>
<content>10/13/20.1419.XMT.SENT REF</content>
<content>10/13/20. .to MANUEL HERRMANN via modem</content>
<content>10/13/20. .to NAUN MTZ via fax</content>
<content></content>
<content></content> ID Date Data Source [id number] 10/09/2020 06:55:00 PM EDT [facility] (Bolivar Sotomayor [...] for Troponin T. ID Date Data Source [id number] 10/09/2020 06:55:00 PM EDT [facility] (Bolivar Sotomayor [...] Thrombosis, Pulmonary Embolus, Tissue heart valves, Acute CA, Atrial Fibrillation, Valvular heart disease and recurrent Systemic Embolism. -International Normalized Ratio (INR): 2 .5 - 3.5 for Mechanical Prosthetic valve. ID Date Data Source [id number] 10/13/2020 02:19:00 PM EDT [facility] Name Value Range Interpretation Code Description Data Vivian rce(s) Supporting Document(s) CULTURE URINE [facility] _CULTURE URINE_$$090090$$243348$$885526$$007612$$932721$$014448$$861257$$470642$$521947$$ 002863$$161068$$026497$$481293$$189539$$405854$$909496$$533451$$941467$$124269$$ 087252$$584819$$893282$$208860$$530241$$348700$$433948$$329048 -- Continued on next page --Patient: ANNA Medina Order: Page 2Culture: CULTURE URINE Status: Final ==== -- Continued on next page --Patient: ANNA Medina Order: Page 2Culture: CULTURE URINE Status: Prelim =====$$[id number]$$[id number] DATE/TIME: 10/13/2020 14:07Culture: CULTURE URINE Status: FinalIsolate [...] 10/12/2020 07:27 ET Gram negative rodsUrine Culture,Comprehensive: R4Bebrupduxcr coli Flag: APatient: ANNA Medina Order: [id number] Page 3Culture: CULTURE URINE Status: Final ISOLATE [...] S S . . . . . .49608-6Oykpdrgflq S S . . . . . .267-5Imipenem S S . . . . . .279-0Levofloxacin S S . . . . . .08060-1Kevxwypeg S S . . . . . .6652-2Nitrofurantoin S S . . . . . .363-2Piperacillin/Tazobactam S S . . . . . .412-7Tetracycline S S . . . . . .496-0Tobramycin S S . . . . . .508-2Trimethoprim/Sulfa S S . . . . . .516-5P1 Test performed by: Kami Acosta [facility] #: [id number] [address] [place] [address] [id number] [facility] [id number] Director : Sae Pena MD NPI #:D[employer] Closer : 10/12/20.0828.XMT.SENT REF 10/13/20.1419.XMT.SENT REF 10/13/20.141. .to MANUEL HERRMANN via modem 10/13/20141. .to NAUN MTZ via fax ID Date Data Source [id number] 10/09/2020 07:45:00 PM EDT [facility] Name Value Range Interpretation Code Description Data Vivian rce(s) Supporting Document(s) TROPONIN T 0.05 NG/ML 0.00 - 0.10 [facility] TROPONIN T0.1 ng/ml Recommended as the c linical threshold value forTroponin T. ID Date Data Source [id number] 10/09/2020 07:45:00 PM EDT [facility] Value Range Interpretation Code Description Data Vivian rce(s) Supporting Document(s) Hemoglobin A1c/Hemoglobin.total in Blood 8.7 % 4.4 - 6.1 H [facility] {A1]{HB] ID Date Data Source [id number] 10/09/2020 07:32:00 PM EDT [facility] Name Value Range Interpretation Code Description Data Vivian rce(s) Supporting Document(s) Magnesium [Mass/volume] in Serum or Plasma 2.2 MG/DL 1.7 - 2.2 [facility] ID Date Data Source [id number] 10/09/2020 07:27:00 PM EDT [facility] Name Value Range Interpretation Code Description Data Vivian rce(s) Supporting Document(s) Prothrombin time (PT) 29.0 SECONDS 11.0 - 15.5 [facility] INR in Platelet poor plasma by Coagulation assay 2.69 0.93 - 1. 23 H [facility] \\BLDo\\INR INTERPRETATION\\BLDx\\ Therapeutic range for Coumadin and related oral anticoagulants. - International Normalized Ratio (INR): 2.0 - 3.0 for Venous Thrombosis, Pulmonary Embolus, Tissue heart valves, Acute CA, Atrial Fibrillation, Valvular heart disease and recurrent Systemic Embolism. -International Normalized Ratio (INR): 2.5 - 3.5 for Mechanical Prosthetic valve. ID Date Data Source [id number] 10/09/2020 01:49:00 PM EDT [facility] [address] [place] [address] PHONE: [phone] FAX: [phone] Name .................. : ANNA Medina Acct Number.................. : [id number] ROOM. ................. : TR-02 MR Number ................... : [id number] Stay type ............. : E/R Discharge Date......... ... : Admit Date ......... : 10/09/20 Admit Phys .................... : [facility] Date of ....... : 1940 Family Phys ................... : NAUN MTZ Phone .................. : [phone] Age ................................ : 80 Film# .................. .:[id number] Sex ................................. : F Unsigned transcriptions are preliminary reports and do not represent a medical or legal document CHEST PORTABLE [id number] COMPLETE:10/09/20 12:36 36285 Reason(s): shortnessof breath CHEST PORTABLE, 10/09/20: INDICATION: [...] rce(s) Supporting Document(s) ID Date Data Source [id number] 10/09/2020 12:19:00 PM EDT [facility] 1 OrderSheet [facility] Emergency Department [address] [place] [address] Phone #: ext- [phone] 10/09/2020 12:18 Patient: JOY DENT Sex: F [...] (Not) (NotResident inCongregate CareSetting) (Not 2 OrderSheet [facility] [address] [place] [address] Phone #: ext- [phone] 10/09/2020 12:18 Patient: JOY DENT Sandy cct#: [id number] Sex: F : 1940 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 [place] [place] [facility] ; Zeij9Xpaliby Monitor 12:36 10/09/2020 12:37 [facility] ED(continuous) [facility] [place] ; Dsat3NAZ 12:36 10/09/2020 12:37 [facility] ED [facility] [place] [place] [facility] ; Giqi8YUS 12:36 10/09/2020 12:40 Gilberto Mcfarland Victoria Lisa RN ;Obtain Old EKG 12:36 10/09/2020 12:40 Gilberto Mcfarland Victoria Lisa RN ;Obtain Old Records 12:36 10/09/2020 12:40 Bartolo, 3 OrderSheet [facility] [address] [place] [address] Phone #: ext- [phone] 10/09/2020 12:18 Patient: [...] Victoria John R.N. ;Vitals 12:36 10/09/2020 12:37 [place] [facility] Amara Macias [facility], [place] [facility] ; Tech1[Electronically signed by Srinivas Long R.N. (16:27 10/09/2020)][Electronically signed by Amara Macias (16:44 10/09/2020)][Electronically locked by Srinivas Long R.N. (16:27 10/09/2020)] Name Value Range Interpretation Code Description Data Vivian rce(s) Supporting Document(s) ID Date Data Source [id number] 10/09/2020 12:19:00 PM EDT [facility] 1 Medication Reconciliation Report [facility] [address] [place] [address] Phone #: ext- [phone] 10/09/2020 12:18 Patient: [...] 1 tablet, daily 2 Medication Reconciliation Report [facility] [address] [place] [address] Phone #: ext- [phone] 10/09/2020 12:18 Patient: [...] rce(s) Supporting Document(s) ID Date Data Source [id number] 10/09/2020 12:19:00 PM EDT [facility] 1 Medication Administration Record [facility] [address] [place] [address] Phone #: ext [phone] 10/09/2020 12:18 Patient: JOY DENT Sex: F : 1940 Age: 80yWeight: 94.3 kgHeight/Length: 61 inBMI: 39.3ALLERGIES: Aloe, PCN, Penicillins Date/Time Medication Administered Medication OrderedGiven LASIX [IVP] Lasix IVP 40 mg (NOW)14:33 10/09/2020 Dose: 40 mg Srinivas Yoo R.N. Site: #1 left Name Value Range Interpretation Code Description Data Vivian rce(s) Supporting Document(s) ID Date Data Source [id number] 10/09/2020 12:19:00 PM EDT [facility] 1 General Instructions [facility] [address] [place] [address] Phone #: ext- [phone] 10/09/2020 12:18 Patient: JOY DENT Sex: F : 1940 Age: 80yAcute moderate systolic, left ventricular congestive heart failure.(Electronically signed by Amara Macias 10/09/2020 16:44) Name Value Range Interpretation Code Description Data Vivian rce(s) Supporting Document(s) ID Date Data Source [id number] 10/09/2020 12:19:00 PM EDT [facility] 1 Clinical Report - Nurses [facility] [address] [place], [place] [address] Phone #: ext- [phone] 10/09/2020 12:18 Patient: JOY DENT Sex: F [...] pt has paced rhythm noted on monitor).Treatment WEATHER CLERK:None. --12:10/09/20 Leni Parks R.N.12:10/09/20. BP: 153/47. HR: [...] Leni, R.N.AllergiesAloe. 2 Clinical Report - Nurses [facility] Emergency Department [address] [place] [address] Phone #: ext- [phone] 10/09/2020 12:18 Patient: JOY DENT Sex: F [...] Parks R.N. 3 Clinical Report - Nurses [facility] Emergency Department [address] [place] [address] Phone #: ext- [phone] 10/09/2020 12:18 Patient: [...] RR: 15. O2 saturation: 100%. --13:18 10/09/20 [facility] Bzlo722:26 10/09/20. BP: 165/56. MAP: 92. HR: 60. RR: 14. O2 saturation: 100%. --13:26 10/09/20 [facility]1The patient is calm and resting quietly. Overall patient status is the same- she states feels the same.Side rails up x 2. Bed placed in lowest position. --13:44 10/09/20 Srinivas Long R.N.13:57 10/09/20. HR: 60. RR: 17. O2 saturation: 100%. --13:58 10/09/20 [place] [address]The patient is resting quietly and sleeping. Overall [...] RR: 12. O2 saturation: 100%. --15:01 10/09/20 [facility] Gkxg902:30 10/09/20. BP: 164/67. MAP: 99. HR: 66. RR: 13. O2 saturation: 100%. --15:53 10/09/20 [facility] Eqwj490:58 10/09/20. BP: 159/74. MAP: 102. HR: 60. RR: 19. O2 saturation: 97%. --15:58 10/09/20 [facility] Tech1.Intake OutputUrine output: 250 mL with return of yellow-colored urine. --14:59 10/09/20 Srinivas Long R.N. 4 Clinical Report - Nurses [facility] Emergency Department [address] [place] [address] Phone #: ext- [phone] 10/09/2020 12:18 - Patient: JOY DENT Sex: [...] rce(s) Supporting Document(s) ID Date Data Source [id number] 10/09/2020 12:19:00 PM EDT [facility] 1 Clinical Report - Physicians/Mid Levels [facility] Emergency Department [address] [place] [address] Phone #: ext- [phone] 10/09/2020 12:18 Patient: JOY DENT Sex: F : 1940 Age: 80y Time Seen: 12:31 10/09/2020; initial patient contact, initial documentation. Arrived- By ambulance. Historian- patient and EMS personnel. Disposition decision: 14:31 10/09/2020.HISTORY OF PRESENT ILLNESS Chief Complaint: DYSPNEA and HISTORY OF CONGESTIVE HEART FAILURE. This started 1 week WEATHER CLERK and is still present and worsening. It [...] Disease. Fever. 2 Clinical Report - Physicians/Mid [facility] Emergency Department [address] [place] [address] Phone #: ext- [phone] 10/09/2020 12:18 [id number] Sex: [facility] : 1940 Age: 80y Emphysema. [...] drug use.ADDITIONAL NOTES 3 Clinical Report - Physicians/[facility] Emergency Department [address] [place] [address] Phone #: ext- [phone] 10/09/2020 12:18 Patient: [...] * US [place]OPPLER [place] [address] PHONE: [phone] FAX: [phone] Clinical Report - Physicians/Mid Levels [facility] Emergency Department [address] [place] [address] Phone #: ext- [phone] 10/09/2020 12:18 Patient: JOY DENT Sex: F : 1940 Age: 80y Name .................. : ANNA Medina Acct Number.................. : [id number] ROOM. ................. : TR- 02 MR Number ................... : [id number] Stay type ............. : E/R Discharge Date......... ... : Admit Date ......... : 10/09/20 Admit Phys .................... : GILBERTO Date of ....... : 1940 Family Phys ................... : NAUN MTZ Phone .................. : [phone] Age ................................ : 80 Film# .................. .:[id number] Sex ................................. : F Unsigned transcriptions are preliminary reports and do not represent a medical or legal document DOPPLER UNILATERAL VENOUS [id number] COMPLETE:10/09/20 13:06 KNB [id number] Reason(s): Discolored Extremity Swelling, Limb LEFT LEG [...] 36.0) 5 Clinical Report - Physicians/Mid Levels [facility] Emergency Department [address] [place] [address] Phone #: ext- [phone] 10/09/2020 12:18 Patient: JOY DENT Sex: F [...] Male GFR Interprentation 20-49 yrs >60 mL/min Vyklsk56-53 yrs >56 mL/min Normal 60-69 yrs >49 mL/min Normal 70-79yrs>42 mL/min Normal 80 and above >35 mL/min Normal Female GFRInterpretation 20-39 yrs >60 mL/min Normal 40-49 yrs >58 mL/minNormal 50-59 yrs >51 mL/min Normal 60-69 yrs >45 mL/min Ueklho09-62 yrs >39 mL/min Normal 80 and above >32 mL/min NormalLipase: (KATELYN: 10/09/2020 12:44) ( MsgRcvd 10/09/2020 13:36) Final results Test Result Flag Units (Reference) LIPASE 18 U/L (13 - 60)PT/PTT: (KATELYN: 10/09/2020 12:44) ( [facility] 10/09/2020 13:03) Final results 6 Clinical Report - Physicians/Mid Levels [facility] Emergency Department [address] [place] [address] Phone #: ext- [phone] 10/09/2020 12:18 Patient: JOY DENT Sex: F : 1940 Age: 80y Test Result Flag Units (Reference) PROTIME 27.7 H SECONDS (11.0 - 15.5) INR 2.54 H (0.93 - 1.23) PTT 45.4 H SECONDS (24.8 - 36.7) \\BLDo\\INR INTERPRETATION\\BLDx\\ Therapeutic range for Coumadin andrelated oral anticoagulants. -International Normalized Ratio (INR): 2.0 - 3.0 for VenousThrombosis, Pulmonary Embolus, Tissue heart valves, Acute CA Atrial Fibrillation, Valvular heart diseaseand recurrent Systemic E mbolism. -International Normalized Ratio (INR): 2.5 - 3.5 forMechanical Prosthetic valve.Troponin-T: (KATELYN: 10/09/2020 12:44) ( [facility] 10/09/2020 13:10) Final results Test Result Flag Units (Reference) TROPONIN T 0.05 NG/ML (0.00 - 0.10) TROPONIN T0.1 ng/ml Recommended as the clinical threshold value forTroponin T.D-Dimer: (KATELYN: 10/09/2020 12:44) ( [facility] 10/09/2020 13:03) Final results Test Result Flag Units (Reference) D- DIMER QUANT 3.05 H ug/mL (0.27 - 0.50)BNP: (KATELYN: 10/09/2020 12:44) ( MsgRcvd 10/09/2020 13:42) Final results Test Result Flag Units (Reference) BNP 9595 H PG/ML (0 - 450)Chest Portable 1 View: (KATELYN: 10/09/2020 12:36) ( MsgRcvd 10/09/2020 13:51) Final results Exam CHEST PORTABLE [facility] [address] [place] [address] PHONE: [phone] FAX: [phone] Name .................. : ANNA ALLEN Carol Acct Number.................. : [id number] ROOM. ................. : TR02 Number ................... : [id number] Stay type ............. : E/R Discharge Date......... ... : Admit Date ......... : 10/09/20 Admit Phys .................... : [facility] Date of ....... : 1940 Family Phys ................... : NAUN MTZ Phone .................. : [phone] Age ................................ : 80 Film# .................. .:[id number] Sex ................................. : F Unsigned transcriptions are preliminary reports and do not represent a medical or legal document CHEST PORTABLE [id number] COMPLETE:08/26 12:36 70144 Reason(s): shortnessof breath CHEST PORTABLE, 10/09/20: INDICATION: Shortness of breath. Comparison 05/06/20. FINDINGS: No infiltrate or effusion. Stable mild cardiomegaly. Left-sided pacemaker. Patient is status post sternotomy. Atherosclerotic changes along the aorta. IMPRESSION: 7 Clinical Report - Physicians/Mid Levels [facility] Emergency Department [address] [place] [address] Phone #: ext- [phone] 10/09/2020 12:18 Patient: JOY DENT Sex: F [...] failure. 8 Clinical Report - Physicians/Mid Levels [facility] Emergency Department [address] [place] [address] Phone #: ext- [phone] 10/09/2020 12:18 Patient: JOY DENT Sex: F : 1940 Age: 80y(Electronically signed by Amara Macias 10/09/2020 16:44) Name Value Range Interpretation Code Description Data Vivian e(s) Supporting Document(s) ID Date Data Source [id number] 10/09/2020 12:19:00 PM EDT [facility] Addenda for NIDHI DENTLigia Aleman RN: [id number] VisitID: [id number] Date: 15:27faxed med rec to [employer] @ 15:25 with [facility](Electronically signed by Hai Fung 10/09/2020 15:27)10/09/2020 16:19faxed med rec with [employer] [facility] @ 15:38(Electronically signed by Hai Fung 10/09/2020 16:19) Name Value Range Interpretation Code Description Data Vivian rce(s) Supporting Document(s) ID Date Data Source [id number] 10/09/2020 02:38:00 PM EDT [facility] Name Value Range Interpretation Code Description Data [facility] rce(s) Supporting Document(s) COVID19 Case rprt NOT DETECTED [facility] This lab was ordered by [facility] RICHARD TONY and reported by [facility]. ID Date Data Source [id number] 10/09/2020 02:59:00 PM EDT [facility] NOT DETECTEDNOT DETECTED{ PROC EDURAL CONTROL VALID KIT LOT # _[id number] 10/09/20.1459.DW . KIT EXP DATE _56-03-20 10/09/20.1459.DW . NORMAL RANGE IS NOT DETECTEDNEGATIVE RESULTS SHOULD BE TREATED PRESUMPTIVE AND, IF INCONSISTENT WITHCLINICAL SIGNS AND SYMPTOMS OR NECESSARY FOR PATIENT MANAGEMENT, SHOULD BETESTED WITH DIFFERENT AUTHORIZED OR CLEARED MOLECULAR TESTS. NEGATIVE RESULTSDO NOT PRECLUDE SARS-CoV-2 INFECTION AND SHOULD NOT BE USED THE SOLE BASISFOR PATIENT MANAGEMENT DECISIONS. Name Value Range Interpretation Code Description Data [facility] rce(s) Supporting Document(s) ID Date Data Source [id number] 10/09/2020 01:49:00 [place] [address] PHONE: [phone] FAX: [phone] Name .................. : ANNA Moreirat Number.................. : [id number] ROOM. ................. : TR-02 Number ................... : [id number] Stay type ............. : E/R Discharge Date......... ... : Admit Date ......... : 10/09/20 Admit Phys .................... : [facility] Date of ....... : 1940 Family Phys ................... : NAUN MTZ Phone .................. : [phone] Age ................................ : 80 Film# .................. .:[id number] Sex ................................. : F Unsigned transcriptions are preliminary reports and do not represent a medical or legal document DOPPLER UNILATERAL VENOUS [id number] COMPLETE:10/09/20 13:06 KNB [id number] Reason(s): Discolored Ext remity LEFT LEG VENOUS [...] rce(s) Supporting Document(s) ID Date Data Source [id number] 10/09/2020 01:41:00 PM EDT [facility] Name Value Range Interpretation Code Description Data Vivian rce(s) Supporting Document(s) BNP 9595 PG/ML 0 - 450 H [facility] ID Date Data Source [id number] 10/09/2020 01:41:00 PM EDT [facility] Name Value Range Interpretation Code Description Data Vivian rce(s) Supporting Document(s) COMPREHENSIVE METABOLIC PANEL [facility] COMPREHENSIVE METABOLIC PANEL Sodium [Moles/volume] in Serum or Plasma 141 mEq/L 134 - 153 [facility] Potassium [Moles/volume] in Serum or Plasma 4.2 mEq/L 3.6 - 5.0 [facility] Chloride [Moles/volume] in Serum or Plasma 96 mEq/L 98 - 107 L [facility] Carbon dioxide, total [Moles/volume] in Serum or Plasma 35 MEQ/L 22 - 30 H [facility] Glucose [Mass/volume] in Serum or Plasma 140 MG/DL 70 - 99 H [facility] BUN 26 MG/DL 7 - 21 H [facility] Creatinine [Mass/volume] in Serum or Plasma 1.4 MG/DL 0.7 - 1.5 [facility] BUN/CREAT 19 8 - 27 [facility] Protein [Mass/volume] in Serum or Plasma 6.0 G/DL 6.3 - 8.2 L [facility] Albumin [Mass/volume] in Serum or Plasma 3.8 G/DL 3.9 - 5.0 L [facility] Globulin [Mass/volume] in Serum by calculation 2.2 GM/DL 2.4 - 3.2 L [facility] A/G RATIO 1.7 0.8 - 2.0 [facility] Calcium [Mass/volume] in Serum or Plasma 8.8 MG/DL 8.4 - 10.2 [facility] Bilirubin.total [Mass/volume] in Serum or Plasma 0.9 MG/DL 0.2 - 1.3 [facility] Alkaline phosphatase [Enzymatic activity/volume] in Serum or Plasma 304 U/L 38 - 126 H [facility] Aspartate aminotransferase [Enzymatic activity/volume] in Serum or Plasma 28 U/L 5 - 40 [facility] Alanine aminotransferase [Enzymatic activity/volume] in Seru m or Plasma 17 U/L 7 - 56 [facility] Anion gap 3 in Serum or Plasma 10.0 mmol/L 8.0 - 16.0 [facility] AGE 80 yrs [facility] NON-AA GFR 38 mL/min [facility] AFR AMER GFR >60 [facility] Male GFR In terprentation 20-49 [...] >32 mL/min Normal ID Date Data Source [id number] 10/09/2020 01:36:00 PM T [facility] Name Value Range Interpretation Code Description Data Vivian rce(s) Supporting Document(s) Lipase [Enzymatic activity/volume] in Serum or Plasma 18 U/L 13 - 60 [facility] ID Date Data Source [id number] 10/09/2020 01:09:00 PM EDT [facility] Name Value Range Interpretation Code Description Data Vivian rce(s) Supporting Document(s) TROPONIN T 0.05 NG/ML 0.00 - 0.10 [facility] TROPONIN T0.1 ng/ml Recommended as the c linical threshold value forTroponin T. ID Date Data Source [id number] 10/09/2020 01:03:00 PM [facility] Value Range Interpretation Code Description Data Vivian rce(s) Supporting Document(s) CBC W/AUTOMATED DIFF [facility] COMPLETE BLOOD COUNT Leukocytes [#/volume] in Blood by Automated count 8.3 10^3/uL 4.2 - 1 1.0 [facility] Erythrocytes [#/volume] in Blood by Automated count 4.08 10^6/uL 4. 20 - 5.40 L [facility] Hemoglobin [Mass/volume] in Blood 12.7 g/dL 12.0 - 16.0 [facility] Hematocrit [Volume Fraction] of Blood by Automated count 39.3 % 3 7.0 - 47.0 [facility] Erythrocyte mean corpuscular volume [Entitic volume] by Auto mated count 96.3 fL 81.0 - 101 [facility] Erythrocyte mean corpuscular hemoglobin [Entitic mass] by Automated count 31.1 pg 27.0 - 34.0 [facility] Erythrocyte mean corpuscular hemoglobin concentration [Mass/volume] by Automated count 32.3 g/dL 31.0 - 36.0 [facility] Erythrocyte distribution width [Ratio] by Automated count 16.9 % 11.5 - 14.5 H [facility] Platelets [#/volume] in Blood by Automated count 187 10^3/uL 150 - 45 0 [facility] Platelet mean volume [Entitic volume] in Blood by Automated count 11.6 fL 7.4 - 10.4 H [facility] Neutrophils/100 leukocytes in Blood by Automated count 73.7 % 37. 0 - 80.0 [facility] Lymphocytes/100 leukocytes in Blood by Manual count 13.8 % 25.0 - 40.0 L [facility] Monocytes/100 leukocytes in Blood by Automated count 10.8 % 3.0 - 8.0 H [facility] Eosinophils/100 leukocytes in Blood by Automated count 0.5 % 0.0 - 7.0 [facility] Basophils/100 leukocytes in Blood by Automated count 0.5 % 0.0 - 2.5 [facility] %IG 0.7 % 0.0 - 0.0 [facility] al %NRBC 0.0 % 0.0 - 0.0 [facility] al Neutrophils [#/volume] in Blood by Automated count 6.12 10^3/uL 2.00 - 6.90 [facility] Lymphocytes [#/volume] in Blood by Automated count 1.15 10^3/uL 0.60 - 3.40 [facility] Monocytes [#/volume] in Blood by Automated count 0.90 10^3/uL 0.00 - 0.90 [facility] Eosinophils [#/volume] in Blood by Automated count 0.04 10^3/uL 0.00 - 0.70 [facility] Basophils [#/volume] in Blood by Automated count 0.04 10^3/uL 0.00 - 0.20 [facility] #IG 0.06 10^3/uL 0.00 - 0.10 [facility]spital #NRBC 0.00 10^3/uL 0.00 - 0.00 [facility]sp[facility] MANUAL DIFF NOT INDICATED [facility] RBC MORPH NOT INDICATED [facility] ID Date Data Source [id number] 10/09/2020 01:03:00 PM EDT [facility] Name Value Range Interpretation Code Description Data Vivian rce(s) Supporting Document(s) Fibrin D-dimer FEU [Mass/volume] in Platelet poor plasma 3.05 ug /mL 0.27 - 0.50 H [facility] ID Date Data Source [id number] 10/09/2020 01:02:00 PM EDT [facility] Name Value Range Interpretation Code Description Data Vivian rce(s) Supporting Document(s) Prothrombin time (PT) 27.7 SECONDS 11.0 - 15.5 H [facility] INR in Platelet poor plasma by Coagulation assay 2.54 0.93 - 1. 23 H [facility] aPTT in Blood by Coagulation assay 45.4 SECONDS 24.8 - 36.7 H [facility] \\BLDo\\INR INTERPRETATION\\BLDx\\ Therapeutic range for Coumadin and related oral anticoagulants. - International Normalized Ratio (INR): 2.0 - 3.0 for Venous Thrombosis, Pulmonary Embolus, Tissue heart valves, Acute CA Atrial Fibrillation, Valvular heart disease and recurrent Systemic Embolism. - International Normalized Ratio (INR): 2.5 - 3.5 for Mechanical Prosthetic valve. ID Date Data Source [id number] 10/01/2020 08:39:42 AM EDT [facility] NT INFORMATIONPatient MRN Name Date of Age Gend*PT [id number] Joy Dent 1940 80 years F HOPPT Location Admission Date/Time Visit ID Attending Provider09/14/20918 --- --- EPI ID CSN Admitting Provider [id number] Toyin Lopez MD([id number])NAME: Joy Babb#: [id number] #: DATE: 09/14/2020 PT TYPE: C SURACCT #: [id number] : 1940 SEX: femaleReferring Physician:Primary Care Physician: [...] right common femoral artery was accessed using 5-Mauritian micropuncture kit,which was switched to a 5-Mauritian sheath and Omni flush catheter was placed upand over the bifurcation into the left common femoral artery. left leg runoffwas done, which showed patent common femoral, patent profunda femoris artery.The superficial femoral artery has a proximal highly diseased area with 85%stenosi. The popliteal artery is diseased with a 2 -vessel diseased runoffdistally. Patient was given 5000 units ofheparin and up and over 5-Mauritian sheath was placed and wire access was obtainedthrough the diseased region intothe left above-knee popliteal artery. Left superficial femoral artery balloonangioplasty was done with 4 mm balloon. Left superficial femoral artery balloonangioplasty was repeated with drug alluding ballloon, 4 x 80 mm balloon.Completion film showed resolution ofthat diseased area, patent popliteal artery with unchanged distal runoff. Thesheath was exchanged for a short 5-Mauritian sheath. A Mynxclosure device was used to close the right groin arteriotomy. There was nobleeding or hematoma present. Patient was stable throughout the procedure Muriel was present throughout.Contrast : 14 Sandra Lopez MD Name Value Range Interpretation Code Description Data Vivian rce(s) Supporting Document(s) ID Date Data Source [id number] 09/14/2020 12:22:31 PM EDT [facility] Name Value Range Interpretation Code Description Data Vivian rce(s) Supporting Document(s) IR IS ARTERIOGRAM EXTREMITY SINGLE LEFT [facility] ID Date Data Source [id number] 09/14/2020 10:15:15 AM EDT [facility] Name Value Range Interpretation Code Description Data Vivian rce(s) Supporting Document(s) POC NOVA GLU 222 mg/dL (70-99) H [facility] PERFORMED BY [facility] CLINICAL STAFF ID Date Data Source [id number] 09/14/2020 10:10:47 AM EDT [facility] Name Value Range Interpretation Code Description Data Vivian rce(s) Supporting Document(s) POC PTINR 1.3 [facility] SUGGESTED THERAPEUTIC RANGES USING INR F ORSTABILIZED ANTICOAGULATED PATIENTS:STANDARD DOSE THERAPY INR 2.0-3.0 DVT, PE, PREVENT DVT OR EMBOLISMHIGH DOSE THERAPY INR 2.5-3.5 PREVENT EMBOLISM FROM MECHANICAL HEART VALVEPERFORMED BY [facility] CLINICAL STAFF ID Date Data Source [id number] 09/10/2020 09:01:00 AM EDT [facility] Name Value Range Interpretation Code Description Data Vivian rce(s) Supporting Document(s) COVID-19 RT-PCR NASAL SWAB Not Detected Not Detected [facility] A not detected (negative) test [...] developed and its performance characteristics determined by [employer] and verified at [facility]. It has not been cleared or approved by the U.S. Food and Drug Administration for diagnostic use. This test has been authorized by FDA under an EUA for use by authorized laboratories. Results should be used in conjunction with clinical findings, and should not form the sole basis for a diagnosis or treatment decision. Methods: SARS-CoV-2 Multiplex RT-PCR Assay ID Date Data Source [id number] 09/09/2020 10:15:00 AM EDT [facility] Name Value Range Interpretation Code Description Data Vivian rce(s) Supporting Document(s) SARS-CoV-2 (COVID-19) N gene [Presence] in Respiratory specimen by KIET with probe detection NEGATIVE [facility] This lab was ordered by Enrique Brock and reported by [facility]. ID Date Data Source [id number] 09/04/2020 10:41:00 AM EDT [facility]) Name Value Range Interpretation Code Description Data Vivian rce(s) Supporting Document(s) Laboratory test finding (navigational concept) Laboratory test result [facility] ([facility]) BASIC METABOLIC PANEL Sodium 141 meq/L 134-153 [...] mg/dL 0.7-1.5 [facility] ([facility]) BUN 25 mg/dL 7-21 [facility] ([facility]) BUN/Creat 18 8-27 [facility] ([facility]) Calcium 9.7 mg/dL 8.4-10.2 [facility] ([facility]) Anion Gap 9.0 mmol/L 8.0-16.0 [facility] Laboratory test finding (navigational concept) Laboratory test result [facility] ([facility]) Laboratory test finding (navigational concept) 80 yrs [facility] ([facility]) Laboratory test finding (navigational concept) 38 mL/min [facility] ([facility]) Male GFR Interprentation 20-49 yrs >60 mL/min [...] >32 mL/min Normal ID Date Data Source [id number] 09/04/2020 10:41:00 AM EDT [facility] Name Value Range Interpretation Code Description Data Vivian rce(s) Supporting Document(s) Protime 20.0 s 11.0-15.5 [facility] ([facility]) PTT 38.6 s 24.8-36.7 [facility] ([facility]) \\BLDo\\INR INTERPRETATION\\BLDx\\ Therapeutic range for Coumadin and related oral anticoagulants. -International Normalized Ratio (INR): 2 .0 - 3.0 for Venous Thrombosis, Pulmonary Embolus, Tissue heart valves, Acute CA Atrial Fibrillation, Valvular heart disease and recurrent Systemic Embolism. -International Normalized Ratio (INR): 2 .5 - 3.5 for Mechanical Prosthetic valve. Inr 1.62 0.93-1.23 [facility] ([facility] ID Date Data Source [id number] 09/04/2020 10:41:00 AM EDT [facility] Name Value Range Interpretation Code [...] 150-450 [facility] ([facility] [place] 8.9 % 3.0-8.0 [facility] ([facility] [...] 1.45 10^3/uL 0.60-3.40 [facility] ([facility]) Laboratory test finding (navigational concept) 5.66 10^3/uL 2.00-6.90 [facility] ([facility]) Laboratory test finding (navigational concept) 0.03 10^3/uL 0.00-0.10 [facility] ([facility]) Laboratory test finding (navigational concept) 0.03 10^3/uL 0.00-0.20 [facility] ([facility]) Laboratory test finding (navigational concept) 0.26 10^3/uL 0.00-0.70 [facility] ([facility]) Laboratory test finding (navigational concept) Laboratory test result [facility] ([facility]) Laboratory test finding (navigational concept) 0.00 10^3/uL 0.00-0.00 [facility] Manual Diff Laboratory test result [facility] ([facility]) ID Date Data Source [id number] 09/04/2020 11:47:00 AM EDT [facility] Name Value Range Interpretation Code Description Data Vivian rce(s) Supporting Document(s) BASIC METABOLIC PANEL [facility] BASIC METABOLIC PANEL Sodium [Moles/volume] in Serum or Plasma 141 mEq/L 134 - 153 [facility] Potassium [Moles/volume] in Serum or Plasma 4.3 mEq/L 3.6 - 5.0 [facility] Chloride [Moles/volume] in Serum or Plasma 97 mEq/L 98 - 107 L [facility] Carbon dioxide, total [Moles/volume] in Serum or Plasma 35 MEQ/L 22 - 30 [facility] Glucose [Mass/volume] in Serum or Plasma 198 MG/DL 70 - 99 [facility] BUN 25 MG/DL 7 - 21 [facility] Creatinine [Mass/volume] in Serum or Plasma 1.4 MG/DL 0.7 - 1.5 [facility] BUN/CREAT 18 8 - 27 [facility] Calcium [Mass/volume] in Serum or Plasma 9.7 MG/DL 8.4 - 10.2 [facility] Anion gap 3 in Serum or Plasma 9.0 mmol/L 8.0 - 16.0 [facility] [address] [facility] AMER GFR >60 [facility] NON-AA GFR 38 mL/min [facility] Male GFR Inter prentation 20-49 [...] >32 mL/min Normal ID Date Data Source [id number] 09/04/2020 11:02:00 AM EDT [facility] Name Value Range Interpretation Code Description Data Vivian rce(s) Supporting Document(s) Prothrombin time (PT) 20.0 SECONDS 11.0 - 15.5 [facility] INR in Platelet poor plasma by Coagulation assay 1.62 0.93 - 1. 23 [facility] aPTT in Blood by Coagulation assay 38.6 SECONDS 24.8 - 36.7 [facility] \\BLDo\\INR INTERPRETATION\\BLDx\\ Therapeutic range for Coumadin and related oral anticoagulants. - International Normalized Ratio (INR): 2.0 - 3.0 for Venous Thrombosis, Pulmonary Embolus, Tissue heart valves, Acute CA Atrial Fibrillation, Valvular heart disease and recurrent Systemic Embolism. - International Normalized Ratio (INR): 2.5 - 3.5 for Mechanical Prosthetic valve. ID Date Data Source [id number] 09/04/2020 10:51:00 AM EDT [facility] Name Value Range Interpretation Code Description Data Vivian rce(s) Supporting Document(s) CBC W/AUTOMATED DIFF [facility] COMPLETE BLOOD COUNT Leukocytes [#/volume] in Blood by Automated count 8.2 10^3/uL 4.2 - 1 1.0 [facility] Erythrocytes [#/volume] in Blood by Automated count 3.84 10^6/uL 4. 20 - 5.40 [facility] Hemoglobin [Mass/volume] in Blood 12.1 g/dL 12.0 - 16.0 [facility] Hematocrit [Volume Fraction] of Blood by Automated count 38.0 % 3 7.0 - 47.0 [facility] Erythrocyte mean corpuscular volume [Entitic volume] by Auto mated count 99.0 fL 81.0 - 101 [facility] Erythrocyte mean corpuscular hemoglobin [Entitic mass] by Automated count 31.5 pg 27.0 - 34.0 [facility] Erythrocyte mean corpuscular hemoglobin concentration [Mass/volume] by Automated count 31.8 g/dL 31.0 - 36.0 [facility] Erythrocyte distribution width [Ratio] by Automated count 16.4 % 11.5 - 14.5 [facility] Platelets [#/volume] in Blood by Automated count 150 10^3/uL 150 - 45 0 [facility] Platelet mean volume [Entitic volume] in Blood by Automated count 11.8 fL 7.4 - 10.4 [facility] Neutrophils/100 leukocytes in Blood by Automated count 69.3 % 37. 0 - 80.0 [facility] Lymphocytes/100 leukocytes in Blood by Manual count 17.8 % 25.0 - 40.0 [facility] Monocytes/100 leukocytes in Blood by Automated count 8.9 % 3.0 - 8.0 [facility] Eosinophils/100 leukocytes in Blood by Automated count 3.2 % 0.0 - 7.0 [facility] Basophils/100 leukocytes in Blood by Automated count 0.4 % 0.0 - 2.5 [facility] %IG 0.4 % 0.0 - 0.[address] [facility] %NRBC 0.0 % 0.0 - 0.0 [facility] Neutrophils [#/volume] in Blood by Automated count 5.66 10^3/uL 2.00 - 6.90 [facility] Lymphocytes [#/volume] in Blood by Automated count 1.45 10^3/uL 0.60 - 3.40 [facility] Monocytes [#/volume] in Blood by Automated count 0.73 10^3/uL 0.00 - 0.90 [facility] Eosinophils [#/volume] in Blood by Automated count 0.26 10^3/uL 0.00 - 0.70 [facility] Basophils [#/volume] in Blood by Automated count 0.03 10^3/uL 0.00 - 0.20 [facility] #IG 0.03 10^3/uL 0.00 - 0.10 [facility] #NRBC 0.00 10^3/uL 0.00 - 0.00 [facility] MANUAL DIFF NOT INDICATED [facility] RBC MORPH NOT INDICATED [facility] ID Date Data Source [id number] 08/21/2020 01:49:00 PM EDT [facility] Name Value Range Interpretation Code Description Data Vivian rce(s) Supporting Document(s) SARS-CoV-2 (COVID 19) NEGATIVE - SARS-CoV-2 (COVID19) [facility] This lab was ordered by [facility] a nd reported by [facility]. ID Date Data Source [id number] 08/03/2020 10:28:00 AM EDT [facility] ([facility] Name Value Range Interpretation Code Description Data Vivian rce(s) Supporting Document(s) Arterial Ultrasound Lower Extremity Left Laboratory test result [facility] ([facility]) ID Date Data Source [id number] 06/12/2020 01:22:23 PM EST [facility] Name Value Range Interpretation Code Description Data Vivian rce(s) Supporting Document(s) &PDF [facility] NLKPLl7pVwCZQgJy85/QBAwxIXQtw5OuQXykEVp6GPvzDKYlT7NuoBicKYNHPMruCg7VATRyJRTpAiFj gU3 [file] /5a1HuoIYlnGRVS0CW0ng8FUZDnWGI436zt/ZxG [file] AgICAgICAgICAgICAgICAgICAgICAgICAgICAgICAgICAgICAgICAgICAgICAgICAgICAgICAgICAgIC AgICAgICAgICAgICAgICAgICAgICANCiAgICAgICAgICAgICAgICAgICAgICAgICAgICAgICAgICAgIC AgICAgICAgICAgICAgICAgICAgICAgICAgICAgICAg ICAgICAgICAgICAgICAgICAgICAgICAgICAgICAgICANCiAgICAgICAgICAgICAgICAgICAgICAgICAg ICAgICAgICAgICAgICAgICAgICAgICAgICAgICAgICAgICAgICAgICAgICAgICAgICAgICAgICAgICAg ICAgICAgICAgICAgICANCiAgICAgICAgICAgICAgIC AgICAgICAgICAgICAgICAgICAgICAgICAgICAgICAgICAgICAgICAgICAgICAgICAgICAgICAgICAgIC AgICAgICAgICAgICAgICAgICAgICAgICANCiAgICAgICAgICAgICAgICAgICAgICAgICAgICAgICAgIC AgICAgICAgICAgICAgICAgICAgICAgICAgICAgICAg ICAgICAgICAgICAgICAgICAgICAgICAgICAgICAgICAgICANCiAgICAgICAgICAgICAgICAgICAgICAg ICAgICAgICAgICAgICAgICAgICAgICAgICAgICAgICAgICAgICAgICAgICAgICAgICAgICAgICAgICAg ICAgICAgICAgICAgICAgICANCiAgICAgICAgICAgIC AgICAgICAgICAgICAgICAgICAgICAgICAgICAgICAgICAgICAgICAgICAgICAgICAgICAgICAgICAgIC AgICAgICAgICAgICAgICAgICAgICAgICAgICANCiAgICAgICAgICAgICAgICAgICAgICAgICAgICAgIC AgICAgICAgICAgICAgICAgICAgICAgICAgICAgICAg ICAgICAgICAgICAgICAgICAgICAgICAgICAgICAgICAgICAgICANCiAgICAgICAgICAgICAgICAgICAg ICAgICAgICAgICAgICAgICAgICAgICAgICAgICAgICAgICAgICAgICAgICAgICAgICAgICAgICAgICAg ICAgICAgICAgICAgICAgICAgICANCiAgICAgICAgIC AgICAgICAgICAgICAgICAgICAgICAgICAgICAgICAgICAgICAgICAgICAgICAgICAgICAgICAgICAgIC AgICAgICAgICAgICAgICAgICAgICAgICAgICAgICANCjw/aFSnM9hdrRRqvaA0D9nxMe7JWp8SFY5mb0 EpEWZfPQyvwmVpPwdXSnNvCQGfAbnJAzz3EEwhGM6C oUBtC2VfY8KbVFmqAS1FJZIfHBDavBTvJITbRHGfXvB1QSWcRYxfKX4RgXFhVLweAPQkCOOkLvJjEUGs MCDzWPErPLJsVCHPHTSwSKJdUbVqKZmuJZ2Tb8IedFP5EIt+Ih8QMA0km5NdSXfmMvAtRJ8nhe4YWPsJ WcZfX8UslhF8TGW5CJCwPo5PWEZrRTRmrHVaAZVdPY GKRsTbM8XdpI18LZOBPb0+MZuqelMbZrvWBaK9ETAjo6ZdPSw3GX2OCDYjPKa5aPMuCZ6qyEKxhXGuMC huBG1APBP4QUceXhWzSNNqM2bLZnNeHSK7LoOflEuwCZ0LMnHmR1RdxcWyrSLlGwSeZYTWSx0+DQplbm DoKqyZGcD4BHLij3FlQLa9PL4ZCMNiZFsxIC4SLHVr bO9aTXgvEW2HVbOgIJCjISJMLtWyA76smDHqGEz5I5NcMaPsSORcXacrLIMrTRfsElShAJFhIlPlMIwz ID4+ID4+UOjwUT1KIKswghIzVSOxWd2JXDLoPDThZB9jBBYyJJUcX1Z1cIgbSXVHIsPuL1ztfotpNL0g AIRdC558dAmsajBoWORmTXIwUx2YYQLcNPV9CPMlrG XgOkUmQDJVZWroVD9WeYZjXON1zL9pNUtmNVXmTDAmY0nDNiZdvZkzAM66vAhgqwMjvKGrSRx+Pg0KZW 5vv6NhIDd9hqMcOJinDUK6CXpjTIYvSBPvSJRzYMV3AGH2OQSYJzOwXSPpNPZcBCmuCQObORLhvu8KTU TbLEO2UnUyYgXhMOUeHEBhONakYZUxSLj1SFH8JPAi GYIxXP8RBnTqJAZjCGFyMAWzIWRnFMJsvw4ARSJkWZSbKkx3IGPkCVWnIQBfEDmqVYPbAWXxAGK0TTPx WTAtYC9UPgOdKUOzHXN0XLHwRQQhQCAwjg8VQTRlJDBjNUA3QITcFBVdQDSbHFwgPSJeTEM3LvT7PNXz WZCxUM0PRcQjKQHmBWG7MBcwICSyCRLorv5APMRlGQ RwSio7YNNxMMIsAWYeOGqbHVQmFJL1QDH0ISPiKDDcWD6ZDhVoKOEoEPz9NRrnLBAjITGkub1BKAKgTO DoHPo8AHKuDQRgTLRwLWkpWHVbRWGfWwF4QXNjFWVfYL9TKxYdMYZqKEW7RhMeLEBfIJAzmd1IGBWyBH PjOIEoNANgEEVaRYLdCMzfXULhRYUoXWB1SMJaBILy TQ3QBwWaLWWcYOBcNiEcEFDmJJXyrl2LCYTrPXJeDeI9KCImBJPoICSyLOtrXSYbXPC0ZdOqQQDpJKEm JS9XByMlRYIgKDq1EtapYLHsLBAeya9LSNHpLBPtMdwiFPObVYVpMJUvUAhaIUYtXSZ3ZEy2GYGfXWNy YU7EWwMgGZEeTRtwGzDwVUGkDDNxqv3KBBUmJALuCe ThXSDnSSHrGLYpHIasIROkEIFfPWZkRODkTAPiTD7CJgZiDGNjNvz0MBotLOCmYNPdsk6IHEHwJSV6YX d5CvNdAZIzQXHgKRjnHCExYPHaNXD0ZJPrVJLbJG0QGdAjHITjHjLvXIQxSMVvLQJzwp0YHNTfTYJ0Bb WeRVUeEFPeYHOmMSovWWMbBKw5NJo8PHHwJOUmLW5F EbDdSGJrQtveVSnfJCYeMXCdyn4PIPHxVHO4KRU7MOFzUXHeUJGyYSq4hvVidIJbAIu9IS0JH7FbgfIm KpRHFa7Iu203IGF4FZOpCu8PW6bmIa5eOBGkVDHPCy7ZDMg2NXXlKFG0A0QiTKIzAflkBAh3VBC0EAP9 XqD6QJA2GFR+DSimWEEpGFCeZbW3VoO2QZQ6RTpjMX WvAcusXKphNfemPb9tXVSBIc3+YPyzwXEiwPceUQVZDpi7FxnmTXrkVENQLb6G ID Date Data Source [id number] 06/12/2020 11:30:20 AM EST [facility] NT INFORMATIONPatient MRN Name Date of Age Gend*PT [id number] Joy Dent 1940 80 years F HOPPT Location Admission Date/Time Visit ID Attending ProviderCV-27 06/12/20 0959 --- Benjamin Evans MD([id number]) EPI ID CSN Admitting Provider [id number] Benjamin Evans MD([id number])Updated H&PPlease see the scanned/dictated outpatient note.I have reviewed the note, clinical history and physical exam findings. Therehave been no significant changes.Plan as outlined in the outpatient note.Risk/benifit/alternative of cardiac catheterization was discussed withpatient/family. Risks included, but not limited to; CA, CVA, , renalimpairment, vascular complication, and need for emergency surgery were discussedand accepted by patient.Benjamin Evans MD, [facility]AAIInterventional [facility]er Name Value Range Interpretation Code Description Data Vivian rce(s) Supporting Document(s) ID Date Data Source [id number] 06/12/2020 11:24:05 AM EST [facility] Name Value Range Interpretation Code Description Data Vivian rce(s) Supporting Document(s) EKG [facility] DCNIVu3qVtPOZxIcv6EkVbLaJCLkAI3vgob7V9O2hOJrQ3SzbQUjl3laB8ZmW0RwFOVeCNDKYN6FmDTs jb2 [file] z4HPf3/+wx38z7/+3d/++n/+9p//dG9//vY//vp rheumatology///rKpA0kSR0/Vocational Training Instructor///sv/+CkLgtfk44///xzhjM/ [file] nUn7QSZBdqpmsW7Z+Robert+b+06jqLT8KtcxdWTbAdqRzwtb2JY5GObnGWDUo61J2js1jdra5ljxt1wnlsW lErVP8ADW4zwAlC18ghhTCFV3WwKEr3cuqDpJ+mXT1bFh4GwC7yWLa0qsiLaq4QKsYkFqU5ArI4GdFDF zSdAV1nCVs+cQQM/0Jm8FM0eBr7tEsapap49Bu4s6J sYtPFJSiH1o4N/j+rvg4C8o835EU+p1N8nABSB8WJ1C4keBWn4hxQsl17Mq8V6jFWVD9xvvTq4DmuWoe Ktw7hCMWxdcCrGr0SHXENhxJqRGSwtHqzDjlNNlwBnLFUvnP2PSnQu4ZuXfFwGUAW1lfu9MINAemOyLp f2VEJTrv252FhICurVBl16rxMszZBCdBGUnZ2hJVFS LdT0zEfa/Vhzr3YN4KGDCjpXdmGVlGjB5w3xSP35YpDxFeAwVFkxuHJeFrhNBam/6z//z3//gV1qnA6s /ff//vu//lf5v//++//9+x//rb7cH/60Tl/uD6f/Tjp3Tm32Nr0vvop+vd/m819W+WH5+yq9lHF92R4K +TX1HiZ6U/1lkz+1pZ3UDKLE4BOD8DB7pg2FItDtpc fU54W0082u5PYJZHMuT/EJIURl7OwJ3RVrOGqiNeyQcfoY5hvZ1qSpg8ab7+a+5HG2eietPecSej2+We IIqlOG6E8gL/q23aCYPpF3BpVdTBA/A/s3qC0S88bj9xn9Zzy8P/WPBSRQ4Dna+gk17BM5ku77/hPrvL C/C/u7sL8L+9ndpgz0q9Q/C/e0gA0j7sdyXN6xd250 hP3tY2c812s7wuAkqad6Lh+8Rvbo3UPyX3hhpfq6bIG+R7bLYGK0UX90SU5K7/2I12pAKRgQZlGhzD+6 HT/zcSxfkz3v9kc7M7OcO/73HHekOCl+JYeA+KS1edUH5APnEqAJ83zolE4Nqp2FzJAwrnIV+he2JwRW +I72oCc65/kf8z3kcI+m5Pgvv/qoSjnPL7/8qFn3gl +/+de9h3s315Jy0Iv1V31nSym1gKx4qrLUvfivv2Sn/VKw9uve7Ft+pY7N9O3+Veey/g6he9ZbJ98O36 w/0tIc8WtZJ6a5b/jSLSWFL7+qrVqp+gN58Fysj8z+B84R23kK/y9Hp6Ngff4Ymp58jmJO7xv5R1iD/K q6p/h6yQxHX/aC3bGua+q+5rvOXXuU/DghBLc06ZcQ VP GENETIC/k42am5UJclaF55VukQdoGkqpm/melY6h8YurBH4G6WnXBc4Uhag/yJRi4yjQZbjH/55tr6HCnXk3i +jWsY93AdGuav+uQ/MrXJ7/6fFWT/o77fYH+qS/3h9a/S3Er0frQV/VO3wsGyh+Mvkczk3Niuypr5lMN OsfVmie/VcIwis5VnW0if2K9S61Z0ehMo6W8V/mVzn o7KI80Qdj7F/dHsxp/6mx45tUTo/tyf1Qp/ft33M+Vf+2L9FWc73nyFpaZm9vs+bzpuvhoUfvPfbk/et Y7HlEk2mHQKM/HrTn/sSn4kj6y86ih+R49JK0SVr39i78+2k/YIkvR6gT+uS/353XPuSW/+jCsP/fl/i o3XfsnGj0Fp1dqgfzjx+0L381tL7hLWSCa9Qd9ghwn p59sM5dhXbgHOsgDqlCZ56CjFAwj2k9KyqcvW+mg+Ukusj8jkwmv/dryTY4A4iQ5ZEscZlw9B+6zjw37 m/HX8k2dJ06K3Wf8ugQa6zud9USarFdrBXlN5Ukn78Y2RSwbZiwKup7ZV9tGHt3qudCM+BuR3gh/I9IZ 4W9T+kX3XWxCiX+T9Rlcl7QKrcrCe/LfLV+CEiVG5L Ao9rPbyevwAGwMgertqhKjtHqQIZZDkfgS607+8xHO8BeZU0Vi0EF1bcmVvsI+oke6D2H/cV/hW11IL8 w/1bxuR7SAF3pJsHc5L/soN6XnotGdI3GQ386s/cB9Ju6/FB57cj4C7JW6LK/5qlm+No2knkNX2LB2Df 3hhoRs2OS5mC4aB2oLXsDmynrM9jtMQlf8AE9ju3fS 0o/dp6YbA2ZsnTtsni/CyESw64tyvzQZd66j2FOTS+nOkcN1ZLiCGyWzCHobM4cSxkhI7mnS6oZgs6Vz a1d+vyVTSgZi1DmyU9/yc+s2SXwlmB7Sov2sR7/z9HF8Zt1kCXrnersnuT8O21L+5ZIr3z6u1Ovu6kxl l8VsfQzg82F3sg05laJxLz3z42d1kttYyxoi+FV+C9 Ul1GyAGIkYgJq9dFE5awOzc3a2pMJ4XdN+a2YtDq9A9WAk/Rfstuve9I4JB7Xf7CtzI23Izg5ve91ReN FKiliq26mC9pHRx/oDpZBc8YLh9pWIUkX31z16VJS+O+V29f3+7hfU3fy8g5+b+3J/zrrus/P+379N0/ +HEbY/9+K77XLb5bOdkl1/hf+9payu6/I0zV7K9wp5 TZv/1iEjkiCh9Lg9g82+B+N0txV236z6F/dn0/af+3J/HjHvmfarNdTHu/30r17u/nbzq7x/xID9F2do Tzt/r27AIp5BEadax0xEId0IissD+ytD5AehsSG/Rw/JJ3NGK63/m+HtxPPiNMjE4bah/OSZFEl/dAPd Qee4U3+b5938g83pzR7+MMq5wOFjdPchMo+DvuXwtO cs3rudenUjfAG/BtU0ST0WA0Wc1/Ecn23Bhyf9zrJ3HKT/Qcf0p0fB1soaYx8AM11b2OBf3fU8O/dnkf TvV25P+20u3nShn73Jzq16aG2Fu1dmmlo/PGiek+RXkm/Lax24zFhb5jcUl6i5r0iaRxkJ8Uo6a4xcPd xDBMOb3R33Gy7IuGrLn/zXOC02Mc4PZ/xtjqvzk/qg 6Fq99GwqpnARkxVd05z5TUR3H9dh9Mk3XicJOdcTF/7Gu4HNbp1fC6e/Cp2Zsd5X+s+G2T4Nxnth+srt fV+5vW+cZ+mDer/21UPTMm/dtku+2tWdJ8fD95lv51tl+1ru9V9aJ2tDsEaM/95/898uLKAP5JW6An57 2QwW9LXuHglVoj/kqzz/Q/OM0RM37cuag+s++z4L7F cP7fvQwF5Bt8u13C60qDMFFC/keJSBZ1s1hOs04vRJrwh/v6M2/MxNgI7yN+Kahb+0qm2OpKF8wG2HKI PFXSiU1MP4LD/Q+6E9rfWdR7f+3iiPsg01EY4unO5Nh/Z2PMdRzeKYELgPW+xsWGmU1gEimIqnQGciKb Npkt1kds8y+5b05xuMC+gKuoHuoAdojDuxv/PqZUP2 nnTJQT0DdalqNGLLyoKwRHn2egUkOgAVqWf/HyLeO68PO800A0Jsp815Iwaze28c+4A+ODb2V/wqec58 4o7B148C20fYG80YefGxeIruWYbRioQcAUi6cdUBVqMR1btVV++qVcOgl5f02U+x2n3zeMyvKSjHH/yD M+64G5OP4r9J48iqb/typ/XlbylU32gyhG3W2v2et0 +wm4196mTSz9l+ZW/RkDOsQ54o18v7k5Xh8sv20pyvg5056m16WQ/Oq28Xmn/rwv5gKll8zb7lCqtpej 2XqG0m0w5qv5jMfk8a57ja5d8qIk5dLr+q0kUc1IKEUnn1bn+ysBZRKhqcvg5egnphf6ljkw2zw2Mng+ 911m/6KHl5/6F1Vv/tlNtTZpiyt+s9F0Ca0w2jq6Ov Sx/VWql5h6j2Ldk60+/7QvNdf8NUyvVojJqkt0Mk64+wsEss0x2JNgcueO2fO+jtP4iZ320Vu6/Z2/Vc usuVmhz2iLe99YpcmIB1h/lnLI3WpC7P4g15cx18hy8ghI+yt+j1wHk47b2dbd+cV28E7xd/WuYF4MY/ r3Lf2jyJ29zb3fsQC/h7Wvfvya817TENQtWn39puBV 1rCsZ5di8giv73536T1e5xtvJvg/TKboezUdoZ05of37urdT/Z2/JkBaZ6l/495XbNU/m3fSKM0N89/r UIt33pIJBDheOSdV89CFi04ew/enV1waLig4jNqJk5rk3n9ftSap/CQ3pd7W/hKiD9ZE77de9fbtGrsr pR34dO09nyhw/vqf957uPkt8igT1V2p03yeXiYU0jP +zc3x72ZRFz2fl590204j24F5ylke09/2XJ1qMmViSPlKY9qB9D/Wv1+XuicQ7fs7+Dq9/u7+gA9QS/Q O15b0zHfMDkjVcuUdqwUb0bAcJEpIm5xRV4hXL6zzqksS/PKdWte+/AAg6V0bGt7n3q69PS/Sz42gyRv dlpyB3bykhkRviceMvjJkgWDpYhqz9hibzV/sLevje yyEfUPpfqcpvM4lwLxdidBU/orsS4zW1QA1YAo/d3P/Q6v7En0b/WFrJRk+ADOUk9pPekvfKql3Iy92r 17+3n6vjWbmllJ16y067eAcckf7OMjOjaBrwW62VB0jv0jah875nXx46mRIoWy3E4f3lRAq/bXgF1Nj2 +70tqlA95EL76XQ50VT89NI78es/5b7C/m0Gz41u30 [file] Pvv/787k9+lr23hA0s/hAz64gtQT249R892N87Zv63J13vox9vpn/d0ifi4zuZM30gWe3/2KJ475TkwN I42w7LaF6/WEeCMy135H4Icgm9H6jOh9/u754/e3Jz +X257s8bq4yjhx7zOG5o73o+c/2785cT3+uXp/N/9xM2A04nou6znDB8+smXd0+ePr2+f/L82Z/s+/zk PO/60kN6z528+O500j/+bvs2q17/ge8q4rOvT+//9wCZtz0hCq9//OX0gx/+evjw/hBf1C/GNUvpKvLV aYJy/c0f+fvIhwoiRs574wxqAu2mF9tvXh9f321B8l O+t+zt5fj4/5K9Qe5n3/a53qFW9bB45nhrL67o3YneSRATnJS7MpM0gqcR3R5rvbSukAplbo577ilfvd 1gSJDjp3g6opuwar19iv9fzSP9X+ZOg9wqjmV+clo01Onaa39tw8uawawb0Y961HUvB9r/m3xu1qAe6h Dm/a+hand picker/7Pw9s/1srntaebw0/UW1uk/unuZ+O3dy8P P/59Ef7Xr/ef7n/UVn6yf+1ia/v2/otv71+h/pK9E7Uk0c6zmJ3l0C8WUPnmBeUFjj8MhxW6vDB8eIh1 054y011smx15pjf3c4k761c//JU9a5paoAzhV1quML/98JfT0/j3jz/93VPp95E4+aC9u8hPM8y9hJ27 +V3Zue4iIb9/vO5xK1g0+WEd5qw3Z5U3asyD+umHV1 c83/HtUdqXc/P961c/v3/r8bSTy8RQ93hs9eOhlxpqhp2Nt6+gxCm7ejFQza+rFw//en1Ihw//PPBwZy Ksex4oz8Fg3L23tjcs1pm3Rl7CRybdaP8hv0oZv07+7WUD2VA8h/Z7x4exyL3PGh1rlLv4+/8HqvnOAQ avooWkaGHtUO9ADS5xj8KpAfI6AHFev0HsGIzbWKl4 fXCeFOsjjwDep7BdogadO7Bnj6XgJxPqKWEyMaOqRhh2RWLtFnO4iJNeTuWyCGAsB0HyRAWoXlA3AfNw FHBUCY0UCILwcjJrKnAiIOY+VzRlWD1truvePEAts2MzCTngOUzjEZTrI3N2tFiwIFCyM1YjxH58OMNi B5StnrZ0ZEG7ACPpPiSaPTMdnBUdJTXjEIE+PmVuZG 8hwratQLZlz9TrMYrtNRQ0tK0oGKmVXFACHIhDOWktAfE3q51exzVGIJVcVWSeCP8WlfYrsOibtnHwmW UtSLC1TjFyNHLjEXXtVRM1TFCPRODnGMSdMERaOSPqB0PenOdzIYkVQIENBNiBPScqEnIda6B5RYJapb TEQHNjTAVKB5tsLQDkUNyeELn7TVHvG0ZeflAswDKy XDKVDKxkSoqiTWTgcO1pxBjnW3DhKKE1p8QrYK7GF7RbAMPjVMXKTYT5v8CzRNCkekyvgwrvTsOuGGYb NRGaYBQlDG2Jpx2szRHkzoEqMAJOQDffHtmiXV8ynEeofzowP9QekFWzSXZ+WwTaLM7pgw6+CjEgMCBv Azc7SKMkFNxfYKBeZTCaZKYfI3kvYFAhCdFzFGShAc OhBN2Ir3UfuFMiPo4oqjFpLuzLcYErMzbhVMFdWBPjYERhZqXVQXHnKEPbZTZuPMQ1UQQjVHCkFMxeQM YeLGL1CXm2DOSvPRMpSH8zYlTkHUDyZJQ5FUljASXfZSLchyCESKCdGMH5IzusEoDdCTQrNVHhHUfrWT MpOGUdKIXvPDM7EFV5LLLdGeYiBOXqZIMpWLXzFVKz CXPstnPMDKSmMCWqNKT2GZBuPYZzOZWkQEknYNMeKRLiZMbgGZCjPODqFH7yRuBkOUPcZXGoDRqfGIKu YWOkxoPLRXNgSTNiIPJuRAYjTFWaFTGyGSfuQAYkNLXqQCWrQZYoAROoNE7wRcEzLREyTMY4NZJmCLPd JKEkjmRJENZpODLiRXh3ZHBrZULiNSRuUOliXINdMO LsTWA5IBVqQXDnLP5fUqHvARQkZSZ1OvSuMROcOKZeolNYLEUrXCPzAXC3WuHvQXUqBFZnUPdaFHVsYL VhLEyrWUQtZVYwPQ1kCrOcNCWfLOOiQRfeCWGxTDQyhsVCDHPlZTPbGFRfPzKgXZXpGVRzUGsqCIHgGS D4LkE1FHCvIJZpXK0zZeLoHHDvAUC4KDsdXJLmUAPd qhKQGMOlBMStCQvtZKSwGOBhUCQeFAfyKVKsSGBfRTU2JPEmMIJzGF4iLiSbJBOpGBFqOZCfMyX4ExEa TgSQkWSpwSvwnox1UIgtG9k5ZAZfKDxgOS3axeGtRKReHtqzDd2xdJR3NEZqRnwPUp8Ot0FjmqB1myPo DkB4ARW7VgRaAY9A ID Date Data Source [id number] 06/12/2020 10:35:57 AM EST [facility] Name Value Range Interpretation Code Description Data Vivian rce(s) Supporting Document(s) POC NOVA GLU 79 mg/dL (70-99) [facility] CLINICAL STAFF ID Date Data Source [id number] 06/12/2020 10:36:28 AM EST [facility] Name Value Range Interpretation Code Description Data Vivian rce(s) Supporting Document(s) POC PTINR 1.4 [facility] SUGGESTED THERAPEUTIC RANGES USING INR F ORSTABILIZED ANTICOAGULATED PATIENTS:STANDARD DOSE THERAPY INR 2.0-3.0 DVT, PE, PREVENT DVT OR EMBOLISMHIGH DOSE THERAPY INR 2.5-3.5 PREVENT EMBOLISM FROM MECHANICAL HEART VALVEPERFORMED BY [facility] ID Date Data Source [id number] 06/11/2020 09:53:00 AM EST [facility] [address] [place] [address] PHONE: [phone] FAX: [phone] Name .................. : ANNA Medina Acct Number.................. : [id number] ROOM. ................. : MR Number ................... : [id number] Stay type ............. : O/P Discharge Date......... ... : 06/10/20 Admit Date ......... : 06/10/20 Admit Phys .................... : NAUN MTZ Date of ....... : 1940 Family Phys ................... : NAUN MTZ Phone .................. : [phone] Age ................................ : 80 Film# .................. .:[id number] Sex ................................. : F Unsigned transcriptions are preliminary reports and do not represent a medical or legal document SPINE THORACIC [id number] COMPLETE:06/10/20 11:34 3549 (SPINE PROC REASON: PAIN THORACIC SPINE, 06/10/20: FINDINGS: Status post median sternotomy. Pacer leads in good position. 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 IMPRESSION: DJD. No definite fracture seen. Electronically Reviewed and Signed By KVNG CABRERA MD , 06/11/20 09:53, [facility] Transcribe Initials: [facility], Transcribe Date: 06/10/20 14:45, Dictation Date: Copy for: NAUN HARTLEY via fax Copy for: 71 0 [facility] REC Page 1 of 1 Name Value Range Interpretation Code Description Data Vivian rce(s) Supporting Document(s) ID Date Data Source [id number] 06/11/2020 09:37:00 [place] [address] PHONE: [phone] FAX: [phone] Name .................. : ANNA Medina Acct Number.................. : [id number] ROOM. ................. : Number ................... : [id number] Stay type ............. : O/P Discharge Date......... ... : 06/10/20 Admit Date ......... : 06/10/20 Admit Phys .................... : NAUN MTZ Date of ....... : 1940 Family Phys ................... : NAUN MTZ Phone .................. : [phone] Age ................................ : 80 Film# .................. .:[id number] Sex ................................. : F Unsigned transcriptions are preliminary reports and do not represent a medical or legal document SPINE LS COMPLETE [id number] COMPLETE:06/10/20 11:34 3548 (SPINE PROC REASON: PAIN [...] for: NAUN HARTLEY via fax Copy for: [address] [place] [address] REC Page 1 of 1 Name Value Range Interpretation Code Description Data Vivian rce(s) Supporting Document(s) ID Date Data Source [id number] 06/07/2020 10:45:00 AM EST [facility] ([facility]) Name Value Range Interpretation Code Description Data Vivian rce(s) Supporting Document(s) Laboratory test finding (navigational concept) Laboratory test result [facility] ([facility]) This nucleic acid amplification test was developed and its performance characteristics determined by [employer]. Nucleic acid amplification tests include RT- PCR [...] detected) result in this assay. Performed at: [place] [id number] Door Closer: Clara Quevedo MD, Phone: [phone] Not Detected ID Date Data Source [id number] 06/07/2020 10:45:00 AM EST [facility] Name Value Range Interpretation Code Description Data Vivian rce(s) Supporting Document(s) SARS coronavirus 2 RNA Not Detected [facility] [place] This lab was ordered by [facility] and reported by [facility]. ID Date Data Source [id number] 05/19/2020 11:00:00 AM EST [facility] ([facility] [...] >32 mL/min Normal ID Date Data Source [id number] 05/19/2020 11:00:00 AM EST [facility] ([facility] [...] (Bolivar Sotomayor MD) ID Date Data Source [id number] 05/19/2020 11:00:00 AM EST [facility] ([facility] Sotomayor MD) Name Value Range Interpretation Code Description Data Vivian rce(s) Supporting Document(s) Laboratory test finding (navigational concept) 2.69 0 .93-1.23 Above high normal [facility] ([facility] Sotomayor MD) \\BLDo\\INR INTERPRETATION\\BLDx\\ Therapeutic range for Coumadin and related oral anticoagulants. -International Normalized Ratio (INR): 2 .0 - 3.0 for Venous Thrombosis, Pulmonary Embolus, Tissue heart valves, Acute CA, Atrial Fibrillation, Valvular heart disease and recurrent Systemic Embolism. -International Normalized Ratio (INR): 2 .5 - 3.5 for Mechanical Prosthetic valve. Laboratory test finding (navigational concept) 29.9 s 1 1.0-15.5 Above high normal [facility] ([facility]olivar Sotomayor MD) ID Date Data Source [id number] 05/19/2020 12:04:00 PM [facility] Name Value Range Interpretation Code Description Data Vivian rce(s) Supporting Document(s) COMPREHENSIVE METABOLIC PANEL [facility] COMPREHENSIVE METABOLIC PANEL Sodium [Moles/volume] in Serum or Plasma 138 mEq/L 134 - 153 [facility] Potassium [Moles/volume] in Serum or Plasma 4.9 mEq/L 3.6 - 5.0 [facility] Chloride [Moles/volume] in Serum or Plasma 95 mEq/L 98 - 107 L [facility] Carbon dioxide, total [Moles/volume] in Serum or Plasma 36 MEQ/L 22 - 30 H [facility] Glucose [Mass/volume] in Serum or Plasma 259 MG/DL 65 - 110 H [facility] BUN 26 MG/DL 7 - 21 H [facility] Creatinine [Mass/volume] in Serum or Plasma 1.5 MG/DL 0.7 - 1.5 [facility] BUN/CREAT 17 8 - 27 [facility] Protein [Mass/volume] in Serum or Plasma 6.2 G/DL 6.3 - 8.2 L [facility] Albumin [Mass/volume] in Serum or Plasma 3.8 G/DL 3.9 - 5.0 L [facility] Globulin [Mass/volume] in Serum by calculation 2.4 GM/DL 2.4 - 3.2 [facility] A/G RATIO 1.6 0.8 - 2.0 [facility] Calcium [Mass/volume] in Serum or Plasma 9.4 MG/DL 8.4 - 10.2 [facility] Bilirubin.total [Mass/volume] in Serum or Plasma 1.3 MG/DL 0.2 - 1.3 [facility] Alkaline phosphatase [Enzymatic activity/volume] in Serum or Plasma 209 U/L 38 - 126 H [facility] Aspartate aminotransferase [Enzymatic activity/volume] in Serum or Plasma 27 U/L 5 - 40 [facility] Alanine aminotransferase [Enzymatic activity/volume] in Seru m or Plasma 18 U/L 7 - 56 [facility] Anion gap 3 in Serum or Plasma 7.0 mmol/L 8.0 - 16.0 L [facility] AGE 80 yrs [facility] NON-AA GFR 36 mL/min [facility] A[facility] AMER GFR >60 [facility] Male GFR In terprentation 20-49 [...] >32 mL/min Normal ID Date Data Source [id number] 05/19/2020 11:38:00 AM [facility] Name Value Range Interpretation Code Description Data Vivian rce(s) Supporting Document(s) CBC NO DIFF [facility] [facility] COMPLETE BLOOD COUNT Leukocytes [#/volume] in Blood by Automated count 10.4 10^3/uL 4.2 - 11.0 [facility] Erythrocytes [#/volume] in Blood by Automated count 4.83 10^6/uL 4. 20 - 5.40 [facility] Hemoglobin [Mass/volume] in Blood 14.8 g/dL 12.0 - 16.0 [facility] Hematocrit [Volume Fraction] of Blood by Automated count 44.9 % 3 7.0 - 47.0 [facility] Erythrocyte mean corpuscular volume [Entitic volume] by Auto mated count 93.0 fL 81.0 - 101 [facility] Erythrocyte mean corpuscular hemoglobin [Entitic mass] by Automated count 30.6 pg 27.0 - 34.0 [facility] Erythrocyte mean corpuscular hemoglobin concentration [Mass/volume] by Automated count 33.0 g/dL 31.0 - 36.0 [facility] Erythrocyte distribution width [Ratio] by Automated count 16.2 % 11.5 - 14.5 H [facility] Platelets [#/volume] in Blood by Automated count 195 10^3/uL 150 - 45 0 [facility] Platelet mean volume [Entitic volume] in Blood by Automated count 11.7 fL 7.4 - 10.4 [facility] ID Date Data Source [id number] 05/19/2020 11:38:00 AM [facility] Name Value Range Interpretation Code Description Data Vivian rce(s) Supporting Document(s) Prothrombin time (PT) 29.9 SECONDS 11.0 - 15.5 [facility] INR in Platelet poor plasma by Coagulation assay 2.69 0.93 - 1. 23 [facility] \\BLDo\\INR INTERPRETATION\\BLDx\\ Therapeutic range for Coumadin and related oral anticoagulants. - International Normalized Ratio (INR): 2.0 - 3.0 for Venous Thrombosis, Pulmonary Embolus, Tissue heart valves, Acute CA, Atrial Fibrillation, Valvular heart disease and recurrent Systemic Embolism. -International Normalized Ratio (INR): 2.5 - 3.5 for Mechanical Prosthetic valve. ID Date Data Source [id number] 05/12/2020 02:44:00 [place] [address] PROGRESS NOTENAME: ANNA Medina ROOM#: 108-1DATE OF : 1940 MR#: [id number] DATE: 05/09/20 OF SERVICE: 05/12/2020The patient is [...] also pulled [facility] I spoke to the ER doctor [facility].DD: Bolivar Sotomayor MD, PC 05/12/20 14:19DT: SSR 05/12/20 14:43DS: Bolivar Sotomayor MD, PC 05/19/20 09:33 1 Name Value Range Interpretation Code Description Data Vivian rce(s) Supporting Document(s) ID Date Data Source [id number] 05/11/2020 10:43:00 [place] [address] PROGRESS NOTENAME: ANNA Medina ROOM#: 108-1DATE OF : 1940 MR#: [id number] DATE: 05/09/20 OF SERVICE: 05/11/2020UBJECTIVE:This patient came [...] Bolivar Sotomayor MD, PC 05/19/20 09:33 [address] [place] [address] PROGRESS NOTENAME: ANNA Medina ROOM#: 108-1DATE OF : 1940 MR#: [id number] DATE: 05/09/20 2 Name Value Range Interpretation Code Description Data Vivian rce(s) Supporting Document(s) ID Date Data Source [id number] 05/07/2020 11:07:00 [place] [address] PROGRESS NOTENAME: ANNA BRUMFIELD#: 108-1DATE OF : 1940 MR#: [id number] DATE: 05/06/20 OF SERVICE: 05/07/2020SUBJECTIVE:This patient came [...] Bolivar Sotomayor MD, PC 05/19/20 09:33 [address] [place] [address] PROGRESS NOTENAME: ANNA Medina ROOM#: 108-1DATE OF : 1940 MR#: [id number] DATE: 05/06/20 2 Name Value Range Interpretation Code Description Data Vivian rce(s) Supporting Document(s) ID Date Data Source [id number] 05/14/2020 11:19:00 [place] [address] PROGRESS NOTENAME: ANNA Medina ROOM#: 108-1DATE OF : 1940 MR#: [id number] DATE: 05/09/20 OF SERVICE: 05/14/20SUBJECTIVE: She was [...] slightly at 13.2, hemoglobin 15.1, hematocrit 45.1, [id number]. Sodium is 144, potassium 3.7, chloride 101, [...] resume her 3 mg a day. 1 [place] [address] PROGRESS NOTENAME: ANNA Medina ROOM#: 108-1DATE OF : 1940 MR#: [id number] DATE: 05/09/20 6. Noninsulin dependent diabetes type 2. Continue to monitor blood sugars. 7. Continue medications as ordered.DD: MARTHA Tobar 05/14/20 19:23DT: JAMEE 05/14/20 23:01DS: MARTHA Tobar 05/18/20 21:01 2 Name Value Range Interpretation Code Description Data Vivian rce(s) Supporting Document(s) ID Date Data Source [id number] 05/13/2020 11:05:00 [place] [address] PROGRESS NOTENAME: ANNA Medina ROOM#: 108-1DATE OF : 1940 MR#: [id number] DATE: 05/09/20 OF SERVICE: 05/13/20SUBJECTIVE: She was [...] rce(s) Supporting Document(s) ID Date Data Source [id number] 05/15/2020 07:09:00 [place] [address] DISCHARGE SUMMARYNAME: ANNA Medina ROOM#: 108-1DATE OF : 1940 MR#: [id number] PHYS: Bolivar Sotomayor MD, PC DATE: 05/09/20 [...] was started on aLasix drip, 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 She had had a positive [...] Follow up chest x-ray showedimproving CHF. [address] [place] [address] DISCHARGE SUMMARYNAME: ANNA Medina ROOM#: 108-1DATE OF : 1940 MR#: [id number] PHYS: Bolivar Sotomayor MD, PC DATE: 05/09/20 DISCHARGED:HOSPITAL COURSE:The patient was admitted, placed on a Lasix drip, monitored. She continued to show paced rhythm. On [id number], she had no chest pain. Ejection fraction [...] [facility] Discussed with Dr. Sotomayor. She will follow up with him next week in the office ifcleared for discharge by psych. She states her breathing is excellent. It is at baseline. Vitals have been stable.Labs are improving. Chest x-ray is improving. Discussed with [facility] ER, Dr. Garcia andsocial worker and [...] insulin and fingersticks. 5. Hypertension, stable. 2 [place] [address] DISCHARGE SUMMARYNAME: ANNA Medina ROOM#: 108-1DATE OF : 1940 MR#: [id number] PHYS: Bolivar Sotomayor MD, PC DATE: 05/09/20 DISCHARGED: 6. Coronary artery disease. Follow up with Dr. Sotomayor. Ultimately schedule for cardiac catheterization. 7. History of atrial fibrillation, history of pacemaker. Continues on Coumadin. PT/INR is ordered. 8. UTI. Finish Doxycycline.Patient will be transferred to [facility] via ambulance.TRANSFER/DISCHARGE PLANS:1. Transfer to [facility].2. Follow up with Dr. Sotomayor [...] 23. Tradjenta 5 mg p.o. daily [address] [place] [address] DISCHARGE SUMMARYNAME: ANNA Medina ROOM#: 108-1DATE OF : 1940 MR#: [id number] PHYS: Bolivar Sotomayor MD, PC DATE: 05/09/20 DISCHARGED:No diuretic at this time. BUN is still elevated at 40, creatinine is 1.3.Patient transferred in stable condition.DD: MARTHA Tobar 05/15/20 18:33DT: DMZ 05/15/20 18:39DS: MARTHA Tobar 05/18/20 21:01 4 Name Value Range Interpretation Code Description Data Vivian rce(s) Supporting Document(s) ID Date Data Source [id number] 05/15/2020 11:45:00 [place] [address] PHONE: [phone] FAX: [phone] Name .................. : ANNA Medina Acct Number.................. : [id number] ROOM. ................. : 108-1 MR Number ................... : [id number] Stay type ............. : I/P Discharge Date......... ... : Admit Date ......... : 05/09/20 Admit Phys .................... : MANUEL HERRMANN Date of ....... : 1940 Family Phys ................... : NAUN MTZ Phone .................. : [phone] Age ................................ : 80 Film# .................. .:[id number] Sex ................................. : F Unsigned transcriptions are preliminary reports and do not represent a medical or legal document CHEST 2 VIEWS [id number] COMPLETE:05/14/20 22:38 DLA 1688 (REASON FOR CHEST: [...] By Anselmo Bernstein M.D. , 05/15/20 11:45, [facility] Transcribe Initials: DZ , Transcribe Date: 05/15/20 00:57, Dictation Date: Copy for: 002 [facility] Copy for: 710 MED REC Page 1 of 1 Name Value Range Interpretation Code Description Data Vivian rce(s) Supporting Document(s) ID Date Data Source [id number] 05/15/2020 05:33:00 AM EST [facility] (Bolivar Sotomayor [...] (Bolivar Sotomayor MD) ID Date Data Source [id number] 05/15/2020 05:33:00 AM EST [facility] (Bolivar Sotomayor [...] (navigational concept) 0.0 % 0.0-0.0 [facility] (Bolivar Stoomayor MD) Laboratory test finding (navigational concept) 0.42 [...] (Bolivar Sotomayor MD) ID Date Data Source [id number] 05/15/2020 05:33:00 AM EST [facility] (Bolivar Sotomayor [...] Thrombosis, Pulmonary Embolus, Tissue heart valves, Acute CA, Atrial Fibrillation, Valvular heart disease and recurrent Systemic Embolism. -International Normalized Ratio (INR): 2 .5 - 3.5 for Mechanical Prosthetic valve. ID Date Data Source [id number] 05/15/2020 07:20:00 AM [facility] Name Value Range Interpretation Code Description Data [facility](s) Supporting Document(s) COMPREHENSIVE METABOLIC PANEL [facility] COMPREHENSIVE METABOLIC PANEL Sodium [Moles/volume] in Serum or Plasma 139 mEq/L 134 - 153 [facility] Potassium [Moles/volume] in Serum or Plasma 3.6 mEq/L 3.6 - 5.0 [facility] Chloride [Moles/volume] in Serum or Plasma 97 mEq/L 98 - 107 L [facility] Carbon dioxide, total [Moles/volume] in Serum or Plasma 35 MEQ/L 22 - 30 H [facility] Glucose [Mass/volume] in Serum or Plasma 145 MG/DL 65 - 110 [facility] BUN 40 MG/DL 7 - 21 H [facility] Creatinine [Mass/volume] in Serum or Plasma 1.3 MG/DL 0.7 - 1.5 [facility] BUN/CREAT 31 8 - 27 H [facility] al Protein [Mass/volume] in Serum or Plasma 5.4 G/DL 6.3 - 8.2 L [facility] Albumin [Mass/volume] in Serum or Plasma 3.4 G/DL 3.9 - 5.0 L [facility] Globulin [Mass/volume] in Serum by calculation 2.0 GM/DL 2.4 - 3.2 L [facility] A/G RATIO 1.7 0.8 - 2.0 [facility] Calcium [Mass/volume] in Serum or Plasma 8.7 MG/DL 8.4 - 10.2 [facility] Bilirubin.total [Mass/volume] in Serum or Plasma 1.3 MG/DL 0.2 - 1.3 [facility] Alkaline phosphatase [Enzymatic activity/volume] in Serum or Plasma 182 U/L 38 - 126 H [facility] Aspartate aminotransferase [Enzymatic activity/volume] in Serum or Plasma 25 U/L 5 - 40 [facility] Alanine aminotransferase [Enzymatic activity/volume] in Seru m or Plasma 12 U/L 7 - 56 [facility] Anion gap 3 in Serum or Plasma 7.0 mmol/L 8.0 - 16.0 L [facility] AGE 80 yrs [facility] al NON-AA GFR 42 mL/min [facility] AFR AMER GFR >60 [facility] Male GFR In terprentation 20-49 [...] >32 mL/min Normal ID Date Data Source [id number] 05/15/2020 06:58:00 AM EST [facility] Name Value Range Interpretation Code Description Data Vivian rce(s) Supporting Document(s) CBC W/AUTOMATED DIFF [facility] COMPLETE BLOOD COUNT Leukocytes [#/volume] in Blood by Automated count 6.8 10^3/uL 4.2 - 1 1.0 [facility] Erythrocytes [#/volume] in Blood by Automated count 4.84 10^6/uL 4. 20 - 5.40 [facility] Hemoglobin [Mass/volume] in Blood 15.0 g/dL 12.0 - 16.0 [facility] Hematocrit [Volume Fraction] of Blood by Automated count 44.4 % 3 7.0 - 47.0 [facility] Erythrocyte mean corpuscular volume [Entitic volume] by Auto mated count 91.7 fL 81.0 - 101 [facility] Erythrocyte mean corpuscular hemoglobin [Entitic mass] by Automated count 31.0 pg 27.0 - 34.0 [facility] Erythrocyte mean corpuscular hemoglobin concentration [Mass/volume] by Automated count 33.8 g/dL 31.0 - 36.0 [facility] Erythrocyte distribution width [Ratio] by Automated count 16.7 % 11.5 - 14.5 H [facility] Platelets [#/volume] in Blood by Automated count 166 10^3/uL 150 - 45 0 [facility] Platelet mean volume [Entitic volume] in Blood by Automated count 11.9 fL 7.4 - 10.4 H [facility] Neutrophils/100 leukocytes in Blood by Automated count 60.6 % 37. 0 - 80.0 [facility] Lymphocytes/100 leukocytes in Blood by Manual count 22.7 % 25.0 - 40.0 L [facility] Monocytes/100 leukocytes in Blood by Automated count 9.7 % 3.0 - 8.0 H [facility] Eosinophils/100 leukocytes in Blood by Automated count 6.2 % 0.0 - 7.0 [facility] Basophils/100 leukocytes in Blood by Automated count 0.4 % 0.0 - 2.5 [facility] %IG 0.4 % 0.0 - 0.[address] [facility] %NRBC 0.0 % 0.0 - 0.0 [facility] al Neutrophils [#/volume] in Blood by Automated count 4.10 10^3/uL 2.00 - 6.90 [facility] Lymphocytes [#/volume] in Blood by Automated count 1.54 10^3/uL 0.60 - 3.40 [facility] Monocytes [#/volume] in Blood by Automated count 0.66 10^3/uL 0.00 - 0.90 [facility] Eosinophils [#/volume] in Blood by Automated count 0.42 10^3/uL 0.00 - 0.70 [facility] Basophils [#/volume] in Blood by Automated count 0.03 10^3/uL 0.00 - 0.20 [facility] #IG 0.03 10^3/uL 0.00 - 0.10 [facility] ospital #NRBC 0.00 10^3/uL 0.00 - 0.00 [facility] ospital MANUAL DIFF NOT INDICATED [facility] RBC MORPH NOT INDICATED [facility] spital ID Date Data Source [id number] 05/15/2020 06:57:00 AM EST [facility] Name Value Range Interpretation Code Description Data Vivian rce(s) Supporting Document(s) Prothrombin time (PT) 23.7 SECONDS 11.0 - 15.5 [facility] INR in Platelet poor plasma by Coagulation assay 2.01 0.93 - 1. 23 H [facility] \\BLDo\\INR INTERPRETATION\\BLDx\\ Therapeutic range for Coumadin and related oral anticoagulants. - International Normalized Ratio (INR): 2.0 - 3.0 for Venous Thrombosis, Pulmonary Embolus, Tissue heart valves, Acute CA, Atrial Fibrillation, Valvular heart disease and recurrent Systemic Embolism. -International Normalized Ratio (INR): 2.5 - 3.5 for Mechanical Prosthetic valve. ID Date Data Source [id number] 05/14/2020 05:26:00 AM EST [facility] (Bolivar Sotomayor [...] (Bolivar Sotomayor MD) ID Date Data Source [id number] 05/14/2020 05:26:00 AM EST [facility] (Bolivar Sotomayor [...] Sotomayor MD ) ID Date Data Source [id number] 05/14/2020 05:26:00 AM EST [facility] (Bolivar Sotomayor MD) Name Value Range Interpretation Code Description Data Vivian rce(s) Supporting Document(s) Laboratory test finding (navigational concept) 1.82 0 .93-1.23 Above high normal [facility] (Bolivar Sotomayor MD) \\BLDo\\INR INTERPRETATION\\BLDx\\ Therapeutic range for Coumadin and related oral anticoagulants. -International Normalized Ratio (INR): 2 .0 - 3.0 for Venous Thrombosis, Pulmonary Embolus, Tissue heart valves, Acute CA, Atrial Fibrillation, Valvular heart disease and recurrent Systemic Embolism. -International Normalized Ratio (INR): 2 .5 - 3.5 for Mechanical Prosthetic valve. Laboratory test finding (navigational concept) 22.0 s 1 1.0-15.5 Above high normal [facility] (Bolivar Sotomayor MD) ID Date Data Source [id number] 05/14/2020 08:11:00 AM [facility] Name Value Range Interpretation Code Description Data Vivian e(s) Supporting Document(s) CBC W/AUTOMATED DIFF [facility] COMPLETE BLOOD COUNT Leukocytes [#/volume] in Blood by Automated count 13.2 10^3/uL 4.2 - 11.0 H [facility] Erythrocytes [#/volume] in Blood by Automated count 5.02 10^6/uL 4. 20 - 5.40 [facility] Hemoglobin [Mass/volume] in Blood 15.1 g/dL 12.0 - 16.0 [facility] Hematocrit [Volume Fraction] of Blood by Automated count 45.1 % 3 7.0 - 47.0 [facility] Erythrocyte mean corpuscular volume [Entitic volume] by Auto mated count 89.8 fL 81.0 - 101 [facility] Erythrocyte mean corpuscular hemoglobin [Entitic mass] by Automated count 30.1 pg 27.0 - 34.0 [facility] Erythrocyte mean corpuscular hemoglobin concentration [Mass/volume] by Automated count 33.5 g/dL 31.0 - 36.0 [facility] Erythrocyte distribution width [Ratio] by Automated count 16.4 % 11.5 - 14.5 H [facility] Platelets [#/volume] in Blood by Automated count 198 10^3/uL 150 - 45 0 [facility] Platelet mean volume [Entitic volume] in Blood by Automated count 12.2 fL 7.4 - 10.4 H [facility] Neutrophils/100 leukocytes in Blood by Automated count 77.3 % 37. 0 - 80.0 [facility] Lymphocytes/100 leukocytes in Blood by Manual count 11.3 % 25.0 - 40.0 L [facility] Monocytes/100 leukocytes in Blood by Automated count 8.9 % 3.0 - 8.0 H [facility] Eosinophils/100 leukocytes in Blood by Automated count 2.1 % 0.0 - 7.0 [facility] Basophils/100 leukocytes in Blood by Automated count 0.2 % 0.0 - 2.5 [facility] %IG 0.2 % 0.0 - 0.[address] [facility] %NRBC 0.0 % 0.0 - 0.0 [facility] al Neutrophils [#/volume] in Blood by Automated count 10.19 10^3/uL 2. 00 - 6.90 H [facility] Lymphocytes [#/volume] in Blood by Automated count 1.49 10^3/uL 0.60 - 3.40 [facility] Monocytes [#/volume] in Blood by Automated count 1.18 10^3/uL 0.00 - 0.90 H [facility] Eosinophils [#/volume] in Blood by Automated count 0.28 10^3/uL 0.00 - 0.70 [facility] Basophils [#/volume] in Blood by Automated count 0.03 10^3/uL 0.00 - 0.20 [facility] #IG 0.03 10^3/uL 0.00 - 0.10 [facility] ospital #NRBC 0.00 10^3/uL 0.00 - 0.00 [facility] ospital MANUAL DIFF SEE BELOW [facility] ital Segmented neutrophils/100 leukocytes in Blood by Manual count 85 % 37 - 80 H [facility] %LYMPH 9 % 25 - 40 L [facility] %MONO 5 % 3 - 8 [facility] %EOS 1 % 0 - 7 [facility] RBC MORPH SEE BELOW [facility] Anisocytosis [Presence] in Blood by Light microscopy 1+ MARITA L: NONE SEEN A [facility] Poikilocytosis [Presence] in Blood by Light microscopy 1+ NOR MAL: NONE SEEN A [facility] { SICKLE CELL (NORMAL: NONE SEEN ) Candi cells [Presence] in Blood by Light microscopy 1+ NORMAL: NONE SEEN A [facility] Acanthocytes [Presence] in Blood by Light microscopy 1+ MARITA L: NONE SEEN A [facility] Platelet adequacy [Presence] in Blood by Light microscopy NORMAL NORMAL: NORMAL [facility] COMMENT: ID Date Data Source [id number] 05/14/2020 07:47:00 AM EST [facility] Name Value Range Interpretation Code Description Data Vivian rce(s) Supporting Document(s) COMPREHENSIVE METABOLIC PANEL [facility] COMPREHENSIVE METABOLIC PANEL Sodium [Moles/volume] in Serum or Plasma 144 mEq/L 134 - 153 [facility] Potassium [Moles/volume] in Serum or Plasma 3.7 mEq/L 3.6 - 5.0 [facility] Chloride [Moles/volume] in Serum or Plasma 101 mEq/L 98 - 107 [facility] Carbon dioxide, total [Moles/volume] in Serum or Plasma 33 MEQ/L 22 - 30 H [facility] Glucose [Mass/volume] in Serum or Plasma 129 MG/DL 65 - 110 H [facility] BUN 46 MG/DL 7 - 21 H [facility] al Creatinine [Mass/volume] in Serum or Plasma 1.5 MG/DL 0.7 - 1.5 [facility] BUN/CREAT 31 8 - 27 H [facility] Protein [Mass/volume] in Serum or Plasma 5.5 G/DL 6.3 - 8.2 L [facility] Albumin [Mass/volume] in Serum or Plasma 3.5 G/DL 3.9 - 5.0 L [facility] Globulin [Mass/volume] in Serum by calculation 2.0 GM/DL 2.4 - 3.2 L [facility] A/G RATIO 1.8 0.8 - 2.0 [facility] Calcium [Mass/volume] in Serum or Plasma 9.0 MG/DL 8.4 - 10.2 [facility] Bilirubin.total [Mass/volume] in Serum or Plasma 1.7 MG/DL 0.2 - 1.3 H [facility] Alkaline phosphatase [Enzymatic activity/volume] in Serum or Plasma 197 U/L 38 - 126 H [facility] Aspartate aminotransferase [Enzymatic activity/volume] in Serum or Plasma 30 U/L 5 - 40 [facility] Alanine aminotransferase [Enzymatic activity/volume] in Seru m or Plasma 14 U/L 7 - 56 [facility] Anion gap 3 in Serum or Plasma 10.0 mmol/L 8.0 - 16.0 [facility] AGE [address] [facility] NON-AA GFR 36 mL/min [facility] AFR AMER GFR >60 [facility] Male GFR In terprentation 20-49 [...] >32 mL/min Normal ID Date Data Source [id number] 05/14/2020 07:06:00 AM [facility] Name Value Range Interpretation Code Description Data Vivian rce(s) Supporting Document(s) Prothrombin time (PT) 22.0 SECONDS 11.0 - 15.5 [facility] INR in Platelet poor plasma by Coagulation assay 1.82 0.93 - 1. 23 H [facility] \\BLDo\\INR INTERPRETATION\\BLDx\\ Therapeutic range for Coumadin and related oral anticoagulants. - International Normalized Ratio (INR): 2.0 - 3.0 for Venous Thrombosis, Pulmonary Embolus, Tissue heart valves, Acute CA, Atrial Fibrillation, Valvular heart disease and recurrent Systemic Embolism. -International Normalized Ratio (INR): 2.5 - 3.5 for Mechanical Prosthetic valve. ID Date Data Source [id number] 05/12/2020 11:48:00 [place] [address] PROGRESS NOTENAME: ANNA Medina ROOM#: 108-1DATE OF : 1940 MR#: [id number] DATE: 05/09/20 OF SERVICE: 05/12/20SUBJECTIVE: She was [...] 05/12/20 18:59DT: JAMEE 05/12/20 23:37DS: Joselin Leon, SENIOR FUNCTIONAL ANALYST 05/13/20 19:07 1 Name Value Range Interpretation Code Description Data Vivian rce(s) Supporting Document(s) ID Date Data Source [id number] 05/10/2020 09:33:00 [place] [address] PROGRESS NOTENAME: ANNA Medina ROOM#: 108-1DATE OF : 1940 MR#: [id number] DATE: 05/09/20 OF SERVICE: 05/10/20SUBJECTIVE: She was [...] them. Blood pressure is 116/58. Pulse 60. [id number]. Temperature 97.8. O2 saturation is 96% on [...] as needed.DD: MARTHA Tobar 05/10/20 20:18 [address] [place] [address] PROGRESS NOTENAME: ANNA Medina ROOM#: 108-1DATE OF : 1940 MR#: [id number] DATE: 05/09/20 : JAMEE 05/10/20 21:22DS: MARTHA Tobar 05/13/20 19:07 2 Name Value Range Interpretation Code Description Data Vivian rce(s) Supporting Document(s) ID Date Data Source [id number] 05/09/2020 11:55:[address] [place] [address] PROGRESS NOTENAME: ANNA Medina ROOM#: 108-1DATE OF : 1940 MR#: [id number] DATE: 05/06/20 OF SERVICE: 05/09/20SUBJECTIVE: She was [...] rce(s) Supporting Document(s) ID Date Data Source [id number] 05/08/2020 11:55:00 [place] [address] PROGRESS NOTENAME: ANNA Medina ROOM#: 108-1DATE OF : 1940 MR#: [id number] DATE: 05/06/20 OF SERVICE: 05/08/20SUBJECTIVE: She is [...] rce(s) Supporting Document(s) ID Date Data Source [id number] 05/06/2020 12:07:00 [place] [address] HISTORY AND PHYSICALNAME: ANNA Medina ROOM#: 108-1DATE OF : 1940 MR#: [id number] PHYS: Bolivar Sotomayor MD, PC DATE: 05/06/20CHIEF [...] [facility] [address] [place] [address] HISTORY AND PHYSICALNAME: ANNA Medina ROOM#: 108-1DATE OF : 1940 MR#: [id number] PHYS: Bolivar Sotomayor MD, PC DATE: 05/06/20PAST [...] goiter. Carotids 2+ without bruit. 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 Patient had a recent cardiac [...] rce(s) Supporting Document(s) ID Date Data Source [id number] 05/12/2020 06:28:00 PM EST [facility] (Bolivar Sotomayor [...] (Bolivar Sotomayor MD) ID Date Data Source [id number] 05/12/2020 06:28:00 PM EST [facility] (Bolivar Sotomayor [...] (Bolivar Sotomayor MD) ID Date Data Source [id number] 05/12/2020 06:28:00 PM EST [facility] (Bolivar Sotomayor [...] for Troponin T. ID Date Data Source [id number] 05/12/2020 06:28:00 PM EST [facility] (Bolivar Sotomayor [...] finding (navigational concept) Laboratory test result [facility] (Bolviar Sotomayor MD) ID Date Data Source [id number] 05/12/2020 06:28:00 PM EST [facility] (Bolivar Sotomayor MD) Name Value Range Interpretation Code Description Data Vivian rce(s) Supporting Document(s) Ammonia [Moles/volume] in Serum 74.0 ug/dL 18.7-86.9 [facility] (Bolivar Sotomayor MD) ID Date Data Source [id number] 05/12/2020 06:28:00 PM EST [facility] (Bolivar Sotomayor [...] Thrombosis, Pulmonary Embolus, Tissue heart valves, Acute CA, Atrial Fibrillation, Valvular heart disease and recurrent Systemic Embolism. -International Normalized Ratio (INR): 2 .5 - 3.5 for Mechanical Prosthetic valve. ID Date Data Source [id number] 05/12/2020 07:37:00 PM [facility] Value Range Interpretation Code Description Data Vivian rce(s) Supporting Document(s) BNP 6888 PG/ML 0 - 450 H [facility] ID Date Data Source [id number] 05/12/2020 07:32:00 PM [facility] Value Range Interpretation Code Description Data Vivian rce(s) Supporting Document(s) Thyroxine (T4) free index in Serum or Plasma by calculation 1.28 NG/DL 0.93 - 1.70 [facility] ID Date Data Source [id number] 05/12/2020 07:32:00 PM [facility] Value Range Interpretation Code Description Data Vivian rce(s) Supporting Document(s) Thyrotropin [Units/volume] in Serum or Plasma by Detec tion limit <= 0.05 mIU/L 4.47 uIU/mL 0.47 - 5.01 [facility] ID Date Data Source [id number] 05/12/2020 07:23:00 PM [facility] Value Range Interpretation Code Description Data Vivian rce(s) Supporting Document(s) Creatine kinase [Enzymatic activity/volume] in Serum or Plasma 2 16 U/L 30 - 170 H [facility] ID Date Data Source [id number] 05/12/2020 07:23:00 PM [facility] Value Range Interpretation Code Description Data Vivian rce(s) Supporting Document(s) C reactive protein [Mass/volume] in Serum or Plasma by High sensitivity method 7.31 MG/L 1.00 - 3.00 H [facility]/S HS-CRP CUT-OFF: RELATIVE RISK: <1.0 mg/L Low 1.0 - 3.0 mg/L Average >3.0 mg/L High Optimally, the average of HS-CRP results repeated two weeks apart should be used for risk assessment. ID Date Data Source [id number] 05/12/2020 07:23:00 PM EST [facility] Name Value Range Interpretation Code Description Data Vivian rce(s) Supporting Document(s) COMPREHENSIVE METABOLIC PANEL [facility] COMPREHENSIVE METABOLIC PANEL Sodium [Moles/volume] in Serum or Plasma 137 mEq/L 134 - 153 [facility] Potassium [Moles/volume] in Serum or Plasma 3.8 mEq/L 3.6 - 5.0 [facility] Chloride [Moles/volume] in Serum or Plasma 92 mEq/L 98 - 107 L [facility] Carbon dioxide, total [Moles/volume] in Serum or Plasma 29 MEQ/L 22 - 30 [facility] Glucose [Mass/volume] in Serum or Plasma 274 MG/DL 65 - 110 H [facility] BUN 45 MG/DL 7 - 21 H [facility] Creatinine [Mass/volume] in Serum or Plasma 1.2 MG/DL 0.7 - 1.5 [facility] BUN/CREAT 38 8 - 27 H [facility] Protein [Mass/volume] in Serum or Plasma 5.9 G/DL 6.3 - 8.2 L [facility] Albumin [Mass/volume] in Serum or Plasma 3.9 G/DL 3.9 - 5.0 [facility] Globulin [Mass/volume] in Serum by calculation 2.0 GM/DL 2.4 - 3.2 L [facility] A/G RATIO 2.0 0.8 - 2.0 [facility] Calcium [Mass/volume] in Serum or Plasma 9.0 MG/DL 8.4 - 10.2 [facility] Bilirubin.total [Mass/volume] in Serum or Plasma 2.5 MG/DL 0.2 - 1.3 H [facility] Alkaline phosphatase [Enzymatic activity/volume] in Serum or Plasma 214 U/L 38 - 126 H [facility] Aspartate aminotransferase [Enzymatic activity/volume] in Serum or Plasma 30 U/L 5 - 40 [facility] Alanine aminotransferase [Enzymatic activity/volume] in Seru m or Plasma 14 U/L 7 - 56 [facility] Anion gap 3 in Serum or Plasma 16.0 mmol/L 8.0 - 16.0 [facility] AGE 80 yrs [facility] NON-AA GFR 46 mL/min [facility] AFR AMER GFR >60 [facility] Male GFR In terprentation 20-49 [...] >32 mL/min Normal ID Date Data Source [id number] 05/12/2020 07:21:00 PM [facility] Name Value Range Interpretation Code Description Data Vivian rce(s) Supporting Document(s) Magnesium [Mass/volume] in Serum or Plasma 2.1 MG/DL 1.7 - 2.2 [facility] ID Date Data Source [id number] 05/12/2020 07:20:00 PM [facility] Name Value Range Interpretation Code Description Data Vivian rce(s) Supporting Document(s) TROPONIN T <0.01 NG/ML 0.00 - 0.10 [facility] TROPONIN T0.1 ng/ml Recommended as the c linical threshold value forTroponin T. ID Date Data Source [id number] 05/12/2020 07:09:00 PM [facility] Name Value Range Interpretation Code Description Data Vivian rce(s) Supporting Document(s) CBC W/AUTOMATED DIFF [facility] COMPLETE BLOOD COUNT Leukocytes [#/volume] in Blood by Automated count 9.4 10^3/uL 4.2 - 1 1.0 [facility] Erythrocytes [#/volume] in Blood by Automated count 4.93 10^6/uL 4. 20 - 5.40 [facility] Hemoglobin [Mass/volume] in Blood 15.3 g/dL 12.0 - 16.0 [facility] Hematocrit [Volume Fraction] of Blood by Automated count 45.5 % 3 7.0 - 47.0 [facility] Erythrocyte mean corpuscular volume [Entitic volume] by Auto mated count 92.3 fL 81.0 - 101 [facility] Erythrocyte mean corpuscular hemoglobin [Entitic mass] by Automated count 31.0 pg 27.0 - 34.0 [facility] Erythrocyte mean corpuscular hemoglobin concentration [Mass/volume] by Automated count 33.6 g/dL 31.0 - 36.0 [facility] Erythrocyte distribution width [Ratio] by Automated count 16.5 % 11.5 - 14.5 H [facility] Platelets [#/volume] in Blood by Automated count 205 10^3/uL 150 - 45 0 [facility] Platelet mean volume [Entitic volume] in Blood by Automated count 12.0 fL 7.4 - 10.4 H [facility] Neutrophils/100 leukocytes in Blood by Automated count 73.4 % 37. 0 - 80.0 [facility] Lymphocytes/100 leukocytes in Blood by Manual count 15.7 % 25.0 - 40.0 L [facility] Monocytes/100 leukocytes in Blood by Automated count 9.9 % 3.0 - 8.0 H [facility] Eosinophils/100 leukocytes in Blood by Automated count 0.2 % 0.0 - 7.0 [facility] Basophils/100 leukocytes in Blood by Automated count 0.3 % 0.0 - 2.5 [facility] %IG 0.5 % 0.0 - 0.0 H [facility] al %NRBC 0.0 % 0.0 - 0.0 [facility] al Neutrophils [#/volume] in Blood by Automated count 6.85 10^3/uL 2.00 - 6.90 [facility] Lymphocytes [#/volume] in Blood by Automated count 1.47 10^3/uL 0.60 - 3.40 [facility] Monocytes [#/volume] in Blood by Automated count 0.93 10^3/uL 0.00 - 0.90 H [facility] Eosinophils [#/volume] in Blood by Automated count 0.02 10^3/uL 0.00 - 0.70 [facility] Basophils [#/volume] in Blood by Automated count 0.03 10^3/uL 0.00 - 0.20 [facility] #IG 0.05 10^3/uL 0.00 - 0.10 [facility] #NRBC 0.00 10^3/uL 0.00 - 0.00 [facility] MANUAL DIFF NOT INDICATED [facility] RBC MORPH NOT INDICATED [facility] spital ID Date Data Source [id number] 05/12/2020 07:11:00 PM [facility] Name Value Range Interpretation Code Description Data Vivian rce(s) Supporting Document(s) Ammonia [Mass/volume] in Plasma 74.0 UG/DL 18.7 - 86.9 [facility] ID Date Data Source [id number] 05/12/2020 07:09:00 PM [facility] Name Value Range Interpretation Code Description Data Vivian rce(s) Supporting Document(s) Prothrombin time (PT) 21.5 SECONDS 11.0 - 15.5 H [facility] INR in Platelet poor plasma by Coagulation assay 1.77 0.93 - 1. 23 H [facility] \\BLDo\\INR INTERPRETATION\\BLDx\\ Therapeutic range for Coumadin and related oral anticoagulants. - International Normalized Ratio (INR): 2.0 - 3.0 for Venous Thrombosis, Pulmonary Embolus, Tissue heart valves, Acute CA, Atrial Fibrillation, Valvular heart disease and recurrent Systemic Embolism. -International Normalized Ratio (INR): 2.5 - 3.5 for Mechanical Prosthetic valve. ID Date Data Source [id number] 05/11/2020 09:25:00 AM [facility] [address] [place] [address] PHONE: [phone] FAX: [phone] Name .................. : ANNA Medina Acct Number.................. : [id number] ROOM. ................. : 108-1 Number ................... : [id number] Stay type ............. : I/P Discharge Date......... ... : Admit Date ......... : 05/09/20 Admit Phys .................... : MANUEL ALIZE Date of ....... : 1940 Family Phys ................... : NAUN MTZ Phone .................. : [phone] Age ................................ : 80 Film# .................. .:[id number] Sex ................................. : F Unsigned transcriptions are preliminary reports and do not represent a medical or legal document CHEST 2 VIEWS [id number] COMPLETE:05/10/20 88:88 1326 (REASON FOR CHEST: SHORTNESS [...] 05/10/20 08:36, Dictation Date: Copy for: 002 [facility] Copy for: 710 [facility] REC Page 1 of 1 Name Value Range Interpretation Code Description Data Vivian rce(s) Supporting Document(s) ID Date Data Source [id number] 05/11/2020 08:55:00 [place] [address] PHONE: [phone] FAX: [phone] Name .................. : ANNA Medina Acct Number.................. : [id number] ROOM. ................. : [facility] Number ................... : [id number] Stay type ............. : O/P Discharge Date......... ... : Admit Date ......... : 05/06/20 Admit Phys .................... : MANUEL ALIZE Date of ....... : 1940 Family Phys ................... : NAUN MTZ Phone .................. : [phone] Age ................................ : 80 Film# .................. .:[id number] Sex ................................. : F Unsigned transcriptions are preliminary reports and do not represent a medical or legal document CT THORAX W/O CONTRAST [id number] COMPLETE:05/07/20 11:20 JEFFREY 1201 (REASON FOR CHEST: [...] dose 629.4 mGycm. Page 1 of [address] [place] [address] PHONE: [phone] FAX: [phone] Name .................. : ANAN Medina Acct Number.................. : [id number] ROOM. ................. : 108-1 MR Number ................... : [id number] Stay type ............. : O/P Discharge Date......... ... : Admit Date ......... : 05/06/20 Admit Phys .................... : MANUEL MIR Date of ....... : 1940 Family Phys ................... : NAUN MTZ Phone .................. : [phone] Age ................................ : 80 Film# .................. .:[id number] Sex ................................. : F Unsigned transcriptions are preliminary reports and do not represent a medical or legal document CT THORAX W/O CONTRAST [id number] COMPLETE:05/07/20 11:20 JEFFREY 1201 (REASON FOR CHEST: CHF Electronically Reviewed and Signed By Philipp Davis MD , 05/11/20 08:55, MRA Transcribe Initials: SSR, Transcribe Date: 05/07/20 13:09, Dictation Date: Copy for: 002 [facility] Copy for: 710 [facility] REC Page 2 of 2 Name Value Range Interpretation Code Description Data Vivian rce(s) Supporting Document(s) ID Date Data Source [id number] 05/10/2020 01:30:00 PM EST [facility] (Bolivar Sotomayor [...] Void~NURSE COLLECTED? N ID Date Data Source [id number] 05/10/2020 02:12:00 PM EST [facility] Name Value Range Interpretation Code Description Data Vivian rce(s) Supporting Document(s) URINALYSIS [facility] URINALYSIS SOURCE Clean Catch [facility] ital COLOR yellow NORMAL: Yellow [facility] CLARITY clear NORMAL: Clear [facility] Specific gravity of Urine by Test strip 1.010 1.001 - 1.030 [facility] pH 8 5 - 9 [facility] Glucose [Mass/volume] in Urine by Test strip NORM NORMAL: Negat [facility] Bilirubin.total [Presence] in Urine by Test strip NEG NORMAL: Negative [facility] Ketones [Presence] in Urine by Test strip NEG NORMAL: Negative [facility] Protein [Mass/volume] in Urine by Test strip NEG NORMAL: Negat [facility] Nitrite [Presence] in Urine by Test strip NEG NORMAL: Negative [facility] BLOOD NEG NORMAL: Negative [facility] Leukocyte esterase [Presence] in Urine by Test strip NEG MARITA L: Negative [facility] Urobilinogen [Mass/volume] in Urine by Test strip NOR less silvino n 1.0 mg/dL [facility] MICROSCOPIC Not Indicate [facility] ID Date Data Source [id number] 05/10/2020 01:20:00 PM EST [facility] (Bolivar Sotomayor MD) Name Value Range Interpretation Code Description Data Vivian rce(s) Supporting Document(s) Bacteria identified in Urine by Culture Laboratory test result [facility] (Bolivar Sotomayor MD) {SPECIMEN TYPE: CATH URINE ID Date Data Source [id number] 05/14/2020 04:11:00 PM EST [facility] Name Value Range Interpretation Code Description Data Vivian rce(s) Supporting Document(s) CULTURE URINE [facility] _CULTURE URINE_$$[id number]$$910067$$678810$$173420$$101657$$835423$$643691$$280555$$076964$$ 970988$$808278$$930980$$624690$$554848$$062821$$968477$$618373$$287074$$694928$$ 585421$$738312$$672004$$576056$$972159$$594134$$741478$$324361 -- Continued on next page --Patient: ANNA ALLEN E Order: [id number] Page 2Culture: CULTURE URINE Status: Final ==== -- Continued on next page --Patient: ANNA ALLEN E Order: [id number] Page 2Culture: CULTURE URINE Status: Prelim =====$$[id number]$$[id number] DATE/TIME: 05/14/2020 14:06Culture: CULTURE URINE Status: FinalIsolate [...] on 05/12/2020 23:36 ET Escherichia coliUrine Culture,Comprehensive: B4Dkjejqqqipp coli Flag: APatient: ANNA Medina Order: [id number] Page 3Culture: CULTURE URINE Status: Final ISOLATE [...] S S . . . . . .22578-9Ycpklgtdvk S S . . . . . .267-5Imipenem S S . . . . . .279-0Levofloxacin S S . . . . . .22130-1Aykgptuja S S . . . . . .6652-2Nitrofurantoin S S . . . . . .363-2Piperacillin/Tazobactam S S . . . . . .412-7Tetracycline S S . . . . . .496-0Tobramycin S S . . . . . .508-2Trimethoprim/Sulfa S S . . . . . .516-5P1 Test performed by: [facility] #: [id number] [address] [place] [address] Avenue [id number] [facility] [id number] Director : Sae Pena MD NPI #:Door Closer : 05/13/20.0713.XMT.SENT REF 05/14/20.1611.XMT.SENT REF 05/14/20. .[facility] ID Date Data Source [id number] 05/10/2020 06:19:00 AM EST [facility] (Bolivar Sotomayor [...] >32 mL/min Normal ID Date Data Source [id number] 05/10/2020 06:19:00 AM EST [facility] (Bolivar Sotomayor [...] (Bolivar Sotomayor MD) ID Date Data Source [id number] 05/10/2020 06:19:00 AM EST [facility] (Bolivar Sotomayor MD) Name Value Range Interpretation Code Description Data Vivian rce(s) Supporting Document(s) Laboratory test finding (navigational concept) 19.6 s 1 1.0-15.5 Above high normal [facility] (Bolivar Sotomayor MD) Laboratory test finding ([facility]) 1.58 0 .93-1.23 Above high normal [facility] (Bolivar Sotomayor MD) \\BLDo\\INR INTERPRETATION\\BLDx\\ Therapeutic range for Coumadin and related oral anticoagulants. -International Normalized Ratio (INR): 2 .0 - 3.0 for Venous Thrombosis, Pulmonary Embolus, Tissue heart valves, Acute CA, Atrial Fibrillation, Valvular heart disease and recurrent Systemic Embolism. -International Normalized Ratio (INR): 2 .5 - 3.5 for Mechanical Prosthetic valve. ID Date Data Source [id number] 05/10/2020 07:38:00 AM EST [facility] Name Value Range Interpretation Code Description Data Vivian rce(s) Supporting Document(s) COMPREHENSIVE METABOLIC PANEL [facility] COMPREHENSIVE METABOLIC PANEL Sodium [Moles/volume] in Serum or Plasma 138 mEq/L 134 - 153 [facility] Potassium [Moles/volume] in Serum or Plasma 3.8 mEq/L 3.6 - 5.0 [facility] Chloride [Moles/volume] in Serum or Plasma 93 mEq/L 98 - 107 L [facility] Carbon dioxide, total [Moles/volume] in Serum or Plasma 38 MEQ/L 22 - 30 H [facility] Glucose [Mass/volume] in Serum or Plasma 168 MG/DL 65 - 110 H [facility] BUN 34 MG/DL 7 - [address] [facility] Creatinine [Mass/volume] in Serum or Plasma 1.1 MG/DL 0.7 - 1.5 [facility] BUN/CREAT 31 8 - [address] [facility] Protein [Mass/volume] in Serum or Plasma 5.8 G/DL 6.3 - 8.2 L [facility] Albumin [Mass/volume] in Serum or Plasma 3.8 G/DL 3.9 - 5.0 L [facility] Globulin [Mass/volume] in Serum by calculation 2.0 GM/DL 2.4 - 3.2 L [facility] A/G RATIO 1.9 0.8 - 2.0 [facility] al Calcium [Mass/volume] in Serum or Plasma 9.2 MG/DL 8.4 - 10.2 [facility] Bilirubin.total [Mass/volume] in Serum or Plasma 1.2 MG/DL 0.2 - 1.3 [facility] Alkaline phosphatase [Enzymatic activity/volume] in Serum or Plasma 224 U/L 38 - 126 H [facility] Aspartate aminotransferase [Enzymatic activity/volume] in Serum or Plasma 16 U/L 5 - 40 [facility] Alanine aminotransferase [Enzymatic activity/volume] in Seru m or Plasma 10 U/L 7 - 56 [facility] Anion gap 3 in Serum or Plasma 7.0 mmol/L 8.0 - 16.0 L [facility] AGE 80 yrs [facility] NON-AA GFR 51 mL/min [facility] AFR AMER GFR >60 [facility] Male GFR In terprentation 20-49 [...] >32 mL/min Normal ID Date Data Source [id number] 05/10/2020 07:25:00 AM EST [facility] Name Value Range Interpretation Code Description Data Vivian rce(s) Supporting Document(s) CBC W/AUTOMATED DIFF [facility] COMPLETE BLOOD COUNT Leukocytes [#/volume] in Blood by Automated count 13.1 10^3/uL 4.2 - 11.0 H [facility] Erythrocytes [#/volume] in Blood by Automated count 4.51 10^6/uL 4. 20 - 5.40 [facility] Hemoglobin [Mass/volume] in Blood 13.8 g/dL 12.0 - 16.0 [facility] Hematocrit [Volume Fraction] of Blood by Automated count 41.0 % 3 7.0 - 47.0 [facility] Erythrocyte mean corpuscular volume [Entitic volume] by Auto mated count 90.9 fL 81.0 - 101 [facility] Erythrocyte mean corpuscular hemoglobin [Entitic mass] by Automated count 30.6 pg 27.0 - 34.0 [facility] Erythrocyte mean corpuscular hemoglobin concentration [Mass/volume] by Automated count 33.7 g/dL 31.0 - 36.0 [facility] Erythrocyte distribution width [Ratio] by Automated count 16.0 % 11.5 - 14.5 H [facility] Platelets [#/volume] in Blood by Automated count 183 10^3/uL 150 - 45 0 [facility] Platelet mean volume [Entitic volume] in Blood by Automated count 11.9 fL 7.4 - 10.4 H [facility] Neutrophils/100 leukocytes in Blood by Automated count 84.9 % 37. 0 - 80.0 H [facility] Lymphocytes/100 leukocytes in Blood by Manual count 7.8 % 25.0 - 40.0 L [facility] Monocytes/100 leukocytes in Blood by Automated count 6.6 % 3.0 - 8.0 [facility] Eosinophils/100 leukocytes in Blood by Automated count 0.1 % 0.0 - 7.0 [facility] Basophils/100 leukocytes in Blood by Automated count 0.1 % 0.0 - 2.5 [facility] %IG 0.5 % 0.0 - 0.[address] %NRBC 0.0 % 0.0 - 0.0 [facility] al Neutrophils [#/volume] in Blood by Automated count 11.15 10^3/uL 2. 00 - 6.90 H [facility] Lymphocytes [#/volume] in Blood by Automated count 1.03 10^3/uL 0.60 - 3.40 [facility] Monocytes [#/volume] in Blood by Automated count 0.87 10^3/uL 0.00 - 0.90 [facility] Eosinophils [#/volume] in Blood by Automated count 0.01 10^3/uL 0.00 - 0.70 [facility] Basophils [#/volume] in Blood by Automated count 0.01 10^3/uL 0.00 - 0.20 [facility] #IG 0.06 10^3/uL 0.00 - 0.10 [facility] ospital #NRBC 0.00 10^3/uL 0.00 - 0.00 [facility] MANUAL DIFF NOT INDICATED [facility] RBC MORPH NOT INDICATED [facility] spital ID Date Data Source [id number] 05/10/2020 07:24:00 AM [facility] Name Value Range Interpretation Code Description Data Vivian rce(s) Supporting Document(s) Prothrombin time (PT) 19.6 SECONDS 11.0 - 15.5 H [facility] INR in Platelet poor plasma by Coagulation assay 1.58 0.93 - 1. 23 H [facility] \\BLDo\\INR INTERPRETATION\\BLDx\\ Therapeutic range for Coumadin and related oral anticoagulants. - International Normalized Ratio (INR): 2.0 - 3.0 for Venous Thrombosis, Pulmonary Embolus, Tissue heart valves, Acute CA, Atrial Fibrillation, Valvular heart disease and recurrent Systemic Embolism. -International Normalized Ratio (INR): 2.5 - 3.5 for Mechanical Prosthetic valve. ID Date Data Source [id number] 05/10/2020 12:08:00 [place] [address] ---------NAME--------- NUMBER SEX AGE ADMIT DISC. XRAY# F/C TYPE ANNA Medina [id number] F 80 05/06/20 [id number] MB4 O/P DATE OF : 1940 M/R# [id number] #: [id number] 108-1 LOCATION: EMERGENCY DEPT TRANSCRIBED: 05/10/[address] HEAD W/O CONTRAST [id number] COMPLETED:05/09/20 22:51 KJE 1328 {REASON FOR PROCEDURE :ALTERED MENTAL STATUS PHYSICIAN: MANUEL LEON ======== R A D I O L O G Y R E P O R T PATIENT HISTORY:ALTERED MENTAL STATUS ACC DLP- 759.1mGy*cmPT HX OF HYSTERECTOMY. VERIFIED 2 IDENTIFIERS. Exam has been sent to [facility] - If further informationis needed, the number is . Report will be faxed to ED and/or Xray.KJE / BRAIN (DICOM Hx)EXAM: CT Head Without IV contrast.CLINICAL HISTORY:ALTERED MENTAL STATUS ACC DLP- 759.1mGy*cm PT HX OFHYSTERECTOMY. VERIFIED 2 IDENTIFIERS. Exam has been sent to [facility] - If further information is needed, [...] rce(s) Supporting Document(s) ID Date Data Source [id number] 05/09/2020 11:34:00 AM EST [facility] (Bolivar Sotomayor [...] N~STAT READ PLEASE ID Date Data Source [id number] 05/09/2020 12:12:00 PM [facility] Name Value Range Interpretation Code Description Data Vivian rce(s) Supporting Document(s) Glucose [Mass/volume] in Serum or Plasma 517 MG/DL 65 - 110 [facility] CALL/ READ BACK CARLY DOLAN RN [facility] BY: L[facility]Y [facility]/TIME 05.09.201210 [facility] ital ID Date Data Source [id number] 05/09/2020 06:28:00 AM EST [facility] (Bolivar Sotomayor [...] Thrombosis, Pulmonary Embolus, Tissue heart valves, Acute CA Atrial Fibrillation, Valvular heart disease and recurrent Systemic Embolism. -International Normalized Ratio (INR): 2 .5 - 3.5 for Mechanical Prosthetic valve. ID Date Data Source [id number] 05/09/2020 06:28:00 AM EST [facility] (Bolivar Sotomayor [...] NONE SEEN ) ID Date Data Source [id number] 05/09/2020 06:28:00 AM EST [facility] (Bolivar Sotomayor [...] >32 mL/min Normal ID Date Data Source [id number] 05/09/2020 08:11:00 AM EST [facility] Name Value Range Interpretation Code Description Data Vivian rce(s) Supporting Document(s) CBC W/AUTOMATED DIFF [facility] COMPLETE BLOOD COUNT Leukocytes [#/volume] in Blood by Automated count 8.3 10^3/uL 4.2 - 1 1.0 [facility] Erythrocytes [#/volume] in Blood by Automated count 4.52 10^6/uL 4. 20 - 5.40 [facility] Hemoglobin [Mass/volume] in Blood 13.8 g/dL 12.0 - 16.0 [facility] Hematocrit [Volume Fraction] of Blood by Automated count 41.6 % 3 7.0 - 47.0 [facility] Erythrocyte mean corpuscular volume [Entitic volume] by Auto mated count 92.0 fL 81.0 - 101 [facility] Erythrocyte mean corpuscular hemoglobin [Entitic mass] by Automated count 30.5 pg 27.0 - 34.0 [facility] Erythrocyte mean corpuscular hemoglobin concentration [Mass/volume] by Automated count 33.2 g/dL 31.0 - 36.0 [facility] Erythrocyte distribution width [Ratio] by Automated count 16.1 % 11.5 - 14.5 H [facility] Platelets [#/volume] in Blood by Automated count 173 10^3/uL 150 - 45 0 [facility] Platelet mean volume [Entitic volume] in Blood by Automated count 12.7 fL 7.4 - 10.4 H [facility] Neutrophils/100 leukocytes in Blood by Automated count 84.4 % 37. 0 - 80.0 H [facility] Lymphocytes/100 leukocytes in Blood by Manual count 11.0 % 25.0 - 40.0 L [facility] Monocytes/100 leukocytes in Blood by Automated count 2.0 % 3.0 - 8.0 L [facility] Eosinophils/100 leukocytes in Blood by Automated count 2.3 % 0.0 - 7.0 [facility] Basophils/100 leukocytes in Blood by Automated count 0.1 % 0.0 - 2.5 [facility] %IG 0.2 % 0.0 - 0.0 H [facility] %NRBC 0.0 % 0.0 - 0.0 [facility] al Neutrophils [#/volume] in Blood by Automated count 7.01 10^3/uL 2.00 - 6.90 H [facility] Lymphocytes [#/volume] in Blood by Automated count 0.91 10^3/uL 0.60 - 3.40 [facility] Monocytes [#/volume] in Blood by Automated count 0.17 10^3/uL 0.00 - 0.90 [facility] Eosinophils [#/volume] in Blood by Automated count 0.19 10^3/uL 0.00 - 0.70 [facility] Basophils [#/volume] in Blood by Automated count 0.01 10^3/uL 0.00 - 0.20 [facility] #IG 0.02 10^3/uL 0.00 - 0.10 [facility]ital #NRBC 0.00 10^3/uL 0.00 - 0.00 [facility] ospital MANUAL DIFF SEE BELOW [facility] ital Segmented neutrophils/100 leukocytes in Blood by Manual count 82 % 37 - 80 H [facility] %LYMPH 16 % 25 - 40 L [facility] al %MONO 2 % 3 - 8 L [facility] RBC MORPH [facility] BEL[facility] Poikilocytosis [Presence] in Blood by Light microscopy 1+ NOR MAL: NONE SEEN A [facility] { SICKLE CELL (NORMAL: NONE SEEN ) Platelet adequacy [Presence] in Blood by Light microscopy NORMAL NORMAL: NORMAL [facility] COMMENT: ID Date Data Source [id number] 05/09/2020 07:56:00 AM EST [facility] Name Value Range Interpretation Code Description Data Vivian rce(s) Supporting Document(s) COMPREHENSIVE METABOLIC PANEL [facility] COMPREHENSIVE METABOLIC PANEL Sodium [Moles/volume] in Serum or Plasma 137 mEq/L 134 - 153 [facility] Potassium [Moles/volume] in Serum or Plasma 4.1 mEq/L 3.6 - 5.0 [facility] Chloride [Moles/volume] in Serum or Plasma 91 mEq/L 98 - 107 L [facility] Carbon dioxide, total [Moles/volume] in Serum or Plasma 39 MEQ/L 22 - 30 H [facility] Glucose [Mass/volume] in Serum or Plasma 348 MG/DL 65 - 110 H [facility] BUN 28 MG/DL 7 - [address] [facility] Creatinine [Mass/volume] in Serum or Plasma 1.2 MG/DL 0.7 - 1.5 [facility] BUN/CREAT 23 8 - 27 [facility] al Protein [Mass/volume] in Serum or Plasma 5.9 G/DL 6.3 - 8.2 L [facility] Albumin [Mass/volume] in Serum or Plasma 3.9 G/DL 3.9 - 5.0 [facility] Globulin [Mass/volume] in Serum by calculation 2.0 GM/DL 2.4 - 3.2 L [facility] A/G RATIO 2.0 0.8 - 2.0 [facility] Calcium [Mass/volume] in Serum or Plasma 9.0 MG/DL 8.4 - 10.2 [facility] Bilirubin.total [Mass/volume] in Serum or Plasma 1.4 MG/DL 0.2 - 1.3 H [facility] Alkaline phosphatase [Enzymatic activity/volume] in Serum or Plasma 261 U/L 38 - 126 H [facility] Aspartate aminotransferase [Enzymatic activity/volume] in Serum or Plasma 19 U/L 5 - 40 [facility] Alanine aminotransferase [Enzymatic activity/volume] in Seru m or Plasma 12 U/L 7 - 56 [facility] Anion gap 3 in Serum or Plasma 7.0 mmol/L 8.0 - 16.0 L [facility] AGE 80 yrs [facility] al NON-AA GFR 46 mL/min [facility] AFR AMER GFR >60 [facility] Male GFR In terprentation 20-49 [...] >32 mL/min Normal ID Date Data Source [id number] 05/09/2020 07:38:00 AM EST [facility] Name Value Range Interpretation Code Description Data Vivian rce(s) Supporting Document(s) Prothrombin time (PT) 20.1 SECONDS 11.0 - 15.5 H [facility] INR in Platelet poor plasma by Coagulation assay 1.63 0.93 - 1. 23 H [facility] aPTT in Blood by Coagulation assay 40.2 SECONDS 24.8 - 36.7 H [facility] \\BLDo\\INR INTERPRETATION\\BLDx\\ Therapeutic range for Coumadin and related oral anticoagulants. - International Normalized Ratio (INR): 2.0 - 3.0 for Venous Thrombosis, Pulmonary Embolus, Tissue heart valves, Acute CA Atrial Fibrillation, Valvular heart disease and recurrent Systemic Embolism. - International Normalized Ratio (INR): 2.5 - 3.5 for Mechanical Prosthetic valve. ID Date Data Source [id number] 05/08/2020 12:50:00 PM EST [facility] (Bolivar Sotomayor [...] (Bolivar Sotomayor MD) ID Date Data Source [id number] 05/08/2020 01:13:00 PM EST [facility] Name Value Range Interpretation Code Description Data Vivian rce(s) Supporting Document(s) ANCA TEST POSITIVE A [facility] iggy FiO2 2 LPM3 [facility] SITE RADIAL RT [facility] pH of Arterial blood 7.47 7.34 - 7.[address] [facility] Carbon dioxide [Partial pressure] in Blood 51.4 mm/HG 32.0 - 42.0 H [facility] Hospital Oxygen [Partial pressure] in Blood 98.3 mm/HG 75.0 - 100 [facility] Hospital Bicarbonate [Moles/volume] in Blood 36.2 meq/L 20.0 - 24.0 H [facility] Hospital TCO2 37.8 meq/L 21.0 - 25.0 [facility] Base excess in Blood by calculation 10.7 -2.0 - 2.0 H [facility] Hospital O2 SAT 98.2 % 95.0 - 98.0 H [facility] ital ID Date Data Source [id number] 05/08/2020 06:17:00 AM EST [facility] (Bolivar Sotoamyor MD) Name Value Range Interpretation Code Description Data Vivian rce(s) Supporting Document(s) Natriuretic peptide.B prohormone N-Terminal [Mass/volu me] in Serum or Plasma 5359 pg/mL 0-450 Above high normal [facility] (Bolivar Sotomayor MD) Magnesium [Mass/volume] in Serum or Plasma 1.9 mg/dL 1.7-2.2 [facility] (Bolivar Sotomayor MD) ID Date Data Source [id number] 05/08/2020 06:17:00 AM EST [facility] (Bolivar Sotomayor [...] >32 mL/min Normal ID Date Data Source [id number] 05/08/2020 06:17:00 AM EST [facility] (Bolivar Sotomayor [...] Thrombosis, Pulmonary Embolus, Tissue heart valves, Acute CA Atrial Fibrillation, Valvular heart disease and recurrent Systemic Embolism. -International Normalized Ratio (INR): 2 .5 - 3.5 for Mechanical Prosthetic valve. ID Date Data Source [id number] 05/08/2020 06:17:00 AM EST [facility] (Bolivar Sotomayor [...] (Bolivar Sotomayor MD) ID Date Data Source [id number] 05/08/2020 07:21:00 AM EST [facility] Name Value Range Interpretation Code Description Data Vivian rce(s) Supporting Document(s) COMPREHENSIVE METABOLIC PANEL [facility] COMPREHENSIVE METABOLIC PANEL Sodium [Moles/volume] in Serum or Plasma 142 mEq/L 134 - 153 [facility] Potassium [Moles/volume] in Serum or Plasma 3.4 mEq/L 3.6 - 5.0 L [facility] Chloride [Moles/volume] in Serum or Plasma 96 mEq/L 98 - 107 L [facility] Carbon dioxide, total [Moles/volume] in Serum or Plasma 43 MEQ/L 22 - 30 HH [facility] CALL/ READ BACK CARLY JOHNSON RN [facility] BY: L[facility]Y [facility] DATE/TIME 05.08.[address] [facility] Glucose [Mass/volume] in Serum or Plasma 130 MG/DL 65 - 110 H [facility] BUN 21 MG/DL 7 - 21 [facility] al Creatinine [Mass/volume] in Serum or Plasma 1.2 MG/DL 0.7 - 1.5 [facility] BUN/CREAT 18 8 - 27 [facility] al Protein [Mass/volume] in Serum or Plasma 5.5 G/DL 6.3 - 8.2 L [facility] Albumin [Mass/volume] in Serum or Plasma 3.7 G/DL 3.9 - 5.0 L [facility] Globulin [Mass/volume] in Serum by calculation 1.8 GM/DL 2.4 - 3.2 L [facility] A/G RATIO 2.1 0.8 - 2.0 H [facility] Calcium [Mass/volume] in Serum or Plasma 8.8 MG/DL 8.4 - 10.2 [facility] Bilirubin.total [Mass/volume] in Serum or Plasma 1.2 MG/DL 0.2 - 1.3 [facility] Alkaline phosphatase [Enzymatic activity/volume] in Serum or Plasma 238 U/L 38 - 126 H [facility] Aspartate aminotransferase [Enzymatic activity/volume] in Serum or Plasma 20 U/L 5 - 40 [facility] Alanine aminotransferase [Enzymatic activity/volume] in Seru m or Plasma 11 U/L 7 - 56 [facility] Anion gap 3 in Serum or Plasma 3.0 mmol/L 8.0 - 16.0 L [facility] AGE [address] [facility] NON-AA GFR 46 mL/min [facility] AFR AMER GFR >60 [facility] Male GFR In terprentation 20-49 [...] >32 mL/min Normal ID Date Data Source [id number] 05/08/2020 07:17:00 AM [facility] Name Value Range Interpretation Code Description Data Vivian rce(s) Supporting Document(s) Magnesium [Mass/volume] in Serum or Plasma 1.9 MG/DL 1.7 - 2.2 [facility] ID Date Data Source [id number] 05/08/2020 07:14:00 AM [facility] Name Value Range Interpretation Code Description Data Vivian rce(s) Supporting Document(s) BNP 5359 PG/ML 0 - 450 [facility] ID Date Data Source [id number] 05/08/2020 07:04:00 AM [facility] Name Value Range Interpretation Code Description Data Vivian rce(s) Supporting Document(s) CBC W/AUTOMATED DIFF [facility] COMPLETE BLOOD COUNT Leukocytes [#/volume] in Blood by Automated count 6.9 10^3/uL 4.2 - 1 1.0 [facility] Erythrocytes [#/volume] in Blood by Automated count 4.20 10^6/uL 4. 20 - 5.40 [facility] Hemoglobin [Mass/volume] in Blood 12.9 g/dL 12.0 - 16.0 [facility] Hematocrit [Volume Fraction] of Blood by Automated count 39.3 % 3 7.0 - 47.0 [facility] Erythrocyte mean corpuscular volume [Entitic volume] by Auto mated count 93.6 fL 81.0 - 101 [facility] Erythrocyte mean corpuscular hemoglobin [Entitic mass] by Automated count 30.7 pg 27.0 - 34.0 [facility] Erythrocyte mean corpuscular hemoglobin concentration [Mass/volume] by Automated count 32.8 g/dL 31.0 - 36.0 [facility] Erythrocyte distribution width [Ratio] by Automated count 16.5 % 11.5 - 14.5 H [facility] Platelets [#/volume] in Blood by Automated count 155 10^3/uL 150 - 45 0 [facility] Platelet mean volume [Entitic volume] in Blood by Automated count 12.6 fL 7.4 - 10.4 H [facility] Neutrophils/100 leukocytes in Blood by Automated count 69.2 % 37. 0 - 80.0 [facility] Lymphocytes/100 leukocytes in Blood by Manual count 16.9 % 25.0 - 40.0 L [facility] Monocytes/100 leukocytes in Blood by Automated count 10.2 % 3.0 - 8.0 H [facility] Eosinophils/100 leukocytes in Blood by Automated count 3.2 % 0.0 - 7.0 [facility] Basophils/100 leukocytes in Blood by Automated count 0.4 % 0.0 - 2.5 [facility] %IG 0.1 % 0.0 - 0.[address] %NRBC 0.0 % 0.0 - 0.0 [facility] al Neutrophils [#/volume] in Blood by Automated count 4.74 10^3/uL 2.00 - 6.90 [facility] Lymphocytes [#/volume] in Blood by Automated count 1.16 10^3/uL 0.60 - 3.40 [facility] Monocytes [#/volume] in Blood by Automated count 0.70 10^3/uL 0.00 - 0.90 [facility] Eosinophils [#/volume] in Blood by Automated count 0.22 10^3/uL 0.00 - 0.70 [facility] Basophils [#/volume] in Blood by Automated count 0.03 10^3/uL 0.00 - 0.20 [facility] #IG 0.01 10^3/uL 0.00 - 0.10 [facility] H ospital #NRBC 0.00 10^3/uL 0.00 - 0.00 [facility] ospital MANUAL DIFF NOT INDICATED [facility] RBC MORPH NOT INDICATED [facility] spital ID Date Data Source [id number] 05/08/2020 07:03:00 AM [facility] Name Value Range Interpretation Code Description Data Vivian rce(s) Supporting Document(s) Prothrombin time (PT) 23.1 SECONDS 11.0 - 15.5 H [facility] INR in Platelet poor plasma by Coagulation assay 1.94 0.93 - 1. 23 H [facility] aPTT in Blood by Coagulation assay 40.9 SECONDS 24.8 - 36.7 H [facility] \\BLDo\\INR INTERPRETATION\\BLDx\\ Therapeutic range for Coumadin and related oral anticoagulants. - International Normalized Ratio (INR): 2.0 - 3.0 for Venous Thrombosis, Pulmonary Embolus, Tissue heart valves, Acute CA Atrial Fibrillation, Valvular heart disease and recurrent Systemic Embolism. - International Normalized Ratio (INR): 2.5 - 3.5 for Mechanical Prosthetic valve. ID Date Data Source [id number] 05/07/2020 01:28:00 PM [facility] [address] [place] [address] RESPIRATORY CARE REPORT ==== ---------NAME------- NUMBER SEX AGE ADMIT DISC. XRAY# F/C BRENNON Medina [id number] F 80 05/06/20 [id number] [id number] O/P DATE OF : 1940 M/R# [id number] #: [id number] LOCATION: EMERGENCY DEPT EKG 90851 COMP LETE:05/07/20 07:25 EWW [id number] PHYSICIAN: MANUEL LEON Name Value Range Interpretation Code Description Data Vivian rce(s) Supporting Document(s) ID Date Data Source [id number] 05/07/2020 01:27:00 [place] [address] RESPIRATORY CARE REPORT ==== ---------NAME------- NUMBER SEX AGE ADMIT DISC. XRAY# F/C TYPERICLEMENCIA JOY Medina [id number] F 80 05/06/20 [id number] MB4 O/P DATE OF : 1940 M/R# [id number] PH#: [phone] LOCATION: [place] [address] COMP LETE:05/07/20 02:18 T [id number] PHYSICIAN: MANUEL MACIAS Name Value Range Interpretation Code Description Data Vivian rce(s) Supporting Document(s) ID Date Data Source [id number] 05/07/2020 09:31:00 [place] [address] PHONE: [phone] FAX: [phone] Name .................. : ANNA Medina Acct Number.................. : [id number] ROOM. ................. : [id number] Number ................... : [id number] Stay type ............. : O/P Discharge Date......... ... : Admit Date ......... : 05/06/20 Admit Phys .................... : MANUEL HERRMANN Date of ....... : 1940 Family Phys ................... : NAUN MTZ Phone ..... ............. : [phone] Age ................................ : 80 Film# .................. .:[id number] Sex ................................. : F Unsigned t ranscriptions are preliminary reports and do not represent a medical or legal document CHEST PORTABLE [id number] COMPLETE:05/06/20 17:06 [facility] 1159 Reason(s): Chest Pain PORTABLE CHEST X-RAY: [...] Anselmo Bernstein M.D. , 05/07/20 09:31, [facility] Transcribe Initials: MILLY , Transcribe Date: 05/06/20 22:18, Dictation Date: Copy for: NAUN HARTLEY via fax Copy for: EMERGENCY DEPT via mode Copy for: [facility] REC Page 1 of 1 Name Value Range Interpretation Code Description Data Vivian rce(s) Supporting Document(s) ID Date Data Source [id number] 05/06/2020 04:16:00 PM EST [facility] 1 OrderSheet [facility] Emergency Department [address] [place] [address] Phone #: ext- [phone] 05/06/2020 16:15 Patient: JOY DENT Sex: F [...] Jennifer R.N. ;Troponin-T STAT 16:26 05/06/2020 16:53 iGlberto Castañeda Victoria Je nnifer R.NMarifer ;BNP STAT 16:26 05/06/2020 16:53 Gilberto Castañeda Victoria Jennifer R.N. ;PT/INR STAT 16:26 05/06/2020 16:53 Gilberto Castañeda Victoria Jennifer R.N. ;Venous Blood Gas STAT 16:26 05/06/2020 16:53 Gilberto Castañeda Victoria Jennifer R.N. ;COVID-19 CAH STAT 19:35 05/06/2020 19:53 Lesley Elkins(Symptomatic as Amara Macias R.N.Defined by CDC) ;() (FirstTest) (NotHospitalized) (Not) (NotResident inCongregate CareSetting) (NotEmployed in 2 OrderSheet [facility] Emergency Department [address] [place] [address] Phone #: ext- [phone] 05/06/2020 16:15 [id number] Sex[facility] : 1940 Age: 80yHealthcare Setting)DIAGNOSTIC [...] 16:26 05/06/2020 16:44 Garry,Monitor Amara Macias R.N. 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 ;EKG [...] oximeter 16:26 05/06/2020 16:45 Garry, 3 OrderSheet [facility] Emergency Department [address] [place] [address] Phone #: ext- [phone] 05/06/2020 16:15 Patient: [...] rce(s) Supporting Document(s) ID Date Data Source [id number] 05/06/2020 04:16:00 PM EST [facility] 1 Medication Reconciliation Report [facility] Emergency Department [address] [place] [address] Phone #: ext- [phone] 05/06/2020 16:15 Patient: [...] 1 tablet, daily 2 Medication Reconciliation Report [facility] Emergency Department [address] [place] [address] Phone #: ext- [phone] 05/06/2020 16:15 Patient: [...] rce(s) Supporting Document(s) ID Date Data Source [id number] 05/06/2020 04:16:00 PM [place] [address] Medication Administration Record [facility] Emergency Department [address] [place] [address] Phone #: ext- [phone] 05/06/2020 16:15 Patient: JOY DENT Sex: F : 1940 Age: 80yWeight: 94.3 kgHeight/Length: 61 inBMI: 39.3ALLERGIES: Aloe, PCN, Penicillins Date/Time Medication Administered Medication OrderedGiven LASIX [IVP] Lasix IVP 40 mg (NOW x1)18:42 05/06/2020 Dose: 40 mg Shanell Quinteros R.N. Site: #1 left forearm Name Value Range Interpretation Code Description Data Vivian rce(s) Supporting Document(s) ID Date Data Source [id number] 05/06/2020 04:16:00 PM [facility] 1 General Instructions [facility] Emergency Department [address] [place] [address] Phone #: ext [phone] 05/06/2020 16:15 Patient: JOY DENT Sex: F : 1940 Age: 80yAcute dizziness.Acute moderate systolic, left ventricular congestive heart failure.(Electronically signed by Amara Macias 05/06/2020 22:28) Name Value Range Interpretation Code Description Data Vivian rce(s) Supporting Document(s) ID Date Data Source [id number] 05/06/2020 04:16:00 PM [facility] 1 Clinical Report - Nurses [facility] Emergency Department [address] [place], [place] [address] Phone #: ext- [phone] 05/06/2020 16:15 Patient: JOY DENT Sex: F [...] stent? 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 --16:28 05/06/20 Shanell Castañeda [...] 2000, daily. 2 Clinical Report - Nurses [facility] Emergency Department [address] [place] [address] Phone #: fus- [phone] 05/06/2020 16:15 [id number] Sex: F : 1940 Age: 80yWarfarin Sodium [...] harming or 3 Clinical Report - Nurses [facility] Emergency Department [address] [place] [address] Phone #: ext- [phone] 05/06/2020 16:15 Patient: [...] 2 seconds. 4 Clinical Report - Nurses [facility] Emergency Department [address] [place] [address] Phone #: ext- [phone] 05/06/2020 16:15 Patient: JOY DENT Sex: F : 1940 Age: 80y GI / : Abdomen soft and nontender. SKIN: Skin is warm and dry. --16:44 05/06/20 Shanell Castañeda R.N.NURSING PROGRESS NOTESOxygen administered by nasal cannula at 2 liters. coal feeder operator, NIBP monitor and pulse oximeterplaced on patient; systems program manager- Lead II; monitor alarms on; monitor strip [...] understanding. --18:42 5 Clinical Report - Nurses [facility] Emergency Department [address] [place] [address] Phone #: ext- [phone] 05/06/2020 16:15 Patient: [...] Agrawal R.N. 6 Clinical Report - Nurses [facility] Emergency Department [address] [place] [address] Phone #: ext- [phone] 05/06/2020 16:15 ------ Patient: JOY DENT Sex: F : 1940 Age: 80y 20:25 05/06/20. Temp: 98 F. Pain level now: 010. --20:41 05/06/20 Lesley Agrawal R.N.Locked/Released at 05/07/2020 06:49 by Lesley Agrawal R.N. Name Value Range Interpretation Code Description Data Vivian rce(s) Supporting Document(s) ID Date Data Source [id number] 05/06/2020 04:16:00 PM EST [facility] 1 Clinical Report - Physicians/Mid Levels [facility] Emergency Department [address] [place] [address] Phone #: ext- [phone] 05/06/2020 16:15 Patient: [...] Oxygen. she was recently seen by her mattress renovator who suggested that she gets a stent). Recent medical care: The patient was seen recently in a clinic. ( her lime trimmer who told her she has an abnormal [...] Disease. 2 Clinical Report - Physicians/Mid Levels [facility] Emergency Department [address] [place] [address] Phone #: ext- [phone] 05/06/2020 16:15 Patient: [...] EXAM 3 Clinical Report - Physicians/Mid Levels [facility] Emergency Department [address] [place] [address] Phone #: ext- [phone] 05/06/2020 16:15 Patient: [...] X-ray: (Vic yadav Mike - 05/06/2020 4:47:46 [facility] jorge/donaldo). The X-rays were interpreted by the [...] 0.70) 4 Clinical Report - Physicians/Mid Levels [facility] Emergency Department [address] [place] [address] Phone #: ext- [phone] 05/06/2020 16:15 Patient: [...] Male GFR Interprentation 20-49 yrs >60 mL/min Gtaktv79-69 yrs >56 mL/min Normal 60-69 yrs >49 mL/min Normal 70-79yrs>42 mL/min Normal 80 and above >35 mL/min Normal Female GFRInterpretation 20-39 yrs >60 mL/min Normal 40-49 yrs >58 mL/minNormal 50-59 yrs >51 mL/min Normal 60-69 yrs >45 mL/min Nuzhgp25-15 yrs >39 mL/min Normal 80 and above [...] value forTroponin T.BNP: (KATELYN: 05/06/2020 16:35) ( LagRcvd 05/06/2020 17:21) Final results Test Result Flag Units (Reference) BNP 8942 H PG/ML (0 - 450)PT/INR: (KATELYN: 05/06/2020 16 :35) ( MsgRcvd 05/06/2020 17:15) Final results Test Result Flag Units (Reference) PROTIME 24.2 H SECONDS (11.0 - 15.5) 5 Clinical Report - Physicians/Mid Levels [facility] Emergency Department [address] [place] [address] Phone #: ext- [phone] 05/06/2020 16:15 Patient: JOY DENT Sex: F : 1940 Age: 80y INR 2.06 H (0.93 - 1.23) \\BLDo\\INR INTERPRETATION\\BLDx\\ Therapeutic range for Coumadin and related oral anticoagulants. -International Normalized Ratio (INR): 2.0 - 3.0 for Venous Thrombosis, Pulmonary Embolus, Tissue heart valves, Acute CA, Atrial Fibrillation, Valvular heart disease and recurrent [...] failure. 6 Clinical Report - Physicians/Mid Levels [facility] Emergency Department [address] [place] [address] Phone #: ext- [phone] 05/06/2020 16:15 Patient: JOY DENT Sex: F : 1940 Age: 80y(Electronically signed by Amara Macias 05/06/2020 22:28) Name Value Range Interpretation Code Description Data Vivian rce(s) Supporting Document(s) ID Date Data Source [id number] 05/06/2020 04:16:00 PM EST [facility] JOY Lugo MR N: [id number] VisitID: [id number] Date: 17:45MED REC REQUEST FAXED TO [facility] WITH [employer] OVERVIEW @ 5681(Electronically signed by Hai White - 05/06/2020 17:45) Name Value Range Interpretation Code Description Data Vivian rce(s) Supporting Document(s) ID Date Data Source [id number] 05/07/2020 05:37:00 AM EST [facility] (Bolivar Sotomayor [...] MD) {A1] {HB] ID Date Data Source [id number] 05/07/2020 05:37:00 AM EST [facility] (Bolivar Sotomayor [...] (Bolivar Sotomayor MD) ID Date Data Source [id number] 05/07/2020 05:37:00 AM EST [facility] (Bolivar Sotomayor MD) Name Value Range Interpretation Code Description Data Vivian rce(s) Supporting Document(s) Magnesium [Mass/volume] in Serum or Plasma 1.8 mg/dL 1.7-2.2 [facility] (Bolivar Sotomayor MD) ID Date Data Source [id number] 05/07/2020 05:37:00 AM EST [facility] (Bolivar Sotomayor [...] (Bolivar Sotomayor MD) ID Date Data Source [id number] 05/07/2020 05:37:00 AM EST [facility] (Bolivar Sotomayor [...] (Bolivar Sotomayor MD) ID Date Data Source [id number] 05/07/2020 05:37:00 AM EST [facility] (Bolivar Sotomayor [...] Thrombosis, Pulmonary Embolus, Tissue heart valves, Acute CA, Atrial Fibrillation, Valvular heart disease and recurrent Systemic Embolism. -International Normalized Ratio (INR): 2 .5 - 3.5 for Mechanical Prosthetic valve. ID Date Data Source [id number] 05/07/2020 02:26:00 PM [facility] Name Value Range Interpretation Code Description Data Vivian rce(s) Supporting Document(s) Hemoglobin A1c/Hemoglobin.total in Blood 10.7 % 4.4 - 6.1 H [facility] {A1]{HB] ID Date Data Source [id number] 05/07/2020 06:50:00 AM [facility] Name Value Range Interpretation Code Description Data Vivian rce(s) Supporting Document(s) BNP 9000 PG/ML 0 - [address] [facility] ID Date Data Source [id number] 05/07/2020 06:47:00 AM [facility] Name Value Range Interpretation Code Description Data Vivian rce(s) Supporting Document(s) Thyroxine (T4) free index in Serum or Plasma by calculation 1.40 NG/DL 0.93 - 1.70 [facility] ID Date Data Source [id number] 05/07/2020 06:43:00 AM [facility] Name Value Range Interpretation Code Description Data Vivian rce(s) Supporting Document(s) CVE PANEL [facility] al LIPID PANEL Cholesterol [Mass/volume] in Serum or Plasma 90 MG/DL 131 - 200 L [facility] Deprecated Triglyceride [Mass/volume] in Serum or Plasma 89 MG/DL 3 5 - 160 [facility] HDL 30 MG/DL 29 - 86 [facility] Cholesterol in LDL [Mass/volume] in Serum or Plasma by Direc t assay 45 mg/dL 65 - 175 [facility] Cholesterol.total/Cholesterol in HDL [Mass Ratio] in Serum o r Plasma 3.0 3.2 - 4.4 [facility] LDL/HDL 1.50 1.47 - 3.22 [facility] ital CVE RISK CHOL/HDL LDL/HDLMEN: 1/2 AVERAGE 3.43 1.00 AVERAGE 4.97 3.55 2X AVERAGE 9.55 6.25 3X AVERAGE 23.99 7.99WOMEN: 1/2 AVERAGE 3.27 1.47 AVERAGE 4.44 3.22 2X AVERAGE 7.05 5.03 3X AVERAGE 11.04 6.14 ID Date Data Source [id number] 05/07/2020 06:43:00 AM EST [facility] Name Value Range Interpretation Code Description Data Vivian rce(s) Supporting Document(s) COMPREHENSIVE METABOLIC PANEL [facility] COMPREHENSIVE METABOLIC PANEL Sodium [Moles/volume] in Serum or Plasma 141 mEq/L 134 - 153 [facility] Potassium [Moles/volume] in Serum or Plasma 3.2 mEq/L 3.6 - 5.0 [facility] Chloride [Moles/volume] in Serum or Plasma 96 mEq/L 98 - 107 [facility] Carbon dioxide, total [Moles/volume] in Serum or Plasma 40 MEQ/L 22 - 30 [facility] Glucose [Mass/volume] in Serum or Plasma 93 MG/DL 65 - 110 [facility] BUN 21 MG/DL 7 - 21 [facility] al Creatinine [Mass/volume] in Serum or Plasma 1.2 MG/DL 0.7 - 1.5 [facility] BUN/CREAT 18 8 - 27 [facility] al Protein [Mass/volume] in Serum or Plasma 5.4 G/DL 6.3 - 8.2 [facility] Albumin [Mass/volume] in Serum or Plasma 3.7 G/DL 3.9 - 5.0 [facility] Globulin [Mass/volume] in Serum by calculation 1.7 GM/DL 2.4 - 3.2 [facility] A/G RATIO 2.2 0.8 - 2.[address] [facility] Calcium [Mass/volume] in Serum or Plasma 8.4 MG/DL 8.4 - 10.2 [facility] Bilirubin.total [Mass/volume] in Serum or Plasma 1.5 MG/DL 0.2 - 1.3 [facility] Alkaline phosphatase [Enzymatic activity/volume] in Serum or Plasma 223 U/L 38 - 126 [facility] Aspartate aminotransferase [Enzymatic activity/volume] in Serum or Plasma 20 U/L 5 - 40 [facility] Alanine aminotransferase [Enzymatic activity/volume] in Seru m or Plasma 10 U/L 7 - 56 [facility] Anion gap 3 in Serum or Plasma 5.0 mmol/L 8.0 - 16.0 [facility] AGE [address] [facility] NON-AA GFR 46 mL/min [facility] iggy AFR AMER GFR >60 [facility] Male GFR In terprentation 20-49 [...] >32 mL/min Normal ID Date Data Source [id number] 05/07/2020 06:42:00 AM EST [facility] Name Value Range Interpretation Code Description Data Vivian rce(s) Supporting Document(s) CBC W/AUTOMATED DIFF [facility] COMPLETE BLOOD COUNT Leukocytes [#/volume] in Blood by Automated count 6.2 10^3/uL 4.2 - 1 1.0 [facility] Erythrocytes [#/volume] in Blood by Automated count 3.97 10^6/uL 4. 20 - 5.40 [facility] Hemoglobin [Mass/volume] in Blood 12.3 g/dL 12.0 - 16.0 [facility] Hematocrit [Volume Fraction] of Blood by Automated count 37.0 % 3 7.0 - 47.0 [facility] Erythrocyte mean corpuscular volume [Entitic volume] by Auto mated count 93.2 fL 81.0 - 101 [facility] Erythrocyte mean corpuscular hemoglobin [Entitic mass] by Automated count 31.0 pg 27.0 - 34.0 [facility] Erythrocyte mean corpuscular hemoglobin concentration [Mass/volume] by Automated count 33.2 g/dL 31.0 - 36.0 [facility] Erythrocyte distribution width [Ratio] by Automated count 16.2 % 11.5 - 14.5 [facility] Platelets [#/volume] in Blood by Automated count 133 10^3/uL 150 - 45 0 [facility] Platelet mean volume [Entitic volume] in Blood by Automated count 12.4 fL 7.4 - 10.4 [facility] Neutrophils/100 leukocytes in Blood by Automated count 64.7 % 37. 0 - 80.0 [facility] Lymphocytes/100 leukocytes in Blood by Manual count 19.4 % 25.0 - 40.0 [facility] Monocytes/100 leukocytes in Blood by Automated count 11.7 % 3.0 - 8.0 [facility] Eosinophils/100 leukocytes in Blood by Automated count 3.5 % 0.0 - 7.0 [facility] Basophils/100 leukocytes in Blood by Automated count 0.5 % 0.0 - 2.5 [facility] %IG 0.2 % 0.0 - 0.0 H [facility] al %NRBC 0.0 % 0.0 - 0.0 [facility] al Neutrophils [#/volume] in Blood by Automated count 4.03 10^3/uL 2.00 - 6.90 [facility] Lymphocytes [#/volume] in Blood by Automated count 1.21 10^3/uL 0.60 - 3.40 [facility] Monocytes [#/volume] in Blood by Automated count 0.73 10^3/uL 0.00 - 0.90 [facility] Eosinophils [#/volume] in Blood by Automated count 0.22 10^3/uL 0.00 - 0.70 [facility] Basophils [#/volume] in Blood by Automated count 0.03 10^3/uL 0.00 - 0.20 [facility] #IG 0.01 10^3/uL 0.00 - 0.10 [facility] ospital #NRBC 0.00 10^3/uL 0.00 - 0.00 [facility] ospital MANUAL DIFF NOT INDICATED [facility] RBC MORPH NOT INDICATED [facility] Ho spital ID Date Data Source [id number] 05/07/2020 06:41:00 AM EST [facility] Name Value Range Interpretation Code Description Data Vivian rce(s) Supporting Document(s) Magnesium [Mass/volume] in Serum or Plasma 1.8 MG/DL 1.7 - 2.2 [facility] ID Date Data Source [id number] 05/07/2020 06:20:00 AM [facility] Name Value Range Interpretation Code Description Data Vivian rce(s) Supporting Document(s) Prothrombin time (PT) 23.1 SECONDS 11.0 - 15.5 [facility] INR in Platelet poor plasma by Coagulation assay 1.94 0.93 - 1. 23 [facility] \\BLDo\\INR INTERPRETATION\\BLDx\\ Therapeutic range for Coumadin and related oral anticoagulants. - International Normalized Ratio (INR): 2.0 - 3.0 for Venous Thrombosis, Pulmonary Embolus, Tissue heart valves, Acute CA, Atrial Fibrillation, Valvular heart disease and recurrent Systemic Embolism. -International Normalized Ratio (INR): 2.5 - 3.5 for Mechanical Prosthetic valve. ID Date Data Source [id number] 05/06/2020 07:47:00 PM EST [facility] Name Value Range Interpretation Code Description Data Vivian rce(s) Supporting Document(s) COVID-19 [facility] This lab was ordered by [facility] and reported by [facility]. ID Date Data Source [id number] 05/06/2020 07:47:00 PM EST [facility] Name Value Range Interpretation Code Description Data Vivian rce(s) Supporting Document(s) COVID-19 [facility] This lab was ordered by [facility] and reported by [facility]. ID Date Data Source [id number] 05/06/2020 08:16:00 PM [facility] Name Value Range Interpretation Code Description Data Vivian rce(s) Supporting Document(s) COVID-19 NOT DETECTED [facility] COVID-19 [facility] NOT DETECTED [facility] { PROCEDURAL CONTROL VALID KIT LOT # [...] PATIENT MANAGEMENT DECISIONS. ID Date Data Source [id number] 05/06/2020 04:35:00 PM EST [facility] (Bolivar Sotomayor [...] on todays blood ID Date Data Source [id number] 05/07/2020 01:44:00 AM [facility] Value Range Interpretation Code Description Data Vivian rce(s) Supporting Document(s) Thyrotropin [Units/volume] in Serum or Plasma by Detec tion limit <= 0.05 mIU/L 8.43 uIU/mL 0.47 - 5.01 [facility] ID Date Data Source [id number] 05/06/2020 08:40:00 PM [facility] Value Range Interpretation Code Description Data Vivian rce(s) Supporting Document(s) Magnesium [Mass/volume] in Serum or Plasma 1.9 MG/DL 1.7 - 2.2 [facility] ID Date Data Source [id number] 05/06/2020 05:21:00 PM EST [facility] Name Value Range Interpretation Code Description Data Vivian rce(s) Supporting Document(s) COMPREHENSIVE METABOLIC PANEL [facility] COMPREHENSIVE METABOLIC PANEL Sodium [Moles/volume] in Serum or Plasma 134 mEq/L 134 - 153 [facility] Potassium [Moles/volume] in Serum or Plasma 4.6 mEq/L 3.6 - 5.0 [facility] Chloride [Moles/volume] in Serum or Plasma 91 mEq/L 98 - 107 [facility] Carbon dioxide, total [Moles/volume] in Serum or Plasma 36 MEQ/L 22 - 30 [facility] Glucose [Mass/volume] in Serum or Plasma 304 MG/DL 65 - 110 [facility] BUN 23 MG/DL 7 - [address] [facility] Creatinine [Mass/volume] in Serum or Plasma 1.3 MG/DL 0.7 - 1.5 [facility] BUN/CREAT 18 8 - 27 [facility] al Protein [Mass/volume] in Serum or Plasma 6.0 G/DL 6.3 - 8.2 [facility] Albumin [Mass/volume] in Serum or Plasma 4.1 G/DL 3.9 - 5.0 [facility] Globulin [Mass/volume] in Serum by calculation 1.9 GM/DL 2.4 - 3.2 [facility] A/G RATIO 2.2 0.8 - 2.0 [facility] Calcium [Mass/volume] in Serum or Plasma 8.9 MG/DL 8.4 - 10.2 [facility] Bilirubin.total [Mass/volume] in Serum or Plasma 1.5 MG/DL 0.2 - 1.3 [facility] Alkaline phosphatase [Enzymatic activity/volume] in Serum or Plasma 257 U/L 38 - 126 [facility] Aspartate aminotransferase [Enzymatic activity/volume] in Serum or Plasma 23 U/L 5 - 40 [facility] Alanine aminotransferase [Enzymatic activity/volume] in Seru m or Plasma 13 U/L 7 - 56 [facility] Anion gap 3 in Serum or Plasma 7.0 mmol/L 8.0 - 16.0 [facility] AGE [address] [facility] NON-AA GFR 42 mL/min [facility] AFR AMER GFR >60 [facility] Male GFR In terprentation 20-49 [...] >32 mL/min Normal ID Date Data Source [id number] 05/06/2020 05:21:00 PM [facility] Name Value Range Interpretation Code Description Data Vivian rce(s) Supporting Document(s) BNP 8942 PG/ML 0 - 450 [facility] ID Date Data Source [id number] 05/06/2020 05:21:00 PM [facility] Name Value Range Interpretation Code Description Data Vivian rce(s) Supporting Document(s) Lipase [Enzymatic activity/volume] in Serum or Plasma 28 U/L 13 - 60 [facility] ID Date Data Source [id number] 05/06/2020 05:21:00 PM [facility] Value Range Interpretation Code Description Data Vivian rce(s) Supporting Document(s) TROPONIN T <0.01 NG/ML 0.00 - 0.10 [facility]spital TROPONIN T0.1 ng/ml Recommended as the c linical threshold value forTroponin T. ID Date Data Source [id number] 05/06/2020 05:15:00 PM [facility] Value Range Interpretation Code Description Data Vivian rce(s) Supporting Document(s) Prothrombin time (PT) 24.2 SECONDS 11.0 - 15.5 [facility] INR in Platelet poor plasma by Coagulation assay 2.06 0.93 - 1. 23 [facility] \\BLDo\\INR INTERPRETATION\\BLDx\\ Therapeutic range for Coumadin and related oral anticoagulants. - International Normalized Ratio (INR): 2.0 - 3.0 for Venous Thrombosis, Pulmonary Embolus, Tissue heart valves, Acute CA, Atrial Fibrillation, Valvular heart disease and recurrent Systemic Embolism. -International Normalized Ratio (INR): 2.5 - 3.5 for Mechanical Prosthetic valve. ID Date Data Source [id number] 05/06/2020 05:02:00 PM EST [facility] Name Value Range Interpretation Code Description Data Vivian rce(s) Supporting Document(s) pH of Serum or Plasma 7.39 7.32 - 7.43 [facility] pCO2 V 61.5 mm/HG 38.0 - 51.0 H [facility] pO2 V 34.3 mm/HG 30.0 - 55.0 [facility] pital Bicarbonate [Moles/volume] in Venous blood 36.5 meq/L 22.0 - 29.0 [facility] TCO2 V 38.4 meq/L 22.0 - 29.0 [facility] pital Base excess in Blood by calculation 9.3 -2.0 - 2.0 [facility] O2 SAT V 67.1 % 40.0 - 85.0 [facility] ital ID Date Data Source [id number] 05/06/2020 04:54:00 PM EST [facility] Name Value Range Interpretation Code Description Data Vivian rce(s) Supporting Document(s) CBC W/AUTOMATED DIFF [facility] COMPLETE BLOOD COUNT Leukocytes [#/volume] in Blood by Automated count 7.6 10^3/uL 4.2 - 1 1.0 [facility] Erythrocytes [#/volume] in Blood by Automated count 4.30 10^6/uL 4. 20 - 5.40 [facility] Hemoglobin [Mass/volume] in Blood 13.2 g/dL 12.0 - 16.0 [facility] Hematocrit [Volume Fraction] of Blood by Automated count 40.5 % 3 7.0 - 47.0 [facility] Erythrocyte mean corpuscular volume [Entitic volume] by Auto mated count 94.2 fL 81.0 - 101 [facility] Erythrocyte mean corpuscular hemoglobin [Entitic mass] by Automated count 30.7 pg 27.0 - 34.0 [facility] Erythrocyte mean corpuscular hemoglobin concentration [Mass/volume] by Automated count 32.6 g/dL 31.0 - 36.0 [facility] Erythrocyte distribution width [Ratio] by Automated count 16.5 % 11.5 - 14.5 [facility] Platelets [#/volume] in Blood by Automated count 135 10^3/uL 150 - 45 0 [facility] Platelet mean volume [Entitic volume] in Blood by Automated count 11.7 fL 7.4 - 10.4 [facility] Neutrophils/100 leukocytes in Blood by Automated count 74.9 % 37. 0 - 80.0 [facility] Lymphocytes/100 leukocytes in Blood by Manual count 15.2 % 25.0 - 40.0 [facility] Monocytes/100 leukocytes in Blood by Automated count 9.0 % 3.0 - 8.0 [facility] Eosinophils/100 leukocytes in Blood by Automated count 0.4 % 0.0 - 7.0 [facility] Basophils/100 leukocytes in Blood by Automated count 0.4 % 0.0 - 2.5 [facility] %IG 0.1 % 0.0 - 0.[address] [facility] %NRBC 0.0 % 0.0 - 0.0 [facility] al Neutrophils [#/volume] in Blood by Automated count 5.67 10^3/uL 2.00 - 6.90 [facility] Lymphocytes [#/volume] in Blood by Automated count 1.15 10^3/uL 0.60 - 3.40 [facility] Monocytes [#/volume] in Blood by Automated count 0.68 10^3/uL 0.00 - 0.90 [facility] Eosinophils [#/volume] in Blood by Automated count 0.03 10^3/uL 0.00 - 0.70 [facility] Basophils [#/volume] in Blood by Automated count 0.03 10^3/uL 0.00 - 0.20 [facility] #IG 0.01 10^3/uL 0.00 - 0.10 [facility] ospital #NRBC 0.00 10^3/uL 0.00 - 0.00 [facility] ospital MANUAL DIFF NOT INDICATED [facility] RBC MORPH NOT INDICATED [facility] spital ID Date Data Source [id number] 03/27/2020 09:42:00 [place] [address] PROGRESS NOTENAME: ANNA Medina ROOM#: [id number] OF : 1940 MR#: [id number] DATE: 03/25/20 OF SERVICE: 03/27/2020SUBJECTIVE:Patient feels dyspneic. [...] rce(s) Supporting Document(s) ID Date Data Source [id number] 03/30/2020 10:16:[address] [address] DISCHARGE SUMMARYNAME: ANNA Medina ROOM#: [id number] OF : 1940 MR#: [id number] PHYS: Bolivar Sotomayor MD, PC DATE: 03/25/20 [...] hemoglobin 13.7, sodium 139, potassium 5.3, blood [id number], BNP 5816, magnesium 2.1. On 03/24, potassium [...] daily.11. [facility] eye drops for glaucoma. [address] [place] [address] DISCHARGE SUMMARYNAME: ANNA Medina ROOM#: [id number] OF : 1940 MR#: [id number] PHYS: Bolivar Sotomayor MD, PC DATE: 03/25/20 [...] rce(s) Supporting Document(s) ID Date Data Source [id number] 03/29/2020 08:50:00 [place] [address] PROGRESS NOTENAME: ANNA Medina ROOM#: [id number] OF : 1940 MR#: [id number] DATE: 03/25/20 OF SERVICE: 03/29/20UBJECTIVE: She was admitted with CHF and has pneumonia. She is feeling much better. Her lung soundsare greatly improved. X-ray still shows consolidation. Will add Acapella. She is not wheezing.LABORATORY STUDIES: Today, white count is 6.4, hemoglobin is 12.7, hematocrit is 38.6, platelets [id number]. Sodium is 139, potassium is 4.3, chloride [...] rce(s) Supporting Document(s) ID Date Data Source [id number] 03/28/2020 11:21:00 [place] [address] PROGRESS NOTENAME: ANNA Medina ROOM#: [id number] OF : 1940 MR#: [id number] DATE: 03/25/20 OF SERVICE: 03/28/20UBJECTIVE: Admitted with [...] rce(s) Supporting Document(s) ID Date Data Source [id number] 03/30/2020 12:03:00 PM EST [facility] [address] [place] [address] PHONE: [phone] FAX: [phone] Name .................. : ANNA Medina Acct Number.................. : [id number] ROOM. ................. : CCU1 MR Number ................... : [id number] Stay type ............. : I/P Discharge Date......... ... : Admit Date ......... : 03/25/20 Admit Phys .................... : MANUEL ALIZE Date of ....... : 1940 Family Phys ................... : NAUN MTZ Phone ..... ............. : [phone] Age ................................ : 80 Film# .................. .:[id number] Sex ................................. : F Unsigned t ranscriptions are preliminary reports and do not represent a medical or legal document CHEST 2 VIEWS [id number] COMPLETE:03/29/20 07:29 KJE [id number] (REASON FOR CHEST: PNEUMONIA CHEST X-RAY: 2-VIEWS [...] 03/29/20 09:53, Dictation Date: Copy for: 002 [facility] Copy for: 710 [facility] REC Page 1 of 1 Name Value Range Interpretation Code Description Data Vivian rce(s) Supporting Document(s) ID Date Data Source [id number] 03/30/2020 11:25:00 [place] [address] PHONE: [phone] FAX: [phone] Name .................. : ANNA ALLEN Carol Acct Number.................. : [id number] ROOM. ................. : CCU1 Number ................... : [id number] Stay type ............. : I/P Discharge Date......... ... : Admit Date ......... : 03/25/20 Admit Phys .................... : MANUEL ALIZE Date of ....... : 1940 Family Phys ................... : NAUN MTZ Phone .................. : [phone] Age ................................ : 80 Film# .................. .:[id number] Sex ................................. : F Unsigned transcriptions are preliminary reports and do not represent a medical or legal document CHEST 2 VIEWS [id number] COMPLETE:03/30/20 06:56 KJE [id number] (REASON FOR CHEST: f/u RLL,f/u LLL pneumonia, [...] 03/30/20 07:04, Dictation Date: Copy for: 002 [facility] Copy for: 710 [facility] REC Page 1 of 1 Name Value Range Interpretation Code Description Data Vivian rce(s) Supporting Document(s) ID Date Data Source [id number] 03/30/2020 05:09:00 AM EST [facility] (Bolivar Sotomayor [...] >32 mL/min Normal ID Date Data Source [id number] 03/30/2020 05:09:00 AM EST [facility] (Bolivar Sotomayor [...] (Bolivar Sotomayor MD) ID Date Data Source [id number] 03/30/2020 07:05:00 AM EST [facility] Name Value Range Interpretation Code Description Data Vivian rce(s) Supporting Document(s) COMPREHENSIVE METABOLIC PANEL [facility] COMPREHENSIVE METABOLIC PANEL Sodium [Moles/volume] in Serum or Plasma 139 mEq/L 134 - 153 [facility] Potassium [Moles/volume] in Serum or Plasma 4.2 mEq/L 3.6 - 5.0 [facility] Chloride [Moles/volume] in Serum or Plasma 93 mEq/L 98 - 107 L [facility] Carbon dioxide, total [Moles/volume] in Serum or Plasma 40 MEQ/L 22 - 30 [facility] Glucose [Mass/volume] in Serum or Plasma 286 MG/DL 65 - 110 [facility] BUN 33 MG/DL 7 - [address] [facility] Creatinine [Mass/volume] in Serum or Plasma 1.5 MG/DL 0.7 - 1.5 [facility] BUN/CREAT 22 8 - 27 [facility] al Protein [Mass/volume] in Serum or Plasma 5.9 G/DL 6.3 - 8.2 L [facility] Albumin [Mass/volume] in Serum or Plasma 3.8 G/DL 3.9 - 5.0 L [facility] Globulin [Mass/volume] in Serum by calculation 2.1 GM/DL 2.4 - 3.2 L [facility] A/G RATIO 1.8 0.8 - 2.0 [facility] al Calcium [Mass/volume] in Serum or Plasma 10.0 MG/DL 8.4 - 10.2 [facility] Bilirubin.total [Mass/volume] in Serum or Plasma 1.1 MG/DL 0.2 - 1.3 [facility] Alkaline phosphatase [Enzymatic activity/volume] in Serum or Plasma 229 U/L 38 - 126 [facility] Aspartate aminotransferase [Enzymatic activity/volume] in Serum or Plasma 24 U/L 5 - 40 [facility] Alanine aminotransferase [Enzymatic activity/volume] in Seru m or Plasma 17 U/L 7 - 56 [facility] Anion gap 3 in Serum or Plasma 6.0 mmol/L 8.0 - 16.0 L [facility] AGE 80 yrs [facility] NON-AA GFR 36 mL/min [facility] iggy AFR AMER GFR >60 [facility] Male GFR In terprentation 20-49 [...] >32 mL/min Normal ID Date Data Source [id number] 03/30/2020 06:42:00 AM EST [facility] Name Value Range Interpretation Code Description Data Vivian rce(s) Supporting Document(s) CBC W/AUTOMATED DIFF [facility] COMPLETE BLOOD COUNT Leukocytes [#/volume] in Blood by Automated count 6.6 10^3/uL 4.2 - 1 1.0 [facility] Erythrocytes [#/volume] in Blood by Automated count 4.09 10^6/uL 4. 20 - 5.40 L [facility] Hemoglobin [Mass/volume] in Blood 12.7 g/dL 12.0 - 16.0 [facility] Hematocrit [Volume Fraction] of Blood by Automated count 38.4 % 3 7.0 - 47.0 [facility] Erythrocyte mean corpuscular volume [Entitic volume] by Auto mated count 93.9 fL 81.0 - 101 [facility] Erythrocyte mean corpuscular hemoglobin [Entitic mass] by Automated count 31.1 pg 27.0 - 34.0 [facility] Erythrocyte mean corpuscular hemoglobin concentration [Mass/volume] by Automated count 33.1 g/dL 31.0 - 36.0 [facility] Erythrocyte distribution width [Ratio] by Automated count 17.2 % 11.5 - 14.5 H [facility] Platelets [#/volume] in Blood by Automated count 140 10^3/uL 150 - 45 0 L [facility] Platelet mean volume [Entitic volume] in Blood by Automated count 12.3 fL 7.4 - 10.4 H [facility] Neutrophils/100 leukocytes in Blood by Automated count 65.3 % 37. 0 - 80.0 [facility] Lymphocytes/100 leukocytes in Blood by Manual count 17.0 % 25.0 - 40.0 L [facility] Monocytes/100 leukocytes in Blood by Automated count 11.6 % 3.0 - 8.0 H [facility] Eosinophils/100 leukocytes in Blood by Automated count 5.3 % 0.0 - 7.0 [facility] Basophils/100 leukocytes in Blood by Automated count 0.5 % 0.0 - 2.5 [facility] %IG 0.3 % 0.0 - 0.[address] [facility] %NRBC 0.0 % 0.0 - 0.0 [facility] al Neutrophils [#/volume] in Blood by Automated count 4.29 10^3/uL 2.00 - 6.90 [facility] Lymphocytes [#/volume] in Blood by Automated count 1.12 10^3/uL 0.60 - 3.40 [facility] Monocytes [#/volume] in Blood by Automated count 0.76 10^3/uL 0.00 - 0.90 [facility] Eosinophils [#/volume] in Blood by Automated count 0.35 10^3/uL 0.00 - 0.70 [facility] Basophils [#/volume] in Blood by Automated count 0.03 10^3/uL 0.00 - 0.20 [facility] #IG 0.02 10^3/uL 0.00 - 0.10 [facility] ospital #NRBC 0.00 10^3/uL 0.00 - 0.00 [facility] ospital MANUAL DIFF NOT INDICATED [facility] RBC MORPH NOT INDICATED [facility] Ho spital ID Date Data Source [id number] 03/29/2020 08:52:00 AM EST [facility] Faxed to [facility] 03/29 @0855a. [facility] Name Value Range Interpretation Code Description Data Vivian rce(s) Supporting Document(s) Prothrombin Time (Patient) 19.3 s 9.6-12.3 Above high normal [facility] INR 1.9 0.9-1.1 Above high normal [facility] THE INR IS OPERATIONALLY DEFINED FOR ENA SH PLASMA FROMPATIENTS STABILIZED ON ORAL ANTICOAGULANTS.ROUTINE ANTICOAGULANT THERAPY 2.0-3.0RECURRENT SYSTEMIC EMBOLISM/HEART VALVE REPLACEMENT 2.5-3.5 ID Date Data Source [id number] 03/29/2020 06:05:00 AM EST [facility] (Bolivar Sotomayor MD) Name Value Range Interpretation Code Description Data Vivian rce(s) Supporting Document(s) Laboratory test finding (navigational concept) 19.3 s 1 1.0-15.5 Above high normal [facility] (Bolivar Sotomayor MD) TEST PERFORMED AT [facility] [address] [place] [address] IA# [id number] SEE SCANNED REPORT Laboratory test finding (navigational concept) 1.90 0 .93-1.23 Above high normal [facility] (Bolivar Sotomayor MD) \\BLDo\\INR INTERPRETATION\\BLDx\\ Therapeutic range for Coumadin and related oral anticoagulants. -International Normalized Ratio (INR): 2 .0 - 3.0 for Venous Thrombosis, Pulmonary Embolus, Tissue heart valves, Acute CA, Atrial Fibrillation, Valvular heart disease and recurrent Systemic Embolism. -International Normalized Ratio (INR): 2 .5 - 3.5 for Mechanical Prosthetic valve. ID Date Data Source [id number] 03/29/2020 06:05:00 AM EST [facility] (Bolivar Sotomayor MD) Name Value Range Interpretation Code Description Data Vivian rce(s) Supporting Document(s) Laboratory test finding (navigational concept) Laboratory test result [facility] (Bolivar Sotomayor MD) Is patient fasting? Y Laboratory test finding (navigational concept) 4.12 10^6/uL 4 .20-5.40 Below low normal [facility] (Bloivar Sotomayor MD) Is patient fasting? Y Laboratory [...] (navigational concept) Laboratory test result [facility] (Bolivar Sotomyaor MD) Is patient fasting? Y ID Date Data Source [id number] 03/29/2020 06:05:00 AM EST [facility] (Bolivar Sotomayor [...] patient fasting? Y ID Date Data Source [id number] 03/29/2020 10:16:00 AM EST [facility] Name Value Range Interpretation Code Description Data Vivian rce(s) Supporting Document(s) Prothrombin time (PT) 19.3 SECONDS 11.0 - 15.5 [facility] [place] [address] CLIA# [id number] SEE SCANNED REPORT INR in Platelet poor plasma by Coagulation assay 1.90 0.93 - 1. 23 [facility] \\BLDo\\INR INTERPRETATION\\BLDx\\ Therapeutic range for Coumadin and related oral anticoagulants. - International Normalized Ratio (INR): 2.0 - 3.0 for Venous Thrombosis, Pulmonary Embolus, Tissue heart valves, Acute CA, Atrial Fibrillation, Valvular heart disease and recurrent Systemic Embolism. -International Normalized Ratio (INR): 2.5 - 3.5 for Mechanical Prosthetic valve. ID Date Data Source [id number] 03/29/2020 07:40:00 AM EST [facility] Name Value Range Interpretation Code Description Data Vivian rce(s) Supporting Document(s) CBC W/AUTOMATED DIFF [facility] COMPLETE BLOOD COUNT Leukocytes [#/volume] in Blood by Automated count 6.4 10^3/uL 4.2 - 1 1.0 [facility] Erythrocytes [#/volume] in Blood by Automated count 4.12 10^6/uL 4. 20 - 5.40 L [facility] Hemoglobin [Mass/volume] in Blood 12.7 g/dL 12.0 - 16.0 [facility] Hematocrit [Volume Fraction] of Blood by Automated count 38.6 % 3 7.0 - 47.0 [facility] Erythrocyte mean corpuscular volume [Entitic volume] by Auto mated count 93.7 fL 81.0 - 101 [facility] Erythrocyte mean corpuscular hemoglobin [Entitic mass] by Automated count 30.8 pg 27.0 - 34.0 [facility] Erythrocyte mean corpuscular hemoglobin concentration [Mass/volume] by Automated count 32.9 g/dL 31.0 - 36.0 [facility] Erythrocyte distribution width [Ratio] by Automated count 17.0 % 11.5 - 14.5 H [facility] Platelets [#/volume] in Blood by Automated count 150 10^3/uL 150 - 45 0 [facility] Platelet mean volume [Entitic volume] in Blood by Automated count 12.8 fL 7.4 - 10.4 H [facility] Neutrophils/100 leukocytes in Blood by Automated count 64.6 % 37. 0 - 80.0 [facility] Lymphocytes/100 leukocytes in Blood by Manual count 17.0 % 25.0 - 40.0 L [facility] Monocytes/100 leukocytes in Blood by Automated count 11.2 % 3.0 - 8.0 H [facility] Eosinophils/100 leukocytes in Blood by Automated count 6.4 % 0.0 - 7.0 [facility] Basophils/100 leukocytes in Blood by Automated count 0.5 % 0.0 - 2.5 [facility] %IG 0.3 % 0.0 - 0.[address] [facility] %NRBC 0.0 % 0.0 - 0.0 [facility] al Neutrophils [#/volume] in Blood by Automated count 4.15 10^3/uL 2.00 - 6.90 [facility] Lymphocytes [#/volume] in Blood by Automated count 1.09 10^3/uL 0.60 - 3.40 [facility] Monocytes [#/volume] in Blood by Automated count 0.72 10^3/uL 0.00 - 0.90 [facility] Eosinophils [#/volume] in Blood by Automated count 0.41 10^3/uL 0.00 - 0.70 [facility] Basophils [#/volume] in Blood by Automated count 0.03 10^3/uL 0.00 - 0.20 [facility] #IG 0.02 10^3/uL 0.00 - 0.10 [facility] ospital #NRBC 0.00 10^3/uL 0.00 - 0.00 [facility] ospital MANUAL DIFF NOT INDICATED [facility] RBC MORPH NOT INDICATED [facility] spital ID Date Data Source [id number] 03/29/2020 07:34:00 AM EST [facility] Name Value Range Interpretation Code Description Data Vivian rce(s) Supporting Document(s) COMPREHENSIVE METABOLIC PANEL [facility] COMPREHENSIVE METABOLIC PANEL Sodium [Moles/volume] in Serum or Plasma 139 mEq/L 134 - 153 [facility] Potassium [Moles/volume] in Serum or Plasma 4.3 mEq/L 3.6 - 5.0 [facility] Chloride [Moles/volume] in Serum or Plasma 93 mEq/L 98 - 107 L [facility] Carbon dioxide, total [Moles/volume] in Serum or Plasma 42 MEQ/L 22 - 30 [facility] CALL/ READ BACK OLIVER CARROLL [facility] BY: LARRY [facility] DATE/TIME 03.29.20 0734 [facility] spital Glucose [Mass/volume] in Serum or Plasma 239 MG/DL 65 - 110 [facility] BUN 33 MG/DL 7 - 21 H [facility] al Creatinine [Mass/volume] in Serum or Plasma 1.4 MG/DL 0.7 - 1.5 [facility] BUN/CREAT 24 8 - 27 [facility] Protein [Mass/volume] in Serum or Plasma 5.7 G/DL 6.3 - 8.2 L [facility] Albumin [Mass/volume] in Serum or Plasma 3.6 G/DL 3.9 - 5.0 L [facility] Globulin [Mass/volume] in Serum by calculation 2.1 GM/DL 2.4 - 3.2 L [facility] A/G RATIO 1.7 0.8 - 2.0 [facility] Calcium [Mass/volume] in Serum or Plasma 9.8 MG/DL 8.4 - 10.2 [facility] Bilirubin.total [Mass/volume] in Serum or Plasma 1.2 MG/DL 0.2 - 1.3 [facility] Alkaline phosphatase [Enzymatic activity/volume] in Serum or Plasma 215 U/L 38 - 126 [facility] Aspartate aminotransferase [Enzymatic activity/volume] in Serum or Plasma 21 U/L 5 - 40 [facility] Alanine aminotransferase [Enzymatic activity/volume] in Seru m or Plasma 15 U/L 7 - 56 [facility] Anion gap 3 in Serum or Plasma 4.0 mmol/L 8.0 - 16.0 L [facility] AGE 80 yrs [facility] al NON-AA GFR 38 mL/min [facility] AFR AMER GFR >60 [facility] Male GFR In terprentation 20-49 [...] >32 mL/min Normal ID Date Data Source [id number] 03/28/2020 06:07:00 AM EST [facility] (Bolivar Sotomayor MD) Name Value Range Interpretation Code Description Data Vivian rce(s) Supporting Document(s) Lactate [Mass/volume] in Serum or Plasma 1.4 mmol/L 0.2-2.2 [facility] (Bolivar Sotomayor MD) ID Date Data Source [id number] 03/28/2020 06:07:00 AM EST [facility] (Bolivar Sotomayor [...] >32 mL/min Normal ID Date Data Source [id number] 03/28/2020 06:07:00 AM EST [facility] (Bolivar Sotomayor [...] (navigational concept) Laboratory test result [facility] (Bolivar Sotomaoyr MD) Laboratory test finding (navigational concept) Laboratory test result [facility] (Bolivar Sotomayor MD) ID Date Data Source [id number] 03/28/2020 07:23:00 AM [facility] Name Value Range Interpretation Code Description Data Vivian rce(s) Supporting Document(s) Lactate [Moles/volume] in Serum or Plasma 1.4 MMOL/L 0.2 - 2.2 [facility] ID Date Data Source [id number] 03/28/2020 07:23:00 AM [facility] Name Value Range Interpretation Code Description Data Vivian rce(s) Supporting Document(s) COMPREHENSIVE METABOLIC PANEL [facility] COMPREHENSIVE METABOLIC PANEL Sodium [Moles/volume] in Serum or Plasma 139 mEq/L 134 - 153 [facility] Potassium [Moles/volume] in Serum or Plasma 3.9 mEq/L 3.6 - 5.0 [facility] Chloride [Moles/volume] in Serum or Plasma 94 mEq/L 98 - 107 L [facility] Carbon dioxide, total [Moles/volume] in Serum or Plasma 40 MEQ/L 22 - 30 H [facility] Glucose [Mass/volume] in Serum or Plasma 201 MG/DL 65 - 110 H [facility] BUN 31 MG/DL 7 - 21 H [facility] al Creatinine [Mass/volume] in Serum or Plasma 1.2 MG/DL 0.7 - 1.5 [facility] BUN/CREAT 26 8 - 27 [facility] al Protein [Mass/volume] in Serum or Plasma 5.6 G/DL 6.3 - 8.2 L [facility] Albumin [Mass/volume] in Serum or Plasma 3.6 G/DL 3.9 - 5.0 L [facility] Globulin [Mass/volume] in Serum by calculation 2.0 GM/DL 2.4 - 3.2 L [facility] A/G RATIO 1.8 0.8 - 2.0 [facility] Calcium [Mass/volume] in Serum or Plasma 9.8 MG/DL 8.4 - 10.2 [facility] Bilirubin.total [Mass/volume] in Serum or Plasma 1.1 MG/DL 0.2 - 1.3 [facility] Alkaline phosphatase [Enzymatic activity/volume] in Serum or Plasma 213 U/L 38 - 126 H [facility] Aspartate aminotransferase [Enzymatic activity/volume] in Serum or Plasma 21 U/L 5 - 40 [facility] Alanine aminotransferase [Enzymatic activity/volume] in Seru m or Plasma 14 U/L 7 - 56 [facility] Anion gap 3 in Serum or Plasma 5.0 mmol/L 8.0 - 16.0 L [facility] AGE [address] [facility] NON-AA GFR 46 mL/min [facility] AFR AMER GFR >60 [facility] Male GFR In terprentation 20-49 [...] >32 mL/min Normal ID Date Data Source [id number] 03/28/2020 07:12:00 AM EST [facility] Name Value Range Interpretation Code Description Data Vivian rce(s) Supporting Document(s) CBC W/AUTOMATED DIFF [facility] COMPLETE BLOOD COUNT Leukocytes [#/volume] in Blood by Automated count 7.4 10^3/uL 4.2 - 1 1.0 [facility] Erythrocytes [#/volume] in Blood by Automated count 4.17 10^6/uL 4. 20 - 5.40 L [facility] Hemoglobin [Mass/volume] in Blood 13.2 g/dL 12.0 - 16.0 [facility] Hematocrit [Volume Fraction] of Blood by Automated count 39.2 % 3 7.0 - 47.0 [facility] Erythrocyte mean corpuscular volume [Entitic volume] by Auto mated count 94.0 fL 81.0 - 101 [facility] Erythrocyte mean corpuscular hemoglobin [Entitic mass] by Automated count 31.7 pg 27.0 - 34.0 [facility] Erythrocyte mean corpuscular hemoglobin concentration [Mass/volume] by Automated count 33.7 g/dL 31.0 - 36.0 [facility] Erythrocyte distribution width [Ratio] by Automated count 17.2 % 11.5 - 14.5 H [facility] Platelets [#/volume] in Blood by Automated count 148 10^3/uL 150 - 45 0 L [facility] Platelet mean volume [Entitic volume] in Blood by Automated count 12.1 fL 7.4 - 10.4 H [facility] Neutrophils/100 leukocytes in Blood by Automated count 70.4 % 37. 0 - 80.0 [facility] Lymphocytes/100 leukocytes in Blood by Manual count 14.2 % 25.0 - 40.0 L [facility] Monocytes/100 leukocytes in Blood by Automated count 8.6 % 3.0 - 8.0 H [facility] Eosinophils/100 leukocytes in Blood by Automated count 6.0 % 0.0 - 7.0 [facility] Basophils/100 leukocytes in Blood by Automated count 0.4 % 0.0 - 2.5 [facility] %IG 0.4 % 0.0 - 0.0 H [facility] al %NRBC 0.0 % 0.0 - 0.0 [facility] al Neutrophils [#/volume] in Blood by Automated count 5.23 10^3/uL 2.00 - 6.90 [facility] Lymphocytes [#/volume] in Blood by Automated count 1.06 10^3/uL 0.60 - 3.40 [facility] Monocytes [#/volume] in Blood by Automated count 0.64 10^3/uL 0.00 - 0.90 [facility] Eosinophils [#/volume] in Blood by Automated count 0.45 10^3/uL 0.00 - 0.70 [facility] Basophils [#/volume] in Blood by Automated count 0.03 10^3/uL 0.00 - 0.20 [facility] #IG 0.03 10^3/uL 0.00 - 0.10 [facility] H ospital #NRBC 0.00 10^3/uL 0.00 - 0.00 [facility] ospital MANUAL DIFF NOT INDICATED [facility] RBC MORPH NOT INDICATED [facility] spital ID Date Data Source [id number] 03/26/2020 09:52:00 AM EST [facility] [address] [place] [address] PROGRESS NOTENAME: ANNA Medina ROOM#: [id number] OF : 1940 MR#: [id number] DATE: 03/25/20 OF SERVICE: 03/26/2020SUBJECTIVE:This patient came [...] rce(s) Supporting Document(s) ID Date Data Source [id number] 03/25/2020 09:34:00 [place] [address] PROGRESS NOTENAME: ANNA Medina ROOM#: [id number] OF : 1940 MR#: [id number] DATE: 03/23/20 OF SERVICE: 03/25/2020SUBJECTIVE:Patient came with [...] is normal, there is no evidence of CA.4. We have add Diovan 40 mg daily as an ARBS inhibitor for congestive heart failure. See if a combination of Coreg and Diovan will work for the congestive heart failure. Ejection fraction is 40%.DD: Bolivar Sotomayor MD, PC 03/25/20 09:14DT: SSR 03/25/20 09:33DS: Bolivar Sotomayor MD, PC 03/27/20 09:20 [address] [place] [address] PROGRESS NOTENAME: ANNA Medina ROOM#: [id number] OF : 1940 MR#: [id number] DATE: 03/23/20 2 Name Value Range Interpretation Code Description Data Vivian rce(s) Supporting Document(s) ID Date Data Source [id number] 03/24/2020 09:11:00 [place] [address] PROGRESS NOTENAME: ANNA Medina ROOM#: [id number] OF : 1940 MR#: [id number] DATE: 03/23/20 OF SERVICE: 03/24/2020SUBJECTIVE:Patient came with [...] rce(s) Supporting Document(s) ID Date Data Source [id number] 03/27/2020 05:04:00 AM EST [facility] (Bolivar Sotomayor [...] (Bolivar Sotomayor MD) ID Date Data Source [id number] 03/27/2020 05:04:00 AM EST [facility] (Bolivar Sotomayor MD) Name Value Range Interpretation Code Description Data Vivian rce(s) Supporting Document(s) Laboratory test finding (navigational concept) Laboratory test result [facility] (Bolivar Sotomayor MD) COMPLETE BLOOD COUNT Laboratory test finding (navigational concept) 6.9 10^3/uL 4.2-11.0 [facility] (Bolivar Sotomayor MD) Laboratory test finding (navigational concept) 4.24 10^6/uL 4.20-5.40 [facility] (Bolivra Sotomayor MD) Laboratory test finding (navigational concept) [...] (Bolivar Sotomayor MD) ID Date Data Source [id number] 03/27/2020 07:33:00 AM [facility] Name Value Range Interpretation Code Description Data Vivian rce(s) Supporting Document(s) COMPREHENSIVE METABOLIC PANEL [facility] COMPREHENSIVE METABOLIC PANEL Sodium [Moles/volume] in Serum or Plasma 142 mEq/L 134 - 153 [facility] Potassium [Moles/volume] in Serum or Plasma 5.0 mEq/L 3.6 - 5.0 [facility] Chloride [Moles/volume] in Serum or Plasma 96 mEq/L 98 - 107 L [facility] Carbon dioxide, total [Moles/volume] in Serum or Plasma 41 MEQ/L 22 - 30 HH [facility] CALL/ READ BACK ALEIDA ON [facility] BY: CM [facility] DATE/TIME 03/27/20 1618 [facility] spital Glucose [Mass/volume] in Serum or Plasma 180 MG/DL 65 - 110 H [facility] BUN 34 MG/DL 7 - 21 H [facility] al Creatinine [Mass/volume] in Serum or Plasma 1.3 MG/DL 0.7 - 1.5 [facility] BUN/CREAT 26 8 - 27 [facility] al Protein [Mass/volume] in Serum or Plasma 6.0 G/DL 6.3 - 8.2 L [facility] Albumin [Mass/volume] in Serum or Plasma 3.7 G/DL 3.9 - 5.0 L [facility] Globulin [Mass/volume] in Serum by calculation 2.3 GM/DL 2.4 - 3.2 L [facility] A/G RATIO 1.6 0.8 - 2.0 [facility] Calcium [Mass/volume] in Serum or Plasma 9.8 MG/DL 8.4 - 10.2 [facility] Bilirubin.total [Mass/volume] in Serum or Plasma 1.1 MG/DL 0.2 - 1.3 [facility] Alkaline phosphatase [Enzymatic activity/volume] in Serum or Plasma 237 U/L 38 - 126 H [facility] Aspartate aminotransferase [Enzymatic activity/volume] in Serum or Plasma 20 U/L 5 - 40 [facility] Alanine aminotransferase [Enzymatic activity/volume] in Seru m or Plasma 16 U/L 7 - 56 [facility] Anion gap 3 in Serum or Plasma 5.0 mmol/L 8.0 - 16.0 L [facility] AGE 80 yrs [facility] NON-AA GFR 42 mL/min [facility] iggy AFR AMER GFR >60 [facility] Male GFR In terprentation 20-49 [...] >32 mL/min Normal ID Date Data Source [id number] 03/27/2020 06:33:00 AM EST [facility] Name Value Range Interpretation Code Description Data Vivian rce(s) Supporting Document(s) CBC W/AUTOMATED DIFF [facility] COMPLETE BLOOD COUNT Leukocytes [#/volume] in Blood by Automated count 6.9 10^3/uL 4.2 - 1 1.0 [facility] Erythrocytes [#/volume] in Blood by Automated count 4.24 10^6/uL 4. 20 - 5.40 [facility] Hemoglobin [Mass/volume] in Blood 13.2 g/dL 12.0 - 16.0 [facility] Hematocrit [Volume Fraction] of Blood by Automated count 40.5 % 3 7.0 - 47.0 [facility] Erythrocyte mean corpuscular volume [Entitic volume] by Auto mated count 95.5 fL 81.0 - 101 [facility] Erythrocyte mean corpuscular hemoglobin [Entitic mass] by Automated count 31.1 pg 27.0 - 34.0 [facility] Erythrocyte mean corpuscular hemoglobin concentration [Mass/volume] by Automated count 32.6 g/dL 31.0 - 36.0 [facility] Erythrocyte distribution width [Ratio] by Automated count 17.5 % 11.5 - 14.5 H [facility] Platelets [#/volume] in Blood by Automated count 156 10^3/uL 150 - 45 0 [facility] Platelet mean volume [Entitic volume] in Blood by Automated count 12.3 fL 7.4 - 10.4 H [facility] Neutrophils/100 leukocytes in Blood by Automated count 65.7 % 37. 0 - 80.0 [facility] Lymphocytes/100 leukocytes in Blood by Manual count 15.5 % 25.0 - 40.0 L [facility] Monocytes/100 leukocytes in Blood by Automated count 11.6 % 3.0 - 8.0 H [facility] Eosinophils/100 leukocytes in Blood by Automated count 6.5 % 0.0 - 7.0 [facility] Basophils/100 leukocytes in Blood by Automated count 0.6 % 0.0 - 2.5 [facility] %IG 0.1 % 0.0 - 0.0 H [facility] al %NRBC 0.0 % 0.0 - 0.0 [facility] al Neutrophils [#/volume] in Blood by Automated count 4.52 10^3/uL 2.00 - 6.90 [facility] Lymphocytes [#/volume] in Blood by Automated count 1.07 10^3/uL 0.60 - 3.40 [facility] Monocytes [#/volume] in Blood by Automated count 0.80 10^3/uL 0.00 - 0.90 [facility] Eosinophils [#/volume] in Blood by Automated count 0.45 10^3/uL 0.00 - 0.70 [facility] Basophils [#/volume] in Blood by Automated count 0.04 10^3/uL 0.00 - 0.20 [facility] #IG 0.01 10^3/uL 0.00 - 0.10 [facility] ospital #NRBC 0.00 10^3/uL 0.00 - 0.00 [facility] ospital MANUAL DIFF NOT INDICATED [facility] RBC MORPH NOT INDICATED [facility] spital ID Date Data Source [id number] 03/26/2020 02:12:00 PM EST [facility] [address] [place] [address] PHONE: [phone] FAX: [phone] Name .................. : ANNA Medina Acct Number.................. : [id number] ROOM. ................. : [facility] MR Number ................... : [id number] Stay type ............. : I/P Discharge Date......... ... : Admit Date ......... : 03/25/20 Admit Phys .................... : MANUEL ALIZE Date of ....... : 1940 Family Phys ................... : [employer] Phone .................. : [phone] Age ................................ : 80 Film# .................. .:[id number] Sex ................................. : F Unsigned transcriptions are preliminary reports and do not represent a medical or legal document CT THORAX W/O CONTRAST [id number] COMPLETE:03/25/20 10:48 JEFFREY [id number] (REASON FOR CHEST: CHF CT OF THE [...] 03/26/20 14:12, TDS Page 1 of 2 [place] [address] PHONE: [phone] FAX: [phone] Name .................. : ANNA Medina Acct Number.................. : [id number] ROOM. ................. : CCU1 Number ................... : [id number] Stay type ............. : I/P Discharge Date......... ... : Admit Date ......... : 03/25/20 Admit Phys .................... : MANUEL HERRMANN Date of ....... : 1940 Family Phys ................... : NAUN MTZ Phone .................. : [phone] Age ................................ : 80 Film# .................. .:[id number] Sex ................................. : F Unsigned transcriptions are preliminary reports and do not represent a medical or legal document CT THORAX W/O CONTRAST [id number] COMPLETE:03/25/20 10:48 JEFFREY [id number] (REASON FOR CHEST: CHF Transcribe Initials: DZ , Transcribe Date: 03/26/20 00:55, Dictation Date: Copy for: 002 MSP Copy for: 710 MED REC Page 2 of 2 Name Value Range Interpretation Code Description Data Vivian rce(s) Supporting Document(s) ID Date Data Source [id number] 03/26/2020 05:12:00 AM EST [facility] (Bolivar Sotomayor MD) Name Value Range Interpretation Code Description Data Vivian rce(s) Supporting Document(s) Laboratory test finding (navigational concept) 2.71 0 .93-1.23 Above high normal [facility] (Bolivar Sotomayor MD) \\BLDo\\INR INTERPRETATION\\BLDx\\ Therapeutic range for Coumadin and related oral anticoagulants. -International Normalized Ratio (INR): 2 .0 - 3.0 for Venous Thrombosis, Pulmonary Embolus, Tissue heart valves, Acute CA, Atrial Fibrillation, Valvular heart disease and recurrent Systemic Embolism. -International Normalized Ratio (INR): 2 .5 - 3.5 for Mechanical Prosthetic valve. Laboratory test finding (navigational concept) 29.2 s 1 1.0-15.5 Above high normal [facility] (Bolivar Sotomayor MD) ID Date Data Source [id number] 03/26/2020 05:12:00 AM EST [facility] (Bolivar Sotomayor [...] (Bolivar Sotomayor MD) ID Date Data Source [id number] 03/26/2020 05:12:00 AM EST [facility] (Bolivar Sotomayor [...] >32 mL/min Normal ID Date Data Source [id number] 03/26/2020 05:12:00 AM EST [facility] (Bolivar Sotomayor MD) Name Value Range Interpretation Code Description Data Vivian rce(s) Supporting Document(s) Natriuretic peptide.B prohormone N-Terminal [Mass/volu me] in Serum or Plasma 4552 pg/mL 0-450 Above high normal [facility] (Bolivar Sotomayor MD) ID Date Data Source [id number] 03/26/2020 05:12:00 AM EST [facility] (Bolivar Sotomayor [...] AVERAGE 11.04 6.14 ID Date Data Source [id number] 03/26/2020 05:12:00 AM EST [facility] (Bolivar Sotomayor MD) Name Value Range Interpretation Code Description Data Vivian rce(s) Supporting Document(s) Hemoglobin A1c/Hemoglobin.total in Blood 8.8 % 4.4-6.1 Above high normal [facility] (Bolivar Sotomayor MD) {A1] {HB] ID Date Data Source [id number] 03/26/2020 08:06:00 AM [facility] Name Value Range Interpretation Code Description Data Vivian rce(s) Supporting Document(s) Hemoglobin A1c/Hemoglobin.total in Blood 8.8 % 4.4 - 6.1 H [facility] {A1]{HB] ID Date Data Source [id number] 03/26/2020 08:06:00 AM [facility] Name Value Range Interpretation Code Description Data Vivian rce(s) Supporting Document(s) C[facility] LIPID PANEL Cholesterol [Mass/volume] in Serum or Plasma 99 MG/DL 131 - 200 L [facility] Deprecated Triglyceride [Mass/volume] in Serum or Plasma 110 MG/DL 3 5 - 160 [facility] HDL 31 MG/DL 29 - 86 [facility] Cholesterol in LDL [Mass/volume] in Serum or Plasma by Direc t assay 51 mg/dL 65 - 175 L [facility] Cholesterol.total/Cholesterol in HDL [Mass Ratio] in Serum o r Plasma 3.2 3.2 - 4.4 L [facility] LDL/HDL 1.65 1.47 - 3.22 [facility] CVE RISK CHOL/HDL LDL/HDLMEN: 1/2 AVERAGE 3.43 1.00 AVERAGE 4.97 3.55 2X AVERAGE 9.55 6.25 3X AVERAGE 23.99 7.99WOMEN: 1/2 AVERAGE 3.27 1.47 AVERAGE 4.44 3.22 2X AVERAGE 7.05 5.03 3X AVERAGE 11.04 6.14 ID Date Data Source [id number] 03/26/2020 07:15:00 AM EST [facility] Name Value Range Interpretation Code Description Data Vivian rce(s) Supporting Document(s) COMPREHENSIVE METABOLIC PANEL [facility] COMPREHENSIVE METABOLIC PANEL Sodium [Moles/volume] in Serum or Plasma 140 mEq/L 134 - 153 [facility] Potassium [Moles/volume] in Serum or Plasma 4.7 mEq/L 3.6 - 5.0 [facility] Chloride [Moles/volume] in Serum or Plasma 98 mEq/L 98 - 107 [facility] Carbon dioxide, total [Moles/volume] in Serum or Plasma 37 MEQ/L 22 - 30 H [facility] Glucose [Mass/volume] in Serum or Plasma 198 MG/DL 65 - 110 H [facility] BUN 36 MG/DL 7 - [address] [facility] Creatinine [Mass/volume] in Serum or Plasma 1.4 MG/DL 0.7 - 1.5 [facility] BUN/CREAT 26 8 - 27 [facility] al Protein [Mass/volume] in Serum or Plasma 5.8 G/DL 6.3 - 8.2 L [facility] Albumin [Mass/volume] in Serum or Plasma 3.6 G/DL 3.9 - 5.0 [facility] Globulin [Mass/volume] in Serum by calculation 2.2 GM/DL 2.4 - 3.2 L [facility] A/G RATIO 1.6 0.8 - 2.0 [facility] al Calcium [Mass/volume] in Serum or Plasma 9.6 MG/DL 8.4 - 10.2 [facility] Bilirubin.total [Mass/volume] in Serum or Plasma 1.0 MG/DL 0.2 - 1.3 [facility] Alkaline phosphatase [Enzymatic activity/volume] in Serum or Plasma 231 U/L 38 - 126 [facility] Aspartate aminotransferase [Enzymatic activity/volume] in Serum or Plasma 23 U/L 5 - 40 [facility] Alanine aminotransferase [Enzymatic activity/volume] in Seru m or Plasma 16 U/L 7 - 56 [facility] Anion gap 3 in Serum or Plasma 5.0 mmol/L 8.0 - 16.0 [facility] [address] [facility] G[facility] 38 mL/min [facility] AFR AMER GFR >60 [facility] Male GFR In terprentation 20-49 [...] >32 mL/min Normal ID Date Data Source [id number] 03/26/2020 07:15:00 AM [facility] Name Value Range Interpretation Code Description Data Vivian rce(s) Supporting Document(s) BNP 4552 PG/ML 0 - 450 H [facility] ID Date Data Source [id number] 03/26/2020 07:07:00 AM [facility] Name Value Range Interpretation Code Description Data Vivian rce(s) Supporting Document(s) CBC W/AUTOMATED DIFF [facility] COMPLETE BLOOD COUNT Leukocytes [#/volume] in Blood by Automated count 8.4 10^3/uL 4.2 - 1 1.0 [facility] Erythrocytes [#/volume] in Blood by Automated count 4.02 10^6/uL 4. 20 - 5.40 L [facility] Hemoglobin [Mass/volume] in Blood 12.4 g/dL 12.0 - 16.0 [facility] Hematocrit [Volume Fraction] of Blood by Automated count 38.2 % 3 7.0 - 47.0 [facility] Erythrocyte mean corpuscular volume [Entitic volume] by Auto mated count 95.0 fL 81.0 - 101 [facility] Erythrocyte mean corpuscular hemoglobin [Entitic mass] by Automated count 30.8 pg 27.0 - 34.0 [facility] Erythrocyte mean corpuscular hemoglobin concentration [Mass/volume] by Automated count 32.5 g/dL 31.0 - 36.0 [facility] Erythrocyte distribution width [Ratio] by Automated count 17.4 % 11.5 - 14.5 [facility] Platelets [#/volume] in Blood by Automated count 160 10^3/uL 150 - 45 0 [facility] Platelet mean volume [Entitic volume] in Blood by Automated count 12.0 fL 7.4 - 10.4 H [facility] Neutrophils/100 leukocytes in Blood by Automated count 67.7 % 37. 0 - 80.0 [facility] Lymphocytes/100 leukocytes in Blood by Manual count 15.1 % 25.0 - 40.0 L [facility] Monocytes/100 leukocytes in Blood by Automated count 11.0 % 3.0 - 8.0 [facility] Eosinophils/100 leukocytes in Blood by Automated count 5.5 % 0.0 - 7.0 [facility] Basophils/100 leukocytes in Blood by Automated count 0.5 % 0.0 - 2.5 [facility] %IG 0.2 % 0.0 - 0.0 H [facility] al %NRBC 0.0 % 0.0 - 0.0 [facility] Neutrophils [#/volume] in Blood by Automated count 5.68 10^3/uL 2.00 - 6.90 [facility] Lymphocytes [#/volume] in Blood by Automated count 1.27 10^3/uL 0.60 - 3.40 [facility] Monocytes [#/volume] in Blood by Automated count 0.92 10^3/uL 0.00 - 0.90 [facility] Eosinophils [#/volume] in Blood by Automated count 0.46 10^3/uL 0.00 - 0.70 [facility] Basophils [#/volume] in Blood by Automated count 0.04 10^3/uL 0.00 - 0.20 [facility] #IG 0.02 10^3/uL 0.00 - 0.10 [facility] H ospital #NRBC 0.00 10^3/uL 0.00 - 0.00 [facility] ospital MANUAL DIFF NOT INDICATED [facility] RBC MORPH NOT INDICATED [facility] Ho spital ID Date Data Source [id number] 03/26/2020 07:03:00 AM EST [facility] Name Value Range Interpretation Code Description Data Vivian rce(s) Supporting Document(s) Prothrombin time (PT) 29.2 SECONDS 11.0 - 15.5 [facility] INR in Platelet poor plasma by Coagulation assay 2.71 0.93 - 1. 23 [facility] \\BLDo\\INR INTERPRETATION\\BLDx\\ Therapeutic range for Coumadin and related oral anticoagulants. - International Normalized Ratio (INR): 2.0 - 3.0 for Venous Thrombosis, Pulmonary Embolus, Tissue heart valves, Acute CA, Atrial Fibrillation, Valvular heart disease and recurrent Systemic Embolism. -International Normalized Ratio (INR): 2.5 - 3.5 for Mechanical Prosthetic valve. ID Date Data Source [id number] 03/25/2020 05:10:00 AM EST [facility] (Bolivar Sotomayor [...] >32 mL/min Normal ID Date Data Source [id number] 03/25/2020 05:10:00 AM EST [facility] (Bolivar Sotomayor [...] (Bolivar Sotomayor MD) ID Date Data Source [id number] 03/25/2020 05:10:00 AM EST [facility] (Bolivar Sotomayor [...] Thrombosis, Pulmonary Embolus, Tissue heart valves, Acute CA, Atrial Fibrillation, Valvular heart disease and recurrent Systemic Embolism. -International Normalized Ratio (INR): 2 .5 - 3.5 for Mechanical Prosthetic valve. ID Date Data Source [id number] 03/25/2020 07:31:00 AM EST [facility] Name Value Range Interpretation Code Description Data Vivian rce(s) Supporting Document(s) CBC W/AUTOMATED DIFF [facility] COMPLETE BLOOD COUNT Leukocytes [#/volume] in Blood by Automated count 11.9 10^3/uL 4.2 - 11.0 [facility] Erythrocytes [#/volume] in Blood by Automated count 4.18 10^6/uL 4. 20 - 5.40 [facility] Hemoglobin [Mass/volume] in Blood 13.1 g/dL 12.0 - 16.0 [facility] Hematocrit [Volume Fraction] of Blood by Automated count 39.7 % 3 7.0 - 47.0 [facility] Erythrocyte mean corpuscular volume [Entitic volume] by Auto mated count 95.0 fL 81.0 - 101 [facility] Erythrocyte mean corpuscular hemoglobin [Entitic mass] by Automated count 31.3 pg 27.0 - 34.0 [facility] Erythrocyte mean corpuscular hemoglobin concentration [Mass/volume] by Automated count 33.0 g/dL 31.0 - 36.0 [facility] Erythrocyte distribution width [Ratio] by Automated count 17.5 % 11.5 - 14.5 [facility] Platelets [#/volume] in Blood by Automated count 175 10^3/uL 150 - 45 0 [facility] Platelet mean volume [Entitic volume] in Blood by Automated count 12.5 fL 7.4 - 10.4 [facility] Neutrophils/100 leukocytes in Blood by Automated count 84.6 % 37. 0 - 80.0 [facility] Lymphocytes/100 leukocytes in Blood by Manual count 7.4 % 25.0 - 40.0 L [facility] Monocytes/100 leukocytes in Blood by Automated count 7.6 % 3.0 - 8.0 [facility] Eosinophils/100 leukocytes in Blood by Automated count 0.0 % 0.0 - 7.0 [facility] Basophils/100 leukocytes in Blood by Automated count 0.1 % 0.0 - 2.5 [facility] %IG 0.3 % 0.0 - 0.0 [facility] al %NRBC 0.0 % 0.0 - 0.0 [facility] al Neutrophils [#/volume] in Blood by Automated count 10.08 10^3/uL 2. 00 - 6.90 [facility] Lymphocytes [#/volume] in Blood by Automated count 0.88 10^3/uL 0.60 - 3.40 [facility] Monocytes [#/volume] in Blood by Automated count 0.90 10^3/uL 0.00 - 0.90 [facility] Eosinophils [#/volume] in Blood by Automated count 0.00 10^3/uL 0.00 - 0.70 [facility] Basophils [#/volume] in Blood by Automated count 0.01 10^3/uL 0.00 - 0.20 [facility] #IG 0.04 10^3/uL 0.00 - 0.10 [facility] ospital #NRBC 0.00 10^3/uL 0.00 - 0.00 [facility] ospital MANUAL DIFF NOT INDICATED [facility] RBC MORPH NOT INDICATED [facility] spital ID Date Data Source [id number] 03/25/2020 07:31:00 AM EST [facility] Name Value Range Interpretation Code Description Data Vivian rce(s) Supporting Document(s) COMPREHENSIVE METABOLIC PANEL [facility] COMPREHENSIVE METABOLIC PANEL Sodium [Moles/volume] in Serum or Plasma 142 mEq/L 134 - 153 [facility] Potassium [Moles/volume] in Serum or Plasma 4.4 mEq/L 3.6 - 5.0 [facility] Chloride [Moles/volume] in Serum or Plasma 97 mEq/L 98 - 107 [facility] Carbon dioxide, total [Moles/volume] in Serum or Plasma 39 MEQ/L 22 - 30 [facility] Glucose [Mass/volume] in Serum or Plasma 330 MG/DL 65 - 110 [facility] BUN 32 MG/DL 7 - 21 [facility] Creatinine [Mass/volume] in Serum or Plasma 1.3 MG/DL 0.7 - 1.5 [facility] BUN/CREAT 25 8 - 27 [facility] al Protein [Mass/volume] in Serum or Plasma 6.2 G/DL 6.3 - 8.2 L [facility] Albumin [Mass/volume] in Serum or Plasma 4.1 G/DL 3.9 - 5.0 [facility] Globulin [Mass/volume] in Serum by calculation 2.1 GM/DL 2.4 - 3.2 [facility] A/G RATIO 2.0 0.8 - 2.0 [facility] Calcium [Mass/volume] in Serum or Plasma 9.8 MG/DL 8.4 - 10.2 [facility] Bilirubin.total [Mass/volume] in Serum or Plasma 1.1 MG/DL 0.2 - 1.3 [facility] Alkaline phosphatase [Enzymatic activity/volume] in Serum or Plasma 244 U/L 38 - 126 [facility] Aspartate aminotransferase [Enzymatic activity/volume] in Serum or Plasma 27 U/L 5 - 40 [facility] Alanine aminotransferase [Enzymatic activity/volume] in Seru m or Plasma 17 U/L 7 - 56 [facility] Anion gap 3 in Serum or Plasma 6.0 mmol/L 8.0 - 16.0 [facility] AGE [address] [facility] NON-AA GFR 42 mL/min [facility] AFR AMER GFR >60 [facility] Male GFR In terprentation 20-49 [...] >32 mL/min Normal ID Date Data Source [id number] 03/25/2020 06:45:00 AM [facility] Name Value Range Interpretation Code Description Data Vivian rce(s) Supporting Document(s) Prothrombin time (PT) 28.2 SECONDS 11.0 - 15.5 [facility] INR in Platelet poor plasma by Coagulation assay 2.60 0.93 - 1. 23 [facility] \\BLDo\\INR INTERPRETATION\\BLDx\\ Therapeutic range for Coumadin and related oral anticoagulants. - International Normalized Ratio (INR): 2.0 - 3.0 for Venous Thrombosis, Pulmonary Embolus, Tissue heart valves, Acute CA, Atrial Fibrillation, Valvular heart disease and recurrent Systemic Embolism. -International Normalized Ratio (INR): 2.5 - 3.5 for Mechanical Prosthetic valve. ID Date Data Source [id number] 03/24/2020 07:38:00 [place] [address] RESPIRATORY CARE REPORT ==== ---------NAME------- NUMBER SEX AGE ADMIT DISC. XRAY# F/C BRENNON Meidna [id number] F 80 03/23/20 [id number] MB4 O/P DATE OF : 1940 M/R# [id number] #: [id number] CCU1 LOCATION: EMERGENCY DEPT EKG [id number] COMPLET E:03/24/20 01:08 GLENDA 19657 PHYSICIAN: MANUEL CHAVEZ Name Value Range Interpretation Code Description Data Vivian rce(s) Supporting Document(s) ID Date Data Source [id number] 03/24/2020 01:37:00 [place] [address] HISTORY AND PHYSICALNAME: ANNA Medina ROOM#: [id number] OF : 1940 MR#: [id number] PHYS: Bolivar Sotomayor MD, PC DATE: 03/23/20CHIEF [...] of hysterectomy 5. Cardiac pacemakerHOME MEDICATIONS: [address] [place] [address] HISTORY AND PHYSICALNAME: ANNA Medina ROOM#: [id number] OF : 1940 MR#: [id number] PHYS: Bolivar Sotomayor MD, PC DATE: 03/23/20 [...] pressure is 155/68. Pulse 61. Respirations 20. [id number] on 2 liters is 92%.HEENT: Pupils equal [...] retraction.HEART: Regular.ABDOMEN: Benign. Bowel sounds positive. [address] [place] [address] HISTORY AND PHYSICALNAME: ANNA Medina ROOM#: [id number] OF : 1940 M R#: [id number] PHYS: Bolivar Sotomayor MD, PC DATE: 03/23/20GU/RECTAL: [...] rce(s) Supporting Document(s) ID Date Data Source [id number] 03/24/2020 03:46:00 [place] [address] PHONE: [phone] FAX: [phone] Name .................. : ANNA ALLEN Carol Acct Number.................. : [id number] ROOM. ................. : CCU1 MR Number ................... : [id number] Stay type ............. : O/P Discharge Date......... ... : Admit Date ......... : 03/23/20 Admit Phys .................... : MANUEL ALIZE Date of ....... : 1940 Family Phys ................... : NAUN MTZ Phone .................. : [phone] Age ................................ : 80 Film# .................. .:[id number] Sex ................................. : F Unsigned transcriptions are preliminary reports and do not represent a medical or legal document CHEST PORTABLE [id number] COMPLETE:03/23/20 15:25 [facility] [place] [address] Reason(s): CHF PORTABLE CHEST X- RAY: INDICATION: [...] rce(s) Supporting Document(s) ID Date Data Source [id number] 03/24/2020 09:28:00 AM EST [facility] (Bolivar Sotomayor MD) Name Value Range Interpretation Code Description Data Vivian rce(s) Supporting Document(s) Troponin T.cardiac [Mass/volume] in Serum or Plasma Laborato ry test result 0.00-0.10 [facility] (Bolivar Sotomayor MD) TROPONIN T 0.1 ng/ml Recommended as the clinical th reshold value for Troponin T. ID Date Data Source [id number] 03/24/2020 10:11:00 AM EST [facility] Name Value Range Interpretation Code Description Data Vivian rce(s) Supporting Document(s) TROPONIN T <0.01 NG/ML 0.00 - 0.10 [facility] ospital TROPONIN T0.1 ng/ml Recommended as the c linical threshold value forTroponin T. ID Date Data Source [id number] 03/24/2020 03:51:00 AM EST [facility] (Bolivar Sotomayor MD) Name Value Range Interpretation Code Description Data Vivian rce(s) Supporting Document(s) Troponin T.cardiac [Mass/volume] in Serum or Plasma Laborato ry test result 0.00-0.10 [facility] (Bolivar Sotomayor MD) TROPONIN T 0.1 ng/ml Recommended as the clinical th reshold value for Troponin T. ID Date Data Source [id number] 03/24/2020 03:51:00 AM EST [facility] (Bolivar Sotomayor [...] (Bolivar Sotomayor MD) ID Date Data Source [id number] 03/24/2020 03:51:00 AM EST [facility] (Bolivar Sotomayor [...] (Bolivar Sotomayor MD) ID Date Data Source [id number] 03/24/2020 03:51:00 AM EST [facility] (Bolivar Sotomayor MD) Name Value Range Interpretation Code Description Data Vivian rce(s) Supporting Document(s) Magnesium [Mass/volume] in Serum or Plasma 2.0 mg/dL 1.7-2.2 [facility] (Bolivar Sotomayor MD) ID Date Data Source [id number] 03/24/2020 03:51:00 AM EST [facility] (Bolivar Sotomayor [...] Thrombosis, Pulmonary Embolus, Tissue heart valves, Acute CA, Atrial Fibrillation, Valvular heart disease and recurrent Systemic Embolism. -International Normalized Ratio (INR): 2 .5 - 3.5 for Mechanical Prosthetic valve. ID Date Data Source [id number] 03/24/2020 03:51:00 AM EST [facility] (Bolivar Sotomayor [...] finding (navigational concept) 0.72 10^3/uL 0.60-3.40 [facility] (Boliavr Sotomayor MD) Laboratory test finding [...] (Bolivar Sotomayor MD) ID Date Data Source [id number] 03/24/2020 05:01:00 AM [facility] Value Range Interpretation Code Description Data Vivian rce(s) Supporting Document(s) Thyrotropin [Units/volume] in Serum or Plasma by Detec tion limit <= 0.05 mIU/L 2.39 uIU/mL 0.47 - 5.01 [facility] ID Date Data Source [id number] 03/24/2020 05:01:00 AM [facility] Value Range Interpretation Code Description Data Vivian rce(s) Supporting Document(s) BNP 7929 PG/ML 0 - [address] [facility] ID Date Data Source [id number] 03/24/2020 05:01:00 AM [facility] Value Range Interpretation Code Description Data Vivian rce(s) Supporting Document(s) Thyroxine (T4) free index in Serum or Plasma by calculation 1.43 NG/DL 0.93 - 1.70 [facility] ID Date Data Source [id number] 03/24/2020 05:01:00 AM EST [facility] Name Value Range Interpretation Code Description Data Vivian rce(s) Supporting Document(s) TROPONIN T <0.01 NG/ML 0.00 - 0.10 [facility] ospital TROPONIN T0.1 ng/ml Recommended as the c linical threshold value forTroponin T. ID Date Data Source [id number] 03/24/2020 04:21:00 AM [facility] Name Value Range Interpretation Code Description Data Vivian rce(s) Supporting Document(s) BASIC METABOLIC PANEL [facility] BASIC METABOLIC PANEL Sodium [Moles/volume] in Serum or Plasma 140 mEq/L 134 - 153 [facility] Potassium [Moles/volume] in Serum or Plasma 3.4 mEq/L 3.6 - 5.0 L [facility] Chloride [Moles/volume] in Serum or Plasma 97 mEq/L 98 - 107 L [facility] Carbon dioxide, total [Moles/volume] in Serum or Plasma 37 MEQ/L 22 - 30 H [facility] Glucose [Mass/volume] in Serum or Plasma 216 MG/DL 65 - 110 H [facility] BUN 27 MG/DL 7 - 21 H [facility] al Creatinine [Mass/volume] in Serum or Plasma 1.3 MG/DL 0.7 - 1.5 [facility] BUN/CREAT 21 8 - 27 [facility] Calcium [Mass/volume] in Serum or Plasma 8.8 MG/DL 8.4 - 10.2 [facility] Anion gap 3 in Serum or Plasma 6.0 mmol/L 8.0 - 16.0 L [facility]GE [address] [facility] AFR AMER GFR >60 [facility] NON-AA GFR 42 mL/min [facility] Male GFR Inter prentation 20-49 yrs [...] >32 mL/min Normal ID Date Data Source [id number] 03/24/2020 04:21:00 AM [facility] Name Value Range Interpretation Code Description Data Vivain rce(s) Supporting Document(s) Magnesium [Mass/volume] in Serum or Plasma 2.0 MG/DL 1.7 - 2.2 [facility] ID Date Data Source [id number] 03/24/2020 04:04:00 AM [facility] Name Value Range Interpretation Code Description Data Vivian rce(s) Supporting Document(s) Prothrombin time (PT) 23.5 SECONDS 11.0 - 15.5 [facility] INR in Platelet poor plasma by Coagulation assay 2.06 0.93 - 1. 23 H [facility] \\BLDo\\INR INTERPRETATION\\BLDx\\ Therapeutic range for Coumadin and related oral anticoagulants. - International Normalized Ratio (INR): 2.0 - 3.0 for Venous Thrombosis, Pulmonary Embolus, Tissue heart valves, Acute CA, Atrial Fibrillation, Valvular heart disease and recurrent Systemic Embolism. -International Normalized Ratio (INR): 2.5 - 3.5 for Mechanical Prosthetic valve. ID Date Data Source [id number] 03/24/2020 03:56:00 AM [facility] Name Value Range Interpretation Code Description Data Vivian rce(s) Supporting Document(s) CBC W/AUTOMATED DIFF [facility] COMPLETE BLOOD COUNT Leukocytes [#/volume] in Blood by Automated count 9.0 10^3/uL 4.2 - 1 1.0 [facility] Erythrocytes [#/volume] in Blood by Automated count 4.16 10^6/uL 4. 20 - 5.40 L [facility] Hemoglobin [Mass/volume] in Blood 12.9 g/dL 12.0 - 16.0 [facility] Hematocrit [Volume Fraction] of Blood by Automated count 39.1 % 3 7.0 - 47.0 [facility] Erythrocyte mean corpuscular volume [Entitic volume] by Auto mated count 94.0 fL 81.0 - 101 [facility] Erythrocyte mean corpuscular hemoglobin [Entitic mass] by Automated count 31.0 pg 27.0 - 34.0 [facility] Erythrocyte mean corpuscular hemoglobin concentration [Mass/volume] by Automated count 33.0 g/dL 31.0 - 36.0 [facility] Erythrocyte distribution width [Ratio] by Automated count 17.4 % 11.5 - 14.5 H [facility] Platelets [#/volume] in Blood by Automated count 152 10^3/uL 150 - 45 0 [facility] Platelet mean volume [Entitic volume] in Blood by Automated count 11.5 fL 7.4 - 10.4 H [facility] Neutrophils/100 leukocytes in Blood by Automated count 90.6 % 37. 0 - 80.0 H [facility] Lymphocytes/100 leukocytes in Blood by Manual count 8.0 % 25.0 - 40.0 L [facility] Monocytes/100 leukocytes in Blood by Automated count 0.8 % 3.0 - 8.0 L [facility] Eosinophils/100 leukocytes in Blood by Automated count 0.3 % 0.0 - 7.0 [facility] Basophils/100 leukocytes in Blood by Automated count 0.0 % 0.0 - 2.5 [facility] %IG 0.3 % 0.0 - 0.[address] [facility] %NRBC 0.0 % 0.0 - 0.0 [facility] al Neutrophils [#/volume] in Blood by Automated count 8.15 10^3/uL 2.00 - 6.90 H [facility] Lymphocytes [#/volume] in Blood by Automated count 0.72 10^3/uL 0.60 - 3.40 [facility] Monocytes [#/volume] in Blood by Automated count 0.07 10^3/uL 0.00 - 0.90 [facility] Eosinophils [#/volume] in Blood by Automated count 0.03 10^3/uL 0.00 - 0.70 [facility] Basophils [#/volume] in Blood by Automated count 0.00 10^3/uL 0.00 - 0.20 [facility] #IG 0.03 10^3/uL 0.00 - 0.10 [facility] #NRBC 0.00 10^3/uL 0.00 - 0.00 [facility] osp[facility] MANUAL DIFF NOT INDICATED [facility] RBC MORPH NOT INDICATED [facility] Ho spital ID Date Data Source [id number] 03/24/2020 12:38:00 AM EST [facility] (Bolivar Sotomayor MD) Name Value Range Interpretation Code Description Data Vivian rce(s) Supporting Document(s) Potassium [Moles/volume] in Serum or Plasma 3.7 meq/L 3.6-5.0 [facility] (Bolivar Sotomayor MD) can run on blood just drawn for mag leve l ID Date Data Source [id number] 03/24/2020 12:59:00 AM EST [facility] Name Value Range Interpretation Code Description Data Vivian rce(s) Supporting Document(s) Potassium [Moles/volume] in Serum or Plasma 3.7 mEq/L 3.6 - 5.0 [facility] ID Date Data Source [id number] 03/23/2020 10:00:00 PM EST [facility] (Bolivar Sotomayor MD) Name Value Range Interpretation Code Description Data Vivian rce(s) Supporting Document(s) Magnesium [Mass/volume] in Serum or Plasma 2.1 mg/dL 1.7-2.2 [facility] (Bolivar Stoomayor MD) ID Date Data Source [id number] 03/23/2020 11:12:00 PM [facility] Name Value Range Interpretation Code Description Data Vivian rce(s) Supporting Document(s) Magnesium [Mass/volume] in Serum or Plasma 2.1 MG/DL 1.7 - 2.2 [facility] ID Date Data Source [id number] 03/23/2020 09:08:00 PM EST [facility] (Bolivar Sotomayor MD) Name Value Range Interpretation Code Description Data Vivian rce(s) Supporting Document(s) Troponin T.cardiac [Mass/volume] in Serum or Plasma Laborato ry test result 0.00-0.10 [facility] (Bolivar Sotomayor MD) TROPONIN T 0.1 ng/ml Recommended as the clinical th reshold value for Troponin T. ID Date Data Source [id number] 03/23/2020 09:51:00 PM [facility] Name Value Range Interpretation Code Description Data Vivian rce(s) Supporting Document(s) TROPONIN T <0.01 NG/ML 0.00 - 0.10 [facility] ospital TROPONIN T0.1 ng/ml Recommended as the c linical threshold value forTroponin T. ID Date Data Source [id number] 03/23/2020 02:25:00 PM [facility] 1 OrderSheet [facility] Emergency Department [address] [place] [address] Phone #: ext- [phone] 03/23/2020 14:17 Patient: JOY DENT Sex: F : 1940 Age: 80yWEIGHT:101.1 kg (M) HEIGHT:61 inches (S) BMI:42.1 STATUS:NoALLERGIES: Aloe, PCN, PenicillinsCHIEF COMPLAINT: dyspnea, COPD, CHFDIAGNOSIS: Congestive heart failureLAB ORDERSOrder Description Priority Entered Acknowledged InitialedCBC w Diff STAT 14:44 03/23/2020 14:49 Siria Mccarthy cell biologistGiovanni Hatch M.D.; [id number] STAT 14:44 03/23/2020 14:49 Siria Mccarthy cell biologistGiovanni Hatch M.D.; [id number] STAT 14:44 03/23/2020 14:49 Alex Evans [facility] Giovanni Hatch M.D.; Gluy8KM/PTT STAT 14:44 03/23/2020 14:49 Siria Mccarthy cell biologistGiovanni Hatch M.D.; Wasd2Urlmdryn-H STAT 14:44 03/23/2020 14:49 [facility]Mart[facility] Hospitalcell biologistGiovanni Hatch M.D.; [id number] STAT 14:44 03/23/2020 14:49 Siria Mccarthy cell biologistGiovanni Hatch M.D.; [id number] STUDY ORDERSOrder Description Priority Entered Acknowledged InitialedChest Portable 1 STAT 14:44 03/23/2020 14:49 Kp Long (Oxygen? Siria Evans R.N.(Yes)) Brenda; Reason for Study: CHF, COPD, Shortness of BreathMEDICATION/IV/DRIP/FLUID ORDERSOrder Description Priority Entered Acknowledged InitialedDuoNeb Neb Tx 3 14:44 03/23/2020 15:08 Chinmay Long Riccardo John R.N. M.D.; 2 OrderSheet [facility] Emergency Department [address] [place] [address] Phone #: ext- [phone] 03/23/2020 14:17 Patient: [...] Pressure 14:44 03/23/2020 14:49 [facility] Siria Evans cell biologistGiovanni M.D.; [id number] Monitor 14:44 03/23/2020 14:49 Alex(continuous) Siria Evans cell biologistGiovanni M.D.; Felc5RXN 14:44 03/23/2020 14:49 [place] Vineet EvansMartins Ferry Hospitalcell biologistGiovanni M.D.; [id number] 14:44 03/23/2020 14:49 [place] Priec Siria cell biologistGiovanni M.D.; Bqpl2Hefkak Old EKG 14:44 03/23/2020 14:49 [place] Vineet Evansdo cell biologistGiovanni M.D.; [id number] Old Records 14:44 03/23/2020 14:49 [place] Price Siria cell biologist, Giovanni OTERO M.D.; Waiv9Vsvhop (2 L/min) 14:44 03/23/2020 14:49 Alex(NC) (Titrate to O2 Price Siria cell biologistGiovanni ERSat >92%) Brenda; Bmjl2Fnfywt titrate to 14:44 03/23/2020 14:49 Sseafxq21% Vineet Evansdo cell biologistGiovanni M.D.; Qjwm3Yeeck oximeter 14:44 03/23/2020 14:49 [place](Continuous) Siria Evans cell biologistJemGiovanni ER 3 OrderSheet [facility] Emergency Department [address] [place] [address] Phone #: ext- [phone] 03/23/2020 14:17 Patient: JOY DENT Sex: F : 1940 Age: 80y M.D.; Fhbq9Knrjzy Lock 14:44 03/23/2020 14:50 Price Long Riccardo John R.N. M.D.;Vitals 14:44 03/23/2020 14:49 Siria Mccarthy cell biologistGiovanni M.D.; Cxag8Fblqozw - 16:48 03/23/2020 16:56 BurnhamCardiologist Siria Evans cell biologistGiovanni Hatch M.D.; Tech1[Electronically signed by Srinivas Long R.N. (20:25 03/23/2020)][Electronically signed by Siria Evans M.D. (20:36 03/23/2020)][Electronically locked by Srinivas Long R.N. (20:25 03/23/2020)] Name Value Range Interpretation Code Description Data Vivian rce(s) Supporting Document(s) ID Date Data Source [id number] 03/23/2020 02:25:00 PM EST [facility] 1 Medication Reconciliation Report [facility] Emergency Department [address] [place] [address] Phone #: ext- [phone] 03/23/2020 14:17 Patient: [...] 1 tablet, daily 2 Medication Reconciliation Report [facility] Emergency Department [address] [place] [address] Phone #: ext- [phone] 03/23/2020 14:17 [id number] 1940 Age: 80y Vitamin [...] rce(s) Supporting Document(s) ID Date Data Source [id number] 03/23/2020 02:25:00 PM EST [facility] 1 Medication Administration Record [facility] Emergency Department [address] [place] [address] Phone #: ext- [phone] 03/23/2020 14:17 Patient: [...] #1 right forearmGiven NITROGLYCERIN [TOPICAL OINTMENT] NitroGLYCERIN Apqfstf41:25 03/23/2020 Dose: 0.5 in. Topical Ointment 0.5 in.Sol Guy RNGiven LASIX [IVP] Lasix IVP 40 mg15:25 03/23/2020 Dose: 40 mg IVPBSol lyles RN Site: #1 right forearmGiven NITROGLYCERIN [TOPICAL OINTMENT] NitroGLYCERIN Ihfudzo68:07 03/23/2020 Dose: 1 in. Ointment Topical Ointment 1 in.Srinivas Long R.N. Name Value Range Interpretation Code Description Data Vivian rce(s) Supporting Document(s) ID Date Data Source [id number] 03/23/2020 02:25:00 PM EST [facility] 1 General Instructions [facility] Emergency Department [address] [place] [address] Phone #: ext- [phone] 03/23/2020 14:17 Patient: JOY DENT Sex: F : 1940 Age: 80yAcute mild systolic, left ventricular congestive heart failure.(Electronically signed by Siria Evans M.D. 03/23/2020 20:36) Name Value Range Interpretation Code Description Data Vivian rce(s) Supporting Document(s) ID Date Data Source [id number] 03/23/2020 02:25:00 PM EST [facility] 1 Clinical Report - Nurses [facility] Emergency Department [address] [place] [address] Phone #: [phone]- [phone] 03/23/2020 14:17 Patient: JOY DENT Sex: F [...] Rose RN.Allergies 2 Clinical Report - Nurses [facility] Emergency Department [address] [place] [address] Phone #: ext- [phone] 03/23/2020 14:17 [id number] Sex: F : 1940 Age: 80yPCN. --14:21 [...] integrity risk 3 Clinical Report - Nurses [facility] Emergency Department [address] [place] [address] Phone #: ext- [phone] 03/23/2020 14:17 Patient: [...] to the ED physician. . --14:27 03/23/20 [facility] Giovanni Hatch ER TechThomas 14:57 03/23/2020 Site [...] taking this 4 Clinical Report - Nurses [facility] Emergency Department [address] [place] [address] Phone #: ext- [phone] 03/23/2020 14:17 [id number] Sex[facility] F : 1940 Age: 80y medication. [...] deferred. Pain level now: 0/10. --18:24 03/23/20 [place] cell biologist, Giovanni, ER Tech1 Reassurance given to the [...] Long R.N. 5 Clinical Report - Nurses [facility] Emergency Department [address] [place] [address] Phone #: ext- [phone] 03/23/2020 14:17 Patient: JOY DENT Sex: F : 1940 Age: 80y Name Value Range Interpretation Code Description Data Vivian rce(s) Supporting Document(s) ID Date Data Source [id number] 03/23/2020 02:25:00 PM EST [facility] 1 Clinical Report - Physicians/Mid Levels [facility] Emergency Department [address] [place] [address] Phone #: ext- [phone] 03/23/2020 14:17 Patient: [...] Cholecystectomy. 2 Clinical Report - Physicians/Mid Levels [facility] Emergency Department [address] [place] [address] Phone #: ext- [phone] 03/23/2020 14:17 Patient: [...] normal. 3 Clinical Report - Physicians/Mid Levels [facility] Emergency Department [address] [place] [address] Phone #: ext- [phone] 03/23/2020 14:17 Patient: [...] PANEL 4 Clinical Report - Physicians/Mid Levels [facility] Department [address] [place] [address] Phone #: ext- [phone] 03/23/2020 14:17 [id number] Sex: F : 1940 Age: 80y SODIUM [...] Male GFR Interprentation 20-49 yrs >60 mL/min Rdokjh10-77 yrs >56 mL/min Normal 60-69 yrs >49 mL/min Normal 70-79yrs>42 mL/min Normal 80 and above >35 mL/min Normal Female GFRInterpretation 20-39 yrs >60 mL/min Normal 40-49 yrs >58 mL/minNormal 50-59 yrs >51 mL/min Normal 60-69 yrs >45 mL/min Rxjwmw06-53 yrs >39 mL/min Normal 80 and above [...] VenousThrombosis, Pulmonary Embolus, Tissue heart valves, Acute CA Atrial Fibrillation, Valvular heart diseaseand recurrent Systemic Embolism. -International Normalized Ratio (INR): 2.5 - 3.5 forMechanical Prosthetic valve.Troponin-T: (KATELYN: 03/23/2020 14:57) ( [facility] 03/23/2020 15:33) Final results Test Result Flag Units (Reference) TROPONIN T <0.01 NG/ML (0.00 - 0.10) TROPONIN T0.1 ng/ml Recommended as the clinical threshold value forTroponin T.BNP: (KATELYN: 03/23/2020 14:57) ( [facility] 03/23/2020 15:37) Final results Test Result Flag Units (Reference) BNP 5816 H PG/ML (0 - 450)Chest Portable 1 View: (KATELYN: 03/23/2020 14:44) [facility]25[facility] [place] 5 Clinical Report - Physicians/Mid Levels [facility] Emergency Department [address] [place] [address] Phone #: otb- [phone] 03/23/2020 14:17 Patient: JOY DENT Sex: F : 1940 Age: 80y Reason(s): CHF TRANSPORTATION: P IV? O2? Oxygen?(Yes) Room: E.PROGRESS AND PROCEDURESCourse of Care: 16:43 03/23/20. workup all in and reviewed, K slightly up, BNP elevated, 5816 today vs.3660 on 05-30-19, CXR shows CHF, we're treating accordingly, pt doing better, case discussed w , her lime trimmer, who will admit 17:12 03/23/20. Joselin Alegria, STORY TELLER hospitalist for Dr. Sotomayor, called back and [...] rce(s) Supporting Document(s) ID Date Data Source [id number] 03/23/2020 02:25:00 PM [facility] for JOY DENT RN: [id number] VisitID: [id number] Date: 17:22Medication reconciliation request foaxed to remote solutions.(Electronically signed by Ramses Richard - 03/23/2020 17:22) Name Value Range Interpretation Code Description Data Vivian rce(s) Supporting Document(s) ID Date Data Source [id number] 03/23/2020 03:37:00 PM [facility] Name Value Range Interpretation Code Description Data Vivian rce(s) Supporting Document(s) Lipase [Enzymatic activity/volume] in Serum or Plasma 18 U/L 13 - 60 [facility] ID Date Data Source [id number] 03/23/2020 03:37:00 PM EST [facility] Name Value Range Interpretation Code Description Data Vivian rce(s) Supporting Document(s) COMPREHENSIVE METABOLIC PANEL [facility] COMPREHENSIVE METABOLIC PANEL Sodium [Moles/volume] in Serum or Plasma 139 mEq/L 134 - 153 [facility] Potassium [Moles/volume] in Serum or Plasma 5.3 mEq/L 3.6 - 5.0 H [facility] Chloride [Moles/volume] in Serum or Plasma 95 mEq/L 98 - 107 L [facility] Carbon dioxide, total [Moles/volume] in Serum or Plasma 38 MEQ/L 22 - 30 H [facility] Glucose [Mass/volume] in Serum or Plasma 149 MG/DL 65 - 110 H [facility] BUN 25 MG/DL 7 - [address] [facility] Creatinine [Mass/volume] in Serum or Plasma 1.3 MG/DL 0.7 - 1.5 [facility] BUN/CREAT 19 8 - 27 [facility] al Protein [Mass/volume] in Serum or Plasma 6.0 G/DL 6.3 - 8.2 L [facility] Albumin [Mass/volume] in Serum or Plasma 3.7 G/DL 3.9 - 5.0 L [facility] Globulin [Mass/volume] in Serum by calculation 2.3 GM/DL 2.4 - 3.2 L [facility] A/G RATIO 1.6 0.8 - 2.0 [facility] Calcium [Mass/volume] in Serum or Plasma 9.0 MG/DL 8.4 - 10.2 [facility] Bilirubin.total [Mass/volume] in Serum or Plasma 1.5 MG/DL 0.2 - 1.3 H [facility] Alkaline phosphatase [Enzymatic activity/volume] in Serum or Plasma 237 U/L 38 - 126 H [facility] Aspartate aminotransferase [Enzymatic activity/volume] in Serum or Plasma 36 U/L 5 - 40 [facility] Alanine aminotransferase [Enzymatic activity/volume] in Seru m or Plasma 15 U/L 7 - 56 [facility] Anion gap 3 in Serum or Plasma 6.0 mmol/L 8.0 - 16.0 L [facility] AGE 80 yrs [facility] Hospit al NON-AA GFR 42 mL/min [facility] iggy AFR AMER GFR >60 [facility] pital Male GFR In terprentation 20-49 [...] >32 mL/min Normal ID Date Data Source [id number] 03/23/2020 03:37:00 PM [facility] Name Value Range Interpretation Code Description Data Vivian rce(s) Supporting Document(s) BNP 5816 PG/ML 0 - 450 [facility] ID Date Data Source [id number] 03/23/2020 03:33:00 PM [facility] Name Value Range Interpretation Code Description Data Vivian rce(s) Supporting Document(s) TROPONIN T <0.01 NG/ML 0.00 - 0.10 [facility] ospital TROPONIN T0.1 ng/ml Recommended as the c linical threshold value forTroponin T. ID Date Data Source [id number] 03/23/2020 03:19:00 PM [facility] Name Value Range Interpretation Code Description Data Vivian rce(s) Supporting Document(s) Prothrombin time (PT) 26.5 SECONDS 11.0 - 15.5 [facility] INR in Platelet poor plasma by Coagulation assay 2.40 0.93 - 1. 23 H [facility] aPTT in Blood by Coagulation assay 42.0 SECONDS 24.8 - 36.7 H [facility] \\BLDo\\INR INTERPRETATION\\BLDx\\ Therapeutic range for Coumadin and related oral anticoagulants. - International Normalized Ratio (INR): 2.0 - 3.0 for Venous Thrombosis, Pulmonary Embolus, Tissue heart valves, Acute CA Atrial Fibrillation, Valvular heart disease and recurrent Systemic Embolism. - International Normalized Ratio (INR): 2.5 - 3.5 for Mechanical Prosthetic valve. ID Date Data Source [id number] 03/23/2020 03:07:00 PM EST [facility] Name Value Range Interpretation Code Description Data Vivian rce(s) Supporting Document(s) CBC W/AUTOMATED DIFF [facility] COMPLETE BLOOD COUNT Leukocytes [#/volume] in Blood by Automated count 8.4 10^3/uL 4.2 - 1 1.0 [facility] Erythrocytes [#/volume] in Blood by Automated count 4.36 10^6/uL 4. 20 - 5.40 [facility] Hemoglobin [Mass/volume] in Blood 13.7 g/dL 12.0 - 16.0 [facility] Hematocrit [Volume Fraction] of Blood by Automated count 41.3 % 3 7.0 - 47.0 [facility] Erythrocyte mean corpuscular volume [Entitic volume] by Auto mated count 94.7 fL 81.0 - 101 [facility] Erythrocyte mean corpuscular hemoglobin [Entitic mass] by Automated count 31.4 pg 27.0 - 34.0 [facility] Erythrocyte mean corpuscular hemoglobin concentration [Mass/volume] by Automated count 33.2 g/dL 31.0 - 36.0 [facility] Erythrocyte distribution width [Ratio] by Automated count 17.7 % 11.5 - 14.5 H [facility] Platelets [#/volume] in Blood by Automated count 153 10^3/uL 150 - 45 0 [facility] Platelet mean volume [Entitic volume] in Blood by Automated count 11.6 fL 7.4 - 10.4 H [facility] Neutrophils/100 leukocytes in Blood by Automated count 74.0 % 37. 0 - 80.0 [facility] Lymphocytes/100 leukocytes in Blood by Manual count 13.7 % 25.0 - 40.0 L [facility] Monocytes/100 leukocytes in Blood by Automated count 8.5 % 3.0 - 8.0 H [facility] Eosinophils/100 leukocytes in Blood by Automated count 3.1 % 0.0 - 7.0 [facility] Basophils/100 leukocytes in Blood by Automated count 0.5 % 0.0 - 2.5 [facility] %IG 0.2 % 0.0 - 0.0 H [facility] al %NRBC 0.0 % 0.0 - 0.0 [facility] Neutrophils [#/volume] in Blood by Automated count 6.19 10^3/uL 2.00 - 6.90 [facility] Lymphocytes [#/volume] in Blood by Automated count 1.15 10^3/uL 0.60 - 3.40 [facility] Monocytes [#/volume] in Blood by Automated count 0.71 10^3/uL 0.00 - 0.90 [facility] Eosinophils [#/volume] in Blood by Automated count 0.26 10^3/uL 0.00 - 0.70 [facility] Basophils [#/volume] in Blood by Automated count 0.04 10^3/uL 0.00 - 0.20 [facility] #IG 0.02 10^3/uL 0.00 - 0.10 [facility] #NRBC 0.00 10^3/uL 0.00 - 0.00 [facility] MANUAL DIFF NOT INDICATED [facility] RBC MORPH NOT INDICATED [facility] Ho spital ID Date Data Source [id number] 03/10/2020 10:57:00 AM EST [facility] ([facility] Name Value Range Interpretation Code Description Data Vivian rce(s) Supporting Document(s) PT 25.4 SEC 10.0-14.0 Above high normal [facility] ([facility] NORMAL RANGES Routine Non- [...] - 4.5 Comment Laboratory test result [facility] ([facility] NORMAL RANGES Routine Non- Anticoagulant Therapy = 0.9 - 1.1 Routine Anticoagulat Therapy = 2.0 - 3.0 High Risk Anticoagulant Therapy = 3.0 - 4.5 Recommendations Laboratory test result [facility] ([facility] NORMAL RANGES Routine Non- Anticoagulant Therapy = 0.9 - 1.1 Routine Anticoagulat Therapy = 2.0 - 3.0 High Risk Anticoagulant Therapy = 3.0 - 4.5 ID Date Data Source [id number] 02/04/2020 11:16:00 AM EDT [facility] Name Value Range Interpretation Code Description Data Vivian rce(s) Supporting Document(s) Thyrotropin [Units/volume] in Serum or Plasma 3.625 ulU/mL 0.60-4.8 [facility] ID Date Data Source [id number] 02/04/2020 11:16:00 AM EDT [facility] ([facility] Name Value Range Interpretation Code Description Data Vivian rce(s) Supporting Document(s) Glucose [Mass/volume] in Serum or Plasma 96 mg/dL 70-110 [facility] ([facility] CLASSIFICATION CHOLESTEROL FO R ADULTS [...] 2-19 YEARS EXCLUSIVE. ID Date Data Source [id number] 02/04/2020 11:16:00 AM EDT [facility] ([facility] Name Value Range Interpretation Code Description Data Vivian rce(s) Supporting Document(s) Chol 88 mg/dL 0-200 [facility] ([facility] CLASSIFICATION CHOLESTEROL FO [...] YEARS EXCLUSIVE. Trig 87 mg/dL 40-200 [facility] ([facility] CLASSIFICATION CHOLESTEROL FO [...] Calc 75-129 Below low normal [facility] ( [facility] CLASSIFICATION CHOLESTEROL FO R [...] 33 mg/dL 45-65 Below low normal [facility] ([facility] ) CLASSIFICATION CHOLESTEROL FO [...] YEARS EXCLUSIVE. Cho/HDL Ratio 2.7 CALC [facility] ([facility] CLASSIFICATION CHOLESTEROL FO R ADULTS [...] 2-19 YEARS EXCLUSIVE. ID Date Data Source [id number] 02/04/2020 11:16:00 AM EDT [facility] ([facility] Name Value Range Interpretation Code Description Data Vivian rce(s) Supporting Document(s) Hemoglobin A1c/Hemoglobin.total in Blood 8.0 % 4.40-6.10 Above high normal [facility] ([facility] CLASSIFICATION CHOLESTEROL FO R [...] 2-19 YEARS EXCLUSIVE. ID Date Data Source [id number] 02/04/2020 11:15:00 AM EDT [facility] ([facility] Name Value Range Interpretation Code Description Data Vivian rce(s) Supporting Document(s) PT 30.2 SEC 10.0-14.0 Above high normal [facility] ([facility] NORMAL RANGES Routine Non- Anticoagulant Therapy = 0.9 - 1.1 Routine Anticoagulat Therapy = 2.0 - 3.0 High Risk Anticoagulant Therapy = 3.0 - 4.5 Inr 2.5 # 0.9-1.1 Above high normal [facility] NORMAL RANGES Routine Non- Anticoagulant Therapy = 0.9 - 1.1 Routine Anticoagulat Therapy = 2.0 - 3.0 High Risk Anticoagulant Therapy = 3.0 - 4.5 Recommendations Laboratory test result [facility] ([facility] NORMAL RANGES Routine Non- Anticoagulant Therapy = 0.9 - 1.1 Routine Anticoagulat Therapy = 2.0 - 3.0 High Risk Anticoagulant Therapy = 3.0 - 4.5 Comment Laboratory test result [facility] ([facility] NORMAL RANGES Routine Non- Anticoagulant Therapy = 0.9 - 1.1 Routine Anticoagulat Therapy = 2.0 - 3.0 High Risk Anticoagulant Therapy = 3.0 - 4.5 Procedure Social History Code Duration Value Status Description Data Source(s ) Smoking 02/15/2021 12:00:00 AM EDT Never Smoker completed Never S moker eCW1 ([facility]) Smoking 02/01/2021 12:00:00 AM EDT Never Smoker completed Never S moker eCW1 ([facility]) Smoking 02/01/2021 12:00:00 AM EDT Never Smoker completed Never S moker eCW1 ([facility]) Smoking 2021 12:00:00 AM EDT Patient has never smoked co mpleted Patient has never smoked [facility] ([facility]) Alcohol intake 12/17/2020 12:00:00 AM EDT Current non-d park of alcohol (finding) completed Current non-drinker of alcohol (finding) [facility] Smoking 11/27/2020 12:00:00 AM EDT Non-smoker, Non-drink er, Non-drug User completed Non-smoker, Non-drinker, Non-drug User [facility] ([facility]) Alcohol intake 09/14/2020 12:00:00 AM EDT Current non-d park of alcohol (finding) completed Current non-drinker of alcohol (finding) [facility] Alcohol intake 06/12/2020 12:00:00 AM EST No completed [facility] Smoking 06/12/2020 12:00:00 AM EST Never smoker completed Never s moker [facility] Smoking 01/09/2020 12:00:00 AM EDT Patient has never smoked co mpleted Patient has never smoked [facility] ([facility] ) Vital Signs ID Date Data Source UNK Name Value Range Interpretation Code Description Data Source(s) Respiratory rate 20 /min 20 /min eCW1 ([facility]) Body temperature 97.8 [degF] 97.8 [degF] eCW1 ( [facility]) Systolic blood pressure 146 mm[Hg] 146 mm[Hg] e CW1 ([facility]) Diastolic blood pressure 57 mm[Hg] 57 mm[Hg] eCW1 ([facility]) Body weight 189 [lb_av] 189 [lb_av] eCW1 ([facility]) Body weight 85.73 kg 85.73 kg W1 ([facility]) Body height 61 [in_i] 61 [in_i] eCW1 ([facility]) Body mass index (BMI) [Ratio] 35.71 kg/m2 35.71 kg/m2 eCW1 ([facility]) Heart rate 68 /min 68 /min eCW1 (Counts include 234 beds at the [facility]) Body weight 189 [lb_av] 189 [lb_av] eCW1 ([facility]) Body weight 85.73 kg 85.73 kg eCW1 ([facility]) Body height 61 [in_i] 61 [in_i] eCW1 ([facility]) Body mass index (BMI) [Ratio] 35.71 kg/m2 35.71 kg/m2 W1 ([facility]) Heart rate 76 /min 76 /min eCW1 (Counts include 234 beds at the [facility]) Respiratory rate 20 /min 20 /min eCW1 ([facility]) Body temperature 98.4 [degF] 98.4 [degF] eCW1 ( [facility]) Systolic blood pressure 93 mm[Hg] 93 mm[Hg] e CW1 ([facility]) Diastolic blood pressure 40 mm[Hg] 40 mm[Hg] eCW1 ([facility]) Body mass index (BMI) [Ratio] 34.0 kg/m2 34.0 k g/m2 [facility] ([facility]) Systolic blood pressure 125 mm[Hg] 125 mm[Hg] M EDENT ([facility]) Diastolic blood pressure 60 mm[Hg] 60 mm[Hg] [facility] ([facility]) Heart rate 64 /min 64 /min [facility] ([facility] Body height 61 [in_i] 61 [in_i] [facility] ([facility] 5'1" Body weight 180.00 [lb_av] 180.00 [lb_av] MEDEN T ([facility]) Body weight 81.648 kg 81.648 kg [facility] ([facility]) Systolic blood pressure 151 mm[Hg] 151 mm[Hg] [facility] Diastolic blood pressure 58 mm[Hg] 58 mm[Hg] [facility] Body temperature 37.11 Jadyn 37.11 Jadyn [facility] Heart rate 60 /min 60 /min [facility] Respiratory rate 18 /min 18 /min [facility] Oxygen saturation in Arterial blood by Pulse oximetry 99 % 99 % [facility] Oxygen saturation in Arterial blood by Pulse oximetry 99 % 99 % [facility] ([facility]) Respiratory rate 18 /min 18 /min [facility] ( [facility]) Heart rate 60 /min 60 /min [facility] ([facility] Body temperature 98.8 [degF] 98.8 [degF] [facility] ([facility]) Body height 154.9 cm 154.9 cm [facility] Body mass index (BMI) [Ratio] 34.03 kg/m2 34.03 kg/m2 [facility] Body weight 81.7 kg 81.7 kg [facility] Body height 60.98 [in_i] 60.98 [in_i] [facility] 5'0.98" Body weight 180.06 [lb_av] 180.06 [lb_av] MEDEN T ([facility]) Body weight 81.700 kg 81.700 kg [facility] ([facility] Body mass index (BMI) [Ratio] 34.03 kg/m2 34.03 kg/m2 [facility] ([facility]) Body height 60 [in_i] 60 [in_i] [facility] [...] pressure 108 mm[Hg] 108 mm[Hg] M EDENT ([facility]) Diastolic blood pressure 60 mm[Hg] 60 mm[Hg] [facility] ([facility]) Body height 58 [in_i] 58 [in_i] [facility] ([facility]) 4'10" Body weight 178.00 [lb_av] 178.00 [lb_av] MEDEN T ([facility]) Body surface area Derived from formula 1.73 m2 1.73 m2 [facility] ([facility]) Body mass index (BMI) [Ratio] 37.2 kg/m2 37.2 k g/m2 [facility] ([facility]) Body height 60 [in_i] 60 [in_i] [facility] [...] 90.720 kg [facility] ([facility] Body mass index (BMI) [Ratio] 37.8 kg/m2 [...] Systolic blood pressure 120 mm[Hg] 120 mm[Hg] [facility] Diastolic blood pressure 70 mm[Hg] 70 mm[Hg] [facility] Body temperature 36.67 Jadyn 36.67 Jadyn [facility] Respiratory rate 16 /min 16 /min [facility] Oxygen saturation in Arterial blood by Pulse oximetry 98 % 98 % [facility] Heart rate 62 /min 62 /min [facility] Body height 154.9 cm 154.9 cm [facility] Body weight 85.73 kg 85.73 kg [facility] Body mass index (BMI) [Ratio] 35.71 kg/m2 35.71 kg/m2 [facility] Body temperature 97.7 [degF] 97.7 [degF] [facility] (Bolivar Sotomayor MD) Systolic blood pressure 92 mm[Hg] 92 mm[Hg] M EDROSARIO (Bolivar Sotomayor MD) Diastolic blood pressure 68 mm[Hg] 68 mm[Hg] [facility] (Bolivar Sotomayor MD) Oxygen saturation in Arterial blood by Pulse oximetry 90 % 90 % [facility] (Bolivar Sotomayor MD) Heart rate 60 /min 60 /min [facility] (Bolivar Sotomayor MD) Body temperature 96.8 [degF] 96.8 [degF] MEDENT (Bolivar Sotomayor MD) Systolic blood pressure 131 mm[Hg] 131 mm[Hg] M EDENT (Bolivar Sotomayor MD) Diastolic blood pressure 61 mm[Hg] 61 mm[Hg] MEDENT (Bolivar Sotomayor MD) Oxygen saturation in Arterial blood by Pulse oximetry 93 % 93 % MEDENT (Bolivar Sotomayor MD) 2 L N/C Respiratory rate 20 /min 20 /min MEDENT ( Bolivar Sotomayor MD) Body height 60 [in_i] 60 [in_i] MEDENT (Bolivar Sotomayor MD) 5'0" Body weight 190.00 [lb_av] 190.00 [lb_av] MEDEN T (Bolivar Sotomayor MD) Body mass index (BMI) [Ratio] 37.1 kg/m2 37.1 k g/m2 MEDENT (Bolivar Sotomayor MD) Systolic blood pressure 220 mm[Hg] 220 mm[Hg] M EDENT ([facility]) NC/doppler Body temperature 96.5 [degF] 96.5 [degF] MEDENT ([facility]) Body height 61 [in_i] 61 [in_i] MEDENT ([facility]) 5'1" Body weight 184.00 [lb_av] 184.00 [lb_av] MEDEN T ([facility]) Body weight 83.462 kg 83.462 kg MED[facility] ([facility]) Body mass index (BMI) [Ratio] 34.8 kg/m2 34.8 k g/m2 MED[facility] ([facility]) Diastolic blood pressure 72 mm[Hg] 72 mm[Hg] MEDENT (Bolivar Sotomayor MD) Body weight 186.00 [lb_av] 186.00 [lb_av] MEDEN T (Bolivar Sotomayor MD) Body mass index (BMI) [Ratio] 36.3 kg/m2 36.3 k g/m2 MEDENT (Bolivar Sotomayor MD) Body temperature 97.7 [degF] 97.7 [degF] MEDENT (Bolivar Sotomayor MD) Systolic blood pressure 134 mm[Hg] 134 mm[Hg] M EDENT (Bolivar Sotomayor MD) Heart rate 61 /min [...] Systolic blood pressure 142 mm[Hg] 142 mm[Hg] [facility] pt moving arm during reading Diastolic blood pressure 106 mm[Hg] 106 mm[Hg] [facility] pt moving arm during reading Heart rate 60 /min 60 /min [facility] Body temperature 36.56 Jadyn 36.56 Jadyn [facility] Respiratory rate 18 /min 18 /min [facility] Oxygen saturation in Arterial blood by Pulse oximetry 91 % 91 % [facility] Respiratory rate 18 /min 18 [...] pressure 100 mm[Hg] 100 mm[Hg] M EDENT ([facility], ) Diastolic blood pressure 60 mm[Hg] 60 mm[Hg] MEDENT ([facility], ) Heart rate 64 /min 64 /min MEDENT ([facility], ) Respiratory rate 20 /min 20 /min MEDENT ( [facility], ) Respiratory rate 18 /min 18 /min MEDENT ( [facility] Systolic blood pressure 142 mm[Hg] 142 mm[Hg] M EDENT ([facility] Diastolic blood pressure 78 mm[Hg] 78 mm[Hg] MEDENT ([facility] Body temperature 98.4 [degF] 98.4 [degF] MEDENT ([facility] Heart rate 88 /min 88 /min MEDENT ([facility] Body height 61 [in_i] 61 [in_i] MEDENT ([facility] 5'1" Body weight 207.00 [lb_av] 207.00 [lb_av] MEDEN T ([facility] [place] body weight 105 [lb_av] 105 [lb_av] MEDEN T ([facility] Body mass index (BMI) [Ratio] 39.1 kg/m2 39.1 k g/m2 MEDENT ([facility] Oxygen saturation in Arterial blood by Pulse oximetry 93 % 93 % YARI ([facility] (On O2 @ 2 LPM NC) ID Date Data Source [id number] 10/26/2020 08:34:48 AM EDT [facility] Name Value Range Interpretation Code Description Data Source(s) WEIGHT RECORDED 197.90 pounds 197.90 pounds [facility] Height 61 Inches 061 Inches [facility] ID Date Data Source [id number] 06/02/2020 09:05:15 AM [facility] Name Value Range Interpretation Code Description Data Source(s) WEIGHT RECORDED 192.30 pounds 192.30 pounds [facility] Height 61 Inches 061 Inches [facility] WEIGHT RECORDED 203.40 pounds 203.40 pounds [facility] Height 61 Inches 061 Inches [facility] ID Date Data Source [id number] 04/07/2020 09:11:50 AM [facility] Name Value Range Interpretation Code Description Data Source(s) WEIGHT RECORDED 212.00 pounds 212.00 pounds [facility] Height 61 Inches 061 Inches [facility] WEIGHT RECORDED 221.00 pounds 221.00 pounds [facility] Height 61 Inches 061 Inches [facility] Patient Treatment Plan of Care Planned Activity Planned Date Details Description Data Source (s) Insulin Glargine 100 UNT/ML Injectable Solution [Lantu s] 12/19/2020 09:00:00 PM EDT [facility] Amoxicillin 875 MG / Clavulanate 125 MG Oral Tablet 12/20/19 12:00:00 AM EDT [facility] Oxycodone Hydrochloride 5 MG Oral Tablet 12/19/2020 12:00:00 AM EDT [facility] Acetaminophen 500 MG Oral Tablet 12/18/2020 11:00:00 AM EDT [facility] Nitroglycerin 0.4 MG Sublingual Tablet 12/17/2020 01:55:32 PM EDT [facility] Albuterol 0.83 MG/ML Inhalant Solution 12/17/2020 01:55:14 PM EDT [facility] Bisacodyl 10 MG Rectal Suppository 12/17/2020 01:18:58 PM EDT [facility] ondansetron (ZOFRAN) injection 4 mg 12/17/2020 01:18:58 PM EDT [facility] sodium chloride 0.9% (NS) infusion 09/14/2020 02:00:00 PM EDT [facility] torsemide 10 MG Oral Tablet [facility] quetiapine 25 MG Oral Tablet [facility]
--- NOTE | 2021-02-21 00:37 | REPVR ---
PROCEDURE INFORMATION: Exam: US Retroperitoneal Limited, Kidneys Exam date and time: 02/21/2021 12:31 AM Age: 81 years old Clinical indication: Abdominal pain; Acute; Additional info: Lucho TECHNIQUE: Imaging protocol: Real-time ultrasound of the retroperitoneum with image documentation. Examination was focused on the kidneys. COMPARISON: RENAL US 07/17/2014 2:06 PM FINDINGS: Right kidney: The right kidney measures 9.9 cm in length. Normal echogenicity. No hydronephrosis or stones. Left kidney: The left kidney measures 10.4 cm in length. Normal echogenicity. No hydronephrosis or stones. Trace degree of nonspecific hypoechoic perinephric fluid along the inferior pole the left kidney. Bladder: Unremarkable. IMPRESSION: 1. No sonographic evidence of hydronephrosis or nephrolithiasis. 2. Trace degree of nonspecific hypoechoic perinephric fluid along the inferior pole the left kidney. Electronically signed by: Renny Salazar On 02/21/2021 00:36:34 AM
[2021-02-21] MEDS ORDERED: PILL CUTTER 1 EACH XX PRN (02:00)
[2021-02-21] MEDS: HumaLOG INSULIN (NovoLOG) PER UNIT SC SCH ×5 (02:08→20:50)
[2021-02-21 06:39] LABS: BASO % 0.3 % (0.0-1.0); EOS % 0.1 % (0.0-3.0); HEMATOCRIT 31.9 % (36.0-47.0); HEMOGLOBIN 10.3 g/dl (12.0-15.5); LYMPH # 1.6 10^3/uL (1.5-5.0); LYMPH % 20.8 % (24.0-44.0); MEAN CORPUSCULAR HEMOGLOBIN 31.3 pg (27.0-33.0); MEAN CORPUSCULAR HGB CONC 32.3 g/dl (32.0-36.5); MONO % 12.8 % (2.0-8.0); NEUTROPHILS % 65.6 % (36.0-66.0); PLATELET COUNT, AUTOMATED 123 10^3/uL (150-450); RED BLOOD COUNT 3.29 10^6/uL (4.00-5.40); WHITE BLOOD COUNT 7.6 10^3/uL (4.0-10.0)
[2021-02-21 06:50] LABS: INR 2.45; PROTHROMBIN TIME 26.9 SECONDS (12.7-14.5)
[2021-02-21 07:03] LABS: CALCIUM LEVEL 8.5 MG/DL (8.8-10.2); CREATININE FOR GFR 1.79 MG/DL (0.55-1.30); GLOMERULAR FILTRATION RATE 28.9 (>32); MAGNESIUM LEVEL 2.1 MG/DL (1.8-2.4)
[2021-02-21 09:37] LABS: C REACTIVE PROTEIN QUANTITATIV 3.07 MG/DL (0.00-0.30)
[2021-02-21] MEDS: ASPIRIN 81MG ENTERIC TABLET PO SCH (10:04)
[2021-02-21] MEDS: CLOPIDOGREL 75 MG TAB PO SCH (10:05)
[2021-02-21] MEDS: PREGABALIN 75 MG CAP(LYRICA) PO SCH ×2 (10:05→20:49)
[2021-02-21] MEDS: POTASSIUM CHLORIDE 10MEQ SR TABLET PO SCH ×2 (10:05→20:49)
[2021-02-21] MEDS: LEVOTHYROXINE 100MCG TABLET (0.1MG) PO SCH (10:05)
[2021-02-21] MEDS: OMEPRAZOLE 20 MG CAP PO SCH (10:06)
[2021-02-21] MEDS: allopurinoL 100 MG TAB PO SCH ×2 (10:06→20:49)
[2021-02-21] MEDS: busPIRone 5 MG TAB PO SCH ×2 (10:06→20:49)
--- NOTE | 2021-02-21 10:52 | IPNPDOC ---
Subjective Date Seen The patient was seen on 02/21/21. Subjective Chief Complaint/HPI Patient was seen and examined at bedside this morning. She reports feeling better after receiving diuretics and denied shortness of breath at this time. She also denies chest pain, abdominal pain, n/v, problems urinating and with bowel movements. Objective Physical Examination Other physical findings General: Lying in bed, no acute distress Head/Neck/Throat: Trachea midline, mucous membranes moist Eyes: Sclera anicteric, no erythema or discharge appreciated bilaterally Thorax: Normal respiratory effort on room air, bibasilar crackles appreciated Cardiovascular: Normal rate, regular rhythm, normal S1, S2; no S3, S4, rubs/gallops/murmurs Abdomen: Bowel sounds present, soft/nontender/nondistended Genitourinary: No CVA tenderness, no Barrow in place Musculoskeletal: Moving all extremities, no edema Skin: There is a left first and second toe wound that is being taken care by Dr. Cooper Neurologic: AAOx3, speech fluent and goal-directed, no focal deficits, grossly intact Assessment /Plan Assessment #Systolic heart failure exacerbation -Echocardiogram done in 05/2019 noted a left ventricular ejection fraction of 40 to 50% -continue with furosemide 40 mg twice daily, i/o, and daily weights #COVID-19 -May be contributing to her shortness of breath. She did not require increase in her baseline oxygen requirements per hour, inflammatory markers are elevated therefore she will be started on remdesivir as well as dexamethasone. #Acute kidney injury -Baseline creatinine is 1.22. Likely prerenal azotemia secondary to CHF exacerbation. -Continue with furosemide -Ultrasound was negative for hydronephrosis or nephrolithiasis. #Insulin-dependent diabetes mellitus -Had an episode of hypoglycemia due to not getting her breakfast on time. -Hold ambulatory insulin until blood glucose is within normal limits. Continue with, sliding scale, Accu-Cheks, and hypoglycemic protocol. -History of peripheral neuropathy continue with pregabalin. #Coronary artery disease -Continue clopidogrel and aspirin # History off cva -Continue on dual antiplatelet therapy and atorvastatin #HLD -continue atorvastatin #GERD -continue omeprazole #Hypothyroidism -TSH within normal limits. Continue levothyroxine #Gout -continue allopurinol #DVT prophylaxis -Offered by warfarin Plan/VTE VTE Prophylaxis Ordered?: Yes VS, I&O, 24H, Fishbone Vital Signs/I&O Vital Signs Date Time Temp Pulse Resp B/P (MAP) Pulse Ox O2 Delivery O2 Flow Rate FiO2 02/21/21 10:31 60 94 Nasal Cannula 2.0 02/21/21 10:05 81/45 (57) 02/21/21 06:00 18 02/21/21 02:00 97.2 Laboratory Data 24H LABS Laboratory Tests 2 02/20/21 21:12: Prothrombin Time 25.5H, Prothromb Time International Ratio 2.28, Activated Partial Thromboplast Time 50.3H 02/20/21 21:39: Immature Granulocyte % (Auto) 0.3, Neutrophils (%) (Auto) 72.0H, Lymphocytes (%) (Auto) 15.8L, Monocytes (%) (Auto) 11.8H, Eosinophils (%) (Auto) 0.0, Basophils (%) (Auto) 0.1, Neutrophils # (Auto) 5.4, Lymphocytes # (Auto) 1.2L, Monocytes # (Auto) 0.9H, Eosinophils # (Auto) 0.0, Basophils # (Auto) 0.0, Nucleated Red Blood Cells % (auto) 0.0, Anion Gap 7L, Glomerular Filtration Rate 25.8L, Lactic Acid Level 1.9, Calcium Level 8.1L, Total Bilirubin 0.7, Direct Bilirubin 0.4H, Aspartate Amino Transf (AST/SGOT) 39H, Alanine Aminotransferase (ALT/SGPT) 22, Alkaline Phosphatase 216H, Total Creatine Kinase 89, Creatine Kinase MB < 1.0, Creatine Kinase MB Relative Index 1.12, Troponin I 0.06, PC-Jtm-S-Type Natriuretic Peptide 8577H, Total Protein 6.3L, Albumin 2.8L, Albumin/Globulin Ratio 0.8L, Thyroid Stimulating Hormone (TSH) 1.290 02/21/21 01:47: Bedside Glucose (Misc Panel) 171H 02/21/21 06:25: Prothrombin Time 26.9H, Prothromb Time International Ratio 2.45, Immature Granulocyte % (Auto) 0.4, Neutrophils (%) (Auto) 65.6, Lymphocytes (%) (Auto) 20.8L, Monocytes (%) (Auto) 12.8H, Eosinophils (%) (Auto) 0.1, Basophils (%) (Auto) 0.3, Neutrophils # (Auto) 5.0, Lymphocytes # (Auto) 1.6, Monocytes # (Auto) 1.0H, Eosinophils # (Auto) 0.0, Basophils # (Auto) 0.0, Nucleated Red Blood Cells % (auto) 0.0, Anion Gap 4L, Glomerular Filtration Rate 28.9L, Calcium Level 8.5L, Magnesium Level 2.1, Ferritin 604H, C-Reactive Protein, Quantitative 3.07H 02/21/21 10:02: Bedside Glucose (Misc Panel) 50L CBC/BMP Laboratory Tests 02/20/21 21:39 02/21/21 06:25 Microbiology Microbiology 02/21/21 Blood Culture, Received Pending 02/20/21 Respiratory Virus Panel (PCR) ([facility]) - Final, Complete SARS-CoV-2 (COVID 19) 02/20/21 Blood Culture, Received Pending WILLIAM CHO M.D. Feb 21, 2021 10:52
[2021-02-21 11:32] VITALS: BP 149/60
[2021-02-21] MEDS: dexameTHASONE 20MG/5ML VIAL (J1100 PER 1MG) IV SCH (11:44)
[2021-02-21] MEDS: FUROSEMIDE 40MG/4ML VIAL (J1940) IV SCH ×2 (11:44→17:34)
[2021-02-21] MEDS ORDERED: REMDESIVIR 200 MG in NS 250 ML IV ONE (12:00)
[2021-02-21] MEDS: CARVedilol 6.25 MG TAB PO SCH (12:35)
[2021-02-21 14:29] VITALS: BP 124/48
--- NOTE | 2021-02-21 15:46 | ECHO ---
ECHOCARDIOGRAM DATE OF PROCEDURE: 02/21/2021 Age: 81 Gender: Female Height: 61 inches Weight: 190 pounds Body Surface Area: 1.85 m2 PATIENT LOCATION: Inpatient, intensive care unit (ICU), Bed 4102. REFERRING PHYSICIAN: Moshe Burnette M.D. INDICATION: Congestive heart failure. MEASUREMENTS: 2D Measurements: RV - 4.8 cm LV - 4.6 cm Septum 1.2 cm Posterior wall 1.2 cm Aortic root 3.3 cm LA - 5.7 cm LVEF 40% Doppler Measurements: AV - 1.92 m/sec LVOT - 0.85 m/sec MV-E 180 msec Mean MV gradient 3 mmHg Pressure half-time 61 msec MVA - 3.6 cm2 PV - 0.8 m/sec Pulmonary artery acceleration time 87 msec RVSP 74 mmHg IVC - 2.0 cm COMMENTS: Underlying atrial fibrillation with consistent ventricular paced rhythm. Paced QRS complexes with left bundle branch block configuration. M-mode and 2-dimensional echocardiography was performed with pulse, continuous wave and color flow Doppler studies. Normal left ventricular size and wall thickness upper limits of normal to slightly increased. Paradoxical septal motion and akinesis of the apex related to his right ventricular pacing with at least moderate impairment of global resting systolic function. Prominently dilated left atrium. Unable to comment on left ventricular (LV) diastolic function in light of underlying atrial fibrillation and mitral valve disorder. Moderately dilated right heart chambers and likely severely dilated right atrium with right ventricular free wall hypokinesis and Doppler evidence of severe pulmonary hypertension. Inferior vena cava (IVC) was upper limits of normal with absent respiratory collapse in keeping with central venous pressure of 15-20 mmHg. Normal aortic dimensions. Three equal size aortic cusps with adequate cusp separation and perhaps trace aortic insufficiency. Bioprosthetic mitral valve with echodense supporting valve struts. Visible cusp separation with Doppler findings in keeping with appropriate prosthetic function. Normal appearing tricuspid valve with fairly severe tricuspid insufficiency. Pacing leads can be visualized traversing right heart structures, but no separate intracardiac mass. Very small posterior pericardial effusion.
[2021-02-21] MEDS: WARFARIN SOD 3MG TAB PO SCH (17:34)
--- NOTE | 2021-02-21 19:35 | ECGEPIP ---
[facility] - ED Test Date: 2021-02-20 Pat Name: TIFFANY CASTILLO Department: Room: [place] [address] Gender: Female [employer]: ED : 1940 Requested By: PASQUALE THOMAS Order Number: [id number] Reading MD: Randal Ortiz Measurements Intervals [place] Rate: 60 P: TN: QRS: -84 QRSD: 186 T: 110 QT: 556 QTc: 556 Interpretive Statements Ventricular-paced rhythm SIMILAR TO 08/21/20 Electronically Signed on 02-21-2021 19:35:28 EDT by Ranadl Ortiz
[2021-02-21 20:00] VITALS: BP 105/45
[2021-02-21] MEDS: ATORVASTATIN 20 MG TAB PO SCH (20:49)
[2021-02-21] MEDS: LEVEMIR (INSULIN DETEMIR) 1 UNITS/0.01ML SC SCH (20:50)
[2021-02-21] MEDS ORDERED: LEVEMIR (INSULIN DETEMIR) 1 UNITS/0.01ML SC SCH (21:00)
[2021-02-22 04:00] VITALS: BP 104/51
[2021-02-22] MEDS: LEVOTHYROXINE 100MCG TABLET (0.1MG) PO SCH (05:48)
[2021-02-22 07:14] LABS: BASO % 0.2 % (0.0-1.0); HEMATOCRIT 35.6 % (36.0-47.0); HEMOGLOBIN 11.4 g/dl (12.0-15.5); LYMPH # 0.9 10^3/uL (1.5-5.0); LYMPH % 9.7 % (24.0-44.0); MEAN CORPUSCULAR VOLUME 96.7 fl (80.0-96.0); MONO % 10.1 % (2.0-8.0); NEUTROPHILS # 7.7 10^3/uL (1.5-8.5); NEUTROPHILS % 79.6 % (36.0-66.0); PLATELET COUNT, AUTOMATED 120 10^3/uL (150-450); RED BLOOD COUNT 3.68 10^6/uL (4.00-5.40); WHITE BLOOD COUNT 9.7 10^3/uL (4.0-10.0)
[2021-02-22 07:26] LABS: INR 2.18; PROTHROMBIN TIME 24.7 SECONDS (12.7-14.5)
[2021-02-22 07:27] LABS: PARTIAL THROMBOPLASTIN TIME 58.5 SECONDS (25.9-37.0)
[2021-02-22 07:46] LABS: ALBUMIN 2.7 GM/DL (3.2-5.2); BILIRUBIN,DIRECT 0.3 MG/DL (0.0-0.2); BILIRUBIN,TOTAL 0.6 MG/DL (0.2-1.0); CALCIUM LEVEL 9.1 MG/DL (8.8-10.2); CREATININE FOR GFR 1.78 MG/DL (0.55-1.30); GLOMERULAR FILTRATION RATE 29.1 (>32); MAGNESIUM LEVEL 2.2 MG/DL (1.8-2.4); PHOSPHORUS LEVEL 2.2 MG/DL (2.5-4.9); POTASSIUM SERUM 4.6 MEQ/L (3.5-5.1); TOTAL PROTEIN 6.8 GM/DL (6.4-8.2); TROPONIN I 0.08 NG/ML (< 0.10)
[2021-02-22] MEDS: HumaLOG INSULIN (NovoLOG) PER UNIT SC SCH ×4 (08:38→23:13)
[2021-02-22] MEDS: FUROSEMIDE 40MG/4ML VIAL (J1940) IV SCH (08:39)
[2021-02-22] MEDS: ASPIRIN 81MG ENTERIC TABLET PO SCH (08:41)
[2021-02-22] MEDS: CLOPIDOGREL 75 MG TAB PO SCH (08:41)
[2021-02-22] MEDS: busPIRone 5 MG TAB PO SCH ×2 (08:42→23:21)
[2021-02-22] MEDS: allopurinoL 100 MG TAB PO SCH ×2 (08:42→23:22)
[2021-02-22] MEDS: POTASSIUM CHLORIDE 10MEQ SR TABLET PO SCH ×2 (08:42→23:22)
[2021-02-22] MEDS: OMEPRAZOLE 20 MG CAP PO SCH (08:42)
[2021-02-22] MEDS: PREGABALIN 75 MG CAP(LYRICA) PO SCH ×2 (08:42→23:22)
[2021-02-22] MEDS: CARVedilol 6.25 MG TAB PO SCH ×2 (09:00→15:03)
[2021-02-22] MEDS: dexameTHASONE 20MG/5ML VIAL (J1100 PER 1MG) IV SCH (10:32)
[2021-02-22] MEDS: REMDESIVIR 100 MG in NS 250 ML IV SCH (11:49)
[2021-02-22] MEDS: SODIUM CHLORIDE 0.9% INJ 10 ML SYR IV SCH (13:45)
[2021-02-22 14:10] VITALS: BP 150/63
--- NOTE | 2021-02-22 15:43 | IPNPDOC ---
Subjective Date Seen The patient was seen on 02/22/21. Subjective Chief Complaint/HPI Patient seen and examined at bedside this morning. She had no new complaints and reported improvement in her breathing. Other systems 10 point review of system was negative except for what is noted in the HPI Objective Physical Examination Other physical findings General: Lying in bed, no acute distress Head/Neck/Throat: Trachea midline, mucous membranes moist Eyes: Sclera anicteric, no erythema or discharge appreciated bilaterally Thorax: Normal respiratory effort on 2 L nasal cannula, clear to auscultation bilaterally Cardiovascular: Normal rate, regular rhythm, normal S1, S2; no S3, S4, rubs/gallops/murmurs Abdomen: Bowel sounds present, soft/nontender/nondistended Genitourinary: No CVA tenderness, no Barrow in place Musculoskeletal: Moving all extremities, no edema Skin: There is a left first and second toe wound that is clean, no erythema or discharge appreciated Neurologic: AAOx3, speech fluent and goal-directed, no focal deficits, grossly intact Assessment /Plan Assessment #Systolic heart failure exacerbation -Echocardiogram done noted left ventricular ejection fraction of 40% -Euvolemic on exam, diuresed well and is in net negative balance; and has contraction alkalosis. -Continue to monitor daily, i/o, and daily weights #COVID-19 -May be contributing to her shortness of breath. She did not require increase in her baseline oxygen requirements. However her inflammatory markers are elevated therefore she was started remdesivir as well as dexamethasone, this was discussed with Dr. Quiroz. #Acute kidney injury -Baseline creatinine is 1.22. Creatinine remains stable at 1.7 g/dL. -Likely will prerenal azotemia secondary to CHF exacerbation. -Ultrasound was negative for hydronephrosis or nephrolithiasis. #Insulin-dependent diabetes mellitus -Had an episode of hypoglycemia due to not getting her breakfast on time, but blood glucose has been stable. -Resume ambulatory basal regimen with sliding scale, Accu-Cheks, and hypoglycemic protocol. -History of peripheral neuropathy continue with pregabalin. #Coronary artery disease -Continue clopidogrel and aspirin # History off cva -Continue on dual antiplatelet therapy and atorvastatin #Chronic left wound -Continue follow-up with Dr. Cooper as outpatient. There is no evidence of infection at this time. #HLD -continue atorvastatin #GERD -continue omeprazole #Hypothyroidism -TSH within normal limits. Continue levothyroxine #Gout -continue allopurinol #DVT prophylaxis -Offered by warfarin Plan/VTE VTE Prophylaxis Ordered?: Yes VS, I&O, 24H, Fishbone Vital Signs/I&O Vital Signs Date Time Temp Pulse Resp B/P (MAP) Pulse Ox O2 Delivery O2 Flow Rate FiO2 02/22/21 15:03 61 150/63 02/22/21 14:10 99.2 18 96 Nasal Cannula 2.0 I&O- Last 24 Hours up to 6 AM 02/22/21 06:00 Intake Total 420 ml Output Total 1050 ml Balance -630 ml Laboratory Data 24H LABS Laboratory Tests 2 02/21/21 17:30: Bedside Glucose (Misc Panel) 304H 02/21/21 19:43: Bedside Glucose (Misc Panel) 348H 02/22/21 06:35: Immature Granulocyte % (Auto) 0.4, Neutrophils (%) (Auto) 79.6H, Lymphocytes (%) (Auto) 9.7L, Monocytes (%) (Auto) 10.1H, Eosinophils (%) (Auto) 0.0, Basophils (%) (Auto) 0.2, Neutrophils # (Auto) 7.7, Lymphocytes # (Auto) 0.9L, Monocytes # (Auto) 1.0H, Eosinophils # (Auto) 0.0, Basophils # (Auto) 0.0, Nucleated Red Blood Cells % (auto) 0.0, Prothrombin Time 24.7H, Prothromb Time International Ratio 2.18, Activated Partial Thromboplast Time 58.5H, Fibrinogen 557H, Anion Gap 3L, Glomerular Filtration Rate 29.1L, Calcium Level 9.1, Phosphorus Level 2.2L, Magnesium Level 2.2, Ferritin 534H, Total Bilirubin 0.6, Direct Bilirubin 0.3H, Aspartate Amino Transf (AST/SGOT) 33, Alanine Aminotransferase (ALT/SGPT) 22, Alkaline Phosphatase 222H, Lactate Dehydrogenase 245, Total Creatine Kinase 120, Troponin I 0.08#, RH-Hvn-G-Type Natriuretic Peptide 41716T, Total Protein 6.8, Albumin 2.7L, Albumin/Globulin Ratio 0.7L, Procalcitonin 0.37 02/22/21 11:38: Bedside Glucose (Misc Panel) 180H CBC/BMP Laboratory Tests 02/22/21 06:35 Microbiology Microbiology 10/17/21 Blood Culture - Preliminary, Resulted No growth after 24 hours . All specim... 02/20/21 Respiratory Virus Panel (PCR) ([facility]) - Final, Complete SARS-CoV-2 (COVID 19) 02/20/21 Blood Culture - Preliminary, Resulted No growth after 24 hours . All specim... WILLIAM CHO M.D. Feb 22, 2021 15:43
[2021-02-22] MEDS ORDERED: K-PHOS ORIGINAL (POT.ACID PHOSPHATE) 500MG TAB PO ONE (16:00)
[2021-02-22] MEDS ORDERED: WARFARIN SOD 4MG TAB PO SCH (17:00)
[2021-02-22] MEDS: LEVEMIR (INSULIN DETEMIR) 1 UNITS/0.01ML SC SCH (23:14)
[2021-02-22] MEDS: ATORVASTATIN 20 MG TAB PO SCH (23:22)
[2021-02-23 06:00] VITALS: BP 147/67
[2021-02-23 06:21] LABS: EOS % 0.1 % (0.0-3.0); HEMATOCRIT 34.3 % (36.0-47.0); HEMOGLOBIN 11.2 g/dl (12.0-15.5); LYMPH # 0.9 10^3/uL (1.5-5.0); LYMPH % 8.9 % (24.0-44.0); MEAN CORPUSCULAR HEMOGLOBIN 30.9 pg (27.0-33.0); MEAN CORPUSCULAR HGB CONC 32.7 g/dl (32.0-36.5); MEAN CORPUSCULAR VOLUME 94.8 fl (80.0-96.0); MONO # 0.8 10^3/uL (0.0-0.8); MONO % 7.9 % (2.0-8.0); NEUTROPHILS % 82.6 % (36.0-66.0); PLATELET COUNT, AUTOMATED 106 10^3/uL (150-450); RED BLOOD COUNT 3.62 10^6/uL (4.00-5.40); WHITE BLOOD COUNT 9.7 10^3/uL (4.0-10.0)
[2021-02-23] MEDS: LEVOTHYROXINE 100MCG TABLET (0.1MG) PO SCH (06:28)
[2021-02-23 06:36] LABS: INR 2.15; PROTHROMBIN TIME 24.4 SECONDS (12.7-14.5)
[2021-02-23 07:00] LABS: C REACTIVE PROTEIN QUANTITATIV 5.59 MG/DL (0.00-0.30); CALCIUM LEVEL 8.6 MG/DL (8.8-10.2); CREATININE FOR GFR 1.45 MG/DL (0.55-1.30); GLOMERULAR FILTRATION RATE 36.9 (>32); MAGNESIUM LEVEL 2.3 MG/DL (1.8-2.4); PHOSPHORUS LEVEL 3.4 MG/DL (2.5-4.9); POTASSIUM SERUM 4.3 MEQ/L (3.5-5.1)
[2021-02-23] MEDS: dexameTHASONE 20MG/5ML VIAL (J1100 PER 1MG) IV SCH (08:39)
[2021-02-23 08:40] VITALS: BP 147/67
[2021-02-23] MEDS: OMEPRAZOLE 20 MG CAP PO SCH (08:40)
[2021-02-23] MEDS: POTASSIUM CHLORIDE 10MEQ SR TABLET PO SCH (08:40)
[2021-02-23] MEDS: busPIRone 5 MG TAB PO SCH (08:40)
[2021-02-23] MEDS: CLOPIDOGREL 75 MG TAB PO SCH (08:40)
[2021-02-23] MEDS: ASPIRIN 81MG ENTERIC TABLET PO SCH (08:40)
[2021-02-23] MEDS: allopurinoL 100 MG TAB PO SCH (08:40)
[2021-02-23] MEDS: PREGABALIN 75 MG CAP(LYRICA) PO SCH (08:40)
[2021-02-23] MEDS: CARVedilol 6.25 MG TAB PO SCH (08:40)
[2021-02-23] MEDS: HumaLOG INSULIN (NovoLOG) PER UNIT SC SCH ×3 (08:41→17:32)
[2021-02-23] MEDS ORDERED: DOXYCYCLINE HYCLATE 100 MG in D5W MINI-BAG PLUS 100 ML IV SCH (09:00)
[2021-02-23] MEDS ORDERED: cefTRIAXone SOD 1 GM in D5W MINI-BAG PLUS 50 ML IV SCH (10:00)
[2021-02-23] MEDS: REMDESIVIR 100 MG in NS 250 ML IV SCH (12:20)
[2021-02-23 14:00] VITALS: BP 158/67
[2021-02-23] MEDS: SODIUM CHLORIDE 0.9% INJ 10 ML SYR IV SCH (14:02)
[2021-02-23] MEDS ORDERED: DOXY100C3 PO (17:04)
[2021-02-23] MEDS ORDERED: CEFD300CAP PO (17:04)
[2021-02-23] MEDS ORDERED: AMLO1TAB25 PO (17:04)
[2021-02-23] MEDS ORDERED: LACT1TAB9 PO (17:05)
[2021-02-23] MEDS: WARFARIN SOD 3MG TAB PO SCH (17:31)
--- NOTE | 2021-02-27 06:12 | DS.PDOC ---
Discharge Summary General Date of Admission Feb 20, 2021 at 23:56 Date of Discharge 02/23/21 Discharge Summary PROCEDURES PERFORMED DURING STAY: [None]. DISCHARGE DIAGNOSES: Systolic CHF exacerbation COVID -19 infection without respiratory compromise Secondary bacterial pneumonia AMI on CKD SECONDARY DIAGNOSIS: PAD s/p stents in legs in September 2014 CAD s/p stents in LAD, Posterior descending, right circumflex in 2014 Paroxysmal atrial fibrillation Pacemaker placement 2014 H/o rheumatic fever and rheumatic valvular heart disease Mitral stenosis and mitral regurgitation s/p mitral valve replacement 2014 s/p tricuspid valve annuloplasty 2014 h/o ASD ( PFO) with large left to right shunt and pulmonary hypertension s/p repair. DM with neuropathy H/o CVA and TIA CKD stage 3 Gout Hypothyroid GERD Obesity CARTER did not tolerate CPAP Chronic hypoxic respiratory failure on 2 L at home H/o kidney stones Osteoarthritis with chronic low back pain and radiculopathy Hearing impairment Chronic left foot wound COMPLICATIONS/CHIEF COMPLAINT: Ami, Covid-19. HOSPITAL COURSE: This is an 81 y/o female with a pmh of CHF, cad s/p stenting x11, afib with pacer placement, mitral valve replacement, Obesity, CARTER, chronic hypoxic respiraotry failure on 2 L / Oxygen, ckd, gout, dm2, hypothyroidism who presented to our ED on 02/20 for evaluation of a sob that began a few days ago. Patient stated that she was concerned that she was having "a buildup of fluid" that was causing her shortness of breath. Patient reported that her symptoms began with cold type symptoms like rhinorrhea, sneezing and cough that eventually progressed into shortness of breath. Patient was taking cold medicine and cough syrup at home with no relief. Her shortness of breath was much worse upon exertion. Patient felt that her symptoms were similar to how she has felt with CHF in the past. Patient had continued to wear her chronic 2L of o2 at home and has not had to increase it. Patient found to be COVID-19 positive in the ED despite vaccination. Labs were signifant for an elevated bnp of >8000 and e;evated creatinine of 1.98 from baseline 1.2. CXR showed chronic stable changes. Clinically she was in CHF exacerbation. She was admitted for CHF exacerbation and AMI on CKD with COVID -19 infection. Systolic heart failure exacerbation Echocardiogram done noted left ventricular ejection fraction of 40% Euvolemic on exam, diuresed well and is in net negative balance; and has mild contraction alkalosis. continue bumetanide at home COVID-19 with likely secondary bacterial pneumonia She did not require increase in her baseline oxygen requirements. However her inflammatory markers were elevated therefore she was started remdesivir as well as dexamethasone, this was discussed with Dr. Quiroz. Her resp functions remained at baseline with no compromise from the COVID infection so dexamethasone and remdesevir were discontinued after 3 days Her procalcitonin was elevated so was given ceftriaxone and doxycycline and discharged with cefdinir and doxycycline Acute kidney injury on ckd stage 3 Likely will prerenal azotemia secondary to CHF exacerbation. Ultrasound was negative for hydronephrosis or nephrolithiasis. Now resolved. Her valsartan was stopped due to aaaaaaaaki on CKD . Can be resumed by PMD. Insulin-dependent diabetes mellitus with neuropathy continue home insulin regimen and other oral medications. continue with pregabalin. Coronary artery disease Continue clopidogrel and aspirin, statin and betablocker H/o mitral valve replacement continue coumadin H/o Paroxysmal atrial fibrillation with pacemaker in place continue betablocker and coumadin. History of cva Continue on dual antiplatelet therapy and atorvastatin PAD s/p bilateral leg stents with Chronic left foot wound Continue follow-up with Dr. Cooper as outpatient. There is no evidence of infection at this time. Hypertension continue coreg, bumatenide. will give amlodipine in place of valsartan due to recent AMI with poor oral intake. HLD continue atorvastatin GERD continue omeprazole Hypothyroidism Continue levothyroxine Gout continue allopurinol DISCHARGE MEDICATIONS: Please see below. ALLERGIES: Please see below. PHYSICAL EXAMINATION ON DISCHARGE: VITAL SIGNS: Please see below. General: Lying in bed, no acute distress Head/Neck/Throat: Trachea midline, mucous membranes moist Eyes: Sclera anicteric, no erythema or discharge appreciated bilaterally Chest: clear to auscultation bilaterally no added sounds Cardiovascular: Normal rate, regular rhythm, normal S1, S2; rubs/gallops/murmurs, metallic click heard. Abdomen: Bowel sounds present, soft/nontender/nondistended Genitourinary: No CVA tenderness Extremities: No edema Skin: There is a left first and second toe wound that is clean, no erythema or discharge appreciated LABORATORY DATA: Please see below. ACTIVITY: [As tolerated]. DIET: Carb consistent DISPOSITION: 01 Home, Self-Care. DISCHARGE INSTRUCTIONS: PMS in 1 week DISCHARGE CONDITION: [Stable]. TIME SPENT ON DISCHARGE: 45 minutes. Vital Signs/I&Os Vital Signs Date Time Temp Pulse Resp B/P (MAP) Pulse Ox O2 Delivery O2 Flow Rate FiO2 02/23/21 14:00 95.7 60 16 158/67 (97) 97 Nasal Cannula 2.0 Microbiology Microbiology 02/21/21 Blood Culture - Final, Complete NO GROWTH AFTER 5 DAYS 02/20/21 Respiratory Virus Panel (PCR) ([facility]) - Final, Complete SARS-CoV-2 (COVID 19) 02/20/21 Blood Culture - Final, Complete NO GROWTH AFTER 5 DAYS Discharge Medications Scheduled Allopurinol (Allopurinol) 100 Mg Tablet, 100 MG PO BID, (Reported) Amlodipine Besylate (Amlodipine Besylate) 10 Mg Tablet, 1 TAB PO DAILY Ascorbic Acid (Vitamin C) 500 Mg Capsule, 500 MG PO DAILY, (Reported) Aspirin (Aspirin) 81 Mg Tab.chew, 81 MG PO DAILY, (Reported) Atorvastatin Calcium (Atorvastatin Calcium) 80 Mg Tablet, 80 MG PO QHS, (Reported) Bumetanide (Bumetanide) 1 Mg Tablet, 1 MG PO BID, (Reported) Buspirone HCl (Buspirone HCl) 7.5 Mg Tablet, 7.5 MG PO BID, (Reported) Calcitriol (Calcitriol) 0.25 Mcg Capsule, 0.25 MG PO DAILY, (Reported) Carvedilol (Carvedilol) 6.25 Mg Tablet, 6.25 MG PO DAILY, (Reported) Cefdinir (Cefdinir) 300 Mg Capsule, 1 CAP PO BID Cholecalciferol (Vitamin D3) (Vitamin D3) 1,000 Unit Tablet, 1,000 UNITS PO DAILY, (Reported) Clopidogrel Bisulfate (Clopidogrel) 75 Mg Tablet, 75 MG PO DAILY, (Reported) Doxycycline Hyclate (Doxycycline Hyclate) 100 Mg Capsule, 100 MG PO BID Ferrous Gluconate (Iron) 236 Mg Tablet, 27 MG PO BID, (Reported) Insulin Glargine,Hum.rec.anlog (Sana Hart) 300 Unit/1 Ml Insuln.pen, 45 UNIT SC QHS, (Reported) Lactobacillus Acidophilus (Acidophilus) 1 Each Tablet, 1 TAB PO DAILY Levothyroxine Sodium (Levothyroxine Sodium) 100 Mcg Tablet, 100 MCG PO DAILY, (Reported) Linagliptin (Tradjenta) 5 Mg Tablet, 5 MG PO QHS, (Reported) Omeprazole (Omeprazole) 20 Mg Capsule.dr, 20 MG PO DAILY, (Reported) Potassium Chloride (Potassium Chloride) 10 Meq Tablet.er, 10 MEQ PO BID, (Reported) Pregabalin (Pregabalin) 75 Mg Capsule, 75 MG PO BID, (Reported) Ubidecarenone/Vit E Acet (Co Q-10 100 mg Softgel) 1 Each Capsule, 100 MG PO DAILY, (Reported) Warfarin Sodium (Warfarin Sodium) 1 Mg Tablet, 4 MG PO 2XW, (Reported) MONDAY AND MONDAY Warfarin Sodium (Warfarin Sodium) 3 Mg Tablet, 3 MG PO 5XW, (Reported) MON,MON,MON,SAT,AND SUN Allergies Coded Allergies: Penicillins (Verified Adverse Reaction, Intermediate, N/V, 02/23/21) aloe vera (Verified Adverse Reaction, Intermediate, N/V skin burning, 02/23/21) Angela Ayon MD Feb 27, 2021 06:07
== END 2021-02-23 17:58 | disposition home or self-care (01) | DRG 177 ==
LOC: M ED 20:41 → M ED INP 23:56 → M 4MAIN 02-21 11:20
PROVIDERS: ADMIT Internal Medicine; ATTEND Internal Medicine Nephrology
DX: U07.1 COVID-19 (principal); I50.23 Acute on chronic systolic (congestive) heart failure; N17.9 Acute kidney failure, unspecified; J96.11 Chronic respiratory failure with hypoxia; Z98.41 Cataract extraction status, right eye; Z98.42 Cataract extraction status, left eye; Z95.1 Presence of aortocoronary bypass graft; Z95.0 Presence of cardiac pacemaker; Z86.73 Personal history of transient ischemic attack (TIA), and cerebral infarction without residual deficits; I25.10 Atherosclerotic heart disease of native coronary artery without angina pectoris; E03.9 Hypothyroidism, unspecified; M10.9 Gout, unspecified; E11.40 Type 2 diabetes mellitus with diabetic neuropathy, unspecified; K21.9 Gastro-esophageal reflux disease without esophagitis; Z79.899 Other long term (current) drug therapy; Z79.82 Long term (current) use of aspirin; Z79.4 Long term (current) use of insulin; Z88.0 Allergy status to penicillin; I48.0 Paroxysmal atrial fibrillation; N18.30 Chronic kidney disease, stage 3 unspecified; E66.9 Obesity, unspecified; G47.33 Obstructive sleep apnea (adult) (pediatric)

== ENCOUNTER 2021-05-08 09:39 | Inpatient (IN) | payer MEDICARE ==
[~2021-05-08] VITALS: Ht 152.4 cm; Wt 86.0 kg
[2021-05-08] MEDS: LEVEMIR (INSULIN DETEMIR) 1 UNITS/0.01ML SC SCH (09:00)
[~2021-05-08 09:39] MED LIST changes: +AMLO1TAB25 PO; +ASPI81CH33 PO; +CEFD300CAP PO; +CO Q100C10 PO; +D31000TA2 PO; +DOXY100C3 PO; +IRON27TA2 PO; +LACT1TAB9 PO; +POTA1TAB23 PO; +VITA500C24 PO; +WARF-58 PO
[2021-05-08 10:13] LABS: VENOUS HCO3 29.7 MEQ/L (23.0-27.0); VENOUS O2 SATURATION 67.2 % (60.0-80.0); VENOUS PARTIAL PRESSURE CO2 60.4 mmHg (38.0-50.0); VENOUS PARTIAL PRESSURE O2 38.6 mmHg (30.0-50.0); VENOUS STANDARD HCO3 25.5 MEQ/L; VENOUS TOTAL CO2 31.6 MEQ/L (24.0-28.0)
[2021-05-08 10:22] LABS: BASO % 0.3 % (0.0-1.0); EOS % 0.5 % (0.0-3.0); HEMATOCRIT 40.6 % (36.0-47.0); HEMOGLOBIN 12.9 g/dl (12.0-15.5); LYMPH # 0.8 10^3/uL (1.5-5.0); LYMPH % 10.1 % (24.0-44.0); MEAN CORPUSCULAR HEMOGLOBIN 30.7 pg (27.0-33.0); MEAN CORPUSCULAR HGB CONC 31.8 g/dl (32.0-36.5); MEAN CORPUSCULAR VOLUME 96.7 fl (80.0-96.0); MONO # 0.6 10^3/uL (0.0-0.8); MONO % 7.8 % (2.0-8.0); NEUTROPHILS # 6.4 10^3/uL (1.5-8.5); NEUTROPHILS % 80.9 % (36.0-66.0); PLATELET COUNT, AUTOMATED 133 10^3/uL (150-450); WHITE BLOOD COUNT 7.9 10^3/uL (4.0-10.0)
[2021-05-08] MEDS ORDERED: AMLO10TA PO (11:30)
[2021-05-08] MEDS ORDERED: FERR325T18 PO (11:36)
[2021-05-08] MEDS ORDERED: SPIR-10 PO (11:42)
[2021-05-08] MEDS ORDERED: VERI2.5T PO (11:45)
[2021-05-08] MEDS ORDERED: MED NOTE (11:47)
[2021-05-08] MEDS ORDERED: HOME MED LIST COMPLETE! XX SCH (11:50)
[2021-05-08 14:21] LABS: CALCIUM LEVEL 8.9 MG/DL (8.8-10.2); CREATININE FOR GFR 1.67 MG/DL (0.55-1.30); GLOMERULAR FILTRATION RATE 31.3 (>32); POTASSIUM SERUM 5.3 MEQ/L (3.5-5.1)
[2021-05-08 14:24] LABS: BILIRUBIN,DIRECT 0.5 MG/DL (0.0-0.2); BILIRUBIN,TOTAL 0.9 MG/DL (0.2-1.0); THYROID STIMULATING HORMONE 10.3 uIU/ML (0.358-3.740); TOTAL PROTEIN 6.3 GM/DL (6.4-8.2)
[2021-05-08] MEDS ORDERED: GLUCAGON INJ 1MG VIAL SC PRN (14:55)
[2021-05-08] MEDS ORDERED: GLUCOSE 4GM CHEW TABLET PO PRN (14:55)
[2021-05-08] MEDS ORDERED: DEXTROSE 50% 50 ML SYRINGE IV PRN (14:55)
[2021-05-08 15:00] LABS: ABG BASE EXCESS 2.7 (-2.0-2.0); ABG HCO3 29.6 MEQ/L (22.0-26.0); ABG O2 SATURATION 92.4 % (95.0-99.0); ABG PARTIAL PRESSURE CO2 54.9 mmHg (35.0-45.0); ABG PARTIAL PRESSURE O2 68.1 mmHg (75.0-100.0); ABG STANDARD HCO3 26.8 MEQ/L (22.0-26.0); ABG TOTAL CO2 31.2 MEQ/L (23.0-31.0); ABG pH (ARTERIAL) 7.349 UNITS (7.350-7.450)
[2021-05-08 15:53] LABS: PROTHROMBIN TIME 49.6 SECONDS (12.7-14.5)
[2021-05-08 15:54] LABS: PARTIAL THROMBOPLASTIN TIME 49.6 SECONDS (25.9-37.0)
[2021-05-08] MEDS: PANTOPRAZOLE 40MG VIAL (C9113 PER 1) IV SCH (16:28)
[2021-05-08] MEDS: FUROSEMIDE 100MG/10ML VIAL (J1940) IV SCH (16:29)
[2021-05-08 16:45] LABS: INR 5.45
[2021-05-08 18:25] VITALS: BP 170/67
[2021-05-08] MEDS: HumaLOG INSULIN (NovoLOG) PER UNIT SC SCH ×2 (18:52→23:29)
[2021-05-08 20:00] VITALS: BP 140/63
[2021-05-09] VITALS: BP 111/57
[2021-05-09] MEDS: FUROSEMIDE 100MG/10ML VIAL (J1940) IV SCH ×3 (03:36→20:06)
[2021-05-09 04:00] VITALS: BP 133/59
[2021-05-09] MEDS: HumaLOG INSULIN (NovoLOG) PER UNIT SC SCH ×4 (05:10→20:15)
[2021-05-09 05:53] LABS: HEMATOCRIT 39.6 % (36.0-47.0); HEMOGLOBIN 12.7 g/dl (12.0-15.5); MEAN CORPUSCULAR HEMOGLOBIN 30.6 pg (27.0-33.0); MEAN CORPUSCULAR HGB CONC 32.1 g/dl (32.0-36.5); MEAN CORPUSCULAR VOLUME 95.4 fl (80.0-96.0); PLATELET COUNT, AUTOMATED 144 10^3/uL (150-450); RED BLOOD COUNT 4.15 10^6/uL (4.00-5.40); WHITE BLOOD COUNT 7.7 10^3/uL (4.0-10.0)
[2021-05-09 06:03] LABS: PARTIAL THROMBOPLASTIN TIME 56.6 SECONDS (25.9-37.0)
[2021-05-09 06:19] LABS: ALBUMIN 3.1 GM/DL (3.2-5.2); BILIRUBIN,TOTAL 0.9 MG/DL (0.2-1.0); CALCIUM LEVEL 8.9 MG/DL (8.8-10.2); CREATININE FOR GFR 1.66 MG/DL (0.55-1.30); GLOMERULAR FILTRATION RATE 31.6 (>32); POTASSIUM SERUM 4.3 MEQ/L (3.5-5.1); TOTAL PROTEIN 5.9 GM/DL (6.4-8.2)
[2021-05-09 06:22] LABS: INR 5.5
[2021-05-09 08:00] VITALS: BP 131/60
[2021-05-09] MEDS: LEVEMIR (INSULIN DETEMIR) 1 UNITS/0.01ML SC SCH (09:00)
[2021-05-09] MEDS: PANTOPRAZOLE 40MG VIAL (C9113 PER 1) IV SCH (09:02)
[2021-05-09] MEDS ORDERED: PILL CUTTER 1 EACH XX PRN (10:50)
[2021-05-09] MEDS: SPIRONOLACTONE 12.5MG PER 1/2 TABLET PO SCH ×2 (10:50→20:06)
[2021-05-09] MEDS: CARVedilol 3.125 MG TAB PO SCH ×2 (10:50→20:06)
[2021-05-09] MEDS: FERROUS SULFATE 325MG TAB PO SCH ×2 (10:51→20:06)
[2021-05-09] MEDS: ATORVASTATIN 20 MG TAB PO SCH (10:52)
[2021-05-09] MEDS: PREGABALIN 75 MG CAP(LYRICA) PO SCH ×2 (10:52→20:06)
[2021-05-09] MEDS: ASCORBIC ACID 500 MG TAB PO SCH (10:52)
[2021-05-09 12:00] VITALS: BP 128/58
[2021-05-09] MEDS: busPIRone 5 MG TAB PO SCH ×2 (12:42→20:06)
[2021-05-09 16:00] VITALS: BP 112/51
[2021-05-09 20:00] VITALS: BP 142/59
[2021-05-09] MEDS ORDERED: SPIRONOLACTONE 25 MG TAB PO SCH (21:00)
[2021-05-09] MEDS ORDERED: ONDANSETRON 4MG/2ML VIAL IV PRN (21:05)
[2021-05-10] VITALS: BP 134/59
[2021-05-10] MEDS: FUROSEMIDE 100MG/10ML VIAL (J1940) IV SCH (03:19)
[2021-05-10 04:00] VITALS: BP 136/74
[2021-05-10 04:53] LABS: HEMATOCRIT 38.9 % (36.0-47.0); HEMOGLOBIN 12.4 g/dl (12.0-15.5); MEAN CORPUSCULAR HEMOGLOBIN 30.2 pg (27.0-33.0); MEAN CORPUSCULAR HGB CONC 31.9 g/dl (32.0-36.5); MEAN CORPUSCULAR VOLUME 94.6 fl (80.0-96.0); PLATELET COUNT, AUTOMATED 143 10^3/uL (150-450); RED BLOOD COUNT 4.11 10^6/uL (4.00-5.40); WHITE BLOOD COUNT 7.1 10^3/uL (4.0-10.0)
[2021-05-10 05:09] LABS: INR 3.21; PROTHROMBIN TIME 33.1 SECONDS (12.7-14.5)
[2021-05-10 05:10] LABS: PARTIAL THROMBOPLASTIN TIME 48.1 SECONDS (25.9-37.0)
[2021-05-10 05:18] LABS: BILIRUBIN,TOTAL 1.2 MG/DL (0.2-1.0); CALCIUM LEVEL 8.6 MG/DL (8.8-10.2); CREATININE FOR GFR 1.98 MG/DL (0.55-1.30); GLOMERULAR FILTRATION RATE 25.8 (>32); POTASSIUM SERUM 4.3 MEQ/L (3.5-5.1); TOTAL PROTEIN 6.6 GM/DL (6.4-8.2)
[2021-05-10 06:59] VITALS: BP 140/59
[2021-05-10] MEDS: LEVEMIR (INSULIN DETEMIR) 1 UNITS/0.01ML SC SCH (08:28)
[2021-05-10] MEDS: HumaLOG INSULIN (NovoLOG) PER UNIT SC SCH ×4 (08:28→20:00)
[2021-05-10] MEDS: ASCORBIC ACID 500 MG TAB PO SCH (08:29)
[2021-05-10] MEDS: SPIRONOLACTONE 12.5MG PER 1/2 TABLET PO SCH ×2 (08:29→20:05)
[2021-05-10] MEDS: PREGABALIN 75 MG CAP(LYRICA) PO SCH ×2 (08:29→20:01)
[2021-05-10] MEDS: OMEPRAZOLE 20 MG CAP PO SCH (08:29)
[2021-05-10] MEDS: FERROUS SULFATE 325MG TAB PO SCH ×2 (08:29→20:01)
[2021-05-10] MEDS: ATORVASTATIN 20 MG TAB PO SCH (08:29)
[2021-05-10] MEDS: CARVedilol 3.125 MG TAB PO SCH ×2 (08:30→20:04)
[2021-05-10] MEDS: busPIRone 5 MG TAB PO SCH ×2 (08:30→20:06)
[2021-05-10 11:50] VITALS: BP 104/53
[2021-05-10] MEDS: DOCUSATE SODIUM 100MG CAPSULE PO SCH ×2 (12:53→20:01)
[2021-05-10 15:48] VITALS: BP 127/60
[2021-05-10] MEDS: SENNA 8.6 MG TAB (SENOKOT) PO SCH (20:01)
[2021-05-11] VITALS (10 sets, daily range): BP systolic 112–141; BP diastolic 52–60
[2021-05-11 05:50] LABS: HEMOGLOBIN 12.6 g/dl (12.0-15.5); MEAN CORPUSCULAR HEMOGLOBIN 30.2 pg (27.0-33.0); MEAN CORPUSCULAR HGB CONC 31.5 g/dl (32.0-36.5); MEAN CORPUSCULAR VOLUME 95.9 fl (80.0-96.0); PLATELET COUNT, AUTOMATED 133 10^3/uL (150-450); RED BLOOD COUNT 4.17 10^6/uL (4.00-5.40); WHITE BLOOD COUNT 7.6 10^3/uL (4.0-10.0)
[2021-05-11 06:00] LABS: INR 2.43; PROTHROMBIN TIME 26.8 SECONDS (12.7-14.5)
[2021-05-11 06:01] LABS: PARTIAL THROMBOPLASTIN TIME 41.9 SECONDS (25.9-37.0)
[2021-05-11 06:08] LABS: ALBUMIN 3.1 GM/DL (3.2-5.2); CALCIUM LEVEL 8.7 MG/DL (8.8-10.2); CREATININE FOR GFR 1.86 MG/DL (0.55-1.30); GLOMERULAR FILTRATION RATE 27.7 (>32); POTASSIUM SERUM 4.3 MEQ/L (3.5-5.1); TOTAL PROTEIN 6.5 GM/DL (6.4-8.2)
[2021-05-11] MEDS: HumaLOG INSULIN (NovoLOG) PER UNIT SC SCH ×4 (07:30→20:08)
[2021-05-11] MEDS: LEVEMIR (INSULIN DETEMIR) 1 UNITS/0.01ML SC SCH (09:00)
[2021-05-11] MEDS: FUROSEMIDE 100MG/10ML VIAL (J1940) IV SCH (09:45)
[2021-05-11] MEDS: PREGABALIN 75 MG CAP(LYRICA) PO SCH ×2 (09:46→19:58)
[2021-05-11] MEDS: OMEPRAZOLE 20 MG CAP PO SCH (09:46)
[2021-05-11] MEDS: DOCUSATE SODIUM 100MG CAPSULE PO SCH ×2 (09:46→19:57)
[2021-05-11] MEDS: busPIRone 5 MG TAB PO SCH ×2 (09:46→19:58)
[2021-05-11] MEDS: FERROUS SULFATE 325MG TAB PO SCH ×2 (09:46→20:00)
[2021-05-11] MEDS: ATORVASTATIN 20 MG TAB PO SCH (09:46)
[2021-05-11] MEDS: CARVedilol 3.125 MG TAB PO SCH ×2 (09:47→19:59)
[2021-05-11] MEDS: ASCORBIC ACID 500 MG TAB PO SCH (09:47)
[2021-05-11] MEDS: SPIRONOLACTONE 12.5MG PER 1/2 TABLET PO SCH ×2 (09:47→20:00)
[2021-05-11 14:48] LABS: APPEARANCE, BODY FLUID HAZY (CLEAR); PLEURAL FL COLOR YELLOW (COLORLESS); SOURCE, BODY FLUID PLEURAL
[2021-05-11] MEDS ORDERED: ACETAMINOPHEN TAB 650MG DOSE (2X325MG) PO PRN (14:55)
[2021-05-11 15:12] LABS: AMYLASE, BODY FLUID 26 U/L (NOT ESTABLISHED); CHOLESTEROL, BODY FLUID < 50 MG/DL (NOT ESTABLISHED); LDH, BODY FLUID 70 U/L (NOT ESTABLISHED); SOURCE, BODY FLUID ALBUMIN PLEURAL; SOURCE, BODY FLUID AMYLASE PLEURAL; SOURCE, BODY FLUID CHOL PLEURAL; SOURCE, BODY FLUID GLUCOSE PLEURAL; SOURCE, BODY FLUID LDH PLEURAL; SOURCE, BODY FLUID TOT PROTEIN PLEURAL; SOURCE, BODY FLUID TRIG PLEURAL; TOTAL PROTEIN, BODY FLUID 1.7 G/DL (NOT ESTABLISHED); TRIGLYCERIDE, BODY FLUID 7 MG/DL (NOT ESTABLISHED)
[2021-05-11] MEDS: SENNA 8.6 MG TAB (SENOKOT) PO SCH (19:57)
[2021-05-11 20:43] LABS: SOURCE, BODY FLUID pH PLEURAL
[2021-05-12] VITALS: BP 127/56
[2021-05-12 04:00] VITALS: BP 138/59
[2021-05-12 05:48] LABS: HEMATOCRIT 37.6 % (36.0-47.0); HEMOGLOBIN 12.2 g/dl (12.0-15.5); MEAN CORPUSCULAR HEMOGLOBIN 30.6 pg (27.0-33.0); MEAN CORPUSCULAR HGB CONC 32.4 g/dl (32.0-36.5); MEAN CORPUSCULAR VOLUME 94.2 fl (80.0-96.0); PLATELET COUNT, AUTOMATED 113 10^3/uL (150-450); RED BLOOD COUNT 3.99 10^6/uL (4.00-5.40); WHITE BLOOD COUNT 7.2 10^3/uL (4.0-10.0)
[2021-05-12 05:56] LABS: INR 2.04; PROTHROMBIN TIME 23.5 SECONDS (12.7-14.5)
[2021-05-12 05:57] LABS: PARTIAL THROMBOPLASTIN TIME 38.4 SECONDS (25.9-37.0)
[2021-05-12 06:12] LABS: ALBUMIN 2.7 GM/DL (3.2-5.2); BILIRUBIN,TOTAL 1.1 MG/DL (0.2-1.0); CALCIUM LEVEL 8.5 MG/DL (8.8-10.2); CREATININE FOR GFR 1.63 MG/DL (0.55-1.30); GLOMERULAR FILTRATION RATE 32.2 (>32); POTASSIUM SERUM 4.1 MEQ/L (3.5-5.1); TOTAL PROTEIN 6.2 GM/DL (6.4-8.2)
[2021-05-12] MEDS: HumaLOG INSULIN (NovoLOG) PER UNIT SC SCH ×4 (07:50→20:28)
[2021-05-12 08:00] VITALS: BP 131/53
[2021-05-12] MEDS: FUROSEMIDE 100MG/10ML VIAL (J1940) IV SCH (08:45)
[2021-05-12] MEDS: ATORVASTATIN 20 MG TAB PO SCH (08:46)
[2021-05-12] MEDS: DOCUSATE SODIUM 100MG CAPSULE PO SCH ×2 (08:46→20:35)
[2021-05-12] MEDS: LEVEMIR (INSULIN DETEMIR) 1 UNITS/0.01ML SC SCH (08:46)
[2021-05-12] MEDS: ASCORBIC ACID 500 MG TAB PO SCH (08:46)
[2021-05-12] MEDS: OMEPRAZOLE 20 MG CAP PO SCH (08:46)
[2021-05-12] MEDS: busPIRone 5 MG TAB PO SCH ×2 (08:46→20:35)
[2021-05-12] MEDS: FERROUS SULFATE 325MG TAB PO SCH ×2 (08:47→20:35)
[2021-05-12] MEDS: SPIRONOLACTONE 12.5MG PER 1/2 TABLET PO SCH ×2 (08:47→20:35)
[2021-05-12] MEDS: CARVedilol 3.125 MG TAB PO SCH ×2 (08:47→20:35)
[2021-05-12] MEDS: PREGABALIN 75 MG CAP(LYRICA) PO SCH ×2 (08:47→20:35)
[2021-05-12 12:36] VITALS: BP 132/64
[2021-05-12 16:20] VITALS: BP 136/53
[2021-05-12] MEDS: CLOPIDOGREL 75 MG TAB PO SCH (16:38)
[2021-05-12] MEDS: WARFARIN SOD 3MG TAB PO SCH (16:39)
[2021-05-12 20:00] VITALS: BP_SYST 115; BP_SYST 135; BP_DIAS 54; BP_DIAS 80
[2021-05-12] MEDS: SENNA 8.6 MG TAB (SENOKOT) PO SCH (20:35)
[2021-05-13 04:00] VITALS: BP 130/59
[2021-05-13 05:40] LABS: HEMATOCRIT 37.9 % (36.0-47.0); HEMOGLOBIN 12.5 g/dl (12.0-15.5); MEAN CORPUSCULAR HEMOGLOBIN 30.6 pg (27.0-33.0); MEAN CORPUSCULAR VOLUME 92.9 fl (80.0-96.0); PLATELET COUNT, AUTOMATED 127 10^3/uL (150-450); RED BLOOD COUNT 4.08 10^6/uL (4.00-5.40); WHITE BLOOD COUNT 7.6 10^3/uL (4.0-10.0)
[2021-05-13 06:00] LABS: ALBUMIN 2.7 GM/DL (3.2-5.2); BILIRUBIN,TOTAL 0.9 MG/DL (0.2-1.0); CALCIUM LEVEL 8.4 MG/DL (8.8-10.2); CREATININE FOR GFR 1.55 MG/DL (0.55-1.30); GLOMERULAR FILTRATION RATE 34.2 (>32); POTASSIUM SERUM 4.1 MEQ/L (3.5-5.1); TOTAL PROTEIN 6.2 GM/DL (6.4-8.2)
[2021-05-13] MEDS: FUROSEMIDE 40MG/4ML VIAL (J1940) IV SCH ×3 (06:00→22:16)
[2021-05-13] MEDS: LEVOTHYROXINE 100MCG TABLET (0.1MG) PO SCH (06:16)
[2021-05-13 07:32] VITALS: BP 132/60
[2021-05-13] MEDS: HumaLOG INSULIN (NovoLOG) PER UNIT SC SCH ×4 (08:17→21:00)
[2021-05-13] MEDS: DOCUSATE SODIUM 100MG CAPSULE PO SCH ×2 (09:00→20:23)
[2021-05-13] MEDS: LEVEMIR (INSULIN DETEMIR) 1 UNITS/0.01ML SC SCH (09:00)
[2021-05-13] MEDS: SPIRONOLACTONE 12.5MG PER 1/2 TABLET PO SCH ×2 (10:14→20:29)
[2021-05-13] MEDS: ASPIRIN 81 MG CHEW TABLET PO SCH (10:14)
[2021-05-13] MEDS: busPIRone 5 MG TAB PO SCH ×2 (10:14→21:00)
[2021-05-13] MEDS: PREGABALIN 75 MG CAP(LYRICA) PO SCH ×2 (10:14→21:00)
[2021-05-13] MEDS: ASCORBIC ACID 500 MG TAB PO SCH (10:15)
[2021-05-13] MEDS: CLOPIDOGREL 75 MG TAB PO SCH (10:15)
[2021-05-13] MEDS: ATORVASTATIN 20 MG TAB PO SCH (10:15)
[2021-05-13] MEDS: CARVedilol 3.125 MG TAB PO SCH ×2 (10:15→20:29)
[2021-05-13] MEDS: OMEPRAZOLE 20 MG CAP PO SCH (10:16)
[2021-05-13] MEDS: FERROUS SULFATE 325MG TAB PO SCH ×2 (10:16→20:23)
[2021-05-13 12:24] VITALS: BP 135/58
[2021-05-13 15:12] VITALS: BP 135/55
[2021-05-13] MEDS: WARFARIN SOD 3MG TAB PO SCH (18:05)
[2021-05-13] MEDS: SANTYL OINT 30GM TOP SCH (18:05)
[2021-05-13] MEDS: SENNA 8.6 MG TAB (SENOKOT) PO SCH (20:23)
[2021-05-13 22:00] VITALS: BP 138/53
[2021-05-14 05:53] LABS: HEMATOCRIT 38.8 % (36.0-47.0); HEMOGLOBIN 12.5 g/dl (12.0-15.5); MEAN CORPUSCULAR HGB CONC 32.2 g/dl (32.0-36.5); MEAN CORPUSCULAR VOLUME 93.3 fl (80.0-96.0); PLATELET COUNT, AUTOMATED 131 10^3/uL (150-450); RED BLOOD COUNT 4.16 10^6/uL (4.00-5.40); WHITE BLOOD COUNT 6.5 10^3/uL (4.0-10.0)
[2021-05-14] MEDS: LEVOTHYROXINE 100MCG TABLET (0.1MG) PO SCH (05:59)
[2021-05-14 06:00] VITALS: BP 128/8
[2021-05-14] MEDS: FUROSEMIDE 40MG/4ML VIAL (J1940) IV SCH ×3 (06:00→20:53)
[2021-05-14 06:20] LABS: ALBUMIN 2.8 GM/DL (3.2-5.2); BILIRUBIN,TOTAL 0.9 MG/DL (0.2-1.0); CALCIUM LEVEL 8.4 MG/DL (8.8-10.2); CREATININE FOR GFR 1.47 MG/DL (0.55-1.30); GLOMERULAR FILTRATION RATE 36.3 (>32); POTASSIUM SERUM 3.9 MEQ/L (3.5-5.1); TOTAL PROTEIN 6.4 GM/DL (6.4-8.2)
[2021-05-14] MEDS: HumaLOG INSULIN (NovoLOG) PER UNIT SC SCH ×4 (07:30→19:42)
[2021-05-14] MEDS: ASPIRIN 81 MG CHEW TABLET PO SCH (08:56)
[2021-05-14] MEDS: ATORVASTATIN 20 MG TAB PO SCH (08:57)
[2021-05-14] MEDS: CLOPIDOGREL 75 MG TAB PO SCH (08:57)
[2021-05-14] MEDS: FERROUS SULFATE 325MG TAB PO SCH ×2 (08:57→19:03)
[2021-05-14] MEDS: DOCUSATE SODIUM 100MG CAPSULE PO SCH ×2 (08:57→19:03)
[2021-05-14] MEDS: OMEPRAZOLE 20 MG CAP PO SCH (08:57)
[2021-05-14] MEDS: ASCORBIC ACID 500 MG TAB PO SCH (08:57)
[2021-05-14] MEDS: SANTYL OINT 30GM TOP SCH (08:58)
[2021-05-14] MEDS: CARVedilol 3.125 MG TAB PO SCH ×2 (08:58→19:03)
[2021-05-14] MEDS: PREGABALIN 75 MG CAP(LYRICA) PO SCH ×2 (09:00→19:02)
[2021-05-14] MEDS: LEVEMIR (INSULIN DETEMIR) 1 UNITS/0.01ML SC SCH (09:00)
[2021-05-14] MEDS: busPIRone 5 MG TAB PO SCH ×2 (09:00→19:03)
[2021-05-14] MEDS: SPIRONOLACTONE 12.5MG PER 1/2 TABLET PO SCH ×2 (09:01→19:03)
[2021-05-14] MEDS ORDERED: LEVEMIR (INSULIN DETEMIR) 1 UNITS/0.01ML SC ONE (12:00)
[2021-05-14 14:00] VITALS: BP 134/50
[2021-05-14] MEDS ORDERED: WARFARIN SOD 4MG TAB PO SCH (17:00)
[2021-05-14] MEDS: SENNA 8.6 MG TAB (SENOKOT) PO SCH (19:03)
[2021-05-14 20:00] VITALS: BP 131/62
[2021-05-15] MEDS: LEVOTHYROXINE 100MCG TABLET (0.1MG) PO SCH (05:19)
[2021-05-15] MEDS: FUROSEMIDE 40MG/4ML VIAL (J1940) IV SCH (05:19)
[2021-05-15 06:00] VITALS: BP 126/63
[2021-05-15 06:40] LABS: HEMATOCRIT 38.5 % (36.0-47.0); HEMOGLOBIN 12.7 g/dl (12.0-15.5); MEAN CORPUSCULAR HEMOGLOBIN 30.8 pg (27.0-33.0); MEAN CORPUSCULAR VOLUME 93.4 fl (80.0-96.0); PLATELET COUNT, AUTOMATED 118 10^3/uL (150-450); RED BLOOD COUNT 4.12 10^6/uL (4.00-5.40); WHITE BLOOD COUNT 6.6 10^3/uL (4.0-10.0)
[2021-05-15 06:53] LABS: INR 1.69; PROTHROMBIN TIME 20.3 SECONDS (12.7-14.5)
[2021-05-15 07:02] LABS: CALCIUM LEVEL 8.5 MG/DL (8.8-10.2); CREATININE FOR GFR 1.4 MG/DL (0.55-1.30); GLOMERULAR FILTRATION RATE 38.4 (>32); POTASSIUM SERUM 3.8 MEQ/L (3.5-5.1)
[2021-05-15 07:03] LABS: ALBUMIN 2.7 GM/DL (3.2-5.2); BILIRUBIN,TOTAL 0.8 MG/DL (0.2-1.0)
[2021-05-15] MEDS: HumaLOG INSULIN (NovoLOG) PER UNIT SC SCH ×4 (07:30→21:02)
[2021-05-15] MEDS ORDERED: LEVEMIR (INSULIN DETEMIR) 1 UNITS/0.01ML SC SCH (09:00)
[2021-05-15] MEDS: CARVedilol 3.125 MG TAB PO SCH ×2 (10:19→21:01)
[2021-05-15] MEDS: FERROUS SULFATE 325MG TAB PO SCH ×2 (10:21→21:01)
[2021-05-15] MEDS: ASPIRIN 81 MG CHEW TABLET PO SCH (10:21)
[2021-05-15] MEDS: ATORVASTATIN 20 MG TAB PO SCH (10:21)
[2021-05-15] MEDS: ASCORBIC ACID 500 MG TAB PO SCH (10:22)
[2021-05-15] MEDS: OMEPRAZOLE 20 MG CAP PO SCH (10:22)
[2021-05-15] MEDS: CLOPIDOGREL 75 MG TAB PO SCH (10:22)
[2021-05-15] MEDS: busPIRone 5 MG TAB PO SCH ×2 (10:22→21:05)
[2021-05-15] MEDS: DOCUSATE SODIUM 100MG CAPSULE PO SCH ×2 (10:22→21:01)
[2021-05-15] MEDS: PREGABALIN 75 MG CAP(LYRICA) PO SCH ×2 (10:22→21:02)
[2021-05-15] MEDS: SANTYL OINT 30GM TOP SCH (10:23)
[2021-05-15] MEDS: SPIRONOLACTONE 12.5MG PER 1/2 TABLET PO SCH ×2 (10:24→21:05)
[2021-05-15] MEDS: LEVEMIR (INSULIN DETEMIR) 1 UNITS/0.01ML SC SCH (11:51)
[2021-05-15] MEDS: POTASSIUM CHLORIDE 10MEQ SR TABLET PO SCH (11:53)
[2021-05-15 14:00] VITALS: BP 122/64
[2021-05-15] MEDS: FUROSEMIDE 100MG/10ML VIAL (J1940) IV SCH ×2 (14:19→21:02)
[2021-05-15] MEDS ORDERED: WARFARIN SOD 4MG TAB PO SCH (17:00)
[2021-05-15] MEDS: SENNA 8.6 MG TAB (SENOKOT) PO SCH (21:01)
[2021-05-15 22:00] VITALS: BP 158/55
[2021-05-16] MEDS: LEVOTHYROXINE 100MCG TABLET (0.1MG) PO SCH (05:44)
[2021-05-16] MEDS: FUROSEMIDE 100MG/10ML VIAL (J1940) IV SCH (05:44)
[2021-05-16 06:00] VITALS: BP 151/53
[2021-05-16 06:10] LABS: HEMATOCRIT 39.1 % (36.0-47.0); HEMOGLOBIN 12.7 g/dl (12.0-15.5); MEAN CORPUSCULAR HGB CONC 32.5 g/dl (32.0-36.5); MEAN CORPUSCULAR VOLUME 92.2 fl (80.0-96.0); PLATELET COUNT, AUTOMATED 123 10^3/uL (150-450); RED BLOOD COUNT 4.24 10^6/uL (4.00-5.40); WHITE BLOOD COUNT 8.4 10^3/uL (4.0-10.0)
[2021-05-16 06:18] LABS: ALBUMIN 2.8 GM/DL (3.2-5.2); BILIRUBIN,TOTAL 0.9 MG/DL (0.2-1.0); CALCIUM LEVEL 8.9 MG/DL (8.8-10.2); CREATININE FOR GFR 1.67 MG/DL (0.55-1.30); GLOMERULAR FILTRATION RATE 31.3 (>32); POTASSIUM SERUM 4.4 MEQ/L (3.5-5.1); TOTAL PROTEIN 6.3 GM/DL (6.4-8.2)
[2021-05-16 06:20] LABS: INR 1.87
[2021-05-16] MEDS: LEVEMIR (INSULIN DETEMIR) 1 UNITS/0.01ML SC SCH (08:40)
[2021-05-16] MEDS: POTASSIUM CHLORIDE 10MEQ SR TABLET PO SCH (08:41)
[2021-05-16] MEDS: HumaLOG INSULIN (NovoLOG) PER UNIT SC SCH ×2 (08:41→12:50)
[2021-05-16] MEDS: OMEPRAZOLE 20 MG CAP PO SCH (08:41)
[2021-05-16] MEDS: PREGABALIN 75 MG CAP(LYRICA) PO SCH (08:42)
[2021-05-16] MEDS: ASPIRIN 81 MG CHEW TABLET PO SCH (08:42)
[2021-05-16] MEDS: ATORVASTATIN 20 MG TAB PO SCH (08:42)
[2021-05-16] MEDS: DOCUSATE SODIUM 100MG CAPSULE PO SCH (08:42)
[2021-05-16] MEDS: ASCORBIC ACID 500 MG TAB PO SCH (08:42)
[2021-05-16] MEDS: CLOPIDOGREL 75 MG TAB PO SCH (08:42)
[2021-05-16] MEDS: busPIRone 5 MG TAB PO SCH (08:42)
[2021-05-16] MEDS: FERROUS SULFATE 325MG TAB PO SCH (08:42)
[2021-05-16 08:43] VITALS: BP 151/60
[2021-05-16] MEDS: CARVedilol 3.125 MG TAB PO SCH (08:44)
[2021-05-16] MEDS: SPIRONOLACTONE 12.5MG PER 1/2 TABLET PO SCH (08:47)
[2021-05-16] MEDS: SANTYL OINT 30GM TOP SCH (08:47)
[2021-05-16] MEDS ORDERED: FURO80TA2 PO (10:15)
[2021-05-16] MEDS ORDERED: JANT4TAB PO (10:16)
[2021-05-16 14:00] VITALS: BP 147/55
[2021-05-16] MEDS ORDERED: TORSEMIDE 20 MG TAB PO SCH (17:00)
== END 2021-05-16 16:01 | disposition home or self-care (01) | DRG 291 ==
LOC: M ED 09:39 → M ED INP 16:25 → ENRESERV 17:40 → M PCU 18:18 → M MSPAV 05-13 15:04
PROVIDERS: ADMIT Internal Medicine; ATTEND Family Medicine
DX: I13.0 Hypertensive heart and chronic kidney disease with heart failure and stage 1 through stage 4 chronic kidney disease, or unspecified chronic kidney disease (principal); I50.33 Acute on chronic diastolic (congestive) heart failure; E87.4 Mixed disorder of acid-base balance; N17.9 Acute kidney failure, unspecified; J90 Pleural effusion, not elsewhere classified; E87.5 Hyperkalemia; E11.621 Type 2 diabetes mellitus with foot ulcer; I48.91 Unspecified atrial fibrillation; Z79.82 Long term (current) use of aspirin; Z86.73 Personal history of transient ischemic attack (TIA), and cerebral infarction without residual deficits; Z79.01 Long term (current) use of anticoagulants; I25.10 Atherosclerotic heart disease of native coronary artery without angina pectoris; M10.9 Gout, unspecified; E03.9 Hypothyroidism, unspecified; I27.20 Pulmonary hypertension, unspecified; Z95.2 Presence of prosthetic heart valve; D50.9 Iron deficiency anemia, unspecified; Z98.41 Cataract extraction status, right eye; Z98.42 Cataract extraction status, left eye; N18.30 Chronic kidney disease, stage 3 unspecified; G47.33 Obstructive sleep apnea (adult) (pediatric); Z79.899 Other long term (current) drug therapy; Z88.0 Allergy status to penicillin; Z88.8 Allergy status to other drugs, medicaments and biological substances; F03.90 Unspecified dementia, unspecified severity, without behavioral disturbance, psychotic disturbance, mood disturbance, and anxiety; Z66 Do not resuscitate; L97.529 Non-pressure chronic ulcer of other part of left foot with unspecified severity

== ENCOUNTER 2021-05-28 14:05 | Inpatient (IN) | payer MEDICARE ==
[~2021-05-28] VITALS: Ht 152.4 cm; Wt 88.1 kg
[~2021-05-28 14:05] MED LIST changes: +AMLO10TA PO; +FERR325T18 PO; +FURO80TA2 PO; +JANT4TAB PO; +MED NOTE; +OMEP-173 PO; -OMEP-218 PO; +SPIR-10 PO; +VERI2.5T PO
[2021-05-28 17:42] LABS: VENOUS BASE EXCESS 9.9 (-2.0-2.0); VENOUS HCO3 35.9 MEQ/L (23.0-27.0); VENOUS O2 SATURATION 54.5 % (60.0-80.0); VENOUS PARTIAL PRESSURE CO2 53.5 mmHg (38.0-50.0); VENOUS PARTIAL PRESSURE O2 27.6 mmHg (30.0-50.0); VENOUS PH 7.445 UNITS (7.330-7.430); VENOUS STANDARD HCO3 32.4 MEQ/L; VENOUS TOTAL CO2 37.6 MEQ/L (24.0-28.0)
[2021-05-28 17:46] LABS: BASO % 0.2 % (0.0-1.0); EOS % 0.1 % (0.0-3.0); HEMOGLOBIN 13.9 g/dl (12.0-15.5); LYMPH % 5.8 % (24.0-44.0); MEAN CORPUSCULAR HEMOGLOBIN 29.4 pg (27.0-33.0); MEAN CORPUSCULAR HGB CONC 33.1 g/dl (32.0-36.5); MONO # 1.1 10^3/uL (0.0-0.8); MONO % 6.4 % (2.0-8.0); NEUTROPHILS # 14.3 10^3/uL (1.5-8.5); PLATELET COUNT, AUTOMATED 154 10^3/uL (150-450); RED BLOOD COUNT 4.72 10^6/uL (4.00-5.40); WHITE BLOOD COUNT 16.5 10^3/uL (4.0-10.0)
[2021-05-28 18:03] LABS: INR 2.56; PROTHROMBIN TIME 27.9 SECONDS (12.7-14.5)
[2021-05-28 18:22] LABS: ALBUMIN 3.2 GM/DL (3.2-5.2); BILIRUBIN,DIRECT 0.8 MG/DL (0.0-0.2); BILIRUBIN,TOTAL 1.4 MG/DL (0.2-1.0); C REACTIVE PROTEIN QUANTITATIV 5.23 MG/DL (0.00-0.30); CALCIUM LEVEL 9.5 MG/DL (8.8-10.2); CREATININE FOR GFR 2.39 MG/DL (0.55-1.30); GLOMERULAR FILTRATION RATE 20.7 (>32); POTASSIUM SERUM 4.4 MEQ/L (3.5-5.1); THYROID STIMULATING HORMONE 2.55 uIU/ML (0.358-3.740); TOTAL PROTEIN 7.1 GM/DL (6.4-8.2)
[2021-05-28 18:26] LABS: ERYTHROCYTE SEDIMENTATION RATE 35 mm/hr (0-30)
[2021-05-28] MEDS ORDERED: VANCOMYCIN HCL 1,000 MG, VIAL MATE ADAPTER 1 EACH in NS 250 ML IV ONE (19:00)
[2021-05-28] MEDS: NS 1,000 ML IV SCH ×2 (19:50→22:15)
[2021-05-28] MEDS: IPRATROPIUM 0.5MG/ALBUTEROL 2.5MG INH SOL UD 3ML (DUONEB) NEB SCH (20:00)
[2021-05-28] MEDS ORDERED: FURO80TA2 PO (20:10)
[2021-05-28] MEDS ORDERED: med rec comment (20:26)
[2021-05-28] MEDS ORDERED: WARF-20 PO ×2 (20:28)
[2021-05-28] MEDS ORDERED: HOME MED LIST COMPLETE! XX SCH (20:30)
[2021-05-28] MEDS ORDERED: NS 1,000 ML IV ONE (20:35)
[2021-05-28] MEDS ORDERED: GLUCAGON INJ 1MG VIAL SC PRN (20:35)
[2021-05-28] MEDS ORDERED: DEXTROSE 50% 50 ML SYRINGE IV PRN (20:35)
[2021-05-28] MEDS ORDERED: GLUCOSE 4GM CHEW TABLET PO PRN (20:35)
[2021-05-28] MEDS ORDERED: HumaLOG INSULIN (NovoLOG) PER UNIT SC SCH (21:00)
[2021-05-28] MEDS: LEVEMIR (INSULIN DETEMIR) 1 UNITS/0.01ML SC SCH (21:54)
[2021-05-28 22:44] VITALS: BP 141/62
[2021-05-29] VITALS (9 sets, daily range): BP systolic 102–142; BP diastolic 56–99
[2021-05-29] MEDS ORDERED: FOSFOMYCIN TROMETHAMINE 3 GM POWDER PACKET (MONUROL) PO ONE
[2021-05-29] MEDS: IPRATROPIUM 0.5MG/ALBUTEROL 2.5MG INH SOL UD 3ML (DUONEB) NEB SCH ×4 (01:21→19:23)
[2021-05-29] MEDS: NS 1,000 ML IV SCH ×3 (03:04→22:21)
[2021-05-29 06:46] LABS: INR 2.99; PROTHROMBIN TIME 31.4 SECONDS (12.7-14.5)
[2021-05-29 06:53] LABS: CALCIUM LEVEL 8.6 MG/DL (8.8-10.2); CREATININE FOR GFR 2.13 MG/DL (0.55-1.30); GLOMERULAR FILTRATION RATE 23.7 (>32); POTASSIUM SERUM 3.6 MEQ/L (3.5-5.1)
[2021-05-29] MEDS ORDERED: VANCOMYCIN HCL 1,000 MG, VIAL MATE ADAPTER 1 EACH in NS 250 ML IV SCH (08:00)
[2021-05-29] MEDS: LEVEMIR (INSULIN DETEMIR) 1 UNITS/0.01ML SC SCH ×2 (09:32→19:50)
[2021-05-29] MEDS: HumaLOG INSULIN (NovoLOG) PER UNIT SC SCH ×3 (09:33→19:57)
[2021-05-29] MEDS: cefTRIAXone SOD 1 GM in D5W MINI-BAG PLUS 50 ML IV SCH (11:46)
[2021-05-29 13:30] LABS: BASO % 0.1 % (0.0-1.0); HEMOGLOBIN 12.4 g/dl (12.0-15.5); LYMPH # 1.1 10^3/uL (1.5-5.0); LYMPH % 6.8 % (24.0-44.0); MEAN CORPUSCULAR HEMOGLOBIN 29.7 pg (27.0-33.0); MEAN CORPUSCULAR HGB CONC 32.6 g/dl (32.0-36.5); MEAN CORPUSCULAR VOLUME 91.1 fl (80.0-96.0); MONO # 1.3 10^3/uL (0.0-0.8); MONO % 8.5 % (2.0-8.0); NEUTROPHILS # 12.9 10^3/uL (1.5-8.5); NEUTROPHILS % 84.1 % (36.0-66.0); PLATELET COUNT, AUTOMATED 135 10^3/uL (150-450); RED BLOOD COUNT 4.17 10^6/uL (4.00-5.40); WHITE BLOOD COUNT 15.4 10^3/uL (4.0-10.0)
[2021-05-29] MEDS: ASPIRIN 81 MG CHEW TABLET PO SCH (13:50)
[2021-05-29] MEDS: ATORVASTATIN 20 MG TAB PO SCH (13:51)
[2021-05-29] MEDS: busPIRone 5 MG TAB PO SCH ×2 (13:51→20:58)
[2021-05-29] MEDS: CARVedilol 6.25 MG TAB PO SCH ×2 (13:51→20:59)
[2021-05-29] MEDS: PREGABALIN 75 MG CAP(LYRICA) PO SCH ×2 (13:51→20:59)
[2021-05-29] MEDS: CLOPIDOGREL 75 MG TAB PO SCH (13:52)
[2021-05-29] MEDS: OMEPRAZOLE 20MG CAP PO SCH (13:52)
[2021-05-29] MEDS ORDERED: LIDOCAINE 2% 100MG/5ML SDV (FOR ANES.) As Ordered ONE (14:56)
[2021-05-29] MEDS ORDERED: propofoL 500 MG/50 ML VIAL As Ordered ONE (14:57)
[2021-05-29] MEDS ORDERED: MIDAZOLAM INJ 2MG/2ML VIAL (J2250 PER 1MG) As Ordered ONE (14:57)
[2021-05-29] MEDS ORDERED: fentaNYL 100 MCG/2 ML INJECTION As Ordered ONE (14:57)
[2021-05-29] MEDS ORDERED: BUPIVACAINE HCL 0.5% 10ML VIAL As Ordered ONE (15:46)
[2021-05-29] MEDS ORDERED: ROPIvacaine 0.5% 30ML INJECTION (J2795 PER 1MG) As Ordered ONE (15:46)
[2021-05-29] MEDS ORDERED: LIDOCAINE 2% MDV 20ML VIAL As Ordered ONE (15:46)
[2021-05-29] MEDS ORDERED: GENTAMICIN SULF 80MG/2ML VIAL As Ordered ONE (16:16)
[2021-05-29] MEDS ORDERED: HumaLOG INSULIN (NovoLOG) PER UNIT SC SCH (18:00)
[2021-05-29] MEDS: FERROUS SULFATE 325MG TAB PO SCH (20:58)
[2021-05-29] MEDS: allopurinoL 100 MG TAB PO SCH (20:58)
[2021-05-29] MEDS ORDERED: HEPARIN SOD (PORCINE) 5000UNITS/ML 1ML VIAL/SYRINGE SQ SCH (21:00)
[2021-05-30] MEDS: IPRATROPIUM 0.5MG/ALBUTEROL 2.5MG INH SOL UD 3ML (DUONEB) NEB SCH ×4 (01:34→19:14)
[2021-05-30] MEDS: NS 1,000 ML IV SCH (01:46)
[2021-05-30 02:00] VITALS: BP 128/60
[2021-05-30] MEDS: LEVOTHYROXINE 100MCG TABLET (0.1MG) PO SCH (05:44)
[2021-05-30 06:00] VITALS: BP 139/47
[2021-05-30] MEDS ORDERED: D5W/0.9% SODIUM CHLORIDE 1,000 ML IV SCH (06:25)
[2021-05-30 06:58] LABS: INR 3.71
[2021-05-30] MEDS: HumaLOG INSULIN (NovoLOG) PER UNIT SC SCH ×4 (07:30→19:54)
[2021-05-30 07:33] LABS: ALBUMIN 2.5 GM/DL (3.2-5.2); CALCIUM LEVEL 8.5 MG/DL (8.8-10.2); CREATININE FOR GFR 2.16 MG/DL (0.55-1.30); GLOMERULAR FILTRATION RATE 23.3 (>32); MAGNESIUM LEVEL 2.1 MG/DL (1.8-2.4); POTASSIUM SERUM 3.7 MEQ/L (3.5-5.1); TOTAL PROTEIN 6.3 GM/DL (6.4-8.2)
[2021-05-30] MEDS: LEVEMIR (INSULIN DETEMIR) 1 UNITS/0.01ML SC SCH ×2 (07:51→21:15)
[2021-05-30 07:58] LABS: BASO % 0.2 % (0.0-1.0); EOS # 0.1 10^3/uL (0.0-0.5); EOS % 0.6 % (0.0-3.0); HEMATOCRIT 34.6 % (36.0-47.0); HEMOGLOBIN 11.3 g/dl (12.0-15.5); LYMPH # 0.8 10^3/uL (1.5-5.0); LYMPH % 7.2 % (24.0-44.0); MEAN CORPUSCULAR HEMOGLOBIN 29.9 pg (27.0-33.0); MEAN CORPUSCULAR HGB CONC 32.7 g/dl (32.0-36.5); MEAN CORPUSCULAR VOLUME 91.5 fl (80.0-96.0); MONO # 1.2 10^3/uL (0.0-0.8); MONO % 11.8 % (2.0-8.0); NEUTROPHILS # 8.3 10^3/uL (1.5-8.5); NEUTROPHILS % 79.8 % (36.0-66.0); PLATELET COUNT, AUTOMATED 122 10^3/uL (150-450); RED BLOOD COUNT 3.78 10^6/uL (4.00-5.40); WHITE BLOOD COUNT 10.4 10^3/uL (4.0-10.0)
[2021-05-30 08:12] LABS: VANCOMYCIN RANDOM 18.5 UG/ML
[2021-05-30] MEDS ORDERED: VERICIGUAT PO SCH (09:00)
[2021-05-30] MEDS ORDERED: HEPARIN SOD (PORCINE) 5000UNITS/ML 1ML VIAL/SYRINGE SQ SCH (09:00)
[2021-05-30] MEDS: cefTRIAXone SOD 1 GM in D5W MINI-BAG PLUS 50 ML IV SCH (09:16)
[2021-05-30] MEDS: OMEPRAZOLE 20MG CAP PO SCH (09:19)
[2021-05-30] MEDS: allopurinoL 100 MG TAB PO SCH ×2 (09:19→21:14)
[2021-05-30] MEDS: CLOPIDOGREL 75 MG TAB PO SCH (09:19)
[2021-05-30] MEDS: busPIRone 5 MG TAB PO SCH ×2 (09:19→21:14)
[2021-05-30] MEDS: PREGABALIN 75 MG CAP(LYRICA) PO SCH ×2 (09:19→21:15)
[2021-05-30] MEDS: ASPIRIN 81 MG CHEW TABLET PO SCH (09:19)
[2021-05-30] MEDS: ATORVASTATIN 20 MG TAB PO SCH (09:19)
[2021-05-30] MEDS: FERROUS SULFATE 325MG TAB PO SCH ×2 (09:19→21:15)
[2021-05-30] MEDS: CARVedilol 6.25 MG TAB PO SCH ×2 (09:21→21:15)
[2021-05-30] MEDS: NEOSPORIN TOP OINT 15GM TOP SCH ×2 (09:23→21:16)
[2021-05-30 10:00] VITALS: BP 135/56
[2021-05-30] MEDS: VANCOMYCIN HCL 750 MG, VIAL MATE ADAPTER 1 EACH in NS 250 ML IV SCH (12:50)
[2021-05-30 14:00] VITALS: BP 138/55
[2021-05-30] MEDS ORDERED: WARFARIN SOD 4MG TAB PO SCH ×2 (15:45→21:00)
[2021-05-30 22:00] VITALS: BP 131/92
[2021-05-31] MEDS: IPRATROPIUM 0.5MG/ALBUTEROL 2.5MG INH SOL UD 3ML (DUONEB) NEB SCH ×3 (02:00→14:00)
[2021-05-31] MEDS: LEVOTHYROXINE 100MCG TABLET (0.1MG) PO SCH (05:16)
[2021-05-31 05:59] LABS: BASO % 0.2 % (0.0-1.0); EOS # 0.2 10^3/uL (0.0-0.5); EOS % 2.6 % (0.0-3.0); HEMATOCRIT 35.2 % (36.0-47.0); HEMOGLOBIN 11.5 g/dl (12.0-15.5); LYMPH # 0.9 10^3/uL (1.5-5.0); LYMPH % 9.9 % (24.0-44.0); MEAN CORPUSCULAR HEMOGLOBIN 29.3 pg (27.0-33.0); MEAN CORPUSCULAR HGB CONC 32.7 g/dl (32.0-36.5); MEAN CORPUSCULAR VOLUME 89.6 fl (80.0-96.0); MONO # 1.1 10^3/uL (0.0-0.8); MONO % 11.3 % (2.0-8.0); NEUTROPHILS % 75.6 % (36.0-66.0); PLATELET COUNT, AUTOMATED 139 10^3/uL (150-450); RED BLOOD COUNT 3.93 10^6/uL (4.00-5.40); WHITE BLOOD COUNT 9.3 10^3/uL (4.0-10.0)
[2021-05-31 06:00] VITALS: BP 133/90
[2021-05-31 06:09] LABS: INR 3.46; PROTHROMBIN TIME 35.1 SECONDS (12.7-14.5)
[2021-05-31 06:29] LABS: ALBUMIN 2.3 GM/DL (3.2-5.2); BILIRUBIN,TOTAL 0.6 MG/DL (0.2-1.0); CALCIUM LEVEL 8.3 MG/DL (8.8-10.2); CREATININE FOR GFR 2.01 MG/DL (0.55-1.30); GLOMERULAR FILTRATION RATE 25.3 (>32); MAGNESIUM LEVEL 2.2 MG/DL (1.8-2.4); TOTAL PROTEIN 6.2 GM/DL (6.4-8.2)
[2021-05-31] MEDS: busPIRone 5 MG TAB PO SCH ×2 (09:13→22:05)
[2021-05-31] MEDS: CARVedilol 6.25 MG TAB PO SCH ×2 (09:14→22:04)
[2021-05-31] MEDS: OMEPRAZOLE 20MG CAP PO SCH (09:14)
[2021-05-31] MEDS: ATORVASTATIN 20 MG TAB PO SCH (09:15)
[2021-05-31] MEDS: FERROUS SULFATE 325MG TAB PO SCH ×2 (09:15→22:04)
[2021-05-31] MEDS: PREGABALIN 75 MG CAP(LYRICA) PO SCH ×2 (09:15→22:04)
[2021-05-31] MEDS: allopurinoL 100 MG TAB PO SCH ×2 (09:15→22:05)
[2021-05-31] MEDS: HumaLOG INSULIN (NovoLOG) PER UNIT SC SCH ×4 (09:17→22:00)
[2021-05-31] MEDS: ASPIRIN 81 MG CHEW TABLET PO SCH (09:17)
[2021-05-31] MEDS: CLOPIDOGREL 75 MG TAB PO SCH (09:17)
[2021-05-31] MEDS: LEVEMIR (INSULIN DETEMIR) 1 UNITS/0.01ML SC SCH ×2 (09:18→22:06)
[2021-05-31] MEDS: NEOSPORIN TOP OINT 15GM TOP SCH ×2 (09:20→22:17)
[2021-05-31 09:30] LABS: C REACTIVE PROTEIN QUANTITATIV 12.5 MG/DL (0.00-0.30)
[2021-05-31 09:55] LABS: ERYTHROCYTE SEDIMENTATION RATE 52 mm/hr (0-30)
[2021-05-31] MEDS: VANCOMYCIN HCL 750 MG, VIAL MATE ADAPTER 1 EACH in NS 250 ML IV SCH (12:04)
[2021-05-31] MEDS: VANCOMYCIN HCL 500 MG in D5W MINI-BAG PLUS 100 ML IV SCH (13:58)
[2021-05-31 14:00] VITALS: BP 129/90
[2021-05-31] MEDS: FUROSEMIDE 40MG/4ML VIAL (J1940) IV SCH (17:49)
[2021-05-31] MEDS ORDERED: PILL CUTTER 1 EACH XX PRN (19:55)
[2021-05-31 20:00] VITALS: BP_SYST 127; BP_DIAS 60; BP_DIAS 82
[2021-05-31 22:00] VITALS: BP 118/55
[2021-05-31 23:00] VITALS: BP 110/59
[2021-06-01] MEDS: IPRATROPIUM 0.5MG/ALBUTEROL 2.5MG INH SOL UD 3ML (DUONEB) NEB SCH ×5 (00:08→19:40)
[2021-06-01] MEDS: FUROSEMIDE 40MG/4ML VIAL (J1940) IV SCH ×3 (03:08→18:18)
[2021-06-01 04:00] VITALS: BP 127/57
[2021-06-01 05:28] LABS: BASO % 0.1 % (0.0-1.0); EOS # 0.2 10^3/uL (0.0-0.5); EOS % 2.4 % (0.0-3.0); HEMATOCRIT 34.1 % (36.0-47.0); HEMOGLOBIN 11.2 g/dl (12.0-15.5); LYMPH # 0.7 10^3/uL (1.5-5.0); LYMPH % 7.9 % (24.0-44.0); MEAN CORPUSCULAR HEMOGLOBIN 29.6 pg (27.0-33.0); MEAN CORPUSCULAR HGB CONC 32.8 g/dl (32.0-36.5); MONO % 11.4 % (2.0-8.0); NEUTROPHILS # 7.1 10^3/uL (1.5-8.5); NEUTROPHILS % 77.7 % (36.0-66.0); PLATELET COUNT, AUTOMATED 153 10^3/uL (150-450); RED BLOOD COUNT 3.79 10^6/uL (4.00-5.40); WHITE BLOOD COUNT 9.1 10^3/uL (4.0-10.0)
[2021-06-01 05:39] LABS: INR 2.53; PROTHROMBIN TIME 27.6 SECONDS (12.7-14.5)
[2021-06-01 05:49] LABS: ALBUMIN 2.5 GM/DL (3.2-5.2); BILIRUBIN,TOTAL 0.5 MG/DL (0.2-1.0); C REACTIVE PROTEIN QUANTITATIV 10.2 MG/DL (0.00-0.30); CALCIUM LEVEL 8.4 MG/DL (8.8-10.2); CREATININE FOR GFR 2.22 MG/DL (0.55-1.30); GLOMERULAR FILTRATION RATE 22.6 (>32); MAGNESIUM LEVEL 2.2 MG/DL (1.8-2.4); POTASSIUM SERUM 3.6 MEQ/L (3.5-5.1); TOTAL PROTEIN 6.3 GM/DL (6.4-8.2)
[2021-06-01] MEDS: LEVOTHYROXINE 100MCG TABLET (0.1MG) PO SCH (07:03)
[2021-06-01] MEDS: HumaLOG INSULIN (NovoLOG) PER UNIT SC SCH ×4 (07:30→21:00)
[2021-06-01 08:00] VITALS: BP 126/60
[2021-06-01] MEDS ORDERED: DEXTROSE 50% 50 ML SYRINGE IV STA (09:57)
[2021-06-01] MEDS ORDERED: D5W/0.45% SODIUM CHLORIDE 1,000 ML IV SCH (10:00)
[2021-06-01] MEDS: NEOSPORIN TOP OINT 15GM TOP SCH ×2 (10:07→21:15)
[2021-06-01 12:00] VITALS: BP 123/59
[2021-06-01] MEDS: allopurinoL 100 MG TAB PO SCH ×2 (12:04→21:11)
[2021-06-01] MEDS: ATORVASTATIN 20 MG TAB PO SCH (12:04)
[2021-06-01] MEDS: ASPIRIN 81 MG CHEW TABLET PO SCH (12:04)
[2021-06-01] MEDS: OMEPRAZOLE 20MG CAP PO SCH (12:04)
[2021-06-01] MEDS: PREGABALIN 75 MG CAP(LYRICA) PO SCH ×2 (12:04→21:10)
[2021-06-01] MEDS: CLOPIDOGREL 75 MG TAB PO SCH (12:05)
[2021-06-01] MEDS: busPIRone 5 MG TAB PO SCH ×2 (12:05→21:11)
[2021-06-01] MEDS: FERROUS SULFATE 325MG TAB PO SCH ×2 (12:05→21:12)
[2021-06-01] MEDS: CARVedilol 6.25 MG TAB PO SCH ×2 (12:07→21:11)
[2021-06-01] MEDS: D5W 1,000 ML IV SCH (12:08)
[2021-06-01] MEDS: VANCOMYCIN HCL 500 MG in D5W MINI-BAG PLUS 100 ML IV SCH (13:00)
[2021-06-01 16:00] VITALS: BP 126/60
[2021-06-01] MEDS ORDERED: VANCOMYCIN HCL 500 MG in D5W MINI-BAG PLUS 100 ML IV SCH (16:00)
[2021-06-01] MEDS ORDERED: ALBUTEROL SULFATE 2.5 MG/0.5 ML INH NEB SOLN NEB PRN (17:30)
[2021-06-01 20:00] VITALS: BP 114/57
[2021-06-02] VITALS (8 sets, daily range): BP systolic 111–136; BP diastolic 52–63
[2021-06-02] MEDS: IPRATROPIUM 0.5MG/ALBUTEROL 2.5MG INH SOL UD 3ML (DUONEB) NEB SCH ×5 (00:10→23:50)
[2021-06-02] MEDS: FUROSEMIDE 40MG/4ML VIAL (J1940) IV SCH ×3 (01:53→18:45)
[2021-06-02] MEDS: D5W 1,000 ML IV SCH (02:43)
[2021-06-02 04:56] LABS: BASO % 0.2 % (0.0-1.0); EOS # 0.2 10^3/uL (0.0-0.5); EOS % 1.7 % (0.0-3.0); HEMATOCRIT 35.1 % (36.0-47.0); HEMOGLOBIN 11.3 g/dl (12.0-15.5); LYMPH # 0.9 10^3/uL (1.5-5.0); LYMPH % 8.9 % (24.0-44.0); MEAN CORPUSCULAR HGB CONC 32.2 g/dl (32.0-36.5); MONO # 1.2 10^3/uL (0.0-0.8); MONO % 11.7 % (2.0-8.0); NEUTROPHILS # 7.6 10^3/uL (1.5-8.5); NEUTROPHILS % 76.9 % (36.0-66.0); PLATELET COUNT, AUTOMATED 157 10^3/uL (150-450); WHITE BLOOD COUNT 9.8 10^3/uL (4.0-10.0)
[2021-06-02 05:05] LABS: PROTHROMBIN TIME 23.1 SECONDS (12.7-14.5)
[2021-06-02 05:36] LABS: ALBUMIN 2.6 GM/DL (3.2-5.2); BILIRUBIN,TOTAL 0.6 MG/DL (0.2-1.0); C REACTIVE PROTEIN QUANTITATIV 8.58 MG/DL (0.00-0.30); CALCIUM LEVEL 8.3 MG/DL (8.8-10.2); CREATININE FOR GFR 2.2 MG/DL (0.55-1.30); GLOMERULAR FILTRATION RATE 22.8 (>32); MAGNESIUM LEVEL 2.2 MG/DL (1.8-2.4); POTASSIUM SERUM 4.3 MEQ/L (3.5-5.1); TOTAL PROTEIN 6.1 GM/DL (6.4-8.2)
[2021-06-02] MEDS: LEVOTHYROXINE 100MCG TABLET (0.1MG) PO SCH (05:36)
[2021-06-02] MEDS: HumaLOG INSULIN (NovoLOG) PER UNIT SC SCH ×4 (08:59→21:00)
[2021-06-02] MEDS: NEOSPORIN TOP OINT 15GM TOP SCH ×2 (08:59→21:09)
[2021-06-02] MEDS: busPIRone 5 MG TAB PO SCH ×2 (09:00→21:09)
[2021-06-02] MEDS: ATORVASTATIN 20 MG TAB PO SCH (09:00)
[2021-06-02] MEDS: FERROUS SULFATE 325MG TAB PO SCH ×2 (09:00→21:09)
[2021-06-02] MEDS: allopurinoL 100 MG TAB PO SCH ×2 (09:00→21:10)
[2021-06-02] MEDS: CARVedilol 6.25 MG TAB PO SCH ×2 (09:00→21:09)
[2021-06-02] MEDS: PREGABALIN 75 MG CAP(LYRICA) PO SCH ×2 (09:00→21:10)
[2021-06-02] MEDS: CLOPIDOGREL 75 MG TAB PO SCH (09:00)
[2021-06-02] MEDS: OMEPRAZOLE 20MG CAP PO SCH (09:03)
[2021-06-02] MEDS: ASPIRIN 81 MG CHEW TABLET PO SCH (09:03)
[2021-06-02] MEDS ORDERED: LIDOCAINE VISCOUS 2% SOLN 15ML UDC As Ordered ONE (16:18)
[2021-06-02] MEDS ORDERED: CETACAINE SPRAY 5GM As Ordered ONE (16:18)
[2021-06-02] MEDS ORDERED: LIDOCAINE 2% 100MG/5ML SDV (FOR ANES.) As Ordered ONE (17:04)
[2021-06-02] MEDS ORDERED: propofoL 200 MG/20 ML VIAL As Ordered ONE (17:04)
[2021-06-02] MEDS ORDERED: fentaNYL 100 MCG/2 ML INJECTION As Ordered ONE (17:04)
[2021-06-02] MEDS ORDERED: ONDANSETRON 4MG/2ML VIAL IV PRN (17:30)
[2021-06-02] MEDS ORDERED: fentaNYL 100 MCG/2 ML INJECTION IV PRN (17:30)
[2021-06-02] MEDS ORDERED: FUROSEMIDE 20MG/2ML VIAL (J1940) IV ONE (22:00)
[2021-06-03] VITALS: BP 126/60
[2021-06-03] MEDS: FUROSEMIDE 40MG/4ML VIAL (J1940) IV SCH ×3 (01:27→17:44)
[2021-06-03 04:00] VITALS: BP 124/57
[2021-06-03] MEDS: LEVOTHYROXINE 100MCG TABLET (0.1MG) PO SCH (05:38)
[2021-06-03 06:22] LABS: BASO % 0.4 % (0.0-1.0); EOS # 0.3 10^3/uL (0.0-0.5); EOS % 3.2 % (0.0-3.0); HEMATOCRIT 35.5 % (36.0-47.0); HEMOGLOBIN 11.7 g/dl (12.0-15.5); LYMPH # 1.1 10^3/uL (1.5-5.0); LYMPH % 13.6 % (24.0-44.0); MEAN CORPUSCULAR HEMOGLOBIN 29.5 pg (27.0-33.0); MEAN CORPUSCULAR VOLUME 89.6 fl (80.0-96.0); MONO # 0.9 10^3/uL (0.0-0.8); NEUTROPHILS # 5.5 10^3/uL (1.5-8.5); NEUTROPHILS % 71.3 % (36.0-66.0); PLATELET COUNT, AUTOMATED 175 10^3/uL (150-450); RED BLOOD COUNT 3.96 10^6/uL (4.00-5.40); WHITE BLOOD COUNT 7.7 10^3/uL (4.0-10.0)
[2021-06-03 06:32] LABS: INR 1.51; PROTHROMBIN TIME 18.6 SECONDS (12.7-14.5)
[2021-06-03 06:45] LABS: ALBUMIN 2.5 GM/DL (3.2-5.2); BILIRUBIN,TOTAL 0.6 MG/DL (0.2-1.0); CALCIUM LEVEL 8.6 MG/DL (8.8-10.2); CREATININE FOR GFR 2.14 MG/DL (0.55-1.30); GLOMERULAR FILTRATION RATE 23.5 (>32); MAGNESIUM LEVEL 2.2 MG/DL (1.8-2.4); POTASSIUM SERUM 4.3 MEQ/L (3.5-5.1); TOTAL PROTEIN 6.7 GM/DL (6.4-8.2)
[2021-06-03 07:31] VITALS: BP 123/56
[2021-06-03] MEDS: IPRATROPIUM 0.5MG/ALBUTEROL 2.5MG INH SOL UD 3ML (DUONEB) NEB SCH ×3 (07:44→19:50)
[2021-06-03] MEDS ORDERED: VANCOMYCIN HCL 500 MG in D5W MINI-BAG PLUS 100 ML IV SCH ×2 (08:00→09:00)
[2021-06-03] MEDS: PREGABALIN 75 MG CAP(LYRICA) PO SCH ×2 (08:29→20:44)
[2021-06-03] MEDS: HumaLOG INSULIN (NovoLOG) PER UNIT SC SCH ×4 (08:29→20:12)
[2021-06-03] MEDS: OMEPRAZOLE 20MG CAP PO SCH (08:29)
[2021-06-03] MEDS: ATORVASTATIN 20 MG TAB PO SCH (08:29)
[2021-06-03] MEDS: ASPIRIN 81 MG CHEW TABLET PO SCH (08:29)
[2021-06-03] MEDS: FERROUS SULFATE 325MG TAB PO SCH ×2 (08:30→20:44)
[2021-06-03] MEDS: CARVedilol 6.25 MG TAB PO SCH ×2 (08:30→20:44)
[2021-06-03] MEDS: allopurinoL 100 MG TAB PO SCH ×2 (08:30→20:44)
[2021-06-03] MEDS: CLOPIDOGREL 75 MG TAB PO SCH (08:30)
[2021-06-03] MEDS: NEOSPORIN TOP OINT 15GM TOP SCH ×2 (08:31→20:45)
[2021-06-03] MEDS: busPIRone 5 MG TAB PO SCH ×2 (08:45→20:44)
[2021-06-03 11:30] VITALS: BP 131/61
[2021-06-03 15:27] VITALS: BP_SYST 101; BP_SYST 122; BP_DIAS 49; BP_DIAS 69
[2021-06-03] MEDS: WARFARIN SOD 2MG TAB PO SCH (17:44)
[2021-06-03 20:00] VITALS: BP 137/69
[2021-06-04] VITALS: BP 122/56
[2021-06-04] MEDS: IPRATROPIUM 0.5MG/ALBUTEROL 2.5MG INH SOL UD 3ML (DUONEB) NEB SCH ×4 (01:00→19:53)
[2021-06-04] MEDS: FUROSEMIDE 40MG/4ML VIAL (J1940) IV SCH ×2 (01:56→09:27)
[2021-06-04 04:00] VITALS: BP 134/56
[2021-06-04] MEDS: LEVOTHYROXINE 100MCG TABLET (0.1MG) PO SCH (05:30)
[2021-06-04 06:16] LABS: BASO % 0.3 % (0.0-1.0); EOS # 0.2 10^3/uL (0.0-0.5); EOS % 2.4 % (0.0-3.0); HEMOGLOBIN 11.1 g/dl (12.0-15.5); LYMPH % 12.6 % (24.0-44.0); MEAN CORPUSCULAR HEMOGLOBIN 29.3 pg (27.0-33.0); MEAN CORPUSCULAR HGB CONC 32.6 g/dl (32.0-36.5); MEAN CORPUSCULAR VOLUME 89.7 fl (80.0-96.0); MONO # 0.8 10^3/uL (0.0-0.8); MONO % 10.7 % (2.0-8.0); NEUTROPHILS # 5.7 10^3/uL (1.5-8.5); NEUTROPHILS % 73.2 % (36.0-66.0); PLATELET COUNT, AUTOMATED 186 10^3/uL (150-450); RED BLOOD COUNT 3.79 10^6/uL (4.00-5.40); WHITE BLOOD COUNT 7.8 10^3/uL (4.0-10.0)
[2021-06-04 06:28] LABS: INR 1.53; PROTHROMBIN TIME 18.8 SECONDS (12.7-14.5)
[2021-06-04 06:39] LABS: ALBUMIN 2.4 GM/DL (3.2-5.2); BILIRUBIN,TOTAL 0.6 MG/DL (0.2-1.0); CALCIUM LEVEL 8.7 MG/DL (8.8-10.2); GLOMERULAR FILTRATION RATE 25.5 (>32); MAGNESIUM LEVEL 2.1 MG/DL (1.8-2.4); POTASSIUM SERUM 3.9 MEQ/L (3.5-5.1); TOTAL PROTEIN 6.1 GM/DL (6.4-8.2)
[2021-06-04 08:43] VITALS: BP 129/59
[2021-06-04] MEDS: OMEPRAZOLE 20MG CAP PO SCH (09:05)
[2021-06-04] MEDS: ASPIRIN 81 MG CHEW TABLET PO SCH (09:05)
[2021-06-04] MEDS: HumaLOG INSULIN (NovoLOG) PER UNIT SC SCH ×4 (09:05→21:00)
[2021-06-04] MEDS: busPIRone 5 MG TAB PO SCH ×2 (09:05→21:16)
[2021-06-04] MEDS: CARVedilol 6.25 MG TAB PO SCH ×2 (09:07→21:19)
[2021-06-04] MEDS: allopurinoL 100 MG TAB PO SCH ×2 (09:08→21:16)
[2021-06-04] MEDS: ATORVASTATIN 20 MG TAB PO SCH (09:08)
[2021-06-04] MEDS: FERROUS SULFATE 325MG TAB PO SCH ×2 (09:08→21:16)
[2021-06-04] MEDS: CLOPIDOGREL 75 MG TAB PO SCH (09:08)
[2021-06-04] MEDS: PREGABALIN 75 MG CAP(LYRICA) PO SCH ×2 (09:09→21:16)
[2021-06-04] MEDS: NEOSPORIN TOP OINT 15GM TOP SCH ×2 (11:26→21:22)
[2021-06-04 11:51] VITALS: BP 116/60
[2021-06-04 16:19] VITALS: BP 114/64
[2021-06-04] MEDS: WARFARIN SOD 2MG TAB PO SCH (17:17)
[2021-06-04] MEDS: FUROSEMIDE 100MG/10ML VIAL (J1940) IV SCH (17:17)
[2021-06-04 21:23] VITALS: BP 135/60
[2021-06-05] MEDS: IPRATROPIUM 0.5MG/ALBUTEROL 2.5MG INH SOL UD 3ML (DUONEB) NEB SCH ×4 (01:16→19:33)
[2021-06-05 01:52] VITALS: BP 133/61
[2021-06-05] MEDS: FUROSEMIDE 100MG/10ML VIAL (J1940) IV SCH ×3 (01:54→18:14)
[2021-06-05 04:00] VITALS: BP 138/62
[2021-06-05] MEDS: LEVOTHYROXINE 100MCG TABLET (0.1MG) PO SCH (05:58)
[2021-06-05 08:07] VITALS: BP 146/60
[2021-06-05 08:50] LABS: BASO % 0.5 % (0.0-1.0); EOS # 0.2 10^3/uL (0.0-0.5); EOS % 3.3 % (0.0-3.0); HEMATOCRIT 34.8 % (36.0-47.0); HEMOGLOBIN 11.3 g/dl (12.0-15.5); LYMPH % 14.3 % (24.0-44.0); MEAN CORPUSCULAR HEMOGLOBIN 29.4 pg (27.0-33.0); MEAN CORPUSCULAR HGB CONC 32.5 g/dl (32.0-36.5); MEAN CORPUSCULAR VOLUME 90.4 fl (80.0-96.0); MONO # 0.7 10^3/uL (0.0-0.8); NEUTROPHILS # 5.1 10^3/uL (1.5-8.5); NEUTROPHILS % 70.7 % (36.0-66.0); PLATELET COUNT, AUTOMATED 211 10^3/uL (150-450); RED BLOOD COUNT 3.85 10^6/uL (4.00-5.40); WHITE BLOOD COUNT 7.3 10^3/uL (4.0-10.0)
[2021-06-05] MEDS: ASPIRIN 81 MG CHEW TABLET PO SCH (09:00)
[2021-06-05] MEDS: HumaLOG INSULIN (NovoLOG) PER UNIT SC SCH ×5 (09:00→20:44)
[2021-06-05] MEDS: OMEPRAZOLE 20MG CAP PO SCH (09:00)
[2021-06-05] MEDS ORDERED: VANCOMYCIN HCL 1,000 MG, VIAL MATE ADAPTER 1 EACH in NS 250 ML IV SCH (09:00)
[2021-06-05] MEDS: allopurinoL 100 MG TAB PO SCH ×2 (09:00→20:43)
[2021-06-05 09:01] LABS: INR 1.49; PROTHROMBIN TIME 18.4 SECONDS (12.7-14.5)
[2021-06-05] MEDS: CARVedilol 6.25 MG TAB PO SCH ×2 (09:01→20:43)
[2021-06-05] MEDS: ATORVASTATIN 20 MG TAB PO SCH (09:01)
[2021-06-05] MEDS: CLOPIDOGREL 75 MG TAB PO SCH (09:01)
[2021-06-05] MEDS: NEOSPORIN TOP OINT 15GM TOP SCH ×2 (09:01→20:44)
[2021-06-05] MEDS: FERROUS SULFATE 325MG TAB PO SCH ×2 (09:01→20:43)
[2021-06-05] MEDS: PREGABALIN 75 MG CAP(LYRICA) PO SCH ×2 (09:01→20:43)
[2021-06-05] MEDS: busPIRone 5 MG TAB PO SCH ×2 (09:02→20:44)
[2021-06-05 09:09] LABS: ALBUMIN 2.4 GM/DL (3.2-5.2); BILIRUBIN,TOTAL 0.7 MG/DL (0.2-1.0); CREATININE FOR GFR 1.99 MG/DL (0.55-1.30); GLOMERULAR FILTRATION RATE 25.6 (>32); MAGNESIUM LEVEL 2.1 MG/DL (1.8-2.4); POTASSIUM SERUM 4.3 MEQ/L (3.5-5.1); TOTAL PROTEIN 6.7 GM/DL (6.4-8.2); VANCOMYCIN LEVEL TROUGH 17.4 UG/ML (10.0-20.0)
[2021-06-05] MEDS: VANCOMYCIN HCL 750 MG, VIAL MATE ADAPTER 1 EACH in NS 250 ML IV SCH (09:22)
[2021-06-05 16:33] VITALS: BP 138/60
[2021-06-05] MEDS: WARFARIN SOD 3MG TAB PO SCH (16:46)
[2021-06-05 20:00] VITALS: BP 132/56
[2021-06-06] MEDS: IPRATROPIUM 0.5MG/ALBUTEROL 2.5MG INH SOL UD 3ML (DUONEB) NEB SCH ×4 (01:32→20:12)
[2021-06-06] MEDS: FUROSEMIDE 100MG/10ML VIAL (J1940) IV SCH ×3 (02:26→17:51)
[2021-06-06 04:00] VITALS: BP 131/59
[2021-06-06 04:50] LABS: BASO % 0.6 % (0.0-1.0); EOS # 0.2 10^3/uL (0.0-0.5); EOS % 2.6 % (0.0-3.0); HEMATOCRIT 35.8 % (36.0-47.0); HEMOGLOBIN 11.6 g/dl (12.0-15.5); LYMPH # 1.1 10^3/uL (1.5-5.0); MEAN CORPUSCULAR HEMOGLOBIN 29.1 pg (27.0-33.0); MEAN CORPUSCULAR HGB CONC 32.4 g/dl (32.0-36.5); MEAN CORPUSCULAR VOLUME 89.9 fl (80.0-96.0); MONO # 0.6 10^3/uL (0.0-0.8); MONO % 8.9 % (2.0-8.0); NEUTROPHILS # 5.1 10^3/uL (1.5-8.5); NEUTROPHILS % 70.8 % (36.0-66.0); PLATELET COUNT, AUTOMATED 220 10^3/uL (150-450); RED BLOOD COUNT 3.98 10^6/uL (4.00-5.40); WHITE BLOOD COUNT 7.2 10^3/uL (4.0-10.0)
[2021-06-06 04:58] LABS: INR 1.41; PROTHROMBIN TIME 17.7 SECONDS (12.7-14.5)
[2021-06-06 05:16] LABS: ALBUMIN 2.3 GM/DL (3.2-5.2); BILIRUBIN,TOTAL 0.7 MG/DL (0.2-1.0); CALCIUM LEVEL 8.9 MG/DL (8.8-10.2); CREATININE FOR GFR 1.85 MG/DL (0.55-1.30); GLOMERULAR FILTRATION RATE 27.9 (>32); MAGNESIUM LEVEL 2.1 MG/DL (1.8-2.4); POTASSIUM SERUM 4.6 MEQ/L (3.5-5.1); TOTAL PROTEIN 6.7 GM/DL (6.4-8.2)
[2021-06-06] MEDS: LEVOTHYROXINE 100MCG TABLET (0.1MG) PO SCH (06:10)
[2021-06-06 08:44] VITALS: BP 134/65
[2021-06-06] MEDS: HumaLOG INSULIN (NovoLOG) PER UNIT SC SCH ×4 (09:16→21:00)
[2021-06-06] MEDS: ASPIRIN 81 MG CHEW TABLET PO SCH (09:17)
[2021-06-06] MEDS: CLOPIDOGREL 75 MG TAB PO SCH (09:17)
[2021-06-06] MEDS: busPIRone 5 MG TAB PO SCH ×2 (09:18→20:04)
[2021-06-06] MEDS: ATORVASTATIN 20 MG TAB PO SCH (09:18)
[2021-06-06] MEDS: CARVedilol 6.25 MG TAB PO SCH ×2 (09:19→20:05)
[2021-06-06] MEDS: FERROUS SULFATE 325MG TAB PO SCH ×2 (09:19→20:04)
[2021-06-06] MEDS: allopurinoL 100 MG TAB PO SCH ×2 (09:19→20:04)
[2021-06-06] MEDS: PREGABALIN 75 MG CAP(LYRICA) PO SCH ×2 (09:19→20:04)
[2021-06-06] MEDS: OMEPRAZOLE 20MG CAP PO SCH (09:19)
[2021-06-06] MEDS: NEOSPORIN TOP OINT 15GM TOP SCH ×2 (09:20→20:04)
[2021-06-06] MEDS: ACETAMINOPHEN 500 MG TAB PO PRN (12:45)
[2021-06-06 16:00] VITALS: BP 121/56
[2021-06-06] MEDS: WARFARIN SOD 3MG TAB PO SCH ×2 (17:00→17:51)
[2021-06-06 21:00] VITALS: BP 118/56
[2021-06-07] MEDS: IPRATROPIUM 0.5MG/ALBUTEROL 2.5MG INH SOL UD 3ML (DUONEB) NEB SCH ×4 (01:12→20:00)
[2021-06-07] MEDS: FUROSEMIDE 100MG/10ML VIAL (J1940) IV SCH ×3 (01:54→17:49)
[2021-06-07] MEDS: LEVOTHYROXINE 100MCG TABLET (0.1MG) PO SCH (05:43)
[2021-06-07 06:00] VITALS: BP 133/58
[2021-06-07 06:02] LABS: HEMATOCRIT 36.8 % (36.0-47.0); HEMOGLOBIN 11.9 g/dl (12.0-15.5); MEAN CORPUSCULAR HEMOGLOBIN 29.2 pg (27.0-33.0); MEAN CORPUSCULAR HGB CONC 32.3 g/dl (32.0-36.5); MEAN CORPUSCULAR VOLUME 90.4 fl (80.0-96.0); PLATELET COUNT, AUTOMATED 230 10^3/uL (150-450); RED BLOOD COUNT 4.07 10^6/uL (4.00-5.40); WHITE BLOOD COUNT 8.9 10^3/uL (4.0-10.0)
[2021-06-07 08:11] VITALS: BP 126/56
[2021-06-07] MEDS: NEOSPORIN TOP OINT 15GM TOP SCH ×2 (08:23→21:20)
[2021-06-07] MEDS: busPIRone 5 MG TAB PO SCH ×2 (08:43→21:17)
[2021-06-07] MEDS: OMEPRAZOLE 20MG CAP PO SCH (08:43)
[2021-06-07] MEDS: CLOPIDOGREL 75 MG TAB PO SCH (08:43)
[2021-06-07] MEDS: CARVedilol 6.25 MG TAB PO SCH ×2 (08:43→21:18)
[2021-06-07] MEDS: PREGABALIN 75 MG CAP(LYRICA) PO SCH ×2 (08:43→21:17)
[2021-06-07] MEDS: FERROUS SULFATE 325MG TAB PO SCH ×2 (08:43→21:17)
[2021-06-07] MEDS: ATORVASTATIN 20 MG TAB PO SCH (08:44)
[2021-06-07] MEDS: ASPIRIN 81 MG CHEW TABLET PO SCH (08:44)
[2021-06-07] MEDS: allopurinoL 100 MG TAB PO SCH ×2 (08:44→21:17)
[2021-06-07] MEDS: HumaLOG INSULIN (NovoLOG) PER UNIT SC SCH ×4 (08:44→21:18)
[2021-06-07 10:26] LABS: CALCIUM LEVEL 9.1 MG/DL (8.8-10.2); GLOMERULAR FILTRATION RATE 25.5 (>32); POTASSIUM SERUM 4.4 MEQ/L (3.5-5.1); VANCOMYCIN LEVEL TROUGH 16.8 UG/ML (10.0-20.0)
[2021-06-07] MEDS: VANCOMYCIN HCL 750 MG, VIAL MATE ADAPTER 1 EACH in NS 250 ML IV SCH (10:36)
[2021-06-07 11:06] LABS: INR 1.49; PROTHROMBIN TIME 18.4 SECONDS (12.7-14.5)
[2021-06-07 13:03] VITALS: BP 128/60
[2021-06-07 16:04] VITALS: BP 129/59
[2021-06-07 16:30] VITALS: BP 134/57
[2021-06-07] MEDS: WARFARIN SOD 3MG TAB PO SCH (17:49)
[2021-06-07 20:00] VITALS: BP 129/57
[2021-06-08] MEDS: IPRATROPIUM 0.5MG/ALBUTEROL 2.5MG INH SOL UD 3ML (DUONEB) NEB SCH ×4 (02:00→19:42)
[2021-06-08] MEDS: FUROSEMIDE 100MG/10ML VIAL (J1940) IV SCH ×3 (02:01→17:02)
[2021-06-08] MEDS: LEVOTHYROXINE 100MCG TABLET (0.1MG) PO SCH (05:41)
[2021-06-08 05:48] VITALS: BP 123/56
[2021-06-08 06:57] LABS: HEMATOCRIT 34.6 % (36.0-47.0); HEMOGLOBIN 11.4 g/dl (12.0-15.5); MEAN CORPUSCULAR HEMOGLOBIN 29.6 pg (27.0-33.0); MEAN CORPUSCULAR HGB CONC 32.9 g/dl (32.0-36.5); MEAN CORPUSCULAR VOLUME 89.9 fl (80.0-96.0); PLATELET COUNT, AUTOMATED 238 10^3/uL (150-450); RED BLOOD COUNT 3.85 10^6/uL (4.00-5.40); WHITE BLOOD COUNT 11.7 10^3/uL (4.0-10.0)
[2021-06-08 07:07] LABS: INR 1.35; PROTHROMBIN TIME 17.1 SECONDS (12.7-14.5)
[2021-06-08 07:35] LABS: CALCIUM LEVEL 9.1 MG/DL (8.8-10.2); CREATININE FOR GFR 1.93 MG/DL (0.55-1.30); GLOMERULAR FILTRATION RATE 26.5 (>32); POTASSIUM SERUM 4.2 MEQ/L (3.5-5.1)
[2021-06-08] MEDS: PREGABALIN 75 MG CAP(LYRICA) PO SCH ×2 (08:30→20:34)
[2021-06-08] MEDS: ASPIRIN 81 MG CHEW TABLET PO SCH (08:30)
[2021-06-08] MEDS: allopurinoL 100 MG TAB PO SCH ×2 (08:30→20:34)
[2021-06-08] MEDS: FERROUS SULFATE 325MG TAB PO SCH ×2 (08:30→20:34)
[2021-06-08] MEDS: HumaLOG INSULIN (NovoLOG) PER UNIT SC SCH ×4 (08:30→20:35)
[2021-06-08] MEDS: busPIRone 5 MG TAB PO SCH ×2 (08:31→20:34)
[2021-06-08] MEDS: CLOPIDOGREL 75 MG TAB PO SCH (08:31)
[2021-06-08] MEDS: OMEPRAZOLE 20MG CAP PO SCH (08:32)
[2021-06-08] MEDS: NEOSPORIN TOP OINT 15GM TOP SCH ×2 (08:32→20:35)
[2021-06-08] MEDS: CARVedilol 6.25 MG TAB PO SCH ×2 (08:32→20:33)
[2021-06-08] MEDS: ATORVASTATIN 20 MG TAB PO SCH (08:32)
[2021-06-08 13:40] VITALS: BP 115/60
[2021-06-08] MEDS: WARFARIN SOD 3MG TAB PO SCH ×2 (17:00→17:01)
[2021-06-08] MEDS: ACETAMINOPHEN 500 MG TAB PO PRN (20:35)
[2021-06-09] MEDS: FUROSEMIDE 100MG/10ML VIAL (J1940) IV SCH ×3 (01:46→17:28)
[2021-06-09] MEDS: IPRATROPIUM 0.5MG/ALBUTEROL 2.5MG INH SOL UD 3ML (DUONEB) NEB SCH ×4 (02:00→19:34)
[2021-06-09 06:03] VITALS: BP 137/55
[2021-06-09 06:10] LABS: HEMATOCRIT 34.6 % (36.0-47.0); HEMOGLOBIN 11.2 g/dl (12.0-15.5); MEAN CORPUSCULAR HEMOGLOBIN 29.4 pg (27.0-33.0); MEAN CORPUSCULAR HGB CONC 32.4 g/dl (32.0-36.5); MEAN CORPUSCULAR VOLUME 90.8 fl (80.0-96.0); PLATELET COUNT, AUTOMATED 176 10^3/uL (150-450); RED BLOOD COUNT 3.81 10^6/uL (4.00-5.40); WHITE BLOOD COUNT 9.7 10^3/uL (4.0-10.0)
[2021-06-09] MEDS: LEVOTHYROXINE 100MCG TABLET (0.1MG) PO SCH (06:18)
[2021-06-09 06:24] LABS: C REACTIVE PROTEIN QUANTITATIV 2.34 MG/DL (0.00-0.30); CALCIUM LEVEL 8.6 MG/DL (8.8-10.2); CREATININE FOR GFR 1.75 MG/DL (0.55-1.30); GLOMERULAR FILTRATION RATE 29.7 (>32); POTASSIUM SERUM 3.9 MEQ/L (3.5-5.1)
[2021-06-09 06:29] LABS: INR 1.42; PROTHROMBIN TIME 17.8 SECONDS (12.7-14.5)
[2021-06-09] MEDS: HumaLOG INSULIN (NovoLOG) PER UNIT SC SCH ×4 (08:14→21:27)
[2021-06-09] MEDS: busPIRone 5 MG TAB PO SCH ×2 (08:15→21:28)
[2021-06-09] MEDS: ASPIRIN 81 MG CHEW TABLET PO SCH (08:15)
[2021-06-09] MEDS: OMEPRAZOLE 20MG CAP PO SCH (08:15)
[2021-06-09] MEDS: allopurinoL 100 MG TAB PO SCH ×2 (08:15→21:27)
[2021-06-09] MEDS: CLOPIDOGREL 75 MG TAB PO SCH (08:15)
[2021-06-09] MEDS: FERROUS SULFATE 325MG TAB PO SCH ×2 (08:15→21:27)
[2021-06-09] MEDS: PREGABALIN 75 MG CAP(LYRICA) PO SCH ×2 (08:15→21:45)
[2021-06-09] MEDS: ATORVASTATIN 20 MG TAB PO SCH (08:15)
[2021-06-09] MEDS: CARVedilol 6.25 MG TAB PO SCH ×2 (08:16→21:00)
[2021-06-09] MEDS: NEOSPORIN TOP OINT 15GM TOP SCH ×2 (08:17→21:46)
[2021-06-09 11:07] LABS: ABG HCO3 35.4 MEQ/L (22.0-26.0); ABG O2 SATURATION 85.3 % (95.0-99.0); ABG PARTIAL PRESSURE CO2 57.6 mmHg (35.0-45.0); ABG PARTIAL PRESSURE O2 52.5 mmHg (75.0-100.0); ABG STANDARD HCO3 32.5 MEQ/L (22.0-26.0); ABG TOTAL CO2 37.2 MEQ/L (23.0-31.0); ABG pH (ARTERIAL) 7.407 UNITS (7.350-7.450)
[2021-06-09] MEDS: VANCOMYCIN HCL 750 MG, VIAL MATE ADAPTER 1 EACH in NS 250 ML IV SCH (11:08)
[2021-06-09 14:00] VITALS: BP 141/66
[2021-06-09] MEDS: WARFARIN SOD 4MG TAB PO SCH (17:00)
[2021-06-10] MEDS: IPRATROPIUM 0.5MG/ALBUTEROL 2.5MG INH SOL UD 3ML (DUONEB) NEB SCH ×4 (02:00→20:47)
[2021-06-10] MEDS: FUROSEMIDE 100MG/10ML VIAL (J1940) IV SCH ×3 (02:39→17:11)
[2021-06-10 04:00] VITALS: BP 125/90
[2021-06-10] MEDS: LEVOTHYROXINE 100MCG TABLET (0.1MG) PO SCH (06:22)
[2021-06-10 06:38] LABS: HEMATOCRIT 35.3 % (36.0-47.0); HEMOGLOBIN 11.4 g/dl (12.0-15.5); MEAN CORPUSCULAR HEMOGLOBIN 29.2 pg (27.0-33.0); MEAN CORPUSCULAR HGB CONC 32.3 g/dl (32.0-36.5); MEAN CORPUSCULAR VOLUME 90.5 fl (80.0-96.0); PLATELET COUNT, AUTOMATED 193 10^3/uL (150-450); WHITE BLOOD COUNT 12.1 10^3/uL (4.0-10.0)
[2021-06-10 07:00] LABS: INR 1.42; PROTHROMBIN TIME 17.8 SECONDS (12.7-14.5)
[2021-06-10 07:04] LABS: CALCIUM LEVEL 8.7 MG/DL (8.8-10.2); CREATININE FOR GFR 1.71 MG/DL (0.55-1.30); GLOMERULAR FILTRATION RATE 30.5 (>32); POTASSIUM SERUM 4.1 MEQ/L (3.5-5.1)
[2021-06-10] MEDS: HumaLOG INSULIN (NovoLOG) PER UNIT SC SCH ×4 (08:01→21:00)
[2021-06-10] MEDS: CLOPIDOGREL 75 MG TAB PO SCH (08:59)
[2021-06-10] MEDS: busPIRone 5 MG TAB PO SCH ×2 (08:59→20:47)
[2021-06-10] MEDS: ASPIRIN 81 MG CHEW TABLET PO SCH (08:59)
[2021-06-10] MEDS: allopurinoL 100 MG TAB PO SCH ×2 (08:59→20:48)
[2021-06-10] MEDS: ATORVASTATIN 20 MG TAB PO SCH (08:59)
[2021-06-10] MEDS: FERROUS SULFATE 325MG TAB PO SCH ×2 (08:59→20:48)
[2021-06-10] MEDS: PREGABALIN 75 MG CAP(LYRICA) PO SCH ×2 (08:59→20:48)
[2021-06-10] MEDS: OMEPRAZOLE 20MG CAP PO SCH (09:00)
[2021-06-10] MEDS: CARVedilol 6.25 MG TAB PO SCH ×3 (09:00→20:50)
[2021-06-10] MEDS: NEOSPORIN TOP OINT 15GM TOP SCH (09:00)
[2021-06-10 14:00] VITALS: BP 104/67
[2021-06-10] MEDS: WARFARIN SOD 4MG TAB PO SCH (17:11)
[2021-06-10 20:00] VITALS: BP 107/68
[2021-06-11] MEDS: FUROSEMIDE 100MG/10ML VIAL (J1940) IV SCH ×3 (01:52→17:31)
[2021-06-11] MEDS: IPRATROPIUM 0.5MG/ALBUTEROL 2.5MG INH SOL UD 3ML (DUONEB) NEB SCH ×4 (01:52→21:33)
[2021-06-11] MEDS: NEOSPORIN TOP OINT 15GM TOP SCH ×2 (01:53→09:48)
[2021-06-11 04:00] VITALS: BP 164/55
[2021-06-11] MEDS: LEVOTHYROXINE 100MCG TABLET (0.1MG) PO SCH (05:28)
[2021-06-11 05:54] LABS: HEMATOCRIT 36.2 % (36.0-47.0); HEMOGLOBIN 11.7 g/dl (12.0-15.5); MEAN CORPUSCULAR HEMOGLOBIN 29.9 pg (27.0-33.0); MEAN CORPUSCULAR HGB CONC 32.3 g/dl (32.0-36.5); MEAN CORPUSCULAR VOLUME 92.6 fl (80.0-96.0); PLATELET COUNT, AUTOMATED 172 10^3/uL (150-450); RED BLOOD COUNT 3.91 10^6/uL (4.00-5.40); WHITE BLOOD COUNT 11.8 10^3/uL (4.0-10.0)
[2021-06-11 06:02] LABS: INR 1.3; PROTHROMBIN TIME 16.6 SECONDS (12.7-14.5)
[2021-06-11 06:11] LABS: CALCIUM LEVEL 8.6 MG/DL (8.8-10.2); CREATININE FOR GFR 1.89 MG/DL (0.55-1.30); GLOMERULAR FILTRATION RATE 27.2 (>32); POTASSIUM SERUM 3.9 MEQ/L (3.5-5.1)
[2021-06-11] MEDS: HumaLOG INSULIN (NovoLOG) PER UNIT SC SCH ×4 (09:42→20:55)
[2021-06-11] MEDS: ATORVASTATIN 20 MG TAB PO SCH (09:43)
[2021-06-11] MEDS: OMEPRAZOLE 20MG CAP PO SCH (09:43)
[2021-06-11] MEDS: ASPIRIN 81 MG CHEW TABLET PO SCH (09:43)
[2021-06-11] MEDS: PREGABALIN 75 MG CAP(LYRICA) PO SCH ×2 (09:43→20:55)
[2021-06-11] MEDS: busPIRone 5 MG TAB PO SCH ×2 (09:44→20:55)
[2021-06-11] MEDS: CARVedilol 6.25 MG TAB PO SCH ×2 (09:44→20:57)
[2021-06-11] MEDS: allopurinoL 100 MG TAB PO SCH ×2 (09:45→20:55)
[2021-06-11] MEDS: CLOPIDOGREL 75 MG TAB PO SCH (09:45)
[2021-06-11] MEDS: FERROUS SULFATE 325MG TAB PO SCH ×2 (09:45→20:55)
[2021-06-11] MEDS: VANCOMYCIN HCL 750 MG, VIAL MATE ADAPTER 1 EACH in NS 250 ML IV SCH (09:46)
[2021-06-11] MEDS ORDERED: VANCOMYCIN HCL 500 MG in D5W MINI-BAG PLUS 100 ML IV SCH (11:00)
[2021-06-11 14:00] VITALS: BP 123/57
[2021-06-11] MEDS: WARFARIN SOD 4MG TAB PO SCH (17:32)
[2021-06-11] MEDS: ACETAMINOPHEN 500 MG TAB PO PRN (20:55)
[2021-06-11 21:14] VITALS: BP 127/57
[2021-06-12] MEDS: IPRATROPIUM 0.5MG/ALBUTEROL 2.5MG INH SOL UD 3ML (DUONEB) NEB SCH ×4 (02:00→20:34)
[2021-06-12] MEDS: FUROSEMIDE 100MG/10ML VIAL (J1940) IV SCH ×3 (02:41→17:19)
[2021-06-12] MEDS: LEVOTHYROXINE 100MCG TABLET (0.1MG) PO SCH (04:19)
[2021-06-12 06:00] VITALS: BP 126/58
[2021-06-12] MEDS: HumaLOG INSULIN (NovoLOG) PER UNIT SC SCH ×4 (07:30→20:27)
[2021-06-12 07:38] LABS: HEMATOCRIT 34.5 % (36.0-47.0); HEMOGLOBIN 11.3 g/dl (12.0-15.5); MEAN CORPUSCULAR HEMOGLOBIN 29.7 pg (27.0-33.0); MEAN CORPUSCULAR HGB CONC 32.8 g/dl (32.0-36.5); MEAN CORPUSCULAR VOLUME 90.6 fl (80.0-96.0); PLATELET COUNT, AUTOMATED 149 10^3/uL (150-450); RED BLOOD COUNT 3.81 10^6/uL (4.00-5.40); WHITE BLOOD COUNT 9.9 10^3/uL (4.0-10.0)
[2021-06-12 07:55] LABS: CALCIUM LEVEL 8.7 MG/DL (8.8-10.2); CREATININE FOR GFR 1.85 MG/DL (0.55-1.30); GLOMERULAR FILTRATION RATE 27.9 (>32); POTASSIUM SERUM 3.8 MEQ/L (3.5-5.1)
[2021-06-12] MEDS: FERROUS SULFATE 325MG TAB PO SCH ×2 (09:00→20:26)
[2021-06-12] MEDS: OMEPRAZOLE 20MG CAP PO SCH (09:00)
[2021-06-12] MEDS: CLOPIDOGREL 75 MG TAB PO SCH (09:00)
[2021-06-12] MEDS: ATORVASTATIN 20 MG TAB PO SCH (09:00)
[2021-06-12] MEDS: CARVedilol 6.25 MG TAB PO SCH ×2 (09:00→20:26)
[2021-06-12] MEDS: busPIRone 5 MG TAB PO SCH ×2 (09:00→20:26)
[2021-06-12] MEDS: allopurinoL 100 MG TAB PO SCH ×2 (09:00→20:26)
[2021-06-12] MEDS: PREGABALIN 75 MG CAP(LYRICA) PO SCH ×2 (09:00→20:26)
[2021-06-12] MEDS: ASPIRIN 81 MG CHEW TABLET PO SCH (09:00)
[2021-06-12 10:28] VITALS: BP 130/61
[2021-06-12 14:00] VITALS: BP 131/52
[2021-06-12 14:51] VITALS: BP 123/50
[2021-06-12] MEDS ORDERED: FUROSEMIDE 40MG/4ML VIAL (J1940) IV ONE (15:00)
[2021-06-12] MEDS: WARFARIN SOD 4MG TAB PO SCH (17:01)
[2021-06-12 17:08] VITALS: BP 119/50
[2021-06-12] MEDS ORDERED: SODIUM CHLORIDE NASAL 0.65% SPRAY BTL (OCEAN) PRN (20:05)
[2021-06-12] MEDS: ACETAMINOPHEN 500 MG TAB PO PRN (20:26)
[2021-06-12 22:00] VITALS: BP 143/77
[2021-06-13] VITALS (8 sets, daily range): BP systolic 101–154; BP diastolic 53–66
[2021-06-13] MEDS: FUROSEMIDE 100MG/10ML VIAL (J1940) IV SCH ×2 (01:48→09:09)
[2021-06-13] MEDS: IPRATROPIUM 0.5MG/ALBUTEROL 2.5MG INH SOL UD 3ML (DUONEB) NEB SCH ×4 (02:00→20:03)
[2021-06-13] MEDS: ACETAMINOPHEN 500 MG TAB PO PRN (03:52)
[2021-06-13] MEDS ORDERED: methylPREDNISolone 125MG 2ML VIAL IV ONE (04:10)
[2021-06-13] MEDS: LEVOTHYROXINE 100MCG TABLET (0.1MG) PO SCH (05:29)
[2021-06-13] MEDS: MORPHINE 2 MG/ML 1ML VIAL (J2270) IV PRN ×2 (06:50→21:37)
[2021-06-13 06:54] LABS: ABG BASE EXCESS 8.3 (-2.0-2.0); ABG HCO3 34.8 MEQ/L (22.0-26.0); ABG O2 SATURATION 89.5 % (95.0-99.0); ABG PARTIAL PRESSURE CO2 56.3 mmHg (35.0-45.0); ABG PARTIAL PRESSURE O2 59.6 mmHg (75.0-100.0); ABG STANDARD HCO3 31.9 MEQ/L (22.0-26.0); ABG TOTAL CO2 36.5 MEQ/L (23.0-31.0); ABG pH (ARTERIAL) 7.409 UNITS (7.350-7.450)
[2021-06-13 07:00] LABS: HEMATOCRIT 38.5 % (36.0-47.0); HEMOGLOBIN 12.4 g/dl (12.0-15.5); MEAN CORPUSCULAR HEMOGLOBIN 29.5 pg (27.0-33.0); MEAN CORPUSCULAR HGB CONC 32.2 g/dl (32.0-36.5); MEAN CORPUSCULAR VOLUME 91.4 fl (80.0-96.0); PLATELET COUNT, AUTOMATED 182 10^3/uL (150-450); RED BLOOD COUNT 4.21 10^6/uL (4.00-5.40); WHITE BLOOD COUNT 15.5 10^3/uL (4.0-10.0)
[2021-06-13 07:28] LABS: CALCIUM LEVEL 9.2 MG/DL (8.8-10.2); CREATININE FOR GFR 2.04 MG/DL (0.55-1.30); GLOMERULAR FILTRATION RATE 24.9 (>32); POTASSIUM SERUM 4.5 MEQ/L (3.5-5.1)
[2021-06-13 07:29] LABS: MB/CK RELATIVE INDEX 1.12 (< OR =4)
[2021-06-13] MEDS: HumaLOG INSULIN (NovoLOG) PER UNIT SC SCH ×4 (08:51→21:37)
[2021-06-13] MEDS: ATORVASTATIN 20 MG TAB PO SCH (08:52)
[2021-06-13] MEDS: busPIRone 5 MG TAB PO SCH ×2 (08:52→21:36)
[2021-06-13] MEDS: FERROUS SULFATE 325MG TAB PO SCH ×2 (08:52→21:36)
[2021-06-13] MEDS: CLOPIDOGREL 75 MG TAB PO SCH (08:52)
[2021-06-13] MEDS: ASPIRIN 81 MG CHEW TABLET PO SCH (08:52)
[2021-06-13] MEDS: OMEPRAZOLE 20MG CAP PO SCH (08:52)
[2021-06-13] MEDS: PREGABALIN 75 MG CAP(LYRICA) PO SCH ×2 (08:52→21:36)
[2021-06-13] MEDS: CARVedilol 6.25 MG TAB PO SCH ×2 (08:56→21:36)
[2021-06-13] MEDS: allopurinoL 100 MG TAB PO SCH ×2 (09:01→21:36)
[2021-06-13 10:06] LABS: INR 2.1
[2021-06-13] MEDS: methylPREDNISolone 125MG 2ML VIAL IV SCH (16:09)
[2021-06-13] MEDS: WARFARIN SOD 4MG TAB PO SCH (17:44)
[2021-06-13] MEDS: FUROSEMIDE 40MG/4ML VIAL (J1940) IV SCH (17:44)
[2021-06-14] VITALS (10 sets, daily range): BP systolic 125–141; BP diastolic 56–60; O2SAT 90–97
[2021-06-14] MEDS: FUROSEMIDE 40MG/4ML VIAL (J1940) IV SCH ×3 (01:04→16:51)
[2021-06-14] MEDS: IPRATROPIUM 0.5MG/ALBUTEROL 2.5MG INH SOL UD 3ML (DUONEB) NEB SCH ×4 (01:09→19:27)
[2021-06-14] MEDS: methylPREDNISolone 125MG 2ML VIAL IV SCH ×2 (04:29→16:06)
[2021-06-14] MEDS: LEVOTHYROXINE 100MCG TABLET (0.1MG) PO SCH (05:53)
[2021-06-14 06:18] LABS: BASO % 0.1 % (0.0-1.0); HEMATOCRIT 34.3 % (36.0-47.0); HEMOGLOBIN 10.8 g/dl (12.0-15.5); LYMPH # 0.6 10^3/uL (1.5-5.0); LYMPH % 6.8 % (24.0-44.0); MEAN CORPUSCULAR HEMOGLOBIN 29.5 pg (27.0-33.0); MEAN CORPUSCULAR HGB CONC 31.5 g/dl (32.0-36.5); MEAN CORPUSCULAR VOLUME 93.7 fl (80.0-96.0); MONO # 0.1 10^3/uL (0.0-0.8); MONO % 1.5 % (2.0-8.0); NEUTROPHILS # 8.7 10^3/uL (1.5-8.5); NEUTROPHILS % 91.2 % (36.0-66.0); PLATELET COUNT, AUTOMATED 145 10^3/uL (150-450); RED BLOOD COUNT 3.66 10^6/uL (4.00-5.40); WHITE BLOOD COUNT 9.5 10^3/uL (4.0-10.0)
[2021-06-14 06:29] LABS: INR 3.01; PROTHROMBIN TIME 31.5 SECONDS (12.7-14.5)
[2021-06-14 06:44] LABS: ALBUMIN 2.7 GM/DL (3.2-5.2); BILIRUBIN,TOTAL 0.7 MG/DL (0.2-1.0); CREATININE FOR GFR 2.28 MG/DL (0.55-1.30); GLOMERULAR FILTRATION RATE 21.9 (>32); POTASSIUM SERUM 4.4 MEQ/L (3.5-5.1)
[2021-06-14] MEDS: HumaLOG INSULIN (NovoLOG) PER UNIT SC SCH ×4 (09:13→20:17)
[2021-06-14] MEDS: ASPIRIN 81 MG CHEW TABLET PO SCH (09:14)
[2021-06-14] MEDS: ATORVASTATIN 20 MG TAB PO SCH (09:14)
[2021-06-14] MEDS: busPIRone 5 MG TAB PO SCH ×2 (09:14→20:18)
[2021-06-14] MEDS: FERROUS SULFATE 325MG TAB PO SCH ×2 (09:14→20:18)
[2021-06-14] MEDS: allopurinoL 100 MG TAB PO SCH ×2 (09:15→20:23)
[2021-06-14] MEDS: CLOPIDOGREL 75 MG TAB PO SCH (09:15)
[2021-06-14] MEDS: PREGABALIN 75 MG CAP(LYRICA) PO SCH ×2 (09:15→20:18)
[2021-06-14] MEDS: CARVedilol 6.25 MG TAB PO SCH ×2 (09:15→20:18)
[2021-06-14] MEDS: OMEPRAZOLE 20MG CAP PO SCH (09:15)
[2021-06-14] MEDS ORDERED: LEVEMIR (INSULIN DETEMIR) 1 UNITS/0.01ML SC SCH (21:00)
[2021-06-14] MEDS: ACETAMINOPHEN 500 MG TAB PO PRN (21:31)
[2021-06-15] VITALS (12 sets, daily range): BP systolic 121–142; BP diastolic 56–97; O2SAT 96–98
[2021-06-15] MEDS: FUROSEMIDE 40MG/4ML VIAL (J1940) IV SCH (01:09)
[2021-06-15] MEDS: IPRATROPIUM 0.5MG/ALBUTEROL 2.5MG INH SOL UD 3ML (DUONEB) NEB SCH ×3 (01:34→14:00)
[2021-06-15] MEDS: methylPREDNISolone 125MG 2ML VIAL IV SCH ×2 (03:06→16:00)
[2021-06-15 04:53] LABS: BASO % 0.1 % (0.0-1.0); EOS % 0.4 % (0.0-3.0); HEMATOCRIT 34.5 % (36.0-47.0); LYMPH # 0.4 10^3/uL (1.5-5.0); LYMPH % 4.8 % (24.0-44.0); MEAN CORPUSCULAR HEMOGLOBIN 29.6 pg (27.0-33.0); MEAN CORPUSCULAR HGB CONC 31.9 g/dl (32.0-36.5); MONO # 0.2 10^3/uL (0.0-0.8); MONO % 2.7 % (2.0-8.0); NEUTROPHILS # 7.2 10^3/uL (1.5-8.5); NEUTROPHILS % 91.2 % (36.0-66.0); PLATELET COUNT, AUTOMATED 122 10^3/uL (150-450); RED BLOOD COUNT 3.71 10^6/uL (4.00-5.40); WHITE BLOOD COUNT 7.9 10^3/uL (4.0-10.0)
[2021-06-15 05:03] LABS: INR 4.5; PROTHROMBIN TIME 42.9 SECONDS (12.7-14.5)
[2021-06-15] MEDS: LEVOTHYROXINE 100MCG TABLET (0.1MG) PO SCH (05:05)
[2021-06-15 05:19] LABS: ALBUMIN 2.7 GM/DL (3.2-5.2); BILIRUBIN,TOTAL 0.5 MG/DL (0.2-1.0); CALCIUM LEVEL 8.4 MG/DL (8.8-10.2); CREATININE FOR GFR 2.54 MG/DL (0.55-1.30); GLOMERULAR FILTRATION RATE 19.3 (>32); POTASSIUM SERUM 4.4 MEQ/L (3.5-5.1); TOTAL PROTEIN 6.8 GM/DL (6.4-8.2)
[2021-06-15] MEDS: FERROUS SULFATE 325MG TAB PO SCH (09:00)
[2021-06-15] MEDS: CARVedilol 6.25 MG TAB PO SCH (09:00)
[2021-06-15] MEDS: PREGABALIN 75 MG CAP(LYRICA) PO SCH (09:00)
[2021-06-15] MEDS: OMEPRAZOLE 20MG CAP PO SCH (09:00)
[2021-06-15] MEDS: busPIRone 5 MG TAB PO SCH (09:00)
[2021-06-15] MEDS: ASPIRIN 81 MG CHEW TABLET PO SCH (09:00)
[2021-06-15] MEDS: ATORVASTATIN 20 MG TAB PO SCH (09:00)
[2021-06-15] MEDS: CLOPIDOGREL 75 MG TAB PO SCH (09:00)
[2021-06-15] MEDS: allopurinoL 100 MG TAB PO SCH (09:00)
[2021-06-15] MEDS: HumaLOG INSULIN (NovoLOG) PER UNIT SC SCH ×3 (10:03→17:30)
[2021-06-15] MEDS ORDERED: FUROSEMIDE injection 250 MG in D5W 225 ML IV SCH ×2 (12:00→12:40)
[2021-06-15 12:42] LABS: ABG BASE EXCESS 7.6 (-2.0-2.0); ABG HCO3 34.2 MEQ/L (22.0-26.0); ABG O2 SATURATION 93.4 % (95.0-99.0); ABG PARTIAL PRESSURE CO2 57.8 mmHg (35.0-45.0); ABG PARTIAL PRESSURE O2 71.1 mmHg (75.0-100.0); ABG STANDARD HCO3 31.3 MEQ/L (22.0-26.0)
[2021-06-15] MEDS ORDERED: SCOPOLAMINE 1MG TRANSDERMAL PATCH TOP PRN (15:35)
[2021-06-15] MEDS: MORPHINE 10MG/0.5ML ORAL CONCENTRATE SOLUTION U/D SL PRN (16:45)
[2021-06-15] MEDS ORDERED: WARFARIN SOD 3MG TAB PO SCH (17:00)
[2021-06-15] MEDS: LORazepam 2 MG/ML VIAL IV PRN (17:30)
[2021-06-16] MEDS: LORazepam 2 MG/ML VIAL IV PRN (13:57)
[2021-06-16] MEDS: MORPHINE 10MG/0.5ML ORAL CONCENTRATE SOLUTION U/D SL PRN (23:28)
[2021-06-17] MEDS: LORazepam 2 MG/ML VIAL IV PRN ×3 (00:59→17:55)
[2021-06-17] MEDS: MORPHINE 10MG/0.5ML ORAL CONCENTRATE SOLUTION U/D SL PRN ×3 (02:14→22:44)
== END 2021-06-17 23:38 | disposition expired | DRG 616 ==
LOC: M ED 14:05 → M ED INP 20:31 → EEVIPCON 20:31 → M MSPAV 22:44 → M PCU 05-31 19:46 → M MS5PR 06-07 16:15 → M PCU 06-13 05:21 → M MSPAV 06-15 18:12
PROVIDERS: ADMIT Internal Medicine; ATTEND Internal Medicine
PROC: 0Y6Q0Z0 Detachment at Left 1st Toe, Complete, Open Approach (ICD-10-PCS; principal; 2021-05-29 17:30)
DX: E11.69 Type 2 diabetes mellitus with other specified complication (principal); I50.23 Acute on chronic systolic (congestive) heart failure; J96.01 Acute respiratory failure with hypoxia; N39.0 Urinary tract infection, site not specified; E87.4 Mixed disorder of acid-base balance; M86.172 Other acute osteomyelitis, left ankle and foot; L97.929 Non-pressure chronic ulcer of unspecified part of left lower leg with unspecified severity; R78.81 Bacteremia; J44.1 Chronic obstructive pulmonary disease with (acute) exacerbation; I13.0 Hypertensive heart and chronic kidney disease with heart failure and stage 1 through stage 4 chronic kidney disease, or unspecified chronic kidney disease; N17.9 Acute kidney failure, unspecified; L03.032 Cellulitis of left toe; B95.62 Methicillin resistant Staphylococcus aureus infection as the cause of diseases classified elsewhere; I25.10 Atherosclerotic heart disease of native coronary artery without angina pectoris; Z95.2 Presence of prosthetic heart valve; I48.91 Unspecified atrial fibrillation; Z95.0 Presence of cardiac pacemaker; E78.5 Hyperlipidemia, unspecified; Z51.5 Encounter for palliative care; Z79.899 Other long term (current) drug therapy; Z79.82 Long term (current) use of aspirin; Z88.0 Allergy status to penicillin; I27.20 Pulmonary hypertension, unspecified; G47.33 Obstructive sleep apnea (adult) (pediatric); I27.81 Cor pulmonale (chronic); E03.9 Hypothyroidism, unspecified; Z66 Do not resuscitate; Z86.73 Personal history of transient ischemic attack (TIA), and cerebral infarction without residual deficits; F41.9 Anxiety disorder, unspecified; E11.649 Type 2 diabetes mellitus with hypoglycemia without coma; N18.4 Chronic kidney disease, stage 4 (severe)